=== PATIENT | female | born 1955 | race Caucasian/White ===

== ENCOUNTER 2022-09-27 15:26 | Inpatient (IN) | payer MEDICARE, BC, SELFPAY ==
[2022-09-27] VITALS (8 sets, daily range): BP systolic 96–122; BP diastolic 49–66; PULSE 67–82; RESP 16–19; TEMP 36.7–38.1; O2SAT 95–99; BMI 39.4; BMI 51.1
--- NOTE | 2022-09-27 15:40 | PC.NURSE ---
pt arrived by EMS to ED room 6 via EMS stretcher; upon moving patient to ED stretcher, pt was founf to be on a bedpan that [facility] placed and the patient reports, Evelyn been on it all day. Bedpan was removed. ANGELIQUE Jones and Charge Nurse, Maggie Parra are aware and will assess patients skin shortly. Call carmen within reach
--- NOTE | 2022-09-27 15:43 | PC.NURSE ---
Dr. Gaston at [facility] for patient eval
--- NOTE | 2022-09-27 15:49 | XR_ITS ---
PROCEDURE INFORMATION: Exam: XR Chest Exam date and time: 09/27/2022 4:44 PM Age: 67 years old Clinical indication: Shortness of breath; Additional info: SOA TECHNIQUE: Imaging protocol: Radiologic exam of the chest. Views: 1 view. COMPARISON: CT ABDOMEN PELVIS W CON 09/27/2022 4:35 PM FINDINGS: Lungs: Unremarkable. No consolidation. Pleural spaces: Unremarkable. No pleural effusion. No pneumothorax. Heart/Mediastinum: Unremarkable. No cardiomegaly. Diaphragm: There is elevation of the right hemidiaphragm. Bones/joints: There is diffuse degenerative disease of the visualized osseous structures. IMPRESSION: No acute pathology.
--- NOTE | 2022-09-27 15:49 | CT_ITS ---
PROCEDURE INFORMATION: Exam: CT Abdomen And Pelvis With Contrast Exam date and time: 09/27/2022 4:35 PM Age: 67 years old Clinical indication: Abdominal pain; Additional info: Low abdominal pain, unknown bm status, altered TECHNIQUE: Imaging protocol: Computed tomography of the abdomen and pelvis with contrast. Radiation optimization: All CT scans at this facility use at least one of these dose optimization techniques: automated exposure control; mA and/or kV adjustment per patient size (includes targeted exams where dose is matched to clinical indication); or iterative reconstruction. Contrast material: ISOVUE; Contrast volume: 75 ml; Contrast route: IV; REPORTING DATA: Count of CT and Cardiac NM exams in prior 12 months: This patient has received 0 known CTs and 0 known cardiac nuclear medicine studies in the 12 months prior to the current study. COMPARISON: No relevant prior studies available. FINDINGS: Coronary arteries: There is mild coronary vascular calcification. Liver: Normal. No mass. Gallbladder and bile ducts: There is a large volume of stones within an otherwise normal-appearing gallbladder. Pancreas: Normal. No ductal dilation. Spleen: Normal. No splenomegaly. Adrenal glands: Normal. No mass. Kidneys and ureters: There are large nonobstructing right lower pole intrarenal calculi. There is mild left renal atrophy. Stomach and bowel: Unremarkable. No obstruction. No mucosal thickening. Appendix: No evidence of appendicitis. Intraperitoneal space: Unremarkable. No free air. No significant fluid collection. Vasculature: There is atherosclerotic disease of the visualized aorta and its major branch vessels. Lymph nodes: Unremarkable. No enlarged lymph nodes. Urinary bladder: Unremarkable as visualized. Reproductive: Unremarkable as visualized. Bones/joints: There is diffuse degenerative disease of the visualized osseous structures. Soft tissues: There is diffuse anasarca. There are surgical tacks in the ventral abdominal wall from presumed prior hernia repair. There is a large fat containing ventral abdominal wall hernia inferior to mesh. IMPRESSION: No acute findings. Extensive incidental findings as detailed above.
--- NOTE | 2022-09-27 15:51 | HMH.EDGENADL ---
Discharge Plan Disposition Patient Disposition: Admitted Condition: Fair Prescriptions Prescriptions: No Action metoprolol succinate 50 mg tablet extended release 24 hr 50 mg PO DAILY tramadol 50 mg tablet 50 mg PO Q6HP PRN (Reason: Pain) potassium chloride 20 mEq tablet,ER particles/crystals 20 meq PO DAILY famotidine 20 mg tablet 20 mg PO DAILY furosemide 80 mg tablet 80 mg PO BID meclizine 25 mg tablet 25 mg PO DAILY simvastatin 20 mg tablet 20 mg PO DAILY nystatin [Nyamyc] 100,000 unit/gram powder 1 applic TOPICAL DAILYP PRN (Reason: skin ) nortriptyline 50 mg capsule 50 mg PO HS duloxetine 60 mg capsule,delayed release(DR/EC) 60 mg PO DAILY Eliquis 5 mg tablet 5 mg PO BID sennosides-docusate sodium [Senna-S] 8.6-50 mg Tablet 1 tab-cap PO HS Januvia 50 mg tablet 50 mg PO DAILY Referrals Follow up/Referrals: Fausto Fry MD [Primary Care Provider] - See instructions Clinical Impressions Clinical Impression: Sepsis secondary to UTI, Encephalopathy Discharge ED Provider: Bryson Gaston General Adult HPI General Chief complaint: Shortness of Breath/Dyspnea Stated complaint: SOA Time Seen by Provider: 09/27/22 15:43 Mode of Arrival: EMS Source of Information: Patient and EMS Limitations: No Limitations Description of Symptoms (Recalled from ER Triage Doc. by RN): 67 [facility] F [facility] EMS reprots they were called to facilty for pt not keeping oxygen on and being cyanotic. pts confused and unable to give accurate information. upon arrival pt does appear hypoxic. pt on 4L nc , but decreased to 2L nc with assessment. History of Present Illness HPI narrative: Patient is a 67-year-old female with past medical history of dementia, anticoagulated status, on furosemide and beta-blockers, largely unknown past medical history presents the emergency department for evaluation of lower abdominal pain and shortness of breath. History is obtained largely by EMS report as patient is pleasantly confused. Patient lives in an assisted living community however normally completes her activities of daily living. She was recently diagnosed with a urinary tract infection however has not initiated antibiotic therapy yet. Today patient was found to be hypoxic 81 to 91%. However at baseline she does wear 2 L nasal cannula and EMS noticed that her oxygen concentrator was disconnected. And route patient had oxygen saturations greater than 90% on 2 L nasal cannula. Patient is complaining of lower abdominal pain in the suprapubic area. States that she has a cough of unknown duration. Denies other acute complaints at this time. History is limited by intermittent confusion. When asking assisted living staff they state that she is intermittently confused at baseline however also state that she is alert and oriented. After contacting primary care facility patient has history of hypertensive heart disease, wears 2 L nasal cannula at baseline, was reportedly diagnosed a urinary tract infection approximately 3 days ago for which she has yet to complete therapy. On blood thinner for atrial fibrillation. Related Data Home Medications Medication Instructions Recorded Confirmed apixaban 5 mg tablet (Eliquis) 5 mg PO BID afib- blood thinner 09/27/22 09/27/22 duloxetine 60 mg capsule,delayed 60 mg PO DAILY mood 09/27/22 09/27/22 release famotidine 20 mg tablet 20 mg PO DAILY gerd 09/27/22 09/27/22 furosemide 80 mg tablet 80 mg PO BID Heart Failure 09/27/22 09/27/22 meclizine 25 mg tablet 25 mg PO DAILY vertigo 09/27/22 09/27/22 metoprolol succinate 50 mg 50 mg PO DAILY High Blood Pressure 09/27/22 09/27/22 tablet,extended release 24 hr nortriptyline 50 mg capsule 50 mg PO HS sleep 09/27/22 09/27/22 nystatin 100,000 unit/gram topical 1 applic topical DAILYP PRN skin 09/27/22 09/27/22 powder ([facility]) potassium chloride
--- NOTE | 2022-09-27 15:53 | CT_ITS ---
PROCEDURE INFORMATION: Exam: CT Head Without Contrast Exam date and time: 09/27/2022 4:33 PM Age: 67 years old Clinical indication: Altered mental status/memory loss; Additional info: Encephalopathy, AMS TECHNIQUE: Imaging protocol: Computed tomography of the head without contrast. Radiation optimization: All CT scans at this facility use at least one of these dose optimization techniques: automated exposure control; mA and/or kV adjustment per patient size (includes targeted exams where dose is matched to clinical indication); or iterative reconstruction. REPORTING DATA: Count of CT and Cardiac NM exams in prior 12 months: This patient has received 0 known CTs and 0 known cardiac nuclear medicine studies in the 12 months prior to the current study. COMPARISON: No relevant prior studies available. FINDINGS: Brain: Prominent sulci. Patchy hypodensity of the cerebral white matter which are nonspecific but likely secondary to microangiopathic changes. Cerebral ventricles: The ventricles are prominent secondary to diffuse volume loss/atrophy. Paranasal sinuses: Visualized sinuses are unremarkable. No fluid levels. Mastoid air cells: Visualized mastoid air cells are well aerated. Bones/joints: Unremarkable. No acute fracture. Soft tissues: Unremarkable. IMPRESSION: Chronic age related changes but no evidence of acute intracranial pathology.
[2022-09-27 15:56] LABS: VBG Base Excess 4.8 mmol/L (-2.4-2.3); VBG HCO3 30.3 mmol/L (23-30); VBG Oxygen Saturation 95.5 % (50-70); VBG PH 7.36 mmol/L (7.31-7.41); VBG PO2 85.6 mmol/L (28-40)
[2022-09-27 16:07] LABS: Basophils # 0.1 K/mm3 (0-0.2); Basophils % 0.3 % (0.1-2.0); Eosinophils # 0.1 K/mm3 (0.0-0.4); Eosinophils % 0.4 % (0.1-12.0); Hematocrit 32.9 % (37.0-47.0); Lymphocytes # 0.9 K/mm3 (0.7-4.5); Lymphocytes % 4.6 % (10-50); Mean Corpuscular HGB Conc 30.3 g/dL (31.8-35.4); Mean Corpuscular Hemoglobin 27.2 pg (27.0-31.2); Mean Corpuscular Volume 89.6 fl (81-99); Mean Platelet Volume 8.9 fl (7.4-10.4); Monocytes # 1.8 K/mm3 (0.1-1.0); Monocytes % 9.5 % (1.7-9.3); Neutrophils # 15.8 K/mm3 (1.8-7.8); Neutrophils % 85.1 % (37.0-80.0); Platelet Count 372 K/mm3 (142-424); Red Blood Count 3.67 M/mm3 (4.20-5.40); Red Cell Distribution Width 16.1 % (11.5-17.5); White Blood Count 18.6 K/mm3 (4.8-10.8)
[2022-09-27 16:08] LABS: Alanine Aminotransferase 17 U/L (12-78); Albumin Level 3.2 g/dl (3.5-5.0); Albumin/Globulin Ratio 0.8 (1.1-1.8); Alkaline Phosphatase 234 U/L (38-126); Anion Gap 11.9 mEq/L (5-15); Aspartate Amino Transferase 32 U/L (14-36); Bilirubin,Total 2.6 mg/dl (0.2-1.3); Blood Urea Nitrogen 30 mg/dl (7-17); Calcium 8.6 mg/dl (8.4-10.2); Carbon Dioxide 33 mmol/L (22.0-30.0); Chloride 93 mmol/L (98-107); Creatinine Clearance Estimated 67 mL/min (50-200); Estimated Glomerular Filt Rate 41 ml/min (>60); GFR (African American) 49 ML/MIN (>60); Globulin 4.1 g/dL (1.3-3.2); Glucose 143 mg/dl (74-100); Lactic Acid 1.5 mmol/L (0.7-2.1); Potassium 3.9 mmoL/L (3.5-5.1); Sodium 134 mmol/L (136-145); Total Protein,Serum 7.3 g/dl (6.3-8.2)
--- NOTE | 2022-09-27 16:14 | PC.NURSE ---
Dr. Gaston approves to continue with contrasted ct's with a GFR of 41.
[2022-09-27 16:15] LABS: MANUAL DIFFERENTIAL MANUAL DIFFERENTIAL (MANUAL DIFF)
--- NOTE | 2022-09-27 16:42 | PC.NURSE ---
Pt in CT
[2022-09-27 16:56] LABS: Lymphocytes % 4 % (10-50); Monocytes % 7 % (2-9); Neutrophils % 89 % (42-76); Total Cells Counted 100
[2022-09-27 16:57] LABS: Hypochromasia 1+; Platelet Estimate Normal
--- NOTE | 2022-09-27 17:00 | ECG_ITS ---
APPROVED REPORT Exam: Resting ECG HR:70 bpm ECG Measurements Heart Rate 70 AXES QRSd 104 QRS -21 QT 408 T 89 QTc 429 Conclusion ATRIAL FIBRILLATION INDETERMINATE AXIS LOW QRS VOLTAGE IN PRECORDIAL LEADS [QRS DEFLECTION < 1.0 mV IN CHEST LEADS] PATTERN CONSISTENT WITH PULMONARY DISEASE INCOMPLETE RIGHT BUNDLE BRANCH BLOCK [90+ ms QRS DURATION, TERMINAL R IN V1/V2, 40+ ms S IN I/aVL/V4/V5/V6] NONSPECIFIC ST & T-WAVE ABNORMALITY ABNORMAL ECG UNCONFIRMED REPORT Electronically signed by : Dino Walters MD 09/28/2022 13:52:09
[2022-09-27 17:15] LABS: Appearance,Urine CLOUDY (Clear); Blood, Urine 3+ (Negative); Color,Urine YELLOW (Yellow); Glucose,Urine (UA) Negative (Negative); Ketones,Urine Negative (Negative); Leukocyte Esterase,Urine 2+ (Negative); Microscopic, Urine URINE MICROSCOPIC (MICROSCOPIC); Nitrate,Urine Negative (Negative); PH,Urine 5.5 (5.0-8.5); Protein,Urine TRACE (Negative)
[2022-09-27 17:16] LABS: Bilirubin,Urine 1+ (Negative)
[2022-09-27 17:35] LABS: Bacteria,Urine 2+ /lpf; RBC,Urine 20-50 #/hpf (0-3)
--- NOTE | 2022-09-27 18:47 | PC.NURSE ---
report called to lexy rowe on second floor
[2022-09-27 18:57] LABS: Hemoglobin A1C 6.5 % (4.0-6.0)
--- NOTE | 2022-09-27 18:59 | PC.NURSE ---
came by stretcher from ED
--- NOTE | 2022-09-27 19:47 | PC.WOUNDNOTE ---
stage 2 noted to the buttocks stage 2 noted to the buttocks redness noted to the abdominal fold and ange area
--- NOTE | 2022-09-27 19:58 | EXP.HP ---
History of Present Illness *Admission Date: 09/27/22 *Reason for visit:: UTI *History of present illness: 67 year old female presented to the ED for confusion. Pt was dx three days prior with UTI without starting antibotic coverage. PMHX of DM, a-fib, CHF, HTN, HLD, and chronic lower back pain. The daughter states the patient has had 10 UTI's this year. The pt is coming from [facility]. The family had planned to take the patient home within the next couple of weeks. Other than confusion and lower abd pain, the patient had a fever of 100.6 and leukocytosis of 18.6. Her Ua is positive for nitrates and WBC's. The ED physician spoke with the hospitalist team for further admission. The patient was admitted to the medical floor for further medical management. Urine culture is pending. She will continue to be treated with ceftriaxone and azithromycin. She has a slight WALE with a creatinine of 1.30. She received gentle hydration upon arrival to the floor due to hx of fluid overload and pitting edema. [facility] Disclaimer: The information contained in this section may have been updated after the patient was seen, as this information can be updated by other users. Medical History (Updated 09/28/22 @ 14:57 by Brandon Oconnor MD) Acute kidney failure Atrial fibrillation CHF (congestive heart failure) Constipation Depression Diabetes mellitus type 2 in obese GERD (gastroesophageal reflux disease) Heart disease High blood pressure Oxygen dependent Family History (Updated 09/27/22 @ 20:09 by Jeannette Moran RN) Family history of cancer Social History (Updated 09/27/22 @ 20:09 by Jeannette Moran RN) Smoking Status: Former smoker alcohol intake: never current occupational status: unemployed Travel in the last 8 weeks: None Review of Systems Review of Systems Review of systems:: pertinent systems reviewed and negative unless documented below Constitutional Constitutional: Reports fever(s) Eyes Eyes: Reports system reviewed and no additional complaints, except as documented ENT Ears, Nose, Mouth, and Throat: Reports system reviewed and no additional complaints, except as documented *Cardiovascular Cardiovascular: Reports system reviewed and no additional complaints, except as documented and Reports dyspnea *Respiratory Respiratory: Reports system reviewed and no additional complaints, except as documented and Reports dyspnea *Gastrointestinal Gastrointestinal: Reports system reviewed and no additional complaints, except as documented *Genitourinary Genitourinary: Reports pelvic pain *Musculoskeletal Musculoskeletal: Reports system reviewed and no additional complaints, except as documented Integumentary/Breasts Skin/Breast: Reports system reviewed and no additional complaints, except as documented *Neurologic Neurologic: Reports as per HPI Psychiatric Psychiatric: Reports system reviewed and no additional complaints, except as documented Endocrine Endocrine: Reports system reviewed and no additional complaints, except as documented Meds Home Medications and Allergies Home Medications Medication Instructions Recorded Confirmed Type apixaban 5 mg tablet (Eliquis) 5 mg PO BID afib- blood thinner 09/27/22 09/27/22 History duloxetine 60 mg capsule,delayed 60 mg PO DAILY mood 09/27/22 09/27/22 History release famotidine 20 mg tablet 20 mg PO DAILY PRN Acid Reflux 09/27/22 09/27/22 History furosemide 80 mg tablet 80 mg PO BID PRN Heart Failure / 09/27/22 09/27/22 History swelling meclizine 25 mg tablet 25 mg PO DAILY vertigo 09/27/22 09/27/22 History metoprolol succinate 50 mg 50 mg PO DAILY High Blood Pressure 09/27/22 09/27/22 History tablet,extended release 24 hr nortriptyline 50 mg capsule 50 mg PO HS sleep 09/27/22 09/27/22 History nystatin 100,000 unit/gram topical 1 applic topical DAILYP PRN Skin 09/27/22 09/27/22 History powder (Nyamyc) Irritation potassium chloride 20 mEq 20 meq PO DAILY Supplement
[2022-09-27 21:54] LABS: POC Glucose,Bedside 152 (70-110)
[2022-09-28] VITALS: BP 117/62; PULSE 67; RESP 20; TEMP 37.3; O2SAT 95
[2022-09-28 04:00] VITALS: BP 108/59; PULSE 78; RESP 22; TEMP 37.6; O2SAT 96; BMI 51.0
[2022-09-28 05:59] LABS: POC Glucose,Bedside 105 (70-110)
[2022-09-28 07:16] LABS: Basophils # 0.1 K/mm3 (0-0.2); Basophils % 0.4 % (0.1-2.0); Eosinophils # 0.1 K/mm3 (0.0-0.4); Eosinophils % 0.9 % (0.1-12.0); Hematocrit 30.6 % (37.0-47.0); Hemoglobin 9.6 g/dL (12.2-16.2); Lymphocytes % 6.4 % (10-50); Mean Corpuscular HGB Conc 31.3 g/dL (31.8-35.4); Mean Corpuscular Hemoglobin 28.1 pg (27.0-31.2); Mean Corpuscular Volume 89.8 fl (81-99); Mean Platelet Volume 8.5 fl (7.4-10.4); Monocytes # 1.5 K/mm3 (0.1-1.0); Monocytes % 9.6 % (1.7-9.3); Neutrophils % 82.8 % (37.0-80.0); Platelet Count 337 K/mm3 (142-424); White Blood Count 15.7 K/mm3 (4.8-10.8)
[2022-09-28 07:24] LABS: Chloride 93 mmol/L (98-107); Potassium 3.3 mmoL/L (3.5-5.1); Sodium 134 mmol/L (136-145)
[2022-09-28 07:27] LABS: Alanine Aminotransferase 15 U/L (12-78); Albumin Level 2.7 g/dl (3.5-5.0); Albumin/Globulin Ratio 0.7 (1.1-1.8); Alkaline Phosphatase 236 U/L (38-126); Anion Gap 11.3 mEq/L (5-15); Aspartate Amino Transferase 28 U/L (14-36); Bilirubin,Total 1.7 mg/dl (0.2-1.3); Blood Urea Nitrogen 27 mg/dl (7-17); Calcium 8.8 mg/dl (8.4-10.2); Carbon Dioxide 33 mmol/L (22.0-30.0); Creatinine Clearance Estimated 42 mL/min (50-200); Estimated Glomerular Filt Rate 49 ml/min (>60); GFR (African American) 60 ML/MIN (>60); Globulin 3.8 g/dL (1.3-3.2); Glucose 86 mg/dl (74-100); Total Protein,Serum 6.5 g/dl (6.3-8.2)
[2022-09-28 07:28] LABS: Magnesium 1.9 mg/dl (1.6-2.3)
[2022-09-28 07:32] LABS: MANUAL DIFFERENTIAL MANUAL DIFFERENTIAL (MANUAL DIFF)
[2022-09-28 08:00] VITALS: BP 100/54; PULSE 78; RESP 22; TEMP 36.7; O2SAT 89; O2SAT 98
[2022-09-28 08:39] LABS: Lymphocytes % 7 % (10-50); Monocytes % 6 % (2-9); Neutrophils % 87 % (42-76); Total Cells Counted 100
[2022-09-28 08:40] LABS: Platelet Estimate Normal; RBC Morphology Normal
--- NOTE | 2022-09-28 08:47 | HMH.PHAINT1 ---
Pharmacy Intervention Comments: Medication history complete, all medications verified with facility list. - Maya Da Silva, PharmD Candidate 2023
--- NOTE | 2022-09-28 10:03 | INFXCTL.NOTE ---
Tried to call [facility] to get more information on the patient's stay there and how long. Asked to call back later.
[2022-09-28 10:12] VITALS: BMI 51.0
--- NOTE | 2022-09-28 10:28 | DIET.NUTRFU ---
RD consulted on patient d/t Sang score and pressure of stage II pressure ulcer present on admit. Pt states that she was living at home prior to a hospital admission 3 weeks prior d/t BLE swelling and then was discharged to [facility] where she has been staying since then. Pt reports poor intake over the last 2 days and lack of appetite d/t abdominal pain. Pt reports that appetite is significantly better this morning and she completed 25% of breakfast. Pt continues to experience some abdominal pain. Pitting edema in BLE noted. Pt denies N/V, issues with chewing/swallowing. Pt reports constipation prior to admission but multiple BM since. Bowel regimen noted. A1c 6.5, albumin 2.7. Educated pt on importance of consuming protein to aid in wound healing. Will provide 1 chocolate glucerna per day to align with pt preferences and aid in meeting protein and energy needs. Educated pt on carb counting and optimal sources of carbohydrates to align with diabetic diet.
[2022-09-28 10:53] LABS: POC Glucose,Bedside 134 (70-110)
[2022-09-28 12:00] VITALS: BP 100/50; PULSE 81; RESP 24; TEMP 36.6; O2SAT 82
--- NOTE | 2022-09-28 13:26 | SW/DCPLANNER ---
Addendum entered by Kacey Ho 09/29/22 11:35: Per Vinnie and Carlos at [facility] the plan for this patient is to return to [facility] pay today. I have updated MD and patient's family regarding plan. Addendum entered by Kacey Ho 09/29/22 08:51: Carlos w/ [facility] stated that she will now have a bed avaiable at [facility]. Carlos is going to speak with side and I will follow up with her after rounds today regarding possible discharge date. Addendum entered by Kacey Ho 09/28/22 14:54: PT/OT stated that patient will need SNF level of care at time of discharge. Per daughter's request patient information has been faxed to Carlos mckoy/ [facility] and [facility]. Addendum entered by Kacey Ho 09/28/22 13:51: I spoke with patient's daughter (Ayesha): if patient is unable to return to [facility] due to no beds they prefer [facility] facilities in [place], [facility], [facility] or [facility]. I will continue to follow up with PT/OT and [facility]. Original Note: Patient currently resides at [facility] private pay. Per [facility] patient was skilled but has exhausted all Medicare skilled days. I am currently waiting to hear back from [facility] regarding skilled dates at [facility]. PT/OT has been ordered to evaluate patient and I will follow up once completed. Discharge date is unknown at this time.
--- NOTE | 2022-09-28 13:56 | HMH.PTEV ---
Physical Therapy Evaluation Rehab PT IP Evaluation Start: 09/28/22 10:07 Freq: ONCE Status: Active Protocol: Document 09/28/22 13:54 PHOTANNER (Rec: 09/28/22 13:56 PHORNE [id number]) Subjective/History History History 67 yowf adm to [facility] with UTI and hypoxia. Hx of DM, a-fib, CHF, HTN, HLD, and chronic lower back pain. She reports she was staying in [place], but living situation is unclear and no family present for corroboration. She presents upon adm with Bhavya thompson PI. Subjective Subjective Pt reports no c/o at this time . Rehab PT IP Eval Objective Appearance Patient Behavior Appropriate Patient Orientation Person,Place Difficulty following instructions none Speech Pattern Clear Ambulation Patient Able to Ambulate No Balance Ability to Arise Able, uses arms to help Sitting Balance Leans or slides in chair Standing Balance Unsteady Dynamic Sitting Balance Ability Fair Dynamic Standing Balance Ability Fair Transfers Bed Transfer Ability Moderate x 2 (50% assist) Chair Transfer Ability Moderate x 2 (50% assist) Sit to Stand Bed Transfer Ability Moderate x 2 (50% assist) Sit to Stand Chair Transfer Ability Moderate x 2 (50% assist) Rehab PT IP prob,goals,plan Problems Date of Evaluation: 09/28/22 PT IP Problems Bed Mobility,Transfers,Gait Rehab Potential Rehab Potential Good Plan PT Intervention Plan Bed Mobility,Transfers,Gait, Therapeutic Exercise PT Plan Frequency Daily Duration LOS Discharge Goals Bed Transfer Ability Moderate x 1 (50% assist) Sit to Stand Chair Transfer Ability Moderate x 1 (50% assist) Discharge Plan PT Discharge Plan Pt is currently most appropriate for rehab placement once medically stable for d/c. G -code Required No Eval Complexity Eval Charge Codes 02145 - High Complexity PHYSICIAN CERTIFICATION: I certify the specified therapy services for Rica Flannery are required, authorized, and reviewed every 30 days.
--- NOTE | 2022-09-28 13:57 | HMH.OTEV ---
OT Inpatient Evaluation Rehab OT IP Evaluation Start: 09/28/22 10:07 Freq: ONCE Status: Active Protocol: Document 09/28/22 13:52 RADHALIVINGSTON (Rec: 09/28/22 13:57 [facility] [id number]) Rehab OT IP Assessment Subjective History Pt oriented x 2 on arrival. Pt agreeable to engage in therapy evaluation. Pt is a 67 year old female presented to the ED for confusion. Pt was dx three days prior with UTI without starting antibotic coverage. PMHX of DM, a-fib, CHF, HTN, HLD, and chronic lower back pain. The daughter states the patient has had 10 UTI's this year. The pt is coming from [facility]. The family had planned to take the patient home within the next couple of weeks. Other than confusion and lower abd pain, the patient had a fever of 100.6 and leukocytosis of 18.6. Her Ua is positive for nitrates and WBC's. Pt admitted on 09/27 due to a UTI. Pt reports prior to being in the hospital she was in rehab at [place]. Pt claims she was independent with dressing and feeding. She did require some assistance with bathing from staff. She was tranferring with a rolling walker. Pt dependent upon staff for completion of all IADLs. Subjective I haven't stood since yesterday. Objective Patient Orientation Person,Place,Birthday Upper Extremity Gross ROM WFL Bed Mobility bed mobility-scooting,bed mobility - supine/sit,bed mobility - rolling Assist Level Moderate x 2 (50% assist) Transfer Training Sit/Stand/Pivot Transfer Assist Level Moderate x 2 (50% assist) Rehab OT IP prob,goals,plan Problems Date of Evaluation: 09/28/22 OT IP Problems Bed Mobility,Transfers,Balance ,Self care,Safety Rehab Potential Reha
--- NOTE | 2022-09-28 14:37 | EXP.ACUTE.PN ---
Subjective *Date: 09/28/22 *Time: 14:37 Interval history: Around this morning, patient more interactive. Told me who she is and that she is at the hospital. Did not know what hospital. Stated she lives on [address] but has been in rehab for 2 weeks. Per chart review, she has been in the personal-care side of [facility] for the past month, prior to that was admitted to [facility] for skilled therapy for several months. Does not know why she is at the hospital. States she wears oxygen because it made her feel better. Does not recall any history of heart problems or lung problems. Is afebrile and hemodynamically stable. Medical Exam Vital signs and Labs for Last 24 Hours: Vital Signs Temp Pulse Pulse Resp BP BP Pulse Ox 09/28/22 12:00 97.8 F 81 24 100/50 L 82 L 09/28/22 12:41 09/28/22 12:40 09/28/22 10:41 09/28/22 08:00 98 09/28/22 08:00 98.1 F 78 22 100/54 L 89 L 09/28/22 09:00 09/28/22 04:00 99.6 F 78 22 108/59 L 96 09/28/22 06:41 09/28/22 05:00 09/28/22 03:00 09/28/22 01:00 09/28/22 00:00 99.1 F 67 20 117/62 95 09/27/22 22:55 09/27/22 21:00 09/27/22 20:00 98.3 F 67 18 122/50 L 98 09/27/22 20:00 98 09/27/22 19:00 09/27/22 19:15 98.3 F 67 18 122/50 L 98 09/27/22 18:51 98.0 F 69 16 100/49 L 09/27/22 17:30 76 98/52 L 95 09/27/22 17:02 103/60 L 09/27/22 17:00 76 96/50 L 95 09/27/22 16:00 82 109/66 L 96 09/27/22 15:32 100.6 F H 74 19 112/66 99 O2 Del Method O2 Flow Rate 09/28/22 12:00 Room Air 09/28/22 12:41 Room Air 09/28/22 12:40 Room Air 09/28/22 10:41 Nasal Cannula 2 09/28/22 08:00 Nasal Cannula 2 09/28/22 08:00 Room Air 09/28/22 09:00 Nasal Cannula 2 09/28/22 04:00 Nasal Cannula 4 09/28/22 06:41 Room Air 09/28/22 05:00 Nasal Cannula 2 09/28/22 03:00 Nasal Cannula 2 09/28/22 01:00 Nasal Cannula 2 09/28/22 00:00 Room Air 09/27/22 22:55 Nasal Cannula 2 09/27/22 21:00 Nasal Cannula 2 09/27/22 20:00 Nasal Cannula 2 09/27/22 20:00 Nasal Cannula 2 09/27/22 19:00 Nasal Cannula 2 09/27/22 19:15 Nasal Cannula 2 09/27/22 18:51 09/27/22 17:30 09/27/22 17:02 09/27/22 17:00 09/27/22 16:00 09/27/22 15:32 Nasal Cannula Intake and Output 09/27/22 09/28/22 09/28/22 23:59 07:59 15:59 Intake Total 240 / 480 240 / 480 Output Total 300 / 300 0 / 300 Balance -60 / 180 240 / 180 Intake: Intake, Oral Amount 240 / 480 240 / 480 Output: Output, Urine Amount 300 / 300 0 / 300 Other: Number of Unmeasured Voids 0 1 Number of Bowel Movements 1 1 1 Weight 135.227 kg 135.488 kg 135.488 kg Patient Weight 09/28/22 23:59 Weight 135.488 kg Laboratory Results - last 24 hr 09/27/22 15:25: WBC 18.6 H, RBC 3.67 L, Hgb 10.0 L, Hct 32.9 L, MCV 89.6, MCH 27.2, MCHC 30.3 L, RDW 16.1, Plt Count 372, MPV 8.9, Neut % (Auto) 85.1 H, Lymph % (Auto) 4.6 L, Chester % (Auto) 9.5 H, Eos % (Auto) 0.4, Baso % (Auto) 0.3, Neut # (Auto) 15.8 H, Lymph # (Auto) 0.9, Chester # (Auto) 1.8 H, Eos # (Auto) 0.1, Baso # (Auto) 0.1, Total Counted 100, Neutrophils % (Manual) 89 H, Lymphocytes % (Manual) 4 L, Monocytes % (Manual) 7, Platelet Estimate Normal, Hypochromasia 1+, Sodium 134 L, Potassium 3.9, Chloride 93 L, Carbon Dioxide 33 H, Anion Gap 11.9, BUN 30 H, Creatinine 1.30 H, Estimated Creat Clear 67, Estimated GFR 41 L, Est GFR ( Amer) 49 L, Glucose 143 H, Hemoglobin A1c 6.5 H, Lactate 1.5, Calcium 8.6, Total Bilirubin 2.6 H, AST 32, ALT 17, Alkaline Phosphatase 234 H, Total Protein 7.3, Albumin 3.2 L, Globulin 4.1 H, Albumin/Globulin Ratio 0.8 L 09/27/22 15:49: VBG pH 7.36, VBG pCO2 55.0 H, VBG pO2 85.6 H, VBG HCO3 30.3 H, VBG Total CO2 32.0 H, VBG O2 Saturation 95.5 H, VBG Base Excess 4.8 H 09/27/22 16:45: Urine Color Yellow, Urine Appearance Cloudy, Urine pH 5.5, Ur Specific Gr
[2022-09-28 15:05] LABS: NT Pro Brain Natriuretic Pep. 8280 pg/mL (0-125)
[2022-09-28 16:00] VITALS: BP 107/61; PULSE 84; RESP 22; TEMP 36.7; O2SAT 98
[2022-09-28 16:41] LABS: POC Glucose,Bedside 117 (70-110)
[2022-09-28 20:00] VITALS: BP 118/67; PULSE 84; RESP 18; TEMP 37.1; O2SAT 100
[2022-09-28 20:30] LABS: POC Glucose,Bedside 127 (70-110)
--- NOTE | 2022-09-28 21:54 | PC.NURSE ---
[employer] notified of patient complaint pain in BLEs also shins reddened and warm, chronic edema. medicated with tramadol 50 mg po at 1999 and medicated with tylenol 650 mg po now.
--- NOTE | 2022-09-28 22:25 | PC.NURSE ---
Nortryptiline ordered but not available at this time. Patient states will have daughter bring her medicine in tomorrow. Offered to call the N.P. for something else and patient declined.
[2022-09-29] VITALS: BP 111/55; PULSE 83; RESP 18; TEMP 37.2; O2SAT 93
[2022-09-29 04:00] VITALS: BP 106/71; PULSE 78; RESP 18; TEMP 37.1; O2SAT 98; BMI 50.8
[2022-09-29 05:19] LABS: POC Glucose,Bedside 120 (70-110)
[2022-09-29 06:30] LABS: Basophils # 0.1 K/mm3 (0-0.2); Basophils % 0.5 % (0.1-2.0); Eosinophils # 0.5 K/mm3 (0.0-0.4); Eosinophils % 4.3 % (0.1-12.0); Hematocrit 33.2 % (37.0-47.0); Lymphocytes # 1.1 K/mm3 (0.7-4.5); Lymphocytes % 8.8 % (10-50); Mean Corpuscular HGB Conc 30.2 g/dL (31.8-35.4); Mean Corpuscular Hemoglobin 27.3 pg (27.0-31.2); Mean Corpuscular Volume 90.7 fl (81-99); Mean Platelet Volume 8.5 fl (7.4-10.4); Monocytes # 1.2 K/mm3 (0.1-1.0); Neutrophils # 9.5 K/mm3 (1.8-7.8); Neutrophils % 76.4 % (37.0-80.0); Platelet Count 339 K/mm3 (142-424); Red Blood Count 3.66 M/mm3 (4.20-5.40); White Blood Count 12.4 K/mm3 (4.8-10.8)
[2022-09-29 06:38] LABS: Chloride 93 mmol/L (98-107); Sodium 133 mmol/L (136-145)
[2022-09-29 06:39] LABS: Potassium 3.1 mmoL/L (3.5-5.1)
[2022-09-29 06:41] LABS: Alanine Aminotransferase 15 U/L (12-78); Albumin Level 2.6 g/dl (3.5-5.0); Albumin/Globulin Ratio 0.7 (1.1-1.8); Alkaline Phosphatase 247 U/L (38-126); Anion Gap 9.1 mEq/L (5-15); Aspartate Amino Transferase 25 U/L (14-36); Bilirubin,Total 1.3 mg/dl (0.2-1.3); Blood Urea Nitrogen 24 mg/dl (7-17); Calcium 8.6 mg/dl (8.4-10.2); Carbon Dioxide 34 mmol/L (22.0-30.0); Creatinine Clearance Estimated 46 mL/min (50-200); Estimated Glomerular Filt Rate 62 ml/min (>60); GFR (African American) 75 ML/MIN (>60); Globulin 3.6 g/dL (1.3-3.2); Glucose 97 mg/dl (74-100); Total Protein,Serum 6.2 g/dl (6.3-8.2)
[2022-09-29 06:42] LABS: Magnesium 1.7 mg/dl (1.6-2.3)
[2022-09-29 07:26] VITALS: O2SAT 99
[2022-09-29 08:00] VITALS: BP 123/61; PULSE 77; RESP 18; TEMP 36.8; O2SAT 98
--- NOTE | 2022-09-29 11:32 | EXP.DC.SUM ---
General Admission date:: 09/27/22 Discharge date: 09/29/22 HPI HPI HPI: 67 year old female presented to the ED for confusion. Pt was dx three days prior with UTI without starting antibotic coverage. PMHX of DM, a-fib, CHF, HTN, HLD, and chronic lower back pain. The daughter states the patient has had 10 UTI's this year. The pt [place] [facility] The family had planned to take the patient home within the next couple of weeks. Other than confusion and lower abd pain, the patient had a fever of 100.6 and leukocytosis of 18.6. Her Ua is positive for nitrates and WBC's. The ED physician spoke with the hospitalist team for further admission. The patient was admitted to the medical floor for further medical management. Urine culture is pending. She will continue to be treated with ceftriaxone and azithromycin. She has a slight WALE with a creatinine of 1.30. She received gentle hydration upon arrival to the floor due to hx of fluid overload and pitting edema. Hospital Course Hospital Course Hospital Course: 67 year old female presented to the ED for confusion. Pt was dx three days prior with UTI without starting antibiotic coverage. The daughter states the patient has had 10 UTI's this year. The pt is coming [place] [facility] where she was on the personal-care side. During hospitalization, concern for UTI. Mentation improved. Kidney function also improved. Adjustments made to medication regimen for fluid status and treatment of UTI. Stable for discharge to skilled therapy. Problems addressed as follows: UTI Toxic encephalopathy WALE -dx three days prior with UTI without starting antibiotic coverage. Daughter states the patient has had 10 UTI's this year. Started on ceftriaxone. Some improvement in mentation. Encephalopathy likely secondary to her infection. Additionally patient found to have yeast infection and was started on nystatin powder as needed. Urinalysis is grossly abnormal. Urine culture still pending at discharge, being speciated out at this time. Will continue to follow. Transition to cefdinir to complete 7 days of antibiotics. In regard to patient's UTIs and kidney function, would avoid Bactrim in the future as this can cause significant worsening of her kidney function. Of note her creatinine was 1.3 on admission. Improved to 0.9 by day of discharge. Suspect secondary to combination of medications and volume status along with her infection. Resumed diuretic. Transitioned to Bactrim for improved diuresis effect. Continue with Bactrim 1 mg daily with an additional 1 mg dose as needed for weight gain greater than 3 pounds or increased oxygen requirement worrisome for volume overload. -Of note, CT was obtained of her head on evaluation. No acute trauma or changes. Patient alert and oriented x 2 daily. This appears to be her baseline mentation. -Reviewed patient's previous records from showing E. coli UTIs in the past sensitive to cephalosporins. DM -Sliding scale insulin during hospitalization. Patient's A1c is 6.5. Given her entities and current ADA guidelines, recommend A1c less than 8. At this recommend resume her Januvia discharge. HLD HTN Combined CHF A-FIB CHRONIC LOWER BACK PAIN -continue home apixaban. -resume home metoprolol -continue Statin at DC - Resumed tramadol. Discontinued nortriptyline and meclizine. -Was able to review patient's records from . Echo performed in April shows reduced ejection fraction at 40 to 50%. Has moderately elevated RVSP 69 mmHg. -Adjusted her diuretic regimen during admission. Continue Bumex 1 mg daily to maintain euvolemic status. Would benefit from additional dose of 1 mg in the afternoon if patient shows weight gain of more than 3 pounds or increased oxygen requirement suggesting volume overload. -Patient needs repeat labs in 1 week. Please obtain CMP and magnesium to monitor electrolytes, liver function, and kidney function. -Continue stubbs
[2022-09-29 11:43] VITALS: BP 126/63; PULSE 59; RESP 20; TEMP 36.9; O2SAT 98
[2022-09-29 11:45] LABS: POC Glucose,Bedside 143 (70-110)
--- NOTE | 2022-09-29 12:30 | PC.NURSE ---
Report called to [facility].
--- NOTE | 2022-09-29 12:50 | PC.NURSE ---
Family to moss picker the patient today around 16:00.
--- NOTE | 2022-09-29 15:39 | EXP.DC.SUM ---
General Admission date:: 09/27/22 HPI HPI HPI: 67 year old female presented to the ED for confusion. Pt was dx three days prior with UTI without starting antibotic coverage. PMHX of DM, a-fib, CHF, HTN, HLD, and chronic lower back pain. The daughter states the patient has had 10 UTI's this year. The pt is coming from [facility]. The family had planned to take the patient home within the next couple of weeks. Other than confusion and lower abd pain, the patient had a fever of 100.6 and leukocytosis of 18.6. Her Ua is positive for nitrates and WBC's. The ED physician spoke with the hospitalist team for further admission. The patient was admitted to the medical floor for further medical management. Urine culture is pending. She will continue to be treated with ceftriaxone and azithromycin. She has a slight WALE with a creatinine of 1.30. She received gentle hydration upon arrival to the floor due to hx of fluid overload and pitting edema. Exam Data for Last 24 hours Vital signs and Labs for Last 24 Hours: Temp Pulse Resp BP Pulse Ox O2 Del Method O2 Flow Rate 98.5 F 59 L 20 126/63 98 Nasal Cannula 2.5 09/29/22 11:43 09/29/22 11:43 09/29/22 11:43 09/29/22 11:43 09/29/22 11:43 09/29/22 11:43 09/29/22 11:43 Laboratory Results - last 24 hr 09/28/22 16:33: POC Glucose 117 H 09/28/22 20:23: POC Glucose 127 H 09/29/22 05:12: POC Glucose 120 H 09/29/22 05:45: WBC 12.4 H, RBC 3.66 L, Hgb 10.0 L, Hct 33.2 L, MCV 90.7, MCH 27.3, MCHC 30.2 L, RDW 16.0, Plt Count 339, MPV 8.5, Neut % (Auto) 76.4, Lymph % (Auto) 8.8 L, Ripley % (Auto) 10.0 H, Eos % (Auto) 4.3, Baso % (Auto) 0.5, Neut # (Auto) 9.5 H, Lymph # (Auto) 1.1, Ripley # (Auto) 1.2 H, Eos # (Auto) 0.5 H, Baso # (Auto) 0.1, Sodium 133 L, Potassium 3.1 L, Chloride 93 L, Carbon Dioxide 34 H, Anion Gap 9.1, BUN 24 H, Creatinine 0.90, Estimated Creat Clear 46, Estimated GFR 62, Est GFR ( Amer) 75 D, Glucose 97, Calcium 8.6, Magnesium 1.7 D, Total Bilirubin 1.3, AST 25, ALT 15, Alkaline Phosphatase 247 H, Total Protein 6.2 L, Albumin 2.6 L, Globulin 3.6 H, Albumin/Globulin Ratio 0.7 L 09/29/22 11:37: POC Glucose 143 H I & O for Last 24 hours: Intake & Output 09/26/22 09/27/22 09/28/22 09/29/22 23:59 23:59 23:59 23:59 Intake Total 1250 / 1250 860 / 860 Output Total 700 / 1200 850 / 850 Balance 550 / 50 10 / 10 Weight 135.227 kg 135.488 kg 135.171 kg Microbiology Reports for the Last 24 Hours: Microbiology 09/27/22 16:45 Urine,Catheterized Urine Culture - Preliminary Results Data Completed and Pending Labs on day of discharge: Labs from last 24 hours 09/29/22 09/29/22 09/29/22 11:37 05:45 05:12 WBC 12.4 H RBC 3.66 L Hgb 10.0 L Hct 33.2 L MCV 90.7 MCH 27.3 MCHC 30.2 L RDW 16.0 Plt Count 339 MPV 8.5 Neut % (Auto) 76.4 Lymph % (Auto) 8.8 L Ripley % (Auto) 10.0 H Eos % (Auto) 4.3 Baso % (Auto) 0.5 Neut # (Auto) 9.5 H Lymph # (Auto) 1.1 Ripley # (Auto) 1.2 H Eos # (Auto) 0.5 H Baso # (Auto) 0.1 Sodium 133 L Potassium 3.1 L Chloride 93 L Carbon Dioxide 34 H Anion Gap 9.1 BUN 24 H Creatinine 0.90 Estimated Creat Clear 46 Estimated GFR 62 Est GFR ( Amer) 75 D Glucose 97 POC Glucose 143 H 120 H Calcium 8.6 Magnesium 1.7 D Total Bilirubin 1.3 AST 25 ALT 15 Alkaline Phosphatase 247 H Total Protein 6.2 L Albumin 2.6 L Globulin 3.6 H Albumin/Globulin Ratio 0.7 L 09/28/22 09/28/22 20:23 16:33 WBC RBC Hgb Hct MCV MCH MCHC RDW Plt Count MPV Neut % (Auto) Lymph % (Auto) Ripley % (Auto) Eos % (Auto) Baso % (Auto) Neut # (Auto) Lymph # (Auto) Ripley # (Auto) Eos # (Auto) Baso # (Auto) Sodium Potassium Chloride Carbon Dioxide Anion Gap BUN Creatinine Estimated Creat Clear Estimated GFR Est GFR ( Amer)
--- NOTE | 2022-10-01 12:16 | EXP.EVENT.NO ---
Urine culture returned positive for E faecalis. Sensitive to amoxicillin. Sent 875 mg twice daily for 5 days. Discontinue cefdinir. Contacted [facility] and inform them to change medication.
== END 2022-09-29 16:35 | DRG 291 ==
LOC: ER 18:19 → 2ND 18:52
PROVIDERS: Admitting Provider Internal Medicine Adolescent Medicine; Emergency Provider Emergency Medicine; PCP Emergency Medicine; Visit Provider Internal Medicine Adolescent Medicine
DX: I11.0 Hypertensive heart disease with heart failure (principal); G92.9 Unspecified toxic encephalopathy; I50.43 Acute on chronic combined systolic (congestive) and diastolic (congestive) heart failure; N39.0 Urinary tract infection, site not specified; N17.9 Acute kidney failure, unspecified; Z68.43 Body mass index [BMI] 50.0-59.9, adult; I48.21 Permanent atrial fibrillation; I48.91 Unspecified atrial fibrillation; Z99.81 Dependence on supplemental oxygen; K21.9 Gastro-esophageal reflux disease without esophagitis; E11.9 Type 2 diabetes mellitus without complications; Z87.891 Personal history of nicotine dependence; E11.69 Type 2 diabetes mellitus with other specified complication; E66.9 Obesity, unspecified; E78.5 Hyperlipidemia, unspecified; M54.50 Low back pain, unspecified; G89.29 Other chronic pain; B96.89 Other specified bacterial agents as the cause of diseases classified elsewhere
CPT/HCPCS: 36415; 70450; 71045; 74177; 80053; 81001; 82803; 82962; 83036; 83605; 83735; 83880; 85007; 85025; 87040; 87086; 87088; 87186; 93005; 94760; 94761; 97163; 97166; 97530; 97535; 99285; J0131; J0456; J0696; Q9967

== ENCOUNTER → 2022-10-19 09:38 | Outpatient (CLI) | payer MEDICARE, BC, SELFPAY ==
--- NOTE | 2022-10-19 09:43 | XR_ITS ---
FINAL REPORT TECHNIQUE: Chest PA & Lateral CLINICAL HISTORY: Nonspecific cough COMPARISON: 09/27/2022 FINDINGS: 2 views of the chest were performed. The heart size is enlarged. The mediastinum is within normal limits. There are mild chronic changes in the lungs. There is a small to moderate right pleural effusion. There is no pneumothorax. The bony thorax appears intact. IMPRESSION: Small to moderate right pleural effusion with chronic changes in the lungs. Reviewed, Interpreted and Dictated by Zac Walsh MD Transcribed by Rula Mackenzie Authenticated and [facility]
[2022-10-19 10:40] LABS: Basophils # 0.1 K/mm3 (0-0.2); Basophils % 0.8 % (0.1-2.0); Eosinophils # 0.3 K/mm3 (0.0-0.4); Eosinophils % 2.6 % (0.1-12.0); Hematocrit 39.2 % (37.0-47.0); Lymphocytes # 1.7 K/mm3 (0.7-4.5); Lymphocytes % 17.8 % (10-50); Mean Corpuscular HGB Conc 30.6 g/dL (31.8-35.4); Mean Corpuscular Hemoglobin 28.5 pg (27.0-31.2); Mean Corpuscular Volume 93.2 fl (81-99); Mean Platelet Volume 9.7 fl (7.4-10.4); Monocytes # 0.7 K/mm3 (0.1-1.0); Neutrophils # 6.6 K/mm3 (1.8-7.8); Neutrophils % 70.7 % (37.0-80.0); Platelet Count 368 K/mm3 (142-424); Red Cell Distribution Width 15.8 % (11.5-17.5); White Blood Count 9.3 K/mm3 (4.8-10.8)
[2022-10-19 10:56] LABS: Alanine Aminotransferase 16 U/L (12-78); Albumin Level 3.4 g/dl (3.5-5.0); Alkaline Phosphatase 295 U/L (38-126); Anion Gap 17.1 mEq/L (5-15); Aspartate Amino Transferase 29 U/L (14-36); Bilirubin,Direct 0.4 mg/dl (0.0-0.4); Bilirubin,Indirect 0.8 mg/dL (0.0-0.9); Bilirubin,Total 1.2 mg/dl (0.2-1.3); Bilirubin,Unconjugated 0.8 mg/dL (0.0-1.1); Blood Urea Nitrogen 14 mg/dl (7-17); Calcium 9.1 mg/dl (8.4-10.2); Carbon Dioxide 31 mmol/L (22.0-30.0); Chloride 95 mmol/L (98-107); Chol/HDL Ratio 4.4 (1-3.5); Cholesterol 122 mg/dl (140-200); Estimated Glomerular Filt Rate 71 ml/min (>60); GFR (African American) 86 ML/MIN (>60); Glucose 125 mg/dl (74-100); HDL Cholesterol 28 mg/dl (40-60); Magnesium 1.6 mg/dl (1.6-2.3); Potassium 4.1 mmoL/L (3.5-5.1); Sodium 139 mmol/L (136-145); Total Protein,Serum 7.7 g/dl (6.3-8.2); Triglycerides 90 mg/dl (30-150); VLDL Cholesterol 18 mg/dL (0-40)
[2022-10-19 11:10] LABS: Direct LDL Cholesterol 65.12 mg/dL (100-129)
[2022-10-19 11:17] LABS: Free T4 (Free Thyroxine) 1.74 ng/dl (0.78-2.19)
[2022-10-19 11:26] LABS: Thyroid Stimulating Hormone 3.05 uIU/mL (0.465-4.68)
== END ==
PROVIDERS: PCP Family Medicine; Visit Provider Nurse Practitioner
DX: E66.9 Obesity, unspecified (principal); E78.5 Hyperlipidemia, unspecified; I48.91 Unspecified atrial fibrillation; I50.9 Heart failure, unspecified; R05.9 Cough, unspecified; R79.89 Other specified abnormal findings of blood chemistry; I48.11 Longstanding persistent atrial fibrillation; Z68.36 Body mass index [BMI] 36.0-36.9, adult
CPT/HCPCS: 36415; 71046; 80048; 80061; 80076; 83735; 84439; 84443; 85025

== ENCOUNTER 2022-10-22 10:17 | Emergency (ER) | payer MEDICARE, BC, SELFPAY ==
[2022-10-22 10:27] VITALS: BP 131/77; PULSE 56; RESP 20; TEMP 36.8; O2SAT 97; BMI 39.8
[2022-10-22 10:31] VITALS: BP 146/72; PULSE 56; O2SAT 98
--- NOTE | 2022-10-22 11:03 | XR_ITS ---
PROCEDURE INFORMATION: Exam: XR Left Femur Exam date and time: 10/22/2022 11:19 AM Age: 67 years old Clinical indication: Injury or trauma; Sprain or strain; Hip and thigh or upper leg; Patient HX: Fall left hip/leg pain; Additional info: Fall, hip pain TECHNIQUE: Imaging protocol: Radiologic exam of the left femur. Views: 2 views. COMPARISON: CT ABDOMEN PELVIS W CON 09/27/2022 4:35 PM FINDINGS: Bones/joints: Unremarkable. No acute fracture. Soft tissues: Unremarkable. IMPRESSION: No acute findings.
--- NOTE | 2022-10-22 11:03 | CT_ITS ---
PROCEDURE INFORMATION: Exam: CT Cervical Spine Without Contrast Exam date and time: 10/22/2022 11:21 AM Age: 67 years old Clinical indication: Injury or trauma; Blunt trauma; Patient HX: Fall, hit left side of head, on blood thinners TECHNIQUE: Imaging protocol: Computed tomography of the cervical spine without contrast. Radiation optimization: All CT scans at this facility use at least one of these dose optimization techniques: automated exposure control; mA and/or kV adjustment per patient size (includes targeted exams where dose is matched to clinical indication); or iterative reconstruction. REPORTING DATA: Count of CT and Cardiac NM exams in prior 12 months: This patient has received 2 known CTs and 0 known cardiac nuclear medicine studies in the 12 months prior to the current study. COMPARISON: CT HEAD/BRAIN WO CON 10/22/2022 11:18 AM FINDINGS: Bones/joints: Vertebral alignment is maintained. There is preservation of vertebral body heights. Facet joints are aligned. Odontoid process is intact. Atlantoaxial interval maintained. No acute fracture. Uncovertebral and facet arthropathy result in varying degrees of neural foraminal narrowing at multiple levels. Lungs: Lung apices are normal. Soft tissues: Prevertebral and paravertebral soft tissues are maintained IMPRESSION: No acute fracture. No traumatic subluxation.
--- NOTE | 2022-10-22 11:03 | CT_ITS ---
PROCEDURE INFORMATION: Exam: CT Head Without Contrast Exam date and time: 10/22/2022 11:18 AM Age: 67 years old Clinical indication: Injury or trauma; Blunt trauma (contusions or hematomas) and concussion/head injury; Without loss of consciousness; Patient HX: Fall, hit left side of head, on blood thinners; Additional info: Fall hit head on thinners TECHNIQUE: Imaging protocol: Computed tomography of the head without contrast. Radiation optimization: All CT scans at this facility use at least one of these dose optimization techniques: automated exposure control; mA and/or kV adjustment per patient size (includes targeted exams where dose is matched to clinical indication); or iterative reconstruction. REPORTING DATA: Count of CT and Cardiac NM exams in prior 12 months: This patient has received 2 known CTs and 0 known cardiac nuclear medicine studies in the 12 months prior to the current study. COMPARISON: CT HEAD/BRAIN WO CON 09/27/2022 4:33 PM FINDINGS: Brain: There is a punctate hyperattenuating structure in the reg (series 3, image 26). No substantial vasogenic edema to suggest acute hemorrhage. Internal Hounsfield unit 76 HU Impression. There is no evidence of acute intracranial hemorrhage, extra-axial collection or locoregional mass effect. There are scattered hypodensities in the periventricular and subcortical white matter. The appearance is nonspecific, but most likely represents chronic small vessel disease in a person of this age Cerebral ventricles: The ventricles, sulci and cisterns are normal in size and configuration for patient's age. No hydrocephalus or midline structure shift Pituitary gland and sella: Sellar/parasellar structures, craniocervical junction and orbits are unremarkable Paranasal sinuses: Visualized sinuses are unremarkable. No fluid levels. Mastoid air cells: Visualized mastoid air cells are well aerated. Bones/joints: No calvarial fracture Soft tissues: Moderate-sized left posterolateral scalp hematoma. IMPRESSION: 1. No acute intracranial abnormality. No calvarial fracture. 2. Moderate-sized left posterolateral scalp hematoma. 3. Punctate hyperattenuating structure in the reg. 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 This can be further evaluated with nonemergent brain MRI.
--- NOTE | 2022-10-22 11:03 | XR_ITS ---
PROCEDURE INFORMATION: Exam: XR Chest Exam date and time: 10/22/2022 11:19 AM Age: 67 years old Clinical indication: Injury or trauma; Blunt trauma (contusions or hematomas); Patient HX: Fall, SOA TECHNIQUE: Imaging protocol: Radiologic exam of the chest. Views: 1 view. COMPARISON: CR XR CHEST 2V 10/19/2022 9:56 AM FINDINGS: Lungs: Unremarkable. No consolidation. Pleural spaces: Unremarkable. No pleural effusion. No pneumothorax. Heart/Mediastinum: Cardiomegaly. Widened upper mediastinum since previous, uncertain if examination was taken in supine position. Clinical correlation and possible repeat two-view examination recommended. Bones/joints: Unremarkable. IMPRESSION: Widened upper mediastinum since previous, uncertain if examination was taken in supine position. Clinical correlation and possible repeat two-view examination recommended.
--- NOTE | 2022-10-22 11:03 | XR_ITS ---
PROCEDURE INFORMATION: Exam: XR Left Hip Exam date and time: 10/22/2022 11:19 AM Age: 67 years old Clinical indication: Injury or trauma; Sprain or strain; Patient HX: Fall, left hip/leg pain; Additional info: Fall, pain to palpation TECHNIQUE: Imaging protocol: Radiologic exam of the left hip. Views: 2 or 3 views hip with pelvis when performed. COMPARISON: CT ABDOMEN PELVIS W CON 09/27/2022 4:35 PM FINDINGS: Bones/joints: No acute fracture or dislocation. Soft tissues: Limited by patient body habitus. Evidence of previous ventral hernia repair. IMPRESSION: No acute findings.
--- NOTE | 2022-10-22 11:05 | HMH.EDGENADL ---
Discharge Plan Disposition Patient Disposition: Home, Self-Care Condition: Good Prescriptions Prescriptions: No Action bumetanide 1 mg tablet 1 mg PO BID Qty: 60 5RF metoprolol succinate 50 mg tablet extended release 24 hr 50 mg PO DAILY potassium chloride 20 mEq tablet,ER particles/crystals 20 meq PO DAILY famotidine 20 mg tablet 20 mg PO DAILY PRN (Reason: Acid Reflux) simvastatin 20 mg tablet 20 mg PO DAILY nystatin [Nyamyc] 100,000 unit/gram powder 1 applic TOPICAL DAILYP PRN (Reason: Skin Irritation) duloxetine 60 mg capsule,delayed release(DR/EC) 60 mg PO DAILY Eliquis 5 mg tablet 5 mg PO BID sennosides-docusate sodium [Senna-S] 8.6-50 mg Tablet 1 tab-cap PO HS Januvia 50 mg tablet 50 mg PO DAILY ferrous sulfate 325 mg (65 mg iron) Tablet,Delayed Release (Dr/Ec) 325 mg PO DAILY melatonin 5 mg Tablet 5 mg PO HS cholecalciferol (vitamin D3) 50 mcg (2,000 unit) Tablet 50 mcg PO DAILY magnesium oxide 400 mg magnesium Tablet 400 mg PO DAILY nystatin 100,000 unit/gram Powder 1 applic topical QID 15 Days Qty: 0 0RF tramadol 50 mg tablet 50 mg PO Q6HP PRN (Reason: Pain) 30 Days Qty: 120 0RF cefdinir 300 mg capsule 300 mg PO BID 4 Days Qty: 8 0RF amoxicillin 875 mg tablet 875 mg PO BID 5 Days Qty: 10 0RF Activity Restrictions/Add. Instructions Additional Instructions/Restrictions: You were evaluated in the emergency department today after a fall. We did not identify any fracture, dislocation, intracranial bleed, or other abnormalities. You do have a skin tear on your left arm with a hematoma. Keep this area clean and dry. Keep it wrapped to help it heal. Continue taking all home medications as prescribed. Make an appointment with your primary care physician for reevaluation in 2 days. Return to the emergency department with new or worsening symptoms. Clinical Impressions Clinical Impression: Fall Qualifiers: Encounter type: initial encounter Qualified Code(s): W19.XXXA - Unspecified fall, initial encounter Scalp hematoma Qualifiers: Encounter type: initial encounter Qualified Code(s): S00.03XA - Contusion of scalp, initial encounter Skin tear of left forearm without complication Qualifiers: Encounter type: initial encounter Qualified Code(s): S51.812A - Laceration without foreign body of left forearm, initial encounter Discharge ED Provider: Shaun Campos Adult HPI General Chief complaint: Fall Stated complaint: fall Time Seen by Provider: 10/22/22 10:54 Mode of Arrival: EMS Source of Information: Patient and EMS Limitations: No Limitations Description of Symptoms (Recalled from ER Triage Doc. by RN): pt to ed fall. pt states she was walking to the restroom and slipped. pt denies any pain or injury. pt denies LOC. knot noted to the left side of her head. History of Present Illness HPI narrative: This 67-year-old female presents to the emergency department after a fall. She states that she slipped in her own urine in the bathroom and fell over the side of her shower ledge. She complains of pain in the left hip. She also has skin tears on the left arm. She notes that she did hit her head, but did not lose consciousness. She does take blood thinners. She is unsure which blood thinner, but review of recent records demonstrates she takes Eliquis daily. Patient states she is currently on antibiotics for a lung infection. She is on her normal home oxygen, 2 L. She does not complain of chest pain or shortness of breath. She denies neck pain, back pain, or headache. Related Data Home Medications Medication Instructions Recorded Confirmed apixaban 5 mg tablet (Eliquis) 5 mg PO BID afib- blood thinner 09/27/22 10/19/22 duloxetine 60 mg capsule,delayed 60 mg PO DAILY mood 09/27/22 10/19/22 release famotidine 20 mg tablet 20 mg PO DAILY PRN Acid Reflux 09/27/22 10/19/22 metoprolol suc
[2022-10-22 11:16] LABS: Chloride 96 mmol/L (98-107); Potassium 3.7 mmoL/L (3.5-5.1); Sodium 139 mmol/L (136-145)
--- NOTE | 2022-10-22 11:16 | PC.NURSE ---
pt went to ct via stretcher helped stone grader move pt over to ct table
[2022-10-22 11:19] LABS: Alanine Aminotransferase 15 U/L (12-78); Albumin Level 3.1 g/dl (3.5-5.0); Albumin/Globulin Ratio 0.7 (1.1-1.8); Alkaline Phosphatase 270 U/L (38-126); Anion Gap 8.7 mEq/L (5-15); Aspartate Amino Transferase 27 U/L (14-36); Bilirubin,Total 1.1 mg/dl (0.2-1.3); Blood Urea Nitrogen 15 mg/dl (7-17); Carbon Dioxide 38 mmol/L (22.0-30.0); Creatinine Clearance Estimated 86 mL/min (50-200); Estimated Glomerular Filt Rate 55 ml/min (>60); GFR (African American) 67 ML/MIN (>60); Globulin 4.4 g/dL (1.3-3.2); Glucose 109 mg/dl (74-100); Total Protein,Serum 7.5 g/dl (6.3-8.2)
[2022-10-22 11:20] LABS: Basophils # 0.1 K/mm3 (0-0.2); Basophils % 0.9 % (0.1-2.0); Calcium 9.3 mg/dl (8.4-10.2); Eosinophils # 0.3 K/mm3 (0.0-0.4); Eosinophils % 3.5 % (0.1-12.0); Hematocrit 37.9 % (37.0-47.0); Hemoglobin 11.3 g/dL (12.2-16.2); Lymphocytes # 1.4 K/mm3 (0.7-4.5); Lymphocytes % 16.5 % (10-50); Mean Corpuscular HGB Conc 29.7 g/dL (31.8-35.4); Mean Corpuscular Hemoglobin 28.1 pg (27.0-31.2); Mean Corpuscular Volume 94.5 fl (81-99); Mean Platelet Volume 9.2 fl (7.4-10.4); Monocytes # 0.8 K/mm3 (0.1-1.0); Neutrophils # 5.8 K/mm3 (1.8-7.8); Neutrophils % 69.1 % (37.0-80.0); Platelet Count 327 K/mm3 (142-424); Red Blood Count 4.01 M/mm3 (4.20-5.40); White Blood Count 8.4 K/mm3 (4.8-10.8)
[2022-10-22 11:28] LABS: INR 1.39 (0.9-1.1); Prothrombin Time 14.7 seconds (10.1-12.5)
[2022-10-22 12:03] VITALS: BP 191/84; PULSE 55; RESP 18; O2SAT 100
[2022-10-22 12:31] VITALS: BP 174/90; PULSE 56; O2SAT 100
--- NOTE | 2022-10-22 13:30 | PC.NURSE ---
left FA unwrapped and rewrapped with non stick dressing and secured with tegaderm, Pt tolerated well.
[2022-10-22 13:45] VITALS: BP 174/90; PULSE 56; RESP 16; TEMP 36.8; O2SAT 100
== END 2022-10-22 13:47 | disposition home or self-care (01) ==
PROVIDERS: Emergency Provider Emergency Medicine; PCP Family Medicine
DX: S00.03XA Contusion of scalp, initial encounter (principal); S51.812A Laceration without foreign body of left forearm, initial encounter; M25.552 Pain in left hip; I48.91 Unspecified atrial fibrillation; I50.9 Heart failure, unspecified; E11.9 Type 2 diabetes mellitus without complications; K21.9 Gastro-esophageal reflux disease without esophagitis; F32.A Depression, unspecified; W01.0XXA Fall on same level from slipping, tripping and stumbling without subsequent striking against object, initial encounter
CPT/HCPCS: 70450; 71045; 72125; 73502; 73552; 80053; 85025; 85610; 96374; 99285

== ENCOUNTER → 2022-11-06 06:37 | Outpatient (CLI) | payer MEDICARE, BC, SELFPAY ==
--- NOTE | 2022-11-06 06:42 | NM_ITS ---
APPROVED REPORT Exam: Nuclear Stress Test Indication: HTN, DM, HYPERLIPIDEMIA, FM HX, A-FIB, SYNCOPE, ABN EKG Patient Location: Outpatient Stress Tech: Judi Teresa AL Tech:Jessica Booth RASHAAD RT (R)(N)(M) Ht: 5 ft 5 in Wt: 218 lbs Bra Size: C HR: 52 bpm BP: 128/80 mmHg BSA: 2.05 m2 Rhythm: Atrial Fibrillation TID: 1.22 BMI: 36.2 History: HTN, DM, HYPERLIPIDEMIA, FM HX, A-FIB, SYNCOPE, ABN EKG Procedure: Patient received 0.4 mg of intravenous Lexiscan, resting heart rate 52 bpm, resting blood pressure 128/80 mmHg, with Lexiscan maximum heart rate achieved was 56 bpm which is % of the maximum predicted heart rate and blood pressure was 128/74 mmHg. PT DEVELOPED CHEST TIGHTNESS WITH LEXISCAN Cardiac Stress and Resting SPECT Images: Cardiac Stress and Resting SPECT images were obtained using technetium 99m Myoview 31.6 mCi stress and 10.05 mCi at rest. The patient could not lie on her abdomen. Therefore, prone stress images could not be performed. This may affect the diagnostic interpretation of the study findings. Resting and stress imaging in supine position demonstrate no evidence of focal fixed or reversible perfusion defects. There is increased transient ischemic dilatation ratio (TID 1.22), suggestive of possible multivessel disease or balanced ischemia. Gated imaging demonstrates normal global and regional LV systolic function. LVEF is calculated at 60%. Conclusion: The patient could not lie on her abdomen. Therefore, prone stress images could not be performed. This may affect the diagnostic interpretation of the study findings. No definite evidence of focal fixed or reversible perfusion defects. Increased transient ischemic dilatation ratio (TID 1.22), suggestive of possible multivessel disease or balanced ischemia. Gated imaging demonstrates normal global and regional LV systolic function. LVEF is calculated at 60%. Electronically signed by : Ruth Carreno MD 11/12/2022 17:05:26
--- NOTE | 2022-11-06 09:43 | CA_ITS ---
APPROVED REPORT Exam: Pharmacologic Technologist: Judi Teresa Ht: 5 ft 5 in Wt: 222 lbs BSA: 2.07 m2 HR: 52 bpm BP: 128/80 mmHg Rhythm: Atrial Fibrillation Indications: Atrial Fibrillation, Congestive Heart Failure Medical History Medications: Metoprolol,,,,, Simvastatin,,,,, Ferrous sulfate,,,,, Vitamin D3,,,,, Tramadol,,,,, Januvia,,,,, DulOXETINE,,,,, Magnesium,,,,, Meclizine,,,,, Apixaban,,,,, Potassium,,,,, CefdinER,,,,, Stress Test Details Test: LEXISCAN HR Resting HR: 55 bpm Max Heart Rate (APMHR): 151 bpm Max HR Achieved: 65 bpm Target HR (85% APMHR): 128 bpm % of APMHR: 43 Recovery HR: 52 bpm BP Resting BP: 128.0/80.0 mmHg Max BP: 128.0/80.0 mmHg Recovery BP: 120.0/72.0 mmHg ECG Resting ECG: Atrial fibrillation Stress ECG: No ST changes Arrhythmia: PVCs, 1 ventricular couplet Clinical Exercise duration: 04:01 min Highest Stage Achieved: Exercise capacity: 1.0 METs Stress ECG Conclusion Symptoms: Chest tightness Arrhythmias/Ectopy: PVC's, [address]-T Changes: No significant ST changes. Conclusion: Unremarkable Lexiscan stress test. Myoview images are reported separately. Test Summary REST . . . . . . . Resting REST 17:19 . . 55 . 128/ 80 . . Stage 1 . . . . . . . Myoview Injected Stage 1 01:00 . . 45 . . . . Stage 2 01:00 . . 53 . 122/ 68 . . Stage 3 01:00 . . 45 . 128/ 74 . . Stage 4 01:00 . . 57 . 122/ 70 . . Stage 4 01:01 . . 57 . 122/ 70 . Stop exercise at 04:01 RECOVERY 01:00 . . 59 . . . . RECOVERY 02:00 . . 61 . 118/ 68 . . RECOVERY 02:57 . . 47 . 120/ 72 . . Electronically signed by : Ruth Carreno MD 11/12/2022 17:02:25
== END ==
PROVIDERS: PCP Family Medicine; Visit Provider Nurse Practitioner
DX: R05.9 Cough, unspecified; R94.31 Abnormal electrocardiogram [ECG] [EKG]; R79.89 Other specified abnormal findings of blood chemistry; I48.91 Unspecified atrial fibrillation; I50.9 Heart failure, unspecified; E78.5 Hyperlipidemia, unspecified; E66.9 Obesity, unspecified; Z68.36 Body mass index [BMI] 36.0-36.9, adult
CPT/HCPCS: 78452; 93017; A9502; J2785

== ENCOUNTER → 2022-11-27 09:24 | Outpatient (CLI) | payer MEDICARE, BC, SELFPAY ==
[2022-11-27 16:53] LABS: Anion Gap 11.4 mEq/L (5-15); Blood Urea Nitrogen 18 mg/dl (7-17); Calcium 8.9 mg/dl (8.4-10.2); Carbon Dioxide 32 mmol/L (22.0-30.0); Chloride 99 mmol/L (98-107); Estimated Glomerular Filt Rate 55 ml/min (>60); GFR (African American) 67 ML/MIN (>60); Glucose 107 mg/dl (74-100); Potassium 4.4 mmoL/L (3.5-5.1); Sodium 138 mmol/L (136-145)
== END ==
PROVIDERS: PCP Family Medicine; Visit Provider Nurse Practitioner
DX: I48.91 Unspecified atrial fibrillation (principal); I50.9 Heart failure, unspecified
CPT/HCPCS: 36415; 80048

== ENCOUNTER 2022-12-01 11:18 | Inpatient (IN) | payer MEDICARE, BC, SELFPAY ==
[2022-12-01] VITALS (24 sets, daily range): BP systolic 92–142; BP diastolic 38–81; PULSE 45–70; RESP 14–24; TEMP 36.3–36.5; O2SAT 92–100; BMI 38.9; BMI 40.5
--- NOTE | 2022-12-01 | IR_ITS ---
APPROVED REPORT Patient Location: Outpatient PROCEDURES Left heart catheterization Left ventriculogram Selective coronary angiogram INDICATION High risk abnormal Myoview, Angina pectoris, Diastolic congestive heart failure Informed consent was obtained prior to the procedure. COMPLICATIONS None Estimated Blood Loss: Less than 10 ml TECHNIQUE One percent lidocaine used to anesthetize the right anterior aspect of the wrist. The right radial artery was accessed via the Seldinger technique. A 6 Maltese sheath was placed in the right radial artery. 2.5 mg of Verapamil, 800 mcg of nitroglycerin, 1mg Lidocaine and 5000 U Heparin were given through the arterial sheath. Due to the small caliber of the branch of the brachial artery a 75 cm hydrophilic sheath was advanced over an advantage wire which then allowed direct delivery of the Poppa catheter into the ascending aorta. The papa catheter was also used to perform left heart catheterization, left ventriculogram and selective coronary angiogram. At the end of the procedure the sheath was removed good hemostasis was achieved using Traclet band, patient was transferred to the postop holding area in stable condition. ANGIOGRAPHIC RESULTS The left main artery Normal The left anterior descending artery Is a large-caliber vessel and has proximal to mid vessel 10 to 20% stenoses with a mid vessel to distal 30% stenosis and additional dirt distal 30% stenosis The circumflex artery Small nondominant with mild 10 to 20% stenoses The right coronary artery Large dominant vessel and has mid vessel 30 to 40% stenosis with distal 30% stenoses. Large distal marginal branches are large in caliber supplying a large amount of myocardium and have diffuse 30% stenosis The NEGRETE ventriculogram reveals Normal 65% The left ventricular end-diastolic pressure Severely elevated at 35 to 40 mmHg IMPRESSION Mild to moderate nonflow limiting diffuse coronary disease as described above Normal ejection fraction Severely elevated LVEDP PLAN 1. Patient experienced profound hypoxia with movement. She has +3 pitting edema with severely elevated LVEDP. She requires admission with plans to administer IV diuretics until there is a significant increase in her creatinine thereby implying intravascular depletion. 2. Patient is a good candidate for CardioMEMS based on the severity of her diastolic heart failure 3. Risk factor modification Electronically signed by : Luiz Morgan MD 12/01/2022 13:07:19
[2022-12-01 08:25] LABS: Basophils # 0.1 K/mm3 (0-0.2); Basophils % 1.2 % (0.1-2.0); Eosinophils # 0.4 K/mm3 (0.0-0.4); Eosinophils % 4.8 % (0.1-12.0); Hematocrit 37.9 % (37.0-47.0); Hemoglobin 11.8 g/dL (12.2-16.2); Lymphocytes # 1.2 K/mm3 (0.7-4.5); Lymphocytes % 14.5 % (10-50); Mean Corpuscular Hemoglobin 29.5 pg (27.0-31.2); Mean Platelet Volume 8.7 fl (7.4-10.4); Monocytes # 0.8 K/mm3 (0.1-1.0); Monocytes % 9.1 % (1.7-9.3); Neutrophils # 5.9 K/mm3 (1.8-7.8); Neutrophils % 70.4 % (37.0-80.0); Platelet Count 421 K/mm3 (142-424); Red Blood Count 3.99 M/mm3 (4.20-5.40); Red Cell Distribution Width 15.5 % (11.5-17.5); White Blood Count 8.4 K/mm3 (4.8-10.8)
[2022-12-01 08:35] LABS: Chloride 97 mmol/L (98-107); Potassium 4.1 mmoL/L (3.5-5.1); Sodium 138 mmol/L (136-145)
[2022-12-01 08:38] LABS: Anion Gap 11.1 mEq/L (5-15); Blood Urea Nitrogen 18 mg/dl (7-17); Calcium 8.6 mg/dl (8.4-10.2); Carbon Dioxide 34 mmol/L (22.0-30.0); Creatinine Clearance Estimated 89 mL/min (50-200); Estimated Glomerular Filt Rate 62 ml/min (>60); GFR (African American) 75 ML/MIN (>60); Glucose 121 mg/dl (74-100)
[2022-12-01 10:06] LABS: ABG Base Excess 2.1 mmol/L (-2.4-2.3); ABG HCO3 27.2 mmhg (22.0-26.0); ABG Oxygen Saturation 100 % (90-100); ABG PCO2 46.6 mmhg (35.0-45.0); ABG PH 7.38 mmol/L (7.35-7.45); ABG PO2 311.4 mmhg (80-100); ABG TCO2 28.6 mmhg (23-27)
--- NOTE | 2022-12-01 10:25 | SUR.PHASEII ---
While attempting to lay patient flat patient becane cyanotic and HR dropped to 30s and O2 sat dropped in 70s, immediately sat patient up and pt o2 sats and HR began to rise. Notified Dr Morgan and he came to assess patient, stated to leave her completely up and not to lay her flat and will admit her. VSS at this time.
--- NOTE | 2022-12-01 10:37 | SUR.PHASEII ---
Pt has large urine output in her brief and on her bed, purwick applied to patient.
--- NOTE | 2022-12-01 10:46 | SUR.PHASEII ---
16F urinary ramesh cath inserted per dr order to monitor accurate UOP
[2022-12-01 11:21] LABS: Microscopic, Urine URINE MICROSCOPIC (MICROSCOPIC)
[2022-12-01 11:29] LABS: Appearance,Urine CLEAR (Clear); Bilirubin,Urine Negative (Negative); Blood, Urine TRACE-I (Negative); Color,Urine YELLOW (Yellow); Glucose,Urine (UA) TRACE (Negative); Ketones,Urine Negative (Negative); Leukocyte Esterase,Urine 1+ (Negative); Nitrate,Urine Negative (Negative); PH,Urine 7.5 (5.0-8.5); Protein,Urine Negative (Negative); Specific Gravity, Urine 1.015 (1.005-1.030); Urobilinogen,Urine 0.2 EU/dl (0.2)
[2022-12-01 12:07] LABS: Bacteria,Urine Trace /lpf; Squamous Epithelial Cell,Urine Occasional #/hpf (0-5)
--- NOTE | 2022-12-01 12:21 | SUR.PHASEII ---
attempted to call both numbers listed for pt's next of kin (Daughters) with no answer.
--- NOTE | 2022-12-01 12:37 | PC.NURSE ---
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
--- NOTE | 2022-12-01 12:39 | SUR.PHASEII ---
spoke with elizabeth Damon's daughter.
--- NOTE | 2022-12-01 12:45 | P.CONPHA_ITS ---
Pharmacy Intervention Comments: MEDICATION RECONCILIATION COMPLETED ON PATIENT USING MAR FROM [facility]. -AJ ESPINOZA, SELMAD
--- NOTE | 2022-12-01 12:45 | HMH.PHAINT1 ---
Pharmacy Intervention Comments: MEDICATION RECONCILIATION COMPLETED ON PATIENT USING MAR FROM [facility]. -AJ ESPINOZA, SELMAD
--- NOTE | 2022-12-01 13:31 | EXP.CARD.CON ---
History of Present Illness History of Present Illness Consult date: 12/01/22 Requesting physician: Garcia Oakley Consult reason: congestive heart failure and shortness of breath Chief complaint: SOA, LE edema Additional Medical History:: 1. Chronic A-fib A. Treated with Eliquis 2. Hyperlipidemia A. Statin therapy 3. History of congestive heart failure A. [facility], 12/01/2022, mild to moderate nonflow limiting CAD. Normal EF. Severely elevated left ventricular end-diastolic pressure at 35-40 mmHg. 4. Hypertension A. Echocardiogram, 05/16/2022, [facility], EF estimated at 40-50% (regional wall motion not interpretable), septal flattening in diastole and systole consistent with right ventricular volume and pressure overload. RV systolic function moderately reduced with RVSP of 50-70 mmHg. 5. Lexiscan Myoview, 11/06/2022, no fixed or reversible defects but with TID at 1.22, EF 60%. 6. History of COVID in August 2022 7. Cholelithiasis by ultrasound 04/21/2022 8. Cirrhosis with ascites noted on right upper quadrant ultrasound, 04/21/2022 History of present illness: 67-year-old white female admitted post cardiac catheterization for severe biventricular congestive heart failure with profound hypoxemia with movement. LVEDP at the time of the cath was 35-40 mmHg. Echo from earlier this year shows reduced right ventricular ejection fraction with right ventricular systolic pressure of 69 mmHg. Patient with anasarca and edema up into her thighs. Cardiac catheterization showed mild to moderate nonflow limiting CAD. IV diuretics have been started. She has had about 2 L of urine output today. [facility] Disclaimer: The information contained in this section may have been updated after the patient was seen, as this information can be updated by other users. Medical History Acute kidney failure Atrial fibrillation CHF (congestive heart failure) Constipation Depression Diabetes mellitus type 2 in obese GERD (gastroesophageal reflux disease) Heart disease High blood pressure Oxygen dependent Family History Other Family history of cancer Social History (Updated 12/01/22 @ 12:59 by Glory Adams RN) Smoking Status: Never smoker alcohol intake: never current occupational status: unemployed Travel in the last 8 weeks: None Review of Systems Review of Systems Review of systems:: pertinent systems reviewed and negative unless documented below *Cardiovascular Cardiovascular: Denies chest pain, Reports dyspnea, Reports dyspnea on exertion and Reports leg edema *Respiratory Respiratory: Reports dyspnea and Reports dyspnea on exertion Exam Data for Last 24 hours Vital signs and Labs for Last 24 Hours: Pulse Resp BP Pulse Ox O2 Del Method O2 Flow Rate 45 L 24 106/66 L 98 Nasal Cannula 2 12/01/22 12:45 12/01/22 12:45 12/01/22 12:45 12/01/22 12:45 12/01/22 12:45 12/01/22 12:45 Laboratory Results - last 24 hr 12/01/22 08:15: WBC 8.4, RBC 3.99 L, Hgb 11.8 L, Hct 37.9, MCV 95.0, MCH 29.5, MCHC 31.0 L, RDW 15.5, Plt Count 421, MPV 8.7, Neut % (Auto) 70.4, Lymph % (Auto) 14.5, [place] % (Auto) 9.1, Eos % (Auto) 4.8, Baso % (Auto) 1.2, Neut # (Auto) 5.9, Lymph # (Auto) 1.2, [place] # (Auto) 0.8, Eos # (Auto) 0.4, Baso # (Auto) 0.1, Sodium 138, Potassium 4.1, Chloride 97 L, Carbon Dioxide 34 H, Anion Gap 11.1, BUN 18 H, Creatinine 0.90, Estimated Creat Clear 89, Estimated GFR 62, Est GFR ( Amer) 75, Glucose 121 H, Calcium 8.6 12/01/22 10:04: ABG pH 7.38, ABG pCO2 46.6 H, ABG pO2 311.4 H, ABG HCO3 27.2 H, ABG Total CO2 28.6 H, ABG O2 Saturation 100, ABG Base Excess 2.1 12/01/22 10:45: Urine Color Yellow, Urine Appearance Clear, Urine pH 7.5, Ur Specific Wilson 1.015, Urine Protein Negative, Urine Glucose (UA) Trace, Urine Ketones Negative, Urine Blood Trace-i, Urine Nitrate Negative, Urine Bilirubin Negative, Urine Urobilino
--- NOTE | 2022-12-01 13:49 | CA_ITS ---
APPROVED REPORT EXAM: Comprehensive 2D, Doppler, and color-flow Echocardiogram Advisory Application Developer: Supriya Jackson CRT Ht: 5 ft 4 in Wt: 243lbs BSA: 2.12 BP: 95/52 mmHg Indications: Congestive Heart Failure, Atrial Fibrillation, Peripheral Edema, Hyperlipidemia, Hypertension/HDD, cOVID 09/10, CIRRHOSIS, HOME O2 EF ON CATH 65% 12/01/22, EF ON [facility] ECHO 40-50% 05/16/22 2D Dimensions LVOT 1.92 cm (M/F) 1.5-2.5 M-Mode Dimensions RVDd 3.83 cm (0.9-2.6) LA Diam 4.68 cm (1.9-4.0) LVDd 4.41 cm (3.5-5.7) Ao Diam 3.68 cm (2.0-3.7) LVDs 2.66 cm (3.5-5.7) IVSd 1.82 cm (0.6-1.1) PWd 0.81 cm (0.6-1.1) EF (Teich) 70.50% FS 39.70% EDV (Teich) 88.20 mL ESV (Teich) 26.00 mL LV Diastology E Decel Time 150.00 (160-240 msec) E/A Ratio 3.87 Aortic Valve AO Peak GR. 5.70 mmHg Mitral Valve MV E Max Austen. 254.00 (40-130 cm/s) MV A Velocity 66.00 (40-130 cm/s) E/A Ratio 3.87 MV Decel. Time 150.00 (160-240 ms) MV PHT 44.00 ms Pulmonary Valve PV Peak Velocity 238.00 (50-150 cm/s) Tricuspid Valve TR P. Velocity 388.00 cm/s RAP Estimate 10.00 mmHg RVSP 70.10 mmHg Left Ventricle The left ventricle is normal size. The left ventricular systolic function is normal. The left ventricular ejection fraction is within the normal range. There is increased LV wall thickness. The interventricular septum is flattened due to RV volume/pressure overload. Diastolic function is indeterminate due to atrial fibrillation. LVEF is 60%. Right Ventricle The right ventricle is severely dilated. There is severe reduction in RV systolic function. Atria The left atrium size is mildly dilated. The right atrium is severely dilated. The interatrial septum bows leftward, suggestive of elevated right-sided pressures. There is no Doppler evidence of interatrial shunt. Aortic Valve The aortic valve is mildly thickened. There is no aortic valvular stenosis. No aortic regurgitation is present. Mitral Valve There is mild mitral annular calcification. The mitral valve leaflets are mildly thickened. No evidence of mitral valve stenosis. Mild mitral regurgitation. The MR jet that is eccentric and posteriorly directed. Tricuspid Valve The tricuspid valve leaflets are thin and pliable. Severe tricuspid regurgitation. RVSP > 60 mmHg, but is possibly inaccurate due to severe TR. Pulmonic Valve The pulmonary valve is normal in structure. Mild pulmonic regurgitation. Great Vessels The aortic root is normal in size. The ascending aorta is normal in size. The IVC is plethoric. Pericardium There is no pericardial effusion. Other Information Study Quality: Fair Conclusion Normal LV systolic function. Severely dilated RV with severe reduction in RV systolic function. Biatrial dilatation. Severe TR. Elevated RVSP. Electronically signed by : Ruth Carreno MD 12/01/2022 19:15:20
--- NOTE | 2022-12-01 14:10 | EXP.HP ---
History of Present Illness *Admission Date: 12/01/22 *Reason for visit:: Shortness of air *History of present illness: This is a 67-year-old female that presents to for left heart cath secondary to concerns of shortness of air and previous history of coronary artery disease. Her past medical history is significant for atrial fibrillation on chronic anticoagulation with Eliquis, heart failure with reduced ejection fraction, diabetes, hypertension, BMI 39 and pulmonary hypertension. Upon presentation for her cardiac cath oxygen requirements were identified requiring nonrebreather mask for appropriate oxygen saturations. She received IV loop diuretic therapy and her oxygen requirements improved. In the laborer rags significant anasarca was identified extending to mid thighs. Her cardiac cath identified no flow-limiting disease and LVEDP 35 to 40 mmHg. An echocardiogram from April 2022 identified reduced ejection fraction of 40% with RVSP 69 mmHg. Currently she is sedated post procedure and history is acquired from the medical record and e business consultant. [facility] Medical History (Updated 12/01/22 @ 15:13 by Garcia Oakley MD) Atrial fibrillation BMI 39.0-39.9,adult Chronic anemia Chronic anticoagulation Constipation Coronary artery disease Depression Diabetes GERD (gastroesophageal reflux disease) HFrEF (heart failure with reduced ejection fraction) Oxygen dependent Pulmonary hypertension Surgical History (Updated 12/01/22 @ 15:08 by Garcia Oakley MD) Status post left heart catheterization Family History Other Family history of cancer Social History (Updated 12/01/22 @ 12:59 by Glory Adams RN) Smoking Status: Never smoker alcohol intake: never current occupational status: unemployed Travel in the last 8 weeks: None Review of Systems Review of Systems Review of systems:: unable to obtain Meds Home Medications and Allergies Home Medications Medication Instructions Recorded Confirmed Type apixaban 5 mg tablet (Eliquis) 5 mg PO BID afib- blood thinner 09/27/22 12/01/22 History duloxetine 60 mg capsule,delayed 60 mg PO DAILY mood 09/27/22 12/01/22 History release famotidine 20 mg tablet 20 mg PO DAILYP PRN Acid Reflux 09/27/22 12/01/22 History potassium chloride 20 mEq 20 meq PO DAILY Supplement 09/27/22 12/01/22 History tablet,extended release(part/cryst) sennosides 8.6 mg-docusate sodium 1 tab PO HS Constipation 09/27/22 12/01/22 History 50 mg tablet (Senna-S) simvastatin 20 mg tablet 20 mg PO HS Cholesterol 09/27/22 12/01/22 History sitagliptin phosphate 50 mg tablet 50 mg PO DAILY Diabetes 09/27/22 12/01/22 History (Januvia) cholecalciferol (vitamin D3) 50 50 mcg PO DAILY Supplement 09/28/22 12/01/22 History mcg (2,000 unit) tablet ferrous sulfate 325 mg (65 mg 325 mg PO DAILY Supplement 09/28/22 12/01/22 History iron) tablet,delayed release magnesium oxide 400 mg PO DAILY Supplement 09/28/22 12/01/22 History melatonin 5 mg tablet 5 mg PO HS sleep 09/28/22 12/01/22 History meclizine 25 mg tablet 25 mg PO DAILY PRN Motion Sickness 10/26/22 12/01/22 History dapagliflozin propanediol 10 mg 10 mg PO DAILY Diabetes 11/27/22 12/01/22 History tablet nystatin 100,000 unit/gram topical 1 applic topical BID Skin 11/27/22 12/01/22 History powder ([facility] [place]) Irritation acetaminophen 500 mg tablet 500 mg PO Q6HP PRN Mild Pain 12/01/22 12/01/22 History (Acetaminophen Extra Strength) (Scale Score 1-4) apixaban 5 mg tablet (Eliquis) 5 mg PO BID Blood Thinner/Afib 12/01/22 12/01/22 History furosemide 80 mg tablet (Lasix) 100 mg PO DAILY 30 days #38 tabs 12/01/22 Rx metoprolol succinate 50 mg 50 mg PO DAILY High Blood Pressure 12/01/22 12/01/22 History tablet,extended release 24 hr nortriptyline 25 mg capsule 25 mg PO HS Mood 12/01/22 12/01/22 History spironolactone 100 mg tablet 100 mg PO DAILY 30 days #30 ta
--- NOTE | 2022-12-01 14:22 | EXP.PULM.CON ---
History of Present Illness History of present illness: Ms. Flannery is a 67-year-old female no significant smoking history no prior respiratory complaints presented for elective left heart cath procedure found to have disproportionate hypoxic episodes and elevated LVEDP and was eventually admitted to the hospital for further evaluation and volume optimization. Pulmonary was called as patient also had a history of pulmonary hypertension according with RVSP measured at 69. PFSH [facility] Disclaimer: The information contained in this section may have been updated after the patient was seen, as this information can be updated by other users. Medical History (Updated 12/01/22 @ 14:36 by Garcia Oakley MD) Atrial fibrillation Chronic anticoagulation Constipation Coronary artery disease Depression Diabetes GERD (gastroesophageal reflux disease) HFrEF (heart failure with reduced ejection fraction) Oxygen dependent Pulmonary hypertension Family History Other Family history of cancer Social History (Updated 12/01/22 @ 12:59 by Glory Adams RN) Smoking Status: Never smoker alcohol intake: never current occupational status: unemployed Travel in the last 8 weeks: None Review of Systems Constitutional Constitutional: Reports anorexia, Reports body ache(s) and Reports fatigue Eyes Eyes: Denies eye discharge, Denies dry eyes, Denies irritation and Denies itchy eyes ENT Ears, Nose, Mouth, and Throat: Denies epistaxis, Denies facial pain, Denies lip swelling and Denies throat swelling *Cardiovascular Cardiovascular: Reports dyspnea, Reports dyspnea on exertion, Reports leg edema, Reports leg ulcers, Reports orthopnea and Reports pedal edema *Respiratory Respiratory: Denies chest congestion, Reports cough, Reports dyspnea, Reports dyspnea on exertion, Denies excessive phlegm production and Denies wheezing *Gastrointestinal Gastrointestinal: Denies abdominal pain, Denies belching and Denies cramping *Musculoskeletal Musculoskeletal: Reports back pain, Reports myalgias and Reports other (No small joint swelling or Pain) Psychiatric Psychiatric: Denies homicidal ideation and Denies suicidal ideation Endocrine Endocrine: Reports fatigue and Denies heat intolerance Hematologic/Lymphatic Hematologic/Lymphatic: Denies easy bleeding and Denies lymphadenopathy Allergic/Immunologic Allergic/Immunologic: Denies itchy eyes, Denies lip swelling, Denies throat swelling and Denies wheezing Pulmonology Exam Inpatient Vital signs and Labs for Last 24 Hours: Pulse Resp BP Pulse Ox O2 Del Method O2 Flow Rate 53 L 18 108/68 L 98 Nasal Cannula 2 12/01/22 13:25 12/01/22 13:25 12/01/22 13:25 12/01/22 13:25 12/01/22 13:25 12/01/22 13:25 Laboratory Results - last 24 hr 12/01/22 08:15: WBC 8.4, RBC 3.99 L, Hgb 11.8 L, Hct 37.9, MCV 95.0, MCH 29.5, MCHC 31.0 L, RDW 15.5, Plt Count 421, MPV 8.7, Neut % (Auto) 70.4, Lymph % (Auto) 14.5, [place] % (Auto) 9.1, Eos % (Auto) 4.8, Baso % (Auto) 1.2, Neut # (Auto) 5.9, Lymph # (Auto) 1.2, [place] # (Auto) 0.8, Eos # (Auto) 0.4, Baso # (Auto) 0.1, Sodium 138, Potassium 4.1, Chloride 97 L, Carbon Dioxide 34 H, Anion Gap 11.1, BUN 18 H, Creatinine 0.90, Estimated Creat Clear 89, Estimated GFR 62, Est GFR ( Amer) 75, Glucose 121 H, Calcium 8.6 12/01/22 10:04: ABG pH 7.38, ABG pCO2 46.6 H, ABG pO2 311.4 H, ABG HCO3 27.2 H, ABG Total CO2 28.6 H, ABG O2 Saturation 100, ABG Base Excess 2.1 12/01/22 10:45: Urine Color Yellow, Urine Appearance Clear, Urine pH 7.5, Ur Specific [place] 1.015, Urine Protein Negative, Urine Glucose (UA) Trace, Urine Ketones Negative, Urine Blood Trace-i, Urine Nitrate Negative, Urine Bilirubin Negative, Urine Urobilinogen 0.2, Ur Leukocyte Esterase 1+ A, Urine RBC 3-5, Urine WBC 5-10, Ur Squamous Epith Cells Occasional, Urine Bacteria Trace I & O for Labs for Last 24 Hours: Intake & Output 11/28/22 11/29/22 11/30/22 12/01/22 23:59
--- NOTE | 2022-12-01 14:24 | XR_ITS ---
PROCEDURE INFORMATION: Exam: XR Chest Exam date and time: 12/01/2022 2:57 PM Age: 67 years old Clinical indication: Other: Hypoxia TECHNIQUE: Imaging protocol: Radiologic exam of the chest. Views: 1 view. COMPARISON: CR XR CHEST PORTABLE 10/22/2022 11:19 AM FINDINGS: Lungs: Lungs are hypoaerated. No evidence of pneumonia or interstitial edema. Pleural spaces: Unremarkable. No pleural effusion. No pneumothorax. Heart/Mediastinum: Cardiomegaly noted. Diaphragm: Right hemidiaphragm is elevated. Bones/joints: Unremarkable. IMPRESSION: Lungs are hypoaerated. No evidence of pneumonia or interstitial edema.
[2022-12-01 20:21] LABS: POC Glucose,Bedside 184 (70-110)
[2022-12-01 20:24] LABS: Anion Gap 11.4 mEq/L (5-15); Blood Urea Nitrogen 17 mg/dl (7-17); Calcium 8.5 mg/dl (8.4-10.2); Carbon Dioxide 36 mmol/L (22.0-30.0); Chloride 94 mmol/L (98-107); Creatinine Clearance Estimated 46 mL/min (50-200); Estimated Glomerular Filt Rate 55 ml/min (>60); GFR (African American) 67 ML/MIN (>60); Glucose 181 mg/dl (74-100); Potassium 3.4 mmoL/L (3.5-5.1); Sodium 138 mmol/L (136-145)
--- NOTE | 2022-12-01 23:05 | PC.NURSE ---
RT NOTE: Placed pt on bipap 02/08 with rate of 16 and 30% fio2. Pt wore bipap for about 20 minutes and asked for it to be taken off due to it being too much and that she would try wearing it again during the day.
[2022-12-02] VITALS (14 sets, daily range): BP systolic 92–122; BP diastolic 46–68; PULSE 50–77; RESP 12–21; TEMP 36.7–37; O2SAT 86–100; BMI 39.5
--- NOTE | 2022-12-02 05:12 | PC.NURSE ---
Patient has had a good night tonight. Complained of leg pain early in the shift. Patient states she had leg pain every night around the same time. Patient stated pain was better after medication SEE APR. Patient still remains with a ramesh for accurate I&O for the bumex drip which remains at 2.5ml/hr. Patient has had steady output. Patient has had PVC noted on telly. Patient also remained without her O2 on while awake early in the shift and stat between 93-94. Patient did wear bipap for about 20min and then we transferred to 2 NC as the Bipap was too much . Patient did get up to the beside once and tolerated that well and had a Bowel movement. Cath site remains clean dry and intact. Some bruising noted on wrist. edema has gotten better in bilateral lower legs. redness and warmth do remain bilaterally lower legs. No other issues noted by patient.
[2022-12-02 06:16] LABS: POC Glucose,Bedside 110 (70-110)
--- NOTE | 2022-12-02 07:11 | EXP.ACUTE.PN ---
Subjective *Date: 12/02/22 *Time: 10:08 Interval history: Patient alert self this morning. Know she is at the hospital, not sure why she is here. On less than 1 L this morning nasal cannula. Tolerating p.o. intake. Diuresing well, -3.5 L in the past 24 hours. Denies chest pain, shortness of breath, nausea, vomiting. Medical Exam Vital signs and Labs for Last 24 Hours: Vital Signs Temp Pulse Pulse Resp BP Pulse Ox O2 Del Method 12/02/22 06:48 Nasal Cannula 12/02/22 06:00 76 15 92/53 L 98 Nasal Cannula 12/02/22 05:00 Nasal Cannula 12/02/22 00:00 60 12/02/22 04:00 50 L 12/02/22 04:00 98.1 F 67 18 103/68 L 95 Nasal Cannula 12/02/22 03:39 Nasal Cannula 12/02/22 03:00 Nasal Cannula 12/02/22 02:00 62 21 93/63 L 95 Nasal Cannula 12/01/22 23:06 12/01/22 23:00 Nasal Cannula 12/01/22 20:00 60 12/01/22 22:00 70 22 92/48 L 92 L Room Air 12/02/22 01:00 Nasal Cannula 12/02/22 00:00 98.1 F 63 21 97/46 L 95 Nasal Cannula 12/01/22 21:00 Room Air 12/01/22 20:00 97.7 F 61 22 111/49 L 94 L Room Air 12/01/22 20:00 Room Air 12/01/22 18:45 Nasal Cannula 12/01/22 18:00 57 L 21 108/38 L 97 Nasal Cannula 12/01/22 17:25 59 L 14 104/53 L 99 Nasal Cannula 12/01/22 16:00 70 12/01/22 13:01 55 L 12/01/22 16:25 56 L 18 118/47 L 100 Nasal Cannula 12/01/22 15:25 51 L 20 99/56 L 98 Nasal Cannula 12/01/22 14:25 52 L 24 114/53 L 99 Nasal Cannula 12/01/22 16:36 Nasal Cannula 12/01/22 15:00 Nasal Cannula 12/01/22 15:54 97.4 F L 12/01/22 12:45 94 L Nasal Cannula 12/01/22 13:25 53 L 18 108/68 L 98 Nasal Cannula 12/01/22 12:55 46 L 20 126/64 97 Nasal Cannula 12/01/22 13:00 Nasal Cannula 12/01/22 12:45 45 L 24 106/66 L 98 Nasal Cannula 12/01/22 12:29 51 L 22 108/47 L 94 L Nasal Cannula 12/01/22 12:21 60 18 142/78 H 97 Nasal Cannula 12/01/22 11:55 51 L 16 141/72 H 100 Nasal Cannula 12/01/22 11:25 52 L 16 128/71 98 Nasal Cannula 12/01/22 11:10 57 L 16 124/74 97 Nasal Cannula 12/01/22 10:55 51 L 16 131/81 94 L Nasal Cannula 12/01/22 10:35 61 16 130/78 93 L Nasal Cannula 12/01/22 10:15 59 L 16 119/69 94 L Nasal Cannula 12/01/22 10:10 55 L 16 111/65 94 L Nasal Cannula 12/01/22 10:10 55 L 16 102/59 L 95 Nasal Cannula 12/01/22 08:17 61 17 120/64 95 12/01/22 08:17 54 L O2 Del Method O2 Flow Rate FiO2 12/02/22 06:48 2 12/02/22 06:00 2 12/02/22 05:00 2 12/02/22 00:00 12/02/22 04:00 12/02/22 04:00 12/02/22 03:39 2 12/02/22 03:00 2 12/02/22 02:00 2 12/01/22 23:06 30 12/01/22 23:00 1 12/01/22 20:00 12/01/22 22:00 12/02/22 01:00 2 12/02/22 00:00 2 12/01/22 21:00 12/01/22 20:00 12/01/22 20:00 12/01/22 18:45 2 12/01/22 18:00 2 12/01/22 17:25 2 12/01/22 16:00 12/01/22 13:01 12/01/22 16:25 2 12/01/22 15:25 2 12/01/22 14:25 2 12/01/22 16:36 2 12/01/22 15:00 2 12/01/22 15:54 12/01/22 12:45 2 12/01/22 13:25 2 12/01/22 12:55 2 12/01/22 13:00 2 12/01/22 12:45 2 12/01/22 12:29 2 12/01/22 12:21 2 12/01/22 11:55 2 12/01/22 11:25 2 12/01/22 11:10 2 12/01/22 10:55 2 12/01/22 10:35 2 12/01/22 10:15 2 12/01/22 10:10 2 12/01/22 10:10 2 12/01/22 08:17 Room Air 12/01/22 08:17 Intake and Output 12/01/22 12/01/22 12/02/22 15:59 23:59 07:59 Intake Total 840 / 1090 250 / 250 Output Total 2700 / 4200 1400 / 4200 425 / 425 Balance -2700 / -3110 -560 / -3110 -175 / -175 Intake: Intake, Oral Amount 840 / 1090 250 / 250 Output: Output, Urine Amount 1800 / 2050 250 / 2050 Output, Urine Amount (Catheter) 900 / 2150 1150 / 2150 425 / 425 Milligan 900 / 2150 1
[2022-12-02 07:32] LABS: Basophils # 0.1 K/mm3 (0-0.2); Basophils % 0.6 % (0.1-2.0); Eosinophils # 0.4 K/mm3 (0.0-0.4); Eosinophils % 4.8 % (0.1-12.0); Hematocrit 34.1 % (37.0-47.0); Hemoglobin 10.7 g/dL (12.2-16.2); Lymphocytes # 1.2 K/mm3 (0.7-4.5); Lymphocytes % 16.3 % (10-50); Mean Corpuscular HGB Conc 31.3 g/dL (31.8-35.4); Mean Corpuscular Hemoglobin 29.4 pg (27.0-31.2); Mean Corpuscular Volume 93.9 fl (81-99); Monocytes # 0.9 K/mm3 (0.1-1.0); Monocytes % 11.7 % (1.7-9.3); Neutrophils % 66.6 % (37.0-80.0); Platelet Count 368 K/mm3 (142-424); Red Blood Count 3.64 M/mm3 (4.20-5.40); Red Cell Distribution Width 15.3 % (11.5-17.5); White Blood Count 7.5 K/mm3 (4.8-10.8)
[2022-12-02 07:44] LABS: Chloride 96 mmol/L (98-107); Potassium 3.6 mmoL/L (3.5-5.1); Sodium 136 mmol/L (136-145)
[2022-12-02 07:46] LABS: Blood Urea Nitrogen 18 mg/dl (7-17); Creatinine Clearance Estimated 82 mL/min (50-200); Estimated Glomerular Filt Rate 49 ml/min (>60); GFR (African American) 60 ML/MIN (>60)
[2022-12-02 07:47] LABS: Anion Gap 8.6 mEq/L (5-15); Calcium 8.2 mg/dl (8.4-10.2); Carbon Dioxide 35 mmol/L (22.0-30.0); Glucose 117 mg/dl (74-100); Iron 27 ug/dL (37-170); Magnesium 1.7 mg/dl (1.6-2.3)
[2022-12-02 07:56] LABS: Total Iron Binding Capacity 224 ug/dL (265-497)
[2022-12-02 08:15] LABS: NT Pro Brain Natriuretic Pep. 4770 pg/mL (0-125)
--- NOTE | 2022-12-02 10:03 | PC.NURSE ---
at start of shift pt was on room air. pt noted to have good pleath on spo2 monitor with o2 sats at 86. pt placed on 2lpm at 0745. pt weaned to 1.5 lpm at 0830 weaned to 1 lpm at 0900 weaned to 0.5 lpm 1000 r/t sat 100
--- NOTE | 2022-12-02 10:29 | PC.NURSE ---
1000 om to transfer out of stepdown per Dr Oconnor
--- NOTE | 2022-12-02 11:29 | PC.NURSE ---
pt was offered to get up to chair,pt refused due to being comfortable in bed
[2022-12-02 11:48] LABS: POC Glucose,Bedside 157 (70-110)
[2022-12-02 15:30] LABS: Vitamin B12 489 pg/mL (239-931)
--- NOTE | 2022-12-02 15:59 | HMH.PTEV ---
Physical Therapy Evaluation Rehab PT IP Evaluation Start: 12/02/22 09:51 Freq: ONCE Status: Active Protocol: Document 12/02/22 15:47 JL (Rec: 12/02/22 15:59 JL [id number]) Subjective/History History History Pt is a 67 year old female that presented to [facility] for L heart cath due to concerns of shortness of air and previous history of CAD. While presenting for cardiac cath, pt had increased oxygen requirements including a nonrebreather mask to maintain appropriate oxygen saturations. Pt received IV loop diuretic therapy and oxygen requirements improved. Pt was admitted for inpatient management and further evaluation PMH: atrial fibrillation on chronic anticoagulation with Eliquis, heart failure with reduced ejection fraction, diabetes, hypertension, BMI 39 and pulmonary hypertension. Subjective Subjective Pt presents L sidelying in bed , agreeable to PT initial evaluation but stated that she did not want to get out of bed because she would like to take a nap. Agreeable to sit on EOB. Pt reports 08/28 (B) foot pain at rest. Pt reports that she has been at [facility] since October d/t weakness. Pt reports that she has been using a RW for transfers and gait due to increased weakness. Pt performed supine to sit on EOB with Max A x1. Once upright for ~5s, pt became very apprehensive, SOB and requested to return to supine positioning stating I just need to lay back down . Pt required VC for proper deep breathing techniques. Pt denied reports of pain during
--- NOTE | 2022-12-02 17:20 | PC.NURSE ---
pt has rested in bed this shift. she was assisted with a partial bed bath this am. pt was offered help to get up to the chair in preparation for lunch, pt refused. pt has slept sporadically. PT completed physical therapy eval this afternoon. pt again did not wish to get up to the chair. lung sounds are diminished throughout, bowel sounds are active in all quads. pt appears to have limited mobility while lying in bed. she is noted to have difficulty leaning forward and/or rolling to the side without assistance. nad noted.
[2022-12-02 17:46] LABS: POC Glucose,Bedside 107 (70-110)
[2022-12-02 17:49] LABS: Chloride 94 mmol/L (98-107); Potassium 3.6 mmoL/L (3.5-5.1); Sodium 138 mmol/L (136-145)
[2022-12-02 17:52] LABS: Anion Gap 10.6 mEq/L (5-15); Blood Urea Nitrogen 19 mg/dl (7-17); Carbon Dioxide 37 mmol/L (22.0-30.0); Creatinine Clearance Estimated 82 mL/min (50-200); Estimated Glomerular Filt Rate 49 ml/min (>60); GFR (African American) 60 ML/MIN (>60)
[2022-12-02 17:53] LABS: Glucose 101 mg/dl (74-100)
--- NOTE | 2022-12-02 21:32 | PC.NURSE ---
Catheter leaked, linens changed. Pericare and cath care performed
[2022-12-03] VITALS (12 sets, daily range): BP systolic 98–119; BP diastolic 48–67; PULSE 50–77; RESP 15–19; TEMP 36.7–37.2; O2SAT 83–100; BMI 39.5; BMI 38.3
--- NOTE | 2022-12-03 06:56 | PC.NURSE ---
Patient has rested well this shift. C/O pain to BLE at begining of shift. No acute changes noted. Remains on 1LNC.
[2022-12-03 07:14] LABS: Chloride 94 mmol/L (98-107); Potassium 3.8 mmoL/L (3.5-5.1); Sodium 137 mmol/L (136-145)
[2022-12-03 07:17] LABS: Alanine Aminotransferase 15 U/L (12-78); Albumin/Globulin Ratio 0.8 (1.1-1.8); Alkaline Phosphatase 242 U/L (38-126); Anion Gap 9.8 mEq/L (5-15); Aspartate Amino Transferase 26 U/L (14-36); Bilirubin,Total 0.6 mg/dl (0.2-1.3); Blood Urea Nitrogen 20 mg/dl (7-17); Calcium 8.3 mg/dl (8.4-10.2); Carbon Dioxide 37 mmol/L (22.0-30.0); Creatinine Clearance Estimated 82 mL/min (50-200); Estimated Glomerular Filt Rate 49 ml/min (>60); GFR (African American) 60 ML/MIN (>60); Globulin 3.9 g/dL (1.3-3.2); Glucose 130 mg/dl (74-100); Total Protein,Serum 6.9 g/dl (6.3-8.2)
[2022-12-03 07:18] LABS: Magnesium 1.7 mg/dl (1.6-2.3)
[2022-12-03 07:21] LABS: Basophils # 0.1 K/mm3 (0-0.2); Basophils % 0.8 % (0.1-2.0); Eosinophils # 0.4 K/mm3 (0.0-0.4); Hematocrit 35.8 % (37.0-47.0); Hemoglobin 11.4 g/dL (12.2-16.2); Lymphocytes # 1.2 K/mm3 (0.7-4.5); Mean Corpuscular HGB Conc 31.9 g/dL (31.8-35.4); Mean Corpuscular Hemoglobin 29.8 pg (27.0-31.2); Mean Corpuscular Volume 93.3 fl (81-99); Mean Platelet Volume 9.2 fl (7.4-10.4); Monocytes # 1.1 K/mm3 (0.1-1.0); Monocytes % 12.4 % (1.7-9.3); Neutrophils # 5.8 K/mm3 (1.8-7.8); Neutrophils % 67.8 % (37.0-80.0); Platelet Count 383 K/mm3 (142-424); Red Blood Count 3.84 M/mm3 (4.20-5.40); Red Cell Distribution Width 15.3 % (11.5-17.5); White Blood Count 8.6 K/mm3 (4.8-10.8)
--- NOTE | 2022-12-03 09:44 | EXP.ACUTE.PN ---
Subjective *Date: 12/03/22 *Time: 09:44 Interval history: Patient doing okay this morning. On 2 L nasal cannula on rounds. Tolerating p.o. intake. Diuresing well. Having some irritation from her catheter, will discontinue today. No fevers overnight. Denies any chest pain or dyspnea. States she is actually breathing a little bit better. Is -7 L for her hospitalization, -3.5 over the past 24 hours. Medical Exam Vital signs and Labs for Last 24 Hours: Vital Signs Temp Pulse Pulse Pulse Resp BP Pulse Ox 12/03/22 09:00 77 12/03/22 09:00 73 12/03/22 09:00 89 L 12/03/22 07:25 62 100 12/03/22 07:33 98.0 F 60 15 119/67 96 12/03/22 05:00 12/03/22 04:00 60 12/03/22 04:00 98.4 F 58 L 17 117/48 L 93 L 12/03/22 00:00 60 12/02/22 23:44 98.4 F 58 L 17 101/50 L 98 12/03/22 03:00 12/03/22 00:57 12/02/22 22:00 71 12 122/64 94 L 12/02/22 20:00 60 12/02/22 19:51 98.6 F 67 18 98/60 L 95 12/02/22 18:57 12/02/22 16:00 55 L 12/02/22 17:00 12/02/22 16:00 98.1 F 60 18 113/60 91 L 12/02/22 15:16 12/02/22 13:00 12/02/22 12:00 60 12/02/22 11:15 12/02/22 10:00 63 20 98/62 L 100 O2 Del Method O2 Flow Rate 12/03/22 09:00 12/03/22 09:00 12/03/22 09:00 Room Air 12/03/22 07:25 Nasal Cannula 1 12/03/22 07:33 Nasal Cannula 2 12/03/22 05:00 Nasal Cannula 1 12/03/22 04:00 12/03/22 04:00 Nasal Cannula 12/03/22 00:00 12/02/22 23:44 Nasal Cannula 12/03/22 03:00 Nasal Cannula 1 12/03/22 00:57 Nasal Cannula 2 12/02/22 22:00 Nasal Cannula 3 12/02/22 20:00 12/02/22 19:51 Nasal Cannula 12/02/22 18:57 Nasal Cannula 1 12/02/22 16:00 12/02/22 17:00 Nasal Cannula 1 12/02/22 16:00 Room Air 12/02/22 15:16 Nasal Cannula 0.5 12/02/22 13:00 Nasal Cannula 0.5 12/02/22 12:00 12/02/22 11:15 Nasal Cannula 0.5 12/02/22 10:00 Nasal Cannula 1 Intake and Output 12/02/22 12/03/22 12/03/22 23:59 07:59 15:59 Intake Total 240 / 1090 240 / 240 Output Total 3000 / 4675 650 / 650 Balance -2760 / -3585 -410 / -410 Intake: Intake, Oral Amount 240 / 1090 240 / 240 Output: Output, Urine Amount 1800 / 2750 250 / 250 Output, Urine Amount (Catheter) 1200 / 1925 400 / 400 Milligan 1200 / 1925 400 / 400 Other: Number of Voids 0 Number of Unmeasured Voids 0 1 Weight 107.586 kg Patient Weight 12/03/22 23:59 Weight 107.586 kg Laboratory Results - last 24 hr 12/02/22 06:50: Vitamin B12 489 12/02/22 11:30: POC Glucose 157 H 12/02/22 16:46: POC Glucose 107 12/02/22 17:20: Sodium 138, Potassium 3.6, Chloride 94 L, Carbon Dioxide 37 H, Anion Gap 10.6, BUN 19 H, Creatinine 1.10 H, Estimated Creat Clear 82, Estimated GFR 49 L, Est GFR ( Amer) 60, Glucose 101 H, Calcium 8.0 L 12/03/22 06:30: WBC 8.6, RBC 3.84 L, Hgb 11.4 L, Hct 35.8 L, MCV 93.3, MCH 29.8, MCHC 31.9, RDW 15.3, Plt Count 383, MPV 9.2, Neut % (Auto) 67.8, Lymph % (Auto) 14.0, [place] % (Auto) 12.4 H, Eos % (Auto) 5.0, Baso % (Auto) 0.8, Neut # (Auto) 5.8, Lymph # (Auto) 1.2, [place] # (Auto) 1.1 H, Eos # (Auto) 0.4, Baso # (Auto) 0.1, Sodium 137, Potassium 3.8, Chloride 94 L, Carbon Dioxide 37 H, Anion Gap 9.8, BUN 20 H, Creatinine 1.10 H, Estimated Creat Clear 82, Estimated GFR 49 L, Est GFR ( Amer) 60, Glucose 130 H D, Calcium 8.3 L, Magnesium 1.7, Total Bilirubin 0.6, AST 26, ALT 15, Alkaline Phosphatase 242 H, Total Protein 6.9, Albumin 3.0 L, Globulin 3.9 H, Albumin/Globulin Ratio 0.8 L I & O for Labs for Last 24 Hours: Intake & Output 11/30/22 12/01/22 12/02/22 12/03/22 23:59 23:59 23:59 23:59 Intake Total 840 / 1090 1090 / 1090 240 / 240 Output Total 4100 / 4200 4375 / 4675 650 / 650 Balance -3260 / -3110 -3285 / -3585 -410 / -410 Weight 110.251 kg 107.586 kg 107.586 kg Constitutional: Present no acute distress,
[2022-12-03 11:21] LABS: POC Glucose,Bedside 130 (70-110)
--- NOTE | 2022-12-03 11:36 | PC.NURSE ---
notified dr Oconnor via phone that during pt bath it was noted that she has a yeast like substance in her abdominal folds. to order nystatin powder [id number]
--- NOTE | 2022-12-03 11:37 | PC.NURSE ---
1120 pt o2 on ra noted to be 83% pt placed back on 1 lpm
--- NOTE | 2022-12-03 16:00 | PC.NURSE ---
Pt has rested in her room this shift. she was assisted up to the chair with staff x 2 at approx 1030. pt o2 was weaned to 1lpm. pt o2 was removed for a room air sat which was 83%. Dr majano was notified that o2 had to be replaced. nad noted. pt has crackles noted throughout posteriorly. bowel sounds are active in all quads. pt is a/o x4.
[2022-12-03 17:32] LABS: POC Glucose,Bedside 134 (70-110)
[2022-12-03 21:05] LABS: POC Glucose,Bedside 146 (70-110)
[2022-12-04] VITALS (7 sets, daily range): BP systolic 91–122; BP diastolic 44–68; PULSE 50–81; RESP 17–21; TEMP 36.6–37.5; O2SAT 93–98; BMI 37.4; BMI 38.0
--- NOTE | 2022-12-04 05:14 | PC.NURSE ---
Pt remained AOx3 and slept with 2 L NC throughout most of shift. Treated with PRN pain medication once through shift, pt tolerated. Pt reported multiple episodes of BMs, but upon processes chemical design engineer, only gas passed. Purewick in place. VS notably low, but also Hx of diuresis since admission. Notified NURSING UNIT MANAGER of 0400 hypotension, HR at baseline rate; pt denied any dizziness, weakness, SOB. NURSING UNIT MANAGER stated she is okay with current pressures and MAP based on pt presentation. No other acute needs at this time.
[2022-12-04 06:16] LABS: POC Glucose,Bedside 115 (70-110)
[2022-12-04 06:51] LABS: Basophils # 0.1 K/mm3 (0-0.2); Basophils % 0.8 % (0.1-2.0); Eosinophils # 0.5 K/mm3 (0.0-0.4); Hematocrit 35.9 % (37.0-47.0); Hemoglobin 11.4 g/dL (12.2-16.2); Lymphocytes # 1.5 K/mm3 (0.7-4.5); Lymphocytes % 17.7 % (10-50); Mean Corpuscular HGB Conc 31.7 g/dL (31.8-35.4); Mean Corpuscular Hemoglobin 29.4 pg (27.0-31.2); Mean Corpuscular Volume 92.7 fl (81-99); Mean Platelet Volume 8.8 fl (7.4-10.4); Monocytes # 1.1 K/mm3 (0.1-1.0); Monocytes % 12.4 % (1.7-9.3); Neutrophils # 5.5 K/mm3 (1.8-7.8); Neutrophils % 63.1 % (37.0-80.0); Platelet Count 409 K/mm3 (142-424); Red Blood Count 3.87 M/mm3 (4.20-5.40); Red Cell Distribution Width 15.2 % (11.5-17.5); White Blood Count 8.7 K/mm3 (4.8-10.8)
[2022-12-04 06:55] LABS: Chloride 94 mmol/L (98-107); Potassium 3.9 mmoL/L (3.5-5.1); Sodium 137 mmol/L (136-145)
[2022-12-04 06:57] LABS: Blood Urea Nitrogen 21 mg/dl (7-17); Creatinine Clearance Estimated 71 mL/min (50-200); Estimated Glomerular Filt Rate 45 ml/min (>60); GFR (African American) 54 ML/MIN (>60)
[2022-12-04 06:58] LABS: Alanine Aminotransferase 13 U/L (12-78); Albumin Level 3.1 g/dl (3.5-5.0); Albumin/Globulin Ratio 0.8 (1.1-1.8); Alkaline Phosphatase 229 U/L (38-126); Anion Gap 7.9 mEq/L (5-15); Aspartate Amino Transferase 27 U/L (14-36); Bilirubin,Total 0.6 mg/dl (0.2-1.3); Calcium 8.4 mg/dl (8.4-10.2); Carbon Dioxide 39 mmol/L (22.0-30.0); Glucose 125 mg/dl (74-100); Total Protein,Serum 7.1 g/dl (6.3-8.2)
[2022-12-04 07:14] LABS: Magnesium 1.8 mg/dl (1.6-2.3)
--- NOTE | 2022-12-04 09:31 | HMH.OTEV ---
OT Inpatient Evaluation Rehab OT IP Evaluation Start: 12/02/22 09:51 Freq: ONCE Status: Active Protocol: Document 12/04/22 09:27 GEOVANNY (Rec: 12/04/22 09:31 [id number] Rehab OT IP Assessment Subjective History Pt oriented x 3 on arrival. Pt agreeable to engage in therapy evaluation. Pt is a 67 year old female that presented to [facility] for L heart cath due to concerns of shortness of air and previous history of CAD. While presenting for cardiac cath, pt had increased oxygen requirements including a nonrebreather mask to maintain appropriate oxygen saturations. Pt received IV loop diuretic therapy and oxygen requirements improved. Pt was admitted for inpatient management and further evaluation PMH: atrial fibrillation on chronic anticoagulation with Eliquis, heart failure with reduced ejection fraction, diabetes, hypertension, BMI 39 and pulmonary hypertension. Pt reports that she has been at [facility] since October/. Pt reports that she has been using a RW for transfers and gait due to increased weakness. Pt claims she is normally independent with feeding and dressing. However, they do assist her with bathing for safety concerns. Pt does use O2 at all times 2L NC. Subjective I think I feel a little better. Objective Patient Orientation Person,Place,Birthday Upper Extremity Gross ROM Min Limitation <25% Shoulder ROM Limitations Muscle Weakness Elbow ROM Limitations Muscle Weakness Wrist Limitations of Range of Motion Muscle Weakness Bed Mobility bed mobility-scooting,bed mobility - supine/sit Assist Level M
--- NOTE | 2022-12-04 09:39 | SW/DCPLANNER ---
Addendum entered by Kacey Ho 12/04/22 16:24: Patient's daughter did call regarding discharge questions: I attempted to contact daughter back w/ no answer and VM full at this time. Addendum entered by Kacey Ho 12/04/22 16:03: Patient will discharge to [facility] level of care today. Addendum entered by Kacey Ho 12/04/22 13:35: Per [facility] this patient has been approved to discharge to [facility] level of care. Per Dr Oconnor patient may discharge later today pending CT results. Original Note: Prior to hospital admission patient resided at [facility]. PT/OT evaluated patient and stated that she will need SNF at time of discharge. Patient information has been faxed to [facility] this AM. I will follow up once patient information is reviewed. Per patient is medically stable for discharge today.
--- NOTE | 2022-12-04 09:43 | EXP.PULM.PN ---
Subjective *Date: 12/04/22 *Time: 10:25 Interval history: No acute respiratory vents overnight. Patient admits improvement in respiratory status. Continues to be needing 2 L nasal oxygen supplementation. Pulmonology Exam Inpatient Vital signs and Labs for Last 24 Hours: Temp Pulse Resp BP Pulse Ox O2 Del Method O2 Flow Rate 98 F 58 L 19 96/57 L 95 Nasal Cannula 2 12/04/22 08:00 12/04/22 08:00 12/04/22 08:00 12/04/22 08:00 12/04/22 08:00 12/04/22 09:00 12/04/22 09:00 FiO2 30 12/01/22 23:06 Laboratory Results - last 24 hr 12/03/22 11:08: POC Glucose 130 H 12/03/22 17:17: POC Glucose 134 H 12/03/22 20:51: POC Glucose 146 H 12/04/22 06:09: POC Glucose 115 H 12/04/22 06:17: WBC 8.7, RBC 3.87 L, Hgb 11.4 L, Hct 35.9 L, MCV 92.7, MCH 29.4, MCHC 31.7 L, RDW 15.2, Plt Count 409, MPV 8.8, Neut % (Auto) 63.1, Lymph % (Auto) 17.7, [place] % (Auto) 12.4 H, Eos % (Auto) 6.0, Baso % (Auto) 0.8, Neut # (Auto) 5.5, Lymph # (Auto) 1.5, [place] # (Auto) 1.1 H, Eos # (Auto) 0.5 H, Baso # (Auto) 0.1, Sodium 137, Potassium 3.9, Chloride 94 L, Carbon Dioxide 39 H, Anion Gap 7.9, BUN 21 H, Creatinine 1.20 H, Estimated Creat Clear 71, Estimated GFR 45 L, Est GFR ( Amer) 54 L, Glucose 125 H, Calcium 8.4, Magnesium 1.8, Total Bilirubin 0.6, AST 27, ALT 13, Alkaline Phosphatase 229 H, Total Protein 7.1, Albumin 3.1 L, Globulin 4.0 H, Albumin/Globulin Ratio 0.8 L I & O for Labs for Last 24 Hours: Intake & Output 12/01/22 12/02/22 12/03/2212/04/23 23:59 23:59 23:59 23:59 Intake Total 840 / 1090 1090 / 1090 720 / 720 270 / 270 Output Total 4100 / 4200 4375 / 4675 3250 / 3250 800 / 800 Balance -3260 / -3110 -3285 / -3585 -2530 / -2530 -530 / -530 Weight 243 lb 1 oz 237 lb 3 oz 230 lb 5 oz 224 lb 10.417 oz Constitutional: Present moderate distress Head: Present normocephalic and atraumatic ENT: Present normal exam, normal oropharynx and mucous membranes moist Neck: Present normal inspection and full ROM Respiratory: Present respiratory distress, diminished air movement and able to speak in complete sentences; Absent wheezes Cardiac: Present S1/S2, Tachycardia and radial pulses present GI: Present soft and distention; Absent tenderness or guarding Rectal (female): Present deferred (female): Present deferred Skin: Present intact; Absent cyanosis or jaundice Neuro: Present alert, awake and oriented x 3 Extremities: Present normal inspection; Absent clubbing or cyanosis Psychiatric: Present normal affect and cooperative Assessment and Plan *Assessment and plan (1) Pulmonary hypertension: Status: Acute Category: Medical Code(s): I27.20 - Pulmonary hypertension, unspecified (2) CHF (congestive heart failure): Status: Acute Qualifiers: Heart failure chronicity: acute on chronic Heart failure type: diastolic Qualified Code(s): I50.33 - Acute on chronic diastolic (congestive) heart failure Category: Medical Code(s): I50.9 - Heart failure, unspecified (3) Acute respiratory failure with hypoxia: Status: Acute Category: Medical Code(s): J96.01 - Acute respiratory failure with hypoxia Plan Ms. Flannery is a 67-year-old female no significant smoking history no prior respiratory complaints presented for elective left heart cath procedure found to have disproportionate hypoxic episodes and elevated LVEDP and was eventually admitted to the hospital for further evaluation and volume optimization. Pulmonary was called as patient also had a history of pulmonary hypertension according with RVSP measured at 69. #Pulmonary hypertension: #Acute hypoxic respiratory failure: 67-year-old female with significant smoking history. Echo April 2022 reduced EF is 40 to 50% with an estimated RVSP of 69. RV moderately dilated with reduced function. Left heart cath on this admission mild to moderate nodule limiting coronary artery disease. Severely elevated LVEDP at 35 to 40 mmHg. Most recent
[2022-12-04 11:08] LABS: POC Glucose,Bedside 149 (70-110)
--- NOTE | 2022-12-04 11:33 | EXP.CARD.PN ---
Subjective Subjective Date: 12/04/22 Time: 09:30 Principal diagnosis: CHF, SOA Interval history: This is a 67-year-old white female who was admitted to the hospital post cardiac catheterization for severe biventricular congestive heart failure with profound hypoxemia with movement. The patient had a significantly elevated LVEDP. She has been diuresed with IV Bumex over the weekend. She has diuresed over 10 L over the weekend. She has been switched to oral Bumex this morning. She states at rest her shortness of breath has significantly improved at rest. She states with exertion her shortness of breath has probably improved as well but she is still really short of breath when she is up ambulating. She states that she just worked with physical therapy and feels pretty short of breath since being up and moving around. Her lower extremity edema has improved. She denies any chest pain or pressure. She denies any fever, chills, nausea, vomiting or diarrhea. She still has some associated orthopnea with her shortness of breath but this continues to improve as well. She is on room air during my physical examination satting 96%. Exam Data for Last 24 hours Vital signs and Labs for Last 24 Hours: Temp Pulse Resp BP Pulse Ox O2 Del Method O2 Flow Rate 98 F 58 L 19 96/57 L 94 L Nasal Cannula 2 12/04/22 08:00 12/04/22 08:00 12/04/22 08:00 12/04/22 08:00 12/04/22 08:00 12/04/22 09:00 12/04/22 09:00 FiO2 30 12/01/22 23:06 Laboratory Results - last 24 hr 12/03/22 17:17: POC Glucose 134 H 12/03/22 20:51: POC Glucose 146 H 12/04/22 06:09: POC Glucose 115 H 12/04/22 06:17: WBC 8.7, RBC 3.87 L, Hgb 11.4 L, Hct 35.9 L, MCV 92.7, MCH 29.4, MCHC 31.7 L, RDW 15.2, Plt Count 409, MPV 8.8, Neut % (Auto) 63.1, Lymph % (Auto) 17.7, [place] % (Auto) 12.4 H, Eos % (Auto) 6.0, Baso % (Auto) 0.8, Neut # (Auto) 5.5, Lymph # (Auto) 1.5, [place] # (Auto) 1.1 H, Eos # (Auto) 0.5 H, Baso # (Auto) 0.1, Sodium 137, Potassium 3.9, Chloride 94 L, Carbon Dioxide 39 H, Anion Gap 7.9, BUN 21 H, Creatinine 1.20 H, Estimated Creat Clear 71, Estimated GFR 45 L, Est GFR ( Amer) 54 L, Glucose 125 H, Calcium 8.4, Magnesium 1.8, Total Bilirubin 0.6, AST 27, ALT 13, Alkaline Phosphatase 229 H, Total Protein 7.1, Albumin 3.1 L, Globulin 4.0 H, Albumin/Globulin Ratio 0.8 L 12/04/22 10:56: POC Glucose 149 H I & O for Last 24 hours: Intake & Output 12/01/22 12/02/22 12/03/22 12/04/22 23:59 23:59 23:59 23:59 Intake Total 840 / 1090 1090 / 1090 720 / 720 270 / 270 Output Total 4100 / 4200 4375 / 4675 3250 / 3250 800 / 800 Balance -3260 / -3110 -3285 / -3585 -2530 / -2530 -530 / -530 Weight 243 lb 1 oz 237 lb 3 oz 230 lb 5 oz 224 lb 10.417 oz Constitutional Constitutional: no acute distress and morbidly obese *Routine HEENT Exam Head: Present normocephalic and atraumatic ENT: Present mucous membranes moist *Routine Neck Exam Neck: Present supple, full ROM and normal carotid upstroke; Absent JVD, carotid bruit or lymphadenopathy *Routine Respiratory Exam Respiratory: Present CTA bilaterally, normal respiratory effort, able to speak in complete sentences and symmetric chest movement *Routine Cardiovascular Exam Cardiovascular: Present RRR, Normal S1 and Normal S2; Absent murmur or gallop *Routine Abdominal Exam Abdominal: Present soft and normoactive bowel sounds; Absent tenderness, distended or organomegaly *Routine Extremities Exam Extremities: Present edema (1-2+ BLE edema), full ROM, pulses intact and normal capillary refill; Absent cyanosis or clubbing *Routine Skin Exam Skin: Present intact and warm; Absent erythema *Routine Neurological Exam Neurological: Present alert, oriented X3 and CN II-XII intact; Absent sensory deficit or motor deficit Routine Psychiatric Exam Psychiatric: Present normal affect Progress Note: A&P Assessment and plan (1) CHF (congestive heart failure): Status: Acute (2) Pulmonary hypertension: Status: Acute (3) Acute
--- NOTE | 2022-12-04 13:38 | CT_ITS ---
FINAL REPORT TECHNIQUE: Then section axial CT images of the chest were obtained with contrast. Three-D reformatted images were also obtained.This study was performed with techniques to keep radiation doses as low as reasonably achievable (ALARA). Individualized dose reduction techniques using automated exposure control or adjustment of mA and/or kV according to the patient's size were employed. CLINICAL HISTORY: dyspnea with exertion. COMPARISON: None FINDINGS: There is no evidence of pulmonary embolism. There is no evidence of thoracic aortic aneurysm or dissection. There is enlargement of the central pulmonary arteries consistent with pulmonary arterial hypertension. There is cardiomegaly with significant enlargement of the right heart. Anasarca is present as well. There are multiple mildly enlarged mediastinal nodes, nonspecific, favor reactive. There are bilateral pleural effusions present, larger on the right than on the left. Mild bibasilar atelectasis is present as well. There is no evidence of pulmonary mass or suspicious nodule. No localized inflammatory process is seen within the lungs. Limited images of the upper abdomen reveal anasarca. IMPRESSION: No evidence of pulmonary embolism. Enlarged central pulmonary arteries consistent with pulmonary arterial hypertension. There is cardiomegaly with significant enlargement of the right heart. Bilateral pleural effusions larger on the right, and mild bibasilar atelectasis. There are multiple mildly enlarged mediastinal nodes, nonspecific but favor reactive. Reviewed, Interpreted and Dictated by Monico Gotti III, MD Transcribed by Zoya Reyes Authenticated and [facility]
--- NOTE | 2022-12-04 14:23 | PC.NURSE ---
Report received from Brian Cordova.
--- NOTE | 2022-12-04 14:26 | EXP.DC.SUM ---
General Admission date:: 12/01/22 Discharge date: 12/04/22 HPI HPI HPI: This is a 67-year-old female that presents to [facility] for left heart cath secondary to concerns of shortness of air and previous history of coronary artery disease. Her past medical history is significant for atrial fibrillation on chronic anticoagulation with Eliquis, heart failure with reduced ejection fraction, diabetes, hypertension, BMI 39 and pulmonary hypertension. Upon presentation for her cardiac cath oxygen requirements were identified requiring nonrebreather mask for appropriate oxygen saturations. She received IV loop diuretic therapy and her oxygen requirements improved. In the lab pack chemist significant anasarca was identified extending to mid thighs. Her cardiac cath identified no flow-limiting disease and LVEDP 35 to 40 mmHg. An echocardiogram from April 2022 identified reduced ejection fraction of 40% with RVSP 69 mmHg. 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 Hospital Course Hospital Course Hospital Course: Mrs. Flannery is a 67-year-old female that presents for left heart cath and was found to be in respiratory distress that resolved with IV loop diuretic therapy. Her LVEDP is elevated and outpatient echo identified RVSP 69 mmHg. She is admitted with cardiology and pulmonology consultations. She has shown significant response to diuresis. Negative over 10 L since admission. Tolerating room air at rest but requiring 2 L with exertion. Stable for discharge to rehab for continued therapy and medical management. Problems addressed during admission as follows: Anasarca Acute on chronic HFrEF Pulmonary hypertension Patient severely volume overloaded with pulmonary hypertension on admission. Started on aggressive diuresis with Bumex drip. Responded well with transition to oral Bumex twice daily by day of discharge. Negative over 10 L for admission. We will continue Bumex 2 mg twice daily, spironolactone 100 mg daily, Entresto 24/26 twice daily and metoprolol 50 mg daily for heart failure. Needs follow-up with pulmonology and cardiology in the coming weeks. Recommend repeat CBC, CMP, magnesium in 1 week to monitor electrolyte stability. Patient evaluated by PT and OT, given debility, would benefit from rehab before returning back to her personal-care setting. Coronary artery disease Left heart cath 12/01/2022 with nonflow limiting disease. Would benefit from right heart cath as an outpatient. Continue aspirin and Plavix daily. Initiated on statin therapy with high intensity Lipitor. Continue beta-dora as below. Atrial fibrillation Monitored on telemetry. Rate controlled with metoprolol 50 mg daily. Continue Eliquis twice daily. Chronic anemia Iron studies showing low levels with iron of 27, saturation 12%. Continue iron replacement therapy and daily pantoprazole. Hypomagnesemia: replacing magnesium p.o. twice daily with 400 mg PO. Magnesium 1.7 today. Repeat magnesium level in 1 week. Spent 40 minutes in discharge counseling, documentation, chart review, discussion with subspecialist, and direct care with patient. Exam Data for Last 24 hours Vital signs and Labs for Last 24 Hours: Temp Pulse Resp BP Pulse Ox O2 Del Method O2 Flow Rate 98.1 F 81 18 122/63 93 L Nasal Cannula 2 12/04/22 12:00 12/04/22 12:00 12/04/22 12:00 12/04/22 12:00 12/04/22 12:00 12/04/22 12:33 12/04/22 12:33 FiO2 30 12/01/22 23:06 Laboratory Results - last 24 hr 12/03/22 17:17: POC Glucose 134 H 12/03/22 20:51: POC Glucose 146 H 12/04/22 06:09: POC Glucose 115 H 12/04/22 06:17: WBC 8.7, RBC 3.87 L, Hgb 11.4 L, Hct 35.9 L, MCV 92.7, MCH 29.4, MCHC 31.7 L, RDW 15.2, Plt Count 409, MPV 8.8, Neut % (Auto) 63.1, Lymph % (Auto) 17.7, [place] % (Auto) 12.4 H, Eos % (Auto) 6.0, Baso % (Auto) 0.8, Neut # (Auto) 5.5, Lymph # (Auto) 1.5, [place] # (Auto) 1.1 H, Eos # (Aut
--- NOTE | 2022-12-04 16:08 | PC.NURSE ---
Report called to Nimo at [facility].
== END 2022-12-04 16:54 | DRG 286 ==
LOC: 2ND 11:22
PROVIDERS: Internal Medicine; Internal Medicine Adolescent Medicine; Admitting Provider Family Medicine; PCP Family Medicine; Visit Provider Family Medicine
PROC: 4A023N7 Measurement of Cardiac Sampling and Pressure, Left Heart, Percutaneous Approach (ICD-10-PCS; principal; 2022-12-01 08:30)
DX: I50.23 Acute on chronic systolic (congestive) heart failure (principal); J96.01 Acute respiratory failure with hypoxia; I48.11 Longstanding persistent atrial fibrillation; I27.20 Pulmonary hypertension, unspecified; E11.9 Type 2 diabetes mellitus without complications; Z99.81 Dependence on supplemental oxygen; Z79.01 Long term (current) use of anticoagulants; D64.89 Other specified anemias; K21.9 Gastro-esophageal reflux disease without esophagitis; I25.119 Atherosclerotic heart disease of native coronary artery with unspecified angina pectoris
CPT/HCPCS: 36415; 71045; 71275; 80048; 80053; 81001; 82607; 82803; 82962; 83540; 83550; 83735; 83880; 85025; 87086; 93306; 93458; 94640; 94660; 97163; 97166; 97530; 99152; C1725; C1769; J1644; Q9967

== ENCOUNTER 2022-12-17 11:54 | Observation (INO) | payer MEDICARE, BC, SELFPAY ==
[2022-12-17] VITALS (12 sets, daily range): BP systolic 101–139; BP diastolic 55–78; PULSE 60–73; RESP 16–20; TEMP 37.1; O2SAT 93–100; BMI 32.1; BMI 31.1
--- NOTE | 2022-12-17 11:57 | CT_ITS ---
PROCEDURE INFORMATION: Exam: CT Head Without Contrast Exam date and time: 12/17/2022 12:12 PM Age: 67 years old Clinical indication: Injury or trauma; Fall; Blunt trauma (contusions or hematomas); Additional info: Fall on eliquis TECHNIQUE: Imaging protocol: Computed tomography of the head without contrast. Radiation optimization: All CT scans at this facility use at least one of these dose optimization techniques: automated exposure control; mA and/or kV adjustment per patient size (includes targeted exams where dose is matched to clinical indication); or iterative reconstruction. REPORTING DATA: Count of CT and Cardiac NM exams in prior 12 months: This patient has received 5 known CTs and 0 known cardiac nuclear medicine studies in the 12 months prior to the current study. COMPARISON: CT HEAD/BRAIN WO CON 10/22/2022 11:18 AM FINDINGS: Brain: There is no evidence of acute intracranial hemorrhage, extra-axial collection or locoregional mass effect. There are scattered hypodensities in the periventricular and subcortical white matter. The appearance is nonspecific, but most likely represents chronic small vessel disease in a person of this age. There is redemonstration of mineralization focus in the reg. Cerebral ventricles: The ventricles, sulci and cisterns are normal in size and configuration for patient's age. No hydrocephalus or midline structure shift Pituitary gland and sella: Sellar/parasellar structures, craniocervical junction and orbits are unremarkable Paranasal sinuses: Visualized sinuses are unremarkable. No fluid levels. Mastoid air cells: Visualized mastoid air cells are well aerated. Bones/joints: No calvarial fracture Soft tissues: Small superior scalp hematoma. IMPRESSION: 1. No acute intracranial abnormality. No calvarial fracture. 2. Small superior scalp hematoma.
--- NOTE | 2022-12-17 11:57 | XR_ITS ---
PROCEDURE INFORMATION: Exam: XR Chest Exam date and time: 12/17/2022 12:35 PM Age: 67 years old Clinical indication: Injury or trauma; Fall; Blunt trauma (contusions or hematomas); Additional info: Fall on eliquis TECHNIQUE: Imaging protocol: Radiologic exam of the chest. Views: 1 view. COMPARISON: CR XR CHEST PORTABLE 12/01/2022 2:57 PM FINDINGS: Lungs: No dense pulmonary consolidation. Pleural spaces: Small bilateral pleural effusions. Prominent central pulmonary vasculature. Heart/Mediastinum: Cardiomegaly. Aortic atherosclerosis. Diaphragm: Chronic right hemidiaphragm elevation. Bones/joints: Unremarkable. No acute fracture. IMPRESSION: Cardiomegaly. Small bilateral pleural effusions. Prominent central pulmonary vasculature. Findings overall concerning for pulmonary edema. No acute fracture.
--- NOTE | 2022-12-17 11:57 | PC.NURSE ---
RADIOLOGY NOTIFIED OF CT SCAN
--- NOTE | 2022-12-17 11:59 | HMH.EDGENADL ---
Discharge Plan Disposition Patient Disposition: Admitted Condition: Good Clinical Impressions Clinical Impression: WALE (acute kidney injury) Laceration of occipital region of scalp Qualifiers: Encounter type: initial encounter Qualified Code(s): S01.01XA - Laceration without foreign body of scalp, initial encounter Discharge ED Provider: Shaun Campos General Adult HPI General Chief complaint: Fall Stated complaint: Fall Time Seen by Provider: 12/17/22 11:57 History of Present Illness HPI narrative: This 67-year-old female currently in subacute rehab presents to the emergency department after fall. She was ambulating from the bathroom try to get back in her chair when she fell striking the back of her skull. She did not lose consciousness. She does take blood thinners, patient is on Eliquis. She has a history of atrial fibrillation, CHF, hyperlipidemia. Patient denies pain anywhere except mild pain in the back of her head. She did start having nausea and vomiting upon arrival in the emergency department. Patient denies pain elsewhere. She states she does not think she has any other injuries at this time. Related Data Home Medications Medication Instructions Recorded Confirmed duloxetine 60 mg capsule,delayed 60 mg PO DAILY mood 09/27/22 12/17/22 release sennosides 8.6 mg-docusate sodium 1 tab PO HS Constipation 09/27/22 12/17/22 50 mg tablet (Senna-S) sitagliptin phosphate 50 mg tablet 50 mg PO DAILY Diabetes 09/27/22 12/17/22 (Januvia) cholecalciferol (vitamin D3) 50 50 mcg PO DAILY Supplement 09/28/22 12/17/22 mcg (2,000 unit) tablet ferrous sulfate 325 mg (65 mg 325 mg PO DAILY Supplement 09/28/22 12/17/22 iron) tablet,delayed release magnesium oxide 400 mg PO DAILY Supplement 09/28/22 12/17/22 melatonin 5 mg tablet 5 mg PO HS sleep 09/28/22 12/17/22 meclizine 25 mg tablet 25 mg PO DAILY PRN Motion Sickness 10/26/22 12/17/22 dapagliflozin propanediol 10 mg 10 mg PO DAILY Diabetes 11/27/22 12/17/22 tablet nystatin 100,000 unit/gram topical 1 applic topical BID Skin 11/27/22 12/17/22 powder ([facility]) Irritation acetaminophen 500 mg tablet 500 mg PO Q6HP PRN Mild Pain 12/01/22 12/17/22 (Acetaminophen Extra Strength) (Scale Score 1-4) apixaban 5 mg tablet (Eliquis) 5 mg PO BID Blood Thinner/Afib 12/01/22 12/17/22 metoprolol succinate 50 mg 50 mg PO DAILY High Blood Pressure 12/01/22 12/17/22 tablet,extended release 24 hr nortriptyline 25 mg capsule 25 mg PO HS Mood 12/01/22 12/17/22 tramadol 50 mg tablet 50 mg PO Q6HP PRN Moderate Pain 12/01/22 12/17/22 (Scale Score 5-6) famotidine 20 mg tablet 20 mg PO DAILYP Acid Reflux 12/13/22 12/17/22 Previous Rx's Medication Instructions Recorded aspirin 81 mg tablet,delayed 81 mg PO DAILY #0 tabs 12/04/22 release atorvastatin 40 mg tablet 40 mg PO HS #0 tabs 12/04/22 sacubitril 24 mg-valsartan 26 mg 1 tab PO BID 30 days #0 tabs 12/04/22 tablet (Entresto) bumetanide 2 mg tablet 2 mg PO DAILY #90 tabs 12/13/22 pantoprazole 40 mg tablet,delayed 40 mg PO HS #0 tabs 12/13/22 release spironolactone 50 mg tablet 50 mg PO DAILY 30 days #90 tabs 12/13/22 Allergies Allergy/AdvReac Type Severity Reaction Status Date / Time levofloxacin Allergy Verified 12/17/22 14:05 meperidine Allergy Verified 12/17/22 14:05 PFS PFS Disclaimer: The information contained in this section may have been updated after the patient was seen, as this information can be updated by other users. Medical History (Updated 12/17/22 @ 16:19 by Shaun Campos MD) Atrial fibrillation BMI 39.0-39.9,adult CAD in [place] artery Chronic anemia Chronic anticoagulation Constipation Coronary artery disease Depression Diabetes GERD (gastroesophageal reflux disease) HFrEF (heart failure with reduced ejection fraction) Hyperkalemia Hypertension Hypotension Oxygen dependent Pulmonary hypertension Renal insufficiency Surgical History (Reviewed 12/13/22 @ 09:46
--- NOTE | 2022-12-17 12:00 | CT_ITS ---
PROCEDURE INFORMATION: Exam: CT Cervical Spine Without Contrast Exam date and time: 12/17/2022 12:14 PM Age: 67 years old Clinical indication: Injury or trauma; Fall; Blunt trauma TECHNIQUE: Imaging protocol: Computed tomography of the cervical spine without contrast. Radiation optimization: All CT scans at this facility use at least one of these dose optimization techniques: automated exposure control; mA and/or kV adjustment per patient size (includes targeted exams where dose is matched to clinical indication); or iterative reconstruction. REPORTING DATA: Count of CT and Cardiac NM exams in prior 12 months: This patient has received 5 known CTs and 0 known cardiac nuclear medicine studies in the 12 months prior to the current study. COMPARISON: CT CERVICAL SPINE WO CON 10/22/2022 11:21 AM FINDINGS: Bones/joints: Vertebral alignment is maintained. There is preservation of vertebral body heights. Facet joints are aligned. Odontoid process is intact. Atlantoaxial interval maintained. No acute fracture. Uncovertebral and facet arthropathy result in varying degrees of neural foraminal narrowing at multiple levels. Lungs: Lung apices are normal. Soft tissues: Prevertebral and paravertebral soft tissues are maintained IMPRESSION: No acute fracture. No traumatic subluxation.
--- NOTE | 2022-12-17 12:03 | PC.NURSE ---
Edita collar placed on pt at this time,call light at bs
--- NOTE | 2022-12-17 12:21 | PC.NURSE ---
PT RETURNED FROM CT
[2022-12-17 13:00] LABS: Basophils # 0.1 K/mm3 (0-0.2); Eosinophils # 0.3 K/mm3 (0.0-0.4); Eosinophils % 3.5 % (0.1-12.0); Hematocrit 46.1 % (37.0-47.0); Hemoglobin 14.9 g/dL (12.2-16.2); Lymphocytes # 1.4 K/mm3 (0.7-4.5); Lymphocytes % 14.3 % (10-50); Mean Corpuscular HGB Conc 32.2 g/dL (31.8-35.4); Mean Corpuscular Hemoglobin 29.2 pg (27.0-31.2); Mean Corpuscular Volume 90.6 fl (81-99); Mean Platelet Volume 8.4 fl (7.4-10.4); Monocytes # 1.3 K/mm3 (0.1-1.0); Monocytes % 13.8 % (1.7-9.3); Neutrophils # 6.4 K/mm3 (1.8-7.8); Neutrophils % 67.4 % (37.0-80.0); Platelet Count 441 K/mm3 (142-424); Red Blood Count 5.09 M/mm3 (4.20-5.40); Red Cell Distribution Width 14.9 % (11.5-17.5); White Blood Count 9.5 K/mm3 (4.8-10.8)
[2022-12-17 13:02] LABS: Chloride 90 mmol/L (98-107); Sodium 129 mmol/L (136-145)
[2022-12-17 13:04] LABS: Blood Urea Nitrogen 79 mg/dl (7-17); Creatinine Clearance Estimated 29 mL/min (50-200); Estimated Glomerular Filt Rate 19 ml/min (>60); GFR (African American) 23 ML/MIN (>60)
[2022-12-17 13:05] LABS: Alanine Aminotransferase 21 U/L (12-78); Albumin Level 4.2 g/dl (3.5-5.0); Albumin/Globulin Ratio 0.9 (1.1-1.8); Alkaline Phosphatase 281 U/L (38-126); Aspartate Amino Transferase 45 U/L (14-36); Bilirubin,Total 1.1 mg/dl (0.2-1.3); Calcium 9.2 mg/dl (8.4-10.2); Globulin 4.8 g/dL (1.3-3.2); Glucose 96 mg/dl (74-100); Potassium 5.8 mmoL/L (3.5-5.1)
[2022-12-17 13:08] LABS: Activated Partial Thrombo Time 36.9 seconds (22.8-30.6); INR 1.27 (0.9-1.1); Prothrombin Time 13.5 seconds (10.1-12.5)
[2022-12-17 13:16] LABS: Anion Gap 14.8 mEq/L (5-15); Carbon Dioxide 30 mmol/L (22.0-30.0)
--- NOTE | 2022-12-17 13:22 | ECG_ITS ---
APPROVED REPORT Exam: Resting ECG HR:68 bpm ECG Measurements Heart Rate 68 AXES QRSd 95 QRS 103 QT 407 T 47 QTc 425 Conclusion ATRIAL FIBRILLATION INDETERMINATE AXIS LOW QRS VOLTAGE IN PRECORDIAL LEADS [QRS DEFLECTION < 1.0 mV IN CHEST LEADS] INCOMPLETE RIGHT BUNDLE BRANCH BLOCK [90+ ms QRS DURATION, TERMINAL R IN V1/V2, 40+ ms S IN I/aVL/V4/V5/V6] ST DEVIATION AND MODERATE T-WAVE ABNORMALITY, CONSIDER ANTERIOR ISCHEMIA [-0.1+ mV T-WAVE IN V3/V4] ABNORMAL ECG UNCONFIRMED REPORT Electronically signed by : Dino Walters MD 12/18/2022 20:26:22
[2022-12-17 14:25] LABS: Microscopic, Urine URINE MICROSCOPIC (MICROSCOPIC)
[2022-12-17 14:30] LABS: Appearance,Urine CLEAR (Clear); Bilirubin,Urine Negative (Negative); Blood, Urine 3+ (Negative); Color,Urine YELLOW (Yellow); Glucose,Urine (UA) Negative (Negative); Ketones,Urine Negative (Negative); Leukocyte Esterase,Urine 1+ (Negative); Nitrate,Urine Negative (Negative); Protein,Urine Negative (Negative); Urobilinogen,Urine 0.2 EU/dl (0.2)
--- NOTE | 2022-12-17 14:40 | EXP.HP ---
History of Present Illness *Admission Date: 12/17/22 *Reason for visit:: Fall *History of present illness: Ms. lorenzo is a 67-year-old female who resides at [facility] for rehab after recent admission 2 weeks ago for acute on chronic heart failure and volume overload. She has been taking her medications as prescribed including diuretics. She presented to the ER today after a fall while ambulating from the bathroom to get back in her chair. She fell striking the back of her head. Denies any loss of consciousness. She is on Eliquis for her A-fib. Imaging of her head did not show any intracranial pathology. Laceration repaired in the ER. Labs however show WALE and elevated potassium. Denies nausea, vomiting, chest pain, confusion. Has not been drinking as much fluid per report from the ER but on report to me she states she has been eating and drinking normally. ER contacted medicine for admission for further management of her WALE. On evaluation, she appears comfortable. Is stable on 2 L oxygen which she was discharged on 2 weeks ago. No other acute complaints. [facility] Disclaimer: The information contained in this section may have been updated after the patient was seen, as this information can be updated by other users. Medical History Atrial fibrillation BMI 39.0-39.9,adult CAD in [place] artery Chronic anemia Chronic anticoagulation Constipation Coronary artery disease Depression Diabetes GERD (gastroesophageal reflux disease) HFrEF (heart failure with reduced ejection fraction) Hyperkalemia Hypertension Hypotension Oxygen dependent Pulmonary hypertension Renal insufficiency Surgical History Status post left heart catheterization Family History Family history of cancer Social History Smoking Status: Former smoker alcohol intake: never current occupational status: unemployed Travel in the last 8 weeks: None Review of Systems Review of Systems Review of systems (narrative): 14 point review of systems performed, pertinent positives and negatives as per HPI Constitutional Constitutional: Reports headache(s) and Denies weakness ENT Ears, Nose, Mouth, and Throat: Denies dizziness and Reports headache(s) *Musculoskeletal Musculoskeletal: Denies numbness and Denies tingling *Neurologic Neurologic: Denies dizziness, Reports headache(s), Denies numbness, Denies tingling and Denies weakness Meds Home Medications and Allergies Home Medications Medication Instructions Recorded Confirmed Type duloxetine 60 mg capsule,delayed 60 mg PO DAILY mood 09/27/22 12/17/22 History release sennosides 8.6 mg-docusate sodium 1 tab PO HS Constipation 09/27/22 12/17/22 History 50 mg tablet (Senna-S) sitagliptin phosphate 50 mg tablet 50 mg PO DAILY Diabetes 09/27/22 12/17/22 History (Januvia) cholecalciferol (vitamin D3) 50 50 mcg PO DAILY Supplement 09/28/22 12/17/22 History mcg (2,000 unit) tablet ferrous sulfate 325 mg (65 mg 325 mg PO DAILY Supplement 09/28/22 12/17/22 History iron) tablet,delayed release magnesium oxide 400 mg PO DAILY Supplement 09/28/22 12/17/22 History melatonin 5 mg tablet 5 mg PO HS sleep 09/28/22 12/17/22 History meclizine 25 mg tablet 25 mg PO DAILY PRN Motion Sickness 10/26/22 12/17/22 History dapagliflozin propanediol 10 mg 10 mg PO DAILY Diabetes 11/27/22 12/17/22 History tablet nystatin 100,000 unit/gram topical 1 applic topical BID Skin 11/27/22 12/17/22 History powder ([facility]) Irritation acetaminophen 500 mg tablet 500 mg PO Q6HP PRN Mild Pain 12/01/22 12/17/22 History (Acetaminophen Extra Strength) (Scale Score 1-4) apixaban 5 mg tablet (Eliquis) 5 mg PO BID Blood Thinner/Afib 12/01/22 12/17/22 History metoprolol succinate 50 mg 50 mg PO DAILY High Blood Pressure
[2022-12-17 14:52] LABS: Bacteria,Urine 1+ /lpf
--- NOTE | 2022-12-17 15:22 | PC.NURSE ---
call made to [facility] on second floor
--- NOTE | 2022-12-17 15:45 | PC.NURSE ---
arrived by stretcher from ED
[2022-12-17 16:58] LABS: NT Pro Brain Natriuretic Pep. 3460 pg/mL (0-125)
[2022-12-17 20:36] LABS: POC Glucose,Bedside 96 (70-110)
[2022-12-18 04:00] VITALS: BP 102/57; PULSE 68; RESP 17; TEMP 36.5; O2SAT 99; BMI 31.1
[2022-12-18 05:16] LABS: POC Glucose,Bedside 101 (70-110)
--- NOTE | 2022-12-18 05:46 | PC.NURSE ---
PATIENT C/O ACHES AND PAIN IN BACK/JOINTS S/P FALL YESTERDAY NO LOC BUT RESULTED IN SMALL LACERATION TO OCIPITAL AREA. 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 RECEIVED NORCO 5/325 1 TAB AT 1952 WHICH WAS EFFECTIVE FOR SHORT PERIOD OF TIME. MEDICATED WITH TYLENOL #3 1 TAB ONE DOSE ONLY AT 2235 WHICH WAS EFFECTIVE FOR THE REST OF THE SHIFT. VSS/AFEBRILE. BLOOD SUGARS 96 AND 101 THIS SHIFT.
[2022-12-18 06:12] LABS: Basophils # 0.1 K/mm3 (0-0.2); Basophils % 1.1 % (0.1-2.0); Eosinophils # 0.4 K/mm3 (0.0-0.4); Eosinophils % 3.4 % (0.1-12.0); Hematocrit 44.9 % (37.0-47.0); Hemoglobin 14.4 g/dL (12.2-16.2); Lymphocytes # 1.7 K/mm3 (0.7-4.5); Lymphocytes % 16.4 % (10-50); Mean Corpuscular HGB Conc 32.2 g/dL (31.8-35.4); Mean Platelet Volume 8.6 fl (7.4-10.4); Monocytes # 1.1 K/mm3 (0.1-1.0); Monocytes % 10.5 % (1.7-9.3); Neutrophils # 7.2 K/mm3 (1.8-7.8); Neutrophils % 68.6 % (37.0-80.0); Platelet Count 470 K/mm3 (142-424); Red Blood Count 4.99 M/mm3 (4.20-5.40); Red Cell Distribution Width 15.1 % (11.5-17.5); White Blood Count 10.5 K/mm3 (4.8-10.8)
[2022-12-18 06:24] LABS: Chloride 92 mmol/L (98-107); Potassium 5.8 mmoL/L (3.5-5.1); Sodium 128 mmol/L (136-145)
[2022-12-18 06:26] LABS: Alanine Aminotransferase 20 U/L (12-78); Aspartate Amino Transferase 42 U/L (14-36); Blood Urea Nitrogen 75 mg/dl (7-17); Creatinine Clearance Estimated 32 mL/min (50-200); Estimated Glomerular Filt Rate 22 ml/min (>60); GFR (African American) 27 ML/MIN (>60)
[2022-12-18 06:27] LABS: Albumin/Globulin Ratio 0.9 (1.1-1.8); Alkaline Phosphatase 256 U/L (38-126); Anion Gap 13.8 mEq/L (5-15); Bilirubin,Total 1.2 mg/dl (0.2-1.3); Calcium 9.1 mg/dl (8.4-10.2); Carbon Dioxide 28 mmol/L (22.0-30.0); Globulin 4.4 g/dL (1.3-3.2); Glucose 111 mg/dl (74-100); Magnesium 2.4 mg/dl (1.6-2.3); Total Protein,Serum 8.4 g/dl (6.3-8.2)
[2022-12-18 07:38] VITALS: BP 90/58; PULSE 73; RESP 17; TEMP 36.3; O2SAT 99
--- NOTE | 2022-12-18 07:46 | P.CONPHA_ITS ---
Pharmacy Intervention Comments: HOME MEDICATION LIST VERIFIED USING LIST FROM RESIDENTIAL
--- NOTE | 2022-12-18 10:17 | HMH.PTEV ---
Physical Therapy Evaluation Rehab PT IP Evaluation Start: 12/18/22 08:15 Freq: ONCE Status: Active Protocol: Document 12/18/22 10:11 PHOTANNER (Rec: 12/18/22 10:17 PHORNE [id number]) Subjective/History History History 67 yowf adm to [facility] with WALE after fall at SNF. She lives with family at baseline and is generally independent with all mobility using a RW. She has been at subacute rehab for some time now and currently requires assist with all ADLs. Subjective Subjective Pt had no c/o this am. I feel a lot better than I did yesterday. New diagnosis of cancer in past 12 No months? Rehab PT IP Eval Objective Appearance Patient Behavior Appropriate Patient Orientation Person,Place,Time Difficulty following instructions none Speech Pattern Clear Ambulation Patient Able to Ambulate Yes Ambulation Observation IP General Gait Pattern Observation Shuffling Step Ambulation Distance (feet) 3 Ambulation Assistive Device Rolling Walker Ambulation Ability Minimal x 1 (25% assist) Balance Ability to Arise Able, uses arms to help Sitting Balance Steady, safe Standing Balance Steady, wide stance Dynamic Sitting Balance Ability Good Dynamic Standing Balance Ability Fair Transfers Bed Transfer Ability Minimal x 1 (25% assist) Chair Transfer Ability Minimal x 1 (25% assist) Sit to Stand Bed Transfer Ability Minimal x 1 (25% assist) Sit to Stand Chair Transfer Ability Minimal x 1 (25% assist) ROM All Extremities PT ROM Status WFL MMT All Extremities PT MMT WFL Rehab PT IP prob,goals,plan Problems Date of Evaluation: 12/18/22 PT IP Problems Bed Mobility,Transfers,Gait, Self care Rehab Potential Rehab Potential Good Plan PT Intervention Plan Bed Mobility,Transfers,Gait, Safety,Therapeutic Exercise PT Plan Frequency Daily Duration LOS Discharge Goals Bed Transfer Ability Contact Guard/Hand Hold Sit to Stand Chair Transfer Ability Contact Guard/Hand Hold Ambulation Assistive Device Rolling Walker Ambulation Distance (feet) 10 Discharge Plan PT Discharge Plan Pt is most appropriate to return to rehab placement once medically stable for d/c.
--- NOTE | 2022-12-18 10:28 | HMH.OTEV ---
OT Inpatient Evaluation Rehab OT IP Evaluation Start: 12/18/22 08:15 Freq: ONCE Status: Active Protocol: Document [facility]/18/22 10:24 [facility] (Rec: 12/18/22 10:28 [facility] [id number]) Rehab OT IP Assessment Subjective History Pt oriented x 3 on arrival. Pt agreeable to engage in therapy evaluation. Pt is a [address] [facility] with WALE after fall at SNF. She lives with family at baseline and is generally independent with all mobility using a RW. She also claims prior to recent illness she was independent with all ADLs and most IADLs. However, recently she has been at subacute rehab for some time now and currently requires assist with all ADLs. Subjective I have been doing better since the last time I was here . Objective Patient Orientation Person,Place,Birthday Upper Extremity Gross ROM WFL Bed Mobility bed mobility-scooting,bed mobility - supine/sit Assist Level Minimal x 1 (25% assist) Transfer Training Sit/Stand Transfer Assist Level Minimal x 1 (25% assist) Chair Transfer Ability Minimal x 1 (25% assist) Chair Transfer Technique Stand Step Pivot Chair Transfer Assistive Devices Rolling Walker Rehab OT IP prob,goals,plan Problems Date of Evaluation: 12/18/22 OT IP Problems Bed Mobility,Transfers,Balance ,Self care,Safety Rehab Potential Rehab Potential Good Equipment Needs Assistive Devices Rolling / Wheeled Walker Plan OT intervention Plan Bed Mobility,Transfers,Balance ,Self care,Safety,Therapeutic Exercise OT Plan Frequency BID Duration LOS Discharge Goals Bed Mobility Ability Standby Assistance Sit to Stand Chair Transfer Ability Contact Guard/Hand Hold Chair Transfer Ability Contact Guard/Hand Hold Chair Transfer Technique Sit to/from Ambulatory Chair Transfer Assistive Devices Rolling Walker Feeding Ability Assist with Tray Set Up Lower Body Dressing Ability Assistance X1 Upper Body Dressing Ability Standby Assistance Bathing Ability Assistance x1 Performing Toilet Hygiene Ability Standby Assistance Cherise
--- NOTE | 2022-12-18 11:17 | EXP.ACUTE.PN ---
Subjective *Date: 12/18/22 *Time: 11:17 Interval history: Stable oxygen requirement today of 2 L, her baseline. No nausea or vomiting or chest pain. Denies any shortness of breath. Making adequate urine. Tolerating p.o. intake. Tolerating gentle hydration. Medical Exam Vital signs and Labs for Last 24 Hours: Vital Signs Temp Pulse Pulse Resp BP BP Pulse Ox 12/18/22 07:38 97.4 F L 73 17 90/58 L 99 12/18/22 06:41 12/18/22 04:00 97.7 F 68 17 102/57 L 99 12/18/22 05:00 12/18/22 02:47 12/18/22 00:59 12/17/22 23:00 12/17/22 21:00 12/17/22 20:00 94 L 12/17/22 20:00 98.8 F 73 17 102/56 L 94 L 12/17/22 17:00 12/17/22 15:52 98.7 F 65 18 111/57 L 97 12/17/22 15:39 98.7 F 68 20 112/78 12/17/22 15:00 60 104/69 L 98 12/17/22 14:30 67 125/55 L 96 12/17/22 14:22 66 101/67 L 95 12/17/22 13:30 64 139/70 99 12/17/22 13:00 64 138/73 100 12/17/22 12:31 60 137/69 98 12/17/22 12:01 64 126/62 97 12/17/22 11:56 64 133/68 96 12/17/22 12:04 98.7 F 69 16 133/68 93 L O2 Del Method O2 Flow Rate 12/18/22 07:38 Nasal Cannula 2 12/18/22 06:41 Nasal Cannula 2 12/18/22 04:00 Nasal Cannula 12/18/22 05:00 Nasal Cannula 2 12/18/22 02:47 Nasal Cannula 2 12/18/22 00:59 Nasal Cannula 2 12/17/22 23:00 Nasal Cannula 2 12/17/22 21:00 Nasal Cannula 2 12/17/22 20:00 Nasal Cannula 2 12/17/22 20:00 Nasal Cannula 12/17/22 17:00 Nasal Cannula 2 12/17/22 15:52 Nasal Cannula 2 12/17/22 15:39 Room Air 12/17/22 15:00 12/17/22 14:30 12/17/22 14:22 12/17/22 13:30 12/17/22 13:00 12/17/22 12:31 12/17/22 12:01 12/17/22 11:56 12/17/22 12:04 Nasal Cannula 2 Intake and Output 12/17/22 12/18/22 12/18/22 23:59 07:59 15:59 Intake Total 240 / 721 740 / 860 120 / 860 Output Total 0 / 0 0 / 0 Balance 240 / 721 740 / 860 120 / 860 Intake: Intake, Oral Amount 240 / 480 240 / 360 120 / 360 Intake, Total IV Amount 500 / 500 Lactated Ringers 1000ML 1,000 500 / 500 ml @ 50 mls/hr IV .Q20H [facility] Rx# :[id number] Output: Output, Urine Amount 0 / 0 0 / 0 Other: Number of Unmeasured Voids 1 1 1 Weight 84.906 kg Patient Weight 12/18/22 23:59 Weight 84.906 kg Laboratory Results - last 24 hr 12/17/22 12:40: WBC 9.5, RBC 5.09, Hgb 14.9, Hct 46.1, MCV 90.6, MCH 29.2, MCHC 32.2, RDW 14.9, Plt Count 441 H, MPV 8.4, Neut % (Auto) 67.4, Lymph % (Auto) 14.3, [place] % (Auto) 13.8 H, Eos % (Auto) 3.5, Baso % (Auto) 1.0, Neut # (Auto) 6.4, Lymph # (Auto) 1.4, [place] # (Auto) 1.3 H, Eos # (Auto) 0.3, Baso # (Auto) 0.1, PT 13.5 H, INR 1.27 H, APTT 36.9 H, Sodium 129 L, Potassium 5.8 H, Chloride 90 L, Carbon Dioxide 30, Anion Gap 14.8, BUN 79 H, Creatinine 2.50 H, Estimated Creat Clear 29, Estimated GFR 19 L*, Est GFR ( Amer) 23 L, Glucose 96, Calcium 9.2, Total Bilirubin 1.1, AST 45 H, ALT 21, Alkaline Phosphatase 281 H, NT-Pro-B Natriuret Pep 3460 H, Total Protein 9.0 H, Albumin 4.2, Globulin 4.8 H, Albumin/Globulin Ratio 0.9 L 12/17/22 14:20: Urine Color Yellow, Urine Appearance Clear, Urine pH 6.0, Ur Specific [place] 1.010, Urine Protein Negative, Urine Glucose (UA) Negative, Urine Ketones Negative, Urine Blood 3+, Urine Nitrate Negative, Urine Bilirubin Negative, Urine Urobilinogen 0.2, Ur Leukocyte Esterase 1+ A, Urine RBC 10-20, Urine WBC 5-10, Ur Squamous Epith Cells 3-5, Urine Bacteria 1+ 12/17/22 20:28: POC Glucose 96 12/18/22 05:08: POC Glucose 101 12/18/22 05:25: WBC 10.5, RBC 4.99, Hgb 14.4, Hct 44.9, MCV 90.0, MCH 29.0, MCHC 32.2, RDW 15.1, Plt Count 470 H, MPV 8.6, Neut % (Auto) 68.6, Lymph % (Auto) 16.4, [place] % (Auto) 10.5 H, Eos % (Auto) 3.4, Baso % (Auto) 1.1, Neut # (Auto) 7.2, Lymph # (Auto) 1.7, [place] # (Auto) 1.1 H, Eos # (Auto) 0.4, Baso # (Auto) 0.1, Sodium 128 L, Potassium 5.8 H, Chloride 92 L, Carbon Dioxi
[2022-12-18 11:31] LABS: POC Glucose,Bedside 112 (70-110)
--- NOTE | 2022-12-18 14:47 | CARE MANAGER ---
Addendum entered by Kacey Ho 12/20/22 10:15: I have updated Gladis mckoy/ [facility] that patient will return today. Addendum entered by Kacey Ho 12/19/22 11:03: I have updated Gladis mckoy/ [facility] that patient is not ready for discharge today. Original Note: Spoke with patient regarding plans after discharge. She plans to return to [facility] for continued therapy. She does not wish to go any where different. Connie Craig from [facility] states this will be fine. No bed hold needed if patient discharges back tomorrow. ANGELIQUE Santo
[2022-12-18 16:00] VITALS: BP 118/62; PULSE 60; RESP 18; TEMP 36.6; O2SAT 94
[2022-12-18 17:15] LABS: POC Glucose,Bedside 95 (70-110)
[2022-12-18 18:35] LABS: Chloride 89 mmol/L (98-107); Sodium 126 mmol/L (136-145)
[2022-12-18 18:38] LABS: Blood Urea Nitrogen 70 mg/dl (7-17); Creatinine Clearance Estimated 31 mL/min (50-200); Estimated Glomerular Filt Rate 21 ml/min (>60); GFR (African American) 25 ML/MIN (>60)
[2022-12-18 18:39] LABS: Calcium 8.8 mg/dl (8.4-10.2); Carbon Dioxide 31 mmol/L (22.0-30.0); Glucose 173 mg/dl (74-100)
[2022-12-18 18:41] LABS: Anion Gap 12.3 mEq/L (5-15)
[2022-12-18 18:45] LABS: Potassium 6.3 mmoL/L (3.5-5.1)
--- NOTE | 2022-12-18 19:01 | PC.NURSE ---
Patient continuing to receive IV fluids and patient pain better controlled per patient. Vital signs stable.
--- NOTE | 2022-12-18 19:04 | ECG_ITS ---
APPROVED REPORT Exam: Resting ECG HR:61 bpm ECG Measurements Heart Rate 61 AXES QRSd 104 QRS 128 QT 429 T 65 QTc 432 Conclusion ATRIAL FIBRILLATION POSSIBLE ANTERIOR MYOCARDIAL INFARCTION , PROBABLY OLD [30 ms Q WAVE IN V3/V4, OR R < 0.2 mV IN V4] ABNORMAL ECG UNCONFIRMED REPORT Electronically signed by : Dino Walters MD 12/21/2022 21:42:53
[2022-12-18 20:00] VITALS: BP 94/47; PULSE 64; RESP 18; TEMP 36.8; O2SAT 95
[2022-12-18 20:45] VITALS: PULSE 60
[2022-12-19] VITALS (9 sets, daily range): BP systolic 89–119; BP diastolic 55–62; PULSE 60–75; RESP 17–19; TEMP 36.6–36.8; O2SAT 92–100; BMI 32.0
--- NOTE | 2022-12-19 03:43 | PC.NURSE ---
pt. is A&Ox4, ambulates to and from bathroom with walker and assistance, c/o back pain throughout the shift and was medicated PRN per mar with favorable results, call carmen is in reach
[2022-12-19 04:29] LABS: POC Glucose,Bedside 136 (70-110)
[2022-12-19 06:24] LABS: Chloride 90 mmol/L (98-107); Potassium 5.7 mmoL/L (3.5-5.1); Sodium 128 mmol/L (136-145)
[2022-12-19 06:26] LABS: Alanine Aminotransferase 20 U/L (12-78); Aspartate Amino Transferase 44 U/L (14-36); Blood Urea Nitrogen 76 mg/dl (7-17); Creatinine Clearance Estimated 35 mL/min (50-200); Estimated Glomerular Filt Rate 23 ml/min (>60); GFR (African American) 28 ML/MIN (>60)
[2022-12-19 06:27] LABS: Albumin Level 3.8 g/dl (3.5-5.0); Albumin/Globulin Ratio 0.9 (1.1-1.8); Alkaline Phosphatase 226 U/L (38-126); Anion Gap 14.7 mEq/L (5-15); Bilirubin,Total 1.1 mg/dl (0.2-1.3); Calcium 8.8 mg/dl (8.4-10.2); Carbon Dioxide 29 mmol/L (22.0-30.0); Globulin 4.2 g/dL (1.3-3.2); Glucose 122 mg/dl (74-100); Magnesium 2.3 mg/dl (1.6-2.3)
[2022-12-19 06:31] LABS: Basophils # 0.1 K/mm3 (0-0.2); Eosinophils # 0.4 K/mm3 (0.0-0.4); Eosinophils % 4.1 % (0.1-12.0); Hematocrit 44.5 % (37.0-47.0); Hemoglobin 14.2 g/dL (12.2-16.2); Lymphocytes # 1.7 K/mm3 (0.7-4.5); Lymphocytes % 16.3 % (10-50); Mean Corpuscular Hemoglobin 29.7 pg (27.0-31.2); Mean Corpuscular Volume 92.8 fl (81-99); Mean Platelet Volume 8.7 fl (7.4-10.4); Monocytes # 1.3 K/mm3 (0.1-1.0); Neutrophils # 7.1 K/mm3 (1.8-7.8); Neutrophils % 66.6 % (37.0-80.0); Platelet Count 353 K/mm3 (142-424); Red Blood Count 4.79 M/mm3 (4.20-5.40); Red Cell Distribution Width 15.1 % (11.5-17.5); White Blood Count 10.7 K/mm3 (4.8-10.8)
[2022-12-19 06:44] LABS: POC Glucose,Bedside 115 (70-110)
--- NOTE | 2022-12-19 08:44 | XR_ITS ---
FINAL REPORT CLINICAL HISTORY: abd pain COMPARISON: 12/17/2022 FINDINGS: A PA view of the chest was obtained. The mediastinum is unremarkable. The lungs are clear. There is no free air beneath the diaphragm. Upright and supine views of the abdomen reveal a nonspecific, nonobstructive bowel gas pattern. There is a presumed 31 mm right renal stone. Left upper quadrant density is identified. It is uncertain if this is contrast in the stomach or a partially calcified mass. There are postoperative changes in the pelvis. A large amount of retained stool is seen throughout the colon. IMPRESSION: Left upper quadrant density as above. If indicated, CT could further evaluate the abnormality. Reviewed, Interpreted and Dictated by Monico Gotti III, MD Transcribed by Isabel Colón Authenticated and [facility]
[2022-12-19 11:26] LABS: POC Glucose,Bedside 101 (70-110)
--- NOTE | 2022-12-19 13:33 | PC.NURSE ---
No acute changes noted this shift, remains on 2LNC, has been up to chair for most of the day, complains of back pain, treated with prn pain meds per emar with good results.
[2022-12-19 16:33] LABS: POC Glucose,Bedside 82 (70-110)
--- NOTE | 2022-12-19 18:25 | EXP.PN ---
Subjective *Date: 12/19/22 *Time: 18:25 Interval history: Patient was seen and evaluated at the bedside. feels nauseated, denies chest pain, shortness of breath, abdominal pain. Patient does not have any complaints at this time. feels better overall Exam Data for Last 24 hours Vital signs and Labs for Last 24 Hours: Temp Pulse Resp BP Pulse Ox O2 Del Method O2 Flow Rate 97.9 F 60 19 105/62 L 93 L Nasal Cannula 2 12/19/22 15:43 12/19/22 16:00 12/19/22 15:43 12/19/22 15:43 12/19/22 15:43 12/19/22 17:25 12/19/22 17:25 Laboratory Results - last 24 hr 12/18/22 18:10: Sodium 126 L, Potassium 6.3 H*, Chloride 89 L, Carbon Dioxide 31 H, Anion Gap 12.3, BUN 70 H, Creatinine 2.30 H, Estimated Creat Clear 31, Estimated GFR 21 L, Est GFR ( Amer) 25 L, Glucose 173 H D, Calcium 8.8 12/18/22 19:59: POC Glucose 136 H 12/19/22 05:35: WBC 10.7, RBC 4.79, Hgb 14.2, Hct 44.5, MCV 92.8, MCH 29.7, MCHC 32.0, RDW 15.1, Plt Count 353, MPV 8.7, Neut % (Auto) 66.6, Lymph % (Auto) 16.3, [place] % (Auto) 12.0 H, Eos % (Auto) 4.1, Baso % (Auto) 1.0, Neut # (Auto) 7.1, Lymph # (Auto) 1.7, [place] # (Auto) 1.3 H, Eos # (Auto) 0.4, Baso # (Auto) 0.1, Sodium 128 L, Potassium 5.7 H, Chloride 90 L, Carbon Dioxide 29, Anion Gap 14.7, BUN 76 H, Creatinine 2.10 H, Estimated Creat Clear 35, Estimated GFR 23 L, Est GFR ( Amer) 28 L, Glucose 122 H D, Calcium 8.8, Magnesium 2.3, Total Bilirubin 1.1, AST 44 H, ALT 20, Alkaline Phosphatase 226 H, Total Protein 8.0, Albumin 3.8, Globulin 4.2 H, Albumin/Globulin Ratio 0.9 L 12/19/22 06:37: POC Glucose 115 H 12/19/22 11:07: POC Glucose 101 12/19/22 16:24: POC Glucose 82 I & O for Last 24 hours: Intake & Output 12/16/22 12/17/22 12/18/22 12/19/22 23:59 23:59 23:59 23:59 Intake Total 240 / 721 1340 / 1340 720 / 720 Output Total 0 / 0 0 / 0 0 / 0 Balance 240 / 721 1340 / 1340 720 / 720 Weight 84.907 kg 84.906 kg 87.18 kg Constitutional Constitutional: no acute distress *Routine HEENT Exam Head: Present normocephalic Eye: Present EOMI and PERRL ENT: Present mucous membranes moist *Routine Neck Exam Neck: Present supple; Absent lymphadenopathy *Routine Respiratory Exam Respiratory: Present CTA bilaterally *Routine Cardiovascular Exam Cardiovascular: Present RRR *Routine Abdominal Exam Abdominal: Present soft and normoactive bowel sounds; Absent tenderness *Routine Extremities Exam Extremities: Absent cyanosis, clubbing or edema *Routine Skin Exam Skin: Present warm; Absent rash *Routine Neurological Exam Neurological: Present alert and oriented X3 Assessment and Plan *Assessment and plan (1) WALE (acute kidney injury): Status: Acute Category: Medical Code(s): N17.9 - Acute kidney failure, unspecified (2) Laceration of occipital region of scalp: Status: Acute Qualifiers: Encounter type: initial encounter Qualified Code(s): S01.01XA - Laceration without foreign body of scalp, initial encounter Category: Medical Code(s): S01.01XA - Laceration without foreign body of scalp, initial encounter (3) Renal insufficiency: Status: Acute Category: Medical Code(s): N28.9 - Disorder of kidney and ureter, unspecified (4) Hyperkalemia: Status: Acute Category: Medical Code(s): E87.5 - Hyperkalemia (5) Diabetes mellitus type 2 in obese: Status: Chronic Category: Medical Code(s): E11.69 - Type 2 diabetes mellitus with other specified complication; E66.9 - Obesity, unspecified (6) Atrial fibrillation: Status: Acute Qualifiers: Atrial fibrillation type: longstanding persistent Qualified Code(s): I48.11 - Longstanding persistent atrial fibrillation Category: Medical Code(s): I48.91 - Unspecified atrial fibrillation Plan Patient is a 67-year-old female who presented to hospital due to acute kidney injury and hyperkalemia. Assessment Acute kidney inju
--- NOTE | 2022-12-19 18:36 | EXP.PN ---
Subjective *Date: 12/19/22 *Time: 18:36 Exam Data for Last 24 hours Vital signs and Labs for Last 24 Hours: Temp Pulse Resp BP Pulse Ox O2 Del Method O2 Flow Rate 98.3 F 70 17 119/61 98 Nasal Cannula 2 12/19/22 18:30 12/19/22 18:30 12/19/22 18:30 12/19/22 18:30 12/19/22 18:30 12/19/22 18:30 12/19/22 18:30 Laboratory Results - last 24 hr 12/18/22 18:10: Sodium 126 L, Potassium 6.3 H*, Chloride 89 L, Carbon Dioxide 31 H, Anion Gap 12.3, BUN 70 H, Creatinine 2.30 H, Estimated Creat Clear 31, Estimated GFR 21 L, Est GFR ( Amer) 25 L, Glucose 173 H D, Calcium 8.8 12/18/22 19:59: POC Glucose 136 H 12/19/22 05:35: WBC 10.7, RBC 4.79, Hgb 14.2, Hct 44.5, MCV 92.8, MCH 29.7, MCHC 32.0, RDW 15.1, Plt Count 353, MPV 8.7, Neut % (Auto) 66.6, Lymph % (Auto) 16.3, [place] % (Auto) 12.0 H, Eos % (Auto) 4.1, Baso % (Auto) 1.0, Neut # (Auto) 7.1, Lymph # (Auto) 1.7, [place] # (Auto) 1.3 H, Eos # (Auto) 0.4, Baso # (Auto) 0.1, Sodium 128 L, Potassium 5.7 H, Chloride 90 L, Carbon Dioxide 29, Anion Gap 14.7, BUN 76 H, Creatinine 2.10 H, Estimated Creat Clear 35, Estimated GFR 23 L, Est GFR ( Amer) 28 L, Glucose 122 H D, Calcium 8.8, Magnesium 2.3, Total Bilirubin 1.1, AST 44 H, ALT 20, Alkaline Phosphatase 226 H, Total Protein 8.0, Albumin 3.8, Globulin 4.2 H, Albumin/Globulin Ratio 0.9 L 12/19/22 06:37: POC Glucose 115 H 12/19/22 11:07: POC Glucose 101 12/19/22 16:24: POC Glucose 82 I & O for Last 24 hours: Intake & Output 12/16/22 12/17/22 12/18/22 12/19/22 23:59 23:59 23:59 23:59 Intake Total 240 / 721 1340 / 1340 720 / 720 Output Total 0 / 0 0 / 0 0 / 0 Balance 240 / 721 1340 / 1340 720 / 720 Weight 84.907 kg 84.906 kg 87.18 kg Assessment and Plan *Assessment and plan Plan Patient was seen and evaluated at the bedside. denies chest pain, shortness of breath, nausea, vomiting, abdominal pain. Patient does not have any complaints at this time. feels better overall
[2022-12-19 23:27] LABS: POC Glucose,Bedside 118 (70-110)
[2022-12-20] VITALS: BP 102/51; PULSE 59; PULSE 67; RESP 18; TEMP 37.2; O2SAT 97
[2022-12-20 04:00] VITALS: BP 94/54; PULSE 56; PULSE 66; RESP 18; TEMP 36.7; O2SAT 94; BMI 32.7
--- NOTE | 2022-12-20 05:30 | PC.NURSE ---
pt nauseated, phenergan given with relief, pt had several bms
[2022-12-20 06:12] LABS: Alanine Aminotransferase 21 U/L (12-78); Albumin Level 3.4 g/dl (3.5-5.0); Albumin/Globulin Ratio 0.9 (1.1-1.8); Alkaline Phosphatase 206 U/L (38-126); Anion Gap 11.5 mEq/L (5-15); Aspartate Amino Transferase 43 U/L (14-36); Bilirubin,Total 1.1 mg/dl (0.2-1.3); Blood Urea Nitrogen 62 mg/dl (7-17); Calcium 9.2 mg/dl (8.4-10.2); Carbon Dioxide 29 mmol/L (22.0-30.0); Chloride 94 mmol/L (98-107); Estimated Glomerular Filt Rate 30 ml/min (>60); GFR (African American) 36 ML/MIN (>60); Glucose 132 mg/dl (74-100); Potassium 4.5 mmoL/L (3.5-5.1); Sodium 130 mmol/L (136-145); Total Protein,Serum 7.4 g/dl (6.3-8.2)
[2022-12-20 06:20] LABS: Creatinine Clearance Estimated 44 mL/min (50-200)
[2022-12-20 06:33] LABS: POC Glucose,Bedside 107 (70-110)
[2022-12-20 07:33] VITALS: BP 108/61; PULSE 66; RESP 20; TEMP 36.9; O2SAT 94
[2022-12-20 08:00] VITALS: PULSE 70
[2022-12-20 10:55] VITALS: BP 92/50; PULSE 57; RESP 18; TEMP 36.8; O2SAT 95
[2022-12-20 11:10] LABS: POC Glucose,Bedside 154 (70-110)
[2022-12-20 12:00] VITALS: PULSE 60
--- NOTE | 2022-12-20 12:45 | EXP.DC.SUM ---
General Admission date:: 12/17/22 Discharge date: 12/20/22 HPI HPI HPI: Ms. lorenzo is a 67-year-old female who resides at [facility] for rehab after recent admission 2 weeks ago for acute on chronic heart failure and volume overload. She has been taking her medications as prescribed including diuretics. She presented to the ER today after a fall while ambulating from the bathroom to get back in her chair. She fell striking the back of her head. Denies any loss of consciousness. She is on Eliquis for her A-fib. Imaging of her head did not show any intracranial pathology. Laceration repaired in the ER. Labs however show WALE and elevated potassium. Denies nausea, vomiting, chest pain, confusion. Has not been drinking as much fluid per report from the ER but on report to me she states she has been eating and drinking normally. ER contacted medicine for admission for further management of her WALE. On evaluation, she appears comfortable. Is stable on 2 L oxygen which she was discharged on 2 weeks ago. No other acute complaints. Hospital Course Hospital Course Hospital Course: Patient is a 67-year-old female who presented to hospital due to acute kidney injury and hyperkalemia. Assessment Acute kidney injury - improving Hyperkalemia - improved Fall Laceration Chronic heart failure with reduced ejection fraction History of atrial fibrillation Diabetes mellitus GERD f/u with PCP as OP Exam Data for Last 24 hours Vital signs and Labs for Last 24 Hours: Temp Pulse Resp BP Pulse Ox O2 Del Method O2 Flow Rate 98.3 F 57 L 18 92/50 L 95 Room Air 2 12/20/22 10:55 12/20/22 10:55 12/20/22 10:55 12/20/22 10:55 12/20/22 10:55 12/20/22 12:44 12/20/22 03:00 Laboratory Results - last 24 hr 12/19/22 16:24: POC Glucose 82 12/19/22 22:44: POC Glucose 118 H 12/20/22 05:20: Sodium 130 L, Potassium 4.5 D, Chloride 94 L, Carbon Dioxide 29, Anion Gap 11.5, BUN 62 H, Creatinine 1.70 H, Estimated Creat Clear 44, Estimated GFR 30 L, Est GFR ( Amer) 36 L D, Glucose 132 H, Calcium 9.2, Total Bilirubin 1.1, AST 43 H, ALT 21, Alkaline Phosphatase 206 H, Total Protein 7.4, Albumin 3.4 L D, Globulin 4.0 H, Albumin/Globulin Ratio 0.9 L 12/20/22 06:27: POC Glucose 107 12/20/22 10:44: POC Glucose 154 H I & O for Last 24 hours: Intake & Output 12/17/22 12/18/22 12/19/22 12/20/22 23:59 23:59 23:59 23:59 Intake Total 240 / 721 1340 / 1340 720 / 720 2140 / 2140 Output Total 0 / 0 0 / 0 0 / 0 0 / 0 Balance 240 / 721 1340 / 1340 720 / 720 2140 / 2140 Weight 84.907 kg 84.906 kg 87.18 kg 89.131 kg Microbiology Reports for the Last 24 Hours: Microbiology 12/17/22 14:20 Urine,Clean Catch Urine Culture - Final Constitutional Constitutional: no acute distress *Routine HEENT Exam Head: Present normocephalic Eye: Present EOMI and PERRL ENT: Present mucous membranes moist *Routine Neck Exam Neck: Present supple; Absent lymphadenopathy *Routine Respiratory Exam Respiratory: Present CTA bilaterally *Routine Cardiovascular Exam Cardiovascular: Present RRR *Routine Abdominal Exam Abdominal: Present soft and normoactive bowel sounds; Absent tenderness *Routine Extremities Exam Extremities: Absent cyanosis, clubbing or edema *Routine Skin Exam Skin: Present warm; Absent rash *Routine Neurological Exam Neurological: Present alert and oriented X3 Results Data Completed and Pending Labs on day of discharge: Labs from last 24 hours 12/20/22 12/20/22 12/20/22 10:44 06:27 05:20 Sodium 130 L Potassium 4.5 D Chloride 94 L Carbon Dioxide 29 Anion Gap 11.5 BUN 62 H Creatinine 1.70 H Estimated Creat Clear 44 Estimated GFR 30 L Est GFR ( Amer) 36 L D Glucose 132 H POC Glucose 154 H 107 Calcium 9.2 Total Bilirubin 1.1 AST 43 H ALT 21 Alkaline Phosphatase 206 H Total Protein 7.4 Albumin 3.4 L D Globulin 4.0 H Albumin/Globulin Ratio
[2022-12-20 16:24] LABS: POC Glucose,Bedside 125 (70-110)
== END 2022-12-20 18:02 ==
LOC: ER 12:52 → 2ND 13:56
PROVIDERS: Admitting Provider Internal Medicine Adolescent Medicine; Emergency Provider Emergency Medicine; PCP Family Medicine; Visit Provider Internal Medicine Adolescent Medicine
DX: N17.9 Acute kidney failure, unspecified (principal); E87.5 Hyperkalemia; S01.01XA Laceration without foreign body of scalp, initial encounter; I50.33 Acute on chronic diastolic (congestive) heart failure; I27.20 Pulmonary hypertension, unspecified; E11.69 Type 2 diabetes mellitus with other specified complication; I42.9 Cardiomyopathy, unspecified; E66.09 Other obesity due to excess calories; Z68.31 Body mass index [BMI] 31.0-31.9, adult; I48.11 Longstanding persistent atrial fibrillation; E78.2 Mixed hyperlipidemia; Z79.01 Long term (current) use of anticoagulants; I25.10 Atherosclerotic heart disease of native coronary artery without angina pectoris; I11.0 Hypertensive heart disease with heart failure; Z79.899 Other long term (current) drug therapy; Z99.81 Dependence on supplemental oxygen; W01.0XXA Fall on same level from slipping, tripping and stumbling without subsequent striking against object, initial encounter; Y92.121 Bathroom in nursing home as the place of occurrence of the external cause
CPT/HCPCS: 12001; 36415; 70450; 71045; 72125; 74021; 80048; 80053; 81001; 82962; 83735; 83880; 85025; 85610; 85730; 87086; 93005; 97116; 97163; 97166; 97530; 99285; G0378; J2405

== ENCOUNTER → 2023-01-03 23:17 | Outpatient (CLI) | payer MEDICARE, BC, SELFPAY ==
[2023-01-04 00:06] LABS: Chloride 92 mmol/L (98-107); Sodium 129 mmol/L (136-145)
[2023-01-04 00:07] LABS: Potassium 4.7 mmoL/L (3.5-5.1)
[2023-01-04 00:09] LABS: Alanine Aminotransferase 34 U/L (12-78); Alkaline Phosphatase 306 U/L (38-126); Anion Gap 13.7 mEq/L (5-15); Aspartate Amino Transferase 50 U/L (14-36); Bilirubin,Total 0.6 mg/dl (0.2-1.3); Blood Urea Nitrogen 46 mg/dl (7-17); Carbon Dioxide 28 mmol/L (22.0-30.0); Estimated Glomerular Filt Rate 41 ml/min (>60); GFR (African American) 49 ML/MIN (>60)
[2023-01-04 00:10] LABS: Albumin Level 3.5 g/dl (3.5-5.0); Calcium 8.7 mg/dl (8.4-10.2); Globulin 3.6 g/dL (1.3-3.2); Glucose 152 mg/dl (74-100); Magnesium 1.9 mg/dl (1.6-2.3); Total Protein,Serum 7.1 g/dl (6.3-8.2)
== END ==
PROVIDERS: PCP Family Medicine; Visit Provider Family Medicine
DX: I42.8 Other cardiomyopathies (principal); I27.20 Pulmonary hypertension, unspecified; N28.9 Disorder of kidney and ureter, unspecified; E78.5 Hyperlipidemia, unspecified; E11.9 Type 2 diabetes mellitus without complications; Z79.84 Long term (current) use of oral hypoglycemic drugs
CPT/HCPCS: 80053; 83735

== ENCOUNTER 2023-04-11 12:32 | Outpatient (CLI) | payer MEDICARE, BC, SELFPAY ==
[2023-04-11 17:24] LABS: Hemoglobin A1C 6.6 % (4.0-6.0)
== END 2023-04-11 23:59 ==
PROVIDERS: PCP Internal Medicine; Visit Provider Internal Medicine
DX: E11.40 Type 2 diabetes mellitus with diabetic neuropathy, unspecified (principal); Z79.84 Long term (current) use of oral hypoglycemic drugs
CPT/HCPCS: 83036

== ENCOUNTER 2024-01-04 13:30 | Outpatient (CLI) | payer MEDICARE, BC, SELFPAY ==
[2024-01-04 11:20] LABS: Basophils # 0.2 K/mm3 (0-0.2); Basophils % 1.3 % (0.1-2.0); Eosinophils # 0.4 K/mm3 (0.0-0.4); Eosinophils % 3.3 % (0.1-12.0); Hematocrit 49.2 % (37.0-47.0); Hemoglobin 15.6 g/dL (12.2-16.2); Lymphocytes # 1.5 K/mm3 (0.7-4.5); Lymphocytes % 12.5 % (10-50); Mean Corpuscular HGB Conc 31.7 g/dL (31.8-35.4); Mean Corpuscular Hemoglobin 29.1 pg (27.0-31.2); Mean Corpuscular Volume 91.7 fl (81-99); Mean Platelet Volume 9.7 fl (7.4-10.4); Monocytes # 0.9 K/mm3 (0.1-1.0); Monocytes % 7.4 % (1.7-9.3); Neutrophils % 75.5 % (37.0-80.0); Platelet Count 461 K/mm3 (142-424); Red Blood Count 5.37 M/mm3 (4.20-5.40); Red Cell Distribution Width 13.7 % (11.5-17.5); White Blood Count 11.9 K/mm3 (4.8-10.8)
[2024-01-04 11:49] LABS: Alanine Aminotransferase 16 U/L (12-78); Albumin Level 3.8 g/dl (3.5-5.0); Alkaline Phosphatase 195 U/L (38-126); Anion Gap 14.6 mEq/L (5-15); Aspartate Amino Transferase 26 U/L (14-36); Bilirubin,Total 0.9 mg/dl (0.2-1.3); Blood Urea Nitrogen 33 mg/dl (7-17); Calcium 9.3 mg/dl (8.4-10.2); Carbon Dioxide 31 mmol/L (22.0-30.0); Chloride 96 mmol/L (98-107); Chol/HDL Ratio 2.7 (1-3.5); Cholesterol 161 mg/dl (140-200); Estimated Glomerular Filt Rate 83 ml/min (>60); GFR (African American) 100 ML/MIN (>60); Globulin 3.7 g/dL (1.3-3.2); Glucose 166 mg/dl (74-100); HDL Cholesterol 59 mg/dl (40-60); Potassium 5.6 mmoL/L (3.5-5.1); Sodium 136 mmol/L (136-145); Total Protein,Serum 7.5 g/dl (6.3-8.2); Triglycerides 71 mg/dl (30-150); VLDL Cholesterol 14 mg/dL (0-40)
[2024-01-04 12:00] LABS: Direct LDL Cholesterol 91.58 mg/dL (100-129)
[2024-01-04 12:05] LABS: Free T4 (Free Thyroxine) 1.62 ng/dl (0.78-2.19)
[2024-01-04 14:11] LABS: Hemoglobin A1C 8.7 % (4.0-6.0)
== END 2024-01-04 23:59 | disposition home or self-care (01) ==
LOC: LAB.DROPOF 13:31
PROVIDERS: PCP Internal Medicine; Visit Provider Internal Medicine
DX: R53.83 Other fatigue (principal); D75.839 Thrombocytosis, unspecified; Z13.1 Encounter for screening for diabetes mellitus; E78.5 Hyperlipidemia, unspecified; Z13.29 Encounter for screening for other suspected endocrine disorder; Z13.220 Encounter for screening for lipoid disorders; Z00.00 Encounter for general adult medical examination without abnormal findings
CPT/HCPCS: 80053; 80061; 83036; 84439; 84443; 85025

== ENCOUNTER 2024-02-10 14:11 | Emergency (ER) | payer MEDICARE, BC, SELFPAY ==
[2024-02-10] VITALS (9 sets, daily range): BP systolic 111–161; BP diastolic 60–76; PULSE 79–93; RESP 18–19; TEMP 36.6–36.9; O2SAT 87–99; BMI 38.2
[2024-02-10] MEDS: OXYMETAZOLINE NASAL SPRAY 0.05% 15ML NS (14:27)
[2024-02-10] MEDS: TRANEXAMIC ACID 1,000 MG/10 ML VIAL 1000 MG IVP (15:01)
--- NOTE | 2024-02-10 15:44 | ED_ITS ---
Discharge Plan Disposition Patient Disposition: Home, Self-Care Prescriptions Prescriptions: New cephalexin 500 mg capsule 1,000 mg PO BID 5 Days Qty: 20 0RF No Action (DME) Blood Glucose Test Strip See Rx Instructions .Route Qty: 50 10RF Rx Instructions: As directed (DME) lancets Misc See Rx Instructions .Route Qty: 100 5RF Rx Instructions: As directed (DME) blood-glucose meter Kit See Rx Instructions .Route Qty: 1 0RF Rx Instructions: As directed quetiapine 25 mg tablet 25 mg PO DAILY Qty: 90 1RF atorvastatin 40 mg tablet 40 mg PO HS Qty: 90 1RF dapagliflozin propanediol 10 mg tablet 10 mg PO DAILYDM Qty: 90 1RF duloxetine 60 mg capsule,delayed release(DR/EC) 60 mg PO DAILY Qty: 90 1RF famotidine 20 mg tablet 20 mg PO DAILY Qty: 90 1RF metoprolol succinate 25 mg tablet extended release 24 hr 25 mg PO DAILY Qty: 90 1RF pantoprazole 40 mg tablet,delayed release (DR/EC) 40 mg PO HS Qty: 90 1RF spironolactone 25 mg tablet 25 mg PO DAILY Qty: 90 1RF bumetanide 1 mg tablet See Rx Instructions .ROUTE .COMPLEX Qty: 90 0RF Dose Instruction: TAKE 1 TABLET ORALLY DAILY NEEDED FOR EDEMA, FLUID OVERLOAD Rx Instructions: TAKE 1 TABLET ORALLY DAILY NEEDED FOR EDEMA, FLUID OVERLOAD Eliquis 5 mg tablet 5 mg PO BID Qty: 180 1RF aspirin 81 mg tablet,delayed release (DR/EC) 81 mg PO DAILY Qty: 90 1RF bumetanide 1 mg tablet 1 mg PO DAILY Qty: 90 1RF ferrous sulfate 325 mg (65 mg iron) tablet,delayed release (DR/EC) 325 mg PO DAILY Qty: 90 1RF magnesium oxide 400 mg magnesium tablet 400 mg PO HS Qty: 90 1RF nortriptyline 25 mg capsule 25 mg PO HS Qty: 90 1RF ramelteon 8 mg tablet 8 mg PO HS PRN (Reason: sleep) Qty: 90 1RF Entresto 24-26 mg tablet 1 tab PO BID 30 Days Qty: 180 1RF sennosides-docusate sodium [Senna-S] 8.6-50 mg tablet 1 tab PO HS Qty: 90 1RF Vraylar 1.5 mg capsule 1.5 mg PO DAILY Qty: 30 2RF Mounjaro 5 mg/0.5 mL pen injector 5 mg SQ WEEKLY Qty: 2.5 2RF melatonin 5 mg Tablet 5 mg PO HS Referrals Follow up/Referrals: Luiz Sage DO [Primary Care Provider] - See instructions Allen Mohan MD [Physician] - See instructions Activity Restrictions/Add. Instructions Additional Instructions/Restrictions: Take Bumex daily for the next 5 days, then every other day thereafter. Follow- up with family doctor for repeat BNP, BMP, and CBC. Call your family doctor to establish care for this visit to the emergency department and schedule follow-up within 48 hours to ensure improvement. If you have any worsening of your condition or any other concerning signs or symptoms, return to the emergency department or your primary care doctor for further evaluation. Information for ENT listed here. Call them for follow-up. On 02/12, soak nasal tampons with saline and allow to soak for a couple of minutes. Pull very slowly and straight out of the nose, not down or up. Clinical Impressions Clinical Impression: Acute anterior epistaxis Instructions Patient Instructions: DI for Nosebleed Print Language Print Language: Burmese Discharge ED Provider: Benjamin Hunt General Adult HPI <Rissa Haji MD - Last Filed: 02/10/24 16:08> General Chief complaint: Epistaxis Stated complaint: nose bleed Time Seen by Provider: 02/10/24 14:29 Mode of Arrival: Wheelchair Source of Information: Patient Limitations: No Limitations Description of Symptoms (Recalled from ER Triage Doc. by RN): pt presents to ED with c/o nose bleed. pt reports that her nose began bleeding this am approx 0600. pt reports that bleeding awoke her from her sleep. pt does take eliquid 5mg. family at bedside report pt has been through 4 lite tampons today History of Present Illness HPI narrative: Patient is a 68-year-old female presenting with a nosebleed. Patient states her nose began bleeding this morning while it was dark outside. Patient is on Eliquis. Daughter at bedside states that she packed her mom's nose with bilateral tampons and these blood through causing her to place 2 more. Her and her sister went to work and expected this to stop, however when it did not stop, they brought her to the emergency department. Patient denies lightheadedness, dizziness. Patient notes seeing a large clot earlier today. Patient did not place any Afrin in her nose. She states she has had a history of nosebleed. Patient denies headache, blurred vision, chest pain, shortness of breath. Related Data Home Medications ?Medication ?Instructions ?Recorded ?Confirmed melatonin 5 mg tablet 5 mg PO HS sleep 09/28/22 01/08/24 Previous Rx's ?Medication ?Instructions ?Recorded blood sugar diagnostic (Blood #50 ea 04/11/23 Glucose Test strips) blood-glucose meter #1 ea 04/11/23 lancets #100 ea 04/11/23 quetiapine 25 mg tablet 25 mg PO DAILY #90 tabs 07/14/23 atorvastatin 40 mg tablet 40 mg PO HS #90 tabs 10/18/23 dapagliflozin propanediol 10 mg 10 mg PO DAILYDM Diabetes #90 tabs 10/20/23 tablet duloxetine 60 mg capsule,delayed 60 mg PO DAILY #90 caps 10/20/23 release famotidine 20 mg tablet 20 mg PO DAILY Acid Reflux #90 tabs 10/20/23 metoprolol succinate 25 mg 25 mg PO DAILY #90 tabs 10/20/23 tablet,extended release 24 hr pantoprazole 40 mg tablet,delayed 40 mg PO HS #90 tabs 10/20/23 release spironolactone 25 mg tablet 25 mg PO DAILY #90 tabs 10/20/23 bumetanide 1 mg tablet See Rx Instructions .Route 01/09/24 .COMPLEX #90 tabs apixaban 5 mg tablet (Eliquis) 5 mg PO BID Blood Thinner/Afib 01/10/24 #180 tabs aspirin 81 mg tablet,delayed 81 mg PO DAILY #90 tabs 01/10/24 release bumetanide 1 mg tablet 1 mg PO DAILY #90 tabs 01/10/24 ferrous sulfate 325 mg (65 mg 325 mg PO DAILY Supplement #90 tabs 01/10/24 iron) tablet,delayed release magnesium oxide 400 mg PO HS Supplement #90 tabs 01/10/24 nortriptyline 25 mg capsule 25 mg PO HS #90 caps 01/10/24 ramelteon 8 mg tablet 8 mg PO HS PRN sleep #90 tabs 01/10/24 sacubitril 24 mg-valsartan 26 mg 1 tab PO BID 30 days #180 tabs 01/10/24 tablet (Entresto) sennosides 8.6 mg-docusate sodium 1 tab PO HS Constipation #90 tabs 01/10/24 50 mg tablet (Senna-S) cariprazine 1.5 mg capsule 1.5 mg PO DAILY #30 caps 01/15/24 (Vraylar) tirzepatide 5 mg/0.5 mL 5 mg (0.5 mL) SQ WEEKLY #2.5 mL 02/08/24 subcutaneous pen injector (Mounjaro) cephalexin 500 mg capsule 1,000 mg (2 x 500 mg) PO BID 5 02/10/24 days #20 caps Allergies Allergy/AdvReac Type Severity Reaction Status Date / Time levofloxacin Allergy Verified 01/08/24 08:22 meperidine Allergy Verified 01/08/24 08:22 [facility] <Rissa Haji MD - Last Filed: 02/10/24 16:08> [facility] Disclaimer: The information contained in this section may have been updated after the patient was seen, as this information can be updated by other users. Medical History Atrial fibrillation BMI 39.0-39.9,adult CAD in [place] artery Chronic anemia Chronic anticoagulation Constipation Coronary artery disease Depression Diabetes GERD (gastroesophageal reflux disease) HFrEF (heart failure with reduced ejection fraction) Hyperkalemia Hypertension Hypotension Oxygen dependent Pulmonary hypertension Renal insufficiency UTI (urinary tract infection) Surgical History Status post left heart catheterization Family History Other Family history of cancer Social History Smoking Status: Never smoker alcohol intake: never current occupational status: unemployed Travel in the last 8 weeks: None Have you lived/traveled outside [place] in past 30 days?: No Contact w/someone who lives/traveled outside US past 30 days?: No Exposure to someone with infectious disease in past 14 days?: No Do you have a fever (greater than 100.4 F or 38 C)?: No Have you tested positive for COVID-19: No Exposed to someone with COVID-19 in past 14 days?: No Do you have a sore throat?: No Do you have a cough?: No Do you have any weakness?: No Do you have any diarrhea?: No Are you experiencing any unusual bleeding?: No Do you have any muscle aches/pain?: No Do you have any abdominal pain?: No Are you experiencing loss of taste or smell?: No Other Medical History Have you received the Flu Vaccine for this season: No Have you received the Pneumonia Vaccine: No <Rissa Haji MD - Last Filed: 02/10/24 16:08> ROS Obtained: Yes All systems reviewed & no additional complaints except as documented Physical Exam <Rissa Haji MD - Last Filed: 02/10/24 16:08> General General appearance: alert and in no apparent distress ENT ENT exam: Present normal exam, normal oropharynx, mucous membranes moist and normal external ear exam Expanded ENT Exam Nasal speculum exam: Bilateral: epistaxis Comment: No active bleeding after mouth washed out with water Neck Neck exam: Present normal inspection Respiratory Respiratory exam: Absent respiratory distress or wheezes Cardiovascular Cardiovascular exam: Present regular rate and normal rhythm; Absent JVD Neurological Exam Neurological exam: Present alert and oriented X3 Skin Skin exam: Present warm, dry, intact and normal color Medical Decision Making <Rissa Haji MD - Last Filed: 02/10/24 16:08> Medical Records Screening: Per USPSTF and CDC recommendations, given the prevalence of disease in our region, it is our hospital?s policy to screen for HIV and viral Hepatitis for all patients aged 18 and over and those with ongoing risk factors. Abdifatah Inquiry Pt receiving controlled substance: No Vital Signs: 02/10/24 14:12 02/10/24 14:18 02/10/24 14:30 Temperature 98.4 F Temperature Source Oral Pulse Rate 88 82 Pulse Rate [Left Radial] 93 H Respiratory Rate 19 Blood Pressure 120/60 125/71 Blood Pressure [Right Arm] 120/60 Blood Pressure Mean [Right Arm] 80 02 Sat by Pulse Oximetry 96 95 99 Oxygen Delivery Method Room Air Room Air Room Air 02/10/24 15:00 02/10/24 15:30 02/10/24 16:31 Temperature Temperature Source Pulse Rate 87 83 79 Pulse Rate [Left Radial] Respiratory Rate Blood Pressure 111/76 145/64 H Blood Pressure [Right Arm] Blood Pressure Mean [Right Arm] 02 Sat by Pulse Oximetry 92 L 98 94 L Oxygen Delivery Method Room Air Room Air 02/10/24 18:05 02/10/24 18:31 Temperature Temperature Source Pulse Rate 88 88 Pulse Rate [Left Radial] Respiratory Rate Blood Pressure 161/72 H 123/65 Blood Pressure [Right Arm] Blood Pressure Mean [Right Arm] 02 Sat by Pulse Oximetry 87 L 90 L Oxygen Delivery Method Room Air Lab Data Lab Results 02/10/24 16:05: WBC 17.1 H, RBC 4.34, Hgb 12.1 L, Hct 39.5, MCV 91.0, MCH 27.9, MCHC 30.6 L, RDW 17.1, Plt Count 467 H, MPV 10.2, Neut % (Auto) 74.8, Lymph % (Auto) 11.4, [place] % (Auto) 11.1 H, Eos % (Auto) 1.2, Baso % (Auto) 0.9, Neut # (Auto) 12.8 H, Lymph # (Auto) 2.0, [place] # (Auto) 1.9 H, Eos # (Auto) 0.2, Baso # (Auto) 0.2, Total Counted 100, Neutrophils % (Manual) 80 H, Lymphocytes % (Manual) 15, Monocytes % (Manual) 5, Platelet Estimate Slight increase, RBC Morphology Normal, Sodium 138, Potassium 4.2, Chloride 107, Carbon Dioxide 28, Anion Gap 7.2, BUN 34 H, Creatinine 0.70, Estimated Creat Clear 86, Estimated GFR 83, Est GFR ( Amer) 100, Glucose 145 H, Calcium 8.7 02/10/24 16:14: NT-Pro-B Natriuret Pep 3010 H, HIV Ag/Ab Combo Qual Negative 02/10/24 16:05 02/10/24 16:05 Orders (Tests/Meds): ED MEDICATIONS Generic Name Dose Route Start Last Admin Trade Name Freq PRN Reason Stop Dose Admin Benzocaine/Butamben/Tetracaine HCl 1 gm 02/10/24 17:36 02/10/24 18:05 Tetracaine/Benzocaine/Butamben 56 Gm Conway TP 03/11/24 17:35 1 gm NEEDED PRN Administration Runny Nose Discontinued Medications Generic Name Dose Route Start Last Admin Trade Name Freq PRN Reason Stop Dose Admin Bacitracin 1 each 02/10/24 17:37 02/10/24 18:05 Bacitracin Oint 0.9gm Udp TP 02/10/24 17:38 1 each ONCE ONE Administration Cephalexin HCl 1,000 mg 02/10/24 17:59 02/10/24 18:17 Cephalexin 250mg/5ml 100ml Susp PO 02/10/24 18:00 Not Given ONCE ONE Cephalexin HCl 1,000 mg 02/10/24 18:07 02/10/24 18:08 Cephalexin 500mg Capsule PO 02/10/24 18:08 1,000 mg ONCE ONE Administration Furosemide 40 mg 02/10/24 17:59 02/10/24 18:05 Furosemide 40mg/4ml Vial IV 02/10/24 18:00 40 mg ONCE ONE Administration Oxymetazoline HCl 1 ml 02/10/24 14:26 02/10/24 14:27 Oxymetazoline Nasal [place] 0.05% 15ml NS 02/10/24 14:27 1 ml ONCE ONE Administration Tranexamic Acid 1,000 mg 02/10/24 14:57 02/10/24 15:01 Tranexamic Acid 1,000 Mg/10 Ml Vial IVP 02/10/24 14:58 1,000 mg ONCE ONE Administration ORDERS Category Date Time Status CXR --portable [XR chest portable] Stat Exams 02/10/24 16:54 Taken BMP [Basic Metabolic Panel] Stat Lab 02/10/24 16:05 Completed CBC w/Auto Diff [Complete Blood Count Auto Diff] Stat Lab 02/10/24 16:05 Completed HIV Combo Stat Lab 02/10/24 16:14 Completed Hep C Ab with Reflex to RNA Stat Lab 02/10/24 16:14 Received Heparin Anti-Xa Stat Lab 02/10/24 16:14 Received NT Pro Brain Natriuretic Pep. Stat Lab 02/10/24 16:14 Completed Medical Decision Narrative: In summary, patient is a 68-year-old female ending with nosebleed on Eliquis. Bleeding started this morning at approximately 0600 and family tried multiple tampon packing products. Differential diagnosis includes but is not limited to, posterior epistaxis, anterior epistaxis, excessive bleeding secondary to Eliquis use, among others. Patient's packing removed and a clamp placed. Approximately 20 minutes after clamp placed, I evaluated the patient and removed the clamp. Patient continues to breathe through the nose causing recurrent bleeding. Evaluation of her posterior oropharynx, no active bleeding was noted. Patient not lightheaded and has stable vital signs. I applied Afrin spray to bilateral nares after having patient blow her nose and replaced the clamp while we ordered TXA. Gauze soaked with TXA and placed in bilateral nares. CBC ordered to evaluate hemoglobin. Ultimately, patient signed out to oncoming physician pending evaluation of TXA and CBC. <Benjamin Hunt MD - Last Filed: 02/10/24 18:50> Vital Signs: 02/10/24 14:12 02/10/24 14:18 02/10/24 14:30 Temperature 98.4 F Temperature Source Oral Pulse Rate 88 82 Pulse Rate [Left Radial] 93 H Respiratory Rate 19 Blood Pressure 120/60 125/71 Blood Pressure [Right Arm] 120/60 Blood Pressure Mean [Right Arm] 80 02 Sat by Pulse Oximetry 96 95 99 Oxygen Delivery Method Room Air Room Air Room Air 02/10/24 15:00 02/10/24 15:30 02/10/24 16:31 Temperature Temperature Source Pulse Rate 87 83 79 Pulse Rate [Left Radial] Respiratory Rate Blood Pressure 111/76 145/64 H Blood Pressure [Right Arm] Blood Pressure Mean [Right Arm] 02 Sat by Pulse Oximetry 92 L 98 94 L Oxygen Delivery Method Room Air Room Air 02/10/24 18:05 02/10/24 18:31 Temperature Temperature Source Pulse Rate 88 88 Pulse Rate [Left Radial] Respiratory Rate Blood Pressure 161/72 H 123/65 Blood Pressure [Right Arm] Blood Pressure Mean [Right Arm] 02 Sat by Pulse Oximetry 87 L 90 L Oxygen Delivery Method Room Air Lab Data Lab Results 02/10/24 16:05: WBC 17.1 H, RBC 4.34, Hgb 12.1 L, Hct 39.5, MCV 91.0, MCH 27.9, MCHC 30.6 L, RDW 17.1, Plt Count 467 H, MPV 10.2, Neut % (Auto) 74.8, Lymph % (Auto) 11.4, [place] % (Auto) 11.1 H, Eos % (Auto) 1.2, Baso % (Auto) 0.9, Neut # (Auto) 12.8 H, Lymph # (Auto) 2.0, [place] # (Auto) 1.9 H, Eos # (Auto) 0.2, Baso # (Auto) 0.2, Total Counted 100, Neutrophils % (Manual) 80 H, Lymphocytes % (Manual) 15, Monocytes % (Manual) 5, Platelet Estimate Slight increase, RBC Morphology Normal, Sodium 138, Potassium 4.2, Chloride 107, Carbon Dioxide 28, Anion Gap 7.2, BUN 34 H, Creatinine 0.70, Estimated Creat Clear 86, Estimated GFR 83, Est GFR ( Amer) 100, Glucose 145 H, Calcium 8.7 02/10/24 16:14: NT-Pro-B Natriuret Pep 3010 H, HIV Ag/Ab Combo Qual Negative Orders (Tests/Meds): ED MEDICATIONS Generic Name Dose Route Start Last Admin Trade Name Freq PRN Reason Stop Dose Admin Benzocaine/Butamben/Tetracaine HCl 1 gm 02/10/24 17:36 02/10/24 18:05 Tetracaine/Benzocaine/Butamben 56 Gm [place] TP 03/11/24 17:35 1 gm NEEDED PRN Administration Runny Nose Discontinued Medications Generic Name Dose Route Start Last Admin Trade Name Freq PRN Reason Stop Dose Admin Bacitracin 1 each 02/10/24 17:37 02/10/24 18:05 Bacitracin Oint 0.9gm Udp TP 02/10/24 17:38 1 each ONCE ONE Administration Cephalexin HCl 1,000 mg 02/10/24 17:59 02/10/24 18:17 Cephalexin 250mg/5ml 100ml Susp PO 02/10/24 18:00 Not Given ONCE ONE Cephalexin HCl 1,000 mg 02/10/24 18:07 02/10/24 18:08 Cephalexin 500mg Capsule PO 02/10/24 18:08 1,000 mg ONCE ONE Administration Furosemide 40 mg 02/10/24 17:59 02/10/24 18:05 Furosemide 40mg/4ml Vial IV 02/10/24 18:00 40 mg ONCE ONE Administration Oxymetazoline HCl 1 ml 02/10/24 14:26 02/10/24 14:27 Oxymetazoline Nasal [place] 0.05% 15ml NS 02/10/24 14:27 1 ml ONCE ONE Administration Tranexamic Acid 1,000 mg 02/10/24 14:57 02/10/24 15:01 Tranexamic Acid 1,000 Mg/10 Ml Vial IVP 02/10/24 14:58 1,000 mg ONCE ONE Administration ORDERS Category Date Time Status CXR --portable [XR chest portable] Stat Exams 02/10/24 16:54 Taken BMP [Basic Metabolic Panel] Stat Lab 02/10/24 16:05 Completed CBC w/Auto Diff [Complete Blood Count Auto Diff] Stat Lab 02/10/24 16:05 Completed HIV Combo Stat Lab 02/10/24 16:14 Completed Hep C Ab with Reflex to RNA Stat Lab 02/10/24 16:14 Received Heparin Anti-Xa Stat Lab 02/10/24 16:14 Received NT Pro Brain Natriuretic Pep. Stat Lab 02/10/24 16:14 Completed Medical Decision Narrative: In summary, patient is a 68-year-old female ending with nosebleed on Eliquis. Bleeding started this morning at approximately 0600 and family tried multiple tampon packing products. Differential diagnosis includes but is not limited to, posterior epistaxis, anterior epistaxis, excessive bleeding secondary to Eliquis use, among others. Patient's packing removed and a clamp placed. Approximately 20 minutes after clamp placed, I evaluated the patient and removed the clamp. Patient continues to breathe through the nose causing recurrent bleeding. Evaluation of her posterior oropharynx, no active bleeding was noted. Patient not lightheaded and has stable vital signs. I applied Afrin spray to bilateral nares after having patient blow her nose and replaced the clamp while we ordered TXA. Gauze soaked with TXA and placed in bilateral nares. CBC ordered to evaluate hemoglobin. Ultimately, patient signed out to oncoming physician pending evaluation of TXA and CBC. Marilee: I assumed primary responsibility for this patient after signout from previous physician. Reevaluation around 3 PM, patient still bleeding. Daughter concern for shortness of breath, weight gain, heart failure. Labs and imaging ordered. On my independent evaluation, patient still bleeding. Around 4 PM after clamp trial, bilateral nasal packings were placed. They were covered in bacitracin. Cetacaine numbing spray was initially used. Patient blew clots out, nasal tampons were placed and saturated with Afrin/oxymetazoline. Patient was given first gram of Keflex, 40 mg IV Lasix. On independent interpretation of workup, patient has leukocytosis of 17,000. Hemoglobin 12.1, about 3 point down from just a month prior. Chemistry nonactionable. BNP elevated 3000, this appears to be right around patient's normal. Patient was given 40 mg IV Lasix. Chest x-ray independently interpreted, patient does have mild pulmonary edema, but no evidence of acute airspace disease or effusion. No oxygen requirement. On reevaluation around 6:30 PM, patient no longer bleeding. Patient given Keflex for home-going, outpatient follow-up recommended and both daughter and patient voiced their understanding. Because patient at baseline without signs or symptoms of clinical decompensation, deemed appropriate for discharge. Results were relayed to patient who voiced understanding and were agreeable to outpatient management and follow up. I discussed my clinical impression with patient and answered all questions. At this time, the evidence for any other entities in the differential is insufficient to warrant any further testing or ED observation. This was explained as well. Advisory was given that persistent or worsening symptoms require further evaluation. I confirmed the understanding of this discussion. Procedures <Benjamin Hunt MD - Last Filed: 02/10/24 18:50> Epistaxis Control Time Out Performed: No Nostril: bilateral Nose Prepped With: oxymetazoline Direct Inspection: yes Clots Removed by: blowing nose Device Inserted: nasal tampon Patient Tolerated Procedure: well Critical Care <Rissa Haji MD - Last Filed: 02/10/24 16:08> Critical Care Time Critical Care Time: No
[2024-02-10 16:19] LABS: Hematocrit 39.5 % (37.0-47.0); Hemoglobin 12.1 g/dL (12.2-16.2); Mean Corpuscular HGB Conc 30.6 g/dL (31.8-35.4); Mean Corpuscular Hemoglobin 27.9 pg (27.0-31.2); Red Blood Count 4.34 M/mm3 (4.20-5.40); Red Cell Distribution Width 17.1 % (11.5-17.5); White Blood Count 17.1 K/mm3 (4.8-10.8)
[2024-02-10 16:20] LABS: Basophils # 0.2 K/mm3 (0-0.2); Basophils % 0.9 % (0.1-2.0); Eosinophils # 0.2 K/mm3 (0.0-0.4); Eosinophils % 1.2 % (0.1-12.0); Lymphocytes % 11.4 % (10-50); Mean Platelet Volume 10.2 fl (7.4-10.4); Monocytes # 1.9 K/mm3 (0.1-1.0); Monocytes % 11.1 % (1.7-9.3); Neutrophils # 12.8 K/mm3 (1.8-7.8); Neutrophils % 74.8 % (37.0-80.0); Platelet Count 467 K/mm3 (142-424)
[2024-02-10 16:21] LABS: MANUAL DIFFERENTIAL MANUAL DIFFERENTIAL (MANUAL DIFF)
[2024-02-10 16:26] LABS: Chloride 107 mmol/L (98-107); Potassium 4.2 mmoL/L (3.5-5.1); Sodium 138 mmol/L (136-145)
[2024-02-10 16:29] LABS: Anion Gap 7.2 mEq/L (5-15); Blood Urea Nitrogen 34 mg/dl (7-17); Calcium 8.7 mg/dl (8.4-10.2); Carbon Dioxide 28 mmol/L (22.0-30.0); Creatinine Clearance Estimated 86 mL/min (50-200); Estimated Glomerular Filt Rate 83 ml/min (>60); GFR (African American) 100 ML/MIN (>60); Glucose 145 mg/dl (74-100)
[2024-02-10 16:35] LABS: Lymphocytes % 15 % (10-50); Monocytes % 5 % (2-9); Neutrophils % 80 % (42-76); Total Cells Counted 100
[2024-02-10 16:36] LABS: Platelet Estimate Slight Increase; RBC Morphology Normal
--- NOTE | 2024-02-10 16:54 | XR_ITS ---
PROCEDURE INFORMATION: Exam: XR Chest Exam date and time: 02/10/2024 4:52 PM Age: 68 years old Clinical indication: Other: Chf history SOA TECHNIQUE: Imaging protocol: Radiologic exam of the chest. Views: 1 view. COMPARISON: CR XR CHEST PORTABLE 12/17/2022 12:35 PM FINDINGS: Lungs: No evidence of airspace infiltrate. No pulmonary edema. Pleural spaces: No visible pleural effusion. No pneumothorax. Heart/Mediastinum: Cardiomediastinal silhouette is unchanged from prior exam, accounting for differences in technique. Bones/joints: No evidence of acute osseous abnormality. IMPRESSION: No acute findings.
--- NOTE | 2024-02-10 17:13 | PC.NURSE ---
Last BP 145/64. She refuses to keep BP cuff on
--- NOTE | 2024-02-10 17:35 | PC.NURSE ---
Rounds just completed.
[2024-02-10 17:36] LABS: NT Pro Brain Natriuretic Pep. 3010 pg/mL (0-125)
[2024-02-10] MEDS: BACITRACIN OINT 0.9GM UDP 1 EACH TP (18:05)
[2024-02-10] MEDS: TETRACAINE/BENZOCAINE/BUTAMBEN 56 GM SPRAY TP (18:05)
[2024-02-10] MEDS: FUROSEMIDE 40MG/4ML VIAL 40 MG IV (18:05)
[2024-02-10 18:07] LABS: HIV Combo NEGATIVE (Negative)
[2024-02-10] MEDS: cephALEXin 500MG CAPSULE 1000 MG PO (18:08)
[2024-02-12 05:08] LABS: HCV Ab Non Reactive (Non Reactive)
[2024-02-12 15:09] LABS: Heparin Anti-Xa 0.51 IU/mL (.)
== END 2024-02-10 19:10 | disposition home or self-care (01) ==
PROVIDERS: Student in an Organized Health Care Education/Training Program; Emergency Provider Emergency Medicine; PCP Internal Medicine
DX: R04.0 Epistaxis (principal)
CPT/HCPCS: 71045; 80048; 83880; 85007; 85025; 85027; 85520; 86803; 87389; 96374; 99283; J1940

== ENCOUNTER 2024-03-09 16:44 | Inpatient (IN) | payer MEDICARE, BC, SELFPAY ==
[2024-03-09] VITALS (7 sets, daily range): BP systolic 119–174; BP diastolic 63–92; PULSE 82–89; RESP 17–22; TEMP 36.6–38.2; O2SAT 91–98; BMI 40.7
--- NOTE | 2024-03-09 16:52 | ECG_ITS ---
APPROVED REPORT Exam: Resting ECG HR:89 bpm ECG Measurements Heart Rate 89 AXES QRSd 86 QRS 38 QT 381 T 13 QTc 428 Conclusion ATRIAL FIBRILLATION LOW QRS VOLTAGE IN PRECORDIAL LEADS [QRS DEFLECTION < 1.0 mV IN CHEST LEADS] POSSIBLE RIGHT VENTRICULAR CONDUCTION DELAY [RSR (QR) IN V1/V2] POSSIBLE ANTERIOR MYOCARDIAL INFARCTION , PROBABLY OLD [30 ms Q WAVE IN V3/V4, OR R < 0.2 mV IN V4] ABNORMAL RHYTHM ECG UNCONFIRMED REPORT Electronically signed by : Brandon Dowling, 03/24/2024 23:28:33
--- NOTE | 2024-03-09 17:02 | XR_ITS ---
PROCEDURE INFORMATION: Exam: XR Chest Exam date and time: 03/09/2024 5:25 PM Age: 68 years old Clinical indication: Dyspnea TECHNIQUE: Imaging protocol: Radiologic exam of the chest. Views: 1 view. COMPARISON: CR XR CHEST PORTABLE 02/10/2024 4:52 PM FINDINGS: Lungs: Left basilar opacities partially silhouette the diaphragm are favored to represent combination of atelectasis/pleural effusion/consolidation. Pleural spaces: See Lungs finding. Heart/Mediastinum: Unremarkable. No cardiomegaly. Bones/joints: Unremarkable. IMPRESSION: Left basilar opacities partially silhouette the diaphragm are favored to represent combination of atelectasis/pleural effusion/consolidation.
--- NOTE | 2024-03-09 17:07 | HMH.EDGENADL ---
Discharge Plan Disposition Patient Disposition: Admitted Chief Complaint: Shortness of Breath/Dyspnea Prescriptions Prescriptions: No Action (DME) Blood Glucose Test Strip See Rx Instructions .Route Qty: 50 10RF Rx Instructions: As directed (DME) lancets Misc See Rx Instructions .Route Qty: 100 5RF Rx Instructions: As directed (DME) blood-glucose meter Kit See Rx Instructions .Route Qty: 1 0RF Rx Instructions: As directed quetiapine 25 mg tablet 25 mg PO DAILY Qty: 90 1RF atorvastatin 40 mg tablet 40 mg PO HS Qty: 90 1RF dapagliflozin propanediol 10 mg tablet 10 mg PO DAILYDM Qty: 90 1RF duloxetine 60 mg capsule,delayed release(DR/EC) 60 mg PO DAILY Qty: 90 1RF famotidine 20 mg tablet 20 mg PO DAILY Qty: 90 1RF metoprolol succinate 25 mg tablet extended release 24 hr 25 mg PO DAILY Qty: 90 1RF pantoprazole 40 mg tablet,delayed release (DR/EC) 40 mg PO HS Qty: 90 1RF spironolactone 25 mg tablet 25 mg PO DAILY Qty: 90 1RF bumetanide 1 mg tablet See Rx Instructions .ROUTE .COMPLEX Qty: 90 0RF Dose Instruction: TAKE 1 TABLET ORALLY DAILY NEEDED FOR EDEMA, FLUID OVERLOAD Rx Instructions: TAKE 1 TABLET ORALLY DAILY NEEDED FOR EDEMA, FLUID OVERLOAD Eliquis 5 mg tablet 5 mg PO BID Qty: 180 1RF aspirin 81 mg tablet,delayed release (DR/EC) 81 mg PO DAILY Qty: 90 1RF bumetanide 1 mg tablet 1 mg PO DAILY Qty: 90 1RF ferrous sulfate 325 mg (65 mg iron) tablet,delayed release (DR/EC) 325 mg PO DAILY Qty: 90 1RF magnesium oxide 400 mg magnesium tablet 400 mg PO HS Qty: 90 1RF nortriptyline 25 mg capsule 25 mg PO HS Qty: 90 1RF ramelteon 8 mg tablet 8 mg PO HS PRN (Reason: sleep) Qty: 90 1RF Entresto 24-26 mg tablet 1 tab PO BID 30 Days Qty: 180 1RF sennosides-docusate sodium [Senna-S] 8.6-50 mg tablet 1 tab PO HS Qty: 90 1RF Vraylar 1.5 mg capsule 1.5 mg PO DAILY Qty: 30 2RF Mounjaro 5 mg/0.5 mL pen injector 5 mg SQ WEEKLY Qty: 2.5 2RF cephalexin 500 mg capsule 1,000 mg PO BID 5 Days Qty: 20 0RF melatonin 5 mg Tablet 5 mg PO HS Referrals Follow up/Referrals: Luiz Sage DO [Primary Care Provider] - See instructions Clinical Impressions Clinical Impression: Acute exacerbation of CHF (congestive heart failure), Fever, Asplenia, Candidal intertrigo, Abdominal wall cellulitis, Sepsis Print Language Print Language: Nauruan Discharge ED Provider: Keaton Dowling General Adult HPI General Chief complaint: Shortness of Breath/Dyspnea Stated complaint: SOA,having trouble ambulating Time Seen by Provider: 03/09/24 16:50 Mode of Arrival: Wheelchair Source of Information: Patient and Relative Limitations: No Limitations Description of Symptoms (Recalled from ER Triage Doc. by RN): sob,swelling,fever,confused,tired History of Present Illness HPI narrative: Patient is a 68-year-old who is accompanied by her daughter presents today with multiple complaints. First her daughter is very concerned that she is volume overloaded with a history of CHF as her dry weight is about 217 pounds and today she weighs about 245 pounds. Her daughter states that she typically takes 1 mg of Bumex twice daily but she has been given additional milligram as needed without any significant improvement in her symptoms. The patient had increasing shortness of breath and some mild encephalopathy. Additionally she had a fever earlier today and has had a mild cough for the last several days. 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 Related Data Home Medications ?Medication ?Instructions ?Recorded ?Confirmed melatonin 5 mg tablet 5 mg PO HS sleep 09/28/22 01/08/24 Previous Rx's ?Medication ?Instructions ?Recorded blood sugar diagnostic (Blood #50 ea 04/11/23 Glucose Test strips) blood-glucose meter #1 ea 04/11/23 lancets #100 ea 04/11/23 quetiapine 25 mg tablet 25 mg PO DAILY #90 tabs 07/14/23 atorvastatin 40 mg tablet 40 mg PO HS #90 tabs 10/18/23 dapagliflozin propanediol 10 mg 10 mg PO DAILYDM Diabetes #90 tabs 10/20/23 tablet duloxetine 60 mg capsule,delayed 60 mg PO DAILY #90 caps 10/20/23 release famotidine 20 mg tablet 20 mg PO DAILY Acid Reflux #90 tabs 10/20/23 metoprolol succinate 25 mg 25 mg PO DAILY #90 tabs 10/20/23 tablet,extended release 24 hr pantoprazole 40 mg tablet,delayed 40 mg PO HS #90 tabs 10/20/23 release spironolactone 25 mg tablet 25 mg PO DAILY #90 tabs 10/20/23 bumetanide 1 mg tablet See Rx Instructions .Route 01/09/24 .COMPLEX #90 tabs apixaban 5 mg tablet (Eliquis) 5 mg PO BID Blood Thinner/Afib 01/10/24 #180 tabs aspirin 81 mg tablet,delayed 81 mg PO DAILY #90 tabs 01/10/24 release bumetanide 1 mg tablet 1 mg PO DAILY #90 tabs 01/10/24 ferrous sulfate 325 mg (65 mg 325 mg PO DAILY Supplement #90 tabs 01/10/24 iron) tablet,delayed release magnesium oxide 400 mg PO HS Supplement #90 tabs 01/10/24 nortriptyline 25 mg capsule 25 mg PO HS #90 caps 01/10/24 ramelteon 8 mg tablet 8 mg PO HS PRN sleep #90 tabs 01/10/24 sacubitril 24 mg-valsartan 26 mg 1 tab PO BID 30 days #180 tabs 01/10/24 tablet (Entresto) sennosides 8.6 mg-docusate sodium 1 tab PO HS Constipation #90 tabs 01/10/24 50 mg tablet (Senna-S) cariprazine 1.5 mg capsule 1.5 mg PO DAILY #30 caps 01/15/24 (Vraylar) tirzepatide 5 mg/0.5 mL 5 mg (0.5 mL) SQ WEEKLY #2.5 mL 02/08/24 subcutaneous pen injector (Tere) cephalexin 500 mg capsule 1,000 mg (2 x 500 mg) PO BID 5 02/10/24 days #20 caps Allergies Allergy/AdvReac Type Severity Reaction Status Date / Time levofloxacin Allergy Verified 01/08/24 08:22 meperidine Allergy Verified 01/08/24 08:22 [facility] Disclaimer: The information contained in this section may have been updated after the patient was seen, as this information can be updated by other users. Medical History Atrial fibrillation BMI 39.0-39.9,adult CAD in table [place] artery Chronic anemia Chronic anticoagulation Constipation Coronary artery disease Depression Diabetes GERD (gastroesophageal reflux disease) HFrEF (heart failure with reduced ejection fraction) Hyperkalemia Hypertension Hypotension Oxygen dependent Pulmonary hypertension Renal insufficiency UTI (urinary tract infection) Surgical History Status post left heart catheterization Family History Other Family history of cancer Social History Smoking Status: Never smoker alcohol intake: never current occupational status: unemployed Travel in the last 8 weeks: None Have you lived/traveled outside [place] in past 30 days?: No Contact w/someone who lives/traveled outside US past 30 days?: No Exposure to someone with infectious disease in past 14 days?: No Do you have a fever (greater than 100.4 F or 38 C)?: No Have you tested positive for COVID-19: No Exposed to someone with COVID-19 in past 14 days?: No Do you have a sore throat?: No Do you have a cough?: No Do you have any weakness?: Yes Do you have any diarrhea?: No Are you experiencing any unusual bleeding?: No Do you have any muscle aches/pain?: No Do you have any abdominal pain?: No Are you experiencing loss of taste or smell?: No Other Medical History Have you received the Flu Vaccine for this season: No Have you received the Pneumonia Vaccine: No ROS Obtained: Yes All systems reviewed & no additional complaints except as documented Physical Exam General General appearance: alert and in no apparent distress Chest Chest inspection: Present other (Severe bilateral intertrigo with erythema in the folds of tissue between the breast and the abdomen extending in the inferior portion of the left breast tissue itself) Respiratory Respiratory exam: Present normal lung sounds bilaterally; Absent respiratory distress Cardiovascular Cardiovascular exam: Present regular rate and normal rhythm Abdominal Exam Abdominal exam: Present soft; Absent distention or tenderness Neurological Exam Neurological exam: Present alert and oriented X3; Absent CN II-XII intact Medical Decision Making Medical Records Screening: Per USPSTF and CDC recommendations, given the prevalence of disease in our region, it is our hospital?s policy to screen for HIV and viral Hepatitis for all patients aged 18 and over and those with ongoing risk factors. Abdifatah Inquiry Pt receiving controlled substance: No Vital Signs: 03/09/24 16:45 03/09/24 17:15 03/09/24 17:31 Temperature 100.7 F H Temperature Source Oral Pulse Rate 85 85 Pulse Rate [Right] 82 Respiratory Rate 22 18 Blood Pressure 151/78 H Blood Pressure [Right Arm] 174/92 H Blood Pressure Mean 100 Blood Pressure Mean [Right Arm] 119 02 Sat by Pulse Oximetry 94 L 94 L 92 L Oxygen Delivery Method Room Air 03/09/24 18:01 Temperature Temperature Source Pulse Rate 85 Pulse Rate [Right] Respiratory Rate Blood Pressure 160/73 H Blood Pressure [Right Arm] Blood Pressure Mean Blood Pressure Mean [Right Arm] 02 Sat by Pulse Oximetry 91 L Oxygen Delivery Method Room Air Lab Data Lab results reviewed: Yes I reviewed the patient's lab results. Lab Results 03/09/24 16:51: WBC 15.7 H, RBC 3.94 L, Hgb 10.6 L, Hct 34.9 L, MCV 88.6, MCH 26.9 L, MCHC 30.4 L, RDW 15.9, Plt Count 453 H, MPV 9.9, Neut % (Auto) 79.6, Lymph % (Auto) 6.0 L, Summers % (Auto) 12.2 H, Eos % (Auto) 0.7, Baso % (Auto) 1.0, Neut # (Auto) 12.5 H, Lymph # (Auto) 0.9, Summers # (Auto) 1.9 H, Eos # (Auto) 0.1, Baso # (Auto) 0.2, Total Counted 100, Neutrophils % (Manual) 90 H, Band Neutrophils % 2.0, Lymphocytes % (Manual) 3 L, Monocytes % (Manual) 5, Platelet Estimate Slight increase, Poikilocytosis 1+, Anisocytosis 2+, Target Cells 1+, D-Dimer 0.88 H, Sodium 136, Potassium 4.3, Chloride 98, Carbon Dioxide 31 H, Anion Gap 11.3, BUN 21 H, Creatinine 0.90, Estimated Creat Clear 92, Estimated GFR 62, Est GFR ( Amer) 75, Glucose 158 H, Calcium 9.3, Total Bilirubin 1.1, AST 27, ALT 19, Alkaline Phosphatase 135 H, Troponin I 0.02, NT-Pro-B Natriuret Pep 65849 H, Total Protein 7.6, Albumin 3.9, Globulin 3.7 H, Albumin/Globulin Ratio 1.1 03/09/24 17:00: SARS-CoV-2 (PCR) Not detected, Influenza A Untype (PCR) Not detected, Influenza Type B (PCR) Not detected 03/09/24 17:03: VBG pH 7.39, VBG pCO2 46.9, VBG pO2 37.0, VBG HCO3 27.6, VBG Total CO2 29.0 H, VBG O2 Saturation 67.8, VBG Base Excess 2.6 H, VBG Lactic Acid 2.1 H 03/09/24 17:15: Urine Color Yellow, Urine Appearance Clear, Urine pH 6.0, Ur Specific [place] 1.015, Urine Protein Trace, Urine Glucose (UA) 3+, Urine Ketones Negative, Urine Blood 1+ A, Urine Nitrate Negative, Urine Bilirubin Negative, Urine Urobilinogen 0.2, Ur Leukocyte Esterase Trace, Urine RBC Occasional, Urine WBC 10-20, Ur Squamous Epith Cells 5-10, Urine Bacteria Trace 03/09/24 16:51 03/09/24 16:51 Orders (Tests/Meds): ED MEDICATIONS Generic Name Dose Route Start Last Admin Trade Name Freq PRN Reason Stop Dose Admin Bumetanide 1 mg 03/09/24 19:04 Bumetanide 1mg/4ml Vial IV 03/09/24 19:05 ONCE ONE Miscellaneous 1 each 03/09/24 19:15 Vancomycin Consult Request NOTAPPLIC 04/08/24 19:14 CONSULT PHARMACY KATHY Discontinued Medications Generic Name Dose Route Start Last Admin Trade Name Freq PRN Reason Stop Dose Admin Iopamidol 80 ml 03/09/24 18:21 03/09/24 18:22 Iopamidol-370 (76%);100ml Bottle IV 03/09/24 18:22 80 ml ONCE ONE Administration Sodium Chloride 50 ml 03/09/24 18:21 03/09/24 18:22 0.9 % Sodium Chloride 50 Ml Vial IV 03/09/24 18:22 50 ml ONCE ONE Administration Sodium Chloride 10 ml 03/09/24 18:21 03/09/24 18:22 Sodium Chloride 0.9% 10ml Syr (Rad Only) IV 03/09/24 18:22 10 ml ONCE ONE Administration ORDERS Category Date Time Status CT abdomen pelvis w con Stat Cat Scan 03/09/24 17:[address] angio chest PE protocol Stat Cat Scan 03/09/24 17:42 Taken CXR --portable [XR chest portable] Stat Exams 03/09/24 17:02 Completed POCUS Point of Care (ER Only) Stat Exams 03/09/24 17:03 Taken BNP [NT Pro Brain Natriuretic Pep.] Stat Lab 03/09/24 16:51 Completed CBC w/Auto Diff [Complete Blood Count Auto Diff] Stat Lab 03/09/24 16:51 Completed CMP [Comprehensive Metabolic Panel] Stat Lab 03/09/24 16:51 Completed D-Dimer Stat Lab 03/09/24 16:51 Completed HIV Combo Stat Lab 03/09/24 16:51 Received Hepatitis C Ab Qual. W/ RFX Stat Lab 03/09/24 16:51 Received Lactate Venous Stat Lab 03/09/24 17:02 Ordered Rapid PCR Covid and Flu A/B Stat Lab 03/09/24 17:00 Completed Trop I [Troponin I] Stat Lab 03/09/24 16:51 Completed Troponin I Q3H Lab 03/09/24 20:15 Ordered Troponin I Q3H Lab 03/09/24 23:15 Ordered UA [Urinalysis and Microscopic] Stat Lab 03/09/24 17:15 Completed Blood Culture Stat Micro 03/09/24 17:17 Received Urine Culture Stat Micro 03/09/24 17:15 Received Venous Blood Gas Stat RT 03/09/24 17:03 Completed ECG Data Tracing #1: I reviewed this ECG and interpreted as documented below: Ventricular rate of 89 atrial fibrillation low voltage in QRS precordial leads no acute ischemic changes noted normal axis Tissue Perfus/Sepsis Re-Eval Sepsis Re-Evaluation Performed: Yes Date Performed: 03/09/24 Time Performed: 19:05 Medical Decision Narrative: Patient with above history and physical she has a GCS of 15 and normal neurologic exam on my assessment but her daughter states she has been mildly encephalopathic at home. Additionally daughter believes that she is up about 30 to 40 pounds from her dry weight and is volume overloaded. However she has a fever today. In the setting of being asplenic this is bacteremia with an encapsulated organism until proven otherwise. Additionally other things in the differential would be pulmonary embolism, pneumonia, urinary tract infection and cellulitis superimposed on her candidal intertrigo. Will get a broad workup. Additionally I will do a bedside ultrasound of her heart and lungs and reassess. Nurses when they were placing a straight cath Milligan catheter noted that she had severe lower abdominal candidal intertrigo which I evaluated she does have extensive intertrigo in her lower abdominal fat areas with extensive erythema and abdominal wall cellulitis extending into the perineum with a very foul smell. There is a small concern that this could be an STI however most likely this is a superimposed cellulitis on top of severe candidal intertrigo which may be the cause of her fever. After further discussion with her daughter she states that the patient refuses generally to take baths and has been a fight regularly to get her to care for herself. Will get CT scans of the chest abdomen pelvis to further differentiate for possible pneumonia versus necrotizing soft tissue infection. Reassessment patient's labs demonstrate a leukocytosis which in the setting of a fever is consistent with sepsis and a confirmed source of infection which is likely the abdominal wall cellulitis. However no aggressive fluid resuscitation was pursued because patient has a known history of heart failure and is actually presenting for being volume overloaded. CT scans were performed I personally interpreted in the chest no definitive dense consolidation or pneumonia or pulmonary embolism noted on my personal interpretation. On the abdomen and pelvis I do not see any evidence of a necrotizing soft tissue infection or subcutaneous gas however there is extensive cellulitis in the abdominal wall fat. Therefore the working diagnosis and the cause of the sepsis is most likely abdominal wall cellulitis clinically superimposed upon severe candidal intertrigo. Patient will need be admitted for IV diuresis as well as for IV antibiotics. Additionally given the fact that her family is having a really difficult time taking care of her she likely needs to be admitted or transferred to a nursing or group home facility/rehab facility and will need to be evaluated for that inpatient. I will speak with hospital medicine admit the patient for further evaluation and management. IV Bumex has been initiated in the ED as well as vancomycin. Procedures Miscellaneous Procedure Procedure Performed: Limited cardiac ultrasound Indication: Dyspnea Identified structures: The heart was visualized in the parasternal long axis, parastenal short axis, apical four chamber and subxyphiod views. The IVC was visualized in the short axis and long axis at its entry into the right atrium. Findings: Patient has a moderately depressed LVEF no pericardial effusion but images are limited secondary to patient's body habitus Impression: Moderately depressed LVEF without pericardial effusion Images were to permanent archive The study was technically adequate CPT: 00539-19 This study was performed by nd, and I personally interpreted all images/videos. Based on my clinical judgement, these images were inadequate and did necessitate further imaging. Limited lung ultrasound A focused ultrasound exam of the pleural spaces was performed to evaluate for pneumothorax, pulmonary edema, pleural effusion and/or consolidation. The ultrasound was performed with the following indications, as noted in the H&P: Dyspnea Identified structures: Right and left thoracic cavities were examined. Findings: Lung sliding present bilaterally no B-lines or pleural effusions or consolidations noted Impression: Unremarkable bilateral lung ultrasound Images were saved to permanent archive The study was technically adequate CPT 75288-29 This study was performed by nd, and I personally interpreted all images/videos. Based on my clinical judgement, these images were adequate and did not necessitate further imaging. Critical Care Critical Care Time Critical Care Time: Yes Attestation: On 03/09/24, the high probability of a clinically significant, sudden or life threatening deterioration of the following system(s) required my full and direct attention, intervention and personal management. The time I documented below is in addition to time spent performing reported procedures but includes the following listed in this critical care notation. Total Time Total Critical Care Time: 35
[2024-03-09 17:09] LABS: Basophils # 0.2 K/mm3 (0-0.2); Eosinophils # 0.1 K/mm3 (0.0-0.4); Eosinophils % 0.7 % (0.1-12.0); Hematocrit 34.9 % (37.0-47.0); Hemoglobin 10.6 g/dL (12.2-16.2); Lymphocytes # 0.9 K/mm3 (0.7-4.5); Mean Corpuscular HGB Conc 30.4 g/dL (31.8-35.4); Mean Corpuscular Hemoglobin 26.9 pg (27.0-31.2); Mean Corpuscular Volume 88.6 fl (81-99); Mean Platelet Volume 9.9 fl (7.4-10.4); Monocytes # 1.9 K/mm3 (0.1-1.0); Monocytes % 12.2 % (1.7-9.3); Neutrophils # 12.5 K/mm3 (1.8-7.8); Neutrophils % 79.6 % (37.0-80.0); Platelet Count 453 K/mm3 (142-424); Red Blood Count 3.94 M/mm3 (4.20-5.40); Red Cell Distribution Width 15.9 % (11.5-17.5); White Blood Count 15.7 K/mm3 (4.8-10.8)
[2024-03-09 17:10] LABS: Lactate Venous 2.1 mmol/L (0.4-2.0); VBG Base Excess 2.6 mmol/L (-2.4-2.3); VBG HCO3 27.6 mmol/L (23-30); VBG Oxygen Saturation 67.8 % (50-70); VBG PCO2 46.9 mmol/L (35-51); VBG PH 7.39 mmol/L (7.31-7.41)
[2024-03-09 17:12] LABS: MANUAL DIFFERENTIAL MANUAL DIFFERENTIAL (MANUAL DIFF)
[2024-03-09 17:18] LABS: Coronavirus 19, PCR Not Detected (NotDetected); Influenza A, PCR Not Detected (NotDetected); Influenza B, PCR Not Detected (NotDetected)
[2024-03-09 17:18] LABS: Microscopic, Urine URINE MICROSCOPIC (MICROSCOPIC)
[2024-03-09 17:20] LABS: Alanine Aminotransferase 19 U/L (12-78); Albumin Level 3.9 g/dl (3.5-5.0); Albumin/Globulin Ratio 1.1 (1.1-1.8); Alkaline Phosphatase 135 U/L (38-126); Anion Gap 11.3 mEq/L (5-15); Aspartate Amino Transferase 27 U/L (14-36); Bilirubin,Total 1.1 mg/dl (0.2-1.3); Blood Urea Nitrogen 21 mg/dl (7-17); Calcium 9.3 mg/dl (8.4-10.2); Carbon Dioxide 31 mmol/L (22.0-30.0); Chloride 98 mmol/L (98-107); Creatinine Clearance Estimated 92 mL/min (50-200); Estimated Glomerular Filt Rate 62 ml/min (>60); GFR (African American) 75 ML/MIN (>60); Globulin 3.7 g/dL (1.3-3.2); Glucose 158 mg/dl (74-100); Potassium 4.3 mmoL/L (3.5-5.1); Sodium 136 mmol/L (136-145); Total Protein,Serum 7.6 g/dl (6.3-8.2)
--- NOTE | 2024-03-09 17:21 | PC.NURSE ---
portable xray at bedside
[2024-03-09 17:24] LABS: Appearance,Urine CLEAR (Clear); Bilirubin,Urine Negative (Negative); Blood, Urine 1+ (Negative); Color,Urine YELLOW (Yellow); Glucose,Urine (UA) 3+ (Negative); Ketones,Urine Negative (Negative); Leukocyte Esterase,Urine TRACE (Negative); Nitrate,Urine Negative (Negative); Protein,Urine TRACE (Negative); Specific Gravity, Urine 1.015 (1.005-1.030); Urobilinogen,Urine 0.2 EU/dl (0.2)
[2024-03-09 17:25] LABS: D-Dimer 0.88 ug/mL (0.0-0.5)
[2024-03-09 17:32] LABS: NT Pro Brain Natriuretic Pep. 10500 pg/mL (0-125); Troponin I 0.02 ng/ml (0.00-0.034)
[2024-03-09 17:36] LABS: Lymphocytes % 3 % (10-50); Monocytes % 5 % (2-9); Neutrophils % 90 % (42-76); Total Cells Counted 100
[2024-03-09 17:39] LABS: Anisocytosis 2+; Platelet Estimate Slight Increase; Poikilocytosis 1+; Target Cells 1+
--- NOTE | 2024-03-09 17:42 | CT_ITS ---
PROCEDURE INFORMATION: Exam: CTA Chest With Contrast Exam date and time: 03/09/2024 6:21 PM Age: 68 years old Clinical indication: Dyspnea; Additional info: Dyspnea, fever TECHNIQUE: Imaging protocol: Computed tomographic angiography of the chest with contrast. Exam focused on the arteries. 3D rendering (Not supervised by radiologist): MIP and/or 3D reconstructed images were created by the technologist. Radiation optimization: All CT scans at this facility use at least one of these dose optimization techniques: automated exposure control; mA and/or kV adjustment per patient size (includes targeted exams where dose is matched to clinical indication); or iterative reconstruction. Contrast material: ISOVUE 370; Contrast volume: 70 ml; Contrast route: INTRAVENOUS (IV); COMPARISON: CT ANGIO CHEST PE PROTOCOL 12/04/2022 2:01 PM FINDINGS: Pulmonary arteries: No CT angiography evidence of pulmonary embolism. Aorta: There is moderate calcific atherosclerotic disease of the thoracic aorta without aneurysmal dilatation. Lungs: Moderate peribronchial edema, diffuse centrilobular ground-glass opacities with bilateral hilar and mediastinal reactive lymph nodes favors viral process versus reactive airways without consolidation. Pleural spaces: Unremarkable. No pneumothorax. No pleural effusion. Heart: Unremarkable. No cardiomegaly. No pericardial effusion. Lymph nodes: See Lungs finding. Gallbladder and biliary ducts: Multiple dependently layering hyperattenuating structures are noted within the gallbladder fossa without wall thickening, or pericholecystic fluid. Bones/joints: Compression fractures of T12 unchanged from prior exam. T10 anterior vertebral widening with approximately 50% loss of height. Soft tissues: Unremarkable. IMPRESSION: 1. Moderate peribronchial edema, diffuse centrilobular ground-glass opacities with bilateral hilar and mediastinal reactive lymph nodes favors viral process versus reactive airways without consolidation. 2. No CT angiography evidence of pulmonary embolism.
--- NOTE | 2024-03-09 17:42 | CT_ITS ---
PROCEDURE INFORMATION: Exam: CT Abdomen And Pelvis With Contrast Exam date and time: 03/09/2024 6:21 PM Age: 68 years old Clinical indication: Other: Abdominal wall cellulitis, R/O nsti TECHNIQUE: Imaging protocol: Computed tomography of the abdomen and pelvis with contrast. 3D rendering (Not supervised by radiologist): MIP and/or 3D reconstructed images were created by the technologist. Radiation optimization: All CT scans at this facility use at least one of these dose optimization techniques: automated exposure control; mA and/or kV adjustment per patient size (includes targeted exams where dose is matched to clinical indication); or iterative reconstruction. Contrast material: ISOVUE; Contrast volume: 70 ml; Contrast route: IV; COMPARISON: CT ABDOMEN PELVIS W CON 09/27/2022 4:35 PM FINDINGS: Liver: Normal. No mass. Gallbladder and biliary ducts: Multiple dependently layering hyperattenuating structures are noted within the gallbladder fossa without wall thickening, or pericholecystic fluid. Pancreas: Normal. No ductal dilation. Spleen: Spleen appears surgically absent. Adrenal glands: Normal. No mass. Kidneys and ureters: Nonobstructive right nephrolithiasis define by multiple right renal calcific densities the largest measuring up to 2.5 cm. Stomach and bowel: Unremarkable. No obstruction. No mucosal thickening. Appendix: No evidence of appendicitis. Intraperitoneal space: Unremarkable. No free air. No significant fluid collection. Vasculature: Moderate calcific atherosclerotic disease of the abdominal aorta without aneurysmal dilatation is present. Lymph nodes: Unremarkable. No enlarged lymph nodes. Urinary bladder: Unremarkable as visualized. Reproductive: Unremarkable as visualized. Bones/joints: Moderate loss of intervertebral disc space with degenerative changes at L4 through S1. T12 compression fracture unchanged from prior exam. T10 anterior wedging with 50% loss of height. Soft tissues: Postsurgical changes the ventral abdominal wall compatible with mesh and tack ventral hernia repair. Left lower quadrant ventral abdominal soft tissue defect with heterogeneous enhancement and inflammatory changes without rim enhancing fluid collection or air densities. IMPRESSION: Left lower quadrant ventral abdominal soft tissue defect with heterogeneous enhancement and inflammatory changes without rim enhancing fluid collection or air densities.
[2024-03-09 18:19] LABS: RBC,Urine Occasional #/hpf (0-3)
[2024-03-09 18:20] LABS: Bacteria,Urine Trace /lpf
[2024-03-09] MEDS: SODIUM CHLORIDE 0.9% 10ML SYR (RAD ONLY) 10 ML IV (18:22)
[2024-03-09] MEDS: 0.9 % SODIUM CHLORIDE 50 ML VIAL IV (18:22)
[2024-03-09] MEDS: IOPAMIDOL-370 (76%);100ML BOTTLE 80 ML IV (18:22)
--- NOTE | 2024-03-09 18:35 | PC.NURSE ---
PT IS AT CT SCAN
[2024-03-09 19:54] LABS: HIV Combo NEGATIVE (Negative)
[2024-03-09] MEDS: VANCOMYCIN CONSULT REQUEST 1 EACH NOTAPPLIC (20:05)
--- NOTE | 2024-03-09 20:05 | PC.NURSE ---
REPORT CALLED TO ANGELIQUE BAPTISTE
[2024-03-09] MEDS: BUMETANIDE 1MG/4ML VIAL 1 MG IV (20:16)
[2024-03-09] MEDS: VANCOMYCIN HCL 2,000 MG in 0.9 % SODIUM CHLORIDE 500 ML 166 MG IV (20:16)
[2024-03-09] MEDS: ENOXAPARIN 40MG/0.4ML SYRINGE 40 MG SUBCUT (20:17)
--- NOTE | 2024-03-09 20:42 | PC.NURSE ---
report called to ANGELIQUE Murray.
--- NOTE | 2024-03-09 20:49 | PC.NURSE ---
Patient arrived to floor via stretcher from ED at 20:37.
[2024-03-09] MEDS: NYSTATIN TOPICAL POWDER 30GM TP (21:00)
[2024-03-09] MEDS: CEFTRIAXONE 1 GM 1 GM in 0.9 % SODIUM CHLORIDE 50 ML IV (21:00)
[2024-03-09] MEDS: MUPIROCIN 2% OINTMENT 22GM TUBE TP (21:00)
[2024-03-09 21:11] LABS: Reflex Lactic Add Lactic Reflex
[2024-03-09 22:33] LABS: Lactic Acid Follow Up (RFLX 1) 1.5 mmol/L (0.7-2.1)
[2024-03-09 22:46] LABS: Troponin I 0.02 ng/ml (0.00-0.034)
--- NOTE | 2024-03-09 23:37 | PC.NURSE ---
Admission assessment completed at this time. Home medication reconciliation completed only partially. Patient stated that she is not entirely sure what she can name that she takes at home, as well as their dosages. Just a few medications were recognized (confirmed in the summary accordingly). She also stated that her daughter usually helps with her medication management. Daughter is not present at this time to confirm more medications.
[2024-03-10] VITALS: BP 111/45; PULSE 91; RESP 18; TEMP 37.3; O2SAT 95
[2024-03-10 00:26] LABS: Troponin I 0.02 ng/ml (0.00-0.034)
--- NOTE | 2024-03-10 02:05 | P.HP_ITS ---
<Statement entered by Goldy Weir MD - 03/12/24 10:31> Personally examined patient and agree with the plan of care as outlined by the DIRECTOR OF ACCOUNTS RECEIVABLE. History of Present Illness *Admission Date: 03/09/24 *Reason for visit:: Abdominal cellulitis, congestive heart failure with weight gain *History of present illness: This 68-year-old female has come to the emergency, with mild confusion per her daughter a fever, and weight gain, on exam patient is found to have a fever also notable skin infection/cellulitis to the abdominal wall below the breast and in the abdominal fold to the groin, this is significant enough that it is showing up on the CT scan. Question abdominal cellulitis fungal versus bacterial or combination of both. Also noting in the patient's history a significant problem with congestive heart failure and left ventricular diastolic dysfunction with high right ventricle pressures., Per Dr. Morgan's note actually should qualify for CardioMEMS to monitor this. Patient is also in atrial fib. Noted with the patient's history she is a splenic has had chronic candidal intertrigo, per daughter is not taking care of self hygiene sitting most of the time. That her mother becomes quite defiant when trying to get her to take a shower hemoglobin of 8.7 in December of this year. The patient also volunteered that her of more than 30 years 6 months ago. in looking at old records that her weight as of this time last year was in the 180s., Presently now in the 230s. Patient also noted with elevated blood pressure greater than 150 systolic. And white count is above 15. But has normal kidney function. So I do agree that the patient needs to be admitted being treating for potential sepsis but will be holding fluids at this time as patient needs extra diuretics. Antibiotics have been started. Also Bactroban to the skin and wound consult, ordered will need further evaluation is if this is dysfunctional grieving that is having her not care for herself at this point in time.. [facility] Disclaimer: The information contained in this section may have been updated after the patient was seen, as this information can be updated by other users. Medical History UTI (urinary tract infection) Renal insufficiency Hyperkalemia Hypotension Hypertension CAD in [place] artery BMI 39.0-39.9,adult Chronic anemia Chronic anticoagulation Coronary artery disease Diabetes HFrEF (heart failure with reduced ejection fraction) Pulmonary hypertension Depression Constipation GERD (gastroesophageal reflux disease) Oxygen dependent Atrial fibrillation Surgical History Status post left heart catheterization Family History Other Alcohol abuse Family history of cancer Heart attack Social History Smoking Status: Never smoker alcohol intake: never current occupational status: unemployed Travel in the last 8 weeks: None Have you lived/traveled outside [place] in past 30 days?: No Contact w/someone who lives/traveled outside US past 30 days?: No Exposure to someone with infectious disease in past 14 days?: No Do you have a fever (greater than 100.4 F or 38 C)?: No Have you tested positive for COVID-19: No Exposed to someone with COVID-19 in past 14 days?: No Do you have a sore throat?: No Do you have a cough?: No Do you have any weakness?: Yes Do you have any diarrhea?: No Are you experiencing any unusual bleeding?: No Do you have any muscle aches/pain?: No Do you have any abdominal pain?: No Are you experiencing loss of taste or smell?: No Other Medical History Have you received the Flu Vaccine for this season: No Have you received the Pneumonia Vaccine: No Review of Systems Review of Systems Review of systems:: pertinent systems reviewed and negative unless documented below Constitutional Constitutional: Reports as per HPI and Reports weakness Comments: Per patient and per family she does not walk much and only stays in the house. Spends a lot of time sitting in a chair Eyes Eyes: Reports as per HPI ENT Ears, Nose, Mouth, and Throat: Reports as per HPI *Cardiovascular Cardiovascular: Reports as per HPI, Reports dyspnea and Reports dyspnea on exertion Comments: The patient denied any chest pain but shortness of breath is very common for her *Respiratory Respiratory: Reports as per HPI, Reports dyspnea and Reports dyspnea on exertion *Gastrointestinal Gastrointestinal: Reports as per HPI *Genitourinary Genitourinary: Reports as per HPI *Musculoskeletal Musculoskeletal: Reports as per HPI, Reports abnormal gait, Reports atrophy and Reports muscle weakness Integumentary/Breasts Skin/Breast: Reports as per HPI, Reports change in pigmentation and Reports lesions Comments: Under both breast I has a fungal type infection probably candidiasis. Comes and goes with the patient. Patient noting that in her abdominal fold groin area and extremely red rash. *Neurologic Neurologic: Reports abnormal gait and Reports weakness Psychiatric Psychiatric: Reports as per HPI Endocrine Endocrine: Reports as per HPI Hematologic/Lymphatic Hematologic/Lymphatic: Reports as per HPI Allergic/Immunologic Allergic/Immunologic: Reports as per HPI Meds Home Medications and Allergies Home Medications ?Medication ?Instructions ?Recorded ?Confirmed ?Type melatonin 5 mg tablet 5 mg PO HS sleep 09/28/22 03/09/24 History blood sugar diagnostic (Blood #50 ea 04/11/23 01/08/24 Rx Glucose Test strips) blood-glucose meter #1 ea 04/11/23 01/08/24 Rx lancets #100 ea 04/11/23 01/08/24 Rx quetiapine 25 mg tablet 25 mg PO DAILY #90 tabs 07/14/23 03/09/24 Rx atorvastatin 40 mg tablet 40 mg PO HS #90 tabs 10/18/23 01/08/24 Rx dapagliflozin propanediol 10 mg 10 mg PO DAILYDM Diabetes #90 tabs 10/20/23 Rx tablet duloxetine 60 mg capsule,delayed 60 mg PO DAILY #90 caps 10/20/23 01/08/24 Rx release famotidine 20 mg tablet 20 mg PO DAILY Acid Reflux #90 tabs 10/20/23 01/08/24 Rx metoprolol succinate 25 mg 25 mg PO DAILY #90 tabs 10/20/23 03/09/24 Rx tablet,extended release 24 hr pantoprazole 40 mg tablet,delayed 40 mg PO HS #90 tabs 10/20/23 03/09/24 Rx release spironolactone 25 mg tablet 25 mg PO DAILY #90 tabs 10/20/23 03/09/24 Rx bumetanide 1 mg tablet See Rx Instructions .Route 01/09/24 Rx .COMPLEX #90 tabs apixaban 5 mg tablet (Eliquis) 5 mg PO BID Blood Thinner/Afib 01/10/24 Rx #180 tabs aspirin 81 mg tablet,delayed 81 mg PO DAILY #90 tabs 01/10/24 Rx release bumetanide 1 mg tablet 1 mg PO DAILY #90 tabs 01/10/24 Rx ferrous sulfate 325 mg (65 mg 325 mg PO DAILY Supplement #90 tabs 01/10/24 Rx iron) tablet,delayed release magnesium oxide 400 mg PO HS Supplement #90 tabs 01/10/24 Rx nortriptyline 25 mg capsule 25 mg PO HS #90 caps 01/10/24 03/09/24 Rx ramelteon 8 mg tablet 8 mg PO HS PRN sleep #90 tabs 01/10/24 Rx sacubitril 24 mg-valsartan 26 mg 1 tab PO BID 30 days #180 tabs 01/10/24 Rx tablet (Entresto) sennosides 8.6 mg-docusate sodium 1 tab PO HS Constipation #90 tabs 01/10/24 03/09/24 Rx 50 mg tablet (Senna-S) cariprazine 1.5 mg capsule 1.5 mg PO DAILY #30 caps 01/15/24 Rx (Vraylar) tirzepatide 5 mg/0.5 mL 5 mg (0.5 mL) SQ WEEKLY #2.5 mL 02/08/24 03/09/24 Rx subcutaneous pen injector (Mounjaro) cephalexin 500 mg capsule 1,000 mg (2 x 500 mg) PO BID 5 02/10/24 Rx days #20 caps New Prescriptions to Start Prescriptions: Allergies Allergy/AdvReac Type Severity Reaction Status Date / Time levofloxacin Allergy Verified 01/08/24 08:22 meperidine Allergy Verified 01/08/24 08:22 Exam Data for Last 24 hours Vital signs and Labs for Last 24 Hours: Temp Pulse Resp BP Pulse Ox O2 Del Method 99.1 F 91 H 18 111/45 L 95 Room Air 03/10/24 00:00 03/10/24 00:00 03/10/24 00:00 03/10/24 00:00 03/10/24 00:00 03/10/24 01:00 Laboratory Results - last 24 hr 03/09/24 16:51: WBC 15.7 H, RBC 3.94 L, Hgb 10.6 L, Hct 34.9 L, MCV 88.6, MCH 26.9 L, MCHC 30.4 L, RDW 15.9, Plt Count 453 H, MPV 9.9, Neut % (Auto) 79.6, Lymph % (Auto) 6.0 L, [place] % (Auto) 12.2 H, Eos % (Auto) 0.7, Baso % (Auto) 1.0, Neut # (Auto) 12.5 H, Lymph # (Auto) 0.9, [place] # (Auto) 1.9 H, Eos # (Auto) 0.1, Baso # (Auto) 0.2, Total Counted 100, Neutrophils % (Manual) 90 H, Band Neutrophils % 2.0, Lymphocytes % (Manual) 3 L, Monocytes % (Manual) 5, Platelet Estimate Slight increase, Poikilocytosis 1+, Anisocytosis 2+, Target Cells 1+, D-Dimer 0.88 H, Sodium 136, Potassium 4.3, Chloride 98, Carbon Dioxide 31 H, Anion Gap 11.3, BUN 21 H, Creatinine 0.90, Estimated Creat Clear 92, Estimated GFR 62, Est GFR ( Amer) 75, Glucose 158 H, Calcium 9.3, Total Bilirubin 1.1, AST 27, ALT 19, Alkaline Phosphatase 135 H, Troponin I 0.02, NT-Pro-B Natriuret Pep 79934 H, Total Protein 7.6, Albumin 3.9, Globulin 3.7 H, Albumin/Globulin Ratio 1.1, HIV Ag/Ab Combo Qual Negative 03/09/24 17:00: SARS-CoV-2 (PCR) Not detected, Influenza A Untype (PCR) Not detected, Influenza Type B (PCR) Not detected 03/09/24 17:03: VBG pH 7.39, VBG pCO2 46.9, VBG pO2 37.0, VBG HCO3 27.6, VBG Total CO2 29.0 H, VBG O2 Saturation 67.8, VBG Base Excess 2.6 H, VBG Lactic Acid 2.1 H 03/09/24 17:15: Urine Color Yellow, Urine Appearance Clear, Urine pH 6.0, Ur Specific [place] 1.015, Urine Protein Trace, Urine Glucose (UA) 3+, Urine Ketones Negative, Urine Blood 1+ A, Urine Nitrate Negative, Urine Bilirubin Negative, Urine Urobilinogen 0.2, Ur Leukocyte Esterase Trace, Urine RBC Occasional, Urine WBC 10-20, Ur Squamous Epith Cells 5-10, Urine Bacteria Trace 03/09/24 22:00: Lactate 1.5, Troponin I 0.02 03/09/24 23:50: Troponin I 0.02 I & O for Last 24 hours: Intake & Output 03/07/24 03/08/24 03/09/24 03/10/24 05:59 05:59 05:59 05:59 Intake Total 286 / 286 Output Total 1025 / 1025 Balance -739 / -739 Weight 245 lb Radiology Reports for the Last 24 Hours: CT of the abdomen shows tissue changes in the abdominal wall, indicating cellulitis CT of the lungs some groundglass opacities, question CHF Constitutional Constitutional: mild distress Comments: Patient does fairly well while sitting on the stretcher not being able to ambulate she does not have any shortness of breath mentally alert was not appear to be confused as this is our first meeting. Seems to be able to give a fairly decent history that daughter does not counter. , *Routine HEENT Exam Head: Present normocephalic and atraumatic Eye: Present EOMI ENT: Present mucous membranes moist *Routine Neck Exam Neck: Present supple and full ROM Comments: Patient is able to move her neck without any difficulty no signs of pain Routine Chest/Breast/Axilla Exam Chest wall: Present tenderness Breast: Present rashes (Candidiasis type yeast infection under both breasts on abdominal wall) Axillae: Present erythema *Routine Respiratory Exam Respiratory: Present decreased breath sounds, CTA bilaterally, diminished air movement, normal respiratory effort, able to speak in complete sentences and symmetric chest movement *Routine Cardiovascular Exam Cardiovascular: Present RRR, Normal S1, murmur and irregular rhythm *Routine Abdominal Exam Abdominal: Present soft, normoactive bowel sounds and obese *Routine Rectal Exam Rectal:: deferred *Routine Genitalia Exam Genitalia:: other (Reddened yeast type infection through entire groin area and under abdominal fold) *Routine Extremities Exam Extremities: Present edema, full ROM, normal capillary refill and vascular access Comments: Pitting edema noticed in both lower extremity Routine Back/Spine/Pelvis Exam Back/Spine: Present full ROM and CVA tenderness Comments: Patient reported no unusual back pain, *Routine Skin Exam Skin: Present erythema, warm, normal turgor, wounds and rash Comments: Patient has yeast type infection rash to under both breast. Trace in the axillary area, but the groin and under the abdominal belly fold bright red foul- smelling wet taking up about 90% of her pelvic area down into the folds of the thighs and partially down the thighs. *Routine Neurological Exam Neurological: Present alert, oriented X3, CN II-XII intact, moving all extremities, vision grossly intact and hearing grossly intact Comments: No acute neurologic findings appears to be normal at this time Routine Psychiatric Exam Psychiatric: Present normal affect, normal thought process, cooperative, good insight and good judgment Comments: During this exam the patient was very friendly very open telling what was going on with her seem to be in complete control of her faculties H&P: Result Impressions 1. CHF worsening with weight gain 2. Abdominal wall and abdominal skin with yeast infection/cellulitis possible bacterial infection secondary 3. Dysfunctional grieving 6 months ago is no longer caring for her hygiene 4. Deconditioning having difficulty even walking in the house now. Imaging and Cardiology CT scan - abdomen: Status: image reviewed by me Additional comments: Abdominal wall skin changing congruent with cellulitis. CT scan - chest: Status: image reviewed by me Additional comments: No acute infiltrate but groundglass pattern throughout the lungs. Assessment and Plan *Assessment and plan (1) Abdominal wall cellulitis: Status: Acute Category: Medical Code(s): L03.311 - Cellulitis of abdominal wall (2) Sepsis: Status: Acute Qualifiers: Sepsis type: sepsis due to unspecified organism Sepsis acute organ dysfunction status: unspecified Qualified Code(s): A41.9 - Sepsis, unspecified organism Category: Medical Code(s): A41.9 - Sepsis, unspecified organism (3) Elevated white blood cell count: Status: Acute Qualifiers: Leukocytosis type: leukemoid reaction Qualified Code(s): D72.823 - Leukemoid reaction Category: Medical Code(s): D72.829 - Elevated white blood cell count, unspecified (4) Acute exacerbation of CHF (congestive heart failure): Status: Acute Qualifiers: Heart failure type: combined systolic and diastolic Qualified Code(s): I50.43 - Acute on chronic combined systolic (congestive) and diastolic (congestive) heart failure Category: Medical Code(s): I50.9 - Heart failure, unspecified (5) Atrial fibrillation: Status: Acute Qualifiers: Atrial fibrillation type: longstanding persistent Qualified Code(s): I48.11 - Longstanding persistent atrial fibrillation Category: Medical Code(s): I48.91 - Unspecified atrial fibrillation (6) Left ventricular diastolic dysfunction: Status: Acute Category: Medical Code(s): I51.9 - Heart disease, unspecified (7) Elevated brain natriuretic peptide (BNP) level: Status: Acute Category: Medical Code(s): R79.89 - Other specified abnormal findings of blood chemistry (8) Candidal intertrigo: Status: Acute Category: Medical Code(s): B37.2 - Candidiasis of skin and nail (9) Fever: Status: Acute Qualifiers: Fever type: unspecified Qualified Code(s): R50.9 - Fever, unspecified Category: Medical Code(s): R50.9 - Fever, unspecified (10) Asplenia: Status: Acute Category: Medical Code(s): Q89.01 - Asplenia (congenital) (11) Weight gain, abnormal: Status: Acute Category: Medical Code(s): R63.5 - Abnormal weight gain Plan 1. For the elevated white count sepsis and abdominal wall cellulitis., Will start to treat with nystatin and Bactroban externally. Placed on vancomycin and Rocephin IV. Have ordered wound valuation to also communication to roll towel to keep skin of the abdominal fold off of the groin to allow air to take place also to elevate the breast.. Also noting the patient has fever with elevated white count 2. Chronic CHF with diastolic dysfunction. With 40 pound weight gain. Per the patient's records keeping her weight near 180 190 she does fairly well. She has been in the hospital before with elevation of weight requiring meant of the CHF. She has had cardiac workup that shows significant diastolic dysfunction atrial fibs per Dr. Morgan's note actually would benefit from CardioMEMS and noting a severe LVEDP. Patient now also with pitting edema both lower extremities 3. Possible dysfunctional grieving patient's hygiene has decreased considerably per family members. Her approximately 6 months ago after more than 30 years of marriage.
--- NOTE | 2024-03-10 02:17 | CA_ITS ---
APPROVED REPORT EXAM: Comprehensive 2D, Doppler, and color-flow Echocardiogram Glassware Defect Repairer: Sunitha Garcia RT(R) Ht: 5 ft 5 in Wt: 245lbs BSA: 2.16 BP: 160/73 mmHg Indications: CHF, edema, HTN, DM, 30-40 lb weight gain x 1 month, CAD, fever, AFIB. Limited images in the 4 chamber secondary to rash/cellulitis under left breast. Patient was unable to tolerate pressure in this region. 2D Dimensions Left Atrium 3.83 cm F: 2.7 - 3.8 LVOT 1.92 cm (M/F) 1.5-2.5 M-Mode Dimensions RVDd 4.11 cm (0.9-2.6) LVDd 4.58 cm (3.5-5.7) Ao Diam 3.37 cm (2.0-3.7) LVDs 3.31 cm (3.5-5.7) IVSd 1.36 cm (0.6-1.1) PWd 0.98 cm (0.6-1.1) EF (Teich) 53.80% FS 27.70% EDV (Teich) 96.30 mL ESV (Teich) 44.50 mL LV Diastology E Decel Time 175 (160-240 msec) E/A Ratio 9.0 MED E' 9.2 (>= 7 cm/sec) E'/MED E' Ratio 12.76 (<= 14) LAT E' 9.4 (>= 10 cm/sec) E/LAT E' Ratio 12.49 (<= 14) Mitral Valve MV E Max [place]en. 117.0 (40-130 cm/s) MV A Velocity 13.0 (40-130 cm/s) E/A Ratio 8.76 MV Decel. Time 175 (160-240 ms) MV PHT 72.0 ms Tricuspid Valve TR P. Velocity 423.00 cm/s RAP Estimate 10.00 mmHg RVSP 81.60 mmHg Left Ventricle The left ventricle is normal size. The left ventricular systolic function is normal. The left ventricular ejection fraction is within the normal range. There is increased LV wall thickness. Septal flattening is present, consistent with right-sided volume/pressure overload. Diastolic function is indeterminate. LVEF is 55%. Right Ventricle The right ventricle is severely dilated. Right ventricle is severely hypokinetic. Atria The left atrium is mildly dilated. The right atrium is severely dilated. The interatrial septum is not well-visualized. Aortic Valve The aortic valve is mildly thickened. There is no aortic valvular stenosis. Trace aortic regurgitation. Mitral Valve The mitral valve is mildly thickened. No evidence of mitral valve stenosis. Mild mitral regurgitation. Tricuspid Valve The tricuspid valve leaflets are thin and pliable. Severe tricuspid regurgitation is present. RVSP is > 60 mmHg. Pulmonic Valve The pulmonary valve is normal in structure. Mild pulmonic regurgitation. Great Vessels The aortic root is not well-visualized. The IVC is not well-visualized. Pericardium There is no pericardial effusion. Other Information Study Quality: Technically Difficult. Technically limited study due to inability to position patient. Conclusion Technically difficult study due to poor acoustic windows. Normal LV systolic function. Severe RV dilation with severe reduction in RV function. Severe TR. Mild MR, mild PI. Markedly elevated RVSP > 60 mmHg. Electronically signed by : Ruth Carreno MD 03/12/2024 09:36:15
[2024-03-10] MEDS: BUMETANIDE 1MG/4ML VIAL 1 MG IV ×4 (03:00→20:52)
[2024-03-10 04:00] VITALS: BMI 40.8
[2024-03-10 04:27] LABS: Hepatitis C Ab Qual. W/ RFX NEGATIVE (Negative)
--- NOTE | 2024-03-10 04:30 | PC.NURSE ---
Ms Rica Flannery was newly admitted last night on behalf of the following documented diagnoses: cellulitis of the abdomen and CHF. The patient explained that she has been having weakness and shortness of breath for the past couple of days; she has been having to use a walker at home to help her ambulate because of this. She has also been dealing with occasional shortness of breath during some exertion; she said that she does not typically wear oxygen at home. She has not slept in 3 days. Patient also stated that she has not been having an adequate appetite either. Her daughters help take care of her at home. Redness and excoriation was observed in the patient's abdominal folds, perineal folds, and underneath her breasts. Nystatin powder and mupirocin cream was applied to the affected areas this shift. Areas advised to keep dry. Patient does not report any pain or discomfort in the areas. Redness was also noted on her left anterior mantilla; edema was noted in her bilateral lower and upper extremities. She was given a bed bath this shift. During auscultation of her lungs, diminished air movement was heard. Occasional audible wheezing was also noticed from the patient. Auscultation of her heart and her bowels were within normal findings. Bumex (diuresing the patient) was administered per MAR this shift. IV antibiotics initiated as well. Patient has been having adequate urine output this shift; a purewick has been utilized this shift by the patient. Patient requires at least x2 assistance with transferring/ambulation. She has remained NPO after midnight this shift. ACHS glucose fingersticks to be performed. At this time, the patient is resting in bed with eyes closed, respirations even and unlabored on room air, and has no apparent distress. Call light within reach.
[2024-03-10 05:43] LABS: POC Glucose,Bedside 160 (70-110)
[2024-03-10] MEDS: humaLOG 100 UNITS/ML 10ML VIAL (SSI) SUBCUT ×3 (05:50→20:52)
[2024-03-10 06:56] LABS: Basophils # 0.1 K/mm3 (0-0.2); Basophils % 1.2 % (0.1-2.0); Eosinophils # 0.2 K/mm3 (0.0-0.4); Eosinophils % 1.5 % (0.1-12.0); Hematocrit 33.9 % (37.0-47.0); Hemoglobin 10.6 g/dL (12.2-16.2); Lymphocytes # 0.9 K/mm3 (0.7-4.5); Lymphocytes % 7.7 % (10-50); Mean Corpuscular HGB Conc 31.3 g/dL (31.8-35.4); Mean Corpuscular Hemoglobin 27.4 pg (27.0-31.2); Mean Corpuscular Volume 87.6 fl (81-99); Monocytes # 1.8 K/mm3 (0.1-1.0); Monocytes % 15.3 % (1.7-9.3); Neutrophils # 8.7 K/mm3 (1.8-7.8); Neutrophils % 73.7 % (37.0-80.0); Platelet Count 425 K/mm3 (142-424); Red Blood Count 3.87 M/mm3 (4.20-5.40); Red Cell Distribution Width 16.1 % (11.5-17.5); White Blood Count 11.8 K/mm3 (4.8-10.8)
[2024-03-10 07:22] LABS: Alanine Aminotransferase 15 U/L (12-78); Albumin Level 3.4 g/dl (3.5-5.0); Alkaline Phosphatase 124 U/L (38-126); Aspartate Amino Transferase 25 U/L (14-36); Bilirubin,Total 0.7 mg/dl (0.2-1.3); Blood Urea Nitrogen 19 mg/dl (7-17); Calcium 8.7 mg/dl (8.4-10.2); Carbon Dioxide 31 mmol/L (22.0-30.0); Creatinine Clearance Estimated 45 mL/min (50-200); Estimated Glomerular Filt Rate 62 ml/min (>60); GFR (African American) 75 ML/MIN (>60); Globulin 3.5 g/dL (1.3-3.2); Glucose 157 mg/dl (74-100); Magnesium 1.7 mg/dl (1.6-2.3); Total Protein,Serum 6.9 g/dl (6.3-8.2)
[2024-03-10 07:26] LABS: Chloride 98 mmol/L (98-107)
[2024-03-10 07:31] LABS: Lactic Acid 1.1 mmol/L (0.7-2.1)
[2024-03-10 07:58] LABS: Sodium 135 mmol/L (136-145)
[2024-03-10 08:00] VITALS: BP 131/72; PULSE 78; RESP 19; TEMP 36.7; O2SAT 93
[2024-03-10 08:39] LABS: Thyroid Stimulating Hormone 0.79 uIU/mL (0.465-4.68)
--- NOTE | 2024-03-10 09:02 | P.CONPHA_ITS ---
Pharmacy Consult Date: 03/10/24 Time: 09:03 Referring provider: DR. GARCIA Reason for Consult:: VANCOMYCIN DOSING Allergies Allergy/AdvReac Type Severity Reaction Status Date / Time levofloxacin Allergy Verified 01/08/24 08:22 meperidine Allergy Verified 01/08/24 08:22 Home Medications ?Medication ?Instructions ?Recorded ?Confirmed ?Type melatonin 5 mg tablet 5 mg PO HS sleep 09/28/22 03/09/24 History blood sugar diagnostic (Blood #50 ea 04/11/23 01/08/24 Rx Glucose Test strips) blood-glucose meter #1 ea 04/11/23 01/08/24 Rx lancets #100 ea 04/11/23 01/08/24 Rx quetiapine 25 mg tablet 25 mg PO DAILY #90 tabs 07/14/23 03/09/24 Rx atorvastatin 40 mg tablet 40 mg PO HS #90 tabs 10/18/23 01/08/24 Rx dapagliflozin propanediol 10 mg 10 mg PO DAILYDM Diabetes #90 tabs 10/20/23 01/08/24 Rx tablet duloxetine 60 mg capsule,delayed 60 mg PO DAILY #90 caps 10/20/23 01/08/24 Rx release famotidine 20 mg tablet 20 mg PO DAILY Acid Reflux #90 tabs 10/20/23 01/08/24 Rx metoprolol succinate 25 mg 25 mg PO DAILY #90 tabs 10/20/23 03/09/24 Rx tablet,extended release 24 hr pantoprazole 40 mg tablet,delayed 40 mg PO HS #90 tabs 10/20/23 03/09/24 Rx release spironolactone 25 mg tablet 25 mg PO DAILY #90 tabs 10/20/23 03/09/24 Rx bumetanide 1 mg tablet See Rx Instructions .Route 01/09/24 Rx .COMPLEX #90 tabs apixaban 5 mg tablet (Eliquis) 5 mg PO BID Blood Thinner/Afib 01/10/24 Rx #180 tabs aspirin 81 mg tablet,delayed 81 mg PO DAILY #90 tabs 01/10/24 Rx release bumetanide 1 mg tablet 1 mg PO DAILY #90 tabs 01/10/24 Rx ferrous sulfate 325 mg (65 mg 325 mg PO DAILY Supplement #90 tabs 01/10/24 Rx iron) tablet,delayed release magnesium oxide 400 mg PO HS Supplement #90 tabs 01/10/24 Rx nortriptyline 25 mg capsule 25 mg PO HS #90 caps 01/10/24 03/09/24 Rx ramelteon 8 mg tablet 8 mg PO HS PRN sleep #90 tabs 01/10/24 Rx sacubitril 24 mg-valsartan 26 mg 1 tab PO BID 30 days #180 tabs 01/10/24 Rx tablet (Entresto) sennosides 8.6 mg-docusate sodium 1 tab PO HS Constipation #90 tabs 01/10/24 03/09/24 Rx 50 mg tablet (Senna-S) cariprazine 1.5 mg capsule 1.5 mg PO DAILY #30 caps 01/15/24 Rx (Vraylar) tirzepatide 5 mg/0.5 mL 5 mg (0.5 mL) SQ WEEKLY #2.5 mL 02/08/24 03/09/24 Rx subcutaneous pen injector (Mounjaro) cephalexin 500 mg capsule 1,000 mg (2 x 500 mg) PO BID 5 02/10/24 Rx days #20 caps New Prescriptions to Start Prescriptions: Height: 1.65 m Weight: 111.266 kg Laboratory Results:: Laboratory Results - last 24 hr 03/09/24 16:51: WBC 15.7 H, RBC 3.94 L, Hgb 10.6 L, Hct 34.9 L, MCV 88.6, MCH 26.9 L, MCHC 30.4 L, RDW 15.9, Plt Count 453 H, MPV 9.9, Neut % (Auto) 79.6, Lymph % (Auto) 6.0 L, Stephens % (Auto) 12.2 H, Eos % (Auto) 0.7, Baso % (Auto) 1.0, Neut # (Auto) 12.5 H, Lymph # (Auto) 0.9, Stephens # (Auto) 1.9 H, Eos # (Auto) 0.1, Baso # (Auto) 0.2, Total Counted 100, Neutrophils % (Manual) 90 H, Band Neutroph ils % 2.0, Lymphocytes % (Manual) 3 L, Monocytes % (Manual) 5, Platelet Estimate Slight increase, Poikilocytosis 1+, Anisocytosis 2+, Target Cells 1+, D-Dimer 0.88 H, Sodium 136, Potassium 4.3, Chloride 98, Carbon Dioxide 31 H, Anion Gap 11.3, BUN 21 H, Creatinine 0.90, Estimated Creat Clear 92, Estimated GFR 62, Est GFR ( Amer) 75, Glucose 158 H, Calcium 9.3, Total Bilirubin 1.1, AST 27, ALT 19, Alkaline Phosphatase 135 H, Troponin I 0.02, NT-Pro-B Natriuret Pep 42494 H, Total Protein 7.6, Albumin 3.9, Globulin 3.7 H, Albumin/Globulin Ratio 1.1, HCV Ab DARION w/Rflx PCR Qn Negative, HIV Ag/Ab Combo Qual Negative 03/09/24 17:00: SARS-CoV-2 (PCR) Not detected, Influenza A Untype (PCR) Not detected, Influenza Type B (PCR) Not detected 03/09/24 17:03: VBG pH 7.39, VBG pCO2 46.9, VBG pO2 37.0, VBG HCO3 27.6, VBG Total CO2 29.0 H, VBG O2 Saturation 67.8, VBG Base Excess 2.6 H, VBG Lactic Acid 2.1 H 03/09/24 17:15: Urine Color Yellow, Urine Appearance Clear, Urine pH 6.0, Ur Specific Adrian 1.015, Urine Protein Trace, Urine Glucose (UA) 3+, Urine Ketones Negative, Urine Blood 1+ A, Urine Nitrate Negative, Urine Bilirubin Negative, Urine Urobilinogen 0.2, Ur Leukocyte Esterase Trace, Urine RBC Occasional, Urine WBC 10-20, Ur Squamous Epith Cells 5-10, Urine Bacteria Trace 03/09/24 22:00: Lactate 1.5, Troponin I 0.02 03/09/24 23:50: Troponin I 0.02 03/10/24 05:36: POC Glucose 160 H 03/10/24 06:20: WBC 11.8 H, RBC 3.87 L, Hgb 10.6 L, Hct 33.9 L, MCV 87.6, MCH 27.4, MCHC 31.3 L, RDW 16.1, Plt Count 425 H, MPV 10.0, Neut % (Auto) 73.7, Lymph % (Auto) 7.7 L, Stephens % (Auto) 15.3 H, Eos % (Auto) 1.5, Baso % (Auto) 1.2, Neut # (Auto) 8.7 H, Lymph # (Auto) 0.9, Stephens # (Auto) 1.8 H, Eos # (Auto) 0.2, Baso # (Auto) 0.1, Sodium 135 L, Potassium 4.0, Chloride 98, Carbon Dioxide 31 H , Anion Gap 10.0, BUN 19 H, Creatinine 0.90, Estimated Creat Clear 45, Estimated GFR 62, Est GFR ( Amer) 75, Glucose 157 H, Lactate 1.1, Calcium 8.7, Magnesium 1.7, Total Bilirubin 0.7, AST 25, ALT 15, Alkaline Phosphatase 124, Total Protein 6.9, Albumin 3.4 L D, Globulin 3.5 H, Albumin/Globulin Ratio 1.0 L , TSH 0.79 Medical History: Medical History (Updated 03/10/24 @ 02:31 by Patrick Oliveira APRN) UTI (urinary tract infection) Renal insufficiency Hyperkalemia Hypotension Hypertension CAD in robinson artery BMI 39.0-39.9,adult Chronic anemia Chronic anticoagulation Coronary artery disease Diabetes HFrEF (heart failure with reduced ejection fraction) Pulmonary hypertension Depression Constipation GERD (gastroesophageal reflux disease) Oxygen dependent Atrial fibrillation Assessment and Plan Assessment and plan all Dx Assessment and Plan for all problems:: Pharmacokinetic dosing service Objective: Patient: Floor: Age: 68 yo Serum creatinine: 1 mg/dL Height: 65.0 Inches Weight (kg): 111 Assessment: IBW (kg): 57.00 Dosing wt(kg): 111 Estimated Creatinine clearance (ml/min): 47.1 CRCL method: Cockcroft and Gault using ibw(default). Drug selected: Vancomycin Loading dose (mg): 0 Vd (liters): 94.3 (factor used: 0.85 L/kg) Dante (hr-1): 0.043 Half life (hrs): 16.12 Recommended dose: 1750 mg Interval: 18 hrs Infusion time (hrs): 2.0 Predicted peak (mcg/mL): 33.0 Predicted trough (mcg/mL): 16.59 Total body weight is being used for vancomycin dosing. Recommendations: Give Vancomycin 1750 mg q 18 hrs with an expected Cpeak of 33.0 mcg/ml and an expected Ctrough of 16.59 mcg/ml ----Vanco only - ignore for aminoglycosides----- CLvanco= 4.05 L/hr AUC 0-24 /CARLOS Data: CARLOS 0.5 mcg/mL: AUC/CARLOS: 1152.3 CARLOS 1.0 mcg/mL: AUC/CARLOS: 576.1 --------- CARLOS 1.5 mcg/mL: AUC/CARLOS: 384.1 CARLOS 2.0 mcg/mL: AUC/CARLOS: 288.1
--- NOTE | 2024-03-10 09:11 | HMH.PHAINT1 ---
Pharmacy Intervention Comments: home medication list verified using list from outpatient pharmacy and md office
[2024-03-10] MEDS: MUPIROCIN 2% OINTMENT 22GM TUBE TP ×2 (09:14→20:52)
[2024-03-10] MEDS: NYSTATIN TOPICAL POWDER 30GM TP ×4 (09:14→20:53)
[2024-03-10] MEDS: ENOXAPARIN 40MG/0.4ML SYRINGE 40 MG SUBCUT (09:14)
[2024-03-10] MEDS: DOCUSATE SODIUM 100 MG CAPSULE PO (09:15)
--- NOTE | 2024-03-10 09:19 | HMH.PTEV ---
Physical Therapy Evaluation Rehab PT IP Evaluation Start: 03/09/24 20:02 Freq: ONCE Status: Active Protocol: Document 03/10/24 09:14 SAM (Rec: 03/10/24 09:19 SAM [id number]) Subjective/History History History Per H&P: This 68-year-old female has come to the emergency, with mild confusion per her daughter a fever, and weight gain, on exam patient is found to have a fever also notable skin infection/ cellulitis to the abdominal wall below the breast and in the abdominal fold to the groin, this is significant enough that it is showing up on the CT scan. Question abdominal cellulitis fungal versus bacterial or combination of both... Subjective Subjective PLOF: IND with ADLs and mobility/ambulation. Pt sometimes uses RW. Home: Lives with daughters in farm home. Daughters work so pt is home alone at times during day. 2 story home but uses first level. [facility] home. New diagnosis of cancer in past 12 No months? Rehab PT IP Eval Objective Appearance Patient Behavior Appropriate,Cooperative Patient Orientation Person,Place,Situation Difficulty following instructions none Speech Pattern Clear Ambulation Patient Able to Ambulate Yes Ambulation Observation IP General Gait Pattern Observation Wide Based Gait Ambulation Distance (feet) 25 Ambulation Assistive Device Rolling Walker Ambulation Ability Contact Guard/Hand Hold Balance Ability to Arise Able, uses arms to help Sitting Balance Steady, safe Standing Balance Steady, wide stance Dynamic Sitting Balance Ability Good Dynamic Standing Balance Ability Fair Transfers Bed Transfer Ability Minimal x 1 (25% assist) Sit to Stand Bed Transfer Ability Contact Guard/Hand Hold Rehab PT IP prob,goals,plan Problems Date of Evaluation: 03/10/24 PT IP Problems Bed Mobility,Transfers,Gait, Balance,Self care,Safety Rehab Potential Rehab Potential Good Equipment Needs Assistive Devices Rolling / Wheeled Walker Plan PT Intervention Plan Bed Mobility,Transfers,Gait, Balance,Self care,Safety, Therapeutic Exercise Other Intervention Plan 1-2 times PT Plan Frequency Daily Duration LOS Discharge Goals Bed Transfer Ability Contact Guard/Hand Hold Sit to Stand Chair Transfer Ability Supervision/Stand by Ambulation Assistive Device Rolling Walker Ambulation Distance (feet) 100 Discharge Plan PT Discharge Plan Initial physical therapy evaluation performed. Patient presents below baseline at this time in functional mobility, transfers, and strength. At this time pt requires Min A - CGA for mobility. PT recommending short-term rehabilitation stay upon d/c from [facility]. Pt would benefit from skilled PT while at [facility] to prevent further functional decline and maximize safety with mobility. Eval Complexity Eval Charge Codes 84071 - Moderate Complexity PHYSICIAN CERTIFICATION: I certify the specified therapy services for Rica Flannery are required, authorized, and reviewed every 30 days.
[2024-03-10 09:24] LABS: Hemoglobin A1C 8.3 % (4.0-6.0)
--- NOTE | 2024-03-10 10:09 | HMH.OTEV ---
OT Inpatient Evaluation Rehab OT IP Evaluation Start: 03/09/24 20:06 Freq: ONCE Status: Active Protocol: Document 03/10/24 09:59 FLORIKEVIN (Rec: 03/10/24 10:08 DREAD [id number]) Rehab OT IP Assessment Subjective History History of Present Illness *Admission Date: 03/09/24 *Reason for visit:: Abdominal cellulitis, congestive heart failure with weight gain *History of present illness: This 68-year-old female has come to the emergency, with mild confusion per her daughter a fever, and weight gain, on exam patient is found to have a fever also notable skin infection/cellulitis to the abdominal wall below the breast and in the abdominal fold to the groin, this is significant enough that it is showing up on the CT scan. Question abdominal cellulitis fungal versus bacterial or combination of both. Also noting in the patient's history a significant problem with congestive heart failure and left ventricular diastolic dysfunction with high right ventricle pressures., Per Dr. Morgan's note actually should qualify for CardioMEMS to monitor this. Patient is also in atrial fib. Noted with the patient's history she is a splenic has had chronic candidal intertrigo, per daughter is not taking care of self hygiene sitting most of the time. That her mother becomes quite defiant when trying to get her to take a shower hemoglobin of 8.7 in December of this year. The patient also volunteered that her of more than 30 years 6 months ago. in looking at old records that her weight as of this time last year was in the 180s., Presently now in the 230s. Patient also noted with elevated blood pressure greater than 150 systolic. And white count is above 15. But has normal kidney function . So I do agree that the patient needs to be admitted being treating for potential sepsis but will be holding fluids at this time as patient needs extra diuretics. Antibiotics have been started. Also Bactroban to the skin and wound consult, ordered will need further evaluation is if this is dysfunctional grieving that is having her not care for herself at this point in time.. Patient [place] with [place] with 2 daughters and a son in law. Both daughters work multimedia manager and son in law works on the farm and out of town at times. Patient is at home alone at times. Patient uses a RW to ambulate. Patient is needing increase assistance for hygiene and further ADLs. Subjective I can get up. Instructed Patient on safety awareness to complete bed mobility, transfers, fx'l mobility and LB drsg. Patient required Mod/Min A For bed mobility. Mod A For transfer. Min A for fx'l mobility with usage of RW. Mod A for LB drsg . Patient able to maneuver throughout environment of room ~20ft. Assisted Patient back to bed. Left Patient sitting upright in bed with needs met at end of session. Objective Patient Orientation Person,Name,Age,Year Right Upper Extremity Gross ROM WFL Left Upper Extremity Gross ROM WFL Bed Mobility bed mobility - supine/sit Assist Level Moderate x 1 (50% assist) Transfer Training Sit/Stand Transfer Assist Level Minimal x 2 (25% assist) Chair Transfer Ability Minimal x 2 (25% assist), Moderate x 1 (50% assist) Chair Transfer Assistive Devices Rolling Walker Rehab OT IP prob,goals,plan Problems Date of Evaluation: 03/10/24 OT IP Problems Bed Mobility,Transfers,Balance ,Self care,Safety Rehab Potential Rehab Potential Good Equipment Needs Assistive Devices None / NA Plan OT intervention Plan Bed Mobility,Transfers,Balance ,Self care,Safety,Therapeutic Exercise OT Plan Frequency Daily Duration LOS Discharge Goals Bed Mobility Ability Assistance x1 Sit to Stand Chair Transfer Ability Minimal x 2 (25% assist) Chair Transfer Ability Minimal x 2 (25% assist) Chair Transfer Technique Sit to/from Ambulatory Chair Transfer Assistive Devices Rolling Walker Discharge Plan OT Discharge Plan Recommend placement at this time. Patient will required 24 /7 care for [facility] and [facility]hab. Patient to continue skilled OT IP services while here at [facility]. Eval Complexity Eval Charge Codes 17323 - Low Complexity PHYSICIAN CERTIFICATION: I certify the specified therapy services for Rica Flannery are required, authorized, and reviewed every 30 days.
--- NOTE | 2024-03-10 10:09 | SW/DCPLANNER ---
Addendum entered by Kacey Ho 03/12/24 10:48: I have updated Vinnie mckoy/ [facility] that patient will discharge today SNF level of care. Addendum entered by Kacey Ho 03/11/24 11:08: Per [facility] mckoy/ [facility] patient is approved for [facility] once medically stable for discharge. Patient will have inpatient qualifying stay starting tomorrow 03/12/24. Original Note: I spoke w/ vishnu patient regarding plans once medically stable for discharge. PT/OT evaluated patient and recommended SNF level of care. Patient is agreeable to placement and request information be faxed to [facility]. I spoke w/ Vinnie at [facility] whom stated they do have one bed available. Patient information will be faxed to [facility] this AM. Discharge date is unknown at this time. Patient requested that I call and update her daughter (Char): no answer at this time VM left.
--- NOTE | 2024-03-10 10:34 | HMH.PTWOUND ---
Rehab Inpt Wound Evaluation Rehab IP Wound Evaluation Start: 03/09/24 20:10 Freq: ONCE Status: Active Protocol: Document 03/10/24 10:28 RAMIREZ (Rec: 03/10/24 10:34 RAMIREZ [id number]) Rehab PT Wound Assessment Subjective Subjective Per H&P: This 68-year-old female has come to the emergency, with mild confusion per her daughter a fever, and weight gain, on exam patient is found to have a fever also notable skin infection/ cellulitis to the abdominal wall below the breast and in the abdominal fold to the groin, this is significant enough that it is showing up on the CT scan. Question abdominal cellulitis fungal versus bacterial or combination of both... Inpatient PT wound care order entered due to low scottie score upon admission. No current wounds noted and nsg is performing appropriate pressure relief per protocols. Plan/Recommendation Comment No further PT wound care needs at this time. Eval Complexity Eval Charge Codes 68905 - High Complexity PHYSICIAN CERTIFICATION: I certify the specified therapy services for Rica Flannery are required, authorized, and reviewed every 30 days.
--- NOTE | 2024-03-10 10:40 | HMH.PTWOUND ---
Rehab Inpt Wound Evaluation Rehab IP Wound Evaluation Start: 03/09/24 20:10 Freq: ONCE Status: Active Protocol: Document 03/10/24 10:28 RAMIREZ (Rec: 03/10/24 10:34 RAMIREZ [id number]) Rehab PT Wound Assessment Subjective Subjective Per H&P: This 68-year-old female has come to the emergency, with mild confusion per her daughter a fever, and weight gain, on exam patient is found to have a fever also notable skin infection/ cellulitis to the abdominal wall below the breast and in the abdominal fold to the groin, this is significant enough that it is showing up on the CT scan. Question abdominal cellulitis fungal versus bacterial or combination of both... Inpatient PT wound care order entered due abdominal cellulitis. Currently she has significant redness throughout her groin and under her breasts. This presents as a likely fungal infection and us currently being treated appropriately by physician. No further PT wound care needs noted at this time. Plan/Recommendation Comment No further PT wound care needs at this time. Eval Complexity Eval Charge Codes 27169 - High Complexity PHYSICIAN CERTIFICATION: I certify the specified therapy services for Rica Flannery are required, authorized, and reviewed every 30 days.
[2024-03-10 11:37] LABS: POC Glucose,Bedside 196 (70-110)
[2024-03-10 12:00] VITALS: BP 120/67; PULSE 86; RESP 20; TEMP 36.6; O2SAT 96
--- NOTE | 2024-03-10 12:27 | EXP.CARD.CON ---
History of Present Illness History of Present Illness Consult date: 03/10/24 Requesting physician: Goldy Weir Chief complaint: confusion, SOA History of present illness: 68-year-old white female formally established patient of our office not seen since 2022 with a history of nonobstructive CAD per heart cath November 2022. She also has cor pulmonale with severe pulmonary hypertension, severe RV dilation and dysfunction as well as severe TR. She has paroxysmal atrial fibrillation, diabetes, obesity, hypertension. Patient presented to the emergency room with complaints of confusion fever and cellulitis of her abdominal wall. She and her daughter also report a history of 40 pound weight gain. All of the symptoms have been worsening since her 6 months ago. Patient meets sepsis criteria and was admitted to the hospital. Workup included D-dimer of 0.88, troponin normal x 2, proBNP 10,000, CTA chest showing moderate peribronchial edema, diffuse groundglass opacities, bilateral hilar and mediastinal reactive lymph nodes which favor a viral process, negative for PE. EKG shows A-fib with a rate of 89 bpm. Repeat echo here is pending. Patient was placed on Bumex IV twice daily and is so far -1500 mL. This morning on my evaluation patient is alert and oriented without immediate complaints. She remains in A-fib rate controlled. There is trace bilateral lower extremity edema, she has reduced airflow in all child with associated wheezing. [facility] Disclaimer: The information contained in this section may have been updated after the patient was seen, as this information can be updated by other users. Medical History UTI (urinary tract infection) Renal insufficiency Hyperkalemia Hypotension Hypertension CAD in [place] artery BMI 39.0-39.9,adult Chronic anemia Chronic anticoagulation Coronary artery disease Diabetes HFrEF (heart failure with reduced ejection fraction) Pulmonary hypertension Depression Constipation GERD (gastroesophageal reflux disease) Oxygen dependent Atrial fibrillation Surgical History Status post left heart catheterization Family History Other Alcohol abuse Family history of cancer Heart attack Social History Smoking Status: Never smoker alcohol intake: never current occupational status: unemployed Travel in the last 8 weeks: None Have you lived/traveled outside US in past 30 days?: No Contact w/someone who lives/traveled outside US past 30 days?: No Exposure to someone with infectious disease in past 14 days?: No Do you have a fever (greater than 100.4 F or 38 C)?: No Have you tested positive for COVID-19: No Exposed to someone with COVID-19 in past 14 days?: No Do you have a sore throat?: No Do you have a cough?: No Do you have any weakness?: Yes Do you have any diarrhea?: No Are you experiencing any unusual bleeding?: No Do you have any muscle aches/pain?: No Do you have any abdominal pain?: No Are you experiencing loss of taste or smell?: No Review of Systems Constitutional Constitutional: Reports weakness Eyes Eyes: Denies loss of vision ENT Ears, Nose, Mouth, and Throat: Denies hearing loss *Cardiovascular Cardiovascular: Denies chest pain and Reports dyspnea *Respiratory Respiratory: Denies cough and Reports dyspnea *Gastrointestinal Gastrointestinal: Denies change in stool character, Denies nausea and Denies vomiting *Musculoskeletal Musculoskeletal: Reports abnormal gait Integumentary/Breasts Skin/Breast: Denies changing lesions *Neurologic Neurologic: Reports abnormal gait, Denies loss of vision and Reports weakness Exam Data for Last 24 hours Vital signs and Labs for Last 24 Hours: Temp Pulse Resp BP Pulse Ox O2 Del Method 98.1 F 78 19 131/72 93 L Room Air 03/10/24 08:00 03/10/24 08:00 03/10/24 08:00 03/10/24 08:00 03/10/24 08:00 03/10/24 08:00 Laboratory Results - last 24 hr 03/09/24 16:51: WBC 15.7 H, RBC 3.94 L, Hgb 10.6 L, Hct 34.9 L, MCV 88.6, MCH 26.9 L, MCHC 30.4 L, RDW 15.9, Plt Count 453 H, MPV 9.9, Neut % (Auto) 79.6, Lymph % (Auto) 6.0 L, [place] % (Auto) 12.2 H, Eos % (Auto) 0.7, Baso % (Auto) 1.0, Neut # (Auto) 12.5 H, Lymph # (Auto) 0.9, [place] # (Auto) 1.9 H, Eos # (Auto) 0.1, Baso # (Auto) 0.2, Total Counted 100, Neutrophils % (Manual) 90 H, Band Neutrophils % 2.0, Lymphocytes % (Manual) 3 L, Monocytes % (Manual) 5, Platelet Estimate Slight increase, Poikilocytosis 1+, Anisocytosis 2+, Target Cells 1+, D-Dimer 0.88 H, Sodium 136, Potassium 4.3, Chloride 98, Carbon Dioxide 31 H, Anion Gap 11.3, BUN 21 H, Creatinine 0.90, Estimated Creat Clear 92, Estimated GFR 62, Est GFR ( Amer) 75, Glucose 158 H, Calcium 9.3, Total Bilirubin 1.1, AST 27, ALT 19, Alkaline Phosphatase 135 H, Troponin I 0.02, NT-Pro-B Natriuret Pep 28294 H, Total Protein 7.6, Albumin 3.9, Globulin 3.7 H, Albumin/Globulin Ratio 1.1, HCV Ab DARION w/Rflx PCR Qn Negative, HIV Ag/Ab Combo Qual Negative 03/09/24 17:00: SARS-CoV-2 (PCR) Not detected, Influenza A Untype (PCR) Not detected, Influenza Type B (PCR) Not detected 03/09/24 17:03: VBG pH 7.39, VBG pCO2 46.9, VBG pO2 37.0, VBG HCO3 27.6, VBG Total CO2 29.0 H, VBG O2 Saturation 67.8, VBG Base Excess 2.6 H, VBG Lactic Acid 2.1 H 03/09/24 17:15: Urine Color Yellow, Urine Appearance Clear, Urine pH 6.0, Ur Specific [place] 1.015, Urine Protein Trace, Urine Glucose (UA) 3+, Urine Ketones Negative, Urine Blood 1+ A, Urine Nitrate Negative, Urine Bilirubin Negative, Urine Urobilinogen 0.2, Ur Leukocyte Esterase Trace, Urine RBC Occasional, Urine WBC 10-20, Ur Squamous Epith Cells 5-10, Urine Bacteria Trace 03/09/24 22:00: Lactate 1.5, Troponin I 0.02 03/09/24 23:50: Troponin I 0.02 03/10/24 05:36: POC Glucose 160 H 03/10/24 06:20: WBC 11.8 H, RBC 3.87 L, Hgb 10.6 L, Hct 33.9 L, MCV 87.6, MCH 27.4, MCHC 31.3 L, RDW 16.1, Plt Count 425 H, MPV 10.0, Neut % (Auto) 73.7, Lymph % (Auto) 7.7 L, [place] % (Auto) 15.3 H, Eos % (Auto) 1.5, Baso % (Auto) 1.2, Neut # (Auto) 8.7 H, Lymph # (Auto) 0.9, [place] # (Auto) 1.8 H, Eos # (Auto) 0.2, Baso # (Auto) 0.1, Sodium 135 L, Potassium 4.0, Chloride 98, Carbon Dioxide 31 H, Anion Gap 10.0, BUN 19 H, Creatinine 0.90, Estimated Creat Clear 45, Estimated GFR 62, Est GFR ( Amer) 75, Glucose 157 H, Hemoglobin A1c 8.3 H, Lactate 1.1, Calcium 8.7, Magnesium 1.7, Total Bilirubin 0.7, AST 25, ALT 15, Alkaline Phosphatase 124, Total Protein 6.9, Albumin 3.4 L D, Globulin 3.5 H, Albumin/Globulin Ratio 1.0 L, TSH 0.79 03/10/24 11:28: POC Glucose 196 H I & O for Last 24 hours: Intake & Output 03/07/24 03/08/24 03/09/24 03/10/24 23:59 23:59 23:59 23:59 Intake Total 286 / 286 Output Total 475 / 1025 1400 / 1400 Balance -475 / -739 -1114 / -1114 Weight 245 lb 245 lb 4.8 oz Microbiology Reports for the Last 24 Hours: Microbiology 03/09/24 16:57 Blood Blood Culture - Preliminary 03/09/24 17:15 Urine,Clean Catch Urine Culture - Preliminary Constitutional Constitutional: morbidly obese *Routine Respiratory Exam Respiratory: Present wheezes and diminished air movement Meds Home Medications and Allergies Home Medications ?Medication ?Instructions ?Recorded ?Confirmed ?Type melatonin 5 mg tablet 5 mg PO HS sleep 09/28/22 03/09/24 History atorvastatin 40 mg tablet 40 mg PO HS #90 tabs 10/18/23 03/10/24 Rx duloxetine 60 mg capsule,delayed 60 mg PO DAILY #90 caps 10/20/23 03/10/24 Rx release metoprolol succinate 25 mg 25 mg PO DAILY #90 tabs 10/20/23 03/09/24 Rx tablet,extended release 24 hr pantoprazole 40 mg tablet,delayed 40 mg PO HS #90 tabs 10/20/23 03/09/24 Rx release spironolactone 25 mg tablet 25 mg PO DAILY #90 tabs 10/20/23 03/09/24 Rx aspirin 81 mg tablet,delayed 81 mg PO DAILY #90 tabs 01/10/24 03/10/24 Rx release bumetanide 1 mg tablet 1 mg PO DAILY #90 tabs 01/10/24 03/10/24 Rx nortriptyline 25 mg capsule 25 mg PO HS #90 caps 01/10/24 03/09/24 Rx ramelteon 8 mg tablet 8 mg PO HS PRN sleep #90 tabs 01/10/24 03/10/24 Rx sacubitril 24 mg-valsartan 26 mg 1 tab PO BID 30 days #180 tabs 01/10/24 03/10/24 Rx tablet (Entresto) sennosides 8.6 mg-docusate sodium 1 tab PO HS Constipation #90 tabs 01/10/24 03/09/24 Rx 50 mg tablet (Senna-S) tirzepatide 5 mg/0.5 mL 5 mg (0.5 mL) SQ WEEKLY #2.5 mL 02/08/24 03/09/24 Rx subcutaneous pen injector (Tere) apixaban 5 mg tablet (Eliquis) 5 mg PO BID atrial fib/ blood 03/10/24 03/10/24 History thinner dapagliflozin propanediol 10 mg 10 mg PO DAILY Diabetes 03/10/24 03/10/24 History tablet famotidine 20 mg tablet 20 mg PO DAILY 03/10/24 03/10/24 History sitagliptin phosphate 50 mg tablet 50 mg PO DAILY 03/10/24 03/10/24 History (Lj) New Prescriptions to Start Prescriptions: Allergies Allergy/AdvReac Type Severity Reaction Status Date / Time levofloxacin Allergy Verified 01/08/24 08:22 meperidine Allergy Verified 01/08/24 08:22 Assessment and Plan *Assessment and plan (1) Acute on chronic right heart failure: Status: Acute Category: Medical Code(s): I50.813 - Acute on chronic right heart failure (2) Sepsis: Status: Acute Qualifiers: Sepsis acute organ dysfunction status: unspecified Sepsis type: sepsis due to unspecified organism Qualified Code(s): A41.9 - Sepsis, unspecified organism Category: Medical Code(s): A41.9 - Sepsis, unspecified organism (3) Abdominal wall cellulitis: Status: Acute Category: Medical Code(s): L03.311 - Cellulitis of abdominal wall (4) Candidal intertrigo: Status: Acute Category: Medical Code(s): B37.2 - Candidiasis of skin and nail (5) Asplenia: Status: Acute Category: Medical Code(s): Q89.01 - Asplenia (congenital) (6) Atrial fibrillation: Status: Acute Qualifiers: Atrial fibrillation type: longstanding persistent Qualified Code(s): I48.11 - Longstanding persistent atrial fibrillation Category: Medical Code(s): I48.91 - Unspecified atrial fibrillation Plan Acute on Chronic RHF, Cor Pulmonale - known dx with ECHO 2022 showing: severe PHTn, Severe, RV dilation/dysfunction, and severe TR - continue diuresis - increase Bumex to TID, her Cr is normal - improve lung function - screeng for MANSI - pt needs aggressive weight loss - consider OP GLP-1 - repeat 2D ECHO here PAF - known dx, rate controlled and asymptomatic here - cont home dose Eliquis and Metoprolol Non-obstructive CAD - per [facility] 2022 - pt denies angina - cont Eliquis, BB, Statin Cellulitis/Sepsis/PNA - per Hospitalist Morbid Obesity, BMI 40 - pt needs aggressive weight loss via diet/exercise, consider OP GLP-1
[2024-03-10] MEDS: VANCOMYCIN/WATER FOR INJ (PEG) 1.75 GM/350 ML PIGGYBACK IV (12:32)
[2024-03-10] MEDS: ACETAMINOPHEN 325MG TAB 650 MG PO (14:47)
[2024-03-10] MEDS: FLUCONAZOLE IN NACL,ISO-OSM 200 MG/100 ML PIGGYBACK IV (14:47)
[2024-03-10 16:00] VITALS: BP 133/68; PULSE 77; PULSE 80; RESP 20; TEMP 36.8; O2SAT 96
[2024-03-10] MEDS: MAGNESIUM SULFATE IN WATER 2 GM/50 ML PIGGYBACK IV ×2 (16:04→17:20)
[2024-03-10] MEDS: IBUPROFEN 400 MG TABLET PO (16:16)
[2024-03-10 16:26] LABS: POC Glucose,Bedside 126 (70-110)
[2024-03-10 20:00] VITALS: BP 126/68; PULSE 70; PULSE 71; RESP 18; TEMP 36.8; O2SAT 90
[2024-03-10 20:44] LABS: POC Glucose,Bedside 238 (70-110)
[2024-03-10] MEDS: CEFTRIAXONE 1 GM 1 GM in 0.9 % SODIUM CHLORIDE 50 ML IV (20:51)
--- NOTE | 2024-03-10 22:24 | EXP.PN ---
Subjective *Date: 03/11/24 *Time: 00:54 Exam Data for Last 24 hours Vital signs and Labs for Last 24 Hours: Temp Pulse Resp BP Pulse Ox O2 Del Method 98.3 F 71 18 126/68 90 L Room Air 03/10/24 20:00 03/10/24 20:00 03/10/24 20:00 03/10/24 20:00 03/10/24 20:00 03/10/24 21:00 Laboratory Results - last 24 hr 03/09/24 16:51: HCV Ab DARION w/Rflx PCR Qn Negative 03/09/24 22:00: Lactate 1.5, Troponin I 0.02 03/09/24 23:50: Troponin I 0.02 03/10/24 05:36: POC Glucose 160 H 03/10/24 06:20: WBC 11.8 H, RBC 3.87 L, Hgb 10.6 L, Hct 33.9 L, MCV 87.6, MCH 27.4, MCHC 31.3 L, RDW 16.1, Plt Count 425 H, MPV 10.0, Neut % (Auto) 73.7, Lymph % (Auto) 7.7 L, [place] % (Auto) 15.3 H, Eos % (Auto) 1.5, Baso % (Auto) 1.2, Neut # (Auto) 8.7 H, Lymph # (Auto) 0.9, [place] # (Auto) 1.8 H, Eos # (Auto) 0.2, Baso # (Auto) 0.1, Sodium 135 L, Potassium 4.0, Chloride 98, Carbon Dioxide 31 H, Anion Gap 10.0, BUN 19 H, Creatinine 0.90, Estimated Creat Clear 45, Estimated GFR 62, Est GFR ( Amer) 75, Glucose 157 H, Hemoglobin A1c 8.3 H, Lactate 1.1, Calcium 8.7, Magnesium 1.7, Total Bilirubin 0.7, AST 25, ALT 15, Alkaline Phosphatase 124, Total Protein 6.9, Albumin 3.4 L D, Globulin 3.5 H, Albumin/Globulin Ratio 1.0 L, TSH 0.79 03/10/24 11:28: POC Glucose 196 H 03/10/24 16:11: POC Glucose 126 H 03/10/24 20:36: POC Glucose 238 H I & O for Last 24 hours: Intake & Output 03/07/24 03/08/24 03/09/24 03/10/24 23:59 23:59 23:59 23:59 Intake Total 706 / 706 Output Total 475 / 1025 3450 / 3450 Balance -475 / -739 -2744 / -2744 Weight 111.13 kg 111.266 kg Microbiology Reports for the Last 24 Hours: Microbiology 03/09/24 16:57 Blood Blood Culture - Preliminary 03/09/24 17:17 Blood Blood Culture - Preliminary NO GROWTH AFTER 24 HOURS 03/09/24 17:15 Urine,Clean Catch Urine Culture - Preliminary Constitutional Constitutional: no acute distress and obese *Routine HEENT Exam Head: Present normocephalic Eye: Present EOMI and PERRL ENT: Present mucous membranes moist *Routine Neck Exam Neck: Present supple; Absent lymphadenopathy *Routine Respiratory Exam Respiratory: Present CTA bilaterally *Routine Cardiovascular Exam Cardiovascular: Present RRR *Routine Abdominal Exam Abdominal: Present soft and normoactive bowel sounds; Absent tenderness Comments: Intertrigo within abdominal pannus *Routine Extremities Exam Extremities: Absent cyanosis, clubbing or edema Comments: Bilateral lower extremity pitting edema 3+. *Routine Skin Exam Skin: Present warm; Absent rash *Routine Neurological Exam Neurological: Present alert and oriented X3 Assessment and Plan *Assessment and plan (1) Acute on chronic right heart failure: Status: Acute Category: Medical Code(s): I50.813 - Acute on chronic right heart failure (2) Sepsis: Status: Acute Qualifiers: Sepsis acute organ dysfunction status: unspecified Sepsis type: sepsis due to unspecified organism Qualified Code(s): A41.9 - Sepsis, unspecified organism Category: Medical Code(s): A41.9 - Sepsis, unspecified organism (3) Abdominal wall cellulitis: Status: Acute Category: Medical Code(s): L03.311 - Cellulitis of abdominal wall (4) Candidal intertrigo: Status: Acute Category: Medical Code(s): B37.2 - Candidiasis of skin and nail (5) Asplenia: Status: Acute Category: Medical Code(s): Q89.01 - Asplenia (congenital) (6) Atrial fibrillation: Status: Acute Qualifiers: Atrial fibrillation type: longstanding persistent Qualified Code(s): I48.11 - Longstanding persistent atrial fibrillation Category: Medical Code(s): I48.91 - Unspecified atrial fibrillation Plan Rica Flannery is a 68-year-old female who presented with abdominal pain and was admitted for acute HFpEF exacerbation and severe intertrigo. #Acute HFpEF exacerbation #History of cor pulmonale ? Initial BNP 10,500 with fluid overload. ? ECHO 2022 showing: severe PHTn, Severe, RV dilation/dysfunction, and severe TR. ? Continue IV Bumex 1 mg TID, diuresing well net -3.1 L so far. ? Continue home metoprolol, spironolactone 25 mg. ? Cardiology consulted, pending further recommendations. Consider SGLT2i once euvolemic. ? Follow-up repeat ECHO. ? Will benefit from outpatient sleep study. #Sepsis #Staph bacteremia #History of asplenia ? Initial WBC 17.1, improved to 11.8. Initially febrile 100.8 Fahrenheit ? 1 out of 2 bottles positive for Staph aureus. ? Continue vancomycin. ? Follow-up repeat blood cultures in the morning. #Severe intertrigo ? Within abdominal pannus. ? Continue topical nystatin powder, mupirocin. ? Started IV fluconazole 200 mg day 1. #Physical deconditioning #Depression ? Patient's about 6 months ago and patient has since been not tending towards. ? PT/OT consulted, recommended SNF placement. Case management assisting with placement. ? Continue home duloxetine 60 mg daily, nortriptyline 25 mg daily. Will benefit from outpatient therapy. Chronic medical problems: #Paroxysmal A-fib ? Currently rate controlled. ? Continue home metoprolol succinate 25 mg, Eliquis 5 mg twice daily. #CAD ? Continue home aspirin, statin. DNR/DNI DVT prophylaxis: Eliquis
[2024-03-11] VITALS (9 sets, daily range): BP systolic 102–145; BP diastolic 50–80; PULSE 67–80; RESP 15–25; TEMP 36.4–37.6; O2SAT 86–100; BMI 40.3; BMI 40.2; BMI 40.0
--- NOTE | 2024-03-11 04:18 | PC.NURSE ---
68 yo fe pt is A/O X 3. She denies pain or SOA this shift. Noted excoriation under abdomen, groin and under breasts, medicated per MAR. Pt has not been OOB this shift, voiding per [place]. While sleeping, noted pts sats down to 90% on RA. 02 placed at 2 liters/nc. Edema to BUE and BLE. FSBS 238 at 9pm, SS insulin per MAR VSS for pt. 02 sats at 93 % with 02 at 2 liters.
[2024-03-11] MEDS: BUMETANIDE 1MG/4ML VIAL 1 MG IV ×3 (04:28→21:24)
[2024-03-11] MEDS: VANCOMYCIN/WATER FOR INJ (PEG) 1.75 GM/350 ML PIGGYBACK IV (06:15)
[2024-03-11 06:30] LABS: POC Glucose,Bedside 96 (70-110)
[2024-03-11] MEDS: METOPROLOL SUCCINATE XL 25MG TABLET 25 MG PO (08:24)
[2024-03-11] MEDS: SACUBITRIL/VALSARTAN 24-26MG TABLET 1 EACH PO ×2 (08:24→21:26)
[2024-03-11] MEDS: APIXABAN 5MG TABLET 5 MG PO ×2 (08:24→21:24)
[2024-03-11] MEDS: NYSTATIN TOPICAL POWDER 30GM TP ×4 (08:24→21:25)
[2024-03-11] MEDS: ASPIRIN EC 81MG TABLET 81 MG PO (08:24)
[2024-03-11] MEDS: DULOXETINE 30MG CAPSULE.DR 60 MG PO (08:24)
[2024-03-11] MEDS: DOCUSATE SODIUM 100 MG CAPSULE PO (08:24)
[2024-03-11] MEDS: PANTOPRAZOLE 40MG TABLET 40 MG PO ×2 (08:24→21:26)
[2024-03-11] MEDS: SPIRONOLACTONE 25MG TABLET 25 MG PO (08:24)
[2024-03-11] MEDS: MUPIROCIN 2% OINTMENT 22GM TUBE TP ×2 (08:24→21:25)
--- NOTE | 2024-03-11 09:15 | XR_ITS ---
FINAL REPORT CLINICAL HISTORY: CHF, COPD COMPARISON: 03/09/2024 FINDINGS: SINGLE VIEW CHEST The heart is in the upper limits of normal in size. The mediastinum is unremarkable. The lungs are underinflated. There are chronic changes in the lung bases. There is no pneumothorax. IMPRESSION: No acute process. Reviewed, Interpreted and Dictated by Zac Walsh MD Transcribed by Isabel Colón Authenticated and [facility]
[2024-03-11 09:38] LABS: NT Pro Brain Natriuretic Pep. 9320 pg/mL (0-125)
[2024-03-11] MEDS: humaLOG 100 UNITS/ML 10ML VIAL (SSI) SUBCUT (11:09)
[2024-03-11 11:13] LABS: POC Glucose,Bedside 227 (70-110)
[2024-03-11 11:22] LABS: Alanine Aminotransferase 17 U/L (12-78); Albumin Level 3.5 g/dl (3.5-5.0); Albumin/Globulin Ratio 0.9 (1.1-1.8); Alkaline Phosphatase 115 U/L (38-126); Aspartate Amino Transferase 46 U/L (14-36); Bilirubin,Total 0.5 mg/dl (0.2-1.3); Blood Urea Nitrogen 33 mg/dl (7-17); Calcium 8.2 mg/dl (8.4-10.2); Carbon Dioxide 27 mmol/L (22.0-30.0); Chloride 95 mmol/L (98-107); Creatinine Clearance Estimated 35 mL/min (50-200); Estimated Glomerular Filt Rate 40 ml/min (>60); GFR (African American) 49 ML/MIN (>60); Globulin 3.8 g/dL (1.3-3.2); Glucose 108 mg/dl (74-100); Magnesium 2.4 mg/dl (1.6-2.3); Sodium 133 mmol/L (136-145); Total Protein,Serum 7.3 g/dl (6.3-8.2)
--- NOTE | 2024-03-11 12:21 | EXP.CARD.PN ---
Subjective Subjective Date: 03/11/24 Time: 09:30 Principal diagnosis: RHF, cellulitis Interval history: No events overnight. She has diuresed 2.3L and feels she is back to her baseline/dry weight. Urine is pos for gram neg rods. Awaiting placement with [facility]. Exam Data for Last 24 hours Vital signs and Labs for Last 24 Hours: Temp Pulse Resp BP Pulse Ox O2 Del Method O2 Flow Rate 97.9 F 73 20 130/73 100 Nasal Cannula 2 03/11/24 11:59 03/11/24 11:59 03/11/24 11:59 03/11/24 11:59 03/11/24 11:59 03/11/24 11:59 03/11/24 11:59 Laboratory Results - last 24 hr 03/09/24 17:15: Urine Color Yellow, Urine Appearance Clear, Urine pH 6.0, Ur Specific [place] 1.015, Urine Protein Trace, Urine Glucose (UA) 3+, Urine Ketones Negative, Urine Blood 1+ A, Urine Nitrate Negative, Urine Bilirubin Negative, Urine Urobilinogen 0.2, Ur Leukocyte Esterase Trace, Urine RBC Occasional, Urine WBC 10-20, Ur Squamous Epith Cells 5-10, Urine Bacteria Trace 03/10/24 16:11: POC Glucose 126 H 03/10/24 20:36: POC Glucose 238 H 03/11/24 05:30: Sodium 133 L, Potassium 4.0, Chloride 95 L, Carbon Dioxide 27, Anion Gap 15.0, BUN 33 H D, Creatinine 1.30 H D, Estimated Creat Clear 35, Estimated GFR 40 L, Est GFR ( Amer) 49 L D, Glucose 108 H D, Calcium 8.2 L, Magnesium 2.4 H D, Total Bilirubin 0.5, AST 46 H D, ALT 17, Alkaline Phosphatase 115, NT-Pro-B Natriuret Pep 9320 H, Total Protein 7.3, Albumin 3.5, Globulin 3.8 H, Albumin/Globulin Ratio 0.9 L 03/11/24 06:14: POC Glucose 96 03/11/24 11:03: POC Glucose 227 H I & O for Last 24 hours: Intake & Output 03/08/24 03/09/24 03/10/24 03/11/24 23:59 23:59 23:59 23:59 Intake Total 706 / 806 900 / 900 Output Total 475 / 1025 3450 / 3450 800 / 800 Balance -475 / -739 -2744 / -2644 100 / 100 Weight 245 lb 245 lb 4.8 oz 241 lb 6.4 oz Microbiology Reports for the Last 24 Hours: Microbiology 03/09/24 16:57 Blood Blood Culture - Preliminary 03/09/24 17:15 Urine,Clean Catch Urine Culture - Preliminary Gram Negative Rods 03/09/24 17:17 Blood Blood Culture - Preliminary NO GROWTH AFTER 24 HOURS Constitutional Constitutional: no acute distress and cooperative *Routine HEENT Exam Eye: Present PERRL *Routine Respiratory Exam Respiratory: Present CTA bilaterally; Absent accessory muscle use, wheezes or crackles *Routine Cardiovascular Exam Cardiovascular: Present RRR, Normal S1 and Normal S2; Absent murmur, gallop or rubs *Routine Abdominal Exam Abdominal: Present soft; Absent tenderness *Routine Extremities Exam Extremities: Present pulses intact; Absent cyanosis or edema Comments: trace BLE toes are purple and cold bilaterally - pt comments normal' when she's cold. Significant vericose veins noted. *Routine Skin Exam Skin: Present intact; Absent erythema or wounds *Routine Neurological Exam Neurological: Present alert and oriented X3 Routine Psychiatric Exam Psychiatric: Present cooperative Progress Note: A&P Assessment and plan (1) Acute on chronic right heart failure: Status: Acute (2) Sepsis: Status: Acute (3) Abdominal wall cellulitis: Status: Acute (4) Candidal intertrigo: Status: Acute (5) Asplenia: Status: Acute (6) Atrial fibrillation: Status: Acute Assessment and Plan Assessment and Plan for All Diagnoses:: Acute on Chronic RHF, Cor Pulmonale - known dx with ECHO 2022 showing: severe PHTn, Severe, RV dilation/dysfunction, and severe TR - continue diuresis - increase Bumex to TID, her Cr is normal - improve lung function - screeng for MANSI - pt needs aggressive weight loss - consider OP GLP-1 - repeat 2D ECHO here pending PAF - known dx, rate controlled and asymptomatic here - cont home dose Eliquis and Metoprolol Non-obstructive CAD - per [facility] 2022 - pt denies angina - cont Eliquis, BB, Statin Cellulitis/Sepsis/PNA/UTI - per Hospitalist Morbid Obesity, BMI 40 - pt needs aggressive weight loss via diet/exercise, consider OP GLP-1 Lower Extremity Color Change - check bilateral KENDRA
--- NOTE | 2024-03-11 12:28 | US_ITS ---
FINAL REPORT CLINICAL HISTORY: BLE discoloration,HTN,OBESITY COMPARISON: None FINDINGS: ANKLE-BRACHIAL PRESSURE INDICES Pressure indices are as follows: RIGHT LOWER EXTREMITY: Ankle-brachial pressure index: 1. 1 Comments: Normal LEFT LOWER EXTREMITY: Ankle-brachial pressure index: 1.06 Comments: Normal CONCLUSION: No evidence of significant obstructive peripheral vascular disease of the lower extremities Reviewed, Interpreted and Dictated by Zac Walsh MD Transcribed by Zoya Reyes Authenticated and [facility]
[2024-03-11] MEDS: FLUCONAZOLE IN NACL,ISO-OSM 200 MG/100 ML PIGGYBACK IV (13:41)
[2024-03-11 16:57] LABS: POC Glucose,Bedside 115 (70-110)
--- NOTE | 2024-03-11 17:05 | PC.NURSE ---
pt a&ox4. resting in bed watching television at this time. tolerating 2LNC with sats 96-99%. RA sat this shift was 86%. excoriation in the groin/ abdominal fold area, as well as under both breasts. powder and cream applied per apr. edema noted to all extremities. PT/OT evaluated pt this afternoon and assisted pt to chair with standby assistance. pt remains a fib on tele. fsbs @ 11 was 227 and @ 4 was 115. 227 bs was treated with ss insulin. pt has had a large amount of output via [employer] this shift, see i&o. tolerating diet well. no complaints of pain or SOA this shift. no needs at this time. call light within reach.
--- NOTE | 2024-03-11 18:05 | EXP.ACUTE.PN ---
Subjective *Date: 03/11/24 *Time: 18:05 Interval history: Patient feeling well this morning. On 2 L nasal cannula however denies significant shortness of breath. Negative volume status since admission. Tolerating p.o. intake. Denies any chest pain. Medical Exam Vital signs and Labs for Last 24 Hours: Vital Signs Temp Pulse Pulse Resp BP Pulse Ox O2 Del Method 03/11/24 16:54 Nasal Cannula 03/11/24 16:00 70 03/11/24 15:42 99.5 F 71 15 129/63 99 Nasal Cannula 03/11/24 15:00 Nasal Cannula 03/11/24 13:00 Nasal Cannula 03/11/24 12:00 80 03/11/24 11:59 97.9 F 73 20 130/73 100 Nasal Cannula 03/11/24 11:14 86 L Room Air 03/11/24 11:00 Nasal Cannula 03/11/24 09:00 Nasal Cannula 03/11/24 08:00 80 03/11/24 08:00 75 93 L Nasal Cannula 03/11/24 08:00 98.2 F 79 21 145/80 H 96 Nasal Cannula 03/11/24 07:00 Nasal Cannula 03/11/24 05:00 Nasal Cannula 03/11/24 04:00 97.6 F 77 16 133/67 98 Nasal Cannula 03/11/24 04:00 70 03/11/24 03:00 Nasal Cannula 03/11/24 01:00 Nasal Cannula 03/11/24 00:00 97.5 F L 67 16 128/67 93 L Nasal Cannula 03/11/24 00:00 75 03/10/24 23:00 Nasal Cannula 03/10/24 21:00 Room Air 03/10/24 20:00 70 03/10/24 20:00 90 L Room Air 03/10/24 20:00 98.3 F 71 18 126/68 90 L Room Air O2 Flow Rate 03/11/24 16:54 2 03/11/24 16:00 03/11/24 15:42 2 03/11/24 15:00 2 03/11/24 13:00 2 03/11/24 12:00 03/11/24 11:59 2 03/11/24 11:14 03/11/24 11:00 2 03/11/24 09:00 2 03/11/24 08:00 03/11/24 08:00 2 03/11/24 08:00 2 03/11/24 07:00 2 03/11/24 05:00 2 03/11/24 04:00 2 03/11/24 04:00 03/11/24 03:00 2 03/11/24 01:00 2 03/11/24 00:00 2 03/11/24 00:00 03/10/24 23:00 2 03/10/24 21:00 03/10/24 20:00 03/10/24 20:00 03/10/24 20:00 Intake and Output 03/11/24 03/11/24 03/11/24 07:59 15:59 23:59 Intake Total 100 / 1140 1040 / 1140 Output Total 1800 / 2800 1000 / 2800 Balance 100 / -1660 -760 / -1660 -1000 / -1660 Intake: Intake, Oral Amount 700 / 700 Intake, Total IV Amount 100 / 440 340 / 440 Ceftriaxone 1 gm 1 gm In 0.9 % 100 / 100 Sodium Chloride 50 ml @ 100 mls /hr IV Q24H [facility] Rx#:[id number] Vancomycin/Water For Inj (Peg) 340 / 340 1.75 gm In 350 ml @ 175 mls/hr IV Q18H [facility] Rx#:[id number] Output: Output, Urine Amount 1800 / 2800 1000 / 2800 Other: Number of Unmeasured Voids 0 Weight 109.815 kg 109 kg Patient Weight 03/11/24 23:59 Weight 109 kg Laboratory Results - last 24 hr 03/09/24 17:15: Urine Color Yellow, Urine Appearance Clear, Urine pH 6.0, Ur Specific [place] 1.015, Urine Protein Trace, Urine Glucose (UA) 3+, Urine Ketones Negative, Urine Blood 1+ A, Urine Nitrate Negative, Urine Bilirubin Negative, Urine Urobilinogen 0.2, Ur Leukocyte Esterase Trace, Urine RBC Occasional, Urine WBC 10-20, Ur Squamous Epith Cells 5-10, Urine Bacteria Trace 03/10/24 20:36: POC Glucose 238 H 03/11/24 05:30: Sodium 133 L, Potassium 4.0, Chloride 95 L, Carbon Dioxide 27, Anion Gap 15.0, BUN 33 H D, Creatinine 1.30 H D, Estimated Creat Clear 35, Estimated GFR 40 L, Est GFR ( Amer) 49 L D, Glucose 108 H D, Calcium 8.2 L, Magnesium 2.4 H D, Total Bilirubin 0.5, AST 46 H D, ALT 17, Alkaline Phosphatase 115, NT-Pro-B Natriuret Pep 9320 H, Total Protein 7.3, Albumin 3.5, Globulin 3.8 H, Albumin/Globulin Ratio 0.9 L 03/11/24 06:14: POC Glucose 96 03/11/24 11:03: POC Glucose 227 H 03/11/24 16:50: POC Glucose 115 H I & O for Labs for Last 24 Hours: Intake & Output 03/08/24 03/09/24 03/10/24 03/11/24 23:59 23:59 23:59 23:59 Intake Total 706 / 806 1140 / 1140 Output Total 475 / 1025 3450 / 3450 2800 / 2800 Balance -475 / -739 -2744 / -2644 -1660 / -1660 Weight 111.13 kg 111.266 kg 109 kg Microbiology Reports for the Last 24 Hours: Microbiology 03/09/24 17:17 Blood Blood Culture - Preliminary NO GROWTH AFTER 48 HOURS 03/09/24 16:57 Blood Blood Culture - Preliminary 03/09/24 17:15 Urine,Clean Catch Urine Culture - Preliminary Gram Negative Rods Constitutional: Present no acute distress, morbidly obese and chronically ill appearing Head: Present atraumatic and normocephalic ENT: Present normal exam Neck: Present normal inspection Respiratory: Present distant breath sounds and diminished air movement; Absent rhonchi, wheezes or crackles Cardiac: Present Reg Rate and Rhythm GI: Present soft and normal bowel sounds; Absent distention or tenderness Extremities: Present normal inspection and full ROM; Absent edema (Bilateral stasis dermatitis) Skin: Present intact, erythema and wounds Comment:: Intertrigo in skin folds of abdomen Neuro: Present Grossly Intact, alert, awake, oriented x 3 and moves all extremities Assessment and Plan *Assessment and plan (1) Acute on chronic right heart failure: Status: Acute Category: Medical Code(s): I50.813 - Acute on chronic right heart failure (2) Sepsis: Status: Acute Qualifiers: Sepsis acute organ dysfunction status: unspecified Sepsis type: sepsis due to unspecified organism Qualified Code(s): A41.9 - Sepsis, unspecified organism Category: Medical Code(s): A41.9 - Sepsis, unspecified organism (3) Abdominal wall cellulitis: Status: Acute Category: Medical Code(s): L03.311 - Cellulitis of abdominal wall (4) Candidal intertrigo: Status: Acute Category: Medical Code(s): B37.2 - Candidiasis of skin and nail (5) Asplenia: Status: Acute Category: Medical Code(s): Q89.01 - Asplenia (congenital) (6) Atrial fibrillation: Status: Acute Qualifiers: Atrial fibrillation type: longstanding persistent Qualified Code(s): I48.11 - Longstanding persistent atrial fibrillation Category: Medical Code(s): I48.91 - Unspecified atrial fibrillation (7) Diabetes mellitus type 2 in obese: Status: Chronic Category: Medical Code(s): E11.69 - Type 2 diabetes mellitus with other specified complication; E66.9 - Obesity, unspecified (8) Obesity: Status: Acute Qualifiers: Obesity type: due to excess calories Obesity classification: adult class 1 (BMI 30 - 34.9) Serious obesity comorbidity presence: with serious comorbidity Body mass index: BMI 31.0-31.9 Qualified Code(s): E66.09 - Other obesity due to excess calories; Z68.31 - Body mass index [BMI] 31.0-31.9, adult Category: Medical Code(s): E66.9 - Obesity, unspecified (9) Pulmonary hypertension: Status: Chronic Category: Medical Code(s): I27.20 - Pulmonary hypertension, unspecified (10) Cor pulmonale: Status: Acute Category: Medical Code(s): I27.81 - Cor pulmonale (chronic) Nay Flannery is a 68-year-old female who presented with abdominal pain and was admitted for acute HFpEF exacerbation and severe intertrigo. Responding to diuresis. Weaning oxygen. Excepted to [facility] for placement, continues to require patient management however. Anticipate discharge in the next day or 2. Problems addressed as follows: #Acute on chronic HFpEF exacerbation #Cor pulmonale ? Initial BNP 10,500 with fluid overload. Improved 9300 this morning. ? ECHO 2022 showing: severe PHTn, Severe, RV dilation/dysfunction, and severe TR. ? Continue IV Bumex 1 mg TID, diuresing well net neg 4+ L so far. ? Continue home metoprolol, spironolactone 25 mg. ? Cardiology consulted, pending further recommendations. Consider SGLT2i once euvolemic. ? Follow-up repeat ECHO. ? Will benefit from outpatient sleep study. - Chemistry improved with BUN 33, creatinine 1.3, calcium 8.2, magnesium 2.4, potassium 4.0. #Sepsis #Staph bacteremia #History of asplenia Urinary tract infection ? Initial WBC 17.1, improved to 11.8. Initially febrile 100.8 Fahrenheit; white count ? 1 out of 2 bottles positive for Staph aureus, suspicious for contaminant. Continue vancomycin empirically for now, will reevaluate antibiotics prior to discharge. ? Follow-up repeat blood cultures in the morning. - Repeat CBC, CMP, magnesium ordered for the morning -Urine culture growing gram-negative rods, Continue ceftriaxone 1 g daily #Severe intertrigo ? Within abdominal pannus. ? Continue topical nystatin powder, mupirocin. ? Started IV fluconazole 100mg daily #Physical deconditioning #Depression ? Patient's about 6 months ago and patient has since been not tending towards. ? PT/OT consulted, recommended SNF placement. Accepted to [facility], will discharge in the coming days ? Continue home duloxetine 60 mg daily, nortriptyline 25 mg daily. Wouldl benefit from outpatient therapy. Chronic medical problems: #Paroxysmal A-fib: Currently rate controlled. Continue home metoprolol succinate 25 mg, Eliquis 5 mg twice daily. #CAD: Continue home aspirin, statin. Morbid obesity complicates all aspects of her care DNR/DNI DVT prophylaxis: Eliquis diabetic diet
[2024-03-11 20:30] LABS: POC Glucose,Bedside 136 (70-110)
[2024-03-11] MEDS: CEFTRIAXONE 1 GM 1 GM in 0.9 % SODIUM CHLORIDE 50 ML IV (21:23)
[2024-03-11] MEDS: ACETAMINOPHEN 325MG TAB 650 MG PO (21:23)
[2024-03-11] MEDS: ATORVASTATIN 40MG TABLET 40 MG PO (21:24)
[2024-03-12] VITALS: PULSE 70
[2024-03-12] MEDS: VANCOMYCIN/WATER FOR INJ (PEG) 1.75 GM/350 ML PIGGYBACK IV (00:40)
[2024-03-12 01:26] LABS: Vancomycin,Trough 17.2 ug/mL (5.0-10.0)
[2024-03-12 04:00] VITALS: BP 96/55; PULSE 59; PULSE 62; RESP 16; TEMP 36.4; O2SAT 97; BMI 40.4
--- NOTE | 2024-03-12 04:30 | PC.NURSE ---
68 yo fe pt is A/O X 3. She has denied pain, discomfort or SOA this shift. 02 remains on at 2 liters / nc. Noted excoriation under abdomen, groin and under breasts, Improved from last shift. medicated with nystatin and mupirocin per APR. Pt has not been OOB this shift, voiding per [place] adeq amounts FSBS 136 at 9pm, VSS for pt. 02 sats at 96 % with 02 at 2 liters. Pt in Afib per tele.
[2024-03-12] MEDS: BUMETANIDE 1MG/4ML VIAL 1 MG IV (05:16)
[2024-03-12 06:10] LABS: POC Glucose,Bedside 112 (70-110)
[2024-03-12 06:53] LABS: Basophils # 0.1 K/mm3 (0-0.2); Basophils % 1.2 % (0.1-2.0); Eosinophils # 0.6 K/mm3 (0.0-0.4); Eosinophils % 4.9 % (0.1-12.0); Hematocrit 34.4 % (37.0-47.0); Hemoglobin 10.4 g/dL (12.2-16.2); Lymphocytes # 1.7 K/mm3 (0.7-4.5); Lymphocytes % 15.5 % (10-50); Mean Corpuscular HGB Conc 30.2 g/dL (31.8-35.4); Mean Corpuscular Hemoglobin 26.5 pg (27.0-31.2); Mean Corpuscular Volume 87.5 fl (81-99); Mean Platelet Volume 10.4 fl (7.4-10.4); Monocytes # 2.1 K/mm3 (0.1-1.0); Monocytes % 18.3 % (1.7-9.3); Neutrophils # 6.7 K/mm3 (1.8-7.8); Neutrophils % 59.4 % (37.0-80.0); Platelet Count 416 K/mm3 (142-424); Red Blood Count 3.93 M/mm3 (4.20-5.40); Red Cell Distribution Width 16.2 % (11.5-17.5); White Blood Count 11.2 K/mm3 (4.8-10.8)
[2024-03-12 07:05] LABS: Alanine Aminotransferase 14 U/L (12-78); Albumin/Globulin Ratio 0.9 (1.1-1.8); Alkaline Phosphatase 122 U/L (38-126); Anion Gap 9.7 mEq/L (5-15); Aspartate Amino Transferase 27 U/L (14-36); Bilirubin,Total 0.2 mg/dl (0.2-1.3); Blood Urea Nitrogen 34 mg/dl (7-17); Calcium 8.2 mg/dl (8.4-10.2); Carbon Dioxide 33 mmol/L (22.0-30.0); Chloride 95 mmol/L (98-107); Creatinine Clearance Estimated 45 mL/min (50-200); Estimated Glomerular Filt Rate 55 ml/min (>60); GFR (African American) 66 ML/MIN (>60); Globulin 3.3 g/dL (1.3-3.2); Glucose 99 mg/dl (74-100); Magnesium 1.9 mg/dl (1.6-2.3); Potassium 3.7 mmoL/L (3.5-5.1); Sodium 134 mmol/L (136-145); Total Protein,Serum 6.3 g/dl (6.3-8.2)
[2024-03-12 07:27] LABS: Vancomycin,Peak 37.3 ug/ml (11-39)
[2024-03-12 08:00] VITALS: BP 111/59; PULSE 60; PULSE 69; RESP 20; TEMP 36.7; O2SAT 95
[2024-03-12] MEDS: SPIRONOLACTONE 25MG TABLET 25 MG PO (09:17)
[2024-03-12] MEDS: ASPIRIN EC 81MG TABLET 81 MG PO (09:17)
[2024-03-12] MEDS: APIXABAN 5MG TABLET 5 MG PO (09:17)
[2024-03-12] MEDS: METOPROLOL SUCCINATE XL 25MG TABLET 25 MG PO (09:17)
[2024-03-12] MEDS: DOCUSATE SODIUM 100 MG CAPSULE PO (09:17)
[2024-03-12] MEDS: SACUBITRIL/VALSARTAN 24-26MG TABLET 1 EACH PO (09:17)
[2024-03-12] MEDS: NYSTATIN TOPICAL POWDER 30GM TP (09:17)
[2024-03-12] MEDS: DULOXETINE 30MG CAPSULE.DR 60 MG PO (09:17)
[2024-03-12] MEDS: MUPIROCIN 2% OINTMENT 22GM TUBE TP (09:18)
[2024-03-12] MEDS: MAGNESIUM SULFATE IN WATER 2 GM/50 ML PIGGYBACK IV (09:18)
--- NOTE | 2024-03-12 09:20 | P.PN_ITS ---
Subjective *Date: 03/12/24 *Time: 09:20 Medical Exam Vital signs and Labs for Last 24 Hours: Vital Signs Temp Pulse Pulse Resp BP Pulse Ox O2 Del Method 03/12/24 08:00 98.1 F 69 20 111/59 L 95 Nasal Cannula 03/12/24 08:00 60 03/12/24 06:49 Nasal Cannula 03/12/24 05:00 Nasal Cannula 03/12/24 04:00 97.6 F 62 16 96/55 L 97 Nasal Cannula 03/12/24 04:00 59 L 03/12/24 03:00 Nasal Cannula 03/12/24 01:00 Nasal Cannula 03/12/24 00:00 70 03/11/24 23:00 Nasal Cannula 03/11/24 21:00 Nasal Cannula 03/11/24 20:00 77 03/11/24 20:00 99.7 F H 67 25 H 102/50 L 96 03/11/24 20:00 96 Nasal Cannula 03/11/24 18:45 Nasal Cannula 03/11/24 16:54 Nasal Cannula 03/11/24 16:00 70 03/11/24 15:42 99.5 F 71 15 129/63 99 Nasal Cannula 03/11/24 15:00 Nasal Cannula 03/11/24 13:00 Nasal Cannula 03/11/24 12:00 80 03/11/24 11:59 97.9 F 73 20 130/73 100 Nasal Cannula 03/11/24 11:14 86 L Room Air 03/11/24 11:00 Nasal Cannula O2 Flow Rate 03/12/24 08:00 2 03/12/24 08:00 03/12/24 06:49 2 03/12/24 05:00 2 03/12/24 04:00 2 03/12/24 04:00 03/12/24 03:00 2 03/12/24 01:00 2 03/12/24 00:00 03/11/24 23:00 2 03/11/24 21:00 2 03/11/24 20:00 03/11/24 20:00 2 03/11/24 20:00 2 03/11/24 18:45 2 03/11/24 16:54 2 03/11/24 16:00 03/11/24 15:42 2 03/11/24 15:00 2 03/11/24 13:00 2 03/11/24 12:00 03/11/24 11:59 2 03/11/24 11:14 03/11/24 11:00 2 Intake and Output 03/11/24 03/12/24 03/12/24 23:59 07:59 15:59 Intake Total 360 / 1600 100 / 640 540 / 640 Output Total 1000 / 2800 1200 / 1200 0 / 1200 Balance -640 / -1200 -1100 / -560 540 / -560 Intake: Intake, Oral Amount 360 / 1060 540 / 540 Intake, Total IV Amount 100 / 100 Ceftriaxone 1 gm 1 gm In 0.9 % 100 / 100 Sodium Chloride 50 ml @ 100 mls /hr IV Q24H [facility] Rx#:[id number] Output: Output, Urine Amount 1000 / 2800 1200 / 1200 0 / 1200 Other: Number of Unmeasured Voids 0 0 0 Weight 109.996 kg Patient Weight 03/12/24 23:59 Weight 109.996 kg Laboratory Results - last 24 hr 03/09/24 17:15: Urine Color Yellow, Urine Appearance Clear, Urine pH 6.0, Ur Specific [place] 1.015, Urine Protein Trace, Urine Glucose (UA) 3+, Urine Ketones Negative, Urine Blood 1+ A, Urine Nitrate Negative, Urine Bilirubin Negative, Urine Urobilinogen 0.2, Ur Leukocyte Esterase Trace, Urine RBC Occasional, Urine WBC 10-20, Ur Squamous Epith Cells 5-10, Urine Bacteria Trace 03/11/24 05:30: Sodium 133 L, Potassium 4.0, Chloride 95 L, Carbon Dioxide 27, Anion Gap 15.0, BUN 33 H D, Creatinine 1.30 H D, Estimated Creat Clear 35, Estimated GFR 40 L, Est GFR ( Amer) 49 L D, Glucose 108 H D, Calcium 8.2 L, Magnesium 2.4 H D, Total Bilirubin 0.5, AST 46 H D, ALT 17, Alkaline Phosphatase 115, NT-Pro-B Natriuret Pep 9320 H, Total Protein 7.3, Albumin 3.5, Globulin 3.8 H, Albumin/Globulin Ratio 0.9 L 03/11/24 11:03: POC Glucose 227 H 03/11/24 16:50: POC Glucose 115 H 03/11/24 20:17: POC Glucose 136 H 03/12/24 00:11: Vancomycin Trough 17.2 H 03/12/24 05:15: POC Glucose 112 H 03/12/24 05:40: WBC 11.2 H, RBC 3.93 L, Hgb 10.4 L, Hct 34.4 L, MCV 87.5, MCH 26.5 L, MCHC 30.2 L, RDW 16.2, Plt Count 416, MPV 10.4, Neut % (Auto) 59.4, Lymph % (Auto) 15.5, [place] % (Auto) 18.3 H, Eos % (Auto) 4.9, Baso % (Auto) 1.2, Neut # (Auto) 6.7, Lymph # (Auto) 1.7, [place] # (Auto) 2.1 H, Eos # (Auto) 0.6 H, Baso # (Auto) 0.1, Sodium 134 L, Potassium 3.7, Chloride 95 L, Carbon Dioxide 33 H, Anion Gap 9.7, BUN 34 H, Creatinine 1.00 D, Estimated Creat Clear 45, Estimated GFR 55 L, Est GFR ( Amer) 66 D, Glucose 99, Calcium 8.2 L, Magnesium 1.9 D, Total Bilirubin 0.2, AST 27 D, ALT 14, Alkaline Phosphatase 122, Total Protein 6.3, Albumin 3.0 L D, Globulin 3.3 H, Albumin/Globulin Ratio 0.9 L, Vancomycin Peak 37.3 I & O for Labs for Last 24 Hours: Intake & Output 03/09/24 03/10/24 03/11/24 03/12/24 23:59 23:59 23:59 23:59 Intake Total 706 / 806 1500 / 1600 640 / 640 Output Total 475 / 1025 3450 / 3450 2800 / 2800 1200 / 1200 Balance -475 / -739 -2744 / -2644 -1300 / -1200 -560 / -560 Weight 111.13 kg 111.266 kg 109 kg 109.996 kg Microbiology Reports for the Last 24 Hours: Microbiology 03/09/24 17:15 Urine,Clean Catch Urine Culture - Preliminary Escherichia coli 03/09/24 16:57 Blood Blood Culture - Final Staphylococcus aureus 03/11/24 05:37 Blood Blood Culture - Preliminary NO GROWTH AFTER 24 HOURS 03/11/24 05:37 Blood Blood Culture - Preliminary NO GROWTH AFTER 24 HOURS 03/09/24 17:17 Blood Blood Culture - Preliminary NO GROWTH AFTER 48 HOURS The patient's infection will respond to the chosen ABx?: Yes Is the patient receiving the right drug, dose, and route?: Yes Could a more targeted ABx be ordered?: No
--- NOTE | 2024-03-12 09:30 | EXP.PHA.CONS ---
Pharmacy Consult Date: 03/12/24 Time: 09:30 Referring provider: DR. GARCIA Reason for Consult:: VANCOMYCIN PEAK/TROUGH LEVELS Allergies Allergy/AdvReac Type Severity Reaction Status Date / Time levofloxacin Allergy Verified 01/08/24 08:22 meperidine Allergy Verified 01/08/24 08:22 Home Medications ?Medication ?Instructions ?Recorded ?Confirmed ?Type melatonin 5 mg tablet 5 mg PO HS sleep 09/28/22 03/09/24 History atorvastatin 40 mg tablet 40 mg PO HS #90 tabs 10/18/23 03/10/24 Rx duloxetine 60 mg capsule,delayed 60 mg PO DAILY #90 caps 10/20/23 03/10/24 Rx release metoprolol succinate 25 mg 25 mg PO DAILY #90 tabs 10/20/23 03/09/24 Rx tablet,extended release 24 hr pantoprazole 40 mg tablet,delayed 40 mg PO HS #90 tabs 10/20/23 03/09/24 Rx release spironolactone 25 mg tablet 25 mg PO DAILY #90 tabs 10/20/23 03/09/24 Rx aspirin 81 mg tablet,delayed 81 mg PO DAILY #90 tabs 01/10/24 03/10/24 Rx release bumetanide 1 mg tablet 1 mg PO DAILY #90 tabs 01/10/24 03/10/24 Rx nortriptyline 25 mg capsule 25 mg PO HS #90 caps 01/10/24 03/09/24 Rx ramelteon 8 mg tablet 8 mg PO HS PRN sleep #90 tabs 01/10/24 03/10/24 Rx sacubitril 24 mg-valsartan 26 mg 1 tab PO BID 30 days #180 tabs 01/10/24 03/10/24 Rx tablet (Entresto) sennosides 8.6 mg-docusate sodium 1 tab PO HS Constipation #90 tabs 01/10/24 03/09/24 Rx 50 mg tablet (Senna-S) tirzepatide 5 mg/0.5 mL 5 mg (0.5 mL) SQ WEEKLY #2.5 mL 02/08/24 03/09/24 Rx subcutaneous pen injector (Mounjaro) apixaban 5 mg tablet (Eliquis) 5 mg PO BID atrial fib/ blood 03/10/24 03/10/24 History thinner dapagliflozin propanediol 10 mg 10 mg PO DAILY Diabetes 03/10/24 03/10/24 History tablet famotidine 20 mg tablet 20 mg PO DAILY 03/10/24 03/10/24 History sitagliptin phosphate 50 mg tablet 50 mg PO DAILY 03/10/24 03/10/24 History (Lj) New Prescriptions to Start Prescriptions: Height: 1.65 m Weight: 109.996 kg Laboratory Results:: Laboratory Results - last 24 hr 03/09/24 17:15: Urine Color Yellow, Urine Appearance Clear, Urine pH 6.0, Ur Specific [place] 1.015, Urine Protein Trace, Urine Glucose (UA) 3+, Urine Ketones Negative, Urine Blood 1+ A, Urine Nitrate Negative, Urine Bilirubin Negative, Urine Urobilinogen 0.2, Ur Leukocyte Esterase Trace, Urine RBC Occasional, Urine WBC 10-20, Ur Squamous Epith Cells 5-10, Urine Bacteria Trace 03/11/24 05:30: Sodium 133 L, Potassium 4.0, Chloride 95 L, Carbon Dioxide 27, Anion Gap 15.0, BUN 33 H D, Creatinine 1.30 H D, Estimated Creat Clear 35, Estimated GFR 40 L, Est GFR ( Amer) 49 L D, Glucose 108 H D, Calcium 8.2 L, Magnesium 2.4 H D, Total Bilirubin 0.5, AST 46 H D, ALT 17, Alkaline Phosphatase 115, NT-Pro-B Natriuret Pep 9320 H, Total Protein 7.3, Albumin 3.5, Globulin 3.8 H, Albumin/Globulin Ratio 0.9 L 03/11/24 11:03: POC Glucose 227 H 03/11/24 16:50: POC Glucose 115 H 03/11/24 20:17: POC Glucose 136 H 03/12/24 00:11: Vancomycin Trough 17.2 H 03/12/24 05:15: POC Glucose 112 H 03/12/24 05:40: WBC 11.2 H, RBC 3.93 L, Hgb 10.4 L, Hct 34.4 L, MCV 87.5, MCH 26.5 L, MCHC 30.2 L, RDW 16.2, Plt Count 416, MPV 10.4, Neut % (Auto) 59.4, Lymph % (Auto) 15.5, [place] % (Auto) 18.3 H, Eos % (Auto) 4.9, Baso % (Auto) 1.2, Neut # (Auto) 6.7, Lymph # (Auto) 1.7, [place] # (Auto) 2.1 H, Eos # (Auto) 0.6 H, Baso # (Auto) 0.1, Sodium 134 L, Potassium 3.7, Chloride 95 L, Carbon Dioxide 33 H, Anion Gap 9.7, BUN 34 H, Creatinine 1.00 D, Estimated Creat Clear 45, Estimated GFR 55 L, Est GFR ( Amer) 66 D, Glucose 99, Calcium 8.2 L, Magnesium 1.9 D, Total Bilirubin 0.2, AST 27 D, ALT 14, Alkaline Phosphatase 122, Total Protein 6.3, Albumin 3.0 L D, Globulin 3.3 H, Albumin/Globulin Ratio 0.9 L, Vancomycin Peak 37.3 Medical History: Medical History (Updated 03/11/24 @ 18:08 by Brandon Oconnor MD) UTI (urinary tract infection) Renal insufficiency Hyperkalemia Hypotension Hypertension CAD in [place] artery BMI 39.0-39.9,adult Chronic anemia Chronic anticoagulation Coronary artery disease Diabetes HFrEF (heart failure with reduced ejection fraction) Pulmonary hypertension Depression Constipation GERD (gastroesophageal reflux disease) Oxygen dependent Atrial fibrillation Assessment and Plan Assessment and plan all Dx Assessment and Plan for all problems:: BASED ON PATIENT FACTORS AND VANCOMYCIN TROUGH/PEAK LEVELS OF 17.2/37.3 RESPECTIVELY, RECOMMEND CONTINUING CURRENT DOSE OF VANCOMYCIN AT 1,750MG IV EVERY 18 HOURS. PHARMACY WILL CONTINUE TO MONITOR AND ADJUST VANCOMYCIN DOSE APPROPRIATE. -AJ ESPINOZA PHARMD
--- NOTE | 2024-03-12 10:47 | P.DS_ITS ---
General Admission date:: 03/09/24 Discharge date: 03/12/24 HPI HPI HPI: This 68-year-old female has come to the emergency, with mild confusion per her daughter a fever, and weight gain, on exam patient is found to have a fever also notable skin infection/cellulitis to the abdominal wall below the breast and in the abdominal fold to the groin, this is significant enough that it is showing up on the CT scan. Question abdominal cellulitis fungal versus bacterial or combination of both. Also noting in the patient's history a significant problem with congestive heart failure and left ventricular diastolic dysfunction with high right ventricle pressures., Per Dr. Morgan's note actually should qualify for CardioMEMS to monitor this. Patient is also in atrial fib. Noted with the patient's history she is a splenic has had chronic candidal intertrigo, per daughter is not taking care of self hygiene sitting most of the time. That her mother becomes quite defiant when trying to get her to take a shower hemoglobin of 8.7 in December of this year. The patient also volunteered that her of more than 30 years 6 months ago. in looking at old records that her weight as of this time last year was in the 180s., Presently now in the 230s. Patient also noted with elevated blood pressure greater than 150 systolic. And white count is above 15. But has normal kidney function. So I do agree that the patient needs to be admitted being treating for potential sepsis but will be holding fluids at this time as patient needs extra diuretics. Antibiotics have been started. Also Bactroban to the skin and wound consult, ordered will need further evaluation is if this is dysfunctional grieving that is having her not care for herself at this point in time.. Hospital Course Hospital Course Hospital Course: Rica Flannery is a 68-year-old female who presented with abdominal pain and was admitted for acute HFpEF exacerbation and severe intertrigo. Responded well to diuresis. Initiated on antibiotics for UTI. Able to wean to room air. Stable to discharge to rehab for further management. Problems addressed as follows: #Acute on chronic HFpEF exacerbation #Cor pulmonale ? Initial BNP 10,500 with fluid overload. Showed improvement on repeat labs. Was initiated empirically on significant diuresis. Negative over 5 L since admission. Able to wean from supplemental oxygen to room air. Plan to continue Bumex 1 mg twice daily. ECHO 2022 showing: severe PHTn, Severe, RV dilation/dysfunction, and severe TR. repeat echo shows stable consistent findings. Will continue home metoprolol succinate 25 mg daily, spironolactone 25 mg daily. Cardiology assisting with care during admission. Patient on goal- directed therapy with SGLT2's to promote weight loss. Continuing dapagliflozin and sitagliptin. Cardiology recommends outpatient sleep study. Will defer to them to order. Chemistry stable with kidney function showing BUN 34, creatinine 1.0. Electrolytes stable with magnesium 1.9, potassium 3.7. Needs repeat labs in 1 to 2 weeks to monitor kidney function and electrolyte stability #Sepsis #Staph bacteremia #History of asplenia Urinary tract infection ? Initial WBC 17.1, improved during admission to 11. Initially was febrile with fever of 100.8. Had a suspected contaminated blood culture with Staph aureus. Only 1 bottle of 4. Urine culture growing gram-negative rods. Likely the source for her infectious symptoms. Transition to cefdinir to complete 7-day course of antibiotics. Treated empirically with ceftriaxone during admission. #Severe intertrigo: Within abdominal pannus. Continue topical nystatin powder, mupirocin. No indication for systemic antifungal or antibacterial #Physical deconditioning #Depression ? Patient's about 6 months ago and patient has since been not tending towards. PT/OT consulted, recommended SNF placement. Accepted to [facility]. Continue home duloxetine 60 mg daily, nortriptyline 25 mg daily. W oulld benefit from outpatient therapy. Chronic medical problems: #Paroxysmal A-fib: Currently rate controlled. Continue home metoprolol succinate 25 mg, Eliquis 5 mg twice daily. #CAD: Continue home aspirin, statin. Morbid obesity complicates all aspects of her care Total time spent on discharge 36 minutes in counseling, documentation, chart rev iew, and direct care with patient. Exam Data for Last 24 hours Vital signs and Labs for Last 24 Hours: Temp Pulse Resp BP Pulse Ox O2 Del Method O2 Flow Rate 98.1 F 69 20 111/59 L 95 Nasal Cannula 2 03/12/24 08:00 03/12/24 08:00 03/12/24 08:00 03/12/24 08:00 03/12/24 08:00 03/12/24 08:00 03/12/24 08:00 Laboratory Results - last 24 hr 03/09/24 17:15: Urine Color Yellow, Urine Appearance Clear, Urine pH 6.0, Ur Specific [place] 1.015, Urine Protein Trace, Urine Glucose (UA) 3+, Urine Ketones Negative, Urine Blood 1+ A, Urine Nitrate Negative, Urine Bilirubin Negative, Urine Urobilinogen 0.2, Ur Leukocyte Esterase Trace, Urine RBC Occasional, Urine WBC 10-20, Ur Squamous Epith Cells 5-10, Urine Bacteria Trace 03/11/24 05:30: Sodium 133 L, Potassium 4.0, Chloride 95 L, Carbon Dioxide 27, Anion Gap 15.0, BUN 33 H D, Creatinine 1.30 H D, Estimated Creat Clear 35, Estimated GFR 40 L, Est GFR ( Amer) 49 L D, Glucose 108 H D, Calcium 8.2 L, Magnesium 2.4 H D, Total Bilirubin 0.5, AST 46 H D, ALT 17, Alkaline Phosphatase 115, Total Protein 7.3, Albumin 3.5, Globulin 3.8 H, Albumin/Globulin Ratio 0.9 L 03/11/24 11:03: POC Glucose 227 H 03/11/24 16:50: POC Glucose 115 H 03/11/24 20:17: POC Glucose 136 H 03/12/24 00:11: Vancomycin Trough 17.2 H 03/12/24 05:15: POC Glucose 112 H 03/12/24 05:40: WBC 11.2 H, RBC 3.93 L, Hgb 10.4 L, Hct 34.4 L, MCV 87.5, MCH 26.5 L, MCHC 30.2 L, RDW 16.2, Plt Count 416, MPV 10.4, Neut % (Auto) 59.4, Lymph % (Auto) 15.5, Barry % (Auto) 18.3 H, Eos % (Auto) 4.9, Baso % (Auto) 1.2, Neut # (Auto) 6.7, Lymph # (Auto) 1.7, [place] # (Auto) 2.1 H, Eos # (Auto) 0.6 H, Baso # (Auto) 0.1, Sodium 134 L, Potassium 3.7, Chloride 95 L, Carbon Dioxide 33 H, Anion Gap 9.7, BUN 34 H, Creatinine 1.00 D, Estimated Creat Clear 45, Estimated GFR 55 L, Est GFR ( Amer) 66 D, Glucose 99, Calcium 8.2 L, Ma gnesium 1.9 D, Total Bilirubin 0.2, AST 27 D, ALT 14, Alkaline Phosphatase 122, Total Protein 6.3, Albumin 3.0 L D, Globulin 3.3 H, Albumin/Globulin Ratio 0.9 L, Vancomycin Peak 37.3 I & O for Last 24 hours: Intake & Output 03/09/24 03/10/24 03/11/24 03/12/24 23:59 23:59 23:59 23:59 Intake Total 706 / 806 1500 / 1600 640 / 640 Output Total 475 / 1025 3450 / 3450 2800 / 2800 1200 / 1200 Balance -475 / -739 -2744 / -2644 -1300 / -1200 -560 / -560 Weight 111.13 kg 111.266 kg 109 kg 109.996 kg Microbiology Reports for the Last 24 Hours: Microbiology 03/09/24 17:15 Urine,Clean Catch Urine Culture - Preliminary Escherichia coli 03/09/24 16:57 Blood Blood Culture - Final Staphylococcus aureus 03/11/24 05:37 Blood Blood Culture - Preliminary NO GROWTH AFTER 24 HOURS 03/11/24 05:37 Blood Blood Culture - Preliminary NO GROWTH AFTER 24 HOURS 03/09/24 17:17 Blood Blood Culture - Preliminary NO GROWTH AFTER 48 HOURS Constitutional Constitutional: no acute distress, morbidly obese, chronically ill appearing and cooperative *Routine HEENT Exam Head: Present normocephalic Eye: Present EOMI and PERRL ENT: Present mucous membranes moist *Routine Neck Exam Neck: Present supple; Absent lymphadenopathy *Routine Respiratory Exam Respiratory: Present CTA bilaterally; Absent respiratory distress, rhonchi, stridor, wheezes or crackles *Routine Cardiovascular Exam Cardiovascular: Present irregularly irregular *Routine Abdominal Exam Abdominal: Present soft and normoactive bowel sounds; Absent tenderness Comments: Intertrigo within abdominal pannus *Routine Rectal Exam Patient deferred: visual exam *Routine Exam Patient deferred: external exam *Routine Extremities Exam Extremities: Absent cyanosis, clubbing or edema Comments: Bilateral lower extremity pitting edema 3+. *Routine Skin Exam Skin: Present warm and rash Comments: Intertrigo in abdominal folds. *Routine Neurological Exam Neurological: Present alert, oriented X3 and moving all extremities; Absent altered mental status Results Data Completed and Pending Labs on day of discharge: Labs from last 24 hours 03/12/24 03/12/24 03/12/24 05:40 05:15 00:11 WBC 11.2 H RBC 3.93 L Hgb 10.4 L Hct 34.4 L MCV 87.5 MCH 26.5 L MCHC 30.2 L RDW 16.2 Plt Count 416 MPV 10.4 Neut % (Auto) 59.4 Lymph % (Auto) 15.5 Barry % (Auto) 18.3 H Eos % (Auto) 4.9 Baso % (Auto) 1.2 Neut # (Auto) 6.7 Lymph # (Auto) 1.7 Barry # (Auto) 2.1 H Eos # (Auto) 0.6 H Baso # (Auto) 0.1 Sodium 134 L Potassium 3.7 Chloride 95 L Carbon Dioxide 33 H Anion Gap 9.7 BUN 34 H Creatinine 1.00 D Estimated Creat Clear 45 Estimated GFR 55 L Est GFR ( Amer) 66 D Glucose 99 POC Glucose 112 H Calcium 8.2 L Magnesium 1.9 D Total Bilirubin 0.2 AST 27 D ALT 14 Alkaline Phosphatase 122 Total Protein 6.3 Albumin 3.0 L D Globulin 3.3 H Albumin/Globulin Ratio 0.9 L Urine Color Urine Appearance Urine pH Ur Specific [place] Urine Protein Urine Glucose (UA) Urine Ketones Urine Blood Urine Nitrate Urine Bilirubin Urine Urobilinogen Ur Leukocyte Esterase Urine RBC Urine WBC Ur Squamous Epith Cells Urine Bacteria Vancomycin Peak 37.3 Vancomycin Trough 17.2 H 03/11/24 03/11/24 03/11/24 20:17 16:50 11:03 WBC RBC Hgb Hct MCV MCH MCHC RDW Plt Count MPV Neut % (Auto) Lymph % (Auto) Barry % (Auto) Eos % (Auto) Baso % (Auto) Neut # (Auto) Lymph # (Auto) Barry # (Auto) Eos # (Auto) Baso # (Auto) Sodium Potassium Chloride Carbon Dioxide Anion Gap BUN Creatinine Estimated Creat Clear Estimated GFR Est GFR ( Amer) Glucose POC Glucose 136 H 115 H 227 H Calcium Magnesium Total Bilirubin AST ALT Alkaline Phosphatase Total Protein Albumin Globulin Albumin/Globulin Ratio Urine Color Urine Appearance Urine pH Ur Specific [place] Urine Protein Urine Glucose (UA) Urine Ketones Urine Blood Urine Nitrate Urine Bilirubin Urine Urobilinogen Ur Leukocyte Esterase Urine RBC Urine WBC Ur Squamous Epith Cells Urine Bacteria Vancomycin Peak Vancomycin Trough 03/11/24 03/09/24 05:30 17:15 WBC RBC Hgb Hct MCV MCH MCHC RDW Plt Count MPV Neut % (Auto) Lymph % (Auto) [place] % (Auto) Eos % (Auto) Baso % (Auto) Neut # (Auto) Lymph # (Auto) Barry # (Auto) Eos # (Auto) Baso # (Auto) Sodium 133 L Potassium 4.0 Chloride 95 L Carbon Dioxide 27 Anion Gap 15.0 BUN 33 H D Creatinine 1.30 H D Estimated Creat Clear 35 Estimated GFR 40 L Est GFR ( Amer) 49 L D Glucose 108 H D POC Glucose Calcium 8.2 L Magnesium 2.4 H D Total Bilirubin 0.5 AST 46 H D ALT 17 Alkaline Phosphatase 115 Total Protein 7.3 Albumin 3.5 Globulin 3.8 H Albumin/Globulin Ratio 0.9 L Urine Color Yellow Urine Appearance Clear Urine pH 6.0 Ur Specific [place] 1.015 Urine Protein Trace Urine Glucose (UA) 3+ Urine Ketones Negative Urine Blood 1+ A Urine Nitrate Negative Urine Bilirubin Negative Urine Urobilinogen 0.2 Ur Leukocyte Esterase Trace Urine RBC Occasional Urine WBC 10-20 Ur Squamous Epith Cells 5-10 Urine Bacteria Trace Vancomycin Peak Vancomycin Trough Preliminary micro results at discharge 03/09/24 17:15 Urine Culture - Preliminary Urine,Clean Catch Escherichia coli 03/11/24 05:37 Blood Culture - Preliminary Blood NO GROWTH AFTER 24 HOURS 03/11/24 05:37 Blood Culture - Preliminary Blood NO GROWTH AFTER 24 HOURS 03/09/24 17:17 Blood Culture - Preliminary Blood NO GROWTH AFTER 48 HOURS DS: Diagnosis Discharge Diagnosis (1) Acute on chronic right heart failure: Status: Acute Code(s): I50.813 - Acute on chronic right heart failure (2) Sepsis: Status: Acute Code(s): A41.9 - Sepsis, unspecified organism Qualifiers: Sepsis acute organ dysfunction status: unspecified Sepsis type: sepsis due to unspecified organism Qualified Code(s): A41.9 - Sepsis, unspecified organism (3) Abdominal wall cellulitis: Status: Acute Code(s): L03.311 - Cellulitis of abdominal wall (4) Candidal intertrigo: Status: Acute Code(s): B37.2 - Candidiasis of skin and nail (5) Asplenia: Status: Acute Code(s): Q89.01 - Asplenia (congenital) (6) Atrial fibrillation: Status: Acute Code(s): I48.91 - Unspecified atrial fibrillation Qualifiers: Atrial fibrillation type: longstanding persistent Qualified Code(s): I48.11 - Longstanding persistent atrial fibrillation (7) Diabetes mellitus type 2 in obese: Status: Chronic Code(s): E11.69 - Type 2 diabetes mellitus with other specified complication; E66.9 - Obesity, unspecified (8) Obesity: Status: Acute Code(s): E66.9 - Obesity, unspecified Qualifiers: Body mass index: BMI 31.0-31.9 Obesity classification: adult class 1 (BMI 30 - 34.9) Obesity type: due to excess calories Serious obesity comorbidity presence: with serious comorbidity Qualified Code(s): E66.09 - Other obesity due to excess calories; Z68.31 - Body mass index [BMI] 31.0-31.9, adult (9) Pulmonary hypertension: Status: Chronic Code(s): I27.20 - Pulmonary hypertension, unspecified (10) Cor pulmonale: Status: Acute Code(s): I27.81 - Cor pulmonale (chronic) Meds Home Medications and Allergies Home Medications ?Medication ?Instructions ?Recorded ?Confirmed ?Type melatonin 5 mg tablet 5 mg PO HS sleep 09/28/22 03/09/24 History pantoprazole 40 mg tablet,delayed 40 mg PO HS #90 tabs 10/20/23 03/09/24 Rx release famotidine 20 mg tablet 20 mg PO DAILY 03/10/24 03/10/24 History apixaban 5 mg tablet (Eliquis) 5 mg PO BID atrial fib/ blood 03/12/24 Rx thinner 30 days #60 tabs aspirin 81 mg tablet,delayed 81 mg PO DAILY #90 tabs 03/12/24 Rx release atorvastatin 40 mg tablet 40 mg PO HS #90 tabs 03/12/24 Rx bumetanide 1 mg tablet 1 mg PO BIDL 30 days #60 tabs 03/12/24 Rx cefdinir 300 mg capsule 300 mg PO BID #6 caps 03/12/24 Rx dapagliflozin propanediol 10 mg 10 mg PO DAILY Diabetes #30 tabs 03/12/24 Rx tablet duloxetine 60 mg capsule,delayed 60 mg PO DAILY #30 caps 03/12/24 Rx release metoprolol succinate 25 mg 25 mg PO DAILY #30 tabs 03/12/24 Rx tablet,extended release 24 hr mupirocin 2 % topical ointment 1 applic topical BID 10 days #22 03/12/24 Rx grams nortriptyline 25 mg capsule 25 mg PO HS #30 caps 03/12/24 Rx nystatin 100,000 unit/gram topical 1 applic topical QID 14 days #30 03/12/24 Rx powder grams ramelteon 8 mg tablet 8 mg PO HS PRN sleep #30 tabs 03/12/24 Rx sacubitril 24 mg-valsartan 26 mg 1 tab PO BID 30 days #60 tabs 03/12/24 Rx tablet sennosides 8.6 mg-docusate sodium 1 tab PO HS Constipation #30 tabs 03/12/24 Rx 50 mg tablet (Senna-S) sitagliptin phosphate 50 mg tablet 50 mg PO DAILY #30 tabs 03/12/24 Rx (Januvia) spironolactone 25 mg tablet 25 mg PO DAILY #30 tabs 03/12/24 Rx tirzepatide 5 mg/0.5 mL 5 mg (0.5 mL) SQ WEEKLY #2.5 mL 03/12/24 Rx subcutaneous pen injector (Mounjaro) New Prescriptions to Start Prescriptions: apixaban [Eliquis] Elvin,Brandon aspirin Elvin,Brandon atorvastatin Elvin,Brandon bumetanide Elvin,Brandon cefdinir Elvin,Brandon dapagliflozin propanediol Elvin,Brandon duloxetine Elvin,Brandon metoprolol succinate Elvin,Brandon mupirocin Elvin,rBandon nortriptyline Elvin,Brandon nystatin Elvin,Brandon ramelteon Elvin,Brandon sacubitril-valsartan Elvin,Brandon sennosides-docusate sodium [Senna-S] Elvin,Brandon sitagliptin phosphate [Januvia] Elvin,Brandon spironolactone Elvin,Brandon tirzepatide [Mounjaro] Elvin,Brandon Allergies Allergy/AdvReac Type Severity Reaction Status Date / Time levofloxacin Allergy Verified 01/08/24 08:22 meperidine Allergy Verified 01/08/24 08:22 Discharge Plan Disposition Patient Disposition: [facility] Condition: Fair Discharge Order Discharge Orders: Discharge Order (Routine); Ordered 03/12/24 Ordered By: Brandon Oconnor Follow up Plan Follow up with: Theo Carreno MD [Staff Physician] - 03/20/24 1:30 pm Prescriptions/Medication Reconciliation: New mupirocin 2 % Ointment 1 applic topical BID 10 Days Qty: 22 0RF nystatin 100,000 unit/gram Powder 1 applic topical QID 14 Days Qty: 30 0RF cefdinir 300 mg capsule 300 mg PO BID Qty: 6 0RF Rx Instructions: start with morning dose of 03/13/24 Continued pantoprazole 40 mg tablet,delayed release (DR/EC) 40 mg PO HS Qty: 90 1RF melatonin 5 mg Tablet 5 mg PO HS famotidine 20 mg tablet 20 mg PO DAILY atorvastatin 40 mg tablet 40 mg PO HS Qty: 90 1RF sennosides-docusate sodium [Senna-S] 8.6-50 mg tablet 1 tab PO HS Qty: 30 1RF aspirin 81 mg tablet,delayed release (DR/EC) 81 mg PO DAILY Qty: 90 1RF spironolactone 25 mg tablet 25 mg PO DAILY Qty: 30 1RF nortriptyline 25 mg capsule 25 mg PO HS Qty: 30 1RF metoprolol succinate 25 mg tablet extended release 24 hr 25 mg PO DAILY Qty: 30 1RF duloxetine 60 mg capsule,delayed release(DR/EC) 60 mg PO DAILY Qty: 30 1RF ramelteon 8 mg tablet 8 mg PO HS PRN (Reason: sleep) Qty: 30 1RF Januvia 50 mg tablet 50 mg PO DAILY Qty: 30 0RF Eliquis 5 mg tablet 5 mg PO BID 30 Days Qty: 60 0RF sacubitril-valsartan 24-26 mg tablet 1 tab PO BID 30 Days Qty: 60 1RF Mounjaro 5 mg/0.5 mL pen injector 5 mg SQ WEEKLY Qty: 2.5 2RF Changed bumetanide 1 mg tablet 1 mg PO BIDL 30 Days Qty: 60 1RF dapagliflozin propanediol 10 mg tablet 10 mg PO DAILY Qty: 30 0RF Problem Reconciliation Problems Reviewed?: Yes Patient Discharge Instructions ACTIVITY: Continue current activity DIET: continue same diet Patient Instructions: DI for Cellulitis -- Adult, Heart-Healthy Diet, DI for Heart Failure, DI for Fever (Symptom) -- Adult, Using Nutrition Labels: Carbohydrate Diet, Heart-Healthy Consistent Carbohydrate Diet Print Language: [place]ian Providers Primary Care Provider: Luiz Sage Provider: Goldy Weir Attending Provider: Goldy Weir
[2024-03-12 11:07] LABS: POC Glucose,Bedside 189 (70-110)
[2024-03-12] MEDS: humaLOG 100 UNITS/ML 10ML VIAL (SSI) SUBCUT (11:30)
[2024-03-12] MEDS: CEFTRIAXONE 1 GM 1 GM in 0.9 % SODIUM CHLORIDE 50 ML IV (11:31)
[2024-03-12 12:00] VITALS: BP 95/59; PULSE 57; PULSE 65; RESP 16; TEMP 36.7; O2SAT 92
--- NOTE | 2024-03-12 12:41 | EXP.CARD.PN ---
Subjective Subjective Date: 03/12/24 Time: 09:30 Principal diagnosis: RHF, cellulitis Interval history: No issues overnight. Bilat KENDRA's normal. BP, Cr, CXR all stable. Pt diuresed 5L. ECHO unchnaged from prior. Exam Data for Last 24 hours Vital signs and Labs for Last 24 Hours: Temp Pulse Resp BP Pulse Ox O2 Del Method O2 Flow Rate 98.1 F 57 L 16 95/59 L 92 L Room Air 2 03/12/24 12:00 03/12/24 12:00 03/12/24 12:00 03/12/24 12:00 03/12/24 12:00 03/12/24 12:00 03/12/24 08:00 Laboratory Results - last 24 hr 03/09/24 17:15: Urine Color Yellow, Urine Appearance Clear, Urine pH 6.0, Ur Specific [place] 1.015, Urine Protein Trace, Urine Glucose (UA) 3+, Urine Ketones Negative, Urine Blood 1+ A, Urine Nitrate Negative, Urine Bilirubin Negative, Urine Urobilinogen 0.2, Ur Leukocyte Esterase Trace, Urine RBC Occasional, Urine WBC 10-20, Ur Squamous Epith Cells 5-10, Urine Bacteria Trace 03/11/24 16:50: POC Glucose 115 H 03/11/24 20:17: POC Glucose 136 H 03/12/24 00:11: Vancomycin Trough 17.2 H 03/12/24 05:15: POC Glucose 112 H 03/12/24 05:40: WBC 11.2 H, RBC 3.93 L, Hgb 10.4 L, Hct 34.4 L, MCV 87.5, MCH 26.5 L, MCHC 30.2 L, RDW 16.2, Plt Count 416, MPV 10.4, Neut % (Auto) 59.4, Lymph % (Auto) 15.5, [place] % (Auto) 18.3 H, Eos % (Auto) 4.9, Baso % (Auto) 1.2, Neut # (Auto) 6.7, Lymph # (Auto) 1.7, [place] # (Auto) 2.1 H, Eos # (Auto) 0.6 H, Baso # (Auto) 0.1, Sodium 134 L, Potassium 3.7, Chloride 95 L, Carbon Dioxide 33 H, Anion Gap 9.7, BUN 34 H, Creatinine 1.00 D, Estimated Creat Clear 45, Estimated GFR 55 L, Est GFR ( Amer) 66 D, Glucose 99, Calcium 8.2 L, Magnesium 1.9 D, Total Bilirubin 0.2, AST 27 D, ALT 14, Alkaline Phosphatase 122, Total Protein 6.3, Albumin 3.0 L D, Globulin 3.3 H, Albumin/Globulin Ratio 0.9 L, Vancomycin Peak 37.3 03/12/24 11:01: POC Glucose 189 H I & O for Last 24 hours: Intake & Output 03/09/24 03/10/24 03/11/24 03/12/24 23:59 23:59 23:59 23:59 Intake Total 706 / 806 1500 / 1600 640 / 640 Output Total 475 / 1025 3450 / 3450 2800 / 2800 1999 / 1999 Balance -475 / -739 -2744 / -2644 -1300 / -1200 -1360 / -1360 Weight 245 lb 245 lb 4.8 oz 240 lb 4.862 oz 242 lb 7.995 oz Microbiology Reports for the Last 24 Hours: Microbiology 03/09/24 17:15 Urine,Clean Catch Urine Culture - Preliminary Escherichia coli 03/09/24 16:57 Blood Blood Culture - Final Staphylococcus aureus 03/11/24 05:37 Blood Blood Culture - Preliminary NO GROWTH AFTER 24 HOURS 03/11/24 05:37 Blood Blood Culture - Preliminary NO GROWTH AFTER 24 HOURS 03/09/24 17:17 Blood Blood Culture - Preliminary NO GROWTH AFTER 48 HOURS Constitutional Constitutional: no acute distress and cooperative *Routine HEENT Exam Eye: Present PERRL *Routine Respiratory Exam Respiratory: Present CTA bilaterally; Absent accessory muscle use, wheezes or crackles *Routine Cardiovascular Exam Cardiovascular: Present RRR, Normal S1 and Normal S2; Absent murmur, gallop or rubs *Routine Abdominal Exam Abdominal: Present soft; Absent tenderness *Routine Extremities Exam Extremities: Present pulses intact; Absent cyanosis or edema Comments: trace BLE toes are purple and cold bilaterally - pt comments normal' when she's cold. Significant vericose veins noted. *Routine Skin Exam Skin: Present intact; Absent erythema or wounds *Routine Neurological Exam Neurological: Present alert and oriented X3 Routine Psychiatric Exam Psychiatric: Present cooperative Progress Note: A&P Assessment and plan (1) Acute on chronic right heart failure: Status: Acute (2) Sepsis: Status: Acute (3) Abdominal wall cellulitis: Status: Acute (4) Candidal intertrigo: Status: Acute (5) Asplenia: Status: Acute (6) Atrial fibrillation: Status: Acute (7) Diabetes mellitus type 2 in obese: Status: Chronic (8) Obesity: Status: Acute (9) Pulmonary hypertension: Status: Chronic (10) Cor pulmonale: Status: Acute Assessment and Plan Assessment and Plan for All Diagnoses:: Acute on Chronic RHF, Cor Pulmonale - known dx with ECHO 2022 showing: severe PHTn, Severe, RV dilation/dysfunction, and severe TR - continue diuresis - increase Bumex to TID, her Cr is normal - improve lung function - screeng for MANSI - pt needs aggressive weight loss - consider OP GLP-1 - repeat 2D ECHO here is unchanged from previous. Results discussed in detail with patient - Cont current meds, focus on weight loss, MANSI screening, fluid management. PAF - known dx, rate controlled and asymptomatic here - cont home dose Eliquis and Metoprolol Non-obstructive CAD - per [facility] 2022 - pt denies angina - cont Eliquis, BB, Statin Cellulitis/Sepsis/PNA/UTI - per Hospitalist Morbid Obesity, BMI 40 - pt needs aggressive weight loss via diet/exercise, consider OP GLP-1 Lower Extremity Color Change - check bilateral KENDRA *CV stable for discharge on current meds. She needs daily vitals/weight when she goes to SNF and they need to contact our office with >5lb weight gain. Otherwise she can f/u with us in the office in 2 weeks.
== END 2024-03-12 14:00 | DRG 292 ==
LOC: ER 19:07 → 2ND 20:22
PROVIDERS: Internal Medicine Adolescent Medicine; Nurse Practitioner Family; Physician Assistant; Admitting Provider Student in an Organized Health Care Education/Training Program; Emergency Provider Student in an Organized Health Care Education/Training Program; PCP Internal Medicine; Visit Provider Student in an Organized Health Care Education/Training Program
DX: I50.33 Acute on chronic diastolic (congestive) heart failure (principal); L03.311 Cellulitis of abdominal wall; Z68.41 Body mass index [BMI] 40.0-44.9, adult; Q89.01 Asplenia (congenital); R78.81 Bacteremia; N39.0 Urinary tract infection, site not specified; I50.813 Acute on chronic right heart failure; I48.0 Paroxysmal atrial fibrillation; E11.69 Type 2 diabetes mellitus with other specified complication; E66.01 Morbid (severe) obesity due to excess calories; I27.20 Pulmonary hypertension, unspecified; I27.81 Cor pulmonale (chronic); Z99.81 Dependence on supplemental oxygen; I25.10 Atherosclerotic heart disease of native coronary artery without angina pectoris; Z73.89 Other problems related to life management difficulty; Z79.01 Long term (current) use of anticoagulants; Z74.1 Need for assistance with personal care; Z79.85 Long-term (current) use of injectable non-insulin antidiabetic drugs; Z79.899 Other long term (current) drug therapy; B37.2 Candidiasis of skin and nail; B95.8 Unspecified staphylococcus as the cause of diseases classified elsewhere; F43.21 Adjustment disorder with depressed mood
CPT/HCPCS: 36415; 71045; 71275; 74177; 80053; 80202; 81001; 82803; 82962; 83036; 83605; 83735; 83880; 84443; 84484; 85007; 85025; 85378; 86803; 87040; 87077; 87086; 87088; 87186; 87389; 87636; 93005; 93306; 93923; 97110; 97162; 97165; 97530; 99291; J0696; J1650; J1939; J3370; J3372; J3475; Q9967

== ENCOUNTER 2024-05-09 13:42 | Outpatient (CLI) | payer MEDICARE, BC, SELFPAY ==
[2024-05-09 13:56] LABS: Microalbumin/Creatinine Ratio 146.4
[2024-05-09 13:58] LABS: Creatinine,Urine Random 37 mg/dL (Not Estab.)
== END 2024-05-09 23:59 | disposition home or self-care (01) ==
LOC: LAB.DROPOF 13:43
PROVIDERS: PCP Internal Medicine; Visit Provider Internal Medicine
DX: E11.69 Type 2 diabetes mellitus with other specified complication (principal); E66.9 Obesity, unspecified; Z68.37 Body mass index [BMI] 37.0-37.9, adult
CPT/HCPCS: 82043; 82570

== ENCOUNTER 2024-07-03 16:10 | Outpatient (CLI) | payer MEDICARE, BC, SELFPAY ==
--- NOTE | 2024-07-03 16:37 | XR_ITS ---
PROCEDURE INFORMATION: Exam: XR Left Foot Complete; Alignment Exam date and time: 07/03/2024 4:40 PM Age: 68 years old Clinical indication: Left foot pain. R/O osteo; Additional info: Left 3rd dfu TECHNIQUE: Imaging protocol: Radiologic exam of the left foot. Views: 3 or more views. COMPARISON: US ARTERIAL LOWER EXT REST 03/11/2024 12:54 PM FINDINGS: Bones/joints: Evaluation is limited due to overlapping structures and flexion positioning of the distal digit. There is mild diffuse osteopenia. There is no evidence of acute fracture or dislocation. Calcaneal spurs are demonstrated at the origin of the plantar fascia and the insertion of the Achilles tendon. Soft tissues: There is soft tissue prominence involving the 3rd distal phalanx with mildly increased density suggesting edema/inflammation/cellulitis. Exclusion of erosive change/osteomyelitis of the distal 3rd digit is limited due to overlapping osseous structures. There is a small apparent lucency in the distal soft tissues of the 3rd digit on the oblique view only which could reflect a small area of subcutaneous emphysema or potentially soft tissue wound. Correlate clinically. The visualized osseous structures do not show a raul area of bony erosion to indicate osteomyelitis. Mild degenerative changes involve the tarsometatarsal joints. No radiopaque foreign bodies. IMPRESSION: 1. Evaluation is limited due to overlapping structures and flexion positioning of the distal digits. 2. As seen, no acute posttraumatic osseous injury. 3. Soft tissue of the 3rd distal phalanx with mildly increased density suggesting edema/inflammation/cellulitis. Small focus of lucency in the distal soft tissues of the 3rd digit which could reflect a small area of subcutaneous emphysema or potentially soft tissue wound. Correlate clinically. 4. Exclusion of erosive change/osteomyelitis of the distal 3rd digit is limited due to overlapping osseous structures. Subtle areas of erosion could be obscured from view. As seen, the visualized osseous structures in this region show no definite evidence of bony erosive change. Correlate clinically.
[2024-07-03 17:08] LABS: Basophils # 0.2 K/mm3 (0-0.2); Basophils % 1.2 % (0.1-2.0); Eosinophils # 0.5 Kmm3 (0.0-0.4); Eosinophils % 3.9 % (0.1-12.0); Hematocrit 37.7 % (37.0-47.0); Hemoglobin 11.1 g/dL (12.2-16.2); Immature Granulocytes # 0.06 10^3uL; Immature Granulocytes % 0.5 %; Lymphocytes # 1.7 K/mm3 (0.7-4.5); Lymphocytes % 13.2 % (10-50); Mean Corpuscular HGB Conc 29.4 g/dL (31.8-35.4); Mean Corpuscular Hemoglobin 22.2 pg (27.0-31.2); Mean Corpuscular Volume 75.6 fl (81-99); Mean Platelet Volume 10.1 fl (7.4-10.4); Monocytes # 1.2 K/mm3 (0.1-1.0); Monocytes % 9.2 % (1.7-9.3); Neutrophils # 9.1 K/mm3 (1.8-7.8); Nucleated Red Blood Cells # 0.06 10^3/uL; Nucleated Red Blood Cells % 0.5 %; Platelet Count 574 K/mm3 (142-424); Red Blood Count 4.99 M/mm3 (4.20-5.40); Red Cell Distribution Width 20.5 % (11.5-17.5); Red Cell Distribution Width-SD 52.3 fL; White Blood Count 12.6 K/mm3 (4.8-10.8)
[2024-07-03 17:30] LABS: Alanine Aminotransferase 17 U/L (12-78); Albumin Level 3.7 g/dl (3.5-5.0); Alkaline Phosphatase 157 U/L (38-126); Anion Gap 11.7 mEq/L (5-15); Aspartate Amino Transferase 26 U/L (14-36); Bilirubin,Total 0.5 mg/dl (0.2-1.3); Blood Urea Nitrogen 53 mg/dl (7-17); Calcium 8.9 mg/dl (8.4-10.2); Carbon Dioxide 27 mmol/L (22.0-30.0); Chloride 98 mmol/L (98-107); Estimated Glomerular Filt Rate 62 ml/min (>60); GFR (African American) 75 ML/MIN (>60); Globulin 3.7 g/dL (1.3-3.2); Glucose 129 mg/dl (74-100); Potassium 4.7 mmoL/L (3.5-5.1); Sodium 132 mmol/L (136-145); Total Protein,Serum 7.4 g/dl (6.3-8.2)
[2024-07-03 17:36] LABS: C-Reactive Protein 46.7 mg/L (0-4)
[2024-07-03 18:02] LABS: Erythrocyte Sedimentation Rate 16 mm/hr (0-30)
[2024-07-03 19:46] LABS: Hemoglobin A1C 8.3 % (4.0-6.0)
== END 2024-07-03 23:59 | disposition home or self-care (01) ==
LOC: LAB 16:11
PROVIDERS: PCP Internal Medicine; Visit Provider Nurse Practitioner
DX: L97.509 Non-pressure chronic ulcer of other part of unspecified foot with unspecified severity (principal); E11.621 Type 2 diabetes mellitus with foot ulcer
CPT/HCPCS: 36415; 73630; 80053; 83036; 85025; 85651; 86140

== ENCOUNTER 2024-07-08 13:22 | Outpatient (CLI) | payer MEDICARE, BC, SELFPAY ==
--- NOTE | 2024-07-08 | US_ITS ---
FINAL REPORT CLINICAL HISTORY: DM,WOUND 3RD TOE LEFT FOOT COMPARISON: 03/11/2024 FINDINGS: ANKLE-BRACHIAL PRESSURE INDICES Pressure indices are as follows: RIGHT LOWER EXTREMITY: Ankle-brachial pressure index: 1.1 Comments: Normal LEFT LOWER EXTREMITY: Ankle-brachial pressure index: 1.1 Comments: Normal CONCLUSION: No evidence of significant obstructive peripheral vascular disease of the lower extremities Reviewed, Interpreted and Dictated by Dandy Ascencio MD Transcribed by Zoya Reyes Authenticated and [facility]
== END 2024-07-08 23:59 | disposition home or self-care (01) ==
LOC: RT 13:24
PROVIDERS: PCP Internal Medicine; Visit Provider Nurse Practitioner
DX: I70.213 Atherosclerosis of native arteries of extremities with intermittent claudication, bilateral legs (principal); E11.9 Type 2 diabetes mellitus without complications; R09.89 Other specified symptoms and signs involving the circulatory and respiratory systems
CPT/HCPCS: 93923; 93924

== ENCOUNTER 2024-07-10 11:19 | Outpatient (CLI) | payer MEDICARE, BC, SELFPAY ==
--- NOTE | 2024-07-10 11:15 | MR_ITS ---
FINAL REPORT CLINICAL HISTORY: eval for left 3rd osteomyelitis, cellulitis. COMPARISON: None FINDINGS: Multiplanar MR imaging of the left foot was performed with and without contrast. There is minimal bone marrow edema in the distal phalanx of the third digit. Evaluation is overall somewhat limited secondary to motion, but this marrow edema is suspicious for mild changes of osteomyelitis. There is no evidence of surrounding abscess or gross bone destruction. Midfoot and hindfoot structures are unremarkable. The plantar fascia is normal. The flexor and extensor tendons are intact. The intrinsic muscles are unremarkable. There are no areas of abnormal contrast-enhancement. IMPRESSION: Minimal bone marrow edema in the distal phalanx of the third digit, suspicious for mild changes of osteomyelitis. No evidence of surrounding abscess or gross bone destruction. Reviewed, Interpreted and Dictated by Dandy Ascencio MD Transcribed by Zoya Reyes Authenticated and . [facility]
[2024-07-10] MEDS: SODIUM CHLORIDE 0.9% 10ML SYR (RAD ONLY) 10 ML IV (12:25)
[2024-07-10] MEDS: SODIUM CHLORIDE 0.9% 50ML BAG 20 ML IV (12:25)
[2024-07-10] MEDS: GADOTERIDOL INJ 20ML SYRINGE 19 ML IV (12:25)
== END 2024-07-10 23:59 | disposition home or self-care (01) ==
LOC: RAD 11:22
PROVIDERS: PCP Internal Medicine; Visit Provider Nurse Practitioner
DX: M85.872 Other specified disorders of bone density and structure, left ankle and foot (principal); E11.621 Type 2 diabetes mellitus with foot ulcer; L97.509 Non-pressure chronic ulcer of other part of unspecified foot with unspecified severity; E11.628 Type 2 diabetes mellitus with other skin complications; L03.032 Cellulitis of left toe; L08.9 Local infection of the skin and subcutaneous tissue, unspecified; M86.9 Osteomyelitis, unspecified
CPT/HCPCS: 73720; A9576

== ENCOUNTER 2024-07-28 14:30 | Outpatient (CLI) | payer MEDICARE, BC, SELFPAY ==
--- OUTSIDE RECORDS SUMMARY | 2024-07-28 14:46 | XMS_ITS | Encounter Summary ---
Author Organization [facility] Address [address] [place] [address] Care Team Providers Care Organ Tuner Name Role Phone Maegan Bermeo MD Primary Care Provider [phone] Audra Wahl QUALITY TECH Unavailable Unavailab Jessa Jimenez QUALITY TECH Unavailable Unavailable Reason for Visit * Reason Comments Med Refill Encounter Details Date Type Department Care Team (Late st Contact Info) Description 10/11/2021 Refill Family and Community Medicine [address] [place] [address] Maegan Bermeo MD [address] [place] [address] Avitaminosis D Social History Tobacco Use Types Packs/Day Years Used Date Smoking Tobacco: Former Smokeless Tobacco: Never PHQ-2 Answer Date Recorded Patient Health Questionnaire-2 Score 0 10/11/2021 Comments No Sex and Gender Information Value Date Recorded Sex Assigned at Female 05/17/2022 6:38 PM EDT Legal Sex Female 6:47 PM EDT Gender Identity Female 05/17/2022 6:38 PM EDT Sexual Orientation Straight 05/17/2022 6: 38 PM EDT COVID-19 Exposure Response Date Recorded In the last 10 days, have yo u been in contact with someone who was confirmed or suspected to have Coronavirus/COVID-19? No / Unsure 10/11/2021 11:18 AM EDT documented as of this encounter Functional Status * Over the past 2 weeks, how often have you been bothered by any of the following problems? Question Answer Date of Assessment Author Little interest or pleasure in doing things Not at all 10/11/2021 11:32 AM EDT Kassandra Duran Feeling down, depressed, or hopeless Not at all 10/11/2021 11:32 AM EDT Kassandra Duran Patient Health Questionnaire -2 Score 0 10/11/2021 11:32 AM EDT Kassandra Duran * Calculated C-SSRS Risk Score (Lifetime/Recent) Answer Date of Assessment Author No Risk Indicated 10/11/2021 11:32 AM EDT Kassandra Duran * Question Answer Date of Assessment Author 1. Wish to be (Past 1 Month) No 11:32 AM EDT Kassandra Duran 2. Non-Specific Active Suici josé Thoughts (Past 1 Month) No 10/11/2021 11:32 AM EDT Kassandra Duran 6. Suicidal Behavior (Lifetime) No 11:32 AM EDT Kassandra Duran documented as of this encounter Plan of Treatment Not on file documented as of this encounter Visit Diagnoses Diagnosis Avitaminosis D Unspecified vitamin D deficiency documented in this encounter Additional Health Concerns Infection Onset Date Last Indicated Resolved Time COVID 19 (Confirmed) Comment:Patient is >10 days from COVID test date on 10/26/2021 and patient no longer needs COVID isolation as patient is asymptomatic, not immunocompromised. Team aware. EVS notified. [facility] has verified patient has a COVID-19 positive result. A chart review has been completed, EPI PUI has been completed and sent to appropriate Health Dept. IPA Diesel Engine Fitter: Nimco Simms 10/26/2021 10/26/2021 022 10:27 AM EDT COVID 19 (Confirmed) 11/11/2021 11/11/2021 022 5:23 AM EDT COVID-19 Rule-Out 05/16/2022 05/16/2022 05/16/2022 11:05 PM EDT Assessment Noted Time A fall risk assessment has been complete d for the patient 10/11/2021 11:31 AM EDT documented as of this encounter Care Teams Organ Tuner Relationship Specialty Start Date End Date Maegan Bermeo MD [facility] [address] [place] [address] PCP - General Family Medicine 09/15/21 Audra Wahl LPN [employer] [place] [address] TCM Nurse 09/27/21 10/27/21 Jessa Park LPN [employer] [place] [address] Registered Nurse 05/26/22 05/26/22 documented as of this encounter
--- OUTSIDE RECORDS SUMMARY | 2024-07-28 14:46 | XMS_ITS | Encounter Summary ---
Author Organization Healthcare Address [address] [place] [address] Care Team Providers Care Inside Sales Specialist Name Role Phone Tyler Castelan MD Primary Care Provider [phone] Benjie Quezada MD Primary Care Provider Tamika Loomis APRN Primary Care Provider [phone] Maegan Bermeo MD Primary Care Provider [phone] Audra Wahl CAFETERIA COUNTER ATTENDANT Unavailable Unavailab Jessa Jimenez CAFETERIA COUNTER ATTENDANT Unavailable Unavailable Encounter Details Date Type Department Care Team (Late st Contact Info) Description 06/28/2021 Outside Procedure External Location [address] [place] [id number] Tyler Castelan MD [address] [place] [address] Social History Tobacco Use Types Packs/Day Years Used Date Smoking Tobacco: Former Smokeless Tobacco: Never PHQ-2 Answer Date Recorded Patient Health Questionnaire-2 Score 0 03/04/2021 Comments Unknown Sex and Gender Information Value Date Recorded [...] suspected to have Coronavirus/COVID-19? No / Unsure 06/28/2021 10:34 AM EDT documented as of this encounter Plan of Treatment Not on file documented as of this encounter Procedures Procedure Name Priority Date/Time Associated Diagnosis Comments VAS US VENOUS DUPLEX LOWER EXTREMITY UNILATERAL 06/28/2021 2:51 PM EDT documented in this encounter Results * VAS US Venous Duplex Lower Extremity Unilateral (06/28/2021 2:51 PM EDT) Anatomical Region Laterality Modality Lower Extremities Ultrasound 06/28/2021 2:51 PM EDT Narrative 06/28/2021 4:35 [place] [address] Name: RICA FLANNERY Exam Date: 06/28/2021 : 1955 Age 65 Gender: F Physician: TYLER CASTELAN Facility: [facility] Facility HSV: Outpatient Exam: VENOUS DUPLEX US LWR LT EXT DUPLEX VENOUS SONOGRAPHY OF THE LEFT LOWER EXTREMITY HISTORY: Left leg pain and swelling Multiple transverse and longitudinal scans were performed of the femoropopliteal deep venous system, with augmentation and compression maneuvers. Normal phasic flow was noted in the visualized deep venous system. No intraluminal increased echogenicity is noted to suggest thrombus. There is normal compression and augmentation of the venous structures. No abnormal venous collaterals are seen. The left anterior tibial vein is not visualized. IMPRESSION: No evidence of deep venous thrombosis of the left lower extremity Films reviewed , interpreted and dictated by Dr. Ruddy Dumont. Transcribed by Luis Phillips PA-C. Dictated By: Ruddy Gibbons Transcribed By: Ruddy Dumont Transcribed On: 06/28/2021 4:23 PM Electronically signed by: Ruddy Gibbons 06/28/2021 Thank you for referring RICA FLANNERY to [facility]. Legally authenticated by KWAME HARGROVE 2021-06-28 16:23:11 Procedure Note Provider, [facility] - 06/28/2021 [facility] [address] [place] [address] Name: RICA FLANNERY Exam Date: 06/28/2021 : 1955 Age 65 Gender: F Physician: TYLER CASTELAN Facility: [facility] Facility HSV: Outpatient Exam: VENOUS DUPLEX US LWR LT EXT DUPLEX VENOUS SONOGRAPHY OF THE LEFT LOWER EXTREMITY HISTORY: Left leg pain and swelling Multiple transverse and longitudinal scans were performed of the femoropopliteal deep venous system, with augmentation and compression maneuvers. Normal phasic flow was noted in the visualized deep venous system. No intraluminal increased echogenicity is noted to suggest thrombus. Thereis normal compression and augmentation of the venous structures. Noabnormal venous collaterals are seen. The left anterior tibial vein is notvisualized. IMPRESSION: No evidence of deep venous thrombosis of the left lowerextremity Films reviewed , interpreted and dictated by Dr. Ruddy Dumont. Transcribed by Luis Phillips PA-C. Dictated By: Ruddy Gibbons Transcribed By: Ruddy Dumont Transcribed On: 06/28/2021 4:23 PM Electronically signed by: Ruddy Gibbons 06/28/2021 Thank you for referring RICA FLANNERY to [facility]. Legally authenticated by KWAME HARGROVE 2021-06-28 16:23:11 Tyler Castelan MD CV VASCULAR PROCEDURES Final Result documented in this encounter Visit Diagnoses Not on filedocumented in this encounter Additional Health Concerns Infection Onset Date Last Indicated Resolved Time COVID 19 (Confirmed) Comment:Patient is >10 days from COVID test date on 10/26/2021 and patient no longer needs COVID isolation as patient is asymptomatic, not immunocompromised. Team aware. EVS notified. [facility] has verified patient has a COVID-19 positive result. A chart review has been completed, EPI PUI has been completed and sent to appropriate Health Dept. IPAC Ironer: Nimco Simms 10/26/2021 10/26/2021 022 10:27 AM EDT COVID 19 (Confirmed) 11/11/2021 11/11/2021 022 5:23 AM EDT COVID-19 Rule-Out 05/16/2022 05/16/2022 05/16/2022 11:05 PM EDT Assessment Noted Time A fall risk assessment has been complete d for the patient 06/28/2021 10:46 AM EDT documented as of this encounter Care Teams Inside Sales Specialist Relationship Specialty Start Date End Date Tyler Castelan MD [address] [place] [address] PCP - General 07/02/20 08/07/21 Benjie Quezada MD [address] [facility] [address] [place] [address] PCP - General Family Medicine 08/08/21 08/30/21 Tamika Loomis, MANAGER ASSURANCE [address] [place] [phone] PCP - General Family Medicine 08/31/21 09/14/21 Maegan Bermeo MD [address] [place] [address] PCP - General Family Medicine 09/15/21 Audra Wahl LPN [employer] [place] [address] TCM Nurse 09/27/21 10/27/21 Jessa Park LPN [employer] [place] [address] Registered Nurse 05/26/22 05/26/22 documented as of this encounter
--- OUTSIDE RECORDS SUMMARY | 2024-07-28 14:46 | XMS_ITS | Clinical Summary ---
Author Organization [facility] Address [address] [place] [address] Care Team Providers Care Sponge Maker Name Role Phone Maegan Bermeo MD Primary Care Provider [phone] Allergies Active Allergy Reactions Criticality Noted Date Comments Levofloxacin Hives Medium 07/20/2018 Meperidine Nausea Low 05/24/2017 Medications * This document contains information received from the source organization and may not represent a complete record from that organization. apixaban (Eliquis) 5 MG tablet Take 1 tablet (5 mg total) by mouth 2 (two) times a day. 60 tablet 1 3 Active DULoxetine (Cymbalta) [address] capsuleIndications :Diabetic polyneuropathy associated with type 2 diabetes mellitus Take 1 capsule (60 mg total) by mouth 1 (one) time each day. Do not crush or chew. 90 capsule 3 Active metoprolol succinate XL (Toprol-XL) 50 MG 24 hr tabletIndications: Essential (primary) hypertension Take 1 tablet (50 mg total) by mouth 1 (one) time each day. Do not crush or chew. 90 tablet 1 3 Active nortriptyline (Pamelor) 50 MG capsuleIndications :Insomnia, unspecified type Take 1 capsule (50 mg total) by mouth every night. 30 capsule 3 Active simvastatin (Zocor) 20 MG tabletIndications: Mixed hyperlipidemia Take 1 tablet (20 mg total) by mouth every night. 30 tablet 3 Active furosemide (Lasix) 80 MG tablet Take 1 tablet (80 mg total) by mouth 2 (two) times a day. 60 tablet 1 3 Active acetaminophen (Tylenol) 500 MG tablet Take 1,000 mg by mouth every 4 (four) hours if needed. PRN FOR PAIN Active ciprofloxacin (Cipro XR) 500 MG 24 hr tablet Take 500 mg by mouth 2 (two) times a day. Do not crush, chew, or split. Active meclizine (Antivert) 25 MG tablet Take 25 mg by mouth 3 (three) times a day if needed for dizziness. PRN Active nystatin (Mycostatin) cream APPLY TOPICALLY TO THE AFFECTED AREA TWICE DAILY FOR 7 DAYS 3 Active polyethylene glycol (Miralax) 17 g packet Take 17 g by mouth 1 (one) time each day. Active Active Problems Problem Noted Date Diagnosed Date Anasarca 05/20/2022 Acute on chronic congestive heart failure, unspecified heart failure type 05/17/2022 Obesity (BMI 35.0-39.9 without comorbidity) 04/20 Acute on chronic heart failu re with preserved ejection fraction 05/16/2022 Overview (05/17/2022): -patient presents with chief complaint of weakness and fatigue as well as bilateral lower extremity edema over the past few weeks -patient also noted to be hypoxic at home, and ultimately required 4 L O2 to maintain appropriate sats in the ED -workup in the ED showed BNP in over 9000 which is elevated above patient's baseline of around 0500-2294 -most recent echo obtained in October 2021 showing LVEF greater than 50% -current medications include Lasix 20 mg PO twice daily, losartan 50 mg daily, metoprolol succinate 50 mg daily -she did receive 40 mg IV Lasix in the ED -family Medicine consulted for admission for acute exacerbation of CHF PLAN: -admit to acute on tele under Dr. Bryant -ECHO ordered -continue diuresis with goal of net-1-2L daily -strict I&O -continue home metoprolol in setting of acute CHFE, hold home losartan in setting of WALE, hold home lasix while using IV diuresis WALE (acute kidney injury) 05/16/2022 Overview (05/17/2022): -Cr elevated to 1.26 (baseline 0.6-0.7) on admission -suspect pre-renal etiology given fluid overloaded state PLAN: -urine lytes -I&Os -daily labs Osteolysis 05/16/2022 Overview (05/17/2022): -did show findings consistent with an old fracture at T12 from a previous fall with subsequent erosive changes that have progressed from prior imaging in October 2021 -interval erosion to the endplate of L1 noted to possibly represent diskitis versus osteomyelitis -patient complaining of back but pain at time of arrival to [facility] PLAN: -pain control initially with p.r.n. Tylenol and oxycodone 5 mg -will continue to monitor -can consider MRI with development of symptoms -may warrant Ortho Spine consult in a.m. At high risk for falls 03/03/2022 Pleural effusion 11/05/2021 Overview (11/09/2021): Right sided effusion Home lasix 11/08: AM chest x-ray reviewed with no concerns Chronic right-sided heart failure 10/31/2021 Overview (11/09/2021): Echo September 2021 with RVSP 92, severe dilation Cirrhosis could be contributing Echo ordered 10/31: LVEF >50%; RSVP 68 (down from 92 on last ECHO) Home meds restarted Thrombocytosis 10/28/2021 Overview (11/01/2021): Monitor/trend COVID 10/27/2021 Overview (11/11/2021): Out of isolation Lesion of uterus 10/27/2021 Overview (10/27/2021): Noted on imaging Hypodense lesion along the fundus and heterogenous lesion along the anterior wall Follow up as outpatient Fall 10/27/2021 Overview (11/01/2021): Admit SGT Closed fracture of T12 vertebra 10/26/2021 Overview (11/09/2021): - Acute obliquely oriented fracture through the T12 vertebral body extending into the T12-L1 disc space with resultant widening of the T12-L1 disc space, as well as acute fracture involving the left L1 superior articular facet - Ortho spine consulted - Uprights stable - No bracing. T/L precautions. No bending, lifting greater than 10 lb, or twisting. Okay to ambulate and be activity as tolerated. No trapeze. -T and L precautions, no lying flat supine, okay to lay on side Follow up with Glory Mcgee on 12/01 Acute respiratory failure with hypoxia Overview (05/17/2022): -pt noted to be hypoxic at home and arrived on 2L O2 supplementation -was able to be weaned to RA briefly in ED but subsequently became hypoxic to low 80s requiring 4L supplementation to be restarted -CXR without acute findings, showing chronic cardiomegaly and signs consistent with congestion PLAN: -wean O2 as tolerated -continue diuresis in setting of CHFE Chronic atrial fibrillation 10/11/2021 Overview (05/17/2022): -home regimen of Metoprolol succinate 50 mg daily and eliquis 5mg BID PLAN: -telemetry -continue eliquis -hold metoprolol in setting of CHFE Right ventricular dilation 10/11/2021 Overview (11/06/2021): Noted on ECHO following recent hospitalization Patient has outpatient Cardiology follow up Continue volume management with diuresis Morbid obesity with body mass index (BMI) of 40. 0 or higher 06/06/2021 Overview (05/17/2022): -BMI 39.54 -Complicates care -Complicates mobility Diabetic polyneuropathy asso ciated with type 2 diabetes mellitus 06/06/2021 Overview (11/01/2021): No home meds Risk for falls Generalized anxiety disorder 03/04/2021 Overview (05/17/2022): -continue home Cymbalta 60mg daily and nortriptyline 50mg nightly Mixed hyperlipidemia 04/23/2019 Overview (05/17/2022): -continue home simvastatin 20mg nightly Type 2 diabetes mellitus wit h diabetic polyneuropathy, without long-term current use of insulin 05/24/2017 Overview (05/17/2022): -most recent A1c 5.5% in Feb 2022 -currently takes metformin 1000mg BID and januvia 100mg daily PLAN: -admit on SSI Essential (primary) hypertension 05/24/2017 Overview (05/17/2022): -currently taking lasix 20mg BID, losartan 50mg daily, metoprolol succinate 50mg daily -hypo to normotensive on admission -See CHF exacerbation problem Resolved Problems Problem Noted Date Diagnosed Date Resolved Date At high risk for falls 12/15/202112/15 Frequent UTI 10/28/2021 10/30/2021 Overview (10/28/2021): Continue home abx; last dose 10/28 Anemia of chronic disease 10/27/2021 Overview (10/27/2021): Monitor Hypoalbuminemia 10/27/2021 10/29/2021 Overview (10/27/2021): Resume diet Hernia of abdominal wall 10/27/202112/2021 Overview (10/27/2021): Noted on imaging; left Fat containing Sinus mucosal thickening 10/27/202111/2021 Overview (10/27/2021): Noted on imaging Follow up as outpatient as needed Lumbar facet joint pain 10/26/202110/20 Overview (10/29/2021): - Acute obliquely oriented fracture through the T12 vertebral body extending into the T12-L1 disc space with resultant widening of the T12-L1 disc space, as well as acute fracture involving the left L1 superior articular facet - Ortho spine consulted - Uprights stable - follow-up in 7-10 days with repeat thoracolumbar x-rays with Dr. Epps. - No bracing. T/L precautions. No bending, lifting greater than 10 lb, or twisting. Okay to ambulate and be activity as tolerated. No trapeze. Rhabdomyolysis 10/26/2021 10/29/2021 Overview (10/29/2021): CK 484 on arrival to the ED. HLIVF Repeat lab WNL Staghorn calculus 10/26/2021 10/29/2021 Overview (10/26/2021): R renal staghorn calculus, Cr normal. Cholelithiasis 10/26/2021 10/29/2021 Overview (10/26/2021): Cholelithiasis notable on CT abdomen pelvis with mildly elevated alk-phos, but no TTP in RUQ or symptoms. At high risk for falls 10/11/202110/27 Hypoglycemia secondary to sulfonylurea 09/24/2021 10/11/2021 Overview (09/26/2021): DDx: sulfonyurea use, systemic illness, decreased appetite/dehydration, adrenal insufficiency, hepatic failure, renal failure, sepsis, insulinoma -Recently treated with 10 days of Cefdinir for acute cystitis -ED WBC (21.85), hypoglycemia, K (2.8), Cl (96), BNP (2300), UA (Gram neg rods) & Hypotensive - Significant Imaging in the ED: CXR on 09/24 showed Increased ground glass opacities are nonspecific and may represent infection and/or edema. PLAN: -Pending: BCx2 (NGD2), MRSA swab, Procal, Lactate, Urine culture (Negative Rods)(Ceftriaxone), C Peptide (1.66) -Metformin, Sulfonurea, Januvia all held in setting of hypoglycemia Hypokalemia 09/24/2021 10/27/2021 Overview (09/26/2021): -Initial potassium of 2.8 (Tx: 40 mEq of IV and 40 mEq of PO potassium) -Will continue to monitor with AM labs and replete as needed Bilateral edema of lower extremity 09/24/2021 10/27/2021 Overview (09/26/2021): Bilateral lower extremity edema (2+) Patient received 40 mg of Lasix in the ED + 20 mg IV after with some improvement BNP to 2300 PLAN: - ECHO to evaluate for CHF - diurese as needed for improvement; will give 20mg IV lasix bid - Strict I's and O's Localized edema 06/28/2021 07/22/2021 Anxiety 05/24/2017 03/04/2021 Insomnia 05/24/2017 10/27/2021 Post herpetic neuralgia 05/24/201702/19 Rosacea 05/24/2017 10/27/2021 Immunizations Immunization Administration Dates Next Due Influenza Vaccine, Quadrivalent, Adjuvanted 12/20 Influenza, Unspecified 01/07/2021 Influenza, high-dose, quadrivalent 01/07/2020 Influenza, injectable, quadrivalent, preservativ e free 12/24/2017 Family History Medical History Relation Name Comments Thyroid cancer Daughter Diabetes type II Father Atrial fibrillation Mother Colon cancer Mother Relation Name Status Comments Daughter Father Mother Social History Tobacco Use Types Packs/Day Years Used Date Smoking Tobacco: Never Smokeless Tobacco: Never Alcohol Use Standard Drinks/Week Comments Never 0 (1 standard drink = 0.6 oz pur e alcohol) PHQ-2 Answer Date Recorded Patient Health Questionnaire-2 Score 2 06/07/2022 CAGE ASSESSMENT Answer Date Recorded Cage unable to access Not on file 05/17/2022 Cage max number of drinks Not on file 2022 Cage Beverages a week Not on file 05/17/2022 Have you ever felt you should CUT down on your d rinking? 0 05/17/2022 Have you been ANNOYED by people criticizing your drinking? 0 05/17/2022 Have you felt GUILTY about your drinking? 0 05/17/2022 Have you had a drink first t ken in the morning (EYE-STRIPER SPRAY GUN) to steady your nerves or to get rid of a hangover? 0 05/17/2022 CAGE Questionnaire Score 0 023 PHQ-2A Answer Date Recorded Patient Health Questionnaire-2 Score 2 06/07/2022 Comments No Sex and Gender Information Value Date Recorded Sex Assigned at Female 05/17/2022 6:38 PM EDT Legal Sex Female 6:47 PM EDT Gender Identity Female 05/17/2022 6:38 PM EDT Sexual Orientation Straight 05/17/2022 6: 38 PM EDT Last Filed Vital Signs Vital Sign Reading Time Taken Comments Blood Pressure 118/75 06/07/2022 10:55 AM EDT Pulse 75 06/07/2022 10:55 AM EDT Temperature 36.7 C (98 F) 06/07/2022 10:55 AM EDT Respiratory Rate 19 06/07/2022 10:5 5 AM EDT Oxygen Saturation 97% 06/07/2022 10: 55 AM EDT patient is on 2 litters of oxygen Inhaled Oxygen Concentration - - Weight 112 kg (246 lb 4.8 oz) 06/07/2022 10:55 AM EDT Height 165.1 cm (5' 5 ) 06/07/2022 10:5 5 AM EDT Body Mass Index 40.99 06/07/2022 10:55 AM EDT Plan of Treatment Health Maintenance Due Date Last Done Comments [facility]-Bone Density Scan 1955 [facility]-Medicare Annual Wellness (AWV) 1955 [facility]-/Child/Adol SDOH Screenings 1955 Diabetes: Dental Exam 08/20/1963 [facility]- SDOH Screenings 08/20/1971 [facility]-Adult SDOH Screenings 08/20/1971 [facility]-DTaP,Tdap,and Td Vaccines (1 - Tdap) 1972 [facility]-Pneumococcal Vaccine: 50+ Years (1 of 2 - PCV) 1972 CT Colonography 1998 Colonoscopy 1998 FIT 1998 FOBT 1998 Sigmoidoscopy 1998 [facility]-Zoster Vaccines (1 of 2) 08/20/2003 [facility]-RSV Vaccine: 60+ Years or (1 - Risk 60-74 years 1-dose series) 2013 [facility]-Breast Cancer Screening 01/20/2021 01/20/2019 [facility]-DNA 02/16/2021 02/16/2018 [facility]-Colorectal Cancer Screening 02/16/2021 [facility]-Diabetes: Hemoglobin A1C 08/29/202212/2022, 10/26/2021, 08/31/2021, Additional history exists [facility]-Depression Screening 06/08/2023 06/07/2022 [facility]-EWNEI-66 Vaccine ( season) 2023 01/05/2022, 01/07/2021, 06/11/2020, Additional history exists [facility]-Influenza Vaccine (Season Ended) 2024 01/07/2021, 01/07/2021, 01/07/2020, Additional history exists [facility]-Hepatitis C Screening Completed 09/24/2021 [facility]-Obesity Intervention Completed 023, 04/03/2022, 03/01/2022, Additional history exists HPV Vaccines Aged Out No longer eligi ble based on patient's age to complete this topic [facility]-HIB Vaccines Aged Out No longer e ligible based on patient's age to complete this topic [facility]-Hepatitis A Vaccines Aged Out No longer eligible based on patient's age to complete this topic [facility]-IPV Vaccines Aged Out No longer e ligible based on patient's age to complete this topic [facility]-Rotavirus Vaccines Aged Out No lo nger eligible based on patient's age to complete this topic Procedures Procedure Name Priority Date/Time Associated Diagnosis Comments HEMOGLOBIN A1C Routine 03/01/2022 8:45 AM EST Essential (primary) hypertension Uncontrolled type 2 diabetes mellitus with hyperglycemia (CMS/HCC) HEPATITIS C ANTIBODY - ED W/REFLEX TO HCV QUANT PCR STAT 09/24/2021 7:52 AM EDT MAMMOGRAPHY EXTERNAL RESULTS 01/20/2019 LAB COLOGUARD COLON CANCER SCREEN Routine 02/16/2018 8:42 AM EST from Last 3 Months or Most Recently Relevant to Health Maintenance Results * Hemoglobin A1c (03/01/2022 8:45 AM EST) Hemoglobin A1c 5.5 <5.7 % 03/01/2022 1:22 PM EST [facility] Blood Venous blood specimen / Unknown Venipuncture / Unknown 03/01/2022 8:45 AM EST 03/01/2022 8:45 AM EST Narrative [facility] - 03/01/2022 1:22 PM EST HA1C Interpretive Data: Diagnosis of Diabetes: Diabetic > or = 6.5% Pre-diabetic 5.7 to 6.4% Non-diabetic < or = 5.6% Glycemic Targets for Type I and Type II Diabetics: Non- Adults <7.0% Adults <6.0% Children and Adolescents <7.5% Source: [place] [employer]. Standards of medical care in diabetes,2017. Diabetes Care.2017:40 (suppl 1):S1-S135. HbA1c assay performed by an ion-exchange chromatography method that is certified traceable to the DCCT. us Maegan Bermeo MD LAB BLOOD ORDERABLES Final Re sult Performing Organization Address City/[facility]/ZIP Co de Phone Number [facility] [address] [place] [address] * Hepatitis C Antibody - ED (09/24/2021 7:52 AM EDT) Hepatitis C Antibody Negative Negative 09/24/2021 9:51 AM EDT [facility] Blood Venous blood specimen / Unknown Venipuncture / Unknown 09/24/2021 7:52 AM EDT 09/24/2021 8:10 AM EDT Farida Sharif MD LAB BLOOD ORDERABLES Final Res ult Performing Organization Address City/[facility]/ZIP Co de Phone Number [facility] [address] [place] [address] * MAMMOGRAPHY EXTERNAL RESULTS (01/20/2019) Anatomical Region Laterality Modality Mammography Narrative 01/20/2019 Ordered by an unspecified provider. us External Provider IMG BI PROCEDURES Final Result * (ABNORMAL) Cologuard (02/16/2018 8:42 AM EST) Cologuard Positive(Y) [employer] 02/16/2018 8:42 AM EST us Historical Provider LAB MOLECULAR DIAGNOSTICS ORDERABLES Final Result [employer] from Last 3 Months or Most Recently Relevant to Health Maintenance Insurance [facility] [place] [address] Advance Directives * DNR/DNI (Latest Code Status on File) Date Activated Date Inactivated Comments 05/17/2022 5:18 AM 05/25/2022 7:26 PM Question Answer Comments DNR determined on/before admission date? Yes Patient has decision-making capacity? Yes * Full Code Date Activated Date Inactivated Comments 10/26/2021 1:41 PM 11/11/2021 3:06 PM Question Answer Comments Patient has decision-making capacity? Yes * DNR/DNI Date Activated Date Inactivated Comments 09/24/2021 3:32 PM 09/26/2021 7:58 PM Question Answer Comments DNR determined on/before admission date? Yes Patient has decision-making capacity? Yes * Full Code Date Activated Date Inactivated Comments 09/24/2021 3:01 PM 09/24/2021 3:32 PM Question Answer Comments Patient has decision-making capacity? Yes Care Teams Sponge Maker Relationship Specialty Start Date End Date Maegan Bermeo MD [address] [facility] [place] [id number] PCP - General Family Medicine 09/15/21
--- OUTSIDE RECORDS SUMMARY | 2024-07-28 14:46 | XMS_ITS | Encounter Summary ---
Author Organization Healthcare Address [address] [place] [address] Care Team Providers Care Trust Accounts Supervisor Name Role Phone Jan Castelan MD Primary Care Provider [phone] Benjie Quezada MD Primary Care Provider Tamika Loomis APRN Primary Care Provider [phone] Maegan Bermeo MD Primary Care Provider [phone] Audra Wahl ABLE BODIED SEAMAN Unavailable Unavailab Jessa Jimenez ABLE BODIED SEAMAN Unavailable Unavailable Reason for Visit * Reason Comments Med Refill Encounter Details Date Type Department Care Team (Late st Contact Info) Description 07/27/2020 Refill Family and Community Medicine [address] [place] [address] Jan Castelan MD [address] [place] [address] Social History Tobacco Use Types Packs/Day Years Used Date Smoking Tobacco: Former Comments Unknown Sex and Gender Information Value Date Recorded Sex Assigned at Female 05/17/2022 6:38 PM EDT Legal Sex Female 6:47 PM EDT Gender Identity Female 05/17/2022 6:38 PM EDT Sexual Orientation Straight 05/17/2022 6: 38 PM EDT documented as of this encounter Miscellaneous Notes * Telephone Encounter - María Chaudhari, PharmD - 07/29/2020 7:49 AM EDT Rx sent to [facility] for Nortriptyline 50mg 1 at bedtime #30 + 1 refill. Please make appt forfurther refills. Patient was to return to clinic in 3mos after last visit in June. documented in this encounter Plan of Treatment Not on file documented as of this encounter Visit Diagnoses Not on filedocumented [...] and sent to appropriate Health Dept. [facility] Pulmonary Function Technician: Brandiedon Demi 10/26/2021 10/26/2021 022 10:27 AM EDT COVID 19 (Confirmed) 11/11/2021 11/11/2021 022 5:23 AM EDT COVID-19 Rule-Out 05/16/2022 05/16/2022 05/16/2022 11:05 PM EDT documented as of this encounter Care Teams Trust Accounts Supervisor Relationship Specialty Start Date End Date Jan Castelan MD [address] [place] [id number] PCP - General 07/02/20 08/07/21 Benjie Quezada MD [address] [place] [address] PCP - General Family Medicine 08/08/21 08/30/21 Tamika Loomis APRN [address] [place] [address] PCP - General Family Medicine 08/31/21 09/14/21 Maegan Bermeo MD [address] [place] [address] PCP - General Family Medicine 09/15/21 Audra Wahl LPN [employer] [place] [address] TCM Nurse 09/27/21 10/27/21 Jessa Park LPN [employer] [place] [address] Registered Nurse 05/26/22 05/26/22 documented as of this encounter
--- OUTSIDE RECORDS SUMMARY | 2024-07-28 14:46 | XMS_ITS | Encounter Summary ---
Author Organization Healthcare Address [address] [place] [address] Care Team Providers Care Stack Attendant Name Role Phone Maegan Bermeo MD Primary Care Provider [phone] Jessa Park LPN Unavailable Unavailable Reason for Visit * Reason Comments Med Refill Encounter Details Date Type Department Care Team (Late st Contact Info) Description 11/26/2021 Refill Family and Community Medicine [address] [place] [address] Benjie Quezada MD [address] [place] [address] Social History Tobacco Use Types Packs/Day Years [...] PM EDT documented as of this encounter Plan of Treatment Not on file documented as of this encounter Visit Diagnoses Not on filedocumented in this encounter Additional Health Concerns Infection Onset Date Last Indicated Resolved Time COVID 19 (Confirmed) 11/11/2021 11/11/202112/02/2 022 5:23 AM EDT COVID-19 Rule-Out 05/16/2022 05/16/2022 05/16/2022 11:05 PM EDT Assessment Noted Time A fall risk assessment has been complete d for the patient 10/11/2021 11:31 AM EDT documented as of this encounter Care Teams Stack Attendant Relationship Specialty Start Date End Date Maegan Bermeo MD [address] [place] [id number] PCP - General Family Medicine 09/15/21 Jessa Park LPN [employer] [place] [address] Registered Nurse 05/26/22 05/26/22 documented as of this encounter
--- OUTSIDE RECORDS SUMMARY | 2024-07-28 14:46 | XMS_ITS | Encounter Summary ---
Author Organization [facility] Address [address] [place] [address] Care Team Providers Care Doctor Of Osteopathy Name Role Phone Jan Castelan MD Primary Care Provider [phone] Benjie Quezada MD Primary Care Provider Tamika Loomis APRN Primary Care Provider [phone] Maegan Bermeo MD Primary Care Provider [phone] Audra Wahl SHOP WELDER Unavailable Unavailab Jessa Jimenez SHOP WELDER Unavailable Unavailable Reason for Visit * Reason Comments Med Refill Encounter Details Date Type Department Care Team (Late st Contact Info) Description 12/28/2020 Refill Family and Community Medicine [address] [place] [address] Jan Castelan MD [address] [place] [address] Social History Tobacco Use Types Packs/Day Years Used Date Smoking Tobacco: Former Comments Unknown Sex and Gender Information Value Date Recorded Sex Assigned at Female 05/17/2022 6:38 PM EDT Legal Sex Female 6:47 PM EDT Gender Identity Female 05/17/2022 6:38 PM EDT Sexual Orientation Straight 05/17/2022 6: 38 PM EDT documented as of this encounter Miscellaneous Notes * Telephone Encounter - Arely Trevino MA - 01/03/2021 9:08 AM EST Per patient she is not taking documented in this encounter Plan of Treatment [...] completed and sent to appropriate Health Dept. [facility] Gate Attendant: Nimco Demi 10/26/2021 10/26/2021 022 10:27 AM EDT COVID 19 (Confirmed) 11/11/2021 11/11/2021 022 5:23 AM EDT COVID-19 Rule-Out 05/16/2022 05/16/2022 05/16/2022 11:05 PM EDT documented as of this encounter Care Teams Doctor Of Osteopathy Relationship Specialty Start Date End Date Jan Castelan MD [address] [place] [address] PCP - General 07/02/20 08/07/21 Benjie Quezada MD [address] [facility] [address] [place] [address] PCP - General Family Medicine 08/08/21 08/30/21 Tamika Loomis APRN [address] [facility] [address] [place] [address] PCP - General Family Medicine 08/31/21 09/14/21 Maegan Bermeo MD [address] [place] [address] PCP - General Family Medicine 09/15/21 Audra Wahl LPN [employer] [place] [address] TCM Nurse 09/27/21 10/27/21 Jessa Park LPN [employer] [place] [address] Registered Nurse 05/26/22 05/26/22 documented as of this encounter
--- OUTSIDE RECORDS SUMMARY | 2024-07-28 14:46 | XMS_ITS | Encounter Summary ---
Author Organization Healthcare Address [address] [place] [address] Care Team Providers Care Solar Consultant Name Role Phone Jan Castelan MD Primary Care Provider [phone] Benjie Quezada MD Primary Care Provider Tamika Loomis APRN Primary Care Provider [phone] Maegan Bermeo MD Primary Care Provider [phone] Audra Wahl TECHNOLOGY MANAGER Unavailable Unavailab Jessa Jimenez TECHNOLOGY MANAGER Unavailable Unavailable Reason for Visit * Reason Comments Med Refill Encounter Details Date Type Department Care Team (Late st Contact Info) Description 02/22/2021 Refill Family [facility] Community Medicine [address] [place] [address] Jan Castelan MD [address] [place] [address] Uncontrolled type 2 diabetes mellitus with hyperglycemia ([facility]) Social History Tobacco Use Types Packs/Day Years [...] Telephone Encounter - Arely Trevino MA - 03/04/2021 3:05 PM EST Patient informed. Dems verified. Stated understanding. * Telephone Encounter - Paige Scanlon - 02/25/2021 1:52 PM EST Per protocol, 1 medication(s), metformin, have been refused due to: Refill requested too soon sent 02/21 documented in this encounter Plan of Treatment Not on file documented as of this encounter Visit Diagnoses Diagnosis Uncontrolled type 2 diabetes mellitus with hyperglycemia (CMS/HCC) documented in this encounter Additional Health Concerns [...] and sent to appropriate Health Dept. IPAC Cna Instructor: Nimco Simms 10/26/2021 10/26/2021 022 10:27 AM EDT COVID 19 (Confirmed) 11/11/2021 11/11/2021 022 5:23 AM EDT COVID-19 Rule-Out 05/16/2022 05/16/2022 05/16/2022 11:05 PM EDT documented as of this encounter Care Teams Solar Consultant Relationship Specialty Start Date End Date Jan Castelan MD [address] [place] [id number] PCP - General 07/02/20 08/07/21 Benjie Quezada MD [address] [facility] [address] [place] [phone] PCP - General Family Medicine 08/08/21 08/30/21 Tamika Loomis APRN [address] [place] [address] PCP - General Family Medicine 08/31/21 09/14/21 Maegan Bermeo MD [address] [place] [address] PCP - General Family Medicine 09/15/21 Audra Wahl LPN [employer] [place] [address] TCM Nurse 09/27/21 10/27/21 Jessa Park LPN [employer] [place] [address] Registered Nurse 05/26/22 05/26/22 documented as of this encounter
[2024-07-28 15:11] LABS: Albumin Level 3.9 g/dl (3.5-5.0); Chloride 100 mmol/L (98-107); Sodium 135 mmol/L (136-145)
[2024-07-28 15:12] LABS: Potassium 4.6 mmoL/L (3.5-5.1)
[2024-07-28 15:14] LABS: Alanine Aminotransferase 22 U/L (12-78); Albumin/Globulin Ratio 0.8 (1.1-1.8); Alkaline Phosphatase 155 U/L (38-126); Anion Gap 10.6 mEq/L (5-15); Aspartate Amino Transferase 31 U/L (14-36); Bilirubin,Total 0.6 mg/dl (0.2-1.3); Blood Urea Nitrogen 44 mg/dl (7-17); Carbon Dioxide 29 mmol/L (22.0-30.0); Estimated Glomerular Filt Rate 49 ml/min (>60); GFR (African American) 59 ML/MIN (>60); Globulin 4.6 g/dL (1.3-3.2); Total Protein,Serum 8.5 g/dl (6.3-8.2)
[2024-07-28 15:15] LABS: Calcium 9.6 mg/dl (8.4-10.2); Glucose 183 mg/dl (74-100)
--- NOTE | 2024-07-28 15:15 | CT_ITS ---
PROCEDURE INFORMATION: Exam: CTA Abdominal Aorta and Bilateral Lower Extremities (Run-off) With Contrast Exam date and time: 07/28/2024 3:37 PM Age: 68 years old Clinical indication: Other: Diminished pulses and nonhealing ulcer. TECHNIQUE: Imaging protocol: Computed tomographic angiography of the of the abdominal aorta, pelvis and bilateral lower extremities with contrast. 3D rendering (Not supervised by radiologist): MIP and/or 3D reconstructed images were created by the technologist. Radiation optimization: All CT scans at this facility use at least one of these dose optimization techniques: automated exposure control; mA and/or kV adjustment per patient size (includes targeted exams where dose is matched to clinical indication); or iterative reconstruction. Contrast material: ISOVUE; Contrast volume: 120 ml; Contrast route: INTRAVENOUS (IV); COMPARISON: CT ABDOMEN PELVIS W CON 03/09/2024 6:21 PM FINDINGS: Aorta: Diffuse aortic atherosclerosis is present but no aneurysm or significant stenosis is identified. Celiac trunk and mesenteric arteries: No occlusion or significant stenosis. Renal arteries: No occlusion or significant stenosis. Right iliac arteries: No occlusion or significant stenosis. Right femoral/popliteal arteries: No occlusion or significant stenosis. Right infrapopliteal arteries: There is 2 vessel runoff at the right ankle via the anterior and posterior tibial arteries. Left iliac arteries: No occlusion or significant stenosis. Left femoral/popliteal arteries: No occlusion or significant stenosis. Left infrapopliteal arteries: The left anterior tibial artery is small caliber vessel that obliterates in the mid calf. The peroneal artery also obliterates above the level of the ankle on the left, there is single-vessel runoff to the left foot via the posterior tibial artery. Liver: The liver is cirrhotic. There is an indeterminate 2.3 cm lesion in the left lobe. Gallbladder and biliary ducts: The gallbladder is full of multiple gallstones. Pancreas: Unremarkable. No mass. No ductal dilation. Spleen: Normal. No splenomegaly. Adrenal glands: Normal. No mass. Kidneys and ureters: There is a 22 mm stone in the right renal collecting system. No hydronephrosis hydroureter or urolithiasis is noted. Stomach and bowel: Unremarkable. No obstruction. No mucosal thickening. Appendix: No evidence of appendicitis. Urinary bladder: The bladder is moderately distended. Reproductive: Unremarkable as visualized. Intraperitoneal space: Unremarkable. No free air. No significant fluid collection. Lymph nodes: No lymphadenopathy. Bones/joints: No acute fracture. No dislocation. Soft tissues: There is broad-based attenuation of the anterior abdominal wall musculature. The patient is status post mesh ventral hernia replacement in the anterior abdomen. There is a small fat containing hernia just below the mesh. IMPRESSION: 1. In the right leg, there is diffuse atherosclerosis without significant stenosis, there is 2 vessel runoff at the ankle via the anterior and posterior tibial arteries, the peroneal artery obliterates above the level of the ankle. 2. In the left leg again there is mild diffuse atherosclerosis, the left anterior tibial artery obliterates in the mid calf in the peroneal artery just above the ankle with single-vessel runoff to the foot via the posterior tibial artery. 3. Prominent nonobstructing right renal stone. 4. Cirrhotic liver with an indeterminate 2.3 cm lesion in the left lobe, this was not previously reported, recommend MRI with gadolinium for further characterization to exclude neoplasm. 5. Many small stones are seen in the gallbladder however no wall thickening or pericholecystic fluid to suggest acute cholecystitis is noted. 6. Broad-based attenuation of the anterior abdominal wall musculature, status post ventral hernia repair with mesh in the anterior pelvis, small fat containing hernia present inferior to the mesh. 7. Moderately distended bladder.
[2024-07-28 15:20] LABS: C-Reactive Protein 25.4 mg/L (0-4)
[2024-07-28 15:30] LABS: Basophils # 0.1 K/mm3 (0-0.2); Basophils % 1.1 % (0.1-2.0); Eosinophils # 0.4 Kmm3 (0.0-0.4); Hematocrit 40.5 % (37.0-47.0); Immature Granulocytes # 0.04 10^3uL; Immature Granulocytes % 0.3 %; Lymphocytes # 1.5 K/mm3 (0.7-4.5); Lymphocytes % 11.9 % (10-50); Mean Corpuscular HGB Conc 29.6 g/dL (31.8-35.4); Mean Corpuscular Hemoglobin 22.2 pg (27.0-31.2); Mean Corpuscular Volume 74.9 fl (81-99); Mean Platelet Volume 9.7 fl (7.4-10.4); Monocytes # 1.1 K/mm3 (0.1-1.0); Neutrophils # 9.2 K/mm3 (1.8-7.8); Neutrophils % 74.7 % (37.0-80.0); Nucleated Red Blood Cells # 0 10^3/uL; Nucleated Red Blood Cells % 0 %; Platelet Count 625 K/mm3 (142-424); Red Blood Count 5.41 M/mm3 (4.20-5.40); Red Cell Distribution Width 22.2 % (11.5-17.5); Red Cell Distribution Width-SD 57.1 fL; White Blood Count 12.3 K/mm3 (4.8-10.8)
[2024-07-28] MEDS: SODIUM CHLORIDE 0.9% 10ML SYR (RAD ONLY) 10 ML IV (15:40)
[2024-07-28] MEDS: IOPAMIDOL-370 (76%);100ML BOTTLE 120 ML IV (15:47)
[2024-07-28] MEDS: 0.9 % SODIUM CHLORIDE 50 ML VIAL 100 ML IV (15:47)
[2024-07-28 16:13] LABS: Erythrocyte Sedimentation Rate 5 mm/hr (0-30)
== END 2024-07-28 23:59 | disposition home or self-care (01) ==
PROVIDERS: Nurse Practitioner; PCP Internal Medicine; Visit Provider Internal Medicine
DX: R09.89 Other specified symptoms and signs involving the circulatory and respiratory systems (principal); E11.628 Type 2 diabetes mellitus with other skin complications; L08.9 Local infection of the skin and subcutaneous tissue, unspecified; L03.032 Cellulitis of left toe; R20.9 Unspecified disturbances of skin sensation; R23.8 Other skin changes; M20.40 Other hammer toe(s) (acquired), unspecified foot; M20.11 Hallux valgus (acquired), right foot; M20.12 Hallux valgus (acquired), left foot; L84 Corns and callosities; L97.509 Non-pressure chronic ulcer of other part of unspecified foot with unspecified severity; R68.89 Other general symptoms and signs; E11.621 Type 2 diabetes mellitus with foot ulcer; I27.20 Pulmonary hypertension, unspecified
CPT/HCPCS: 36415; 75635; 80053; 85025; 85651; 86140; Q9967

== ENCOUNTER 2024-08-11 11:37 | Outpatient (CLI) | payer MEDICARE, BC, SELFPAY ==
--- OUTSIDE RECORDS SUMMARY | 2024-08-11 08:20 | XMS_ITS | Encounter Summary ---
Author Organization [facility] Address [address] [place] [address] Care Team Providers Care Manager Sap Name Role Phone Maegan Bermeo MD Primary Care Provider [phone] Reason for Referral * Other Medical (Routine) - Pending Review Specialty Diagnoses / Procedures Referred By Contac t Referred To Contact Diagnoses Ulcer of toe of left foot, with fat layer exposed (CMS/HCC) Procedures Debridement Raimundo Hatch DPM [address] [address] Phone: tel: fax: Referral ID Status Reason Start Date Expiration Date V isits Requested Visits Authorized [id number] Pending Review 08/11/2024 02/10/2026 1 1 * Other Medical (Routine) - Pending Review Specialty Diagnoses / Procedures Referred By Contac t Referred To Contact Diagnoses Ulcer of toe of left foot, with fat layer exposed (CMS/HCC) Procedures Debridement Raimundo Hatch DPM [address] [facility] [address] [place] [address] Phone: tel: fax: Referral ID Status Reason Start Date Expiration Date V isits Requested Visits Authorized [id number] Pending Review 08/11/2024 02/10/2026 1 1 Reason for Visit * Reason Comments Wound Check * Consultation (Routine) - Closed Specialty Diagnoses / Procedures Referred By Contallison t Referred To Contact Podiatry Diagnoses Type 2 diabetes mellitus with foot ulcer (CODE) (CMS/HCC) Non-pressure chronic ulcer of other part of unspecified foot with unspecified severity (CMS/HCC) Type 2 diabetes mellitus with other skin complications (CMS/HCC) Local infection of the skin and subcutaneous tissue, unspecified Luiz Sage, DO [address] [place] [address] [place] [address] Phone: tel: fax: Referral ID Status Reason Start Date Expiration Date V isits Requested Visits Authorized [id number] Closed Specialty Services Required 07/26/2024 01/25/2026 1 1 Encounter Details Date Type Department Care Team (Latest Contact Info) Description 08/11/2024 8:20 AM EDT [facility] [address] Floor [address] [place] [address] Raimundo Hatch, DESTINY [address] [facility] [address] [place] [address] Ulcer of toe of left foot, with fat layer exposed ([facility]/HCC) (Primary Dx); Diabetic neuropathy with neurologic complication ([facility]/HCC); Hammer toe, acquired Social History Tobacco Use Types Packs/Day Years Used Date Smoking Tobacco: Never Passive Smoke Exposure: Never Smokeless Tobacco: Never Tobacco Cessation:Counseling Given: Not Answered Alcohol Use Standard Drinks/Week Comments Never 0 (1 standard drink = 0.6 oz pur e alcohol) PHQ-2 Answer Date Recorded Patient Health Questionnaire-2 Score 2 06/07/2022 AUDIT-C Answer Date Recorded Q1: How often do you have a drink containing alcohol? Never 08/11/2024 Q2: How many drinks containi ng alcohol do you have on a typical day when you are drinking? Patient does not drink Q3: How often do you have si x or more drinks on one occasion? Never 08/11/2024 CAGE ASSESSMENT Answer Date Recorded Cage unable to access Not on file 05/17/2022 Cage max number of drinks Not on file 03/29/ 2023 Cage Beverages a week Not on file 05/17/2022 Have you ever felt you should CUT down on your d rinking? 0 05/17/2022 Have you been ANNOYED by people criticizing your drinking? 0 05/17/2022 Have you felt GUILTY about your drinking? 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) to steady your nerves or to get [...] PM EDT documented as of this encounter Last Filed Vital Signs Vital Sign Reading Time Taken Comments Blood Pressure 94/64 08/11/2024 8:00 AM EDT Pulse 62 08/11/2024 8:00 AM EDT Temperature 36.5 C (97.7 F) 08/11/2024 8:00 AM EDT Respiratory Rate - - Oxygen Saturation 94% 08/11/2024 8:00 AM EDT Inhaled Oxygen Concentration - - Weight 104 kg (229 lb 0.9 oz) 08/11/2024 8:00 AM EDT Height 165.1 cm (5' 5 ) 08/11/2024 8:00 AM EDT Body Mass Index 38.12 08/11/2024 8:00 AM EDT documented in this encounter Functional Status * AUDIT-C Score Answer Date of Assessment Author 0 08/11/2024 8:01 AM EDT Parul Saleh * Question Answer Date of Assessment Author Q1: How often do you have a drink containing alcohol? Never 08/11/2024 8:01 AM EDT Renetta Saleh Q2: How many drinks containing alcohol do you have on a typical day when you are drinking? Patient does not drink 08/11/2024 8:01 AM EDT Renetta Saleh Q3: How often do you have six or more drinks on one occasion? Never 08/11/2024 8:01 AM EDT Renetta Saleh documented as of this encounter Miscellaneous Notes * Patient Instructions - Mitali Stoner RN - 08/11/2024 8:20 AM EDT [facility] Physician Orders/Patient Instructions Should you notice a significant change in your wound(s) (such as increased drainage, foul odor, or pain) or have questions or problems following these instructions, please contact us at or call your primary care physician or the hospital emergency rooms. Offloading: Keep weight off of Left Foot at all times. Provide post op shoe today in clinic. You will need to wear the post op shoe with ambulation. Wound Care/Dressing: Wound location Left 3rd Toe Cleanse Wound With: with soap and water Apply: Mupirocin Cover With: Fluff Gauze Secure With: Ari and Tape Dressing Changes: Daily Dr. Hatch discussed performing a tenotomy If you decided to have this procedure you will need to stop taking your blood thinner on Sunday to have the procedure on Sunday * Progress Notes - Mitali Gaines RN - 08/11/2024 8:20 AM EDT Images from the original note were not included. Left 3rd toe- [facility] Previous provider ordered x-rays/CT scan at [facility], suspicious for osteomyelitis. * Progress Notes - Raimundo Hatch DPM - 08/11/2024 8:20 AM EDTAssociated Order(s): Debridement Post-Procedure Diagnose(s): Ulcer of toe of left foot, with fat layer exposed ([facility]) Subjective Rica Flannery is a 68 y.o. female who comes to see us today for: Chief Complaint Wound Check This 68-year-old diabetic female presents to clinic today for evaluation of nonhealing wound on thedistal aspect of the left 3rd toe. Past medical history includes insulin-dependent diabetes mellitus which is well controlled (per patient, no recent labs for evaluation), hypertension, obesity and atrial fibrillation and congestive heart failure. Wound has been present for months. She has been seeing a physician in the [facility]. She has had previous MRI and arterial testing performed. She has completed a course of doxycycline but is not currently on antibiotics. They are here for a 2nd opinion. She is applying mupirocin to the area No recent Chest pains or shortness of breath. No dyspnea on exertion. I personally and independently reviewed the Vascular Lab Images, MR Images, and Diagnostic XR Images from today's visit which showed: MR 07/10/2024 osteomyelitis of the left 3rd toe distal phalanx no abscess Vascular imaging reviewed 07/08/2024 Right KENDRA 1.1. No mention of waveform analysis Her chronic comorbid conditions that impact our treatment planning include: Diabetes (DM) - well controlled, with a last HbA1C of: No results found for requested labs within last 365 days. Cardiac Arrhythmia - stable, with the following arrhythmia: atrial fibrillation Congestive Heart Failure (CHF) - stable, with last ECHO of: No echocardiogram results found for thepast 12 months The following portions of the chart were reviewed this encounter and updated as appropriate: Tobacco Allergies Meds Problems Med Hx Surg Hx Fam Hx Subjective Review of Systems Constitutional: Negative for chills, fatigue and fever. Eyes: Negative. Respiratory: Negative for cough and shortness of breath. Cardiovascular: Negative for chest pain and palpitations. Gastrointestinal: Negative for diarrhea, nausea and vomiting. Endocrine: Negative. Genitourinary: Negative. Musculoskeletal: Negative. Skin: Positive for wound. Allergic/Immunologic: Negative. Neurological: Positive for numbness. Negative for weakness. Hematological: Negative. Psychiatric/Behavioral: Negative. Objective Physical Exam Vitals reviewed. Constitutional: General: She is not in acute distress. Appearance: Normal appearance. She is well-developed. She is obese. She is not ill-appearing or toxic-appearing. HENT: Head: Normocephalic and atraumatic. Eyes: Extraocular Movements: Extraocular movements intact. Cardiovascular: Rate and Rhythm: Normal rate. Pulses: Dorsalis pedis pulses are 2+ on the right side and 2+ on the left side. Posterior tibial pulses are 1+ on the right side and 1+ on the left side. Pulmonary: Effort: Pulmonary effort is normal. No respiratory distress. Musculoskeletal: General: Normal range of motion. Cervical back: Normal range of motion. Right lower leg: No edema. Left lower leg: No edema. Feet: Right foot: Skin integrity: Skin integrity normal. Left foot: Skin integrity: Ulcer and erythema present. No warmth. Comments: Claw toe contractures 234 bilateral There is a callus with underlying ulceration on the distal aspect of the left 3rd toe. Serosanguineous drainage without raul purulence or malodor. Local erythema. Mild. No lymphangitis. Clinically there is no involvement of tendon or bone Skin: General: Skin is warm. Capillary Refill: Capillary refill takes less than 2 seconds. Findings: No bruising or rash. Neurological: Mental Status: She is alert and oriented to person, place, and time. Sensory: Sensation is intact. Motor: Motor function is intact. Psychiatric: Mood and Affect: Mood normal. Behavior: Behavior normal. Thought Content: Thought content normal. Judgment: Judgment normal. Debridement Performed by: Raimundo Hatch DPM Authorized by: Raimundo Hatch DPM Consent Consent obtained? verbal (indications for the procedure include removal of devitalized, necrotic ornonviable tissue) Consent given by: patient Risks discussed? procedural risks discussed (risks including but not limited to infection, pain, bleeding, scarring, tissue and nerve damage) Time out called at 08/11/2024 8:56 AM Immediately prior to the procedure a time out was called and the performing provider verified the correct patient, procedure, equipment, ground support equipment mechanic, and site/side marked as required. Debridement Details Performed by: physician Debridement type: surgical Comment regarding debridement type: excisional Level of debridement: subcutaneous tissue Pain control: none Pre-debridement measurements Length (cm): 1.5 Width (cm): 1 Surface Area (cm^2): 1.18 Post-debridement measurements Length (cm): 0.8 Width (cm): 1.2 Depth (cm): 0.2 Percent debrided: 100% Surface Area (cm^2): 0.75 Area Debrided (cm^2): 0.75 Volume (cm^3): 0.1 Tissue and other material debrided: subcutaneous tissue Devitalized tissue debrided: biofilm, callus, exudate, fibrin, necrotic debris and slough Instrument(s) utilized: curette Bleeding: small Hemostasis obtained with: pressure Procedural pain (0-10): 0 Post-procedural pain: 0 Response to treatment: procedure was tolerated well Assessment/Plan In Summary: Rica Flannery is a 68 y.o. year old female who has a chronic nonhealing ulcer on the distal aspect of the left 3rd toe. Imaging results have been reviewed. There is no definitive infection in the toe. We can proceed with tenotomy procedure to try to alleviate pressure to the distal toe. I would recommend 2nd 3rd and 4th digits on the left foot initially. This should reduce the risk of transfer lesion. The patient does understand this is not curative in regards to infection and she still may require amputation of the distal toe Recommendations for topical wound care and offloading, with detailed instructions, have been given to the patient. Should the patient's wound(s) worsen prior to follow-up they should seek immediate medical attention rather than waiting for their next appointment. The patient understands risk of systemic infectionand even amputation in the event of acute worsening. [employer] direct dictation software was utilized in part to generate this note. This may result in mistakes in spelling, or nonsensical words and phrases that may not have been noted during thereview of the text prior to signing. . Below is a summary of the diagnoses addressed in today's visit and any associated orders. Problem List Items Addressed This Visit Nervous Diabetic neuropathy with neurologic complication (CMS/HCC) - Primary Relevant Medications atorvastatin (Lipitor) 40 MG tablet dapagliflozin (Farxiga) 10 MG tablet Mounjaro 5 MG/0.5ML solution auto-injector solution pen-injector Musculoskeletal Ulcer of toe of left foot, with fat layer exposed (CMS/HCC) Relevant Medications mupirocin (Bactroban) 2 % ointment Other Relevant Orders Debridement Hammer toe, acquired We will see her back for: Follow up in about 1 week (around 08/18/2024). documented in this encounter Plan of Treatment Upcoming Encounters Date Type Department Care Team (Late st Contact Info) Description 08/18/2024 9:20 AM EDT Office Visit [facility] [address] [facility] 5th Floor [address] [place] [phone] Raimundo Hatch DPM [address] [place] [address] Scheduled Orders Name Type Priority Associated Diagnoses Orde r Schedule Debridement Procedures Routine Ulcer of toe of left foot, with fat layer exposed (CMS/HCC) 1 Occurrences starting 08/11/2024 until 10/11/2024 documented as of this encounter Procedures Procedure Name Priority Date/Time Associated Diagnosis Comments CT DEBRIDEMENT, SKIN, SUB-Q TISSUE,=<20 SQ CM Routine 08/11/2024 8:20 AM EDT Ulcer of toe of left foot, with fat layer exposed (CMS/HCC) documented in this encounter Results * CT DEBRIDEMENT, SKIN, SUB-Q TISSUE,=<20 SQ CM (08/11/2024 8:20 AM EDT) Narrative Raimundo Hatch DPM - 08/11/2024 8:20 AM EDT Raimundo Hatch DPM 08/11/2024 10:55 AM Debridement Performed by: Raimundo Hatch DPM Authorized by: Raimundo Hatch DPM Consent Consent obtained? verbal (indications for the procedure include removal of devitalized, necrotic or nonviable tissue) Consent given by: patient Risks discussed? procedural risks discussed (risks including but not limited to infection, pain, bleeding, scarring, tissue and nerve damage) Time out called at 08/11/2024 8:56 AM Immediately prior to the procedure a time out was called and the performing provider verified the correct patient, procedure, equipment, ground support equipment mechanic, and site/side marked as required. Debridement Details Performed by: physician Debridement type: surgical Comment regarding debridement type: excisional Level of debridement: subcutaneous tissue Pain control: none Pre-debridement measurements Length (cm): 1.5 Width (cm): 1 Surface Area (cm^2): 1.18 Post-debridement measurements Length (cm): 0.8 Width (cm): 1.2 Depth (cm): 0.2 Percent debrided: 100% Surface Area (cm^2): 0.75 Area Debrided (cm^2): 0.75 Volume (cm^3): 0.1 Tissue and other material debrided: subcutaneous tissue Devitalized tissue debrided: biofilm, callus, exudate, fibrin, necrotic debris and slough Instrument(s) utilized: curette Bleeding: small Hemostasis obtained with: pressure Procedural pain (0-10): 0 Post-procedural pain: 0 Response to treatment: procedure was tolerated well Raimundo Hatch DPM IN CLINIC/BEDSIDE ORDERABLES F inal Result documented in this encounter Visit Diagnoses Diagnosis Ulcer of toe of left foot, with fat layer exposed (CMS/HCC)- Primary Diabetic neuropathy with neurologic complication (CMS/HCC) Type II or unspecified type diabetes mellitus with neurological manifestations, not stated as uncontrolled Hammer toe, acquired Other hammer toe (acquired) documented in this encounter Administered Medications Inactive Administered Medications - up to 3 most recent administrations Medication Order MAR Action Action Date Dose Rate Site mupirocin (Bactroban) 2 % ointment 1 Application Topical, Daily, 1 dose, First dose on Sun08/11/24 at 1000, RoutineIndications:Diabetic neuropathy with neurologic complication (CMS/HCC),Hammer toe, acquired,Ulcer of toe of left foot, with fat layer exposed (CMS/HCC) Given 08/11/2024 9:04 AM EDT 1 Application documented in this encounter Additional Health Concerns Assessment Noted Time A fall risk assessment has been complete d for the patient 06/07/2022 11:09 AM EDT A Body Mass Index follow-up plan has been documented for the patient 08/11/2024 8:45 AM EDT documented as of this encounter Care Teams Manager Sap Relationship Specialty Start Date End Date Maegan Bermeo MD [address] [place] [address] PCP - General Family Medicine 09/15/21 documented as of this encounter
--- OUTSIDE RECORDS SUMMARY | 2024-08-11 11:40 | XMS_ITS | Encounter Summary ---
Author Organization Healthcare Address [address] [place] [address] Care Team Providers Care Personalized Living Assistant Name Role Phone Maegan Bermeo MD Primary Care Provider [phone] Encounter Details Date Type Department Care Team (Late st Contact Info) Description 07/03/2024 Orders Only External Location [address] [place] [phone] Provider, External Social History Tobacco Use Types Packs/Day Years [...] drink first t ken in the morning (EYE-CIVIL ENGINEERING SPECIALIST) to steady your nerves or to get [...] as of this encounter Plan of Treatment Upcoming Encounters Date Type Department Care Team (Late st Contact Info) Description 08/18/2024 9:20 AM EDT Office Visit [facility] [address]th [address] [place] [address] Raimundo Hatch, DESTINY [address] [place] [address] documented as of this encounter Procedures Procedure Name Priority Date/Time Associated Diagnosis Comments XR MSK OUTSIDE IMAGES 07/03/2024 4:40 PM EDT documented in this encounter Results * XR MSK OUTSIDE IMAGES (07/03/2024 4:40 PM EDT) Anatomical Region Laterality Modality Radiographic Chelsi ging 07/03/2024 4:40 PM EDT us External Provider IMG XR PROCEDURES Final Result documented in this encounter Visit Diagnoses Not on filedocumented in this encounter Additional Health Concerns Assessment Noted Time A fall risk assessment has been complete d for the patient 06/07/2022 11:09 AM EDT A Body Mass Index follow-up plan has been documented for the patient 06/07/2022 11:30 AM EDT documented as of this encounter Care Teams Personalized Living Assistant Relationship Specialty Start Date End Date Maegan Bermeo MD [address] [place] [address] PCP - General Family Medicine 09/15/21 documented as of this encounter
--- OUTSIDE RECORDS SUMMARY | 2024-08-11 11:40 | XMS_ITS | Encounter Summary ---
Author Organization [facility] Address [address] [place] [address] Care Team Providers Care Physician [facility] Name Role Phone Maegan Bermeo MD Primary Care Provider [phone] Jessa Park LPN Unavailable Unavailable Reason for Visit * Reason Comments Med Refill Encounter Details Date Type Department Care Team (Late st Contact Info) Description 11/26/2021 Refill Family [facility] Community Medicine [address] [place] [address] Benjie Quezada MD [address] [facility] [address] [place] [address] Social History Tobacco Use Types [...] Description 08/18/2024 9:20 AM EDT Office Visit [facility] [address] [facility] 5th Floor [address] [place] [address] Raimundo Hatch DPM [address] [facility] [address] [place] [address] documented as of this encounter Visit Diagnoses Not on filedocumented in this encounter Additional Health Concerns Infection Onset Date Last Indicated Resolved Time COVID 19 (Confirmed) 11/11/2021 11/11/2021 022 5:23 AM EDT COVID-19 Rule-Out 05/16/2022 05/16/2022 05/16/2022 11:05 PM EDT Assessment Noted Time A fall risk assessment has been complete d for the patient 10/11/2021 11:31 AM EDT documented as of this encounter Care Teams Physician [facility] Relationship Specialty Start Date End Date Maegan Bermeo MD [address] [place] [address] PCP - General Family Medicine 09/15/21 Jessa Park LPN [employer] [place] [address] Registered Nurse 05/26/22 05/26/22 documented as of this encounter
--- OUTSIDE RECORDS SUMMARY | 2024-08-11 11:40 | XMS_ITS | Encounter Summary ---
Author Organization [facility] Address [address] [place] [address] Care Team Providers Care Shipping Packer Name Role Phone Maegan Bermeo MD Primary Care Provider [phone] Encounter Details Date Type Department Care Team (Late st Contact Info) Description 07/30/2024 Telephone [facility] [address] [facility] 5th Floor [address] [place] [address] Raimundo Hatch, DPM [address] [facility] [address] [place] [address] Social History Tobacco Use Types Packs/Day Years [...] drink first t ken in the morning (EYE-CALL OR CONTACT CENTRE TEAM LEADER) to steady your nerves or to get [...] encounter Miscellaneous Notes * Telephone Encounter - Magdaleno Reyna - 07/30/2024 3:01 PM EDT Spoke with pts daughter to schedule WCC consult. We scheduled for next available. Daughter is agreeable to time/date/location documented in this encounter Plan of Treatment Upcoming Encounters Date Type Department Care Team (Late st Contact Info) Description 08/18/2024 9:20 AM EDT [facility] Visit [facility] [address] [place] [address] Raimundo Hatch, DPM [address] [facility] [address] [place] [address] documented as of this encounter Visit Diagnoses Not on filedocumented in this encounter Additional Health Concerns Assessment Noted Time A fall risk assessment has been complete d for the patient 06/07/2022 11:09 AM EDT A Body Mass Index follow-up plan has been documented for the patient 06/07/2022 11:30 AM EDT documented as of this encounter Care Teams Shipping Packer Relationship Specialty Start Date End Date Maegan Bermeo MD [address] [place] [address] PCP - General Family Medicine 09/15/21 documented as of this encounter
--- OUTSIDE RECORDS SUMMARY | 2024-08-11 11:40 | XMS_ITS | Encounter Summary ---
Author Organization [facility] Address [address] [place] [address] Care Team Providers Care Waist Cutter Name Role Phone Maegan Bermeo MD Primary Care Provider [phone] Audra Wahl METAL PUNCH PRESS OPERATOR Unavailable Unavailab Jessa Jimenez METAL PUNCH PRESS OPERATOR Unavailable Unavailable Reason for Visit * Reason Comments Med Refill Encounter Details Date Type Department Care Team (Late st Contact Info) Description 10/11/2021 Refill Family and Community Medicine [address] [place] [address] Maegan Bermeo MD [address] [place] [address] Avitaminosis D Social History Tobacco [...] Wish to be (Past 1 Month) No 022 11:32 AM EDT Kassandra Duran 2. Non-Specific Active Suici josé Thoughts (Past 1 Month) No 10/11/2021 11:32 AM EDT Kassandra Duran 6. Suicidal Behavior (Lifetime) No 11:32 AM EDT Kassandra Duran documented as of this encounter Plan of Treatment Upcoming Encounters Date Type Department Care Team (Late st Contact Info) Description 08/18/2024 9:20 AM EDT Office Visit [place] [facility] [address] [facility] 5th Floor [address] [place] [address] Raimundo Hatch DPM [address] [facility] [address] [place] [address] documented as of this encounter Visit Diagnoses Diagnosis Avitaminosis D Unspecified vitamin D deficiency documented in this encounter Additional Health Concerns Infection Onset Date Last Indicated Resolved Time COVID 19 (Confirmed) Comment:Patient is >10 days from COVID test date on 10/26/2021 and patient no longer needs COVID isolation as patient is asymptomatic, not immunocompromised. Team aware. EVS notified. [facility] has verified patient has a COVID-19 positive result. A chart review has been completed, EPI PUI has been completed and sent to appropriate Health Dept. IPAC Software Quality Test Engineer: Nimco Simms 10/26/2021 10/26/2021 022 10:27 AM EDT COVID 19 (Confirmed) 11/11/2021 11/11/2021 022 5:23 AM EDT COVID-19 Rule-Out 05/16/2022 05/16/2022 05/16/2022 11:05 PM EDT Assessment Noted Time A fall risk assessment has been complete d for the patient 10/11/2021 11:31 AM EDT documented as of this encounter Care Teams Waist Cutter Relationship Specialty Start Date End Date Maegan Bermeo MD [address] [place] [address] PCP - General Family Medicine 09/15/21 Audra Wahl LPN [employer] [place] [address] TCM Nurse 09/27/21 10/27/21 Jessa Park LPN [employer] [place] [address] Registered Nurse 05/26/22 05/26/22 documented as of this encounter
--- OUTSIDE RECORDS SUMMARY | 2024-08-11 11:40 | XMS_ITS | Encounter Summary ---
Author Organization [facility] Address [address] [place] [address] Care Team Providers Care Building Stonecutter Name Role Phone Maegan Bermeo MD Primary Care Provider [phone] Encounter Details Date Type Department Care Team (Latest Contact Info) Description 08/11/2024 Travel Social History Tobacco Use Types Packs/Day Years Used Date Smoking Tobacco: Never Passive Smoke Exposure: Never Smokeless Tobacco: Never Alcohol Use Standard [...] drink first t ken in the morning (EYE-METAL ORGAN PIPE MAKER) to steady your nerves or to get [...] PM EDT documented as of this encounter Functional Status * AUDIT-C Score [...] Renetta Saleh documented as of this encounter Plan of Treatment Upcoming Encounters Date Type Department Care Team (Late st Contact Info) Description 08/18/2024 9:20 AM EDT Office Visit [place] [facility] [address] [facility] 5th Floor [address] [place] [address] Raimundo Hatch DPM [address] [facility] [address] [place] [address] documented as of this encounter Visit Diagnoses Not on filedocumented in this encounter Additional Health Concerns Assessment Noted Time A fall risk assessment has been complete d for the patient 06/07/2022 11:09 AM EDT A Body Mass Index follow-up plan has been documented for the patient 08/11/2024 8:45 AM EDT documented as of this encounter Care Teams Building Stonecutter Relationship Specialty Start Date End Date Maegan Bermeo MD [address] [place] [address] PCP - General Family Medicine 09/15/21 documented as of this encounter
--- OUTSIDE RECORDS SUMMARY | 2024-08-11 11:40 | XMS_ITS | Encounter Summary ---
Author Organization Healthcare Address [address] [place] [address] Care Team Providers Care Training And Development Coordinator Name Role Phone Jan Castelan MD Primary Care Provider [phone] Benjie Quezada MD Primary Care Provider Tamika Loomis APRN Primary Care Provider [phone] Maegan Bermeo MD Primary Care Provider [phone] Audra Wahl WATER PUMPER Unavailable Unavailab Jessa Jimenez WATER PUMPER Unavailable Unavailable Reason for Visit * Reason Comments Med Refill Encounter Details Date Type Department Care Team (Late st Contact Info) Description 02/22/2021 Refill Family and Community Medicine [address] [place] [address] Jan Castelan MD [address] [place] [address] Uncontrolled type 2 diabetes mellitus with hyperglycemia ([facility]) Social History Tobacco Use Types Packs/Day [...] Description 08/18/2024 9:20 AM EDT Office Visit [facility] [address] [facility] 5th Floor [address], [address] [place] [address] Raimundo Hatch DPDestiny [address] [facility] [address] [place] [address] documented as of this encounter [...] and sent to appropriate Health Dept. IPAC Cold Food Packer: Nimco Simms 10/26/2021 10/26/2021 022 10:27 AM EDT COVID 19 (Confirmed) 11/11/2021 11/11/2021 022 5:23 AM EDT COVID-19 Rule-Out 05/16/2022 05/16/2022 05/16/2022 11:05 PM EDT documented as of this encounter Care Teams Training And Development Coordinator Relationship Specialty Start Date End Date Jan Castelan MD [facility] [place] [address] PCP - General 07/02/20 08/07/21 Benjie Quezada MD [address] [facility] [address] [place] [address] PCP - General Family Medicine 08/08/21 08/30/21 Tamika Loomis APRN [address] [facility] [address] [place] [address] PCP - General Family Medicine 08/31/21 09/14/21 Maegan Bermeo MD [address] [place] [address] PCP - General Family Medicine 09/15/21 Audra Wahl LPN [employer] [place] [address] TCM Nurse 09/27/21 10/27/21 Jessa Park LPN [employer] [place] [address] Registered Nurse 05/26/22 05/26/22 documented as of this encounter
--- OUTSIDE RECORDS SUMMARY | 2024-08-11 11:40 | XMS_ITS | Encounter Summary ---
Author Organization Healthcare Address [address] [place] [address] Care Team Providers Care Nut Packer Name Role Phone Maegan Bermeo MD Primary Care Provider Encounter Details Date Type Department Care Team (Late st Contact Info) Description 07/08/2024 Orders Only External Location [address] [place] [phone] Provider, External Social History Tobacco Use Types [...] drink first t ken in the morning (EYE-911 OPERATOR) to steady your nerves or to get [...] Description 08/18/2024 9:20 AM EDT Office Visit [place] [facility] [address] 5th Floor [address] [place] [address] Raimundo Hatch DPM [address] [place] [address] documented as of this encounter Procedures Procedure Name Priority Date/Time Associated Diagnosis Comments US OUTSIDE IMAGES 07/08/2024 1:39 PM EDT documented in this encounter Results * US OUTSIDE IMAGES (07/08/2024 1:39 PM EDT) Anatomical Region Laterality Modality Ultrasound 07/08/2024 1:39 PM EDT us External Provider IMG US PROCEDURES Final Result documented in this encounter Visit Diagnoses Not on filedocumented in this encounter Additional Health Concerns Assessment Noted Time A fall risk assessment has been complete d for the patient 06/07/2022 11:09 AM EDT A Body Mass Index follow-up plan has been documented for the patient 06/07/2022 11:30 AM EDT documented as of this encounter Care Teams Nut Packer Relationship Specialty Start Date End Date Maegan Bermeo MD [address] [place] [address] PCP - General Family Medicine 09/15/21 documented as of this encounter
--- OUTSIDE RECORDS SUMMARY | 2024-08-11 11:40 | XMS_ITS | Encounter Summary ---
Author Organization Healthcare Address [address] [place] [address] Care Team Providers Care Management Lecturer Name Role Phone Tyler Castelan MD Primary Care Provider [phone] Benjie Quezada MD Primary Care Provider Tamika Loomis APRN Primary Care Provider [phone] Maegan Bermeo MD Primary Care Provider [phone] Audra Wahl GOLD ASSAYER Unavailable Unavailab Jessa Jimenez GOLD ASSAYER Unavailable Unavailable Encounter Details Date Type Department Care Team (Late st Contact Info) Description 06/28/2021 Outside Procedure External Location [address] [place] [phone] Tyler Castelan MD [address] [place] [address] Social History Tobacco Use Types [...] Description 08/18/2024 9:20 AM EDT Office Visit [facility] [address] 5th Floor [address] [place] [address] Raimundo Hatch E, DPM [address] [place] [address] documented as of this encounter Procedures Procedure Name Priority Date/Time Associated Diagnosis Comments VAS US VENOUS DUPLEX LOWER EXTREMITY UNILATERAL 06/28/2021 2:51 PM EDT documented in this encounter Results * VAS US Venous Duplex Lower Extremity Unilateral (06/28/2021 2:51 PM EDT) Anatomical Region Laterality Modality Lower Extremities Ultrasound 06/28/2021 2:51 PM EDT Narrative 06/28/2021 4:35 [place] [address] Name: RICA FLANNERY Exam Date: 06/28/2021 : 1955 Age 65 Gender: F Physician: TYLER CASTELAN Facility: [facility] Facility HSV: Outpatient Exam: VENOUS DUPLEX [...] Thank you for referring RICA FLANNERY to [facility]. Legally authenticated by KWAME HARGROVE 2021-06-28 16:23:11 Procedure Note Provider, Generic [place] - 06/28/2021 [place] [address] Name: RICA FLANNERY Exam Date: 06/28/2021 : 1955 Age 65 Gender: F Physician: TYLER CASTELAN Facility: [facility] Facility HSV: Outpatient Exam: VENOUS DUPLEX [...] Thank you for referring RICA FLANNERY to [facility]. Legally authenticated by KWAME HARGROVE 2021-06-28 16:23:11 us Tyler Castelan MD CV VASCULAR PROCEDURES Final [...] and sent to appropriate Health Dept. IPA Paper Twister Tender: Nimco Simms 10/26/2021 10/26/2021 10:27 AM EDT COVID 19 (Confirmed) 11/11/2021 11/11/2021 022 5:23 AM EDT COVID-19 Rule-Out 05/16/2022 05/16/2022 05/16/2022 11:05 PM EDT Assessment Noted Time A fall risk assessment has been complete d for the patient 06/28/2021 10:46 AM EDT documented as of this encounter Care Teams Management Lecturer Relationship Specialty Start Date End Date Tyler Castelan MD [address] [place] [address] PCP - General 07/02/20 08/07/21 Benjie Quezada MD [address] [facility] [address] [place] [address] PCP - General Family Medicine 08/08/21 08/30/21 Tamkia Loomis APRN [address] [facility] [address] [place] [address] PCP - General Family Medicine 08/31/21 09/14/21 Maegan Bermeo MD [address] [place] [address] PCP - General Family Medicine 09/15/21 Audra Wahl LPN [employer] [place] [address] TCM Nurse 09/27/21 10/27/21 Jessa Park LPN [employer] [place] [address] Registered Nurse 05/26/22 05/26/22 documented as of this encounter
--- OUTSIDE RECORDS SUMMARY | 2024-08-11 11:40 | XMS_ITS | Encounter Summary ---
Author Organization [facility] Address [address] [place] [address] Care Team Providers Care Boiling Tub Operator Name Role Phone Jan Castelan MD Primary Care Provider [phone] Benjie Quezada MD Primary Care Provider Tamika Loomis APRN Primary Care Provider [phone] Maegan Bermeo MD Primary Care Provider [phone] Audra Wahl TERMITE TREATER Unavailable Unavailab Jessa Jimenez TERMITE TREATER Unavailable Unavailable Reason for Visit * Reason Comments Med Refill Encounter Details Date Type Department Care Team (Late st Contact Info) Description 12/28/2020 Refill Family and Community Medicine [address] [place] [address] Jan Castelan MD [address] [place] [address] Social History Tobacco Use Types [...] Description 08/18/2024 9:20 AM EDT Office Visit [facility] [address] 5th Floor [address] [place] [address] Raimundo Hatch, DPDestiny [address] [place] [address] documented as of this encounter Visit Diagnoses Not on filedocumented in this encounter Additional Health Concerns Infection Onset Date Last Indicated Resolved Time COVID 19 (Confirmed) Comment:Patient is >10 days from COVID test date on 10/26/2021 and patient no longer needs COVID isolation as patient is asymptomatic, not immunocompromised. Team aware. EVS notified. [facility] has verified patient has a COVID-19 positive result. A chart review has been completed, EPI PUI has been completed and sent to appropriate Health Dept. [facility] Product Sales Representative: Nimco Simms 10/26/2021 10/26/2021 022 10:27 AM EDT COVID 19 (Confirmed) 11/11/2021 11/11/2021 022 5:23 AM EDT COVID-19 Rule-Out 05/16/2022 05/16/2022 05/16/2022 11:05 PM EDT documented as of this encounter Care Teams Boiling Tub Operator Relationship Specialty Start Date End Date Jan Castelan MD [address] [place] [address] PCP - General 07/02/20 08/07/21 Benjie Quezada MD [address] [place] [address] PCP - General Family Medicine 08/08/21 08/30/21 Tamika Loomis APRN [address] [place] [address] PCP - General Family Medicine 08/31/21 09/14/21 Maegan Bermeo MD [address] [place] [address] PCP - General Family Medicine 09/15/21 Audra Wahl LPN [employer] [place] [address] TCM Nurse 09/27/21 10/27/21 Jessa Park LPN [employer] [place] [address] Registered Nurse 05/26/22 05/26/22 documented as of this encounter
--- OUTSIDE RECORDS SUMMARY | 2024-08-11 11:40 | XMS_ITS | Encounter Summary ---
Author Organization Healthcare Address [address] [place] [address] Care Team Providers Care Electrician Apprentice Name Role Phone Jan Castelan MD Primary Care Provider [phone] Bejnie Quezada MD Primary Care Provider Tamika Loomis APRN Primary Care Provider [phone] Maegan Bermeo MD Primary Care Provider [phone] Audra Wahl NUCLEAR STATION OPERATOR Unavailable Unavailab Jessa Jimenez NUCLEAR STATION OPERATOR Unavailable Unavailable Reason for Visit * Reason Comments Med Refill Encounter Details Date Type Department Care Team (Late st Contact Info) Description 07/27/2020 Refill Family and Community Medicine [address] [place] [address] Jan Castelan MD [address] [place] [address] Social History Tobacco Use Types [...] 07/29/2020 7:49 AM EDT Rx sent to [facility] for Nortriptyline 50mg 1 at bedtime #30 + 1 refill. Please make appt forfurther refills. Patient was to return to clinic in 3mos after last visit in June. documented in this encounter Plan of Treatment Upcoming Encounters Date Type Department Care Team (Late st Contact Info) Description 08/18/2024 9:20 AM EDT Office Visit [facility] [address] [facility] 5th Floor [address] [place] [address] Raimundo Hatch, DPDestiny [address] [facility] [address] [place] [address] documented as of this encounter [...] and sent to appropriate Health Dept. IPAC Tool Design Checker: Nimco Simms 10/26/2021 10/26/2021 022 10:27 AM EDT COVID 19 (Confirmed) 11/11/2021 11/11/2021 022 5:23 AM EDT COVID-19 Rule-Out 05/16/2022 05/16/2022 05/16/2022 11:05 PM EDT documented as of this encounter Care Teams Electrician Apprentice Relationship Specialty Start Date End Date Jan Castelan MD [address] [place] [address] PCP - General 07/02/20 08/07/21 Benjie Quezada MD [address] [place] [address] PCP - General Family Medicine 08/08/21 08/30/21 Tamika Loomis APRN [address] [place] [address] PCP - General Family Medicine 08/31/21 09/14/21 Maegan Bermeo MD [address] [place] [address] PCP - General Family Medicine 09/15/21 Audra Wahl LPN [employer] [place] [address] TCM Nurse 09/27/21 10/27/21 Jessa Park LPN [employer] [place] [address] Registered Nurse 05/26/22 05/26/22 documented as of this encounter
--- OUTSIDE RECORDS SUMMARY | 2024-08-11 11:40 | XMS_ITS | Encounter Summary ---
Author Organization Healthcare Address [address] [place] [address] Care Team Providers Care Service Plumber Name Role Phone Maegan Bermeo MD Primary Care Provider [phone] Encounter Details Date Type Department Care Team (Late st Contact Info) Description 07/10/2024 Orders Only External Location [address] [place] [phone] Provider, External Social History Tobacco Use Types [...] drink first t ken in the morning (EYE-CHILD CARE DIRECTOR) to steady your nerves or to get [...] Description 08/18/2024 9:20 AM EDT Office Visit [place] [facility] [address] 5th Floor [address] [place] [address] Raimnudo Hatch, DESTINY [address] [place] [address] documented as of this encounter Procedures Procedure Name Priority Date/Time Associated Diagnosis Comments MR MSK OUTSIDE IMAGES 07/10/2024 11:28 AM EDT documented in this encounter Results * MR MSK OUTSIDE IMAGES (07/10/2024 11:28 AM EDT) Anatomical Region Laterality Modality Magnetic Resonan ce 07/10/2024 11:2 8 AM EDT us External Provider IMG MRI PROCEDURES Final Resul t documented in this encounter Visit Diagnoses Not on filedocumented in this encounter Additional Health Concerns Assessment Noted Time A fall risk assessment has been complete d for the patient 06/07/2022 11:09 AM EDT A Body Mass Index follow-up plan has been documented for the patient 06/07/2022 11:30 AM EDT documented as of this encounter Care Teams Service Plumber Relationship Specialty Start Date End Date Maegan Bermeo MD [address] [place] [address] PCP - General Family Medicine 09/15/21 documented as of this encounter
--- OUTSIDE RECORDS SUMMARY | 2024-08-11 11:40 | XMS_ITS | Encounter Summary ---
Author Organization Healthcare Address [address] [place] [address] Care Team Providers Care Account Services Analyst Name Role Phone Maegan Bermeo MD Primary Care Provider [phone] Encounter Details Date Type Department Care Team (Late st Contact Info) Description 03/11/2024 Orders Only External Location [address] [place] [phone] Provider, External Social History Tobacco Use Types [...] drink first t ken in the morning (EYE-DENTAL RECEPTIONIST) to steady your nerves or to get [...] Description 08/18/2024 9:20 AM EDT Office Visit [place] [facility] [address] 5th [address] [place] [address] Raimundo Hatch DPM [address] [place] [address] documented as of this encounter Procedures Procedure Name Priority Date/Time Associated Diagnosis Comments US OUTSIDE IMAGES 03/11/2024 12:54 PM EST documented in this encounter Results * US OUTSIDE IMAGES (03/11/2024 12:54 PM EST) Anatomical Region Laterality Modality Ultrasound 03/11/2024 12:5 4 PM EST us External Provider IMG US PROCEDURES Final [...] documented as of this encounter Care Teams Account Services Analyst Relationship Specialty Start Date End Date Maegan Bermeo MD [address] [place] [address] PCP - General Family Medicine 09/15/21 documented as of this encounter
--- OUTSIDE RECORDS SUMMARY | 2024-08-11 11:40 | XMS_ITS | Clinical Summary ---
Author Organization [facility] Address [address] [place] [address] Care Team Providers Care Upholsterer Assembly Line Name Role Phone Maegan Bermeo MD Primary Care Provider [phone] Allergies Active Allergy Reactions Criticality Noted Date [...] mouth 1 (one) time each day. Active atorvastatin (Lipitor) 40 MG tablet Take 1 tablet by mouth daily. 5 Active bumetanide (Bumex) 1 MG tablet Take 1 tablet by mouth 2 times a day. 5 Active Vraylar 1.5 MG capsule Take 1 capsule by mouth daily. 4 Active dapagliflozin (Farxiga) 10 MG tablet Take 1 tablet by mouth daily. 5 Active famotidine (Pepcid) 20 MG tablet Take 1 tablet by mouth daily. 5 Active mupirocin (Bactroban) 2 % ointment 5 Active pantoprazole (Protonix) 40 MG EC tablet Take 1 tablet by mouth daily. 5 Active Entresto 24-26 MG tablet Take 1 tablet by mouth 2 times a day. 5 Active spironolactone (Aldactone) 25 MG tablet Take 1 tablet by mouth daily. 5 Active Mounjaro 5 MG/0.5ML solution auto-injector solution pen-injector Inject 0.5 mL under the skin 1 time per week. 4 Active zolpidem (Ambien) 5 MG tablet Take 1 tablet by mouth at night as needed for sleep. 5 Active Hospital, Clinic, or Other Facility Administered Medication Ordered Dose Route Frequency Start Date End Date Status mupirocin (Bactroban) 2 % ointment 1 ApplicationIndicatio ns:Ulcer of toe of left foot, with fat layer exposed (CMS/HCC) 1 Application TOP Daily 08/11/2024 08/11/2024 Discontinue d mupirocin (Bactroban) 2 % ointment 1 ApplicationIndicatio ns:Diabetic neuropathy with neurologic complication (CMS/HCC),Hammer toe, acquired,Ulcer of toe of left foot, with fat layer exposed (CMS/HCC) 1 Application TOP Daily 08/11/2024 08/11/2024 Ende d Active Problems Problem Noted Date Diagnosed Date Ulcer of toe of left foot, with fat layer expose d 08/11/2024 Diabetic neuropathy with neurologic complication 08/11/2024 Hammer toe, acquired 08/11/2024 Anasarca 05/20/2022 Acute on chronic congestive heart [...] is elevated above patient's baseline of around 4712-0238 -most recent echo obtained in October 2021 [...] but pain at time of arrival to [facility] PLAN: -pain control initially with p.r.n. Tylenol [...] Post herpetic neuralgia 05/24/201702/19 Rosacea 05/24/2017 10/27/2021 Encounters Date Type Department Care Team Description 08/11/2024 8:20 AM EDT Office Visit [facility] [address] [place] [address] Raimundo Hatch, DPM Ulcer of toe of left foot, with fat layer exposed (CMS/HCC) (Primary Dx); Diabetic neuropathy with neurologic complication (CMS/HCC); Hammer toe, acquired 08/11/2024 Travel 07/30/2024 Telephone [facility] [address] [place] [address] Raimundo Hatch DPM 07/10/2024 Orders Only External Location [address] [place] [address] Provider, External 07/08/2024 Orders Only External Location [address] [place] [address] Provider, External 07/03/2024 Orders Only External Location [address] [place] [phone] Provider, External from Last 3 Months Immunizations Immunization Administration Dates Next Due Influenza [...] drink first t ken in the morning (EYE-FACTORY PROCESS WORKERS) to steady your nerves or to get [...] F) 08/11/2024 8:00 AM EDT Respiratory Rate 19 06/07/2022 10:55 AM EDT Oxygen Saturation 94% 08/11/2024 8:00 AM EDT Inhaled Oxygen Concentration - - Weight 104 kg (229 lb 0.9 oz) 08/11/2024 8:00 AM EDT Height 165.1 cm (5' 5 ) 08/11/2024 8:00 AM EDT Body Mass Index 38.12 08/11/2024 8:00 AM EDT Plan of Treatment Upcoming Encounters Date Type Department Care Team (Late st Contact Info) Description 08/18/2024 9:20 AM EDT Office Visit [place] [facility] [address] [place] [address] Raimundo Hatch DPM [address] [place] [address] Health Maintenance Due Date Last Done Comments [facility]-Bone Density Scan 1955 [facility]-Medicare Annual Wellness (AWV) 1955 [facility]-Infant/Child/Adol SDOH Screenings 1955 Diabetes: Dental Exam 08/20/1965 [...] 2013 [facility]-Breast Cancer Screening 01/20/2021 01/20/2019 FIT-DNA 02/04/2022 02/04/2019, 02/16/2018 [facility]-Colorectal Cancer Screening 02/04/2022 [facility]-Diabetes: Hemoglobin A1C 08/29/202212/2022, 10/26/2021, 08/31/2021, Additional history exists [facility]-Depression Screening 06/08/2023 06/07/2022 [id number] Vaccine ( season) 2023 01/05/2022, 01/07/2021, 06/11/2020, Additional history exists [facility]-Influenza Vaccine (Season Ended) 2024 01/07/2021, 01/07/2021, 01/07/2020, Additional history exists [facility]-Hepatitis C Screening Completed 09/24/2021 [facility]-Obesity Intervention Completed 025, 06/07/2022, 04/03/2022, Additional history exists HPV Vaccines Aged Out [...] Procedure Name Priority Date/Time Associated Diagnosis Comments MS DEBRIDEMENT, SKIN, SUB-Q TISSUE,=<20 SQ CM Routine 08/11/2024 8:20 AM EDT Ulcer of toe of left foot, with fat layer exposed (CMS/HCC) MR MSK OUTSIDE IMAGES 07/10/2024 11:28 AM EDT US OUTSIDE IMAGES 07/08/2024 1:3 9 PM EDT XR MSK OUTSIDE IMAGES 07/03/2024 4:40 PM EDT HEMOGLOBIN A1C Routine 03/01/2022 8:45 AM EST Essential (primary) hypertension Uncontrolled type 2 diabetes mellitus with hyperglycemia (CMS/HCC) HEPATITIS C ANTIBODY - ED W/REFLEX TO HCV QUANT PCR STAT 09/24/2021 7:52 AM EDT MAMMOGRAPHY EXTERNAL RESULTS 01/20/2019 LAB COLOGUARD COLON CANCER SCREEN Routine 02/16/2018 8:42 AM EST from Last 3 Months or Most Recently Relevant to Health Maintenance Results * MS DEBRIDEMENT, SKIN, SUB-Q TISSUE,=<20 SQ CM (08/11/2024 [...] provider verified the correct patient, procedure, equipment, service support representative, and site/side marked as required. Debridement Details [...] Response to treatment: procedure was tolerated well us Raimundo Hatch DPM IN CLINIC/BEDSIDE ORDERABLES F inal Result * MR MSK OUTSIDE IMAGES (07/10/2024 11:28 AM EDT) Anatomical Region Laterality Modality Magnetic Resonan ce 07/10/2024 11:2 8 AM EDT us External Provider IMG MRI PROCEDURES Final Resul t * US OUTSIDE IMAGES (07/08/2024 1:39 PM EDT) Anatomical Region Laterality Modality Ultrasound 07/08/2024 1:39 PM EDT us External Provider IMG US PROCEDURES Final Result * XR MSK OUTSIDE IMAGES (07/03/2024 4:40 PM EDT) Anatomical Region Laterality Modality Radiographic Chelsi ging 07/03/2024 4:40 PM EDT us External Provider IMG XR PROCEDURES Final Result * Hemoglobin A1c (03/01/2022 8:45 AM EST) [...] Adults <6.0% Children and Adolescents <7.5% Source: [place] [employer]. Standards of medical care in diabetes,2017. Diabetes Care.2017:40 (suppl 1):S1-S135. HbA1c assay performed by an ion-exchange chromatography method that is certified traceable to the DCCT. us Maegan Bermeo MD LAB BLOOD ORDERABLES Final Re sult [facility] [address] [place] [address] * Hepatitis C Antibody - ED (09/24/2021 7:52 AM EDT) Hepatitis C Antibody Negative Negative 09/24/2021 9:51 AM EDT [facility] Blood Venous blood specimen / Unknown Venipuncture / Unknown 09/24/2021 7:52 AM EDT 09/24/2021 8:10 AM EDT Farida Sharif MD LAB BLOOD ORDERABLES Final Res ult [facility] [address] [place] [address] * MAMMOGRAPHY EXTERNAL RESULTS (01/20/2019) Anatomical Region Laterality Modality Mammography Narrative 01/20/2019 Ordered by an unspecified provider. us External Provider IMG BI PROCEDURES Final Result * (ABNORMAL) Cologuard (02/16/2018 8:42 AM EST) Cologuard Positive(Y) [employer] 02/16/2018 8:42 AM EST us Historical Provider LAB MOLECULAR DIAGNOSTICS ORDERABLES Final Result [employer] from Last 3 Months or Most Recently Relevant to Health Maintenance Insurance MEDICARE [facility] Advance Directives * DNR/DNI (Latest Code Status [...] Patient has decision-making capacity? Yes Care Teams Upholsterer Assembly Line Relationship Specialty Start Date End Date Maegan Bermeo MD [address] [place] [address] PCP - General Family Medicine 09/15/21
--- NOTE | 2024-08-11 11:41 | XR_ITS ---
FINAL REPORT CLINICAL HISTORY: dyspnea cough wheezing congestion COMPARISON: 08/01/2024 FINDINGS: No acute pulmonary density is evident. There is no evidence of effusion or other pleural disease. The mediastinum has a normal appearance. The cardiac silhouette is unremarkable. IMPRESSION: Unremarkable chest exam. Reviewed, Interpreted and Dictated by Dandy Ascencio MD Transcribed by Isabel Colón Authenticated and . [facility]
[2024-08-11 12:29] LABS: Coronavirus 19, PCR Not Detected (NotDetected); Influenza A, PCR Not Detected (NotDetected); Influenza B, PCR Not Detected (NotDetected); Respiratory Syncytial Virus Not Detected (NotDetected)
[2024-08-11 14:47] LABS: Human Rhinovirus Detected (NotDetected)
== END 2024-08-11 23:59 | disposition home or self-care (01) ==
LOC: RAD 11:38
PROVIDERS: PCP Internal Medicine; Visit Provider Nurse Practitioner Family
DX: R06.2 Wheezing (principal); R06.00 Dyspnea, unspecified; R05.9 Cough, unspecified; R09.89 Other specified symptoms and signs involving the circulatory and respiratory systems
CPT/HCPCS: 71046; 87631

== ENCOUNTER 2024-08-25 08:36 | Outpatient (CLI) | payer MEDICARE, BC, SELFPAY ==
--- OUTSIDE RECORDS SUMMARY | 2024-08-11 08:20 | XMS_ITS | Encounter Summary ---
Author Organization [facility] Address [address] [place] [address] Care Team Providers Care Motion Picture Operator Name Role Phone Maegan Bermeo MD Primary Care Provider [phone] Reason for Referral * Other Medical (Routine) - Pending Review Specialty Diagnoses / Procedures Referred By Contac t Referred To Contact Diagnoses Ulcer of toe of left foot, with fat layer exposed (CMS/HCC) Procedures Debridement Raimundo Hatch DPM [address] [address] Phone: tel: fax: Referral ID Status Reason Start Date Expiration Date V isits Requested Visits Authorized [id number] Pending Review 08/11/2024 02/10/2026 1 1 * Other Medical (Routine) - Pending Review Specialty Diagnoses / Procedures Referred By Contac t Referred To Contact Diagnoses Ulcer of toe of left foot, with fat layer exposed (CMS/HCC) Procedures Debridement Raimundo Hatch DPM [address] [facility] [address] [place] [address] Phone: tel: fax: Referral ID Status Reason Start Date Expiration Date V isits Requested Visits Authorized [id number] Pending Review 08/11/2024 02/10/2026 1 1 Reason [...] [address] [place] [address] [place] [address] Phone: tel: fax: Referral ID Status Reason Start Date Expiration Date V isits Requested Visits Authorized [id number] Closed Specialty Services Required 07/26/2024 01/25/2026 1 1 Encounter Details Date Type Department Care Team (Latest Contact Info) Description 08/11/2024 8:20 AM EDT [facility] [address] 5th Floor [address] [place] [address] Raimundo Hatch, DESTINY [address] [facility] [address] [place] [address] Ulcer of toe of left foot, with fat layer exposed ([facility]/HCC) (Primary Dx); Diabetic neuropathy with neurologic complication ([facility]/HCC); Hammer toe, acquired Social History Tobacco Use [...] drink first t ken in the morning (EYE-CARDIAC SONOGRAPHER) to steady your nerves or to get [...] Stoner RN - 08/11/2024 8:20 AM EDT [facility] Physician Orders/Patient Instructions Should you [...] note were not included. Left 3rd toe- [facility] Previous provider ordered x-rays/CT scan at [facility], suspicious for osteomyelitis. * Progress Notes - Raimundo Hatch DPM - 08/11/2024 8:20 AM EDTAssociated Order(s): Debridement Post-Procedure Diagnose(s): Ulcer of toe of left foot, with fat layer exposed ([facility]) Subjective Rica Flannery is a 68 y.o. [...] correct patient, procedure, equipment, ground support equipment fitter, and site/side marked as required. Debridement Details [...] amputation in the event of acute worsening. [employer] direct dictation software was utilized in part [...] Description 09/15/2024 10:40 AM EDT Office Visit [facility] [address] [facility] 5th Floor [address] [place] [address] Raimundo Hatch DPM [address] [place] [address] Scheduled Orders Name Type Priority Associated Diagnoses Orde r Schedule Debridement Procedures Routine Ulcer of toe of left foot, with fat layer exposed (CMS/HCC) 1 Occurrences starting 08/11/2024 until 10/11/2024 documented as of this encounter Procedures Procedure Name Priority Date/Time Associated Diagnosis Comments [place] DEBRIDEMENT, SKIN, SUB-Q TISSUE,=<20 SQ CM Routine 08/11/2024 8:20 AM EDT Ulcer of toe of left foot, with fat layer exposed (CMS/HCC) documented in this encounter Results * TN DEBRIDEMENT, SKIN, SUB-Q TISSUE,=<20 SQ CM (08/11/2024 [...] correct patient, procedure, equipment, ground support equipment fitter, and site/side marked as required. Debridement Details [...] documented as of this encounter Care Teams Motion Picture Operator Relationship Specialty Start Date End Date Maegan Bermeo MD [address] [place] [address] PCP - General Family Medicine 09/15/21 documented as of this encounter
--- OUTSIDE RECORDS SUMMARY | 2024-08-18 09:20 | XMS_ITS | Encounter Summary ---
Author Organization [facility] Address [address] [place] [address] Care Team Providers Care Casing In Line Feeder Name Role Phone Maegan Bermeo MD Primary Care Provider Reason for Visit * Reason Comments Foot Ulcer Encounter Details Date Type Department Care Team (Latest Contact Info) Description 08/18/2024 9:20 AM EDT Office Visit [place] [facility] [address] 5[address] [place] [address] Raimundo Hatch, DPM [address] [place] [address] Hammmiguel toe, acquired (Primary Dx) [...] drink first t ken in the morning (EYE-SOFTWARE APPLICATIONS SPECIALIST) to steady your nerves or to [...] Description 09/15/2024 10:40 AM EDT Office Visit [facility] [address] [facility] 5th Floor [address] [place] [address] Raimundo Hatch DPM [address] [facility] [address] [place] [address] documented as of this encounter Visit Diagnoses [...] documented as of this encounter Care Teams Casing In Line Feeder Relationship Specialty Start Date End Date Maegan Bermeo MD [facility] [place] [address] PCP - General Family Medicine 09/15/21 documented as of this encounter
--- OUTSIDE RECORDS SUMMARY | 2024-08-25 08:39 | XMS_ITS | Encounter Summary ---
Author Organization [facility] Address [address] [place] [address] Care Team Providers Care Alternative Medicine Practitioner Name Role Phone Maegan Bermeo MD Primary Care Provider [phone] Encounter Details Date Type Department Care Team (Latest Contact Info) Description 08/18/2024 Travel Social History Tobacco Use Types Packs/Day [...] drink first t ken in the morning (EYE-OCCUPATIONAL THERAPY AIDE) to steady your nerves or to get [...] Description 09/15/2024 10:40 AM EDT Office Visit [place] [facility] [address] [facility] 5th Floor [address] [place] [address] Raimundo Hatch, DESTINY [address] [facility] [address] [place] [address] documented as of this encounter Visit Diagnoses Not on filedocumented in this encounter Additional Health Concerns Assessment Noted Time A fall risk assessment has been complete d for the patient 08/18/2024 8:33 AM EDT A Body Mass Index follow-up plan has been documented for the patient 08/18/2024 9:31 AM EDT documented as of this encounter Care Teams Alternative Medicine Practitioner Relationship Specialty Start Date End Date Maegan Bermeo MD [address] [place] [address] PCP - General Family Medicine 09/15/21 documented as of this encounter
--- OUTSIDE RECORDS SUMMARY | 2024-08-25 08:39 | XMS_ITS | Encounter Summary ---
Author Organization [facility] Address [address] [place] [address] Care Team Providers Care Software Sales Executive Name Role Phone Maegan Bermeo MD Primary Care Provider [phone] Encounter Details Date Type Department Care Team (Late st Contact Info) Description 07/08/2024 Orders Only External Location [address] [place] [id number] Provider, External Social History Tobacco Use Types [...] drink first t ken in the morning (EYE-CROP ROLLER) to steady your nerves or to get [...] Description 09/15/2024 10:40 AM EDT Office Visit [place] [facility] [address] 5[address] [place] [address] Raimundo Hatch DPM [address] [place] [address] documented as of this encounter [...] documented as of this encounter Care Teams Software Sales Executive Relationship Specialty Start Date End Date Maegan Bermeo MD [address] [place] [address] PCP - General Family Medicine 09/15/21 documented as of this encounter
--- OUTSIDE RECORDS SUMMARY | 2024-08-25 08:39 | XMS_ITS | Encounter Summary ---
Author Organization [facility] Address [address] [place] [address] Care Team Providers Care Dicer Operator Name Role Phone Jan Castelan MD Primary Care Provider [phone] Benjie Quezada MD Primary Care Provider Tamika Loomis APRN Primary Care Provider [phone] Maegan Bermeo MD Primary Care Provider [phone] Audra Wahl DIGITAL CIRCUIT DESIGNER Unavailable Unavailab Jessa Jimenez DIGITAL CIRCUIT DESIGNER Unavailable Unavailable Reason for Visit * Reason Comments Med Refill Encounter Details Date Type Department Care Team (Late st Contact Info) Description 02/22/2021 Refill [facility] [address] [place] [address] Jan Castelan MD [address] [place] [address] Uncontrolled type 2 diabetes mellitus with hyperglycemia ([facility]) Social History Tobacco Use Types Packs/Day Years [...] Description 09/15/2024 10:40 AM EDT Office Visit [facility] [address] [facility] 5th Floor [address] [place] [address] Raimundo Hatch DPDestiny [address] [facility] [address] [place] [address] documented as of this encounter [...] and sent to appropriate Health Dept. IPAC Mica Miner: Nimco Simms 10/26/2021 10/26/2021 022 10:27 AM EDT COVID 19 (Confirmed) 11/11/2021 11/11/2021 022 5:23 AM EDT COVID-19 Rule-Out 05/16/2022 05/16/2022 05/16/2022 11:05 PM EDT documented as of this encounter Care Teams Dicer Operator Relationship Specialty Start Date End Date Jan Castelan MD [facility] [place] [address] [address] PCP - General 07/02/20 08/07/21 Benjie Quezada MD [address] [facility] [address] [place] [address] PCP - General Family Medicine 08/08/21 08/30/21 Tamika Loomis APRN [address] [facility] [address] [place] [address] PCP - General Family Medicine 08/31/21 09/14/21 Maegan Bermeo MD [address] [place] [address] PCP - General Family Medicine 09/15/21 Audra Wahl LPN [employer] [place] [address] TCM Nurse 09/27/21 10/27/21 Jessa Park LPN [employer] [place] [address] Registered Nurse 05/26/22 05/26/22 documented as of this encounter
--- OUTSIDE RECORDS SUMMARY | 2024-08-25 08:39 | XMS_ITS | Encounter Summary ---
Author Organization [facility] Address [address] [place] [address] Care Team Providers Care Revenue Stamp Cutter Name Role Phone Maegan Bermeo MD Primary Care Provider [phone] Encounter Details Date Type Department Care Team [...] drink first t ken in the morning (EYE-BLENDER HELPER) to steady your nerves or to get [...] Description 09/15/2024 10:40 AM EDT Office Visit [place] [facility] [address] [facility] 5th Floor [address] [place] [address] Raimundo Hatch DPM [address] [facility] [address] [place] [address] documented as of this encounter Visit Diagnoses Not on filedocumented in this encounter Additional Health Concerns Assessment Noted Time A fall risk assessment has been complete d for the patient 06/07/2022 11:09 AM EDT A Body Mass Index follow-up plan has been documented for the patient 08/11/2024 8:45 AM EDT documented as of this encounter Care Teams Revenue Stamp Cutter Relationship Specialty Start Date End Date Maegan Bermeo MD [address] [place] [address] PCP - General Family Medicine 09/15/21 documented as of this encounter
--- OUTSIDE RECORDS SUMMARY | 2024-08-25 08:39 | XMS_ITS | Encounter Summary ---
Author Organization Healthcare Address [address] [place] [address] Care Team Providers Care Steam Brush Operator Name Role Phone Tyler Castelan MD Primary Care Provider [phone] Benjie Quezada MD Primary Care Provider Tamika Loomis APRN Primary Care Provider [phone] Maegan Bermeo MD Primary Care Provider [phone] Audra Wahl TUBULAR PRODUCTS FABRICATOR Unavailable Unavailab Jessa Jimenez TUBULAR PRODUCTS FABRICATOR Unavailable Unavailable Encounter Details Date Type Department Care Team (Late st Contact Info) Description 06/28/2021 Outside Procedure External Location [address] [place] [phone] Tyler Castelan MD [address] [place] [address] Social History Tobacco Use Types [...] Description 09/15/2024 10:40 AM EDT Office Visit [facility] [address] 5th Floor Wing [address] [place] [address] Raimundo Hatch E, DPM [address] [place] [address] documented as of this encounter Procedures Procedure Name Priority Date/Time Associated Diagnosis Comments VAS US VENOUS DUPLEX LOWER EXTREMITY UNILATERAL 06/28/2021 2:51 PM EDT documented in this encounter Results * VAS US Venous Duplex Lower Extremity Unilateral (06/28/2021 2:51 PM EDT) Anatomical Region Laterality Modality Lower Extremities Ultrasound 06/28/2021 2:51 PM EDT Narrative 06/28/2021 4:35 [place] [address] Name: RICA FLANNERY Exam Date: 06/28/2021 : 1955 Age 65 Gender: F Physician: TYLER CASTELAN Facility: [facility] Facility HSV: Outpatient Exam: VENOUS DUPLEX [...] Thank you for referring RICA FLANNERY to [facility]. Legally authenticated by KWAME HARGROVE 2021-06-28 16:23:11 Procedure Note Provider, Generic [place] - 06/28/2021 [place] [address] Name: RICA FLANNERY Exam Date: 06/28/2021 : 1955 Age 65 Gender: F Physician: TYLER CASTELAN Facility: [facility] Facility HSV: Outpatient Exam: VENOUS DUPLEX [...] Thank you for referring RICA FLANNERY to [facility]. Legally authenticated by KWAME HARGROVE 2021-06-28 [...] and sent to appropriate Health Dept. IPA Kiln Hand: Nimco Simms 10/26/2021 10/26/2021 10:27 AM EDT COVID 19 (Confirmed) 11/11/2021 11/11/2021 022 5:23 AM EDT COVID-19 Rule-Out 05/16/2022 05/16/2022 05/16/2022 11:05 PM EDT Assessment Noted Time A fall risk assessment has been complete d for the patient 06/28/2021 10:46 AM EDT documented as of this encounter Care Teams Steam Brush Operator Relationship Specialty Start Date End Date Tyler Castelan MD [address] [place] [address] PCP - General 07/02/20 08/07/21 Benjie Quezada MD [address] [facility] [address] [place] [address] PCP - General Family Medicine 08/08/21 08/30/21 Tamika Loomis APRN [address] [facility] [address] [place] [address] PCP - General Family Medicine 08/31/21 09/14/21 Maegan Bermeo MD [address] [place] [address] PCP - General Family Medicine 09/15/21 Audra Wahl LPN VALUE-[employer]ED [place] [address] TCM Nurse 09/27/21 10/27/21 Jessa Park LPN VALUE-[employer]ED [place] [address] Registered Nurse 05/26/22 05/26/22 documented as of this encounter
--- OUTSIDE RECORDS SUMMARY | 2024-08-25 08:39 | XMS_ITS | Encounter Summary ---
Author Organization Healthcare Address [address] [place] [address] Care Team Providers Care Coarse Wire Drawer Name Role Phone Maegan Bermeo MD Primary Care Provider [phone] Encounter Details Date Type Department Care Team (Late st Contact Info) Description 07/03/2024 Orders Only External Location [address] [place] [phone] Provider, External Social History Tobacco Use Types [...] drink first t ken in the morning (EYE-SOAP DRIER OPERATOR) to steady your nerves or to [...] Description 09/15/2024 10:40 AM EDT Office Visit [place] [facility] [address] 5th Floor [address] [place] [address] Raimundo Hatch, DESTINY [address] [place] [address] documented as of this encounter [...] documented as of this encounter Care Teams Coarse Wire Drawer Relationship Specialty Start Date End Date Maegan Bermeo MD [address] [place] [address] PCP - General Family Medicine 09/15/21 documented as of this encounter
--- OUTSIDE RECORDS SUMMARY | 2024-08-25 08:39 | XMS_ITS | Encounter Summary ---
Author Organization [facility] Address [address] [place] [address] Care Team Providers Care Chain Maker Name Role Phone Maegan Bermeo MD Primary Care Provider [phone] Audra Wahl AUTOMATED ACCESS SYSTEMS TECHNICIAN Unavailable Unavailab Jessa Jimenez AUTOMATED ACCESS SYSTEMS TECHNICIAN Unavailable Unavailable Reason for Visit * Reason Comments Med Refill Encounter Details Date Type Department Care Team (Late st Contact Info) Description 10/11/2021 Refill Family and Community Medicine [address] [place] [address] Maegan Bermeo MD [address] [place] [address] Avitaminosis D Social History Tobacco [...] Description 09/15/2024 10:40 AM EDT Office Visit [place] [facility] [address] [facility] 5th Floor [address] [place] [address] Raimundo Hatch DPM [address] [facility] [address] [place] [address] documented as of this encounter Visit Diagnoses Diagnosis Avitaminosis D Unspecified vitamin D deficiency documented in this encounter Additional Health Concerns Infection Onset Date Last Indicated Resolved Time COVID 19 (Confirmed) Comment:Patient is >10 days from COVID test date on 10/26/2021 and patient no longer needs COVID isolation as patient is asymptomatic, not immunocompromised. Team aware. EVS notified. [facility] has verified patient has a COVID-19 positive result. A chart review has been completed, EPI PUI has been completed and sent to appropriate Health Dept. IPAC Seam Steamer: Nimco Simms 10/26/2021 10/26/2021 022 10:27 AM EDT COVID 19 (Confirmed) 11/11/2021 11/11/2021 022 5:23 AM EDT COVID-19 Rule-Out 05/16/2022 05/16/2022 05/16/2022 11:05 PM EDT Assessment Noted Time A fall risk assessment has been complete d for the patient 10/11/2021 11:31 AM EDT documented as of this encounter Care Teams Chain Maker Relationship Specialty Start Date End Date Maegan Bermeo MD [address] [place] [address] PCP - General Family Medicine 09/15/21 Audra Wahl LPN [employer] [place] [address] TCM Nurse 09/27/21 10/27/21 Jessa Park LPN [employer] [place] [address] Registered Nurse 05/26/22 05/26/22 documented as of this encounter
--- OUTSIDE RECORDS SUMMARY | 2024-08-25 08:39 | XMS_ITS | Encounter Summary ---
Author Organization [facility] Address [address] [place] [address] Care Team Providers Care Vest Tailor Name Role Phone Maegan Bremeo MD Primary Care Provider [phone] Jessa Park LPN Unavailable Unavailable Reason for Visit * Reason Comments Med Refill Encounter Details Date Type Department Care Team (Late st Contact Info) Description 11/26/2021 Refill Family and Community Medicine [address] [place] [address] Benjie Quezada MD [address] [facility] [address] [place] [address] Social History Tobacco Use Types [...] Description 09/15/2024 10:40 AM EDT Office Visit [place] [facility] [address] [facility] 5th Floor [address], [address] [place] [address] Raimundo Hatch DPM [address] [facility] [address] [place] [address] documented as of this encounter Visit Diagnoses [...] documented as of this encounter Care Teams Vest Tailor Relationship Specialty Start Date End Date Maegan Bermeo MD [address] [place] [address] PCP - General Family Medicine 09/15/21 Jessa Park LPN [employer] [place] [address] Registered Nurse 05/26/22 05/26/22 documented as of this encounter
--- OUTSIDE RECORDS SUMMARY | 2024-08-25 08:39 | XMS_ITS | Encounter Summary ---
Author Organization Healthcare Address [address] [place] [address] Care Team Providers Care Assistant Housekeeping Manager Name Role Phone Maegan Bermeo MD Primary Care Provider [phone] Encounter Details Date Type Department Care Team (Late st Contact Info) Description 07/10/2024 Orders Only External Location [address] [place] [phone] Provider, External Social History Tobacco Use Types [...] drink first t ken in the morning (EYE-FLIGHT MECHANIC) to steady your nerves or to get [...] Description 09/15/2024 10:40 AM EDT Office Visit [place] [facility] [address] 5th Floor [address] [place] [address] Raimundo Hatch, DESTINY [address] [place] [address] documented as of this encounter [...] documented as of this encounter Care Teams Assistant Housekeeping Manager Relationship Specialty Start Date End Date Maegan Bermeo MD [address] [place] [address] PCP - General Family Medicine 09/15/21 documented as of this encounter
--- OUTSIDE RECORDS SUMMARY | 2024-08-25 08:39 | XMS_ITS | Encounter Summary ---
Author Organization Healthcare Address [address] [place] [address] Care Team Providers Care Quality Specialist Name Role Phone Maegan Bermeo MD Primary Care Provider [phone] Encounter Details Date Type Department Care Team (Late st Contact Info) Description 03/11/2024 Orders Only External Location [address] [place] [address] Provider, External Social History Tobacco Use Types [...] drink first t ken in the morning (EYE-DESULPHURIZER OPERATOR) to steady your nerves or to [...] Description 09/15/2024 10:40 AM EDT Office Visit [place] [facility] [address] 5th Floor [address] [place] [address] Raimundo Hatch DPM [address] [place] [address] documented as of this encounter [...] documented as of this encounter Care Teams Quality Specialist Relationship Specialty Start Date End Date Maegan Bermeo MD [address] [place] [address] PCP - General Family Medicine 09/15/21 documented as of this encounter
--- OUTSIDE RECORDS SUMMARY | 2024-08-25 08:39 | XMS_ITS | Encounter Summary ---
Author Organization Healthcare Address [address] [place] [address] Care Team Providers Care Outsoles Channel Opener Name Role Phone Jan Castelan MD Primary Care Provider [phone] Benjie Quezada MD Primary Care Provider Tamika Loomis APRN Primary Care Provider [phone] Maegan Bermeo MD Primary Care Provider [phone] Audra Wahl GRADING CLERK Unavailable Unavailab Jessa Jimenez GRADING CLERK Unavailable Unavailable Reason for Visit * Reason Comments Med Refill Encounter Details Date Type Department Care Team (Late st Contact Info) Description 07/27/2020 Refill Family and Community Medicine [address] [place] [address] Jan Castelan MD [address] [place] [address] Social History Tobacco Use Types [...] 07/29/2020 7:49 AM EDT Rx sent to [facility] for Nortriptyline 50mg 1 at bedtime #30 + 1 refill. Please make appt forfurther refills. Patient was to return to clinic in 3mos after last visit in June. documented in this encounter Plan of Treatment Upcoming Encounters Date Type Department Care Team (Late st Contact Info) Description 09/15/2024 10:40 AM EDT Office Visit [facility] [address] [facility] 5th Floor [address] [place] [address] Raimundo Hatch, DPDestiny [address] [facility] [address] [place] [address] documented as of this encounter [...] and sent to appropriate Health Dept. IPAC Processing Assistant: Nimco Simms 10/26/2021 10/26/2021 022 10:27 AM EDT COVID 19 (Confirmed) 11/11/2021 11/11/2021 022 5:23 AM EDT COVID-19 Rule-Out 05/16/2022 05/16/2022 05/16/2022 11:05 PM EDT documented as of this encounter Care Teams Outsoles Channel Opener Relationship Specialty Start Date End Date Jan Castelan MD [address] [place] [address] PCP - General 07/02/20 08/07/21 Benjie Quezada MD [address] [place] [address] PCP - General Family Medicine 08/08/21 08/30/21 Tamika Loomis APRN [address] [place] [address] PCP - General Family Medicine 08/31/21 09/14/21 Maegan Bermeo MD [address] [place] [address] PCP - General Family Medicine 09/15/21 Audra Wahl LPN VALUE-[employer]ED [place] [address] TCM Nurse 09/27/21 10/27/21 Jessa Park LPN VALUE-[employer]ED [place] [address] Registered Nurse 05/26/22 05/26/22 documented as of this encounter
--- OUTSIDE RECORDS SUMMARY | 2024-08-25 08:39 | XMS_ITS | Encounter Summary ---
Author Organization [facility] Address [address] [place] [address] Care Team Providers Care Clinical Fellow Name Role Phone Jan Castelan MD Primary Care Provider [phone] Benjie Quezada MD Primary Care Provider Tamika Loomis APRN Primary Care Provider [phone] Maegan Bermeo MD Primary Care Provider [phone] Audra Wahl SURGERY AIDE Unavailable Unavailab Jessa Jimenez SURGERY AIDE Unavailable Unavailable Reason for Visit * Reason Comments Med Refill Encounter Details Date Type Department Care Team (Late st Contact Info) Description 12/28/2020 Refill Family and Community Medicine [address] [place] [address] Jan Castelan MD [address] [place] [address] Social History Tobacco Use Types [...] Description 09/15/2024 10:40 AM EDT Office Visit [facility] [address] 5th Floor [address] [place] [address] Raimundo Hatch, DPDestiny [address] [place] [address] documented as of this encounter Visit Diagnoses Not on filedocumented in this encounter Additional Health Concerns Infection Onset Date Last Indicated Resolved Time COVID 19 (Confirmed) Comment:Patient is >10 days from COVID test date on 10/26/2021 and patient no longer needs COVID isolation as patient is asymptomatic, not immunocompromised. Team aware. EVS notified. [facility] has verified patient has a COVID-19 positive result. A chart review has been completed, EPI PUI has been completed and sent to appropriate Health Dept. [facility] Drawer Upfitter: Nimco Simms 10/26/2021 10/26/2021 022 10:27 AM EDT COVID 19 (Confirmed) 11/11/2021 11/11/2021 022 5:23 AM EDT COVID-19 Rule-Out 05/16/2022 05/16/2022 05/16/2022 11:05 PM EDT documented as of this encounter Care Teams Clinical Fellow Relationship Specialty Start Date End Date Jan Castelan MD [address] [place] [address] PCP - General 07/02/20 08/07/21 Benjie Quezada MD [address] [place] [address] PCP - General Family Medicine 08/08/21 08/30/21 Tamika Loomis APRN [address] [place] [address] PCP - General Family Medicine 08/31/21 09/14/21 Maegan Bermeo MD [address] [place] [address] PCP - General Family Medicine 09/15/21 Audra Wahl LPN [employer] [place] [address] TCM Nurse 09/27/21 10/27/21 Jessa Park LPN VAL[employer] [place] [address] Registered Nurse 05/26/22 05/26/22 documented as of this encounter
--- OUTSIDE RECORDS SUMMARY | 2024-08-25 08:39 | XMS_ITS | Clinical Summary ---
Author Organization [facility] Address [address] [place] [address] Care Team Providers Care Solution Developer Name Role Phone Maegan Bermeo MD Primary Care Provider [phone] Allergies Active Allergy Reactions Criticality Noted Date [...] night as needed for sleep. 5 Active promethazine-dextr omethorphan (Phenergan-DM) 6.25-15 MG/5ML syrup TAKE 5 ML BY MOUTH EVERY 4 TO 6 HOURS NEEDED FOR COUGH 5 Active Hospital, Clinic, or Other Facility [...] is elevated above patient's baseline of around 6443-8135 -most recent echo obtained in October 2021 [...] but pain at time of arrival to [facility] PLAN: -pain control initially with p.r.n. Tylenol [...] Encounters Date Type Department Care Team Description 08/18/2024 9:20 AM EDT Office Visit [facility] [address] [place] [address] Raimundo Hatch DPM Hammer toe, acquired (Primary Dx) 08/18/2024 Travel 08/11/2024 8:20 AM EDT Office Visit [facility] [place] [address] [place] [address] Raimundo Hatch DPM Ulcer of toe of left foot, with fat layer exposed (CMS/HCC) (Primary Dx); Diabetic neuropathy with neurologic complication (CMS/HCC); Hammer toe, acquired 08/11/2024 Travel 07/30/2024 Telephone [facility] [place] [address] [place] [address] Raimundo Hatch DPM 07/10/2024 Orders Only External Location [address] [place] [address] Provider, External 07/08/2024 Orders Only External Location [address] [place] [address] Provider, External 07/03/2024 Orders Only External Location [address] [place] [address] Provider, External from Last 3 Months Immunizations [...] first t ken in the morning (EYE-CROP AND SOIL TECHNICIAN) to steady your nerves or to get [...] F) 08/18/2024 8:30 AM EDT Respiratory Rate 19 06/07/2022 10:55 AM EDT Oxygen Saturation 94% 08/11/2024 8:00 AM EDT Inhaled Oxygen Concentration - - Weight 104 kg (229 lb 4.5 oz) 08/18/2024 8:30 AM EDT Height 165.1 cm (5' 5 ) 08/18/2024 8:30 AM EDT Body Mass Index 38.15 08/18/2024 8:30 AM EDT Plan of Treatment Upcoming Encounters Date Type Department Care Team (Late st Contact Info) Description 09/15/2024 10:40 AM EDT Office Visit [place] [facility] [address] 5th Floor [address] [place] [address] Raimundo Hatch, DPDestiny [address] [facility] [address] [place] [address] Health Maintenance Due Date Last [...] Additional history exists [facility]-Depression Screening 06/08/2023 06/07/2022 [id number] Vaccine ( season) 2023 01/05/2022, 01/07/2021, 06/11/2020, Additional history exists [facility]-Influenza Vaccine (#1) 10/20/202401/07, 01/07/2021, 01/07/2020, Additional history exists [facility]-Hepatitis C Screening Completed 09/24/2021 [facility]-Obesity Intervention Completed 025, 08/11/2024, 06/07/2022, Additional history exists HPV Vaccines Aged Out [...] provider verified the correct patient, procedure, equipment, senior technical support analyst, and site/side marked as required. Debridement Details [...] 5.5 <5.7 % 03/01/2022 1:22 PM EST [facility] Blood Venous blood specimen / Unknown Venipuncture / Unknown 03/01/2022 8:45 AM EST 03/01/2022 8:45 AM EST Narrative [facility] - 03/01/2022 1:22 PM EST HA1C Interpretive Data: Diagnosis of Diabetes: Diabetic > or = 6.5% Pre-diabetic 5.7 to 6.4% Non-diabetic < or = 5.6% Glycemic Targets for Type I and Type II Diabetics: Non- Adults <7.0% Adults <6.0% Children and Adolescents <7.5% Source: [place] [employer]. Standards of medical care in diabetes,2017. Diabetes Care.2017:40 (suppl 1):S1-S135. HbA1c assay performed by an ion-exchange chromatography method that is certified traceable to the DCCT. us Maegan Bermeo MD LAB BLOOD ORDERABLES Final Re sult Performing Organization Address City/[facility] Co de Phone Number HEALTHCARE LAB [address] [place] [address] * Hepatitis C Antibody - ED (09/24/2021 7:52 AM EDT) Hepatitis C Antibody Negative Negative 09/24/2021 9:51 AM EDT [facility] Blood Venous blood specimen / Unknown Venipuncture / Unknown 09/24/2021 7:52 AM EDT 09/24/2021 8:10 AM EDT Farida Sharif MD LAB BLOOD ORDERABLES Final Res ult Performing Organization Address [facility] Co de Phone Number HEALTHCARE LAB [address] [place] [address] * MAMMOGRAPHY EXTERNAL RESULTS (01/20/2019) Anatomical Region Laterality Modality Mammography Narrative 01/20/2019 Ordered by an unspecified provider. us External Provider IMG BI PROCEDURES Final Result * (ABNORMAL) Cologuard (02/16/2018 8:42 AM EST) Cologuard Positive(Y) [employer] 02/16/2018 8:42 AM EST Historical Provider LAB MOLECULAR DIAGNOSTICS ORDERABLES Final Result Performing Organization Address City/[facility] Co de Phone Number [employer] from Last 3 Months or Most Recently Relevant to Health Maintenance [place] [address] ANTHEM Advance Directives * DNR/DNI (Latest Code Status [...] Patient has decision-making capacity? Yes Care Teams Solution Developer Relationship Specialty Start Date End Date Maegan Bermeo MD [address] [place] [address] PCP - General Family Medicine 09/15/21
--- OUTSIDE RECORDS SUMMARY | 2024-08-25 08:39 | XMS_ITS | Encounter Summary ---
Author Organization Healthcare Address [address] [place] [address] Care Team Providers Care Steel Heater Name Role Phone Maegan Bermeo MD Primary Care Provider [phone] Encounter Details Date Type Department Care Team (Late st Contact Info) Description 07/30/2024 Telephone [place] [facility] [address] [facility] 5th Floor [address] [place] [address] Raimundo Hatch, DPM [address] [facility] [address] [place] [address] Social History Tobacco Use Types [...] drink first t ken in the morning (EYE-EQUIPMENT INSTALLER) to steady your nerves or to get [...] Description 09/15/2024 10:40 AM EDT Office Visit [place] [facility] [address] 5th Floor [address] [place] [address] Raimundo Hatch, DPM [address] [facility] [address] [place] [address] documented as of this encounter Visit Diagnoses Not on filedocumented in this encounter Additional Health Concerns Assessment Noted Time A fall risk assessment has been complete d for the patient 06/07/2022 11:09 AM EDT A Body Mass Index follow-up plan has been documented for the patient 06/07/2022 11:30 AM EDT documented as of this encounter Care Teams Steel Heater Relationship Specialty Start Date End Date Maegan Bermeo MD [address] [place] [address] PCP - General Family Medicine 09/15/21 documented as of this encounter
--- NOTE | 2024-08-25 08:45 | CA_ITS ---
APPROVED REPORT EXAM: Comprehensive 2D, Doppler, and color-flow Echocardiogram Motor Scooter Mechanic: Estefany Mack RVT Ht: 5 ft 3 in Wt: 233lbs BSA: 2.06 BP: 104/61 mmHg Indications: HFpEF,CHECK TR SEVERITY 2D Dimensions LA Volume 74.10 mL LA Volume Index 35.80 mL/m2 (M/F) 16-34 M-Mode Dimensions RVDd 4.13 cm (0.9-2.6) LA Diam 4.20 cm (1.9-4.0) LVDd 3.56 cm (3.5-5.7) LVDs 2.78 cm (3.5-5.7) IVSd 1.51 cm (0.6-1.1) PWd 1.01 cm (0.6-1.1) EF (Teich) 45.30% FS 21.90% EDV (Teich) 53.00 mL ESV (Teich) 29.00 mL LV Diastology E Decel Time 223 (160-240 msec) E/A Ratio 7.2 Aortic Valve OLIVA Index 1.17 cm2/m2 AoV Peak Austen. 89.0 (50-130 cm/s) AO Peak GR. 3.20 mmHg AO Mean GR. 2.40 (<5 mmHg) AO VTI 18.0 (18-25 cm) OLIVA (VTI) 2.46 (2.5-4.5 cm2) Mitral Valve MV E Max Austen. 129.0 (40-130 cm/s) MV A Velocity 18.0 (40-130 cm/s) E/A Ratio 7.15 MV PHT 65.0 ms Pulmonary Valve PV Peak Velocity 72.0 (50-150 cm/s) Tricuspid Valve TR P. Velocity 443.00 cm/s RAP Estimate 10.00 mmHg RVSP 88.60 mmHg Left Ventricle The left ventricle is normal size. The left ventricular systolic function is normal. The left ventricular ejection fraction is within the normal range. There is increased LV wall thickness. There is normal LV segmental wall motion. Diastolic function is indeterminate. LVEF is 55%. Right Ventricle The right ventricle is severely dilated. Right ventricle is severely hypokinetic. Atria Left atrium is mildly dilated. Right atrium is severely dilated. There is no Doppler evidence of interatrial shunt. Aortic Valve Aortic valve is mildly thickened. There is no aortic valvular stenosis. Trace aortic regurgitation. Mitral Valve The mitral valve is mildly thickened. Mild mitral regurgitation. Tricuspid Valve Tricuspid valve is grossly normal in structure and function. Severe tricuspid regurgitation. RVSP is > 60 mmHg. Pulmonic Valve The pulmonary valve is normal in structure. Mild pulmonic regurgitation. Great Vessels The aortic root is normal in size. The IVC is dilated. Pericardium There is no pericardial effusion. Other Information Study Quality: Technically Difficult Conclusion Technically difficult study due to poor acoustic windows. Normal LV systolic function. Severe RV dilation with severe reduction in RV function. Biatrial dilation. Severe TR. Mild PI, mild MR. Markedly elevated RVSP > 60 mmHg. Electronically signed by : Ruth Carreno MD 08/26/2024 10:05:48
== END 2024-08-25 23:59 | disposition home or self-care (01) ==
LOC: RT 08:38
PROVIDERS: PCP Internal Medicine; Visit Provider Internal Medicine
DX: I08.8 Other rheumatic multiple valve diseases (principal); I50.813 Acute on chronic right heart failure; I50.43 Acute on chronic combined systolic (congestive) and diastolic (congestive) heart failure; I25.10 Atherosclerotic heart disease of native coronary artery without angina pectoris; R68.89 Other general symptoms and signs
CPT/HCPCS: 93306

== ENCOUNTER 2024-09-04 05:37 | Emergency (ER) | payer MEDICARE, BC, SELFPAY ==
--- OUTSIDE RECORDS SUMMARY | 2024-08-11 08:20 | XMS_ITS | Encounter Summary ---
Author Organization [facility] Address [address] [place] [address] Care Team Providers Care Senior Manufacturing Test Engineer Name Role Phone Maegan Bermeo MD Primary Care Provider [phone] Reason for Referral * Other Medical (Routine) - Pending Review Specialty Diagnoses / Procedures Referred By Contac t Referred To Contact Diagnoses Ulcer of toe of left foot, with fat layer exposed (CMS/HCC) Procedures Debridement Raimundo Hatch DPM [address] [address] Phone: tel: fax: Referral ID Status Reason Start Date Expiration Date V isits Requested Visits Authorized [id number] Pending Review 08/11/2024 02/10/2026 1 1 * Other Medical (Routine) - Pending Review Specialty Diagnoses / Procedures Referred By Contac t Referred To Contact Diagnoses Ulcer of toe of left foot, with fat layer exposed (CMS/HCC) Procedures Debridement Raimundo Hatch DPM [address] [facility] [address] [place] [address] Phone: tel: fax: Referral ID Status Reason Start Date Expiration Date V isits Requested Visits Authorized [id number] Pending Review 08/11/2024 02/10/2026 1 1 Reason [...] [address] [place] [address] [place] [address] Phone: tel: fax: Referral ID Status Reason Start Date Expiration Date V isits Requested Visits Authorized [id number] Closed Specialty Services Required 07/26/2024 01/25/2026 1 1 Encounter Details Date Type Department Care Team (Latest Contact Info) Description 08/11/2024 8:20 AM EDT [facility] [address]th Floor [address] [place] [address] Raimundo Hatch, DESTINY [address] [facility] [address] [place] [address] Ulcer of toe of left foot, with fat layer exposed ([facility]/HCC) (Primary Dx); Diabetic neuropathy with neurologic complication ([facility]/HCC); Hammer toe, acquired Social History Tobacco Use [...] drink first t ken in the morning (EYE-HOME HEALTH PHYSICAL THERAPIST) to steady your nerves or to get [...] does not drink 08/11/2024 8:01 AM EDT eRnetta Saleh Q3: How often do you have six or more drinks on one occasion? Never 08/11/2024 8:01 AM EDT Renetta Saleh documented as of this encounter Miscellaneous Notes * Patient Instructions - Mitali Stoner RN - 08/11/2024 8:20 AM EDT [facility] Physician Orders/Patient Instructions Should you notice [...] note were not included. Left 3rd toe- [facility] Previous provider ordered x-rays/CT scan at [facility], suspicious for osteomyelitis. * Progress Notes - Raimundo Hatch DPM - 08/11/2024 8:20 AM EDTAssociated Order(s): Debridement Post-Procedure Diagnose(s): Ulcer of toe of left foot, with fat layer exposed ([facility]) Subjective Rica Flannery is a 68 [...] has been seeing a physician in the [facility]. She has had previous MRI and arterial [...] provider verified the correct patient, procedure, equipment, supportability engineer, and site/side marked as required. Debridement Details [...] amputation in the event of acute worsening. [employer] direct dictation software was utilized in part [...] Care Team (Late st Contact Info) Description 09/15/2024 10:40 AM EDT Office Visit [facility] [address] [facility] 5th Floor [address] [place] [id number] Raimundo Hatch DPM [address] [place] [address] Scheduled Orders Name Type Priority Associated Diagnoses Orde r Schedule Debridement Procedures Routine Ulcer of toe of left foot, with fat layer exposed (CMS/HCC) 1 Occurrences starting 08/11/2024 until 10/11/2024 documented as of this encounter Procedures Procedure Name Priority Date/Time Associated Diagnosis Comments RI DEBRIDEMENT, SKIN, SUB-Q TISSUE,=<20 SQ CM Routine 08/11/2024 8:20 AM EDT Ulcer of toe of left foot, with fat layer exposed (CMS/HCC) documented in this encounter Results * RI DEBRIDEMENT, SKIN, SUB-Q TISSUE,=<20 SQ CM (08/11/2024 [...] provider verified the correct patient, procedure, equipment, supportability engineer, and site/side marked as required. Debridement Details [...] documented as of this encounter Care Teams Senior Manufacturing Test Engineer Relationship Specialty Start Date End Date Maegan Bermeo MD [address] [place] [address] PCP - General Family Medicine 09/15/21 documented as of this encounter
--- OUTSIDE RECORDS SUMMARY | 2024-08-18 09:20 | XMS_ITS | Encounter Summary ---
Author Organization [facility] Address [address] [place] [address] Care Team Providers Care Secretary Of State Name Role Phone Maegan Bermeo MD Primary Care Provider [phone] Reason for Visit * Reason Comments Foot Ulcer Encounter Details Date Type Department Care Team (Latest Contact Info) Description 08/18/2024 9:20 AM EDT Office Visit [place] [facility] [address] 5th [address] [place] [address] Raimundo Hatch, DPM [address] [place] [address] Hammmiguel toe, acquired (Primary Dx) [...] drink first t ken in the morning (EYE-SAFEKEEPING CLERK) to steady your nerves or to get [...] Stoner RN - 08/18/2024 9:20 AM EDT [facility] Physician Orders/Patient Instructions Should you notice a [...] Description 09/15/2024 10:40 AM EDT Office Visit [facility] [address] [facility] 5th Floor [address] [place] [address] Raimundo Hatch DPM [address] [facility] [address] [place] [address] documented as of this encounter Visit Diagnoses [...] documented as of this encounter Care Teams Secretary Of State Relationship Specialty Start Date End Date Maegan Bermeo MD [facility] [place] [address] PCP - General Family Medicine 09/15/21 documented as of this encounter
[2024-09-04] VITALS (17 sets, daily range): BP systolic 81–121; BP diastolic 50–66; PULSE 60–80; RESP 14–20; TEMP 36.6–37.1; O2SAT 93–100; BMI 39.1
--- OUTSIDE RECORDS SUMMARY | 2024-09-04 05:44 | XMS_ITS | Encounter Summary ---
Author Organization [facility] Address [address] [place] [address] Care Team Providers Care Collision Repair Technician Name Role Phone Maegan Bermeo MD Primary Care Provider [phone] Audra Wahl ESTHETICS INSTRUCTOR Unavailable Unavailab Jessa Jimenez ESTHETICS INSTRUCTOR Unavailable Unavailable Reason for Visit * Reason Comments Med Refill Encounter Details Date Type Department Care Team (Late st Contact Info) Description 10/11/2021 Refill Family and Community Medicine [address] [place] [address] Maegan Bermeo MD [address] [place] [address] Avitaminosis D Social History Tobacco [...] [place] [facility] [address] [facility] [address]th Floor [address] [place] [address] Raimundo Hatch DPM [address] [facility] [address] [place] [address] documented as of this encounter Visit Diagnoses Diagnosis Avitaminosis D Unspecified vitamin D deficiency documented in this encounter Additional Health Concerns Infection Onset Date Last Indicated Resolved Time COVID 19 (Confirmed) Comment:Patient is >10 days from COVID test date on 10/26/2021 and patient no longer needs COVID isolation as patient is asymptomatic, not immunocompromised. Team aware. EVS notified. [facility] has verified patient has a COVID-19 positive result. A chart review has been completed, EPI PUI has been completed and sent to appropriate Health Dept. IPAC Reporting Process Consultant: Nimco Simms 10/26/2021 10/26/2021 022 10:27 AM EDT COVID 19 (Confirmed) 11/11/2021 11/11/2021 022 5:23 AM EDT COVID-19 Rule-Out 05/16/2022 05/16/2022 05/16/2022 11:05 PM EDT Assessment Noted Time A fall risk assessment has been complete d for the patient 10/11/2021 11:31 AM EDT documented as of this encounter Care Teams Collision Repair Technician Relationship Specialty Start Date End Date Maegan Bermeo MD [address] [place] [address] PCP - General Family Medicine 09/15/21 Audra Wahl LPN [employer] [place] [address] TCM Nurse 09/27/21 10/27/21 Jessa Park LPN [employer] [place] [address] Registered Nurse 05/26/22 05/26/22 documented as of this encounter
--- OUTSIDE RECORDS SUMMARY | 2024-09-04 05:44 | XMS_ITS | Encounter Summary ---
Author Organization [facility] Address [address] [place] [address] Care Team Providers Care Industrial Arts Teacher Name Role Phone Maegan Bermeo MD Primary Care Provider [phone] Jessa Park LPN Unavailable Unavailable Reason for Visit * Reason Comments Med Refill Encounter Details Date Type Department Care Team (Late st Contact Info) Description 11/26/2021 Refill Family and Community Medicine [address] [place] [address] Benjie Quezada MD [address] [facility] [address] [place] [address] Social History Tobacco Use Types [...] Description 09/15/2024 10:40 AM EDT Office Visit [place] [facility] [address] [facility] 5th Floor [address] [place] [address] Raimundo Hatch DPM [address] [facility] [address] [place] [address] documented as of this encounter Visit Diagnoses [...] documented as of this encounter Care Teams Industrial Arts Teacher Relationship Specialty Start Date End Date Maegan Bermeo MD [address] [place] [address] PCP - General Family Medicine 09/15/21 Jessa Park LPN VALUE[employer]ED [place] [address] Registered Nurse 05/26/22 05/26/22 documented as of this encounter
--- OUTSIDE RECORDS SUMMARY | 2024-09-04 05:44 | XMS_ITS | Encounter Summary ---
Author Organization [facility] Address [address] [place] [address] Care Team Providers Care Institute Director Name Role Phone Jan Castelan MD Primary Care Provider [phone] Benjie Quezada MD Primary Care Provider Tamika Loomis APRN Primary Care Provider [phone] Maegan Bermeo MD Primary Care Provider [phone] Audra Wahl PRIMER INSPECTOR Unavailable Unavailab Jessa Jimenez PRIMER INSPECTOR Unavailable Unavailable Reason for Visit * Reason Comments Med Refill Encounter Details Date Type Department Care Team (Late st Contact Info) Description 07/27/2020 Refill Family and Community Medicine [address] [place] [address] Jan Castelan MD [address] [place] [address] Social History Tobacco Use Types [...] 07/29/2020 7:49 AM EDT Rx sent to [facility] for Nortriptyline 50mg 1 at bedtime #30 + 1 refill. Please make appt forfurther refills. Patient was to return to clinic in 3mos after last visit in June. documented in this encounter Plan of Treatment Upcoming Encounters Date Type Department Care Team (Late st Contact Info) Description 09/15/2024 10:40 AM EDT Office Visit [facility] [address] [facility] 5th Floor [address] [place] [address] Raimundo Hatch, DPDestiny [address] [facility] [address] [place] [address] documented as of this encounter [...] and sent to appropriate Health Dept. IPAC Erp Analyst: Nimco Simms 10/26/2021 10/26/2021 022 10:27 AM EDT COVID 19 (Confirmed) 11/11/2021 11/11/2021 022 5:23 AM EDT COVID-19 Rule-Out 05/16/2022 05/16/2022 05/16/2022 11:05 PM EDT documented as of this encounter Care Teams Institute Director Relationship Specialty Start Date End Date Jan Castelan MD [address] [place] [address] PCP - General 07/02/20 08/07/21 Benjie Quezada MD [address] [place] [address] PCP - General Family Medicine 08/08/21 08/30/21 Tamika Loomis APRN [address] [place] [address] PCP - General Family Medicine 08/31/21 09/14/21 Maegan Bermeo MD [address] [place] [address] PCP - General Family Medicine 09/15/21 Audra Wahl LPN [employer] [place] [address] TCM Nurse 09/27/21 10/27/21 Jessa Park LPN [employer] [place] [address] Registered Nurse 05/26/22 05/26/22 documented as of this encounter
--- OUTSIDE RECORDS SUMMARY | 2024-09-04 05:45 | XMS_ITS | Encounter Summary ---
Author Organization [facility] Address [address] [place] [address] Care Team Providers Care Cook Cashier Food Prep Name Role Phone Jan Castelan MD Primary Care Provider [phone] Benjie Quezada MD Primary Care Provider Tamika Loomis APRN Primary Care Provider [phone] Maegan Bermeo MD Primary Care Provider [phone] Audra Wahl AUTO FLEET MANAGER Unavailable Unavailab Jessa Jimenez AUTO FLEET MANAGER Unavailable Unavailable Reason for Visit * Reason Comments Med Refill Encounter Details Date Type Department Care Team (Late st Contact Info) Description 12/28/2020 Refill Family and Community Medicine [address] [place] [address] Jan Castelan MD [address] [place] [address] Social History Tobacco Use Types [...] Description 09/15/2024 10:40 AM EDT Office Visit [facility] [address] 5th Floor [address] [place] [address] Raimundo Hatch, DPDestiny [address] [place] [address] documented as of this encounter Visit Diagnoses Not on filedocumented in this encounter Additional Health Concerns Infection Onset Date Last Indicated Resolved Time COVID 19 (Confirmed) Comment:Patient is >10 days from COVID test date on 10/26/2021 and patient no longer needs COVID isolation as patient is asymptomatic, not immunocompromised. Team aware. EVS notified. [facility] has verified patient has a COVID-19 positive result. A chart review has been completed, EPI PUI has been completed and sent to appropriate Health Dept. [facility] Packaging Designer: Nimco Simms 10/26/2021 10/26/2021 022 10:27 AM EDT COVID 19 (Confirmed) 11/11/2021 11/11/2021 022 5:23 AM EDT COVID-19 Rule-Out 05/16/2022 05/16/2022 05/16/2022 11:05 PM EDT documented as of this encounter Care Teams Cook Cashier Food Prep Relationship Specialty Start Date End Date Jan Castelan MD [address] [place] [address] PCP - General 07/02/20 08/07/21 Benjie Quezada MD [address] [place] [address] PCP - General Family Medicine 08/08/21 08/30/21 Tamika Loomis APRN [address] [place] [address] PCP - General Family Medicine 08/31/21 09/14/21 Maegan Bermeo MD [address] [place] [address] PCP - General Family Medicine 09/15/21 Audra Wahl LPN [employer] [place] [address] TCM Nurse 09/27/21 10/27/21 Jessa Park LPN [employer] [place] [address] Registered Nurse 05/26/22 05/26/22 documented as of this encounter
--- OUTSIDE RECORDS SUMMARY | 2024-09-04 05:45 | XMS_ITS | Encounter Summary ---
Author Organization Healthcare Address [address] [place] [address] Care Team Providers Care Chinese Teacher Name Role Phone Tyler Castelan MD Primary Care Provider [phone] Benjie Quezada MD Primary Care Provider Tamika Loomis APRN Primary Care Provider [phone] Maegan Bermeo MD Primary Care Provider [phone] Audra Wahl CARPENTRY TEACHER Unavailable Unavailab Jessa Jimenez CARPENTRY TEACHER Unavailable Unavailable Encounter Details Date Type Department Care Team (Late st Contact Info) Description 06/28/2021 Outside Procedure External Location [address] [place] [address] Tyler Castelan MD [address] [place] [address] Social History Tobacco Use Types [...] Description 09/15/2024 10:40 AM EDT Office Visit [facility] [address] 5th Floor [address] [place] [address] Raimundo Hatch E, DPM [address] [place] [address] documented as of this encounter Procedures Procedure Name Priority Date/Time Associated Diagnosis Comments VAS US VENOUS DUPLEX LOWER EXTREMITY UNILATERAL 06/28/2021 2:51 PM EDT documented in this encounter Results * VAS US Venous Duplex Lower Extremity Unilateral (06/28/2021 2:51 PM EDT) Anatomical Region Laterality Modality Lower Extremities Ultrasound 06/28/2021 2:51 PM EDT Narrative 06/28/2021 4:35 [place] [address] Name: RICA FLANNERY Exam Date: 06/28/2021 : 1955 Age 65 Gender: F Physician: TYLER CASTELAN Facility: [facility] Facility HSV: Outpatient Exam: VENOUS DUPLEX US [...] Thank you for referring RICA FLANNERY to [facility]. Legally authenticated by KWAME HARGROVE 2021-06-28 16:23:11 Procedure Note Provider, Generic [place] - 06/28/2021 [place] [address] Name: RICA FLANNERY Exam Date: 06/28/2021 : 1955 Age 65 Gender: F Physician: TYLER CASTELAN Facility: [facility] Facility HSV: Outpatient Exam: VENOUS DUPLEX US [...] Thank you for referring RICA FLANNERY to [facility]. Legally authenticated by KWAME HARGROVE 2021-06-28 [...] and sent to appropriate Health Dept. IPA Pegger Dobby Looms: Nimco Simms 10/26/2021 10/26/2021 10:27 AM EDT COVID 19 (Confirmed) 11/11/2021 11/11/2021 022 5:23 AM EDT COVID-19 Rule-Out 05/16/2022 05/16/2022 05/16/2022 11:05 PM EDT Assessment Noted Time A fall risk assessment has been complete d for the patient 06/28/2021 10:46 AM EDT documented as of this encounter Care Teams Chinese Teacher Relationship Specialty Start Date End Date Tyler Castelan MD [address] [place] [address] PCP - General 07/02/20 08/07/21 Benjie Quezada MD [address] [facility] [address] [place] [address] PCP - General Family Medicine 08/08/21 08/30/21 Tamika Loomis APRN [address] [facility] [address] [place] [address] PCP - General Family Medicine 08/31/21 09/14/21 Maegan Bermeo MD [address] [place] [address] PCP - General Family Medicine 09/15/21 Audra Wahl LPN VALUE[employer]ED [place] [address] TCM Nurse 09/27/21 10/27/21 Jessa Park LPN VALUE[employer]ED [place] [address] Registered Nurse 05/26/22 05/26/22 documented as of this encounter
--- OUTSIDE RECORDS SUMMARY | 2024-09-04 05:45 | XMS_ITS | Encounter Summary ---
Author Organization Healthcare Address [address] [place] [address] Care Team Providers Care Capacitor Tester Name Role Phone Maegan Bermeo MD Primary Care Provider [phone] Encounter Details Date Type Department Care Team (Late st Contact Info) Description 07/10/2024 Orders Only External Location [address] [place] [phone] Provider, External Social History Tobacco Use Types [...] drink first t ken in the morning (EYE-HEALTH PROGRAM DIRECTOR) to steady your nerves or to [...] [place] [facility] [address] 5th [address] [place] [address] Raimundo Hatch, DESTINY [address] [place] [address] documented as of this [...] documented as of this encounter Care Teams Capacitor Tester Relationship Specialty Start Date End Date Maegan Bermeo MD [address] [place] [address] PCP - General Family Medicine 09/15/21 documented as of this encounter
--- OUTSIDE RECORDS SUMMARY | 2024-09-04 05:45 | XMS_ITS | Encounter Summary ---
Author Organization [facility] Address [address] [place] [address] Care Team Providers Care Assembler Dry Cell And Battery Name Role Phone Jan Castelan MD Primary Care Provider [phone] Benjie Quezada MD Primary Care Provider Tamika Loomis APRN Primary Care Provider [phone] Maegan Bermeo MD Primary Care Provider [phone] Audra Wahl DIAGNOSTIC ASSISTANT Unavailable Unavailab Jessa Jimenez DIAGNOSTIC ASSISTANT Unavailable Unavailable Reason for Visit * Reason Comments Med Refill Encounter Details Date Type Department Care Team (Late st Contact Info) Description 02/22/2021 Refill Family and Community Medicine [address] [place] [address] Jan Castelan MD [address] [place] [address] Uncontrolled type 2 diabetes mellitus with hyperglycemia ([facility]) Social History Tobacco Use Types Packs/Day Years [...] Description 09/15/2024 10:40 AM EDT Office Visit [facility] [address] [facility] 5th Floor [address] [place] [address] Raimundo Hatch DPDestiny [address] [facility] [address] [place] [address] documented as of this encounter [...] and sent to appropriate Health Dept. IPAC Button Sewing Machine Operator: Nimco Simms 10/26/2021 10/26/2021 022 10:27 AM EDT COVID 19 (Confirmed) 11/11/2021 11/11/2021 022 5:23 AM EDT COVID-19 Rule-Out 05/16/2022 05/16/2022 05/16/2022 11:05 PM EDT documented as of this encounter Care Teams Assembler Dry Cell And Battery Relationship Specialty Start Date End Date Jan Castelan MD [facility] [place] [address] PCP - General 07/02/20 08/07/21 Benjie Quezada MD [address] [facility] [address] [place] [address] PCP - General Family Medicine 08/08/21 08/30/21 Tamika Loomis APRN [address] [facility] [address] [place] [address] PCP - General Family Medicine 08/31/21 09/14/21 Maegan Bermeo MD [address] [place] [address] PCP - General Family Medicine 09/15/21 Audra Wahl LPN VAL[employer] [place] [address] TCM Nurse 09/27/21 10/27/21 Jessa Park LPN VALUE[employer] [place] [address] Registered Nurse 05/26/22 05/26/22 documented as of this encounter
--- OUTSIDE RECORDS SUMMARY | 2024-09-04 05:45 | XMS_ITS | Encounter Summary ---
Author Organization Healthcare Address [address] [place] [address] Care Team Providers Care Designer And Patternmaker Name Role Phone Maegan Bermeo MD Primary Care Provider [phone] Encounter Details Date Type Department Care Team (Late st Contact Info) Description 07/03/2024 Orders Only External Location [address] [place] [phone] Provider, External Social History Tobacco Use Types [...] drink first t ken in the morning (EYE-COLLET MAKER) to steady your nerves or to [...] Description 09/15/2024 10:40 AM EDT Office Visit [facility] [address] 5[address] [place] [address] Raimundo Hatch, DESTINY [address] [place] [address] documented as of this encounter [...] documented as of this encounter Care Teams Designer And Patternmaker Relationship Specialty Start Date End Date Maegan Bermeo MD [address] [place] [address] PCP - General Family Medicine 09/15/21 documented as of this encounter
--- OUTSIDE RECORDS SUMMARY | 2024-09-04 05:45 | XMS_ITS | Encounter Summary ---
Author Organization [facility] Address [address] [place] [address] Care Team Providers Care Manager Heavy Duty Name Role Phone Maegan Bermeo MD Primary Care Provider [phone] Encounter Details Date Type Department Care Team (Late st Contact Info) Description 07/30/2024 Telephone [facility] [address] [facility] 5th Floor [address] [place] [address] Raimundo Hatch, DPM [address] [facility] [address] [place] [address] Social History Tobacco Use Types [...] drink first t ken in the morning (EYE-HAT LINER) to steady your nerves or to get [...] Description 09/15/2024 10:40 AM EDT [facility] [address] 5th [address] [place] [address] Raimundo Hatch, DPM [address] [facility] [address] [place] [address] documented as of this encounter Visit Diagnoses Not on filedocumented in this encounter Additional Health Concerns Assessment Noted Time A fall risk assessment has been complete d for the patient 06/07/2022 11:09 AM EDT A Body Mass Index follow-up plan has been documented for the patient 06/07/2022 11:30 AM EDT documented as of this encounter Care Teams Manager Heavy Duty Relationship Specialty Start Date End Date Maegan Bermeo MD [address] [place] [address] PCP - General Family Medicine 09/15/21 documented as of this encounter
--- OUTSIDE RECORDS SUMMARY | 2024-09-04 05:45 | XMS_ITS | Encounter Summary ---
Author Organization [facility] Address [address] [place] [address] Care Team Providers Care Public Works Inspector Name Role Phone Maegan Bermeo MD Primary Care Provider [phone] Encounter Details Date Type Department Care Team [...] drink first t ken in the morning (EYE-BOX CLOSING MACHINE OPERATOR) to steady your nerves or to [...] Description 09/15/2024 10:40 AM EDT Office Visit [facility] [address] [facility] 5th Floor [address] [place] [address] Raimundo Hatch, DESTINY [address] [facility] [address] [place] [address] documented as of this encounter Visit Diagnoses Not on filedocumented in this encounter Additional Health Concerns Assessment Noted Time A fall risk assessment has been complete d for the patient 08/18/2024 8:33 AM EDT A Body Mass Index follow-up plan has been documented for the patient 08/18/2024 9:31 AM EDT documented as of this encounter Care Teams Public Works Inspector Relationship Specialty Start Date End Date Maegan Bermeo MD [address] [place] [address] PCP - General Family Medicine 09/15/21 documented as of this encounter
--- OUTSIDE RECORDS SUMMARY | 2024-09-04 05:45 | XMS_ITS | Encounter Summary ---
Author Organization Healthcare Address [address] [place] [address] Care Team Providers Care Multiple Tube Winding Machine Operator Name Role Phone Maegan Bermeo MD Primary Care Provider [phone] Encounter Details Date Type Department Care Team (Late st Contact Info) Description 03/11/2024 Orders Only External Location [address] [place] [phone] Provider, External Social History Tobacco Use Types [...] drink first t ken in the morning (EYE-ALUM PLANT OPERATOR) to steady your nerves or to [...] [place] [facility] [address] 5th [address] [place] [address] Raimundo Hatch DPM [address] [place] [address] documented as of this encounter [...] documented as of this encounter Care Teams Multiple Tube Winding Machine Operator Relationship Specialty Start Date End Date Maegan Bermeo MD [address] [place] [address] PCP - General Family Medicine 09/15/21 documented as of this encounter
--- OUTSIDE RECORDS SUMMARY | 2024-09-04 05:45 | XMS_ITS | Clinical Summary ---
Author Organization [facility] Address [address] [place] [address] Care Team Providers Care Cattle Producers Name Role Phone Maegan Bermeo MD Primary Care Provider [phone] Allergies Active Allergy Reactions Criticality Noted Date [...] is elevated above patient's baseline of around [id number] -most recent echo obtained in October 2021 [...] but pain at time of arrival to [facility] PLAN: -pain control initially with p.r.n. [...] Description 08/18/2024 9:20 AM EDT Office Visit [facility] [address] [place] [address] Raimundo Hatch DPM Hammer toe, acquired (Primary Dx) 08/18/2024 Travel 08/11/2024 8:20 AM EDT Office Visit [facility] [place] [id number] [place] [address] Raimundo Hatch DPM Ulcer of toe of left foot, with fat layer exposed (CMS/HCC) (Primary Dx); Diabetic neuropathy with neurologic complication (CMS/HCC); Hammer toe, acquired 08/11/2024 Travel 07/30/2024 Telephone [facility] [place] [id number] [place] [address] Raimundo Hatch DPM 07/10/2024 Orders Only External Location [address] [place] [address] Provider, External 07/08/2024 Orders Only External Location [address] [place] [address] Provider, External 07/03/2024 Orders Only External Location [address] [place] [address] Provider, External from Last 3 Months Immunizations [...] drink first t ken in the morning (EYE-CREMATORY ATTENDANT) to steady your nerves or to get [...] [facility] [address] [place] [address] Raimundo Hatch, DPDestiny [address] [facility] [address] [place] [address] Health Maintenance Due Date Last Done Comments [facility]-Bone Density Scan 1955 [facility]-Medicare Annual Wellness (AWV) 1955 [facility]-/Child/Adol SDOH Screenings 1955 Diabetes: Dental Exam 08/20/1965 [...] Additional history exists [facility]-Depression Screening 06/08/2023 06/07/2022 [id number] Vaccine ( season) 2023 01/05/2022, 01/07/2021, 06/11/2020, [...] Procedure Name Priority Date/Time Associated Diagnosis Comments [place] DEBRIDEMENT, SKIN, SUB-Q TISSUE,=<20 SQ CM Routine [...] Recently Relevant to Health Maintenance Results * [place] DEBRIDEMENT, SKIN, SUB-Q TISSUE,=<20 SQ CM (08/11/2024 [...] provider verified the correct patient, procedure, equipment, manager sales support, and site/side marked as required. Debridement Details [...] Adults <6.0% Children and Adolescents <7.5% Source: [place] [employer]. Standards of medical care in diabetes,2017. Diabetes Care.2017:40 (suppl 1):S1-S135. HbA1c assay performed by an ion-exchange chromatography method that is certified traceable to the DCCT. us Maegan Bermeo MD LAB BLOOD ORDERABLES Final Re sult Performing Organization Address City/[facility] Co de Phone Number HEALTHCARE LAB [address] [place] [address] * Hepatitis C Antibody - ED (09/24/2021 7:52 AM EDT) Hepatitis C Antibody Negative Negative 09/24/2021 9:51 AM EDT [facility] Blood Venous blood specimen / Unknown Venipuncture / Unknown 09/24/2021 7:52 AM EDT 09/24/2021 8:10 AM EDT Farida Sharif MD LAB BLOOD ORDERABLES Final Res ult Performing Organization Address [facility] Co de Phone Number HEALTHCARE LAB [address] [place] [address] * MAMMOGRAPHY EXTERNAL RESULTS (01/20/2019) Anatomical Region Laterality Modality Mammography Narrative 01/20/2019 Ordered by an unspecified provider. us External Provider IMG BI PROCEDURES Final Result * (ABNORMAL) Cologuard (02/16/2018 8:42 AM EST) Cologuard Positive(Y) [employer] 02/16/2018 8:42 AM EST Historical Provider LAB MOLECULAR DIAGNOSTICS ORDERABLES Final Result Performing Organization Address City/[facility] Co de Phone Number [employer] from Last 3 Months or Most Recently Relevant to Health Maintenance [place] [address] ANTHEM Advance Directives * DNR/DNI (Latest Code [...] Patient has decision-making capacity? Yes Care Teams Cattle Producers Relationship Specialty Start Date End Date Maegan Bermeo MD [address] [place] [address] PCP - General Family Medicine 09/15/21
--- OUTSIDE RECORDS SUMMARY | 2024-09-04 05:45 | XMS_ITS | Encounter Summary ---
Author Organization [facility] Address [address] [place] [address] Care Team Providers Care Process Manufacturing Engineer Name Role Phone Maegan Bermeo MD Primary Care Provider [phone] Encounter Details Date Type Department Care Team (Late st Contact Info) Description 07/08/2024 Orders Only External Location [address] [place] [id number] Provider, External Social History Tobacco Use Types [...] drink first t ken in the morning (EYE-THREAD GRINDER TOOL) to steady your nerves or to get [...] [facility] [address] [place] [address] Raimundo Hatch DPM [address] [place] [address] documented as of this encounter [...] documented as of this encounter Care Teams Process Manufacturing Engineer Relationship Specialty Start Date End Date Maegan Bermeo MD [address] [place] [address] PCP - General Family Medicine 09/15/21 documented as of this encounter
--- OUTSIDE RECORDS SUMMARY | 2024-09-04 05:45 | XMS_ITS | Encounter Summary ---
Author Organization [facility] Address [address] [place] [address] Care Team Providers Care Reference Assistant Name Role Phone Maegan Bermeo MD Primary Care Provider [phone] Encounter Details Date Type Department Care Team [...] drink first t ken in the morning (EYE-GARMENT PRESSER) to steady your nerves or to get [...] Description 09/15/2024 10:40 AM EDT Office Visit [facility] [address] [facility] [address] [place] [address] Raimundo Hatch DPM [address] [facility] [address] [place] [address] documented as of this encounter Visit Diagnoses Not on filedocumented in this encounter Additional Health Concerns Assessment Noted Time A fall risk assessment has been complete d for the patient 06/07/2022 11:09 AM EDT A Body Mass Index follow-up plan has been documented for the patient 08/11/2024 8:45 AM EDT documented as of this encounter Care Teams Reference Assistant Relationship Specialty Start Date End Date Maegan Bermeo MD [address] [place] [address] PCP - General Family Medicine 09/15/21 documented as of this encounter
--- NOTE | 2024-09-04 05:51 | CT_ITS ---
FINAL REPORT TECHNIQUE: Thin section axial CT with contrast with multiplanar reconstruction This study was performed with techniques to keep radiation doses as low as reasonably achievable, (ALARA). Individualized dose reduction techniques using automated exposure control or adjustment of mA and/or kV according to the patient''s size were employed. CLINICAL HISTORY: Shortness of breath, episodic confusion, Hx CHF COMPARISON: 03/09/2024 FINDINGS: Pulmonary vessels enhance in normal fashion without evidence of embolism. Thoracic aorta shows no dissection or aneurysm. The pulmonary vessels are enlarged centrally, which may be secondary to pulmonary vascular hypertension. No pulmonary mass or infiltrate is present. There is no significant pleural effusion. There is no significant pericardial effusion. No mediastinal or hilar adenopathy is present. IMPRESSION: 1. No evidence of pulmonary embolism 2. No acute lung disease. Reviewed, Interpreted and Dictated by Dandy Ascencio MD Transcribed by Zoya Reyes Authenticated and . [facility]
--- NOTE | 2024-09-04 05:51 | CT_ITS ---
FINAL REPORT TECHNIQUE: Noncontrast exam This study was performed with techniques to keep radiation doses as low as reasonably achievable, (ALARA). Individualized dose reduction techniques using automated exposure control or adjustment of mA and/or kV according to the patient's size were employed. CLINICAL HISTORY: Episodic confusion worsening for 2 to 3 weeks COMPARISON: 12/17/2022 FINDINGS: CT HEAD: No abnormal density is seen. Mild global atrophy is noted along with chronic microvascular changes. There is no hemorrhage. No mass effect is seen. Bone windows show no evidence of fracture. IMPRESSION: 1. No acute findings 2. Mild atrophy and chronic microvascular changes. Reviewed, Interpreted and Dictated by Dandy Ascencio MD Transcribed by Zoya Reyes Authenticated and [facility]
--- NOTE | 2024-09-04 05:53 | ECG_ITS ---
APPROVED REPORT Exam: Resting ECG HR:67 bpm ECG Measurements Heart Rate 67 AXES QRSd 105 QRS 56 QT 437 T 66 QTc 452 Conclusion ATRIAL FIBRILLATION LOW QRS VOLTAGE IN PRECORDIAL LEADS [QRS DEFLECTION < 1.0 mV IN CHEST LEADS] INCOMPLETE RIGHT BUNDLE BRANCH BLOCK [90+ ms QRS DURATION, TERMINAL R IN V1/V2, 40+ ms S IN I/aVL/V4/V5/V6] MODERATE ST DEPRESSION [0.05+ mV ST DEPRESSION] Subtle ST depressions in lead V2 and V3 are similar to prior, no STEMI Electronically signed by : KADI NAJERA, 09/05/2024 01:42:37
[2024-09-04 06:06] LABS: VBG HCO3 26.8 mmol/L (23-30); VBG PH 7.26 mmol/L (7.31-7.41); VBG PO2 33.3 mmol/L (28-40)
[2024-09-04 06:09] LABS: Hematocrit 36.7 % (37.0-47.0); Hemoglobin 10.8 g/dL (12.2-16.2); Immature Granulocytes % 0.3 %; Mean Corpuscular HGB Conc 29.4 g/dL (31.8-35.4); Mean Corpuscular Hemoglobin 21.7 pg (27.0-31.2); Mean Corpuscular Volume 73.7 fl (81-99); Nucleated Red Blood Cells % 0.8 %; Platelet Count 565 K/mm3 (142-424); Red Blood Count 4.98 M/mm3 (4.20-5.40); Red Cell Distribution Width-SD 54.6 fL; White Blood Count 15.2 K/mm3 (4.8-10.8)
--- NOTE | 2024-09-04 06:09 | ED_ITS ---
Discharge Plan Disposition Patient Disposition: Home, Self-Care Condition: Good Prescriptions Prescriptions: New cefadroxil 500 mg capsule 500 mg PO BID 7 Days Qty: 14 0RF No Action promethazine-DM 6.25-15 mg/5 mL syrup 5 ml PO Q4-6H PRN (Reason: cough) Qty: 118 0RF acetaminophen [Tylenol Extra Strength] 500 mg tablet 1,000 mg PO Q6H PRN nystatin 100,000 unit/gram powder 1 applic topical BID Qty: 15 2RF zolpidem [Ambien] 5 mg tablet 5 mg PO HS PRN (Reason: sleep) Qty: 30 0RF atorvastatin 40 mg tablet 40 mg PO HS Qty: 90 1RF pantoprazole 40 mg tablet,delayed release (DR/EC) 40 mg PO HS Qty: 90 1RF mupirocin 2 % ointment 1 applic topical BID 14 Days Qty: 22 1RF tirzepatide 5 mg/0.5 mL pen injector 5 mg SQ WEEKLY Qty: 2.5 2RF aspirin 81 mg tablet,delayed release (DR/EC) See Rx Instructions .ROUTE .COMPLEX Qty: 30 0RF Dose Instruction: TAKE 1 TABLET BY MOUTH ONCE DAILY Rx Instructions: TAKE 1 TABLET BY MOUTH ONCE DAILY dapagliflozin propanediol [Farxiga] 10 mg tablet See Rx Instructions .ROUTE .COMPLEX Qty: 30 0RF Dose Instruction: TAKE 1 TABLET BY MOUTH ONCE DAILY Rx Instructions: TAKE 1 TABLET BY MOUTH ONCE DAILY spironolactone 25 mg tablet See Rx Instructions .ROUTE .COMPLEX Qty: 30 0RF Dose Instruction: TAKE 1 TABLET BY MOUTH DAILY Rx Instructions: TAKE 1 TABLET BY MOUTH DAILY metoprolol succinate 25 mg tablet extended release 24 hr See Rx Instructions .ROUTE .COMPLEX Qty: 30 0RF Dose Instruction: TAKE 1 TABLET BY MOUTH DAILY Rx Instructions: TAKE 1 TABLET BY MOUTH DAILY duloxetine 60 mg capsule,delayed release(DR/EC) See Rx Instructions .ROUTE .COMPLEX Qty: 30 0RF Dose Instruction: TAKE 1 TABLET BY MOUTH ORALLY DAILY Rx Instructions: TAKE 1 TABLET BY MOUTH ORALLY DAILY famotidine 20 mg tablet See Rx Instructions .ROUTE .COMPLEX Qty: 30 0RF Dose Instruction: TAKE 1 TABLET BY MOUTH ONCE DAILY Rx Instructions: TAKE 1 TABLET BY MOUTH ONCE DAILY melatonin 5 mg tablet See Rx Instructions .ROUTE .COMPLEX Qty: 30 0RF Dose Instruction: TAKE 1 TABLET BY MOUTH EVERY NIGHT AT BEDTIME Rx Instructions: TAKE 1 TABLET BY MOUTH EVERY NIGHT AT BEDTIME sennosides-docusate sodium [Senexon-S] 8.6-50 mg tablet See Rx Instructions .ROUTE .COMPLEX Qty: 30 0RF Dose Instruction: TAKE 1 TABLET BY MOUTH EVERY NIGHT AT BEDTIME Rx Instructions: TAKE 1 TABLET BY MOUTH EVERY NIGHT AT BEDTIME nortriptyline 25 mg capsule See Rx Instructions .ROUTE .COMPLEX Qty: 30 0RF Dose Instruction: TAKE 1 CAPSULE BY MOUTH EVERY NIGHT AT BEDTIME Rx Instructions: TAKE 1 CAPSULE BY MOUTH EVERY NIGHT AT BEDTIME bumetanide 1 mg tablet See Rx Instructions .ROUTE .COMPLEX Qty: 30 0RF Dose Instruction: TAKE 1 TABLET BY MOUTH ONCE DAILY Rx Instructions: TAKE 1 TABLET BY MOUTH ONCE DAILY Entresto 24-26 mg tablet See Rx Instructions .ROUTE .COMPLEX Qty: 60 0RF Dose Instruction: TAKE 1 TABLET BY MOUTH TWICE DAILY Rx Instructions: TAKE 1 TABLET BY MOUTH TWICE DAILY Eliquis 5 mg tablet See Rx Instructions .ROUTE .COMPLEX Qty: 60 0RF Dose Instruction: TAKE 1 TABLET BY MOUTH TWICE DAILY Rx Instructions: TAKE 1 TABLET BY MOUTH TWICE DAILY Referrals Follow up/Referrals: Luiz Sage, [Primary Care Provider, Family Practice] - See instructions Activity Restrictions/Add. Instructions Additional Instructions/Restrictions: Encourage you to follow-up with your desktop support technician this afternoon. You are being prescribed Duricef, an antibiotic to treat your urinary tract infection. Take this as prescribed. If you develop any new or worsening symptoms, or if you become concerned for your health for any reason, return to the emergency department for evaluation. Clinical Impressions Clinical Impression: Mitral regurgitation, Generalized weakness, Urinary tract infection Atrial fibrillation Qualifiers: Atrial fibrillation type: longstanding persistent Qualified Code(s): I48.11 - Longstanding persistent atrial fibrillation Obesity Qualifiers: Obesity type: due to excess calories Obesity classification: adult class 1 (BMI 30 - 34.9) Serious obesity comorbidity presence: with serious comorbidity Body mass index: BMI 31.0-31.9 Qualified Code(s): E66.09 - Other obesity due to excess calories CHF (congestive heart failure) Qualifiers: Heart failure type: diastolic Heart failure chronicity: acute on chronic Q ualified Code(s): I50.33 - Acute on chronic diastolic (congestive) heart failure Instructions Patient Instructions: DI for Altered Mental Status Print Language Print Language: Indonesian Discharge ED Provider: [facility] HPI <Shaun Campos MD - Last Filed: 09/04/24 07:00> General Chief complaint: Altered Mental Status Stated complaint: confusion, fall, congestive heart failure Time Seen by Provider: 09/04/24 05:40 Mode of Arrival: Wheelchair Source of Information: Patient and Relative Description of Symptoms (Recalled from ER Triage Doc. by RN): Per daughter patient slid off the bed today and has been more confused and short of breath lately. It has been an ongoing issue History of Present Illness HPI narrative: 69-year-old female with a history of diabetes, cor pulmonale, pulmonary hypertension, atrial fibrillation, CHF, hyperlipidemia presents to the ER with her adult daughter who is concerned that patient has been more generally weak, seemed more short of breath, and has had transient episodes of confusion 3-4 times a day for the last 3 weeks or so. She also reports that the patient has been having difficulty sleeping, patient also reports this. Patient reports difficulty sleeping at night secondary to neuropathy despite being on a new sleeping pill. Daughter states the patient has her days and nights flipped and she often is more confused in the evening. 1 episode of confusion recently was that the patient thought her in the last day or 2 when her actually a year ago. Patient is well aware that her has been for a year, she is fully oriented on arrival and states she has been a little bit forgetful but denies any episodes of actual confusion, contradictory to what her daughter is reporting. Patient reports this evening she was trying to get a massage machine off the floor to use it on her lower extremities, but it was heavier than she expected so she ended up sliding off the bed onto her knees. She denies falling all the way to the floor, striking her head, or losing consciousness. She does take blood thinners. Reportedly patient's daughter found her laying on the floor, patient states I was just watching TV . She has no complaints of pain, she states her shortness of breath seems basically at baseline to her but daughter reports otherwise. Patient and daughter report chronic, unchanged cough, no abdominal pain though daughter thinks the abdomen is more swollen than normal, no vomiting or diarrhea, no painful urination or blood in the urine, no fevers or chills, no recent illness. Patient has chronic swelling in the feet and legs but is reportedly taking all her medications as prescribed including Bumex. She has follow-up scheduled with cardiology today at 2 PM. Related Data Home Medications ?Medication ?Instructions ?Recorded ?Confirmed acetaminophen 500 mg tablet 1,000 mg PO Q6H PRN 08/26/24 (Tylenol Extra Strength) Previous Rx's ?Medication ?Instructions ?Recorded nystatin 100,000 unit/gram topical 1 applic topical BI D #15 grams 05/09/24 powder atorvastatin 40 mg tablet 40 mg PO HS #90 tabs 5 pantoprazole 40 mg tablet,delayed 40 mg PO HS #90 tabs 06/09/24 release mupirocin 2 % topical ointment 1 applic topical BID in fection 14 07/02/24 days #22 grams tirzepatide 5 mg/0.5 mL 5 mg (0.5 mL) SQ WEEKLY #2.5 mL 07/22/24 subcutaneous pen injector aspirin 81 mg tablet,delayed See Rx Instructions .Rout e 07/23/24 release .COMPLEX #30 tabs promethazine-DM 6.25 mg-15 mg/5 mL 5 ml PO Q4-6H PRN c ough #118 mL 08/11/24 oral syrup apixaban 5 mg tablet (Eliquis) See Rx Instructions .Ro chapis 08/21/24 .COMPLEX #60 tabs bumetanide 1 mg tablet See Rx Instructions .Route 0 08/21/24 .COMPLEX #30 tabs dapagliflozin propanediol 10 mg See Rx Instructions .R oute 08/21/24 tablet (Farxiga) .COMPLEX #30 tabs duloxetine 60 mg capsule,delayed See Rx Instructions . Route 08/21/24 release .COMPLEX #30 caps famotidine 20 mg tablet See Rx Instructions .Route 0 08/21/24 .COMPLEX #30 tabs melatonin 5 mg tablet See Rx Instructions .Route 0 08/21/24 .COMPLEX #30 tabs metoprolol succinate 25 mg See Rx Instructions .Route 08/21/24 tablet,extended release 24 hr .COMPLEX #30 tabs nortriptyline 25 mg capsule See Rx Instructions .Route 08/21/24 .COMPLEX #30 caps sacubitril 24 mg-valsartan 26 mg See Rx Instructions . Route 08/21/24 tablet (Entresto) .COMPLEX #60 tabs sennosides 8.6 mg-docusate sodium See Rx Instructions .Route 08/21/24 50 mg tablet (Senexon-S) .COMPLEX #30 tabs spironolactone 25 mg tablet See Rx Instructions .Route 08/21/24 .COMPLEX #30 tabs zolpidem 5 mg tablet (Ambien) 5 mg PO HS PRN sleep #30 tabs 08/26/24 cefadroxil 500 mg capsule 500 mg PO BID 7 days #14 cap s 09/04/24 Allergies Allergy/AdvReac Type Severity Reaction Status Date / Time levofloxacin Allergy Verified 08/26/24 14:49 meperidine Allergy Verified 08/26/24 14:49 PFSH <Shaun Campos MD - Last Filed: 09/04/24 07:00> PFS Disclaimer: The information contained in this section may have been updated after the patient was seen, as this information can be updated by other users. Medical History Peripheral arterial disease Primary pulmonary hypertension Type 2 diabetes mellitus with foot ulcer UTI (urinary tract infection) Renal insufficiency Hyperkalemia Hypotension Hypertension CAD in [place] artery BMI 39.0-39.9,adult Chronic anemia Chronic anticoagulation Coronary artery disease Diabetes HFrEF (heart failure with reduced ejection fraction) Pulmonary hypertension Depression Constipation GERD (gastroesophageal reflux disease) Oxygen dependent Atrial fibrillation Surgical History Status post left heart catheterization Family History Other Alcohol abuse Family history of cancer Heart attack Social History Smoking Status: Never smoker alcohol intake: never current occupational status: unemployed Travel in the last 8 weeks?: None Other Medical History Have you received the Flu Vaccine for this season: No Have you received the Pneumonia Vaccine: Yes <Shaun Campos MD - Last Filed: 09/04/24 07:00> ROS Obtained: Yes Systems reviewed as appropriate & no additional complaints except as documented Per HPI Physical Exam <Shaun Campos MD - Last Filed: 09/04/24 07:00> General General appearance: alert, in no apparent distress and obese Comment: Chronically ill-appearing but nontoxic, not in distress Head Head exam: atraumatic and normocephalic Eye Eye exam: Present PERRL and EOMI ENT ENT exam: Present mucous membranes moist Neck Neck exam: Present normal inspection and full ROM; Absent tenderness Chest Chest inspection: Present symmetric chest wall rise Respiratory Respiratory exam: Present other (95% on room air on arrival); Absent normal lung sounds bilaterally (Breath sounds diminished throughout, faint rales at the bases), respiratory distress, wheezes or stridor Cardiovascular Cardiovascular exam: Present regular rate and normal rhythm Abdominal Exam Abdominal exam: Present soft and distention (Mildly but soft); Absent tenderness, guarding, rebound or rigidity Comment: No fluid wave Extremities Exam Extremities exam: Present full ROM, edema (+1 bilateral lower extremities pitting edema) and other (Extensive varicose veins bilaterally, patient also has a healing ulcer on the tip of the left third toe that demonstrates no findings of infection) Neurological Exam Neurological exam: Present alert, oriented X3, CN II-XII intact and other (NIH 0); Absent motor sensory deficit Psychiatric Psychiatric exam: Present normal affect and normal mood Skin Skin exam: Present warm and dry Medical Decision Making <Shaun Campos MD - Last Filed: 09/04/24 07:00> Medical Records Medical records reviewed: Yes I reviewed the patient's medical records. Screening: Per USPSTF and CDC recommendations, given the prevalence of disease in our region, it is our hospital?s policy to screen for HIV and viral Hepatitis for all patients aged 18 and over and those with ongoing risk factors. MR Comment: Most recent cardiology note from 08/12/2024 demonstrates patient has diffuse atherosclerotic disease including in the lower extremities, CT abdomen/femoral showed cirrhotic liver changes, cardiology believes her CAD is likely stable, BP at that time was on the lower side 104/61, she had severe tricuspid regurg with pulmonary hypertension and reduced RV function on Farxiga, Bumex, spironolactone, Entresto, metoprolol. Recommended new echo, GI follow-up for liver cirrhosis, referral to [facility] for consideration of Tri clip for TR causing liver failure Most recent echo 08/25/2024 demonstrates LVEF 55%, dilated RV, mitral valve is mildly thickened with mild MR, tricuspid valve normal in structure but severe tricuspid regurg Abdifatah Inquiry Pt receiving controlled substance: No Vital Signs: 09/04/24 05:45 09/04/24 05:55 09/04/24 06:13 Temperature 97.9 F Temperature Source Oral Pulse Rate 80 76 Pulse Rate [Orthostatic Lying Right Radial] Pulse Rate [Orthostatic Sitting Right Radial] Pulse Rate [Orthostatic Standing Right Radial] Pulse Rate [Right Radial] 71 Respiratory Rate 20 16 14 Blood Pressure 81/66 L 95/63 L Blood Pressure [Orthostatic Lying Right Arm] Blood Pressure [Orthostatic Sitting Right Arm] Blood Pressure [Orthostatic Standing Right Arm] Blood Pressure [Right Arm] 81/66 L Blood Pressure Mean Blood Pressure Mean [Right Arm] 71 Blood Pressure Source Blood Pressure Source [Right Arm] Automatic Cuff Blood Pressure Position Blood Pressure Position [Right Arm] Supine 02 Sat by Pulse Oximetry 96 95 95 Oxygen Delivery Method Nasal Cannula Room Air Room Air Oxygen Flow Rate (LPM) 2 09/04/24 06:14 09/04/24 06:15 09/04/24 06:17 Temperature Temperature Source Pulse Rate 68 Pulse Rate [Orthostatic Lying Right Radial] 65 Pulse Rate [Orthostatic Sitting Right Radial] 65 Pulse Rate [Orthostatic Standing Right Radial] 69 Pulse Rate [Right Radial] Respiratory Rate 16 Blood Pressure 105/50 L 109/66 L Blood Pressure [Orthostatic Lying Right Arm] 95/63 L Blood Pressure [Orthostatic Sitting Right Arm] 105/50 L Blood Pressure [Orthostatic Standing Right Arm] 109/66 L Blood Pressure [Right Arm] Blood Pressure Mean 76 Blood Pressure Mean [Right Arm] Blood Pressure Source Blood Pressure Source [Right Arm] Blood Pressure Position Blood Pressure Position [Right Arm] 02 Sat by Pulse Oximetry Oxygen Delivery Method Nasal Cannula Oxygen Flow Rate (LPM) 2 09/04/24 06:30 09/04/24 06:31 09/04/24 06:31 Temperature Temperature Source Pulse Rate 60 60 65 Pulse Rate [Orthostatic Lying Right Radial] Pulse Rate [Orthostatic Sitting Right Radial] Pulse Rate [Orthostatic Standing Right Radial] Pulse Rate [Right Radial] Respiratory Rate 17 Blood Pressure 110/51 L Blood Pressure [Orthostatic Lying Right Arm] Blood Pressure [Orthostatic Sitting Right Arm] Blood Pressure [Orthostatic Standing Right Arm] Blood Pressure [Right Arm] Blood Pressure Mean Blood Pressure Mean [Right Arm] Blood Pressure Source Blood Pressure Source [Right Arm] Blood Pressure Position Blood Pressure Position [Right Arm] 02 Sat by Pulse Oximetry 94 L Oxygen Delivery Method Aerosol Mask Oxygen Flow Rate (LPM) 09/04/24 06:43 09/04/24 07:05 09/04/24 07:15 Temperature Temperature Source Pulse Rate 70 76 68 Pulse Rate [Orthostatic Lying Right Radial] Pulse Rate [Orthostatic Sitting Right Radial] Pulse Rate [Orthostatic Standing Right Radial] Pulse Rate [Right Radial] Respiratory Rate 16 19 18 Blood Pressure 110/51 L Blood Pressure [Orthostatic Lying Right Arm] Blood Pressure [Orthostatic Sitting Right Arm] Blood Pressure [Orthostatic Standing Right Arm] Blood Pressure [Right Arm] Blood Pressure Mean Blood Pressure Mean [Right Arm] Blood Pressure Source Automatic Cuff Blood Pressure Source [Right Arm] Blood Pressure Position Supine Blood Pressure Position [Right Arm] 02 Sat by Pulse Oximetry 96 100 100 Oxygen Delivery Method Nasal Cannula Nasal Cannula Nasal Cannula Oxygen Flow Rate (LPM) 2 2 2 09/04/24 07:30 09/04/24 08:00 09/04/24 09:00 Temperature Temperature Source Pulse Rate 70 63 69 Pulse Rate [Orthostatic Lying Right Radial] Pulse Rate [Orthostatic Sitting Right Radial] Pulse Rate [Orthostatic Standing Right Radial] Pulse Rate [Right Radial] Respiratory Rate 16 16 16 Blood Pressure 116/63 121/63 114/60 Blood Pressure [Orthostatic Lying Right Arm] Blood Pressure [Orthostatic Sitting Right Arm] Blood Pressure [Orthostatic Standing Right Arm] Blood Pressure [Right Arm] Blood Pressure Mean 73 66 Blood Pressure Mean [Right Arm] Blood Pressure Source Blood Pressure Source [Right Arm] Blood Pressure Position Blood Pressure Position [Right Arm] 02 Sat by Pulse Oximetry 99 99 93 L Oxygen Delivery Method Room Air Oxygen Flow Rate (LPM) 09/04/24 09:30 09/04/24 09:45 09/04/24 10:05 Temperature 98.7 F Temperature Source Oral Pulse Rate 73 74 78 Pulse Rate [Orthostatic Lying Right Radial] Pulse Rate [Orthostatic Sitting Right Radial] Pulse Rate [Orthostatic Standing Right Radial] Pulse Rate [Right Radial] Respiratory Rate 16 15 19 Blood Pressure 104/65 L 104/65 L Blood Pressure [Orthostatic Lying Right Arm] Blood Pressure [Orthostatic Sitting Right Arm] Blood Pressure [Orthostatic Standing Right Arm] Blood Pressure [Right Arm] Blood Pressure Mean 78 Blood Pressure Mean [Right Arm] Blood Pressure Source Automatic Cuff Blood Pressure Source [Right Arm] Blood Pressure Position Sitting Blood Pressure Position [Right Arm] 02 Sat by Pulse Oximetry 95 95 Oxygen Delivery Method Room Air Room Air Room Air Oxygen Flow Rate (LPM) Lab Data Lab Results 09/04/24 05:56: WBC 15.2 H, RBC 4.98, Hgb 10.8 L, Hct 36.7 L, MCV 73.7 L, MCH 21.7 L, MCHC 29.4 L, RDW 21.6 H, Plt Count 565 H, MPV 10.2, Neut % (Auto) 75.8, Lymph % (Auto) 9.3 L, [place] % (Auto) 10.7 H, Eos % (Auto) 3.0, Baso % (Auto) 0.9, Neut # (Auto) 11.5 H, Lymph # (Auto) 1.4, [place] # (Auto) 1.6 H, Eos # (Auto) 0.5 H, Baso # (Auto) 0.1, Total Counted 100, Neutrophils % (Manual) 75, Lymphocytes % (Manual) 10, Monocytes % (Manual) 12 H, Eosinophils % (Manual) 1, Basophils % (Manual) 2.0 H, Platelet Estimate Moderate increase, Hypochromasia 2+, Anisocytosis 1+, Microcytosis 1+, Target Cells 1+, Acanthocytes (Spur) 1+, Schistocytes 1+, PT 13.3 H, INR 1.22 H, Sodium 132 L, Potassium 4.6, Chloride 95 L, Carbon Dioxide 26, Anion Gap 15.6 H, BUN 59 H, Creatinine 1.10 H, Estimated Creat Clear 79, Estimated GFR 49 L, Est GFR ( Amer) 59, Glucose 152 H, Calcium 9.2, Magnesium 1.9, Total Bilirubin 0.6, AST 30, ALT 21, Alkaline Phosphatase 151 H, Total Creatine Kinase 53, Troponin I 0.02, NT-Pro-B Natriuret Pep 4630 H, Total Protein 8.9 H, Albumin 4.4, Globulin 4.5 H, Albumin/Globulin Ratio 1.0 L, TSH 1.41, Free T4 1.83, Plasma/Serum Alcohol < 10 09/04/24 06:01: VBG pH 7.26 L, VBG pCO2 61.8 H, VBG pO2 33.3, VBG HCO3 26.8, VBG Total CO2 28.7 H, VBG O2 Saturation 52.2, VBG Base Excess -0.3, VBG Lactic Acid 2.4 H 09/04/24 06:28: Ammonia < 9 L 09/04/24 07:57: Urine Color Yellow, Urine Appearance Clear, Urine pH 6.0, Ur Specific [place] 1.010, Urine Protein Negative, Urine Glucose (UA) 3+, Urine Ketones Negative, Urine Blood 1+ A, Urine Nitrate Negative, Urine Bilirubin Negative, Urine Urobilinogen 0.2, Ur Leukocyte Esterase 2+ A, Urine RBC Occasional, Urine WBC 20-50, Ur Squamous Epith Cells 3-5, Urine Bacteria 1+ 09/04/24 07:59: Urine Opiates Screen Negative, Urine Methadone Screen Negative, Ur Barbituates Screen Negative, Ur Phencyclidine Scrn Negative, Ur Amphetamines Screen Negative, U Benzodiazepines Scrn Negative, Urine Cocaine Screen Negative, U Marijuana (THC) Screen Negative 09/04/24 05:56 09/04/24 05:56 Orders (Tests/Meds): ED MEDICATIONS Discontinued Medications Generic Name Dose Route Start Last Admin Trade Name Kelly PRN Reason Stop Dose Admin Albuterol/Ipratropium 9 ml 09/04/24 06:19 09/04/24 06:31 Ipratropium/Albuterol 3 Ml Neb IH 09/04/24 06:20 9 ml ONCE ONE Administration Albumin Human 12.5 gm in 50 mls @ 100 mls/hr 09/04/24 06:20 09/04/24 06:23 Albumin 25% (12.5gm) Soln 50ml Bag IV 09/04/24 06:49 100 mls/hr ONCE ONE Administration Iopamidol 80 ml 09/04/24 06:58 09/04/24 06:59 Iopamidol-370 (76%);100ml Bottle IV 09/04/24 06:59 80 ml ONCE ONE Administration Sodium Chloride 50 ml 09/04/24 06:58 09/04/24 06:59 0.9 % Sodium Chloride 50 Ml Vial IV 09/04/24 06:59 50 ml ONCE ONE Administration Sodium Chloride 10 ml 09/04/24 06:58 09/04/24 06:59 Sodium Chloride 0.9% 10ml Syr (Rad Only) IV 09/04/24 06:59 10 ml ONCE ONE Administration ORDERS Category Date Time Status CT angio chest PE protocol Stat Cat Scan 09/04/24 05:[address] cervical spine wo con Stat Cat Scan 09/04/24 06:[address] head/brain wo con Stat Cat Scan 09/04/24 05:51 Completed POCUS Point of Care (ER Only) Stat Exams 09/04/24 05:51 Completed Ammonia Stat Lab 09/04/24 06:28 Completed CK [Creatine Kinase] Stat Lab 09/04/24 05:56 Completed Complete Blood Count Auto Diff Stat Lab 09/04/24 05:56 Completed Comprehensive Metabolic Panel Stat Lab 09/04/24 05:56 Completed Drug Screen,Urine Stat Lab 09/04/24 07:59 Completed Ethyl Alcohol Stat Lab 09/04/24 05:56 Completed Free T4 (Free Thyroxine) Stat Lab 09/04/24 05:56 Completed Magnesium Stat Lab 09/04/24 05:56 Completed NT Pro Brain Natriuretic Pep. Stat Lab 09/04/24 05:56 Completed Prothrombin Time INR Stat Lab 09/04/24 05:56 Completed Thyroid Stimulating Hormone Stat Lab 09/04/24 05:56 Completed Troponin I Stat Lab 09/04/24 05:56 Completed Urinalysis and Microscopic Stat Lab 09/04/24 07:57 Completed Urine Culture Stat Micro 09/04/24 07:57 Received Venous Blood Gas Stat RT 09/04/24 06:01 Completed Medical Decision Narrative: In summary, this 69-year-old female with comorbidities described in the HPI not at goal therapy presents to the emergency department today with generalized weakness, mild shortness of breath, transient episodes of mild confusion. On initial evaluation patient has soft blood pressure but mentating well with normal heart rate, peripheral edema present, pulmonary exam notable for diminished breath sounds throughout with mild rales at the bases, patient has no focal neurologic deficits, completely oriented, NIH 0, chronically ill-appearing and obese, abdomen is mildly distended but I do not appreciate a fluid wave, no tenderness. Differential diagnosis includes but is not limited to ACS, PE, CHF exacerbation, hypoxia, hypercarbia, liver failure, hyperammonemia, sundowning, thyroid abnormality, infectious etiology such as pneumonia, aspiration, urinary tract infection, also considered intracranial bleed, mass, or midline shift as well as the possibility of C-spine injury though patient reports when she slipped off the end of the bed this morning she did not fall forward or strike her head. Patient has no evidence of traumatic injury to the knees though she landed on them when sliding off the bed. As part of my initial assessment I performed [id number] bedside ultrasound demonstrating B-lines throughout the lung child, worse at the bases, patient has grossly normal EF with evidence of mitral regurg, enlarged right heart compared to left which according to most recent echo is consistent with prior but does represent right heart strain, no pericardial effusion appreciated. Based on these concerns, I ordered broad workup of serum labs, cardiac workup, CT imaging, urine study. ECG personally interpreted demonstrates atrial fibrillation, rate 67, normal axis, normal QTc, patient has very subtle ST depression/downsloping in lead V2 and V3, no STEMI. Compared to previous ECG this is not significantly changed. Labs personally reviewed demonstrate respiratory acidosis with hypercarbia, she was placed on nasal cannula for comfort and DuoNebs were administered. Pressures already spontaneously improving compared to arrival. orthostatics are reassuring, blood pressure has already improved to systolics in the low 100s consistent with her most recent cardiology visit. CBC with leukocytosis slightly increased from previous now at 15.2 up from 12.3, anemia slightly worse than prior at 10.8 down from 12.0 in July, thrombocythemia is improved from July, PT/INR somewhat elevated but not specifically actionable at this time, CMP with mild hyponatremia and hypochloremia, anion gap mildly elevated at 15.6 consistent with the slightly elevated lactic acid on VBG, patient has more evidence of prerenal azotemia than she has in the past with BUN now 59, creatinine stable at 1.1, she has low albumin to globulin ratio and with the appearance of intravascular volume depletion but extravascular fluid overload, I am administering albumin rather than IV fluids at this time as I do not want to worsen any cardiac overload. Initial troponin 0.02. EtOH negative. After the albumin has been administered anticipate being able to give the patient a dose of IV diuretics but I do not want to diurese her before hopefully pulling some of her extravascular volume into the intravascular space. BNP resulted at 4630 which is high but not as high as it has been in the past. Free T4 normal at 1.83, additional labs including urine studies, ammonia, pending. Patient is already showing signs of improvement with the initial interventions. Awaiting further labs and imaging prior to further intervention at this time. Patient handed off to Dr. Lima At physician shift change for further management and disposition pending radiology studies and additional labs <Austen Lima MD - Last Filed: 09/04/24 13:40> Vital Signs: 09/04/24 05:45 09/04/24 05:55 09/04/24 06:13 Temperature 97.9 F Temperature Source Oral Pulse Rate 80 76 Pulse Rate [Orthostatic Lying Right Radial] Pulse Rate [Orthostatic Sitting Right Radial] Pulse Rate [Orthostatic Standing Right Radial] Pulse Rate [Right Radial] 71 Respiratory Rate 20 16 14 Blood Pressure 81/66 L 95/63 L Blood Pressure [Orthostatic Lying Right Arm] Blood Pressure [Orthostatic Sitting Right Arm] Blood Pressure [Orthostatic Standing Right Arm] Blood Pressure [Right Arm] 81/66 L Blood Pressure Mean Blood Pressure Mean [Right Arm] 71 Blood Pressure Source Blood Pressure Source [Right Arm] Automatic Cuff Blood Pressure Position Blood Pressure Position [Right Arm] Supine 02 Sat by Pulse Oximetry 96 95 95 Oxygen Delivery Method Nasal Cannula Room Air Room Air Oxygen Flow Rate (LPM) 2 09/04/24 06:14 09/04/24 06:15 09/04/24 06:17 Temperature Temperature Source Pulse Rate 68 Pulse Rate [Orthostatic Lying Right Radial] 65 Pulse Rate [Orthostatic Sitting Right Radial] 65 Pulse Rate [Orthostatic Standing Right Radial] 69 Pulse Rate [Right Radial] Respiratory Rate 16 Blood Pressure 105/50 L 109/66 L Blood Pressure [Orthostatic Lying Right Arm] 95/63 L Blood Pressure [Orthostatic Sitting Right Arm] 105/50 L Blood Pressure [Orthostatic Standing Right Arm] 109/66 L Blood Pressure [Right Arm] Blood Pressure Mean 76 Blood Pressure Mean [Right Arm] Blood Pressure Source Blood Pressure Source [Right Arm] Blood Pressure Position Blood Pressure Position [Right Arm] 02 Sat by Pulse Oximetry Oxygen Delivery Method Nasal Cannula Oxygen Flow Rate (LPM) 2 09/04/24 06:30 09/04/24 06:31 09/04/24 06:31 Temperature Temperature Source Pulse Rate 60 60 65 Pulse Rate [Orthostatic Lying Right Radial] Pulse Rate [Orthostatic Sitting Right Radial] Pulse Rate [Orthostatic Standing Right Radial] Pulse Rate [Right Radial] Respiratory Rate 17 Blood Pressure 110/51 L Blood Pressure [Orthostatic Lying Right Arm] Blood Pressure [Orthostatic Sitting Right Arm] Blood Pressure [Orthostatic Standing Right Arm] Blood Pressure [Right Arm] Blood Pressure Mean Blood Pressure Mean [Right Arm] Blood Pressure Source Blood Pressure Source [Right Arm] Blood Pressure Position Blood Pressure Position [Right Arm] 02 Sat by Pulse Oximetry 94 L Oxygen Delivery Method Aerosol Mask Oxygen Flow Rate (LPM) 09/04/24 06:43 09/04/24 07:05 09/04/24 07:15 Temperature Temperature Source Pulse Rate 70 76 68 Pulse Rate [Orthostatic Lying Right Radial] Pulse Rate [Orthostatic Sitting Right Radial] Pulse Rate [Orthostatic Standing Right Radial] Pulse Rate [Right Radial] Respiratory Rate 16 19 18 Blood Pressure 110/51 L Blood Pressure [Orthostatic Lying Right Arm] Blood Pressure [Orthostatic Sitting Right Arm] Blood Pressure [Orthostatic Standing Right Arm] Blood Pressure [Right Arm] Blood Pressure Mean Blood Pressure Mean [Right Arm] Blood Pressure Source Automatic Cuff Blood Pressure Source [Right Arm] Blood Pressure Position Supine Blood Pressure Position [Right Arm] 02 Sat by Pulse Oximetry 96 100 100 Oxygen Delivery Method Nasal Cannula Nasal Cannula Nasal Cannula Oxygen Flow Rate (LPM) 2 2 2 09/04/24 07:30 09/04/24 08:00 09/04/24 09:00 Temperature Temperature Source Pulse Rate 70 63 69 Pulse Rate [Orthostatic Lying Right Radial] Pulse Rate [Orthostatic Sitting Right Radial] Pulse Rate [Orthostatic Standing Right Radial] Pulse Rate [Right Radial] Respiratory Rate 16 16 16 Blood Pressure 116/63 121/63 114/60 Blood Pressure [Orthostatic Lying Right Arm] Blood Pressure [Orthostatic Sitting Right Arm] Blood Pressure [Orthostatic Standing Right Arm] Blood Pressure [Right Arm] Blood Pressure Mean 73 66 Blood Pressure Mean [Right Arm] Blood Pressure Source Blood Pressure Source [Right Arm] Blood Pressure Position Blood Pressure Position [Right Arm] 02 Sat by Pulse Oximetry 99 99 93 L Oxygen Delivery Method Room Air Oxygen Flow Rate (LPM) 09/04/24 09:30 09/04/24 09:45 09/04/24 10:05 Temperature 98.7 F Temperature Source Oral Pulse Rate 73 74 78 Pulse Rate [Orthostatic Lying Right Radial] Pulse Rate [Orthostatic Sitting Right Radial] Pulse Rate [Orthostatic Standing Right Radial] Pulse Rate [Right Radial] Respiratory Rate 16 15 19 Blood Pressure 104/65 L 104/65 L Blood Pressure [Orthostatic Lying Right Arm] Blood Pressure [Orthostatic Sitting Right Arm] Blood Pressure [Orthostatic Standing Right Arm] Blood Pressure [Right Arm] Blood Pressure Mean 78 Blood Pressure Mean [Right Arm] Blood Pressure Source Automatic Cuff Blood Pressure Source [Right Arm] Blood Pressure Position Sitting Blood Pressure Position [Right Arm] 02 Sat by Pulse Oximetry 95 95 Oxygen Delivery Method Room Air Room Air Room Air Oxygen Flow Rate (LPM) Lab Data Lab Results 09/04/24 05:56: WBC 15.2 H, RBC 4.98, Hgb 10.8 L, Hct 36.7 L, MCV 73.7 L, MCH 21.7 L, MCHC 29.4 L, RDW 21.6 H, Plt Count 565 H, MPV 10.2, Neut % (Auto) 75.8, Lymph % (Auto) 9.3 L, [place] % (Auto) 10.7 H, Eos % (Auto) 3.0, Baso % (Auto) 0.9, Neut # (Auto) 11.5 H, Lymph # (Auto) 1.4, [place]row # (Auto) 1.6 H, Eos # (Auto) 0.5 H, Baso # (Auto) 0.1, Total Counted 100, Neutrophils % (Manual) 75, Lymphocytes % (Manual) 10, Monocytes % (Manual) 12 H, Eosinophils % (Manual) 1, Basophils % (Manual) 2.0 H, Platelet Estimate Moderate increase, Hypochromasia 2+, Anisocytosis 1+, Microcytosis 1+, Target Cells 1+, Acanthocytes (Spur) 1+, Schistocytes 1+, PT 13.3 H, INR 1.22 H, Sodium 132 L, Potassium 4.6, Chloride 95 L, Carbon Dioxide 26, Anion Gap 15.6 H, BUN 59 H, Creatinine 1.10 H, Estimated Creat Clear 79, Estimated GFR 49 L, Est GFR ( Amer) 59, Glucose 152 H, Calcium 9.2, Magnesium 1.9, Total Bilirubin 0.6, AST 30, ALT 21, Alkaline Phosphatase 151 H, Total Creatine Kinase 53, Troponin I 0.02, NT-Pro-B Natriuret Pep 4630 H, Total Protein 8.9 H, Albumin 4.4, Globulin 4.5 H, Albumin/Globulin Ratio 1.0 L, TSH 1.41, Free T4 1.83, Plasma/Serum Alcohol < 10 09/04/24 06:01: VBG pH 7.26 L, VBG pCO2 61.8 H, VBG pO2 33.3, VBG HCO3 26.8, VBG Total CO2 28.7 H, VBG O2 Saturation 52.2, VBG Base Excess -0.3, VBG Lactic Acid 2.4 H 09/04/24 06:28: Ammonia < 9 L 09/04/24 07:57: Urine Color Yellow, Urine Appearance Clear, Urine pH 6.0, Ur Specific [place] 1.010, Urine Protein Negative, Urine Glucose (UA) 3+, Urine Ketones Negative, Urine Blood 1+ A, Urine Nitrate Negative, Urine Bilirubin Negative, Urine Urobilinogen 0.2, Ur Leukocyte Esterase 2+ A, Urine RBC Occasional, Urine WBC 20-50, Ur Squamous Epith Cells 3-5, Urine Bacteria 1+ 09/04/24 07:59: Urine Opiates Screen Negative, Urine Methadone Screen Negative, Ur Barbituates Screen Negative, Ur Phencyclidine Scrn Negative, Ur Amphetamines Screen Negative, U Benzodiazepines Scrn Negative, Urine Cocaine Screen Negative, U Marijuana (THC) Screen Negative Orders (Tests/Meds): ED MEDICATIONS Discontinued Medications Generic Name Dose Route Start Last Admin Trade Name Riveraq PRN Reason Stop Dose Admin Albuterol/Ipratropium 9 ml 09/04/24 06:19 09/04/24 06:31 Ipratropium/Albuterol 3 Ml Neb IH 09/04/24 06:20 9 ml ONCE ONE Administration Albumin Human 12.5 gm in 50 mls @ 100 mls/hr 09/04/24 06:20 09/04/24 06:23 Albumin 25% (12.5gm) Soln 50ml Bag IV 09/04/24 06:49 100 mls/hr ONCE ONE Administration Iopamidol 80 ml 09/04/24 06:58 09/04/24 06:59 Iopamidol-370 (76%);100ml Bottle IV 09/04/24 06:59 80 ml ONCE ONE Administration Sodium Chloride 50 ml 09/04/24 06:58 09/04/24 06:59 0.9 % Sodium Chloride 50 Ml Vial IV 09/04/24 06:59 50 ml ONCE ONE Administration Sodium Chloride 10 ml 09/04/24 06:58 09/04/24 06:59 Sodium Chloride 0.9% 10ml Syr (Rad Only) IV 09/04/24 06:59 10 ml ONCE ONE Administration ORDERS Category Date Time Status CT angio chest PE protocol Stat Cat Scan 09/04/24 05:[address] cervical spine wo con Stat Cat Scan 09/04/24 06:[address] head/brain wo con Stat Cat Scan 09/04/24 05:51 Completed POCUS Point of Care (ER Only) Stat Exams 09/04/24 05:51 Completed Ammonia Stat Lab 09/04/24 06:28 Completed CK [Creatine Kinase] Stat Lab 09/04/24 05:56 Completed Complete Blood Count Auto Diff Stat Lab 09/04/24 05:56 Completed Comprehensive Metabolic Panel Stat Lab 09/04/24 05:56 Completed Drug Screen,Urine Stat Lab 09/04/24 07:59 Completed Ethyl Alcohol Stat Lab 09/04/24 05:56 Completed Free T4 (Free Thyroxine) Stat Lab 09/04/24 05:56 Completed Magnesium Stat Lab 09/04/24 05:56 Completed NT Pro Brain Natriuretic Pep. Stat Lab 09/04/24 05:56 Completed Prothrombin Time INR Stat Lab 09/04/24 05:56 Completed Thyroid Stimulating Hormone Stat Lab 09/04/24 05:56 Completed Troponin I Stat Lab 09/04/24 05:56 Completed Urinalysis and Microscopic Stat Lab 09/04/24 07:57 Completed Urine Culture Stat Micro 09/04/24 07:57 Received Venous Blood Gas Stat RT 09/04/24 06:01 Completed Medical Decision Narrative: In summary, this 69-year-old female with comorbidities described in the HPI not at goal therapy presents to the emergency department today with generalized weakness, mild shortness of breath, transient episodes of mild confusion. On initial evaluation patient has soft blood pressure but mentating well with normal heart rate, peripheral edema present, pulmonary exam notable for diminished breath sounds throughout with mild rales at the bases, patient has no focal neurologic deficits, completely oriented, NIH 0, chronically ill-appearing and obese, abdomen is mildly distended but I do not appreciate a fluid wave, no tenderness. Differential diagnosis includes but is not limited to ACS, PE, CHF exacerbation, hypoxia, hypercarbia, liver failure, hyperammonemia, sundowning, thyroid abnormality, infectious etiology such as pneumonia, aspiration, urinary tract infection, also considered intracranial bleed, mass, or midline shift as well as the possibility of C-spine injury though patient reports when she slipped off the end of the bed this morning she did not fall forward or strike her head. Patient has no evidence of traumatic injury to the knees though she landed on them when sliding off the bed. As part of my initial assessment I performed [id number] bedside ultrasound demonstrating B-lines throughout the lung child, worse at the bases, patient has grossly normal EF with evidence of mitral regurg, enlarged right heart compared to left which according to most recent echo is consistent with prior but does represent right heart strain, no pericardial effusion appreciated. Based on these concerns, I ordered broad workup of serum labs, cardiac workup, CT imaging, urine study. ECG personally interpreted demonstrates atrial fibrillation, rate 67, normal axis, normal QTc, patient has very subtle ST depression/downsloping in lead V2 and V3, no STEMI. Compared to previous ECG this is not significantly changed. Labs personally reviewed demonstrate respiratory acidosis with hypercarbia, she was placed on nasal cannula for comfort and DuoNebs were administered. Pressures already spontaneously improving compared to arrival. orthostatics are reassuring, blood pressure has already improved to systolics in the low 100s consistent with her most recent cardiology visit. CBC with leukocytosis slightly increased from previous now at 15.2 up from 12.3, anemia slightly worse than prior at 10.8 down from 12.0 in July, thrombocythemia is improved from July, PT/INR somewhat elevated but not specifically actionable at this time, CMP with mild hyponatremia and hypochloremia, anion gap mildly elevated at 15.6 consistent with the slightly elevated lactic acid on VBG, patient has more evidence of prerenal azotemia than she has in the past with BUN now 59, creatinine stable at 1.1, she has low albumin to globulin ratio and with the appearance of intravascular volume depletion but extravascular fluid overload, I am administering albumin rather than IV fluids at this time as I do not want to worsen any cardiac overload. Initial troponin 0.02. EtOH negative. After the albumin has been administered anticipate being able to give the patient a dose of IV diuretics but I do not want to diurese her before hopefully pulling some of her extravascular volume into the intravascular space. BNP resulted at 4630 which is high but not as high as it has been in the past. Free T4 normal at 1.83, additional labs including urine studies, ammonia, pending. Patient is already showing signs of improvement with the initial interventions. Awaiting further labs and imaging prior to further intervention at this time. Patient handed off to Dr. Lima At physician shift change for further management and disposition pending radiology studies and additional labs Austen Lima MD At the [facility] care, patient pending CT imaging. CT of the head without contrast, CT C-spine without contrast, CTA of the chest interpreted by me personally prior to official radiology reads. No intracranial hemorrhage, mass or midline shift. There are age-related degenerative changes but no acute findings. No C-spine fractures or malalignment. No pulmonary embolism. No glass opacities to suggest pneumonia. Grossly unremarkable chest CTA. See radiology report for details. Patient is laboratory workup interpreted by me personally. She does have a leukocytosis, however it is not significantly elevated compared to previous studies back in July in June. Lactate very mildly elevated 2.4 and pH of 7.26 and mildly elevated anion gap. BNP is 4630, however this is actually improved from her baseline. Troponin of 0.02. CK normal at 53. TSH and free T4 within normal limits. Urinalysis resulted and shows 20-50 white blood cells with 2+ leukocyte esterase consistent with urinary tract infection, which could be the source of her intermittent confusion. Patient is alert and answering questions appropriately at this time. She denies any symptoms currently. Will prescribe antibiotics. Patient is not requiring oxygen therapy and her blood pressure is at its baseline. She has continued to remain afebrile. She does not meet sepsis criteria. It is felt that she is appropriate for outpatient management of her urinary tract infection. I spoke with daughter over the phone who notes that she has follow-up with her desktop support technician this afternoon, which I feel she is appropriate to attend. Given this, we will discharge patient on a 7-day course of Duricef for her urinary tract infection. Return precautions were given. The patient was then discharged from the emergency department in stable condition Procedures <Shaun Campos MD - Last Filed: 09/04/24 07:00> Miscellaneous Procedure Procedure Performed: Limited lung ultrasound A focused ultrasound exam of the pleural spaces was performed to evaluate for pneumothorax, pulmonary edema, pleural effusion and/or consolidation. The ultrasound was performed with the following indications, as noted in the H&P: Shortness of breath Identified structures: bilateral thoracic cavities were examined. Findings: Lung sliding: - Present bilaterally B-lines: Present bilaterally worse at the bases Pleural effusion: Absent bilaterally Consolidation: Absent bilaterally Impression: No pneumothorax, pleural effusion, or consolidation. B-lines present throughout the lung child but worse at the bases bilaterally Images were saved to permanent archive The study was technically adequate CPT 13661-56 This study was performed by oh, and I personally interpreted all images/videos. Based on my clinical judgement, these images were adequate and did not necessitate further imaging. Limited Cardiac Ultrasound Indication: Shortness of breath, generalized weakness Identified cardiac views: [-Cardiac parasternal long axis] [-Cardiac parasternal short axis] [-Cardiac apical four-chamber] [-Cardiac subxiphoid] Poor acoustic windows Limited study quality Findings: Cardiac activity present with no gross wall motion abnormality, no pericardial effusion, RV is dilated larger than the LV, evidence of right heart strain and septal bowing Impression: Cardiac activity present with no gross wall motion abnormality, no pericardial effusion, RV is dilated larger than the LV, evidence of right heart strain and septal bowing Images were saved to permanent archive The study was technically adequate CPT: 87432 This study was performed by oh, and I personally interpreted all images/videos. Based on my clinical judgement, these images were adequate and did not necessitate further imaging. Critical Care <Shaun Campos MD - Last Filed: 09/04/24 07:00> Critical Care Time Critical Care Time: Yes Attestation: On 09/04/24, the high probability of a clinically significant, sudden or life threatening deterioration of the following system(s) required my full and direct attention, intervention and personal management. The time I documented below is in addition to time spent performing reported procedures but includes the following listed in this critical care notation. Total Time Total Critical Care Time: 35
--- NOTE | 2024-09-04 06:09 | CT_ITS ---
FINAL REPORT TECHNIQUE: Thin section axial CT with sagittal reconstruction without contrast This study was performed with techniques to keep radiation doses as low as reasonably achievable, (ALARA). Individualized dose reduction techniques using automated exposure control or adjustment of mA and/or kV according to the patient's size were employed. CLINICAL HISTORY: fall no pain COMPARISON: 12/17/2022 FINDINGS: CT CERVICAL SPINE: No fracture is seen. Alignment is normal. Multilevel bony neural foraminal narrowing is noted. There is mild degenerative canal stenosis at the C4-5 level, similar to the prior exam of 2022. IMPRESSION: 1. No fracture or malalignment 2. Multilevel bony neural foraminal narrowing with mild degenerative canal stenosis at the C4-5 level similar to the prior exam of 2022. 3. If there is concern for a cord abnormality, would recommend MRI for further evaluation. Reviewed, Interpreted and Dictated by Dandy Ascencio MD Transcribed by Zoya Reyes Authenticated and [facility]
[2024-09-04 06:10] LABS: Lactate Venous 2.4 mmol/L (0.4-2.0); VBG PCO2 61.8 mmol/L (35-51)
--- NOTE | 2024-09-04 06:10 | PC.NURSE ---
VBG results called, notified
[2024-09-04 06:11] LABS: Albumin Level 4.4 g/dl (3.5-5.0); Chloride 95 mmol/L (98-107)
[2024-09-04 06:12] LABS: Potassium 4.6 mmoL/L (3.5-5.1); Sodium 132 mmol/L (136-145)
[2024-09-04 06:14] LABS: Alanine Aminotransferase 21 U/L (12-78); Anion Gap 15.6 mEq/L (5-15); Aspartate Amino Transferase 30 U/L (14-36); Blood Urea Nitrogen 59 mg/dl (7-17); Carbon Dioxide 26 mmol/L (22.0-30.0); Creatinine Clearance Estimated 79 mL/min (50-200); Creatinine,Serum 1.10 mg/dl (0.52-1.04); Estimated Glomerular Filt Rate 49 ml/min (>60); GFR (African American) 59 ML/MIN (>60)
[2024-09-04 06:15] LABS: Albumin/Globulin Ratio 1.0 (1.1-1.8); Alkaline Phosphatase 151 U/L (38-126); Bilirubin,Total 0.6 mg/dl (0.2-1.3); Calcium 9.2 mg/dl (8.4-10.2); Globulin 4.5 g/dL (1.3-3.2); Glucose 152 mg/dl (74-100); INR 1.22 (0.9-1.1); Prothrombin Time 13.3 seconds (10.1-12.5); Total Protein,Serum 8.9 g/dl (6.3-8.2)
[2024-09-04] MEDS: ALBUMIN HUMAN 12.5 GM/50 ML BAG IV (06:23)
[2024-09-04 06:24] LABS: Magnesium 1.9 mg/dl (1.6-2.3)
[2024-09-04 06:25] LABS: NT Pro Brain Natriuretic Pep. 4630 pg/mL (0-125)
[2024-09-04 06:27] LABS: Troponin I 0.02 ng/ml (0.00-0.034)
[2024-09-04] MEDS: IPRATROPIUM/ALBUTEROL 3 ML NEB 9 ML IH (06:31)
[2024-09-04 06:37] LABS: Creatine Kinase 53 U/L (30-135)
[2024-09-04 06:42] LABS: Free T4 (Free Thyroxine) 1.83 ng/dl (0.78-2.19)
[2024-09-04 06:46] LABS: Ammonia < 9 umol/L (9-30)
[2024-09-04 06:46] LABS: Thyroid Stimulating Hormone 1.41 uIU/mL (0.465-4.68)
[2024-09-04] MEDS: SODIUM CHLORIDE 0.9% 10ML SYR (RAD ONLY) 10 ML IV (06:59)
[2024-09-04] MEDS: IOPAMIDOL-370 (76%);100ML BOTTLE 80 ML IV (06:59)
[2024-09-04] MEDS: 0.9 % SODIUM CHLORIDE 50 ML VIAL IV (06:59)
[2024-09-04 07:33] LABS: Total Cells Counted 100
[2024-09-04 07:34] LABS: Acanthocytes 1+; Target Cells 1+
[2024-09-04 07:35] LABS: Anisocytosis 1+; Hypochromasia 2+; Microcytosis 1+; Schistocytes 1+
[2024-09-04 08:01] LABS: Microscopic, Urine URINE MICROSCOPIC (MICROSCOPIC)
[2024-09-04 08:12] LABS: Bilirubin,Urine Negative (Negative); Color,Urine YELLOW (Yellow); Glucose,Urine (UA) 3+ (Negative); Ketones,Urine Negative (Negative); Leukocyte Esterase,Urine 2+ (Negative); PH,Urine 6.0 (5.0-8.5); Protein,Urine Negative (Negative); Specific Gravity, Urine 1.010 (1.005-1.030); Urobilinogen,Urine 0.2 EU/dl (0.2)
[2024-09-04 08:24] LABS: Benzodiazepines Screen,Urine Negative ng/ml (<200)
[2024-09-04 08:25] LABS: Amphetamine/Metha Screen,Urine Negative ng/ml (<1000); Barbiturates Screen,Urine Negative ng/ml (<200)
[2024-09-04 08:26] LABS: Bacteria,Urine 1+ /lpf; RBC,Urine Occasional #/hpf (0-3); WBC,Urine 20-50 #/hpf (0-3)
[2024-09-04 08:28] LABS: Methadone Screen,Urine Negative ng/ml (<300)
[2024-09-04 08:29] LABS: Opiate Screen,Urine Negative ng/ml (<300)
[2024-09-04 08:30] LABS: Phencyclidine Screen,Urine Negative ng/ml (<25)
--- NOTE | 2024-09-04 08:42 | PC.NURSE ---
I rounded on the pt. no needs voiced. no new complaints. call carmen in reach.
--- NOTE | 2024-09-04 08:49 | PC.NURSE ---
I attempted to call the pts daughter per . I was unable to reach her at this time. VM left to return my call.
--- NOTE | 2024-09-04 09:24 | PC.NURSE ---
The pts daughter called back and updated her.
--- NOTE | 2024-09-04 09:34 | PC.NURSE ---
Patient resting well in bed, denies complaints. VS WNL. Awaiting daughters return for dispo.
[2024-09-04 10:09] LABS: Reflex Lactic Add Lactic Reflex
--- NOTE | 2024-09-05 11:17 | PC.NURSE ---
I discussed the pts prelim urine culture with . No change needed to treatment plan at this time.
--- NOTE | 2024-09-07 14:40 | PC.NURSE ---
I discussed the pts final urine culture result with . No change needed to treatment plan.
== END 2024-09-04 10:06 | disposition home or self-care (01) ==
PROVIDERS: Emergency Medicine; Emergency Provider Student in an Organized Health Care Education/Training Program; PCP Internal Medicine
DX: N39.0 Urinary tract infection, site not specified (principal); I11.0 Hypertensive heart disease with heart failure; I50.33 Acute on chronic diastolic (congestive) heart failure; I34.0 Nonrheumatic mitral (valve) insufficiency; R41.0 Disorientation, unspecified; R53.1 Weakness; I48.11 Longstanding persistent atrial fibrillation
CPT/HCPCS: 70450; 71275; 72125; 80053; 80307; 80320; 81001; 82140; 82550; 82803; 83735; 83880; 84439; 84443; 84484; 85007; 85025; 85027; 85610; 87086; 87088; 87186; 93005; 99291; P9047; Q9967

== ENCOUNTER 2024-09-26 10:39 | Outpatient (CLI) | payer MEDICARE, BC, SELFPAY ==
--- OUTSIDE RECORDS SUMMARY | 2024-08-11 08:20 | XMS_ITS | Encounter Summary ---
Author Organization [facility] Address [address] [place] [address] Care Team Providers Care Manager Retail Store Name Role Phone Maegan Bermeo MD Primary Care Provider [phone] Reason for Referral * Other Medical (Routine) - Pending Review Specialty Diagnoses / Procedures Referred By Contac t Referred To Contact Diagnoses Ulcer of toe of left foot, with fat layer exposed (CMS/HCC) Procedures Debridement Raimundo Hatch DPM [address] [address] Phone: tel: fax: Referral ID Status Reason Start Date Expiration Date V isits Requested Visits Authorized [id number] Pending Review 08/11/2024 02/10/2026 1 1 * Other Medical (Routine) - Pending Review Specialty Diagnoses / Procedures Referred By Contac t Referred To Contact Diagnoses Ulcer of toe of left foot, with fat layer exposed (CMS/HCC) Procedures Debridement Raimundo Hatch DPM [address] [facility] [address] [place] [address] Phone: tel: fax: Referral ID Status Reason Start Date Expiration Date V isits Requested Visits Authorized [id number] Pending Review 08/11/2024 02/10/2026 1 1 Reason [...] [address] [place] [address] Phone: tel: fax: Referral ID Status Reason Start Date Expiration Date V isits Requested Visits Authorized [id number] Closed Specialty Services Required 07/26/2024 01/25/2026 1 1 Encounter Details Date Type Department Care Team (Latest Contact Info) Description 08/11/2024 8:20 AM EDT Office Visit [facility] [address] 5th Floor [address] [place] [address] Raimundo Hatch, DESTINY [address] [facility] [address] [place] [address] Ulcer of toe of left foot, with fat layer exposed ([facility]HCC) (Primary Dx); Diabetic neuropathy with neurologic complication ([facility]/HCC); Hammer toe, acquired Social History Tobacco Use [...] drink first t ken in the morning (EYE-AUTOMOTIVE PARTS INTERPRETER) to steady your nerves or to get [...] Stoner RN - 08/11/2024 8:20 AM EDT [facility] Physician Orders/Patient Instructions Should you notice [...] note were not included. Left 3rd toe- [facility] Previous provider ordered x-rays/CT scan at [facility], suspicious for osteomyelitis. * Progress Notes - Raimundo Hatch DPM - 08/11/2024 8:20 AM EDTAssociated Order(s): Debridement Post-Procedure Diagnose(s): Ulcer of toe of left foot, with fat layer exposed ([facility]) Subjective Rica Flannery is a 68 y.o. [...] has been seeing a physician in the [facility]. She has had previous MRI and arterial [...] provider verified the correct patient, procedure, equipment, customer support consultant, and site/side marked as required. Debridement Details [...] amputation in the event of acute worsening. [employer] direct dictation software was utilized in part [...] Procedure Name Priority Date/Time Associated Diagnosis Comments [place] DEBRIDEMENT, SKIN, SUB-Q TISSUE,=<20 SQ CM Routine 08/11/2024 8:20 AM EDT Ulcer of toe of left foot, with fat layer exposed ([facility]) documented in this encounter Results * VT DEBRIDEMENT, SKIN, SUB-Q TISSUE,=<20 SQ CM (08/11/2024 [...] provider verified the correct patient, procedure, equipment, customer support consultant, and site/side marked as required. Debridement Details [...] of left foot, with fat layer exposed ([facility])- Primary Diabetic neuropathy with neurologic complication ([facility]) Type II or unspecified type diabetes mellitus [...] as of this encounter Care Teams Manager Retail Store Relationship Specialty Start Date End Date Maegan Bermeo MD [address] [place] [address] PCP - General Family Medicine 09/15/21 documented as of this encounter
--- OUTSIDE RECORDS SUMMARY | 2024-08-18 09:20 | XMS_ITS | Encounter Summary ---
Author Organization [facility] Address [address] [place] [address] Care Team Providers Care Crew Boss Name Role Phone Maegan Bermeo MD Primary Care Provider [phone] Reason for Visit * Reason Comments Foot Ulcer Encounter Details Date Type Department Care Team (Latest Contact Info) Description 08/18/2024 9:20 AM EDT Office Visit [place] [facility] [address] [place] [address] Raimundo Hatch, DPM [address] [place] [address] Hammmiguel toe, acquired (Primary Dx) [...] drink first t ken in the morning (EYE-PIPING DESIGN SPECIALIST) to steady your nerves or to [...] Stoner RN - 08/18/2024 9:20 AM EDT [facility] Physician Orders/Patient Instructions Should you notice a [...] documented as of this encounter Care Teams Crew Boss Relationship Specialty Start Date End Date Maegan Bermeo MD [address] [place] [address] PCP - General Family Medicine 09/15/21 documented as of this encounter
--- OUTSIDE RECORDS SUMMARY | 2024-09-15 10:40 | XMS_ITS | Encounter Summary ---
Author Organization [facility] Address [address] [place] [address] Care Team Providers Care Belt Loop Maker Name Role Phone Maegan Bermeo MD Primary Care Provider [phone] Reason for Visit * Reason Comments Wound Check Encounter Details Date Type Department Care Team (Latest Contact Info) Description 09/15/2024 10:40 AM EDT Office Visit [place] [facility] [address] 5th Floor [address] [place] [address] Raimundo Hatch, DPM [address] [place] [address] Ulcer of toe of left [...] drink first t ken in the morning (EYE-VACUUM CLEANER REPAIR PERSON) to steady your nerves or to get [...] Stoner RN - 09/15/2024 10:40 AM EDT [facility] Physician Orders/Patient Instructions Should you notice [...] also requesting palliative care. She lives in [facility] in his asking if there is [...] draining area. I have recommended shoe see [place] foot [facility] ankle specialist in [facility] and she is interested in routine [...] documented as of this encounter Care Teams Belt Loop Maker Relationship Specialty Start Date End Date Maegan Bermeo MD [address] [place] [address] PCP - General Family Medicine 09/15/21 documented as of this encounter
[2024-09-26 11:50] LABS: Iron 31 ug/dL (37-170)
[2024-09-26 11:53] LABS: Hemoglobin A1C 8.3 % (4.0-6.0)
[2024-09-26 11:59] LABS: Total Iron Binding Capacity 441 ug/dL (265-497)
[2024-09-26 12:28] LABS: Ferritin 11.0 ng/ml (11.1-264)
--- OUTSIDE RECORDS SUMMARY | 2024-09-29 10:47 | XMS_ITS | Encounter Summary ---
Author Organization [facility] Address [address] [place] [address] Care Team Providers Care Associate Of Science In Nursing Name Role Phone Maegan Bermeo MD Primary Care Provider [phone] Encounter Details Date Type Department Care Team (Latest Contact Info) Description 09/15/2024 Travel Social History Tobacco Use Types Packs/Day [...] drink first t ken in the morning (EYE-SEASONAL DELIVERY DRIVER) to steady your nerves or to get [...] documented as of this encounter Care Teams Associate Of Science In Nursing Relationship Specialty Start Date End Date Maegan Bermeo MD [address] [place] [address] PCP - General Family Medicine 09/15/21 documented as of this encounter
--- OUTSIDE RECORDS SUMMARY | 2024-09-29 10:47 | XMS_ITS | Clinical Summary ---
Author Organization [facility] Address [address] [place] [address] Care Team Providers Care Billet Examiner Name Role Phone Tricia Pérez MD Primary Care Provider [phone] Allergies Active Allergy Reactions Criticality Noted Date Comments Levofloxacin Hives 07/20/2018 Medications metFORMIN ER (GLUCOPHAGE-XR) 500 MG 24 hr tablet 0 07/06/2018 Active hydrochlorothia zide (HYDRODIURIL) 50 MG tablet Take 50 mg by mouth Daily. 0 06/08/2018 Active glimepiride (AMARYL) 4 MG tablet Take 4 mg by mouth Daily. 0 07/08/2018 Active citalopram (CeleXA) 20 MG tablet 0 07/06/2018 Active simvastatin (ZOCOR) 20 MG tablet 0 07/06/2018 Active metoprolol succinate XL (TOPROL-XL) 50 MG 24 hr tablet Take 50 mg by mouth Daily. 0 07/08/2018 Active methylPREDNISol one (MEDROL, LORENZA,) 4 MG tabletIndicatio ns:Sorethroat Take as directed on package instructions. 21 tablet 07/20/2018 Active Active Problems No known active problems Social History Tobacco Use Types Packs/Day Years Used Date Smoking Tobacco: Never Abuse Screen Answer Date Recorded Unsafe at Home or Work/School Not on file Feels Threatened by Someone? Not on file 01/2023 Does Anyone Keep You from Co ntacting Others or Doint Things Outside the Home? Not on file 11/30/2022 Physical Sign of Abuse Present Not on file 1 Housing Stability Answer Date Recorded Current Living Arrangements Not on file 11/19 Potentially Unsafe Housing Conditions Not on delisa e 11/30/2022 Family and Community Support Answer Dennys e Recorded Help with Day-to-Day Activities Not on file 11/30/2022 Lonely or Isolated Not on file 11/30/2022 Employment Answer Date Recorded Do you want help finding or keeping work or a kiara b? Not on file 11/30/2022 Disabilities Answer Date Recorded Concentrating, Remembering, or Making Decisions Difficulty Not on file 11/30/2022 Doing Errands Independently Difficulty Not on fi le 11/30/2022 Education Answer Date Recorded Help with school or training? Not on file Preferred Language Not on file 11/30/2022 Comments No Sex and Gender Information Value Date Recorded Sex Assigned at Not on file Legal Sex Female 1:48 PM EDT Gender Identity Not on file Sexual Orientation Not on file Last Filed Vital Signs Vital Sign Reading Time Taken Comments Blood Pressure 140/82 07/20/2018 2:01 PM EDT Pulse 83 07/20/2018 2:01 PM EDT Temperature 37.4 C (99.4 F) 07/20/2018 2:01 PM EDT Respiratory Rate 12 07/20/2018 2:01 PM EDT Oxygen Saturation 95% 07/20/2018 2:01 PM EDT Inhaled Oxygen Concentration - - Weight 122 kg (269 lb) 07/20/2018 2:01 PM EDT Height 165.1 cm (5' 5 ) 07/20/2018 2:01 PM EDT Body Mass Index 44.76 07/20/2018 2:01 PM EDT Plan of Treatment Health Maintenance Due Date Last Done Comments DXA SCAN 1953 TDAP/TD VACCINES (1 - Tdap) 1972 MAMMOGRAM 1993 COLOGUARD 1998 COLON CANCER SCREENING 5 YEAR SIGMOIDOSCOPY 1998 COLONOSCOPY 1998 COL[address]AL CANCER SCREENING 1998 CT COLONOGRAPHY 1998 FECAL OCCULT BLOOD TEST 1998 FIT Testing (1 year) 1998 Pneumococcal Vaccine 50+ (1 of 1 - PCV) 08/20/2003 ZOSTER VACCINE (1 of 2) 08/20/2003 ANNUAL PHYSICAL 07/20/2018 HEPATITIS C SCREENING 07/20/2018 COVID-19 Vaccine ( - 2023-25 season) 2023 INFLUENZA VACCINE 11/19/2024 Insurance MEDICARE A & B [facility] Care Teams Billet Examiner Relationship Specialty Start Date End Date Tricia Pérez MD [address] [place] [address] PCP - General Family Medicine 07/20/18
--- OUTSIDE RECORDS SUMMARY | 2024-09-29 10:47 | XMS_ITS | Encounter Summary ---
Author Organization [facility] Address [address] [place] [address] Care Team Providers Care Armature Coil Winder Name Role Phone Maegan Bermeo MD Primary Care Provider [phone] Audra Wahl MOTION PICTURE PROJECTIONIST Unavailable Unavailab Jessa Jimenez MOTION PICTURE PROJECTIONIST Unavailable Unavailable Reason for Visit * Reason Comments Med Refill Encounter Details Date Type Department Care Team (Late st Contact Info) Description 10/11/2021 Refill Family and Community Medicine [address] [place] [address] Maegan Bermeo MD [address] [place] [address] Avitaminosis D Social History Tobacco [...] asymptomatic, not immunocompromised. Team aware. EVS notified. [facility] has verified patient has a COVID-19 positive result. A chart review has been completed, EPI PUI has been completed and sent to appropriate Health Dept. IPA Spraying Machine Operator: Nimco Simms 10/26/2021 10/26/2021 022 10:27 AM EDT COVID 19 (Confirmed) 11/11/2021 11/11/2021 022 5:23 AM EDT COVID-19 Rule-Out 05/16/2022 05/16/2022 05/16/2022 11:05 PM EDT Assessment Noted Time A fall risk assessment has been complete d for the patient 10/11/2021 11:31 AM EDT documented as of this encounter Care Teams Armature Coil Winder Relationship Specialty Start Date End Date Maegan Bermeo MD [facility] [place] [address] PCP - General Family Medicine 09/15/21 Audra Wahl LPN [employer] [place] [address] TCM Nurse 09/27/21 10/27/21 Jessa Park LPN [employer] [place] [address] Registered Nurse 05/26/22 05/26/22 documented as of this encounter
--- OUTSIDE RECORDS SUMMARY | 2024-09-29 10:47 | XMS_ITS | Encounter Summary ---
Author Organization [facility] Address [address] [place] [address] Care Team Providers Care Burner Shaft Name Role Phone Jan Castelan MD Primary Care Provider [phone] Benjie Quezada MD Primary Care Provider Tamika Loomis APRN Primary Care Provider [phone] Maegan Bermeo MD Primary Care Provider [phone] Audra Wahl SALES PROFESSIONAL Unavailable Unavailab Jessa Jimenez SALES PROFESSIONAL Unavailable Unavailable Reason for Visit * Reason Comments Med Refill Encounter Details Date Type Department Care Team (Late st Contact Info) Description 07/27/2020 Refill Family and Community Medicine [address] [place] [address] Jan Castelan MD [address] [place] [address] Social History Tobacco Use Types [...] and sent to appropriate Health Dept. IPAC Trampoline Team Coach: Brandiedon Demi 10/26/2021 10/26/2021 022 10:27 AM EDT COVID 19 (Confirmed) 11/11/2021 11/11/2021 022 5:23 AM EDT COVID-19 Rule-Out 05/16/2022 05/16/2022 05/16/2022 11:05 PM EDT documented as of this encounter Care Teams Burner Shaft Relationship Specialty Start Date End Date Jan Castelan MD [address] [place] [id number] PCP - General 07/02/20 08/07/21 Benjie Quezada MD [address] [place] [address] PCP - General Family Medicine 08/08/21 08/30/21 Tamika Loomis APRN [address] [place] [address] PCP - General Family Medicine 08/31/21 09/14/21 Maegan Bermeo MD [address] [place] [address] PCP - General Family Medicine 09/15/21 Audra Wahl LPN [employer] [address] TCM Nurse 09/27/21 10/27/21 Jessa Park LPN [employer] [address] Registered Nurse 05/26/22 05/26/22 documented as of this encounter
--- OUTSIDE RECORDS SUMMARY | 2024-09-29 10:48 | XMS_ITS | Encounter Summary ---
Author Organization [facility] Address [address] [place] [address] Care Team Providers Care Dry Drug Worker Name Role Phone Cassia Blanco Dr Primary Care Provider Unavailabl e Reason for Referral * Consultation (Routine) - Authorized Specialty Diagnoses / Procedures Referred By Contac t Referred To Contact Pulmonology Diagnoses Pulmonary hypertension Procedures Six Minute Walk Test Aubrey Chang MD [address] [facility] [place] [address] Phone: tel: fax: [facility] Pulmonology [address] [place] [address] Phone: tel: fax: Referral ID Status Reason Start Date Expiration Date Visits Requested Visits Authorized [id number] Authorized Specialty Services Required 09/22/2024 10/22/2025 1 1 * Consultation (Routine) - Authorized Specialty Diagnoses / Procedures Referred By Contac t Referred To Contact Pulmonology Diagnoses Pulmonary hypertension Procedures Pulmonary function test Aubrey Chang MD [address] [facility] [place] [address] Phone: tel: fax: [facility] - Pulmonology [address] [address] Phone: tel: fax: Referral ID Status Reason Start Date Expiration Date Visits Requested Visits Authorized [id number] Authorized Specialty Services Required 09/22/2024 10/22/2025 1 1 Encounter Details Date Type Department Care Team (Late st Contact Info) Description 09/22/2024 Orders Only [facility] - Pulmonology [address] [address] [place] Pulmonary hypertension (Primary Dx) Social History Tobacco Use Types Packs/Day Years Used Date Smoking Tobacco: Never Assessed Comments Unknown Sex and Gender Information Value Date Recorded Sex Assigned at Not on file Legal Sex Female 10:15 AM EDT Gender Identity Not on file Sexual Orientation Not on file documented as of this encounter Plan of Treatment Upcoming Encounters Date Type Department Care Team (Late Contact Info) Description 10/06/2024 2:00 PM EDT Office Visit [facility] - [facility] [address] [facility] [address] [place] [address] Abisai Booth MD [address] [place] [address] [address] [place] [phone] 10/07/2024 2:00 PM EDT Procedure Visit [facility] Pul[facility] [address] [address] 10/07/2024 2:40 PM EDT Procedure Visit [facility] Pulmon[facility] [address] [address] 10/07/2024 3:00 PM EDT [facility] [address] [facility] [address] [place] [address] Aubrey Chang MD [address] [place] [address], [address] [place] [address] Scheduled Orders Name Type Priority Associated Diagnoses Orde r Schedule Pulmonary function test PFT Routine Pulmonary hypertension Expected: 09/22/2024, Expires: 09/22/2025 Six Minute Walk Test PFT Routine Pulmonary hypertension Expected: 09/22/2024, Expires: 09/22/2025 documented as of this encounter Visit Diagnoses Diagnosis Pulmonary hypertension- Primary documented in this encounter Care Teams Dry Drug Worker Relationship Specialty Start Date End Date Cassia Blanco Dr. PCP - General 09/08/24 documented as of this encounter
--- OUTSIDE RECORDS SUMMARY | 2024-09-29 10:48 | XMS_ITS | Encounter Summary ---
Author Organization [facility] Address [address] [place] [address] Care Team Providers Care Welt Slasher Name Role Phone Cassia Blanco Dr Primary Care Provider Unavailabl e Reason for Visit * Reason Onset Date Comments Hospital Follow Up 09/22/2024 Encounter Details Date Type Department Care Team ([facility] st Contact Info) Description 09/22/2024 Telephone [facility] Administrative Services [address] [facility] [address] [place] [address] Stefanie Graves RN Hospital Follow Up Social History Tobacco Use Types Packs/Day Years Used Date Smoking Tobacco: Never Assessed Comments Unknown Sex and Gender Information Value Date Recorded Sex Assigned at Not on file Legal Sex Female 10:15 AM EDT Gender Identity Not on file Sexual Orientation Not on file documented as of this encounter Miscellaneous Notes * Telephone Encounter - Stefanie Graves RN - 09/23/2024 2:28 PM EDT Transitional Care Management Patient Contact Rica Prudencio 1955 Date of Discharge: 09/19/2024 [facility] Diagnosis at time of Discharge: Severe pulmonary hypertension Cor pulmonale Severe TR Date of Call: 09/23/2024 Date of [facility] Face-to Face Visit: Call Status Call Status: Completed General Clinical How are you feeling now?: Spoke with pt.'s daughter, Marisol. Marisol reports some confusion withwhere prescriptions were sent at d/c as prescriptions were sent to both [facility] and [facility]. Marisol ststes she has addressed this issue and they have no current needs at time of call. Are you able to complete your routine daily activities?: Yes Since your discharge, have you had any emergency room visits or admissions?: No Are you experiencing any other problems that should be addressed?: No Discharge Did you receive discharge instructions?: Yes, verbal and written Did you fill all your prescriptions?: Yes (Pharmacy is working on filling remainder of prescriptions.) Are you taking your medications as prescribed?: Yes Follow-Up Visit Do you have a follow-up appointment scheduled with your PCP?: Yes (Daughter states recommended f/u has been scheduled.) Do you understand the importance of the follow-up appointment?: Yes Do you have any conflicts that would cause you to miss your follow-up appointment?: No The hospital discharge medication list was reviewed and reconciled with the outpatient medication list. Yes. Stefanie Graves RN 09/23/2024 2:28 PM documented in this encounter Plan of Treatment Upcoming Encounters Date Type Department Care Team (Late st Contact Info) Description 10/06/2024 2:00 PM EDT Office Visit [facility] - Cardiovascular Medicine [address] [facility] [address] [place] [address] Abisai Booth MD [address] [place] [address] [address] [place] [address] 10/07/2024 2:00 PM EDT Procedure Visit [facility] Pulmonology [address] [facility] 310 [place] [address] 10/07/2024 2:40 PM EDT Procedure Visit [facility] [address] [facility] 310 [place] [address] 10/07/2024 3:00 PM EDT [facility] [address] [facility] [address] [place], [place] [id number] Aubrey Chang MD [address] [place] [address], [address] [place] [address] documented as of this encounter Visit Diagnoses Not on filedocumented in this encounter Care Teams Welt Slasher Relationship Specialty Start Date End Date Cassia Blanco Dr. PCP - General 09/08/24 documented as of this encounter
--- OUTSIDE RECORDS SUMMARY | 2024-09-29 10:48 | XMS_ITS | Encounter Summary ---
Author Organization Healthcare Address [address] [place] [address] Care Team Providers Care Facility Manager Histology Name Role Phone Maegan Bermeo MD Primary Care Provider [phone] Jessa Park LPN Unavailable Unavailable Reason for Visit * Reason Comments Med Refill Encounter Details Date Type Department Care Team (Late st Contact Info) Description 11/26/2021 Refill [facility] [address] [place] [address] Benjie Quezada MD [address] [place] [address] Social History Tobacco Use Types [...] Indicated Resolved Time COVID 19 (Confirmed) 11/11/2021 11/11/202112/02/ 022 5:23 AM EDT COVID-19 Rule-Out 05/16/2022 05/16/2022 05/16/2022 11:05 PM EDT Assessment Noted Time A fall risk assessment has been complete d for the patient 10/11/2021 11:31 AM EDT documented as of this encounter Care Teams Facility Manager Histology Relationship Specialty Start Date End Date Maegan Bermeo MD [address] [place] [id number] PCP - General Family Medicine 09/15/21 Jessa Park LPN [employer] [address] Registered Nurse 05/26/22 05/26/22 documented as of this encounter
--- OUTSIDE RECORDS SUMMARY | 2024-09-29 10:48 | XMS_ITS | Clinical Summary ---
Author Organization [facility] Address [address] [facility] [address] [place] [address] Care Team Providers Care Draw Frame Operator Name Role Phone Cassia Blanco Dr Primary Care Provider Unavailabl e Allergies Active Allergy Reactions Criticality Noted Date Comments Levofloxacin Hives Medium 07/20/2018 Meperidine Nausea Only Low 05/24/2017 Medications Eliquis 5 MG tablet 08/21/2024 Active atorvastatin (Lipitor) 40 MG tablet Take 40 mg by mouth in the morning. 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 Tylenol and oxycodone 5 mg -will continue to monitor -can consider MRI with development of symptoms -may warrant Ortho Spine consult in a.m. At high risk for fall 03/03/2022 Pleural effusion 11/05/2021 Overview (09/18/2024): Right sided effusion Home lasix 11/08: AM chest x-ray reviewed with no concerns Chronic right-sided heart failure 10/31/2021 Overview (09/18/2024): Echo September 2021 with RVSP 92, severe dilation Cirrhosis could be contributing Echo ordered 10/31: LVEF >50%; RSVP 68 (down from 92 on last ECHO) Home meds restarted Thrombocytosis 10/28/2021 Overview (09/18/2024): Monitor/trend COVID-19 10/27/2021 Overview (09/18/2024): Out of isolation Fall 10/27/2021 Overview (09/18/2024): Admit SGT Lesion of uterus 10/27/2021 Overview (09/18/2024): Noted on imaging Hypodense lesion along the fundus and heterogenous lesion along the anterior wall Follow up as outpatient Acute respiratory failure with hypoxia Overview (09/18/2024): -pt noted to be hypoxic at home and arrived on 2L O2 supplementation -was able to be weaned to RA briefly in ED but subsequently became hypoxic to low 80s requiring 4L supplementation to be restarted -CXR without acute findings, showing chronic cardiomegaly and signs consistent with congestion PLAN: -wean O2 as tolerated -continue diuresis in setting of CHFE Fracture of twelfth thoracic vertebra 10/26/2021 Overview (09/18/2024): - Acute obliquely oriented fracture through the [...] lay on side Follow up with Glory Everardo on 12/01 Chronic atrial fibrillation 10/11/2021 Overview (09/18/2024): -home regimen of Metoprolol succinate 50 mg daily and eliquis 5mg BID PLAN: -telemetry -continue eliquis -hold metoprolol in setting of CHFE Right cardiac ventricular dilatation 10/11/2021 Overview (09/18/2024): Noted on ECHO following recent hospitalization Patient has outpatient Cardiology follow up Continue volume management with diuresis Body mass index 40+ - severely obese 06/06/2021 Overview (09/18/2024): -BMI 39.54 -Complicates care -Complicates mobility Generalized anxiety disorder 03/04/2021 Overview (09/18/2024): -continue home Cymbalta 60mg daily and nortriptyline 50mg nightly Mixed hyperlipidemia 04/23/2019 Overview (09/18/2024): -continue home simvastatin 20mg nightly Essential (primary) hypertension 05/24/2017 Overview (09/18/2024): -currently taking lasix 20mg BID, losartan 50mg daily, metoprolol succinate 50mg daily -hypo to normotensive on admission -See CHF exacerbation problem Polyneuropathy due to type 2 diabetes mellitus 0 05/24/2017 Overview (09/18/2024): -most recent A1c 5.5% in Feb 2022 -currently takes metformin 1000mg BID and januvia 100mg daily PLAN: -admit on SSI Encounters Date Type Department Care Team Description 09/22/2024 Orders Only [facility] [address] [facility] [address] [place] [address] Dov Lopez CRTT Pulmonary hypertension (Primary Dx) 09/22/2024 Telephone [facility] - Pulmonology [address] [facility] [address] [place] [address] NabilaOlga Lidia CRTT Hospital f/u Appt Request 09/22/2024 Telephone [facility] [address]rd [place] [address] Phy, Unknown 09/22/2024 Telephone [facility] Administrative Services [address] [facility] [address] [place] [address] Stefanie Graves RN Hospital Follow Up 09/19/2024 Orders Only [facility] - Cardiovascular Medicine [address] [address] Thomas Hoffmann MD Pulmonary hypertension, not otherwise specified (Primary Dx); Obstructive sleep apnea from Last 3 Months Social History Tobacco Use Types Packs/Day Years Used Date Smoking Tobacco: Never Assessed Comments Unknown Sex and Gender Information Value Date Recorded Sex Assigned at Not on file Legal Sex Female 10:15 AM EDT Gender Identity Not on file Sexual Orientation Not on file Plan of Treatment Upcoming Encounters Date Type Department Care Team (Late st Contact Info) Description 10/06/2024 2:00 PM EDT Office Visit [facility] - Cardiovascular Medicine [address] [facility] [address] [place] [address] Abisai Booth MD [address] [place] [address] 310 [place] [address] 10/07/2024 2:00 PM EDT Procedure Visit [facility] Pulmonology [address] [facility] 310 [place] [address] 10/07/2024 2:40 PM EDT Procedure Visit [facility] Pulmonology [address] [facility] 310 [place] [address] 10/07/2024 3:00 PM EDT Office Visit [facility] [address] [facility] [address] [place], [place] [phone] Aubrey Chang MD [address] [facility] [place] [address] Health Maintenance Due Date Last Done Comments Bone Density Scan 1955 CT Colonography 1955 Colonoscopy 1955 FIT 1955 FOBT 1955 Hepatitis C Screening 1955 Lipid Panel 1955 Medicare Annual Wellness (AWV) 1955 Sigmoidoscopy 1955 BMI Intervention 08/20/1959 Diabetes: Foot Exam 08/20/1963 Diabetes: Retinopathy Screening 08/20/1963 Hepatitis B Screening 08/20/1971 DTaP/Tdap/Td Vaccines (1 - Tdap) 1972 Pneumococcal Vaccine: 50+ Years (1 of 2 - PCV) 1972 Mammogram 1993 Zoster Vaccines (1 of 2) 08/20/2003 Colorectal Cancer Screening 02/04/2022 FIT-DNA (Cologuard) 02/04/2022 02/04/2019, 8 Diabetes: Hemoglobin A1C 08/29/2022 023, 03/01/2022, 10/26/2021, Additional history exists COVID-19 Vaccine ( season) 2023 01/05/2022, 01/07/2021, 06/11/2020, Additional history exists Depression Risk Screening 02/20/2024 Fall Risk Screening 02/20/2024 SDOH Screening 02/20/2024 Influenza Vaccine (#1) 2024 , 01/07/2020, 12/24/2017 Diabetes: Urine Protein Screening 09/17/2025 09/17/2024 HIB Vaccines Aged Out No longer eligi ble based on patient's age to complete this topic HPV Vaccines Aged Out No longer eligi ble based on patient's age to complete this topic Hepatitis A Vaccines Aged Out No long er eligible based on patient's age to complete this topic Hepatitis B Vaccines Aged Out No long er eligible based on patient's age to complete this topic IPV Vaccines Aged Out No longer eligi ble based on patient's age to complete this topic Meningococcal B Vaccine Aged Out No l onger eligible based on patient's age to complete this topic Meningococcal Vaccine Aged Out No rosalva mansi eligible based on patient's age to complete this topic Rotavirus Vaccines Aged Out No longer eligible based on patient's age to complete this topic Procedures Procedure Name Priority Date/Time Associated Diagnosis Comments CARDIOLOGY SCANNED RESULT 09/18/2024 ECHOCARDIOGRAM TRANSESOPHAGEAL 09/17/2024 2:47 PM EDT CARDIOLOGY SCANNED RESULT 09/17/2024 CL CATH PROCEDURE 09/16/2024 12: 27 PM EDT TRANSTHORACIC ECHO (TTE) COMPLETE W CONTRAST 09/16/2024 10:14 AM EDT CARDIOLOGY SCANNED RESULT 09/16/2024 from Last 3 Months Results * Cardiology Scanned Result (09/18/2024) Anatomical Region Laterality Modality Other Narrative 09/18/2024 Ordered by an unspecified provider. us Provider Not In System CV STRESS PROCEDURES Chantale l Result * Echocardiogram transesophageal (09/17/2024 2:47 PM EDT) Anatomical Region Laterality Modality Ultrasound 09/17/2024 2:47 PM EDT us Abisai Booth MD CV ECHO PROCEDURES Final Result * Cardiology Scanned Result (09/17/2024) Anatomical Region Laterality Modality Other Narrative 09/17/2024 Ordered by an unspecified provider. us Provider Not In System CV STRESS PROCEDURES Chantale l Result * CL Cath Procedure (09/16/2024 12:27 PM EDT) Anatomical Region Laterality Modality Other 09/16/2024 12:2 7 PM EDT us Abisai Booth MD CV CARDIAC CATH PROCEDURES Chantale l Result * TRANSTHORACIC ECHO (TTE) COMPLETE W CONTRAST (09/16/2024 10:14 AM EDT) Anatomical Region Laterality Modality Ultrasound 09/16/2024 10:1 4 AM EDT Jonny Zamora MD CV ECHO PROCEDURES Fi nal Result * Cardiology Scanned Result (09/16/2024) Anatomical Region Laterality Modality Other Narrative 09/16/2024 Ordered by an unspecified provider. Provider Not In System CV STRESS PROCEDURES Chantale l Result from Last 3 Months Insurance MEDICARE Care Teams Draw Frame Operator Relationship Specialty Start Date End Date Cassia Blanco Dr. PCP - General 09/08/24
--- OUTSIDE RECORDS SUMMARY | 2024-09-29 10:48 | XMS_ITS | Encounter Summary ---
Author Organization [facility] Address [address] [place] [address] Care Team Providers Care Optical Glass Silverer Name Role Phone Maegan Bermeo MD Primary Care Provider [phone] Encounter Details Date Type Department Care Team [...] drink first t ken in the morning (EYE-RIDING DOUBLE) to steady your nerves or to get [...] documented as of this encounter Care Teams Optical Glass Silverer Relationship Specialty Start Date End Date Maegan Bermeo MD [address] [place] [phone] PCP - General Family Medicine 09/15/21 documented as of this encounter
--- OUTSIDE RECORDS SUMMARY | 2024-09-29 10:48 | XMS_ITS | Encounter Summary ---
Author Organization [facility] Address [address] [place] [address] Care Team Providers Care Food Operations Manager Name Role Phone Cassia Blanco Dr Primary Care Provider Unavailabl e Reason for Referral * Consultation (Routine) - Pending Review Specialty Diagnoses / Procedures Referred By Contac t Referred To Contact Diagnoses Obstructive sleep apnea Procedures Polysomnography Abisai Booth MD [address] [address] Phone: tel: fax: Referral ID Status Reason Start Date Expiration Date V isits Requested Visits Authorized [id number] Pending Review 09/19/2024 10/19/2025 1 1 Encounter Details Date Type Department Care Team ([facility] Contact Info) Description 09/19/2024 [facility] [address] [address] Thomas Hoffmann MD [address] [place] [address] Pulmonary hypertension, not otherwise specified (Primary Dx); Obstructive sleep apnea Social History Tobacco Use Types Packs/Day Years [...] Visit [facility] - Cardiovascular Medicine [address] [place] [address] Abisai Booth MD [address] [place] [address] [address] [place] [address] 10/07/2024 2:00 PM EDT Procedure Visit [facility] - Pulmonology [address] [address] 10/07/2024 2:40 PM EDT Procedure Visit [facility] Pulmonology [address] [address] 10/07/2024 3:00 PM EDT Office Visit [facility] - Pulmonology [address] [facility] 6[address] [place] [address] Aubrey Chang MD [address] [place] [address], [address] [place] [address] Scheduled Orders Name Type Priority Associated Diagnoses Orde r Schedule Polysomnography [facility] Routine Obstructive sleep apnea Expected: 09/19/2024 (Approximate), Expires: 09/19/2025 documented as of this encounter Visit Diagnoses Diagnosis Pulmonary hypertension, not otherwise specified- Primary Obstructive sleep apnea documented in this encounter Care Teams Food Operations Manager Relationship Specialty Start Date End Date Cassia Blanco Dr. PCP - General 09/08/24 documented as of this encounter
--- OUTSIDE RECORDS SUMMARY | 2024-09-29 10:48 | XMS_ITS | Encounter Summary ---
Author Organization [facility] Address [address] [place] [address] Care Team Providers Care Scanning Clerk Name Role Phone Cassia Blanco Prim Primary Care Provider Unavailabl e Encounter Details Date Type Department Care Team (Late st Contact Info) Description 09/22/2024 Telephone [facility] [address] [facility]rd [place] [address] Phy, Unknown Social History Tobacco Use Types Packs/Day Years Used Date Smoking Tobacco: Never Assessed Comments Unknown Sex and Gender Information Value Date Recorded Sex Assigned at Not on file Legal Sex Female 10:15 AM EDT Gender Identity Not on file Sexual Orientation Not on file documented as of this encounter Miscellaneous Notes * Telephone Encounter - Monique Olsen MA - 09/22/2024 11:58 AM EDT I have already spoken with Daughter and got her scheduled. * Telephone Encounter - Yoly Queen - 09/22/2024 10:20 AM EDT Patient daughter called in the patient needs to be seen for [facility] follow up within 2 to 4 weeks please call patient thanks documented in this encounter Plan of Treatment Upcoming Encounters Date Type Department Care Team (Late st Contact Info) Description 10/06/2024 2:00 PM EDT [facility] [address] [place], [place] [id number] Abisai Booth MD [address] [facility] 310 [place] [address] 10/07/2024 2:00 PM EDT Procedure Visit [facility] - Pulmonology [address] [facility] 310 [place] [address] 10/07/2024 2:40 PM EDT Procedure Visit [facility] Pulmonology [address] [address] 10/07/2024 3:00 PM EDT Office Visit [facility] - Pulmonology [address] [place] [address] [address] [place] [address] Aubrey Chang MD [address] [place] [address], [address] [place] [address] documented as of this encounter Visit Diagnoses Not on filedocumented in this encounter Care Teams Scanning Clerk Relationship Specialty Start Date End Date Cassia Blanco Dr. PCP - General 09/08/24 documented as of this encounter
--- OUTSIDE RECORDS SUMMARY | 2024-09-29 10:48 | XMS_ITS | Encounter Summary ---
Author Organization [facility] Address [address] [place] [address] Care Team Providers Care Collector Of Internal Revenue Name Role Phone Cassia Blanco Dr Primary Care Provider Unavailabl e Reason for Visit * Reason Onset Date Comments Hospital f/u Appt Request 09/22/2024 Encounter Details Date Type Department Care Team (Late st Contact Info) Description 09/22/2024 Telephone [facility] [address] [place] [address] Olga Lidia Dahl CRTT Hospital f/u Appt Request Social History Tobacco Use Types Packs/Day Years Used Date Smoking Tobacco: Never Assessed Comments Unknown Sex and Gender Information Value Date Recorded Sex Assigned at Not on file Legal Sex Female 10:15 AM EDT Gender Identity Not on file Sexual Orientation Not on file documented as of this encounter Miscellaneous Notes * Telephone Encounter - Monique Olsen MA - 09/22/2024 11:38 AM EDT Patient called back and requested the th due to them coming down for another appointment. Got herscheduled to see Dr. Chang with testing. Mailed patient letter with appointments,time and location. * Telephone Encounter - Monique Olsen MA - 09/22/2024 11:23 AM EDT Called and LVM. * Telephone Encounter - Olga Lidia Dahl CRTT - 09/22/2024 10:30 AM EDT Please see information below and schedule patient for a hospital f/u Physician requesting appointment: Dr. [facility] appointment requested for: Dr. Barnett Diagnosis: PH Date/time frame appointment requested for: 2 Weeks Please confirm when appointment is scheduled documented in this encounter Plan of Treatment Upcoming Encounters Date Type Department Care Team (Late st Contact Info) Description 10/06/2024 2:00 PM EDT Office Visit [facility] - Cardiovascular Medicine [address] [facility] 180 [place] [address] Abisai Booth MD [address] [place] [phone] 10/07/2024 2:00 PM EDT Procedure Visit [facility] Pulmonology [address] [address] 10/07/2024 2:40 PM EDT Procedure Visit [facility] [address] [address] 10/07/2024 3:00 PM EDT Office Visit [facility] - Pulmon[facility] [address] [facility] 6[address] [place] [address] Aubrey Chang MD [address] [place] [address], [address] [place] [phone] documented as of this encounter Visit Diagnoses Not on filedocumented in this encounter Care Teams Collector Of Internal Revenue Relationship Specialty Start Date End Date Cassia Blanco Dr. PCP - General 09/08/24 documented as of this encounter
--- OUTSIDE RECORDS SUMMARY | 2024-09-29 10:49 | XMS_ITS | Encounter Summary ---
Author Organization [facility] Address [address] [place] [address] Care Team Providers Care Computer Hardware Engineer Name Role Phone Maegan Bermeo MD Primary Care Provider [phone] Encounter Details Date Type Department Care Team (Late st Contact Info) Description 07/10/2024 Orders Only External Location [address] [place] [phone] Provider, External Social History Tobacco Use Types [...] drink first t ken in the morning (EYE-CHILDREN'S TUTOR NURSERY) to steady your nerves or to get [...] Name Priority Date/Time Associated Diagnosis Comments MR MIR OUTSIDE IMAGES 07/10/2024 11:28 AM EDT documented in this encounter Results * MR [place] OUTSIDE IMAGES (07/10/2024 11:28 AM EDT) Anatomical [...] documented as of this encounter Care Teams Computer Hardware Engineer Relationship Specialty Start Date End Date Maegan Bermeo MD [address] [place] [address] PCP - General Family Medicine 09/15/21 documented as of this encounter
--- OUTSIDE RECORDS SUMMARY | 2024-09-29 10:49 | XMS_ITS | Clinical Summary ---
Author Organization [facility] Address [address] [address] Care Team Providers Care Behavior Clinician Name Role Phone Unavailable Primary Care Provider Unavailabl e Social History Tobacco Use Types Packs/Day Years Used Date Smoking Tobacco: Never Assessed Comments Unknown Sex and Gender Information Value Date Recorded Sex Assigned at Not on file Legal Sex Female 10:36 PM EDT Gender Identity Not on file Sexual Orientation Not on file Plan of Treatment Health Maintenance Due Date Last Done Comments Breast Cancer Screening 1955 CT Colonography 1955 Colonoscopy 1955 Colorectal Cancer Screening 1955 FIT-DNA 1955 FIT 1955 FOBT 1955 Hepatitis C Screening 1955 Sigmoidoscopy 1955 Tdap/Td Vaccine >11 yo (1 - Tdap) 1972 Shingles (Shingrix) (1 of 2) 08/20/2003 Osteoporosis Screening 2018 Annual SDOH Screening 02/20/2024 Influenza Vaccine (#1) 2024 12/24/2017 Pneumococcal Vaccines >50 yo Completed 09/19/2024 Haemophilus Influenzae Type B (Hib) Vaccine Aged Out No longer eligible b ased on patient's age to complete this topic Hepatitis A (HepA) Vaccine Aged Out N o longer eligible based on patient's age to complete this topic Hepatitis B (HepB) Vaccine Aged Out N o longer eligible based on patient's age to complete this topic Meningococcal ACWY Aged Out No longer eligible based on patient's age to complete this topic Polio (IPV) Aged Out No longer eligi ble based on patient's age to complete this topic Rotavirus (RV) Vaccine Aged Out No lo nger eligible based on patient's age to complete this topic
--- OUTSIDE RECORDS SUMMARY | 2024-09-29 10:49 | XMS_ITS | Encounter Summary ---
Author Organization Healthcare Address [address] [place] [address] Care Team Providers Care Management Expert Name Role Phone Maegan Bermeo MD Primary Care Provider [phone] Encounter Details Date Type Department Care Team (Late st Contact Info) Description 07/08/2024 Orders Only External Location [address] [place] [id number] Provider, External Social History Tobacco Use Types [...] drink first t ken in the morning (EYE-OUTBOUND SALES CONSULTANT) to steady your nerves or to [...] as of this encounter Care Teams Management Expert Relationship Specialty Start Date End Date Maegan Bermeo MD [address] [place] [address] PCP - General Family Medicine 09/15/21 documented as of this encounter
--- OUTSIDE RECORDS SUMMARY | 2024-09-29 10:49 | XMS_ITS | Encounter Summary ---
Author Organization [facility] Address [address] [place] [address] Care Team Providers Care Set Up Mechanic Coating Machines Name Role Phone Jan Castelan MD Primary Care Provider [phone] Benjie Quezada MD Primary Care Provider Tamika Loomis APRN Primary Care Provider [phone] Maegan Bermeo MD Primary Care Provider [phone] Audra Wahl BALANCER Unavailable Unavailab Jessa Jimenez BALANCER Unavailable Unavailable Reason for Visit * Reason Comments Med Refill Encounter Details Date Type Department Care Team (Late st Contact Info) Description 12/28/2020 Refill Family and Community Medicine [address] [place] [address] Jan Castelan MD [address] [place] [address] Social History Tobacco Use Types [...] asymptomatic, not immunocompromised. Team aware. EVS notified. [facility] has verified patient has a COVID-19 positive result. A chart review has been completed, EPI PUI has been completed and sent to appropriate Health Dept. [facility] Hospital Receptionist: Nimco Demi 10/26/2021 10/26/2021 022 10:27 AM EDT COVID 19 (Confirmed) 11/11/2021 11/11/2021 022 5:23 AM EDT COVID-19 Rule-Out 05/16/2022 05/16/2022 05/16/2022 11:05 PM EDT documented as of this encounter Care Teams Set Up Mechanic Coating Machines Relationship Specialty Start Date End Date Jan Castelan MD [address] [place] [address] PCP - General 07/02/20 08/07/21 Benjie Quezada MD [address] [facility] [address] [place] [address] PCP - General Family Medicine 08/08/21 08/30/21 Tamika Loomis APRN [address] [facility] [address] [place] [address] PCP - General Family Medicine 08/31/21 09/14/21 Maegan Bermeo MD [address] [place] [address] PCP - General Family Medicine 09/15/21 Audra Wahl LPN [employer] [place] [address] TCM Nurse 09/27/21 10/27/21 Jessa Park LPN [employer] [address] Registered Nurse 05/26/22 05/26/22 documented as of this encounter
--- OUTSIDE RECORDS SUMMARY | 2024-09-29 10:49 | XMS_ITS | Encounter Summary ---
Author Organization Healthcare Address [address] [place] [address] Care Team Providers Care Career Agent Name Role Phone Maegan Bermeo MD Primary Care Provider [phone] Encounter Details Date Type Department Care Team (Late st Contact Info) Description 07/03/2024 Orders Only External Location [address] [place] [address] Provider, External Social History Tobacco Use Types [...] drink first t ken in the morning (EYE-EXCELSIOR MACHINE OPERATOR) to steady your nerves or [...] documented as of this encounter Care Teams Career Agent Relationship Specialty Start Date End Date Maegan Bermeo MD [address] [place] [address] PCP - General Family Medicine 09/15/21 documented as of this encounter
--- OUTSIDE RECORDS SUMMARY | 2024-09-29 10:49 | XMS_ITS | Encounter Summary ---
Author Organization Healthcare Address [address] [place] [address] Care Team Providers Care Computer Programmer Analyst Name Role Phone Jan Castelan MD Primary Care Provider [phone] Benjie Quezada MD Primary Care Provider Tamika Loomis APRN Primary Care Provider [phone] Maegan Bermeo MD Primary Care Provider [phone] Audra Wahl CORPORATE SCHEDULER Unavailable Unavailab Jessa Jimenez CORPORATE SCHEDULER Unavailable Unavailable Reason for Visit * Reason Comments Med Refill Encounter Details Date Type Department Care Team (Late st Contact Info) Description 02/22/2021 Refill Family and Community Medicine [address] [place] [address] Jan Castelan MD [address] [place] [address] Uncontrolled type 2 diabetes mellitus with hyperglycemia ([facility]) Social History Tobacco Use Types Packs/Day [...] and sent to appropriate Health Dept. IPAC Lab Aid: Nimco Simms 10/26/2021 10/26/2021 022 10:27 AM EDT COVID 19 (Confirmed) 11/11/2021 11/11/2021 022 5:23 AM EDT COVID-19 Rule-Out 05/16/2022 05/16/2022 05/16/2022 11:05 PM EDT documented as of this encounter Care Teams Computer Programmer Analyst Relationship Specialty Start Date End Date Jan Castelan MD [address] [place] [address] PCP - General 07/02/20 08/07/21 Benjie Quezada MD [address] [facility] [address] [place] [address] PCP - General Family Medicine 08/08/21 08/30/21 Tamika Loomis APRN [address] [place] [address] PCP - General Family Medicine 08/31/21 09/14/21 Maegan Bermeo MD [address] [place] [address] PCP - General Family Medicine 09/15/21 Audra Wahl LPN [employer] [address] TCM Nurse 09/27/21 10/27/21 Jessa Park LPN [employer] [address] Registered Nurse 05/26/22 05/26/22 documented as of this encounter
--- OUTSIDE RECORDS SUMMARY | 2024-09-29 10:49 | XMS_ITS | Encounter Summary ---
Author Organization Healthcare Address [address] [place] [address] Care Team Providers Care Orthopedic Nurse Practitioner Name Role Phone Tyler Castelan MD Primary Care Provider [phone] Benjie Quezada MD Primary Care Provider Tamika Loomis APRN Primary Care Provider [phone] Maegan Bermeo MD Primary Care Provider [phone] Audra Wahl MANAGER OF CORPORATE COMMUNICATIONS Unavailable Unavailab Jessa Jimenez MANAGER OF CORPORATE COMMUNICATIONS Unavailable Unavailable Encounter Details Date Type Department Care Team (Late st Contact Info) Description 06/28/2021 Outside Procedure External Location [address] [place] [phone] Tyler Castelan MD [address] [place] [address] Social History Tobacco Use Types [...] PM EDT Narrative 06/28/2021 4:35 [place] [address] Name: RICA FLANNERY Exam Date: 06/28/2021 : 1955 Age 65 Gender: F Physician: TYLER CASTELAN Facility: [facility] Facility HSV: Outpatient Exam: VENOUS DUPLEX US [...] Thank you for referring RICA FLANNERY to [facility]. Legally authenticated by KWAME HARGROVE 2021-06-28 16:23:11 Procedure Note Provider, [facility] - 06/28/2021 [facility] [address] [place] [address] Name: RICA FLANNERY Exam Date: 06/28/2021 : 1955 Age 65 Gender: F Physician: TYLER CASTELAN Facility: [facility] Facility HSV: Outpatient Exam: VENOUS DUPLEX US [...] Thank you for referring RICA FLANNERY to [facility]. Legally authenticated by KWAME HARGROVE 2021-06-28 [...] and sent to appropriate Health Dept. IPAC Audience Coordinator: Nimco Simms 10/26/2021 10/26/2021 022 10:27 AM EDT COVID 19 (Confirmed) 11/11/2021 11/11/2021 022 5:23 AM EDT COVID-19 Rule-Out 05/16/2022 05/16/2022 05/16/2022 11:05 PM EDT Assessment Noted Time A fall risk assessment has been complete d for the patient 06/28/2021 10:46 AM EDT documented as of this encounter Care Teams Orthopedic Nurse Practitioner Relationship Specialty Start Date End Date Tyler Castelan MD [address] [place] [address] PCP - General 07/02/20 08/07/21 Benjie Quezada MD [address] [facility] [address] [place] [address] PCP - General Family Medicine 08/08/21 08/30/21 Tamika Loomis, [facility] [address] [place] [address] PCP - General Family Medicine 08/31/21 09/14/21 Maegan Bermeo MD [address] [place] [address] PCP - General Family Medicine 09/15/21 Audra Wahl LPN [employer] [place] [address] TCM Nurse 09/27/21 10/27/21 Jessa Park LPN VAL[employer]ED [place] [address] Registered Nurse 05/26/22 05/26/22 documented as of this encounter
--- OUTSIDE RECORDS SUMMARY | 2024-09-29 10:49 | XMS_ITS | Encounter Summary ---
Author Organization Healthcare Address [address] [place] [address] Care Team Providers Care Green Chain Marker Name Role Phone Maegan Bermeo MD Primary Care Provider [phone] Encounter Details Date Type Department Care Team (Late st Contact Info) Description 03/11/2024 Orders Only External Location [address] [place] [address] Provider, External Social History Tobacco Use Types [...] drink first t ken in the morning (EYE-INSULATION AND FLOORING ASSEMBLER) to steady your nerves or to get [...] documented as of this encounter Care Teams Green Chain Marker Relationship Specialty Start Date End Date Maegan Bermeo MD [address] [place] [address] PCP - General Family Medicine 09/15/21 documented as of this encounter
--- OUTSIDE RECORDS SUMMARY | 2024-09-29 10:49 | XMS_ITS | Encounter Summary ---
Author Organization [facility] Address [address] [place] [address] Care Team Providers Care Adjunct Sociology Professor Name Role Phone Maegan Bermeo MD Primary Care Provider [phone] Encounter Details Date Type Department Care Team [...] drink first t ken in the morning (EYE-TELEVISION STATION MANAGER) to steady your nerves or to [...] documented as of this encounter Care Teams Adjunct Sociology Professor Relationship Specialty Start Date End Date Maegan Bermeo MD [address] [place] [address] PCP - General Family Medicine 09/15/21 documented as of this encounter
--- OUTSIDE RECORDS SUMMARY | 2024-09-29 10:49 | XMS_ITS | Clinical Summary ---
Author Organization [facility] Address [address] [place] [address] Care Team Providers Care Track Inspector Name Role Phone Maegan Bermeo MD Primary Care Provider [phone] Allergies Active Allergy Reactions Criticality Noted Date [...] 6 HOURS NEEDED FOR COUGH 5 Active Active Problems Problem Noted Date Diagnosed [...] is elevated above patient's baseline of around 4313-0781 -most recent echo obtained in October 2021 [...] but pain at time of arrival to [facility] PLAN: -pain control initially with p.r.n. [...] on 12/01 Acute respiratory failure with hypoxia 09/07/202 2 Overview (05/17/2022): -pt noted to be hypoxic [...] Encounters Date Type Department Care Team Description 09/15/2024 10:40 AM EDT Office Visit [facility] [place] [address] [place] [address] Raimundo Hatch, DPM Ulcer of toe of left foot, with fat layer exposed (CMS/HCC) (Primary Dx); Diabetic neuropathy with neurologic complication (CMS/HCC); Corns and callosities; Nail dystrophy 09/15/2024 Travel 08/18/2024 9:20 AM EDT Office Visit [facility] [address] [place] [address] Raimundo Hatch, DPM Hammer toe, acquired (Primary Dx) 08/18/2024 Travel 08/11/2024 8:20 AM EDT Office Visit [facility] [place] [address] [place] [address] Raimundo Hatch, DPM Ulcer of toe of left foot, with fat layer exposed (CMS/HCC) (Primary Dx); Diabetic neuropathy with neurologic complication (CMS/HCC); Hammer toe, acquired 08/11/2024 Travel 07/30/2024 Telephone [facility] [address] [place] [address] Raimundo Hatch, DPM 07/10/2024 Orders Only External Location [address] [place] [address] Provider, External 07/08/2024 Orders Only External Location [address] [place] [phone] Provider, External 07/03/2024 Orders Only External Location [address] [place] [address] Provider, External from Last 3 Months Immunizations [...] drink first t ken in the morning (EYE-PEACE OFFICER) to steady your nerves or to get [...] F) 09/15/2024 10:25 AM EDT Respiratory Rate 19 06/07/2022 10:55 AM EDT Oxygen Saturation 95% 09/15/2024 10:25 AM EDT Inhaled Oxygen Concentration - - Weight 104 kg (229 lb 4.5 oz) 09/15/2024 10:25 A M EDT Height 165.1 cm (5' 5 ) 09/15/2024 10:25 AM EDT Body Mass Index 38.15 09/15/2024 10:25 AM EDT Plan of Treatment Health Maintenance [...] Additional history exists [facility]-Depression Screening 06/08/2023 06/07/2022 [id number] Vaccine ( season) 2023 01/05/2022, 01/07/2021, 06/11/2020, Additional history exists [facility]-Influenza Vaccine (#1) 10/20/202401/07, 01/07/2021, 01/07/2020, Additional history exists [facility]-Hepatitis C Screening Completed 09/24/2021 [facility]-Obesity Intervention Completed 025, 08/18/2024, 08/11/2024, Additional history exists HPV Vaccines Aged Out [...] Procedure Name Priority Date/Time Associated Diagnosis Comments NM DEBRIDEMENT, SKIN, SUB-Q TISSUE,=<20 SQ CM Routine [...] Recently Relevant to Health Maintenance Results * NM DEBRIDEMENT, SKIN, SUB-Q TISSUE,=<20 SQ CM (08/11/2024 [...] provider verified the correct patient, procedure, equipment, patient support assistant, and site/side marked as required. Debridement Details [...] Adults <6.0% Children and Adolescents <7.5% Source: [employer]. Standards of medical care in diabetes,2017. Diabetes Care.2017:40 (suppl 1):S1-S135. HbA1c assay performed by an ion-exchange chromatography method that is certified traceable to the DCCT. us Maegan Bermeo MD LAB BLOOD ORDERABLES Final Re sult [facility] [address] [place] [address] * Hepatitis C Antibody - ED (09/24/2021 7:52 AM EDT) Hepatitis C Antibody Negative Negative 09/24/2021 9:51 AM EDT [facility] Blood Venous blood specimen / Unknown Venipuncture / Unknown 09/24/2021 7:52 AM EDT 09/24/2021 8:10 AM EDT us Farida Sharif MD LAB BLOOD ORDERABLES Final Res ult [facility] [address] [place] [address] * MAMMOGRAPHY EXTERNAL RESULTS (01/20/2019) Anatomical Region [...] Recently Relevant to Health Maintenance [place] [address] [facility] Advance Directives * DNR/DNI (Latest Code [...] Patient has decision-making capacity? Yes Care Teams Track Inspector Relationship Specialty Start Date End Date Maegan Bermeo MD [address] [place] [address] PCP - General Family Medicine 09/15/21
== END 2024-09-26 23:59 | disposition home or self-care (01) ==
LOC: LAB.DROPOF 09-29 10:39
PROVIDERS: PCP Internal Medicine; Visit Provider Internal Medicine
DX: E11.69 Type 2 diabetes mellitus with other specified complication (principal); E66.9 Obesity, unspecified; D50.9 Iron deficiency anemia, unspecified
CPT/HCPCS: 82728; 83036; 83540; 83550

== ENCOUNTER 2024-10-02 11:15 | Outpatient (CLI) | payer MEDICARE, BC, SELFPAY ==
--- OUTSIDE RECORDS SUMMARY | 2024-08-11 08:20 | XMS_ITS | Encounter Summary ---
Author Organization [facility] Address [address] [place] [address] Care Team Providers Care Web Production Artist Name Role Phone Maegan Bermeo MD Primary Care Provider [phone] Reason for Referral * Other Medical (Routine) - Pending Review Specialty Diagnoses / Procedures Referred By Contac t Referred To Contact Diagnoses Ulcer of toe of left foot, with fat layer exposed (CMS/HCC) Procedures Debridement Raimundo Hatch DPM [address] [address] Phone: tel: fax: Referral ID Status Reason Start Date Expiration Date V isits Requested Visits Authorized [id number] Pending Review 08/11/2024 02/10/2026 1 1 * Other Medical (Routine) - Pending Review Specialty Diagnoses / Procedures Referred By Contac t Referred To Contact Diagnoses Ulcer of toe of left foot, with fat layer exposed (CMS/HCC) Procedures Debridement Raimundo Hatch DPM [address] [facility] [address] [place] [address] Phone: tel: fax: Referral ID Status Reason Start Date Expiration Date V isits Requested Visits Authorized [id number] Pending Review 08/11/2024 02/10/2026 1 1 Reason [...] [address] [place] [address] [place] [address] Phone: tel: fax: Referral ID Status Reason Start Date Expiration Date V isits Requested Visits Authorized [id number] Closed Specialty Services Required 07/26/2024 01/25/2026 1 1 Encounter Details Date Type Department Care Team (Latest Contact Info) Description 08/11/2024 8:20 AM EDT Office Visit [facility] [address] 5th Floor [address] [place] [address] Raimundo Hatch, DESTINY [address] [facility] [address] [place] [address] Ulcer of toe of left foot, with fat layer exposed ([facility]/HCC) (Primary Dx); Diabetic neuropathy with neurologic complication ([facility]/HCC); Hammer toe, acquired Social History Tobacco Use [...] drink first t ken in the morning (EYE-TECHNICAL SUPPORT MANAGER) to steady your nerves or to get [...] Stoner RN - 08/11/2024 8:20 AM EDT [facility] Physician Orders/Patient Instructions Should you notice [...] note were not included. Left 3rd toe- [facility] Previous provider ordered x-rays/CT scan at [facility], suspicious for osteomyelitis. * Progress Notes - Raimundo Hatch DPM - 08/11/2024 8:20 AM EDTAssociated Order(s): Debridement Post-Procedure Diagnose(s): Ulcer of toe of left foot, with fat layer exposed ([facility]) Subjective Rica Flannery is a 68 y.o. [...] has been seeing a physician in the [facility]. She has had previous MRI and arterial [...] provider verified the correct patient, procedure, equipment, software support technician, and site/side marked as required. Debridement Details [...] amputation in the event of acute worsening. [employer] direct dictation software was utilized in part [...] documented in this encounter Plan of Treatment Scheduled Orders Name Type Priority Associated Diagnoses Orde r Schedule Debridement Procedures Routine Ulcer of toe of left foot, with fat layer exposed (CMS/HCC) 1 Occurrences starting 08/11/2024 until 10/11/2024 documented as of this encounter Procedures Procedure Name Priority Date/Time Associated Diagnosis Comments UT DEBRIDEMENT, SKIN, SUB-Q TISSUE,=<20 SQ CM Routine 08/11/2024 8:20 AM EDT Ulcer of toe of left foot, with fat layer exposed ([facility]) documented in this encounter Results * UT DEBRIDEMENT, SKIN, SUB-Q TISSUE,=<20 SQ CM (08/11/2024 [...] provider verified the correct patient, procedure, equipment, software support technician, and site/side marked as required. Debridement Details [...] of left foot, with fat layer exposed ([facility])- Primary Diabetic neuropathy with neurologic complication ([facility]) Type II or unspecified type diabetes mellitus with neurological manifestations, not stated as uncontrolled Hammer toe, acquired Other hammer toe (acquired) documented in this encounter Administered Medications Inactive Administered Medications - up to 3 most recent administrations Medication Order MAR Action Action Date Dose Rate Site mupirocin (Bactroban) 2 % ointment 1 Application Topical, Daily, 1 dose, First dose on 08/11/24 at 1000, RoutineIndications:Diabetic neuropathy with neurologic complication [...] documented as of this encounter Care Teams Web Production Artist Relationship Specialty Start Date End Date Maegan Bermeo MD [address] [place] [address] PCP - General Family Medicine 09/15/21 documented as of this encounter
--- OUTSIDE RECORDS SUMMARY | 2024-08-18 09:20 | XMS_ITS | Encounter Summary ---
Author Organization [facility] Address [address] [place] [address] Care Team Providers Care Lab Asst Name Role Phone Maegan Bermeo MD Primary Care Provider [phone] Reason for Visit * Reason Comments Foot Ulcer Encounter Details Date Type Department Care Team (Latest Contact Info) Description 08/18/2024 9:20 AM EDT Office Visit [place] [facility] [address] 5[address] [place] [address] Raimundo Hatch, DPM [address] [place] [address] Hammmiguel toe, acquired (Primary Dx) [...] drink first t ken in the morning (EYE-ALL SOURCE ANALYST) to steady your nerves or to get [...] Stoner RN - 08/18/2024 9:20 AM EDT [facility] Physician Orders/Patient Instructions Should you notice a [...] documented as of this encounter Care Teams Lab Asst Relationship Specialty Start Date End Date Maegan Bermeo MD [address] [place] [address] PCP - General Family Medicine 09/15/21 documented as of this encounter
--- OUTSIDE RECORDS SUMMARY | 2024-09-15 10:40 | XMS_ITS | Encounter Summary ---
Author Organization [facility] Address [address] [place] [address] Care Team Providers Care Manager Medical Name Role Phone Maegan Bermeo MD Primary Care Provider [phone] Reason for Visit * Reason Comments Wound Check Encounter Details Date Type Department Care Team (Latest Contact Info) Description 09/15/2024 10:40 AM EDT Office Visit [place] [facility] [address]th Floor [address] [place] [address] Raimundo Hatch, DPM [address] [place] [address] Ulcer of toe of left [...] drink first t ken in the morning (EYE-SPACE STUDIES FACULTY MEMBER) to steady your nerves or to get [...] occasion? Never 09/15/2024 10:31 AM EDT Renetta aSleh documented as of this encounter Miscellaneous Notes * Patient Instructions - Mitali Stoner RN - 09/15/2024 10:40 AM EDT [facility] Physician Orders/Patient Instructions Should you notice [...] also requesting palliative care. She lives in [facility] in his asking if there [...] draining area. I have recommended shoe see [place] foot [facility] ankle specialist in [facility] and she is interested in routine foot [...] as of this encounter Care Teams Manager Medical Relationship Specialty Start Date End Date Maegan Bermeo MD [address] [place] [address] PCP - General Family Medicine 09/15/21 documented as of this encounter
--- OUTSIDE RECORDS SUMMARY | 2024-10-02 11:24 | XMS_ITS | Encounter Summary ---
Author Organization [facility] Address [address] [place] [address] Care Team Providers Care Assistant Professor Of Religion Name Role Phone Cassia Blanoc Prim Primary Care Provider Unavailabl e Encounter Details Date Type Department Care Team (Late st Contact Info) Description 09/22/2024 Telephone [facility] [address] [facility] [place] [address] Phy, Unknown Social History Tobacco Use Types [...] the patient needs to be seen for [facility] follow up within 2 to 4 weeks please call patient thanks documented in this encounter Plan of Treatment Upcoming Encounters Date Type Department Care Team (Late st Contact Info) Description 10/06/2024 2:00 PM EDT [facility] [address] [place], [place] [phone] Abisai Booth MD [address] [facility] [address] [place] [address] 10/07/2024 2:00 PM EDT Procedure Visit [facility] - Pulmonology [address] [facility] [address] [place] [address] 10/07/2024 2:40 PM EDT Procedure Visit [facility] - Pulmonology [address] [facility] [address] [place] [address] 10/07/2024 3:00 PM EDT Office Visit [facility] - Pulmonology [address] [facility] [address] [place] [address] Aubrey Chang MD [address] [facility] [place] [address] 11/19/2024 8:00 PM EDT Procedure Visit [facility] - Sleep Center [address] [facility] [address] [place] [address] documented as of this encounter Visit Diagnoses Not on filedocumented in this encounter Care Teams Assistant Professor Of Religion Relationship Specialty Start Date End Date Cassia Blanco Dr. PCP - General 09/08/24 documented as of this encounter
--- OUTSIDE RECORDS SUMMARY | 2024-10-02 11:24 | XMS_ITS | Encounter Summary ---
Author Organization [facility] Address [address] [place] [address] Care Team Providers Care Bed Manager Name Role Phone Cassia Blanco Dr Primary Care Provider Unavailabl e Reason for Visit * Reason Onset Date Comments Hospital Follow Up 09/22/2024 Encounter Details Date Type Department Care Team ([facility] st Contact Info) Description 09/22/2024 Telephone [facility] Administrative Services [address] [facility] [address] [place] [address] Stefanie Graves RN Hospital Follow Up Social [...] 1955 Date of Discharge: 09/19/2024 Facility Discharged: [facility] Diagnosis at time of Discharge: Severe pulmonary hypertension Cor pulmonale Severe TR Date of Call: 09/23/2024 Date of [facility] Face-to Face Visit: Call Status Call Status: Completed General Clinical How are you feeling now?: Spoke with pt.'s daughter, Marisol. Marisol reports some confusion withwhere prescriptions were sent at d/c as prescriptions were sent to both [facility]. Marisol ststes she has addressed this [...] Visit [facility] - Cardiovascular Medicine [address] [facility] [address] [place] [address] Abisai Booth MD [address] [place] [address] [address] [place] [address] 10/07/2024 2:00 PM EDT Procedure Visit [facility] - Pulmonology [address] [facility] [address] [place] [address] 10/07/2024 2:40 PM EDT Procedure Visit [facility] Pulmonology [address] [facility] [address] [place] [address] 10/07/2024 3:00 PM EDT Office Visit [facility] - Pulmonology [address] [facility] [address] [place] [address] Aubrey Chang MD [address] [place] [address], [address] [place] [address] 11/19/2024 8:00 PM EDT Procedure Visit [facility] [address] [address] documented as of this encounter Visit Diagnoses Not on filedocumented in this encounter Care Teams Bed Manager Relationship Specialty Start Date End Date Cassia Blanco Dr. PCP - General 09/08/24 documented as of this encounter
--- OUTSIDE RECORDS SUMMARY | 2024-10-02 11:24 | XMS_ITS | Encounter Summary ---
Author Organization [facility] Address [address] [place] [address] Care Team Providers Care General Farm Manager Name Role Phone Cassia Blanco Prim Primary Care Provider Unavailabl e Encounter Details Date Type Department Care Team (Late Contact Info) Description 09/29/2024 Orders Only [facility] - Pulmonology [address] [facility] [address] [place] [address] Pcp, None Social History Tobacco Use Types Packs/Day Years [...] Visit [facility] - Cardiovascular Medicine [address] [facility] [address] [place] [address] Abisai Booth MD [address] [facility] [address] [place] [address] 10/07/2024 2:00 PM EDT Procedure Visit [facility] Pulmonology [address] [address] 10/07/2024 2:40 PM EDT Procedure Visit [facility]mon[facility] [address] [address] 10/07/2024 3:00 PM EDT Office Visit [facility] Pulmonology [address] [facility] [address] [place] [address] Aubrey Chang MD [address] [facility] [place] [address] 11/19/2024 8:00 PM EDT Procedure Visit [facility] [address] [facility] [address] [place] [address] documented as of this encounter Procedures Procedure Name Priority Date/Time Associated Diagnosis Comments CT CHEST WO Routine 09/18/2024 2:56 PM EDT NM LUNG VENTILATION PERFUSION Routine 09/18/2024 2:55 PM EDT documented in this encounter Results * CT chest wo IV contrast (09/18/2024 2:56 PM EDT) Anatomical Region Laterality Modality Body, Chest Computed Tomogra phy us None Pcp IMG CT PROCEDURES Edited Result - Final * NM lung ventilation perfusion (09/18/2024 2:55 PM EDT) Anatomical Region Laterality Modality Body Nuclear Medicine us None Pcp IMG NM PROCEDURES Edited Result - Final documented in this encounter Visit Diagnoses Not on filedocumented in this encounter Care Teams General Farm Manager Relationship Specialty Start Date End Date Francis, Cassia Mcnamara Dr. PCP - General 09/08/24 documented as of this encounter
--- OUTSIDE RECORDS SUMMARY | 2024-10-02 11:24 | XMS_ITS | Clinical Summary ---
Author Organization [facility] Address [address] [place] [address] Care Team Providers Care Supervisor Frame Sample And Pattern Name Role Phone Tricia Pérez MD Primary Care Provider [phone] Allergies Active Allergy Reactions Criticality Noted Date [...] VACCINE 11/19/2024 Insurance MEDICARE A & B [facility] Care Teams Supervisor Frame Sample And Pattern Relationship Specialty Start Date End Date Tricia Pérez MD [address] [place] [address] PCP - General Family Medicine 07/20/18
--- OUTSIDE RECORDS SUMMARY | 2024-10-02 11:24 | XMS_ITS | Encounter Summary ---
Author Organization [facility] Address [address] [place] [address] Care Team Providers Care Director Alliance Marketing Name Role Phone Maegan Bermeo MD Primary Care Provider [phone] Encounter Details Date Type Department Care Team [...] drink first t ken in the morning (EYE-SUPERVISOR TREATING AND PUMPING) to steady your nerves or to get [...] containing alcohol? Never 09/15/2024 10:31 AM EDT Renetat Saleh Q2: How many drinks containing alcohol [...] documented as of this encounter Care Teams Director Alliance Marketing Relationship Specialty Start Date End Date Maegan Bermeo MD [address] [place] [address] PCP - General Family Medicine 09/15/21 documented as of this encounter
--- OUTSIDE RECORDS SUMMARY | 2024-10-02 11:24 | XMS_ITS | Encounter Summary ---
Author Organization Healthcare Address [address] [place] [address] Care Team Providers Care Steel Pan Form Placing Supervisor Name Role Phone Maegan Bermeo MD Primary Care Provider [phone] Jessa Park LPN Unavailable Unavailable Reason for Visit * Reason Comments Med Refill Encounter Details Date Type Department Care Team (Late st Contact Info) Description 11/26/2021 Refill Family and Community Medicine [address] [place] [address] Benjie Quezada MD [address] [place] [address] Social History Tobacco Use Types [...] as of this encounter Care Teams Steel Pan Form Placing Supervisor Relationship Specialty Start Date End Date Maegan Bermeo MD [address] [place] [address] PCP - General Family Medicine 09/15/21 Jessa Park LPN [employer] [place] [address] Registered Nurse 05/26/22 05/26/22 documented as of this encounter
--- OUTSIDE RECORDS SUMMARY | 2024-10-02 11:24 | XMS_ITS | Encounter Summary ---
Author Organization Healthcare Address [address] [place] [address] Care Team Providers Care Evidence Technician Name Role Phone Jan Castelan MD Primary Care Provider [phone] Benjie Quezada MD Primary Care Provider Tamika Loomis APRN Primary Care Provider [phone] Maegan Bermeo MD Primary Care Provider [phone] Audra Wahl PHYSICIAN OFFICE REP Unavailable Unavailab Jessa Jimenez PHYSICIAN OFFICE REP Unavailable Unavailable Reason for Visit * Reason Comments Med Refill Encounter Details Date Type Department Care Team (Late st Contact Info) Description 07/27/2020 Refill Family and Community Medicine [address] [place] [address] Jan Castelan MD [address] [place] [address] Social History Tobacco Use Types [...] and sent to appropriate Health Dept. IPAC Pointer Helper: Brandiedon Demi 10/26/2021 10/26/2021 022 10:27 AM EDT COVID 19 (Confirmed) 11/11/2021 11/11/2021 022 5:23 AM EDT COVID-19 Rule-Out 05/16/2022 05/16/2022 05/16/2022 11:05 PM EDT documented as of this encounter Care Teams Evidence Technician Relationship Specialty Start Date End Date Jan Castelan MD [address] [place] [id number] PCP - General 07/02/20 08/07/21 Benjie Quezada MD [address] [place] [address] PCP - General Family Medicine 08/08/21 08/30/21 Tamika Loomis APRN [address] [place] [address] PCP - General Family Medicine 08/31/21 09/14/21 Maegan Bermeo MD [address] [place] [address] PCP - General Family Medicine 09/15/21 Audra Wahl LPN [employer] [place] [address] TCM Nurse 09/27/21 10/27/21 Jessa Park LPN [employer] [place] [address] Registered Nurse 05/26/22 05/26/22 documented as of this encounter
--- OUTSIDE RECORDS SUMMARY | 2024-10-02 11:24 | XMS_ITS | Encounter Summary ---
Author Organization [facility] Address [address] [place] [address] Care Team Providers Care Floral Artist Name Role Phone Maegan Bermeo MD Primary Care Provider [phone] Audra Wahl SVP MONETIZATION Unavailable Unavailab Jessa Jimenez SVP MONETIZATION Unavailable Unavailable Reason for Visit * Reason Comments Med Refill Encounter Details Date Type Department Care Team (Late st Contact Info) Description 10/11/2021 Refill Family and Community Medicine [address] [place] [address] Maegan Bermeo MD [address] [place] [address] Avitaminosis D Social History Tobacco [...] not immunocompromised. Team aware. EVS notified. [facility] has verified patient has a COVID-19 positive result. A chart review has been completed, EPI PUI has been completed and sent to appropriate Health Dept. IPA Unit Control Worker: Nimco Simms 10/26/2021 10/26/2021 022 10:27 AM EDT COVID 19 (Confirmed) 11/11/2021 11/11/2021 022 5:23 AM EDT COVID-19 Rule-Out 05/16/2022 05/16/2022 05/16/2022 11:05 PM EDT Assessment Noted Time A fall risk assessment has been complete d for the patient 10/11/2021 11:31 AM EDT documented as of this encounter Care Teams Floral Artist Relationship Specialty Start Date End Date Maegan Bermeo MD [facility] [place] [address] PCP - General Family Medicine 09/15/21 Audra Wahl LPN [employer] [place] [address] TCM Nurse 09/27/21 10/27/21 Jessa Park LPN [employer] [place] [address] Registered Nurse 05/26/22 05/26/22 documented as of this encounter
--- OUTSIDE RECORDS SUMMARY | 2024-10-02 11:24 | XMS_ITS | Encounter Summary ---
Author Organization [facility] Address [address] [facility] [address] [place] [address] Care Team Providers Care Language Teacher Name Role Phone Cassia Blanco Dr Primary Care Provider Unavailabl e Reason for Referral * Consultation (Routine) - Authorized Specialty Diagnoses / Procedures Referred By Contac t Referred To Contact Sleep Medicine Diagnoses Obstructive sleep apnea Procedures Polysomnography Abisai Booth MD [address] [facility] [address] [place] [address] Phone: tel: fax: [facility] - Sleep Center [address] [facility] [address] [place] [address] Phone: tel: fax: Referral ID Status Reason Start Date Expiration Date V isits Requested Visits Authorized [id number] Authorized 09/19/2024 10/19/2025 1 1 Encounter Details Date Type Department Care Team (Late st Contact Info) Description 09/19/2024 Orders Only [facility] [address] [facility] [address] [place] [address] Thomas Hoffmann MD [address] [place] [address] Pulmonary hypertension, not otherwise specified [...] Cardiovascular Medicine [address] [place] [address] Abisai Booth MD [address] [facility] [address] [place] [address] 10/07/2024 2:00 PM EDT Procedure Visit [facility] - Pulmonology [address] [facility] [address] [place] [address] 10/07/2024 2:40 PM EDT Procedure Visit [facility] - Pulmonology 401 [facility] [address] [place] [address] 10/07/2024 3:00 PM EDT Office Visit [facility] - Pulmonology [address] [facility] [address] [place] [address] Aubrey Chang MD [address] [facility] [place] [address] 11/19/2024 8:00 PM EDT Procedure Visit [facility] Sleep [facility] [address] [facility] [address] [place] [address] Scheduled Orders Name Type Priority Associated Diagnoses Orde r Schedule Polysomnography Sleep Center Routine Obstructive sleep apnea Expected: 09/19/2024 (Approximate), Expires: 09/19/2025 documented as of this encounter Visit Diagnoses Diagnosis Pulmonary hypertension, not otherwise specified- Primary Obstructive sleep apnea documented in this encounter Care Teams Language Teacher Relationship Specialty Start Date End Date Cassia Blanco Dr. PCP - General 09/08/24 documented as of this encounter
--- OUTSIDE RECORDS SUMMARY | 2024-10-02 11:24 | XMS_ITS | Encounter Summary ---
Author Organization [facility] Address [address] [facility] [address] [place] [address] Care Team Providers Care Straw Hat Presser Name Role Phone Cassia Blanco Dr Primary Care Provider Unavailabl e Reason for Visit * Reason Onset Date Comments Appointment 09/30/2024 Encounter Details Date Type Department Care Team ([facility] Contact Info) Description 09/30/2024 Telephone [facility] Sleep Center [address] [facility] [address] [place] [address] Cheko Garza MD [address] [facility] [place] [address] Appointment Social History Tobacco Use Types Packs/Day Years Used Date Smoking Tobacco: Never Assessed Comments Unknown Sex and Gender Information Value Date Recorded Sex Assigned at Not on file Legal Sex Female 10:15 AM EDT Gender Identity Not on file Sexual Orientation Not on file documented as of this encounter Miscellaneous Notes * Telephone Encounter - Meaghan Garcia - 09/30/2024 10:19 AM EDT Called patient to schedule NPSG appt. Unable to reach left voice mail to return call to [phone]. documented in this encounter Plan of Treatment Upcoming Encounters Date Type Department Care Team ([facility] Contact Info) Description 10/06/2024 2:00 PM EDT Office Visit [facility] - Cardiovascular Medicine [address] [facility] [address] [place], [place] [address] Abisai Booth MD [address] [facility] [address] [place] [address] 10/07/2024 2:00 PM EDT Procedure Visit [facility] - Pulmonology [address] [facility] [address] [place] [address] 10/07/2024 2:40 PM EDT Procedure Visit [facility] Pulmon[facility] [address] [facility] [address] [place] [address] 10/07/2024 3:00 PM EDT Office Visit [facility] - Pulmonology [address] [facility] [address] [place] [address] Aubrey Chang MD 401 [facility] [place] [address] 11/19/2024 8:00 PM EDT Procedure Visit [facility] Sleep [facility] [address] [facility] [address] [place] [address] documented as of this encounter Visit Diagnoses Not on filedocumented in this encounter Care Teams Straw Hat Presser Relationship Specialty Start Date End Date Cassia Blanco Dr. PCP - General 09/08/24 documented as of this encounter
--- OUTSIDE RECORDS SUMMARY | 2024-10-02 11:25 | XMS_ITS | Clinical Summary ---
Author Organization [facility] Address [address] [address] Care Team Providers Care Building Construction Supervisor Name Role Phone Unavailable Primary Care Provider [...]
--- OUTSIDE RECORDS SUMMARY | 2024-10-02 11:25 | XMS_ITS | Encounter Summary ---
Author Organization [facility] Address [address] [facility] [address] [place] [address] Care Team Providers Care Videographer Name Role Phone Cassia Blanco Dr Primary Care Provider Unavailabl e Reason for Visit * Reason Onset Date Comments Appointment 09/30/2024 Forms/questionnaires 09/30/2024 Night tech questions Encounter Details Date Type Department Care Team ([facility] st Contact Info) Description 09/30/2024 Telephone [facility] [address] [facility] [address] [facility] [address] [place] [address] Cheko Garza MD [address] [facility] [place] [address] Appointment; Forms/questionnaires (Night tech questions) Social History Tobacco Use Types Packs/Day Years Used Date Smoking Tobacco: Never Assessed Comments Unknown Sex and Gender Information Value Date Recorded Sex Assigned at Not on file Legal Sex Female 10:15 AM EDT Gender Identity Not on file Sexual Orientation Not on file documented as of this encounter Miscellaneous Notes * Telephone Encounter - Meaghan Garcia - 09/30/2024 2:32 PM EDT Height: 5 5 Weight: 229 Does the patient require O2 at night? If so, how many liters? no Does the patient require transfer assistance from chair to bed? yes If yes will a caregiver be with them for the night? no Is the patient able to bear their full body weight? yes Does the patient have bi-lateral upper extremity strength? yes Is the patient able to follow instructions and cooperate? yes Does the patient have any of the below conditions? No If so, please specify which. Paralysis Open Wounds Amputation Stomas Spasms Unstable Spine Tubes (IV, Catheter, etc) Please make sure one finger is free of nail turkmen, acrylic, gel etc. For finger sensor at time of study. documented in this encounter Plan of Treatment Upcoming Encounters Date Type Department Care Team (Late st Contact Info) Description 10/06/2024 2:00 PM EDT Office Visit [facility] - Cardiovascular Medicine [address] [place] [address] Abisai Booth MD [address] [place] [address] [address] [place] [address] 10/07/2024 2:00 PM EDT Procedure Visit [facility] [address] [facility] [address] [place] [address] 10/07/2024 2:40 PM EDT Procedure Visit [facility] [address] [facility] [address] [place] [address] 10/07/2024 3:00 PM EDT Office Visit [facility] [address] [facility] [address] [place] [address] Aubrey Chang MD 401 [facility] [place] [address] 11/19/2024 8:00 PM EDT Procedure Visit [facility] [address] [facility] [address] [place] [address] documented as of this encounter Visit Diagnoses Not on filedocumented in this encounter Care Teams Videographer Relationship Specialty Start Date End Date Cassia Blanco Dr. PCP - General 09/08/24 documented as of this encounter
--- OUTSIDE RECORDS SUMMARY | 2024-10-02 11:25 | XMS_ITS | Encounter Summary ---
Author Organization [facility] Address [address] [place] [address] Care Team Providers Care Jet Mechanic Name Role Phone Maegan Bermeo MD Primary Care Provider [phone] Encounter Details Date Type Department Care Team [...] drink first t ken in the morning (EYE-DRAINAGE INSPECTOR) to steady your nerves or to get [...] documented as of this encounter Care Teams Jet Mechanic Relationship Specialty Start Date End Date Maegan Bermeo MD [address] [place] [address] PCP - General Family Medicine 09/15/21 documented as of this encounter
--- OUTSIDE RECORDS SUMMARY | 2024-10-02 11:25 | XMS_ITS | Clinical Summary ---
Author Organization [facility] Address [address] [facility] [address] [place] [address] Care Team Providers Care Windows Application Administrator Name Role Phone Cassia Blanco Dr Primary [...] but pain at time of arrival to [facility] PLAN: -pain control initially with p.r.n. Tylenol [...] Encounters Date Type Department Care Team Description 09/30/2024 Telephone [facility] [address] [address] Cheko Garza MD Appointment; Forms/questionnaires (Night tech questions) 09/30/2024 Telephone [facility] [address] [address] Cheko Garza MD Appointment 09/29/2024 Orders Only [facility] - Pulmonology [address] [facility] [address] [place] [address] Pcp, None 09/22/2024 Orders Only [facility] Pulmonology [address] [facility] [address] [place] [address] Dov Lopez, MESS COOK Pulmonary hypertension (Primary Dx) 09/22/2024 Telephone [facility] Pul[facility] [address] [facility] [address] [place] [address] Olga Lidia Dahl MESS COOK Hospital f/u Appt Request 09/22/2024 Telephone [facility] [address] [facility], [address]rd [place] [address] Phy, Unknown 09/22/2024 Telephone [facility] Administrative Services [address] [facility] [address] [place] [address] Stefanie Graves RN Hospital Follow Up 09/19/2024 Orders Only [facility] Cardiovascular [facility] [address] [facility] [address] [place] [address] Thomas Hoffmann MD Pulmonary hypertension, not otherwise [...] Visit [facility] [address] [facility] [address] [place] [address] Abisai Booth MD 401 [facility] 310 [place] [address] 10/07/2024 2:00 PM EDT Procedure Visit [facility] [address] [address] 10/07/2024 2:40 PM EDT Procedure Visit [facility] Pulmon[facility] [address] [facility] [address] [place] [address] 10/07/2024 3:00 PM EDT Office Visit [facility] [address] [facility] [address] [place] [address] Aubrey Chang MD [address] [facility] [place] [address] 11/19/2024 8:00 PM EDT Procedure Visit [facility] [address] [facility] [address] [place] [address] Health Maintenance Due Date Last Done Comments [...] VENTILATION PERFUSION Routine 09/18/2024 2:55 PM EDT CARDIOLOGY SCANNED RESULT 09/18/2024 ECHOCARDIOGRAM TRANSESOPHAGEAL 09/17/2024 2:47 PM EDT CARDIOLOGY SCANNED RESULT 09/17/2024 CL CATH PROCEDURE 09/16/2024 12: 27 PM EDT TRANSTHORACIC ECHO (TTE) COMPLETE W CONTRAST 09/16/2024 10:14 AM EDT CARDIOLOGY SCANNED RESULT 09/16/2024 from Last 3 Months Results * CT chest wo IV contrast (09/18/2024 2:56 PM EDT) Anatomical Region Laterality Modality Body, Chest Computed Tomogra phy us None Pcp IMG CT PROCEDURES Edited Result - Final * NM lung ventilation perfusion (09/18/2024 2:55 PM EDT) Anatomical Region Laterality Modality Body Nuclear Medicine us None Pcp IMG NM PROCEDURES Edited Result - Final * Cardiology Scanned Result (09/18/2024) Anatomical Region Laterality Modality Other Narrative 09/18/2024 Ordered by an unspecified provider. Provider Not In System CV STRESS PROCEDURES Chantale l Result * Echocardiogram transesophageal (09/17/2024 2:47 PM EDT) Anatomical Region Laterality Modality Ultrasound 09/17/2024 2:47 PM EDT Result [facility] Abisai Booth MD CV ECHO PROCEDURES Final Result * Cardiology Scanned Result (09/17/2024) Anatomical Region Laterality Modality Other Narrative 09/17/2024 Ordered by an unspecified provider. Provider Not In System CV STRESS PROCEDURES Chantale l Result * CL Cath Procedure (09/16/2024 12:27 PM EDT) Anatomical Region Laterality Modality Other 09/16/2024 12:2 7 PM EDT Result [facility] Abisai Booth MD CV CARDIAC CATH PROCEDURES [...] l Result from Last 3 Months [place] [address] MEDICARE Member Subscriber Plan / Payer (Ef fective 2018-Present) Name:Rica Flannery Member ID:[id number] Relation to Subscriber:Self Name:Rica Flannery Subscriber ID:[id number] Payer ID:[id number] Group ID:Not on file Type:Medicare Address: [place] [id number] Care Teams Windows Application Administrator Relationship Specialty Start Date End Date Cassia Blanco Dr. PCP - General 09/08/24
--- OUTSIDE RECORDS SUMMARY | 2024-10-02 11:25 | XMS_ITS | Encounter Summary ---
Author Organization Healthcare Address [address] [place] [address] Care Team Providers Care Liner Man Name Role Phone Maegan Bermeo MD Primary Care Provider [phone] Encounter Details Date Type Department Care Team (Late st Contact Info) Description 03/11/2024 Orders Only External Location [address] [place] [address] Provider, External Social History Tobacco Use Types [...] drink first t ken in the morning (EYE-HEEL SEAM RUBBER) to steady your nerves or to get [...] documented as of this encounter Care Teams Liner Man Relationship Specialty Start Date End Date Maegan Bermeo MD [address] [place] [address] PCP - General Family Medicine 09/15/21 documented as of this encounter
--- OUTSIDE RECORDS SUMMARY | 2024-10-02 11:25 | XMS_ITS | Encounter Summary ---
Author Organization [facility] Address [address] [place] [address] Care Team Providers Care Veneer Stock Grader Name Role Phone Cassia Blanco Dr Primary Care Provider Unavailabl e Reason for Visit * Reason Onset Date Comments Hospital f/u Appt Request 09/22/2024 Encounter Details Date Type Department Care Team (Late st Contact Info) Description 09/22/2024 Telephone [facility] Pulmon[facility] [address] [place], [place] [id number] Olga Lidia Dahl, SIGNAL APPRENTICE Hospital f/u Appt Request Social History Tobacco Use Types Packs/Day Years Used Date Smoking Tobacco: Never Assessed Comments Unknown Sex and Gender Information Value Date Recorded Sex Assigned at Not on file Legal Sex Female 10:15 AM EDT Gender Identity Not on file Sexual Orientation Not on file documented as of this encounter Miscellaneous Notes * Telephone Encounter - Shikha Clayton MA - 09/29/2024 2:41 PM EDT [facility] to be seen by Dr. Chang or Dr. Barnett Referring Provider: Dr. Sutton @ [facility] Office Phone: Office Fax: Diagnosis: Severe Pre-Capillary PH How was disease diagnosed? Patient presented to [facility] with shortness of air and volume overload. Reported at that time to have periodic shortness of air for several years with the last 1 year having worsened. She reported being severely limited in activity due to her symptoms. [facility] as she lives in [facility]. During this stay, patient underwent RHC revealing severe PH with predominant precapillary component. KATJA showed massively severe TR amenable to TriClip, however given her severely elevated RV pressures, she was deemed a poor candidate for TriClip. Pulm was consulted for her PH. CT chest showed no pa renchymal or ILD, VQ scan showed low probability for CTEPH, her blood gas was consistent with OHS. Will need outpatient sleep study as well. Testing: TTE: 09/16/24 VQ: 09/18/24 CT: 09/17/24 Has patient ever had a right heart cath? YES: 09/16/24 Medications relevant to dx: NA Patient will need the following tests ordered per protocol with their consult (orders entered): Complete PFT with PRE/POST bronchodilator. Six Min Walk. * Telephone Encounter - Monique Olsen MA [...] Cardiovascular Medicine [address] [place] [address] Abisai Booth MD 401 [facility] 310 [place] [address] 10/07/2024 2:00 PM EDT Procedure Visit [facility] - Pulmonology [address] [facility] 310 [place] [address] 10/07/2024 2:40 PM EDT Procedure Visit [facility] Pulmonology [address] [facility] 310 [place] [address] 10/07/2024 3:00 PM EDT Office Visit [facility] [address] [facility] [address] [place] [address] Aubrey Chang MD 401 [facility] [place] [address] 11/19/2024 8:00 PM EDT Procedure Visit [facility] Sleep Center [address] [facility] 490 [place] [address] documented as of this encounter Visit Diagnoses Not on filedocumented in this encounter Care Teams Veneer Stock Grader Relationship Specialty Start Date End Date Cassia Blanco Dr. PCP - General 09/08/24 documented as of this encounter
--- OUTSIDE RECORDS SUMMARY | 2024-10-02 11:25 | XMS_ITS | Encounter Summary ---
Author Organization [facility] Address [address] [place] [address] Care Team Providers Care Coordinator Of Rehabilitation Services Name Role Phone Jan Castelan MD Primary Care Provider [phone] Benjie Quezada MD Primary Care Provider Tamika Loomis APRN Primary Care Provider [phone] Maegan Bermeo MD Primary Care Provider [phone] Audra Wahl LEGUILLON DEBEADER Unavailable Unavailab Jessa Jimenez LEGUILLON DEBEADER Unavailable Unavailable Reason for Visit * Reason Comments Med Refill Encounter Details Date Type Department Care Team (Late st Contact Info) Description 12/28/2020 Refill Family and Community Medicine [address] [place] [address] Jan Castelan MD [address] [place] [address] Social History Tobacco Use [...] asymptomatic, not immunocompromised. Team aware. EVS notified. [facility] has verified patient has a COVID-19 positive result. A chart review has been completed, EPI PUI has been completed and sent to appropriate Health Dept. [facility] Advanced Manager: Nimco Demi 10/26/2021 10/26/2021 022 10:27 AM EDT COVID 19 (Confirmed) 11/11/2021 11/11/2021 022 5:23 AM EDT COVID-19 Rule-Out 05/16/2022 05/16/2022 05/16/2022 11:05 PM EDT documented as of this encounter Care Teams Coordinator Of Rehabilitation Services Relationship Specialty Start Date End Date Jan Castelan MD [address] [place] [address] PCP - General 07/02/20 08/07/21 Benjie Quezada MD [address] [facility] [address] [place] [address] PCP - General Family Medicine 08/08/21 08/30/21 Tamika Loomis APRN [address] [facility] [address] [place] [address] PCP - General Family Medicine 08/31/21 09/14/21 Maegan Bermeo MD [address] [place] [address] PCP - General Family Medicine 09/15/21 Audra Wahl LPN [employer] [place] [address] TCM Nurse 09/27/21 10/27/21 Jessa Park LPN [employer] [place] [address] Registered Nurse 05/26/22 05/26/22 documented as of this encounter
--- OUTSIDE RECORDS SUMMARY | 2024-10-02 11:25 | XMS_ITS | Encounter Summary ---
Author Organization [facility] Address [address] [place] [address] Care Team Providers Care Clinical Trial Manager Name Role Phone Tyler Castelan MD Primary Care Provider [phone] Benjie Quezada MD Primary Care Provider Tamika Loomis APRN Primary Care Provider [phone] Maegan Bermeo MD Primary Care Provider [phone] Audra Wahl DRILLER PORTABLE Unavailable Unavailab Jessa Jimenez DRILLER PORTABLE Unavailable Unavailable Encounter Details Date Type Department Care Team (Late st Contact Info) Description 06/28/2021 Outside Procedure External Location [address] [place] [id number] Tyler Castelan MD [address] [place] [address] Social History Tobacco Use Types [...] PM EDT Narrative 06/28/2021 4:35 [place] [address] Name: RICA FLANNERY Exam Date: 06/28/2021 : 1955 Age 65 Gender: F Physician: TYLER CASTELAN Facility: [facility] Facility HSV: Outpatient Exam: VENOUS DUPLEX [...] Thank you for referring RICA FLANNERY to Psychiatric. Legally authenticated by KWAME HARGROVE 2021-06-28 16:23:11 Procedure Note Provider, [facility] - 06/28/2021 Psychiatric [address] [place] [address] Name: RICA FLANNERY Exam Date: 06/28/2021 : 1955 Age 65 Gender: F Physician: TYLER CASTELAN Facility: [facility] Facility HSV: Outpatient Exam: VENOUS DUPLEX [...] dictated by Dr. Ruddy Dumont. Transcribed by Lusi Phillips PA-C. Dictated By: Ruddy Gibbons Transcribed By: Ruddy Dumont Transcribed On: 06/28/2021 4:23 PM Electronically signed by: Ruddy Gibbons 06/28/2021 Thank you for referring RICA FLANNERY to Psychiatric. Legally authenticated by KWAME HARGROVE 2021-06-28 16:23:11 [...] and sent to appropriate Health Dept. IPAC Records Custodian: Nimco Simms 10/26/2021 10/26/2021 022 10:27 AM EDT COVID 19 (Confirmed) 11/11/2021 11/11/2021 022 5:23 AM EDT COVID-19 Rule-Out 05/16/2022 05/16/2022 05/16/2022 11:05 PM EDT Assessment Noted Time A fall risk assessment has been complete d for the patient 06/28/2021 10:46 AM EDT documented as of this encounter Care Teams Clinical Trial Manager Relationship Specialty Start Date End Date Tyler Castelan MD [address] [place] [address] PCP - General 07/02/20 08/07/21 Benjie Quezada MD [address] [facility] [address] [place] [address] PCP - General Family Medicine 08/08/21 08/30/21 Tamika Loomis, AEROSPACE MANAGER [address] [place] [address] PCP - General Family Medicine 08/31/21 09/14/21 Maegan Bermeo MD [address] [place] [address] PCP - General Family Medicine 09/15/21 Audra Wahl LPN [employer] [place] [address] TCM Nurse 09/27/21 10/27/21 Jessa Park LPN [employer] [place] [address] Registered Nurse 05/26/22 05/26/22 documented as of this encounter
--- OUTSIDE RECORDS SUMMARY | 2024-10-02 11:25 | XMS_ITS | Encounter Summary ---
Author Organization [facility] Address [address] [place] [address] Care Team Providers Care Dispatcher Radio Name Role Phone Cassia Blanco Dr Primary Care Provider Unavailabl e Reason for Referral * Consultation (Routine) - Authorized Specialty Diagnoses / Procedures Referred By Contac t Referred To Contact Pulmonology Diagnoses Pulmonary hypertension Procedures Six Minute Walk Test Aubrey Chang MD [address] [facility] [place] [address] Phone: tel: fax: [facility] - Pulmonology [address] [place] [address] Phone: tel: fax: Referral ID Status Reason Start Date Expiration Date Visits Requested Visits Authorized [id number] Authorized Specialty Services Required 09/22/2024 10/22/2025 1 1 * Consultation (Routine) - Authorized Specialty Diagnoses / Procedures Referred By Contac t Referred To Contact Pulmonology Diagnoses Pulmonary hypertension Procedures Pulmonary function test Aubrey Chang MD [address] [facility] [place] [address] Phone: tel: fax: [facility] - Pulmonology [address] [address] Phone: tel: fax: Referral ID Status Reason Start Date Expiration Date Visits Requested Visits Authorized [id number] Authorized Specialty Services Required 09/22/2024 10/22/2025 1 1 Encounter Details Date Type Department Care Team (Late st Contact Info) Description 09/22/2024 Orders Only [facility] - Pulmonology [address] [facility] [address] [place] [address] Dov Lopez, LAST SORTER Pulmonary hypertension (Primary Dx) Social History Tobacco [...] Visit [facility] - Cardiovascular Medicine [address] [facility] [address] [place] [address] Abisai Booth MD [address] [place] [address] [address] [place] [address] 10/07/2024 2:00 PM EDT Procedure Visit [facility] - Pulmonology [address] [facility] [address] [place] [address] 10/07/2024 2:40 PM EDT Procedure Visit [facility] - Pulmonology [address] [facility] [address] [place] [address] 10/07/2024 3:00 PM EDT Office Visit [facility] - Pulmonology [address] [facility] [address] [place] [address] Aubrey Chang MD [address] [facility] [place] [address] 11/19/2024 8:00 PM EDT Procedure Visit [facility] - Sleep Center [address] [facility] [address] [place] [address] Scheduled Orders Name Type Priority Associated Diagnoses Orde r Schedule Pulmonary function test PFT Routine Pulmonary hypertension Expected: 09/22/2024, Expires: 09/22/2025 Six Minute Walk Test PFT Routine Pulmonary hypertension Expected: 09/22/2024, Expires: 09/22/2025 documented as of this encounter Visit Diagnoses Diagnosis Pulmonary hypertension- Primary documented in this encounter Care Teams Dispatcher Radio Relationship Specialty Start Date End Date Cassia Blanco Dr. PCP - General 09/08/24 documented as of this encounter
--- OUTSIDE RECORDS SUMMARY | 2024-10-02 11:25 | XMS_ITS | Clinical Summary ---
Author Organization [facility] Address [address] [place] [address] Care Team Providers Care Dot Net Architect Name Role Phone Maegan Bermeo MD Primary Care Provider [phone] Allergies Active Allergy Reactions Criticality Noted Date [...] is elevated above patient's baseline of around 9961-7709 -most recent echo obtained in October 2021 [...] but pain at time of arrival to [facility] PLAN: -pain control initially with p.r.n. [...] Description 09/15/2024 10:40 AM EDT Office Visit [facility] [place] [address] [place] [address] Raimundo Hatch, DPM Ulcer of toe of left foot, with fat layer exposed (CMS/HCC) (Primary Dx); Diabetic neuropathy with neurologic complication (CMS/HCC); Corns and callosities; Nail dystrophy 09/15/2024 Travel 08/18/2024 9:20 AM EDT Office Visit [facility] [address] [place] [address] Raimundo Hatch, DPM Hammer toe, acquired (Primary Dx) 08/18/2024 Travel 08/11/2024 8:20 AM EDT Office Visit [facility] [place] [address] [place] [address] Raimundo Hatch, DPM Ulcer of toe of left foot, with fat layer exposed (CMS/HCC) (Primary Dx); Diabetic neuropathy with neurologic complication (CMS/HCC); Hammer toe, acquired 08/11/2024 Travel 07/30/2024 Telephone [facility] [address] [place] [address] Raimundo Hatch, DPM 07/10/2024 Orders Only External Location [address] [place] [address] Provider, External 07/08/2024 Orders Only External Location [address] [place] [address] Provider, External 07/03/2024 Orders Only External Location [address] [place] [address] Provider, External from Last 3 Months Immunizations [...] drink first t ken in the morning (EYE-J2EE ANDROID DEVELOPER) to steady your nerves or to get [...] Additional history exists [facility]-Depression Screening 06/08/2023 06/07/2022 [id number] Vaccine ( season) 2023 01/05/2022, 01/07/2021, 06/11/2020, [...] Procedure Name Priority Date/Time Associated Diagnosis Comments PA DEBRIDEMENT, SKIN, SUB-Q TISSUE,=<20 SQ CM Routine [...] Recently Relevant to Health Maintenance Results * PA DEBRIDEMENT, SKIN, SUB-Q TISSUE,=<20 SQ CM (08/11/2024 [...] the correct patient, procedure, equipment, customer support technician, and site/side marked as required. [...] Adults <6.0% Children and Adolescents <7.5% Source: [place] [employer]. Standards of medical care in diabetes,2017. Diabetes Care.2017:40 (suppl 1):S1-S135. HbA1c assay performed by an ion-exchange chromatography method that is certified traceable to the DCCT. us Maegan Bermeo MD LAB BLOOD ORDERABLES Final Re sult [facility] [address] [place] [address] * Hepatitis C Antibody - ED (09/24/2021 7:52 AM EDT) Hepatitis C Antibody Negative Negative 09/24/2021 9:51 AM EDT [facility] Blood Venous blood specimen / Unknown Venipuncture / Unknown 09/24/2021 7:52 AM EDT 09/24/2021 8:10 AM EDT us Farida Sharif MD LAB BLOOD ORDERABLES Final Res ult [facility] [address] [place] [address] * MAMMOGRAPHY EXTERNAL RESULTS (01/20/2019) Anatomical Region [...] Recently Relevant to Health Maintenance [place] [address] [facility] Advance Directives * DNR/DNI (Latest Code Status [...] Patient has decision-making capacity? Yes Care Teams Dot Net Architect Relationship Specialty Start Date End Date Maegan Bermeo MD [address] [place] [address] PCP - General Family Medicine 09/15/21
--- OUTSIDE RECORDS SUMMARY | 2024-10-02 11:25 | XMS_ITS | Encounter Summary ---
Author Organization [facility] Address [address] [place] [address] Care Team Providers Care Automotive Glass Technician Name Role Phone Maegan Bermeo MD Primary Care Provider [phone] Encounter Details Date Type Department Care Team (Late st Contact Info) Description 07/08/2024 Orders Only External Location [address] [place] [address] Provider, External Social History Tobacco Use Types [...] Have you had a drink first t ekn in the morning (EYE-COLORIST FORMULATOR) to steady your nerves or to get [...] documented as of this encounter Care Teams Automotive Glass Technician Relationship Specialty Start Date End Date Maegan Bermeo MD [address] [place] [address] PCP - General Family Medicine 09/15/21 documented as of this encounter
--- OUTSIDE RECORDS SUMMARY | 2024-10-02 11:25 | XMS_ITS | Encounter Summary ---
Author Organization [facility] Address [address] [place] [address] Care Team Providers Care Wastewater Manager Name Role Phone Maegan Bermeo MD Primary Care Provider [phone] Encounter Details Date Type Department Care Team (Late st Contact Info) Description 07/03/2024 Orders Only External Location [address] [place] [address] Provider, External Social History Tobacco Use Types [...] drink first t ken in the morning (EYE-PROGRAM RESEARCH SPECIALIST) to steady your nerves or to [...] documented as of this encounter Care Teams Wastewater Manager Relationship Specialty Start Date End Date Maegan Bermeo MD [address] [place] [address] PCP - General Family Medicine 09/15/21 documented as of this encounter
--- OUTSIDE RECORDS SUMMARY | 2024-10-02 11:25 | XMS_ITS | Encounter Summary ---
Author Organization [facility] Address [address] [place] [address] Care Team Providers Care Blacking Wheel Tender Name Role Phone Jan Castelan MD Primary Care Provider [phone] Benjie Quezada MD Primary Care Provider Tamika Loomis APRN Primary Care Provider [phone] Maegan Bermeo MD Primary Care Provider [phone] Audra Whal WELL TESTING OPERATOR Unavailable Unavailab Jessa Jimenez WELL TESTING OPERATOR Unavailable Unavailable Reason for Visit * Reason Comments Med Refill Encounter Details Date Type Department Care Team (Late st Contact Info) Description 02/22/2021 Refill Family and Community Medicine [address] [place] [address] Jan Castelan MD [address] [place] [address] Uncontrolled type 2 diabetes mellitus with hyperglycemia ([facility]) Social History Tobacco Use Types Packs/Day [...] and sent to appropriate Health Dept. IPAC Marketing Traffic Coordinator: Nimco Simms 10/26/2021 10/26/2021 022 10:27 AM EDT COVID 19 (Confirmed) 11/11/2021 11/11/2021 022 5:23 AM EDT COVID-19 Rule-Out 05/16/2022 05/16/2022 05/16/2022 11:05 PM EDT documented as of this encounter Care Teams Blacking Wheel Tender Relationship Specialty Start Date End Date Jan Castelan MD [address] [place] [address] PCP - General 07/02/20 08/07/21 Benjie Quezada MD [address] [facility] [address] [place] [address] PCP - General Family Medicine 08/08/21 08/30/21 Tamika Loomis APRN [address] [place] [address] PCP - General Family Medicine 08/31/21 09/14/21 Maegan Bermeo MD [address] [place] [address] PCP - General Family Medicine 09/15/21 Audra Wahl LPN VAL[employer]ED [place] [address] TCM Nurse 09/27/21 10/27/21 Jessa Park LPN VALUE-[employer]ED [place] [address] Registered Nurse 05/26/22 05/26/22 documented as of this encounter
--- OUTSIDE RECORDS SUMMARY | 2024-10-02 11:25 | XMS_ITS | Encounter Summary ---
Author Organization [facility] Address [address] [place] [address] Care Team Providers Care Psychological Anthropologist Name Role Phone Maegan Bermeo MD Primary Care Provider [phone] Encounter Details Date Type Department Care Team (Late st Contact Info) Description 07/10/2024 Orders Only External Location [address] [place] [address] Provider, External Social History Tobacco Use Types [...] drink first t ken in the morning (EYE-CASCADE OPERATOR) to steady your nerves or to [...] documented as of this encounter Care Teams Psychological Anthropologist Relationship Specialty Start Date End Date Maegan Bermeo MD [address] [place] [address] PCP - General Family Medicine 09/15/21 documented as of this encounter
--- OUTSIDE RECORDS SUMMARY | 2024-10-02 11:25 | XMS_ITS | Encounter Summary ---
Author Organization [facility] Address [address] [place] [address] Care Team Providers Care Road Commissioner Name Role Phone Maegan Bermeo MD Primary Care Provider [phone] Encounter Details Date Type Department Care Team [...] drink first t ken in the morning (EYE-DIAMOND BROKER) to steady your nerves or to get [...] documented as of this encounter Care Teams Road Commissioner Relationship Specialty Start Date End Date Maegan Bermeo MD [address] [place] [address] PCP - General Family Medicine 09/15/21 documented as of this encounter
[2024-10-02 11:55] LABS: Ammonia 10 umol/L (9-30)
[2024-10-02 11:57] LABS: INR 1.13 (0.9-1.1); Prothrombin Time 12.4 seconds (10.1-12.5)
[2024-10-02 12:00] LABS: Albumin Level 4.1 g/dl (3.5-5.0); Chloride 92 mmol/L (98-107); Potassium 4.6 mmoL/L (3.5-5.1); Sodium 133 mmol/L (136-145)
[2024-10-02 12:02] LABS: Blood Urea Nitrogen 63 mg/dl (7-17); Creatinine,Serum 1.30 mg/dl (0.52-1.04); Estimated Glomerular Filt Rate 40 ml/min (>60); GFR (African American) 49 ML/MIN (>60)
[2024-10-02 12:03] LABS: Alanine Aminotransferase 21 U/L (12-78); Albumin/Globulin Ratio 1.0 (1.1-1.8); Alkaline Phosphatase 136 U/L (38-126); Anion Gap 12.6 mEq/L (5-15); Aspartate Amino Transferase 33 U/L (14-36); Bilirubin,Total 0.6 mg/dl (0.2-1.3); Calcium 9.5 mg/dl (8.4-10.2); Carbon Dioxide 33 mmol/L (22.0-30.0); Globulin 4.1 g/dL (1.3-3.2); Glucose 119 mg/dl (74-100); Total Protein,Serum 8.2 g/dl (6.3-8.2)
[2024-10-07 12:12] LABS: ALT (SGPT) P5P 18 IU/L (0-40); AST (SGOT) P5P 26 IU/L (0-40); Alpha 2-Macroglobulins, Qn 245 mg/dL (110-276); Bilirubin, Total 0.4 mg/dL (0.0-1.2); Cholesterol, Total 132 mg/dL (100-199); GGT 86 IU/L (0-60); Glucose 117 mg/dL (70-99); Triglycerides 82 mg/dL (0-149)
== END 2024-10-02 23:59 | disposition home or self-care (01) ==
LOC: LAB 11:15
PROVIDERS: PCP Internal Medicine; Visit Provider Nurse Practitioner Family
DX: K74.60 Unspecified cirrhosis of liver (principal)
CPT/HCPCS: 36415; 80053; 80074; 81596; 82103; 82104; 82105; 82140; 82164; 82247; 82390; 82465; 82947; 82977; 83521; 84450; 84460; 84478; 85610; 86015; 86376; 86381

== ENCOUNTER 2024-10-17 17:32 | Inpatient (IN) | payer MEDICARE, BC, SELFPAY ==
--- OUTSIDE RECORDS SUMMARY | 2009-06-21 12:32 | XMS_ITS | Continuity of Care Document ---
Author Organization DOMONIQUE Johnson Address [address] [place] [address] Phone Care Team Providers Care Deaf Teacher Name Role Phone Tobias PT PT, Aileen Unavailable Unavailable Allergies, Adverse Reactions, Alerts Substance Reaction Status Criticality MEPERIDINE HCL Active No Informatio n Medications Medication Instructions Dosage Effective Dates (start - stop) Status Comments Baby Aspirin 81 mg Chewable Tab Take one tablet by mouth daily (1T PO QD) - Active Amaryl 2 mg Tab take 1 tablet as needed (1 tab po prn) - Active Januvia 50MGTABLET Take one tablet by mouth two times per day (1T PO BID) - Active Zestril 40 mg Tab Take one tablet by mouth daily (1T PO QD) - Active Actonel 30 mg Tab Take one tablet by mouth daily (1T PO QD) - Active metformin 1,000 mg Tab 2X/day - Active Vicodin 5 mg-500 mg Tab 2-4x/day - Active Procedures Procedure Date Therap Activities 1-on-1 Ea 09 Psych Dx Interview Exam Therap 1/> Areas/15 Min; Exerc 09 Therap 1/> Area/15 Min; Balnc/ 09 Therap 1/> Areas/15 Min; Exerc 09 Therap Activities 1-on-1 Ea 09 Therap 1/> Areas/15 Min; Exerc 09 Therap Activities 1-on-1 Ea 09 Offic/outpt E&m Estab Mod-hi 2 09 Therap 1/> Areas/15 Min; Exerc 09 Therap Activities 1-on-1 Ea 09 Therap 1/> Areas/15 Min; Exerc Therap 1/> Area/15 Min; Balnc/ 09 Therap 1/> Areas/15 Min; Exerc 09 Therap Activities 1-on-1 Ea 09 Phys Therap Eval Therap Activities 1-on-1 Ea 09 Inj Not Lytic-epidur; Lumb/sac 09 Fluoroscopic Guidance For Needle Placeme nt - Spine Inj Not Lytic-epidur; Lumb/sac 09 Offic Cons New/estab Mod-hi 60 09 Advance Directives Directive Yes / No Effective Date File Name No Information Encounters Encounter Description Practice Location Reason(s) For Visit Diagnoses Date Provider Providers Copied on Encounter ALETA Johnson, [address] [facility] [place], [place], [id number], [place] tel:[phone] Mony Johnson [facility] 7390 No Information 3-201 0 Collado PT Aileen. [address] [place], [address], [place]. tel:[phone] Referring Provider: Rica Huggins MD, [facility] [place], [address] . tel:[phone] ALETA Johnson, [address], [place], [place], [address], tel:[phone] [facility] No Information 6[address] Nannette DROP HAMMER PILE DRIVER OPERATOR Hossein. [address] [place], [address], [place]. tel:[phone] Referring Provider: Rica Huggins MD, [address] [place], [address] . tel:[phone] ALETA Johnson, [address], [place], [place], [address], tel:[phone] [facility] No Information 3-200 9 Brandon Daniel. [address] , [address], [place], [place], [address], [place]. tel:[phone] Referring Provider: Rica Huggins MD, [address] [place], [address] . tel:[phone] DOMONIQUE JohnsonC, [address] [facility] [address], [place], [address], [place] tel:[phone] [facility] No Information 2[address] Kleifgen DROP HAMMER PILE DRIVER OPERATOR Tamika. [address] [place], [place], [address], [place]. tel:[phone] Referring Provider: Rica Huggins MD, [address] [place], [address] . tel:[phone] DOMONIQUE JohnsonC, [address] [facility] [address], [place], [address], [place] tel:[phone] [facility] No Information 9 Nannette DROP HAMMER PILE DRIVER OPERATOR Hossein. [address] [place], [address], [place]. tel:[phone] Referring Provider: Rica Huggins MD, [address] [place], [address] . tel:[phone] DOMONIQUE JohnsonC, [address] [facility] [address], [place], [address], [place] tel:[phone] [facility] No Information 9200 9 Nannette DROP HAMMER PILE DRIVER OPERATOR Hossein. [address] [place], [address], [place]. tel:[phone] Referring Provider: Rica Huggins MD, [address] [place], [address] . tel:[phone] Offic/outpt E&m Estab Mod-hi 2 [facility], [address], [place], [place], [address], [place] tel:[phone] [facility] No Information Sep-2 8200 9 Nile LE Brandon. [address], [place], [place], [address], [place]. tel:[phone] Referring Provider: Rica Huggins MD, [address] [facility], [place], [address] . tel:[phone] [facility], [address], [place], [place], [address], [place] tel:[phone] [facility] No Information Sep-2 200 9 Nannette DROP HAMMER PILE DRIVER OPERATOR Hossein. [address], [place], [address], [place]. tel:[phone] Referring Provider: Brandon Dowd CNP Christin, [address], [place], [address] . tel:[phone] [facility], [address], [place], [place], [address], [place] tel:[phone] [facility] No Information Sep-1 200 9 Cottom DROP HAMMER PILE DRIVER OPERATOR Dov. [address], [address], [place], [address], [place]. tel:[phone] Referring Provider: Rica Huggins MD, [address] [facility], [place], [address] . tel:[phone] [facility], [address], [place], [place], [address], [place] tel:[phone] [facility] No Information Sep-1 4200 9 Nannette DROP HAMMER PILE DRIVER OPERATOR Hossein. [address], [place], [address], [place]. tel:[phone] Referring Provider: Rica Huggins MD, [address] [place], [address] . tel:[phone] [facility], [address], [place], [place], [address], [place] tel:[phone] [facility] No Information Sep-1 0-200 9 Tobias Gallagher. [address] [place], [address], [place]. tel:[phone] Referring Provider: Rica Huggins MD, [address] [place], [address] . tel:[phone] [facility], [address], [place], [place], [address], [place] tel:[phone] [facility] No Information Sep-0 2-200 9 No Information Referring Provider: Rica Huggins MD, [address] [place], [address] . tel:[phone] [facility], [address], [place], [address], [place] tel:[phone] [facility] No Information Sep-0 2-200 9 [facility]. [address] [facility] [address], [place], [address], [place]. Offic Cons New/estab Mod-hi 60 [facility], [address], [place], [place], [address], [place] tel:[phone] [facility] No Information Sep-0 2-200 9 Nile Taylor. [address] , [address], [place], [place], [address], [place]. tel:[phone] Referring Provider: Rica Huggins MD, [address] [place], [address] . tel:[phone] Family History Family Member Type Diagnosis Age At Onset No Information Payers Payer name Insurance type Covered republican ID Authoriza tion(s) [employer] ROSIE [id number] Social History Type Description Quantity Date Captured Comments Sex Female Smoking Status No Information Chief Complaint And Reason For Visit No Information Reason For Referral Reason For Referral No Information History Of Present Illness Encounter Date Complaint History Of Prese nt Illness No Information Functional Status Date Functional Assessmen t No Information Instructions Date Instruction Additional Infor mation No Information Assessments Type Assessment Date No Information Patient Care Teams Name Effective Dates (start - stop) Status Members No Information
--- OUTSIDE RECORDS SUMMARY | 2022-03-24 05:26 | XMS_ITS | Continuity of Care Document ---
Author Organization [facility] Address [id number] [place] [address] [address] [place] [address] Phone Care Team Providers Care Continuous Linter Drier Operator Name Role Phone Ana BRIANOphelia Unavailable Unavailabl e Advance Directives Directive Yes / No Effective Date File Name No Information Encounters Encounter Description Practice Location Reason(s) For Visit Diagnoses Date Provider Providers Copied on Encounter [address] [place] [address], [id number] [place], [place] [address], [place], [place], [address], tel:[phone] [facility] No Information Ana Blake PR. Family History Family Member Type Diagnosis Age At Onset No Information Payers Payer name Insurance type Covered constitution party ID Authoriza tion(s) No Information Social History Type Description Quantity Date Captured [...]
--- OUTSIDE RECORDS SUMMARY | 2024-08-18 09:20 | XMS_ITS | Encounter Summary ---
Author Organization [facility] Address [address] [place] [address] Care Team Providers Care Scale Tester Name Role Phone Maegan Bermeo MD Primary Care Provider [phone] Reason for Visit * Reason Comments Foot Ulcer Encounter Details Date Type Department Care Team (Latest Contact Info) Description 08/18/2024 9:20 AM EDT [facility] [address] [place] [address] Raimundo Hatch, DPM [address] [place] [address] Hammmiguel toe, acquired (Primary Dx) Social History Tobacco Use Types Packs/Day Years [...] drink first t ken in the morning (EYE-DIRECTOR OF MOBILE MARKETING) to steady your nerves or to get [...] Sign Reading Time Taken Comments Blood Pressure 102/68 08/18/2024 8:30 AM EDT Pulse 78 08/18/2024 8:30 AM EDT Temperature 36.6 C (97.9 F) 08/18/2024 8:30 AM EDT Respiratory Rate - - Oxygen Saturation - - Inhaled Oxygen Concentration - - Weight 104 kg (229 lb 4.5 oz) 08/18/2024 8:30 AM EDT Height 165.1 cm (5' 5 ) 08/18/2024 8:30 AM EDT Body Mass Index 38.15 08/18/2024 8:30 AM EDT documented in this encounter Miscellaneous Notes * Patient Instructions - Mitali Stoner RN - 08/18/2024 9:20 AM EDT [facility] Physician Orders/Patient Instructions Should you notice [...] Wound With: with soap and water Apply: Mupirocin-if it is still open Cover With: Fluff Gauze Secure With: Ari and Tape Dressing Changes: Daily You have had a procedure performed on your foot. You will need to keep the dressing clean, dry and intact for 5 days. Try to rest and keep your foot elevated. If your foot starts bleeding, try elevation and rest. If this does not stop the bleeding then call the clinic or seek urgent medical attention. Keep your foot clean and dry and use post op shoe for walking. You can return to regular shoes when you remove the dressing. If there is any concern for redness, swelling or drainage from the surgical site you should call the clinic immediately or seek urgent medical attention if after hours or on the weekend. If the issue is not resolved with this procedure we may have to consider open surgery or additionalprocedures to correct the deformity and relieve symptoms * Progress Notes - Raimundo Hatch DPM - 08/18/2024 9:20 AM EDT Rica Flannery is a 68 y.o. female who comes in to see us today for: Chief Complaint Foot Ulcer 68-year-old female returns to clinic with her daughter. She has been holding her Eliquis for 3 days. She is ready to proceed with tenotomy procedure of the left 2nd 3rd and 4th toes. Her Eliquis thisevening Her wound was debrided as described below: Procedures Flexor tenotomy Informed consent was performed today for percutaneous flexor tenotomy of the affected digits 2/3/4 toes. Risks including infection, delayed healing, bleeding, nerve damage, loss of function failure to reduce deformity, recurrence of deformity, flail toe, need for additional surgery or procedures, vascular insult resulting in gangrene and possible amputation of the affected toes. Nonsurgical treatment options were reviewed. The patient wishes to proceed with flexor tenotomy of the affected digits today. Betadine skin prep performed. Aseptic technique utilized. 2 mL of lidocaine plain used for anesthetization with proximal digital sulcus block per digit with 25 gauge needle. An 18 gauge sharp needle was then used to create a percutaneous tenotomy at the level of the middle phalanx distal to the insertion of the flexor digitorumbrevis tendons. The needle was advanced to the tendon and used to release the tendon sharply. Palpable release of the tendon with lack of plantar flexion at the DIPJ appreciated. Irrigation performedwith saline. Wound dressed with antibiotic ointment 4x4s and roll gauze. Patient tolerated well without complication. Patient is keep clean and dry for 5 days if no immediate follow-up as scheduled. The patient has been instructed to call with any concerns related with the procedure such as redness, swelling, infection, pain or drainage from the surgical site. Assessment/Plan In Summary: Rica Flannery is a 68 y.o. year old female who is here today for tenotomy procedure. She has been given postoperative instructions on how to care for the area and can remove the dressing after 5 days and returned to a regular shoe as tolerated. Monitor the toe when we will see themback in about a month. Below is a summary of the diagnoses addressed in today's visit and any associated orders. Problem List Items Addressed This Visit Musculoskeletal Hammer toe, acquired - Primary We will see her back for: Follow up in about 4 weeks (around 09/15/2024). documented in this encounter Plan of Treatment Not on file documented as of this encounter Visit Diagnoses Diagnosis Hammer toe, acquired- Primary Other hammer toe (acquired) documented in this encounter Additional Health Concerns Assessment Noted Time A fall risk assessment has been complete d for the patient 08/18/2024 8:33 AM EDT A Body Mass Index follow-up plan has been documented for the patient 08/18/2024 9:31 AM EDT documented as of this encounter Care Teams Scale Tester Relationship Specialty Start Date End Date Maegan Bermeo MD [address] [place] [address] PCP - General Family Medicine 09/15/21 documented as of this encounter
--- OUTSIDE RECORDS SUMMARY | 2024-09-15 10:40 | XMS_ITS | Encounter Summary ---
Author Organization [facility] Address [address] [place] [address] Care Team Providers Care Central Melt Specialist Name Role Phone Maegan Bermeo MD Primary Care Provider [phone] Reason for Visit * Reason Comments Wound Check Encounter Details Date Type Department Care Team (Latest Contact Info) Description 09/15/2024 10:40 AM EDT Office Visit [place] [facility] [address] 5th Floor [address] [place] [address] Raimundo Hatch, DPM [address] [place] [address] Ulcer of toe of left [...] drink first t ken in the morning (EYE-MASTER AUTOMOTIVE GLASS TECHNICIAN) to steady your nerves or to [...] Stoner RN - 09/15/2024 10:40 AM EDT [facility] Physician Orders/Patient Instructions Should you notice [...] also requesting palliative care. She lives in [facility] in his asking if there is a [...] draining area. I have recommended shoe see [place] [facility] ankle specialist in [facility] and she is [...] documented as of this encounter Care Teams Central Melt Specialist Relationship Specialty Start Date End Date Maegan Bermeo MD [address] [place] [address] PCP - General Family Medicine 09/15/21 documented as of this encounter
--- OUTSIDE RECORDS SUMMARY | 2024-10-06 14:00 | XMS_ITS | Encounter Summary ---
Author Organization [facility] Address [address] [place] [address] Care Team Providers Care X Ray Developer Name Role Phone System, Provider Not In Primary Care Provider Un available Reason for Visit * Reason Comments Tricuspid regurgitation Encounter Details Date Type Department Care Team (Late st Contact Info) Description 10/06/2024 2:00 PM EDT Office Visit [facility] Physicians - Cardiovascular Medicine [address] [place] [address] [address] [place] [address] Abisai Booth MD 401 [facility] [address] [place] [address] Tricuspid incompetence, non-rheumatic (Primary Dx); [...] 2:30 PM EDT documented in this encounter Progress Notes * Abisai Booth MD - 10/06/2024 2:00 PM EDT Images from the original note were not included. Structural Heart & Valve Intervention [facility] Cardiology Chief Complaint Patient presents with Tricuspid regurgitation Encounter Diagnoses Name Primary? Tricuspid incompetence, non-rheumatic Yes Shortness of breath Heart valve disorder History of Present Illness Rica Flannery is a 69 y.o. female that presents to [facility] for evaluation for tricuspid regurgitation and consideration for percutaneous transcatheter ezgp-ci-tqnv tricuspid valve repair with TriClip (tricuspid clip). [...] tricuspid regurgitation and consideration for percutaneous transcatheter eybx-to-fgwq tricuspid valve repair with TriClip (tricuspid clip). [...] Booth MD Structural Heart & Valve Disease [facility] Interventional Cardiology - [facility] Service Tech, [facility] [phone] 10/06/2024 [1] Current Outpatient Medications: atorvastatin (Lipitor) [...] A WEEK, Disp: , Rfl: nystatin (Mycostatin) 066375 UNIT/GM powder, Apply topically in the morning [...] Care Team (Late st Contact Info) Description 11/19/2024 8:00 PM EDT Procedure Visit [facility] [address] [facility] [address] [place] [address] 01/13/2025 2:20 PM EST Telemedicine [facility] - Pulmonology [address] [address] Aubrey Chang MD [address] [place] [phone] 04/14/2025 2:20 PM EST Office Visit [facility] Pul[facility] [address] [address] Aubrey Chang MD [address] [place] [phone] documented as of this encounter Procedures Procedure [...] disorder documented in this encounter Care Teams X Ray Developer Relationship Specialty Start Date End Date System, Provider Not In PCP - General 10/06/24 documented as of this encounter
--- OUTSIDE RECORDS SUMMARY | 2024-10-07 14:00 | XMS_ITS | Encounter Summary ---
Author Organization [facility] Address [address] [place] [address] Care Team Providers Care Program/Music Director Name Role Phone System, Provider Not In Primary Care Provider Un available Reason for Visit * Consultation (Routine) - Closed Specialty Diagnoses / Procedures Referred By Contallison t Referred To Contact Pulmonology Diagnoses Pulmonary hypertension Procedures Pulmonary function test Aubrey Chang MD 401 [facility], [address] [place] [address] Phone: tel: fax: [facility] [address] [facility] 310 [place] [address] Phone: tel: fax: Referral ID Status Reason Start Date Expiration Date V isits Requested Visits Authorized [id number] Closed Specialty Services Required 09/22/2024 10/22/2025 1 1 Encounter Details Date Type Department Care Team (Latest Contact Info) Description 10/07/2024 2:00 PM EDT Procedure [facility] [address] [facility] [address] [place], [place] [id number] Pulmonary hypertension Social History Tobacco Use Types [...] Center [address] [place] [address] 01/13/2025 2:20 PM EST Telemedicine [facility] [address] [facility] 6[address] [place] [address] Aubrey Chang MD [address] [place] [address], [address] [place] [phone] 04/14/2025 2:20 PM EST Office Visit [facility] [address] [address] Aubrey Chang MD [address] [place] [address], [address] [place] [address] documented as of this encounter Procedures Procedure [...] hypertension documented in this encounter Care Teams Program/Music Director Relationship Specialty Start Date End Date System, Provider Not In PCP - General 10/06/24 documented as of this encounter
--- OUTSIDE RECORDS SUMMARY | 2024-10-07 14:40 | XMS_ITS | Encounter Summary ---
Author Organization [facility] Address [address] [place] [address] Care Team Providers Care Application Assistant Name Role Phone System, Provider Not In Primary Care Provider Un available Reason for Visit * Consultation (Routine) - Closed Specialty Diagnoses / Procedures Referred By Contac t Referred To Contact Pulmonology Diagnoses Pulmonary hypertension Procedures Six Minute Walk Test Aubrey Chang MD [address] [facility], [address] [place] [address] Phone: tel: fax: [facility] [address] [facility] [address] [place] [address] Phone: tel: fax: Referral ID Status Reason Start Date Expiration Date V isits Requested Visits Authorized [id number] Closed Specialty Services Required 09/22/2024 10/22/2025 1 1 Encounter Details Date Type Department Care Team (Latest Contact Info) Description 10/07/2024 2:40 PM EDT [facility] [address] [facility] [address] [place], [place] [phone] Pulmonary hypertension Social History Tobacco Use Types [...] - Sleep Center [address] [facility] [address] [place] [address] 01/13/2025 2:20 PM EST Telemedicine [facility] - Pulmonology [address] [facility] [address] [place] [address] Aubrey Chang MD [address] [place] [address], [address] [place] [phone] 04/14/2025 2:20 PM EST Office Visit [facility] - Pulmonology [address] [address] Aubrey Chang MD [address] [place] [address], [address] [place] [address] documented as of this encounter Procedures Procedure [...] hypertension documented in this encounter Care Teams Application Assistant Relationship Specialty Start Date End Date System, Provider Not In PCP - General 10/06/24 documented as of this encounter
--- OUTSIDE RECORDS SUMMARY | 2024-10-07 15:00 | XMS_ITS | Encounter Summary ---
Author Organization [facility] Address [address] [facility] [address] [place] [address] Care Team Providers Care Billboard Mechanic Name Role Phone System, Provider Not In Primary Care Provider Un available Reason for Referral * Medications - Authorized Specialty Diagnoses / Procedures Referred By Contac t Referred To Contact Diagnoses Pulmonary hypertension, not otherwise specified Aubrey Chang MD [address] [place] [address], [address] [place] [address] Phone: tel: fax: Referral ID Status Reason Start Date Expiration Date V isits Requested Visits Authorized [id number] Authorized 09/23/2024 02/18/2099 1 1 * Sleep (Routine) - Closed Specialty Diagnoses / Procedures Referred By Odalis roland Referred To Contact Sleep Medicine Diagnoses Pulmonary hypertension, not otherwise specified Obstructive sleep apnea syndrome Aubrey Chang MD [address] [place] [address], [address] [place] [address] Phone: tel: fax: [place] [address] Phone: tel: fax: Referral ID Status Reason Start Date Expiration Date V isits Requested Visits Authorized [id number] Closed Specialty Services Required 10/07/2024 11/06/2025 1 [...] EDT Office Visit [facility] - Pulmonology [address] [place] [address] [address] [place] [address] Aubrey Chang MD [address] [place] [address], [address] [place] [address] Pulmonary hypertension, not otherwise specified [...] 2:45 PM EDT documented in this encounter Progress Notes * Hans Casas MD - 10/07/2024 3:00 PM EDT [facility] - PULMONOLOGY CLINIC NOTE Patient: [...] and lightheadedness when standing up. Recently saw appointment scheduler yesterday and metoprolol discontinued. BP during visit [...] Body mass index 40+ - severely obese ([facility]) 06/06/2021 Chronic atrial fibrillation ([facility]) 10/11/2021 Chronic right-sided heart failure 10/31/2021 COVID-19 10/27/2021 Diabetic neuropathy with neurologic complication 08/11/2024 Essential (primary) hypertension 05/24/2017 Fall 10/27/2021 Fracture of twelfth thoracic vertebra ([facility]) 10/26/2021 Generalized anxiety disorder 03/04/2021 Lesion of [...] ML SUBCUTANEOUSLY ONCE A WEEK nystatin (Mycostatin) 278484 UNIT/GM powder 2 times daily RT pantoprazole [...] , INR , ANAPATTRN , ANATITERADD , [id number] , ALPHA1 , HIV1X2 , ANCA , [...] 3 months (around 01/07/2025). Hans Casas MD [facility] - PULMONOLOGY 10/07/2024 [1] History reviewed. [...] 3 months as Telehealth. Aubrey Chang MD [facility] Pulmonary Critical Care Medicine documented in this encounter Plan of Treatment Upcoming Encounters Date Type Department Care Team (Late st Contact Info) Description 11/19/2024 8:00 PM EDT Procedure Visit [facility] [address] [facility] [address] [place] [address] 01/13/2025 2:20 PM EST Telemedicine [facility] - Pulmonology [address] [address] Aubrey Chang MD [address] [place] [phone] 04/14/2025 2:20 PM EST Office Visit [facility] - Pulmonology [address] [address] Aubrey Chang MD [address] [place] [phone] Scheduled Referrals Name Type Priority Associated Diagnoses Order Schedule Ambulatory referral to Sleep Studies Outpatient Referral Routine Pulmonary hypertension, not otherwise specified Obstructive sleep apnea syndrome Ordered: 10/07/2024 documented as of this encounter Visit Diagnoses Diagnosis Pulmonary hypertension, not otherwise specified- Primary Obstructive sleep apnea syndrome documented in this encounter Care Teams Billboard Mechanic Relationship Specialty Start Date End Date System, Provider Not In PCP - General 10/06/24 documented as of this encounter
--- OUTSIDE RECORDS SUMMARY | 2024-10-12 20:00 | XMS_ITS | Clinical Summary ---
Author Organization Unknown Care Team Providers Care Manager Oncology Name Role Phone BRENT VERA DO Unavailable Unavailable TISHA RN, HERNAN Unavailable Unavailable AURELIANO JOHNSONN, SANJUANITA Unavailable Unavailable Payers Payer Name Policy Type Policy Number Effective Date Expira tion Date MEDICARE.[facility] [id number] Problems Condition Name Condition Details Condition Category [...] HYPERLIPIDEM IA, UNSPECIFIED Active 09-25 00:00: 00 USP (CURRENT) USE OF ANTICOAGULAN TS Active 09-25 00:00: 00 LNG TRM (CRNT) USE INJECTABLE NON-INSULIN ANTIDIABETIC DRUGS Active 09-25 00:00: 00 PERSONAL HISTORY OF (HEALED) TRAUMATIC FRACTURE Active 09-25 00:00: 00 PERSONAL HISTORY OF URINARY (TRACT) INFECTIONS Active 09-25 00:00: 00 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 Active [...] 1- 00:00: 00 03-02 00:00 :00 No [id number] Unavailable Per instruc tions Per instructio ns (route: oral) Med Classific ation: Genitouri nary Therapy duloxetine 60 mg capsule,del ayed release 2021-02 00:00: 00 03-02 00:00 :00 No [id number] Per instruc tions Per instructio ns (route: oral) Med Classific ation: Central Nervous System Agents Eliquis 5 mg tablet 2021-02 00:00: 00 02-06 23:59 :00 No [id number] AFIB 1 tablet DAILY 1 tablet DAILY (route: oral) Med Classific ation: Hematolog ical Agents furosemide 20 mg tablet 2021-02 2 00:00: 00 02-06 23:59 :00 No [id number] BLOOD THINNER 1 tablet 2 TIMES DAILY 1 tablet 2 TIMES DAILY (route: oral) Med Classific ation: Cardiovas cular Therapy Agents Januvia 100 mg tablet 2021-02 2 00:00: 00 02-06 23:59 :00 No [id number] DIABETES 1 tablet DAILY 1 tablet DAILY (route: oral) Med Classific ation: Endocrine losartan 50 mg tablet 2021-02 2 00:00: 00 03-02 00:00 :00 No [id number] Per instruc tions Per instructio ns (route: oral) Med Classific ation: Cardiovas cular Therapy Agents metformin ER 500 mg tablet,exte nded release 24 hr 2021-02 00:00: 00 02-06 23:59 :00 No [id number] DIABETES 1 tablet 2 TIMES DAILY 1 tablet 2 TIMES DAILY (route: oral) Med Classific ation: Endocrine metoprolol succinate ER 50 mg tablet,exte nded release 24 hr 2021-02 00:00: 00 02-06 23:59 :00 No [id number] ANGINA 1 tablet DAILY 1 tablet DAILY (route: oral) Med Classific ation: Cardiovas cular Therapy Agents nortriptyli ne 25 mg capsule 2021-02 00:00: 00 02-06 23:59 :00 No [id number] DEPRESSION 1 capsule DAILY 1 capsule DAILY (route: oral) Med Classific ation: Central Nervous System Agents simvastatin 20 mg tablet 2021-02 00:00: 00 02-06 23:59 :00 No [id number] CHOLESTEROL 1 tablet BEDTIME 1 tablet BEDTIME (route: oral) Med Classific ation: Cardiovas cular Therapy Agents hydrochloro thiazide 50 mg tablet 2021-02 00:00: 00 03-02 00:00 :00 No [id number] Unavailable Per instruc tions Per instructio ns (route: oral) Med Classific ation: Cardiovas cular Therapy Agents Acetaminoph en Extra Strength 500 mg tablet 03-02 00:00: 00 02-06 23:59 :00 No [id number] PAIN 2 tablet EVERY 6 HOURS 2 tablet EVERY 6 HOURS (route: oral) Med Classific ation: Analgesic , Anti-infl ammatory or Antipyret ic losartan 50 mg tablet 03-02 00:00: 00 02-06 23:59 :00 No [id number] HYPERTENSIO N 1 tablet DAILY 1 tablet DAILY (route: oral) Med Classific ation: Cardiovas cular Therapy Agents Mounjaro 5 mg/0.5 mL subcutaneou s pen injector 09-19 00:00: 00 Yes [id number] DIABETES 5 mg WEEKLY 5 mg WEEKLY (route: subcutaneo us) Med Classific ation: Endocrine atorvastati n 40 mg tablet 09-17 00:00: 00 Yes [id number] CHOLESTEROL 40 mg DAILY 40 mg DAILY (route: oral) Med Classific ation: Cardiovas cular Therapy Agents bumetanide 1 mg tablet 09-17 00:00: 00 Yes [id number] DIURETIC 2 mg 2 TIMES DAILY 2 mg 2 TIMES DAILY (route: oral) Med Classific ation: Cardiovas cular Therapy Agents duloxetine 60 mg capsule,del ayed release 09-17 00:00: 00 09-25 00:00 :00 No [id number] Per instruc tions Per instructio ns (route: oral) Med Classific ation: Central Nervous System Agents Eliquis 5 mg tablet 09-17 00:00: 00 Yes [id number] BLOOD THINNER 5 mg 2 TIMES DAILY 5 mg 2 TIMES DAILY (route: oral) Med Classific ation: Hematolog ical Agents Entresto 24 mg-26 mg tablet 09-17 00:00: 00 Yes [id number] CHF 1 tablet DAILY 1 tablet DAILY (route: oral) Med Classific ation: Cardiovas cular Therapy Agents famotidine 20 mg tablet 09-17 00:00: 00 Yes [id number] GERD 20 mg DAILY 20 mg DAILY (route: oral) Med Classific ation: Gastroint estinal Therapy Agents Farxiga 10 mg tablet 09-17 00:00: 00 Yes [id number] DIABETES 10 mg DAILY 10 mg DAILY (route: oral) Med Classific ation: Endocrine metoprolol succinate ER 25 mg tablet,exte nded release 24 hr 09-17 00:00: 00 Yes [id number] HTN 25 mg DAILY 25 mg DAILY (route: oral) Med Classific ation: Cardiovas cular Therapy Agents nortriptyli ne 25 mg capsule 09-17 00:00: 00 Yes [id number] PAIN 25 mg DAILY 25 mg DAILY (route: oral) Med Classific ation: Central Nervous System Agents spironolact one 25 mg tablet 09-17 00:00: 00 Yes [id number] DIURETIC 25 mg DAILY 25 mg DAILY (route: oral) Med Classific ation: Cardiovas cular Therapy Agents cefadroxil 500 mg capsule 09-04 00:00: 00 Yes [id number] CHF 500 mg TWICE DAILY FOR 7 DAYS 500 mg TWICE DAILY FOR 7 DAYS (route: oral) Med Classific ation: Anti-Infe ctive Agents zolpidem 5 mg tablet 09-04 00:00: 00 Yes [id number] SLEEP 5 mg AT BEDTIME NIGHTLY NEEDED 5 mg AT BEDTIME NIGHTLY NEEDED (route: oral) Med Classific ation: Central Nervous System Agents famotidine 20 mg tablet 08-21 00:00: 00 09-25 00:00 :00 No [id number] Per instruc tions Per instructio ns (route: oral) Med Classific ation: Gastroint estinal Therapy Agents dextrometho rphan-guaif enesin 5 mg-100 mg/5 mL oral liquid 09-25 00:00: 00 Yes [id number] PRN COUGH 5 mL EVERY 6 HOURS [...] CONSULTING PHYSICIANS RN TO OBSERVE AND ASSESS, SOURCING COORDINATOR/STRATEGIC PARTNERSHIP REPRESENTATIVE TO OBSERVE FOR RISK FOR FALLS AND INSTRUCT IN FALL PREVENTION, HOME SAFETY, MEDICATION MANAGEMENT, INFECTION PREVENTION, AND NUTRITION MANAGEMENT. RN/SOURCING COORDINATOR/STRATEGIC PARTNERSHIP REPRESENTATIVE NURSE MAY PERFORM O2 SATURATION LEVEL ON ADMISSION AND PRN FOR RN TO ASSESS/SOURCING COORDINATOR TO OBSERVE PATIENT, WITH NOTIFICATION TO THE PHYSICIAN IF SATURATION IS 90% IN THE ABSENCE OF MORE SPECIFIC PARAMETERS FROM THE PHYSICIAN. AGENCY MAY PERFORM A RESUMPTION OF CARE VISIT FOLLOWING ANY HOSPITAL ADMISSION. RN/SOURCING COORDINATOR/STRATEGIC PARTNERSHIP REPRESENTATIVE TO MONITOR CO-MORBID CONDITIONS LISTED ON THE PLAN OF CARE AND ANY NEW CONDITIONS THAT PRESENT THEMSELVES DURING THIS EPISODE TO IDENTIFY CHANGES AND INTERVENE TO MINIMIZE COMPLICATIONS. [code = RN TO OBSERVE, ASSESS, EVALUATE, AND DEVELOP AN INDIVIDUALIZED PLAN OF CARE. AGENCY MAY ACCEPT ORDERS FROM CONSULTING PHYSICIANS RN TO OBSERVE AND ASSESS, SOURCING COORDINATOR/STRATEGIC PARTNERSHIP REPRESENTATIVE TO OBSERVE FOR RISK FOR FALLS AND INSTRUCT IN FALL PREVENTION, HOME SAFETY, MEDICATION MANAGEMENT, INFECTION PREVENTION, AND NUTRITION MANAGEMENT. RN/SOURCING COORDINATOR/STRATEGIC PARTNERSHIP REPRESENTATIVE NURSE MAY PERFORM O2 SATURATION LEVEL ON ADMISSION AND PRN FOR RN TO ASSESS/SOURCING COORDINATOR TO OBSERVE PATIENT, WITH NOTIFICATION TO THE PHYSICIAN IF SATURATION IS 90% IN THE ABSENCE OF MORE SPECIFIC PARAMETERS FROM THE PHYSICIAN. AGENCY MAY PERFORM A RESUMPTION OF CARE VISIT FOLLOWING ANY HOSPITAL ADMISSION. RN/SOURCING COORDINATOR/STRATEGIC PARTNERSHIP REPRESENTATIVE TO MONITOR CO-MORBID CONDITIONS LISTED ON THE PLAN OF CARE AND ANY NEW CONDITIONS THAT PRESENT THEMSELVES DURING THIS EPISODE TO IDENTIFY CHANGES AND INTERVENE TO MINIMIZE COMPLICATIONS.] Future Scheduled Test RISK FOR H OSPITALIZATION; RN TO ASSESS/TEACH, STRATEGIC PARTNERSHIP REPRESENTATIVE/SOURCING COORDINATOR TO OBSERVE/TEACH PATIENT/CAREGIVER ON RISK FOR HOSPITALIZATION/EMERGENCY ROOM VISITS, TEACH SIGNS AND SYMPTOMS THAT PUT PATIENT AT RISK, WHEN TO NOTIFY NURSE/PHYSICIAN OF COMPLICATIONS/DECLINE, AND WHEN TO CALL 911. [code = RISK FOR HOSPITALIZATION; RN TO ASSESS/TEACH, STRATEGIC PARTNERSHIP REPRESENTATIVE/SOURCING COORDINATOR TO OBSERVE/TEACH PATIENT/CAREGIVER ON RISK FOR HOSPITALIZATION/EMERGENCY ROOM VISITS, TEACH SIGNS AND SYMPTOMS THAT PUT PATIENT AT RISK, WHEN TO NOTIFY NURSE/PHYSICIAN OF COMPLICATIONS/DECLINE, AND WHEN TO CALL 911.] Future Scheduled Test CARDIOVASC ULAR SYSTEM; RN TO ASSESS/TEACH, SOURCING COORDINATOR/STRATEGIC PARTNERSHIP REPRESENTATIVE TO OBSERVE/TEACH RELATED TO ALTERED CARDIOVASCULAR STATUS TO MINIMIZE COMPLICATIONS AND REDUCE HOSPITALIZATION. [code = CARDIOVASCULAR SYSTEM; RN TO ASSESS/TEACH, SOURCING COORDINATOR/STRATEGIC PARTNERSHIP REPRESENTATIVE TO OBSERVE/TEACH RELATED TO ALTERED CARDIOVASCULAR STATUS TO MINIMIZE COMPLICATIONS AND REDUCE HOSPITALIZATION.] Future Scheduled Test HEART FAIL URE; RN TO ASSESS/TEACH, SOURCING COORDINATOR/STRATEGIC PARTNERSHIP REPRESENTATIVE TO OBSERVE/TEACH CARDIOPULMONARY SYSTEM TO IDENTIFY SIGNS [...] [code = HEART FAILURE; RN TO ASSESS/TEACH, SOURCING COORDINATOR/STRATEGIC PARTNERSHIP REPRESENTATIVE TO OBSERVE/TEACH CARDIOPULMONARY SYSTEM TO IDENTIFY SIGNS [...] End Date/Time Encounter Type Admission Type Attending [facility] Care Department Encounter ID Discharge Date Discharge Status Discharge Condition Discharge Reason Percent Goals Met 2024-09-25 00:00:00 2024-10-13 00:00:00 Outpatient HERNAN JOHNS [facility] [id number] 2024-10-13 00:00:00 DISCHARGE TO HOME OR SELF CARE INDEPENDEN T IN THE HOME HH - PER PHYSICIAN REQUEST 87.50
[2024-10-17] VITALS (7 sets, daily range): BP systolic 75–94; BP diastolic 41–76; PULSE 55–63; RESP 12–17; TEMP 36.4–36.7; O2SAT 92–98; BMI 37.4; BMI 38.9
--- NOTE | 2024-10-17 17:45 | ECG_ITS ---
APPROVED REPORT Exam: Resting ECG HR:59 bpm ECG Measurements Heart Rate 59 AXES QRSd 106 QRS 74 QT 433 T 89 QTc 433 Conclusion ATRIAL FIBRILLATION WITH SLOW VENTRICULAR RESPONSE LOW QRS VOLTAGE [QRS DEFLECTION < 0.5/1.0 mV IN LIMB/CHEST LEADS] MODERATE ST DEPRESSION [0.05+ mV ST DEPRESSION] ABNORMAL ECG Electronically signed by : DANILO VILLASENOR, 10/18/2024 00:11:55
--- NOTE | 2024-10-17 17:50 | PC.NURSE ---
PT WAS 84% ON RA WHEN THEY ARRIVED TO THE ER. PLACED ON 4L NC NOTED AT 92% TOLERATING WELL. ER MD AWARE OF OXYGEN AND BLOOD PRESSURE
--- NOTE | 2024-10-17 17:50 | PC.NURSE ---
ER AT BEDSIDE
--- OUTSIDE RECORDS SUMMARY | 2024-10-17 17:53 | XMS_ITS | Encounter Summary ---
Author Organization [facility] Address [address] [place] [address] Care Team Providers Care Painting Instructor Name Role Phone System, Provider Not In Primary Care Provider Un available Reason for Visit * Reason Onset Date Comments Side Effects 10/15/2024 Encounter Details Date Type Department Care Team (Late st Contact Info) Description 10/15/2024 Telephone [facility] - Pulmonology [address] [place] [address] Shikha Clayton MA Side Effects Social History Tobacco Use Types Packs/Day Years [...] as of this encounter Miscellaneous Notes * Addendum Note - Shikha Clayton MA - 10/15/2024 1:23 PM EDTAddended by: SHIKHA CLAYTON on: 10/15/2024 01:23 PM Modules accepted: Orders * Telephone Encounter - Shikha Clayton MA - 10/15/2024 1:20 PM EDT Spoke with Dr. Chang. Approved Jos. Called patients daughter at 1:22 p.m. and LVM advising that the med has been sent in. * Telephone Encounter - Shikha Clayton MA - 10/15/2024 11:05 AM EDT Patients caregiver called in stating that Mrs. Flannery has had significant nausea and dizziness since starting Tadalafil and Opsumit. States that she is only eating once daily due to the side effects. Idid explain that these are known side effects of the meds that usually do taper off as she adjusts to the meds. However, I did send Dr. Chang a message to see if he recommends anything or if there is any concern with these symptoms. Pharmacy: [facility] in [place]. documented in this encounter Plan of Treatment Upcoming Encounters Date Type Department Care Team (Late st Contact Info) Description 11/19/2024 8:00 PM EDT Procedure Visit [facility] [address] [facility] [address] [place] [address] 01/13/2025 2:20 PM EST Telemedicine [facility] - Pulmonology [address] [address] Aubrey Chang MD [address] [place] [phone] 04/14/2025 2:20 PM EST Office Visit [facility] - Pulmonology [address] [address] Aubrey Chang MD [address] [place] [phone] documented as of this encounter Visit Diagnoses Diagnosis Pulmonary hypertension, not otherwise specified- Primary documented in this encounter Care Teams Painting Instructor Relationship Specialty Start Date End Date System, Provider Not In PCP - General 10/06/24 documented as of this encounter
--- OUTSIDE RECORDS SUMMARY | 2024-10-17 17:53 | XMS_ITS | Encounter Summary ---
Author Organization [facility] Address [address] [place] [address] Care Team Providers Care Jacquard Loom Carpet Weaver Name Role Phone System, Provider Not In Primary Care Provider Un available Reason for Visit * Reason Onset Date Comments Opsumit RX 10/08/2024 Encounter Details Date Type Department Care Team (Late Contact Info) Description 10/08/2024 Telephone [facility] - Pulmonology [address] [place] [address] Shikha Clayton MA Opsumit RX Social History Tobacco Use Types Packs/Day Years [...] Telephone Encounter - Shikha Clayton MA - 10/08/2024 4:39 PM EDT Sent patients Opsumit RX to [employer] [facility]. It has been approved. Auth #: [id number] and is valid until further notice . documented in this encounter Plan of Treatment Upcoming Encounters Date Type Department Care Team ([facility] Contact Info) Description 11/19/2024 8:00 PM EDT Procedure Visit [facility] [address] [place] [address] 01/13/2025 2:20 PM EST Telemedicine [facility] - Pulmonology [address] [address] Aubrey Chang MD [address] [place] [address], [address] [place] [phone] 04/14/2025 2:20 PM EST Office Visit [facility] - Pulmonology [address] [address] Aubrey Chang MD [address] [place] [address], [address] [place] [phone] documented as of this encounter Visit Diagnoses Not on filedocumented in this encounter Care Teams Jacquard Loom Carpet Weaver Relationship Specialty Start Date End Date System, Provider Not In PCP - General 10/06/24 documented as of this encounter
--- OUTSIDE RECORDS SUMMARY | 2024-10-17 17:53 | XMS_ITS | Encounter Summary ---
Author Organization [facility] Address [address] [place] [address] Care Team Providers Care Fashion Adviser Name Role Phone System, Provider Not In Primary Care Provider Un available Reason for Visit * Reason Onset Date Comments Tadalafil Approval. 10/08/2024 Encounter Details Date Type Department Care Team (Late Contact Info) Description 10/08/2024 Telephone [facility] - Pulmonology [address] [place] [address] Shikha Clayton MA Tadalafil Approval. Social History Tobacco Use Types Packs/Day Years [...] Encounter - Shikha Clayton MA - 10/08/2024 4:50 PM EDT Patients Tadalafil has been approved. Auth #: [id number] documented in this encounter Plan of Treatment Upcoming Encounters Date Type Department Care Team (Late Contact Info) Description 11/19/2024 8:00 PM EDT Procedure Visit [facility] [address] [place] [address] 01/13/2025 2:20 PM EST Telemedicine [facility] - Pulmonology [address] [address] Aubrey Chang MD [address] [place] [address], [address] [place] [phone] 04/14/2025 2:20 PM EST Office Visit [facility] - Pulmonology [address] [address] Aubrey Chang MD [address] [place] [address], [address] [place] [phone] documented as of this encounter Visit Diagnoses Not on filedocumented in this encounter Care Teams Fashion Adviser Relationship Specialty Start Date End Date System, Provider Not In PCP - General 10/06/24 documented as of this encounter
--- OUTSIDE RECORDS SUMMARY | 2024-10-17 17:53 | XMS_ITS | Encounter Summary ---
Author Organization [facility] Address [address] [place] [address] Care Team Providers Care Petroleum Geologist Name Role Phone System, Provider Not In Primary Care Provider Un available Reason for Visit * Reason Onset Date Comments Opsumit Approval 10/13/2024 Encounter Details Date Type Department Care Team (Late st Contact Info) Description 10/13/2024 Telephone [facility] Pulmonology [address] [place] [address] Shikha Clayton MA Opsumit Approval Social History Tobacco Use Types Packs/Day Years [...] Telephone Encounter - Shikha Clayton MA - 10/13/2024 2:02 PM EDT Received PA status update for patients Opsumit from [employer] with [employer] as her insurance will not [id number] parties information. I have faxed them a copy of her approval. documented in this encounter Plan of Treatment Upcoming Encounters Date Type Department Care Team (Late st Contact Info) Description 11/19/2024 8:00 PM EDT Procedure Visit [facility] [address] [place] [address] 01/13/2025 2:20 PM EST Telemedicine [facility] - Pulmonology [address] [address] Aubrey Chang MD [address] [place] [address], [address] [place] [phone] 04/14/2025 2:20 PM EST Office Visit [facility] - Pulmonology [address] [address] Aubrey Chang MD [address] [place] [address], [address] [place] [phone] documented as of this encounter Visit Diagnoses Not on filedocumented in this encounter Care Teams Petroleum Geologist Relationship Specialty Start Date End Date System, Provider Not In PCP - General 10/06/24 documented as of this encounter
--- OUTSIDE RECORDS SUMMARY | 2024-10-17 17:53 | XMS_ITS | Encounter Summary ---
Author Organization [facility] Address [address] [place] [address] Care Team Providers Care Scrap Sorter Name Role Phone Maegan Bermeo MD Primary Care Provider [phone] Encounter Details Date Type Department Care Team [...] drink first t ken in the morning (EYE-DOCUMENTATION SPECIALIST) to steady your nerves or to [...] documented as of this encounter Care Teams Scrap Sorter Relationship Specialty Start Date End Date Maegan Bermeo MD [address] [place] [phone] PCP - General Family Medicine 09/15/21 documented as of this encounter
--- OUTSIDE RECORDS SUMMARY | 2024-10-17 17:53 | XMS_ITS | Encounter Summary ---
Author Organization [facility] Address [address] [facility] [address] [place] [address] Care Team Providers Care Pbx Inspector Name Role Phone System, Provider Not In Primary Care Provider Un available Encounter Details Date Type Department Care Team (Latest Contact Info) Description 10/06/2024 Travel Social History Tobacco Use Types Packs/Day [...] [facility] [address] [facility] [address] [place] [address] 01/13/2025 2:20 PM EST Telemedicine [facility] - Pulmonology [address] [facility] [address] [place] [address] Aubrey Chang MD [address] [place] [address], [address] [phone] 04/14/2025 2:20 PM EST Office Visit [facility] Pulmon[facility] [address] [address] Aubrey Chang MD [address] [place] [address], [address] [place] [phone] documented as of this encounter Visit Diagnoses Not on filedocumented in this encounter Care Teams Pbx Inspector Relationship Specialty Start Date End Date System, Provider Not In PCP - General 10/06/24 documented as of this encounter
--- OUTSIDE RECORDS SUMMARY | 2024-10-17 17:54 | XMS_ITS | Clinical Summary ---
Author Organization [facility] Address [address] [facility] [address] [place] [address] Care Team Providers Care Director Print Name Role Phone System, Provider Not In Primary Care Provider Un available Allergies Active Allergy Reactions Criticality Noted Date Comments Levofloxacin Hives Medium 07/20/2018 Meperidine Nausea Only Low 05/24/2017 Medications Eliquis 5 MG tablet 08/22/19 25 Active atorvastatin (Lipitor) 40 MG tablet Take 40 mg by mouth in the morning. 07/29/19 25 Active bumetanide (Bumex) 1 MG tablet Take 1 mg by mouth in the morning and 1 mg in the evening. 07/29/19 25 Active zolpidem (Ambien) 5 MG tablet Take 5 mg by mouth 1 (one) time each day if needed. 05/13/19 25 Active Mounjaro 5 MG/0.5ML solution auto-injector INJECT 0.5 ML SUBCUTANEOUSLY ONCE A WEEK Active spironolacton e (Aldactone) 25 MG tablet Take 25 mg by mouth in the morning. 07/29/19 25 Active Januvia 50 MG tablet 05/03/19 25 Active Entresto 24-26 MG tablet Take 1 tablet by mouth in the morning and 1 tablet in the evening. 07/29/19 25 Active pantoprazole (ProtoNix) 40 MG EC tablet Take 40 mg by mouth in the morning. 05/03/19 25 Active nystatin (Mycostatin) 548386 UNIT/GM powder Apply topically in the morning and before bedtime. 05/10/19 25 Active ferrous sulfate 325 (65 Fe) MG tablet Take 1 tablet by mouth every other day. 09/27/19 25 Active dapagliflozin (Farxiga) 10 MG Take 10 mg by mouth in the morning. 05/03/19 Active DULoxetine (Cymbalta) [address] capsule 09/18/19 Active tadalafil, antihypertens amadou, (Adcirca) 20 mg tabletIndicat ions:Pulmonar y hypertension, not otherwise specified Take 1 tablet by mouth in the morning. 360 tablet 11 10/08/19 25 2036 Active ondansetron (Zofran) 8 MG tabletIndicat ions:Pulmonar y hypertension, not otherwise specified Take 1 tablet by mouth every 8 (eight) hours if needed for nausea or vomiting for up to 30 days. 20 tablet 3 10/16/19 25 2024 Active metoprolol succinate XL (Toprol-XL) 25 MG 24 hr tablet 09/18/19 25 2024 Discontinued Active Problems Problem Noted Date Diagnosed Date [...] but pain at time of arrival to [facility] PLAN: -pain control initially with [...] Follow up with Glory Mcgee on 12/01 Chronic atrial fibrillation 10/11/2021 Overview [...] Encounters Date Type Department Care Team Description 10/15/2024 Telephone [facility] - Pulmonology [address] [address] Shikha Clayton MA Side Effects 10/13/2024 Telephone [facility] - Pulmonology [address] [address] Shikha Clayton MA Opsumit Approval 10/08/2024 Telephone [facility] - Pulmonology [address] [address] Shikha Clayton MA Tadalafil Approval. 10/08/2024 Telephone [facility] - [facility]monology [address] [facility] [address] [place] [address] Shikha Clayton MA Opsumit RX 10/07/2024 3:00 PM EDT [facility] [address] [facility] [address] [place] [address] Aubrey Chang MD Pulmonary hypertension, not otherwise specified (Primary Dx); Obstructive sleep apnea syndrome 10/07/2024 2:40 PM EDT [facility] [address] [facility] [address] [place] [address] Pulmonary hypertension 10/07/2024 2:00 PM EDT [facility] [address] [facility] [address] [place] [address] Pulmonary hypertension 10/06/2024 2:00 PM EDT Office Visit [facility] - Cardiovascular Medicine [address] [facility] [address] [place] [address] Abisai Booth MD Tricuspid incompetence, non-rheumatic (Primary Dx); Shortness of breath; Heart valve disorder 10/06/2024 Travel 09/30/2024 Telephone [facility] - Sleep Center [address] [address] Cheko Garza MD Appointment; Forms/questionnaire s (Night tech questions) 09/30/2024 Telephone [facility] Sleep Center [address] [address] Cheko Garza MD Appointment 09/29/2024 Orders Only [facility] [address] [facility] [address] [place] [address] Pcp, None 09/22/2024 Orders Only [facility] [address] [id number] Dov Lopez, [place] Pulmonary hypertension (Primary Dx) 09/22/2024 [facility] [address] [address] Olga Lidia Dahl AGING ROOM HAND Hospital f/u Appt Request 09/22/2024 Telephone [facility] [address] 3rd [place] [address] Phy, Unknown 09/22/2024 Telephone [facility] Administrative Services [address] [place] [address] Stefanie Graves RN Hospital Follow Up 09/19/2024 Orders Only [facility] - Cardiovascular Medicine [address] [place] [address] Thomas Hoffmann MD Pulmonary hypertension, not otherwise specified (Primary Dx); Obstructive sleep apnea from Last 3 Months Immunizations Immunization Administration Dates Next Due Influenza High-dose Seasonal Quadv Pf .7ml 01/06 Influenza Seasonal Quadv Adj 0.5 Ml Pf Influenza, quadrivalent PF ( fluarix, Afluria, Flulaval, Fluzone) 12/24/2017 Pneumococcal Conjugate PCV 20 (Prevnar 20) 09/19 Social History Tobacco Use Types Packs/Day Years [...] Mass Index 37.56 10/07/2024 2:45 PM EDT Plan of Treatment Upcoming Encounters Date Type Department Care Team (Late st Contact Info) Description 11/19/2024 8:00 PM EDT Procedure Visit [facility] [address] [facility] [address] [place] [address] 01/13/2025 2:20 PM EST Telemedicine [facility] - Pulmonology [address] [facility] [address] [place] [address] Aubrey Chang MD [address] [place] [address], [address] [place] [address] 04/14/2025 2:20 PM EST Office Visit [facility] - Pulmonology [address] [facility] [address] [place] [address] Aubrey Chang MD [address] [place] [address], [address] [place] [phone] Health Maintenance Due Date Last Done Comments Bone Density Scan 1953 CT Colonography 1953 Colonoscopy 1953 FIT 1953 FOBT 1953 Hepatitis C Screening 1955 Lipid Panel 1955 Medicare Annual Wellness (AWV) 1953 Sigmoidoscopy 1953 Diabetes: Foot Exam 08/20/1963 Diabetes: Retinopathy Screening 08/20/1963 Hepatitis B Screening 08/20/1971 DTaP/Tdap/Td Vaccines (1 - Tdap) 1972 Hepatitis A Vaccines (1 of 2 - Risk 2-dose series) 1972 Mammogram 1993 Zoster Vaccines (1 of 2) 08/20/2003 Hepatitis B Vaccines (1 of 3 - Risk 3-dose series) 2013 Colorectal Cancer Screening 02/04/2022 FIT-DNA (Cologuard) 02/04/2022 02/04/2019, 8 Diabetes: Hemoglobin A1C 08/29/2022 023, 03/01/2022, 10/26/2021, Additional history exists COVID-19 Vaccine ( season) 2023 01/05/2022, 01/07/2021, 06/11/2020, Additional history exists Fall Risk Screening 02/20/2024 SDOH Screening 02/20/2024 Influenza Vaccine (#1) 2024 , 01/07/2020, 12/24/2017 Diabetes: Urine Protein Screening 10/06/2025 10/06/2024, 09/17/2024 Pneumococcal Vaccine: 50+ Years Completed 09/19/2024 BMI Intervention Completed 10/07/2024, 10/06/2024 Depression Risk Screening Completed 10/07/2024 HIB Vaccines Aged Out No longer eligi [...] Routine 10/07/2024 1:34 PM EDT Pulmonary hypertension SIX MINUTE WALK TEST Routine 10/07/2024 1:34 PM EDT Pulmonary hypertension ECG 12-LEAD Routine 10/06/2024 2:32 PM EDT Tricuspid incompetence, non-rheumatic CT CHEST WO Routine 09/18/2024 2:56 PM EDT NM LUNG VENTILATION PERFUSION Routine 09/18/2024 2:55 PM EDT CARDIOLOGY SCANNED RESULT 09/18/2024 ECHOCARDIOGRAM TRANSESOPHAGEAL 09/17/2024 2:47 PM EDT CARDIOLOGY SCANNED RESULT 09/17/2024 CL CATH PROCEDURE 09/16/2024 12: 27 PM EDT TRANSTHORACIC ECHO (TTE) COMPLETE W CONTRAST 09/16/2024 10:14 AM EDT CARDIOLOGY SCANNED RESULT 09/16/2024 from Last 3 Months Results * Pulmonary function test (10/07/2024 1:34 PM EDT) Anatomical Region Laterality Modality Other Result [facility] Aubrey Chang MD PFT ORDERABLES Final Res ult * Six Minute Walk Test (10/07/2024 1:34 PM EDT) Anatomical Region Laterality Modality Other Result [facility] Aubrey Chang MD PFT ORDERABLES Final Res ult * ECG 12 Lead (10/06/2024 2:32 PM EDT) Result [facility] Abisai Booth MD ECG ORDERABLES Final Result * CT chest wo IV contrast (09/18/2024 [...] Modality Ultrasound 09/17/2024 2:[address] [facility] Abisai Booth MD CV ECHO PROCEDURES Final Result * Cardiology Scanned Result (09/17/2024) Anatomical Region Laterality Modality Other Narrative 09/17/2024 Ordered by an unspecified provider. us Provider Not In System CV STRESS PROCEDURES Chantale l Result * CL Cath Procedure (09/16/2024 12:27 PM EDT) Anatomical Region Laterality Modality Other 09/16/2024 12:2 7 PM EDT Abisai Booth MD CV CARDIAC CATH PROCEDURES [...] Result from Last 3 Months Insurance MEDICARE [facility] Care Teams Director Print Relationship Specialty Start Date End Date System, Provider Not In PCP - General 10/06/24
--- OUTSIDE RECORDS SUMMARY | 2024-10-17 17:54 | XMS_ITS | Encounter Summary ---
Author Organization Healthcare Address [address] [place] [address] Care Team Providers Care Sander Portable Machine Name Role Phone Jan Castelan MD Primary Care Provider [phone] Benjie Quezada MD Primary Care Provider Tamika Loomis APRN Primary Care Provider [phone] Maegan Bermeo MD Primary Care Provider [phone] Audra Wahl ELEVATOR PILOT Unavailable Unavailab Jessa Jimenez ELEVATOR PILOT Unavailable Unavailable Reason for Visit * Reason Comments Med Refill Encounter Details Date Type Department Care Team (Late st Contact Info) Description 07/27/2020 Refill [facility] [address] [place] [address] Jan Castelan MD [address] [place] [address] Social History Tobacco Use Types [...] and sent to appropriate Health Dept. IPAC Photocopying Machine Operator: Brandiedon Demi 10/26/2021 10/26/2021 022 10:27 AM EDT COVID 19 (Confirmed) 11/11/2021 11/11/2021 022 5:23 AM EDT COVID-19 Rule-Out 05/16/2022 05/16/2022 05/16/2022 11:05 PM EDT documented as of this encounter Care Teams Sander Portable Machine Relationship Specialty Start Date End Date Jan Castelan MD [address] [place] [phone] PCP - General 07/02/20 08/07/21 Benjie Quezada MD [address] [place] [address] PCP - General Family Medicine 08/08/21 08/30/21 Tamika Loomis APRN [address] [place] [address] PCP - General Family Medicine 08/31/21 09/14/21 Maegan Bermeo MD [address] [place] [address] PCP - General Family Medicine 09/15/21 Audra Wahl LPN [employer] [place] [address] TCM Nurse 09/27/21 10/27/21 Jessa Park LPN [employer] [place] [address] Registered Nurse 05/26/22 05/26/22 documented as of this encounter
--- OUTSIDE RECORDS SUMMARY | 2024-10-17 17:54 | XMS_ITS | Clinical Summary ---
Author Organization [facility] Address [address] [place] [address] Care Team Providers Care Market Master Name Role Phone Tricia Pérez MD Primary Care Provider [phone] Allergies Active Allergy Reactions Criticality Noted Date [...] ZOSTER VACCINE (1 of 2) 08/20/2003 ANNUAL WELLNESS VISIT 07/20/2018 HEPATITIS C SCREENING 07/20/2018 COVID-19 Vaccine (1 - 2023-25 season) 2023 INFLUENZA VACCINE 11/19/2024 Insurance MEDICARE A & B [facility] Care Teams Market Master Relationship Specialty Start Date End Date Tricia Pérez MD [address] [place] [address] PCP - General Family Medicine 07/20/18
--- OUTSIDE RECORDS SUMMARY | 2024-10-17 17:54 | XMS_ITS | Encounter Summary ---
Author Organization [facility] Address [address] [facility] [address] [place] [address] Care Team Providers Care Currency Machine Operator Name Role Phone Cassia Blanco Dr Primary Care Provider Unavailabl e Encounter Details Date Type Department Care Team (Late Contact Info) Description 09/29/2024 Orders Only [facility] - Pulmonology [address] [address] Pcp, None Social History Tobacco Use Types [...] [facility] [address] [facility] [address] [place] [address] 01/13/2025 2:20 PM EST Telemedicine [facility] - Pulmonology [address] [address] Aubrey Chang MD [address] [place] [address], [address] [place] [address] 04/14/2025 2:20 PM EST Office Visit [facility] - Pulmonology [address] [address] Aubrey Chang MD [address] [place] [address], [address] [place] [address] documented as of this encounter Procedures Procedure [...] on filedocumented in this encounter Care Teams Currency Machine Operator Relationship Specialty Start Date End Date Cassia Blanco Dr. PCP - General 09/08/24 10/05/24 documented as of this encounter
--- OUTSIDE RECORDS SUMMARY | 2024-10-17 17:54 | XMS_ITS | Encounter Summary ---
Author Organization Healthcare Address [address] [place] [address] Care Team Providers Care Senior Business Broker Name Role Phone Maegan Bermeo MD Primary Care Provider [phone] Jessa Park LPN Unavailable Unavailable Reason for Visit * Reason Comments Med Refill Encounter Details Date Type Department Care Team (Late st Contact Info) Description 11/26/2021 Refill [facility] Community Medicine [address] [place] [address] Benjie Quezada MD [address] [place] [address] Social History Tobacco Use Types [...] as of this encounter Care Teams Senior Business Broker Relationship Specialty Start Date End Date Maegan Bermeo MD [address] [place] [address] PCP - General Family Medicine 09/15/21 Jessa Park LPN [employer] [place] [address] Registered Nurse 05/26/22 05/26/22 documented as of this encounter
--- OUTSIDE RECORDS SUMMARY | 2024-10-17 17:54 | XMS_ITS | Encounter Summary ---
Author Organization [facility] Address [address] [place] [address] Care Team Providers Care Timber Killer Name Role Phone Cassia Blanco Dr Primary Care Provider Unavailabl e Reason for Visit * Reason Onset Date Comments Appointment 09/30/2024 Encounter Details Date Type Department Care Team ([facility] Contact Info) Description 09/30/2024 [facility]phone [facility] [address] [facility] [address] [place] [address] Cheko Garza MD [address] [facility] [place] [address] Appointment Social History Tobacco Use Types Packs/Day [...] left voice mail to return call to [phone]. documented in this encounter Plan of Treatment Upcoming Encounters Date Type Department Care Team (Late Contact Info) Description 11/19/2024 8:00 PM EDT [facility] [address] [facility] [address] [place] [address] 01/13/2025 2:20 PM EST Telemedicine [facility] - Pulmonology [address] [address] Aubrey Chang MD [address] [place] [address], [address] [address] 04/14/2025 2:20 PM EST Office Visit [facility] - Pulmonology [address] [address] Aubrey Chang MD [address] [place] [address], [address] [address] documented as of this encounter Visit Diagnoses Not on filedocumented in this encounter Care Teams Timber Killer Relationship Specialty Start Date End Date Cassia Blanco Dr. PCP - General 09/08/24 10/05/24 documented as of this encounter
--- OUTSIDE RECORDS SUMMARY | 2024-10-17 17:54 | XMS_ITS | Encounter Summary ---
Author Organization [facility] Address [address] [facility] [address] [place] [address] Care Team Providers Care Marketing Account Manager Name Role Phone Cassia Blanco Dr Primary Care Provider Unavailabl e Reason for Visit * Reason Onset Date Comments Appointment 09/30/2024 Forms/questionnaires 09/30/2024 Night tech questions Encounter Details Date Type Department Care Team (Late st Contact Info) Description 09/30/2024 Telephone [facility] [address] [facility] [address] [place] [address] Cheko Garza MD [address] [facility] [place] [address] Appointment; Forms/questionnaires (Night tech questions) Social History [...] sure one finger is free of nail indonesian, acrylic, gel etc. For finger sensor at time of study. documented in this encounter Plan of Treatment Upcoming Encounters Date Type Department Care Team (Late st Contact Info) Description 11/19/2024 8:00 PM EDT Procedure Visit [facility] [address] [facility] 490 [place] [address] 01/13/2025 2:20 PM EST [facility] [address] [facility] [address] [place] [address] Aubrey Chang MD [address] [place] [address], [address] [phone] 04/14/2025 2:20 PM EST Office Visit [facility] - Pulmonology [address] [address] Aubrey Chang MD [address] [place] [address], [address] [phone] documented as of this encounter Visit Diagnoses Not on filedocumented in this encounter Care Teams Marketing Account Manager Relationship Specialty Start Date End Date Cassia Blanco Dr. PCP - General 09/08/24 10/05/24 documented as of this encounter
--- OUTSIDE RECORDS SUMMARY | 2024-10-17 17:54 | XMS_ITS | Encounter Summary ---
Author Organization [facility] Address [address] [facility] [address] [place] [address] Care Team Providers Care Sugar Plantation Manager Name Role Phone Cassia Blanco Dr Primary Care Provider Unavailabl e Reason for Referral * Consultation (Routine) - Closed Specialty Diagnoses / Procedures Referred By Contac t Referred To Contact Pulmonology Diagnoses Pulmonary hypertension Procedures Six Minute Walk Test Aubrey Chang MD [address] [facility], [address] [place] [address] Phone: tel: fax: [facility] - Pulmonology [facility] [address] [address] Phone: tel: fax: Referral ID Status Reason Start Date Expiration Date V isits Requested Visits Authorized [id number] Closed Specialty Services Required 09/22/2024 10/22/2025 1 1 * Consultation (Routine) - Closed Specialty Diagnoses / Procedures Referred By Contac t Referred To Contact Pulmonology Diagnoses Pulmonary hypertension Procedures Pulmonary function test Aubrey Chang MD [address] [facility] [place] [address] Phone: tel: fax: [facility] [address] [address] Phone: tel: fax: Referral ID Status Reason Start Date Expiration Date V isits Requested Visits Authorized [id number] Closed Specialty Services Required 09/22/2024 10/22/2025 1 1 Encounter Details Date Type Department Care Team (Late st Contact Info) Description 09/22/2024 Orders Only [facility] - Pulmonology [address] [facility] [address] [place] [address] Dov Lopez, INSTRUCTOR PILOT Pulmonary hypertension (Primary Dx) Social History Tobacco [...] [facility] [address] [facility] 490 [place] [address] 01/13/2025 2:20 PM EST Telemedicine [facility] - Pulmonology [address] [facility] 690 [place] [address] Aubrey Chang MD [address] [place] [address], [address] [place] [phone] 04/14/2025 2:20 PM EST Office Visit [facility] Pul[facility] [address] [address] Aubrey Chang MD [address] [place] [address], [address] [place] [phone] documented as of this encounter Results * Pulmonary function test (10/07/2024 1:34 PM EDT) Anatomical Region Laterality Modality Other us Aubrey Chang MD PFT ORDERABLES Final Res ult * Six Minute Walk Test (10/07/2024 1:34 PM EDT) Anatomical Region Laterality Modality Other us Aubrey Kenneth Chang MD PFT ORDERABLES Final Res ult documented in this encounter Visit Diagnoses Diagnosis Pulmonary hypertension- Primary documented in this encounter Care Teams Sugar Plantation Manager Relationship Specialty Start Date End Date Francis, Cassia Mcnamara Dr. PCP - General 09/08/24 10/05/24 documented as of this encounter
--- OUTSIDE RECORDS SUMMARY | 2024-10-17 17:54 | XMS_ITS | Encounter Summary ---
Author Organization [facility] Address [address] [place] [address] Care Team Providers Care Front Office Developer Name Role Phone Maegan Bermeo MD Primary Care Provider [phone] Audra Wahl CLUB STEWARD Unavailable Unavailab Jessa Jimenez CLUB STEWARD Unavailable Unavailable Reason for Visit * Reason Comments Med Refill Encounter Details Date Type Department Care Team (Late st Contact Info) Description 10/11/2021 Refill Family and Community Medicine [address] [place] [address] Maegan Bermeo MD [address] [place] [address] Avitaminosis D Social History Tobacco [...] asymptomatic, not immunocompromised. Team aware. EVS notified. [facility] has verified patient has a COVID-19 positive result. A chart review has been completed, EPI PUI has been completed and sent to appropriate Health Dept. IPA Electrical Appliance Servicer: Nimco Simms 10/26/2021 10/26/2021 022 10:27 AM EDT COVID 19 (Confirmed) 11/11/2021 11/11/2021 022 5:23 AM EDT COVID-19 Rule-Out 05/16/2022 05/16/2022 05/16/2022 11:05 PM EDT Assessment Noted Time A fall risk assessment has been complete d for the patient 10/11/2021 11:31 AM EDT documented as of this encounter Care Teams Front Office Developer Relationship Specialty Start Date End Date Maegan Bermeo MD [facility] [place] [address] PCP - General Family Medicine 09/15/21 Audra Wahl LPN [employer] [place] [address] TCM Nurse 09/27/21 10/27/21 Jessa Park LPN [employer] [place] [address] Registered Nurse 05/26/22 05/26/22 documented as of this encounter
--- OUTSIDE RECORDS SUMMARY | 2024-10-17 17:54 | XMS_ITS | Encounter Summary ---
Author Organization [facility] Address [address] [facility] [address] [place] [address] Care Team Providers Care Wooden Frame Builder Name Role Phone Cassia Blanco Dr Primary Care Provider Unavailabl e Reason for Referral * Consultation (Routine) - Closed Specialty Diagnoses / Procedures Referred By Contallison t Referred To Contact Sleep Medicine Diagnoses Obstructive sleep apnea Procedures Polysomnography Abisai Booth MD [address] [facility] 310 [place] [address] Phone: tel: fax: [facility] - Sleep Center [address] [facility] [address] [place] [address] Phone: tel: fax: Referral ID Status Reason Start Date Expiration Date Visits Re quested Visits Authorized [id number] Closed 09/19/2024 10/19/2025 1 1 Encounter Details Date Type Department Care Team (Late st Contact Info) Description 09/19/2024 Orders Only [facility] - Cardiovascular Medicine [address] [address] Thomas Hoffmann MD 200 [place] [address] Pulmonary hypertension, not otherwise specified [...] - Sleep Center [address] [facility] 490 [place] [address] 01/13/2025 2:20 PM EST Telemedicine [facility] - Pulmonology [address] [facility] 690 [place] [address] Aubrey Chang MD [address] [place] [phone] 04/14/2025 2:20 PM EST Office Visit [facility] - Pulmonology [address] [address] Aubrey Chang MD [address] [place] [phone] Scheduled Orders Name Type Priority Associated Diagnoses Orde r Schedule Polysomnography Sleep Center Routine Obstructive sleep apnea Expected: 09/19/2024 (Approximate), Expires: 09/19/2025 documented as of this encounter Visit Diagnoses Diagnosis Pulmonary hypertension, not otherwise specified- Primary Obstructive sleep apnea documented in this encounter Care Teams Wooden Frame Builder Relationship Specialty Start Date End Date Cassia Blanco Dr. PCP - General 09/08/24 10/05/24 documented as of this encounter
--- OUTSIDE RECORDS SUMMARY | 2024-10-17 17:54 | XMS_ITS | Encounter Summary ---
Author Organization [facility] Address [address] [place] [address] Care Team Providers Care Field Pipelines Supervisor Name Role Phone Cassia Blanco Dr Primary Care Provider Unavailabl e Reason for Visit * Reason Onset Date Comments Hospital Follow Up 09/22/2024 Encounter Details Date Type Department Care Team ([facility] st Contact Info) Description 09/22/2024 Telephone [facility] [address] [facility] [address] [place] [address] Stefanie Graves RN Hospital Follow Up Social [...] 1955 Date of Discharge: 09/19/2024 Facility Discharged: [facility] Diagnosis at time of Discharge: Severe pulmonary hypertension Cor pulmonale Severe TR Date of Call: 09/23/2024 Date of [facility] Face-to Face Visit: Call Status Call Status: Completed General Clinical How are you feeling now?: Spoke with pt.'s daughter, Marisol. Marisol reports some confusion withwhere prescriptions were sent at d/c as prescriptions were sent to both [facility] and [facility]. Marisol ststes she has addressed [...] [facility] - Sleep Center [address] [facility] 490 [place] [address] 01/13/2025 2:20 PM EST Telemedicine [facility] - Pulmonology [address] [address] Aubrey Chang MD [address] [place] [phone] 04/14/2025 2:20 PM EST Office Visit [facility] - Pulmonology [address] [address] Aubrey Chang MD [address] [place] [phone] documented as of this encounter Visit Diagnoses Not on filedocumented in this encounter Care Teams Field Pipelines Supervisor Relationship Specialty Start Date End Date Cassia Blanco Dr. PCP - General 09/08/24 10/05/24 documented as of this encounter
--- OUTSIDE RECORDS SUMMARY | 2024-10-17 17:54 | XMS_ITS | Encounter Summary ---
Author Organization [facility] Address [address] [place] [address] Care Team Providers Care Laundry Laborer Name Role Phone Cassia Blanco Dr Primary Care Provider Unavailabl e Reason for Visit * Reason Onset Date Comments Hospital f/u Appt Request 09/22/2024 Encounter Details Date Type Department Care Team (Late st Contact Info) Description 09/22/2024 Telephone [facility] - Pulmonology [address] [place], [place] [id number] Olga Lidia Dahl, MEDICAL ASST Hospital f/u Appt Request Social History Tobacco [...] Dr. Barnett Referring Provider: Dr. Sutton @ [facility] Office Phone: Office Fax: Diagnosis: Severe Pre-Capillary PH How was disease diagnosed? Patient presented to [facility] with shortness of air and volume overload. Reported at that time to have periodic shortness of air for several years with the last 1 year having worsened. She reported being severely limited in activity due to her symptoms. [facility] as she lives in [facility]. During this stay, patient underwent RHC [...] [facility] - Sleep Center [address] [facility] 490 [place] [address] 01/13/2025 2:20 PM EST Telemedicine [facility] - Pulmonology [address] [facility] 6[address] [place] [address] Aubrey Chang MD [address] [place] [address], [address] [place] [address] 04/14/2025 2:20 PM EST Office Visit [facility] - Pulmonology [address] [address] Aubrey Chang MD [address] [place] [address], [address] [place] [phone] documented as of this encounter Visit Diagnoses Not on filedocumented in this encounter Care Teams Laundry Laborer Relationship Specialty Start Date End Date Cassia Blanco Dr. PCP - General 09/08/24 10/05/24 documented as of this encounter
--- OUTSIDE RECORDS SUMMARY | 2024-10-17 17:54 | XMS_ITS | Encounter Summary ---
Author Organization [facility] Address [address] [place] [address] Care Team Providers Care Cigarette Maker Name Role Phone Chanay, No Prim Dr Primary Care Provider Unavailabl e System, Provider Not In Primary Care Provider Un available Encounter Details Date Type Department Care Team (Late st Contact Info) Description 09/22/2024 Telephone [facility] [address] [facility], 3rd [place] [address] Phy, Unknown Social History Tobacco Use Types [...] the patient needs to be seen for pul hypertension hospital follow up within 2 to 4 weeks please call patient thanks documented in this encounter Plan of Treatment Upcoming Encounters Date Type Department Care Team (Late Contact Info) Description 11/19/2024 8:00 PM EDT Procedure Visit [facility] [address] [place], [place] [phone] 01/13/2025 2:20 PM EST Telemedicine [facility] - Pulmonology [address] [address] Aubrey Chang MD [address] [place] [address], [address] [place] [phone] 04/14/2025 2:20 PM EST Office Visit [facility] - Pulmonology [address] [address] Aubrey Chang MD [address] [place] [address], [address] [place] [phone] documented as of this encounter Visit Diagnoses Not on filedocumented in this encounter Care Teams Cigarette Maker Relationship Specialty Start Date End Date Cassia Blanco Dr. PCP - General 09/08/24 10/05/24 System, Provider Not In PCP - General 10/06/24 documented as of this encounter
--- OUTSIDE RECORDS SUMMARY | 2024-10-17 17:55 | XMS_ITS | Encounter Summary ---
Author Organization [facility] Address [address] [place] [address] Care Team Providers Care Tool Inspector Name Role Phone Meagan Bermeo MD Primary Care Provider [phone] Encounter Details Date Type Department Care Team (Late st Contact Info) Description 07/03/2024 Orders Only External Location 800 [place] [phone] Provider, External Social History Tobacco Use Types [...] drink first t ken in the morning (EYE-DOPE AND FABRIC WORKER) to steady your nerves or to get [...] documented as of this encounter Care Teams Tool Inspector Relationship Specialty Start Date End Date Maegan Bermeo MD [address] [place] [address] PCP - General Family Medicine 09/15/21 documented as of this encounter
--- OUTSIDE RECORDS SUMMARY | 2024-10-17 17:55 | XMS_ITS | Encounter Summary ---
Author Organization [facility] Address [address] [place] [address] Care Team Providers Care Associate Professor Of Theology Name Role Phone Maegan Bermeo MD Primary Care Provider [phone] Encounter Details Date Type Department Care Team [...] drink first t ken in the morning (EYE-GRAVEL WHEELER) to steady your nerves or to get [...] as of this encounter Care Teams Associate Professor Of Theology Relationship Specialty Start Date End Date Maegan Bermeo MD [address] [place] [phone] PCP - General Family Medicine 09/15/21 documented as of this encounter
--- OUTSIDE RECORDS SUMMARY | 2024-10-17 17:55 | XMS_ITS | Encounter Summary ---
Author Organization [facility] Address [address] [place] [address] Care Team Providers Care Fagoting Machine Operator Name Role Phone Maegan Bermeo MD Primary Care Provider [phone] Encounter Details Date Type Department Care Team (Late st Contact Info) Description 07/08/2024 Orders Only External Location [address] [place] [phone] Provider, External Social History Tobacco Use Types [...] drink first t ken in the morning (EYE-PLATE GRINDER) to steady your nerves or to get [...] documented as of this encounter Care Teams Fagoting Machine Operator Relationship Specialty Start Date End Date Maegan Bermeo MD [address] [place] [address] PCP - General Family Medicine 09/15/21 documented as of this encounter
--- OUTSIDE RECORDS SUMMARY | 2024-10-17 17:55 | XMS_ITS | Encounter Summary ---
Author Organization [facility] Address [address] [place] [address] Care Team Providers Care Rn Lpn Lvn Name Role Phone Jan Castelan MD Primary Care Provider [phone] Benjie Quezada MD Primary Care Provider Tamika Loomis APRN Primary Care Provider [phone] Maegan Bermeo MD Primary Care Provider [phone] Audra Wahl NUTRITION AIDE Unavailable Unavailab Jessa Jimenez NUTRITION AIDE Unavailable Unavailable Reason for Visit * Reason Comments Med Refill Encounter Details Date Type Department Care Team (Late st Contact Info) Description 02/22/2021 Refill Family and Community Medicine [address] [place] [address] Jan Castelan MD [address] [place] [address] Uncontrolled type 2 diabetes mellitus with hyperglycemia ([facility]) Social History Tobacco Use Types Packs/Day [...] and sent to appropriate Health Dept. IPAC Sandal Parts Assembler: Nimco Simms 10/26/2021 10/26/2021 022 10:27 AM EDT COVID 19 (Confirmed) 11/11/2021 11/11/2021 022 5:23 AM EDT COVID-19 Rule-Out 05/16/2022 05/16/2022 05/16/2022 11:05 PM EDT documented as of this encounter Care Teams Rn Lpn Lvn Relationship Specialty Start Date End Date Jan Castelan MD [address] [place] [phone] PCP - General 07/02/20 08/07/21 Benjie Quezada MD [address] [facility] [address] [place] [address] PCP - General Family Medicine 08/08/21 08/30/21 Tamika Loomis APRN [address] [place] [address] PCP - General Family Medicine 08/31/21 09/14/21 Maegan Bermeo MD [address] [place] [address] PCP - General Family Medicine 09/15/21 Audra Wahl LPN VALUE-BASED [place] [address] TCM Nurse 09/27/21 10/27/21 Jessa Park LPN VALUE-BASED [place] [address] Registered Nurse 05/26/22 05/26/22 documented as of this encounter
--- OUTSIDE RECORDS SUMMARY | 2024-10-17 17:55 | XMS_ITS | Encounter Summary ---
Author Organization [facility] Address [address] [place] [address] Care Team Providers Care Handbag Frames Inspector Name Role Phone Jan Castelan MD Primary Care Provider [phone] Benjie Quezada MD Primary Care Provider Tamika Loomis APRN Primary Care Provider [phone] Maegan Bermeo MD Primary Care Provider [phone] Audra Wahl CSR TECHNICIAN Unavailable Unavailab Jessa Jimenez CSR TECHNICIAN Unavailable Unavailable Reason for Visit * Reason Comments Med Refill Encounter Details Date Type Department Care Team (Late st Contact Info) Description 12/28/2020 Refill Family and Community Medicine [address] [place] [address] Jan Castelan MD [address] [place] [address] Social History Tobacco Use Types [...] asymptomatic, not immunocompromised. Team aware. EVS notified. [facility] has verified patient has a COVID-19 positive result. A chart review has been completed, EPI PUI has been completed and sent to appropriate Health Dept. [facility] Lining Sewer: Nimco Demi 10/26/2021 10/26/2021 022 10:27 AM EDT COVID 19 (Confirmed) 11/11/2021 11/11/2021 022 5:23 AM EDT COVID-19 Rule-Out 05/16/2022 05/16/2022 05/16/2022 11:05 PM EDT documented as of this encounter Care Teams Handbag Frames Inspector Relationship Specialty Start Date End Date Jan Castelan MD [address] [place] [address] PCP - General 07/02/20 08/07/21 Benjie Quezada MD [address] [facility] 125 [place] [address] PCP - General Family Medicine 08/08/21 08/30/21 Tamika Loomis APRN [address] [facility] [address] [place] [address] PCP - General Family Medicine 08/31/21 09/14/21 Maegan Bermeo MD [address] [place] [address] PCP - General Family Medicine 09/15/21 Audra Wahl LPN VALUE-[employer]ED [place] [address] TCM Nurse 09/27/21 10/27/21 Jessa Park LPN VALUE-[employer]ED [place] [address] Registered Nurse 05/26/22 05/26/22 documented as of this encounter
--- OUTSIDE RECORDS SUMMARY | 2024-10-17 17:55 | XMS_ITS | Encounter Summary ---
Author Organization [facility] Address [address] [place] [address] Care Team Providers Care Engagement Manager Name Role Phone Maegan Bermeo MD Primary Care Provider [phone] Encounter Details Date Type Department Care Team (Late st Contact Info) Description 03/11/2024 Orders Only External Location [address] [place] [phone] Provider, External Social History Tobacco Use Types [...] drink first t ken in the morning (EYE-COMPO CONVEYOR OPERATOR) to steady your nerves or to [...] documented as of this encounter Care Teams Engagement Manager Relationship Specialty Start Date End Date Maegan Bermeo MD [address] [place] [address] PCP - General Family Medicine 09/15/21 documented as of this encounter
--- OUTSIDE RECORDS SUMMARY | 2024-10-17 17:55 | XMS_ITS | Clinical Summary ---
Author Organization [facility] Address [address] [address] Care Team Providers Care Computer Aided Design Drafter Name Role Phone Unavailable Primary Care Provider [...]
--- OUTSIDE RECORDS SUMMARY | 2024-10-17 17:55 | XMS_ITS | Clinical Summary ---
Author Organization [facility] Address [address] [place] [address] Care Team Providers Care Skilled Laborer Name Role Phone Maegan Bermeo MD Primary Care Provider [phone] Allergies Active Allergy Reactions Criticality Noted Date [...] is elevated above patient's baseline of around 0657-9718 -most recent echo obtained in October 2021 [...] but pain at time of arrival to [facility] PLAN: -pain control initially with p.r.n. [...] Description 09/15/2024 10:40 AM EDT Office Visit [facility] [address] [place] [address] [address], [address] [place] [phone] Raimundo Hatch, DPM Ulcer of toe of left foot, with fat layer exposed (CMS/HCC) (Primary Dx); Diabetic neuropathy with neurologic complication (CMS/HCC); Corns and callosities; Nail dystrophy 09/15/2024 Travel 08/18/2024 9:20 AM EDT Office Visit [facility] [address] [place] [phone] Raimundo Hatch, DPM Hammer toe, acquired (Primary Dx) 08/18/2024 Travel 08/11/2024 8:20 AM EDT Office Visit [facility] [address] [place] [address] [address], [address] [place] [phone] Raimundo Hatch, DPM Ulcer of toe of left foot, with fat layer exposed (CMS/HCC) (Primary Dx); Diabetic neuropathy with neurologic complication (CMS/HCC); Hammer toe, acquired 08/11/2024 Travel 07/30/2024 Telephone [facility] [address], [address] [place] [phone] Raimundo Hatch, DPM from Last 3 Months Immunizations Immunization Administration [...] drink first t ken in the morning (EYE-SPECIALIST ICU) to steady your nerves or to get [...] Additional history exists [facility]-Depression Screening 06/08/2023 06/07/2022 [id number] Vaccine ( season) 2023 01/05/2022, 01/07/2021, 06/11/2020, [...] Procedure Name Priority Date/Time Associated Diagnosis Comments [place] DEBRIDEMENT, SKIN, SUB-Q TISSUE,=<20 SQ CM Routine 08/11/2024 8:20 AM EDT Ulcer of toe of left foot, with fat layer exposed (CMS/HCC) HEMOGLOBIN A1C Routine 03/01/2022 8:45 AM EST Essential (primary) hypertension Uncontrolled type 2 diabetes mellitus with hyperglycemia (CMS/HCC) HEPATITIS C ANTIBODY - ED W/REFLEX TO HCV QUANT PCR STAT 09/24/2021 7:52 AM EDT MAMMOGRAPHY EXTERNAL RESULTS 01/20/2019 LAB COLOGUARD COLON CANCER SCREEN Routine 02/16/2018 8:42 AM EST from Last 3 Months or Most Recently Relevant to Health Maintenance Results * [place] DEBRIDEMENT, SKIN, SUB-Q TISSUE,=<20 SQ CM (08/11/2024 [...] provider verified the correct patient, procedure, equipment, direct support staff, and site/side marked as required. Debridement Details [...] IN CLINIC/BEDSIDE ORDERABLES F inal Result * Hemoglobin A1c (03/01/2022 8:45 AM EST) Hemoglobin A1c 5.5 <5.7 % 03/01/2022 1:22 PM EST [facility] Blood Venous blood specimen / Unknown [...] Adults <6.0% Children and Adolescents <7.5% Source: [place] [employer]. Standards of medical care in diabetes,2017. Diabetes Care.2017:40 (suppl 1):S1-S135. HbA1c assay performed by an ion-exchange chromatography method that is certified traceable to the DCCT. us Maegan Bermeo MD LAB BLOOD ORDERABLES Final Re sult [facility] [address] [place] [address] * Hepatitis C Antibody - ED (09/24/2021 7:52 AM EDT) Hepatitis C Antibody Negative Negative 09/24/2021 9:51 AM EDT [facility] Blood Venous blood specimen / Unknown Venipuncture / Unknown 09/24/2021 7:52 AM EDT 09/24/2021 8:10 AM EDT us Farida Sharif MD LAB BLOOD ORDERABLES Final Res ult Performing Organization Address [facility] Co de Phone Number HEALTHCARE LAB [address] [place] [address] * MAMMOGRAPHY EXTERNAL RESULTS (01/20/2019) Anatomical Region Laterality Modality Mammography Narrative 01/20/2019 Ordered by an unspecified provider. External Provider IMG BI PROCEDURES Final Result * (ABNORMAL) Cologuard (02/16/2018 8:42 AM EST) Cologuard Positive(Y) [employer] 02/16/2018 8:42 AM EST us Historical Provider LAB MOLECULAR DIAGNOSTICS OR DERABLES Final Result Performing Organization Address [facility] Co de Phone Number [employer] from Last 3 Months or Most Recently Relevant to Health Maintenance Insurance MEDICARE ANTHEM Advance Directives * DNR/DNI (Latest Code [...] Patient has decision-making capacity? Yes Care Teams Skilled Laborer Relationship Specialty Start Date End Date Maegan Bermeo MD [address] [place] [phone] PCP - General Family Medicine 09/15/21
--- OUTSIDE RECORDS SUMMARY | 2024-10-17 17:55 | XMS_ITS | Encounter Summary ---
Author Organization [facility] Address [address] [place] [address] Care Team Providers Care Workers' Compensation Mediator Name Role Phone Maegan Bermeo MD Primary Care Provider [phone] Encounter Details Date Type Department Care Team (Late st Contact Info) Description 07/10/2024 Orders Only External Location [address] [place] [phone] Provider, External Social History Tobacco Use Types [...] drink first t ken in the morning (EYE-SERVICE ADVISOR) to steady your nerves or to get [...] documented as of this encounter Care Teams Workers' Compensation Mediator Relationship Specialty Start Date End Date Maegan Bermeo MD [address] [place] [address] PCP - General Family Medicine 09/15/21 documented as of this encounter
--- OUTSIDE RECORDS SUMMARY | 2024-10-17 17:55 | XMS_ITS | Encounter Summary ---
Author Organization [facility] Address [address] [place] [address] Care Team Providers Care Aircraft Line Assembler Name Role Phone Tyler Castelan MD Primary Care Provider [phone] Benjie Quezada MD Primary Care Provider Tamika Loomis APRN Primary Care Provider [phone] Maegan Bermeo MD Primary Care Provider [phone] Audra Wahl STEEL WOOL MACHINE OPERATOR Unavailable Unavailab Jessa Jimenez STEEL WOOL MACHINE OPERATOR Unavailable Unavailable Encounter Details Date Type Department Care Team (Late st Contact Info) Description 06/28/2021 Outside Procedure External Location [address] [place] [phone] Tyler Castelan MD [address] [place] [address] Social History Tobacco Use Types [...] PM EDT Narrative 06/28/2021 4:35 [place] [address] Name: RICA FLANNERY Exam Date: 06/28/2021 : 1955 Age 65 Gender: F Physician: TYLER CASTELAN Facility: [facility] Facility HSV: Outpatient Exam: VENOUS DUPLEX US [...] Thank you for referring RICA FLANNERY to [facility]. Legally authenticated by KWAME HARGROVE 2021-06-28 16:23:11 Procedure Note Provider, [facility] - 06/28/2021 [facility] [address] [place] [address] Name: RICA FLANNERY Exam Date: 06/28/2021 : 1955 Age 65 Gender: F Physician: TYLER CASTELAN Facility: [facility] Facility HSV: Outpatient Exam: VENOUS DUPLEX US [...] Dictated By: Ruddy Gibbons Transcribed By: Ruddy Dmuont Transcribed On: 06/28/2021 4:23 PM Electronically signed by: Ruddy Gibbons 06/28/2021 Thank you for referring RICA FLANNERY to [facility]. Legally authenticated by KWAME HARGROVE 2021-06-28 16:23:11 [...] and sent to appropriate Health Dept. IPAC Application Development Team Lead: Nimco Simms 10/26/2021 10/26/2021 022 10:27 AM EDT COVID 19 (Confirmed) 11/11/2021 11/11/2021 022 5:23 AM EDT COVID-19 Rule-Out 05/16/2022 05/16/2022 05/16/2022 11:05 PM EDT Assessment Noted Time A fall risk assessment has been complete d for the patient 06/28/2021 10:46 AM EDT documented as of this encounter Care Teams Aircraft Line Assembler Relationship Specialty Start Date End Date Tyler Castelan MD [address] [place] [address] PCP - General 07/02/20 08/07/21 Benjie Quezada MD [address] [facility] [address] [place] [address] PCP - General Family Medicine 08/08/21 08/30/21 Tamika Loomis, CARE PROVIDER [address] [place] [address] PCP - General Family Medicine 08/31/21 09/14/21 Maegan Bermeo MD [address] [place] [address] PCP - General Family Medicine 09/15/21 Audra Wahl LPN [employer] [address] TCM Nurse 09/27/21 10/27/21 Jessa Park LPN [employer] [address] Registered Nurse 05/26/22 05/26/22 documented as of this encounter
--- NOTE | 2024-10-17 19:30 | ED_ITS ---
Discharge Plan Disposition Chief Complaint: Dizziness Prescriptions Prescriptions: No Action ferrous sulfate [Feosol] 325 mg (65 mg iron) tablet 325 mg PO Q OTHER DAY Qty: 30 3RF nystatin 100,000 unit/gram powder 1 applic topical BID PRN acetaminophen [Tylenol Extra Strength] 500 mg tablet 1,000 mg PO Q6H PRN zolpidem [Ambien] 5 mg tablet 5 mg PO HS PRN (Reason: sleep) Qty: 30 0RF atorvastatin 40 mg tablet 40 mg PO HS Qty: 90 1RF pantoprazole 40 mg tablet,delayed release (DR/EC) 40 mg PO HS Qty: 90 1RF mupirocin 2 % ointment 1 applic topical BID 14 Days Qty: 22 1RF tirzepatide 5 mg/0.5 mL pen injector 5 mg SQ WEEKLY Qty: 2.5 2RF aspirin 81 mg tablet,delayed release (DR/EC) See Rx Instructions .ROUTE .COMPLEX Qty: 90 3RF Dose Instruction: TAKE 1 TABLET BY MOUTH ONCE DAILY Rx Instructions: TAKE 1 TABLET BY MOUTH ONCE DAILY dapagliflozin propanediol [Farxiga] 10 mg tablet See Rx Instructions .ROUTE .COMPLEX Qty: 90 3RF Dose Instruction: TAKE 1 TABLET BY MOUTH ONCE DAILY Rx Instructions: TAKE 1 TABLET BY MOUTH ONCE DAILY metoprolol succinate 25 mg tablet extended release 24 hr See Rx Instructions .ROUTE .COMPLEX Qty: 90 3RF Dose Instruction: TAKE 1 TABLET BY MOUTH DAILY Rx Instructions: TAKE 1 TABLET BY MOUTH DAILY duloxetine 60 mg capsule,delayed release(DR/EC) See Rx Instructions .ROUTE .COMPLEX Qty: 90 3RF Dose Instruction: TAKE 1 CAPSULE BY MOUTH ONCE DAILY Rx Instructions: TAKE 1 CAPSULE BY MOUTH ONCE DAILY famotidine 20 mg tablet See Rx Instructions .ROUTE .COMPLEX Qty: 90 3RF Dose Instruction: TAKE 1 TABLET BY MOUTH ONCE DAILY Rx Instructions: TAKE 1 TABLET BY MOUTH ONCE DAILY sennosides-docusate sodium [Senexon-S] 8.6-50 mg tablet See Rx Instructions .ROUTE .COMPLEX Qty: 90 3RF Dose Instruction: TAKE 1 TABLET BY MOUTH EVERY NIGHT AT BEDTIME Rx Instructions: TAKE 1 TABLET BY MOUTH EVERY NIGHT AT BEDTIME melatonin 5 mg tablet See Rx Instructions .ROUTE .COMPLEX Qty: 90 3RF Dose Instruction: TAKE 1 TABLET BY MOUTH EVERY NIGHT AT BEDTIME Rx Instructions: TAKE 1 TABLET BY MOUTH EVERY NIGHT AT BEDTIME Entresto 24-26 mg tablet See Rx Instructions .ROUTE .COMPLEX Qty: 90 3RF Dose Instruction: TAKE 1 TABLET BY MOUTH TWICE DAILY Rx Instructions: TAKE 1 TABLET BY MOUTH TWICE DAILY Eliquis 5 mg tablet See Rx Instructions .ROUTE .COMPLEX Qty: 60 6RF Dose Instruction: TAKE 1 TABLET BY MOUTH TWICE DAILY Rx Instructions: TAKE 1 TABLET BY MOUTH TWICE DAILY bumetanide 1 mg tablet See Rx Instructions .ROUTE .COMPLEX Qty: 30 6RF Dose Instruction: TAKE 1 TABLET BY MOUTH ONCE DAILY Rx Instructions: TAKE 1 TABLET BY MOUTH ONCE DAILY nortriptyline 25 mg capsule See Rx Instructions .ROUTE .COMPLEX Qty: 30 6RF Dose Instruction: TAKE 1 CAPSULE BY MOUTH EVERY NIGHT AT BEDTIME Rx Instructions: TAKE 1 CAPSULE BY MOUTH EVERY NIGHT AT BEDTIME spironolactone 25 mg tablet See Rx Instructions .ROUTE .COMPLEX Qty: 90 3RF Dose Instruction: TAKE 1 TABLET BY MOUTH DAILY Rx Instructions: TAKE 1 TABLET BY MOUTH DAILY Referrals Follow up/Referrals: Luiz Sage DO [Primary Care Provider, Family Practice] - See instructions Print Language Print Language: Israeli Discharge ED Provider: Bryson Gaston General Adult HPI General Chief complaint: Dizziness Stated complaint: Low B/P 66/[address] Valdez Time Seen by Provider: 10/17/24 17:58 Mode of Arrival: Wheelchair Source of Information: Patient and Relative Description of Symptoms (Recalled from ER Triage Doc. by RN): PT PRESENTS TO THE ER FOR DIZZINESS THAT HAS BEEN GOING ON FOR A MONTH, PT WAS ADMITTED TO [facility] 09/15-09/20 FOR HEART ISSUES AND WAS SUPPOSED TO BE GOING TO A LONG TERM TODAY FOR REHAB BUT FAMILY STATES BP IS LOW AND PT ALMOST PASSES OUT EACH TIME SHE STANDS UP SO THEY BROUGHT HER IN TO BE SEEN, DAUGHTER STATES [facility] HAS BEEN CHANGING PT'S BP MEDS A LOT OVER THE LAST WEEK, DAUGHTER ALSO STATES PT HAS HAD INCREASED SHORTNESS OF BREATH, PT DENIES ANY PAIN AT THIS TIME History of Present Illness HPI narrative: Patient is a 69-year-old female with past medical history of severe tricuspid regurgitation who was deemed not a surgical candidate by [facility] released back to Dr. Carreno here, recently started on pulmonary antihypertensives that have not been well-tolerated, modification of her diuresis regimen over the last month, cirrhosis of the liver who presents to the emergency department for evaluation of dizziness and acute on chronic shortness of breath and functional decline. History is obtained by patient and family members at bedside, patient has had a subacute decline over the last 4 weeks which has gotten much worse as of late. She is not a surgical candidate for her tricuspid valve she has severe right ventricular dilatation with reduction in RV function biatrial dilatation, there is normal LV systolic function, she has severe tricuspid regurgitation with a markedly elevated RVSP of greater than 60 mm per her recent echocardiogram. She denies chest pain, there were send here at the behest of Dr. Valdez to see about goals of care versus investigation versus maximal medical therapy. No other acute complaints at this time. Please note that above description of symptoms, in this electronic medical record under categorization of recalled from ER triage doctor by RN are reflective of an initial nursing assessment, however, is not reflective of my full history and physical exam that was personally taken and clarified. Consequentially, this preceding description of symptoms, which may include the patient's categorized chief complaint in the EMR, do not reflect my personal clinical impression, and the ultimate description of history of present illness and patient stated complaints should be deferred to this section of the note. Unless stated otherwise or congruent with this section of the note, additional signs, symptoms, or incongruence should be interpreted as inaccurate with my clinical impression. Related Data Home Medications ?Medication ?Instructions ?Recorded ?Confirmed acetaminophen 500 mg tablet 1,000 mg PO Q6H PRN 10/02/24 (Tylenol Extra Strength) nystatin 100,000 unit/gram topical 1 applic topical BI D PRN 09/30/24 10/02/24 powder Previous Rx's ?Medication ?Instructions ?Recorded atorvastatin 40 mg tablet 40 mg PO HS #90 tabs 5 pantoprazole 40 mg tablet,delayed 40 mg PO HS #90 tabs 06/09/24 release mupirocin 2 % topical ointment 1 applic topical BID in fection 14 07/02/24 days #22 grams tirzepatide 5 mg/0.5 mL 5 mg (0.5 mL) SQ WEEKLY #2.5 mL 07/22/24 subcutaneous pen injector zolpidem 5 mg tablet (Ambien) 5 mg PO HS PRN sleep #30 tabs 08/26/24 ferrous sulfate 325 mg (65 mg 325 mg PO Q OTHER DAY #3 0 tabs 09/26/24 iron) tablet (Feosol) apixaban 5 mg tablet (Eliquis) See Rx Instructions .[place] 10/16/24 .COMPLEX #60 tabs aspirin 81 mg tablet,delayed See Rx Instructions .Rout e 10/16/24 release .COMPLEX #90 tabs bumetanide 1 mg tablet See Rx Instructions .Route 0 10/16/24 .COMPLEX #30 tabs dapagliflozin propanediol 10 mg See Rx Instructions .R oute 10/16/24 tablet (Farxiga) .COMPLEX #90 tabs duloxetine 60 mg capsule,delayed See Rx Instructions . Route 10/16/24 release .COMPLEX #90 caps famotidine 20 mg tablet See Rx Instructions .Route 0 10/16/24 .COMPLEX #90 tabs melatonin 5 mg tablet See Rx Instructions .Route 0 10/16/24 .COMPLEX #90 tabs metoprolol succinate 25 mg See Rx Instructions .Route 10/16/24 tablet,extended release 24 hr .COMPLEX #90 tabs nortriptyline 25 mg capsule See Rx Instructions .Route 10/16/24 .COMPLEX #30 caps sacubitril 24 mg-valsartan 26 mg See Rx Instructions . Route 10/16/24 tablet (Entresto) .COMPLEX #90 tabs sennosides 8.6 mg-docusate sodium See Rx Instructions .Route 10/16/24 50 mg tablet (Senexon-S) .COMPLEX #90 tabs spironolactone 25 mg tablet See Rx Instructions .Route 10/16/24 .COMPLEX #90 tabs Allergies Allergy/AdvReac Type Severity Reaction Status Date / Time levofloxacin Allergy Verified 10/02/24 10:58 meperidine Allergy Verified 10/02/24 10:58 [facility] Disclaimer: The information contained in this section may have been updated after the patient was seen, as this information can be updated by other users. Medical History Abnormal abdominal CT scan Peripheral arterial disease Primary pulmonary hypertension Type 2 diabetes mellitus with foot ulcer UTI (urinary tract infection) Renal insufficiency Hyperkalemia Hypotension Hypertension CAD in [place] artery BMI 39.0-39.9,adult Chronic anemia Chronic anticoagulation Coronary artery disease Diabetes HFrEF (heart failure with reduced ejection fraction) Pulmonary hypertension Depression Constipation GERD (gastroesophageal reflux disease) Oxygen dependent Atrial fibrillation Surgical History Status post left heart catheterization Family History Other Alcohol abuse Family history of cancer Heart attack Social History Smoking Status: Never smoker alcohol intake: never current occupational status: unemployed Travel in the last 8 weeks?: None Have you lived/traveled outside US in past 30 days?: No Contact w/someone who lives/traveled outside US past 30 days?: No Exposure to someone with infectious disease in past 14 days?: No Do you have a fever (greater than 100.4 F or 38 C)?: No Have you tested positive for COVID-19?: No Exposed to someone with COVID-19 in past 14 days?: No Do you have a sore throat?: No Do you have a cough?: No Do you have any weakness?: No Do you have any diarrhea?: No Are you experiencing any unusual bleeding?: No Do you have any muscle aches/pain?: No Do you have any abdominal pain?: No Are you experiencing loss of taste or smell?: No Other Medical History Have you received the Flu Vaccine for this season: No Have you received the Pneumonia Vaccine: Yes ROS Obtained: Yes Systems reviewed as appropriate & no additional complaints except as documented Physical Exam General General appearance: alert Comment: Ill-appearing in bed Head Head exam: atraumatic and normocephalic Eye Eye exam: Present PERRL and EOMI ENT ENT exam: Present mucous membranes moist Neck Neck exam: Present normal inspection Chest Chest inspection: Present normal inspection and symmetric chest wall rise Respiratory Respiratory exam: Present normal lung sounds bilaterally; Absent respiratory distress Cardiovascular Cardiovascular exam: Present regular rate and normal rhythm Abdominal Exam Abdominal exam: Present distention; Absent tenderness Extremities Exam Extremities exam: Present normal inspection Neurological Exam Neurological exam: Present alert Psychiatric Psychiatric exam: Present normal affect Skin Skin exam: Present warm and dry Medical Decision Making Medical Records Screening: Per USPSTF and CDC recommendations, given the prevalence of disease in our region, it is our hospital?s policy to screen for HIV and viral Hepatitis for all patients aged 18 and over and those with ongoing risk factors. Abdifatah Inquiry Pt receiving controlled substance: No Vital Signs: 10/17/24 17:58 10/17/24 18:30 10/17/24 19:01 Temperature 98.0 F Temperature Source Oral Pulse Rate 63 62 Pulse Rate [Left Radial] 62 Respiratory Rate 16 17 16 Blood Pressure 82/45 L 94/76 L Blood Pressure [Right Radial Artery] 75/41 L Blood Pressure Mean 53 80 Blood Pressure Mean [Right Radial Artery] 52 Blood Pressure Source [Right Radial Artery] Automatic Cuff Blood Pressure Position [Right Radial Artery] Sitting 02 Sat by Pulse Oximetry 92 L 95 93 L Oxygen Delivery Method Nasal Cannula Nasal Cannula Oxygen Flow Rate (LPM) 4 4 ECG Data Tracing #1: Independently interpreted by me rate is 59, rhythm is regular, axis is normal, no ST elevation in anatomical contiguous leads, QTc 433. Medical Decision Narrative: In summary patient is a 69-year-old female with past medical history described above who presents emergency department for evaluation of severe functional decline in the setting of severe tricuspid regurgitation and right heart failure with associated pulmonary hypertension, suspected congestive hepatopathy, diagnosis of cirrhosis on multimodal medical therapy. Patient is hemodynamically unstable, hypotensive upon arrival, afebrile, protecting her airway on 4 L nasal cannula. I had prolonged discussion with patient, multiple family members at bedside over the course of an hour and a half. Multiple options were offered including full medical investigation here with transfer to [facility], full medical investigation here with admission here and medical management under Dr. Carreno, no medical investigation and medicine modif ications only, hospice care only. All questions were answered at length, patient wishes to not have any hematologic labs or imaging conducted in the emergency department and wishes to likely pursue hospice but does want the opinion of cardiology to at least see if any of her medications can be modified to prolong her life. Patient understands that we will not be conducting medical investigation today and transition to hospice and has capacity to make this decision. Given patient's acute decline it could be medicine related or worsening of her known pulmonary hypertension and heart failure. Given the severity of her disease and the fact that she understands the choices before her this is reasonable and patient has capacity. Case discussed with hospital medicine regarding management they will meet the patient to service for continued evaluation at this time and possible medical modification in the morning after discussion with cardiology on-call versus full coordination of hospice care only. It was also made clear to the patient that she can revoke this decision at any time and she voiced understanding. Critical Care Critical Care Time Critical Care Time: No
--- NOTE | 2024-10-17 20:15 | PC.NURSE ---
Patient arrived to floor via stretcher from ED at 20:10.
--- NOTE | 2024-10-17 20:18 | PC.NURSE ---
1957 Report was caled by Denzel RN, PT to come up on stretcher. ABRAHAM SOLIS RN
--- NOTE | 2024-10-17 22:02 | PC.NURSE ---
medication ordered Nortriptyline 25 mg is not available. Spoke With Patrick WALLS explained the situation to him. Wants to hold this medication due to availability. ABRAHAM SOLIS RN
--- NOTE | 2024-10-17 22:03 | P.HP_ITS ---
<Statement entered by Goldy Weir MD - 10/21/24 06:54> Patient symptomatology most consistent with cor pulmonale from pulmonary hypertension and cardiogenic shock with endorgan damage, renal insufficiency. Hypotension likely contributed by recent starting of tadalafil and macitentan, will hold this medication along with other BP medications. Discussed extensively with family, want to try medical management before considering hospice care. Started Levophed to help with hypotension, mitigate renal failure and allow tadalafil and macitentan to washout. History of Present Illness *Admission Date: 10/17/24 *Reason for visit:: Shortness of breath failure to thrive secondary to tricuspid valve *History of present illness: This is the ER doctors dictation directly below Patient is a 69-year-old female with past medical history of severe tricuspid regurgitation who was deemed not a surgical candidate by [facility] released back to Dr. Carreno here, recently started on pulmonary antihypertensives that have not been well-tolerated, modification of her diuresis regimen over the last month, cirrhosis of the liver who presents to the emergency department for evaluation of dizziness and acute on chronic shortness of breath and functional decline. History is obtained by patient and family members at bedside, patient has had a subacute decline over the last 4 weeks which has gotten much worse as of late. She is not a surgical candidate for her tricuspid valve she has severe right ventricular dilatation with reduction in RV function biatrial dilatation, there is normal LV systolic function, she has severe tricuspid regurgitation with a markedly elevated RVSP of greater than 60 mm per her recent echocardiogram. She denies chest pain, there were send here at the behest of Dr. Valdez to see about goals of care versus investigation versus maximal medical therapy. No other acute complaints at this time. Patient being placed on the floor for care and comfort at this point in time question whether hospice will be a decision for her at this point in time. The patient is no longer a surgical candidate to replace the valve.. Placed on the floor patient did not want any labs or intrusions.. Her wishes will be followed. Her medication can be looked at to see if anything can be adjusted to help improve her status. And then depending upon what the patient decides question hospice to be able to go home or needs long-term care. Have conferred with the nurse on the floor that if the patient needs anything to contact me we will try to provide it. [facility] Disclaimer: The information contained in this section may have been updated after the patient was seen, as this information can be updated by other users. Medical History Abnormal abdominal CT scan Peripheral arterial disease Primary pulmonary hypertension Type 2 diabetes mellitus with foot ulcer UTI (urinary tract infection) Renal insufficiency Hyperkalemia Hypotension Hypertension CAD in [place] artery BMI 39.0-39.9,adult Chronic anemia Chronic anticoagulation Coronary artery disease Diabetes HFrEF (heart failure with reduced ejection fraction) Pulmonary hypertension Depression Constipation GERD (gastroesophageal reflux disease) Oxygen dependent Atrial fibrillation Surgical History Status post left heart catheterization Family History Other Alcohol abuse Family history of cancer Heart attack Social History Smoking Status: Never smoker alcohol intake: never current occupational status: unemployed Travel in the last 8 weeks?: None Have you lived/traveled outside US in past 30 days?: No Contact w/someone who lives/traveled outside US past 30 days?: No Exposure to someone with infectious disease in past 14 days?: No Do you have a fever (greater than 100.4 F or 38 C)?: No Have you tested positive for COVID-19?: No Exposed to someone with COVID-19 in past 14 days?: No Do you have a sore throat?: No Do you have a cough?: No Do you have any weakness?: No Do you have any diarrhea?: No Are you experiencing any unusual bleeding?: No Do you have any muscle aches/pain?: No Do you have any abdominal pain?: No Are you experiencing loss of taste or smell?: No Other Medical History Have you received the Flu Vaccine for this season: No Have you received the Pneumonia Vaccine: No Review of Systems Review of Systems Review of systems:: pertinent systems reviewed and negative unless documented below Review of systems (narrative): Patient is alert oriented but basically bedridden Constitutional Constitutional: Reports as per HPI Eyes Eyes: Reports as per HPI ENT Ears, Nose, Mouth, and Throat: Reports as per HPI *Cardiovascular Comments: Presently is oxygen dependent *Respiratory Respiratory: Reports as per HPI *Gastrointestinal Gastrointestinal: Reports as per HPI *Genitourinary Genitourinary: Reports as per HPI *Musculoskeletal Musculoskeletal: Reports as per HPI Integumentary/Breasts Skin/Breast: Reports as per HPI *Neurologic Neurologic: Reports as per HPI Psychiatric Psychiatric: Reports as per HPI Endocrine Endocrine: Reports as per HPI Hematologic/Lymphatic Hematologic/Lymphatic: Reports as per HPI Allergic/Immunologic Allergic/Immunologic: Reports as per HPI Meds Home Medications and Allergies Home Medications ?Medication ?Instructions ?Recorded ?Confirmed ?Type acetaminophen 500 mg tablet 1,000 mg PO Q6H PRN Pain ( Scale 05/09/24 10/17/24 History (Tylenol Extra Strength) Score 1-3) atorvastatin 40 mg tablet 40 mg PO HS #90 tabs 5 10/17/24 Rx pantoprazole 40 mg tablet,delayed 40 mg PO HS #90 tabs 06/09/24 10/17/24 Rx release tirzepatide 5 mg/0.5 mL 5 mg (0.5 mL) SQ WEEKLY #2.5 mL 07/22/24 10/17/24 Rx subcutaneous pen injector zolpidem 5 mg tablet (Ambien) 5 mg PO HS PRN sleep #30 tabs 08/26/24 10/17/24 Rx ferrous sulfate 325 mg (65 mg 325 mg PO Q OTHER DAY #3 0 tabs 09/26/24 10/17/24 Rx iron) tablet (Feosol) nystatin 100,000 unit/gram topical 1 applic topical BI D PRN 09/30/24 10/17/24 History powder Excoriation apixaban 5 mg tablet (Eliquis) 5 mg PO BID 10/17/24 History aspirin 81 mg tablet,delayed 81 mg PO DAILY 10/17/24 0 10/17/24 History release bumetanide 1 mg tablet 2 mg PO BID 10/17/24 5 History dapagliflozin propanediol 10 mg 10 mg PO DAILY 5 10/17/24 History tablet (Farxiga) duloxetine 60 mg capsule,delayed 60 mg PO DAILY 10/17/24 History release famotidine 20 mg tablet 20 mg PO DAILY 10/17/2409/20 History macitentan 10 mg tablet (Opsumit) 10 mg PO DAILY 10/1710/17/24 History melatonin 5 mg tablet 5 mg PO HS 10/17/24 10/17/24 History nortriptyline 25 mg capsule 25 mg PO HS 10/17/2410/17 History sacubitril 24 mg-valsartan 26 mg 1 tab PO BID 10/17/24 10/17/24 History tablet (Entresto) sennosides 8.6 mg-docusate sodium 1 tab PO DAILY 10/1710/17/24 History 50 mg tablet (Senexon-S) spironolactone 25 mg tablet 25 mg PO DAILY 10/17/24 History tadalafil (pulm. hypertension) 20 20 mg PO DAILY 10/1710/17/24 History mg tablet (pulmonary hypertension) New Prescriptions to Start Prescriptions: Allergies Allergy/AdvReac Type Severity Reaction Status Date / Time levofloxacin Allergy Verified 10/02/24 10:58 meperidine Allergy Verified 10/02/24 10:58 Exam Data for Last 24 hours Vital signs and Labs for Last 24 Hours: Temp Pulse Resp BP Pulse Ox O2 Del Method O2 Flow Rate 97.9 F 60 12 80/49 L 97 Nasal Cannula 4 10/17/24 20:13 10/17/24 20:13 10/17/24 20:13 10/17/24 20:13 10/17/24 20:00 10/17/24 20:13 10/17/24 20:13 I & O for Last 24 hours: Intake & Output 10/15/24 10/16/24 10/17/24 10/18/24 05:59 05:59 05:59 05:59 Weight 227 lb 14.4 oz Radiology Reports for the Last 24 Hours: No scans or labs done Constitutional Constitutional: mild distress, obese, chronically ill appearing and cooperative *Routine HEENT Exam Head: Present normocephalic and atraumatic Eye: Present EOMI ENT: Present mucous membranes moist *Routine Neck Exam Neck: Present supple *Routine Respiratory Exam Respiratory: Present decreased breath sounds and able to speak in complete sentences Comments: Very decreased in all child patient presently on oxygen *Routine Cardiovascular Exam Cardiovascular: Present irregular rhythm Comments: Significant murmur present *Routine Abdominal Exam Abdominal: Present soft Comments: Patient had no pain or complaints of pain to the abdomen actually stated she was hungry *Routine Rectal Exam Rectal:: deferred *Routine Genitalia Exam Genitalia:: deferred *Routine Extremities Exam Extremities: Present full ROM and pulses intact *Routine Skin Exam Skin: Present intact and dry *Routine Neurological Exam Neurological: Present alert, oriented X3, CN II-XII intact and normal speech H&P: Result Impressions 1. Significant congestive heart failure related to tricuspid valve. Patient is not a candidate for surgery 2. End-of-life planning question whether hospice will be considered Assessment and Plan *Assessment and plan (1) Declining functional status: Status: Acute Category: Medical Code(s): R53.81 - Other malaise (2) Tricuspid regurgitation: Status: Acute Qualifiers: Cardiac valve disease etiology: etiology unspecified Qualified Code(s): I07.1 - Rheumatic tricuspid insufficiency Category: Medical Code(s): I07.1 - Rheumatic tricuspid insufficiency (3) Immobility: Status: Acute Category: Medical Code(s): Z74.09 - Other reduced mobility (4) Cardiomyopathy: Status: Chronic Qualifiers: Cardiomyopathy type: unspecified Qualified Code(s): I42.9 - Cardiomyopathy, unspecified Category: Medical Code(s): I42.9 - Cardiomyopathy, unspecified Plan 1. Patient will be placed on the floor for care and comfort at this time case management will be notified. Question whether the patient after being examined tomorrow question to adjust medications provide some comfort. Versus patient wanting to be placed on hospice. Patient's daughters were in the room all this was discussed openly while in the emergency room
[2024-10-17] MEDS: MELATONIN 5MG TABLET 5 MG PO (22:07)
[2024-10-18] VITALS (27 sets, daily range): BP systolic 64–121; BP diastolic 32–63; PULSE 56–82; RESP 8–22; TEMP 36.6–37.1; O2SAT 5–99; BMI 39.3
--- NOTE | 2024-10-18 03:19 | PC.NURSE ---
[id number] Phoned Patrick WALLS, I had been in to see this Lady and she was groaning in pain. I asked her if she is ok. She stated not she was in Pain. I asked her oin a scale of 0-10 how would your rate your pain. She said her pain was a 7. Orders to Follow per Apr. ABRAHAM SOLIS RN
[2024-10-18] MEDS: HYDROMORPHONE 2MG/ML SYRINGE 0.5 MG IV ×2 (03:34→13:53)
--- NOTE | 2024-10-18 08:47 | HMH.PHAINT1 ---
Pharmacy Intervention Comments: MEDICATION RECONCILIATION COMPLETED ON PATIENT USING EXTERNAL FILL HISTORY FROM PHARMACY. -AJ ESPINOZA, SELMAD
[2024-10-18 10:28] LABS: Hematocrit 30.3 % (37.0-47.0); Hemoglobin 9.1 g/dL (12.2-16.2); Immature Granulocytes % 0.3 %; Mean Corpuscular HGB Conc 30.0 g/dL (31.8-35.4); Mean Corpuscular Hemoglobin 22.0 pg (27.0-31.2); Mean Corpuscular Volume 73.2 fl (81-99); Nucleated Red Blood Cells % 0 %; Platelet Count 393 K/mm3 (142-424); Red Blood Count 4.14 M/mm3 (4.20-5.40); Red Cell Distribution Width-SD 61.9 fL; White Blood Count 10.0 K/mm3 (4.8-10.8)
[2024-10-18 10:38] LABS: Alanine Aminotransferase 64 U/L (12-78); Albumin Level 3.4 g/dl (3.5-5.0); Albumin/Globulin Ratio 1.0 (1.1-1.8); Alkaline Phosphatase 222 U/L (38-126); Anion Gap 14.1 mEq/L (5-15); Aspartate Amino Transferase 33 U/L (14-36); Bilirubin,Total 0.7 mg/dl (0.2-1.3); Calcium 8.8 mg/dl (8.4-10.2); Carbon Dioxide 26 mmol/L (22.0-30.0); Chloride 91 mmol/L (98-107); Creatinine Clearance Estimated 32 mL/min (50-200); Creatinine,Serum 2.70 mg/dl (0.52-1.04); Estimated Glomerular Filt Rate 17 ml/min (>60); GFR (African American) 21 ML/MIN (>60); Globulin 3.5 g/dL (1.3-3.2); Glucose 164 mg/dl (74-100); Magnesium 2.0 mg/dl (1.6-2.3); Potassium 5.1 mmoL/L (3.5-5.1); Sodium 126 mmol/L (136-145); Total Protein,Serum 6.9 g/dl (6.3-8.2)
[2024-10-18 10:47] LABS: Blood Urea Nitrogen 120 mg/dl (7-17)
--- NOTE | 2024-10-18 10:47 | PC.NURSE ---
Lab called with critical lab value: BUN 120. notified.
--- NOTE | 2024-10-18 10:52 | PC.NURSE ---
Unable to obtain O2 saturation with pulse ox on finger despite multiple attempts, pulse ox applied to forehead, O2 sats obtained at 98% on 2L NC. Removed O2 at 1050 for room air O2 saturation. Patient denies shortness of air/chest pain at this time.
[2024-10-18 12:00] LABS: Thyroid Stimulating Hormone 0.74 uIU/mL (0.465-4.68)
[2024-10-18] MEDS: LACTATED RINGERS 1000ML 500 ML 250 ML IV (12:26)
[2024-10-18] MEDS: ONDANSETRON 4MG/2ML VIAL 4 MG IV ×2 (14:18→22:41)
[2024-10-18 17:10] LABS: Albumin Level 3.3 g/dl (3.5-5.0); Chloride 95 mmol/L (98-107); Potassium 5.5 mmoL/L (3.5-5.1); Sodium 126 mmol/L (136-145)
[2024-10-18 17:12] LABS: Creatinine Clearance Estimated 33 mL/min (50-200); Creatinine,Serum 2.60 mg/dl (0.52-1.04); Estimated Glomerular Filt Rate 18 ml/min (>60); GFR (African American) 22 ML/MIN (>60)
[2024-10-18 17:13] LABS: Alanine Aminotransferase 54 U/L (12-78); Albumin/Globulin Ratio 1.1 (1.1-1.8); Alkaline Phosphatase 198 U/L (38-126); Anion Gap 11.5 mEq/L (5-15); Aspartate Amino Transferase 34 U/L (14-36); Bilirubin,Total 0.5 mg/dl (0.2-1.3); Calcium 8.8 mg/dl (8.4-10.2); Carbon Dioxide 25 mmol/L (22.0-30.0); Globulin 3.1 g/dL (1.3-3.2); Glucose 156 mg/dl (74-100); Total Protein,Serum 6.4 g/dl (6.3-8.2)
--- NOTE | 2024-10-18 17:19 | EXP.PN ---
Subjective *Date: 10/18/24 *Time: 17:39 Interval history: Patient states she feels well in spite of being hypotensive with significant renal failure. Will move to ICU and start Levophed, midodrine. Exam Data for Last 24 hours Vital signs and Labs for Last 24 Hours: Temp Pulse Resp BP Pulse Ox O2 Del Method O2 Flow Rate 98.5 F 59 L 16 77/33 L 88 L Nasal Cannula 2 10/18/24 16:00 10/18/24 16:10/18/24 16:10/18/24 16:10/18/24 16:10/18/24 16:00 10/18/24 16:00 Laboratory Results - last 24 hr 10/18/24 10:00: WBC 10.0, RBC 4.14 L, Hgb 9.1 L, Hct 30.3 L, MCV 73.2 L, MCH 22.0 L, MCHC 30.0 L, RDW 24.2 H, Plt Count 393, MPV 10.7 H, Neut % (Auto) 71.0, Lymph % (Auto) 11.1, [place] % (Auto) 13.2 H, Eos % (Auto) 3.7, Baso % (Auto) 0.7, Neut # (Auto) 7.1, Lymph # (Auto) 1.1, [place] # (Auto) 1.3 H, Eos # (Auto) 0.4, Baso # (Auto) 0.1, Sodium 126 L, Potassium 5.1, Chloride 91 L, Carbon Dioxide 26, Anion Gap 14.1, BUN 120 H*, Creatinine 2.70 H, Estimated Creat Clear 32, Estimated GFR 17 L*, Est GFR ( Amer) 21 L, Glucose 164 H, Calcium 8.8, Magnesium 2.0, Total Bilirubin 0.7, AST 33, ALT 64, Alkaline Phosphatase 222 H, Total Protein 6.9, Albumin 3.4 L, Globulin 3.5 H, Albumin/Globulin Ratio 1.0 L, TSH 0.74 I & O for Last 24 hours: Intake & Output 10/15/24 10/16/24 10/17/24 10/18/24 23:59 23:59 23:59 23:59 Intake Total 820 / 820 Output Total 1100 / 1100 Balance -280 / -280 Weight 103.374 kg 104.508 kg Constitutional Constitutional: no acute distress and obese *Routine HEENT Exam Head: Present normocephalic Eye: Present EOMI and PERRL ENT: Present mucous membranes moist *Routine Neck Exam Neck: Present supple; Absent lymphadenopathy *Routine Respiratory Exam Respiratory: Present CTA bilaterally *Routine Cardiovascular Exam Cardiovascular: Present RRR *Routine Abdominal Exam Abdominal: Present soft and normoactive bowel sounds; Absent tenderness *Routine Extremities Exam Extremities: Absent cyanosis, clubbing or edema *Routine Skin Exam Skin: Present warm; Absent rash *Routine Neurological Exam Neurological: Present alert and oriented X3 Assessment and Plan *Assessment and plan (1) Tricuspid regurgitation: Status: Acute Qualifiers: Cardiac valve disease etiology: etiology unspecified Qualified Code(s): I07.1 - Rheumatic tricuspid insufficiency Category: Medical Code(s): I07.1 - Rheumatic tricuspid insufficiency (2) Hypertension: Status: Acute Category: Medical Code(s): I10 - Essential (primary) hypertension Plan Rica Flannery is a 69-year-old female with a medical history significant for severe right heart failure/cor pulmonale from pulmonary hypertension, asplenia, paroxysmal A-fib, CAD, type 2 diabetes, anxiety/depression, GERD presents with dizziness, exercise intolerance for the past month and was admitted for further evaluation of the same. #Hypotension #WALE on CKD #Uremia #Medication side effect #History of pulmonary hypertension ? Patient has underlying pulmonary hypertension, likely related to undiagnosed sleep apnea. See separate problem. ? Has recently been started on tadalafil, macitentan a few days ago by [facility] bolter helper. Unfortunately, I believe these medications along with patient's other antihypertensives have caused significant hypotension causing renal failure. ? BP today around 80s over 40s. Initial creatinine 2.7, BUN 120. LFTs stable. ? Given gentle 500 mL bolus without significant improvement. Orthostatics normal. Thus, we will move to ICU, start Levophed, midodrine. ? Started Levophed at 5 mcg/h, titrate for MAP >65. ? Started midodrine 5 mg 3 times daily. ? Hold home bumetanide, Farxiga, metoprolol, Entresto, spironolactone, tadalafil, macitentan. ? TSH normal. Follow-up morning cortisol. ? Follow-up CXR, UA, blood cultures to rule out infection. ? Follow-up morning CBC, CMP. #Pulmonary hypertension #Severe RV failure/cor pulmonale #Severe tricuspid regurgitation ? Presented with dizziness, exercise intolerance over the past month. Evaluated by [facility] recently for consideration of prior clip for severe tricuspid regurgitation however she was not a good candidate. ? ECHO August 2024 shows markedly elevated RVSP >60 mmHg, severe RV dilatation with failure. ? Has underlying pulmonary hypertension, has not been evaluated for sleep apnea or sleep study. His weight coming up annual well in November 2024. ? Hold home bumetanide, Farxiga, metoprolol, Entresto, spironolactone, tadalafil, macitentan due to hypotension and renal failure. ? Patient needs a sleep study KOBE After discharge. #History of asplenia ? Hypotensive, follow-up infectious workup as above. #Physical deconditioning #Depression ? Patient's recently. ? Continue home duloxetine 60 mg daily, nortriptyline 25 mg daily. Will benefit from outpatient therapy. Chronic medical problems: #Paroxysmal A-fib ? Currently rate controlled. ? Continue home Eliquis 5 mg twice daily. Hold home metoprolol due to hypotension. #CAD ? Continue home aspirin, statin. DNR/DNI DVT prophylaxis: Eliquis
[2024-10-18 17:22] LABS: Blood Urea Nitrogen 120 mg/dl (7-17)
--- NOTE | 2024-10-18 17:40 | XR_ITS ---
PROCEDURE INFORMATION: Exam: XR Chest Exam date and time: 10/18/2024 6:22 PM Age: 69 years old Clinical indication: Other: Infectious workup, hypertension TECHNIQUE: Imaging protocol: Radiologic exam of the chest. Views: 1 view. COMPARISON: CT ANGIO CHEST PE PROTOCOL 09/04/2024 6:59 AM FINDINGS: Lungs: Pulmonary vascular congestion/enlargement, this is a known finding and best seen on the reference CT. Mild perihilar streaky opacities. Increased density in the left lung base. Pleural spaces: Blunting of the left costophrenic angle. Heart/Mediastinum: Moderate cardiomegaly. Vasculature: Calcified aortic knob. Bones/joints: Severe osteoarthritis of the right glenohumeral joint. IMPRESSION: Known pulmonary arterial prominence/likely pulmonary arterial hypertension with concern for perihilar congestive changes and perhaps left basal airspace disease with a trace effusion versus artifact from superimposition of structures. Developing left basal pneumonia would be in the differential diagnosis. Consider correlation with CT if warranted.
--- NOTE | 2024-10-18 18:06 | HMH.PTEV ---
Physical Therapy Evaluation Rehab PT IP Evaluation Start: 10/17/24 22:36 Freq: ONCE Status: Active Protocol: Document 10/18/24 17:54 MOHSENDAJA (Rec: 10/18/24 18:06 COLLIN [id number]) Subjective/History History History Per H&P, Patient is a 69-year-old female with past medical history of severe tricuspid regurgitation who was deemed not a surgical candidate by [facility] released back to Dr. Carreno here, recently started on pulmonary antihypertensives that have not been well-tolerated, modification of her diuresis regimen over the last month, cirrhosis of the liver who presents to the emergency department for evaluation of dizziness and acute on chronic shortness of breath and functional decline. History is obtained by patient and family members at bedside, patient has had a subacute decline over the last 4 weeks which has gotten much worse as of late. She is not a surgical candidate for her tricuspid valve she has severe right ventricular dilatation with reduction in RV function biatrial dilatation, there is normal LV systolic function, she has severe tricuspid regurgitation with a markedly elevated RVSP of greater than 60 mm per her recent echocardiogram. She denies chest pain, there were send here at the behest of Dr. Valdez to see about goals of care versus investigation versus maximal medical therapy. No other acute complaints at this time. Patient being placed on the floor for care and comfort at this point in time question whether hospice will be a decision for her at this point in time. The patient is no longer a surgical candidate to replace the valve. . Placed on the floor patient did not want any labs or intrusions.. Her wishes will be followed. Her medication can be looked at to see if anything can be adjusted to help improve her status. And then depending upon what the patient decides question hospice to be able to go home or needs long-term care. Have conferred with the nurse on the floor that if the patient needs anything to contact me we will try to provide it. Subjective Subjective Pt reclined in bed upon arrival eating dinner with daughter present. Pt and daughter helped to provide subjective history. Pt alert and oriented x4. Pt reports that she has had a rapid decline in the past 4 weeks. Reports that she was using a rollator walker for most mobility but has transitioned to using a transport chair to scoot around in. Pt and pt's daughter report that she was ind with dressing and has no stairs in the home or to enter the home. Pt denies falls. New diagnosis of No cancer in past 12 months? [facility] How much help from another person do you currently need... Turning from your A little back to your side while in a flat bed without using bedrails? Moving from lying on A little back to sitting on the side of a flat bed without using bedrails? Moving to and from a A lot bed to a chair ( including a wheelchair)? Standing up from a A little chair using your arms? (e.g., wheelchair, bedside chair) Walking in hospital A lot room? Climbing 3-5 steps A lot with a railing? Mobility Score [address] [facility] Mobility 4 Move to chair/commode Mobility Calculator Rehab PT IP Eval Objective Appearance Patient Behavior Appropriate,Patient Baseline Patient Orientation Person,Place,Time Difficulty following none instructions Speech Pattern Clear Ambulation Patient Able to Yes Ambulate Ambulation Observation IP General Gait Shuffling Step Pattern Observation Ambulation Distance 3 (feet) Ambulation Assistive Rolling Walker Device Ambulation Ability Minimal x 1 (25% assist) Balance Ability to Arise Able, uses arms to help Sitting Balance Steady, safe Standing Balance Steady, wide stance Dynamic Sitting Fair Balance Ability Dynamic Standing Poor Balance Ability Transfers Bed Transfer Ability Minimal x 1 (25% assist) Chair Transfer Minimal x 1 (25% assist) Ability Sit to Stand Bed Minimal x 1 (25% assist) Transfer Ability Sit to Stand Chair Minimal x 1 (25% assist) Transfer Ability Rehab PT IP prob,goals,plan Problems Date of Evaluation: 10/18/24 PT IP Problems Bed Mobility,Transfers,Gait,Balance,Self care,Safety Rehab Potential Rehab Potential Fair Equipment Needs Assistive Devices None / NA Plan PT Intervention Plan Bed Mobility,Transfers,Gait,Balance,Self care,Safety, Therapeutic Exercise PT Plan Frequency Daily Duration LOS Discharge Goals Bed Transfer Ability Supervision/Stand by Sit to Stand Chair Supervision/Stand by Transfer Ability Ambulation Assistive Rolling Walker Device Ambulation Distance 40 (feet) Discharge Plan PT Discharge Plan PT is recommending discharge to SNF when deemed medically stable for discharge from the hospital. Pt would also benefit from skilled PT during her acute stay to address her mobility impairments and to promote a return to her PLOF. Eval Complexity Eval Charge Codes 48256 - High Complexity PHYSICIAN CERTIFICATION: I certify the specified therapy services for Rica Dahl are required, authorized, and reviewed every 30 days.
--- NOTE | 2024-10-18 18:19 | PC.NURSE ---
Pt arrived to the ICU with med surg staff at this time
[2024-10-18 18:21] LABS: C-Reactive Protein 35.4 mg/L (0-4)
[2024-10-18 18:33] LABS: Procalcitonin 0.263 ng/mL (0.0-2.0)
--- NOTE | 2024-10-18 18:36 | PC.NURSE ---
MD asked to come to bedside. Family wanted to speak with him due to change in patient status and, don't know what is going on .
[2024-10-18] MEDS: MIDODRINE HCL 5 MG TABLET PO ×2 (18:45→21:18)
[2024-10-18 18:47] LABS: POC Glucose,Bedside 190 gm/dL (70-110)
--- NOTE | 2024-10-18 18:47 | PC.NURSE ---
CALLED REPORT TO ANGELIQUE SMITH. PATIENT WAS TRANSPORTED BY BED BY [facility]. PATIENTS DAUGHTER STAYED BEHIND TO ASK THIS NURSE QUESTIONS ABOUT THE PATIENTS TREATMENT PLAN, THE DAUGHTER WAS UPDATED REGARDING THE CURRENT PLAN OF CARE BUT STATED MULTIPLE TIMES THAT SHE THOUGHT THE PATIENT WAS GOING TO BE CONSIDERED FOR HOSPICE AND DOES NOT UNDERSTAND WHY WE ARE CONTINUING WITH TREATMENT. THE DAUGHTER WAS INFORMED BY THIS NURSE THAT SHE WOULD NEED TO WAIT IN THE ICU WAITING AREA UNTIL THE PATIENT WAS SITUATED IN HER ROOM, THE DAUGHTER STATED IM NOT DOING THAT , AND PERSISTENTLY STATED THAT SHE WAS NOT GOING TO WAIT, THIS NURSE INFORMED THE ICU NURSE OF THE SITUATION VIA UNIT INTERCOM.
[2024-10-18 19:38] LABS: Adenovirus,PCR Not Detected (NotDetected); Chlamydophila Pneumoniae, PCR Not Detected (NotDetected); Coronavirus 19, PCR Not Detected (NotDetected); Coronovirus HKU1,PCR Not Detected (NotDetected); Influenza A, PCR Not Detected (NotDetected); Influenza AH1, 2009 Not Detected (NotDetected); Influenza AH1, PCR Not Detected (NotDetected); Influenza AH3,PCR Not Detected (NotDetected); Influenza B, PCR Not Detected (NotDetected); Mycoplasma Pneumoniae, PCR Not Detected (NotDetected); Parainfluenza 1, PCR Not Detected (NotDetected); Parainfluenza 2, PCR Not Detected (NotDetected); Parainfluenza 3, PCR Not Detected (NotDetected); Parainfluenza 4, PCR Not Detected (NotDetected)
[2024-10-18 20:00] LABS: NT Pro Brain Natriuretic Pep. 6770 pg/mL (0-125)
[2024-10-18 20:00] LABS: Microscopic, Urine URINE MICROSCOPIC (MICROSCOPIC)
[2024-10-18 20:03] LABS: Bilirubin,Urine Negative (Negative); Color,Urine YELLOW (Yellow); Glucose,Urine (UA) 1+ (Negative); Ketones,Urine Negative (Negative); Leukocyte Esterase,Urine 2+ (Negative); PH,Urine 5.5 (5.0-8.5); Protein,Urine Negative (Negative); Specific Gravity, Urine 1.010 (1.005-1.030); Urobilinogen,Urine 0.2 EU/dl (0.2)
[2024-10-18 20:03] LABS: Troponin I 0.03 ng/ml (0.00-0.034)
[2024-10-18 20:31] LABS: Bacteria,Urine 2+ /lpf; WBC,Urine 20-50 #/hpf (0-3)
[2024-10-18 20:39] LABS: POC Glucose,Bedside 216 gm/dL (70-110)
[2024-10-18] MEDS: MELATONIN 5MG TABLET 5 MG PO (21:17)
[2024-10-18] MEDS: PANTOPRAZOLE 40MG TABLET 40 MG PO (21:17)
[2024-10-18] MEDS: APIXABAN 5MG TABLET 5 MG PO (21:18)
[2024-10-18] MEDS: humaLOG 100 UNITS/ML 10ML VIAL (SSI) SUBCUT (21:21)
[2024-10-18] MEDS: NOREPINEPHRINE BITARTRATE/D5W 8 MG/250 ML PLAST..BAG 15 MG IV (22:12)
[2024-10-18] MEDS: MORPHINE 2MG/ML SYRINGE 1 MG IV (22:33)
[2024-10-19] VITALS (31 sets, daily range): BP systolic 75–137; BP diastolic 36–94; PULSE 63–93; RESP 12–21; TEMP 36.4–37.2; O2SAT 88–95; BMI 39.5
[2024-10-19] MEDS: ACETAMINOPHEN 325MG TAB 650 MG PO ×3 (00:51→17:00)
[2024-10-19] MEDS: MORPHINE 2MG/ML SYRINGE 1 MG IV (05:35)
[2024-10-19] MEDS: humaLOG 100 UNITS/ML 10ML VIAL (SSI) SUBCUT ×3 (05:35→17:00)
[2024-10-19 05:38] LABS: POC Glucose,Bedside 209 gm/dL (70-110)
[2024-10-19 08:34] LABS: Hematocrit 32.0 % (37.0-47.0); Hemoglobin 9.5 g/dL (12.2-16.2); Immature Granulocytes % 1.0 %; Mean Corpuscular HGB Conc 29.7 g/dL (31.8-35.4); Mean Corpuscular Hemoglobin 21.8 pg (27.0-31.2); Mean Corpuscular Volume 73.6 fl (81-99); Nucleated Red Blood Cells % 0 %; Platelet Count 398 K/mm3 (142-424); Red Blood Count 4.35 M/mm3 (4.20-5.40); Red Cell Distribution Width-SD 62.6 fL; White Blood Count 16.5 K/mm3 (4.8-10.8)
[2024-10-19 08:50] LABS: INR 1.07 (0.9-1.1); Prothrombin Time 11.8 seconds (10.1-12.5)
[2024-10-19] MEDS: MIDODRINE HCL 5 MG TABLET PO ×2 (08:54→10:07)
[2024-10-19] MEDS: APIXABAN 5MG TABLET 5 MG PO ×2 (08:54→21:33)
[2024-10-19] MEDS: CEFTRIAXONE 1 GM 1 GM in 0.9 % SODIUM CHLORIDE 50 ML IV (08:55)
[2024-10-19] MEDS: ASPIRIN EC 81MG TABLET 81 MG PO (08:55)
[2024-10-19 09:02] LABS: Alanine Aminotransferase 57 U/L (12-78); Albumin Level 3.8 g/dl (3.5-5.0); Albumin/Globulin Ratio 1.0 (1.1-1.8); Alkaline Phosphatase 235 U/L (38-126); Anion Gap 15.5 mEq/L (5-15); Aspartate Amino Transferase 37 U/L (14-36); Bilirubin,Total 0.9 mg/dl (0.2-1.3); Calcium 9.4 mg/dl (8.4-10.2); Carbon Dioxide 24 mmol/L (22.0-30.0); Chloride 97 mmol/L (98-107); Creatinine Clearance Estimated 45 mL/min (50-200); Creatinine,Serum 1.90 mg/dl (0.52-1.04); Estimated Glomerular Filt Rate 26 ml/min (>60); GFR (African American) 32 ML/MIN (>60); Globulin 3.7 g/dL (1.3-3.2); Glucose 178 mg/dl (74-100); Magnesium 2.0 mg/dl (1.6-2.3); Potassium 5.5 mmoL/L (3.5-5.1); Sodium 131 mmol/L (136-145); Total Protein,Serum 7.5 g/dl (6.3-8.2)
[2024-10-19 09:05] LABS: Blood Urea Nitrogen 114 mg/dl (7-17)
[2024-10-19] MEDS: TIZANIDINE 4MG TABLET 2 MG PO ×3 (10:01→19:31)
[2024-10-19 10:34] LABS: Anisocytosis 2+; Poikilocytosis 2+; RBC Morphology Normal; Total Cells Counted 100
[2024-10-19 10:35] LABS: Burr Cells 1+; Hypochromasia 1+; Target Cells 1+
[2024-10-19 11:18] LABS: POC Glucose,Bedside 222 gm/dL (70-110)
[2024-10-19] MEDS: NOREPINEPHRINE BITARTRATE/D5W 8 MG/250 ML PLAST..BAG 18.75 MG IV (11:31)
--- NOTE | 2024-10-19 12:10 | PC.NURSE ---
pt up to the side of the bed to eat lunch.
[2024-10-19] MEDS: MIDODRINE HCL 5 MG TABLET 10 MG PO (12:29)
--- NOTE | 2024-10-19 15:16 | PC.NURSE ---
upon entering room to round on patient, pt noted to be picking at nose and nose to be bleeding. Respiratory called for humidification to be added to oxygen. pt currently on 5LNC.
--- NOTE | 2024-10-19 15:45 | PC.NURSE ---
Dr. Weir at bedside speaking with patient and her daughter.
--- NOTE | 2024-10-19 15:55 | PC.NURSE ---
Dr. Weir and patients daughter to nurses station. per MD Gann drip to be started.
[2024-10-19] MEDS: MILRINONE LACTATE 20 MG in 0.9 % SODIUM CHLORIDE 80 ML 3.94 MG IV (16:24)
[2024-10-19 16:43] LABS: POC Glucose,Bedside 186 gm/dL (70-110)
--- NOTE | 2024-10-19 16:44 | PC.NURSE ---
attempted to call [facility] to obtain medical records. brine mixer operator stated that medical records is closed but that she could send me to patient support, no one answered.
--- NOTE | 2024-10-19 17:26 | EXP.PN ---
Subjective *Date: 10/19/24 *Time: 17:26 Interval history: Patient was weak this morning, hurting all over. Improved with testing. Doing better this afternoon after taking a nap, but continues to require IV pressors. Discussed goals of care with family, will trial milrinone and Cialis and if not viable will consider hospice care. Exam Data for Last 24 hours Vital signs and Labs for Last 24 Hours: Temp Pulse Resp BP Pulse Ox O2 Del Method O2 Flow Rate 98.6 F 67 16 123/69 92 L Nasal Cannula 5 10/19/24 16:06 10/19/24 16:06 10/19/24 16:06 10/19/24 16:06 10/19/24 16:06 10/19/24 16:50 10/19/24 16:50 Laboratory Results - last 24 hr 10/18/24 17:00: C-Reactive Protein 35.4 H, Procalcitonin 0.263 10/18/24 18:12: Lactate 1.2, Troponin I 0.03, NT-Pro-B Natriuret Pep 6770 H 10/18/24 18:40: POC Glucose 190 H 10/18/24 18:57: Chlamy pneumoniae PCR Not detected, Adenovirus (PCR) Not detected, B. pertussis DNA (PCR) Not detected, Coronavirus OC43 (PCR) Not detected, Coronavirus HKU1 (PCR) Not detected, Coronavirus 229E (PCR) Not detected, SARS-CoV-2 (PCR) Not detected, Coronavirus NL63 (PCR) Not detected, Human Metapneumovir PCR Not detected, Influenza A (H1) PCR Not detected, Influ A (H1N1/09) PCR Not detected, Influenza A (H3) PCR Not detected, Influenza Type A (PCR) Not detected, Influenza Type B (PCR) Not detected, M. pneumoniae (PCR) Not detected, Parainfluenza 1 (PCR) Not detected, Parainfluenza 2 (PCR) Not detected, Parainfluenza 3 (PCR) Not detected, Parainfluenza 4 (PCR) Not detected, RSV (PCR) Not detected, Entero/Rhino (PCR) Not detected 10/18/24 19:52: Urine Color Yellow, Urine Appearance Clear, Urine pH 5.5, Ur Specific [place] 1.010, Urine Protein Negative, Urine Glucose (UA) 1+, Urine Ketones Negative, Urine Blood 1+ A, Urine Nitrate Negative, Urine Bilirubin Negative, Urine Urobilinogen 0.2, Ur Leukocyte Esterase 2+ A, Urine RBC 5-10, Urine WBC 20-50, Ur Squamous Epith Cells 3-5, Urine Bacteria 2+ 10/18/24 20:31: POC Glucose 216 H 10/19/24 05:31: POC Glucose 209 H 10/19/24 08:00: WBC 16.5 H D, RBC 4.35, Hgb 9.5 L, Hct 32.0 L, MCV 73.6 L, MCH 21.8 L, MCHC 29.7 L, RDW 24.5 H, Plt Count 398, MPV 10.6 H, Neut % (Auto) 81.8 H, Lymph % (Auto) 3.5 L, [place] % (Auto) 13.3 H, Eos % (Auto) 0.1, Baso % (Auto) 0.3, Neut # (Auto) 13.5 H, Lymph # (Auto) 0.6 L, [place] # (Auto) 2.2 H, Eos # (Auto) 0.0, Baso # (Auto) 0.1, Total Counted 100, Neutrophils % (Manual) 87 H, Lymphocytes % (Manual) 3 L, Monocytes % (Manual) 10 H, Platelet Estimate Normal, RBC Morphology Normal, Hypochromasia 1+, Poikilocytosis 2+, Anisocytosis 2+, Target Cells 1+, Filiberto Cells 1+, Sodium 131 L, Potassium 5.5 H, Chloride 97 L, Carbon Dioxide 24, Anion Gap 15.5 H, BUN 114 H*, Creatinine 1.90 H D, Estimated Creat Clear 45, Estimated GFR 26 L, Est GFR ( Amer) 32 L D, Glucose 178 H, Calcium 9.4, Magnesium 2.0, Total Bilirubin 0.9, AST 37 H, ALT 57, Alkaline Phosphatase 235 H, Total Protein 7.5, Albumin 3.8 D, Globulin 3.7 H, Albumin/Globulin Ratio 1.0 L 10/19/24 08:25: PT 11.8, INR 1.07 10/19/24 11:10: POC Glucose 222 H 10/19/24 16:35: POC Glucose 186 H I & O for Last 24 hours: Intake & Output 0810/17/24 10/18/24 10/19/24 23:59 23:59 23:59 23:59 Intake Total 1320 / 1680 993.160 / 993.160 Output Total 1575 / 1575 2600 / 2600 Balance -255 / 105 -1606.840 / -1606.840 Weight 103.374 kg 104.508 kg 105.143 kg Constitutional Constitutional: no acute distress and obese *Routine HEENT Exam Head: Present normocephalic Eye: Present EOMI and PERRL ENT: Present mucous membranes moist *Routine Neck Exam Neck: Present supple; Absent lymphadenopathy *Routine Respiratory Exam Respiratory: Present CTA bilaterally *Routine Cardiovascular Exam Cardiovascular: Present RRR *Routine Abdominal Exam Abdominal: Present soft and normoactive bowel sounds; Absent tenderness *Routine Extremities Exam Extremities: Absent cyanosis, clubbing or edema *Routine Skin Exam Skin: Present warm; Absent rash *Routine Neurological Exam Neurological: Present alert and oriented X3 Assessment and Plan *Assessment and plan (1) Tricuspid regurgitation: Status: Acute Qualifiers: Cardiac valve disease etiology: etiology unspecified Qualified Code(s): I07.1 - Rheumatic tricuspid insufficiency Category: Medical Code(s): I07.1 - Rheumatic tricuspid insufficiency (2) Hypertension: Status: Acute Category: Medical Code(s): I10 - Essential (primary) hypertension (3) Cor pulmonale: Status: Acute Category: Medical Code(s): I27.81 - Cor pulmonale (chronic) (4) Asplenia: Status: Chronic Category: Medical Code(s): Q89.01 - Asplenia (congenital) (5) Severe tricuspid regurgitation: Status: Chronic Category: Medical Code(s): I07.1 - Rheumatic tricuspid insufficiency Plan Rica Flannery is a 69-year-old female with a medical history significant for severe right heart failure/cor pulmonale from pulmonary hypertension, asplenia, paroxysmal A-fib, CAD, type 2 diabetes, anxiety/depression, GERD presents with dizziness, exercise intolerance for the past month and was admitted for further evaluation of the same. #Pulmonary hypertension with cor pulmonale #Hypotension #WALE on CKD #Uremia #Medication side effect ? Patient has underlying pulmonary hypertension with concomitant cor pulmonale, possibly related to undiagnosed sleep apnea. See separate problem. ? Has recently been started on tadalafil, macitentan a week prior to admission by [facility] photogrammetric compilation specialist for pulmonary hypertension likely contributing to hypotension, acute renal failure. ? Hoped these medications would washout by today, but patient continues to have hypotension with weaning Levophed, even with midodrine as a bridge. ? This likely indicates worsening RV failure with decreased perfusion to the LV and in turn systemic hypertension. Lactic acid, however, normal. ? Discussed with pulmonology, agreed with starting milrinone 0.125 mcg/h and wean off Levophed. MAP goal greater than 60. ? Will plan to start home tadalafil 20 mg if we are able to wean off Levophed, per pulmonology recommendations. ? At the same time, extensively discussed with family regarding severity of condition. With cor pulmonale causing significant systemic symptoms with endorgan failure and challenges with outpatient treatment for pulmonary hypertension, discussed with family about irreversibility of some of this. They understand the severity of the situation, and if above treatment is not successful that prognosis would be poor. Patient and family stated they would want hospice care in the event above treatment is not successful. ? Hold home bumetanide, Farxiga, metoprolol, Entresto, spironolactone, tadalafil, macitentan. ? TSH normal. Follow-up morning cortisol. ? UA abnormal, CXR with possible pneumonia however CRP low, procalcitonin normal making infection less likely to be the contributor of hypotension. ? Creatinine improved from 2.6-1.9 today with improvement of blood pressure. ? Follow-up morning CBC, CMP, CRP. #Suspected UTI #Suspected community-acquired pneumonia ? UA grossly abnormal, CXR suggestive of left basilar pneumonia. WBC bumped from 10-16.5 today, though could be reactive. Does not meet sepsis criteria at this time. ? However CRP low, procalcitonin normal making infection less likely to be the contributor of hypotension. ? Continue IV ceftriaxone 1 g daily. Follow-up urine, blood culture. #Pulmonary hypertension #Severe RV failure/cor pulmonale #Severe tricuspid regurgitation ? Presented with dizziness, exercise intolerance over the past month. Evaluated by [facility] recently for consideration of triclip for severe tricuspid regurgitation however she was not a good candidate. ? ECHO August 2024 shows markedly elevated RVSP >60 mmHg, severe RV dilatation with failure. ? Has underlying pulmonary hypertension, has not been evaluated for sleep apnea or sleep study. Has one scheduled for November 2024. ? Hold home bumetanide, Farxiga, metoprolol, Entresto, spironolactone, tadalafil, macitentan due to hypotension and renal failure. ? Consider diuresis once BP improves. ? Patient needs a sleep study KOBE after discharge. #History of asplenia ? Hypotensive, follow-up infectious workup as above. #Physical deconditioning #Depression ? Patient's recently. ? Continue home duloxetine 60 mg daily, nortriptyline 25 mg daily. Will benefit from outpatient therapy. Chronic medical problems: #Paroxysmal A-fib ? Currently rate controlled. ? Continue home Eliquis 5 mg twice daily. Hold home metoprolol due to hypotension. #CAD ? Continue home aspirin, statin. DNR/DNI DVT prophylaxis: Eliquis
--- NOTE | 2024-10-19 18:36 | PC.NURSE ---
pt alert and oriented t/o shift. pt lung sounds diminished t/o. pt on 5LNC. pt has been afib on the monitor. Levophed infusing at 10 mcg/min and Milrinone at 0.125 mcg/kg/min. Dr. Weir stated to titrate Levophed for map >65. pt's abdomen large, round, bowel sounds active. pt voiding per purewick. pt was able to sit on the side of bed for lunch. After lunch patient napped for a couple of hours, then was able to get up to the chair with assistance x1 for supper. pt was given a bath while up to the chair and is now back to bed. pt's daughters have been at bedside. Dr. Weir did speak with patient and her daughters today regarding plan of care.
[2024-10-19] MEDS: SODIUM CHLORIDE 3% 15ML NEB 3 ML IH (18:48)
--- NOTE | 2024-10-19 19:26 | EXP.EVENT.NO ---
Goals of care discussion. Discussed with patient and family: Ayesha Julien, Marisol Flannery, and patient. #Pulmonary hypertension with cor pulmonale #Pulmonary hypertension #Severe RV failure/cor pulmonale #Severe tricuspid regurgitation Extensively discussed with family regarding severity of condition. With cor pulmonale causing significant systemic symptoms with endorgan failure and challenges with outpatient treatment for pulmonary hypertension, discussed with family about irreversibility of some of this. They understand the severity of the situation, and if above treatment is not successful that prognosis would be poor. Patient and family stated they would want hospice care in the event above treatment is not successful.
[2024-10-19 19:48] LABS: POC Glucose,Bedside 165 gm/dL (70-110)
[2024-10-19] MEDS: MELATONIN 5MG TABLET 5 MG PO (21:33)
[2024-10-19] MEDS: PANTOPRAZOLE 40MG TABLET 40 MG PO (21:33)
[2024-10-19] MEDS: ZOLPIDEM TARTRATE 5 MG TABLET PO (21:33)
[2024-10-19] MEDS: NOREPINEPHRINE BITARTRATE/D5W 8 MG/250 ML PLAST..BAG 22.5 MG IV (22:59)
[2024-10-20] VITALS (44 sets, daily range): BP systolic 78–127; BP diastolic 36–79; PULSE 75–104; RESP 12–24; TEMP 36.8–37.2; O2SAT 90–97; BMI 38.5
[2024-10-20] MEDS: MORPHINE 2MG/ML SYRINGE 1 MG IV (00:35)
[2024-10-20] MEDS: ACETAMINOPHEN 325MG TAB 650 MG PO (04:59)
[2024-10-20] MEDS: humaLOG 100 UNITS/ML 10ML VIAL (SSI) SUBCUT ×4 (05:06→21:23)
[2024-10-20 05:10] LABS: POC Glucose,Bedside 202 gm/dL (70-110)
[2024-10-20] MEDS: IBUPROFEN 400 MG TABLET PO (06:05)
--- NOTE | 2024-10-20 06:13 | PC.NURSE ---
Pt is AOx4 this AM. Pt continues on milrinone gtt @ 0.125/mcg/kg/min. Norepinephrine gtt was titrated up to 12mcg/min to maintain MAP >65. Pt requiring 3 L nc to maintain spo2 >90%. Humidity attached for pt comfort. Pt has voiced complaint of pain in bilateral legs 1x, headache 2x, and general discomfort all over body 1x. Pt was medicated per APR and repositioned and pt admitted relief. Pt has purewick in place, 1550ml total urine output for shift. Urine pale yellow and clear. Daughter at bedside throughout night. Call light within reach.
--- NOTE | 2024-10-20 07:47 | PC.NURSE ---
per md titrate levophed to a map of 60
[2024-10-20] MEDS: APIXABAN 5MG TABLET 5 MG PO ×2 (08:15→21:16)
[2024-10-20] MEDS: ASPIRIN EC 81MG TABLET 81 MG PO (08:15)
[2024-10-20] MEDS: CEFTRIAXONE 1 GM 1 GM in 0.9 % SODIUM CHLORIDE 50 ML IV (08:15)
[2024-10-20] MEDS: SENNOSIDES 8.6MG/DOCUSATE 50MG TABLET 1 TAB PO (09:18)
[2024-10-20 09:56] LABS: Hematocrit 28.7 % (37.0-47.0); Hemoglobin 8.3 g/dL (12.2-16.2); Immature Granulocytes % 0.5 %; Mean Corpuscular HGB Conc 28.9 g/dL (31.8-35.4); Mean Corpuscular Hemoglobin 21.8 pg (27.0-31.2); Mean Corpuscular Volume 75.5 fl (81-99); Nucleated Red Blood Cells % 0 %; Platelet Count 359 K/mm3 (142-424); Red Blood Count 3.80 M/mm3 (4.20-5.40); Red Cell Distribution Width-SD 65.4 fL; White Blood Count 13.1 K/mm3 (4.8-10.8)
[2024-10-20 09:59] LABS: Albumin Level 3.3 g/dl (3.5-5.0); Chloride 101 mmol/L (98-107)
[2024-10-20 10:00] LABS: Potassium 5.2 mmoL/L (3.5-5.1); Sodium 132 mmol/L (136-145)
[2024-10-20 10:02] LABS: Alanine Aminotransferase 39 U/L (12-78); Aspartate Amino Transferase 28 U/L (14-36); Blood Urea Nitrogen 58 mg/dl (7-17); Creatinine Clearance Estimated 70 mL/min (50-200); Creatinine,Serum 1.20 mg/dl (0.52-1.04); Estimated Glomerular Filt Rate 44 ml/min (>60); GFR (African American) 54 ML/MIN (>60)
[2024-10-20 10:03] LABS: Albumin/Globulin Ratio 1.0 (1.1-1.8); Alkaline Phosphatase 209 U/L (38-126); Anion Gap 9.2 mEq/L (5-15); Bilirubin,Total 0.7 mg/dl (0.2-1.3); Calcium 9.1 mg/dl (8.4-10.2); Carbon Dioxide 27 mmol/L (22.0-30.0); Globulin 3.4 g/dL (1.3-3.2); Glucose 233 mg/dl (74-100); Magnesium 1.8 mg/dl (1.6-2.3); Total Protein,Serum 6.7 g/dl (6.3-8.2)
[2024-10-20] MEDS: NOREPINEPHRINE BITARTRATE/D5W 8 MG/250 ML PLAST..BAG 7.5 MG IV (10:15)
[2024-10-20 10:28] LABS: Target Cells 1+; Total Cells Counted 100
[2024-10-20 10:29] LABS: Anisocytosis 1+; Burr Cells 1+; Hypochromasia 1+; Poikilocytosis 1+
--- NOTE | 2024-10-20 15:05 | EXP.ACUTE.PN ---
Subjective *Date: 10/20/24 *Time: 15:05 Interval history: States feels well this morning. Denies significant dyspnea. Ox general stable on 3 L. O2 sats in the 90s. Blood pressure with MAP greater than 60, continues to require norepinephrine and milrinone. Family at bedside, updated on plan. Medical Exam Vital signs and Labs for Last 24 Hours: Vital Signs Temp Pulse Resp BP BP Pulse Ox O2 Del Method 10/20/24 14:00 91 H 18 93/36 L 95 Nasal Cannula 10/20/24 12:59 Nasal Cannula 10/20/24 12:59 96 H 18 78/39 L 97 Nasal Cannula 10/20/24 12:00 98.5 F 93 H 14 125/79 95 Nasal Cannula 10/20/24 12:00 94 L Nasal Cannula 10/20/24 12:00 79 10/20/24 12:00 98.5 F 79 18 125/79 95 Nasal Cannula 10/20/24 11:00 Nasal Cannula 10/20/24 11:00 76 14 94/44 L 97 Nasal Cannula 10/20/24 10:00 86 17 95/46 L 93 L Nasal Cannula 10/20/24 10:00 75 18 96/40 L 97 Nasal Cannula 10/20/24 09:00 Nasal Cannula 10/20/24 09:00 97 H 15 126/71 90 L Nasal Cannula 10/20/24 08:00 96 H 10/20/24 08:00 93 L Nasal Cannula 10/20/24 08:00 98.7 F 89 20 127/71 93 L Nasal Cannula 10/20/24 08:00 94 L Nasal Cannula 10/20/24 07:00 115/58 L 10/20/24 07:00 82 15 93 L 10/20/24 06:34 Nasal Cannula 10/20/24 06:01 113/53 L 10/20/24 06:01 89 17 92 L 10/20/24 05:00 94 H 19 91 L 10/20/24 05:00 98/68 L 10/20/24 04:50 Nasal Cannula 10/20/24 04:16 90 10/20/24 04:00 91 L Nasal Cannula 10/20/24 04:00 103/50 L 10/20/24 04:00 88 19 93 L 10/20/24 04:00 98.9 F 10/20/24 03:00 91 H 17 110/56 L 90 L 10/20/24 03:00 110/56 L 10/20/24 02:50 Nasal Cannula 10/20/24 02:00 102 H 24 93 L 10/20/24 02:00 111/55 L 10/20/24 01:00 113/49 L 10/20/24 01:00 88 17 91 L 10/20/24 00:40 Nasal Cannula 10/20/24 00:28 87 10/20/24 00:00 122/59 L 10/20/24 00:00 86 15 93 L 10/20/24 00:00 92 L Nasal Cannula 10/20/24 00:00 98.8 F 10/19/24 23:09 Nasal Cannula 10/19/24 23:00 105/48 L 10/19/24 23:00 92 H 18 94 L 10/19/24 22:00 86 18 124/63 90 L Nasal Cannula 10/19/24 21:00 Nasal Cannula 10/19/24 21:00 93 H 17 114/59 L 91 L Nasal Cannula 10/19/24 20:00 90 L Nasal Cannula 10/19/24 20:00 91 H 10/19/24 20:00 97.6 F 19 102/46 L 91 L Nasal Cannula 10/19/24 18:48 95 Nasal Cannula 10/19/24 18:48 83 20 10/19/24 18:48 83 10/19/24 18:48 86 10/19/24 18:45 Nasal Cannula 10/19/24 18:45 81 18 109/61 L 91 L Nasal Cannula 10/19/24 18:01 85 19 115/56 L 93 L Nasal Cannula 10/19/24 17:00 78 18 137/59 L 92 L Nasal Cannula 10/19/24 17:00 85 18 126/64 91 L Nasal Cannula 10/19/24 16:50 Nasal Cannula 10/19/24 16:06 98.6 F 67 16 123/69 92 L Nasal Cannula 10/19/24 16:00 91 L Nasal Cannula 10/19/24 16:00 80 O2 Flow Rate 10/20/24 14:00 3 10/20/24 12:59 3 10/20/24 12:59 3 10/20/24 12:00 3 10/20/24 12:00 3 10/20/24 12:00 10/20/24 12:00 3 10/20/24 11:00 3 10/20/24 11:00 3 10/20/24 10:00 3 10/20/24 10:00 3 10/20/24 09:00 3 10/20/24 09:00 3 10/20/24 08:00 10/20/24 08:00 3 10/20/24 08:00 3 10/20/24 08:00 3 10/20/24 07:00 10/20/24 07:00 10/20/24 06:34 3 10/20/24 06:01 10/20/24 06:01 10/20/24 05:00 10/20/24 05:00 10/20/24 04:50 3 10/20/24 04:16 10/20/24 04:00 3 10/20/24 04:00 10/20/24 04:00 10/20/24 04:00 10/20/24 03:00 10/20/24 03:00 10/20/24 02:50 3 10/20/24 02:00 10/20/24 02:00 10/20/24 01:00 10/20/24 01:00 10/20/24 00:40 3 10/20/24 00:28 10/20/24 00:00 10/20/24 00:00 10/20/24 00:00 3 10/20/24 00:00 10/19/24 23:09 3 10/19/24 23:00 10/19/24 23:00 10/19/24 22:00 3 10/19/24 21:00 3 10/19/24 21:00 3 10/19/24 20:00 3 10/19/24 20:00 10/19/24 20:00 3 10/19/24 18:48 3 10/19/24 18:48 10/19/24 18:48 10/19/24 18:48 10/19/24 18:45 5 10/19/24 18:45 5 10/19/24 18:01 5 10/19/24 17:00 5 10/19/24 17:00 5 10/19/24 16:50 5 10/19/24 16:06 5 10/19/24 16:00 5 10/19/24 16:00 Intake and Output 10/19/24 10/20/24 10/20/24 23:59 07:59 15:59 Intake Total 884.125 / 1757.285 942.875 / 942.875 Output Total 1550 / 1825 275 / 1825 Balance 884.125 / -1592.715 -1550 / -882.125 667.875 / -882.125 Intake: Intake, Oral Amount 660 / 1260 656 / 656 Intake, Total IV Amount 224.125 / 497.285 286.875 / 286.875 Ceftriaxone 1 gm 1 gm In 0.9 % 50 / 50 Sodium Chloride 50 ml @ 100 mls /hr IV Q24H KATHY Rx#:[id number] Norepinephrine Bitartrate/D5w 8 224.125 / 447.285 236.875 / 236.875 mg In 250 ml @ 5 MCG/MIN 9.375 mls/hr IV .Q24H KATHY Rx#: [id number] Output: Output, Urine Amount 1550 / 1825 275 / 1825 Other: Number of Unmeasured Voids 1 0 Weight 102.467 kg Patient Weight 10/20/24 23:59 Weight 102.467 kg Laboratory Results - last 24 hr 10/18/24 19:52: Urine Color Yellow, Urine Appearance Clear, Urine pH 5.5, Ur Specific [place] 1.010, Urine Protein Negative, Urine Glucose (UA) 1+, Urine Ketones Negative, Urine Blood 1+ A, Urine Nitrate Negative, Urine Bilirubin Negative, Urine Urobilinogen 0.2, Ur Leukocyte Esterase 2+ A, Urine RBC 5-10, Urine WBC 20-50, Ur Squamous Epith Cells 3-5, Urine Bacteria 2+ 10/19/24 16:35: POC Glucose 186 H 10/19/24 19:35: POC Glucose 165 H 10/20/24 05:02: POC Glucose 202 H 10/20/24 09:27: WBC 13.1 H, RBC 3.80 L, Hgb 8.3 L, Hct 28.7 L, MCV 75.5 L, MCH 21.8 L, MCHC 28.9 L, RDW 24.8 H, Plt Count 359, MPV 10.3, Neut % (Auto) 74.6, Lymph % (Auto) 7.6 L, [place] % (Auto) 15.4 H, Eos % (Auto) 1.2, Baso % (Auto) 0.7, Neut # (Auto) 9.8 H, Lymph # (Auto) 1.0, [place] # (Auto) 2.0 H, Eos # (Auto) 0.2, Baso # (Auto) 0.1, Total Counted 100, Neutrophils % (Manual) 79 H, Lymphocytes % (Manual) 9 L, Monocytes % (Manual) 12 H, Platelet Estimate Normal, Hypochromasia 1+, Poikilocytosis 1+, Anisocytosis 1+, Target Cells 1+, Filiberto Cells 1+, Sodium 132 L, Potassium 5.2 H, Chloride 101, Carbon Dioxide 27, Anion Gap 9.2, BUN 58 H D, Creatinine 1.20 H D, Estimated Creat Clear 70, Estimated GFR 44 L, Est GFR ( Amer) 54 L D, Glucose 233 H, Calcium 9.1, Magnesium 1.8, Total Bilirubin 0.7, AST 28, ALT 39 D, Alkaline Phosphatase 209 H, Total Protein 6.7, Albumin 3.3 L D, Globulin 3.4 H, Albumin/Globulin Ratio 1.0 L I & O for Labs for Last 24 Hours: Intake & Output 10/17/24 10/18/24 10/19/24 10/20/24 23:59 23:59 23:59 23:59 Intake Total 1320 / 1680 1757.285 / 1757.285 942.875 / 942.875 Output Total 1575 / 1575 2600 / 3350 1825 / 1825 Balance -255 / 105 -842.715 / -1592.715 -882.125 / -882.125 Weight 103.374 kg 104.508 kg 105.143 kg 102.467 kg Microbiology Reports for the Last 24 Hours: Microbiology 10/19/24 19:19 Sputum - Expectorated Sputum Gram Stain - Final 10/18/24 19:52 Urine,Clean Catch Urine Culture - Preliminary Gram Negative Rods 10/18/24 18:12 Blood Blood Culture - Preliminary NO GROWTH AFTER 24 HOURS 10/18/24 18:10 Blood Blood Culture - Preliminary NO GROWTH AFTER 24 HOURS Constitutional: Present mild distress, obese, chronically ill appearing and cooperative Head: Present atraumatic and normocephalic ENT: Present normal exam Neck: Present normal inspection Respiratory: Present distant breath sounds and diminished air movement; Absent respiratory distress, rhonchi, wheezes or crackles Cardiac: Present Reg Rate and Rhythm and Audible Murmur Comment:: Frequent PVCs GI: Present soft and normal bowel sounds; Absent distention or tenderness Extremities: Present normal inspection and full ROM; Absent edema (Bilateral stasis dermatitis) Skin: Present intact and wounds; Absent erythema Neuro: Present Grossly Intact, alert, awake, oriented x 3 and moves all extremities Assessment and Plan *Assessment and plan (1) Tricuspid regurgitation: Status: Acute Qualifiers: Cardiac valve disease etiology: etiology unspecified Qualified Code(s): I07.1 - Rheumatic tricuspid insufficiency Category: Medical Code(s): I07.1 - Rheumatic tricuspid insufficiency (2) Hypertension: Status: Acute Category: Medical Code(s): I10 - Essential (primary) hypertension (3) Cor pulmonale: Status: Acute Category: Medical Code(s): I27.81 - Cor pulmonale (chronic) (4) Asplenia: Status: Chronic Category: Medical Code(s): Q89.01 - Asplenia (congenital) (5) Severe tricuspid regurgitation: Status: Chronic Category: Medical Code(s): I07.1 - Rheumatic tricuspid insufficiency Plan Rica Flannery is a 69-year-old female with a medical history significant for severe right heart failure/cor pulmonale from pulmonary hypertension, asplenia, paroxysmal A-fib, CAD, type 2 diabetes, anxiety/depression, GERD presents with dizziness, exercise intolerance for the past month and was admitted for further evaluation of the same. Problems addressed as follows: #Pulmonary hypertension with cor pulmonale #Hypotension #WALE on CKD #Uremia #Medication side effect ? Patient has underlying pulmonary hypertension with concomitant cor pulmonale, possibly related to undiagnosed sleep apnea. See separate problem. ? Has recently been started on tadalafil, macitentan a week prior to admission by [facility] housekeeping coordinator for pulmonary hypertension likely contributing to hypotension, acute renal failure. ? Hoped these medications would washout by today, but patient continues to have hypotension with weaning Levophed, even with midodrine as a bridge. ? This likely indicates worsening RV failure with decreased perfusion to the LV and in turn systemic hypertension. Lactic acid, however, normal. ? Pulmonology and cardiology consulted. Continue to attempt to wean off Levophed. Down to 4 mics at this time. Continue milrinone milrinone 0.125 mcg/h. MAP goal greater than 60. ? Will plan to start home tadalafil 20 mg if we are able to wean off Levophed, per pulmonology recommendations. ? At the same time, extensively discussed with family regarding severity of condition. With cor pulmonale causing significant systemic symptoms with endorgan failure and challenges with outpatient treatment for pulmonary hypertension, discussed with family about irreversibility of some of this. They understand the severity of the situation, and if above treatment is not successful that prognosis would be poor. Patient and family stated they would want hospice care in the event above treatment is not successful. ? Hold home bumetanide, Farxiga, metoprolol, Entresto, spironolactone, tadalafil, macitentan. ? TSH normal. Follow-up morning cortisol. ? UA abnormal, CXR with possible pneumonia however CRP low, procalcitonin normal making infection less likely to be the contributor of hypotension. ? Kidney function continues to improve, BUN 58, creatinine 1.2. Potassium 5.2. Magnesium 1.8. - Repeat CBC, CMP, magnesium ordered for the morning #Suspected UTI #Suspected community-acquired pneumonia ? UA grossly abnormal, CXR suggestive of left basilar pneumonia. WBC improved from 16-13. Concern for reactive versus infectious source. ? However CRP low, procalcitonin normal making infection less likely to be the contributor of hypotension. ? Continue IV ceftriaxone 1 g daily. - Urine growing gram-negative rods, greater than 100,000 units. Blood cultures remain negative to date #Pulmonary hypertension #Severe RV failure/cor pulmonale #Severe tricuspid regurgitation ? Presented with dizziness, exercise intolerance over the past month. Evaluated by [facility] recently for consideration of triclip for severe tricuspid regurgitation however she was not a good candidate. ? ECHO August 2024 shows markedly elevated RVSP >60 mmHg, severe RV dilatation with failure. ? Has underlying pulmonary hypertension, has not been evaluated for sleep apnea or sleep study. Has one scheduled for November 2024. ? Hold home bumetanide, Farxiga, metoprolol, Entresto, spironolactone, tadalafil, macitentan due to hypotension and renal failure. ? Consider diuresis once BP improves. ? Patient needs urgent consideration for a sleep study after discharge. #History of asplenia: Hypotensive, follow-up infectious workup as above. #Physical deconditioning #Depression ? Patient's recently. ? Continue home duloxetine 60 mg daily, nortriptyline 25 mg daily. Chronic medical problems: #Paroxysmal A-fib: Currently rate controlled. Continue home Eliquis 5 mg twice daily. Hold home metoprolol due to hypotension. #CAD: Continue home aspirin, statin. DNR/DNI DVT prophylaxis: Eliquis ICU/Critical care attestation This patient is critically ill with 35 minutes devoted solely to this patient managing life/organ supporting interventions that required physician assessment. This includes time spent making adjustments in ventilator settings, IV fluid administration, titration of pressors, adjustments of medications, discussion of patient with consultants and other care providers as well as updating patient and/or family (if patient by virtue of his/her condition is unable to participate in decision making). This does not include time spent performing separately billed procedures. Time is not concurrent with that of other providers.
[2024-10-20] MEDS: MILRINONE LACTATE 20 MG in 0.9 % SODIUM CHLORIDE 80 ML 3.94 MG IV (15:16)
--- NOTE | 2024-10-20 17:05 | PC.NURSE ---
patient has been in good spirits joking with staff through out the day. has ringed out when needed. has been up to chair since about 1115 this morning. daughters have been at bedside. bath and hair washing done. titrated drip down to 6mcg/min this shift. purwick in place. remains in afib. sating well on 3l. states she feels great. updated on plan of care. encouraged her to ring out as needed
--- NOTE | 2024-10-20 18:24 | PC.NURSE ---
patient bp started running low on monitor. took manual blood pressure with doppler and noted a systolic of 92. changed out blood pressure cuffs for a larger one to take on upper arm, and bp read 98/41 at that time. left that cuff in place.
--- NOTE | 2024-10-20 18:25 | PC.NURSE ---
Patient A&O x 3 this shift, lung sounds are diminished she is on NC 3L, purwick in place. Patient has had a bath this shift with hair washed and linens changed. Levo drip currently going at 6 started at 12 this morning, and milrinone going at 0.125mcg/kg/min. Family has been at bedside most of the day.
[2024-10-20] MEDS: MELATONIN 5MG TABLET 5 MG PO (21:16)
[2024-10-20] MEDS: PANTOPRAZOLE 40MG TABLET 40 MG PO (21:16)
[2024-10-20] MEDS: TIZANIDINE 4MG TABLET 2 MG PO (22:37)
[2024-10-21] VITALS (55 sets, daily range): BP systolic 79–134; BP diastolic 29–87; PULSE 68–102; RESP 6–26; TEMP 36.7–38.1; O2SAT 90–100; BMI 39.6
[2024-10-21] MEDS: NOREPINEPHRINE BITARTRATE/D5W 8 MG/250 ML PLAST..BAG 18.75 MG IV (03:10)
[2024-10-21] MEDS: ACETAMINOPHEN 325MG TAB 650 MG PO (03:23)
[2024-10-21 05:39] LABS: Alanine Aminotransferase 89 U/L (12-78); Albumin Level 3.3 g/dl (3.5-5.0); Albumin/Globulin Ratio 0.9 (1.1-1.8); Alkaline Phosphatase 511 U/L (38-126); Anion Gap 9.8 mEq/L (5-15); Aspartate Amino Transferase 106 U/L (14-36); Bilirubin,Total 1.2 mg/dl (0.2-1.3); Blood Urea Nitrogen 45 mg/dl (7-17); Calcium 9.0 mg/dl (8.4-10.2); Carbon Dioxide 27 mmol/L (22.0-30.0); Chloride 99 mmol/L (98-107); Creatinine Clearance Estimated 78 mL/min (50-200); Creatinine,Serum 1.10 mg/dl (0.52-1.04); Estimated Glomerular Filt Rate 49 ml/min (>60); GFR (African American) 59 ML/MIN (>60); Globulin 3.6 g/dL (1.3-3.2); Glucose 182 mg/dl (74-100); Magnesium 1.6 mg/dl (1.6-2.3); Potassium 4.8 mmoL/L (3.5-5.1); Sodium 131 mmol/L (136-145); Total Protein,Serum 6.9 g/dl (6.3-8.2)
[2024-10-21 05:40] LABS: Hematocrit 27.9 % (37.0-47.0); Hemoglobin 8.2 g/dL (12.2-16.2); Immature Granulocytes % 0.5 %; Mean Corpuscular HGB Conc 29.4 g/dL (31.8-35.4); Mean Corpuscular Hemoglobin 21.9 pg (27.0-31.2); Mean Corpuscular Volume 74.4 fl (81-99); Nucleated Red Blood Cells % 0 %; Platelet Count 395 K/mm3 (142-424); Red Blood Count 3.75 M/mm3 (4.20-5.40); Red Cell Distribution Width-SD 64.9 fL; White Blood Count 17.8 K/mm3 (4.8-10.8)
[2024-10-21 06:28] LABS: RBC Morphology Normal; Total Cells Counted 100
--- NOTE | 2024-10-21 06:50 | PC.NURSE ---
patient is resting in bed with HOB elevated and family at bedside. Patient has slept most of the night with no issues noted except for a drop in BP and MAP. Due to this patient's Norepi drip has been increased to 10mcg. Patient did have on episode of her back and shoulders cramping and with some slight discomfort, patient was treated and obtained success and no other complaints expressed and or other issues noted. Patient did run a small temp of 100.6 and patient was treated with Tylenol and obtained success with a recheck of 98.8. Both IV's restarted in bilateral forearm's and are now patent and blood return noted from both IV's. BP currently running at 94/49 and HR of 84. Patient has been consistently running controlled A-Fib with no NAD noted in condition. Patient's Milrinone drip is still currently at the same rate.
[2024-10-21] MEDS: SENNOSIDES 8.6MG/DOCUSATE 50MG TABLET 1 TAB PO (08:50)
[2024-10-21] MEDS: APIXABAN 5MG TABLET 5 MG PO ×2 (08:50→20:13)
[2024-10-21] MEDS: ASPIRIN EC 81MG TABLET 81 MG PO (08:50)
[2024-10-21] MEDS: CEFTRIAXONE 1 GM 1 GM in 0.9 % SODIUM CHLORIDE 50 ML IV (09:05)
--- NOTE | 2024-10-21 09:40 | PC.NURSE ---
Medication Titration On assessment of patient BP at 0800 with reading 130/87 (MAP: 101) initiated titration of Levophed/norepinepherine from 10 mcg/min to 9 mcg/min. (forgot to chart these changes in the MAR) 0806: BP of 169/99 (110) titrated drip to 7 mcg/min 0812: BP 167/90 (111) titrated drip to 4 mcg/min 0825: BP 153/90 (103) titrated drip to 3 mcg/min 0838: BP 142/83 (92) titrated drip to 0 mcg/min 0845: BP 124/77 (83) asymptomatic *Moved BP cuff to the arm from RLE 0900: BP 82/43 (56) restarted drip at 2 mcg/min 0910: BP 77/34 (48) titrated drip to 3 mcg/min 0921: BP 74/40 (52) titrated drip to 4 mcg/min 0925: BP 87/45 (54) titrated drip to 5 mcg/min 0932: BP 87/35 (52) titrated drip to 6 mcg/min 0936: BP: 98/58 (71) no changes made to rate 0945: BP 106/49 (66)
--- NOTE | 2024-10-21 09:42 | EXP.PULM.CON ---
History of Present Illness History of present illness: Ms. Flannery is a 69 year-old female no significant smoking history, obesity, high risk for sleep apnea recently had a diagnosis of pulmonary hypertension status post right heart cath showed pulmonary hypertension with increased PVR at 12 ureña which also showed to have elevated wedge pressure at 18 initiated on a combination of Tadanafil and Macicentan for her pulmonary hypertension along with increasing dose of diuretics noted to have worsening hypotensive episodes presented to the ER and pulmonary was consulted for further evaluation and management. [facility] Disclaimer: The information contained in this section may have been updated after the patient was seen, as this information can be updated by other users. Medical History (Updated 10/21/24 @ 14:30 by Ryanne Whiting MD) Acute and chronic respiratory failure with hypoxia Cor pulmonale Hypertension Abnormal abdominal CT scan Peripheral arterial disease Primary pulmonary hypertension Type 2 diabetes mellitus with foot ulcer UTI (urinary tract infection) Renal insufficiency Hyperkalemia Hypotension CAD in [place] artery BMI 39.0-39.9,adult Chronic anemia Chronic anticoagulation Coronary artery disease Diabetes HFrEF (heart failure with reduced ejection fraction) Pulmonary hypertension Depression Constipation GERD (gastroesophageal reflux disease) Oxygen dependent Atrial fibrillation Surgical History Status post left heart catheterization Family History Other Alcohol abuse Family history of cancer Heart attack Social History Smoking Status: Never smoker alcohol intake: never current occupational status: unemployed Travel in the last 8 weeks?: None Have you lived/traveled outside [place] in past 30 days?: No Contact w/someone who lives/traveled outside US past 30 days?: No Exposure to someone with infectious disease in past 14 days?: No Do you have a fever (greater than 100.4 F or 38 C)?: No Have you tested positive for COVID-19?: No Exposed to someone with COVID-19 in past 14 days?: No Do you have a sore throat?: No Do you have a cough?: No Do you have any weakness?: No Do you have any diarrhea?: No Are you experiencing any unusual bleeding?: No Do you have any muscle aches/pain?: No Do you have any abdominal pain?: No Are you experiencing loss of taste or smell?: No Review of Systems Constitutional Constitutional: Reports anorexia, Reports body ache(s) and Reports fatigue Eyes Eyes: Denies eye discharge, Denies dry eyes, Denies irritation and Denies itchy eyes ENT Ears, Nose, Mouth, and Throat: Denies epistaxis, Denies facial pain, Denies lip swelling and Denies throat swelling *Cardiovascular Cardiovascular: Reports dyspnea, Reports dyspnea on exertion, Reports leg edema and Reports orthopnea *Respiratory Respiratory: Denies change in phlegm color, Denies chest congestion, Reports cough, Reports dyspnea, Reports dyspnea on exertion, Denies excessive phlegm production, Denies hemoptysis, Denies pain on inspiration, Denies pain with cough and Denies wheezing *Gastrointestinal Gastrointestinal: Denies abdominal pain, Denies belching and Denies cramping *Musculoskeletal Musculoskeletal: Reports back pain, Reports myalgias and Reports other (No small joint swelling or Pain) *Neurologic Neurologic: Reports as per HPI Psychiatric Psychiatric: Denies homicidal ideation and Denies suicidal ideation Endocrine Endocrine: Reports fatigue and Denies heat intolerance Hematologic/Lymphatic Hematologic/Lymphatic: Denies easy bleeding and Denies lymphadenopathy Allergic/Immunologic Allergic/Immunologic: Denies itchy eyes, Denies lip swelling, Denies throat swelling and Denies wheezing Pulmonology Exam Inpatient Vital signs and Labs for Last 24 Hours: Temp Pulse Resp BP Pulse Ox O2 Del Method O2 Flow Rate 98.1 F 87 16 134/66 93 L Nasal Cannula 3 10/21/24 07:36 10/21/24 07:36 10/21/24 07:36 10/21/24 07:36 10/21/24 07:36 10/21/24 07:36 10/21/24 07:36 Laboratory Results - last 24 hr 10/20/24 09:27: WBC 13.1 H, RBC 3.80 L, Hgb 8.3 L, Hct 28.7 L, MCV 75.5 L, MCH 21.8 L, MCHC 28.9 L, RDW 24.8 H, Plt Count 359, MPV 10.3, Neut % (Auto) 74.6, Lymph % (Auto) 7.6 L, [place] % (Auto) 15.4 H, Eos % (Auto) 1.2, Baso % (Auto) 0.7, Neut # (Auto) 9.8 H, Lymph # (Auto) 1.0, [place] # (Auto) 2.0 H, Eos # (Auto) 0.2, Baso # (Auto) 0.1, Total Counted 100, Neutrophils % (Manual) 79 H, Lymphocytes % (Manual) 9 L, Monocytes % (Manual) 12 H, Platelet Estimate Normal, Hypochromasia 1+, Poikilocytosis 1+, Anisocytosis 1+, Target Cells 1+, Filiberto Cells 1+, Sodium 132 L, Potassium 5.2 H, Chloride 101, Carbon Dioxide 27, Anion Gap 9.2, BUN 58 H D, Creatinine 1.20 H D, Estimated Creat Clear 70, Estimated GFR 44 L, Est GFR ( Amer) 54 L D, Glucose 233 H, Calcium 9.1, Magnesium 1.8, Total Bilirubin 0.7, AST 28, ALT 39 D, Alkaline Phosphatase 209 H, Total Protein 6.7, Albumin 3.3 L D, Globulin 3.4 H, Albumin/Globulin Ratio 1.0 L 10/21/24 04:47: WBC 17.8 H D, RBC 3.75 L, Hgb 8.2 L, Hct 27.9 L, MCV 74.4 L, MCH 21.9 L, MCHC 29.4 L, RDW 25.1 H*, Plt Count 395, MPV 10.9 H, Neut % (Auto) 78.1, Lymph % (Auto) 5.9 L, [place] % (Auto) 13.7 H, Eos % (Auto) 1.4, Baso % (Auto) 0.4, Neut # (Auto) 13.9 H, Lymph # (Auto) 1.0, [place] # (Auto) 2.4 H, Eos # (Auto) 0.3, Baso # (Auto) 0.1, Total Counted 100, Neutrophils % (Manual) 82 H, Lymphocytes % (Manual) 3 L, Monocytes % (Manual) 14 H, Eosinophils % (Manual) 1, Platelet Estimate Normal, RBC Morphology Normal, Sodium 131 L, Potassium 4.8, Chloride 99, Carbon Dioxide 27, Anion Gap 9.8, BUN 45 H, Creatinine 1.10 H, Estimated Creat Clear 78, Estimated GFR 49 L, Est GFR ( Amer) 59, Glucose 182 H D, Calcium 9.0, Magnesium 1.6 D, Total Bilirubin 1.2, AST 106 H D, ALT 89 H D, Alkaline Phosphatase 511 H, Total Protein 6.9, Albumin 3.3 L, Globulin 3.6 H, Albumin/Globulin Ratio 0.9 L I & O for Labs for Last 24 Hours: Intake & Output 10/18/24 10/19/24 10/20/24 10/21/24 23:59 23:59 23:59 23:59 Intake Total 1320 / 1680 1757.285 / 5347.200 4352.095 / 3232.209 2961.876 / 1567.876 Output Total 1575 / 1575 2600 / 3350 2525 / 2525 850 / 850 Balance -255 / 105 -842.715 / -1592.715 -1374.905 / -1134.905 717.876 / 717.876 Weight 230 lb 6.4 oz 231 lb 12.8 oz 225 lb 14.4 oz 232 lb 8 oz Microbiology Reports for the Last 24 Hours: Microbiology 10/18/24 19:52 Urine,Clean Catch Urine Culture - Final Escherichia coli 10/18/24 18:10 Blood Blood Culture - Preliminary NO GROWTH AFTER 48 HOURS 10/18/24 18:12 Blood Blood Culture - Preliminary NO GROWTH AFTER 48 HOURS Constitutional: Present moderate distress Head: Present normocephalic and atraumatic ENT: Present normal exam, normal oropharynx and mucous membranes moist Neck: Present normal inspection and full ROM Respiratory: Present respiratory distress and able to speak in complete sentences; Absent prolonged expiratory phase, wheezes or diminished air movement Cardiac: Present S1/S2, Tachycardia and radial pulses present GI: Present soft and distention; Absent tenderness or guarding Rectal (female): Present deferred (female): Present deferred Skin: Present intact; Absent cyanosis or jaundice Neuro: Present alert, awake and oriented x 3 Extremities: Present normal inspection; Absent clubbing or cyanosis Psychiatric: Present normal affect and cooperative Meds Home Medications and Allergies Home Medications ?Medication ?Instructions ?Recorded ?Confirmed ?Type acetaminophen 500 mg tablet 1,000 mg PO Q6H PRN Mild Pain 05/09/24 10/17/24 History (Tylenol Extra Strength) (Scale Score 1-4) atorvastatin 40 mg tablet 40 mg PO HS #90 tabs 06/02/24 10/17/24 Rx pantoprazole 40 mg tablet,delayed 40 mg PO HS #90 tabs 06/09/24 10/17/24 Rx release tirzepatide 5 mg/0.5 mL 5 mg (0.5 mL) SQ WEEKLY #2.5 mL 07/22/24 10/17/24 Rx subcutaneous pen injector zolpidem 5 mg tablet (Ambien) 5 mg PO HS PRN sleep #30 tabs 08/26/24 10/17/24 Rx nystatin 100,000 unit/gram topical 1 applic topical BID PRN 09/30/24 10/17/24 History powder Excoriation apixaban 5 mg tablet (Eliquis) 5 mg PO BID 10/17/24 10/17/24 History aspirin 81 mg tablet,delayed 81 mg PO DAILY 10/17/24 10/17/24 History release dapagliflozin propanediol 10 mg 10 mg PO DAILY 10/17/24 10/17/24 History tablet (Farxiga) duloxetine 60 mg capsule,delayed 60 mg PO DAILY 10/17/24 10/17/24 History release famotidine 20 mg tablet 20 mg PO DAILY 10/17/24 10/17/24 History macitentan 10 mg tablet (Opsumit) 10 mg PO DAILY 10/17/24 10/17/24 History melatonin 5 mg tablet 5 mg PO HS 10/17/24 10/17/24 History nortriptyline 25 mg capsule 25 mg PO HS 10/17/24 10/17/24 History sacubitril 24 mg-valsartan 26 mg 1 tab PO BID 10/17/24 10/17/24 History tablet (Entresto) sennosides 8.6 mg-docusate sodium 1 tab PO DAILY 10/17/24 10/17/24 History 50 mg tablet (Senexon-S) spironolactone 25 mg tablet 25 mg PO DAILY 10/17/24 10/17/24 History tadalafil (pulm. hypertension) 20 20 mg PO DAILY 10/17/24 10/17/24 History mg tablet (pulmonary hypertension) bumetanide 1 mg tablet 1 mg PO DAILY 10/18/24 10/18/24 History ferrous sulfate 325 mg (65 mg 325 mg PO Q48H 10/18/24 10/18/24 History iron) tablet (Feosol) metoprolol succinate 25 mg 25 mg PO DAILY 10/18/24 10/18/24 History tablet,extended release 24 hr New Prescriptions to Start Prescriptions: Allergies Allergy/AdvReac Type Severity Reaction Status Date / Time levofloxacin Allergy Verified 10/02/24 10:58 meperidine Allergy Verified 10/02/24 10:58 Results Laboratory Findings 10/21/24 04:47 10/21/24 04:47 PT/INR, D-dimer PT 11.8 seconds (10.1-12.5) 10/19/24 08: INR 1.07 (0.9-1.1) 10/19/24 08:25 Abnormal lab findings: Abnormal Labs 10/18/24 10/18/24 10/18/24 10:00 17:00 18:12 WBC RBC 4.14 L Hgb 9.1 L Hct 30.3 L MCV 73.2 L MCH 22.0 L MCHC 30.0 L RDW 24.2 H MPV 10.7 H Neut % (Auto) Lymph % (Auto) [place] % (Auto) 13.2 H Neut # (Auto) Lymph # (Auto) [place] # (Auto) 1.3 H Neutrophils % (Manual) Lymphocytes % (Manual) Monocytes % (Manual) Sodium 126 L 126 L Potassium 5.5 H Chloride 91 L 95 L Anion Gap BUN 120 H* 120 H* Creatinine 2.70 H 2.60 H Estimated GFR 17 L* 18 L* Est GFR ( Amer) 21 L 22 L Glucose 164 H 156 H POC Glucose AST ALT Alkaline Phosphatase 222 H 198 H C-Reactive Protein 35.4 H NT-Pro-B Natriuret Pep 6770 H Albumin 3.4 L 3.3 L Globulin 3.5 H Albumin/Globulin Ratio 1.0 L Urine Blood Ur Leukocyte Esterase 10/18/24 10/18/24 10/18/24 18:40 19:52 20:31 WBC RBC Hgb Hct MCV MCH MCHC RDW MPV Neut % (Auto) Lymph % (Auto) [place] % (Auto) Neut # (Auto) Lymph # (Auto) [place] # (Auto) Neutrophils % (Manual) Lymphocytes % (Manual) Monocytes % (Manual) Sodium Potassium Chloride Anion Gap BUN Creatinine Estimated GFR Est GFR ( Amer) Glucose POC Glucose 190 H 216 H AST ALT Alkaline Phosphatase C-Reactive Protein NT-Pro-B Natriuret Pep Albumin Globulin Albumin/Globulin Ratio Urine Blood 1+ A Ur Leukocyte Esterase 2+ A 10/19/24 10/19/24 10/19/24 05:31 08:00 11:10 WBC 16.5 H D RBC Hgb 9.5 L Hct 32.0 L MCV 73.6 L MCH 21.8 L MCHC 29.7 L RDW 24.5 H MPV 10.6 H Neut % (Auto) 81.8 H Lymph % (Auto) 3.5 L [place] % (Auto) 13.3 H Neut # (Auto) 13.5 H Lymph # (Auto) 0.6 L [place] # (Auto) 2.2 H Neutrophils % (Manual) 87 H Lymphocytes % (Manual) 3 L Monocytes % (Manual) 10 H Sodium 131 L Potassium 5.5 H Chloride 97 L Anion Gap 15.5 H BUN 114 H* Creatinine 1.90 H D Estimated GFR 26 L Est GFR ( Amer) 32 L D Glucose 178 H POC Glucose 209 H 222 H AST 37 H ALT Alkaline Phosphatase 235 H C-Reactive Protein NT-Pro-B Natriuret Pep Albumin Globulin 3.7 H Albumin/Globulin Ratio 1.0 L Urine Blood Ur Leukocyte Esterase 10/19/24 10/19/24 10/20/24 16:35 19:35 05:02 WBC RBC Hgb Hct MCV MCH MCHC RDW MPV Neut % (Auto) Lymph % (Auto) [place] % (Auto) Neut # (Auto) Lymph # (Auto) [place] # (Auto) Neutrophils % (Manual) Lymphocytes % (Manual) Monocytes % (Manual) Sodium Potassium Chloride Anion Gap BUN Creatinine Estimated GFR Est GFR ( Amer) Glucose POC Glucose 186 H 165 H 202 H AST ALT Alkaline Phosphatase C-Reactive Protein NT-Pro-B Natriuret Pep Albumin Globulin Albumin/Globulin Ratio Urine Blood Ur Leukocyte Esterase 10/20/24 10/21/24 09:27 04:47 WBC 13.1 H 17.8 H D RBC 3.80 L 3.75 L Hgb 8.3 L 8.2 L Hct 28.7 L 27.9 L MCV 75.5 L 74.4 L MCH 21.8 L 21.9 L MCHC 28.9 L 29.4 L RDW 24.8 H 25.1 H* MPV 10.9 H Neut % (Auto) Lymph % (Auto) 7.6 L 5.9 L [place] % (Auto) 15.4 H 13.7 H Neut # (Auto) 9.8 H 13.9 H Lymph # (Auto) [place] # (Auto) 2.0 H 2.4 H Neutrophils % (Manual) 79 H 82 H Lymphocytes % (Manual) 9 L 3 L Monocytes % (Manual) 12 H 14 H Sodium 132 L 131 L Potassium 5.2 H Chloride Anion Gap BUN 58 H D 45 H Creatinine 1.20 H D 1.10 H Estimated GFR 44 L 49 L Est GFR ( Amer) 54 L D Glucose 233 H 182 H D POC Glucose AST 106 H D ALT 89 H D Alkaline Phosphatase 209 H 511 H C-Reactive Protein NT-Pro-B Natriuret Pep Albumin 3.3 L D 3.3 L Globulin 3.4 H 3.6 H Albumin/Globulin Ratio 1.0 L 0.9 L Urine Blood Ur Leukocyte Esterase Assessment and Plan *Assessment and plan (1) Primary pulmonary hypertension: Status: Acute Category: Medical Code(s): I27.0 - Primary pulmonary hypertension (2) Acute and chronic respiratory failure with hypoxia: Status: Acute Category: Medical Code(s): J96.21 - Acute and chronic respiratory failure with hypoxia Plan Ms. Flannery is a 69 year-old female no significant smoking history, obesity, high risk for sleep apnea recently had a diagnosis of pulmonary hypertension status post right heart cath showed pulmonary hypertension with increased PVR at 12 ureña which also showed to have elevated wedge pressure at 18 initiated on a combination of Tadanafil and Macicentan for her pulmonary hypertension along with increasing dose of diuretics noted to have worsening hypotensive episodes presented to the ER and pulmonary was consulted for further evaluation and management. Patient CT abdomen findings are also consistent with cirrhosis. Child-Cruz score A. Patient on admission was initiated on Levophed secondary to hypotensive episodes and then was started on milrinone. Her home diuretics along with pulmonary hypertension medications were held. Since this morning patient hemodynamics improved. Both Levophed and milrinone drips were discontinued. Plan: Continue oxygen supplementation to maintain O2 saturation goal of 90% and above Initiate macitentan 10 mg daily. Will follow with hemodynamics and consider initiating tadalafil subsequently Volume optimization as per cardiology. Continue antibiotics for the noted urinary tract infection
--- NOTE | 2024-10-21 09:45 | XR_ITS ---
FINAL REPORT CLINICAL HISTORY: Shortness of breath COMPARISON: 10/18/2024 FINDINGS: The heart size is mildly enlarged. The mediastinum is normal. Chronic changes are seen in both lungs. There is scarring at the left lung base. There are no pleural effusions. There is no pneumothorax. There is no osseous abnormality. IMPRESSION: No acute cardiopulmonary process Reviewed, Interpreted and Dictated by Zac Walsh MD Transcribed by Rula Mackenzie Authenticated and [facility]
--- NOTE | 2024-10-21 09:56 | HMH.OTEV ---
OT Inpatient Evaluation Rehab OT IP Evaluation Start: 10/21/24 08:00 Freq: ONCE Status: Active Protocol: Document 10/21/24 09:51 NICHOLASCOOKIE (Rec: 10/21/24 09:55 DREAD [id number]) Rehab OT IP Assessment Subjective History This is the ER doctors dictation directly below Patient is a 69-year-old female with past medical history of severe tricuspid regurgitation who was deemed not a surgical candidate by [facility] released back to Dr. Carreno here, recently started on pulmonary antihypertensives that have not been well-tolerated, modification of her diuresis regimen over the last month, cirrhosis of the liver who presents to the emergency department for evaluation of dizziness and acute on chronic shortness of breath and functional decline. History is obtained by patient and family members at bedside, patient has had a subacute decline over the last 4 weeks which has gotten much worse as of late. She is not a surgical candidate for her tricuspid valve she has severe right ventricular dilatation with reduction in RV function biatrial dilatation, there is normal LV systolic function, she has severe tricuspid regurgitation with a markedly elevated RVSP of greater than 60 mm per her recent echocardiogram. She denies chest pain, there were send here at the behest of Dr. Valdez to see about goals of care versus investigation versus maximal medical therapy. No other acute complaints at this time. Patient being placed on the floor for care and comfort at this point in time question whether hospice will be a decision for her at this point in time. The patient is no longer a surgical candidate to replace the valve. . Placed on the floor patient did not want any labs or intrusions.. Her wishes will be followed. Her medication can be looked at to see if anything can be adjusted to help improve her status. And then depending upon what the patient decides question hospice to be able to go home or needs long-term care. Have conferred with the nurse on the floor that if the patient needs anything to contact me we will try to provide it. Subjective I can take a few steps. Patient lives in 1 story home with ramp with 2 daughters and a son-in-law. Dependent on 02. Hx of services/paid services to assist with bathing, meal prep and cooking/cleaning. Independently able to ambulate within home with usage of RW. Independently able to d/d TB drsg and toileting. Objective Patient Orientation Place,Name Right Upper WFL Extremity Gross ROM Left Upper Extremity WFL Gross ROM Transfer Training Sit/Stand/Step Transfer Assist Level Minimal x 2 (25% assist) Chair Transfer Sit to/from Ambulatory Technique Chair Transfer Rolling Walker Assistive Devices Rehab OT IP prob,goals,plan Problems Date of Evaluation: 10/21/24 OT IP Problems Bed Mobility,Transfers,Balance,Self care,Safety Rehab Potential Rehab Potential Good Equipment Needs Assistive Devices Rolling / Wheeled Walker Plan OT intervention Plan Bed Mobility,Transfers,Balance,Self care,Safety, Therapeutic Exercise OT Plan Frequency Daily Duration LOS Discharge Goals Sit to Stand Chair Minimal x 1 (25% assist) Transfer Ability Chair Transfer Minimal x 1 (25% assist) Ability Chair Transfer Sit to/from Ambulatory Technique Chair Transfer Rolling Walker Assistive Devices Discharge Plan OT Discharge Plan Recommend placement at this time. Patient to continue skilled OT IP services for environmental modification, safety awareness and independence with ADLs and fx'l mobility. Eval Complexity Eval Charge Codes 93062 - Low Complexity PHYSICIAN CERTIFICATION: I certify the specified therapy services for Rica Flannery are required, authorized, and reviewed every 30 days.
[2024-10-21 11:35] LABS: Lactate Venous 2.0 mmol/L (0.4-2.0); VBG HCO3 26.6 mmol/L (23-30); VBG PCO2 43.8 mmol/L (35-51); VBG PH 7.40 mmol/L (7.31-7.41); VBG PO2 106.6 mmol/L (28-40)
[2024-10-21 11:55] LABS: NT Pro Brain Natriuretic Pep. 15900 pg/mL (0-125)
[2024-10-21 11:57] LABS: Troponin I 0.06 ng/ml (0.00-0.034)
[2024-10-21] MEDS: humaLOG 100 UNITS/ML 10ML VIAL (SSI) SUBCUT (12:07)
[2024-10-21 12:11] LABS: C-Reactive Protein 182.7 mg/L (0-4)
[2024-10-21 12:24] LABS: Procalcitonin 0.884 ng/mL (0.0-2.0)
--- NOTE | 2024-10-21 13:35 | EXP.ACUTE.PN ---
Subjective *Date: 10/21/24 *Time: 22:09 Interval history: Pleasant on exam this morning. Daughter at bedside. Continues to require supplemental oxygen at 3 L. White count slightly increased. No fever overnight. Tolerating breakfast. Blood pressure improving. Weaned off pressors this morning right before rounds. Denies chest pain or nausea Medical Exam Vital signs and Labs for Last 24 Hours: Vital Signs Temp Pulse Resp BP Pulse Ox O2 Del Method O2 Flow Rate 10/21/24 13:00 Nasal Cannula 2 10/21/24 13:00 98.5 F 81 16 104/56 L 99 Nasal Cannula 2 10/21/24 12:00 99 Nasal Cannula 2 10/21/24 12:00 98.1 F 82 16 101/39 L 99 Nasal Cannula 2 10/21/24 12:00 79 10/21/24 11:00 86 18 85/46 L 99 Nasal Cannula 3 10/21/24 11:00 Nasal Cannula 2 10/21/24 11:00 98.0 F 84 16 96/52 L 98 Nasal Cannula 2 10/21/24 10:06 85 22 79/45 L 95 Nasal Cannula 3 10/21/24 10:00 85 13 100 10/21/24 09:03 96 H 20 82/43 L 94 L Nasal Cannula 3 10/21/24 09:00 Nasal Cannula 2 10/21/24 08:00 98.7 F 89 12 130/87 95 Nasal Cannula 3 10/21/24 08:00 96 Nasal Cannula 3 10/21/24 08:00 102 H 10/21/24 07:36 98.1 F 87 16 134/66 93 L Nasal Cannula 3 10/21/24 07:00 Nasal Cannula 3 10/21/24 07:00 98.1 F 84 16 96/47 L 93 L Nasal Cannula 3 10/21/24 06:41 83 16 94/49 L 95 Nasal Cannula 3 10/21/24 06:30 89 16 96/38 L 94 L Nasal Cannula 3 10/21/24 06:00 85 18 103/56 L 94 L Nasal Cannula 3 10/21/24 05:30 95 H 16 93/53 L 94 L Nasal Cannula 3 10/21/24 05:00 97 H 16 104/52 L 95 Nasal Cannula 3 10/21/24 05:00 Nasal Cannula 3 10/21/24 04:30 98 H 16 95/48 L 95 Nasal Cannula 3 10/21/24 04:00 100.6 F H 89 18 97/50 L 95 Nasal Cannula 3 10/21/24 04:00 Nasal Cannula 3 10/21/24 04:00 95 H 10/21/24 03:30 91 H 18 110/52 L 94 L Nasal Cannula 3 10/21/24 03:15 98 H 16 107/56 L 94 L Nasal Cannula 3 10/21/24 03:00 89 18 109/49 L 95 Nasal Cannula 3 10/21/24 03:00 Nasal Cannula 3 10/21/24 02:45 91 H 16 107/52 L 93 L Nasal Cannula 3 10/21/24 02:30 96 H 18 96/52 L 94 L Nasal Cannula 3 10/21/24 02:21 86 6 L 97/44 L 96 Nasal Cannula 3 10/21/24 02:15 85 18 88/50 L 95 Nasal Cannula 3 10/21/24 02:00 97 H 20 93/46 L 95 Nasal Cannula 3 10/21/24 01:45 97 H 18 87/48 L 95 Nasal Cannula 3 10/21/24 01:30 98 H 16 107/50 L 94 L Nasal Cannula 3 10/21/24 01:16 99 H 20 94/46 L 92 L Nasal Cannula 3 10/21/24 01:00 98 H 18 101/44 L 94 L Nasal Cannula 3 10/21/24 01:00 Nasal Cannula 3 10/21/24 00:45 98 H 18 104/48 L 95 Nasal Cannula 3 10/21/24 00:30 97 H 16 118/60 94 L Nasal Cannula 3 10/21/24 00:15 96 H 18 109/51 L 97 Nasal Cannula 3 10/21/24 00:00 96 H 16 114/60 94 L Nasal Cannula 3 10/21/24 00:00 Nasal Cannula 3 10/21/24 00:00 100 H 10/20/24 23:46 95 H 18 120/57 L 94 L Nasal Cannula 3 10/20/24 23:15 99 H 18 103/45 L 93 L Nasal Cannula 3 10/20/24 23:00 98 H 18 98/50 L 95 Nasal Cannula 3 10/20/24 23:00 Nasal Cannula 3 10/20/24 22:45 99 H 20 103/50 L 94 L Nasal Cannula 3 10/20/24 22:40 80/48 L 10/20/24 22:30 99 H 16 86/49 L 93 L Nasal Cannula 3 10/20/24 22:23 98 H 20 98/39 L 94 L Nasal Cannula 3 10/20/24 22:15 92 H 20 84/47 L 94 L Nasal Cannula 3 10/20/24 22:00 94 H 20 103/54 L 93 L Nasal Cannula 3 10/20/24 21:45 98 H 16 109/53 L 94 L Nasal Cannula 3 10/20/24 21:30 100 H 16 95/54 L 94 L Nasal Cannula 3 10/20/24 21:20 90 20 94/46 L 93 L Nasal Cannula 3 10/20/24 21:00 95 H 16 96/49 L 94 L Nasal Cannula 3 10/20/24 21:00 Nasal Cannula 3 10/20/24 20:45 94 H 16 95/52 L 94 L Nasal Cannula 3 10/20/24 20:31 93 H 16 112/48 L 94 L Nasal Cannula 3 10/20/24 20:15 104 H 18 104/63 L 94 L Nasal Cannula 3 10/20/24 20:08 98.3 F 94 H 20 102/57 L 94 L Nasal Cannula 3 10/20/24 20:00 Nasal Cannula 3 10/20/24 20:00 94 H 10/20/24 19:45 95 H 20 90/46 L 95 Nasal Cannula 3 10/20/24 19:30 92 H 18 100/48 L 94 L Nasal Cannula 3 10/20/24 19:17 95 H 20 90/44 L 95 Nasal Cannula 3 10/20/24 18:57 Nasal Cannula 3 10/20/24 18:56 100 H 16 101/54 L 95 Nasal Cannula 3 10/20/24 18:51 Nasal Cannula 3 10/20/24 18:00 95 H 16 80/42 L 95 Nasal Cannula 3 10/20/24 17:00 Nasal Cannula 3 10/20/24 17:00 15 91/50 L 94 L Nasal Cannula 3 10/20/24 16:00 95 Nasal Cannula 3 10/20/24 16:00 95 Nasal Cannula 3 10/20/24 16:00 90 10/20/24 16:00 98.9 F 96 H 15 97/58 L 94 L Nasal Cannula 3 10/20/24 15:00 89 20 89/44 L 95 Nasal Cannula 3 10/20/24 15:00 Nasal Cannula 3 10/20/24 15:00 88 18 89/44 L 95 Nasal Cannula 3 10/20/24 14:00 88 12 93/36 L 96 Nasal Cannula 3 10/20/24 14:00 91 H 18 93/36 L 95 Nasal Cannula 3 Intake and Output 10/20/24 10/21/24 10/21/24 23:59 07:59 15:59 Intake Total 117.125 / 2859.259 3011.938 / 1927.876 730.938 / 1927.876 Output Total 700 / 2525 850 / 1450 600 / 1450 Balance -582.875 / -1134.905 346.938 / 477.876 130.938 / 477.876 Intake: Intake, Oral Amount 600 / 1160 560 / 1160 Intake, Total IV Amount 117.125 / 494.095 596.938 / 767.876 170.938 / 767.876 Ceftriaxone 1 gm 1 gm In 0.9 % 50 / 50 Sodium Chloride 50 ml @ 100 mls /hr IV Q24H KATHY Rx#:[id number] Milrinone Lactate 20 mg In 0.9 270 / 270 % Sodium Chloride 80 ml @ 0.125 MCG/KG/MIN 3.943 mls/hr IV . Q24H KATHY Rx#:[id number] Norepinephrine Bitartrate/D5w 8 117.125 / 354.000 326.938 / 447.876 120.938 / 447.876 mg In 250 ml @ 5 MCG/MIN 9.375 mls/hr IV .Q24H KATHY Rx#: [id number] Output: Output, Urine Amount 700 / 2525 850 / 1450 600 / 1450 Other: Number of Unmeasured Voids 1 0 0 Weight 105.46 kg Patient Weight 10/21/24 23:59 Weight 105.46 kg Laboratory Results - last 24 hr 10/21/24 04:47: WBC 17.8 H D, RBC 3.75 L, Hgb 8.2 L, Hct 27.9 L, MCV 74.4 L, MCH 21.9 L, MCHC 29.4 L, RDW 25.1 H*, Plt Count 395, MPV 10.9 H, Neut % (Auto) 78.1, Lymph % (Auto) 5.9 L, [place] % (Auto) 13.7 H, Eos % (Auto) 1.4, Baso % (Auto) 0.4, Neut # (Auto) 13.9 H, Lymph # (Auto) 1.0, [place] # (Auto) 2.4 H, Eos # (Auto) 0.3, Baso # (Auto) 0.1, Total Counted 100, Neutrophils % (Manual) 82 H, Lymphocytes % (Manual) 3 L, Monocytes % (Manual) 14 H, Eosinophils % (Manual) 1, Platelet Estimate Normal, RBC Morphology Normal, Sodium 131 L, Potassium 4.8, Chloride 99, Carbon Dioxide 27, Anion Gap 9.8, BUN 45 H, Creatinine 1.10 H, Estimated Creat Clear 78, Estimated GFR 49 L, Est GFR ( Amer) 59, Glucose 182 H D, Calcium 9.0, Magnesium 1.6 D, Total Bilirubin 1.2, AST 106 H D, ALT 89 H D, Alkaline Phosphatase 511 H, Total Protein 6.9, Albumin 3.3 L, Globulin 3.6 H, Albumin/Globulin Ratio 0.9 L 10/21/24 09:46: VBG pH 7.40, VBG pCO2 43.8, VBG pO2 106.6 H, VBG HCO3 26.6, VBG Total CO2 28.0 H, VBG O2 Saturation 98.0 H, VBG Base Excess 1.9, VBG Lactic Acid 2.0 10/21/24 11:21: Troponin I 0.06 H, C-Reactive Protein 182.7 H, NT-Pro-B Natriuret Pep 66022 H, Procalcitonin 0.884 10/21/24 12:58: Lactate 1.6 I & O for Labs for Last 24 Hours: Intake & Output 10/18/24 10/19/24 10/20/24 10/21/24 23:59 23:59 23:59 23:59 Intake Total 1320 / 1680 1757.285 / 8701.035 2581.095 / 9689.630 5826.876 / 1927.876 Output Total 1575 / 1575 2600 / 3350 2525 / 2525 1450 / 1450 Balance -255 / 105 -842.715 / -1592.715 -1374.905 / -1134.905 477.876 / 477.876 Weight 104.508 kg 105.143 kg 102.467 kg 105.46 kg Microbiology Reports for the Last 24 Hours: Microbiology 10/19/24 19:19 Sputum - Expectorated Sputum Gram Stain - Final 10/19/24 19:19 Sputum - Expectorated Sputum Sputum Culture - Preliminary 10/18/24 19:52 Urine,Clean Catch Urine Culture - Final Escherichia coli 10/18/24 18:10 Blood Blood Culture - Preliminary NO GROWTH AFTER 48 HOURS 10/18/24 18:12 Blood Blood Culture - Preliminary NO GROWTH AFTER 48 HOURS Constitutional: Present mild distress, obese, chronically ill appearing and cooperative Head: Present atraumatic and normocephalic ENT: Present normal exam Neck: Present normal inspection Respiratory: Present distant breath sounds and diminished air movement; Absent respiratory distress, rhonchi, wheezes or crackles Cardiac: Present Reg Rate and Rhythm and Audible Murmur Comment:: Frequent PVCs GI: Present soft and normal bowel sounds; Absent distention or tenderness Extremities: Present normal inspection and full ROM; Absent edema (Bilateral stasis dermatitis) Skin: Present intact and wounds; Absent erythema Neuro: Present Grossly Intact, alert, awake, oriented x 3 and moves all extremities Assessment and Plan *Assessment and plan (1) Cor pulmonale: Status: Acute Category: Medical Code(s): I27.81 - Cor pulmonale (chronic) (2) Primary pulmonary hypertension: Status: Acute Category: Medical Code(s): I27.0 - Primary pulmonary hypertension (3) (HFpEF) heart failure with preserved ejection fraction: Status: Acute Qualifiers: Heart failure chronicity: acute on chronic Qualified Code(s): I50.33 - Acute on chronic diastolic (congestive) heart failure Category: Medical Code(s): I50.30 - Unspecified diastolic (congestive) heart failure (4) Hypertension: Status: Acute Category: Medical Code(s): I10 - Essential (primary) hypertension (5) Asplenia: Status: Chronic Category: Medical Code(s): Q89.01 - Asplenia (congenital) (6) Severe tricuspid regurgitation: Status: Chronic Category: Medical Code(s): I07.1 - Rheumatic tricuspid insufficiency (7) Diabetes mellitus type 2 in obese: Status: Chronic Category: Medical Code(s): E11.69 - Type 2 diabetes mellitus with other specified complication; E66.9 - Obesity, unspecified (8) Obesity: Status: Chronic Qualifiers: Body mass index: BMI 31.0-31.9 Obesity classification: adult class 1 (BMI 30 - 34.9) Obesity type: due to excess calories Serious obesity comorbidity presence: with serious comorbidity Qualified Code(s): E66.09 - Other obesity due to excess calories; Z68.31 - Body mass index [BMI] 31.0-31.9, adult Category: Medical Code(s): E66.9 - Obesity, unspecified (9) Atrial fibrillation: Status: Chronic Qualifiers: Atrial fibrillation type: longstanding persistent Qualified Code(s): I48.11 - Longstanding persistent atrial fibrillation Category: Medical Code(s): I48.91 - Unspecified atrial fibrillation Plan Rica Flannery is a 69-year-old female with a medical history significant for severe right heart failure/cor pulmonale from pulmonary hypertension, asplenia, paroxysmal A-fib, CAD, type 2 diabetes, anxiety/depression, GERD presents with dizziness, exercise intolerance for the past month and was admitted for further evaluation of the same. Problems addressed as follows: #Pulmonary hypertension with cor pulmonale #Hypotension #WALE on CKD #Uremia #Medication side effect ? Patient has underlying pulmonary hypertension with concomitant cor pulmonale, possibly related to undiagnosed sleep apnea. - Reviewed right and left heart cath removal. Consistent with primary pulmonary hypertension. Right heart failure severe. Pulmonary artery pressures equal to systemic pressures. ? Has recently been started on tadalafil, macitentan a week prior to admission by [facility] team member for pulmonary hypertension likely contributing to hypotension, acute renal failure. ? Weaned off Levophed and milrinone today. Discussed case with pulmonology and cardiology. Recommend resuming if tolerated some of her medications for pulmonary hypertension given the etiology. - Will resume Bumex 1 mg p.o. once daily. Resume tadalafil 20 mg daily. Will evaluate additional medications in the morning. ? At the same time, extensively discussed with family regarding severity of condition. With cor pulmonale causing significant systemic symptoms with endorgan failure and challenges with outpatient treatment for pulmonary hypertension, discussed with family about irreversibility of some of this. They understand the severity of the situation, and if above treatment is not successful that prognosis would be poor. Patient and family stated they would want hospice care in the event above treatment is not successful. ? Hold home Farxiga, metoprolol, Entresto, spironolactone, macitentan. ? TSH normal. Follow-up morning cortisol within normal range ? Urine growing E. coli. - Creatinine 1.1, BUN 45. Showing gradual improvement daily. Potassium 4.8, magnesium 1.6. -Repeat CBC, CMP, magnesium ordered for the morning. # E. coli UTI #Suspected community-acquired pneumonia ? UA grossly abnormal, CXR suggestive of left basilar pneumonia. WBC improved from 16-13. Concern for reactive versus infectious source. ? However CRP low, procalcitonin normal making infection less likely to be the contributor of hypotension. ? Urinalysis greater than 100,000 CFU's of E. coli. Sensitive to cephalosporins. Continue ceftriaxone 1 g daily IV. #Pulmonary hypertension #Severe RV failure/cor pulmonale #Severe tricuspid regurgitation ? Presented with dizziness, exercise intolerance over the past month. Evaluated by [facility] recently for consideration of triclip for severe tricuspid regurgitation however she was not a good candidate. ? ECHO August 2024 shows markedly elevated RVSP >60 mmHg, severe RV dilatation with failure. EF preserved ? Has underlying pulmonary hypertension, has not been evaluated for sleep apnea or sleep study. Has one scheduled for November 2024. ? Resume gentle diuresis today with Bumex 1 mg p.o. ? Patient needs urgent consideration for a sleep study after discharge. #History of asplenia: Hypotensive, follow-up infectious workup as above. #Physical deconditioning #Depression ? Patient's recently. ? Continue home duloxetine 60 mg daily, nortriptyline 25 mg daily. - Therapy recommends skilled rehab at discharge, case management assisting. Discussed options today. Family would like to pursue rehab and hold on hospice pending patient's improvement. Reevaluate palliative/hospice pending her response to medication resumption and tolerance of therapy Chronic medical problems: #Paroxysmal A-fib: Currently rate controlled. Continue home Eliquis 5 mg twice daily. Hold home metoprolol due to hypotension. #CAD: Continue home aspirin, statin. DNR/DNI DVT prophylaxis: Eliquis
--- NOTE | 2024-10-21 15:03 | EXP.CARD.CON ---
History of Present Illness History of Present Illness Consult date: 10/21/24 Requesting physician: Brandon Oconnor Chief complaint: weakness History of present illness: 69-year-old white female established patient of our office with history of severe end-stage cor pulmonale with presumed primary pulmonary hypertension, severe RV dilation, severe tricuspid regurgitation. No known hx of pulmonary disease. Patient presented to the emergency room and was admitted on 10/17 with weakness fatigue and shortness of breath. We are consulted given her CV history. Patient's last office visit was in August where she was seen by Dr. Miranda and referred to [facility] to consider Tri-clip. She had right and left heart catheter showing nonobstructive coronary artery disease and severe pulmonary hypertension with moderate RV dilation. They reportedly quadrupled her Bumex and started her on tadalafil and macitentan and she was discharged home. Since then she has had worsening blood pressures. Her baseline is reportedly 90s over 60s. Here she presented initially with a blood pressure 70s to 80s systolic, sodium 126, creatinine 2.7-up from 1.3, proBNP 6000, CRP 35, worsening AST ALT and alk phos. She was admitted over the weekend and given fluids and has had subsequent improvement in creatinine and sodium. At this point she reports feeling back to her baseline. She reports prior to the pulmonary hypertension medications being initiated she had been feeling pretty well and able to travel to country with her daughter without volume overload. They feel that the new medicines were too much and have dropped her blood pressure significantly. I am inclined to agree with this assessment [facility] Disclaimer: The information contained in this section may have been updated after the patient was seen, as this information can be updated by other users. Medical History Acute and chronic respiratory failure with hypoxia Cor pulmonale Hypertension Abnormal abdominal CT scan Peripheral arterial disease Primary pulmonary hypertension Type 2 diabetes mellitus with foot ulcer UTI (urinary tract infection) Renal insufficiency Hyperkalemia Hypotension CAD in [place] artery BMI 39.0-39.9,adult Chronic anemia Chronic anticoagulation Coronary artery disease Diabetes HFrEF (heart failure with reduced ejection fraction) Pulmonary hypertension Depression Constipation GERD (gastroesophageal reflux disease) Oxygen dependent Atrial fibrillation Surgical History Status post left heart catheterization Family History Other Alcohol abuse Family history of cancer Heart attack Social History Smoking Status: Never smoker alcohol intake: never current occupational status: unemployed Travel in the last 8 weeks?: None Have you lived/traveled outside US in past 30 days?: No Contact w/someone who lives/traveled outside US past 30 days?: No Exposure to someone with infectious disease in past 14 days?: No Do you have a fever (greater than 100.4 F or 38 C)?: No Have you tested positive for COVID-19?: No Exposed to someone with COVID-19 in past 14 days?: No Do you have a sore throat?: No Do you have a cough?: No Do you have any weakness?: No Do you have any diarrhea?: No Are you experiencing any unusual bleeding?: No Do you have any muscle aches/pain?: No Do you have any abdominal pain?: No Are you experiencing loss of taste or smell?: No Review of Systems Constitutional Constitutional: Denies fatigue and Denies weakness Eyes Eyes: Denies loss of vision ENT Ears, Nose, Mouth, and Throat: Denies hearing loss *Cardiovascular Cardiovascular: Denies chest pain and Denies dyspnea *Respiratory Respiratory: Denies cough and Denies dyspnea *Gastrointestinal Gastrointestinal: Denies change in stool character, Denies nausea and Denies vomiting *Musculoskeletal Musculoskeletal: Denies muscle weakness Integumentary/Breasts Skin/Breast: Denies changing lesions *Neurologic Neurologic: Reports as per HPI, Denies loss of vision and Denies weakness Endocrine Endocrine: Denies fatigue Exam Data for Last 24 hours Vital signs and Labs for Last 24 Hours: Temp Pulse Resp BP Pulse Ox O2 Del Method O2 Flow Rate 98.3 F 83 16 99/56 L 99 Nasal Cannula 2 10/21/24 14:48 10/21/24 14:48 10/21/24 14:48 10/21/24 14:48 10/21/24 14:48 10/21/24 14:50 10/21/24 14:50 Laboratory Results - last 24 hr 10/21/24 04:47: WBC 17.8 H D, RBC 3.75 L, Hgb 8.2 L, Hct 27.9 L, MCV 74.4 L, MCH 21.9 L, MCHC 29.4 L, RDW 25.1 H*, Plt Count 395, MPV 10.9 H, Neut % (Auto) 78.1, Lymph % (Auto) 5.9 L, [place] % (Auto) 13.7 H, Eos % (Auto) 1.4, Baso % (Auto) 0.4, Neut # (Auto) 13.9 H, Lymph # (Auto) 1.0, [place] # (Auto) 2.4 H, Eos # (Auto) 0.3, Baso # (Auto) 0.1, Total Counted 100, Neutrophils % (Manual) 82 H, Lymphocytes % (Manual) 3 L, Monocytes % (Manual) 14 H, Eosinophils % (Manual) 1, Platelet Estimate Normal, RBC Morphology Normal, Sodium 131 L, Potassium 4.8, Chloride 99, Carbon Dioxide 27, Anion Gap 9.8, BUN 45 H, Creatinine 1.10 H, Estimated Creat Clear 78, Estimated GFR 49 L, Est GFR ( Amer) 59, Glucose 182 H D, Calcium 9.0, Magnesium 1.6 D, Total Bilirubin 1.2, AST 106 H D, ALT 89 H D, Alkaline Phosphatase 511 H, Total Protein 6.9, Albumin 3.3 L, Globulin 3.6 H, Albumin/Globulin Ratio 0.9 L 10/21/24 09:46: VBG pH 7.40, VBG pCO2 43.8, VBG pO2 106.6 H, VBG HCO3 26.6, VBG Total CO2 28.0 H, VBG O2 Saturation 98.0 H, VBG Base Excess 1.9, VBG Lactic Acid 2.0 10/21/24 11:21: Troponin I 0.06 H, C-Reactive Protein 182.7 H, NT-Pro-B Natriuret Pep 70006 H, Procalcitonin 0.884 10/21/24 12:58: Lactate 1.6 I & O for Last 24 hours: Intake & Output 10/18/24 10/19/24 10/20/24 10/21/24 23:59 23:59 23:59 23:59 Intake Total 1320 / 1680 1757.285 / 0022.358 3644.095 / 9826.261 1244.876 / 1927.876 Output Total 1575 / 1575 2600 / 3350 2525 / 2525 1600 / 1600 Balance -255 / 105 -842.715 / -1592.715 -1374.905 / -1134.905 327.876 / 327.876 Weight 230 lb 6.4 oz 231 lb 12.8 oz 225 lb 14.4 oz 232 lb 8 oz Microbiology Reports for the Last 24 Hours: Microbiology 10/19/24 19:19 Sputum - Expectorated Sputum Gram Stain - Final 10/19/24 19:19 Sputum - Expectorated Sputum Sputum Culture - Preliminary 10/18/24 19:52 Urine,Clean Catch Urine Culture - Final Escherichia coli 10/18/24 18:10 Blood Blood Culture - Preliminary NO GROWTH AFTER 48 HOURS 10/18/24 18:12 Blood Blood Culture - Preliminary NO GROWTH AFTER 48 HOURS Constitutional Constitutional: no acute distress and cooperative *Routine HEENT Exam Eye: Present PERRL *Routine Respiratory Exam Respiratory: Present CTA bilaterally; Absent accessory muscle use, wheezes or crackles *Routine Cardiovascular Exam Cardiovascular: Present RRR, Normal S1 and Normal S2; Absent murmur, gallop or rubs *Routine Abdominal Exam Abdominal: Present distended and firm; Absent tenderness *Routine Extremities Exam Extremities: Present pulses intact; Absent cyanosis or edema *Routine Skin Exam Skin: Present intact; Absent erythema or wounds *Routine Neurological Exam Neurological: Present alert and oriented X3 Routine Psychiatric Exam Psychiatric: Present cooperative Meds Home Medications and Allergies Home Medications ?Medication ?Instructions ?Recorded ?Confirmed ?Type acetaminophen 500 mg tablet 1,000 mg PO Q6H PRN Mild Pain 05/09/24 10/17/24 History (Tylenol Extra Strength) (Scale Score 1-4) atorvastatin 40 mg tablet 40 mg PO HS #90 tabs 06/02/24 10/17/24 Rx pantoprazole 40 mg tablet,delayed 40 mg PO HS #90 tabs 06/09/24 10/17/24 Rx release tirzepatide 5 mg/0.5 mL 5 mg (0.5 mL) SQ WEEKLY #2.5 mL 07/22/24 10/17/24 Rx subcutaneous pen injector zolpidem 5 mg tablet (Ambien) 5 mg PO HS PRN sleep #30 tabs 08/26/24 10/17/24 Rx nystatin 100,000 unit/gram topical 1 applic topical BID PRN 09/30/24 10/17/24 History powder Excoriation apixaban 5 mg tablet (Eliquis) 5 mg PO BID 10/17/24 10/17/24 History aspirin 81 mg tablet,delayed 81 mg PO DAILY 10/17/24 10/17/24 History release dapagliflozin propanediol 10 mg 10 mg PO DAILY 10/17/24 10/17/24 History tablet (Farxiga) duloxetine 60 mg capsule,delayed 60 mg PO DAILY 10/17/24 10/17/24 History release famotidine 20 mg tablet 20 mg PO DAILY 10/17/24 10/17/24 History macitentan 10 mg tablet (Opsumit) 10 mg PO DAILY 10/17/24 10/17/24 History melatonin 5 mg tablet 5 mg PO HS 10/17/24 10/17/24 History nortriptyline 25 mg capsule 25 mg PO HS 10/17/24 10/17/24 History sacubitril 24 mg-valsartan 26 mg 1 tab PO BID 10/17/24 10/17/24 History tablet (Entresto) sennosides 8.6 mg-docusate sodium 1 tab PO DAILY 10/17/24 10/17/24 History 50 mg tablet (Senexon-S) spironolactone 25 mg tablet 25 mg PO DAILY 10/17/24 10/17/24 History tadalafil (pulm. hypertension) 20 20 mg PO DAILY 10/17/24 10/17/24 History mg tablet (pulmonary hypertension) bumetanide 1 mg tablet 1 mg PO DAILY 10/18/24 10/18/24 History ferrous sulfate 325 mg (65 mg 325 mg PO Q48H 10/18/24 10/18/24 History iron) tablet (Feosol) metoprolol succinate 25 mg 25 mg PO DAILY 10/18/24 10/18/24 History tablet,extended release 24 hr New Prescriptions to Start Prescriptions: Allergies Allergy/AdvReac Type Severity Reaction Status Date / Time levofloxacin Allergy Verified 10/02/24 10:58 meperidine Allergy Verified 10/02/24 10:58 Assessment and Plan *Assessment and plan (1) Primary pulmonary hypertension: Status: Acute Category: Medical Code(s): I27.0 - Primary pulmonary hypertension (2) Cor pulmonale: Status: Acute Category: Medical Code(s): I27.81 - Cor pulmonale (chronic) (3) Tricuspid regurgitation: Status: Acute Qualifiers: Cardiac valve disease etiology: etiology unspecified Qualified Code(s): I07.1 - Rheumatic tricuspid insufficiency Category: Medical Code(s): I07.1 - Rheumatic tricuspid insufficiency Plan Iatrogenic Hypotension with Hypotensive Shock - systolic BP 60s-70s due to new meds, associated symptoms and WALE - symptoms improving with volume resusc, Milrinone, and holding antihypertensives - consider slowly resuming home meds when BP will tolerate, still currently on Milrinone Chronic End Stage RHF, Cor Pulmonale, Severe TR - known dx with ECHO 2022 showing: severe PHTn, Severe, RV dilation/dysfunction, and severe TR - repeat ECHO 2024 showed no changed - [facility] evaluation 08/2024 -right heart cath measurements consistent with existing diagnosis. Left heart cath showed nonobstructive disease consistent with heart cath in 2022. Per family patient was deemed not a candidate for Tri clip. Office notes with this assessment are not available at this time. - This appears to be primary pulmonary hypertension as patient does not have any known chronic lung disease. She does need outpatient sleep study - Consider resuming tadalafil or macitentan if BP will tolerate - Resume home dose Bumex 1 mg daily as needed. PAF - known dx, rate controlled and asymptomatic here - cont home dose Eliquis and Metoprolol Non-obstructive CAD - per [facility] 2022 here and at [facility] 08/2024 - pt denies angina - cont Eliquis, BB, Statin
[2024-10-21] MEDS: POLYETHYLENE GLYCOL 3350 17 GM PACKET PO (15:15)
--- NOTE | 2024-10-21 17:18 | EXP.EVENT.NO ---
Advance care planning note: Active diagnosis: Severe pulmonary hypertension, end-stage right-sided heart failure, cirrhosis, cardiogenic shock, WALE, pneumonia and UTI The patient's active diagnoses are of sufficient risk that focused discussion on advanced care planning is indicated in order to allow the patient to thoughtfully consider personal goals of care; and, if situations arise that prevent the ability to personally give input, to ensure appropriate representation of their personal desires through documentation or informed surrogate decision makers. Discussion: Persons present and participating in discussion: Daughter, patient, myself Discussion: Discussed severity of patient's illness. Attempted treatments as an outpatient that led to her presentation with hypotension and WALE. Discussed plans of resuming treatments cautiously given her improvement in kidney function. If treatments do not benefit her heart failure and pulmonary hypertension however or she cannot tolerate them, given the severity of her disease, family would like to consider hospice. Discussed severity of her illness, prognosis, impact on quality of life and duration of life. They also would like to consider therapy prior to hospice to see if she can improve functionality for improved quality of life while attempting medications for pulmonary hypertension. If she does not do well however, they would like to consider hospice to bring her home and improve quality and comfort for her remaining days. Time spent: Total time spent [id number] in education and discussion directly related to advance care plannin minutes Brandon Oconnor 10/21/2024
[2024-10-21] MEDS: BUMETANIDE 1 MG TABLET PO (17:47)
[2024-10-21 18:10] LABS: Cortisol,AM 21.9 ug/dL (6.2-19.4)
[2024-10-21 18:23] LABS: POC Glucose,Bedside 223 gm/dL (70-110)
[2024-10-21 18:23] LABS: POC Glucose,Bedside 149 gm/dL (70-110)
[2024-10-21 18:23] LABS: POC Glucose,Bedside 191 gm/dL (70-110)
[2024-10-21 18:23] LABS: POC Glucose,Bedside 253 gm/dL (70-110)
[2024-10-21] MEDS: PANTOPRAZOLE 40MG TABLET 40 MG PO (20:13)
[2024-10-21] MEDS: MELATONIN 5MG TABLET 5 MG PO (20:13)
[2024-10-21 20:16] LABS: POC Glucose,Bedside 150 gm/dL (70-110)
[2024-10-21] MEDS: TIZANIDINE 4MG TABLET 2 MG PO (23:40)
[2024-10-22] VITALS (22 sets, daily range): BP systolic 88–112; BP diastolic 40–61; PULSE 58–95; RESP 15–22; TEMP 36.4–37.1; O2SAT 83–100; BMI 39.9
[2024-10-22 06:19] LABS: Hematocrit 25.8 % (37.0-47.0); Hemoglobin 7.8 g/dL (12.2-16.2); Immature Granulocytes % 0.6 %; Mean Corpuscular HGB Conc 30.2 g/dL (31.8-35.4); Mean Corpuscular Hemoglobin 22.3 pg (27.0-31.2); Mean Corpuscular Volume 73.9 fl (81-99); Nucleated Red Blood Cells % 0 %; Platelet Count 429 K/mm3 (142-424); Red Blood Count 3.49 M/mm3 (4.20-5.40); Red Cell Distribution Width-SD 64.8 fL; White Blood Count 13.0 K/mm3 (4.8-10.8)
[2024-10-22 06:30] LABS: Alanine Aminotransferase 87 U/L (12-78); Albumin Level 3.0 g/dl (3.5-5.0); Albumin/Globulin Ratio 0.9 (1.1-1.8); Alkaline Phosphatase 391 U/L (38-126); Anion Gap 9.5 mEq/L (5-15); Aspartate Amino Transferase 88 U/L (14-36); Bilirubin,Total 0.6 mg/dl (0.2-1.3); Blood Urea Nitrogen 41 mg/dl (7-17); Calcium 8.9 mg/dl (8.4-10.2); Carbon Dioxide 27 mmol/L (22.0-30.0); Chloride 101 mmol/L (98-107); Creatinine Clearance Estimated 79 mL/min (50-200); Creatinine,Serum 1.10 mg/dl (0.52-1.04); Estimated Glomerular Filt Rate 49 ml/min (>60); GFR (African American) 59 ML/MIN (>60); Globulin 3.4 g/dL (1.3-3.2); Glucose 119 mg/dl (74-100); Magnesium 1.6 mg/dl (1.6-2.3); Potassium 4.5 mmoL/L (3.5-5.1); Sodium 133 mmol/L (136-145); Total Protein,Serum 6.4 g/dl (6.3-8.2)
[2024-10-22 06:36] LABS: POC Glucose,Bedside 129 gm/dL (70-110)
--- NOTE | 2024-10-22 08:28 | EXP.PHA.PN ---
Subjective *Date: 10/22/24 *Time: 08:28 Medical Exam Vital signs and Labs for Last 24 Hours: Vital Signs Temp Pulse Pulse Resp BP Pulse Ox O2 Del Method 10/22/24 08:00 87 10/22/24 08:00 97.6 F 95 H 20 111/60 87 L Room Air 10/22/24 07:00 75 17 112/60 83 L Room Air 10/22/24 06:49 Room Air 10/22/24 06:00 65 18 112/57 L 100 Room Air 10/22/24 05:00 75 16 95/54 L 97 Room Air 10/22/24 05:00 Room Air 10/22/24 04:00 98.2 F 87 21 96/55 L 97 Room Air 10/22/24 03:00 Room Air 10/22/24 03:00 77 16 95/52 L 97 Room Air 10/22/24 02:00 79 15 108/58 L 96 Room Air 10/22/24 01:00 80 18 111/61 94 L Room Air 10/22/24 01:00 Room Air 10/22/24 00:00 98.7 F 94 H 20 96/53 L 98 Room Air 10/21/24 23:00 Nasal Cannula 10/21/24 23:00 89 16 114/58 L 92 L Room Air 10/21/24 22:00 83 20 111/61 94 L Room Air 10/21/24 21:45 82 21 111/64 92 L Room Air 10/21/24 21:00 77 23 108/55 L 92 L Room Air 10/21/24 21:00 Room Air 10/21/24 20:15 98.5 F 88 24 99/50 L 96 Room Air 10/21/24 20:00 78 10/21/24 20:00 83 93 L Room Air 10/21/24 19:00 88 15 112/49 L 92 L Room Air 10/21/24 18:31 94/45 L 10/21/24 18:31 19 10/21/24 18:30 26 H 10/21/24 18:16 105/69 L 10/21/24 18:16 18 10/21/24 18:15 26 H 10/21/24 18:14 18 10/21/24 18:14 79/62 L 10/21/24 18:01 97/29 L 10/21/24 18:01 13 10/21/24 18:00 13 10/21/24 17:46 125/81 10/21/24 17:46 23 10/21/24 17:45 15 10/21/24 17:30 112/60 10/21/24 17:30 92 H 17 93 L 10/21/24 17:15 70 23 92 L 10/21/24 17:00 74 21 95/48 L 90 L Room Air 10/21/24 17:00 Room Air 10/21/24 17:00 98.8 F 89 16 93/58 L 94 L Room Air 10/21/24 16:00 92 L Room Air 10/21/24 16:00 92 L Room Air 10/21/24 16:00 98.8 F 82 16 101/60 L 92 L Room Air 10/21/24 16:00 82 10/21/24 16:00 98.5 F 68 19 93/53 L 93 L Nasal Cannula 10/21/24 15:00 78 18 90/51 L 95 Nasal Cannula 10/21/24 14:50 Nasal Cannula 10/21/24 14:48 98.3 F 83 16 99/56 L 99 Nasal Cannula 10/21/24 14:00 81 20 110/60 97 Nasal Cannula 10/21/24 14:00 98.2 F 78 16 110/60 98 Nasal Cannula 10/21/24 13:00 83 17 104/56 L 99 Nasal Cannula 10/21/24 13:00 Nasal Cannula 10/21/24 13:00 98.5 F 81 16 104/56 L 99 Nasal Cannula 10/21/24 12:00 98.6 F 81 19 88/61 L 98 Nasal Cannula 10/21/24 12:00 99 Nasal Cannula 10/21/24 12:00 98.1 F 82 16 101/39 L 99 Nasal Cannula 10/21/24 12:00 79 10/21/24 11:00 86 18 85/46 L 99 Nasal Cannula 10/21/24 11:00 Nasal Cannula 10/21/24 11:00 98.0 F 84 16 96/52 L 98 Nasal Cannula 10/21/24 10:06 85 22 79/45 L 95 Nasal Cannula 10/21/24 10:00 85 13 100 10/21/24 09:03 96 H 20 82/43 L 94 L Nasal Cannula 10/21/24 09:00 Nasal Cannula O2 Flow Rate 10/22/24 08:00 10/22/24 08:00 10/22/24 07:00 10/22/24 06:49 10/22/24 06:00 10/22/24 05:00 10/22/24 05:00 10/22/24 04:00 10/22/24 03:00 10/22/24 03:00 10/22/24 02:00 10/22/24 01:00 10/22/24 01:00 10/22/24 00:00 10/21/24 23:00 2 10/21/24 23:00 10/21/24 22:00 10/21/24 21:45 10/21/24 21:00 10/21/24 21:00 10/21/24 20:15 10/21/24 20:00 10/21/24 20:00 10/21/24 19:00 10/21/24 18:31 10/21/24 18:31 10/21/24 18:30 10/21/24 18:16 10/21/24 18:16 10/21/24 18:15 10/21/24 18:14 10/21/24 18:14 10/21/24 18:01 10/21/24 18:01 10/21/24 18:00 10/21/24 17:46 10/21/24 17:46 10/21/24 17:45 10/21/24 17:30 10/21/24 17:30 10/21/24 17:15 10/21/24 17:00 10/21/24 17:00 10/21/24 17:00 10/21/24 16:00 10/21/24 16:00 10/21/24 16:00 10/21/24 16:00 10/21/24 16:00 3 10/21/24 15:00 3 10/21/24 14:50 2 10/21/24 14:48 2 10/21/24 14:00 3 10/21/24 14:00 2 10/21/24 13:00 3 10/21/24 13:00 2 10/21/24 13:00 2 10/21/24 12:00 3 10/21/24 12:00 2 10/21/24 12:00 2 10/21/24 12:00 10/21/24 11:00 3 10/21/24 11:00 2 10/21/24 11:00 2 10/21/24 10:06 3 10/21/24 10:00 10/21/24 09:03 3 10/21/24 09:00 2 Intake and Output 10/21/24 10/22/24 10/22/24 23:59 07:59 15:59 Intake Total 420 / 2347.876 200 / 200 Output Total 450 / 2050 350 / 350 Balance -30 / 297.876 -350 / -150 200 / -150 Intake: Intake, Oral Amount 420 / 1580 200 / 200 Output: Output, Urine Amount 450 / 0 350 / 350 Other: Number of Unmeasured Voids 2 2 0 Weight 106.2 kg Patient Weight 10/22/24 23:59 Weight 106.2 kg Laboratory Results - last 24 hr 10/19/24 08:00: Cortisol AM Sample 21.9 H 10/20/24 21:19: POC Glucose 223 H 10/21/24 06:24: POC Glucose 191 H 10/21/24 09:46: VBG pH 7.40, VBG pCO2 43.8, VBG pO2 106.6 H, VBG HCO3 26.6, VBG Total CO2 28.0 H, VBG O2 Saturation 98.0 H, VBG Base Excess 1.9, VBG Lactic Acid 2.0 10/21/24 11:12: POC Glucose 253 H 10/21/24 11:21: Troponin I 0.06 H, C-Reactive Protein 182.7 H, NT-Pro-B Natriuret Pep 23259 H, Procalcitonin 0.884 10/21/24 12:58: Lactate 1.6 10/21/24 17:05: POC Glucose 149 H 10/21/24 19:42: POC Glucose 150 H 10/22/24 05:08: WBC 13.0 H D, RBC 3.49 L, Hgb 7.8 L, Hct 25.8 L, MCV 73.9 L, MCH 22.3 L, MCHC 30.2 L, RDW 25.2 H*, Plt Count 429 H, MPV 11.5 H, Neut % (Auto) 65.4, Lymph % (Auto) 12.9, [place] % (Auto) 12.2 H, Eos % (Auto) 7.9, Baso % (Auto) 1.0, Neut # (Auto) 8.5 H, Lymph # (Auto) 1.7, [place] # (Auto) 1.6 H, Eos # (Auto) 1.0 H, Baso # (Auto) 0.1, Sodium 133 L, Potassium 4.5, Chloride 101, Carbon Dioxide 27, Anion Gap 9.5, BUN 41 H, Creatinine 1.10 H, Estimated Creat Clear 79, Estimated GFR 49 L, Est GFR ( Amer) 59, Glucose 119 H, Calcium 8.9, Magnesium 1.6, Total Bilirubin 0.6, AST 88 H, ALT 87 H, Alkaline Phosphatase 391 H, Total Protein 6.4, Albumin 3.0 L, Globulin 3.4 H, Albumin/Globulin Ratio 0.9 L 10/22/24 06:29: POC Glucose 129 H I & O for Labs for Last 24 Hours: Intake & Output 10/19/24 10/20/24 10/21/24 10/22/24 23:59 23:59 23:59 23:59 Intake Total 1757.285 / 1599.056 0863.095 / 4093.703 8499.876 / 2347.876 200 / 200 Output Total 2600 / 3350 2525 / 2525 2050 / 2050 350 / 350 Balance -842.715 / -1592.715 -1374.905 / -1134.905 297.876 / 297.876 -150 / -150 Weight 105.143 kg 102.467 kg 105.46 kg 106.2 kg Microbiology Reports for the Last 24 Hours: Microbiology 10/19/24 19:19 Sputum - Expectorated Sputum Gram Stain - Final 10/19/24 19:19 Sputum - Expectorated Sputum Sputum Culture - Preliminary 10/18/24 19:52 Urine,Clean Catch Urine Culture - Final Escherichia coli The patient's infection will respond to the chosen ABx?: Yes (URINE = E. COLI SENSITIVE, AFEBRILE OVER 24 HR) Is the patient receiving the right drug, dose, and route?: Yes Could a more targeted ABx be ordered?: No How long ABx needed (days)?: 7
[2024-10-22] MEDS: BUMETANIDE 1 MG TABLET PO (08:36)
[2024-10-22] MEDS: CEFTRIAXONE 1 GM 1 GM in 0.9 % SODIUM CHLORIDE 50 ML IV (08:36)
[2024-10-22] MEDS: ASPIRIN EC 81MG TABLET 81 MG PO (08:37)
[2024-10-22] MEDS: SENNOSIDES 8.6MG/DOCUSATE 50MG TABLET 1 TAB PO (08:37)
[2024-10-22] MEDS: APIXABAN 5MG TABLET 5 MG PO ×2 (08:37→20:19)
[2024-10-22] MEDS: TIZANIDINE 4MG TABLET 2 MG PO (08:38)
[2024-10-22] MEDS: IRON SUCROSE COMPLEX 200 MG in 0.9 % SODIUM CHLORIDE 100 ML 100 MG IV (09:25)
--- NOTE | 2024-10-22 09:31 | SW/DCPLANNER ---
Addendum entered by Kacey Ho 10/23/24 10:52: I have updated [facility] that patient will discharge today SNF level of care. Addendum entered by Kacey Ho 10/22/24 11:08: Per [facility] he has offered patient a bed. Per Dr Oconnor patient will discharge to [facility] level of care tomorrow pending no setbacks. Addendum entered by Kacey Ho 10/22/24 09:53: [facility] is currently reviewing patient information. Original Note: I spoke w/ patient and her daughter regarding plans once medically stable for discharge. PT/OT evaluated patient and recommended SNF level of care. Patient is agreeable to placement and prefers [facility]. Patient information has been faxed to [facility]. Discharge date is unknown at this time. I will continue to follow up.
--- NOTE | 2024-10-22 10:23 | EXP.CARD.PN ---
Subjective Subjective Date: 10/22/24 Time: 10:00 Interval history: No events overnight. BP stable off pressors. Remains euvolemic. Exam Data for Last 24 hours Vital signs and Labs for Last 24 Hours: Temp Pulse Resp BP Pulse Ox O2 Del Method O2 Flow Rate 97.6 F 78 21 93/59 L 94 L Room Air 2 10/22/24 08:00 10/22/24 10:00 10/22/24 10:00 10/22/24 10:00 10/22/24 10:00 10/22/24 10:00 10/21/24 23:00 Laboratory Results - last 24 hr 10/19/24 08:00: Cortisol AM Sample 21.9 H 10/20/24 21:19: POC Glucose 223 H 10/21/24 06:24: POC Glucose 191 H 10/21/24 09:46: VBG pH 7.40, VBG pCO2 43.8, VBG pO2 106.6 H, VBG HCO3 26.6, VBG Total CO2 28.0 H, VBG O2 Saturation 98.0 H, VBG Base Excess 1.9, VBG Lactic Acid 2.0 10/21/24 11:12: POC Glucose 253 H 10/21/24 11:21: Troponin I 0.06 H, C-Reactive Protein 182.7 H, NT-Pro-B Natriuret Pep 26208 H, Procalcitonin 0.884 10/21/24 12:58: Lactate 1.6 10/21/24 17:05: POC Glucose 149 H 10/21/24 19:42: POC Glucose 150 H 10/22/24 05:08: WBC 13.0 H D, RBC 3.49 L, Hgb 7.8 L, Hct 25.8 L, MCV 73.9 L, MCH 22.3 L, MCHC 30.2 L, RDW 25.2 H*, Plt Count 429 H, MPV 11.5 H, Neut % (Auto) 65.4, Lymph % (Auto) 12.9, [place] % (Auto) 12.2 H, Eos % (Auto) 7.9, Baso % (Auto) 1.0, Neut # (Auto) 8.5 H, Lymph # (Auto) 1.7, [place] # (Auto) 1.6 H, Eos # (Auto) 1.0 H, Baso # (Auto) 0.1, Sodium 133 L, Potassium 4.5, Chloride 101, Carbon Dioxide 27, Anion Gap 9.5, BUN 41 H, Creatinine 1.10 H, Estimated Creat Clear 79, Estimated GFR 49 L, Est GFR ( Amer) 59, Glucose 119 H, Calcium 8.9, Magnesium 1.6, Total Bilirubin 0.6, AST 88 H, ALT 87 H, Alkaline Phosphatase 391 H, Total Protein 6.4, Albumin 3.0 L, Globulin 3.4 H, Albumin/Globulin Ratio 0.9 L 10/22/24 06:29: POC Glucose 129 H I & O for Last 24 hours: Intake & Output 10/19/24 10/20/24 10/21/24 10/22/24 23:59 23:59 23:59 23:59 Intake Total 1757.285 / 6842.896 4952.095 / 9985.098 4095.876 / 2347.876 250 / 250 Output Total 2600 / 3350 2525 / 2525 2049 / 2049 350 / 350 Balance -842.715 / -1592.715 -1374.905 / -1134.905 297.876 / 297.876 -100 / -100 Weight 231 lb 12.8 oz 225 lb 14.4 oz 232 lb 8 oz 234 lb 2.095 oz Microbiology Reports for the Last 24 Hours: Microbiology 10/19/24 19:19 Sputum - Expectorated Sputum Gram Stain - Final 10/19/24 19:19 Sputum - Expectorated Sputum Sputum Culture - Preliminary 10/18/24 19:52 Urine,Clean Catch Urine Culture - Final Escherichia coli Constitutional Constitutional: no acute distress and cooperative *Routine HEENT Exam Eye: Present PERRL *Routine Respiratory Exam Respiratory: Present CTA bilaterally; Absent accessory muscle use, wheezes or crackles *Routine Cardiovascular Exam Cardiovascular: Present RRR, Normal S1 and Normal S2; Absent murmur, gallop or rubs *Routine Abdominal Exam Abdominal: Present soft; Absent tenderness *Routine Extremities Exam Extremities: Present pulses intact; Absent cyanosis or edema *Routine Skin Exam Skin: Present intact; Absent erythema or wounds *Routine Neurological Exam Neurological: Present alert and oriented X3 Routine Psychiatric Exam Psychiatric: Present cooperative Progress Note: A&P Assessment and plan (1) Cor pulmonale: Status: Acute (2) Primary pulmonary hypertension: Status: Acute (3) (HFpEF) heart failure with preserved ejection fraction: Status: Acute (4) Hypertension: Status: Acute (5) Asplenia: Status: Chronic (6) Severe tricuspid regurgitation: Status: Chronic (7) Diabetes mellitus type 2 in obese: Status: Chronic (8) Obesity: Status: Chronic (9) Atrial fibrillation: Status: Chronic Assessment and Plan Assessment and Plan for All Diagnoses:: Iatrogenic Hypotension with Hypotensive Shock - systolic BP 60s-70s due to new meds, associated symptoms and WALE - symptoms improving with volume resusc, Milrinone, and holding antihypertensives - 10/22: BP stable off pressors, slowly resume GDMT as tolerated Chronic End Stage RHF, Cor Pulmonale, Severe TR - known dx with ECHO 2022 showing: severe PHTn, Severe, RV dilation/dysfunction, and severe TR - repeat ECHO 2024 showed no changed - [facility] evaluation 08/2024 -right heart cath measurements consistent with existing diagnosis. Left heart cath showed nonobstructive disease consistent with heart cath in 2022. Per family patient was deemed not a candidate for Tri clip. Office notes with this assessment are not available at this time. - This appears to be primary pulmonary hypertension as patient does not have any known chronic lung disease. She does need outpatient sleep study - Consider resuming tadalafil or macitentan if BP will tolerate - Resume home dose Bumex 1 mg daily as needed. - 10/22: Further primary pulmonary hypertension dose adjustments per Pulmonology. Continue to monitor volume status PAF - known dx, rate controlled and asymptomatic here - cont home dose Eliquis - 10/22: BB on hold Non-obstructive CAD - per [facility] 2022 here and at [facility] 08/2024 - pt denies angina - cont Eliquis, BB, Statin - 10/22: does not need ASA will DC CV stable off pressors. Slowly resuming home meds as tolerated. Ideally would be back on at least Metoprolol and Bumex before DC. OK to hold Entresto. Will defer Pulm Htn meds to Pulmonology who is managing. Please advise if further CV concerns this admission, otherwise can f/u in our office 1-2 weeks post discharge.
[2024-10-22] MEDS: ACETAMINOPHEN 325MG TAB 650 MG PO (10:30)
[2024-10-22 11:07] LABS: POC Glucose,Bedside 217 gm/dL (70-110)
--- NOTE | 2024-10-22 11:12 | PC.NURSE ---
Patient has reportedly not had a bowel movement in 9 days. Patient stated that she is holding it. Monique Teran RN and I educated the importance of going to the bathroom and not holding it. Patient's daughter told us that she was going in her brief and that she would be done in a minute. Upon checking the patient no bowel movement. Bedside commode was brought into the room, to which she refused to ambulate to commode. Patient stated that she couldn't just make it happen, that she didn't even to try. PRN stool softener to be offered.
--- NOTE | 2024-10-22 11:18 | P.PN_ITS ---
Subjective *Date: 10/22/24 *Time: 11:18 Interval history: Feeling somewhat this morning. On room air on morning rounds. Diuresed overnight with Bumex, fluid status neutral yesterday. Denies chest pain. Blood pressures acceptable systolics 90s to low 100s. Afebrile. Medical Exam Vital signs and Labs for Last 24 Hours: Vital Signs Temp Pulse Pulse Resp BP Pulse Ox O2 Del Method 10/22/24 11:00 Room Air 10/22/24 10:00 78 21 93/59 L 94 L Room Air 10/22/24 08:59 Room Air 10/22/24 08:59 82 17 111/60 94 L Room Air 10/22/24 08:59 93 L Room Air 10/22/24 08:00 87 10/22/24 08:00 97.6 F 95 H 20 111/60 87 L Room Air 10/22/24 07:00 75 17 112/60 83 L Room Air 10/22/24 06:49 Room Air 10/22/24 06:00 65 18 112/57 L 100 Room Air 10/22/24 05:00 75 16 95/54 L 97 Room Air 10/22/24 05:00 Room Air 10/22/24 04:00 98.2 F 87 21 96/55 L 97 Room Air 10/22/24 03:00 Room Air 10/22/24 03:00 77 16 95/52 L 97 Room Air 10/22/24 02:00 79 15 108/58 L 96 Room Air 10/22/24 01:00 80 18 111/61 94 L Room Air 10/22/24 01:00 Room Air 10/22/24 00:00 98.7 F 94 H 20 96/53 L 98 Room Air 10/21/24 23:00 Nasal Cannula 10/21/24 23:00 89 16 114/58 L 92 L Room Air 10/21/24 22:00 83 20 111/61 94 L Room Air 10/21/24 21:45 82 21 111/64 92 L Room Air 10/21/24 21:00 77 23 108/55 L 92 L Room Air 10/21/24 21:00 Room Air 10/21/24 20:15 98.5 F 88 24 99/50 L 96 Room Air 10/21/24 20:00 78 10/21/24 20:00 83 93 L Room Air 10/21/24 19:00 88 15 112/49 L 92 L Room Air 10/21/24 18:31 94/45 L 10/21/24 18:31 19 10/21/24 18:30 26 H 10/21/24 18:16 105/69 L 10/21/24 18:16 18 10/21/24 18:15 26 H 10/21/24 18:14 18 10/21/24 18:14 79/62 L 10/21/24 18:01 97/29 L 10/21/24 18:01 13 10/21/24 18:00 13 10/21/24 17:46 125/81 10/21/24 17:46 23 10/21/24 17:45 15 10/21/24 17:30 112/60 10/21/24 17:30 92 H 17 93 L 10/21/24 17:15 70 23 92 L 10/21/24 17:00 74 21 95/48 L 90 L Room Air 10/21/24 17:00 Room Air 10/21/24 17:00 98.8 F 89 16 93/58 L 94 L Room Air 10/21/24 16:00 92 L Room Air 10/21/24 16:00 92 L Room Air 10/21/24 16:00 98.8 F 82 16 101/60 L 92 L Room Air 10/21/24 16:00 82 10/21/24 16:00 98.5 F 68 19 93/53 L 93 L Nasal Cannula 10/21/24 15:00 78 18 90/51 L 95 Nasal Cannula 10/21/24 14:50 Nasal Cannula 10/21/24 14:48 98.3 F 83 16 99/56 L 99 Nasal Cannula 10/21/24 14:00 81 20 110/60 97 Nasal Cannula 10/21/24 14:00 98.2 F 78 16 110/60 98 Nasal Cannula 10/21/24 13:00 83 17 104/56 L 99 Nasal Cannula 10/21/24 13:00 Nasal Cannula 10/21/24 13:00 98.5 F 81 16 104/56 L 99 Nasal Cannula 10/21/24 12:00 98.6 F 81 19 88/61 L 98 Nasal Cannula 10/21/24 12:00 99 Nasal Cannula 10/21/24 12:00 98.1 F 82 16 101/39 L 99 Nasal Cannula 10/21/24 12:00 79 O2 Flow Rate 10/22/24 11:00 10/22/24 10:00 10/22/24 08:59 10/22/24 08:59 10/22/24 08:59 10/22/24 08:00 10/22/24 08:00 10/22/24 07:00 10/22/24 06:49 10/22/24 06:00 10/22/24 05:00 10/22/24 05:00 10/22/24 04:00 10/22/24 03:00 10/22/24 03:00 10/22/24 02:00 10/22/24 01:00 10/22/24 01:00 10/22/24 00:00 10/21/24 23:00 2 10/21/24 23:00 10/21/24 22:00 10/21/24 21:45 10/21/24 21:00 10/21/24 21:00 10/21/24 20:15 10/21/24 20:00 10/21/24 20:00 10/21/24 19:00 10/21/24 18:31 10/21/24 18:31 10/21/24 18:30 10/21/24 18:16 10/21/24 18:16 10/21/24 18:15 10/21/24 18:14 10/21/24 18:14 10/21/24 18:01 10/21/24 18:01 10/21/24 18:00 10/21/24 17:46 10/21/24 17:46 10/21/24 17:45 10/21/24 17:30 10/21/24 17:30 10/21/24 17:15 10/21/24 17:00 10/21/24 17:00 10/21/24 17:00 10/21/24 16:00 10/21/24 16:00 10/21/24 16:00 10/21/24 16:00 10/21/24 16:00 3 10/21/24 15:00 3 10/21/24 14:50 2 10/21/24 14:48 2 10/21/24 14:00 3 10/21/24 14:00 2 10/21/24 13:00 3 10/21/24 13:00 2 10/21/24 13:00 2 10/21/24 12:00 3 10/21/24 12:00 2 10/21/24 12:00 2 10/21/24 12:00 Intake and Output 10/21/24 10/22/24 10/22/24 23:59 07:59 15:59 Intake Total 420 / 2347.876 360 / 360 Output Total 450 / 2050 350 / 350 Balance -30 / 297.876 -350 / 10 360 / 10 Intake: Intake, Oral Amount 420 / 1580 200 / 200 Intake, Total IV Amount 160 / 160 Ceftriaxone 1 gm 1 gm In 0.9 % 50 / 50 Sodium Chloride 50 ml @ 100 mls /hr IV Q24H [facility] Rx#:[id number] Iron Sucrose Complex 200 mg In 110 / 110 0.9 % Sodium Chloride 100 ml @ 220 mls/hr IV ONCE ONE Rx#: [id number] Output: Output, Urine Amount 450 / 2050 350 / 350 Other: Number of Unmeasured Voids 2 2 0 Weight 106.2 kg Patient Weight 10/22/24 23:59 Weight 106.2 kg Laboratory Results - last 24 hr 10/19/24 08:00: Cortisol AM Sample 21.9 H 10/20/24 21:19: POC Glucose 223 H 10/21/24 06:24: POC Glucose 191 H 10/21/24 09:46: VBG pH 7.40, VBG pCO2 43.8, VBG pO2 106.6 H, VBG HCO3 26.6, VBG Total CO2 28.0 H, VBG O2 Saturation 98.0 H, VBG Base Excess 1.9, VBG Lactic Acid 2.0 10/21/24 11:12: POC Glucose 253 H 10/21/24 11:21: Troponin I 0.06 H, C-Reactive Protein 182.7 H, NT-Pro-B Natriuret Pep 82907 H, Procalcitonin 0.884 10/21/24 12:58: Lactate 1.6 10/21/24 17:05: POC Glucose 149 H 10/21/24 19:42: POC Glucose 150 H 10/22/24 05:08: WBC 13.0 H D, RBC 3.49 L, Hgb 7.8 L, Hct 25.8 L, MCV 73.9 L, MCH 22.3 L, MCHC 30.2 L, RDW 25.2 H*, Plt Count 429 H, MPV 11.5 H, Neut % (Auto) 65.4, Lymph % (Auto) 12.9, [place] % (Auto) 12.2 H, Eos % (Auto) 7.9, Baso % (Auto) 1.0, Neut # (Auto) 8.5 H, Lymph # (Auto) 1.7, [place] # (Auto) 1.6 H, Eos # (Auto) 1.0 H, Baso # (Auto) 0.1, Sodium 133 L, Potassium 4.5, Chloride 101, Carbon Dioxide 27, Anion Gap 9.5, BUN 41 H, Creatinine 1.10 H, Estimated Creat Clear 79, Estimated GFR 49 L, Est GFR ( Amer) 59, Glucose 119 H, Calcium 8.9, Magnesium 1.6, Total Bilirubin 0.6, AST 88 H, ALT 87 H, Alkaline Phosphatase 391 H, Total Protein 6.4, Albumin 3.0 L, Globulin 3.4 H, Albumin/Globulin Ratio 0.9 L 10/22/24 06:29: POC Glucose 129 H 10/22/24 10:59: POC Glucose 217 H I & O for Labs for Last 24 Hours: Intake & Output 10/19/24 10/20/24 10/21/24 10/22/24 23:59 23:59 23:59 23:59 Intake Total 1757.285 / 8004.860 8628.095 / 6047.104 7019.876 / 2347.876 360 / 360 Output Total 2600 / 3350 2525 / 2525 2049 350 / 350 Balance -842.715 / -1592.715 -1374.905 / -1134.905 297.876 / 297.876 Weight 105.143 kg 102.467 kg 105.46 kg 106.2 kg Microbiology Reports for the Last 24 Hours: Microbiology 10/19/24 19:19 Sputum - Expectorated Sputum Gram Stain - Final 10/19/24 19:19 Sputum - Expectorated Sputum Sputum Culture - Preliminary Gram Positive Cocci 10/18/24 19:52 Urine,Clean Catch Urine Culture - Final Escherichia coli Constitutional: Present no acute distress, obese, chronically ill appearing and cooperative Head: Present atraumatic and normocephalic ENT: Present normal exam Neck: Present normal inspection Respiratory: Present distant breath sounds and diminished air movement; Absent respiratory distress, rhonchi, wheezes or crackles Cardiac: Present Reg Rate and Rhythm and Audible Murmur Comment:: Frequent PVCs GI: Present soft and normal bowel sounds; Absent distention or tenderness Extremities: Present normal inspection and full ROM; Absent edema (Bilateral stasis dermatitis) Skin: Present intact and wounds; Absent erythema Neuro: Present Grossly Intact, alert, awake, oriented x 3 and moves all extremities Assessment and Plan *Assessment and plan (1) Cor pulmonale: Status: Acute Category: Medical Code(s): I27.81 - Cor pulmonale (chronic) (2) Primary pulmonary hypertension: Status: Acute Category: Medical Code(s): I27.0 - Primary pulmonary hypertension (3) (HFpEF) heart failure with preserved ejection fraction: Status: Acute Qualifiers: Heart failure chronicity: acute on chronic Qualified Code(s): I50.33 - Acute on chronic diastolic (congestive) heart failure Category: Medical Code(s): I50.30 - Unspecified diastolic (congestive) heart failure (4) Hypertension: Status: Acute Category: Medical Code(s): I10 - Essential (primary) hypertension (5) Asplenia: Status: Chronic Category: Medical Code(s): Q89.01 - Asplenia (congenital) (6) Severe tricuspid regurgitation: Status: Chronic Category: Medical Code(s): I07.1 - Rheumatic tricuspid insufficiency (7) Diabetes mellitus type 2 in obese: Status: Chronic Category: Medical Code(s): E11.69 - Type 2 diabetes mellitus with other specified complication; E66.9 - Ob esity, unspecified (8) Obesity: Status: Chronic Qualifiers: Obesity type: due to excess calories Obesity classification: adult class 1 (BMI 30 - 34.9) Serious obesity comorbidity presence: with serious comorbidity Body mass index: BMI 31.0-31.9 Qualified Code(s): E66.09 - Other obesity due to excess calories; Z68.31 - Body mass index [BMI] 31.0-31.9, adult Category: Medical Code(s): E66.9 - Obesity, unspecified (9) Atrial fibrillation: Status: Chronic Qualifiers: Atrial fibrillation type: longstanding persistent Qualified Code(s): I48.11 - Longstanding persistent atrial fibrillation Category: Medical Code(s): I48.91 - Unspecified atrial fibrillation Plan Rica Flannery is a 69-year-old female with a medical history significant for severe right heart failure/cor pulmonale from pulmonary hypertension, asplenia, paroxysmal A-fib, CAD, type 2 diabetes, anxiety/depression, GERD presents with dizziness, exercise intolerance for the past month and was admitted for further evaluation of the same. Showing improvement. Weaned to room air. Off pressors for over 24 hours. Resuming regimen for pulmonary hypertension. Anticipate discharge in the next day or 2 to rehab. Problems addressed as follows: #Pulmonary hypertension with cor pulmonale #Hypotension #WALE on CKD #Uremia #Medication side effect ? Patient has underlying pulmonary hypertension with concomitant cor pulmonale, possibly related to undiagnosed sleep apnea. - Reviewed right and left heart cath removal. Consistent with primary pulmonary hypertension. Right heart failure severe. Pulmonary artery pressures equal to systemic pressures. ? Has recently been started on tadalafil, macitentan a week prior to admission by [facility] attending ambulatory care for pulmonary hypertension likely contributing to hypotension, acute renal failure. ? Discussed case with pulmonology and cardiology. Recommend resuming if tolerated some of her medications for pulmonary hypertension given the etiology. -Continue Bumex 1 mg daily. Resume tadalafil 20 mg daily. Will evaluate additional medications in the morning. ? At the same time, extensively discussed with family regarding severity of condition. With cor pulmonale causing significant systemic symptoms with endorgan failure and challenges with outpatient treatment for pulmonary hypertension, discussed with family about irreversibility of some of this. They understand the severity of the situation, and if above treatment is not successful that prognosis would be poor. Patient and family stated they would want hospice care in the event above treatment is not successful. ? Hold home Farxiga, metoprolol, Entresto, spironolactone, macitentan. -Creatinine 1.1, BUN 41. Monitor daily with diuresis. LFTs improving with AST 88, ALT 87, alk phos 391. -Potassium 4.5, magnesium 1.6. Replace per protocol -Repeat CBC, CMP, magnesium ordered for the morning. # E. coli UTI #Suspected community-acquired pneumonia ? UA grossly abnormal, CXR suggestive of left basilar pneumonia. WBC improved from 16-13. ? Urinalysis greater than 100,000 CFU's of E. coli. Sensitive to cephalosporins. Continue ceftriaxone 1 g daily IV, plan to complete 5 days, last dose due 10/23/2024 #Pulmonary hypertension #Severe RV failure/cor pulmonale #Severe tricuspid regurgitation ? Presented with dizziness, exercise intolerance over the past month. Evaluated by [facility] recently for consideration of triclip for severe tricuspid regurgitation however she was not a good candidate. ? ECHO August 2024 shows markedly elevated RVSP >60 mmHg, severe RV dilatation with failure. EF preserved ? Has underlying pulmonary hypertension, has not been evaluated for sleep apnea or sleep study. Has one scheduled for November 2024. ? Continue Bumex 1 mg p.o., initiate tadalafil 20 mg daily ? Patient needs urgent consideration for a sleep study after discharge. #History of asplenia: Hypotensive, follow-up infectious workup as above. #Physical deconditioning #Depression ? Patient's recently. ? Continue home duloxetine 60 mg daily, nortriptyline 25 mg daily. - Therapy recommends skilled rehab at discharge, case management assisting. Discussed options today. Referred to [place]. Will pursue rehab first. Reevaluate palliative/hospice pending her response to medication resumption and tolerance of therapy Chronic medical problems: #Paroxysmal A-fib: Currently rate controlled. Continue home Eliquis 5 mg twice daily. Hold home metoprolol due to hypotension. #CAD: Continue home aspirin, statin. DNR/DNI DVT prophylaxis: Eliquis
[2024-10-22] MEDS: humaLOG 100 UNITS/ML 10ML VIAL (SSI) SUBCUT ×3 (11:24→20:19)
[2024-10-22] MEDS: POLYETHYLENE GLYCOL 3350 17 GM PACKET PO (11:47)
[2024-10-22] MEDS: METOPROLOL SUCCINATE XL 25MG TABLET 25 MG PO (12:01)
[2024-10-22 12:10] LABS: Total Cells Counted 100
[2024-10-22 12:11] LABS: Hypochromasia 1+
[2024-10-22] MEDS: MINERAL OIL ENEMA 133ML 133 ML RC (13:35)
[2024-10-22 17:03] LABS: POC Glucose,Bedside 222 gm/dL (70-110)
--- NOTE | 2024-10-22 17:31 | PC.NURSE ---
Pt is A&Ox4. Vital signs stable tolerating room air. Pt's daughter wanted blood pressure re-checked this afternoon. Blood pressure read 89/40 on datascope. Manual blood pressure obtained reading 88/52. [employer] notified of blood pressure and stated to check BP Q15 minutes. BP checked Q15 minutes with improvement. BP's charted. Enema given per APR. Pt had a BM afterwards. FSBS treated with SSI per APR. Pt has sat up in the chair all afternoon with no further needs voiced at this time. Call light within reach.
[2024-10-22] MEDS: PANTOPRAZOLE 40MG TABLET 40 MG PO (20:19)
[2024-10-22] MEDS: MELATONIN 5MG TABLET 5 MG PO (20:19)
[2024-10-22] MEDS: SODIUM CHLORIDE 0.9% 10ML FLUSH SYRINGE 10 ML IV (20:20)
[2024-10-23] VITALS: BP 98/36; PULSE 66; PULSE 70; RESP 16; TEMP 36.9; O2SAT 91
[2024-10-23 04:00] VITALS: BP 98/43; PULSE 60; PULSE 70; RESP 16; TEMP 36.4; O2SAT 92; BMI 39.6
[2024-10-23 05:59] LABS: Hematocrit 27.0 % (37.0-47.0); Hemoglobin 8.2 g/dL (12.2-16.2); Immature Granulocytes % 0.5 %; Mean Corpuscular HGB Conc 30.4 g/dL (31.8-35.4); Mean Corpuscular Hemoglobin 22.5 pg (27.0-31.2); Mean Corpuscular Volume 74.2 fl (81-99); Nucleated Red Blood Cells % 0.2 %; Platelet Count 452 K/mm3 (142-424); Red Blood Count 3.64 M/mm3 (4.20-5.40); Red Cell Distribution Width-SD 65.1 fL; White Blood Count 11.1 K/mm3 (4.8-10.8)
[2024-10-23 06:03] LABS: Alanine Aminotransferase 78 U/L (12-78); Albumin Level 3.1 g/dl (3.5-5.0); Albumin/Globulin Ratio 0.9 (1.1-1.8); Alkaline Phosphatase 446 U/L (38-126); Anion Gap 10.2 mEq/L (5-15); Aspartate Amino Transferase 65 U/L (14-36); Bilirubin,Total 0.4 mg/dl (0.2-1.3); Blood Urea Nitrogen 39 mg/dl (7-17); Calcium 8.9 mg/dl (8.4-10.2); Carbon Dioxide 27 mmol/L (22.0-30.0); Chloride 99 mmol/L (98-107); Creatinine Clearance Estimated 86 mL/min (50-200); Creatinine,Serum 1.00 mg/dl (0.52-1.04); Estimated Glomerular Filt Rate 55 ml/min (>60); GFR (African American) 66 ML/MIN (>60); Globulin 3.5 g/dL (1.3-3.2); Glucose 145 mg/dl (74-100); Magnesium 1.5 mg/dl (1.6-2.3); Potassium 4.2 mmoL/L (3.5-5.1); Sodium 132 mmol/L (136-145); Total Protein,Serum 6.6 g/dl (6.3-8.2)
[2024-10-23 06:09] LABS: C-Reactive Protein 76.2 mg/L (0-4)
[2024-10-23 08:00] VITALS: BP 118/56; PULSE 69; PULSE 70; RESP 18; TEMP 36.8; O2SAT 93
[2024-10-23] MEDS: CEFTRIAXONE 1 GM 1 GM in 0.9 % SODIUM CHLORIDE 50 ML IV (09:01)
[2024-10-23] MEDS: APIXABAN 5MG TABLET 5 MG PO (09:02)
[2024-10-23] MEDS: BUMETANIDE 1 MG TABLET PO (09:02)
[2024-10-23] MEDS: SENNOSIDES 8.6MG/DOCUSATE 50MG TABLET 1 TAB PO (09:02)
[2024-10-23] MEDS: ASPIRIN EC 81MG TABLET 81 MG PO (09:02)
--- NOTE | 2024-10-23 09:26 | P.PN_ITS ---
Subjective *Date: 10/23/24 *Time: 12:21 Interval history: No acute greater events overnight. Patient denies any new respiratory complaints. Pulmonology Exam Inpatient Vital signs and Labs for Last 24 Hours: Temp Pulse Resp BP Pulse Ox O2 Del Method O2 Flow Rate 98.3 F 70 18 118/56 L 93 L Room Air 2 10/23/24 08:00 10/23/24 08:00 10/23/24 08:00 10/23/24 08:00 10/23/24 08:00 10/23/24 08:00 10/21/24 23:00 Laboratory Results - last 24 hr 10/22/24 05:08: Total Counted 100, Neutrophils % (Manual) 77 H, Lymphocytes % (Manual) 14, Monocytes % (Manual) 6, Eosinophils % (Manual) 3, Platelet Estimate Slight increase, Hypochromasia 1+ 10/22/24 10:59: POC Glucose 217 H 10/22/24 16:56: POC Glucose 222 H 10/23/24 05:20: WBC 11.1 H, RBC 3.64 L, Hgb 8.2 L, Hct 27.0 L, MCV 74.2 L, MCH 22.5 L, MCHC 30.4 L, RDW 25.2 H*, Plt Count 452 H, MPV 10.5 H, Neut % (Auto) 60.1, Lymph % (Auto) 15.0, [place] % (Auto) 11.7 H, Eos % (Auto) 11.2, Baso % (Auto) 1.5, Neut # (Auto) 6.7, Lymph # (Auto) 1.7, [place] # (Auto) 1.3 H, Eos # (Auto) 1.2 H, Baso # (Auto) 0.2, Sodium 132 L, Potassium 4.2, Chloride 99, Carbon Dioxide 27, Anion Gap 10.2, BUN 39 H, Creatinine 1.00, Estimated Creat Clear 86, Estimated GFR 55 L, Est GFR ( Amer) 66, Glucose 145 H, Calcium 8.9, Magnesium 1.5 L, Total Bilirubin 0.4, AST 65 H D, ALT 78, Alkaline Phosphatase 446 H, C-Reactive Protein 76.2 H D, Total Protein 6.6, Albumin 3.1 L , Globulin 3.5 H, Albumin/Globulin Ratio 0.9 L Temp Pulse Resp BP Pulse Ox O2 Del Method O2 Flow Rate 98.1 F 87 16 134/66 93 L Nasal Cannula 3 10/21/24 07:36 10/21/24 07:36 10/21/24 07:36 10/21/24 07:36 10/21/24 07:36 10/21/24 07:36 10/21/24 07:36 Laboratory Results - last 24 hr 10/20/24 09:27: WBC 13.1 H, RBC 3.80 L, Hgb 8.3 L, Hct 28.7 L, MCV 75.5 L, MCH 21.8 L, MCHC 28.9 L, RDW 24.8 H, Plt Count 359, MPV 10.3, Neut % (Auto) 74.6, Lymph % (Auto) 7.6 L, [place] % (Auto) 15.4 H, Eos % (Auto) 1.2, Baso % (Auto) 0.7, Neut # (Auto) 9.8 H, Lymph # (Auto) 1.0, [place] # (Auto) 2.0 H, Eos # (Auto) 0.2, Baso # (Auto) 0.1, Total Counted 100, Neutrophils % (Manual) 79 H, Lymphocytes % (Manual) 9 L, Monocytes % (Manual) 12 H, Platelet Estimate Normal, Hypochromasia 1+, Poikilocytosis 1+, Anisocytosis 1+, Target Cells 1+, [place] Cells 1+, Sodium 132 L, Potassium 5.2 H, Chloride 101, Carbon Dioxide 27, Anion Gap 9.2, BUN 58 H D, Creatinine 1.20 H D, Estimated Creat Clear 70, Estimated GFR 44 L, Est GFR ( Amer) 54 L D, Glucose 233 H, Calcium 9.1, Magnesium 1.8, Total Bilirubin 0.7, AST 28, ALT 39 D, Alkaline Phosphatase 209 H, Total Protein 6.7, Albumin 3.3 L D, Globulin 3.4 H, Albumin/Globulin Ratio 1.0 L 10/21/24 04:47: WBC 17.8 H D, RBC 3.75 L, Hgb 8.2 L, Hct 27.9 L, MCV 74.4 L, MCH 21.9 L, MCHC 29.4 L, RDW 25.1 H*, Plt Count 395, MPV 10.9 H, Neut % (Auto) 78.1, Lymph % (Auto) 5.9 L, [place] % (Auto) 13.7 H, Eos % (Auto) 1.4, Baso % (Auto) 0.4, Neut # (Auto) 13.9 H, Lymph # (Auto) 1.0, [place] # (Auto) 2.4 H, Eos # (Auto) 0.3, Baso # (Auto) 0.1, Total Counted 100, Neutrophils % (Manual) 82 H, Lymphocytes % (Manual) 3 L, Monocytes % (Manual) 14 H, Eosinophils % (Manual) 1, Platelet Estimate Normal, RBC Morphology Normal, Sodium 131 L, Potassium 4.8, Chloride 99, Carbon Dioxide 27, Anion Gap 9.8, BUN 45 H, Creatinine 1.10 H, Estimated Creat Clear 78, Estimated GFR 49 L, Est GFR ( Amer) 59, Glucose 182 H D, Calcium 9.0, Magnesium 1.6 D, Total Bilirubin 1.2, AST 106 H D, ALT 89 H D, Alkaline Phosphatase 511 H, Total Protein 6.9, Albumin 3.3 L, Globulin 3.6 H, Albumin/Globulin Ratio 0.9 L I & O for Labs for Last 24 Hours: Intake & Output 10/20/24 10/21/24 10/22/24 10/23/24 23:59 23:59 23:59 23:59 Intake Total 1156.202 / 4849.579 2250.876 / 2347.876 1590 / 1590 480 / 480 Output Total 2525 / 2525 205 / 2050 650 / 900 250 / 250 Balance -1368.798 / -1128.798 297.876 / 297.876 940 / 690 230 / 230 Weight 225 lb 14.4 oz 232 lb 8 oz 234 lb 2.095 oz 232 lb Intake & Output 10/18/24 10/19/24 10/20/24 10/21/24 23:59 23:59 23:59 23:59 Intake Total 1320 / 1680 1757.285 / 6010.192 9721.095 / 0244.837 1229.876 / 1567.876 Output Total 1575 / 1575 2600 / 3350 2525 / 2525 850 / 850 Balance -255 / 105 -842.715 / -1592.715 -1374.905 / -1134.905 717.876 / 717.876 Weight 230 lb 6.4 oz 231 lb 12.8 oz 225 lb 14.4 oz 232 lb 8 oz Microbiology Reports for the Last 24 Hours: Microbiology 10/19/24 19:19 Sputum - Expectorated Sputum Gram Stain - Final 10/19/24 19:19 Sputum - Expectorated Sputum Sputum Culture - Final Staphylococcus aureus 10/18/24 18:12 Blood Blood Culture - Preliminary NO GROWTH AFTER 4 DAYS 10/18/24 18:10 Blood Blood Culture - Preliminary NO GROWTH AFTER 4 DAYS Microbiology 10/18/24 19:52 Urine,Clean Catch Urine Culture - Final Escherichia coli 10/18/24 18:10 Blood Blood Culture - Preliminary NO GROWTH AFTER 48 HOURS 10/18/24 18:12 Blood Blood Culture - Preliminary NO GROWTH AFTER 48 HOURS Constitutional: Present moderate distress Head: Present normocephalic and atraumatic ENT: Present normal exam, normal oropharynx and mucous membranes moist Neck: Present normal inspection and full ROM Respiratory: Present respiratory distress and able to speak in complete sentences; Absent prolonged expiratory phase, wheezes or diminished air movement Cardiac: Present S1/S2, Tachycardia and radial pulses present GI: Present soft and distention; Absent tenderness or guarding Rectal (female): Present deferred (female): Present deferred Skin: Present intact; Absent cyanosis or jaundice Neuro: Present alert, awake and oriented x 3 Extremities: Present normal inspection; Absent clubbing or cyanosis Psychiatric: Present normal affect and cooperative Assessment and Plan *Assessment and plan (1) Primary pulmonary hypertension: Status: Acute Category: Medical Code(s): I27.0 - Primary pulmonary hypertension (2) Acute and chronic respiratory failure with hypoxia: Status: Acute Category: Medical Code(s): J96.21 - Acute and chronic respiratory failure with hypoxia Plan Ms. Flannery is a 69 year-old female no significant smoking history, obesity, high risk for sleep apnea recently had a diagnosis of pulmonary hypertension status post right heart cath showed pulmonary hypertension with increased PVR at 12 ureña which also showed to have elevated wedge pressure at 18 initiated on a combination of Tadanafil and Macicentan for her pulmonary hypertension along with increasing dose of diuretics noted to have worsening hypotensive episodes presented to the ER and pulmonary was consulted for further evaluation and management. Patient CT abdomen findings are also consistent with cirrhosis. Child-Cruz score A. Patient on admission was initiated on Levophed secondary to hypotensive episodes and then was started on milrinone. Her home diuretics along with pulmonary hypertension medications were held. Since this morning patient hemodynamics improved. Both Levophed and milrinone drips were discontinued. Interval update: No acute respiratory events overnight. Continued to be off Levophed and milrinone tubes. Initiated on Bumex for volume optimization. Cardiology following. Plan: Continue oxygen supplementation to maintain O2 saturation goal of 90% and above. On room air saturating 92% this morning. Continue oxygen supplementation at 2 L at night. Sputum culture grew Staph aureus. F/U CXR. Initiate CLindamycin 300 mg 3 times daily. Initiate macitentan 10 mg daily. Will follow with hemodynamics and consider initiating tadalafil subsequently. Continue to receive Bumex 1 mg daily. Hemodynamically stable so far. Will closely monitor. Volume optimization as per cardiology. Thank you for involving pulmonary in this patient care. Will continue to follow.
[2024-10-23] MEDS: METOPROLOL SUCCINATE XL 25MG TABLET 25 MG PO (11:08)
[2024-10-23] MEDS: humaLOG 100 UNITS/ML 10ML VIAL (SSI) SUBCUT (11:14)
[2024-10-23 11:17] LABS: POC Glucose,Bedside 200 gm/dL (70-110)
--- NOTE | 2024-10-23 11:23 | EXP.DC.SUM ---
General Admission date:: 10/19/24 Discharge date: 10/23/24 HPI HPI HPI: This is the ER doctors dictation directly below Patient is a 69-year-old female with past medical history of severe tricuspid regurgitation who was deemed not a surgical candidate by [facility] released back to Dr. Carreno here, recently started on pulmonary antihypertensives that have not been well-tolerated, modification of her diuresis regimen over the last month, cirrhosis of the liver who presents to the emergency department for evaluation of dizziness and acute on chronic shortness of breath and functional decline. History is obtained by patient and family members at bedside, patient has had a subacute decline over the last 4 weeks which has gotten much worse as of late. She is not a surgical candidate for her tricuspid valve she has severe right ventricular dilatation with reduction in RV function biatrial dilatation, there is normal LV systolic function, she has severe tricuspid regurgitation with a markedly elevated RVSP of greater than 60 mm per her recent echocardiogram. She denies chest pain, there were send here at the behest of Dr. Valdez to see about goals of care versus investigation versus maximal medical therapy. No other acute complaints at this time. Patient being placed on the floor for care and comfort at this point in time question whether hospice will be a decision for her at this point in time. The patient is no longer a surgical candidate to replace the valve.. Placed on the floor patient did not want any labs or intrusions.. Her wishes will be followed. Her medication can be looked at to see if anything can be adjusted to help improve her status. And then depending upon what the patient decides question hospice to be able to go home or needs long-term care. Have conferred with the nurse on the floor that if the patient needs anything to contact me we will try to provide it. Hospital Course Hospital Course Hospital Course: Rica Flannery is a 69-year-old female with a medical history significant for severe right heart failure/cor pulmonale from pulmonary hypertension, asplenia, paroxysmal A-fib, CAD, type 2 diabetes, anxiety/depression, GERD presents with dizziness, exercise intolerance for the past month and was admitted for further evaluation of the same. Showing improvement. Weaned to room air. Off pressors for over over 48 hours. Tolerating cautious resumption of pulmonary hypertension meds. Stable discharge to rehab for further management. Graciously excepted to [facility]. Problems addressed as follows: #Pulmonary hypertension with cor pulmonale #Hypotension #WALE on CKD #Uremia #Medication side effect # MRSA pneumonia ? Patient has underlying pulmonary hypertension with concomitant cor pulmonale, possibly related to undiagnosed sleep apnea. Reviewed right and left heart cath reports from [place]. Consistent with primary pulmonary hypertension. Right heart failure severe. Pulmonary artery pressures equal to systemic pressures. 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 Was initially in the ICU necessitating pressors due to her severe hypotension. Showed gradual improvement and able to wean off pressors. Off pressors for over 72 hours prior to discharge home. Pulmonology and cardiology assisted with care. Resume medications cautiously for pulmonary hypertension and HFpEF. Resume Bumex 1 mg daily. Resume macitentan 10 mg daily, resume metoprolol for A-fib and heart failure with succinate 25 mg daily. Will hold Entresto and spironolactone at this time. -Hold Farxiga due to UTI. -Significant WALE on presentation. Improved by day of discharge. Creatinine 1.0 with BUN 39. Would benefit from repeat CBC, CMP, magnesium in 1 week # E. coli UTI #Suspected community-acquired pneumonia, sputum MRSA positive. Consistent with MRSA pneumonia ? UA grossly abnormal, CXR suggestive of left basilar pneumonia. White cell count showed gradual during admission. Urinalysis greater than 100,000 CFU's of E. coli. Sensitive to cephalosporins. Treated with ceftriaxone. Completed 5 days of therapy during admission. Sputum sample returned positive on day of discharge. Patient had weaned to room air but given the positive sputum sample for MRSA, will continue clindamycin for 5 days total. 300 mg 3 times a day. Chest imaging as stated above was suggestive for left basilar pneumonia. Able to wean to room air by day of discharge however. #Pulmonary hypertension #Severe RV failure/cor pulmonale #Severe tricuspid regurgitation ? Presented with dizziness, exercise intolerance over the past month. Evaluated by [facility] recently for consideration of triclip for severe tricuspid regurgitation however she was not a good candidate. ? ECHO August 2024 shows markedly elevated RVSP >60 mmHg, severe RV dilatation with failure. EF preserved ? Has underlying pulmonary hypertension, has not been evaluated for sleep apnea or sleep study. Has one scheduled for November 2024. ? Continue Bumex 1 mg p.o. resume macitentan 10 mg daily. If tolerates well with stable blood pressure, consider initiating tadalafil 20 mg daily after follow-up with pulmonology. Referred to pulmonology as an outpatient for further management. Consider sleep study evaluation as an outpatient for possible MANSI as partial etiology of the pulmonary hypertension #History of asplenia: Increased risk for opportunistic infections. Complicates all aspects of her care. #Physical deconditioning #Depression ? Patient's recently. Continue home duloxetine 60 mg daily, nortriptyline 25 mg daily. - Therapy recommends skilled rehab at discharge, case management assisting. Discussed options, open to [facility]. Patient accepted for rehab. Stable to discharge for [facility] at this time. Pending clinical response to treatment for pulmonary hypertension and improvement with therapy, if patient shows decline, family interested in considering palliative/hospice care Chronic medical problems: #Paroxysmal A-fib: Currently rate controlled. Continue home Eliquis 5 mg twice daily. Resume home metoprolol for heart failure and A-fib. #CAD: Continue home aspirin, statin. Total time spent on discharge 35 minutes in counseling, documentation, chart review, and direct care with patient. Exam Data for Last 24 hours Vital signs and Labs for Last 24 Hours: Temp Pulse Resp BP Pulse Ox O2 Del Method O2 Flow Rate 98.3 F 70 18 118/56 L 93 L Room Air 2 10/23/24 08:00 10/23/24 08:00 10/23/24 08:00 10/23/24 08:00 10/23/24 08:00 10/23/24 08:00 10/21/24 23:00 Laboratory Results - last 24 hr 10/22/24 05:08: Total Counted 100, Neutrophils % (Manual) 77 H, Lymphocytes % (Manual) 14, Monocytes % (Manual) 6, Eosinophils % (Manual) 3, Platelet Estimate Slight increase, Hypochromasia 1+ 10/22/24 16:56: POC Glucose 222 H 10/23/24 05:20: WBC 11.1 H, RBC 3.64 L, Hgb 8.2 L, Hct 27.0 L, MCV 74.2 L, MCH 22.5 L, MCHC 30.4 L, RDW 25.2 H*, Plt Count 452 H, MPV 10.5 H, Neut % (Auto) 60.1, Lymph % (Auto) 15.0, [place] % (Auto) 11.7 H, Eos % (Auto) 11.2, Baso % (Auto) 1.5, Neut # (Auto) 6.7, Lymph # (Auto) 1.7, [place] # (Auto) 1.3 H, Eos # (Auto) 1.2 H, Baso # (Auto) 0.2, Sodium 132 L, Potassium 4.2, Chloride 99, Carbon Dioxide 27, Anion Gap 10.2, BUN 39 H, Creatinine 1.00, Estimated Creat Clear 86, Estimated GFR 55 L, Est GFR ( Amer) 66, Glucose 145 H, Calcium 8.9, Magnesium 1.5 L, Total Bilirubin 0.4, AST 65 H D, ALT 78, Alkaline Phosphatase 446 H, C-Reactive Protein 76.2 H D, Total Protein 6.6, Albumin 3.1 L, Globulin 3.5 H, Albumin/Globulin Ratio 0.9 L 10/23/24 11:07: POC Glucose 200 H I & O for Last 24 hours: Intake & Output 10/20/24 10/21/24 10/22/24 10/23/24 23:59 23:59 23:59 23:59 Intake Total 1156.202 / 0206.946 7810.876 / 2347.876 1590 / 1590 530 / 530 Output Total 2525 / 2525 2050 / 2050 650 / 900 250 / 250 Balance -1368.798 / -1128.798 297.876 / 297.876 940 / 690 280 / 280 Weight 102.467 kg 105.46 kg 106.2 kg 105.233 kg Microbiology Reports for the Last 24 Hours: Microbiology 10/19/24 19:19 Sputum - Expectorated Sputum Gram Stain - Final 10/19/24 19:19 Sputum - Expectorated Sputum Sputum Culture - Final Staphylococcus aureus 10/18/24 18:12 Blood Blood Culture - Preliminary NO GROWTH AFTER 4 DAYS 10/18/24 18:10 Blood Blood Culture - Preliminary NO GROWTH AFTER 4 DAYS Constitutional Constitutional: no acute distress, obese, chronically ill appearing and cooperative *Routine HEENT Exam Head: Present normocephalic Eye: Present EOMI and PERRL ENT: Present mucous membranes moist *Routine Neck Exam Neck: Present supple; Absent lymphadenopathy *Routine Respiratory Exam Respiratory: Present CTA bilaterally; Absent rhonchi, wheezes or crackles *Routine Cardiovascular Exam Cardiovascular: Present RRR and murmur *Routine Abdominal Exam Abdominal: Present soft and normoactive bowel sounds; Absent tenderness *Routine Rectal Exam Patient deferred: visual exam *Routine Exam Patient deferred: external exam *Routine Extremities Exam Extremities: Absent cyanosis, clubbing or edema *Routine Skin Exam Skin: Present intact and warm; Absent rash *Routine Neurological Exam Neurological: Present alert, oriented X3 and moving all extremities; Absent altered mental status Results Data Completed and Pending Labs on day of discharge: Labs from last 24 hours 10/23/24 10/23/24 10/22/24 11:07 05:20 16:56 WBC 11.1 H RBC 3.64 L Hgb 8.2 L Hct 27.0 L MCV 74.2 L MCH 22.5 L MCHC 30.4 L RDW 25.2 H* Plt Count 452 H MPV 10.5 H Neut % (Auto) 60.1 Lymph % (Auto) 15.0 [place]hel % (Auto) 11.7 H Eos % (Auto) 11.2 Baso % (Auto) 1.5 Neut # (Auto) 6.7 Lymph # (Auto) 1.7 [place] # (Auto) 1.3 H Eos # (Auto) 1.2 H Baso # (Auto) 0.2 Total Counted Neutrophils % (Manual) Lymphocytes % (Manual) Monocytes % (Manual) Eosinophils % (Manual) Platelet Estimate Hypochromasia Sodium 132 L Potassium 4.2 Chloride 99 Carbon Dioxide 27 Anion Gap 10.2 BUN 39 H Creatinine 1.00 Estimated Creat Clear 86 Estimated GFR 55 L Est GFR ( Amer) 66 Glucose 145 H POC Glucose 200 H 222 H Calcium 8.9 Magnesium 1.5 L Total Bilirubin 0.4 AST 65 H D ALT 78 Alkaline Phosphatase 446 H C-Reactive Protein 76.2 H D Total Protein 6.6 Albumin 3.1 L Globulin 3.5 H Albumin/Globulin Ratio 0.9 L 10/22/24 05:08 WBC RBC Hgb Hct MCV MCH MCHC RDW Plt Count MPV Neut % (Auto) Lymph % (Auto) [place] % (Auto) Eos % (Auto) Baso % (Auto) Neut # (Auto) Lymph # (Auto) [place] # (Auto) Eos # (Auto) Baso # (Auto) Total Counted 100 Neutrophils % (Manual) 77 H Lymphocytes % (Manual) 14 Monocytes % (Manual) 6 Eosinophils % (Manual) 3 Platelet Estimate Slight increase Hypochromasia 1+ Sodium Potassium Chloride Carbon Dioxide Anion Gap BUN Creatinine Estimated Creat Clear Estimated GFR Est GFR ( Amer) Glucose POC Glucose Calcium Magnesium Total Bilirubin AST ALT Alkaline Phosphatase C-Reactive Protein Total Protein Albumin Globulin Albumin/Globulin Ratio Preliminary micro results at discharge 10/18/24 18:12 Blood Culture - Preliminary Blood NO GROWTH AFTER 4 DAYS 10/18/24 18:10 Blood Culture - Preliminary Blood NO GROWTH AFTER 4 DAYS DS: Diagnosis Discharge Diagnosis (1) Primary pulmonary hypertension: Status: Acute Code(s): I27.0 - Primary pulmonary hypertension (2) Acute and chronic respiratory failure with hypoxia: Status: Acute Code(s): J96.21 - Acute and chronic respiratory failure with hypoxia (3) (HFpEF) heart failure with preserved ejection fraction: Status: Acute Code(s): I50.30 - Unspecified diastolic (congestive) heart failure Qualifiers: Heart failure chronicity: acute on chronic Qualified Code(s): I50.33 - Acute on chronic diastolic (congestive) heart failure (4) Cor pulmonale: Status: Acute Code(s): I27.81 - Cor pulmonale (chronic) (5) Declining functional status: Status: Acute Code(s): R53.81 - Other malaise (6) Tricuspid regurgitation: Status: Acute Code(s): I07.1 - Rheumatic tricuspid insufficiency Qualifiers: Cardiac valve disease etiology: etiology unspecified Qualified Code(s): I07.1 - Rheumatic tricuspid insufficiency (7) Diabetes mellitus with circulatory complication: Status: Chronic Code(s): E11.59 - Type 2 diabetes mellitus with other circulatory complications (8) Cirrhosis of liver: Status: Chronic Code(s): K74.60 - Unspecified cirrhosis of liver Meds Home Medications and Allergies Home Medications ?Medication ?Instructions ?Recorded ?Confirmed ?Type acetaminophen 500 mg tablet 1,000 mg PO Q6H PRN Mild Pain 05/09/24 10/17/24 History (Tylenol Extra Strength) (Scale Score 1-4) atorvastatin 40 mg tablet 40 mg PO HS #90 tabs 06/02/24 10/17/24 Rx Held on 10/23/24. Instructions: pending improvement in liver enzymes pantoprazole 40 mg tablet,delayed 40 mg PO HS #90 tabs 06/09/24 10/17/24 Rx release Held on 10/23/24. Instructions: pending completion of clindamycin tirzepatide 5 mg/0.5 mL 5 mg (0.5 mL) SQ WEEKLY #2.5 mL 07/22/24 10/17/24 Rx subcutaneous pen injector zolpidem 5 mg tablet (Ambien) 5 mg PO HS PRN sleep #30 tabs 08/26/24 10/17/24 Rx nystatin 100,000 unit/gram topical 1 applic topical BID PRN 09/30/24 10/17/24 History powder Excoriation apixaban 5 mg tablet (Eliquis) 5 mg PO BID 10/17/24 10/17/24 History aspirin 81 mg tablet,delayed 81 mg PO DAILY 10/17/24 10/17/24 History release duloxetine 60 mg capsule,delayed 60 mg PO DAILY 10/17/24 10/17/24 History release famotidine 20 mg tablet 20 mg PO DAILY 10/17/24 10/17/24 History macitentan 10 mg tablet (Opsumit) 10 mg PO DAILY 10/17/24 10/17/24 History melatonin 5 mg tablet 5 mg PO HS 10/17/24 10/17/24 History nortriptyline 25 mg capsule 25 mg PO HS 10/17/24 10/17/24 History sennosides 8.6 mg-docusate sodium 1 tab PO DAILY 10/17/24 10/17/24 History 50 mg tablet (Senexon-S) tadalafil (pulm. hypertension) 20 20 mg PO DAILY 10/17/24 10/17/24 History mg tablet (pulmonary hypertension) Held on 10/23/24. Instructions: pending follow-up with Pulmonology bumetanide 1 mg tablet 1 mg PO DAILY 10/18/24 10/18/24 History ferrous sulfate 325 mg (65 mg 325 mg PO Q48H 10/18/24 10/18/24 History iron) tablet (Feosol) metoprolol succinate 25 mg 25 mg PO DAILY 10/18/24 10/18/24 History tablet,extended release 24 hr clindamycin HCl 150 mg capsule 300 mg (2 x 150 mg) PO TID 5 days 10/23/24 Rx #30 caps polyethylene glycol 3350 17 gram 17 g PO DAILYP PRN Constipation 30 10/23/24 Rx oral powder packet (HealthyLax) days #30 ea New Prescriptions to Start Prescriptions: clindamycin HCl Brandon Oconnor polyethylene glycol 3350 [HealthyLax] Brandon Oconnor Allergies Allergy/AdvReac Type Severity Reaction Status Date / Time levofloxacin Allergy Verified 10/02/24 10:58 meperidine Allergy Verified 10/02/24 10:58 Discharge Plan Disposition Patient Disposition: Xfer [facility] Condition: Fair Discharge Order Discharge Orders: Discharge Order (Routine); Ordered 10/23/24 Ordered By: Brandon Oconnor Follow up Plan Follow up with: Fidel White PA [Physician Provider Relations Consultant, Cardiology] - 11/12/24 11:30 am Ryanne Whiting MD [Physician, Pulmonology] - 11/18/24 1:00 pm Prescriptions/Medication Reconciliation: New polyethylene glycol 3350 [HealthyLax] 17 gram Powder In Packet 17 g PO DAILYP PRN (Reason: Constipation) 30 Days Qty: 30 0RF clindamycin HCl 150 mg Capsule 300 mg PO TID 5 Days Qty: 30 0RF Continued nystatin 100,000 unit/gram powder 1 applic topical BID PRN (Reason: Excoriation) acetaminophen [Tylenol Extra Strength] 500 mg tablet 1,000 mg PO Q6H PRN (Reason: Mild Pain (Scale Score 1-4)) zolpidem [Ambien] 5 mg tablet 5 mg PO HS PRN (Reason: sleep) Qty: 30 0RF tirzepatide 5 mg/0.5 mL pen injector 5 mg SQ WEEKLY Qty: 2.5 2RF Opsumit 10 mg tablet 10 mg PO DAILY sennosides-docusate sodium [Senexon-S] 8.6-50 mg tablet 1 tab PO DAILY aspirin 81 mg tablet,delayed release (DR/EC) 81 mg PO DAILY nortriptyline 25 mg capsule 25 mg PO HS famotidine 20 mg tablet 20 mg PO DAILY duloxetine 60 mg capsule,delayed release(DR/EC) 60 mg PO DAILY melatonin 5 mg tablet 5 mg PO HS Eliquis 5 mg tablet 5 mg PO BID bumetanide 1 mg tablet 1 mg PO DAILY Patient Comments: TAKE 1 TABLET BY MOUTH ONCE DAILY metoprolol succinate 25 mg tablet extended release 24 hr 25 mg PO DAILY ferrous sulfate [Feosol] 325 mg (65 mg iron) tablet 325 mg PO Q48H Held atorvastatin 40 mg tablet 40 mg PO HS Qty: 90 1RF Hold Instructions: pending improvement in liver enzymes pantoprazole 40 mg tablet,delayed release (DR/EC) 40 mg PO HS Qty: 90 1RF Hold Instructions: pending completion of clindamycin tadalafil (pulm. hypertension) 20 mg tablet 20 mg PO DAILY Hold Instructions: pending follow-up with Pulmonology Discontinued spironolactone 25 mg tablet 25 mg PO DAILY dapagliflozin propanediol [Farxiga] 10 mg tablet 10 mg PO DAILY sacubitril-valsartan [Entresto] 24-26 mg tablet 1 tab PO BID Problem Reconciliation Problems Reviewed?: Yes Patient Discharge Instructions ACTIVITY: Continue current activity DIET: continue same diet Patient Instructions: Tricuspid Valve Disease, DI for Fatigue Print Language: Iraqi Providers Primary Care Provider: Luiz Sage Admit Provider: Goldy Weir Attending Provider: Goldy Weir
[2024-10-23 12:00] VITALS: BP 101/53; PULSE 75; PULSE 82; RESP 17; TEMP 36.7; O2SAT 94
--- NOTE | 2024-10-23 12:24 | XR_ITS ---
FINAL REPORT CLINICAL HISTORY: SOB COMPARISON: 10/21/2024 FINDINGS: SINGLE VIEW CHEST There is mild cardiomegaly. The mediastinum is unremarkable. The lungs are underinflated with bibasilar atelectasis, more evident than previous. There are mild diffuse chronic changes. There is no pneumothorax. IMPRESSION: Bibasilar atelectasis. Reviewed, Interpreted and Dictated by Zac Walsh MD Transcribed by Isabel Colón Authenticated and . [facility]
[2024-10-23] MEDS: MAGNESIUM SULFATE IN WATER 2 GM/50 ML PIGGYBACK IV ×2 (12:25→13:18)
[2024-10-23] MEDS: MACITENTAN 10 MG 10 EACH PO (12:25)
[2024-10-23] MEDS: CLINDAMYCIN 150MG CAPSULE 300 MG PO (14:23)
[2024-10-23 16:00] VITALS: PULSE 63
[2024-10-26 09:14] LABS: POC Glucose,Bedside 197 gm/dL (70-110)
[2024-10-26 09:20] LABS: POC Glucose,Bedside 158 gm/dL (70-110)
== END 2024-10-23 16:35 | DRG 314 ==
LOC: ER 19:38 → 2ND 20:00 → ICU 10-18 17:50 → 2ND 10-22 12:01
PROVIDERS: Internal Medicine Adolescent Medicine; Internal Medicine Pulmonary Disease; Admitting Provider Student in an Organized Health Care Education/Training Program; Emergency Provider Emergency Medicine; PCP Internal Medicine; Visit Provider Student in an Organized Health Care Education/Training Program
DX: I27.0 Primary pulmonary hypertension (principal); J15.212 Pneumonia due to Methicillin resistant Staphylococcus aureus; R57.8 Other shock; N17.9 Acute kidney failure, unspecified; I13.0 Hypertensive heart and chronic kidney disease with heart failure and stage 1 through stage 4 chronic kidney disease, or unspecified chronic kidney disease; N39.0 Urinary tract infection, site not specified; Q89.01 Asplenia (congenital); I07.1 Rheumatic tricuspid insufficiency; N18.9 Chronic kidney disease, unspecified; G47.33 Obstructive sleep apnea (adult) (pediatric); B96.20 Unspecified Escherichia coli [E. coli] as the cause of diseases classified elsewhere; R53.81 Other malaise; I48.0 Paroxysmal atrial fibrillation; I25.10 Atherosclerotic heart disease of native coronary artery without angina pectoris; Z22.322 Carrier or suspected carrier of Methicillin resistant Staphylococcus aureus; K74.60 Unspecified cirrhosis of liver; Z68.39 Body mass index [BMI] 39.0-39.9, adult; I27.81 Cor pulmonale (chronic); E66.811 Obesity, class 1; F32.9 Major depressive disorder, single episode, unspecified; K21.9 Gastro-esophageal reflux disease without esophagitis; I50.812 Chronic right heart failure; E11.22 Type 2 diabetes mellitus with diabetic chronic kidney disease; I50.84 End stage heart failure; Z66 Do not resuscitate; Z79.02 Long term (current) use of antithrombotics/antiplatelets; Z79.82 Long term (current) use of aspirin; Z79.01 Long term (current) use of anticoagulants; Z79.899 Other long term (current) drug therapy; Z79.85 Long-term (current) use of injectable non-insulin antidiabetic drugs
CPT/HCPCS: 0223U; 36415; 71045; 80053; 81001; 82533; 82803; 82962; 83605; 83735; 83880; 84145; 84443; 84484; 85007; 85025; 85610; 86140; 87040; 87070; 87077; 87086; 87088; 87186; 87205; 89220; 93005; 94640; 94761; 97163; 97165; 97530; 99283; G0378; J0696; J1171; J1756; J2260; J2270; J2405; J3475; J7120

== ENCOUNTER 2024-11-05 14:35 | Inpatient (IN) | payer MEDICARE, BC, SELFPAY ==
--- OUTSIDE RECORDS SUMMARY | 2024-09-15 10:40 | XMS_ITS | Encounter Summary ---
Author Organization [facility] Address [address] [place] [address] Care Team Providers Care Foundation Digger Name Role Phone Maegan Bermeo MD Primary Care Provider Reason for Visit * Reason Comments Wound Check Encounter Details Date Type Department Care Team (Latest Contact Info) Description 09/15/2024 10:40 AM EDT Office Visit [place] [facility] [address] [place] [address] Raimundo Hatch, DPM [address] [place] [address] Ulcer of [...] drink first t ken in the morning (EYE-WOOL BRUSHER) to steady your nerves or to get [...] Stoner RN - 09/15/2024 10:40 AM EDT [facility] Physician Orders/Patient Instructions Should you notice [...] also requesting palliative care. She lives in [facility] in his asking if there is a [...] draining area. I have recommended shoe see [place] foot [facility] ankle specialist in [facility] and she is interested in routine foot [...] documented as of this encounter Care Teams Foundation Digger Relationship Specialty Start Date End Date Maegan Bermeo MD [address] [place] [address] PCP - General Family Medicine 09/15/21 documented as of this encounter
--- OUTSIDE RECORDS SUMMARY | 2024-10-06 14:00 | XMS_ITS | Encounter Summary ---
Author Organization [facility] Address [address] [place] [address] Care Team Providers Care Compliance Administrator Name Role Phone System, Provider Not In Primary Care Provider Un available Reason for Visit * Reason Comments Tricuspid regurgitation Encounter Details Date Type Department Care Team (Late st Contact Info) Description 10/06/2024 2:00 PM EDT Office Visit [facility] Physicians - Cardiovascular Medicine [address] [place] [address] 180 [place] [address] Abisai Booth MD 401 [facility] 310 [place] [address] Tricuspid incompetence, non-rheumatic (Primary Dx); [...] not included. Structural Heart & Valve Intervention [facility] Cardiology Chief Complaint Patient presents with Tricuspid regurgitation Encounter Diagnoses Name Primary? Tricuspid incompetence, non-rheumatic Yes Shortness of breath Heart valve disorder History of Present Illness Rica Flannery is a 69 y.o. female that presents to [facility] for evaluation for tricuspid regurgitation and consideration for percutaneous transcatheter jmvs-au-naod tricuspid valve repair with TriClip (tricuspid clip). [...] tricuspid regurgitation and consideration for percutaneous transcatheter jafn-gy-ilaq tricuspid valve repair with TriClip (tricuspid clip). [...] hypertension is a relative contraindication for tricuspid valveclip. I feel that even if we were [...] Booth MD Structural Heart & Valve Disease [facility] Interventional Cardiology - [facility]) Shrimp Peeling Machine Tender, [facility] [phone] 10/06/2024 [1] Current Outpatient Medications: atorvastatin (Lipitor) [...] A WEEK, Disp: , Rfl: nystatin (Mycostatin) 046825 UNIT/GM powder, Apply topically in the morning [...] [facility] [address] [facility] [address] [place] [address] 01/13/2025 2:20 PM EST [facility] [address] [id number] Aubrey Chang MD [address] [place] [address], [address] [place] [address] 04/14/2025 2:20 PM EST Office Visit [facility] [address] [address] Aubrey Chang MD [address] [place] [address], [address] [place] [address] documented as of this encounter Procedures Procedure [...] disorder documented in this encounter Care Teams Compliance Administrator Relationship Specialty Start Date End Date System, Provider Not In PCP - General 10/06/24 documented as of this encounter
--- OUTSIDE RECORDS SUMMARY | 2024-10-07 14:00 | XMS_ITS | Encounter Summary ---
Author Organization [facility] Address [address] [place] [address] Care Team Providers Care Electric Track Switch Maintainer Name Role Phone System, Provider Not In Primary Care Provider Un available Reason for Visit * Consultation (Routine) - Closed Specialty Diagnoses / Procedures Referred By Contallison t Referred To Contact Pulmonology Diagnoses Pulmonary hypertension Procedures Pulmonary function test Aubrey Chang MD [address] [facility] [place] [address] Phone: tel: fax: [facility] [address] [facility] [address] [place] [address] Phone: tel: fax: Referral ID Status Reason Start Date Expiration Date V isits Requested Visits Authorized [id number] Closed Specialty Services Required 09/22/2024 10/22/2025 1 1 Encounter Details Date Type Department Care Team (Latest Contact Info) Description 10/07/2024 2:00 PM EDT Procedure Visit [facility] [address] [facility] [address] [place], [place] [phone] Pulmonary hypertension Social History Tobacco Use Types [...] Center [address] [place] [address] 01/13/2025 2:20 PM EST Telemedicine [facility] - Pul[facility]ology [address] [facility] [address] [place] [address] Aubrey Chang MD [address] [place] [address], [address] [place] [phone] 04/14/2025 2:20 PM EST Office Visit [facility] - Pulmonology [address] [address] Aubrey Chang MD [address] [place] [address], [address] [place] [address] documented as of this encounter Procedures Procedure [...] hypertension documented in this encounter Care Teams Electric Track Switch Maintainer Relationship Specialty Start Date End Date System, Provider Not In PCP - General 10/06/24 documented as of this encounter
--- OUTSIDE RECORDS SUMMARY | 2024-10-07 14:40 | XMS_ITS | Encounter Summary ---
Author Organization [facility] Address [address] [facility] [address] [place] [address] Care Team Providers Care Planimeter Operator Name Role Phone System, Provider Not In Primary Care Provider Un available Reason for Visit * Consultation (Routine) - Closed Specialty Diagnoses / Procedures Referred By Contac t Referred To Contact Pulmonology Diagnoses Pulmonary hypertension Procedures Six Minute Walk Test Aubrey Chang MD [address] [facility], [address] [place] [address] Phone: tel: fax: [facility] [address] [facility] [address] [place] [address] Phone: tel: fax: Referral ID Status Reason Start Date Expiration Date V isits Requested Visits Authorized [id number] Closed Specialty Services Required 09/22/2024 10/22/2025 1 1 Encounter Details Date Type Department Care Team (Latest Contact Info) Description 10/07/2024 2:40 PM EDT Procedure [facility] [address] [facility] [address] [place], [place] [phone] Pulmonary hypertension Social History Tobacco Use Types [...] - Sleep Center [address] [facility] [address] [place] [address] 01/13/2025 2:20 PM EST Telemedicine [facility] - Pulmonology [address] [facility] [address] [place] [address] Aubrey Chang MD [address] [place] [address], [address] [place] [phone] 04/14/2025 2:20 PM EST Office Visit [facility] - Pulmonology [address] [address] Aubrey Chang MD [address] [place] [address], [address] [place] [address] documented as of this encounter Procedures Procedure [...] hypertension documented in this encounter Care Teams Planimeter Operator Relationship Specialty Start Date End Date System, Provider Not In PCP - General 10/06/24 documented as of this encounter
--- OUTSIDE RECORDS SUMMARY | 2024-10-07 15:00 | XMS_ITS | Encounter Summary ---
Author Organization [facility] Address [address] [facility] [address] [place] [address] Care Team Providers Care Embossing Machine Tender Name Role Phone System, Provider Not In Primary Care Provider Un available Reason for Referral * Medications - Authorized Specialty Diagnoses / Procedures Referred By Contac t Referred To Contact Diagnoses Pulmonary hypertension, not otherwise specified Aubrey Chang MD [address] [place] [address], [address] [place] [address] Phone: tel: fax: Referral ID Status Reason Start Date Expiration Date V isits Requested Visits Authorized [id number] Authorized 09/23/2024 02/18/2099 1 1 * Sleep (Routine) - Closed Specialty Diagnoses / Procedures Referred By Odalis roland Referred To Contact Sleep Medicine Diagnoses Pulmonary hypertension, not otherwise specified Obstructive sleep apnea syndrome Aubrey Chang MD [address] [place] [address], [address] [place] [address] Phone: tel: fax: [place] [address] Phone: tel: fax: Referral ID Status Reason Start Date Expiration Date V isits Requested Visits Authorized [id number] Closed Specialty Services Required 10/07/2024 11/06/2025 1 1 Reason for Visit * Reason Comments Hospital Follow Up Pt. Here with sean simons who states that they saw cards yesterday who determined that she is not a candidate for the clips procedure d/t PH diagnosis. Pt. Endorses worsening SOB + Dizziness on exertion as well as worsening exertional fatigue. Was supposed to be set up with home PT and OT but have had numerous difficulties getting this arranged. Was referred for sleep study but has not been completed due to many other health concerns taking priority. Encounter Details Date Type Department Care Team (Late st Contact Info) Description 10/07/2024 3:00 PM EDT Office Visit [facility] - Pulmonology [address] [place] [address] [address] [place] [address] Aubrey Chang MD [address] [place] [address], [address] [place] [address] Pulmonary hypertension, not otherwise specified (Primary Dx); Obstructive sleep apnea syndrome Social History Tobacco Use Types Packs/Day Years [...] Sign Reading Time Taken Comments Blood Pressure 98/60 10/07/2024 2:45 PM EDT Pulse 77 10/07/2024 2:45 PM EDT Temperature 36.4 C (97.5 F) 10/07/2024 2:45 PM EDT Respiratory Rate 16 10/07/2024 2:45 PM EDT Oxygen Saturation 98% 10/07/2024 2:45 PM EDT Inhaled Oxygen Concentration - - Weight 99.2 kg (218 lb 12.8 oz) 10/07/2024 2:45 PM EDT Height 162.6 cm (5' 4 ) 10/07/2024 2:45 PM EDT Body Mass Index 37.56 10/07/2024 2:45 PM EDT documented in this encounter Functional [...] as of this encounter Progress Notes * Hans Casas MD - 10/07/2024 3:00 PM EDT [facility] - PULMONOLOGY CLINIC NOTE Patient: Rica Flannery Age: 69 y.o. Sex: female : 1955 Visit Date: 10/07/2024 Visit Type: Initial, Hospital follow up Chief Complaint Patient presents with Hospital Follow Up Pt. Here with caregiver who states that they saw cards yesterday who determined that she is not a candidate for the clips procedure d/t PH diagnosis. Pt. Endorses worsening SOB + Dizziness on exertion as well as worsening exertional fatigue. Was supposed to be set up with home PT and OT but have had numerous difficulties getting this arranged. Was referred for sleep study but has not been completed due to many other health concerns taking priority. History of Present Illness Patient is a 69yo F w/ PMHx of pAfib, HFrEF, severe TR, HTN, T2DM, and insomnia who presents for evaluation of pulmonary hypertension after recent hospitalization. Patient was recently seen at for shortness of breath and volume overload and discharged on 09/19/24. Patient with multiple HF exacerbations in the past. Underwent RHC showing severe pulm HTN w/ a predominant precapillary component and elevated PVR. LHC showed nonobstructive CAD. KATJA showed massively severe TR amenable to TriClip, however given her severely elevated PA pressures she was deemed a poor candidate for TriClip at this time. CT chest done showed no parenchymal or interstitial lung disease. V/Q scan was low probability for CTEPH. Patient was referred to Pulm HTN clinic for furtherevaluation and management. Patient states that her breathing has been normal since discharge. No shortness of breath with walking to bathroom or kitchen but has been more tired recently. Not really any points where she has been really short of breath but has been with minimal activity. Has been using wheelchair recenlty. Difficult to evaluate with currently low BP. Doesn't use any oxygen at home. Since discharge, increased bumex to 2mg Bid. Had good urine output and was losing water but having borderline hypotension with SBP in 70-90s. Endorsed dizziness and lightheadedness when standing up. Recently saw ceo [place] yesterday and metoprolol discontinued. BP during visit was 98/60. Also found to be anemic at PCP and started on supplemental iron. Past Medical, Social and Family History Active Ambulatory Problems Diagnosis Date Noted Acquired deformity of toe 08/11/2024 Acute exacerbation of chronic congestive heart failure 05/17/2022 Acute respiratory failure with hypoxia 10/26/2021 Anasarca 05/20/2022 At high risk for fall 03/03/2022 Body mass index 40+ - severely obese ([facility]) 06/06/2021 Chronic atrial fibrillation ([facility]) 10/11/2021 Chronic right-sided heart failure 10/31/2021 COVID-19 10/27/2021 Diabetic neuropathy with neurologic complication 08/11/2024 Essential (primary) hypertension 05/24/2017 Fall 10/27/2021 Fracture of twelfth thoracic vertebra ([facility]) 10/26/2021 Generalized anxiety disorder 03/04/2021 Lesion of uterus 10/27/2021 Mixed hyperlipidemia 04/23/2019 Osteolysis 05/16/2022 Pleural effusion 11/05/2021 Polyneuropathy due to type 2 diabetes mellitus 05/24/2017 Right cardiac ventricular dilatation 10/11/2021 Thrombocytosis 10/28/2021 Ulcer of toe of left foot 08/11/2024 Resolved Ambulatory Problems Diagnosis Date Noted No Resolved Ambulatory Problems No Additional Past Medical History Surgical History[1] Current Outpatient Medications Medication Instructions atorvastatin (LIPITOR) 40 mg, Daily bumetanide (BUMEX) 1 mg, 2 times daily dapagliflozin (FARXIGA) 10 mg, Daily DULoxetine (Cymbalta) [address] capsule Eliquis 5 MG tablet Entresto 24-26 MG tablet 1 tablet, 2 times daily ferrous sulfate 325 (65 Fe) MG tablet 1 tablet, Every other day Januvia 50 MG tablet metoprolol succinate XL (Toprol-XL) 25 MG 24 hr tablet Mounjaro 5 MG/0.5ML solution auto-injector INJECT 0.5 ML SUBCUTANEOUSLY ONCE A WEEK nystatin (Mycostatin) 686170 UNIT/GM powder 2 times daily RT pantoprazole (PROTONIX) 40 mg, Daily spironolactone (ALDACTONE) 25 mg, Daily tadalafil (antihypertensive) (ADCIRCA) 20 mg, Oral, Daily zolpidem (AMBIEN) 5 mg, Daily PRN Allergies[2] Social History[3] Family History[4] Review of Systems Patient denies chest pain, chest tightness, cough. Patient endorses shortness of breath Vitals Vitals: 10/07/24 1445 BP: 98/60 BP Location: Right arm Patient Position: Sitting BP Cuff Size: Large adult Pulse: 77 Resp: 16 Temp: 97.5 ??F (36.4 ??C) TempSrc: Temporal SpO2: 98% Weight: 218 lb 12.8 oz (99.2 kg) Height: 5' 4 (1.626 m) 10/07/2024 2:45 PM 10/06/2024 2:30 PM Oxygen Therapy SpO2 98 % 92 % Physical Exam Physical Exam Constitutional: Appearance: Normal appearance. She is obese. Comments: Sitting in chair comfortably with walker HENT: Head: Normocephalic and atraumatic. Eyes: Extraocular Movements: Extraocular movements intact. Cardiovascular: Rate and Rhythm: Normal rate and regular rhythm. Heart sounds: Normal heart sounds. Pulmonary: Effort: Pulmonary effort is normal. Breath sounds: No wheezing, rhonchi or rales. Comments: Decreased breath sounds bilaterally in lower lung child Abdominal: General: Abdomen is flat. Palpations: Abdomen is soft. Musculoskeletal: Right lower leg: Edema present. Left lower leg: Edema present. Neurological: General: No focal deficit present. Mental Status: She is alert and oriented to person, place, and time. Psychiatric: Mood and Affect: Mood normal. Behavior: Behavior normal. Laboratory No results found for: WBC , HGB , HCT , PLT , NA , K , CL , CO2 , BUN , CREATININE , GLUF , AST , ALT , BILITOT , ALKPHOS , INR , ANAPATTRN , ANATITERADD , [id number] , ALPHA1 , HIV1X2 , ANCA , RF , CCP , SCL70 , CKTOTAL Imaging === 09/29/24 === CT CHEST WO (09/17/24): - no parenchymal findings or suspicions for ILD Diagnostics 6MWT (10/07/24): Baseline 99 desat to 98, predicted 18% (66m walked) PFT (10/07/24): Normal flow and volumes with mildly low DLCO at 61% V/Q scan (09/18/24): no mismatched perfusion detected, low probability of pulmonary embolism KATJA 09/17/24: LVEF 65%, severe TR, flattened septum, mPAP 52 mmhg, retrograde flow into superior hepatic vein RHC 09/16/24: mPAP 57, PWCP 16, PVR 8.86, CO 4.65, CI 2.2 Impression 1. Pulmonary hypertension, not otherwise specified 2. Obstructive sleep apnea syndrome Plan Patient is a 69yo F w/ PMHx of pAfib, HFrEF, severe TR, HTN, T2DM, and insomnia who presents for evaluation of pulmonary hypertension after recent hospitalization. #Pulmonary HTN - RHC w/ mPAP 57, wedge 16, PVR 8 - KATJA with EF > 65%, and CI 2.2. - REVEAL lite 2 of +6, NYHA III - RHC with pre-capillary predominance, V/Q negative, PFTs with good volumes, flow, and mildly low diffusion. Most likely group 1 PAH. Will start ERA and PDE5i but at low dose d/t borderline hypotension. Plan - Start macitentan 10mg daily - Start tadalafil 20mg daily -- Up titrate meds pending BP tolerance. Can consider switching to OPSYNVI at next appt - Follow up in 3 months with TeleHealth - Has scheduled sleep study in November Orders Placed This Encounter Procedures Ambulatory referral to Sleep Studies Follow up in about 3 months (around 01/07/2025). Hans Casas MD [facility] - PULMONOLOGY 10/07/2024 [1] History reviewed. No pertinent surgical history. [2] Allergies Allergen Reactions Levofloxacin Hives Meperidine Nausea Only [3] Social History Tobacco Use Smoking status: Never Smokeless tobacco: Never Substance Use Topics Alcohol use: Never Drug use: Never [4] No family history on file. Cosigned by Aubrey Chang MD at 10/09/2024 3:06 PM EDT Associated attestation - Aubrey Chang MD - 10/09/2024 3:06 PM EDT I have seen, examined and discussed this case with Dr. Casas. I agree with the note above with the following additions and/or exceptions: Pt. With recent admission for Tri-Clip which was deferred due to presence of hemodynamicallt significant Pre-Capillary Pulmonary Hypertension. Her BP remains borderline low, will need gentle initiation and titration of Pulmonary Vasodilators. Start Tadalafil 20mg Daily and Macitentan 10mg Daily, depending on tolerance will consider combining them at next visit. Follow-up in 3 months as Telehealth. Aubrey Chang MD [facility] documented in this encounter Plan of Treatment Upcoming Encounters Date Type Department Care Team (Late st Contact Info) Description 11/19/2024 8:00 PM EDT Procedure Visit [facility] - Sleep Center [address] [facility] [address] [place] [address] 01/13/2025 2:20 PM EST Telemedicine [facility] - Pulmonology [address] [address] Aubrey Chang MD [address] [place] [address], [address] [place] [phone] 04/14/2025 2:20 PM EST Office Visit [facility] - Pulmonology [address] [address] Aubrey Chang MD [address] [place] [address], [address] [place] [phone] Scheduled Referrals Name Type Priority Associated Diagnoses Order Schedule Ambulatory referral to Sleep Studies Outpatient Referral Routine Pulmonary hypertension, not otherwise specified Obstructive sleep apnea syndrome Ordered: 10/07/2024 documented as of this encounter Visit Diagnoses Diagnosis Pulmonary hypertension, not otherwise specified- Primary Obstructive sleep apnea syndrome documented in this encounter Care Teams Embossing Machine Tender Relationship Specialty Start Date End Date System, Provider Not In PCP - General 10/06/24 documented as of this encounter
[2024-11-05 14:37] VITALS: BP 147/68; PULSE 101; RESP 22; TEMP 37.1; O2SAT 88; BMI 38.6
--- NOTE | 2024-11-05 14:39 | XR_ITS ---
FINAL REPORT CLINICAL HISTORY: Shortness of breath, congestion, cough with mucus COMPARISON: 10/23/2024 FINDINGS: A single frontal view of the chest was obtained. No acute pulmonary density is present. There is no evidence of effusion or pneumothorax. Mediastinum is unremarkable. Heart size is mildly enlarged. Tortuous aorta is noted. IMPRESSION: No acute abnormality. Reviewed, Interpreted and Dictated by Dandy Ascencio MD Transcribed by Rula Mackenzie Authenticated and [facility]
--- NOTE | 2024-11-05 14:39 | ED_ITS ---
<Statement entered by Sridevi Valiente DO - 11/17/24 07:11> I was consulted by the KRISTY, and we discussed the complexity of problems being addressed. I approved the treatment plan and management plan of this patient's care in the emergency department, thus performing a substantive portion of medical decision making. Sridevi Valiente DO Discharge Plan Disposition Patient Disposition: Admitted Condition: Fair Prescriptions Prescriptions: No Action nystatin 100,000 unit/gram powder 1 applic topical BID PRN (Reason: Excoriation) acetaminophen [Tylenol Extra Strength] 500 mg tablet 1,000 mg PO Q6H PRN (Reason: Mild Pain (Scale Score 1-4)) zolpidem [Ambien] 5 mg tablet 5 mg PO HS PRN (Reason: sleep) Qty: 30 0RF atorvastatin 40 mg tablet 40 mg PO HS Qty: 90 1RF pantoprazole 40 mg tablet,delayed release (DR/EC) 40 mg PO HS Qty: 90 1RF tirzepatide 5 mg/0.5 mL pen injector 5 mg SQ WEEKLY Qty: 2.5 2RF Opsumit 10 mg tablet 10 mg PO DAILY sennosides-docusate sodium [Senexon-S] 8.6-50 mg tablet 1 tab PO DAILY aspirin 81 mg tablet,delayed release (DR/EC) 81 mg PO DAILY nortriptyline 25 mg capsule 25 mg PO HS famotidine 20 mg tablet 20 mg PO DAILY duloxetine 60 mg capsule,delayed release(DR/EC) 60 mg PO DAILY melatonin 5 mg tablet 5 mg PO HS Eliquis 5 mg tablet 5 mg PO BID tadalafil (pulm. hypertension) 20 mg tablet 20 mg PO DAILY bumetanide 1 mg tablet 1 mg PO DAILY Patient Comments: TAKE 1 TABLET BY MOUTH ONCE DAILY metoprolol succinate 25 mg tablet extended release 24 hr 25 mg PO DAILY ferrous sulfate [Feosol] 325 mg (65 mg iron) tablet 325 mg PO Q48H polyethylene glycol 3350 [HealthyLax] 17 gram Powder In Packet 17 g PO DAILYP PRN (Reason: Constipation) 30 Days Qty: 30 0RF clindamycin HCl 150 mg Capsule 300 mg PO TID 5 Days Qty: 30 0RF Referrals Follow up/Referrals: Luiz Sage DO [Primary Care Provider, Family Practice] - See instructions Clinical Impressions Clinical Impression: Acute exacerbation of chronic heart failure Print Language Print Language: Slovenian Discharge ED Provider: Sridevi Valiente General Adult HPI General Chief complaint: Shortness of Breath/Dyspnea Stated complaint: SOA Time Seen by Provider: 11/05/24 14:39 History of Present Illness HPI narrative: 69-year-old female presents emergency department via EMS from long term facility with complaints of shortness of breath. Patient recently diagnosed with pneumonia and finished clindamycin last week.. Patient states she does not wear oxygen at baseline however arrives to the emergency department requiring supplemental oxygen via nasal cannula. Patient denies chest pain, fevers. Related Data Home Medications ?Medication ?Instructions ?Recorded ?Confirmed acetaminophen 500 mg tablet 1,000 mg PO Q6H PRN Mild P ain 05/09/24 10/17/24 (Tylenol Extra Strength) (Scale Score 1-4) nystatin 100,000 unit/gram topical 1 applic topical BI D PRN 09/30/24 10/17/24 powder Excoriation apixaban 5 mg tablet (Eliquis) 5 mg PO BID 10/17/24 aspirin 81 mg tablet,delayed 81 mg PO DAILY 10/17/24 0 10/17/24 release duloxetine 60 mg capsule,delayed 60 mg PO DAILY 10/17/24 release famotidine 20 mg tablet 20 mg PO DAILY 10/17/2409/20 macitentan 10 mg tablet (Opsumit) 10 mg PO DAILY 10/1710/17/24 melatonin 5 mg tablet 5 mg PO HS 10/17/24 10/17/24 nortriptyline 25 mg capsule 25 mg PO HS 10/17/2410/17 sennosides 8.6 mg-docusate sodium 1 tab PO DAILY 10/1710/17/24 50 mg tablet (Senexon-S) tadalafil (pulm. hypertension) 20 20 mg PO DAILY 10/1710/17/24 mg tablet (pulmonary hypertension) Held on 10/23/24. Instructions: pending follow-up with Pulmonology bumetanide 1 mg tablet 1 mg PO DAILY 10/18/2410/18 ferrous sulfate 325 mg (65 mg 325 mg PO Q48H 10/18/24 10/18/24 iron) tablet (Feosol) metoprolol succinate 25 mg 25 mg PO DAILY 10/18/24 tablet,extended release 24 hr Previous Rx's ?Medication ?Instructions ?Recorded atorvastatin 40 mg tablet 40 mg PO HS #90 tabs 5 Held on 10/23/24. Instructions: pending improvement in liver enzymes pantoprazole 40 mg tablet,delayed 40 mg PO HS #90 tabs 06/09/24 release Held on 10/23/24. Instructions: pending completion of clindamycin tirzepatide 5 mg/0.5 mL 5 mg (0.5 mL) SQ WEEKLY #2.5 mL 07/22/24 subcutaneous pen injector zolpidem 5 mg tablet (Ambien) 5 mg PO HS PRN sleep #30 tabs 08/26/24 clindamycin HCl 150 mg capsule 300 mg (2 x 150 mg) PO TID 5 days 10/23/24 #30 caps polyethylene glycol 3350 17 gram 17 g PO DAILYP PRN Co nstipation 30 10/23/24 oral powder packet (HealthyLax) days #30 ea Allergies Allergy/AdvReac Type Severity Reaction Status Date / Time levofloxacin Allergy Verified 10/02/24 10:58 meperidine Allergy Verified 10/02/24 10:58 PFS PFS Disclaimer: The information contained in this section may have been updated after the patient was seen, as this information can be updated by other users. Medical History Acute and chronic respiratory failure with hypoxia Cor pulmonale Hypertension Abnormal abdominal CT scan Peripheral arterial disease Primary pulmonary hypertension Type 2 diabetes mellitus with foot ulcer UTI (urinary tract infection) Renal insufficiency Hyperkalemia Hypotension CAD in [place] artery BMI 39.0-39.9,adult Chronic anemia Chronic anticoagulation Coronary artery disease Diabetes HFrEF (heart failure with reduced ejection fraction) Pulmonary hypertension Depression Constipation GERD (gastroesophageal reflux disease) Oxygen dependent Atrial fibrillation Surgical History Status post left heart catheterization Family History Other Alcohol abuse Family history of cancer Heart attack Social History Smoking Status: Never smoker alcohol intake: never current occupational status: unemployed Travel in the last 8 weeks?: None Have you lived/traveled outside US in past 30 days?: No Contact w/someone who lives/traveled outside US past 30 days?: No Exposure to someone with infectious disease in past 14 days?: No Do you have a fever (greater than 100.4 F or 38 C)?: No Have you tested positive for COVID-19?: No Exposed to someone with COVID-19 in past 14 days?: No Do you have a sore throat?: No Do you have a cough?: No Do you have any weakness?: No Do you have any diarrhea?: No Are you experiencing any unusual bleeding?: No Do you have any muscle aches/pain?: No Do you have any abdominal pain?: No Are you experiencing loss of taste or smell?: No Other Medical History Have you received the Flu Vaccine for this season: No Have you received the Pneumonia Vaccine: No ROS Obtained: Yes other Cardiovascular Cardiovascular: Reports dyspnea Respiratory Respiratory: Reports chest congestion, Reports cough and Reports dyspnea Physical Exam Narrative Physical exam: General: Awake, aware, in no acute distress HEENT: Normocephalic, no evidence of trauma CV: RRR, no murmurs, rubs, or gallops. Patient with 2+ pitting edema to bilateral lower extremities. Pulm: Patient with increased work of breathing. Currently requiring supplemental oxygen via nasal cannula. Patient with wheezing and rhonchi bilaterally. ABD: Nontender, no swelling, guarding, or rebound tenderness Psych, appropriate mood and affect General General appearance: alert Respiratory Respiratory exam: Present respiratory distress and wheezes Cardiovascular Cardiovascular exam: Present tachycardia and irregular rhythm Neurological Exam Neurological exam: Present alert Medical Decision Making Medical Records Screening: Per USPSTF and CDC recommendations, given the prevalence of disease in our region, it is our hospital?s policy to screen for HIV and viral Hepatitis for all patients aged 18 and over and those with ongoing risk factors. Abdifatah Inquiry Pt receiving controlled substance: No Vital Signs: 11/05/24 14:37 11/05/24 16:50 11/05/24 17:00 Temperature 98.8 F Temperature Source Oral Pulse Rate 84 86 Pulse Rate [Right] 101 H Respiratory Rate 22 20 17 Blood Pressure 120/60 117/68 Blood Pressure [Left Arm] 147/68 H Blood Pressure Mean [Left Arm] 94 02 Sat by Pulse Oximetry 88 L 100 98 Oxygen Delivery Method Room Air Nasal Cannula Nasal Cannula Oxygen Flow Rate (LPM) 2 2 Lab Data Lab Results 11/05/24 14:39: WBC 11.2 H, RBC 3.54 L, Hgb 8.2 L, Hct 27.5 L, MCV 77.7 L, MCH 23.2 L, MCHC 29.8 L, RDW 26.0 H*, Plt Count 526 H, MPV 10.3, Neut % (Auto) 65.6, Lymph % (Auto) 11.1, [place] % (Auto) 18.8 H, Eos % (Auto) 3.1, Baso % (Auto) 1.0, Neut # (Auto) 7.4, Lymph # (Auto) 1.2, [place] # (Auto) 2.1 H, Eos # (Auto) 0.4, Baso # (Auto) 0.1, Total Counted 100, Neutrophils % (Manual) 66, Band Neutrophils % 1.0, Lymphocytes % (Manual) 10, Monocytes % (Manual) 21 H, Eosinophils % (Manual) 2, Platelet Estimate Moderate increase, RBC Morphology Normal, Sodium 134 L, Potassium 4.0, Chloride 97 L, Carbon Dioxide 32 H, Anion Gap 9.0, BUN 23 H, Creatinine 1.00, Estimated Creat Clear 83, Estimated GFR 55 L , Est GFR ( Amer) 66, Glucose 182 H, Lactate 2.6 H, Calcium 8.5, Magnesium 1.7, Total Bilirubin 0.8, AST 37 H, ALT 32, Alkaline Phosphatase 243 H , Troponin I 0.02, NT-Pro-B Natriuret Pep 5850 H, Total Protein 7.5, Albumin 3.7, Globulin 3.8 H, Albumin/Globulin Ratio 1.0 L 11/05/24 14:54: SARS-CoV-2 (PCR) Not detected, Influenza A Untype (PCR) Not detected, Influenza Type B (PCR) Not detected 11/05/24 15:28: Urine Color Yellow, Urine Appearance Clear, Urine pH 5.5, Ur Specific [place] 1.020, Urine Protein Negative, Urine Glucose (UA) Negative, Urine Ketones Negative, Urine Blood 1+ A, Urine Nitrate Negative, Urine Bilirubin Negative, Urine Urobilinogen 0.2, Ur Leukocyte Esterase Negative, Urine RBC 5-10, Urine WBC 3-5, Ur Squamous Epith Cells 20-50, Urine Bacteria 2+ 11/05/24 14:39 11/05/24 14:39 Orders (Tests/Meds): ED MEDICATIONS Discontinued Medications Generic Name Dose Route Start Last Admin Trade Name Riveraq PRN Reason Stop Dose Admin Albuterol/Ipratropium 3 ml 11/05/24 14:49 11/05/24 15:32 Ipratropium/Albuterol 3 Ml Neb IH 11/05/24 14:50 3 ml ONCE ONE Administration Piperacillin Sod/Tazobactam 50 mls @ 100 mls/hr 11/05/24 15:00 11/05/24 16:43 Sod 3.375 gm/ Sodium Chloride IV 11/05/24 15:29 Infused Q6H ONE Infusion Vancomycin/PEG/NADA/Lysine/Water 1.5 gm in 300 mls @ 150 mls/hr 11/05/24 15:15 11/05/24 16:46 Vancomycin 1.5gm/300ml (Peg) Premix IV 11/05/24 17:14 150 mls/hr ONCE ONE Administration Miscellaneous 1 each 11/05/24 15:00 11/05/24 15:45 Vancomycin Consult Request NOTAPPLIC 12/05/24 14:59 1 each CONSULT PHARMACY [facility] Administration ORDERS Category Date Time Status CTA Chest [CT angio chest PE protocol] Stat Cat Scan 11/05/24 16:05 Ordered XR chest portable Stat Exams 11/05/24 14:39 Completed BNP [NT Pro Brain Natriuretic Pep.] Stat Lab 11/05/24 14:39 Completed CBC w/Auto Diff [Complete Blood Count Auto Diff] Stat Lab 11/05/24 14:39 Completed CMP [Comprehensive Metabolic Panel] Stat Lab 11/05/24 14:39 Completed Lactic Acid Stat Lab 11/05/24 14:39 Completed Magnesium Stat Lab 11/05/24 14:39 Completed Rapid PCR Covid and Flu A/B Stat Lab 11/05/24 14:54 Completed Troponin I Q3H Lab 11/05/24 14:39 Completed Troponin I Q3H Lab 11/05/24 17:45 Ordered Urinalysis and Microscopic Stat Lab 11/05/24 15:28 Completed Blood Culture Stat Micro 11/05/24 15:15 Received Urine Culture Stat Micro 11/05/24 15:28 Received Medical Decision Narrative: Initial impression of presenting illness: 69-year-old female with a history of recent pneumonia and congestive heart failure presents emergency department with complaints of shortness of breath. Patient was recently diagnosed with pneumonia and treated with clindamycin which she finished last week. She denies fever, chest pain. She does not require supplemental oxygen at baseline however upon arrival to the emergency department she is on nasal cannula. Differential diagnosis includes but is not limited to: Pneumonia, viral illness, heart failure exacerbation, COPD, sepsis Patient arrives hemodynamically stable, afebrile, without respiratory distress with vital signs interpreted by myself. Initial physical exam reveals wheezing and rhonchi bilaterally with increased work of breathing. Patient with 2+ pitting edema to bilateral lower extremities. Rest of exam unremarkable. Initial diagnostic plan: Sepsis workup including troponin and BNP. Will hold on fluids at this time as patient appears to be fluid overloaded with 2+ pitting edema to bilateral lower extremities and patient is currently normotensive. Will start IV Vanco and Zosyn. Results from initial plan were reviewed and interpreted by myself, pertinent positives include: BNP 5850, lactate 2.6, white blood cell count 11.2, chest x- ray shows mild enlarged heart. Urinalysis was positive for 2+ bacteria however there was 20-50 epithelial cells per high-power field. Laboratory studies including COVID and flu swabs were nonactionable. CTA of chest is pending at this time. EKG with no ischemic changes but did show atrial fibrillation Interventions in the ED: Patient was placed on a nasal cannula to maintain SpO2 greater than 90%. He was also given vancomycin and Zosyn for treatment of possible pneumonia while we completed her workup. Patient was made aware of the results and the findings, upon reevaluation patient has remained stable throughout stay, symptoms remain stable. Patient still requiring supplemental oxygen. She continues to deny pain at this time. Consultation/discussion with other physicians: Spoke with hospitalist Dr. Oconnor who came to ER to see patient as he was involved in her care during her last hospitalization. He reports that she is significantly more swollen than at the time of her discharge and estimates that she has probably gained approximately 20 pounds. He feels that her symptoms are likely related more to heart failure exacerbation as opposed to an actual pneumonia. Agreeable to admit patient for continued treatment of her heart failure exacerbation. Disposition: Reviewed the findings today's workup with patient and family and informed that we would like to admit them for further treatment. They were agreeable to this admission. Patient made aware of findings and had a detailed discussion with symptomatic care and return precautions, patient voiced understanding. Critical Care Critical Care Time Critical Care Time: No
[2024-11-05 14:46] LABS: Hematocrit 27.5 % (37.0-47.0); Hemoglobin 8.2 g/dL (12.2-16.2); Immature Granulocytes % 0.4 %; Mean Corpuscular HGB Conc 29.8 g/dL (31.8-35.4); Mean Corpuscular Hemoglobin 23.2 pg (27.0-31.2); Mean Corpuscular Volume 77.7 fl (81-99); Nucleated Red Blood Cells % 0.2 %; Platelet Count 526 K/mm3 (142-424); Red Blood Count 3.54 M/mm3 (4.20-5.40); Red Cell Distribution Width-SD 71.0 fL; White Blood Count 11.2 K/mm3 (4.8-10.8)
--- OUTSIDE RECORDS SUMMARY | 2024-11-05 14:51 | XMS_ITS | Encounter Summary ---
Author Organization Healthcare Address [address] [place] [address] Care Team Providers Care Edi Specialist Name Role Phone Jan Castelan MD Primary Care Provider [phone] Benjie Quezada MD Primary Care Provider Tamika Loomis APRN Primary Care Provider [phone] Maegan Bermeo MD Primary Care Provider [phone] Audra Wahl COAL CHUTE WORKER Unavailable Unavailab Jessa Jimenez COAL CHUTE WORKER Unavailable Unavailable Reason for Visit * Reason Comments Med Refill Encounter Details Date Type Department Care Team (Late st Contact Info) Description 07/27/2020 Refill [facility] [address] [place] [address] Jan Castelan MD [address] [place] [address] Social History Tobacco Use Types [...] and sent to appropriate Health Dept. IPAC Process Control Supervisor: Brandiedon Demi 10/26/2021 10/26/2021 022 10:27 AM EDT COVID 19 (Confirmed) 11/11/2021 11/11/2021 022 5:23 AM EDT COVID-19 Rule-Out 05/16/2022 05/16/2022 05/16/2022 11:05 PM EDT documented as of this encounter Care Teams Edi Specialist Relationship Specialty Start Date End Date Jan Castelan MD [address] [place] [id number] PCP - General 07/02/20 08/07/21 Benjie Quezada MD [address] [place] [address] PCP - General Family Medicine 08/08/21 08/30/21 Tamika Loomis APRN [address] [place] [address] PCP - General Family Medicine 08/31/21 09/14/21 Maegan Bermeo MD [address] [place] [address] PCP - General Family Medicine 09/15/21 Audra Wahl LPN [employer] [place] [address] TCM Nurse 09/27/21 10/27/21 Jessa Park LPN [employer] [place] [address] Registered Nurse 05/26/22 05/26/22 documented as of this encounter
--- OUTSIDE RECORDS SUMMARY | 2024-11-05 14:51 | XMS_ITS | Encounter Summary ---
Author Organization [facility] Address [address] [facility] [address] [place] [address] Care Team Providers Care Surg Tech Name Role Phone System, Provider Not In [...] [facility] - Sleep Center [address] [facility] [address] [place] [address] 01/13/2025 2:20 PM EST Telemedicine [facility] - Pulmonology [address] [facility] [address] [place] [address] Aubrey Chang MD [address] [place] [address], [address] [address] 04/14/2025 2:20 PM EST Office Visit [facility] Pulmonology [address] [address] Aubrey Chang MD [address] [place] [address], [address] [place] [address] documented as of this encounter Visit Diagnoses Not on filedocumented in this encounter Care Teams Surg Tech Relationship Specialty Start Date End Date System, Provider Not In PCP - General 10/06/24 documented as of this encounter
--- OUTSIDE RECORDS SUMMARY | 2024-11-05 14:51 | XMS_ITS | Encounter Summary ---
Author Organization [facility] Address [address] [place] [address] Care Team Providers Care Tile Layer Supervisor Name Role Phone System, Provider Not In Primary Care Provider Un available Reason for Visit * Reason Onset Date Comments Opsumit RX 10/08/2024 Encounter Details Date Type Department Care Team (Late Contact Info) Description 10/08/2024 Telephone [facility] - Pulmonology [address] [place] [address] Shikha Clayton MA Ops[facility] RX Social History [...] me. It has been approved. Auth #: [id number] and is valid until further notice . documented in this encounter Plan of Treatment Upcoming Encounters Date Type Department Care Team ([facility] Contact Info) Description 11/19/2024 8:00 PM EDT Procedure Visit [facility] [address] [place] [address] 01/13/2025 2:20 PM EST Telemedicine [facility] - Pulmonology [address] [address] Aubrey Chang MD [address] [place] [address], [address] [place] [phone] 04/14/2025 2:20 PM EST Office Visit [facility] - Pulmonology [address] [address] Aubrey Chang MD [address] [place] [address], [address] [place] [phone] documented as of this encounter Visit Diagnoses Not on filedocumented in this encounter Care Teams Tile Layer Supervisor Relationship Specialty Start Date End Date System, Provider Not In PCP - General 10/06/24 documented as of this encounter
--- OUTSIDE RECORDS SUMMARY | 2024-11-05 14:51 | XMS_ITS | Encounter Summary ---
Author Organization [facility] Address [address] [place] [address] Care Team Providers Care Drug Inspector Name Role Phone System, Provider Not In Primary Care Provider Un available Reason for Visit * Reason Onset Date Comments Side Effects 10/15/2024 Encounter Details Date Type Department Care Team (Late st Contact Info) Description 10/15/2024 Telephone [facility] Pul[facility] [address] [place] [address] Shikha Clayton MA Side Effects Social History [...] is any concern with these symptoms. Pharmacy: [facility] in [place]. documented in this encounter Plan of Treatment Upcoming Encounters Date Type Department Care Team (Late st Contact Info) Description 11/19/2024 8:00 PM EDT Procedure Visit [facility] [address] [facility] [address] [place] [address] 01/13/2025 2:20 PM EST Telemedicine [facility] - Pulmonology [address] [address] Aubrey Chang MD [address] [place] [phone] 04/14/2025 2:20 PM EST Office Visit [facility] - Pulmonology [address] [address] Aubrey Chang MD [address] [place] [phone] documented as of this encounter Visit Diagnoses Diagnosis Pulmonary hypertension, not otherwise specified- Primary documented in this encounter Care Teams Drug Inspector Relationship Specialty Start Date End Date System, Provider Not In PCP - General 10/06/24 documented as of this encounter
--- OUTSIDE RECORDS SUMMARY | 2024-11-05 14:51 | XMS_ITS | Clinical Summary ---
Author Organization [facility] Address [address] [place] [address] Care Team Providers Care Net Programmer Name Role Phone Tricia Pérez MD Primary Care Provider [phone] Allergies Active Allergy Reactions Criticality Noted Date [...] WELLNESS VISIT 07/20/2018 HEPATITIS C SCREENING 07/20/2018 INFLUENZA VACCINE 09/19/2024 COVID-19 Vaccine (1 - 2024-25 season) 2024 Insurance MEDICARE A & B [facility] Care Teams Net Programmer Relationship Specialty Start Date End Date Tricia Pérez MD [address] [place] [address] PCP - General Family Medicine 07/20/18
--- OUTSIDE RECORDS SUMMARY | 2024-11-05 14:51 | XMS_ITS | Encounter Summary ---
Author Organization [facility] Address [address] [place] [address] Care Team Providers Care Wine Cellar Worker Name Role Phone Maegan Bermeo MD Primary Care Provider [phone] Encounter Details Date Type Department Care Team [...] drink first t ken in the morning (EYE-AUTOMOBILE UPHOLSTERER APPRENTICE) to steady your nerves or to get [...] documented as of this encounter Care Teams Wine Cellar Worker Relationship Specialty Start Date End Date Maegan Bermeo MD [address] [place] [phone] PCP - General Family Medicine 09/15/21 documented as of this encounter
--- OUTSIDE RECORDS SUMMARY | 2024-11-05 14:51 | XMS_ITS | Encounter Summary ---
Author Organization [facility] Address [address] [facility] [address] [place] [address] Care Team Providers Care Prospecting Driller Name Role Phone Cassia Blanco Dr Primary Care Provider Unavailabl e Encounter Details Date Type Department Care Team (Late Contact Info) Description 09/29/2024 Orders Only [facility] - Pulmonology [address] [address] Pcp, None Social History Tobacco Use Types [...] [facility] - Sleep Center [address] [place] [address] 01/13/2025 2:20 PM EST Telemedicine [facility] - Pulmonology [address] [address] Aubrey Chang MD [address] [place] [address], [address] [place] [address] 04/14/2025 2:20 PM EST Office Visit [facility] - Pulmonology [address] [address] Aubrey Chang MD [address] [place] [address], [address] [place] [address] documented as of this encounter Procedures Procedure [...] on filedocumented in this encounter Care Teams Prospecting Driller Relationship Specialty Start Date End Date Cassia Blanco Dr. PCP - General 09/08/24 10/05/24 documented as of this encounter
--- OUTSIDE RECORDS SUMMARY | 2024-11-05 14:51 | XMS_ITS | Encounter Summary ---
Author Organization [facility] Address [address] [place] [address] Care Team Providers Care Cryogenics Engineer Name Role Phone Maegan Bermeo MD Primary Care Provider [phone] Audra Wahl PARCEL POST ORDER CLERK Unavailable Unavailab Jessa Jimenez PARCEL POST ORDER CLERK Unavailable Unavailable Reason for Visit * Reason Comments Med Refill Encounter Details Date Type Department Care Team (Late st Contact Info) Description 10/11/2021 Refill Family and Community Medicine [address] [place] [address] Maegan Bermoe MD [address] [place] [address] Avitaminosis D Social History Tobacco [...] and sent to appropriate Health Dept. IPA Wharf Builder: Nimco Simms 10/26/2021 10/26/2021 022 10:27 AM EDT COVID 19 (Confirmed) 11/11/2021 11/11/2021 022 5:23 AM EDT COVID-19 Rule-Out 05/16/2022 05/16/2022 05/16/2022 11:05 PM EDT Assessment Noted Time A fall risk assessment has been complete d for the patient 10/11/2021 11:31 AM EDT documented as of this encounter Care Teams Cryogenics Engineer Relationship Specialty Start Date End Date Maegan Bermeo MD [facility] [place] [address] PCP - General Family Medicine 09/15/21 Audra Wahl LPN [employer] [place] [address] TCM Nurse 09/27/21 10/27/21 Jessa Park LPN VAL[employer] [place] [address] Registered Nurse 05/26/22 05/26/22 documented as of this encounter
--- OUTSIDE RECORDS SUMMARY | 2024-11-05 14:51 | XMS_ITS | Encounter Summary ---
Author Organization [facility] Address [address] [place] [address] Care Team Providers Care Field Secretary Name Role Phone System, Provider Not In Primary Care Provider Un available Reason for Visit * Reason Onset Date Comments Opsumit Approval 10/13/2024 Encounter Details Date Type Department Care Team (Late st Contact Info) Description 10/13/2024 Telephone [facility] - Pulmonology [address] [place] [address] Shikha Clayton MA Opsumit Approval Social History [...] with me as her insurance will not [id number] parties information. I have faxed them a copy of her approval. documented in this encounter Plan of Treatment Upcoming Encounters Date Type Department Care Team (Late st Contact Info) Description 11/19/2024 8:00 PM EDT Procedure Visit [facility] [address] [place] [address] 01/13/2025 2:20 PM EST Telemedicine [facility] Pulmonology [address] [address] Aubrey Chang MD [address] [place] [address], [address] [place] [address] 04/14/2025 2:20 PM EST Office Visit [facility] [address] [address] Aubrey Chang MD [address] [place] [address], [address] [place] [address] documented as of this encounter Visit Diagnoses Not on filedocumented in this encounter Care Teams Field Secretary Relationship Specialty Start Date End Date System, Provider Not In PCP - General 10/06/24 documented as of this encounter
--- OUTSIDE RECORDS SUMMARY | 2024-11-05 14:51 | XMS_ITS | Encounter Summary ---
Author Organization [facility] Address [address] [place] [address] Care Team Providers Care Shredder Tender Peat Name Role Phone System, Provider Not In Primary Care Provider Un available Reason for Visit * Reason Onset Date Comments Tadalafil Approval. 10/08/2024 Encounter Details Date Type Department Care Team (Late Contact Info) Description 10/08/2024 Telephone [facility] Pulmonology [address] [place] [address] Shikha Clayton MA Tadalafil Approval. Social History [...] Patients Tadalafil has been approved. Auth #: [id number] documented in this encounter Plan of Treatment Upcoming Encounters Date Type Department Care Team (Late Contact Info) Description 11/19/2024 8:00 PM EDT Procedure Visit [facility] [address] [place] [address] 01/13/2025 2:20 PM EST Telemedicine [facility] [address] [address] Aubrey Chang MD [address] [place] [address], [address] [place] [address] 04/14/2025 2:20 PM EST Office Visit [facility] [address] [address] Aubrey Chang MD [address] [place] [address], [address] [place] [address] documented as of this encounter Visit Diagnoses Not on filedocumented in this encounter Care Teams Shredder Tender Peat Relationship Specialty Start Date End Date System, Provider Not In PCP - General 10/06/24 documented as of this encounter
--- OUTSIDE RECORDS SUMMARY | 2024-11-05 14:52 | XMS_ITS | Encounter Summary ---
Author Organization [facility] Address [address] [place] [address] Care Team Providers Care Procurement Engineer Name Role Phone Phy, No Prim Dr Primary Care Provider Unavailabl e System, Provider Not In Primary Care Provider Un available Encounter Details Date Type Department Care Team (Late st Contact Info) Description 09/22/2024 Telephone [facility] [address] [facility]rd [place] [address] Phy, Unknown Social History Tobacco Use Types Packs/Day Years Used Date Smoking Tobacco: Never Assessed Depression Answer Date Recorded PHQ-2 Total Score 2 10/07/2024 Comments Unknown Sex and Gender Information Value Date Recorded Sex Assigned at Not on file Legal Sex Female 10:15 AM EDT Gender Identity Not on file Sexual Orientation Not on file documented as of this encounter Functional Status * Question Answer [...] Clayton MA documented as of this encounter Miscellaneous Notes * Telephone Encounter - Monique Olsen MA - 09/22/2024 11:58 AM EDT I have already spoken with Daughter and got her scheduled. * Telephone Encounter - Yoly Queen - 09/22/2024 10:20 AM EDT Patient daughter called in the patient needs to be seen for pulm hypertension hospital follow up within 2 to 4 weeks please call patient thanks documented in this encounter Plan of Treatment Upcoming Encounters Date Type Department Care Team (Late st Contact Info) Description 11/19/2024 8:00 PM EDT Procedure Visit [facility] [address] [facility] [address] [place] [address] 01/13/2025 2:20 PM EST Telemedicine [facility] [address] [address] Aubrey Chang MD [address] [place] [address] 04/14/2025 2:20 PM EST Office Visit [facility] [address] [address] Aubrey Chang MD [address] [place] [address] documented as of this encounter Visit Diagnoses Not on filedocumented in this encounter Care Teams Procurement Engineer Relationship Specialty Start Date End Date Cassia Blanco Dr. PCP - General 09/08/24 10/05/24 System, Provider Not In PCP - General 10/06/24 documented as of this encounter
--- OUTSIDE RECORDS SUMMARY | 2024-11-05 14:52 | XMS_ITS | Encounter Summary ---
Author Organization [facility] Address [address] [place] [address] Care Team Providers Care Concrete Pipe Machine Operator Name Role Phone Maegan Bermeo MD Primary Care Provider [phone] Encounter Details Date Type Department Care Team (Late st Contact Info) Description 07/03/2024 Orders Only External Location [address] [place] [id number] Provider, External Social History Tobacco Use Types [...] drink first t ken in the morning (EYE-AUTO SALVAGE WORKER) to steady your nerves or to [...] documented as of this encounter Care Teams Concrete Pipe Machine Operator Relationship Specialty Start Date End Date Maegan Bermeo MD [address] [place] [address] PCP - General Family Medicine 09/15/21 documented as of this encounter
--- OUTSIDE RECORDS SUMMARY | 2024-11-05 14:52 | XMS_ITS | Encounter Summary ---
Author Organization [facility] Address [address] [place] [address] Care Team Providers Care Firer Retort Name Role Phone Maegan Bermeo MD Primary Care Provider [phone] Encounter Details Date Type Department Care Team (Late st Contact Info) Description 07/08/2024 Orders Only External Location [address] [place] [id number] Provider, External Social History Tobacco Use Types [...] drink first t ken in the morning (EYE-WOOD MILL SUPERVISOR) to steady your nerves or to get [...] documented as of this encounter Care Teams Firer Retort Relationship Specialty Start Date End Date Maegan Bermeo MD [address] [place] [address] PCP - General Family Medicine 09/15/21 documented as of this encounter
--- OUTSIDE RECORDS SUMMARY | 2024-11-05 14:52 | XMS_ITS | Clinical Summary ---
Author Organization [facility] Address [address] [facility] [address] [place] [address] Care Team Providers Care Single Wire Saw Operator Name Role Phone System, Provider Not [...] the morning. 05/03/19 25 Active nystatin (Mycostatin) 298332 UNIT/GM powder Apply topically in the morning [...] but pain at time of arrival to [facility] PLAN: -pain control initially with p.r.n. Tylenol [...] Encounters Date Type Department Care Team Description 10/30/2024 Telephone [facility] [address] [address] Aubrey Chang MD 10/15/2024 Telephone [facility] [address] [address] Shikha Clayton MA Side Effects 10/13/2024 Telephone [facility] [address] [address] Shikha Clayton MA Opsumit Approval 10/08/2024 Telephone [facility] [address] [facility] [address] [place] [address] Shikha Clayton MA Tadalafil Approval. 10/08/2024 Telephone [facility] - Pulmonology [address] [facility] [address] [place] [address] Shikha Clayton MA Opsumit RX 10/07/2024 3:00 PM EDT Office Visit [facility] - Pulmonology [address] [address] Aubrey Chang MD Pulmonary hypertension, not otherwise specified (Primary Dx); Obstructive sleep apnea syndrome 10/07/2024 2:40 PM EDT Procedure Visit [facility] - Pulmonology [address] [address] Pulmonary hypertension 10/07/2024 2:00 PM EDT Procedure Visit [facility] Pulmonology [address] [address] Pulmonary hypertension 10/06/2024 2:00 PM EDT Office Visit [facility] - [facility] [address] [facility] [address] [place] [address] Abisai Booth MD Tricuspid incompetence, non-rheumatic (Primary Dx); Shortness of breath; Heart valve disorder 10/06/2024 Travel 09/30/2024 Telephone [facility] Sleep [facility] [address] [address] Cheko Garza MD Appointment; Forms/questionnaire s (Night tech questions) 09/30/2024 Telephone [facility] [address] [address] Cheko Garza MD Appointment 09/29/2024 Orders Only [facility] - Pulmonology [address] [facility] 6[address] [place] [address] Pcp, None 09/22/2024 Orders Only [facility] - Pulmonology [address] [address] Satterly, Dov, LOFT WORKER APPRENTICE Pulmonary hypertension (Primary Dx) 09/22/2024 Telephone [facility] [address] [facility] 6[address] [place] [address] Olga Lidia Dahl, LOFT WORKER APPRENTICE Hospital f/u Appt Request 09/22/2024 Telephone [facility] [address] [facility], 3rd [place] [address] Phy, Unknown 09/22/2024 Telephone [facility] [address] [facility] [address] [place] [address] Stefanie Graves RN Hospital Follow Up 09/19/2024 Orders Only [facility] [address] [facility] [address] [place], [place] [id number] Thomas Hoffmann MD Pulmonary hypertension, not otherwise [...] [facility] [address] [facility] [address] [facility] [address] [place] [address] 01/13/2025 2:20 PM EST Telemedicine [facility] [address] [facility] [address] [place] [address] Aubrey Chang MD [address] [place] [address], [address] [address] 04/14/2025 2:20 PM EST Office Visit [facility] [address] [address] Aubrey Chang MD [address] [place] [address], [address] [place] [address] Health Maintenance Due Date Last Done Comments [...] 08/29/2022 023, 03/01/2022, 10/26/2021, Additional history exists Fall Risk Screening 02/20/2024 SDOH Screening 02/20/2024 COVID-19 Vaccine ( season) 2024 01/05/2022, 01/07/2021, 06/11/2020, Additional history exists Influenza Vaccine (#1) 2024 , 01/07/2020, 12/24/2017 Diabetes: Urine Protein Screening 10/23/2025 10/23/2024, 10/06/2024 Pneumococcal Vaccine: 50+ Years Completed 09/19/2024 BMI [...] Laterality Modality Ultrasound 09/17/2024 2:47 PM EDT Abisai Booth MD CV ECHO PROCEDURES Final [...] Modality Ultrasound 09/16/2024 10:1 4 AM EDT us Jonny Zamora MD CV ECHO PROCEDURES Fi nal Result * Cardiology Scanned Result (09/16/2024) Anatomical Region Laterality Modality Other Narrative 09/16/2024 Ordered by an unspecified provider. us Provider Not In System CV STRESS PROCEDURES Chantale l Result from Last 3 Months Insurance MEDICARE [facility] Care Teams Single Wire Saw Operator Relationship Specialty Start Date End Date System, Provider Not In PCP - General 10/06/24
--- OUTSIDE RECORDS SUMMARY | 2024-11-05 14:52 | XMS_ITS | Encounter Summary ---
Author Organization [facility] Address [address] [place] [address] Care Team Providers Care Media Job Titles Name Role Phone Jan Castelan MD Primary Care Provider [phone] Benjie Quezada MD Primary Care Provider Tamika Loomis APRN Primary Care Provider [phone] Maegan Bermeo MD Primary Care Provider [phone] Audra Wahl PACKAGE DYER Unavailable Unavailab Jessa Jimenez PACKAGE DYER Unavailable Unavailable Reason for Visit * Reason Comments Med Refill Encounter Details Date Type Department Care Team (Late st Contact Info) Description 12/28/2020 Refill Family and Community Medicine [address] [place] [address] Jan Castelan MD [address] [place] [address] Social History Tobacco Use Types [...] not immunocompromised. Team aware. EVS notified. [facility] has verified patient has a COVID-19 positive result. A chart review has been completed, EPI PUI has been completed and sent to appropriate Health Dept. [facility] Contract Agent: Nimco Demi 10/26/2021 10/26/2021 022 10:27 AM EDT COVID 19 (Confirmed) 11/11/2021 11/11/2021 022 5:23 AM EDT COVID-19 Rule-Out 05/16/2022 05/16/2022 05/16/2022 11:05 PM EDT documented as of this encounter Care Teams Media Job Titles Relationship Specialty Start Date End Date Jan Castelan MD [address] [place] [address] PCP - General 07/02/20 08/07/21 Benjie Quezada MD [address] [facility] [address] [place] [address] PCP - General Family Medicine 08/08/21 08/30/21 Tamika Loomis APRN [address] [facility] [address] [place] [address] PCP - General Family Medicine 08/31/21 09/14/21 Maegan Bermeo MD [address] [place] [address] PCP - General Family Medicine 09/15/21 Audra Wahl LPN [employer] [place] [address] TCM Nurse 09/27/21 10/27/21 Jessa Park LPN [employer] [place] [address] Registered Nurse 05/26/22 05/26/22 documented as of this encounter
--- OUTSIDE RECORDS SUMMARY | 2024-11-05 14:52 | XMS_ITS | Encounter Summary ---
Author Organization [facility] Address [address] [place] [address] Care Team Providers Care Wheel Polisher Name Role Phone Jan Castelan MD Primary Care Provider [phone] Benjie Quezada MD Primary Care Provider Tamika Loomis APRN Primary Care Provider [phone] Maegan Bermeo MD Primary Care Provider [phone] Audra Wahl SERVICE DESK TECHNICIAN Unavailable Unavailab Jessa Jimenez SERVICE DESK TECHNICIAN Unavailable Unavailable Reason for Visit * Reason Comments Med Refill Encounter Details Date Type Department Care Team (Late st Contact Info) Description 02/22/2021 Refill Family and Community Medicine [address] [place] [address] Jan Castelan MD [address] [place] [address] Uncontrolled type 2 diabetes mellitus with hyperglycemia ([facility]) Social History Tobacco Use Types Packs/Day Years [...] and sent to appropriate Health Dept. IPAC Regional Production Manager: Nimco Simms 10/26/2021 10/26/2021 022 10:27 AM EDT COVID 19 (Confirmed) 11/11/2021 11/11/2021 022 5:23 AM EDT COVID-19 Rule-Out 05/16/2022 05/16/2022 05/16/2022 11:05 PM EDT documented as of this encounter Care Teams Wheel Polisher Relationship Specialty Start Date End Date Jan Castelan MD [address] [place] [address] PCP - General 07/02/20 08/07/21 Benjie Quezada MD [address] [facility] [address] [place] [address] PCP - General Family Medicine 08/08/21 08/30/21 Tamika Loomis APRN [address] [place] [address] PCP - General Family Medicine 08/31/21 09/14/21 Maegan Bermeo MD [address] [place] [address] PCP - General Family Medicine 09/15/21 Audra Wahl LPN VALUE[employer]ED [place] [address] TCM Nurse 09/27/21 10/27/21 Jessa Park LPN VALUE-BASED [place] [address] Registered Nurse 05/26/22 05/26/22 documented as of this encounter
--- OUTSIDE RECORDS SUMMARY | 2024-11-05 14:52 | XMS_ITS | Encounter Summary ---
Author Organization [facility] Address [address] [place] [address] Care Team Providers Care Route Rider Supervisor Name Role Phone Cassia Blanco Dr Primary Care Provider Unavailabl e Reason for Visit * Reason Onset Date Comments Hospital f/u Appt Request 09/22/2024 Encounter Details Date Type Department Care Team (Late st Contact Info) Description 09/22/2024 Telephone [facility] Pulmon[facility] [address] [place], [place] [id number] Olga Lidia Dahl, TELECOMMUNICATIONS SWITCH TECHNICIAN Hospital f/u Appt Request Social History Tobacco [...] Dr. Barnett Referring Provider: Dr. Sutton @ [facility] Office Phone: Office Fax: Diagnosis: Severe Pre-Capillary PH How was disease diagnosed? Patient presented to [facility] with shortness of air and volume overload. Reported at that time to have periodic shortness of air for several years with the last 1 year having worsened. She reported being severely limited in activity due to her symptoms. [facility] she [facility]. During this stay, patient underwent RHC [...] [facility] [address] [facility] [address] [place] [address] 01/13/2025 2:20 PM EST Telemedicine [facility] [address] [facility] [address] [place] [address] Aubrey Chang MD [address] [place] [address], [address] [place] [address] 04/14/2025 2:20 PM EST Office Visit [facility] [address] [address] Aubrey Chang MD [address] [place] [address], [address] [place] [address] documented as of this encounter Visit Diagnoses Not on filedocumented in this encounter Care Teams Route Rider Supervisor Relationship Specialty Start Date End Date Cassia Blanco Dr. PCP - General 09/08/24 10/05/24 documented as of this encounter
--- OUTSIDE RECORDS SUMMARY | 2024-11-05 14:52 | XMS_ITS | Encounter Summary ---
Author Organization [facility] Address [address] [place] [address] Care Team Providers Care Member Of Parliament Name Role Phone Maegan Bermeo MD Primary Care Provider [phone] Encounter Details Date Type Department Care Team (Late st Contact Info) Description 03/11/2024 Orders Only External Location [address] [place] [phone] Provider, External Social History Tobacco Use Types [...] drink first t ken in the morning (EYE-NUCLEAR POWERPLANT MECHANIC) to steady your nerves or to [...] documented as of this encounter Care Teams Member Of Parliament Relationship Specialty Start Date End Date Maegan Bermeo MD [address] [place] [address] PCP - General Family Medicine 09/15/21 documented as of this encounter
--- OUTSIDE RECORDS SUMMARY | 2024-11-05 14:52 | XMS_ITS | Encounter Summary ---
Author Organization [facility] Address [address] [place] [address] Care Team Providers Care Terrazzo Laborer Name Role Phone System, Provider Not In Primary Care Provider Un available Encounter Details Date Type Department Care Team (Late st Contact Info) Description 10/30/2024 Telephone [facility] [address] [facility] [address] [place] [address] Aubrey Chang MD [address] [place] [address], [address] [place] [address] Social History Tobacco Use Types Packs/Day Years [...] Notes * Telephone Encounter - Monique Olsen GARRY - 10/30/2024 1:51 PM EDT Called and spoke with patient daughter she is states that she stopped the Opsumit because it ended her in the ED and she almost from the S/E. I asked her what they was cause we had nausea and dizziness as the S/E. She states she had those along with weakness and she actual passed out. She went to [facility] I have called over to get the records and they are going to be faxing them over to us. Daughter states they started her back up on the Opsumit and she's been on it for about 7 days not with the same S/E. Daughter states she does not believe taking this medication is even worth it. I am reaching out to Dr. Chang to speak to him about this concern. Will reach back out to patient/daughter once I speak with Charlene. documented in this encounter Plan of Treatment Upcoming Encounters Date Type Department Care Team (Late st Contact Info) Description 11/19/2024 8:00 PM EDT Procedure Visit [facility] [address] [facility] [address] [facility] [address] [place] [address] 01/13/2025 2:20 PM EST Telemedicine [facility] [address] [facility] [address] [place] [address] Aubrey Chang MD [address] [place] [address], [address] [address] 04/14/2025 2:20 PM EST Office Visit [facility] [address] [address] Aubrey Chang MD [address] [place] [address], [address] [place] [address] documented as of this encounter Visit Diagnoses Not on filedocumented in this encounter Care Teams Terrazzo Laborer Relationship Specialty Start Date End Date System, Provider Not In PCP - General 10/06/24 documented as of this encounter
--- OUTSIDE RECORDS SUMMARY | 2024-11-05 14:52 | XMS_ITS | Encounter Summary ---
Author Organization Healthcare Address [address] [place] [address] Care Team Providers Care Manager Of Customer Billing Name Role Phone Tyler Castelan MD Primary Care Provider [phone] Benjie Quezada MD Primary Care Provider Tamika Loomis APRN Primary Care Provider [phone] Maegan eBrmeo MD Primary Care Provider [phone] Audra Wahl DENTAL TECH Unavailable Unavailab Jessa Jimenez DENTAL TECH Unavailable Unavailable Encounter Details Date Type Department Care Team (Late st Contact Info) Description 06/28/2021 Outside Procedure External Location [address] [place] [phone] Tyler Castelan MD [address] [place] [address] Social History Tobacco Use Types [...] PM EDT Narrative 06/28/2021 4:35 [place] [address] Name: RICA FLANNERY Exam Date: 06/28/2021 : 1955 Age 65 Gender: F Physician: TYLER CASTELAN Facility: [facility] Facility HSV: Outpatient Exam: VENOUS DUPLEX [...] you for referring RICA FLANNERY to [facility]. Legally authenticated by KWAME HARGROVE 2021-06-28 16:23:11 Procedure Note Provider, [facility] - 06/28/2021 [facility] [address] [place] [address] Name: RICA FLANNERY Exam Date: 06/28/2021 : 1955 Age 65 Gender: F Physician: TYLER CASTELAN Facility: [facility] Facility HSV: Outpatient Exam: VENOUS DUPLEX [...] you for referring RICA FLANNERY to [facility]. Legally authenticated by KWAME HARGROVE 2021-06-28 16:23:11 [...] and sent to appropriate Health Dept. IPAC Chief Of Service: Nimco Simms 10/26/2021 10/26/2021 022 10:27 AM EDT COVID 19 (Confirmed) 11/11/2021 11/11/2021 022 5:23 AM EDT COVID-19 Rule-Out 05/16/2022 05/16/2022 05/16/2022 11:05 PM EDT Assessment Noted Time A fall risk assessment has been complete d for the patient 06/28/2021 10:46 AM EDT documented as of this encounter Care Teams Manager Of Customer Billing Relationship Specialty Start Date End Date Tyler Castelan MD [address] [place] [address] PCP - General 07/02/20 08/07/21 Benjie Quezada MD [address] [facility] [address] [place] [address] PCP - General Family Medicine 08/08/21 08/30/21 Tamika Loomis, FISHERIES TECHNICIAN [address] [place] [phone] PCP - General Family Medicine 08/31/21 09/14/21 Maegan Bermeo MD [address] [place] [address] PCP - General Family Medicine 09/15/21 Audra Wahl LPN [employer] [place] [address] TCM Nurse 09/27/21 10/27/21 Jessa Park LPN [employer] [place] [address] Registered Nurse 05/26/22 05/26/22 documented as of this encounter
--- OUTSIDE RECORDS SUMMARY | 2024-11-05 14:52 | XMS_ITS | Clinical Summary ---
Author Organization [facility] Address [address] [place] [address] Care Team Providers Care Barrel Lathe Operator Inside Name Role Phone Maegan Bermeo MD Primary Care Provider [phone] Allergies Active Allergy Reactions Criticality Noted Date [...] is elevated above patient's baseline of around 4423-9260 -most recent echo obtained in October 2021 [...] but pain at time of arrival to [facility] PLAN: -pain control initially with [...] Description 09/15/2024 10:40 AM EDT Office Visit [facility] [address] [place] [address] D, [address] [place] [phone] Raimundo Hatch, DPM Ulcer of toe of left foot, with fat layer exposed (CMS/HCC) (Primary Dx); Diabetic neuropathy with neurologic complication (CMS/HCC); Corns and callosities; Nail dystrophy 09/15/2024 Travel 08/18/2024 9:20 AM EDT Office Visit [facility] [address] [place] [address] D, [address] [address] Raimundo Hatch, DPM Hammer toe, acquired (Primary Dx) 08/18/2024 Travel 08/11/2024 8:20 AM EDT Office Visit [facility] [address] [place] [address], [address] [address] Raimundo Hatch, DPM Ulcer of toe of left foot, with fat layer exposed (CMS/HCC) (Primary Dx); Diabetic neuropathy with neurologic complication (CMS/HCC); Hammer toe, acquired 08/11/2024 Travel from Last 3 Months Immunizations Immunization Administration [...] drink first t ken in the morning (EYE-MAILING JOGGER) to steady your nerves or to get [...] Additional history exists [facility]-Depression Screening 06/08/2023 06/07/2022 [id number] Vaccine ( season) 2024 01/05/2022, 01/07/2021, 06/11/2020, Additional history exists [facility]-Influenza [...] Recently Relevant to Health Maintenance Results * CT DEBRIDEMENT, SKIN, SUB-Q TISSUE,=<20 [...] provider verified the correct patient, procedure, equipment, office support, and site/side marked as required. Debridement [...] 5.5 <5.7 % 03/01/2022 1:22 PM EST [facility] Blood Venous blood specimen / [...] Adults <6.0% Children and Adolescents <7.5% Source: [place] [employer]. Standards of medical care in diabetes,2017. Diabetes Care.2017:40 (suppl 1):S1-S135. HbA1c assay performed by an ion-exchange chromatography method that is certified traceable to the DCCT. us Maegan Bermeo MD LAB BLOOD ORDERABLES Final Re sult [facility] [address] [place] [address] * Hepatitis C Antibody - ED (09/24/2021 7:52 AM EDT) Hepatitis C Antibody Negative Negative 09/24/2021 9:51 AM EDT [facility] Blood Venous blood specimen / Unknown Venipuncture / Unknown 09/24/2021 7:52 AM EDT 09/24/2021 8:10 AM EDT Farida Sharif MD LAB BLOOD ORDERABLES Final Res ult [facility] [address] [place] [address] * MAMMOGRAPHY EXTERNAL RESULTS (01/20/2019) Anatomical Region Laterality Modality Mammography Narrative 01/20/2019 Ordered by an unspecified provider. External Provider IMG BI PROCEDURES Final Result * (ABNORMAL) Cologuard (02/16/2018 8:42 AM EST) Pathologist [facility] Cologuard Positive(Y) [employer] 02/16/2018 8:42 AM EST Historical Provider LAB MOLECULAR DIAGNOSTICS OR DERABLES Final Result [employer] from Last 3 Months or Most Recently Relevant to Health Maintenance Insurance MEDICARE [facility] Advance Directives * DNR/DNI (Latest [...] Patient has decision-making capacity? Yes Care Teams Barrel Lathe Operator Inside Relationship Specialty Start Date End Date Maegan Bermeo MD [address] [place] [phone] PCP - General Family Medicine 09/15/21
--- OUTSIDE RECORDS SUMMARY | 2024-11-05 14:52 | XMS_ITS | Encounter Summary ---
Author Organization Healthcare Address [address] [place] [address] Care Team Providers Care Computer Support Technician Name Role Phone Maegan Bermeo MD Primary Care Provider [phone] Jessa Park LPN Unavailable Unavailable Reason for Visit * Reason Comments Med Refill Encounter Details Date Type Department Care Team (Late st Contact Info) Description 11/26/2021 Refill Family and Community Medicine [address] [place] [address] Benjie Quezada MD [address] [place] [address] Social History Tobacco Use Types [...] as of this encounter Care Teams Computer Support Technician Relationship Specialty Start Date End Date Maegan Bermeo MD [address] [place] [phone] PCP - General Family Medicine 09/15/21 Jessa Park LPN [employer] [place] [address] Registered Nurse 05/26/22 05/26/22 documented as of this encounter
--- OUTSIDE RECORDS SUMMARY | 2024-11-05 14:52 | XMS_ITS | Encounter Summary ---
Author Organization [facility] Address [address] [facility] [address] [place] [address] Care Team Providers Care Learning Support Aide Name Role Phone Cassia [place] [address] Primary Care Provider Unavailabl e Reason for Referral * Consultation (Routine) - Authorized Specialty Diagnoses / Procedures Referred By Contac t Referred To Contact Sleep Medicine Diagnoses Obstructive sleep apnea Procedures Polysomnography Abisai Booth MD [address] [facility] [address] [place] [address] Phone: tel: fax: [facility] - Sleep Center [address] [facility] [address] [place] [address] Phone: tel: fax: Referral ID Status Reason Start Date Expiration Date V isits Requested Visits Authorized [id number] Authorized 09/19/2024 10/19/2025 1 1 Encounter Details Date Type Department Care Team (Late st Contact Info) Description 09/19/2024 Orders Only [facility] - Cardiovascular Medicine [address] [facility] [address] [place] [address] Thomas Hoffmann MD [address] [place] [address] Pulmonary hypertension, not otherwise specified [...] - Sleep Center [address] [facility] [address] [place] [address] 01/13/2025 2:20 PM EST Telemedicine [facility] - Pulmonology [address] [facility] [address] [place] [address] Aubrey Chang MD [address] [place] [phone] 04/14/2025 2:20 PM EST Office Visit [facility] - Pulmonology [address] [address] Aubrey Chang MD [address] [place] [phone] Scheduled Orders Name Type Priority Associated Diagnoses Orde r Schedule Polysomnography Sleep Center Routine Obstructive sleep apnea Expected: 09/19/2024 (Approximate), Expires: 09/19/2025 documented as of this encounter Visit Diagnoses Diagnosis Pulmonary hypertension, not otherwise specified- Primary Obstructive sleep apnea documented in this encounter Care Teams Learning Support Aide Relationship Specialty Start Date End Date Cassia [place] Dr. PCP - General 09/08/24 10/05/24 documented as of this encounter
--- OUTSIDE RECORDS SUMMARY | 2024-11-05 14:52 | XMS_ITS | Encounter Summary ---
Author Organization Healthcare Address [address] [place] [address] Care Team Providers Care Patternmaker Wood Name Role Phone Maegan Bermeo MD Primary Care Provider [phone] Encounter Details Date Type Department Care Team (Late st Contact Info) Description 07/10/2024 Orders Only External Location [address] [place] [phone] Provider, External Social History Tobacco Use Types [...] drink first t ken in the morning (EYE-RIM BUSTER) to steady your nerves or to get [...] documented as of this encounter Care Teams Patternmaker Wood Relationship Specialty Start Date End Date Maegan Bermeo MD [address] [place] [address] PCP - General Family Medicine 09/15/21 documented as of this encounter
--- OUTSIDE RECORDS SUMMARY | 2024-11-05 14:52 | XMS_ITS | Encounter Summary ---
Author Organization [facility] Address [address] [facility] [address] [place] [address] Care Team Providers Care Cementer Machine Applicator Name Role Phone Cassia [place] [address] Primary Care Provider Unavailabl e Reason for Referral * Consultation (Routine) - Closed Specialty Diagnoses / Procedures Referred By Contac t Referred To Contact Pulmonology Diagnoses Pulmonary hypertension Procedures Six Minute Walk Test Aubrey Chang MD [address] [facility] [place] [address] Phone: tel: fax: [facility] - Pulmonology [facility] [address] [address] Phone: tel: fax: Referral ID Status Reason Start Date Expiration Date V isits Requested Visits Authorized [id number] Closed Specialty Services Required 09/22/2024 10/22/2025 1 1 * Consultation (Routine) - Closed Specialty Diagnoses / Procedures Referred By Contac t Referred To Contact Pulmonology Diagnoses Pulmonary hypertension Procedures Pulmonary function test Aubrey Chang MD [address] [facility] [place] [address] Phone: tel: fax: [facility] [address] [address] Phone: tel: fax: Referral ID Status Reason Start Date Expiration Date V isits Requested Visits Authorized [id number] Closed Specialty Services Required 09/22/2024 10/22/2025 1 1 Encounter Details Date Type Department Care Team (Late st Contact Info) Description 09/22/2024 Orders Only [facility] - Pulmonology [address] [facility] [address] [place] [address] Dov Lopez, ANGIOGRAPHER Pulmonary hypertension (Primary Dx) Social History Tobacco [...] Physicians - Sleep Center [address] [facility] [address] [place] [address] 01/13/2025 2:20 PM EST Telemedicine [facility] - Pulmonology [address] [facility] [address] [place] [address] Aubrey Chang MD [address] [place] [address], [address] [place] [phone] 04/14/2025 2:20 PM EST Office Visit [facility] - Pulmonology [address] [address] Aubrey Chang MD [address] [place] [address], [address] [place] [phone] documented as of this encounter Results * [...] Primary documented in this encounter Care Teams Cementer Machine Applicator Relationship Specialty Start Date End Date Francis, Cassia Mcnamara Dr. PCP - General 09/08/24 10/05/24 documented as of this encounter
--- OUTSIDE RECORDS SUMMARY | 2024-11-05 14:52 | XMS_ITS | Encounter Summary ---
Author Organization [facility] Address [address] [facility] [address] [place] [address] Care Team Providers Care Utility Sales Representative Name Role Phone Cassia [place] [address] Primary Care Provider Unavailabl e Reason for Visit * Reason Onset Date Comments Appointment 09/30/2024 Forms/questionnaires 09/30/2024 Night tech questions Encounter Details Date Type Department Care Team (Late st Contact Info) Description 09/30/2024 Telephone [facility] [address] [facility] [address] [facility] [address] [place] [address] Cheko Garza MD [address] [facility] [place] [phone] Appointment; Forms/questionnaires (Night tech questions) Social History [...] sure one finger is free of nail portuguese, acrylic, gel etc. For finger sensor at time of study. documented in this encounter Plan of Treatment Upcoming Encounters Date Type Department Care Team (Late st Contact Info) Description 11/19/2024 8:00 PM EDT Procedure Visit [facility] - Sleep Center [address] [facility] [address] [place] [address] 01/13/2025 2:20 PM EST [facility] [address] [facility] [address] [place] [address] Aubrey Chang MD [address] [place] [address], [address] [phone] 04/14/2025 2:20 PM EST Office Visit [facility] - Pulmonology [address] [address] Aubrey Chang MD [address] [place] [address], [address] [phone] documented as of this encounter Visit Diagnoses Not on filedocumented in this encounter Care Teams Utility Sales Representative Relationship Specialty Start Date End Date Cassia [place] Dr. PCP - General 09/08/24 10/05/24 documented as of this encounter
--- OUTSIDE RECORDS SUMMARY | 2024-11-05 14:52 | XMS_ITS | Clinical Summary ---
Author Organization [facility] Address [address] [place] [address] Care Team Providers Care Ice Plant Operator Name Role Phone Unavailable Primary Care Provider [...] Screening 02/20/2024 Influenza Vaccine (#1) 2024 12/24/2017 RSV 50+ and (1 - 1 -dose 75+ series) 2028 Pneumococcal Vaccines >50 yo Completed 09/19/2024 Haemophilus [...]
--- OUTSIDE RECORDS SUMMARY | 2024-11-05 14:52 | XMS_ITS | Encounter Summary ---
Author Organization [facility] Address [address] [place] [address] Care Team Providers Care Banquet Prep Cook Name Role Phone Cassia [place] Dr Primary Care Provider Unavailabl e Reason for Visit * Reason Onset Date Comments Hospital Follow Up 09/22/2024 Encounter Details Date Type Department Care Team ([facility] st Contact Info) Description 09/22/2024 Telephone [facility] Administrative Services [address] [facility] [address] [place] [address] Stefanie Graves RN Hospital Follow Up Social [...] 1955 Date of Discharge: 09/19/2024 Facility Discharged: [facility] Diagnosis at time of Discharge: Severe pulmonary hypertension Cor pulmonale Severe TR Date of Call: 09/23/2024 Date of [facility] Face-to Face Visit: Call Status Call Status: Completed General Clinical How are you feeling now?: Spoke with pt.'s daughter, Marisol. Marisol reports some confusion withwhere prescriptions were sent at d/c as prescriptions were sent to both [facility] and [facility]. Marisol ststes she has addressed [...] [facility] - Sleep Center [address] [facility] [address] [place] [address] 01/13/2025 2:20 PM EST Telemedicine [facility] - Pulmonology [address] [address] Aubrey Chang MD [address] [place] [phone] 04/14/2025 2:20 PM EST Office Visit [facility] - Pulmonology [address] [address] Aubrey Chang MD [address] [place] [phone] documented as of this encounter Visit Diagnoses Not on filedocumented in this encounter Care Teams Banquet Prep Cook Relationship Specialty Start Date End Date Cassia [place] Dr. PCP - General 09/08/24 10/05/24 documented as of this encounter
--- OUTSIDE RECORDS SUMMARY | 2024-11-05 14:52 | XMS_ITS | Encounter Summary ---
Author Organization [facility] Address [address] [place] [address] Care Team Providers Care Hot Die Picker Name Role Phone Cassia [place] [address] Primary Care Provider Unavailabl e Reason for Visit * Reason Onset Date Comments Appointment 09/30/2024 Encounter Details Date Type Department Care Team ([facility] Contact Info) Description 09/30/2024 Telephone [facility] [address] [facility] [address] [place] [address] Cheko Garza MD [address] [facility] [place] [phone] Appointment Social History Tobacco Use Types Packs/Day [...] left voice mail to return call to [phone]. documented in this encounter Plan of Treatment Upcoming Encounters Date Type Department Care Team (Late Contact Info) Description 11/19/2024 8:00 PM EDT [facility] [address] [facility] [address] [place] [address] 01/13/2025 2:20 PM EST Telemedicine [facility] - Pulmonology [address] [address] Aubrey Chang MD [address] [place] [address], [address] [phone] 04/14/2025 2:20 PM EST Office Visit [facility] - Pulmonology [address] [address] Aubrey Chang MD [address] [place] [address], [address] [phone] documented as of this encounter Visit Diagnoses Not on filedocumented in this encounter Care Teams Hot Die Picker Relationship Specialty Start Date End Date Cassia [place] Dr. PCP - General 09/08/24 10/05/24 documented as of this encounter
[2024-11-05 14:58] LABS: Coronavirus 19, PCR Not Detected (NotDetected); Influenza A, PCR Not Detected (NotDetected); Influenza B, PCR Not Detected (NotDetected)
[2024-11-05 14:58] LABS: Alanine Aminotransferase 32 U/L (12-78); Albumin Level 3.7 g/dl (3.5-5.0); Albumin/Globulin Ratio 1.0 (1.1-1.8); Alkaline Phosphatase 243 U/L (38-126); Anion Gap 9.0 mEq/L (5-15); Aspartate Amino Transferase 37 U/L (14-36); Bilirubin,Total 0.8 mg/dl (0.2-1.3); Blood Urea Nitrogen 23 mg/dl (7-17); Calcium 8.5 mg/dl (8.4-10.2); Carbon Dioxide 32 mmol/L (22.0-30.0); Chloride 97 mmol/L (98-107); Creatinine Clearance Estimated 83 mL/min (50-200); Creatinine,Serum 1.00 mg/dl (0.52-1.04); Estimated Glomerular Filt Rate 55 ml/min (>60); GFR (African American) 66 ML/MIN (>60); Globulin 3.8 g/dL (1.3-3.2); Glucose 182 mg/dl (74-100); Magnesium 1.7 mg/dl (1.6-2.3); Potassium 4.0 mmoL/L (3.5-5.1); Sodium 134 mmol/L (136-145); Total Protein,Serum 7.5 g/dl (6.3-8.2)
--- NOTE | 2024-11-05 15:05 | ECG_ITS ---
APPROVED REPORT Exam: Resting ECG HR:90 bpm ECG Measurements Heart Rate 90 AXES QRSd 97 QRS 54 QT 331 T 262 QTc 379 Conclusion ATRIAL FIBRILLATION LOW QRS VOLTAGE IN PRECORDIAL LEADS [QRS DEFLECTION < 1.0 mV IN CHEST LEADS] ST DEVIATION AND MODERATE T-WAVE ABNORMALITY, CONSIDER INFERIOR ISCHEMIA [-0.1+ mV T-WAVE IN II/aVF] ABNORMAL ECG UNCONFIRMED REPORT Electronically signed by : MEY LAURENT, 11/06/2024 06:39:37
[2024-11-05 15:08] LABS: RBC Morphology Normal; Total Cells Counted 100
[2024-11-05 15:09] LABS: NT Pro Brain Natriuretic Pep. 5850 pg/mL (0-125); Troponin I 0.02 ng/ml (0.00-0.034)
[2024-11-05] MEDS: PIPERACILLIN/TAZO 3.375 GM in 0.9 % SODIUM CHLORIDE 50 ML IV (15:30)
[2024-11-05] MEDS: IPRATROPIUM/ALBUTEROL 3 ML NEB IH (15:32)
[2024-11-05] MEDS: VANCOMYCIN CONSULT REQUEST 1 EACH NOTAPPLIC (15:45)
[2024-11-05 15:52] LABS: Microscopic, Urine URINE MICROSCOPIC (MICROSCOPIC)
[2024-11-05 15:56] LABS: Bilirubin,Urine Negative (Negative); Color,Urine YELLOW (Yellow); Glucose,Urine (UA) Negative (Negative); Ketones,Urine Negative (Negative); Leukocyte Esterase,Urine Negative (Negative); PH,Urine 5.5 (5.0-8.5); Protein,Urine Negative (Negative); Specific Gravity, Urine 1.020 (1.005-1.030); Urobilinogen,Urine 0.2 EU/dl (0.2)
--- NOTE | 2024-11-05 16:05 | CT_ITS ---
PROCEDURE INFORMATION: Exam: CTA Chest With Contrast Exam date and time: 11/05/2024 5:34 PM Age: 69 years old Clinical indication: Shortness of breath; Additional info: SOA TECHNIQUE: Imaging protocol: Computed tomographic angiography of the chest with contrast. Exam focused on the arteries. 3D rendering (Not supervised by radiologist): MIP and/or 3D reconstructed images were created by the technologist. Radiation optimization: All CT scans at this facility use at least one of these dose optimization techniques: automated exposure control; mA and/or kV adjustment per patient size (includes targeted exams where dose is matched to clinical indication); or iterative reconstruction. Contrast material: ISOUVE 370; Contrast volume: 70 ml; Contrast route: INTRAVENOUS (IV); COMPARISON: CT ANGIO CHEST PE PROTOCOL 09/04/2024 6:59 AM FINDINGS: Pulmonary arteries: Evaluation of the pulmonary arteries is limited to the segmental proximal arterial level due to poor bolus timing. Enlarged pulmonary arteries likely represent chronic pulmonary arterial hypertension. Aorta: The aorta demonstrates severe atherosclerotic disease. Lungs: Moderate scarring and atelectasis in the lower lungs. The trachea and right mainstem bronchus are significantly effaced, different from prior study and possibly related to phase of inspiration/expiration. Pleural spaces: Unremarkable. No pneumothorax. No pleural effusion. Heart: Reflux of contrast into the hepatic veins suggests right heart dysfunction. Cardiomegaly. Mitral and aortic valve calcifications. Coronary arteries: Coronary artery calcifications. Lymph nodes: Unremarkable. No enlarged lymph nodes. Liver: Morphologic changes of cirrhosis. Bones/joints: Chronic T12/L1 fractures. Soft tissues: Unremarkable. IMPRESSION: 1. Evaluation of the pulmonary arteries is limited to the segmental proximal arterial level due to poor bolus timing. Within the limitations of the study, no pulmonary emboli. 2. The trachea and right mainstem bronchus are significantly effaced, different from prior study and possibly related to phase of inspiration/expiration. This is suggestive of tracheomalacia/bronchomalacia.
[2024-11-05 16:25] LABS: Bacteria,Urine 2+ /lpf; Squamous Epithelial Cell,Urine 20-50 #/hpf (0-5)
[2024-11-05] MEDS: VANCOMYCIN/WATER FOR INJ (PEG) 1.5 GM/300 ML PIGGYBACK IV (16:46)
[2024-11-05 16:50] VITALS: BP 120/60; PULSE 84; RESP 20; O2SAT 100
[2024-11-05 17:00] VITALS: BP 117/68; PULSE 86; RESP 17; O2SAT 98
--- NOTE | 2024-11-05 17:22 | PC.NURSE ---
called house for admission at this time.
--- NOTE | 2024-11-05 17:27 | EXP.HP ---
History of Present Illness *Admission Date: 11/05/24 *Reason for visit:: dyspnea, leg swelling, wt gain *History of present illness: Mrs. Flannery is a 69-year-old female with a medical history significant for severe right heart failure/cor pulmonale from pulmonary hypertension, asplenia, paroxysmal A-fib, CAD, type 2 diabetes, anxiety/depression, GERD who presented from [facility] with increased swelling in her legs, weight gain of at least 20 pounds over the past 2 weeks, and worsening rhonchorous cough along with new oxygen requirement. Patient was discharged from our hospital approximately 2 weeks ago to finish treatment for MRSA pneumonia after being diuresed and on pressors in the ICU to assist with diuresis due to her heart failure, pulmonary hypertension, cor pulmonale. She was on room air at that time. Needed rehab to get stronger. Was tolerating diuretics and Opsumit for her Pulmonary hypertension. Per her daughter, she was doing well for the first week working with rehab. They made some adjustments to her meds however because of her soft blood pressures which led to her starting to gain weight and have increased shortness of breath and cough starting approximately the past weekend. Denies fever, nausea or vomiting. Cough rhonchorous but not coughing anything up. Denies chest pain. Does complain of leg swelling and pain in her legs. Legs are tight and shiny. Initial labs show BNP of 5800, down from 15,000 on 10/21. White count 11.2 which is consistent with her discharge level. Hemoglobin 8.2 consistent with her known anemia from iron deficiency. Necessitating 2 L oxygen for an O2 sat of 88% on room air on arrival. Kidney function at baseline. Chest imaging showing pulmonary hypertension and what appears to be some pulmonary edema. Because of her cough and history, ER initiated vancomycin and Zosyn. Cultures obtained. Patient does not appear septic at this time. Medicine consulted for admission and further care On my evaluation, patient appears significantly more volume overloaded than when I discharged her 2 weeks ago. Has not followed with pulmonology or cardiology since discharge. Has an appointment with cardiology scheduled next week and with pulmonology in 2 weeks. States she feels okay but appears dyspneic with accessory muscle use. Daughter at bedside helps supplement history. [facility] Disclaimer: The information contained in this section may have been updated after the patient was seen, as this information can be updated by other users. Medical History Acute and chronic respiratory failure with hypoxia Cor pulmonale Hypertension Abnormal abdominal CT scan Peripheral arterial disease Primary pulmonary hypertension Type 2 diabetes mellitus with foot ulcer UTI (urinary tract infection) Renal insufficiency Hyperkalemia Hypotension CAD in [place] artery BMI 39.0-39.9,adult Chronic anemia Chronic anticoagulation Coronary artery disease Diabetes HFrEF (heart failure with reduced ejection fraction) Pulmonary hypertension Depression Constipation GERD (gastroesophageal reflux disease) Oxygen dependent Atrial fibrillation Surgical History Status post left heart catheterization Family History Alcohol abuse Family history of cancer Heart attack Social History (Reviewed 11/05/24 @ 17: by Brandon Oconnor MD) Smoking Status: Never smoker alcohol intake: never current occupational status: unemployed Travel in the last 8 weeks?: None Have you lived/traveled outside US in past 30 days?: No Contact w/someone who lives/traveled outside US past 30 days?: No Exposure to someone with infectious disease in past 14 days?: No Do you have a fever (greater than 100.4 F or 38 C)?: No Have you tested positive for COVID-19?: No Exposed to someone with COVID-19 in past 14 days?: No Do you have a sore throat?: No Do you have a cough?: No Do you have any weakness?: No Do you have any diarrhea?: No Are you experiencing any unusual bleeding?: No Do you have any muscle aches/pain?: No Do you have any abdominal pain?: No Are you experiencing loss of taste or smell?: No Other Medical History Have you received the Flu Vaccine for this season: No Have you received the Pneumonia Vaccine: No Review of Systems Review of Systems Review of systems (narrative): 14 point review of systems performed, pertinent positives and negatives as per HPI Meds Home Medications and Allergies Home Medications ?Medication ?Instructions ?Recorded ?Confirmed ?Type acetaminophen 500 mg tablet 1,000 mg PO Q6H PRN Mild Pain 05/09/24 10/17/24 History (Tylenol Extra Strength) (Scale Score 1-4) atorvastatin 40 mg tablet 40 mg PO HS #90 tabs 04/14/25 08/29/25 Rx Held on 10/23/24. Instructions: pending improvement in liver enzymes pantoprazole 40 mg tablet,delayed 40 mg PO HS #90 tabs 06/09/24 10/17/24 Rx release Held on 10/23/24. Instructions: pending completion of clindamycin tirzepatide 5 mg/0.5 mL 5 mg (0.5 mL) SQ WEEKLY #2.5 mL 07/22/24 10/17/24 Rx subcutaneous pen injector zolpidem 5 mg tablet (Ambien) 5 mg PO HS PRN sleep #30 tabs 08/26/24 10/17/24 Rx nystatin 100,000 unit/gram topical 1 applic topical BID PRN 09/30/24 10/17/24 History powder Excoriation apixaban 5 mg tablet (Eliquis) 5 mg PO BID 10/17/24 10/17/24 History aspirin 81 mg tablet,delayed 81 mg PO DAILY 10/17/24 10/17/24 History release duloxetine 60 mg capsule,delayed 60 mg PO DAILY 10/17/24 10/17/24 History release famotidine 20 mg tablet 20 mg PO DAILY 10/17/24 10/17/24 History macitentan 10 mg tablet (Opsumit) 10 mg PO DAILY 10/17/24 10/17/24 History melatonin 5 mg tablet 5 mg PO HS 10/17/24 10/17/24 History nortriptyline 25 mg capsule 25 mg PO HS 10/17/24 10/17/24 History sennosides 8.6 mg-docusate sodium 1 tab PO DAILY 10/17/24 10/17/24 History 50 mg tablet (Senexon-S) tadalafil (pulm. hypertension) 20 20 mg PO DAILY 10/17/24 10/17/24 History mg tablet (pulmonary hypertension) Held on 10/23/24. Instructions: pending follow-up with Pulmonology bumetanide 1 mg tablet 1 mg PO DAILY 10/18/24 10/18/24 History ferrous sulfate 325 mg (65 mg 325 mg PO Q48H 10/18/24 10/18/24 History iron) tablet (Feosol) metoprolol succinate 25 mg 25 mg PO DAILY 10/18/24 10/18/24 History tablet,extended release 24 hr clindamycin HCl 150 mg capsule 300 mg (2 x 150 mg) PO TID 5 days 10/23/24 Rx #30 caps polyethylene glycol 3350 17 gram 17 g PO DAILYP PRN Constipation 30 10/23/24 Rx oral powder packet (HealthyLax) days #30 ea New Prescriptions to Start Prescriptions: Allergies Allergy/AdvReac Type Severity Reaction Status Date / Time levofloxacin Allergy Verified 10/02/24 10:58 meperidine Allergy Verified 10/02/24 10:58 Exam Data for Last 24 hours Vital signs and Labs for Last 24 Hours: Temp Pulse Resp BP Pulse Ox O2 Del Method O2 Flow Rate 98.8 F 86 17 117/68 98 Nasal Cannula 2 11/05/24 14:37 11/05/24 17:00 11/05/24 17:00 11/05/24 17:00 11/05/24 17:00 11/05/24 17:00 11/05/24 17:00 Laboratory Results - last 24 hr 11/05/24 14:39: WBC 11.2 H, RBC 3.54 L, Hgb 8.2 L, Hct 27.5 L, MCV 77.7 L, MCH 23.2 L, MCHC 29.8 L, RDW 26.0 H*, Plt Count 526 H, MPV 10.3, Neut % (Auto) 65.6, Lymph % (Auto) 11.1, [place] % (Auto) 18.8 H, Eos % (Auto) 3.1, Baso % (Auto) 1.0, Neut # (Auto) 7.4, Lymph # (Auto) 1.2, [place] # (Auto) 2.1 H, Eos # (Auto) 0.4, Baso # (Auto) 0.1, Total Counted 100, Neutrophils % (Manual) 66, Band Neutrophils % 1.0, Lymphocytes % (Manual) 10, Monocytes % (Manual) 21 H, Eosinophils % (Manual) 2, Platelet Estimate Moderate increase, RBC Morphology Normal, Sodium 134 L, Potassium 4.0, Chloride 97 L, Carbon Dioxide 32 H, Anion Gap 9.0, BUN 23 H, Creatinine 1.00, Estimated Creat Clear 83, Estimated GFR 55 L, Est GFR ( Amer) 66, Glucose 182 H, Lactate 2.6 H, Calcium 8.5, Magnesium 1.7, Total Bilirubin 0.8, AST 37 H, ALT 32, Alkaline Phosphatase 243 H, Troponin I 0.02, NT-Pro-B Natriuret Pep 5850 H, Total Protein 7.5, Albumin 3.7, Globulin 3.8 H, Albumin/Globulin Ratio 1.0 L 11/05/24 14:54: SARS-CoV-2 (PCR) Not detected, Influenza A Untype (PCR) Not detected, Influenza Type B (PCR) Not detected 11/05/24 15:28: Urine Color Yellow, Urine Appearance Clear, Urine pH 5.5, Ur Specific [place] 1.020, Urine Protein Negative, Urine Glucose (UA) Negative, Urine Ketones Negative, Urine Blood 1+ A, Urine Nitrate Negative, Urine Bilirubin Negative, Urine Urobilinogen 0.2, Ur Leukocyte Esterase Negative, Urine RBC 5-10, Urine WBC 3-5, Ur Squamous Epith Cells 20-50, Urine Bacteria 2+ I & O for Last 24 hours: Intake & Output 11/02/24 11/03/24 11/04/24 11/05/24 23:59 23:59 23:59 23:59 Intake Total 50 / 50 Balance 50 / 50 Weight 102.058 kg Constitutional Constitutional: moderate distress, obese, chronically ill appearing and cooperative *Routine HEENT Exam Head: Present normocephalic Eye: Present EOMI and PERRL ENT: Present mucous membranes moist Comments: Cheeks flushed bilaterally *Routine Neck Exam Neck: Present supple; Absent lymphadenopathy *Routine Respiratory Exam Respiratory: Present accessory muscle use, prolonged expiratory phase, rhonchi, crackles (Bases bilaterally posterior lung field) and distant breath sounds; Absent wheezes or normal respiratory effort *Routine Cardiovascular Exam Cardiovascular: Present RRR *Routine Abdominal Exam Abdominal: Present soft and normoactive bowel sounds; Absent tenderness *Routine Rectal Exam Rectal:: deferred *Routine Genitalia Exam Genitalia:: deferred *Routine Extremities Exam Extremities: Present edema (3+ to her thighs); Absent cyanosis or clubbing *Routine Skin Exam Skin: Present intact and warm; Absent rash Comments: Legs with mild erythema, shiny and tight from edema *Routine Neurological Exam Neurological: Present alert, oriented X3 and moving all extremities; Absent altered mental status Assessment and Plan *Assessment and plan (1) (HFpEF) heart failure with preserved ejection fraction: Status: Acute Qualifiers: Heart failure chronicity: acute on chronic Qualified Code(s): I50.33 - Acute on chronic diastolic (congestive) heart failure Category: Medical Code(s): I50.30 - Unspecified diastolic (congestive) heart failure (2) Cor pulmonale: Status: Acute Category: Medical Code(s): I27.81 - Cor pulmonale (chronic) (3) Primary pulmonary hypertension: Status: Chronic Category: Medical Code(s): I27.0 - Primary pulmonary hypertension (4) Hypertension: Status: Chronic Category: Medical Code(s): I10 - Essential (primary) hypertension (5) Asplenia: Status: Chronic Category: Medical Code(s): Q89.01 - Asplenia (congenital) (6) Severe tricuspid regurgitation: Status: Chronic Category: Medical Code(s): I07.1 - Rheumatic tricuspid insufficiency (7) Diabetes mellitus type 2 in obese: Status: Chronic Category: Medical Code(s): E11.69 - Type 2 diabetes mellitus with other specified complication; E66.9 - Obesity, unspecified (8) Obesity: Problem Comment: Class II Status: Chronic Qualifiers: Body mass index: BMI 31.0-31.9 Obesity classification: adult class 1 (BMI 30 - 34.9) Obesity type: due to excess calories Serious obesity comorbidity presence: with serious comorbidity Qualified Code(s): E66.09 - Other obesity due to excess calories; Z68.31 - Body mass index [BMI] 31.0-31.9, adult Category: Medical Code(s): E66.9 - Obesity, unspecified (9) Atrial fibrillation: Status: Chronic Qualifiers: Atrial fibrillation type: longstanding persistent Qualified Code(s): I48.11 - Longstanding persistent atrial fibrillation Category: Medical Code(s): I48.91 - Unspecified atrial fibrillation Plan Rica Flannery is a 69-year-old female with a medical history significant for severe right heart failure/cor pulmonale from pulmonary hypertension, asplenia, paroxysmal A-fib, CAD, type 2 diabetes, anxiety/depression, GERD presents with dyspnea, rhonchorous cough, increased swelling in her legs and weight gain. Presented from [place]. In the ER, found to have significant volume overload and new oxygen requirement of 2 L. Discussed case with ER physician, request admission for diuresis and further management of her acute on chronic HFpEF and pulmonary hypertension. I decided to admit to medicine for further management. Will initiate on Bumex drip. Pulmonology and cardiology consulted to evaluate the patient in the morning. Necessitating inpatient care, risk for decompensation. Anticipate patient will be admitted for at least 2 midnights. Problems addressed as follows: # Pulmonary hypertension with cor pulmonale # Severe RV failure with cor pulmonale # Severe tricuspid regurgitation # Acute on chronic HFpEF #Medication side effect ? Patient has underlying pulmonary hypertension with concomitant cor pulmonale, possibly related to undiagnosed sleep apnea versus history of hypertension. - Reviewed right and left heart cath from [place], Consistent with primary pulmonary hypertension. Right heart failure severe. Pulmonary artery pressures equal to systemic pressures. ?Was previously started on tadalafil, macitentan. At last discharge continued macitentan. Missed this for several days due to difficulty getting it at the correction. Will continue during admission if pressures tolerate. - Initiate aggressive diuresis for volume overload. BNP elevated at 5800. Chest imaging per my review shows pulmonary hypertension with some patchy findings on CT consistent with pulmonary edema. -Administer 1 mg Bumex IV and initiate Bumex drip 0.5 mg/h. If not having response after 4 to 6 hours, will increase to 1 mg/h. - May necessitate pressors to facilitate diuresis. Goal systolic pressure greater than 90 - Pulmonology and cardiology consulted to assist with care in the morning. - Goal sats greater than 90%, currently on 2 L. 88% on room air on arrival. In respiratory distress. - White count 11.2, same as at discharge. Platelets 526. Sodium 134, bicarb 32, BUN 23 and creatinine 1.0. Magnesium 1.7. Close monitoring of electrolytes with CBC, CMP, magnesium ordered for the morning. - Previously: Presented with dizziness, exercise intolerance over the past month. Evaluated by [facility] recently for consideration of triclip for severe tricuspid regurgitation however she was not a good candidate. ? ECHO August 2024 shows markedly elevated RVSP >60 mmHg, severe RV dilatation with failure. EF preserved ? Has underlying pulmonary hypertension, has not been evaluated for sleep apnea or sleep study. Has one scheduled for November 2024. # Iron deficient anemia: Anemia stable with hemoglobin 8.2. MCV 77. Will administer iron infusions during admission. 300 mg Venofer ordered for the morning #History of asplenia: Monitor closely for infection. Low threshold to continue antibiotics #Physical deconditioning #Depression ? Patient's recently. Had gone to rehab for therapy. Was participating well with PT and OT. Will reconsult PT and OT while admitted. ? Mood stable, continue home duloxetine 60 mg daily, nortriptyline 25 mg daily. - Melatonin 5 mg nightly for sleep Chronic medical problems: #Paroxysmal A-fib: Currently rate controlled. Continue home Eliquis 5 mg twice daily. Hold home metoprolol due to hypotension. #CAD: Continue home aspirin, hold statin with aggressive diuresis. DNR/DNI DVT prophylaxis: Eliquis Cardiac diet
[2024-11-05] MEDS: 0.9 % SODIUM CHLORIDE 50 ML VIAL 40 ML IV (17:40)
--- NOTE | 2024-11-05 17:40 | PC.NURSE ---
report called to gordy on second floor
[2024-11-05] MEDS: IOPAMIDOL-370 (76%);100ML BOTTLE 80 ML IV (17:41)
[2024-11-05] MEDS: SODIUM CHLORIDE 0.9% 10ML SYR (RAD ONLY) 10 ML IV (17:41)
--- NOTE | 2024-11-05 18:08 | PC.NURSE ---
pt was transferred to floor, vancomycin was not complete at time of transfer
[2024-11-05 18:11] VITALS: BP 117/68; PULSE 86; RESP 19; TEMP 36.7; O2SAT 95
[2024-11-05 18:29] VITALS: BP 140/75; PULSE 98; RESP 18; TEMP 37; O2SAT 96; BMI 43.6
[2024-11-05] MEDS: BUMETANIDE 1MG/4ML VIAL 1 MG IV (18:38)
[2024-11-05 18:45] LABS: Reflex Lactic Add Lactic Reflex
[2024-11-05 19:22] LABS: Lactic Acid Follow Up (RFLX 1) 1.5 mmol/L (0.7-2.1)
[2024-11-05 19:35] LABS: Troponin I 0.02 ng/ml (0.00-0.034)
--- NOTE | 2024-11-05 19:46 | PC.NURSE ---
expression of wishes paper work reviewed and signed with patient - she wishes to be a DNR/DNI
[2024-11-05 20:00] VITALS: BP 125/69; PULSE 70; PULSE 92; RESP 20; TEMP 36.8; O2SAT 98
[2024-11-05 20:03] LABS: POC Glucose,Bedside 219 gm/dL (70-110)
--- NOTE | 2024-11-05 20:28 | PC.NURSE ---
med rec updated per [facility] paperwork - paperwork returned to patient chart
[2024-11-05] MEDS: BUMETANIDE 10 MG in 0.9 % SODIUM CHLORIDE 60 ML 5 MG IV (20:42)
[2024-11-05] MEDS: APIXABAN 5MG TABLET 5 MG PO (20:42)
[2024-11-05] MEDS: MELATONIN 5MG TABLET 5 MG PO (20:42)
[2024-11-05] MEDS: PIPERCILLIN/TAZO 3.375 GM in 0.9 % SODIUM CHLORIDE 50 ML IV (23:30)
[2024-11-06] VITALS (7 sets, daily range): BP systolic 96–119; BP diastolic 58–76; PULSE 70–95; RESP 16–20; TEMP 36.6–37.4; O2SAT 92–98; BMI 43.6
[2024-11-06 05:43] LABS: Hematocrit 27.7 % (37.0-47.0); Hemoglobin 7.9 g/dL (12.2-16.2); Immature Granulocytes % 0.4 %; Mean Corpuscular HGB Conc 28.5 g/dL (31.8-35.4); Mean Corpuscular Hemoglobin 22.4 pg (27.0-31.2); Mean Corpuscular Volume 78.5 fl (81-99); Nucleated Red Blood Cells % 0.2 %; Platelet Count 457 K/mm3 (142-424); Red Blood Count 3.53 M/mm3 (4.20-5.40); Red Cell Distribution Width-SD 71.1 fL; White Blood Count 12.6 K/mm3 (4.8-10.8)
[2024-11-06 05:55] LABS: Alanine Aminotransferase 26 U/L (12-78); Albumin Level 3.4 g/dl (3.5-5.0); Albumin/Globulin Ratio 0.9 (1.1-1.8); Alkaline Phosphatase 218 U/L (38-126); Anion Gap 6.1 mEq/L (5-15); Aspartate Amino Transferase 23 U/L (14-36); Bilirubin,Total 0.8 mg/dl (0.2-1.3); Blood Urea Nitrogen 17 mg/dl (7-17); Calcium 8.3 mg/dl (8.4-10.2); Carbon Dioxide 37 mmol/L (22.0-30.0); Chloride 94 mmol/L (98-107); Creatinine Clearance Estimated 45 mL/min (50-200); Creatinine,Serum 0.90 mg/dl (0.52-1.04); Estimated Glomerular Filt Rate 62 ml/min (>60); GFR (African American) 75 ML/MIN (>60); Globulin 3.7 g/dL (1.3-3.2); Glucose 128 mg/dl (74-100); Magnesium 1.5 mg/dl (1.6-2.3); Potassium 3.1 mmoL/L (3.5-5.1); Sodium 134 mmol/L (136-145); Total Protein,Serum 7.1 g/dl (6.3-8.2)
[2024-11-06 06:05] LABS: RBC Morphology Normal; Total Cells Counted 100
[2024-11-06] MEDS: PIPERCILLIN/TAZO 3.375 GM in 0.9 % SODIUM CHLORIDE 50 ML IV ×4 (06:24→23:01)
--- NOTE | 2024-11-06 07:51 | SW/DCPLANNER ---
Addendum entered by Kacey Ho 11/07/24 13:26: Patient will discharge to [place] tomorrow [facility] level of care. Addendum entered by Kacey Ho 11/07/24 07:43: Updated patient information faxed to [facility]. Original Note: Patient currently resides at [facility] level of care. Updated patient information has been faxed to [facility]. Discharge date is unknown at this time. CM will continue to follow up.
--- NOTE | 2024-11-06 07:57 | EXP.PHA.CONS ---
Pharmacy Consult Date: 11/06/24 Time: 07:57 Referring provider: DR. LEVY Reason for Consult:: VANCOMYCIN DOSING Allergies Allergy/AdvReac Type Severity Reaction Status Date / Time levofloxacin Allergy Verified 10/02/24 10:58 meperidine Allergy Verified 10/02/24 10:58 Home Medications ?Medication ?Instructions ?Recorded ?Confirmed ?Type acetaminophen 500 mg tablet 1,000 mg PO Q6H PRN Mild Pain 05/09/24 11/05/24 History (Tylenol Extra Strength) (Scale Score 1-4) zolpidem 5 mg tablet (Ambien) 5 mg PO HS PRN sleep #30 tabs 08/26/24 11/05/24 Rx nystatin 100,000 unit/gram topical 1 applic topical BID PRN 09/30/24 11/05/24 History powder Excoriation apixaban 5 mg tablet (Eliquis) 5 mg PO BID 10/17/24 11/05/24 History aspirin 81 mg tablet,delayed 81 mg PO DAILY 10/17/24 11/05/24 History release duloxetine 60 mg capsule,delayed 60 mg PO DAILY 10/17/24 11/05/24 History release famotidine 20 mg tablet 20 mg PO DAILY 10/17/24 11/05/24 History melatonin 5 mg tablet 5 mg PO HS 10/17/24 11/05/24 History nortriptyline 25 mg capsule 25 mg PO HS 10/17/24 11/05/24 History sennosides 8.6 mg-docusate sodium 1 tab PO DAILY 10/17/24 11/05/24 History 50 mg tablet (Senexon-S) bumetanide 1 mg tablet 2 mg PO DAILY 10/18/24 11/05/24 History ferrous sulfate 325 mg (65 mg 325 mg PO Q48H 10/18/24 11/05/24 History iron) tablet (Feosol) metoprolol succinate 25 mg 25 mg PO DAILY 10/18/24 11/05/24 History tablet,extended release 24 hr polyethylene glycol 3350 17 gram 17 g PO DAILYP PRN Constipation 30 10/23/24 11/05/24 Rx oral powder packet (HealthyLax) days #30 ea ipratropium 0.5 mg-albuterol 3 mg 1 ml inhalation Q6HP PRN soa 11/05/24 11/05/24 History (2.5 mg base)/3 mL nebulization soln macitentan 10 mg tablet (Opsumit) 10 mg PO DAILY 11/05/24 11/05/24 History ondansetron HCl 8 mg tablet 4 mg PO Q8HP PRN Nausea And 11/05/24 11/05/24 History Vomiting New Prescriptions to Start Prescriptions: Height: 1.63 m Weight: 115.9 kg Laboratory Results:: Laboratory Results - last 24 hr 11/05/24 14:39: WBC 11.2 H, RBC 3.54 L, Hgb 8.2 L, Hct 27.5 L, MCV 77.7 L, MCH 23.2 L, MCHC 29.8 L, RDW 26.0 H*, Plt Count 526 H, MPV 10.3, Neut % (Auto) 65.6, Lymph % (Auto) 11.1, [place] % (Auto) 18.8 H, Eos % (Auto) 3.1, Baso % (Auto) 1.0, Neut # (Auto) 7.4, Lymph # (Auto) 1.2, [place] # (Auto) 2.1 H, Eos # (Auto) 0.4, Baso # (Auto) 0.1, Total Counted 100, Neutrophils % (Manual) 66, Band Neutrophils % 1.0, Lymphocytes % (Manual) 10, Monocytes % (Manual) 21 H, Eosinophils % (Manual) 2, Platelet Estimate Moderate increase, RBC Morphology Normal, Sodium 134 L, Potassium 4.0, Chloride 97 L, Carbon Dioxide 32 H, Anion Gap 9.0, BUN 23 H, Creatinine 1.00, Estimated Creat Clear 83, Estimated GFR 55 L, Est GFR ( Amer) 66, Glucose 182 H, Lactate 2.6 H, Calcium 8.5, Magnesium 1.7, Total Bilirubin 0.8, AST 37 H, ALT 32, Alkaline Phosphatase 243 H, Troponin I 0.02, NT-Pro-B Natriuret Pep 5850 H, Total Protein 7.5, Albumin 3.7, Globulin 3.8 H, Albumin/Globulin Ratio 1.0 L 11/05/24 14:54: SARS-CoV-2 (PCR) Not detected, Influenza A Untype (PCR) Not detected, Influenza Type B (PCR) Not detected 11/05/24 15:28: Urine Color Yellow, Urine Appearance Clear, Urine pH 5.5, Ur Specific [place] 1.020, Urine Protein Negative, Urine Glucose (UA) Negative, Urine Ketones Negative, Urine Blood 1+ A, Urine Nitrate Negative, Urine Bilirubin Negative, Urine Urobilinogen 0.2, Ur Leukocyte Esterase Negative, Urine RBC 5-10, Urine WBC 3-5, Ur Squamous Epith Cells 20-50, Urine Bacteria 2+ 11/05/24 18:57: Lactate 1.5, Troponin I 0.02 11/05/24 19:53: POC Glucose 219 H 11/06/24 05:18: WBC 12.6 H, RBC 3.53 L, Hgb 7.9 L, Hct 27.7 L, MCV 78.5 L, MCH 22.4 L, MCHC 28.5 L, RDW 26.2 H*, Plt Count 457 H, MPV 10.2, Neut % (Auto) 68.1, Lymph % (Auto) 7.9 L, [place] % (Auto) 18.4 H, Eos % (Auto) 4.2, Baso % (Auto) 1.0, Neut # (Auto) 8.6 H, Lymph # (Auto) 1.0, [place] # (Auto) 2.3 H, Eos # (Auto) 0.5 H, Baso # (Auto) 0.1, Total Counted 100, Neutrophils % (Manual) 72, Lymphocytes % (Manual) 7 L, Monocytes % (Manual) 18 H, Eosinophils % (Manual) 3, Platelet Estimate Normal, RBC Morphology Normal, Sodium 134 L, Potassium 3.1 L D, Chloride 94 L, Carbon Dioxide 37 H, Anion Gap 6.1, BUN 17 D, Creatinine 0.90, Estimated Creat Clear 45, Estimated GFR 62, Est GFR ( Amer) 75, Glucose 128 H D, Calcium 8.3 L, Magnesium 1.5 L D, Total Bilirubin 0.8, AST 23 D, ALT 26, Alkaline Phosphatase 218 H, Total Protein 7.1, Albumin 3.4 L, Globulin 3.7 H, Albumin/Globulin Ratio 0.9 L Medical History: Medical History (Updated 11/05/24 @ 18:20 by Brandon Levy MD) Acute and chronic respiratory failure with hypoxia Cor pulmonale Hypertension Abnormal abdominal CT scan Peripheral arterial disease Primary pulmonary hypertension Type 2 diabetes mellitus with foot ulcer UTI (urinary tract infection) Renal insufficiency Hyperkalemia Hypotension CAD in [place] artery BMI 39.0-39.9,adult Chronic anemia Chronic anticoagulation Coronary artery disease Diabetes HFrEF (heart failure with reduced ejection fraction) Pulmonary hypertension Depression Constipation GERD (gastroesophageal reflux disease) Oxygen dependent Atrial fibrillation Assessment and Plan Assessment and plan all Dx Assessment and Plan for all problems:: Pharmacokinetic dosing service Objective: Patient: Floor: Age: 69 yo Serum creatinine: 1 mg/dL Height: 64.2 Inches Weight (kg): 116 Assessment: IBW (kg): 55.16 Dosing wt(kg): 116 Estimated Creatinine clearance (ml/min): 44.9 CRCL method: Cockcroft and Gault using ibw(default). Drug selected: Vancomycin Loading dose (mg): 0 Vd (liters): 92.8 (factor used: 0.8 L/kg) [place] (hr-1): 0.042 Half life (hrs): 16.50 Recommended dose: 1750 mg Interval: 18 hrs Infusion time (hrs): 2.0 Predicted peak (mcg/mL): 34.1 Predicted trough (mcg/mL): 17.41 Total body weight is being used for vancomycin dosing. Recommendations: Give Vancomycin 1750 mg q 18 hrs with an expected Cpeak of 34.1 mcg/ml and an expected Ctrough of 17.41 mcg/ml ----Vanco only - ignore for aminoglycosides----- CLvanco= 3.90 L/hr AUC 0-24 /CARLOS Data: CARLOS 0.5 mcg/mL: AUC/CARLOS: 1196.6 CARLOS 1.0 mcg/mL: AUC/CARLOS: 598.3 --------- CARLOS 1.5 mcg/mL: AUC/CARLOS: 398.9 CARLOS 2.0 mcg/mL: AUC/CARLOS: 299.1
[2024-11-06] MEDS: ASPIRIN EC 81MG TABLET 81 MG PO (09:16)
[2024-11-06] MEDS: APIXABAN 5MG TABLET 5 MG PO ×2 (09:16→20:09)
[2024-11-06] MEDS: POLYETHYLENE GLYCOL 3350 17 GM PACKET PO ×2 (09:16→20:10)
[2024-11-06] MEDS: IRON SUCROSE COMPLEX 300 MG in 0.9 % SODIUM CHLORIDE 250 ML 220 MG IV (09:17)
--- NOTE | 2024-11-06 09:43 | HMH.OTEV ---
OT Evaluation Rehab OT IP Evaluation Start: 11/05/24 17:26 Freq: ONCE Status: Active Protocol: Document 11/06/24 09:33 ANUPAM (Rec: 11/06/24 09:42 ANUPAM [id number]) Rehab OT IP Assessment Subjective History Per HPI narrative: 69-year-old female presents emergency department via EMS from longterm facility with complaints of shortness of breath. Patient recently diagnosed with pneumonia and finished clindamycin last week.. Patient states she does not wear oxygen at baseline however arrives to the emergency department requiring supplemental oxygen via nasal cannula. Patient denies chest pain, fevers. Subjective I do not want to get in the chair. Pt was supine in bed when therapy entered room. Pt orient x3. Pt agreed to initial OT eval this AM. Pt's daughter present. Pt reported that they were at [facility] previously for rehab, but have had regression. Pt and daughter report pt gained 16 lbs of fluid while at [facility]. pt reported they live with daughter who is a PT. Pt reported they have intermittent 24/7 care. Daughter reported that pt has had increased dizziness and health concerns to where she was able to be left alone for hours at time, but now can not be left alone. Pt reported they are not normally on O2, currently on 2 L. Pt reported they have shower chair and grab bars and raised toilet seat and grab bars near toilet. Pt lives in home with daughter with ramp entrance. pt denied getting into chair, but agreed to go to EOB. Pt was Min A to go from supine to EOB. Pt reported they were dizzy and was instructed to take mx deep breaths. Pt able to hold static sitting balance at EOB with SBA. Pt denied completing a STS transfer. Pt reported they would get in chair in PM. Pt was able to use UB strength to scoot in bed ind and was Min A to raise LB into bed. Pt was left supine in bed with call light and all other needs within reach and daughter present. Objective Patient Orientation Person,Place,Name Right Upper WFL Extremity Gross ROM Left Upper Extremity WFL Gross ROM Bed Mobility bed mobility-scooting,bed mobility - supine/sit Assist Level Minimal x 1 (25% assist) Decrease in Yes Endurance Rehab OT IP prob,goals,plan Problems Date of Evaluation: 11/06/24 OT IP Problems Bed Mobility,Transfers,Balance,Self care,Safety Rehab Potential Rehab Potential Good Equipment Needs Assistive Devices Standard Walker,Rolling / Wheeled Walker Plan OT intervention Plan Bed Mobility,Transfers,Balance,Self care,Safety, Therapeutic Exercise OT Plan Frequency Daily Duration LOS Discharge Goals Bed Mobility Ability Standby Assistance Sit to Stand Chair Contact Guard/Hand Hold Transfer Ability Chair Transfer Contact Guard/Hand Hold Ability Chair Transfer Sit to/from Ambulatory Technique Chair Transfer Rolling Walker Assistive Devices Feeding Ability Assist with Tray Set Up Commode/Toilet Raised Toilet Seat,Grab Bars Transfer Assistive Devices Decrease in No Endurance Discharge Plan OT Discharge Plan At this time, pt is below baseline and would benefit from skilled acute OT services and interventions while admitted at [facility] to further address functional limitations in occupational performance. Once medically stable, pt would benefit from OT IP rehab to further address functional limitations in occupational performance to achieve PLOF. Eval Complexity Eval Charge Codes 42586 - Moderate Complexity PHYSICIAN CERTIFICATION: I certify the specified therapy services for Rica Flannery are required, authorized, and reviewed every 30 days.
--- NOTE | 2024-11-06 10:06 | HMH.PTEV ---
Physical Therapy Evaluation Rehab PT IP Evaluation Start: 11/05/24 17:26 Freq: ONCE Status: Active Protocol: Document 11/06/24 09:59 SAM (Rec: 11/06/24 10:06 SAM [id number]) Subjective/History History History Per H&P: Mrs. Flannery is a 69-year-old female with a medical history significant for severe right heart failure/cor pulmonale from pulmonary hypertension, asplenia, paroxysmal A-fib, CAD, type 2 diabetes, anxiety/depression, GERD who presented from [facility] with increased swelling in her legs, weight gain of at least 20 pounds over the past 2 weeks , and worsening rhonchorous cough along with new oxygen requirement. Patient was discharged from our hospital approximately 2 weeks ago to finish treatment for MRSA pneumonia after being diuresed and on pressors in the ICU to assist with diuresis due to her heart failure, pulmonary hypertension, cor pulmonale. She was on room air at that time. Needed rehab to get stronger. Was tolerating diuretics and Opsumit for her Pulmonary hypertension. Per her daughter, she was doing well for the first week working with rehab. They made some adjustments to her meds however because of her soft blood pressures which led to her starting to gain weight and have increased shortness of breath and cough starting approximately the past weekend. Denies fever , nausea or vomiting. Cough rhonchorous but not coughing anything up. Denies chest pain. Does complain of leg swelling and pain in her legs. Legs are tight and shiny. Initial labs show BNP of 5800, down from 15,000 on 10/21. White count 11.2 which is consistent with her discharge level. Hemoglobin 8.2 consistent with her known anemia from iron deficiency. Necessitating 2 L oxygen for an O2 sat of 88% on room air on arrival. Kidney function at baseline. Chest imaging showing pulmonary hypertension and what appears to be some pulmonary edema. Because of her cough and history, ER initiated vancomycin and Zosyn. Cultures obtained. Patient does not appear septic at this time. Medicine consulted for admission and further care Subjective Subjective Pt and pt's daughter present to provide hx. Pt has been receiving skilled rehab at a SNF prior to admission. Pt reports she was making good prgress with rehab but was limited by worsening medical conditions. Pt and daughter express the desire to continue rehab services but at another location if possible. PT relayed these concerns to CM. Pt normally lives at home. Though she does receive assistance by family, pt is alone at times . New diagnosis of No cancer in past 12 months? [facility] How much help from another person do you currently need... Turning from your A little back to your side while in a flat bed without using bedrails? Moving from lying on A little back to sitting on the side of a flat bed without using bedrails? Moving to and from a A little bed to a chair ( including a wheelchair)? Standing up from a A little chair using your arms? (e.g., wheelchair, bedside chair) Walking in hospital A lot room? Climbing 3-5 steps A lot with a railing? Mobility Score 16 Mobility Level [facility] Mobility 5 Stand (1 or more minutes) Mobility Calculator Rehab PT IP Eval Objective Appearance Patient Behavior Appropriate,Cooperative Patient Orientation Person,Place,Situation Difficulty following none instructions Speech Pattern Clear Ambulation Patient Able to No Ambulate Balance Ability to Arise Able, uses arms to help Sitting Balance Steady, safe Standing Balance Unsteady Transfers Bed Transfer Ability Minimal x 1 (25% assist) Sit to Stand Bed Minimal x 1 (25% assist) Transfer Ability Rehab PT IP prob,goals,plan Problems Date of Evaluation: 11/06/24 PT IP Problems Bed Mobility,Transfers,Gait,Balance,Self care,Safety Rehab Potential Rehab Potential Good Plan PT Intervention Plan Bed Mobility,Transfers,Gait,Balance,Self care,Safety, Therapeutic Exercise Other Intervention 1-2 times Plan PT Plan Frequency Daily Duration LOS Discharge Goals Bed Transfer Ability Independent Sit to Stand Chair Independent Transfer Ability Ambulation Distance 20 (feet) Discharge Plan PT Discharge Plan Pt most appropriate for continuing skilled inpatient rehab at this time. Pt's mobility evaluation limited by dizziness (BP: 113/ 54) and pt not willing to stand or ambulate at this time. Pt would benefit from skilled acute care PT at this time to address deficits and prevent further functional decline. Eval Complexity Eval Charge Codes 10005 - Moderate Complexity PHYSICIAN CERTIFICATION: I certify the specified therapy services for Rica Flannery are required, authorized, and reviewed every 30 days.
[2024-11-06] MEDS: VANCOMYCIN/WATER FOR INJ (PEG) 1.75 GM/350 ML PIGGYBACK IV (10:33)
[2024-11-06] MEDS: POTASSIUM CHLORIDE 20MEQ TAB 40 MEQ PO ×3 (11:00→17:51)
[2024-11-06] MEDS: MAGNESIUM SULFATE IN WATER 2 GM/50 ML PIGGYBACK IV ×2 (11:03→12:23)
--- NOTE | 2024-11-06 11:40 | EXP.CARD.CON ---
History of Present Illness History of Present Illness Consult date: 11/06/24 Requesting physician: Brandon Oconnor Consult reason: congestive heart failure and shortness of breath Chief complaint: SOA, edema Additional Medical History:: 1. End-stage COPD/cor pulmonale with presumed primary pulmonary hypertension, severe RV dilation and severe TR. A. Presumed to be a combination of obesity and untreated MANSI with no known history of pulmonary disease. B. Evaluated at [facility] for consideration of Tri clip but ultimately not felt to be a good candidate. C. Right and left heart catheterization showing nonobstructive coronary disease with severe pulmonary hypertension with moderate RV dilation with increased PVR at 12 [place] with elevated wedge pressure at 18. D. Patient was started on tadalafil and macitentan with improvement in symptoms E. Chest CTA, 08/2024, no evidence of PE with no acute lung disease. 2. Morbid obesity A. BMI 43.6 3. Hypertension . Echocardiogram, 08/25/2024, technically difficult study, normal LV systolic function, severe RV dilation with severe reduction in RV function, biatrial dilation, severe TR, mild PI/MR, RVSP greater than 60 mmHg 4. Diabetes mellitus type 2 5. History of atrial fibrillation with chronic anticoagulation 6. Nonobstructive coronary artery disease by recent left heart catheterization approximately 08/2024 at the [facility] in [place]. A. Consistent with heart cath in 2022. 7. CT of the abdomen findings of cirrhosis, Child-Cruz score A, 10/2024. 8. Asplenia 9. Anxiety/depression 10. GERD History of present illness: 69-year-old white female recently discharged from the hospital after a stay for iatrogenic hypotension related to medications treating her cor pulmonale/pulmonary hypertension. She required transient use of Levophed and Milrinone for BP/cardiac output support. She was also treated for staph aureus pneumonia with clindamycin. She was sent to a rehab facility at discharge where her BP remained on the low side and some of her medications (diuretics and macitentan) were held which has resulted in a slow increase in her fluid status. She was readmitted yesterday for increasing shortness of breath and significant edema with roughly 20 lb wt gain since discharge on 10/22/2024. Patient was placed back on IV diuretics with a significant diuresis of over 4 L overnight with improvement in shortness of breath and edema. Patient states she is feeling much better today. Cardiology consulted for recommendations. [facility] Disclaimer: The information contained in this section may have been updated after the patient was seen, as this information can be updated by other users. Medical History (Updated 11/06/24 @ 12:23 by CHAYITO Tena) Acute on chronic right heart failure Acute and chronic respiratory failure with hypoxia Cor pulmonale Hypertension Abnormal abdominal CT scan Peripheral arterial disease Primary pulmonary hypertension Type 2 diabetes mellitus with foot ulcer UTI (urinary tract infection) Renal insufficiency Hyperkalemia Hypotension CAD in [place] artery BMI 39.0-39.9,adult Chronic anemia Chronic anticoagulation Coronary artery disease Diabetes HFrEF (heart failure with reduced ejection fraction) Pulmonary hypertension Depression Constipation GERD (gastroesophageal reflux disease) Oxygen dependent Atrial fibrillation Surgical History Status post left heart catheterization Family History Alcohol abuse Family history of cancer Heart attack Social History Smoking Status: Never smoker alcohol intake: never current occupational status: unemployed Travel in the last 8 weeks?: None Have you lived/traveled outside US in past 30 days?: No Contact w/someone who lives/traveled outside US past 30 days?: No Exposure to someone with infectious disease in past 14 days?: No Do you have a fever (greater than 100.4 F or 38 C)?: No Have you tested positive for COVID-19?: No Exposed to someone with COVID-19 in past 14 days?: No Do you have a sore throat?: No Do you have a cough?: No Do you have any weakness?: No Do you have any diarrhea?: No Are you experiencing any unusual bleeding?: No Do you have any muscle aches/pain?: No Do you have any abdominal pain?: No Are you experiencing loss of taste or smell?: No Review of Systems Review of Systems Review of systems:: pertinent systems reviewed and negative unless documented below *Cardiovascular Cardiovascular: Reports dyspnea *Respiratory Respiratory: Reports dyspnea Exam Data for Last 24 hours Vital signs and Labs for Last 24 Hours: Temp Pulse Resp BP Pulse Ox O2 Del Method O2 Flow Rate 98.2 F 83 20 101/59 L 93 L Nasal Cannula 2 11/06/24 11:38 11/06/24 11:38 11/06/24 11:38 11/06/24 11:38 11/06/24 11:38 11/06/24 11:38 11/06/24 11:38 FiO2 2 11/05/24 17:36 Laboratory Results - last 24 hr 11/05/24 14:39: WBC 11.2 H, RBC 3.54 L, Hgb 8.2 L, Hct 27.5 L, MCV 77.7 L, MCH 23.2 L, MCHC 29.8 L, RDW 26.0 H*, Plt Count 526 H, MPV 10.3, Neut % (Auto) 65.6, Lymph % (Auto) 11.1, [place] % (Auto) 18.8 H, Eos % (Auto) 3.1, Baso % (Auto) 1.0, Neut # (Auto) 7.4, Lymph # (Auto) 1.2, [place] # (Auto) 2.1 H, Eos # (Auto) 0.4, Baso # (Auto) 0.1, Total Counted 100, Neutrophils % (Manual) 66, Band Neutrophils % 1.0, Lymphocytes % (Manual) 10, Monocytes % (Manual) 21 H, Eosinophils % (Manual) 2, Platelet Estimate Moderate increase, RBC Morphology Normal, Sodium 134 L, Potassium 4.0, Chloride 97 L, Carbon Dioxide 32 H, Anion Gap 9.0, BUN 23 H, Creatinine 1.00, Estimated Creat Clear 83, Estimated GFR 55 L, Est GFR ( Amer) 66, Glucose 182 H, Lactate 2.6 H, Calcium 8.5, Magnesium 1.7, Total Bilirubin 0.8, AST 37 H, ALT 32, Alkaline Phosphatase 243 H, Troponin I 0.02, NT-Pro-B Natriuret Pep 5850 H, Total Protein 7.5, Albumin 3.7, Globulin 3.8 H, Albumin/Globulin Ratio 1.0 L 11/05/24 14:54: SARS-CoV-2 (PCR) Not detected, Influenza A Untype (PCR) Not detected, Influenza Type B (PCR) Not detected 11/05/24 15:28: Urine Color Yellow, Urine Appearance Clear, Urine pH 5.5, Ur Specific Lyndon 1.020, Urine Protein Negative, Urine Glucose (UA) Negative, Urine Ketones Negative, Urine Blood 1+ A, Urine Nitrate Negative, Urine Bilirubin Negative, Urine Urobilinogen 0.2, Ur Leukocyte Esterase Negative, Urine RBC 5-10, Urine WBC 3-5, Ur Squamous Epith Cells 20-50, Urine Bacteria 2+ 11/05/24 18:57: Lactate 1.5, Troponin I 0.02 11/05/24 19:53: POC Glucose 219 H 11/06/24 05:18: WBC 12.6 H, RBC 3.53 L, Hgb 7.9 L, Hct 27.7 L, MCV 78.5 L, MCH 22.4 L, MCHC 28.5 L, RDW 26.2 H*, Plt Count 457 H, MPV 10.2, Neut % (Auto) 68.1, Lymph % (Auto) 7.9 L, [place] % (Auto) 18.4 H, Eos % (Auto) 4.2, Baso % (Auto) 1.0, Neut # (Auto) 8.6 H, Lymph # (Auto) 1.0, [place] # (Auto) 2.3 H, Eos # (Auto) 0.5 H, Baso # (Auto) 0.1, Total Counted 100, Neutrophils % (Manual) 72, Lymphocytes % (Manual) 7 L, Monocytes % (Manual) 18 H, Eosinophils % (Manual) 3, Platelet Estimate Normal, RBC Morphology Normal, Sodium 134 L, Potassium 3.1 L D, Chloride 94 L, Carbon Dioxide 37 H, Anion Gap 6.1, BUN 17 D, Creatinine 0.90, Estimated Creat Clear 45, Estimated GFR 62, Est GFR ( Amer) 75, Glucose 128 H D, Calcium 8.3 L, Magnesium 1.5 L D, Total Bilirubin 0.8, AST 23 D, ALT 26, Alkaline Phosphatase 218 H, Total Protein 7.1, Albumin 3.4 L, Globulin 3.7 H, Albumin/Globulin Ratio 0.9 L I & O for Last 24 hours: Intake & Output 11/03/24 11/04/24 11/05/24 11/06/24 11:59 11:59 11:59 11:59 Intake Total 252.5 / 252.5 Output Total 5950 / 5950 Balance -5697.5 / -5697.5 Weight 255 lb 8.252 oz Constitutional Constitutional: no acute distress *Routine Respiratory Exam Respiratory: Present decreased breath sounds, rales, rhonchi and wheezes *Routine Cardiovascular Exam Cardiovascular: Present irregularly irregular *Routine Extremities Exam Extremities: Present edema *Routine Neurological Exam Neurological: Present alert, oriented X3 and CN II-XII intact Meds Home Medications and Allergies Home Medications ?Medication ?Instructions ?Recorded ?Confirmed ?Type acetaminophen 500 mg tablet 1,000 mg PO Q6H PRN Mild Pain 05/09/24 11/05/24 History (Tylenol Extra Strength) (Scale Score 1-4) zolpidem 5 mg tablet (Ambien) 5 mg PO HS PRN sleep #30 tabs 08/26/24 11/05/24 Rx nystatin 100,000 unit/gram topical 1 applic topical BID PRN 09/30/24 11/05/24 History powder Excoriation apixaban 5 mg tablet (Eliquis) 5 mg PO BID 10/17/24 11/05/24 History aspirin 81 mg tablet,delayed 81 mg PO DAILY 10/17/24 11/05/24 History release duloxetine 60 mg capsule,delayed 60 mg PO DAILY 10/17/24 11/05/24 History release famotidine 20 mg tablet 20 mg PO DAILY 10/17/24 11/05/24 History melatonin 5 mg tablet 5 mg PO HS 10/17/24 11/05/24 History nortriptyline 25 mg capsule 25 mg PO HS 10/17/24 11/05/24 History sennosides 8.6 mg-docusate sodium 1 tab PO DAILY 10/17/24 11/05/24 History 50 mg tablet (Senexon-S) bumetanide 1 mg tablet 2 mg PO DAILY 10/18/24 11/05/24 History ferrous sulfate 325 mg (65 mg 325 mg PO Q48H 10/18/24 11/05/24 History iron) tablet (Feosol) metoprolol succinate 25 mg 25 mg PO DAILY 10/18/24 11/05/24 History tablet,extended release 24 hr polyethylene glycol 3350 17 gram 17 g PO DAILYP PRN Constipation 30 10/23/24 11/05/24 Rx oral powder packet (HealthyLax) days #30 ea ipratropium 0.5 mg-albuterol 3 mg 1 ml inhalation Q6HP PRN soa 11/05/24 11/05/24 History (2.5 mg base)/3 mL nebulization soln macitentan 10 mg tablet (Opsumit) 10 mg PO DAILY 11/05/24 11/05/24 History ondansetron HCl 8 mg tablet 4 mg PO Q8HP PRN Nausea And 11/05/24 11/05/24 History Vomiting New Prescriptions to Start Prescriptions: Allergies Allergy/AdvReac Type Severity Reaction Status Date / Time levofloxacin Allergy Verified 10/02/24 10:58 meperidine Allergy Verified 10/02/24 10:58 Assessment and Plan *Assessment and plan (1) Primary pulmonary hypertension: Status: Chronic Category: Medical Code(s): I27.0 - Primary pulmonary hypertension (2) Acute on chronic right heart failure: Status: Acute Category: Medical Code(s): I50.813 - Acute on chronic right heart failure (3) Acute and chronic respiratory failure with hypoxia: Status: Acute Category: Medical Code(s): J96.21 - Acute and chronic respiratory failure with hypoxia (4) Atrial fibrillation: Status: Chronic Qualifiers: Atrial fibrillation type: longstanding persistent Qualified Code(s): I48.11 - Longstanding persistent atrial fibrillation Category: Medical Code(s): I48.91 - Unspecified atrial fibrillation (5) Diabetes mellitus type 2 in obese: Status: Chronic Category: Medical Code(s): E11.69 - Type 2 diabetes mellitus with other specified complication; E66.9 - Obesity, unspecified (6) Chronic anticoagulation: Status: Chronic Category: Medical Code(s): Z79.01 - FDC (current) use of anticoagulants (7) Extreme obesity: Status: Acute Category: Medical Code(s): E66.9 - Obesity, unspecified (8) Asplenia: Status: Chronic Category: Medical Code(s): Q89.01 - Asplenia (congenital) (9) Acute on chronic anemia: Status: Acute Category: Medical Code(s): D64.9 - Anemia, unspecified Plan 1. Primary pulmonary hypertension with acute on chronic right heart failure/cor pulmonale -Continue IV diuretics -Resume macitentan per pulmonary recommendations -Sleep study scheduled for next month -Elevated LFTs felt secondary to hepatic congestion, improving with diuresis 2. Chronic atrial fibrillation with chronic anemia (recent hemoglobin around 8 but as high as 12 in July 2024) -On Eliquis therapy -Currently rate controlled on no medication but will resume low-dose metoprolol if needed and blood pressure allows -Would not be a candidate for endoscopy due to almost certain need for intubation which would be almost impossible to extubate -transfuse to keep Hgb >7.5 -will refer for Watchman consideration as outpatient 3. Recent pneumonia -Patient now on piperacillin/tazobactam and vancomycin 4. Hypokalemia -Replacement has been ordered 5. Nonobstructive CAD -Stop aspirin due worsening anemia and ongoing need for anticoagulation for a. fib -Resume statin therapy when LFTs back to normal. Will stop aspirin due to worsening anemia over the last 3 months (hgb dropping from 12 down to 8) Transfuse to keep Hgb > 7.5 No plans for further testing
--- NOTE | 2024-11-06 12:16 | P.PN_ITS ---
Subjective *Date: 11/06/24 *Time: 12:16 Interval history: States he is feeling better this morning, still has mild accessory muscle usage with breathing. Good response to diuretics with -4 L of output. Blood pressures remain appropriate with systolics 90s to low 100s Medical Exam Vital signs and Labs for Last 24 Hours: Vital Signs Temp Pulse Pulse Resp BP BP Pulse Ox 11/06/24 11:38 98.2 F 83 20 101/59 L 93 L 11/06/24 08:00 80 11/06/24 08:00 11/06/24 08:00 99.3 F 95 H 18 119/63 97 11/06/24 06:44 11/06/24 05:00 11/06/24 04:00 70 11/06/24 04:00 98.2 F 81 16 97/58 L 95 11/06/24 03:00 11/06/24 01:00 11/06/24 00:00 70 11/06/24 00:00 98 F 71 16 96/76 L 98 11/05/24 23:00 11/05/24 20:00 70 11/05/24 20:00 98.3 F 92 H 20 125/69 98 11/05/24 18:29 98.6 F 98 H 18 140/75 96 11/05/24 18:11 98.0 F 86 19 117/68 11/05/24 17:36 11/05/24 17:00 86 17 117/68 98 11/05/24 16:50 84 20 120/60 100 11/05/24 14:37 98.8 F 101 H 22 147/68 H 88 L O2 Del Method O2 Flow Rate FiO2 11/06/24 11:38 Nasal Cannula 2 11/06/24 08:00 11/06/24 08:00 Nasal Cannula 2 11/06/24 08:00 Nasal Cannula 11/06/24 06:44 Nasal Cannula 2 11/06/24 05:00 Nasal Cannula 2 11/06/24 04:00 11/06/24 04:00 Nasal Cannula 2 11/06/24 03:00 Nasal Cannula 2 11/06/24 01:00 Nasal Cannula 2 11/06/24 00:00 11/06/24 00:00 Nasal Cannula 2 11/05/24 23:00 Nasal Cannula 2 11/05/24 20:00 11/05/24 20:00 Nasal Cannula 2 11/05/24 18:29 Nasal Cannula 2 11/05/24 18:11 Nasal Cannula 2 11/05/24 17:36 Nasal Cannula 2 11/05/24 17:00 Nasal Cannula 2 11/05/24 16:50 Nasal Cannula 2 11/05/24 14:37 Room Air Intake and Output 11/05/24 11/06/24 11/06/24 23:59 07:59 15:59 Intake Total 202.5 / 252.5 50 / 50 Output Total 1025 / 1725 3100 / 4925 1825 / 4925 Balance -822.5 / -1472.5 -3050 / -4875 -1825 / -4875 Intake: Intake, Total IV Amount 202.5 / 252.5 50 / 50 Piperacillin/Tazo 3.375 gm In 0 50 / 50 .9 % Sodium Chloride 50 ml @ 100 mls/hr IV Q6H [facility] Rx#: [id number] Pipercillin/Tazo 3.375 gm In 0. 50 / 50 9 % Sodium Chloride 50 ml @ 100 mls/hr IV Q6H [facility] Rx#: [id number] Vancomycin/Water For Inj (Peg) 152.5 / 152.5 1.5 gm In 300 ml @ 150 mls/hr IV ONCE ONE Rx#:[id number] Output: Output, Urine Amount 1025 / 1725 3100 / 4925 1825 / 4925 Other: Number of Unmeasured Voids 2 2 0 Weight 115.9 kg 115.9 kg 115.9 kg Patient Weight 11/06/24 23:59 Weight 115.9 kg Laboratory Results - last 24 hr 11/05/24 14:39: WBC 11.2 H, RBC 3.54 L, Hgb 8.2 L, Hct 27.5 L, MCV 77.7 L, MCH 23.2 L, MCHC 29.8 L, RDW 26.0 H*, Plt Count 526 H, MPV 10.3, Neut % (Auto) 65.6, Lymph % (Auto) 11.1, [place] % (Auto) 18.8 H, Eos % (Auto) 3.1, Baso % (Auto) 1.0, Neut # (Auto) 7.4, Lymph # (Auto) 1.2, [place] # (Auto) 2.1 H, Eos # (Auto) 0.4, Baso # (Auto) 0.1, Total Counted 100, Neutrophils % (Manual) 66, Band Neutrophils % 1.0, Lymphocytes % (Manual) 10, Monocytes % (Manual) 21 H, Eosinophils % (Manual) 2, Platelet Estimate Moderate increase, RBC Morphology Normal, Sodium 134 L, Potassium 4.0, Chloride 97 L, Carbon Dioxide 32 H, Anion Gap 9.0, BUN 23 H, Creatinine 1.00, Estimated Creat Clear 83, Estimated GFR 55 L , Est GFR ( Amer) 66, Glucose 182 H, Lactate 2.6 H, Calcium 8.5, Magnesium 1.7, Total Bilirubin 0.8, AST 37 H, ALT 32, Alkaline Phosphatase 243 H , Troponin I 0.02, NT-Pro-B Natriuret Pep 5850 H, Total Protein 7.5, Albumin 3.7, Globulin 3.8 H, Albumin/Globulin Ratio 1.0 L 11/05/24 14:54: SARS-CoV-2 (PCR) Not detected, Influenza A Untype (PCR) Not detected, Influenza Type B (PCR) Not detected 11/05/24 15:28: Urine Color Yellow, Urine Appearance Clear, Urine pH 5.5, Ur Specific [place] 1.020, Urine Protein Negative, Urine Glucose (UA) Negative, Urine Ketones Negative, Urine Blood 1+ A, Urine Nitrate Negative, Urine Bilirubin Negative, Urine Urobilinogen 0.2, Ur Leukocyte Esterase Negative, Urine RBC 5-10, Urine WBC 3-5, Ur Squamous Epith Cells 20-50, Urine Bacteria 2+ 11/05/24 18:57: Lactate 1.5, Troponin I 0.02 11/05/24 19:53: POC Glucose 219 H 11/06/24 05:18: WBC 12.6 H, RBC 3.53 L, Hgb 7.9 L, Hct 27.7 L, MCV 78.5 L, MCH 22.4 L, MCHC 28.5 L, RDW 26.2 H*, Plt Count 457 H, MPV 10.2, Neut % (Auto) 68.1, Lymph % (Auto) 7.9 L, [place] % (Auto) 18.4 H, Eos % (Auto) 4.2, Baso % (Auto) 1.0, Neut # (Auto) 8.6 H, Lymph # (Auto) 1.0, [place] # (Auto) 2.3 H, Eos # (Auto) 0.5 H , Baso # (Auto) 0.1, Total Counted 100, Neutrophils % (Manual) 72, Lymphocytes % (Manual) 7 L, Monocytes % (Manual) 18 H, Eosinophils % (Manual) 3, Platelet Estimate Normal, RBC Morphology Normal, Sodium 134 L, Potassium 3.1 L D, Chloride 94 L, Carbon Dioxide 37 H, Anion Gap 6.1, BUN 17 D, Creatinine 0.90, Estimated Creat Clear 45, Estimated GFR 62, Est GFR ( Amer) 75, Glucose 128 H D, Calcium 8.3 L, Magnesium 1.5 L D, Total Bilirubin 0.8, AST 23 D, ALT 26, Alkaline Phosphatase 218 H, Total Protein 7.1, Albumin 3.4 L, Globulin 3.7 H , Albumin/Globulin Ratio 0.9 L I & O for Labs for Last 24 Hours: Intake & Output 11/03/24 11/04/24 11/05/24 11/06/24 23:59 23:59 23:59 23:59 Intake Total 202.5 / 252.5 50 / 50 Output Total 1025 / 1725 4925 / 4925 Balance -822.5 / -1472.5 -4875 / -4875 Weight 115.9 kg 115.9 kg Constitutional: Present mild distress, obese, chronically ill appearing and cooperative Head: Present atraumatic and normocephalic ENT: Present normal exam Neck: Present normal inspection Respiratory: Present accessory muscle use, rhonchi, distant breath sounds and diminished air movement; Absent wheezes or crackles Cardiac: Present Reg Rate and Rhythm and Audible Murmur Comment:: Frequent PVCs GI: Present soft and normal bowel sounds; Absent distention or tenderness Extremities: Present normal inspection and full ROM; Absent edema (Bilateral stasis dermatitis) Skin: Present intact and wounds; Absent erythema Neuro: Present Grossly Intact, alert, awake, oriented x 3 and moves all extremities Assessment and Plan *Assessment and plan (1) (HFpEF) heart failure with preserved ejection fraction: Status: Acute Qualifiers: Heart failure chronicity: acute on chronic Qualified Code(s): I50.33 - Acute on chronic diastolic (congestive) heart failure Category: Medical Code(s): I50.30 - Unspecified diastolic (congestive) heart failure (2) Cor pulmonale: Status: Acute Category: Medical Code(s): I27.81 - Cor pulmonale (chronic) (3) Primary pulmonary hypertension: Status: Chronic Category: Medical Code(s): I27.0 - Primary pulmonary hypertension (4) Hypertension: Status: Chronic Category: Medical Code(s): I10 - Essential (primary) hypertension (5) Asplenia: Status: Chronic Category: Medical Code(s): Q89.01 - Asplenia (congenital) (6) Severe tricuspid regurgitation: Status: Chronic Category: Medical Code(s): I07.1 - Rheumatic tricuspid insufficiency (7) Diabetes mellitus type 2 in obese: Status: Chronic Category: Medical Code(s): E11.69 - Type 2 diabetes mellitus with other specified complication; E66.9 - Obesity, unspecified (8) Obesity: Problem Comment: Class II Status: Chronic Qualifiers: Obesity type: due to excess calories Obesity classification: adult class 1 (BMI 30 - 34.9) Serious obesity comorbidity presence: with serious comorbidity Body mass index: BMI 31.0-31.9 Qualified Code(s): E66.09 - Other obesity due to excess calories; Z68.31 - Body mass index [BMI] 31.0-31.9, adult Category: Medical Code(s): E66.9 - Obesity, unspecified (9) Atrial fibrillation: Status: Chronic Qualifiers: Atrial fibrillation type: longstanding persistent Qualified Code(s): I48.11 - Longstanding persistent atrial fibrillation Category: Medical Code(s): I48.91 - Unspecified atrial fibrillation Plan Rica Flannery is a 69-year-old female with a medical history significant for severe right heart failure/cor pulmonale from pulmonary hypertension, asplenia, paroxysmal A-fib, CAD, type 2 diabetes, anxiety/depression, GERD presents with dyspnea, rhonchorous cough, increased swelling in her legs and weight gain. P resented from [place]. In the ER, found to have significant volume overload and new oxygen requirement of 2 L. Discussed case with ER physician, request admission for diuresis and further management of her acute on chronic HFpEF and pulmonary hypertension. I decided to admit to medicine for further management. Will initiate on Bumex drip. Pulmonology and cardiology consulted to evaluate the patient in the morning. Necessitating inpatient care, risk for decompensation. Anticipate patient will be admitted for at least 2 midnights. Responding well to diuretics. Problems addressed as follows: # Pulmonary hypertension with cor pulmonale # Severe RV failure with cor pulmonale # Severe tricuspid regurgitation # Acute on chronic HFpEF #Medication side effect ? Patient has underlying pulmonary hypertension with concomitant cor pulmonale, possibly related to undiagnosed sleep apnea versus history of hypertension. - Reviewed right and left heart cath from [place], Consistent with primary pulmonary hypertension. Right heart failure severe. Pulmonary artery pressures equal to systemic pressures. ?Was previously started on tadalafil, macitentan. At last discharge continued macitentan. Missed this for several days due to difficulty getting it at the intermediate. Will continue during admission if pressures tolerate. - Discussed case with cardiology, recommend continuing diuretics. Resume macitentan per pulmonary recommendations. Having good response. --4 L since admission. Kidney function stable this morning with BUN 17, creatinine 0.9. - Potassium 3.1, magnesium 1.5, replacing per protocol - Continue Bumex drip at 0.5 mg/h. Repeat CBC, CMP, magnesium ordered for the morning. Will obtain BMP this afternoon to monitor kidney function stability and potassium given aggressive diuresis - Pulmonology to evaluate - Goal sats greater than 90%, currently on 1.5 L. 84% on room air this morning. - White count 12.6. Platelets 457. Hemoglobin 7.9. ? ECHO August 2024 shows markedly elevated RVSP >60 mmHg, severe RV dilatation with failure. EF preserved ? Has underlying pulmonary hypertension, has not been evaluated for sleep apnea or sleep study. Has one scheduled for November 2024. # Iron deficient anemia: Anemia stable with hemoglobin 8. MCV 77. Venofer 300 mg IV once this morning #History of asplenia: Monitor closely for infection. Continuing vancomycin and Zosyn that were empirically started in the ER. If cultures negative, will discontinue after 48 hours. #Physical deconditioning #Depression ? Patient's recently. Had gone to rehab for therapy. Was participating well with PT and OT. Will reconsult PT and OT while admitted. ? Mood stable, continue home duloxetine 60 mg daily, nortriptyline 25 mg daily. - Melatonin 5 mg nightly for sleep Chronic medical problems: #Paroxysmal A-fib: Currently rate controlled. Continue home Eliquis 5 mg twice daily. Hold home metoprolol due to hypotension. #CAD: Continue home aspirin, hold statin with aggressive diuresis. DNR/DNI DVT prophylaxis: Eliquis Cardiac diet
[2024-11-06] MEDS: BUMETANIDE 10 MG in 0.9 % SODIUM CHLORIDE 60 ML 5 MG IV (15:08)
[2024-11-06 18:13] LABS: Chloride 89 mmol/L (98-107); Potassium 3.5 mmoL/L (3.5-5.1); Sodium 136 mmol/L (136-145)
[2024-11-06 18:16] LABS: Anion Gap 11.5 mEq/L (5-15); Blood Urea Nitrogen 17 mg/dl (7-17); Calcium 8.6 mg/dl (8.4-10.2); Carbon Dioxide 39 mmol/L (22.0-30.0); Creatinine Clearance Estimated 45 mL/min (50-200); Creatinine,Serum 1.00 mg/dl (0.52-1.04); Estimated Glomerular Filt Rate 55 ml/min (>60); GFR (African American) 66 ML/MIN (>60); Glucose 148 mg/dl (74-100); Magnesium 2.1 mg/dl (1.6-2.3)
[2024-11-06] MEDS: PANTOPRAZOLE 40MG TABLET 40 MG PO (20:09)
[2024-11-06] MEDS: MELATONIN 5MG TABLET 5 MG PO (20:09)
[2024-11-07] VITALS (18 sets, daily range): BP systolic 86–121; BP diastolic 45–70; PULSE 70–90; RESP 16–20; TEMP 36.4–37.1; O2SAT 90–96; BMI 43.0
[2024-11-07] MEDS: VANCOMYCIN/WATER FOR INJ (PEG) 1.75 GM/350 ML PIGGYBACK IV ×2 (02:58→21:14)
[2024-11-07] MEDS: PIPERCILLIN/TAZO 3.375 GM in 0.9 % SODIUM CHLORIDE 50 ML IV ×3 (05:03→16:32)
[2024-11-07 05:57] LABS: Hematocrit 27.0 % (37.0-47.0); Hemoglobin 7.5 g/dL (12.2-16.2); Immature Granulocytes % 0.5 %; Mean Corpuscular HGB Conc 27.8 g/dL (31.8-35.4); Mean Corpuscular Hemoglobin 22.2 pg (27.0-31.2); Mean Corpuscular Volume 79.9 fl (81-99); Nucleated Red Blood Cells % 0.5 %; Platelet Count 446 K/mm3 (142-424); Red Blood Count 3.38 M/mm3 (4.20-5.40); Red Cell Distribution Width-SD 72.6 fL; White Blood Count 12.7 K/mm3 (4.8-10.8)
[2024-11-07 05:58] LABS: Alanine Aminotransferase 21 U/L (12-78); Albumin Level 3.2 g/dl (3.5-5.0); Albumin/Globulin Ratio 0.9 (1.1-1.8); Alkaline Phosphatase 209 U/L (38-126); Anion Gap 6.7 mEq/L (5-15); Aspartate Amino Transferase 22 U/L (14-36); Bilirubin,Total 0.6 mg/dl (0.2-1.3); Blood Urea Nitrogen 15 mg/dl (7-17); Calcium 8.5 mg/dl (8.4-10.2); Carbon Dioxide 38 mmol/L (22.0-30.0); Chloride 93 mmol/L (98-107); Creatinine Clearance Estimated 45 mL/min (50-200); Creatinine,Serum 0.90 mg/dl (0.52-1.04); Estimated Glomerular Filt Rate 62 ml/min (>60); GFR (African American) 75 ML/MIN (>60); Globulin 3.6 g/dL (1.3-3.2); Glucose 114 mg/dl (74-100); Magnesium 1.9 mg/dl (1.6-2.3); Potassium 3.7 mmoL/L (3.5-5.1); Sodium 134 mmol/L (136-145); Total Protein,Serum 6.8 g/dl (6.3-8.2)
[2024-11-07 07:07] LABS: Total Cells Counted 100
[2024-11-07 07:09] LABS: Anisocytosis 1+; Ovalocytes 1+
[2024-11-07] MEDS: APIXABAN 5MG TABLET 5 MG PO (09:20)
[2024-11-07] MEDS: BUMETANIDE 1MG/4ML VIAL 1 MG IV (09:21)
[2024-11-07] MEDS: FAMOTIDINE 20MG TABLET 20 MG PO (09:21)
[2024-11-07] MEDS: POLYETHYLENE GLYCOL 3350 17 GM PACKET PO (09:22)
[2024-11-07] MEDS: MACITENTAN 10 MG 10 EACH PO (10:49)
--- NOTE | 2024-11-07 11:44 | P.PN_ITS ---
Subjective Subjective Date: 11/07/24 Time: 11:45 Principal diagnosis: Pulmonary hypertension/cor pulmonale with acute exacerbation Interval history: 69-year-old white female in bedside chair in no acute distress. Productive cough noted Patient relates lower extremity edema and shortness of breath is improved. Exam Data for Last 24 hours Vital signs and Labs for Last 24 Hours: Temp Pulse Resp BP Pulse Ox O2 Del Method O2 Flow Rate 98.3 F 82 16 114/45 L 90 L Nasal Cannula 2 11/07/24 08:00 11/07/24 08:00 11/07/24 08:00 11/07/24 08:00 11/07/24 08:00 11/07/24 08:00 11/07/24 08:00 FiO2 2 11/05/24 17:36 Laboratory Results - last 24 hr 11/05/24 15:28: Urine Color Yellow, Urine Appearance Clear, Urine pH 5.5, Ur Specific [place] 1.020, Urine Protein Negative, Urine Glucose (UA) Negative, Urine Ketones Negative, Urine Blood 1+ A, Urine Nitrate Negative, Urine Bilirubin Negative, Urine Urobilinogen 0.2, Ur Leukocyte Esterase Negative, Urine RBC 5-10, Urine WBC 3-5, Ur Squamous Epith Cells 20-50, Urine Bacteria 2+ 11/06/24 17:32: Sodium 136, Potassium 3.5, Chloride 89 L, Carbon Dioxide 39 H, Anion Gap 11.5, BUN 17, Creatinine 1.00, Estimated Creat Clear 45, Estimated GFR 55 L, Est GFR ( Amer) 66, Glucose 148 H, Calcium 8.6, Magnesium 2.1 D 11/07/24 05:30: WBC 12.7 H, RBC 3.38 L, Hgb 7.5 L, Hct 27.0 L, MCV 79.9 L, MCH 22.2 L, MCHC 27.8 L, RDW 26.0 H*, Plt Count 446 H, MPV 9.9, Neut % (Auto) 58.6, Lymph % (Auto) 13.2, [place] % (Auto) 18.4 H, Eos % (Auto) 8.1, Baso % (Auto) 1.2, Neut # (Auto) 7.4, Lymph # (Auto) 1.7, [place] # (Auto) 2.3 H, Eos # (Auto) 1.0 H, Baso # (Auto) 0.2, Total Counted 100, Neutrophils % (Manual) 54, Lymphocytes % (Manual) 19, Monocytes % (Manual) 16 H, Eosinophils % (Manual) 11 H, Platelet E stimate Normal, Anisocytosis 1+, Ovalocytes 1+, Sodium 134 L, Potassium 3.7, Chloride 93 L, Carbon Dioxide 38 H, Anion Gap 6.7, BUN 15, Creatinine 0.90, Estimated Creat Clear 45, Estimated GFR 62, Est GFR ( Amer) 75, Glucose 114 H D, Calcium 8.5, Magnesium 1.9, Total Bilirubin 0.6, AST 22, ALT 21, Alkaline Phosphatase 209 H, Total Protein 6.8, Albumin 3.2 L, Globulin 3.6 H, Albumin/Globulin Ratio 0.9 L I & O for Last 24 hours: Intake & Output 11/04/24 11/05/24 11/06/24 11/07/24 11:59 11:59 11:59 11:59 Intake Total 302.5 / 302.5 1888.750 / 1888.750 Output Total 5950 / 5950 2550 / 2550 Balance -5647.5 / -5647.5 -661.250 / -661.250 Weight 255 lb 8.252 oz 251 lb 12.286 oz Microbiology Reports for the Last 24 Hours: Microbiology 11/05/24 15:28 Urine,Clean Catch Urine Culture - Preliminary Gram Positive Cocci 11/05/24 15:15 Blood Blood Culture - Preliminary NO GROWTH AFTER 24 HOURS 11/05/24 14:55 Blood Blood Culture - Preliminary NO GROWTH AFTER 24 HOURS Constitutional Constitutional: no acute distress *Routine Respiratory Exam Respiratory: Present decreased breath sounds, rhonchi and wheezes *Routine Cardiovascular Exam Cardiovascular: Present RRR and murmur; Absent gallop or rubs *Routine Extremities Exam Extremities: Present edema Progress Note: A&P Assessment and plan (1) Primary pulmonary hypertension: Status: Chronic (2) Acute on chronic right heart failure: Status: Acute (3) Acute and chronic respiratory failure with hypoxia: Status: Acute (4) Atrial fibrillation: Status: Chronic (5) Diabetes mellitus type 2 in obese: Status: Chronic (6) Chronic anticoagulation: Status: Chronic (7) Extreme obesity: Status: Acute (8) Asplenia: Status: Chronic (9) Acute on chronic anemia: Status: Acute Assessment and Plan Assessment and Plan for All Diagnoses:: 1. Primary pulmonary hypertension with acute on chronic right heart failure/cor pulmonale -Continue IV diuretics -Resume macitentan per pulmonary recommendations -Sleep study scheduled for next month -Elevated LFTs felt secondary to hepatic congestion, improving with diuresis 2. Chronic atrial fibrillation with chronic anemia (recent hemoglobin around 8 but as high as 12 in July 2024) -On Eliquis therapy -Currently rate controlled on no medication but will resume low-dose metoprolol if needed and blood pressure allows -not be a candidate for endoscopy due to almost certain need for intubation which would be almost impossible to extubate -transfuse to keep Hgb >7.5 -will refer for [facility] consideration as outpatient 3. Recent pneumonia -Patient now on piperacillin/tazobactam and vancomycin 4. Hypokalemia -Resolved on replacement 5. Nonobstructive CAD -Stop aspirin due worsening anemia and ongoing need for anticoagulation for a. fib -Resume statin therapy when LFTs back to normal. She has diuresed over 6 liters this admission with normal renal functions. Hgb down to 7.5 today, will need transfusion and continued diuresis. Nothing further to add. Follow up in clinic as scheduled next week.
--- NOTE | 2024-11-07 13:26 | EXP.ACUTE.PN ---
Subjective *Date: 11/07/24 *Time: 18:45 Interval history: Feeling somewhat better today, -6.7 L since admission. On 1/2 L oxygen. No nausea or vomiting. Kidney function stable. Will remove catheter today. Afebrile Medical Exam Vital signs and Labs for Last 24 Hours: Vital Signs Temp Pulse Pulse Resp BP Pulse Ox O2 Del Method 11/07/24 12:00 98.1 F 76 18 104/61 L 91 L Nasal Cannula 11/07/24 11:00 Nasal Cannula 11/07/24 09:00 Nasal Cannula 11/07/24 08:00 Nasal Cannula 11/07/24 08:00 90 11/07/24 08:00 98.3 F 82 16 114/45 L 90 L Nasal Cannula 11/07/24 06:55 Nasal Cannula 11/07/24 05:00 Nasal Cannula 11/07/24 04:00 98.5 F 72 18 115/62 95 Nasal Cannula 11/07/24 04:00 80 11/07/24 03:00 Nasal Cannula 11/07/24 01:00 Nasal Cannula 11/07/24 00:00 70 11/07/24 00:00 97.6 F 88 18 100/57 L 95 Nasal Cannula 11/06/24 23:00 Nasal Cannula 11/06/24 21:00 Nasal Cannula 11/06/24 20:00 80 11/06/24 20:00 Nasal Cannula 11/06/24 20:00 98.2 F 83 18 99/70 L 95 Nasal Cannula 11/06/24 16:30 Nasal Cannula 11/06/24 16:00 80 11/06/24 16:00 98.2 F 88 16 119/66 92 L Nasal Cannula 11/06/24 15:00 Nasal Cannula O2 Flow Rate 11/07/24 12:00 2 11/07/24 11:00 1.5 11/07/24 09:00 1.5 11/07/24 08:00 2 11/07/24 08:00 11/07/24 08:00 2 11/07/24 06:55 1.5 11/07/24 05:00 2 11/07/24 04:00 2 11/07/24 04:00 11/07/24 03:00 2 11/07/24 01:00 2 11/07/24 00:00 11/07/24 00:00 3 11/06/24 23:00 3 11/06/24 21:00 3 11/06/24 20:00 11/06/24 20:00 3 11/06/24 20:00 2 11/06/24 16:30 2 11/06/24 16:00 11/06/24 16:00 2 11/06/24 15:00 Intake and Output 11/06/24 11/07/24 11/07/24 23:59 07:59 15:59 Intake Total 937 / 1229.167 400 / 810 410 / 810 Output Total 1000 / 6525 950 / 950 Balance -63 / -5295.833 -550 / -140 410 / -140 Intake: Intake, Oral Amount 150 / 150 360 / 360 Intake, Total IV Amount 787 / 1079.167 400 / 450 50 / 450 Bumetanide 10 mg In 0.9 % 22 / 114.167 Sodium Chloride 60 ml @ 5 mls/ hr IV .Q20H [facility] [place] Rx#:[id number] Iron Sucrose Complex 300 mg In 265 / 265 0.9 % Sodium Chloride 250 ml @ 220 mls/hr IV ONCE ONE Rx#: [id number] Magnesium Sulfate in Water 2 gm 50 / 100 In 50 ml @ 50 mls/hr IV Q1H [facility] [place] Rx#:[id number] Pipercillin/Tazo 3.375 gm In 0. 100 / 250 50 / 100 50 / 100 9 % Sodium Chloride 50 ml @ 100 mls/hr IV Q6H [facility] [place] Rx#:[id number] Vancomycin/Water For Inj (Peg) 350 / 350 350 / 350 1.75 gm In 350 ml @ 175 mls/hr IV Q18H [facility] [place] Rx#:[id number] Output: Output, Urine Amount 1000 / 6525 950 / 950 Other: Number of Unmeasured Voids 0 Weight 114.2 kg Patient Weight 11/07/24 23:59 Weight 114.2 kg Laboratory Results - last 24 hr 11/05/24 15:28: Urine Color Yellow, Urine Appearance Clear, Urine pH 5.5, Ur Specific [place] 1.020, Urine Protein Negative, Urine Glucose (UA) Negative, Urine Ketones Negative, Urine Blood 1+ A, Urine Nitrate Negative, Urine Bilirubin Negative, Urine Urobilinogen 0.2, Ur Leukocyte Esterase Negative, Urine RBC 5-10, Urine WBC 3-5, Ur Squamous Epith Cells 20-50, Urine Bacteria 2+ 11/06/24 17:32: Sodium 136, Potassium 3.5, Chloride 89 L, Carbon Dioxide 39 H, Anion Gap 11.5, BUN 17, Creatinine 1.00, Estimated Creat Clear 45, Estimated GFR 55 L, Est GFR ( Amer) 66, Glucose 148 H, Calcium 8.6, Magnesium 2.1 D 11/07/24 05:30: WBC 12.7 H, RBC 3.38 L, Hgb 7.5 L, Hct 27.0 L, MCV 79.9 L, MCH 22.2 L, MCHC 27.8 L, RDW 26.0 H*, Plt Count 446 H, MPV 9.9, Neut % (Auto) 58.6, Lymph % (Auto) 13.2, [place] % (Auto) 18.4 H, Eos % (Auto) 8.1, Baso % (Auto) 1.2, Neut # (Auto) 7.4, Lymph # (Auto) 1.7, [place] # (Auto) 2.3 H, Eos # (Auto) 1.0 H, Baso # (Auto) 0.2, Total Counted 100, Neutrophils % (Manual) 54, Lymphocytes % (Manual) 19, Monocytes % (Manual) 16 H, Eosinophils % (Manual) 11 H, Platelet Estimate Normal, Anisocytosis 1+, Ovalocytes 1+, Sodium 134 L, Potassium 3.7, Chloride 93 L, Carbon Dioxide 38 H, Anion Gap 6.7, BUN 15, Creatinine 0.90, Estimated Creat Clear 45, Estimated GFR 62, Est GFR ( Amer) 75, Glucose 114 H D, Calcium 8.5, Magnesium 1.9, Total Bilirubin 0.6, AST 22, ALT 21, Alkaline Phosphatase 209 H, Total Protein 6.8, Albumin 3.2 L, Globulin 3.6 H, Albumin/Globulin Ratio 0.9 L, Blood Type Confirm O Positive 11/07/24 12:17: Blood Type O Positive, Antibody Screen Negative, Crossmatch (G) See Detail I & O for Labs for Last 24 Hours: Intake & Output 11/04/24 11/05/24 11/06/24 11/07/24 23:59 23:59 23:59 23:59 Intake Total 202.5 / 252.5 1229.167 / 1229.167 810 / 810 Output Total 1025 / 1725 6525 / 6525 950 / 950 Balance -822.5 / -1472.5 -5295.833 / -5295.833 -140 / -140 Weight 115.9 kg 115.9 kg 114.2 kg Microbiology Reports for the Last 24 Hours: Microbiology 11/05/24 15:28 Urine,Clean Catch Urine Culture - Preliminary Gram Positive Cocci 11/05/24 15:15 Blood Blood Culture - Preliminary NO GROWTH AFTER 24 HOURS 11/05/24 14:55 Blood Blood Culture - Preliminary NO GROWTH AFTER 24 HOURS Constitutional: Present mild distress, obese, chronically ill appearing and cooperative Head: Present atraumatic and normocephalic ENT: Present normal exam Neck: Present normal inspection Respiratory: Present accessory muscle use, rhonchi, distant breath sounds and diminished air movement; Absent wheezes or crackles Cardiac: Present Reg Rate and Rhythm and Audible Murmur Comment:: Frequent PVCs GI: Present soft and normal bowel sounds; Absent distention or tenderness Extremities: Present normal inspection and full ROM; Absent edema (Bilateral stasis dermatitis; edema appears resolved) Skin: Present intact and wounds; Absent erythema Neuro: Present Grossly Intact, alert, awake, oriented x 3 and moves all extremities Assessment and Plan *Assessment and plan (1) (HFpEF) heart failure with preserved ejection fraction: Status: Acute Qualifiers: Heart failure chronicity: acute on chronic Qualified Code(s): I50.33 - Acute on chronic diastolic (congestive) heart failure Category: Medical Code(s): I50.30 - Unspecified diastolic (congestive) heart failure (2) Cor pulmonale: Status: Acute Category: Medical Code(s): I27.81 - Cor pulmonale (chronic) (3) Primary pulmonary hypertension: Status: Chronic Category: Medical Code(s): I27.0 - Primary pulmonary hypertension (4) Hypertension: Status: Chronic Category: Medical Code(s): I10 - Essential (primary) hypertension (5) Asplenia: Status: Chronic Category: Medical Code(s): Q89.01 - Asplenia (congenital) (6) Severe tricuspid regurgitation: Status: Chronic Category: Medical Code(s): I07.1 - Rheumatic tricuspid insufficiency (7) Diabetes mellitus type 2 in obese: Status: Chronic Category: Medical Code(s): E11.69 - Type 2 diabetes mellitus with other specified complication; E66.9 - Obesity, unspecified (8) Obesity: Problem Comment: Class II Status: Chronic Qualifiers: Body mass index: BMI 31.0-31.9 Obesity classification: adult class 1 (BMI 30 - 34.9) Obesity type: due to excess calories Serious obesity comorbidity presence: with serious comorbidity Qualified Code(s): E66.09 - Other obesity due to excess calories; Z68.31 - Body mass index [BMI] 31.0-31.9, adult Category: Medical Code(s): E66.9 - Obesity, unspecified (9) Atrial fibrillation: Status: Chronic Qualifiers: Atrial fibrillation type: longstanding persistent Qualified Code(s): I48.11 - Longstanding persistent atrial fibrillation Category: Medical Code(s): I48.91 - Unspecified atrial fibrillation Plan Rica Flannery is a 69-year-old female with a medical history significant for severe right heart failure/cor pulmonale from pulmonary hypertension, asplenia, paroxysmal A-fib, CAD, type 2 diabetes, anxiety/depression, GERD presents with dyspnea, rhonchorous cough, increased swelling in her legs and weight gain. Presented from [place]. In the ER, found to have significant volume overload and new oxygen requirement of 2 L. Discussed case with ER physician, request admission for diuresis and further management of her acute on chronic HFpEF and pulmonary hypertension. I decided to admit to medicine for further management. Will initiate on Bumex drip. Pulmonology and cardiology consulted to evaluate the patient in the morning. Necessitating inpatient care, risk for decompensation. Anticipate patient will be admitted for at least 2 midnights. Responding well to diuretics. Problems addressed as follows: # Pulmonary hypertension with cor pulmonale # Severe RV failure with cor pulmonale # Severe tricuspid regurgitation # Acute on chronic HFpEF #Medication side effect ? Patient has underlying pulmonary hypertension with concomitant cor pulmonale, possibly related to undiagnosed sleep apnea versus history of hypertension. - Reviewed right and left heart cath from [place], Consistent with primary pulmonary hypertension. Right heart failure severe. Pulmonary artery pressures equal to systemic pressures. ?Was previously started on tadalafil, macitentan. At last discharge continued macitentan. Missed this for several days due to difficulty getting it at the intermediate. Will continue during admission if pressures tolerate. - Discontinue Bumex drip. Transition to 1 mg PO twice daily - Having negative volume status. Continue macitentan per pulmonary recommendations. Having good response. --6.7 L since admission. -2.8 L in the past 24 hours. BUN 15, creatinine 0.9. Magnesium 1.9, potassium 3.7. - Repeat CBC, CMP, magnesium ordered for the morning - Goal sats greater than 90%, currently on 1.5 L. - White count 12.7. Platelets 446. Hemoglobin 7.5. Given her respiratory symptoms, heart failure, worsening hemoglobin in light of her significant diuresis, will transfuse 1 unit packed red blood cells today. ? ECHO August 2024 shows markedly elevated RVSP >60 mmHg, severe RV dilatation with failure. EF preserved ? Has underlying pulmonary hypertension, has not been evaluated for sleep apnea or sleep study. Has one scheduled for November 2024. # Iron deficient anemia: Anemia down to 7.5, received Venofer yesterday. Transfuse 1 unit today. Consider repeat Venofer in the morning before discharge back to facility #History of asplenia: Monitor closely for infection. Continuing vancomycin and Zosyn that were empirically started in the ER. If cultures negative, will discontinue after 48 hours. #Physical deconditioning #Depression ? Patient's recently. Had gone to rehab for therapy. Was participating well with PT and OT. Will reconsult PT and OT while admitted. ? Mood stable, continue home duloxetine 60 mg daily, nortriptyline 25 mg daily. - Melatonin 5 mg nightly for sleep Chronic medical problems: #Paroxysmal A-fib: Currently rate controlled. Continue home Eliquis 5 mg twice daily. Hold home metoprolol due to hypotension. #CAD: Continue home aspirin, hold statin with aggressive diuresis. DNR/DNI DVT prophylaxis: Anticoagulation contraindicated due to worsening anemia. SCDs Cardiac diet
[2024-11-07] MEDS: BUMETANIDE 1 MG TABLET PO (16:32)
[2024-11-07 18:08] LABS: Hematocrit 28.8 % (37.0-47.0); Hemoglobin 8.2 g/dL (12.2-16.2)
[2024-11-07 20:25] LABS: Vancomycin,Trough 18.6 ug/mL (5.0-10.0)
[2024-11-07] MEDS: PANTOPRAZOLE 40MG TABLET 40 MG PO (21:10)
[2024-11-07] MEDS: MELATONIN 5MG TABLET 5 MG PO (21:10)
[2024-11-07] MEDS: PHA TO NURSING INSTRUCTION 1 EACH NOTAPPLIC (21:11)
[2024-11-08] VITALS: BP 90/58; PULSE 80; PULSE 82; RESP 18; TEMP 36.9; O2SAT 92
[2024-11-08] MEDS: PIPERCILLIN/TAZO 3.375 GM in 0.9 % SODIUM CHLORIDE 50 ML IV ×2 (01:38→08:23)
[2024-11-08 04:00] VITALS: BP 88/63; PULSE 70; RESP 10; TEMP 36.8; O2SAT 94; BMI 43.0
[2024-11-08 06:32] LABS: Hematocrit 27.2 % (37.0-47.0); Hemoglobin 7.9 g/dL (12.2-16.2); Immature Granulocytes % 0.3 %; Mean Corpuscular HGB Conc 29.0 g/dL (31.8-35.4); Mean Corpuscular Hemoglobin 23.0 pg (27.0-31.2); Mean Corpuscular Volume 79.3 fl (81-99); Nucleated Red Blood Cells % 1.1 %; Platelet Count 430 K/mm3 (142-424); Red Blood Count 3.43 M/mm3 (4.20-5.40); Red Cell Distribution Width-SD 69.8 fL; White Blood Count 11.8 K/mm3 (4.8-10.8)
[2024-11-08 06:40] LABS: Albumin Level 3.2 g/dl (3.5-5.0); Chloride 92 mmol/L (98-107); Potassium 3.4 mmoL/L (3.5-5.1); Sodium 136 mmol/L (136-145)
[2024-11-08 06:42] LABS: Blood Urea Nitrogen 20 mg/dl (7-17); Creatinine Clearance Estimated 45 mL/min (50-200); Creatinine,Serum 0.90 mg/dl (0.52-1.04); Estimated Glomerular Filt Rate 62 ml/min (>60); GFR (African American) 75 ML/MIN (>60)
[2024-11-08 06:43] LABS: Alanine Aminotransferase 16 U/L (12-78); Albumin/Globulin Ratio 0.9 (1.1-1.8); Alkaline Phosphatase 185 U/L (38-126); Anion Gap 10.4 mEq/L (5-15); Aspartate Amino Transferase 22 U/L (14-36); Bilirubin,Total 0.7 mg/dl (0.2-1.3); Calcium 8.5 mg/dl (8.4-10.2); Carbon Dioxide 37 mmol/L (22.0-30.0); Globulin 3.4 g/dL (1.3-3.2); Glucose 174 mg/dl (74-100); Total Protein,Serum 6.6 g/dl (6.3-8.2)
--- NOTE | 2024-11-08 07:31 | EXP.DC.SUM ---
General Admission date:: 11/07/24 Discharge date: 11/08/24 HPI HPI HPI: Mrs. Flannery is a 69-year-old female with a medical history significant for severe right heart failure/cor pulmonale from pulmonary hypertension, asplenia, paroxysmal A-fib, CAD, type 2 diabetes, anxiety/depression, GERD who presented from [facility] [place], [place] with increased swelling in her legs, weight gain of at least 20 pounds over the past 2 weeks, and worsening rhonchorous cough along with new oxygen requirement. Patient was discharged from our hospital approximately 2 weeks ago to finish treatment for MRSA pneumonia after being diuresed and on pressors in the ICU to assist with diuresis due to her heart failure, pulmonary hypertension, cor pulmonale. She was on room air at that time. Needed rehab to get stronger. Was tolerating diuretics and Opsumit for her Pulmonary hypertension. Per her daughter, she was doing well for the first week working with rehab. They made some adjustments to her meds however because of her soft blood pressures which led to her starting to gain weight and have increased shortness of breath and cough starting approximately the past weekend. Denies fever, nausea or vomiting. Cough rhonchorous but not coughing anything up. Denies chest pain. Does complain of leg swelling and pain in her legs. Legs are tight and shiny. Initial labs show BNP of 5800, down from 15,000 on 10/21. White count 11.2 which is consistent with her discharge level. Hemoglobin 8.2 consistent with her known anemia from iron deficiency. Necessitating 2 L oxygen for an O2 sat of 88% on room air on arrival. Kidney function at baseline. Chest imaging showing pulmonary hypertension and what appears to be some pulmonary edema. Because of her cough and history, ER initiated vancomycin and Zosyn. Cultures obtained. Patient does not appear septic at this time. Medicine consulted for admission and further care On my evaluation, patient appears significantly more volume overloaded than when I discharged her 2 weeks ago. Has not followed with pulmonology or cardiology since discharge. Has an appointment with cardiology scheduled next week and with pulmonology in 2 weeks. States she feels okay but appears dyspneic with accessory muscle use. Daughter at bedside helps supplement history. Hospital Course Hospital Course Hospital Course: Rica Flannery is a 69-year-old female with a medical history significant for severe right heart failure/cor pulmonale from pulmonary hypertension, asplenia, paroxysmal A-fib, CAD, type 2 diabetes, anxiety/depression, GERD presents with dyspnea, rhonchorous cough, increased swelling in her legs and weight gain. Presented from [place]. In the ER, found to have significant volume overload and new oxygen requirement of 2 L. Discussed case with ER physician, request admission for diuresis and further management of her acute on chronic HFpEF and pulmonary hypertension. I decided to admit to medicine for further management. Will initiate on Bumex drip. Pulmonology and cardiology consulted to evaluate the patient in the morning. Did well during admission. Diuresed aggressively with over 7 L of negative volume status. Stable on 2 L oxygen during admission. Able to tolerate diuretics and pulmonary hypertension meds. Goal blood pressure systolic greater than 90. Please do not hold Opsumit or Bumex after returning back to nursing facility. Please give Opsumit regardless of systolic blood pressure. Stable discharge back to [facility] [facility]. Problems addressed as follows: # Pulmonary hypertension with cor pulmonale # Severe RV failure with cor pulmonale # Severe tricuspid regurgitation # Acute on chronic HFpEF #Medication side effect ? Patient has underlying pulmonary hypertension with concomitant cor pulmonale, possibly related to undiagnosed sleep apnea versus history of hypertension. - Reviewed right and left heart cath from [facility], Consistent with primary pulmonary hypertension. Right heart failure severe. Pulmonary artery pressures equal to systemic pressures. ?Was previously started on tadalafil, macitentan. At last discharge continued macitentan. Missed this for several days due to difficulty getting it at the half-way. Resumed Opsumit (macitentan) during admission. Tolerated well. Blood pressures did well with systolics in the 90s to low 100s. Continue this medication at discharge for severe pulmonary hypertension. Do not hold unless blood pressure systolic below 80. Cardiology and pulmonology assisted with care. Recommend continuing medications for pulmonary hypertension. Diuresed really well with Bumex drip. Transitioned to oral Bumex and tolerated for at least 24 hours prior to discharge. Continue 1 mg p.o. twice daily. Unfortunately patient continues to need oxygen. Goal sats greater 90%. Continue 1 to 2 L as needed for sats greater than 90. White count stable between 11 and 12 during admission. Was found to have UTI as below. Volume status appears better. Tolerating meds for her severe diastolic dysfunction and pulmonary hypertension. Stable discharge back to [facility]. ? ECHO August 2024 shows markedly elevated RVSP >60 mmHg, severe RV dilatation with failure. EF preserved ? Has underlying pulmonary hypertension, has not been evaluated for sleep apnea or sleep study. Has one scheduled for November 2024. - Will consider resuming Metoprolol pending cardiology recs at follow-up or if HR sustained >110 # Iron deficient anemia: Received 1 unit packed red blood cells. Hemoglobin stable tween 7 and 8. MCV low. Treated with 2 doses of IV iron. Recommend repeat CBC, CMP, magnesium in 1 week #History of asplenia: Urinary tract infection due to E faecium, present on admission - Initiated on Zosyn empirically due to cough and abnormal urine. Urine grew E faecium. Will continue Augmentin to complete 5 days of therapy. #Physical deconditioning #Depression ? Patient's recently. Had gone to rehab for therapy. Was participating well with PT and OT. ? Mood stable, continue home duloxetine 60 mg daily, nortriptyline 25 mg daily. - Melatonin 5 mg nightly for sleep Chronic medical problems: #Paroxysmal A-fib: Currently rate controlled. Continue home Eliquis 5 mg twice daily. Hold home metoprolol as she appears rate controlled. Consider resuming after follow-up with cardiology or if heart rate elevates above 110 in A-fib at rest sustained. #CAD: Continue home aspirin, hold statin with aggressive diuresis. Total time spent on discharge 32 minutes in counseling, documentation, chart review, and direct care with patient. Exam Data for Last 24 hours Vital signs and Labs for Last 24 Hours: Temp Pulse Resp BP Pulse Ox O2 Del Method O2 Flow Rate 98.2 F 70 10 L 88/63 L 94 L Nasal Cannula 2 11/08/24 04:00 11/08/24 04:00 11/08/24 04:00 11/08/24 04:00 11/08/24 04:00 11/08/24 04:00 11/08/24 04:00 FiO2 2 11/05/24 17:36 Laboratory Results - last 24 hr 11/05/24 15:28: Urine Color Yellow, Urine Appearance Clear, Urine pH 5.5, Ur Specific [place] 1.020, Urine Protein Negative, Urine Glucose (UA) Negative, Urine Ketones Negative, Urine Blood 1+ A, Urine Nitrate Negative, Urine Bilirubin Negative, Urine Urobilinogen 0.2, Ur Leukocyte Esterase Negative, Urine RBC 5-10, Urine WBC 3-5, Ur Squamous Epith Cells 20-50, Urine Bacteria 2+ 11/07/24 05:30: Blood Type Confirm O Positive 11/07/24 12:17: Blood Type O Positive, Antibody Screen Negative, Crossmatch ([facility]) See Detail 11/07/24 17:55: Hgb 8.2 L, Hct 28.8 L 11/07/24 19:45: Vancomycin Trough 18.6 H 11/08/24 06:15: WBC 11.8 H, RBC 3.43 L, Hgb 7.9 L, Hct 27.2 L, MCV 79.3 L, MCH 23.0 L, MCHC 29.0 L, RDW 25.0 H, Plt Count 430 H, MPV 10.4, Neut % (Auto) 65.9, Lymph % (Auto) 12.4, [place] % (Auto) 13.4 H, Eos % (Auto) 6.8, Baso % (Auto) 1.2, Neut # (Auto) 7.8, Lymph # (Auto) 1.5, [place] # (Auto) 1.6 H, Eos # (Auto) 0.8 H, Baso # (Auto) 0.1, Sodium 136, Potassium 3.4 L, Chloride 92 L, Carbon Dioxide 37 H, Anion Gap 10.4, BUN 20 H D, Creatinine 0.90, Estimated Creat Clear 45, Estimated GFR 62, Est GFR ( Amer) 75, Glucose 174 H, Calcium 8.5, Total Bilirubin 0.7, AST 22, ALT 16, Alkaline Phosphatase 185 H, Total Protein 6.6, Albumin 3.2 L, Globulin 3.4 H, Albumin/Globulin Ratio 0.9 L I & O for Last 24 hours: Intake & Output 11/05/24 11/06/24 11/07/24 11/08/24 23:59 23:59 23:59 23:59 Intake Total 202.5 / 252.5 1229.167 / 4323.476 1200 / 1580 640 / 640 Output Total 1025 / 1725 6525 / 6525 1950 / 1950 Balance -822.5 / -1472.5 -5295.833 / -5295.833 -610 / -370 640 / 640 Weight 115.9 kg 115.9 kg 114.2 kg 114.2 kg Microbiology Reports for the Last 24 Hours: Microbiology 11/05/24 14:55 Blood Blood Culture - Preliminary NO GROWTH AFTER 72 HOURS 11/05/24 15:15 Blood Blood Culture - Preliminary NO GROWTH AFTER 48 HOURS 11/05/24 15:28 Urine,Clean Catch Urine Culture - Preliminary Gram Positive Cocci Constitutional Constitutional: no acute distress, obese, chronically ill appearing and cooperative *Routine HEENT Exam Head: Present normocephalic Eye: Present EOMI and PERRL ENT: Present mucous membranes moist *Routine Neck Exam Neck: Present supple; Absent lymphadenopathy *Routine Respiratory Exam Respiratory: Present rhonchi and normal respiratory effort; Absent prolonged expiratory phase, wheezes or crackles *Routine Cardiovascular Exam Cardiovascular: Present RRR and murmur *Routine Abdominal Exam Abdominal: Present soft and normoactive bowel sounds; Absent tenderness *Routine Rectal Exam Patient deferred: visual exam *Routine Exam Patient deferred: external exam *Routine Extremities Exam Extremities: Absent cyanosis, clubbing or edema *Routine Skin Exam Skin: Present intact and warm; Absent rash *Routine Neurological Exam Neurological: Present alert, oriented X3 and moving all extremities; Absent altered mental status Results Data Completed and Pending Labs on day of discharge: Labs from last 24 hours 11/08/24 11/07/24 11/07/24 06:15 19:45 17:55 WBC 11.8 H RBC 3.43 L Hgb 7.9 L 8.2 L Hct 27.2 L 28.8 L MCV 79.3 L MCH 23.0 L MCHC 29.0 L RDW 25.0 H Plt Count 430 H MPV 10.4 Neut % (Auto) 65.9 Lymph % (Auto) 12.4 [place] % (Auto) 13.4 H Eos % (Auto) 6.8 Baso % (Auto) 1.2 Neut # (Auto) 7.8 Lymph # (Auto) 1.5 Huntington # (Auto) 1.6 H Eos # (Auto) 0.8 H Baso # (Auto) 0.1 Sodium 136 Potassium 3.4 L Chloride 92 L Carbon Dioxide 37 H Anion Gap 10.4 BUN 20 H D Creatinine 0.90 Estimated Creat Clear 45 Estimated GFR 62 Est GFR ( Amer) 75 Glucose 174 H Calcium 8.5 Total Bilirubin 0.7 AST 22 ALT 16 Alkaline Phosphatase 185 H Total Protein 6.6 Albumin 3.2 L Globulin 3.4 H Albumin/Globulin Ratio 0.9 L Urine Color Urine Appearance Urine pH Ur Specific [place] Urine Protein Urine Glucose (UA) Urine Ketones Urine Blood Urine Nitrate Urine Bilirubin Urine Urobilinogen Ur Leukocyte Esterase Urine RBC Urine WBC Ur Squamous Epith Cells Urine Bacteria Vancomycin Trough 18.6 H Blood Type Blood Type Confirm Antibody Screen Crossmatch ([facility]) 11/07/24 11/07/24 11/05/24 12:17 05:30 15:28 WBC RBC Hgb Hct MCV MCH MCHC RDW Plt Count MPV Neut % (Auto) Lymph % (Auto) [place] % (Auto) Eos % (Auto) Baso % (Auto) Neut # (Auto) Lymph # (Auto) [place] # (Auto) Eos # (Auto) Baso # (Auto) Sodium Potassium Chloride Carbon Dioxide Anion Gap BUN Creatinine Estimated Creat Clear Estimated GFR Est GFR ( Amer) Glucose Calcium Total Bilirubin AST ALT Alkaline Phosphatase Total Protein Albumin Globulin Albumin/Globulin Ratio Urine Color Yellow Urine Appearance Clear Urine pH 5.5 Ur Specific [place] 1.020 Urine Protein Negative Urine Glucose (UA) Negative Urine Ketones Negative Urine Blood 1+ A Urine Nitrate Negative Urine Bilirubin Negative Urine Urobilinogen 0.2 Ur Leukocyte Esterase Negative Urine RBC 5-10 Urine WBC 3-5 Ur Squamous Epith Cells 20-50 Urine Bacteria 2+ Vancomycin Trough Blood Type O Positive Blood Type Confirm O Positive Antibody Screen Negative Crossmatch ([facility]) See Detail Preliminary micro results at discharge 11/05/24 14:55 Blood Culture - Preliminary Blood NO GROWTH AFTER 72 HOURS 11/05/24 15:15 Blood Culture - Preliminary Blood NO GROWTH AFTER 48 HOURS 11/05/24 15:28 Urine Culture - Preliminary Urine,Clean Catch Gram Positive Cocci DS: Diagnosis Discharge Diagnosis (1) (HFpEF) heart failure with preserved ejection fraction: Status: Acute Code(s): I50.30 - Unspecified diastolic (congestive) heart failure Qualifiers: Heart failure chronicity: acute on chronic Qualified Code(s): I50.33 - Acute on chronic diastolic (congestive) heart failure (2) Cor pulmonale: Status: Acute Code(s): I27.81 - Cor pulmonale (chronic) (3) Primary pulmonary hypertension: Status: Chronic Code(s): I27.0 - Primary pulmonary hypertension (4) Hypertension: Status: Chronic Code(s): I10 - Essential (primary) hypertension (5) Asplenia: Status: Chronic Code(s): Q89.01 - Asplenia (congenital) (6) Severe tricuspid regurgitation: Status: Chronic Code(s): I07.1 - Rheumatic tricuspid insufficiency (7) Diabetes mellitus type 2 in obese: Status: Chronic Code(s): E11.69 - Type 2 diabetes mellitus with other specified complication; E66.9 - Obesity, unspecified (8) Obesity: Status: Chronic Code(s): E66.9 - Obesity, unspecified Qualifiers: Body mass index: BMI 31.0-31.9 Obesity classification: adult class 1 (BMI 30 - 34.9) Obesity type: due to excess calories Serious obesity comorbidity presence: with serious comorbidity Qualified Code(s): E66.09 - Other obesity due to excess calories; Z68.31 - Body mass index [BMI] 31.0-31.9, adult Problem details: Class II (9) Atrial fibrillation: Status: Chronic Code(s): I48.91 - Unspecified atrial fibrillation Qualifiers: Atrial fibrillation type: longstanding persistent Qualified Code(s): I48.11 - Longstanding persistent atrial fibrillation (10) Acute on chronic anemia: Status: Acute Code(s): D64.9 - Anemia, unspecified (11) Urinary tract infection: Status: Acute Code(s): N39.0 - Urinary tract infection, site not specified (12) Cirrhosis of liver: Status: Chronic Code(s): K74.60 - Unspecified cirrhosis of liver Meds Home Medications and Allergies Home Medications ?Medication ?Instructions ?Recorded ?Confirmed ?Type acetaminophen 500 mg tablet 1,000 mg PO Q6H PRN Mild Pain 05/09/24 11/05/24 History (Tylenol Extra Strength) (Scale Score 1-4) zolpidem 5 mg tablet (Ambien) 5 mg PO HS PRN sleep #30 tabs 08/26/24 11/05/24 Rx nystatin 100,000 unit/gram topical 1 applic topical BID PRN 09/30/24 11/05/24 History powder Excoriation apixaban 5 mg tablet (Eliquis) 5 mg PO BID 10/17/24 11/05/24 History duloxetine 60 mg capsule,delayed 60 mg PO DAILY 10/17/24 11/05/24 History release famotidine 20 mg tablet 20 mg PO DAILY 10/17/24 11/05/24 History melatonin 5 mg tablet 5 mg PO HS 10/17/24 11/05/24 History nortriptyline 25 mg capsule 25 mg PO HS 10/17/24 11/05/24 History sennosides 8.6 mg-docusate sodium 1 tab PO DAILY 10/17/24 11/05/24 History 50 mg tablet (Senexon-S) ferrous sulfate 325 mg (65 mg 325 mg PO Q48H 10/18/24 11/05/24 History iron) tablet (Feosol) metoprolol succinate 25 mg 25 mg PO DAILY 10/18/24 11/05/24 History tablet,extended release 24 hr Held on 11/08/24. Instructions: pending follow-up with Cardiology or if HR >110 polyethylene glycol 3350 17 gram 17 g PO DAILYP PRN Constipation 30 10/23/24 11/05/24 Rx oral powder packet (HealthyLax) days #30 ea ipratropium 0.5 mg-albuterol 3 mg 1 ml inhalation Q6HP PRN soa 11/05/24 11/05/24 History (2.5 mg base)/3 mL nebulization soln ondansetron HCl 8 mg tablet 4 mg PO Q8HP PRN Nausea And 11/05/24 11/05/24 History Vomiting amoxicillin 500 mg-potassium 1 tab PO TID 2 days #6 tabs 11/08/24 Rx clavulanate 125 mg tablet (Augmentin) bumetanide 1 mg tablet 1 mg PO BIDL 30 days #60 tabs 11/08/24 Rx macitentan 10 mg tablet (Opsumit) 10 mg PO DAILY 30 days #30 tabs 11/08/24 Rx New Prescriptions to Start Prescriptions: amoxicillin-pot clavulanate [Augmentin] Brandon Oconnor bumetanide Brandon Oconnor macitentan [Opsumit] Brandon Oconnor Allergies Allergy/AdvReac Type Severity Reaction Status Date / Time levofloxacin Allergy Verified 10/02/24 10:58 meperidine Allergy Verified 10/02/24 10:58 Discharge Plan Disposition Patient Disposition: Xfer SNF Condition: Fair Discharge Order Discharge Orders: Discharge Order (Routine); Ordered 11/08/24 Ordered By: Brandon Oconnor Follow up Plan Follow up with: Fidel White PA [Physician Worksite Wellness Practitioner, Cardiology] - Enter time for follow up Luiz Sage DO [Primary Care Provider, [facility]] - Enter time for follow up Ryanne Whiting MD [Physician, Pulmonology] - Enter time for follow up Prescriptions/Medication Reconciliation: New amoxicillin-pot clavulanate [Augmentin] 500-125 mg tablet 1 tab PO TID 2 Days Qty: 6 0RF Continued nystatin 100,000 unit/gram powder 1 applic topical BID PRN (Reason: Excoriation) acetaminophen [Tylenol Extra Strength] 500 mg tablet 1,000 mg PO Q6H PRN (Reason: Mild Pain (Scale Score 1-4)) zolpidem [Ambien] 5 mg tablet 5 mg PO HS PRN (Reason: sleep) Qty: 30 0RF ipratropium-albuterol 0.5 mg-3 mg(2.5 mg base)/3 mL Solution For Nebulization 1 ml INHALATION Q6HP PRN (Reason: soa) ondansetron HCl 8 mg tablet 4 mg PO Q8HP PRN (Reason: Nausea And Vomiting) Patient Comments: TAKE 1 TABLET BY MOUTH EVERY 8 (EIGHT) HOURS IF NEEDED FOR NAUSEA OR VOMITING FOR UP TO 30 DAYS. Opsumit 10 mg tablet 10 mg PO DAILY 30 Days Qty: 30 0RF Rx Instructions: Hold only for systolic blood pressure less than 90 sennosides-docusate sodium [Senexon-S] 8.6-50 mg tablet 1 tab PO DAILY nortriptyline 25 mg capsule 25 mg PO HS famotidine 20 mg tablet 20 mg PO DAILY duloxetine 60 mg capsule,delayed release(DR/EC) 60 mg PO DAILY melatonin 5 mg tablet 5 mg PO HS Eliquis 5 mg tablet 5 mg PO BID ferrous sulfate [Feosol] 325 mg (65 mg iron) tablet 325 mg PO Q48H polyethylene glycol 3350 [HealthyLax] 17 gram Powder In Packet 17 g PO DAILYP PRN (Reason: Constipation) 30 Days Qty: 30 0RF Changed bumetanide 1 mg tablet 1 mg PO BIDL 30 Days Qty: 60 0RF Patient Comments: TAKE 1 TABLET BY MOUTH ONCE DAILY Rx Instructions: Hold only for systolic blood pressure less than 90 Held metoprolol succinate 25 mg tablet extended release 24 hr 25 mg PO DAILY Hold Instructions: pending follow-up with Cardiology or if HR >110 Discontinued aspirin 81 mg tablet,delayed release (DR/EC) 81 mg PO DAILY Problem Reconciliation Problems Reviewed?: Yes Patient Discharge Instructions ACTIVITY: Continue current activity DIET: continue same diet Patient Instructions: Tricuspid Valve Disease, Pulmonary Hypertension -- Adult, DI for Heart Failure, DI for Respiratory Failure, Catheter-Associated Urinary Tract Infection, Stop Light Heart Failure Print Language: Thai Providers Primary Care Provider: Luiz Sage Admit Provider: Brandon Oconnor Attending Provider: Brandon Oconnor
[2024-11-08 08:00] VITALS: BP 97/58; PULSE 70; PULSE 73; RESP 16; TEMP 36.8; O2SAT 94
[2024-11-08 08:04] LABS: Magnesium 1.8 mg/dl (1.6-2.3)
[2024-11-08 08:17] LABS: RBC Morphology Normal; Total Cells Counted 100
--- NOTE | 2024-11-08 08:20 | PC.NURSE ---
Pt. is alert and orientated x 4. Pt. is on oxygen 2 liters per N/C. Pt. is very congested, and has a very strong cough. lung sounds with crackles and rhonci. Pt. puse lipped breathing at times. Pt. was up in the cahair for quite a while. Pt. ambulated with the bathroom with her walker and assist x 1.Pt. from [facility] [place]. Pt. has no c/o's at this time. Pt. sleeping on and off this shift. Oxygen sats decreased when patients oxygen is off. Personal items and call carmen in reach. Bed in low and locked position.Safety measures in place.
[2024-11-08] MEDS: BUMETANIDE 1 MG TABLET PO (08:21)
[2024-11-08] MEDS: FAMOTIDINE 20MG TABLET 20 MG PO (08:21)
[2024-11-08] MEDS: POTASSIUM CHLORIDE 20MEQ TAB 40 MEQ PO (08:22)
[2024-11-08] MEDS: MACITENTAN 10 MG 10 EACH PO (08:23)
[2024-11-08] MEDS: IRON SUCROSE COMPLEX 200 MG in 0.9 % SODIUM CHLORIDE 100 ML 220 MG IV (10:25)
[2024-11-08 11:58] VITALS: BP 103/63; PULSE 74; RESP 16; TEMP 36.7; O2SAT 96
[2024-11-08 12:00] VITALS: PULSE 70
--- NOTE | 2024-11-09 08:03 | PC.NURSE ---
Blood culture results forwarded to hospitalist.
== END 2024-11-08 13:25 | DRG 291 ==
LOC: ER 17:26 → 2ND 18:33
PROVIDERS: Nurse Practitioner Family; Admitting Provider Internal Medicine Adolescent Medicine; Emergency Provider Student in an Organized Health Care Education/Training Program; PCP Internal Medicine; Visit Provider Internal Medicine Adolescent Medicine
DX: I11.0 Hypertensive heart disease with heart failure (principal); I50.33 Acute on chronic diastolic (congestive) heart failure; J96.21 Acute and chronic respiratory failure with hypoxia; Q89.01 Asplenia (congenital); I48.11 Longstanding persistent atrial fibrillation; N39.0 Urinary tract infection, site not specified; Z68.41 Body mass index [BMI] 40.0-44.9, adult; I27.81 Cor pulmonale (chronic); I50.813 Acute on chronic right heart failure; E11.69 Type 2 diabetes mellitus with other specified complication; I07.1 Rheumatic tricuspid insufficiency; Z68.31 Body mass index [BMI] 31.0-31.9, adult; I25.10 Atherosclerotic heart disease of native coronary artery without angina pectoris; F41.9 Anxiety disorder, unspecified; F32.A Depression, unspecified; D50.9 Iron deficiency anemia, unspecified; G47.30 Sleep apnea, unspecified; K74.60 Unspecified cirrhosis of liver; E66.01 Morbid (severe) obesity due to excess calories; K21.9 Gastro-esophageal reflux disease without esophagitis; E66.812 Obesity, class 2; E87.6 Hypokalemia; B95.2 Enterococcus as the cause of diseases classified elsewhere; R53.81 Other malaise; Z66 Do not resuscitate; T50.996A Underdosing of other drugs, medicaments and biological substances, initial encounter; Z91.148 Patient's other noncompliance with medication regimen for other reason; Y92.129 Unspecified place in nursing home as the place of occurrence of the external cause; Z79.01 Long term (current) use of anticoagulants; Z79.82 Long term (current) use of aspirin; Z79.85 Long-term (current) use of injectable non-insulin antidiabetic drugs; Z79.899 Other long term (current) drug therapy; Z88.1 Allergy status to other antibiotic agents; Z88.6 Allergy status to analgesic agent
CPT/HCPCS: 36415; 36430; 51702; 71045; 71275; 80048; 80053; 80202; 81001; 82962; 83605; 83735; 83880; 84484; 85007; 85014; 85018; 85025; 86850; 87040; 87077; 87086; 87088; 87186; 87636; 93005; 97110; 97162; 97166; 97530; 99285; G0378; J1756; J1939; J2543; J3375; J3475; J7050; P9016; Q9967

== ENCOUNTER 2024-11-12 12:55 | Outpatient (CLI) | payer MEDICARE, BC, SELFPAY ==
--- OUTSIDE RECORDS SUMMARY | 2024-09-15 10:40 | XMS_ITS | Encounter Summary ---
Author Organization [facility] Address [address] [place] [address] Care Team Providers Care Sales Representatives Name Role Phone Maegan Bermeo MD Primary Care Provider [phone] Reason for Visit * Reason Comments Wound Check Encounter Details Date Type Department Care Team (Latest Contact Info) Description 09/15/2024 10:40 AM EDT [facility] Visit [facility] [address] 5th Floor [address] [place] [address] Raimundo Hatch, DPM [address] [place] [address] Ulcer of toe of left foot, with fat layer exposed (CMS/HCC) (Primary Dx); Diabetic neuropathy with neurologic complication (CMS/HCC); Corns and callosities; Nail dystrophy Social History Tobacco Use Types Packs/Day Years Used Date Smoking Tobacco: Never Passive Smoke Exposure: Never Smokeless Tobacco: Never Alcohol Use Standard Drinks/Week Comments Never 0 (1 standard drink = 0.6 oz pur e alcohol) PHQ-2 Answer Date Recorded Patient Health Questionnaire-2 Score 2 06/07/2022 AUDIT-C Answer Date Recorded Q1: How often do you have a drink containing alcohol? Never 09/15/2024 Q2: How many drinks containi ng alcohol do you have on a typical day when you are drinking? Patient does not drink Q3: How often do you have si x or more drinks on one occasion? Never 09/15/2024 CAGE ASSESSMENT Answer Date Recorded Cage unable [...] drink first t ken in the morning (EYE-DATA INTEGRITY CONSULTANT) to steady your nerves or to get [...] Sign Reading Time Taken Comments Blood Pressure 93/54 09/15/2024 10:25 AM EDT Pulse 66 09/15/2024 10:25 AM EDT Temperature 36.7 C (98 F) 09/15/2024 10:25 AM EDT Respiratory Rate - - Oxygen Saturation 95% 09/15/2024 10:25 AM EDT Inhaled Oxygen Concentration - - Weight 104 kg (229 lb 4.5 oz) 09/15/2024 10:25 A M EDT Height 165.1 cm (5' 5 ) 09/15/2024 10:25 AM EDT Body Mass Index 38.15 09/15/2024 10:25 AM EDT documented in this encounter Functional Status * AUDIT-C Score Answer Date of Assessment Author 0 09/15/2024 10:31 AM EDT Renetta Saleh * Question Answer Date of Assessment Author Q1: How often do you have a drink containing alcohol? Never 09/15/2024 10:31 AM EDT Renetta Saleh Q2: How many drinks containing alcohol do you have on a typical day when you are drinking? Patient does not drink 09/15/2024 10:31 AM EDT Renetta Saleh Q3: How often do you have six or more drinks on one occasion? Never 09/15/2024 10:31 AM EDT Renetta Saleh documented as of this encounter Miscellaneous Notes * Patient Instructions - Mitali Stoner RN - 09/15/2024 10:[address] [facility] Physician Orders/Patient Instructions Should you notice a significant change in your wound(s) (such as increased drainage, foul odor, or pain) or have questions or problems following these instructions, please contact us at or call your primary care physician or the hospital emergency rooms. -Monitor your feet for open/draining areas. If you notice a new open area please contact the clinicto be scheduled for an evaluation. Wound Care/Dressing: Wound location Left 3rd Toe-Healed Cleanse Wound With: with soap and water; you may shower as normal * Progress Notes - Raimundo Hatch DPM - 09/15/2024 10:40 AM EDT Subjective Rica Flannery is a 69 y.o. female who comes to see us today for: Chief Complaint Wound Check This pleasant 69-year-old female presents with the daughter today for follow-up. They feel that thewound on the distal aspect of the toe has heel following the tenotomy but want to have it checked out. There also requesting palliative care. She lives in [facility] in his asking if there is a doctor who can take care for feet regularly. Wound Check Her chronic comorbid conditions that impact our treatment planning include: Diabetes (DM) - control uncertain, with a last HbA1C of: No results found for requested labs withinlast 365 days. The following portions of the chart were [...] Endocrine: Negative. Genitourinary: Negative. Musculoskeletal: Negative. Skin: Negative for wound. Allergic/Immunologic: Negative. Neurological: Positive for [...] No edema. Feet: Right foot: Skin integrity: Callus present. No ulcer. Toenail Condition: Right toenails are abnormally thick and long. Left foot: Skin integrity: Callus present. No ulcer, erythema or warmth. Toenail Condition: Left toenails are abnormally thick and long. Comments: 5th MTH callus BLE Nails 1-5 ble Skin: General: Skin is warm. Capillary Refill: Capillary refill takes less than 2 seconds. Findings: No bruising or rash. Neurological: Mental Status: She is alert and oriented to person, place, and time. Sensory: Sensation is intact. Motor: Motor function is intact. Psychiatric: Mood and Affect: Mood normal. Behavior: Behavior normal. Thought Content: Thought content normal. Judgment: Judgment normal. Procedures Verbal consent obtained for foot care. Indications include pain, and or peripheral neuropathy, and or peripheral vascular disease. Risk of laceration, bleeding, infection and pain have been discussed. Nails debridement x 10, all nails reduced in thickness and length with sterile nail nippers. Calluses x 2 reduced with a 10 scalpel blade as needed. Toenails and/or calluses treated today without incident or laceration. The patient tolerated well. Recommend daily foot inspections. Accommodative shoes and padding options have been discussed to reduce discomfort and risk of ulceration or wound development. Call with any concerns prior to follow-up. Assessment/Plan In Summary: Rica Flannery is a 69 y.o. year old female who is fully healed in regards of the digital ulceration following tenotomy. No indication for further wound care follow up at this time but can return if he develops an open or draining area. I have recommended shoe see [place] foot [facility] ankle specialist in [facility] and she is interested in routine foot care. I do not take new patients for routine foot care been will provide care today as a professional courtesy. This will give her some time to make arrangements for an appointment..Below is a summary of the diagnoses addressed in today's visit and any associated orders. Problem List Items Addressed This Visit Nervous Diabetic neuropathy with neurologic complication (CMS/HCC) Musculoskeletal Ulcer of toe of left foot, with fat layer exposed (CMS/HCC) - Primary Other Visit Diagnoses Corns and callosities Nail dystrophy We will see her back for: Follow up if symptoms worsen or fail to improve. documented in this encounter Plan of Treatment Not on file documented as of this encounter Visit Diagnoses Diagnosis Ulcer of toe of left foot, with fat layer exposed (CMS/HCC)- Primary Diabetic neuropathy with neurologic complication Type II or unspecified type diabetes mellitus with neurological manifestations, not stated as uncontrolled Corns and callosities Nail dystrophy Other specified disease of nail documented in this encounter Additional Health Concerns Assessment Noted Time A fall risk assessment has been complete d for the patient 09/15/2024 10:33 AM EDT A Body Mass Index follow-up plan has been documented for the patient 09/15/2024 11:19 AM EDT documented as of this encounter Care Teams Sales Representatives Relationship Specialty Start Date End Date Maegan Bermeo MD [address] [place] [id number] PCP - General Family Medicine 09/15/21 documented as of this encounter
--- OUTSIDE RECORDS SUMMARY | 2024-10-06 14:00 | XMS_ITS | Encounter Summary ---
Author Organization [facility] Address [address] [place] [address] Care Team Providers Care Sawmill Hand Name Role Phone System, Provider Not In Primary Care Provider Un available Reason for Visit * Reason Comments Tricuspid regurgitation Encounter Details Date Type Department Care Team (Late st Contact Info) Description 10/06/2024 2:00 PM EDT Office Visit [facility] Physicians - Cardiovascular Medicine [address] [place] [address] [address] [place] [address] Abisai Booth MD 401 [facility] 310 [place] [address] Tricuspid incompetence, non-rheumatic (Primary Dx); [...] not included. Structural Heart & Valve Intervention [facility] Cardiology Chief Complaint Patient presents with Tricuspid regurgitation Encounter Diagnoses Name Primary? Tricuspid incompetence, non-rheumatic Yes Shortness of breath Heart valve disorder History of Present Illness Rica Flannery is a 69 y.o. female that presents to [facility] for evaluation for tricuspid regurgitation and consideration for percutaneous transcatheter rghu-ve-qkgn tricuspid valve repair with TriClip (tricuspid clip). [...] tricuspid regurgitation and consideration for percutaneous transcatheter tjpm-qy-vybx tricuspid valve repair with TriClip (tricuspid clip). [...] Booth MD Structural Heart & Valve Disease [facility] Interventional Cardiology - [facility]) Plastic Parts Designer, [facility] [phone] 10/06/2024 [1] Current Outpatient Medications: atorvastatin (Lipitor) [...] A WEEK, Disp: , Rfl: nystatin (Mycostatin) 330688 UNIT/GM powder, Apply topically in the morning [...] [facility] [address] [facility] [address] [place] [address] 01/13/2025 2:20 PM EST [facility] [address] [facility] [address] [place] [address] Aubrey Chang MD 401 [facility] 310 [place] [address] 04/14/2025 2:20 PM EST Office Visit [facility] - Pulmon[facility] 401 [facility] 690 [place] [address] Aubrey Chang MD 401 [facility] 310 [place] [address] documented as of this encounter Procedures Procedure Name Priority Date/Time Associated Diagnosis Comments ECG 12-LEAD Routine 10/06/2024 2:32 PM EDT Tricuspid incompetence, non-rheumatic documented in this encounter Results * ECG 12 Lead (10/06/2024 2:32 PM EDT) us Abisai Booth MD ECG ORDERABLES Final Result documented in this encounter Visit Diagnoses Diagnosis Tricuspid incompetence, non-rheumatic- Primary Shortness of breath Heart valve disorder documented in this encounter Care Teams Sawmill Hand Relationship Specialty Start Date End Date System, Provider Not In PCP - General 10/06/24 documented as of this encounter
--- OUTSIDE RECORDS SUMMARY | 2024-10-07 14:00 | XMS_ITS | Encounter Summary ---
Author Organization [facility] Address [address] [place] [address] Care Team Providers Care Station Installer And Repairer Name Role Phone System, Provider Not In Primary Care Provider Un available Reason for Visit * Consultation (Routine) - Closed Specialty Diagnoses / Procedures Referred By Contallison t Referred To Contact Pulmonology Diagnoses Pulmonary hypertension Procedures Pulmonary function test Aubrey Chang MD 401 [facility], [address] [place] [address] Phone: tel: fax: [facility] [address] [facility] [address] [place] [address] Phone: tel: fax: Referral ID Status Reason Start Date Expiration Date V isits Requested Visits Authorized [id number] Closed Specialty Services Required 09/22/2024 10/22/2025 1 1 Encounter Details Date Type Department Care Team (Latest Contact Info) Description 10/07/2024 2:00 PM EDT [facility] [address] [facility] [address] [place], [place] [id number] Pulmonary hypertension Social History Tobacco Use Types Packs/Day Years Used Date Smoking Tobacco: Never Smokeless Tobacco: Never Alcohol Use Standard Drinks/Week Comments Never 0 (1 standard drink = 0.6 oz pur e alcohol) Depression Answer Date Recorded PHQ-2 Total Score 2 10/07/2024 Comments No Sex and Gender Information Value Date Recorded Sex Assigned at Not on file Legal Sex Female 10:15 AM EDT Gender Identity Not on file Sexual Orientation Not on file documented as of this encounter Progress Notes * Dov Lopez CRTT - 10/07/2024 2:00 PM EDT Testing completed today. documented in this encounter Plan of Treatment Upcoming Encounters Date Type Department Care Team (Late st Contact Info) Description 11/19/2024 8:00 PM EDT Procedure Visit [facility] [address] [place] [address] 01/13/2025 2:20 PM EST Telemedicine [facility] Pulmonology [address] [place] [address] [place] [address] Aubrey Chang MD [address] [place] [address] 04/14/2025 2:20 PM EST Office Visit [facility] [address] [place] [address] [place] [address] Aubrey Chang MD [address] [place] [address] documented as of this encounter Procedures Procedure Name Priority Date/Time Associated Diagnosis Comments PULMONARY FUNCTION TESTING Routine 10/07/2024 1:34 PM EDT Pulmonary hypertension documented in this encounter Results * Pulmonary function test (10/07/2024 1:34 PM EDT) Anatomical Region Laterality Modality Other Aubrey Chang MD PFT ORDERABLES Final Res ult documented in this encounter Visit Diagnoses Diagnosis Pulmonary hypertension documented in this encounter Care Teams Station Installer And Repairer Relationship Specialty Start Date End Date System, Provider Not In PCP - General 10/06/24 documented as of this encounter
--- OUTSIDE RECORDS SUMMARY | 2024-10-07 14:40 | XMS_ITS | Encounter Summary ---
Author Organization [facility] Address [address] [place] [address] Care Team Providers Care Soap Tender Name Role Phone System, Provider Not In Primary Care Provider Un available Reason for Visit * Consultation (Routine) - Closed Specialty Diagnoses / Procedures Referred By Contac t Referred To Contact Pulmonology Diagnoses Pulmonary hypertension Procedures Six Minute Walk Test Aubrey Chang MD [address] [facility] [place] [address] Phone: tel: fax: [facility] [address] [facility] [address] [place] [address] Phone: tel: fax: Referral ID Status Reason Start Date Expiration Date V isits Requested Visits Authorized [id number] Closed Specialty Services Required 09/22/2024 10/22/2025 1 1 Encounter Details Date Type Department Care Team (Latest Contact Info) Description 10/07/2024 2:40 PM EDT Procedure [facility] [address] [facility] [address] [place], [place] [phone] Pulmonary hypertension Social History Tobacco Use Types [...] Notes * Dov Lopez CRTT - 10/07/2024 2:40 PM EDT Testing completed today. documented in this encounter Plan of Treatment Upcoming Encounters Date Type Department Care Team (Late st Contact Info) Description 11/19/2024 8:00 PM EDT Procedure Visit [facility] [address] [place] [address] 01/13/2025 2:20 PM EST Telemedicine [facility] - Pulmonology [address] [facility] 6[address] [place] [address] Aubrey Chang MD [address] [facility] [address] [facility] 310 [place] [address] 04/14/2025 2:20 PM EST Office Visit [facility] - Pulmonology [address] [facility] [address] [place] [address] Aubrey Chang MD [address] [facility] [address] [facility] 310 [place] [address] documented as of this encounter Procedures Procedure Name Priority Date/Time Associated Diagnosis Comments SIX MINUTE WALK TEST Routine 10/07/2024 1:34 PM E DT Pulmonary hypertension documented in this encounter Results * Six Minute Walk Test (10/07/2024 1:34 PM EDT) Anatomical Region Laterality Modality Other us Aubrey Chang MD PFT ORDERABLES Final Res ult documented in this encounter Visit Diagnoses Diagnosis Pulmonary hypertension documented in this encounter Care Teams Soap Tender Relationship Specialty Start Date End Date System, Provider Not In PCP - General 10/06/24 documented as of this encounter
--- OUTSIDE RECORDS SUMMARY | 2024-10-07 15:00 | XMS_ITS | Encounter Summary ---
Author Organization [facility] Address [address] [facility] [address] [place] [address] Care Team Providers Care Semiconductor Development Technician Name Role Phone System, Provider Not In Primary Care Provider Un available Reason for Referral * Medications - Authorized Specialty Diagnoses / Procedures Referred By Contac t Referred To Contact Diagnoses Pulmonary hypertension, not otherwise specified Aubrey Chang MD [address] [place] [address] [address] [place] [address] Phone: tel: fax: Referral ID Status Reason Start Date Expiration Date V isits Requested Visits Authorized [id number] Authorized 09/23/2024 02/18/2099 1 1 * Sleep (Routine) - Closed Specialty Diagnoses / Procedures Referred By Contac t Referred To Contact Sleep Medicine Diagnoses Pulmonary hypertension, not otherwise specified Obstructive sleep apnea syndrome Aubrey Chang MD [address] [place] [address], [address] [place] [address] Phone: tel: fax: [place] [address] Phone: tel: fax: Referral ID Status Reason Start Date Expiration Date V isits Requested Visits Authorized [id number] Closed Specialty Services Required 10/07/2024 11/06/2025 1 [...] Visit [facility] - Pulmonology [address] [facility] [address] [place] [address] Aubrey Chang MD [address] [facility] [address] [place] [address] Pulmonary hypertension, not otherwise specified (Primary Dx); [...] Casas MD - 10/07/2024 3:00 PM EDT [facility] - PULMONOLOGY CLINIC NOTE Patient: Rica [...] and lightheadedness when standing up. Recently saw business office manager yesterday and metoprolol discontinued. BP during visit [...] Body mass index 40+ - severely obese ([facility]) 06/06/2021 Chronic atrial fibrillation ([facility]) 10/11/2021 Chronic right-sided heart failure 10/31/2021 COVID-19 10/27/2021 Diabetic neuropathy with neurologic complication 08/11/2024 Essential (primary) hypertension 05/24/2017 Fall 10/27/2021 Fracture of twelfth thoracic vertebra ([facility]) 10/26/2021 Generalized anxiety disorder 03/04/2021 Lesion of [...] ML SUBCUTANEOUSLY ONCE A WEEK nystatin (Mycostatin) 267130 UNIT/GM powder 2 times daily RT pantoprazole [...] , INR , ANAPATTRN , ANATITERADD , [id number] , ALPHA1 , HIV1X2 , ANCA , [...] - Has scheduled sleep study in November Placed This Encounter Procedures Ambulatory referral to Sleep Studies Follow up in about 3 months (around 01/07/2025). Hans Casas MD [facility] - PULMONOLOGY 10/07/2024 [1] History reviewed. [...] [facility] [address] [facility] [address] [place] [address] 01/13/2025 2:20 PM EST Telemedicine [facility] - Pulmonology [address] [facility] [address] [place] [address] Aubrey Chang MD [address] [facility] [address] [place] [address] 04/14/2025 2:20 PM EST Office Visit [facility] - Pulmonology [address] [facility] [address] [place] [address] Aubrey Chang MD [address] [address] Scheduled Referrals Name Type Priority Associated Diagnoses Order Schedule Ambulatory referral to Sleep Studies Outpatient Referral Routine Pulmonary hypertension, not otherwise specified Obstructive sleep apnea syndrome Ordered: 10/07/2024 documented as of this encounter Visit Diagnoses Diagnosis Pulmonary hypertension, not otherwise specified- Primary Obstructive sleep apnea syndrome documented in this encounter Care Teams Semiconductor Development Technician Relationship Specialty Start Date End Date System, Provider Not In PCP - General 10/06/24 documented as of this encounter
--- OUTSIDE RECORDS SUMMARY | 2024-11-12 13:00 | XMS_ITS | Encounter Summary ---
Author Organization Healthcare Address [address] [place] [address] Care Team Providers Care Melter Loader Name Role Phone Jan Castelan MD Primary Care Provider [phone] Benjie Quezada MD Primary Care Provider Tamika Loomis APRN Primary Care Provider [phone] Maegan Bermeo MD Primary Care Provider [phone] Audra Wahl SLEEVE PRESSER OPERATOR Unavailable Unavailab Jessa Jimenez SLEEVE PRESSER OPERATOR Unavailable Unavailable Reason for Visit * Reason Comments Med Refill Encounter Details Date Type Department Care Team (Late st Contact Info) Description 07/27/2020 Refill Family [facility] Community Medicine [address] [place] [address] Jan Castelan MD [address] [place] [address] Social History Tobacco Use Types [...] and sent to appropriate Health Dept. IPAC Audio Visual Facilities Engineer: Brandiedon Demi 10/26/2021 10/26/2021 022 10:27 AM EDT COVID 19 (Confirmed) 11/11/2021 11/11/2021 022 5:23 AM EDT COVID-19 Rule-Out 05/16/2022 05/16/2022 05/16/2022 11:05 PM EDT documented as of this encounter Care Teams Melter Loader Relationship Specialty Start Date End Date Jan Castelan MD [address] [place] [id number] PCP - General 07/02/20 08/07/21 Benjie Quezada MD [address] [place] [address] PCP - General Family Medicine 08/08/21 08/30/21 Tamika Loomis APRN [address] [place] [address] PCP - General Family Medicine 08/31/21 09/14/21 Maegan Bermeo MD [address] [place] [address] PCP - General Family Medicine 09/15/21 Audra Wahl LPN [employer] [place] [address] TCM Nurse 09/27/21 10/27/21 Jessa Park LPN [employer] [place] [address] Registered Nurse 05/26/22 05/26/22 documented as of this encounter
--- OUTSIDE RECORDS SUMMARY | 2024-11-12 13:00 | XMS_ITS | Clinical Summary ---
Author Organization [facility] Address [address] [place] [address] Care Team Providers Care Casing Puller Name Role Phone Tricia Pérez MD Primary Care Provider [phone] Allergies Active Allergy Reactions Criticality Noted Date [...] season) 2024 Insurance MEDICARE A & B [facility] Care Teams Casing Puller Relationship Specialty Start Date End Date Tricia Pérez MD [address] [place] [address] PCP - General Family Medicine 07/20/18
--- OUTSIDE RECORDS SUMMARY | 2024-11-12 13:00 | XMS_ITS | Encounter Summary ---
Author Organization [facility] Address [address] [place] [address] Care Team Providers Care Epic [facility] Name Role Phone Cassia Blanco Dr Primary Care Provider Unavailabl e Encounter Details Date Type Department Care Team (Late Contact Info) Description 09/29/2024 Orders Only [facility] - Pulmonology [address] [place] [address] Pcp, None Social History Tobacco Use Types [...] [facility] - [facility] [address] [place] [address] 01/13/2025 2:20 PM EST Telemedicine [facility] - Pulmonology [address] [facility] [address] [place] [address] Aubrey Chang MD [address] [facility] [address] [place] [address] 04/14/2025 2:20 PM EST Office Visit [facility] - Pulmonology [address] [facility] [address] [place] [address] Aubrey Chang MD [address] [facility] [address] [place] [address] documented as of this [...] on filedocumented in this encounter Care Teams Epic [facility] Relationship Specialty Start Date End Date Cassia Blanco Dr. PCP - General 09/08/24 10/05/24 documented as of this encounter
--- OUTSIDE RECORDS SUMMARY | 2024-11-12 13:00 | XMS_ITS | Encounter Summary ---
Author Organization [facility] Address [address] [place] [address] Care Team Providers Care Paper Making Machine Operator Name Role Phone System, Provider Not In Primary Care Provider Un available Reason for Visit * Reason Onset Date Comments Side Effects 10/15/2024 Encounter Details Date Type Department Care Team (Late st Contact Info) Description 10/15/2024 Telephone [facility] [address] [place] [address] Shikha Clayton MA Side Effects Social History [...] is any concern with these symptoms. Pharmacy[facility] [place]. documented in this encounter Plan of Treatment Upcoming Encounters Date Type Department Care Team (Late st Contact Info) Description 11/19/2024 8:00 PM EDT Procedure Visit [facility] [address] [facility] [address] [place] [address] 01/13/2025 2:20 PM EST Telemedicine [facility] - Pulmonology [address] [address] Aubrey Chang MD [address] [address] 04/14/2025 2:20 PM EST Office Visit [facility]ology [address] [address] Aubrey Chang MD [address] [address] documented as of this encounter Visit Diagnoses Diagnosis Pulmonary hypertension, not otherwise specified- Primary documented in this encounter Care Teams Paper Making Machine Operator Relationship Specialty Start Date End Date System, Provider Not In PCP - General 10/06/24 documented as of this encounter
--- OUTSIDE RECORDS SUMMARY | 2024-11-12 13:00 | XMS_ITS | Encounter Summary ---
Author Organization [facility] Address [address] [place] [address] Care Team Providers Care Engine Emission Technician Name Role Phone System, Provider Not In Primary Care Provider Un available Reason for Visit * Reason Onset Date Comments Opsumit RX 10/08/2024 Encounter Details Date Type Department Care Team (Late Contact Info) Description 10/08/2024 Telephone [facility] [address] [place] [address] Shikha Clayton MA Opsumit RX Social History [...] me. It has been approved. Auth #: [id number] and is valid until further notice . documented in this encounter Plan of Treatment Upcoming Encounters Date Type Department Care Team ([facility] Contact Info) Description 11/19/2024 8:00 PM EDT Procedure Visit [facility] [address] [place] [address] 01/13/2025 2:20 PM EST Telemedicine [facility] - Pulmonology 401 [address] [facility] 690 [place] [address] Aubrey Chang MD 401 [facility] [address] [place] [address] 04/14/2025 2:20 PM EST Office Visit [facility] Pulmonology [address] [address] Aubrey Chang MD [address] [address] documented as of this encounter Visit Diagnoses Not on filedocumented in this encounter Care Teams Engine Emission Technician Relationship Specialty Start Date End Date System, Provider Not In PCP - General 10/06/24 documented as of this encounter
--- OUTSIDE RECORDS SUMMARY | 2024-11-12 13:00 | XMS_ITS | Encounter Summary ---
Author Organization [facility] Address [address] [place] [address] Care Team Providers Care Bakery Helper Name Role Phone System, Provider Not In Primary Care Provider Un available Reason for Visit * Reason Onset Date Comments Tadalafil Approval. 10/08/2024 Encounter Details Date Type Department Care Team (Late Contact Info) Description 10/08/2024 Telephone [facility] [address] [place] [address] Shikha Clayton MA Tadalafil Approval. Social History [...] Patients Tadalafil has been approved. Auth #: [id number] documented in this encounter Plan of Treatment Upcoming Encounters Date Type Department Care Team (Late Contact Info) Description 11/19/2024 8:00 PM EDT Procedure Visit [facility] [address] [place] [address] 01/13/2025 2:20 PM EST Telemedicine [facility] Pulmonology [address] [address] Aubrey Chang MD [address] [phone] 04/14/2025 2:20 PM EST Office Visit [facility] [address] [address] Aubrey Chang MD [address] [address] documented as of this encounter Visit Diagnoses Not on filedocumented in this encounter Care Teams Bakery Helper Relationship Specialty Start Date End Date System, Provider Not In PCP - General 10/06/24 documented as of this encounter
--- OUTSIDE RECORDS SUMMARY | 2024-11-12 13:00 | XMS_ITS | Encounter Summary ---
Author Organization [facility] Address [address] [place] [address] Care Team Providers Care Gaming Host Name Role Phone Maegan Bermeo MD Primary Care Provider Audra Wahl RETORT FEEDER GROUND BONE Unavailable Unavailab Jessa Jimenez RETORT FEEDER GROUND BONE Unavailable Unavailable Reason for Visit * Reason Comments Med Refill Encounter Details Date Type Department Care Team (Late st Contact Info) Description 10/11/2021 Refill [facility] [address] [place] [address] Maegan Bermeo MD 202 [place] [address] Avitaminosis D Social History Tobacco [...] asymptomatic, not immunocompromised. Team aware. EVS notified. [facility] has verified patient has a COVID-19 positive result. A chart review has been completed, EPI PUI has been completed and sent to appropriate Health Dept. IPA Editorial Cartoonist: Nimco Simms 10/26/2021 10/26/2021 022 10:27 AM EDT COVID 19 (Confirmed) 11/11/2021 11/11/2021 022 5:23 AM EDT COVID-19 Rule-Out 05/16/2022 05/16/2022 05/16/2022 11:05 PM EDT Assessment Noted Time A fall risk assessment has been complete d for the patient 10/11/2021 11:31 AM EDT documented as of this encounter Care Teams Gaming Host Relationship Specialty Start Date End Date Maegan Bermeo MD [facility] [place] [address] PCP - General Family Medicine 09/15/21 Audra Wahl LPN [employer] [place] [address] TCM Nurse 09/27/21 10/27/21 Jessa Park LPN [employer]ED [place] [address] Registered Nurse 05/26/22 05/26/22 documented as of this encounter
--- OUTSIDE RECORDS SUMMARY | 2024-11-12 13:00 | XMS_ITS | Encounter Summary ---
Author Organization [facility] Address [address] [place] [address] Care Team Providers Care Well Testing Operator Name Role Phone Maegan Bermeo MD Primary Care Provider [phone] Encounter Details Date Type Department Care Team [...] first t ken in the morning (EYE-DIRECTOR RECREATION) to steady your nerves or to get [...] documented as of this encounter Care Teams Well Testing Operator Relationship Specialty Start Date End Date Maegan Bermeo MD [address] [place] [phone] PCP - General Family Medicine 09/15/21 documented as of this encounter
--- OUTSIDE RECORDS SUMMARY | 2024-11-12 13:00 | XMS_ITS | Encounter Summary ---
Author Organization [facility] Address [address] [facility] [address] [place] [address] Care Team Providers Care Home Health Provider Name Role Phone System, Provider Not In [...] [facility] [address] [facility] 490 [place] [address] 01/13/2025 2:20 PM EST Telemedicine [facility] 401 [address] [facility] 690 [place] [address] Aubrey Chang MD 401 [facility] 310 [place] [address] 04/14/2025 2:20 PM EST Office Visit [facility] Pulmonology [address] [facility] 690 [place] [address] Aubrey Chang MD 401 [facility] 310 [place] [address] documented as of this encounter Visit Diagnoses Not on filedocumented in this encounter Care Teams Home Health Provider Relationship Specialty Start Date End Date System, Provider Not In PCP - General 10/06/24 documented as of this encounter
--- OUTSIDE RECORDS SUMMARY | 2024-11-12 13:00 | XMS_ITS | Encounter Summary ---
Author Organization [facility] Address [address] [place] [address] Care Team Providers Care Cop Examiner Name Role Phone System, Provider Not In Primary Care Provider Un available Reason for Visit * Reason Onset Date Comments Opsumit Approval 10/13/2024 Encounter Details Date Type Department Care Team (Late st Contact Info) Description 10/13/2024 Telephone [facility] [address] [place] [address] Shikha Clayton MA Opsumit Approval Social History [...] with me as her insurance will not [id number] parties information. I have faxed them a copy of her approval. documented in this encounter Plan of Treatment Upcoming Encounters Date Type Department Care Team (Late st Contact Info) Description 11/19/2024 8:00 PM EDT Procedure Visit [facility] [address] [place] [address] 01/13/2025 2:20 PM EST Telemedicine [facility] - Pulmonology [address] [facility] 690 [place] [address] Aubrey Chang MD 401 [facility] 310 [place] [address] 04/14/2025 2:20 PM EST Office Visit [facility] Pul[facility] [address] [address] Aubrey Chang MD 401 [facility] 310 [place] [address] documented as of this encounter Visit Diagnoses Not on filedocumented in this encounter Care Teams Cop Examiner Relationship Specialty Start Date End Date System, Provider Not In PCP - General 10/06/24 documented as of this encounter
--- OUTSIDE RECORDS SUMMARY | 2024-11-12 13:01 | XMS_ITS | Encounter Summary ---
Author Organization [facility] Address [address] [place] [address] Care Team Providers Care Affirmative Action Officer Name Role Phone Maegan Bermeo MD Primary Care Provider [phone] Encounter Details Date Type Department Care Team (Late st Contact Info) Description 07/10/2024 Orders Only External Location [address] [place] [address] Provider, External Social History Tobacco Use Types [...] drink first t ken in the morning (EYE-YARDAGE TUFTING MACHINE OPERATOR) to steady your nerves or [...] documented as of this encounter Care Teams Affirmative Action Officer Relationship Specialty Start Date End Date Maegan Bermeo MD [address] [place] [address] PCP - General Family Medicine 09/15/21 documented as of this encounter
--- OUTSIDE RECORDS SUMMARY | 2024-11-12 13:01 | XMS_ITS | Clinical Summary ---
Author Organization [facility] Address [address] [address] Care Team Providers Care Neonatal Intensive Care Nurse Name Role Phone Unavailable Primary Care Provider [...]
--- OUTSIDE RECORDS SUMMARY | 2024-11-12 13:01 | XMS_ITS | Encounter Summary ---
Author Organization [facility] Address [address] [facility] [address] [facility] [address] [place] [address] Care Team Providers Care Gynecologist Name Role Phone System, Provider Not In Primary Care Provider Un available Encounter Details Date Type Department Care Team (Late st Contact Info) Description 10/30/2024 Telephone [facility] - Pulmonology [address] [facility] 690 [place] [address] Aubrey Chang MD 401 [facility] 310 [place] [address] Social History Tobacco Use Types Packs/Day Years [...] Telephone Encounter - Monique Olsen MA - 10/30/2024 1:51 PM EDT Called and spoke with patient daughter she is states that she stopped the Opsumit because it ended her in the ED and she almost from the S/E. I asked her what they was cause we had nausea and dizziness as the S/E. She states she had those along with weakness and she actual passed out. She went to [facility] I have called over to get the [...] Phys[facility] - Sleep Center [address] [facility] [facility] 490 [place] [address] 01/13/2025 2:20 PM EST Telemedicine [facility] - Pulmonology 401 [address] [facility] 690 [place] [address] Aubrey Chang MD 401 [facility] [address] [place] [address] 04/14/2025 2:20 PM EST Office Visit [facility] - Pulmonology [address] [address] Aubrey Chang MD [address] [address] documented as of this encounter Visit Diagnoses Not on filedocumented in this encounter Care Teams Gynecologist Relationship Specialty Start Date End Date System, Provider Not In PCP - General 10/06/24 documented as of this encounter
--- OUTSIDE RECORDS SUMMARY | 2024-11-12 13:01 | XMS_ITS | Encounter Summary ---
Author Organization [facility] Address [address] [facility] [address] [place] [address] Care Team Providers Care Vehicle Mechanic Name Role Phone Cassia Blanco Dr Primary Care Provider Unavailabl e Reason for Referral * Consultation (Routine) - Closed Specialty Diagnoses / Procedures Referred By Contac t Referred To Contact Pulmonology Diagnoses Pulmonary hypertension Procedures Six Minute Walk Test Aubrey Chang MD 401 [facility], [address] [place] [address] Phone: tel: fax: [facility] - Pulmonology [facility] [address] [address] Phone: tel: fax: Referral ID Status Reason Start Date Expiration Date V isits Requested Visits Authorized [id number] Closed Specialty Services Required 09/22/2024 10/22/2025 1 1 * Consultation (Routine) - Closed Specialty Diagnoses / Procedures Referred By Contac t Referred To Contact Pulmonology Diagnoses Pulmonary hypertension Procedures Pulmonary function test Aubrey Chang MD 401 [facility], [address] [place] [address] Phone: tel: fax: [facility] [address] [address] Phone: tel: fax: Referral ID Status Reason Start Date Expiration Date V isits Requested Visits Authorized [id number] Closed Specialty Services Required 09/22/2024 10/22/2025 1 1 Encounter Details Date Type Department Care Team (Late st Contact Info) Description 09/22/2024 Orders Only [facility] - Pulmonology [address] [address] Dov Lopez, OVERLOCK SEWING MACHINE OPERATOR Pulmonary hypertension (Primary Dx) Social History Tobacco [...] [facility] [address] [facility] 490 [place] [address] 01/13/2025 2:20 PM EST Telemedicine [facility] - Pulmonology 401 [facility] [place] [facility] 690 [place] [address] Aubrey Chang MD [address] [phone] 04/14/2025 2:20 PM EST Office Visit [facility] Pulmonology [address] [address] Aubrey Chang MD [address] [address] documented as of this encounter Results * [...] Primary documented in this encounter Care Teams Vehicle Mechanic Relationship Specialty Start Date End Date Cassia Blanco Dr. PCP - General 09/08/24 10/05/24 documented as of this encounter
--- OUTSIDE RECORDS SUMMARY | 2024-11-12 13:01 | XMS_ITS | Encounter Summary ---
Author Organization [facility] Address [address] [place] [address] Care Team Providers Care Skin Tanner Name Role Phone Tyler Castelan MD Primary Care Provider [phone] Benjie Quezada MD Primary Care Provider Tamika Loomis APRN Primary Care Provider [phone] Maegan Bermeo MD Primary Care Provider [phone] Audra Wahl BLUE CRABBER Unavailable Unavailab Jessa Jimenez BLUE CRABBER Unavailable Unavailable Encounter Details Date Type Department Care Team (Late st Contact Info) Description 06/28/2021 Outside Procedure External Location 800 [place] [id number] Tyler Castelan MD 202 [place] [address] Social History Tobacco Use Types [...] PM EDT Narrative 06/28/2021 4:35 [place] [address] Name: RICA FLANNERY Exam Date: 06/28/2021 : 1955 Age 65 Gender: F Physician: TYLER CASTELAN Facility: [facility] Facility HSV: Outpatient Exam: VENOUS DUPLEX US [...] Thank you for referring RICA FLANNERY to [facility]. Legally authenticated by KWAME HARGROVE 2021-06-28 16:23:11 Procedure Note Provider, [facility] - 06/28/2021 [facility] [address] [place] [address] Name: RICA FLANNERY Exam Date: 06/28/2021 : 1955 Age 65 Gender: F Physician: TYLER CASTELAN Facility: [facility] Facility HSV: Outpatient Exam: VENOUS DUPLEX US [...] Thank you for referring RICA FLANNERY to [facility]. Legally authenticated by KWAME HARGROVE 2021-06-28 [...] and sent to appropriate Health Dept. IPAC Job Coach/Job Developer: Nimco Simms 10/26/2021 10/26/2021 022 10:27 AM EDT COVID 19 (Confirmed) 11/11/2021 11/11/2021 022 5:23 AM EDT COVID-19 Rule-Out 05/16/2022 05/16/2022 05/16/2022 11:05 PM EDT Assessment Noted Time A fall risk assessment has been complete d for the patient 06/28/2021 10:46 AM EDT documented as of this encounter Care Teams Skin Tanner Relationship Specialty Start Date End Date Tyler Castelan MD 202 [place] [address] PCP - General 07/02/20 08/07/21 Benjie Quezada MD [address] [facility] [address] [place] [address] PCP - General Family Medicine 08/08/21 08/30/21 Tamika Loomis, DRY CLEANING MACHINE OPERATOR [address] [place] [address] PCP - General Family Medicine 08/31/21 09/14/21 Maegan Bermeo MD [address] [place] [address] PCP - General Family Medicine 09/15/21 Audra Wahl LPN [employer] [place] [address] TCM Nurse 09/27/21 10/27/21 Jessa Park LPN [employer] [place] [address] Registered Nurse 05/26/22 05/26/22 documented as of this encounter
--- OUTSIDE RECORDS SUMMARY | 2024-11-12 13:01 | XMS_ITS | Encounter Summary ---
Author Organization [facility] Address [address] [place] [address] Care Team Providers Care Import/Export Specialist Name Role Phone Maegan Bermeo MD Primary Care Provider [phone] Encounter Details Date Type Department Care Team (Late st Contact Info) Description 03/11/2024 Orders Only External Location 800 [place] [phone] Provider, External Social History Tobacco Use Types [...] drink first t ken in the morning (EYE-POPCORN CANDY MAKER) to steady your nerves or to [...] documented as of this encounter Care Teams Import/Export Specialist Relationship Specialty Start Date End Date Maegan Bermeo MD [address] [place] [address] PCP - General Family Medicine 09/15/21 documented as of this encounter
--- OUTSIDE RECORDS SUMMARY | 2024-11-12 13:01 | XMS_ITS | Clinical Summary ---
Author Organization [facility] Address [address] [facility] [address] [place] [address] Care Team Providers Care Scientific Linguist Name Role Phone System, Provider Not In [...] the morning. 05/03/19 25 Active nystatin (Mycostatin) 807157 UNIT/GM powder Apply topically in the morning [...] but pain at time of arrival to [facility] PL[facility]: -pain control initially with p.r.n. Tylenol [...] Encounters Date Type Department Care Team Description 11/11/2024 Telephone [facility] [address] [facility] 490 [place] [address] Cheko Garza MD Appointment 10/30/2024 Telephone [facility] - Pulmonology [address] [facility] [address] [place] [address] Aubrey Chang MD 10/15/2024 Telephone [facility] [address] [facility] [address] [place], [place] [phone] Shikha Clayton MA Side Effects 10/13/2024 Telephone [facility] [address] [address] Shikha Clayton MA Opsumit Approval 10/08/2024 Telephone [facility] - Pulmonology [address] [facility] [address] [place] [address] Shikha Clayton MA Tadalafil Approval. 10/08/2024 Telephone [facility] - Pulmonology [address] [facility] [address] [place] [address] Shikha Clayton MA Opsumit RX 10/07/2024 3:00 PM EDT Office Visit [facility] - Pulmonology [address] [facility] 6[address] [place] [address] Aubrey Chang MD Pulmonary hypertension, not otherwise specified (Primary Dx); Obstructive sleep apnea syndrome 10/07/2024 2:40 PM EDT Procedure Visit [facility] - Pulmonology [address] [facility] 310 [place] [address] Pulmonary hypertension 10/07/2024 2:00 PM EDT Procedure Visit [facility] - Pulmonology [address] [facility] 310 [place] [address] Pulmonary hypertension 10/06/2024 2:00 PM EDT Office Visit [facility] - Cardiovascular Medicine [address] [facility] [address] [place] [address] Abisai Booth MD Tricuspid incompetence, non-rheumatic (Primary Dx); Shortness of breath; Heart valve disorder 10/06/2024 Travel 09/30/2024 Telephone [facility] Sleep Center [address] [address] Cheko Garza MD Appointment; Forms/questionnaire s (Night tech questions) 09/30/2024 Telephone [facility] - Sleep Center [address] [address] Cheko Garza MD Appointment 09/29/2024 Orders Only [facility] [address] [facility] [address] [place] [address] Pcp, None 09/22/2024 Orders Only [facility] [address] [facility] [address] [place] [address] Dov Lopez CRTT Pulmonary hypertension (Primary Dx) 09/22/2024 Telephone [facility] [address] [place] [address] Olga Lidia Dahl DATA INTEGRATION DEVELOPER Hospital f/u Appt Request 09/22/2024 Telephone [facility] [address] [facility]rd [place] [address] Phy, Unknown 09/22/2024 Telephone [facility] Phys[facility] Administrative Services [address] [facility] [address] [place], [place] [address] Stefanie Graves RN Hospital Follow Up 09/19/2024 Orders Only [facility] [address] [facility] 310 [place] [address] Thomas Hoffmann MD Pulmonary hypertension, not otherwise [...] Center [address] [place] [address] 01/13/2025 2:20 PM EST Telemedicine [facility] Pulmonology [address] [facility] 6[address] [place] [address] Aubrey Chang MD 401 [facility] [place] [facility] 310 [place] [address] 04/14/2025 2:20 PM EST Office Visit [facility] [address] [facility] 6[address] [place] [address] Aubrey Chang MD 401 [facility] [place] [facility] [address] [place] [address] Health Maintenance Due Date Last Done Comments [...] Result from Last 3 Months Insurance MEDICARE Member Subscriber Plan / Payer (Ef fective 2018-Present) Name:Rica Flannery Member ID:[id number] Relation to Subscriber:Self Name:Rica Flanneyr Subscriber ID:[id number] Payer ID:[id number] Group ID:Not on file Type:Medicare Address: [address] Care Teams Scientific Linguist Relationship Specialty Start Date End Date System, Provider Not In PCP - General 10/06/24
--- OUTSIDE RECORDS SUMMARY | 2024-11-12 13:01 | XMS_ITS | Encounter Summary ---
Author Organization [facility] Address [address] [place] [address] Care Team Providers Care Testboard Operator Name Role Phone Phy, No Prim Dr Primary Care Provider Unavailabl e System, Provider Not In Primary Care Provider Un available Encounter Details Date Type Department Care Team (Late st Contact Info) Description 09/22/2024 Telephone [facility] [address] [facility], [address] [place] [address] Phy, Unknown Social History Tobacco Use Types [...] - Sleep Center [address] [facility] [address] [place] [address] 01/13/2025 2:20 PM EST Telemedicine [facility] - Pulmonology [address] [facility] 6[address] [place] [address] Aubrey Chang MD [address] [address] 04/14/2025 2:20 PM EST Office Visit [facility] [address] [address] Aubrey Chang MD [address] [address] documented as of this encounter Visit Diagnoses Not on filedocumented in this encounter Care Teams Testboard Operator Relationship Specialty Start Date End Date Cassia Blanco Dr. PCP - General 09/08/24 10/05/24 System, Provider Not In PCP - General 10/06/24 documented as of this encounter
--- OUTSIDE RECORDS SUMMARY | 2024-11-12 13:01 | XMS_ITS | Encounter Summary ---
Author Organization Healthcare Address [address] [place] [address] Care Team Providers Care Swedger Name Role Phone Maegan Bermeo MD Primary Care Provider [phone] Jessa Park LPN Unavailable Unavailable Reason for Visit * Reason Comments Med Refill Encounter Details Date Type Department Care Team (Late st Contact Info) Description 11/26/2021 Refill [facility] [address] [place] [address] Benjie Quezada MD [address] [place] [address] Social History Tobacco Use Types [...] documented as of this encounter Care Teams Swedger Relationship Specialty Start Date End Date Maegan Bermeo MD 202 [place] [address] PCP - General Family Medicine 09/15/21 Jessa Park LPN VALUE-[employer]ED [place] [address] Registered Nurse 05/26/22 05/26/22 documented as of this encounter
--- OUTSIDE RECORDS SUMMARY | 2024-11-12 13:01 | XMS_ITS | Encounter Summary ---
Author Organization [facility] Address [address] [place] [address] Care Team Providers Care General Dentist Name Role Phone Maegan Bermeo MD Primary Care Provider [phone] Encounter Details Date Type Department Care Team (Late st Contact Info) Description 07/08/2024 Orders Only External Location [address] [place] [address] Provider, External Social History Tobacco Use Types [...] drink first t ken in the morning (EYE-INDUSTRIAL RELATIONS COMMISSIONER) to steady your nerves or to get [...] documented as of this encounter Care Teams General Dentist Relationship Specialty Start Date End Date Maegan Bermeo MD [address] [place] [address] PCP - General Family Medicine 09/15/21 documented as of this encounter
--- OUTSIDE RECORDS SUMMARY | 2024-11-12 13:01 | XMS_ITS | Encounter Summary ---
Author Organization [facility] Address [address] [place] [address] Care Team Providers Care Compliance Officer Name Role Phone Cassia Blanco Dr Primary Care Provider Unavailabl e Reason for Visit * Reason Onset Date Comments Appointment 09/30/2024 Forms/questionnaires 09/30/2024 Night tech questions Encounter Details Date Type Department Care Team (Late st Contact Info) Description 09/30/2024 Telephone [facility] [address] [facility] [address] [place] [address] Cheko Garza MD 300 [facility] [place] [address] Appointment; Forms/questionnaires (Night tech questions) Social History [...] sure one finger is free of nail wolof, acrylic, gel etc. For finger sensor at time of study. documented in this encounter Plan of Treatment Upcoming Encounters Date Type Department Care Team (Late st Contact Info) Description 11/19/2024 8:00 PM EDT Procedure Visit [facility] [address] [facility] [address] [place] [address] 01/13/2025 2:20 PM EST Telemedicine [facility] [address] [facility] 690 [place] [address] Aubrey Chang MD [address] [phone] 04/14/2025 2:20 PM EST Office Visit [facility] [address] [address] Aubrey Chang MD 401 [facility] 310 [place] [address] documented as of this encounter Visit Diagnoses Not on filedocumented in this encounter Care Teams Compliance Officer Relationship Specialty Start Date End Date Cassia Blanco Dr. PCP - General 09/08/24 10/05/24 documented as of this encounter
--- OUTSIDE RECORDS SUMMARY | 2024-11-12 13:01 | XMS_ITS | Encounter Summary ---
Author Organization [facility] Address [address] [facility] [address] [place] [address] Care Team Providers Care Sanitation Engineer Name Role Phone Cassia Blanco Dr Primary Care Provider Unavailabl e Reason for Referral * Consultation (Routine) - Authorized Specialty Diagnoses / Procedures Referred By Contac t Referred To Contact Sleep Medicine Diagnoses Obstructive sleep apnea Procedures Polysomnography Abisai Booth MD 401 [facility] [address] [place] [address] Phone: tel: fax: [facility] - Sleep Center [address] [facility] 490 [place] [address] Phone: tel: fax: Referral ID Status Reason Start Date Expiration Date V isits Requested Visits Authorized [id number] Authorized 09/19/2024 10/19/2025 1 1 Encounter Details Date Type Department Care Team (Late st Contact Info) Description 09/19/2024 Orders Only [facility] [address] [facility] 310 [place] [address] Thomas Hoffmann MD 200 [place] [address] Pulmonary hypertension, not otherwise specified [...] Center [address] [place] [address] 01/13/2025 2:20 PM EST Telemedicine [facility] - Pulmonology [address] [facility] 6[address] [place] [address] Aubrey Chang MD 401 [facility] [address] [facility] [address] [place] [address] 04/14/2025 2:20 PM EST Office Visit [facility]monology [address] [address] Aubrey Chang MD [address] [address] Scheduled Orders Name Type Priority Associated Diagnoses Orde r Schedule Polysomnography Sleep Center Routine Obstructive sleep apnea Expected: 09/19/2024 (Approximate), Expires: 09/19/2025 documented as of this encounter Visit Diagnoses Diagnosis Pulmonary hypertension, not otherwise specified- Primary Obstructive sleep apnea documented in this encounter Care Teams Sanitation Engineer Relationship Specialty Start Date End Date Cassia Blanco Dr. PCP - General 09/08/24 10/05/24 documented as of this encounter
--- OUTSIDE RECORDS SUMMARY | 2024-11-12 13:01 | XMS_ITS | Encounter Summary ---
Author Organization [facility] Address [address] [facility] [address] [place] [address] Care Team Providers Care Fire Medic Name Role Phone System, Provider Not In Primary Care Provider Un available Reason for Visit * Reason Onset Date Comments Appointment 11/11/2024 Encounter Details Date Type Department Care Team (Late st Contact Info) Description 11/11/2024 [facility]phone [facility] [address] [facility] [address] [place] [id number] Cheko Garza MD 300 [facility] [place] [address] Appointment Social History Tobacco Use Types Packs/Day [...] * Telephone Encounter - Meaghan Garcia - 11/11/2024 12:59 PM EDT LVM to confirm appt. documented in this encounter Plan of Treatment Upcoming Encounters Date Type Department Care Team (Late Contact Info) Description 11/19/2024 8:00 PM EDT [facility] [address] [phone] 01/13/2025 2:20 PM EST Telemedicine [facility]monology [address] [address] Aubrey Chang MD [address] [phone] 04/14/2025 2:20 PM EST Office Visit [facility] [address] [address] Aubrey Chang MD [address] [phone] documented as of this encounter Visit Diagnoses Not on filedocumented in this encounter Care Teams Fire Medic Relationship Specialty Start Date End Date System, Provider Not In PCP - General 10/06/24 documented as of this encounter
--- OUTSIDE RECORDS SUMMARY | 2024-11-12 13:01 | XMS_ITS | Encounter Summary ---
Author Organization [facility] Address [address] [place] [address] Care Team Providers Care Manager Manufacturing Name Role Phone Cassia Blanco Dr Primary Care Provider Unavailabl e Reason for Visit * Reason Onset Date Comments Appointment 09/30/2024 Encounter Details Date Type Department Care Team ([facility] Contact Info) Description 09/30/2024 [facility]phone [facility] [address] [facility] 490 [place] [address] Cheko Garza MD 300 [facility] [place] [address] Appointment Social History Tobacco Use Types Packs/Day [...] left voice mail to return call to [phone]. documented in this encounter Plan of Treatment Upcoming Encounters Date Type Department Care Team (Late Contact Info) Description 11/19/2024 8:00 PM EDT [facility] [address] [facility] [address] [place] [address] 01/13/2025 2:20 PM EST Telemedicine [facility] Pulmonology [address] [address] Aubrey Chang MD [address] [place] [address] 04/14/2025 2:20 PM EST Office Visit [facility] [address] [address] Aubrey Chang MD [address] [place] [address] documented as of this encounter Visit Diagnoses Not on filedocumented in this encounter Care Teams Manager Manufacturing Relationship Specialty Start Date End Date Cassia Blanco Dr. PCP - General 09/08/24 10/05/24 documented as of this encounter
--- OUTSIDE RECORDS SUMMARY | 2024-11-12 13:01 | XMS_ITS | Encounter Summary ---
Author Organization [facility] Address [address] [place] [address] Care Team Providers Care Surveillance Dual Rate Officer Name Role Phone Jan Castelan MD Primary Care Provider [phone] Benjie Quezada MD Primary Care Provider Tamika Loomis APRN Primary Care Provider [phone] Maegan Bermeo MD Primary Care Provider [phone] Audra Wahl ELECTRIC METER INSTALLER HELPER Unavailable Unavailab Jessa Jimenez ELECTRIC METER INSTALLER HELPER Unavailable Unavailable Reason for Visit * Reason Comments Med Refill Encounter Details Date Type Department Care Team (Late st Contact Info) Description 12/28/2020 Refill Family and Community Medicine [address] [place] [address] Jan Castelan MD [address] [place] [address] Social History Tobacco Use Types [...] asymptomatic, not immunocompromised. Team aware. EVS notified. [facility] has verified patient has a COVID-19 positive result. A chart review has been completed, EPI PUI has been completed and sent to appropriate Health Dept. [facility] Wheel Roller: Nimco Demi 10/26/2021 10/26/2021 022 10:27 AM EDT COVID 19 (Confirmed) 11/11/2021 11/11/2021 022 5:23 AM EDT COVID-19 Rule-Out 05/16/2022 05/16/2022 05/16/2022 11:05 PM EDT documented as of this encounter Care Teams Surveillance Dual Rate Officer Relationship Specialty Start Date End Date Jan Castelan MD [address] [place] [address] PCP - General 07/02/20 08/07/21 Benjie Quezada MD [address] [facility] 125 [place] [address] PCP - General Family Medicine 08/08/21 08/30/21 Tamika Loomis APRN [address] [facility] [address] [place] [address] PCP - General Family Medicine 08/31/21 09/14/21 Maegan Bermeo MD [address] [place] [address] PCP - General Family Medicine 09/15/21 Audra Wahl LPN [employer] [place] [address] TCM Nurse 09/27/21 10/27/21 Jessa Park LPN [employer] [place] [address] Registered Nurse 05/26/22 05/26/22 documented as of this encounter
--- OUTSIDE RECORDS SUMMARY | 2024-11-12 13:01 | XMS_ITS | Encounter Summary ---
Author Organization [facility] Address [address] [place] [address] Care Team Providers Care Client Onboarding Analyst Name Role Phone Cassia Blanco Dr Primary Care Provider Unavailabl e Reason for Visit * Reason Onset Date Comments Hospital f/u Appt Request 09/22/2024 Encounter Details Date Type Department Care Team (Late st Contact Info) Description 09/22/2024 Telephone [facility] [address] [place], [place] [address] Olga Lidia Dahl, DESIGN COORDINATOR Hospital f/u Appt Request Social History Tobacco [...] Dr. Barnett Referring Provider: Dr. Sutton @ [facility] Office Phone: Office Fax: Diagnosis: Severe Pre-Capillary PH How was disease diagnosed? Patient presented to [facility] with shortness of air and volume overload. Reported at that time to have periodic shortness of air for several years with the last 1 year having worsened. She reported being severely limited in activity due to her symptoms. [facility] as she lives in [facility]. During this stay, patient underwent RHC revealing [...] and location. * Telephone Encounter - Monique lOsen MA - 09/22/2024 11:23 AM EDT Called [...] Physicians - Sleep Center [address] [facility] [address] [facility] 490 [place] [address] 01/13/2025 2:20 PM EST Telemedicine [facility] - Pulmonology [address] [facility] 690 [place] [address] Aubrey Chang MD 401 [facility] 310 [place] [address] 04/14/2025 2:20 PM EST Office Visit [facility] Pulmon[facility] [address] [facility] 6[address] [place] [address] Aubrey Chang MD [address] [address] documented as of this encounter Visit Diagnoses Not on filedocumented in this encounter Care Teams Client Onboarding Analyst Relationship Specialty Start Date End Date Cassia Blanco Dr. PCP - General 09/08/24 10/05/24 documented as of this encounter
--- OUTSIDE RECORDS SUMMARY | 2024-11-12 13:01 | XMS_ITS | Encounter Summary ---
Author Organization [facility] Address [address] [place] [address] Care Team Providers Care Cooker Loader Name Role Phone Jan Castelan MD Primary Care Provider [phone] Benjie Quezada MD Primary Care Provider Tamika Loomis APRN Primary Care Provider [phone] Maegan Bermeo MD Primary Care Provider [phone] Audra Wahl EDUCATIONAL ADMINISTRATOR Unavailable Unavailab Jessa Jimenez EDUCATIONAL ADMINISTRATOR Unavailable Unavailable Reason for Visit * Reason Comments Med Refill Encounter Details Date Type Department Care Team (Late st Contact Info) Description 02/22/2021 Refill Family and Community Medicine [address] [place] [address] Jan Castelan MD [address] [place] [address] Uncontrolled type 2 diabetes mellitus with hyperglycemia ([facility]) Social History Tobacco Use Types Packs/Day [...] Uncontrolled type 2 diabetes mellitus with hyperglycemia documented in this encounter Additional Health Concerns Infection Onset Date Last Indicated Resolved Time COVID 19 (Confirmed) Comment:Patient is >10 days from COVID test date on 10/26/2021 and patient no longer needs COVID isolation as patient is asymptomatic, not immunocompromised. Team aware. EVS notified. [facility] has verified patient has a COVID-19 positive result. A chart review has been completed, EPI PUI has been completed and sent to appropriate Health Dept. [facility] Repossessor: Brandiedon Demi 10/26/2021 10/26/2021 022 10:27 AM EDT COVID 19 (Confirmed) 11/11/2021 11/11/2021 022 5:23 AM EDT COVID-19 Rule-Out 05/16/2022 05/16/2022 05/16/2022 11:05 PM EDT documented as of this encounter Care Teams Cooker Loader Relationship Specialty Start Date End Date Jan Castelan MD [address] [place] [address] PCP - General 07/02/20 08/07/21 [place] [address] [place] [address] 125 [place] [address] PCP - General Family Medicine 08/08/21 08/30/21 Tamika Loomis APRN [address] [place] [address] PCP - General Family Medicine 08/31/21 09/14/21 Maegan Bermeo MD [address] [place] [address] PCP - General Family Medicine 09/15/21 Audra Wahl LPN [employer] [place] [address] TCM Nurse 09/27/21 10/27/21 Jessa Park LPN [employer] [place] [address] Registered Nurse 05/26/22 05/26/22 documented as of this encounter
--- OUTSIDE RECORDS SUMMARY | 2024-11-12 13:01 | XMS_ITS | Clinical Summary ---
Author Organization [facility] Address [address] [place] [address] Care Team Providers Care Gas Meter Repair Supervisor Name Role Phone Maegan Bermeo MD Primary Care Provider [phone] Allergies Active Allergy Reactions Criticality Noted Date [...] is elevated above patient's baseline of around 6168-1030 -most recent echo obtained in October 2021 [...] hold home lasix while using IV diuresis Osteolysis 05/16/2022 Overview (05/17/2022): -did show findings consistent with an old fracture at T12 from a previous fall with subsequent erosive changes that have progressed from prior imaging in October 2021 -interval erosion to the endplate of L1 noted to possibly represent diskitis versus osteomyelitis -patient complaining of back but pain at time of arrival to [facility] PLAN: -pain control initially with p.r.n. Tylenol [...] meds restarted Thrombocytosis 10/28/2021 Overview (11/01/2021): Monitor/trend Lesion of uterus 10/27/2021 Overview (10/27/2021): Noted on imaging Hypodense lesion along the fundus and heterogenous lesion along the anterior wall Follow up as outpatient Closed fracture of T12 vertebra 10/26/2021 Overview [...] on 12/01 Chronic atrial fibrillation 10/11/2021 Overview (05/17/2022): -home regimen of Metoprolol succinate 50 mg daily and eliquis 5mg BID PLAN: -telemetry -continue eliquis -hold metoprolol in setting of CHFE Morbid obesity with body mass index (BMI) [...] Problem Noted Date Diagnosed Date Resolved Date WALE (acute kidney injury) 05/16/2022 Overview (05/17/2022): -Cr elevated to 1.26 (baseline 0.6-0.7) on admission -suspect pre-renal etiology given fluid overloaded state PLAN: -urine lytes -I&Os -daily labs At high risk for falls 12/15/202112/15 Frequent UTI 10/28/2021 10/30/2021 Overview (10/28/2021): Continue home abx; last dose 10/28 COVID 10/27/2021 11/09/2024 Overview (11/11/2021): Out of isolation Anemia of chronic disease 10/27/2021 Overview (10/27/2021): Monitor Hypoalbuminemia 10/27/2021 10/29/2021 Overview (10/27/2021): Resume diet Hernia of abdominal wall 10/27/202112/2021 Overview (10/27/2021): Noted on imaging; left Fat containing Sinus mucosal thickening 10/27/202111/2021 Overview (10/27/2021): Noted on imaging Follow up as outpatient as needed Fall 10/27/2021 11/09/2024 Overview (11/01/2021): Admit SGT Lumbar facet joint pain 10/26/202110/20 Overview (10/29/2021): [...] and be activity as tolerated. No trapeze. Acute respiratory failure with hypoxia 10/26/2021 11/09/2024 Overview (05/17/2022): -pt noted to be hypoxic at home and arrived on 2L O2 supplementation -was able to be weaned to RA briefly in ED but subsequently became hypoxic to low 80s requiring 4L supplementation to be restarted -CXR without acute findings, showing chronic cardiomegaly and signs consistent with congestion PLAN: -wean O2 as tolerated -continue diuresis in setting of CHFE Rhabdomyolysis 10/26/2021 10/29/2021 Overview (10/29/2021): CK 484 on arrival to the ED. HLIVF Repeat lab WNL Staghorn calculus 10/26/2021 10/29/2021 Overview (10/26/2021): R renal staghorn calculus, Cr normal. Cholelithiasis 10/26/2021 10/29/2021 Overview (10/26/2021): Cholelithiasis notable on CT abdomen pelvis with mildly elevated alk-phos, but no TTP in RUQ or symptoms. At high risk for falls 10/11/202110/27 Right ventricular dilation 10/11/2021 0 11/09/2024 Overview (11/06/2021): Noted on ECHO following recent hospitalization Patient has outpatient Cardiology follow up Continue volume management with diuresis Hypoglycemia secondary to sulfonylurea 09/24/2021 10/11/2021 Overview [...] Description 09/15/2024 10:40 AM EDT Office Visit [facility] [address] [place] [address] Raimundo Hatch DPM Ulcer of toe of left foot, with fat layer exposed (CMS/HCC) (Primary Dx); Diabetic neuropathy with neurologic complication (CMS/HCC); Corns and callosities; Nail dystrophy 09/15/2024 Travel 08/18/2024 9:20 AM EDT Office Visit [facility] [address] [place] [address] Raimundo Hatch DPM Hammer toe, acquired (Primary Dx) 08/18/2024 Travel from Last 3 Months Immunizations Immunization [...] drink first t ken in the morning (EYE-INFUSION THERAPY NURSE) to steady your nerves or to get [...] Additional history exists [facility]-Depression Screening 06/08/2023 06/07/2022 [id number]-BMCNT-20 Vaccine ( season) 2024 01/05/2022, 01/07/2021, 06/11/2020, [...] AM EST 03/01/2022 8:45 AM EST Narrative [facility] - 03/01/2022 1:22 PM EST HA1C Interpretive Data: Diagnosis of Diabetes: Diabetic > or = 6.5% Pre-diabetic 5.7 to 6.4% Non-diabetic < or = 5.6% Glycemic Targets for Type I and Type II Diabetics: Non- Adults <7.0% Adults <6.0% Children and Adolescents <7.5% Source: [place] [employer]. Standards of medical care in diabetes,2017. Diabetes Care.2017:40 (suppl 1):S1-S135. HbA1c assay performed by an ion-exchange chromatography method that is certified traceable to the DCCT. us Maegan Bermeo MD LAB BLOOD ORDERABLES Final Re sult [facility] [address] [place] [id number] * Hepatitis C Antibody - ED (09/24/2021 7:52 AM EDT) Hepatitis C Antibody Negative Negative 09/24/2021 9:51 AM EDT [facility] Blood Venous blood specimen / Unknown Venipuncture / Unknown 09/24/2021 7:52 AM EDT 09/24/2021 8:10 AM EDT us Farida Sharif MD LAB BLOOD ORDERABLES Final Res ult [facility] [address] [place] [address] * MAMMOGRAPHY EXTERNAL RESULTS (01/20/2019) Anatomical Region [...] Recently Relevant to Health Maintenance Insurance MEDICARE [facility] Advance Directives * DNR/DNI (Latest Code Status [...] Patient has decision-making capacity? Yes Care Teams Gas Meter Repair Supervisor Relationship Specialty Start Date End Date Maegan Bermeo MD [address] [address] PCP - General Family Medicine 09/15/21
--- OUTSIDE RECORDS SUMMARY | 2024-11-12 13:01 | XMS_ITS | Encounter Summary ---
Author Organization Healthcare Address [address] [place] [address] Care Team Providers Care Edge Polisher Name Role Phone Maegan Bermeo MD Primary Care Provider [phone] Encounter Details Date Type Department Care Team (Late st Contact Info) Description 07/03/2024 Orders Only External Location [address] [place] [phone] Provider, External Social History Tobacco Use Types [...] drink first t ken in the morning (EYE-PALEOLOGY PROFESSOR) to steady your nerves or to get [...] PM EDT) Anatomical Region Laterality Modality Radiographic Hcelsi ging 07/03/2024 4:40 PM EDT us External [...] documented as of this encounter Care Teams Edge Polisher Relationship Specialty Start Date End Date Maegan Bermeo MD [address] [place] [address] PCP - General Family Medicine 09/15/21 documented as of this encounter
--- OUTSIDE RECORDS SUMMARY | 2024-11-12 13:01 | XMS_ITS | Encounter Summary ---
Author Organization [facility] Address [address] [place] [address] Care Team Providers Care Artillery Meteorological Man Name Role Phone Cassia Blanco Dr Primary Care Provider Unavailabl e Reason for Visit * Reason Onset Date Comments Hospital Follow Up 09/22/2024 Encounter Details Date Type Department Care Team ([facility] st Contact Info) Description 09/22/2024 Telephone [facility] Administrative Services [address] [facility] [address] [place] [address] Stefanie Graves RN Hospital Follow Up Social [...] 1955 Date of Discharge: 09/19/2024 Facility Discharged: [facility] Diagnosis at time of Discharge: Severe pulmonary hypertension Cor pulmonale Severe TR Date of Call: 09/23/2024 Date of [facility] Face-to Face Visit: Call Status Call Status: Completed General Clinical How are you feeling now?: Spoke with pt.'s daughter, Marisol. Marisol reports some confusion withwhere prescriptions were sent at d/c as prescriptions were sent to both [facility] and [facility] Pharmacies. Marisol ststes she has addressed [...] [address] [facility] [address] [place] [address] 01/13/2025 2:20 PM EST Telemedicine [facility] [address] [address] Aubrey Chang MD [address] [address] 04/14/2025 2:20 PM EST Office Visit [facility] [address] [address] Aubrey Chang MD [address] [address] documented as of this encounter Visit Diagnoses Not on filedocumented in this encounter Care Teams Artillery Meteorological Man Relationship Specialty Start Date End Date Cassia Blanco Dr. PCP - General 09/08/24 10/05/24 documented as of this encounter
[2024-11-12 13:33] LABS: Hematocrit 30.0 % (37.0-47.0); Hemoglobin 8.4 g/dL (12.2-16.2); Immature Granulocytes % 0.6 %; Mean Corpuscular HGB Conc 28.0 g/dL (31.8-35.4); Mean Corpuscular Hemoglobin 23.6 pg (27.0-31.2); Mean Corpuscular Volume 84.3 fl (81-99); Nucleated Red Blood Cells % 0.2 %; Platelet Count 431 K/mm3 (142-424); Red Blood Count 3.56 M/mm3 (4.20-5.40); Red Cell Distribution Width-SD 82.7 fL; White Blood Count 10.8 K/mm3 (4.8-10.8)
[2024-11-12 14:19] LABS: Anion Gap 10.7 mEq/L (5-15); Blood Urea Nitrogen 21 mg/dl (7-17); Calcium 8.7 mg/dl (8.4-10.2); Carbon Dioxide 36 mmol/L (22.0-30.0); Chloride 91 mmol/L (98-107); Creatinine,Serum 0.90 mg/dl (0.52-1.04); Estimated Glomerular Filt Rate 62 ml/min (>60); GFR (African American) 75 ML/MIN (>60); Glucose 147 mg/dl (74-100); Magnesium 1.6 mg/dl (1.6-2.3); Potassium 3.7 mmoL/L (3.5-5.1); Sodium 134 mmol/L (136-145)
== END 2024-11-12 23:59 | disposition home or self-care (01) ==
LOC: LAB 12:58
PROVIDERS: PCP Nurse Practitioner Family; Visit Provider Nurse Practitioner Family
DX: I50.42 Chronic combined systolic (congestive) and diastolic (congestive) heart failure (principal)
CPT/HCPCS: 36415; 80048; 83735; 85025

== ENCOUNTER 2024-11-18 15:19 | Inpatient (IN) | payer MEDICARE, BC, SELFPAY ==
--- OUTSIDE RECORDS SUMMARY | 2024-10-06 14:00 | XMS_ITS | Encounter Summary ---
Author Organization [facility] Address [address] [place] [address] Care Team Providers Care Asbestos Worker Name Role Phone System, Provider Not In Primary Care Provider Un available Reason for Visit * Reason Comments Tricuspid regurgitation Encounter Details Date Type Department Care Team (Late st Contact Info) Description 10/06/2024 2:00 PM EDT Office Visit [facility] Physicians - Cardiovascular Medicine [address] [place] [address] [address] [place] [address] Abisai Booth MD 401 [facility] [address] [place] [address] Tricuspid incompetence, non-rheumatic (Primary Dx); Shortness of breath; Heart valve disorder Social History Tobacco Use Types Packs/Day Years Used Date Smoking Tobacco: Never Smokeless Tobacco: Never Tobacco Cessation:Counseling Given: Not Answered Alcohol Use Standard Drinks/Week Comments Never 0 (1 standard drink = 0.6 oz pur e alcohol) Depression Answer Date Recorded PHQ-2 Total Score 2 10/07/2024 Comments Unknown Sex and Gender Information Value Date Recorded Sex Assigned at Not on file Legal Sex Female 10:15 AM EDT Gender Identity Not on file Sexual Orientation Not on file documented as of this encounter Last Filed Vital Signs Vital Sign Reading Time Taken Comments Blood Pressure 77/51 10/06/2024 2:30 PM EDT Pulse 73 10/06/2024 2:30 PM EDT Temperature - - Respiratory Rate - - Oxygen Saturation 92% 10/06/2024 2:30 PM EDT Inhaled Oxygen Concentration - - Weight 99.1 kg (218 lb 6.4 oz) 10/06/2024 2:30 P M EDT Height 162.6 cm (5' 4 ) 10/06/2024 2:30 PM EDT Body Mass Index 37.49 10/06/2024 2:30 PM EDT documented in this encounter Functional Status * Question Answer Date of Assessment Author Over the past 2 weeks, how o ften have you been bothered by feeling little interest or pleasure in doing things? 1 10/07/2024 2:46 PM EDT Jules Clayton MA Over the past 2 weeks, how o ften have you been bothered by feeling down, depressed, or hopeless? 1 10/07/2024 2:46 PM EDT Shikha Clayton MA PHQ-2 Total Score 2 10/07/2024 2:46 PM EDT Shikha Clayton MA * PHQ-2 Total Answer Date of Assessment Author 2 10/07/2024 2:46 PM EDT Carlo Clayton MA documented as of this encounter Progress Notes * Abisai Booth MD - 10/06/2024 2:00 PM EDT Images from the original note were not included. Structural Heart & Valve Intervention [facility] Cardiology Chief Complaint Patient presents with Tricuspid regurgitation Encounter Diagnoses Name Primary? Tricuspid incompetence, non-rheumatic Yes Shortness of breath Heart valve disorder History of Present Illness Rica Flannery is a 69 y.o. female that presents to [facility] for evaluation for tricuspid regurgitation and consideration for percutaneous transcatheter czyc-cr-uslc tricuspid valve repair with TriClip (tricuspid clip). She was referred by Dr. Carreno. Recent evaluation with transesophageal echocardiography showed a preserved LVEF of 65%, flattened intraventricular septum in systole diastole consistent with right ventricular pressure and volume overload, very significant severe tricuspid regurgitation, functional TR with elevated pulmonary arterypressures with a mean pulmonary pressure of 52 mmHg. Cardiac catheterization showed nonobstructive coronary artery disease. On right heart catheterization she was noted to have severe pulmonary hypertension with a pulmonary artery systolic pressure of 98 mmHg and a mean pulm artery pressure 57 mmHg. She has also been evaluated by our pulmonary hypertension specialists and was recommended for outpatient pulmonary hypertension treatment. The patient's main complaint has been shortness of breath. EKG today in the office shows heart rate 67, atrial fibrillation. Current Outpatient Medications: Current Medications[1] ROS Constitutional: Patient denies fevers or chills. HEENT: Patient denies headache or diplopia. Cardiovascular: Patient denies chest pain. +Shortness of breath. Respiratory: Patient denies cough. Denies wheezing. GI: Patient denies abdominal pain or melena. Neurologic: Patient denies dizziness or weakness of extremities. Musculoskeletal: Patient denies arthritis or arthralgias. Skin: Patient denies rash or lesions. Psychiatric: No complaints of depression or somnolent mood. Problem List[2] Medical History[3] Family History[4] Social History Socioeconomic History Marital status: Spouse name: Not on file Number of children: Not on file Years of education: Not on file Highest education level: Not on file Occupational History Not on file Tobacco Use Smoking status: Never Smokeless tobacco: Never Substance and Sexual Activity Alcohol use: Never Drug use: Never Sexual activity: Not on file Other Topics Concern Not on file Social History Narrative Not on file Social Drivers of Health Financial Resource Strain: Not on file Food Insecurity: Not on file Transportation Needs: Not on file Physical Activity: Not on file Stress: Not on file Social Connections: Not on file Intimate Partner Violence: Not on file Housing Stability: Not on file Physical Exam 10/06/2024 2:30 PM 10/07/2024 2:45 PM Vitals Systolic 77 98 Diastolic 51 60 Heart Rate 73 77 Temp 97.5 ??F (36.4 ??C) Resp 16 Height (in) 5' 4 (1.626 m) 5' 4 (1.626 m) Weight (lb) 218.4 218.8 BMI 37.49 kg/m2 37.56 kg/m2 BSA (m2) 2.12 m2 2.12 m2 SpO2 92 % 98 % Visit Report Report Report Physical Exam Gen: Pleasant, no acute distress HEENT: oral mucosa moist, no bruits Chest Wall: No evidence of deformity Resp: Clear bilaterally, no wheezes Card: Regular rate, no murmur Abd: Soft, nontender, nondistended Skin: Normal color, texture and turgor w/o lesions or eruptions Ext: no lower extremity edema Psych: AAOx3, demonstrated good judgement and reason Data: Lab Results Component Value Date HGBA1C 5.5 03/01/2022 No data to display No data to display -- -- Assessment & Plan 69 y.o. female that presents to [facility] for evaluation for tricuspid regurgitation and consideration for percutaneous transcatheter zmap-fn-mxby tricuspid valve repair with TriClip (tricuspid clip). Severe tricuspid valve regurgitation Severe pulmonary hypertension Nonobstructive coronary artery disease I discussed in detail the patient's cardiac evaluation and the results of our structural heart and valve multidisciplinary conference discussion with the patient and her family today. Although she does have severe tricuspid valve regurgitation my concern is that she has concomitant severe pulmonary hypertension. Her severe pulmonary hypertension is a relative contraindication for tricuspid valve clip. I feel that even if we were able to place a tricuspid valve clip her pulmonary hypertension would be left untreated and her symptoms of shortness of breath would not improve. I recommend she undergo close follow- up with our pulmonary hypertension team / pulmonology for consideration for pulmonary hypertension therapies. At this time I do not feel she would be a good candidate for tricuspid valve clip. Abisai Booth MD Structural Heart & Valve Disease [facility] Interventional Cardiology - [facility] Orthopedic Brace Maker, [facility] [phone] 10/06/2024 [1] Current Outpatient Medications: atorvastatin (Lipitor) 40 MG tablet, Take 40 mg by mouth in the morning., Disp: , Rfl: bumetanide (Bumex) 1 MG tablet, Take 1 mg by mouth in the morning and 1 mg in the evening., Disp: ,Rfl: dapagliflozin (Farxiga) 10 MG, Take 10 mg by mouth in the morning., Disp: , Rfl: DULoxetine (Cymbalta) [address] capsule, , Disp: , Rfl: Eliquis 5 MG tablet, , Disp: , Rfl: Entresto 24-26 MG tablet, Take 1 tablet by mouth in the morning and 1 tablet in the evening., Disp:, Rfl: ferrous sulfate 325 (65 Fe) MG tablet, Take 1 tablet by mouth every other day., Disp: , Rfl: Januvia 50 MG tablet, , Disp: , Rfl: metoprolol succinate XL (Toprol-XL) 25 MG 24 hr tablet, , Disp: , Rfl: Mounjaro 5 MG/0.5ML solution auto-injector, INJECT 0.5 ML SUBCUTANEOUSLY ONCE A WEEK, Disp: , Rfl: nystatin (Mycostatin) 946014 UNIT/GM powder, Apply topically in the morning and before bedtime., Disp: , Rfl: pantoprazole (ProtoNix) 40 MG EC tablet, Take 40 mg by mouth in the morning., Disp: , Rfl: spironolactone (Aldactone) 25 MG tablet, Take 25 mg by mouth in the morning., Disp: , Rfl: zolpidem (Ambien) 5 MG tablet, Take 5 mg by mouth 1 (one) time each day if needed., Disp: , Rfl: tadalafil, antihypertensive, (Adcirca) 20 mg tablet, Take 1 tablet by mouth in the morning., Disp: 360 tablet, Rfl: 11 [2] Patient Active Problem List Diagnosis Acquired deformity of toe Acute exacerbation of chronic congestive heart failure Acute respiratory failure with hypoxia Anasarca At high risk for fall Body mass index 40+ - severely obese (CMS/HCC) Chronic atrial fibrillation (CMS/HCC) Chronic right-sided heart failure COVID-19 Diabetic neuropathy with neurologic complication Essential (primary) hypertension Fall Fracture of twelfth thoracic vertebra (CMS/HCC) Generalized anxiety disorder Lesion of uterus Mixed hyperlipidemia Osteolysis Pleural effusion Polyneuropathy due to type 2 diabetes mellitus Right cardiac ventricular dilatation Thrombocytosis Ulcer of toe of left foot [3] No past medical history on file. [4] No family history on file. documented in this encounter Plan of Treatment Upcoming Encounters Date Type Department Care Team (Late st Contact Info) Description 01/13/2025 2:20 PM EST Telemedicine [facility] - Pulmonology [address] [address] Aubrey Chang MD [address] [address] 04/14/2025 2:20 PM EST Office Visit [facility] - Pul[facility] [address] [address] Aubrey Chang MD [address] [address] documented as of this encounter Procedures Procedure Name Priority Date/Time Associated Diagnosis Comments ECG 12-LEAD Routine 10/06/2024 2:32 PM EDT Tricuspid incompetence, non-rheumatic documented in this encounter Results * ECG 12 Lead (10/06/2024 2:32 PM EDT) Abisai Booth MD ECG ORDERABLES Final Result documented in this encounter Visit Diagnoses Diagnosis Tricuspid incompetence, non-rheumatic- Primary Shortness of breath Heart valve disorder documented in this encounter Care Teams Asbestos Worker Relationship Specialty Start Date End Date System, Provider Not In PCP - General 10/06/24 documented as of this encounter
--- OUTSIDE RECORDS SUMMARY | 2024-10-07 14:00 | XMS_ITS | Encounter Summary ---
Author Organization [facility] Address [address] [place] [address] Care Team Providers Care Numberer And Wirer Name Role Phone System, Provider Not In Primary Care Provider Un available Reason for Visit * Consultation (Routine) - Closed Specialty Diagnoses / Procedures Referred By Contallison t Referred To Contact Pulmonology Diagnoses Pulmonary hypertension Procedures Pulmonary function test Aubrey Chang MD [address] [facility] [place] [address] Phone: tel: fax: [facility] [address] [facility] [address] [place] [address] Phone: tel: fax: Referral ID Status Reason Start Date Expiration Date V isits Requested Visits Authorized [id number] Closed Specialty Services Required 09/22/2024 10/22/2025 1 1 Encounter Details Date Type Department Care Team (Latest Contact Info) Description 10/07/2024 2:00 PM EDT [facility] [address] [facility] [address] [place], [place] [phone] Pulmonary hypertension Social History Tobacco Use Types [...] Info) Description 01/13/2025 2:20 PM EST Telemedicine [facility] - Pulmonology [address] [address] Aubrey Chang MD [address] [address] [phone] 04/14/2025 2:20 PM EST Office Visit [facility] - Pulmonology [address] [address] Aubrey Chang MD [address] [facility] [address] [phone] documented as of this encounter Procedures Procedure [...] hypertension documented in this encounter Care Teams Numberer And Wirer Relationship Specialty Start Date End Date System, Provider Not In PCP - General 10/06/24 documented as of this encounter
--- OUTSIDE RECORDS SUMMARY | 2024-10-07 14:40 | XMS_ITS | Encounter Summary ---
Author Organization [facility] Address [address] [facility] [address] [place] [address] Care Team Providers Care Principal Programmer Name Role Phone System, Provider Not In Primary Care Provider Un available Reason for Visit * Consultation (Routine) - Closed Specialty Diagnoses / Procedures Referred By Contac t Referred To Contact Pulmonology Diagnoses Pulmonary hypertension Procedures Six Minute Walk Test Aubrey Chang MD [address] [facility], [address] [place] [address] Phone: tel: fax: [facility] [address] [facility] 310 [place] [address] Phone: tel: fax: Referral ID Status Reason Start Date Expiration Date V isits Requested Visits Authorized [id number] Closed Specialty Services Required 09/22/2024 10/22/2025 1 1 Encounter Details Date Type Department Care Team (Latest Contact Info) Description 10/07/2024 2:40 PM EDT [facility] [address] [facility] [address] [place], [place] [phone] Pulmonary hypertension Social History Tobacco Use Types [...] Telemedicine [facility] - Pulmonology [address] [address] Aubrey Chang MD 401 [facility] [address] [phone] 04/14/2025 2:20 PM EST Office Visit [facility] - Pulmonology [address] [address] Aubrey Chang MD [address] [facility] [address] [phone] documented as of this encounter Procedures Procedure [...] hypertension documented in this encounter Care Teams Principal Programmer Relationship Specialty Start Date End Date System, Provider Not In PCP - General 10/06/24 documented as of this encounter
--- OUTSIDE RECORDS SUMMARY | 2024-10-07 15:00 | XMS_ITS | Encounter Summary ---
Author Organization [facility] Address [address] [facility] [address] [place] [address] Care Team Providers Care Crane Rigger Name Role Phone System, Provider Not In Primary Care Provider Un available Reason for Referral * Medications - Authorized Specialty Diagnoses / Procedures Referred By Contac t Referred To Contact Diagnoses Pulmonary hypertension, not otherwise specified Aubrey Chang MD [address] [place] [address] [address] [place] [address] Phone: tel: fax: Referral ID Status Reason Start Date Expiration Date V isits Requested Visits Authorized [id number] Authorized 09/23/2024 02/18/2099 1 1 * Sleep (Routine) - Closed Specialty Diagnoses / Procedures Referred By Contac t Referred To Contact Sleep Medicine Diagnoses Pulmonary hypertension, not otherwise specified Obstructive sleep apnea syndrome Aubrey Chang MD [address] [place] [address], [address] [place] [address] Phone: tel: fax: [place] [address] Phone: tel: fax: Referral ID Status Reason Start Date Expiration Date V isits Requested Visits Authorized [id number] Closed Specialty Services Required 10/07/2024 11/06/2025 1 [...] Visit [facility] - Pulmonology [address] [facility] [address] [place] [address] Aubrey Chang MD [address] [facility] [address] [place] [address] Pulmonary hypertension, not otherwise specified [...] Assessment Author 2 10/07/2024 2:46 PM EDT Shikha Clayton MA documented as of this encounter Progress Notes * Hans Casas MD - 10/07/2024 3:00 PM EDT [facility] - PULMONOLOGY CLINIC NOTE Patient: [...] and lightheadedness when standing up. Recently saw metal sorter yesterday and metoprolol discontinued. BP during visit [...] Body mass index 40+ - severely obese ([facility]) 06/06/2021 Chronic atrial fibrillation ([facility]) 10/11/2021 Chronic right-sided heart failure 10/31/2021 COVID-19 10/27/2021 Diabetic neuropathy with neurologic complication 08/11/2024 Essential (primary) hypertension 05/24/2017 Fall 10/27/2021 Fracture of twelfth thoracic vertebra ([facility]) 10/26/2021 Generalized anxiety disorder 03/04/2021 Lesion of [...] ML SUBCUTANEOUSLY ONCE A WEEK nystatin (Mycostatin) 205113 UNIT/GM powder 2 times daily RT pantoprazole [...] , INR , ANAPATTRN , ANATITERADD , [id number] , ALPHA1 , HIV1X2 , ANCA , [...] 3 months (around 01/07/2025). Hans Casas MD [facility] - PULMONOLOGY 10/07/2024 [1] History [...] EST Telemedicine [facility] - Pulmonology [address] [address] Aubrey Chang MD [address] [phone] 04/14/2025 2:20 PM EST Office Visit [facility] Pul[facility] [address] [address] Aubrey Chang MD [address] [place] [phone] Scheduled Referrals Name Type Priority Associated Diagnoses Order Schedule Ambulatory referral to Sleep Studies Outpatient Referral Routine Pulmonary hypertension, not otherwise specified Obstructive sleep apnea syndrome Ordered: 10/07/2024 documented as of this encounter Visit Diagnoses Diagnosis Pulmonary hypertension, not otherwise specified- Primary Obstructive sleep apnea syndrome documented in this encounter Care Teams Crane Rigger Relationship Specialty Start Date End Date System, Provider Not In PCP - General 10/06/24 documented as of this encounter
--- OUTSIDE RECORDS SUMMARY | 2024-10-12 20:00 | XMS_ITS | Clinical Summary ---
Author Organization Unknown Care Team Providers Care Real Estate Legal Secretary Name Role Phone BRENT VERA DO Unavailable Unavailable TISHA RN, HERNAN Unavailable Unavailable AURELIANO JOHNSONN, SANJUANITA Unavailable Unavailable Payers Payer Name Policy Type Policy Number Effective Date Expira tion Date MEDICARE.PALMETTO.PDGM [id number] Problems Condition Name Condition Details Condition Category Status Onset Date Resolution Date Last Treatment Date Treating Clinician Comments HYPERTENSIVE HEART DISEASE WITH HEART FAILURE Active 09-25 00:00: 00 ACUTE ON CHRONIC COMBINED SYSTOLIC AND DIASTOLIC HRT FAIL Active 09-25 00:00: 00 PULMONARY HYPERTENSION , UNSPECIFIED Active 09-25 00:00: 00 TYPE 2 DIABETES MELLITUS WITH DIABETIC NEUROPATHY, UNSP Active 09-25 00:00: 00 PAROXYSMAL ATRIAL FIBRILLATION Active 09-25 00:00: 00 NONRHEUMATIC TRICUSPID (VALVE) INSUFFICIENC Y Active 09-25 00:00: 00 ELEVATED WHITE BLOOD CELL COUNT, UNSPECIFIED Active 09-25 00:00: 00 INSOMNIA, UNSPECIFIED Active 09-25 00:00: 00 OTHER CONSTIPATION Active 09-25 00:00: 00 HYPERLIPIDEM IA, UNSPECIFIED Active 09-25 00:00: 00 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 ANTICOAGULAN TS Active 09-25 00:00: 00 LNG TRM (CRNT) USE INJECTABLE NON-INSULIN ANTIDIABETIC DRUGS Active 09-25 00:00: 00 PERSONAL HISTORY OF (HEALED) TRAUMATIC FRACTURE Active 09-25 00:00: 00 PERSONAL HISTORY OF URINARY (TRACT) INFECTIONS Active 09-25 00:00: 00 RETIREMENT (CURRENT) USE OF ORAL HYPOGLYCEMIC DRUGS Active 7-28 00:00: 00 HISTORY OF FALLING Active 8-02 00:00: 00 Allergies, Adverse Reactions, Alerts Allergy Name Allergy Type Status Severity Reaction(s) Onset Date Inactive Date Treating Clinician Comments *LEVAQUIN Propensity to adverse reactions Active 2024-09 15:17:4 4 DEMEROL Propensity to adverse reactions Active 2024-09 15:17:5 1 Medications Ordered Medication Name Filled Medication Name Start Date Stop Date Current Medication? Ordering Clinician Indication Dosage Frequency Signature (SIG) Comments Components nitrofurant oin monohydrate /macrocryst als 100 mg capsule 1- 00:00: 00 03-02 00:00 :00 No [id number] Unavailable Per instruc tions Per instructio ns (route: oral) Med Classific ation: Genitouri nary Therapy duloxetine 60 mg capsule,del ayed release 2021-02 00:00: 00 03-02 00:00 :00 No [id number] Per instruc tions Per instructio ns (route: oral) Med Classific ation: Central Nervous System Agents Eliquis 5 mg tablet 2021-02 00:00: 00 02-06 23:59 :00 No [id number] AFIB 1 tablet DAILY 1 tablet DAILY (route: oral) Med Classific ation: Hematolog ical Agents furosemide 20 mg tablet 2021-02 2 00:00: 00 02-06 23:59 :00 No [id number] BLOOD THINNER 1 tablet 2 TIMES DAILY 1 tablet 2 TIMES DAILY (route: oral) Med Classific ation: Cardiovas cular Therapy Agents Januvia 100 mg tablet 2021-02 2 00:00: 00 02-06 23:59 :00 No [id number] DIABETES 1 tablet DAILY 1 tablet DAILY (route: oral) Med Classific ation: Endocrine losartan 50 mg tablet 2021-02 2 00:00: 00 03-02 00:00 :00 No [id number] Per instruc tions Per instructio ns (route: oral) Med Classific ation: Cardiovas cular Therapy Agents metformin ER 500 mg tablet,exte nded release 24 hr 2021-02 00:00: 00 02-06 23:59 :00 No [id number] DIABETES 1 tablet 2 TIMES DAILY 1 tablet 2 TIMES DAILY (route: oral) Med Classific ation: Endocrine metoprolol succinate ER 50 mg tablet,exte nded release 24 hr 2021-02 00:00: 00 02-06 23:59 :00 No [id number] ANGINA 1 tablet DAILY 1 tablet DAILY (route: oral) Med Classific ation: Cardiovas cular Therapy Agents nortriptyli ne 25 mg capsule 2021-02 00:00: 00 02-06 23:59 :00 No [id number] DEPRESSION 1 capsule DAILY 1 capsule DAILY (route: oral) Med Classific ation: Central Nervous System Agents simvastatin 20 mg tablet 2021-02 00:00: 00 02-06 23:59 :00 No [id number] CHOLESTEROL 1 tablet BEDTIME 1 tablet BEDTIME (route: oral) Med Classific ation: Cardiovas cular Therapy Agents hydrochloro thiazide 50 mg tablet 2021-02 00:00: 00 03-02 00:00 :00 No [id number] Unavailable Per instruc tions Per instructio ns (route: oral) Med Classific ation: Cardiovas cular Therapy Agents Acetaminoph en Extra Strength 500 mg tablet 03-02 00:00: 00 02-06 23:59 :00 No [id number] PAIN 2 tablet EVERY 6 HOURS 2 tablet EVERY 6 HOURS (route: oral) Med Classific ation: Analgesic , Anti-infl ammatory or Antipyret ic losartan 50 mg tablet 03-02 00:00: 00 02-06 23:59 :00 No [id number] HYPERTENSIO N 1 tablet DAILY 1 tablet DAILY (route: oral) Med Classific ation: Cardiovas cular Therapy Agents Mounjaro 5 mg/0.5 mL subcutaneou s pen injector 09-19 00:00: 00 Yes [id number] DIABETES 5 mg WEEKLY 5 mg WEEKLY (route: subcutaneo us) Med Classific ation: Endocrine atorvastati n 40 mg tablet 09-17 00:00: 00 Yes [id number] CHOLESTEROL 40 mg DAILY 40 mg DAILY (route: oral) Med Classific ation: Cardiovas cular Therapy Agents bumetanide 1 mg tablet 09-17 00:00: 00 Yes [id number] DIURETIC 2 mg 2 TIMES DAILY 2 mg 2 TIMES DAILY (route: oral) Med Classific ation: Cardiovas cular Therapy Agents duloxetine 60 mg capsule,del ayed release 09-17 00:00: 00 09-25 00:00 :00 No [id number] Per instruc tions Per instructio ns (route: oral) Med Classific ation: Central Nervous System Agents Eliquis 5 mg tablet 09-17 00:00: 00 Yes [id number] BLOOD THINNER 5 mg 2 TIMES DAILY 5 mg 2 TIMES DAILY (route: oral) Med Classific ation: Hematolog ical Agents Entresto 24 mg-26 mg tablet 09-17 00:00: 00 Yes [id number] CHF 1 tablet DAILY 1 tablet DAILY (route: oral) Med Classific ation: Cardiovas cular Therapy Agents famotidine 20 mg tablet 09-17 00:00: 00 Yes [id number] GERD 20 mg DAILY 20 mg DAILY (route: oral) Med Classific ation: Gastroint estinal Therapy Agents Farxiga 10 mg tablet 09-17 00:00: 00 Yes [id number] DIABETES 10 mg DAILY 10 mg DAILY (route: oral) Med Classific ation: Endocrine metoprolol succinate ER 25 mg tablet,exte nded release 24 hr 09-17 00:00: 00 Yes [id number] HTN 25 mg DAILY 25 mg DAILY (route: oral) Med Classific ation: Cardiovas cular Therapy Agents nortriptyli ne 25 mg capsule 09-17 00:00: 00 Yes [id number] PAIN 25 mg DAILY 25 mg DAILY (route: oral) Med Classific ation: Central Nervous System Agents spironolact one 25 mg tablet 09-17 00:00: 00 Yes [id number] DIURETIC 25 mg DAILY 25 mg DAILY (route: oral) Med Classific ation: Cardiovas cular Therapy Agents cefadroxil 500 mg capsule 09-04 00:00: 00 Yes [id number] CHF 500 mg TWICE DAILY FOR 7 DAYS 500 mg TWICE DAILY FOR 7 DAYS (route: oral) Med Classific ation: Anti-Infe ctive Agents zolpidem 5 mg tablet 09-04 00:00: 00 Yes [id number] SLEEP 5 mg AT BEDTIME NIGHTLY NEEDED 5 mg AT BEDTIME NIGHTLY NEEDED (route: oral) Med Classific ation: Central Nervous System Agents famotidine 20 mg tablet 08-21 00:00: 00 09-25 00:00 :00 No [id number] Per instruc tions Per instructio ns (route: oral) Med Classific ation: Gastroint estinal Therapy Agents dextrometho rphan-guaif enesin 5 mg-100 mg/5 mL oral liquid 09-25 00:00: 00 Yes [id number] PRN COUGH 5 mL EVERY 6 HOURS 5 mL EVERY 6 HOURS (route: oral) Med Classific ation: Respirato ry Therapy Agents Vital Signs Vital Name Observation Time Observation Value Commen ts Temperature 2024-09-29 11:13:00.000 98.2 [degF] Temperature 2024-09-25 15:18:00.000 98.2 [degF] BMI (%) 2024-09-25 15:07:20.000 38 kg/m2 Height 2024-09-25 15:06:05.000 64 [in_us] Pulse 2024-10-09 10:18:00.000 53 /min Pulse 2024-09-29 11:13:00.000 60 /min Pulse 2024-09-25 15:18:00.000 62 /min O2 Saturation (%) 2024-10-09 10:18:00.000 94 % O2 Saturation (%) 2024-09-29 11:14:00.000 93 % Respirations 2024-10-09 10:18:00.000 18 /min Respirations 2024-09-29 11:13:00.000 18 /min Respirations 2024-09-25 15:18:00.000 18 /min Weight (lbs) 2024-10-09 10:25:00.000 218 [lb_av] Weight (lbs) 2024-09-25 15:07:20.000 225 [lb_av] Systolic Blood Pressure 2024-10-09 10:18:00.000 124 mm [Hg] Systolic Blood Pressure 2024-09-29 11:13:00.000 81 mm[ Hg] Systolic Blood Pressure 2024-09-25 15:18:00.000 93 mm[ Hg] Diastolic Blood Pressure 2024-10-09 10:18:00.000 66 mm [Hg] Diastolic Blood Pressure 2024-09-29 11:13:00.000 32 mm [Hg] Diastolic Blood Pressure 2024-09-25 15:18:00.000 45 mm [Hg] Plan of Treatment Planned Activity Planned Date Details Comments Future Scheduled Test RN TO OBSE RVE, ASSESS, EVALUATE, AND DEVELOP AN INDIVIDUALIZED PLAN OF CARE. AGENCY MAY ACCEPT ORDERS FROM CONSULTING PHYSICIANS RN TO OBSERVE AND ASSESS, HOME HEALTH OUTREACH COORDINATOR/MANAGER GREEN TO OBSERVE FOR RISK FOR FALLS AND INSTRUCT IN FALL PREVENTION, HOME SAFETY, MEDICATION MANAGEMENT, INFECTION PREVENTION, AND NUTRITION MANAGEMENT. RN/HOME HEALTH OUTREACH COORDINATOR/MANAGER GREEN NURSE MAY PERFORM O2 SATURATION LEVEL ON ADMISSION AND PRN FOR RN TO ASSESS/HOME HEALTH OUTREACH COORDINATOR TO OBSERVE PATIENT, WITH NOTIFICATION TO THE PHYSICIAN IF SATURATION IS 90% IN THE ABSENCE OF MORE SPECIFIC PARAMETERS FROM THE PHYSICIAN. AGENCY MAY PERFORM A RESUMPTION OF CARE VISIT FOLLOWING ANY HOSPITAL ADMISSION. RN/HOME HEALTH OUTREACH COORDINATOR/MANAGER GREEN TO MONITOR CO-MORBID CONDITIONS LISTED ON THE PLAN OF CARE AND ANY NEW CONDITIONS THAT PRESENT THEMSELVES DURING THIS EPISODE TO IDENTIFY CHANGES AND INTERVENE TO MINIMIZE COMPLICATIONS. [code = RN TO OBSERVE, ASSESS, EVALUATE, AND DEVELOP AN INDIVIDUALIZED PLAN OF CARE. AGENCY MAY ACCEPT ORDERS FROM CONSULTING PHYSICIANS RN TO OBSERVE AND ASSESS, HOME HEALTH OUTREACH COORDINATOR/MANAGER GREEN TO OBSERVE FOR RISK FOR FALLS AND INSTRUCT IN FALL PREVENTION, HOME SAFETY, MEDICATION MANAGEMENT, INFECTION PREVENTION, AND NUTRITION MANAGEMENT. RN/HOME HEALTH OUTREACH COORDINATOR/MANAGER GREEN NURSE MAY PERFORM O2 SATURATION LEVEL ON ADMISSION AND PRN FOR RN TO ASSESS/HOME HEALTH OUTREACH COORDINATOR TO OBSERVE PATIENT, WITH NOTIFICATION TO THE PHYSICIAN IF SATURATION IS 90% IN THE ABSENCE OF MORE SPECIFIC PARAMETERS FROM THE PHYSICIAN. AGENCY MAY PERFORM A RESUMPTION OF CARE VISIT FOLLOWING ANY HOSPITAL ADMISSION. RN/HOME HEALTH OUTREACH COORDINATOR/MANAGER GREEN TO MONITOR CO-MORBID CONDITIONS LISTED ON THE PLAN OF CARE AND ANY NEW CONDITIONS THAT PRESENT THEMSELVES DURING THIS EPISODE TO IDENTIFY CHANGES AND INTERVENE TO MINIMIZE COMPLICATIONS.] Future Scheduled Test RISK FOR H OSPITALIZATION; RN TO ASSESS/TEACH, MANAGER GREEN/HOME HEALTH OUTREACH COORDINATOR TO OBSERVE/TEACH PATIENT/CAREGIVER ON RISK FOR HOSPITALIZATION/EMERGENCY ROOM VISITS, TEACH SIGNS AND SYMPTOMS THAT PUT PATIENT AT RISK, WHEN TO NOTIFY NURSE/PHYSICIAN OF COMPLICATIONS/DECLINE, AND WHEN TO CALL 911. [code = RISK FOR HOSPITALIZATION; RN TO ASSESS/TEACH, MANAGER GREEN/HOME HEALTH OUTREACH COORDINATOR TO OBSERVE/TEACH PATIENT/CAREGIVER ON RISK FOR HOSPITALIZATION/EMERGENCY ROOM VISITS, TEACH SIGNS AND SYMPTOMS THAT PUT PATIENT AT RISK, WHEN TO NOTIFY NURSE/PHYSICIAN OF COMPLICATIONS/DECLINE, AND WHEN TO CALL 911.] Future Scheduled Test CARDIOVASC ULAR SYSTEM; RN TO ASSESS/TEACH, HOME HEALTH OUTREACH COORDINATOR/MANAGER GREEN TO OBSERVE/TEACH RELATED TO ALTERED CARDIOVASCULAR STATUS TO MINIMIZE COMPLICATIONS AND REDUCE HOSPITALIZATION. [code = CARDIOVASCULAR SYSTEM; RN TO ASSESS/TEACH, HOME HEALTH OUTREACH COORDINATOR/MANAGER GREEN TO OBSERVE/TEACH RELATED TO ALTERED CARDIOVASCULAR STATUS TO MINIMIZE COMPLICATIONS AND REDUCE HOSPITALIZATION.] Future Scheduled Test HEART FAIL URE; RN TO ASSESS/TEACH, HOME HEALTH OUTREACH COORDINATOR/MANAGER GREEN TO OBSERVE/TEACH CARDIOPULMONARY SYSTEM TO IDENTIFY SIGNS OF DECOMPENSATION AND INTERVENE TO MINIMIZE THE SEVERITY OF FLUID OVERLOAD. OBSERVE PATIENT ABILITY TO MONITOR AND RECORD DAILY WEIGHTS AND VITAL SIGNS, INCLUDING PULSE AND BLOOD PRESSURE; RECORD PATIENT REPORTED WEIGHT, OR WEIGH PATIENT NEEDED. REPORT INCREASED EDEMA OR WEIGHT GAIN OF >2 LBS IN 1 DAY OR >5 LBS IN 1 WEEK OR 5LBS OR MORE OVER TARGET WEIGHT. MAY MEASURE ABDOMINAL GIRTH IF UNABLE TO WEIGH. SCALES AND BP MONITOR TO BE PROVIDED IF NEEDED. [code = HEART FAILURE; RN TO ASSESS/TEACH, HOME HEALTH OUTREACH COORDINATOR/MANAGER GREEN TO OBSERVE/TEACH CARDIOPULMONARY SYSTEM TO IDENTIFY SIGNS OF DECOMPENSATION AND INTERVENE TO MINIMIZE THE SEVERITY OF FLUID OVERLOAD. OBSERVE PATIENT ABILITY TO MONITOR AND RECORD DAILY WEIGHTS AND VITAL SIGNS, INCLUDING PULSE AND BLOOD PRESSURE; RECORD PATIENT REPORTED WEIGHT, OR WEIGH PATIENT NEEDED. REPORT INCREASED EDEMA OR WEIGHT GAIN OF >2 LBS IN 1 DAY OR >5 LBS IN 1 WEEK OR 5LBS OR MORE OVER TARGET WEIGHT. MAY MEASURE ABDOMINAL GIRTH IF UNABLE TO WEIGH. SCALES AND BP MONITOR TO BE PROVIDED IF NEEDED.] Goal 2024-10-13 Patient Goal - TO GET STRONG ER Goal Provider Goal - A PLAN OF CARE WILL BE ESTABLISHED THAT MEETS THE PATIENT S NEEDS. PATIENT WILL DEMONSTRATE OXYGEN SATURATION WITHIN NORMAL LIMITS OR PATIENT S OPTIMAL LEVEL ESTABLISHED BY THE PHYSICIAN THROUGHOUT CARE. CHANGES TO CO-MORBID CONDITIONS AND ANY NEW CONDITIONS WILL BE IDENTIFIED AND REPORTED TO THE PHYSICIAN. Goal Provider Goal - PATIENT/CAREGIVER WILL VERBALIZE UNDERSTANDING OF SIGNS AND SYMPTOMS THAT PUT THE PATIENT AT RISK FOR HOSPITALIZATION /EMERGENCY ROOM VISITS, WHEN TO NOTIFY NURSE/PHYSICIAN OF COMPLICATIONS/DECLINE AND WHEN TO CALL 911. Goal Provider Goal - PATIENT / CAREGIVER WILL VERBALIZE/DEMONSTRATE UNDERSTANDING OF MEASURES TO MANAGE ALTERED CARDIOVASCULAR STATUS BY 60 DAYS Goal Provider Goal - PATIENT / CAREGIVER WILL VERBALIZE/DEMONSTRATE AN ABILITY TO ADHERE TO SELF-MANAGEMENT OF HF TO MINIMIZE COMPLICATIONS AND AVOID HOSPITALIZATION BY END OF EPISODE. Reason for Visit INDEPENDENT IN THE HOME Encounters Start Date/Time End Date/Time Encounter Type Admission Type Attending [facility] Care Department Encounter ID Discharge Date Discharge Status Discharge Condition Discharge Reason Percent Goals Met 2024-09-25 00:00:00 2024-10-13 00:00:00 Outpatient HERNAN JOHNS [facility] [id number] 2024-10-13 00:00:00 DISCHARGE TO HOME OR SELF CARE INDEPENDEN T IN THE HOME HH - PER PHYSICIAN REQUEST 87.50
--- OUTSIDE RECORDS SUMMARY | 2024-10-12 20:00 | XMS_ITS | Clinical Summary ---
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 OF ANTICOAGULAN TS Active 09-25 00:00: 00 LNG TRM (CRNT) USE INJECTABLE NON-INSULIN ANTIDIABETIC DRUGS Active 09-25 00:00: 00 PERSONAL HISTORY OF (HEALED) TRAUMATIC FRACTURE Active 09-25 00:00: 00 PERSONAL HISTORY OF URINARY (TRACT) INFECTIONS Active 09-25 00:00: 00 CORRECTION (CURRENT) USE OF ORAL HYPOGLYCEMIC DRUGS Active [...] 1- 00:00: 00 03-02 00:00 :00 No [id number] Unavailable Per instruc tions Per instructio ns (route: oral) Med Classific ation: Genitouri nary Therapy duloxetine 60 mg capsule,del ayed release 2021-02 00:00: 00 03-02 00:00 :00 No [id number] Per instruc tions Per instructio ns (route: oral) Med Classific ation: Central Nervous System Agents Eliquis 5 mg tablet 2021-02 00:00: 00 02-06 23:59 :00 No [id number] AFIB 1 tablet DAILY 1 tablet DAILY (route: oral) Med Classific ation: Hematolog ical Agents furosemide 20 mg tablet 2021-02 2 00:00: 00 02-06 23:59 :00 No [id number] BLOOD THINNER 1 tablet 2 TIMES DAILY 1 tablet 2 TIMES DAILY (route: oral) Med Classific ation: Cardiovas cular Therapy Agents Januvia 100 mg tablet 2021-02 2 00:00: 00 02-06 23:59 :00 No [id number] DIABETES 1 tablet DAILY 1 tablet DAILY (route: oral) Med Classific ation: Endocrine losartan 50 mg tablet 2021-02 2 00:00: 00 03-02 00:00 :00 No [id number] Per instruc tions Per instructio ns (route: oral) Med Classific ation: Cardiovas cular Therapy Agents metformin ER 500 mg tablet,exte nded release 24 hr 2021-02 00:00: 00 02-06 23:59 :00 No [id number] DIABETES 1 tablet 2 TIMES DAILY 1 tablet 2 TIMES DAILY (route: oral) Med Classific ation: Endocrine metoprolol succinate ER 50 mg tablet,exte nded release 24 hr 2021-02 00:00: 00 02-06 23:59 :00 No [id number] ANGINA 1 tablet DAILY 1 tablet DAILY (route: oral) Med Classific ation: Cardiovas cular Therapy Agents nortriptyli ne 25 mg capsule 2021-02 00:00: 00 02-06 23:59 :00 No [id number] DEPRESSION 1 capsule DAILY 1 capsule DAILY (route: oral) Med Classific ation: Central Nervous System Agents simvastatin 20 mg tablet 2021-02 00:00: 00 02-06 23:59 :00 No [id number] CHOLESTEROL 1 tablet BEDTIME 1 tablet BEDTIME (route: oral) Med Classific ation: Cardiovas cular Therapy Agents hydrochloro thiazide 50 mg tablet 2021-02 00:00: 00 03-02 00:00 :00 No [id number] Unavailable Per instruc tions Per instructio ns (route: oral) Med Classific ation: Cardiovas cular Therapy Agents Acetaminoph en Extra Strength 500 mg tablet 03-02 00:00: 00 02-06 23:59 :00 No [id number] PAIN 2 tablet EVERY 6 HOURS 2 tablet EVERY 6 HOURS (route: oral) Med Classific ation: Analgesic , Anti-infl ammatory or Antipyret ic losartan 50 mg tablet 03-02 00:00: 00 02-06 23:59 :00 No [id number] HYPERTENSIO N 1 tablet DAILY 1 tablet DAILY (route: oral) Med Classific ation: Cardiovas cular Therapy Agents Mounjaro 5 mg/0.5 mL subcutaneou s pen injector 09-19 00:00: 00 Yes [id number] DIABETES 5 mg WEEKLY 5 mg WEEKLY (route: subcutaneo us) Med Classific ation: Endocrine atorvastati n 40 mg tablet 09-17 00:00: 00 Yes [id number] CHOLESTEROL 40 mg DAILY 40 mg DAILY (route: oral) Med Classific ation: Cardiovas cular Therapy Agents bumetanide 1 mg tablet 09-17 00:00: 00 Yes [id number] DIURETIC 2 mg 2 TIMES DAILY 2 mg 2 TIMES DAILY (route: oral) Med Classific ation: Cardiovas cular Therapy Agents duloxetine 60 mg capsule,del ayed release 09-17 00:00: 00 09-25 00:00 :00 No [id number] Per instruc tions Per instructio ns (route: oral) Med Classific ation: Central Nervous System Agents Eliquis 5 mg tablet 09-17 00:00: 00 Yes [id number] BLOOD THINNER 5 mg 2 TIMES DAILY 5 mg 2 TIMES DAILY (route: oral) Med Classific ation: Hematolog ical Agents Entresto 24 mg-26 mg tablet 09-17 00:00: 00 Yes [id number] CHF 1 tablet DAILY 1 tablet DAILY (route: oral) Med Classific ation: Cardiovas cular Therapy Agents famotidine 20 mg tablet 09-17 00:00: 00 Yes [id number] GERD 20 mg DAILY 20 mg DAILY (route: oral) Med Classific ation: Gastroint estinal Therapy Agents Farxiga 10 mg tablet 09-17 00:00: 00 Yes [id number] DIABETES 10 mg DAILY 10 mg DAILY (route: oral) Med Classific ation: Endocrine metoprolol succinate ER 25 mg tablet,exte nded release 24 hr 09-17 00:00: 00 Yes [id number] HTN 25 mg DAILY 25 mg DAILY (route: oral) Med Classific ation: Cardiovas cular Therapy Agents nortriptyli ne 25 mg capsule 09-17 00:00: 00 Yes [id number] PAIN 25 mg DAILY 25 mg DAILY (route: oral) Med Classific ation: Central Nervous System Agents spironolact one 25 mg tablet 09-17 00:00: 00 Yes [id number] DIURETIC 25 mg DAILY 25 mg DAILY (route: oral) Med Classific ation: Cardiovas cular Therapy Agents cefadroxil 500 mg capsule 09-04 00:00: 00 Yes [id number] CHF 500 mg TWICE DAILY FOR 7 DAYS 500 mg TWICE DAILY FOR 7 DAYS (route: oral) Med Classific ation: Anti-Infe ctive Agents zolpidem 5 mg tablet 09-04 00:00: 00 Yes [id number] SLEEP 5 mg AT BEDTIME NIGHTLY NEEDED 5 mg AT BEDTIME NIGHTLY NEEDED (route: oral) Med Classific ation: Central Nervous System Agents famotidine 20 mg tablet 08-21 00:00: 00 09-25 00:00 :00 No [id number] Per instruc tions Per instructio ns (route: oral) Med Classific ation: Gastroint estinal Therapy Agents dextrometho rphan-guaif enesin 5 mg-100 mg/5 mL oral liquid 09-25 00:00: 00 Yes [id number] PRN COUGH 5 mL EVERY 6 HOURS [...] CONSULTING PHYSICIANS RN TO OBSERVE AND ASSESS, GAS ROLLER OPERATOR/VENDOR REPRESENTATIVES TO OBSERVE FOR RISK FOR FALLS AND INSTRUCT IN FALL PREVENTION, HOME SAFETY, MEDICATION MANAGEMENT, INFECTION PREVENTION, AND NUTRITION MANAGEMENT. RN/GAS ROLLER OPERATOR/VENDOR REPRESENTATIVES NURSE MAY PERFORM O2 SATURATION LEVEL ON ADMISSION AND PRN FOR RN TO ASSESS/GAS ROLLER OPERATOR TO OBSERVE PATIENT, WITH NOTIFICATION TO THE PHYSICIAN IF SATURATION IS 90% IN THE ABSENCE OF MORE SPECIFIC PARAMETERS FROM THE PHYSICIAN. AGENCY MAY PERFORM A RESUMPTION OF CARE VISIT FOLLOWING ANY HOSPITAL ADMISSION. RN/GAS ROLLER OPERATOR/VENDOR REPRESENTATIVES TO MONITOR CO-MORBID CONDITIONS LISTED ON THE PLAN OF CARE AND ANY NEW CONDITIONS THAT PRESENT THEMSELVES DURING THIS EPISODE TO IDENTIFY CHANGES AND INTERVENE TO MINIMIZE COMPLICATIONS. [code = RN TO OBSERVE, ASSESS, EVALUATE, AND DEVELOP AN INDIVIDUALIZED PLAN OF CARE. AGENCY MAY ACCEPT ORDERS FROM CONSULTING PHYSICIANS RN TO OBSERVE AND ASSESS, GAS ROLLER OPERATOR/VENDOR REPRESENTATIVES TO OBSERVE FOR RISK FOR FALLS AND INSTRUCT IN FALL PREVENTION, HOME SAFETY, MEDICATION MANAGEMENT, INFECTION PREVENTION, AND NUTRITION MANAGEMENT. RN/GAS ROLLER OPERATOR/VENDOR REPRESENTATIVES NURSE MAY PERFORM O2 SATURATION LEVEL ON ADMISSION AND PRN FOR RN TO ASSESS/GAS ROLLER OPERATOR TO OBSERVE PATIENT, WITH NOTIFICATION TO THE PHYSICIAN IF SATURATION IS 90% IN THE ABSENCE OF MORE SPECIFIC PARAMETERS FROM THE PHYSICIAN. AGENCY MAY PERFORM A RESUMPTION OF CARE VISIT FOLLOWING ANY HOSPITAL ADMISSION. RN/GAS ROLLER OPERATOR/VENDOR REPRESENTATIVES TO MONITOR CO-MORBID CONDITIONS LISTED ON THE PLAN OF CARE AND ANY NEW CONDITIONS THAT PRESENT THEMSELVES DURING THIS EPISODE TO IDENTIFY CHANGES AND INTERVENE TO MINIMIZE COMPLICATIONS.] Future Scheduled Test RISK FOR H OSPITALIZATION; RN TO ASSESS/TEACH, VENDOR REPRESENTATIVES/GAS ROLLER OPERATOR TO OBSERVE/TEACH PATIENT/CAREGIVER ON RISK FOR HOSPITALIZATION/EMERGENCY ROOM VISITS, TEACH SIGNS AND SYMPTOMS THAT PUT PATIENT AT RISK, WHEN TO NOTIFY NURSE/PHYSICIAN OF COMPLICATIONS/DECLINE, AND WHEN TO CALL 911. [code = RISK FOR HOSPITALIZATION; RN TO ASSESS/TEACH, VENDOR REPRESENTATIVES/GAS ROLLER OPERATOR TO OBSERVE/TEACH PATIENT/CAREGIVER ON RISK FOR HOSPITALIZATION/EMERGENCY ROOM VISITS, TEACH SIGNS AND SYMPTOMS THAT PUT PATIENT AT RISK, WHEN TO NOTIFY NURSE/PHYSICIAN OF COMPLICATIONS/DECLINE, AND WHEN TO CALL 911.] Future Scheduled Test CARDIOVASC ULAR SYSTEM; RN TO ASSESS/TEACH, GAS ROLLER OPERATOR/VENDOR REPRESENTATIVES TO OBSERVE/TEACH RELATED TO ALTERED CARDIOVASCULAR STATUS TO MINIMIZE COMPLICATIONS AND REDUCE HOSPITALIZATION. [code = CARDIOVASCULAR SYSTEM; RN TO ASSESS/TEACH, GAS ROLLER OPERATOR/VENDOR REPRESENTATIVES TO OBSERVE/TEACH RELATED TO ALTERED CARDIOVASCULAR STATUS TO MINIMIZE COMPLICATIONS AND REDUCE HOSPITALIZATION.] Future Scheduled Test HEART FAIL URE; RN TO ASSESS/TEACH, GAS ROLLER OPERATOR/VENDOR REPRESENTATIVES TO OBSERVE/TEACH CARDIOPULMONARY SYSTEM TO IDENTIFY SIGNS [...] [code = HEART FAILURE; RN TO ASSESS/TEACH, GAS ROLLER OPERATOR/VENDOR REPRESENTATIVES TO OBSERVE/TEACH CARDIOPULMONARY SYSTEM TO IDENTIFY SIGNS [...] End Date/Time Encounter Type Admission Type Attending [facility] Care Department Encounter ID Discharge Date Discharge Status Discharge Condition Discharge Reason Percent Goals Met 2024-09-25 00:00:00 2024-10-13 00:00:00 Outpatient HERNAN JOHNS [facility] [id number] 2024-10-13 00:00:00 DISCHARGE TO HOME OR SELF CARE INDEPENDEN T IN THE HOME HH - PER PHYSICIAN REQUEST 87.50
--- OUTSIDE RECORDS SUMMARY | 2024-11-18 15:25 | XMS_ITS | Encounter Summary ---
Author Organization [facility] Address [address] [place] [address] Care Team Providers Care Hydrographic Engineer Name Role Phone System, Provider Not In Primary Care Provider Un available Reason for Visit * Reason Onset Date Comments Side Effects 10/15/2024 Encounter Details Date Type Department Care Team (Late st Contact Info) Description 10/15/2024 Telephone [facility] [address] [place] [address] Shikha Clayton MA Side Effects Social History [...] is any concern with these symptoms. Pharmacy: [facility] in [place]. documented in this encounter Plan of Treatment Upcoming Encounters Date Type Department Care Team (Late st Contact Info) Description 01/13/2025 2:20 PM EST Telemedicine [facility] [address] [address] Aubrey Chang MD [address] [place] [phone] 04/14/2025 2:20 PM EST Office Visit [facility] [address] [address] Aubrey Chang MD [address] [address] documented as of this encounter Visit Diagnoses Diagnosis Pulmonary hypertension, not otherwise specified- Primary documented in this encounter Care Teams Hydrographic Engineer Relationship Specialty Start Date End Date System, Provider Not In PCP - General 10/06/24 documented as of this encounter
--- OUTSIDE RECORDS SUMMARY | 2024-11-18 15:25 | XMS_ITS | Encounter Summary ---
Author Organization [facility] Address [address] [place] [address] Care Team Providers Care Space And Missile Operations Name Role Phone System, Provider Not In Primary Care Provider Un available Reason for Visit * Reason Onset Date Comments Tadalafil Approval. 10/08/2024 Encounter Details Date Type Department Care Team (Late Contact Info) Description 10/08/2024 Telephone [facility] [address] [address] Shikha Clayton MA Tadalafil Approval. Social History [...] Patients Tadalafil has been approved. Auth #: [id number] documented in this encounter Plan of Treatment Upcoming Encounters Date Type Department Care Team (Late Contact Info) Description 01/13/2025 2:20 PM EST Telemedicine [facility] [address] [address] Aubrey Chang MD 401 [facility] [address] [place] [address] 04/14/2025 2:20 PM EST Office Visit [facility] [address] [facility] [address] [place] [address] Aubrey Chang MD [address] [address] documented as of this encounter Visit Diagnoses Not on filedocumented in this encounter Care Teams Space And Missile Operations Relationship Specialty Start Date End Date System, Provider Not In PCP - General 10/06/24 documented as of this encounter
--- OUTSIDE RECORDS SUMMARY | 2024-11-18 15:25 | XMS_ITS | Encounter Summary ---
Author Organization [facility] Address [address] [facility] [address] [place] [address] Care Team Providers Care Ambulance Operations Supervisor Name Role Phone System, Provider Not [...] EST Telemedicine [facility] [address] [address] Aubrey Chang MD [address] [place] [phone] 04/14/2025 2:20 PM EST Office Visit [facility] [address] [address] Aubrey Chang MD [address] [address] documented as of this encounter Visit Diagnoses Not on filedocumented in this encounter Care Teams Ambulance Operations Supervisor Relationship Specialty Start Date End Date System, Provider Not In PCP - General 10/06/24 documented as of this encounter
--- OUTSIDE RECORDS SUMMARY | 2024-11-18 15:25 | XMS_ITS | Encounter Summary ---
Author Organization Healthcare Address [address] [place] [address] Care Team Providers Care Risk Modeler Name Role Phone Jan Castealn MD Primary Care Provider [phone] Benjie Quezada MD Primary Care Provider Tamika Loomis APRN Primary Care Provider [phone] Maegan Bermeo MD Primary Care Provider [phone] Audra Wahl PRICE ECONOMIST Unavailable Unavailab Jessa Jimenez PRICE ECONOMIST Unavailable Unavailable Reason for Visit * Reason Comments Med Refill Encounter Details Date Type Department Care Team (Late st Contact Info) Description 07/27/2020 Refill [facility] [address] [place] [address] Jan Castelan MD [address] [place] [address] Social History Tobacco Use Types [...] and sent to appropriate Health Dept. IPAC Dispatcher Refinery: Brandiedon Demi 10/26/2021 10/26/2021 022 10:27 AM EDT COVID 19 (Confirmed) 11/11/2021 11/11/2021 022 5:23 AM EDT COVID-19 Rule-Out 05/16/2022 05/16/2022 05/16/2022 11:05 PM EDT documented as of this encounter Care Teams Risk Modeler Relationship Specialty Start Date End Date Jan Castelan MD [address] [place] [phone] PCP - General 07/02/20 08/07/21 Benjie Quezada MD [address] [place] [address] PCP - General Family Medicine 08/08/21 08/30/21 Tamika Loomis APRN [address] [place] [address] PCP - General Family Medicine 08/31/21 09/14/21 Maegan Bermeo MD [address] [place] [address] PCP - General Family Medicine 09/15/21 Audra Wahl LPN [employer] [place] [address] TCM Nurse 09/27/21 10/27/21 Jessa Park LPN VAL[employer] [place] [address] Registered Nurse 05/26/22 05/26/22 documented as of this encounter
--- OUTSIDE RECORDS SUMMARY | 2024-11-18 15:25 | XMS_ITS | Encounter Summary ---
Author Organization [facility] Address [address] [place] [address] Care Team Providers Care Ball Machine Operator Name Role Phone System, Provider Not In Primary Care Provider Un available Reason for Visit * Reason Onset Date Comments Opsumit Approval 10/13/2024 Encounter Details Date Type Department Care Team (Late st Contact Info) Description 10/13/2024 Telephone [facility] [address] [place] [address] Shikha Clayton MA Opsumit Approval Social History [...] with me as her insurance will not [id number] parties information. I have faxed them a copy of her approval. documented in this encounter Plan of Treatment Upcoming Encounters Date Type Department Care Team (Late st Contact Info) Description 01/13/2025 2:20 PM EST Telemedicine [facility] [address] [place] [address] Aubrey Chang MD [address] [address] 04/14/2025 2:20 PM EST Office Visit [facility] [address] [address] Aubrey Chang MD [address] [address] documented as of this encounter Visit Diagnoses Not on filedocumented in this encounter Care Teams Ball Machine Operator Relationship Specialty Start Date End Date System, Provider Not In PCP - General 10/06/24 documented as of this encounter
--- OUTSIDE RECORDS SUMMARY | 2024-11-18 15:25 | XMS_ITS | Encounter Summary ---
Author Organization [facility] Address [address] [place] [address] Care Team Providers Care Propulsion Systems Engineer Name Role Phone System, Provider Not In Primary Care Provider Un available Reason for Visit * Reason Onset Date Comments Opsumit RX 10/08/2024 Encounter Details Date Type Department Care Team (Late Contact Info) Description 10/08/2024 Telephone [facility] [address] [facility] [address] [place] [address] Shikha Clayton MA Opsumit RX Social History [...] me. It has been approved. Auth #: [id number] and is valid until further notice . documented in this encounter Plan of Treatment Upcoming Encounters Date Type Department Care Team ([facility] [address] [facility] Contact Info) Description 01/13/2025 2:20 PM EST Telemedicine [facility] [address] [address] Aubrey Chang MD [address] [phone] 04/14/2025 2:20 PM EST Office Visit [facility] [address] [address] Aubrey Chagn MD [address] [phone] documented as of this encounter Visit Diagnoses Not on filedocumented in this encounter Care Teams Propulsion Systems Engineer Relationship Specialty Start Date End Date System, Provider Not In PCP - General 10/06/24 documented as of this encounter
--- OUTSIDE RECORDS SUMMARY | 2024-11-18 15:26 | XMS_ITS | Encounter Summary ---
Author Organization Healthcare Address [address] [place] [address] Care Team Providers Care Radio Interference Supervisor Name Role Phone Maegan Bermeo MD Primary Care Provider [phone] Encounter Details Date Type Department Care Team (Late st Contact Info) Description 07/08/2024 Orders Only External Location [address] [place] [phone] Provider, External Social History Tobacco Use Types [...] drink first t ken in the morning (EYE-LUMBER ESTIMATOR) to steady your nerves or to get [...] documented as of this encounter Care Teams Radio Interference Supervisor Relationship Specialty Start Date End Date Maegan Bermeo MD [address] [place] [address] PCP - General Family Medicine 09/15/21 documented as of this encounter
--- OUTSIDE RECORDS SUMMARY | 2024-11-18 15:26 | XMS_ITS | Encounter Summary ---
Author Organization [facility] Address [address] [facility] [address] [place] [address] Care Team Providers Care Edge Trimming Machine Operator Name Role Phone System, Provider Not In Primary Care Provider Un available Reason for Visit * Reason Onset Date Comments Appointment 11/11/2024 Encounter Details Date Type Department Care Team (Late st Contact Info) Description 11/11/2024 Telephone [facility] [address] [facility] [address] [place] [address] Cheko Garza MD 300 [facility] [place] [phone] Appointment Social History Tobacco Use Types Packs/Day [...] Telemedicine [facility] [address] [facility] 6[address] [place] [address] Aubrey Chang MD 401 [facility] [address] [place] [address] 04/14/2025 2:20 PM EST Office Visit [facility] 401 [address] [facility] 6[address] [place] [address] Aubrey Chang MD [address] [address] documented as of this encounter Visit Diagnoses Not on filedocumented in this encounter Care Teams Edge Trimming Machine Operator Relationship Specialty Start Date End Date System, Provider Not In PCP - General 10/06/24 documented as of this encounter
--- OUTSIDE RECORDS SUMMARY | 2024-11-18 15:26 | XMS_ITS | Encounter Summary ---
Author Organization [facility] Address [address] [place] [address] Care Team Providers Care Business Analyst Intern Name Role Phone Cassia Blanco Dr Primary Care Provider Unavailabl e Reason for Visit * Reason Onset Date Comments Hospital f/u Appt Request 09/22/2024 Encounter Details Date Type Department Care Team (Late st Contact Info) Description 09/22/2024 Telephone [facility] [address] [place], [place] [id number] Olga Lidia Dahl, CSW Hospital f/u Appt Request Social History Tobacco [...] Dr. Barnett Referring Provider: Dr. Sutton @ [facility] Office Phone: Office Fax: Diagnosis: Severe Pre-Capillary PH How was disease diagnosed? Patient presented to [facility] with shortness of air and volume overload. Reported at that time to have periodic shortness of air for several years with the last 1 year having worsened. She reported being severely limited in activity due to her symptoms. [facility] as [facility]. During this stay, patient underwent [...] EST Telemedicine [facility] [address] [address] Aubrey Chang MD [address] [address] 04/14/2025 2:20 PM EST Office Visit [facility] [address] [address] Aubrey Chang MD [address] [place] [address] documented as of this encounter Visit Diagnoses Not on filedocumented in this encounter Care Teams Business Analyst Intern Relationship Specialty Start Date End Date Cassia Blanco Dr. PCP - General 09/08/24 10/05/24 documented as of this encounter
--- OUTSIDE RECORDS SUMMARY | 2024-11-18 15:26 | XMS_ITS | Encounter Summary ---
Author Organization Healthcare Address [address] [place] [address] Care Team Providers Care Institution Librarian Name Role Phone Tyler Castelan MD Primary Care Provider [phone] Benjie Quezada MD Primary Care Provider Tamika Loomis APRN Primary Care Provider [phone] Maegan Bermeo MD Primary Care Provider [phone] Audra Wahl IMAGING NURSE Unavailable Unavailab Jessa Jimenez IMAGING NURSE Unavailable Unavailable Encounter Details Date Type Department Care Team (Late st Contact Info) Description 06/28/2021 Outside Procedure External Location [address] [place] [phone] Tyler Castelan MD [address] [place] [address] Social History Tobacco Use Types [...] PM EDT Narrative 06/28/2021 4:35 [place] [address] Name: RICA FLANNERY Exam Date: 06/28/2021 : 1955 Age 65 Gender: F Physician: TYLER CASTELAN Facility: [facility] Facility HSV: Outpatient Exam: VENOUS DUPLEX [...] Thank you for referring RICA FLANNERY to [facility]. Legally authenticated by KWAME HARGROVE 2021-06-28 16:23:11 Procedure Note Provider, [facility] - 06/28/2021 [facility] [address] [place] [address] Name: RICA FLANNERY Exam Date: 06/28/2021 : 1955 Age 65 Gender: F Physician: TYLER CASTELAN Facility: [facility] Facility HSV: Outpatient Exam: VENOUS DUPLEX [...] Thank you for referring RICA FLANNERY to [facility]. Legally authenticated by KWAME HARGROVE 2021-06-28 [...] and sent to appropriate Health Dept. IPAC Senior Brand Manager: Nimco Simms 10/26/2021 10/26/2021 022 10:27 AM EDT COVID 19 (Confirmed) 11/11/2021 11/11/2021 022 5:23 AM EDT COVID-19 Rule-Out 05/16/2022 05/16/2022 05/16/2022 11:05 PM EDT Assessment Noted Time A fall risk assessment has been complete d for the patient 06/28/2021 10:46 AM EDT documented as of this encounter Care Teams Institution Librarian Relationship Specialty Start Date End Date Tyler Castelan MD [address] [place] [address] PCP - General 07/02/20 08/07/21 Benjie Quezada MD [address] [facility] [address] [place] [address] PCP - General Family Medicine 08/08/21 08/30/21 Tamika Loomis, MANAGER SALT [address] [place] [phone] PCP - General Family Medicine 08/31/21 09/14/21 Maegan Bermeo MD [address] [place] [address] PCP - General Family Medicine 09/15/21 Audra Wahl LPN [employer] [address] TCM Nurse 09/27/21 10/27/21 Jessa Park LPN [employer] [address] Registered Nurse 05/26/22 05/26/22 documented as of this encounter
--- OUTSIDE RECORDS SUMMARY | 2024-11-18 15:26 | XMS_ITS | Encounter Summary ---
Author Organization Healthcare Address [address] [place] [address] Care Team Providers Care Maintenance Inspector Name Role Phone Maegan Bermeo MD Primary Care Provider [phone] Encounter Details Date Type Department Care Team (Late st Contact Info) Description 03/11/2024 Orders Only External Location [address] [place] [phone] Provider, External Social History Tobacco Use Types [...] drink first t ken in the morning (EYE-MEDICAL SOCIAL CONSULTANT) to steady your nerves or to [...] documented as of this encounter Care Teams Maintenance Inspector Relationship Specialty Start Date End Date Maegan Bermeo MD [address] [place] [address] PCP - General Family Medicine 09/15/21 documented as of this encounter
--- OUTSIDE RECORDS SUMMARY | 2024-11-18 15:26 | XMS_ITS | Encounter Summary ---
Author Organization [facility] Address [address] [place] [address] Care Team Providers Care Puppy Walker Name Role Phone Maegan Bermeo MD Primary Care Provider [phone] Audra Wahl SINGING TEACHER Unavailable Unavailab Jessa Jimenez SINGING TEACHER Unavailable Unavailable Reason for Visit * Reason Comments Med Refill Encounter Details Date Type Department Care Team (Late st Contact Info) Description 10/11/2021 Refill Family and Community Medicine [address] [place] [address] Maegan Bermeo MD [address] [place] [address] Avitaminosis D Social History Tobacco [...] immunocompromised. Team aware. EVS notified. [facility] has verified patient has a COVID-19 positive result. A chart review has been completed, EPI PUI has been completed and sent to appropriate Health Dept. IPA Supervisor Beehive Kiln: Nimco Simms 10/26/2021 10/26/2021 022 10:27 AM EDT COVID 19 (Confirmed) 11/11/2021 11/11/2021 022 5:23 AM EDT COVID-19 Rule-Out 05/16/2022 05/16/2022 05/16/2022 11:05 PM EDT Assessment Noted Time A fall risk assessment has been complete d for the patient 10/11/2021 11:31 AM EDT documented as of this encounter Care Teams Puppy Walker Relationship Specialty Start Date End Date Maegan Bermeo MD [facility] [place] [address] PCP - General Family Medicine 09/15/21 Audra Wahl LPN VALUE[employer]ED [place] [address] TCM Nurse 09/27/21 10/27/21 Jessa Park LPN VAL[employer] [place] [address] Registered Nurse 05/26/22 05/26/22 documented as of this encounter
--- OUTSIDE RECORDS SUMMARY | 2024-11-18 15:26 | XMS_ITS | Encounter Summary ---
Author Organization Healthcare Address [address] [place] [address] Care Team Providers Care Marine Driller Name Role Phone Maegan Bermeo MD Primary Care Provider Encounter Details Date Type Department Care Team (Late st Contact Info) Description 07/03/2024 Orders Only External Location [address] [place] [phone] Provider, External Social History Tobacco Use Types [...] drink first t ken in the morning (EYE-UNDERWEAR HEMMER) to steady your nerves or to get [...] documented as of this encounter Care Teams Marine Driller Relationship Specialty Start Date End Date Maegan Bermeo MD [address] [place] [address] PCP - General Family Medicine 09/15/21 documented as of this encounter
--- OUTSIDE RECORDS SUMMARY | 2024-11-18 15:26 | XMS_ITS | Encounter Summary ---
Author Organization [facility] Address [address] [facility] [address] [place] [address] Care Team Providers Care Processing Manager Name Role Phone Cassia Blanco Dr Primary Care Provider Unavailabl e Reason for Visit * Reason Onset Date Comments Appointment 09/30/2024 Encounter Details Date Type Department Care Team ([facility] Contact Info) Description 09/30/2024 Telephone [facility] [address] [facility] [address] [place] [address] Cheko Garza MD 300 [facility] [place] [address] Appointment Social History Tobacco Use Types Packs/Day [...] left voice mail to return call to [phone]. documented in this encounter Plan of Treatment Upcoming Encounters Date Type Department Care Team (Late Contact Info) Description 01/13/2025 2:20 PM EST Telemedicine [facility] [address] [facility] 6[address] [place] [address] Aubrey Chang MD [address] [address] 04/14/2025 2:20 PM EST Office Visit [facility] [address] [address] Aubrey Chang MD [address] [address] documented as of this encounter Visit Diagnoses Not on filedocumented in this encounter Care Teams Processing Manager Relationship Specialty Start Date End Date Cassia Balnco Dr. PCP - General 09/08/24 10/05/24 documented as of this encounter
--- OUTSIDE RECORDS SUMMARY | 2024-11-18 15:26 | XMS_ITS | Clinical Summary ---
Author Organization [facility] Address [address] [place] [address] Care Team Providers Care Barn And Property Manager Name Role Phone Tricia Pérez MD Primary Care Provider [phone] Allergies Active Allergy Reactions Criticality Noted Date [...] season) 2024 Insurance MEDICARE A & B [facility] Care Teams Barn And Property Manager Relationship Specialty Start Date End Date Tricia Pérez MD [address] [place] [address] PCP - General Family Medicine 07/20/18
--- OUTSIDE RECORDS SUMMARY | 2024-11-18 15:26 | XMS_ITS | Clinical Summary ---
Author Organization [facility] Address [address] [place] [address] Care Team Providers Care Recreation Facility Manager Name Role Phone Maegan Bermeo MD Primary Care Provider [phone] Allergies Active Allergy Reactions Criticality Noted Date [...] is elevated above patient's baseline of around [id number] -most recent echo obtained in October 2021 [...] but pain at time of arrival to [facility] PLAN: -pain control initially with p.r.n. [...] Description 09/15/2024 10:40 AM EDT Office Visit [facility] [address] [place] [address] Raimundo Hatch DPM Ulcer of toe of left foot, with fat layer exposed (CMS/HCC) (Primary Dx); Diabetic neuropathy with neurologic complication (CMS/HCC); Corns and callosities; Nail dystrophy 09/15/2024 Travel 08/18/2024 9:20 AM EDT Office Visit [facility] [address] [place] [address] Raimundo Hatch DPM Hammer toe, acquired (Primary [...] drink first t ken in the morning (EYE-MANAGER PERFORMANCE IMPROVEMENT) to steady your nerves or to get [...] Additional history exists [facility]-Depression Screening 06/08/2023 06/07/2022 [id number] Vaccine ( season) 2024 01/05/2022, 01/07/2021, 06/11/2020, [...] AM EST 03/01/2022 8:45 AM EST Narrative [facility] - 03/01/2022 1:22 PM EST HA1C Interpretive Data: Diagnosis of Diabetes: Diabetic > or = 6.5% Pre-diabetic 5.7 to 6.4% Non-diabetic < or = 5.6% Glycemic Targets for Type I and Type II Diabetics: Non- Adults <7.0% Adults <6.0% Children and Adolescents <7.5% Source: [place] [employer]. Standards of medical care in diabetes,2017. Diabetes Care.2017:40 (suppl 1):S1-S135. HbA1c assay performed by an ion-exchange chromatography method that is certified traceable to the DCCT. us Maegan Bermeo MD LAB BLOOD ORDERABLES Final Re sult [facility] [address] [place] [address] * Hepatitis C Antibody - ED (09/24/2021 7:52 AM EDT) Hepatitis C Antibody Negative Negative 09/24/2021 9:51 AM EDT [facility] Blood Venous blood specimen / Unknown Venipuncture / Unknown 09/24/2021 7:52 AM EDT 09/24/2021 8:10 AM EDT us Farida Sharif MD LAB BLOOD ORDERABLES Final Res ult [facility] [address] [place] [address] * MAMMOGRAPHY EXTERNAL RESULTS (01/20/2019) Anatomical Region [...] to Health Maintenance Insurance MEDICARE [facility] Advance Directives * DNR/DNI (Latest Code Status [...] Patient has decision-making capacity? Yes Care Teams Recreation Facility Manager Relationship Specialty Start Date End Date Maegan Bermeo MD [address] [address] PCP - General Family Medicine 09/15/21
--- OUTSIDE RECORDS SUMMARY | 2024-11-18 15:26 | XMS_ITS | Encounter Summary ---
Author Organization [facility] Address [address] [place] [address] Care Team Providers Care Brusher Operator Name Role Phone Jan Castelan MD Primary Care Provider [phone] Benjie Quezada MD Primary Care Provider Tamika Loomis APRN Primary Care Provider [phone] Maegan Bermeo MD Primary Care Provider [phone] Audra Wahl WEB SYSTEMS DEVELOPER Unavailable Unavailab Jessa Jimenez WEB SYSTEMS DEVELOPER Unavailable Unavailable Reason for Visit * Reason Comments Med Refill Encounter Details Date Type Department Care Team (Late st Contact Info) Description 02/22/2021 Refill Family and Community Medicine [address] [place] [address] Jan Castelan MD [address] [place] [address] Uncontrolled type 2 diabetes mellitus with hyperglycemia ([facility]) Social History Tobacco Use Types Packs/Day Years [...] and sent to appropriate Health Dept. IPAC Deportation Examiner: Brandiedon Demi 10/26/2021 10/26/2021 022 10:27 AM EDT COVID 19 (Confirmed) 11/11/2021 11/11/2021 022 5:23 AM EDT COVID-19 Rule-Out 05/16/2022 05/16/2022 05/16/2022 11:05 PM EDT documented as of this encounter Care Teams Brusher Operator Relationship Specialty Start Date End Date Jan Castelan MD [address] [place] [address] PCP - General 07/02/20 08/07/21 [place] [address] [place] [address] [address] [place] [address] PCP - General Family Medicine 08/08/21 08/30/21 Tamika Loomis APRN [address] [place] [address] PCP - General Family Medicine 08/31/21 09/14/21 Maegan Bermeo MD [address] [place] [address] PCP - General Family Medicine 09/15/21 Audra Wahl LPN [employer] [place] [address] TCM Nurse 09/27/21 10/27/21 Jessa Park LPN [employer] [place] [address] Registered Nurse 05/26/22 05/26/22 documented as of this encounter
--- OUTSIDE RECORDS SUMMARY | 2024-11-18 15:26 | XMS_ITS | Encounter Summary ---
Author Organization [facility] Address [address] [place] [address] Care Team Providers Care Accounts Payable Professional Name Role Phone Cassia Blanco Dr Primary Care Provider Unavailabl e Reason for Visit * Reason Onset Date Comments Appointment 09/30/2024 Forms/questionnaires 09/30/2024 Night tech questions Encounter Details Date Type Department Care Team (Late st Contact Info) Description 09/30/2024 Telephone [facility] [address] [facility] [address] [place] [address] Cheko Garza MD [address] [facility] [place] [address] Appointment; Forms/questionnaires (Night tech questions) Social History [...] sure one finger is free of nail estonian, acrylic, gel etc. For finger sensor at time of study. documented in this encounter Plan of Treatment Upcoming Encounters Date Type Department Care Team (Late st Contact Info) Description 01/13/2025 2:20 PM EST Telemedicine [facility] - Pulmonology [address] [address] Aubrey Chang MD [address] [place] [address] 04/14/2025 2:20 PM EST Office Visit [facility] Pulmonology [address] [place] [address] Aubrey Chang MD [address] [place] [address] documented as of this encounter Visit Diagnoses Not on filedocumented in this encounter Care Teams Accounts Payable Professional Relationship Specialty Start Date End Date Cassia Blanco Dr. PCP - General 09/08/24 10/05/24 documented as of this encounter
--- OUTSIDE RECORDS SUMMARY | 2024-11-18 15:26 | XMS_ITS | Encounter Summary ---
Author Organization [facility] Address [address] [facility] [address] [place] [address] Care Team Providers Care Kids Activities Coach Name Role Phone Cassia Blanco Dr Primary Care Provider Unavailabl e Reason for Referral * Consultation (Routine) - Closed Specialty Diagnoses / Procedures Referred By Contac t Referred To Contact Pulmonology Diagnoses Pulmonary hypertension Procedures Six Minute Walk Test Aubrey Chang MD [address] [facility] [place] [address] Phone: tel: fax: [facility] Pul[facility] [address] [address] Phone: tel: fax: Referral ID Status Reason Start Date Expiration Date V isits Requested Visits Authorized [id number] Closed Specialty Services Required 09/22/2024 10/22/2025 1 1 * Consultation (Routine) - Closed Specialty Diagnoses / Procedures Referred By Contac t Referred To Contact Pulmonology Diagnoses Pulmonary hypertension Procedures Pulmonary function test Aubrey Chang MD [address] [facility] [place] [address] Phone: tel: fax: [facility] [address] [address] Phone: tel: fax: Referral ID Status Reason Start Date Expiration Date V isits Requested Visits Authorized [id number] Closed Specialty Services Required 09/22/2024 10/22/2025 1 1 Encounter Details Date Type Department Care Team (Late st Contact Info) Description 09/22/2024 Orders Only [facility] - Pulmonology [address] [address] Dov Lopez, GETTERING FILAMENT MACHINE OPERATOR Pulmonary hypertension (Primary Dx) Social [...] Telemedicine [facility] Pulmonology [address] [address] Aubrey Chang MD [address] [facility] [address] [address] 04/14/2025 2:20 PM EST Office Visit [facility] [address] [address] Aubrey Chang MD [address] [facility] [address] [address] documented as of this encounter Results * [...] Primary documented in this encounter Care Teams Kids Activities Coach Relationship Specialty Start Date End Date Cassia Blanco Dr. PCP - General 09/08/24 10/05/24 documented as of this encounter
--- OUTSIDE RECORDS SUMMARY | 2024-11-18 15:26 | XMS_ITS | Encounter Summary ---
Author Organization [facility] Address [address] [facility] [address] [place] [address] Care Team Providers Care Metal Die Finisher Name Role Phone Cassia Blanco Dr Primary Care Provider Unavailabl e Reason for Referral * Consultation (Routine) - Closed Specialty Diagnoses / Procedures Referred By Contallison t Referred To Contact Sleep Medicine Diagnoses Obstructive sleep apnea Procedures Polysomnography Abisai Booth MD [address] [facility] [address] [place] [address] Phone: tel: fax: [facility] [address] [facility] [address] [place] [address] Phone: tel: fax: Referral ID Status Reason Start Date Expiration Date Visits Re quested Visits Authorized [id number] Closed 09/19/2024 10/19/2025 1 1 Encounter Details Date Type Department Care Team (Late st Contact Info) Description 09/19/2024 Orders Only [facility] [address] [address] Thomas Hoffmann MD [address] [place] [address] Pulmonary hypertension, not otherwise specified [...] Telemedicine [facility] Pulmonology [address] [address] Aubrey Chang MD [address] [place] [address] 04/14/2025 2:20 PM EST Office Visit [facility] [address] [address] Aubrey Chang MD [address] [place] [phone] Scheduled Orders Name Type Priority Associated Diagnoses Orde r Schedule Polysomnography Sleep Center Routine Obstructive sleep apnea Expected: 09/19/2024 (Approximate), Expires: 09/19/2025 documented as of this encounter Visit Diagnoses Diagnosis Pulmonary hypertension, not otherwise specified- Primary Obstructive sleep apnea documented in this encounter Care Teams Metal Die Finisher Relationship Specialty Start Date End Date Cassia Blanco Dr. PCP - General 09/08/24 10/05/24 documented as of this encounter
--- OUTSIDE RECORDS SUMMARY | 2024-11-18 15:26 | XMS_ITS | Clinical Summary ---
Author Organization [facility] Address [address] [address] Care Team Providers Care Ambulance Operations Supervisor Name Role Phone Unavailable Primary Care [...]
--- OUTSIDE RECORDS SUMMARY | 2024-11-18 15:26 | XMS_ITS | Encounter Summary ---
Author Organization [facility] Address [address] [place] [address] Care Team Providers Care Manager Epic Name Role Phone Cassia Blanco Dr Primary Care Provider Unavailabl e Encounter Details Date Type Department Care Team (Late Contact Info) Description 09/29/2024 Orders Only [facility] Pulmonology [address] [address] Pcp, None Social History Tobacco Use Types [...] EST Telemedicine [facility] [address] [address] Aubrey Chang MD [address] [address] 04/14/2025 2:20 PM EST Office Visit [facility] [address] [address] Aubrey Chang MD [address] [place] [address] documented as of this encounter Procedures [...] filedocumented in this encounter Care Teams Manager Epic Relationship Specialty Start Date End Date Cassia Blanco Dr. PCP - General 09/08/24 10/05/24 documented as of this encounter
--- OUTSIDE RECORDS SUMMARY | 2024-11-18 15:26 | XMS_ITS | Encounter Summary ---
Author Organization [facility] Address [address] [place] [address] Care Team Providers Care Printing Assistant Name Role Phone Maegan Bermeo MD Primary Care Provider [phone] Encounter Details Date Type Department Care Team (Late st Contact Info) Description 07/10/2024 Orders Only External Location [address] [place] [id number] Provider, External Social History Tobacco Use Types [...] drink first t ken in the morning (EYE-SUBSORTER) to steady your nerves or to get [...] documented as of this encounter Care Teams Printing Assistant Relationship Specialty Start Date End Date Maegan Bermeo MD [address] [place] [address] PCP - General Family Medicine 09/15/21 documented as of this encounter
--- OUTSIDE RECORDS SUMMARY | 2024-11-18 15:26 | XMS_ITS | Encounter Summary ---
Author Organization [facility] Address [address] [place] [address] Care Team Providers Care Solar Project Manager Name Role Phone System, Provider Not In Primary Care Provider Un available Encounter Details Date Type Department Care Team (Late st Contact Info) Description 10/30/2024 Telephone [facility] Pulmonology [address] [place] [address] Aubrey Chang MD [address] [facility] [address] [place] [address] Social History Tobacco Use Types [...] she actual passed out. She went to [facility] I have called over to get [...] Telemedicine [facility] Pulmonology [address] [address] Aubrey Chang MD [address] [address] 04/14/2025 2:20 PM EST Office Visit [facility]mon[facility] [address] [address] Aubrey Chang MD [address] [address] documented as of this encounter Visit Diagnoses Not on filedocumented in this encounter Care Teams Solar Project Manager Relationship Specialty Start Date End Date System, Provider Not In PCP - General 10/06/24 documented as of this encounter
--- OUTSIDE RECORDS SUMMARY | 2024-11-18 15:26 | XMS_ITS | Encounter Summary ---
Author Organization [facility] Address [address] [place] [address] Care Team Providers Care Statistical Machine Servicer Name Role Phone Cassia Blanco Dr Primary Care Provider Unavailabl e Reason for Visit * Reason Onset Date Comments Hospital Follow Up 09/22/2024 Encounter Details Date Type Department Care Team ([facility] st Contact Info) Description 09/22/2024 Telephone [facility] [address] [facility] [address] [place] [address] Stefanie Graves RN Hospital Follow Up Social [...] 1955 Date of Discharge: 09/19/2024 Facility Discharged: [facility] Diagnosis at time of Discharge: Severe pulmonary hypertension Cor pulmonale Severe TR Date of Call: 09/23/2024 Date of [facility] Face-to Face Visit: Call Status Call Status: Completed General Clinical How are you feeling now?: Spoke with pt.'s daughter, Marisol. Marisol reports some confusion withwhere prescriptions were sent at d/c as prescriptions were sent to [facility] and [facility]. Marisol ststes she has addressed [...] EST Telemedicine [facility] [address] [address] Aubrey Chang MD [address] [place] [phone] 04/14/2025 2:20 PM EST Office Visit [facility] [address] [address] Aubrey Chang MD [address] [place] [phone] documented as of this encounter Visit Diagnoses Not on filedocumented in this encounter Care Teams Statistical Machine Servicer Relationship Specialty Start Date End Date Cassia Blanco Dr. PCP - General 09/08/24 10/05/24 documented as of this encounter
--- OUTSIDE RECORDS SUMMARY | 2024-11-18 15:26 | XMS_ITS | Encounter Summary ---
Author Organization [facility] Address [address] [place] [address] Care Team Providers Care Director Of Research Center Name Role Phone Phy, No Prim Dr Primary Care Provider Unavailabl e System, Provider Not In Primary Care Provider Un available Encounter Details Date Type Department Care Team (Late st Contact Info) Description 09/22/2024 Telephone [facility] [address] [facility] [place] [address] Phy, Unknown Social History Tobacco Use Types [...] Telemedicine [facility] [address] [address] Aubrey Chang MD [address] [place] [phone] 04/14/2025 2:20 PM EST Office Visit [facility] [address] [address] Aubrey Chang MD [address] [place] [phone] documented as of this encounter Visit Diagnoses Not on filedocumented in this encounter Care Teams Director Of Research Center Relationship Specialty Start Date End Date Cassia Blanco Dr. PCP - General 09/08/24 10/05/24 System, Provider Not In PCP - General 10/06/24 documented as of this encounter
--- OUTSIDE RECORDS SUMMARY | 2024-11-18 15:26 | XMS_ITS | Encounter Summary ---
Author Organization [facility] Address [address] [place] [address] Care Team Providers Care Sales Assistant Entertainment And Media Name Role Phone Jan Castelan MD Primary Care Provider [phone] Benjie Quezada MD Primary Care Provider Tamika Loomis APRN Primary Care Provider [phone] Maegan Bermeo MD Primary Care Provider [phone] Audra Wahl CLIPMAN Unavailable Unavailab Jessa Jimenez CLIPMAN Unavailable Unavailable Reason for Visit * Reason Comments Med Refill Encounter Details Date Type Department Care Team (Late st Contact Info) Description 12/28/2020 Refill Family and Community Medicine [address] [place] [address] Jan Castelan MD [address] [place] [address] Social History Tobacco Use Types [...] asymptomatic, not immunocompromised. Team aware. EVS notified. [facility] has verified patient has a COVID-19 positive result. A chart review has been completed, EPI PUI has been completed and sent to appropriate Health Dept. [facility] Shotblaster: Nimco Demi 10/26/2021 10/26/2021 022 10:27 AM EDT COVID 19 (Confirmed) 11/11/2021 11/11/2021 022 5:23 AM EDT COVID-19 Rule-Out 05/16/2022 05/16/2022 05/16/2022 11:05 PM EDT documented as of this encounter Care Teams Sales Assistant Entertainment And Media Relationship Specialty Start Date End Date Jan Castelan MD [address] [place] [address] PCP - General 07/02/20 08/07/21 Benjie Quezada MD [address] [facility] [address] [place] [address] PCP - General Family Medicine 08/08/21 08/30/21 Tamika Loomis APRN [address] [facility] [address] [place] [address] PCP - General Family Medicine 08/31/21 09/14/21 Maegan Bermeo MD [address] [place] [address] PCP - General Family Medicine 09/15/21 Audra Wahl LPN [employer] [address] TCM Nurse 09/27/21 10/27/21 Jessa Park LPN [employer] [address] Registered Nurse 05/26/22 05/26/22 documented as of this encounter
--- OUTSIDE RECORDS SUMMARY | 2024-11-18 15:26 | XMS_ITS | Encounter Summary ---
Author Organization [facility] Address [address] [place] [address] Care Team Providers Care Hvac Sheet Metal Installer Name Role Phone Maegan Bermeo MD Primary Care Provider [phone] Jessa Park LPN Unavailable Unavailable Reason for Visit * Reason Comments Med Refill Encounter Details Date Type Department Care Team (Late st Contact Info) Description 11/26/2021 Refill Family and Community Medicine [address] [place] [address] Benjie Quezada MD [address] [place] [address] Social History Tobacco Use Types [...] documented as of this encounter Care Teams Hvac Sheet Metal Installer Relationship Specialty Start Date End Date Maegan Bermeo MD [address] [place] [phone] PCP - General Family Medicine 09/15/21 Jessa Park LPN VALUE-[employer]ED [place] [address] Registered Nurse 05/26/22 05/26/22 documented as of this encounter
--- OUTSIDE RECORDS SUMMARY | 2024-11-18 15:26 | XMS_ITS | Clinical Summary ---
Author Organization [facility] Address [address] [place] [address] Care Team Providers Care Backend Developer Name Role Phone System, Provider Not [...] 0.5 ML SUBCUTANEOUSLY ONCE A WEEK Active spironolactone (Aldactone) 25 MG tablet Take 25 mg by mouth in the morning. 07/29/19 25 Active Januvia 50 MG tablet 05/03/19 25 Active Entresto 24-26 MG tablet Take 1 tablet by mouth in the morning and 1 tablet in the evening. 07/29/19 25 Active pantoprazole (ProtoNix) 40 MG EC tablet Take 40 mg by mouth in the morning. 05/03/19 25 Active nystatin (Mycostatin) 388741 UNIT/GM powder Apply topically in the morning and before bedtime. 05/10/19 25 Active ferrous sulfate 325 (65 Fe) MG tablet Take 1 tablet by mouth every other day. 09/27/19 25 Active dapagliflozin (Farxiga) 10 MG Take 10 mg by mouth in the morning. 05/03/19 25 Active DULoxetine (Cymbalta) [address] capsule 09/18/19 25 Active tadalafil, antihypertensi ve, (Adcirca) 20 mg tabletIndicati ons:Pulmonary hypertension, not otherwise specified Take 1 tablet by mouth in the morning. 360 tablet 11 10/08/19 25 037 Active ondansetron (Zofran) 8 MG tabletIndicati ons:Pulmonary hypertension, not otherwise specified Take 1 tablet by mouth every 8 (eight) hours if needed for nausea or vomiting for up to 30 days. 20 tablet 3 10/16/19 25 025 Active Problems Problem Noted Date Diagnosed Date [...] but pain at time of arrival to [facility] PLAN: -pain control initially with [...] [address] [facility] [address] [place] [address] Cheko Garza MD Appointment 10/30/2024 Telephone [facility] - Pulmonology [address] [address] [place] [address] Aubrey Chang MD 10/15/2024 Telephone [facility] - Pulmonology [address] [address] Shikha Clayton MA Side Effects 10/13/2024 Telephone [facility] - Pulmonology [address] [address] Shikha Clayton MA Opsumit Approval 10/08/2024 Telephone [facility] - Pulmonology [address] [facility] [address] [place] [address] Shikha Clayton MA Tadalafil Approval. 10/08/2024 Telephone [facility] - Pulmonology [address] [facility] [address] [place] [address] Shikha Clayton MA Opsumit RX 10/07/2024 3:00 PM EDT Office Visit [facility] - Pulmonology [address] [address] Aubrey Chang MD Pulmonary hypertension, not otherwise specified (Primary Dx); Obstructive sleep apnea syndrome 10/07/2024 2:40 PM EDT Procedure Visit [facility] - Pulmonology [address] [address] Pulmonary hypertension 10/07/2024 2:00 PM EDT Procedure Visit [facility] - Pulmonology [address] [address] Pulmonary hypertension 10/06/2024 2:00 PM EDT Office Visit [facility] - Cardiovascular Medicine [address] [facility] [address] [place] [address] Abisai Booth MD Tricuspid incompetence, non-rheumatic (Primary Dx); Shortness of breath; Heart valve disorder 10/06/2024 Travel 09/30/2024 Telephone [facility] Sleep Center [address] [address] Cheko Garza MD Appointment; Forms/questionnaire s (Night tech questions) 09/30/2024 Telephone [facility] [address] [address] Cheko Garza MD Appointment 09/29/2024 [facility] [address] [address] Pcp, None 09/22/2024 [facility] [address] [address] Dov Lopez, RFID ENGINEER Pulmonary hypertension (Primary Dx) 09/22/2024 Telephone [facility] [address] [facility] [address] [place] [address] Olga Lidia Dahl, RFID ENGINEER Hospital f/u Appt Request 09/22/2024 Telephone [facility] [address] [place] [address] Phy, Unknown 09/22/2024 Telephone [facility] Administrative Services [address] [place], [place] [id number] Stefanie Graves RN Hospital Follow Up 09/19/2024 Orders Only [facility] - Cardiovascular Medicine [address] [facility] [address] [place], [place] [id number] Thomas Hoffmann MD Pulmonary hypertension, not otherwise [...] EST Telemedicine [facility] - Pulmonology [address] [address] Aubrey Chang MD [address] [phone] 04/14/2025 2:20 PM EST Office Visit [facility] - Pulmonology [address] [address] Aubrey Chang MD [address] [place] [phone] Health Maintenance Due Date Last Done Comments [...] Result from Last 3 Months Insurance MEDICARE [facility] Care Teams Backend Developer Relationship Specialty Start Date End Date System, Provider Not In PCP - General 10/06/24
[2024-11-18 15:28] VITALS: O2SAT 92
--- NOTE | 2024-11-18 15:39 | CARE MANAGER ---
Addendum entered by Melba Barclay RN 12/03/24 15:40: Patient is able to go by [facility]. Daughter was in patient's room. She was very upset and states that we don't communicate well with [place]. She stated she could not come today, but was still here and was not happy. I explained to her that I tried to call her and that I was arranging Oxygen and transportation to [place]. Daughter states to allow [facility] to take her. There has been communication with Brody from [facility] [place] multiple times today to discuss patient's medical status and transportation. The last thing I told him was that the nurse was assessing the patient because it wasn't clear if she would transport by ambulance or [facility]. Upon the daughter leaving I let Brody know she would come by care a van. Addendum entered by Melba Barclay RN 12/03/24 14:49: Spoke with Brody and patient is fine to come back. Possibly needs Oxygen. Left a message for daughter to update. Addendum entered by Melba Barclay RN 12/02/24 14:27: Spoke with daughter. Patient likely to be discharged tomorrow. Daughter states she will be unable to transport patient to [place]. Nurse states she will likely not qualify for ambulance. Patient my have to use [facility] or [facility] [facility]'s transportation. Addendum entered by Melba Barclay RN 11/20/24 15:58: Spoke with patient and daughter regarding discharge planning. Still unsure if wanting to return to [place] or try [place]. We discussed that once medically stable the [place] bed is available and she could discharge there. They both verbalized understanding and verbalized concerned about possible discharge on Tadanafil and their concern for [facility] [facility] being able to obtain it. Prior to discharge we will discuss this with them. Addendum entered by Melba Barclay RN 11/19/24 15:42: Had lengthy conversation with patient and patient's daughter. They are concerned regarding frequent readmissions and the care she is receiving at [facility]. They are currently paying for bed hold, but are not 100% sure they want her to return there. They are not ok with [facility], [facility] or [facility], or any facility in [place]. They are considering [place], but geethajennifer want to return to [place] if everyone come be on the same page and come up with a plan that helps the patient. Will continue to follow . Original Note: Spoke with SHANNA at [facility] and verified patient's medications. She has been taking Bumex 2mg BID as directed as well as the medication for her pulmonary HTN. There have been no issues with that. They weigh her daily and today she was down 1 pound from yesterday and 3lbs from 11/15/24. Relayed information to Dr. Oconnor.
--- NOTE | 2024-11-18 15:40 | EXP.HP ---
History of Present Illness *Admission Date: 11/18/24 *Reason for visit:: dyspnea, leg swelling, wt gain *History of present illness: Mrs. Flannery is a 69-year-old female with a medical history significant for severe right heart failure/cor pulmonale from pulmonary hypertension, asplenia, paroxysmal A-fib, CAD, type 2 diabetes, anxiety/depression, GERD who presented from [facility] for routine follow-up with pulmonology and cardiology today. Complains of increased swelling in her legs, weight gain over the past 2 weeks, and worsening rhonchorous cough along with increased oxygen requirement (3 L). Patient was discharged from our hospital approximately 2 weeks ago after aggressive diuresis. Plan to continue diuretics and Opsumit for her pulmonary hypertension. Unfortunately had worsening edema and not responding as well as when she was admitted. On follow-up today, increased dyspnea in spite of having her diuretics doubled last week. Denies fever or vomiting. Denies chest pain. Has a little bit of a cough but nonproductive. Leg significantly more swollen and shiny on evaluation. Cardiology requested admission due to worsening volume overload. On evaluation in the unit, patient definitely appears more volume overloaded compared to previous discharge. Feels weak. Feels short of breath. [facility] Disclaimer: The information contained in this section may have been updated after the patient was seen, as this information can be updated by other users. Medical History Acute on chronic right heart failure Acute and chronic respiratory failure with hypoxia Cor pulmonale Hypertension Abnormal abdominal CT scan Peripheral arterial disease Primary pulmonary hypertension Type 2 diabetes mellitus with foot ulcer UTI (urinary tract infection) Renal insufficiency Hyperkalemia Hypotension CAD in igiugig artery BMI 39.0-39.9,adult Chronic anemia Chronic anticoagulation Coronary artery disease Diabetes HFrEF (heart failure with reduced ejection fraction) Pulmonary hypertension Depression Constipation GERD (gastroesophageal reflux disease) Oxygen dependent Atrial fibrillation Surgical History Status post left heart catheterization Family History Alcohol abuse Family history of cancer Heart attack Social History (Updated 11/18/24 @ 16:01 by Mandy Patino RN) Smoking Status: Never smoker alcohol intake: never current occupational status: unemployed Travel in the last 8 weeks?: None Have you lived/traveled outside US in past 30 days?: No Contact w/someone who lives/traveled outside US past 30 days?: No Exposure to someone with infectious disease in past 14 days?: No Do you have a fever (greater than 100.4 F or 38 C)?: No Have you tested positive for COVID-19?: No Exposed to someone with COVID-19 in past 14 days?: No Do you have a sore throat?: No Do you have a cough?: No Do you have any weakness?: No Are you experiencing any nausea/vomitting?: No Do you have any diarrhea?: No Are you experiencing any unusual bleeding?: No Do you have any muscle aches/pain?: No Do you have any abdominal pain?: No Are you experiencing loss of taste or smell?: No Other Medical History Have you received the Flu Vaccine for this season: No Have you received the Pneumonia Vaccine: Yes Review of Systems Review of Systems Review of systems (narrative): 14 point review of systems performed, pertinent positives and negatives as per HPI Meds Home Medications and Allergies Home Medications ?Medication ?Instructions ?Recorded ?Confirmed ?Type acetaminophen 500 mg tablet 1,000 mg PO Q6H PRN Mild Pain 05/09/24 11/18/24 History (Tylenol Extra Strength) (Scale Score 1-4) zolpidem 5 mg tablet (Ambien) 5 mg PO HS PRN sleep #30 tabs 08/26/24 11/18/24 Rx nystatin 100,000 unit/gram topical 1 applic topical BID PRN 09/30/24 11/18/24 History powder Excoriation apixaban 5 mg tablet (Eliquis) 5 mg PO BID 10/17/24 11/18/24 History duloxetine 60 mg capsule,delayed 60 mg PO DAILY 10/17/24 11/18/24 History release famotidine 20 mg tablet 20 mg PO DAILY 10/17/24 11/18/24 History melatonin 5 mg tablet 5 mg PO HS 10/17/24 11/18/24 History nortriptyline 25 mg capsule 25 mg PO HS 10/17/24 11/18/24 History sennosides 8.6 mg-docusate sodium 1 tab PO DAILY 10/17/24 11/18/24 History 50 mg tablet (Senexon-S) ferrous sulfate 325 mg (65 mg 325 mg PO Q48H 10/18/24 11/18/24 History iron) tablet (Feosol) polyethylene glycol 3350 17 gram 17 g PO DAILYP PRN Constipation 30 10/23/24 11/18/24 Rx oral powder packet (HealthyLax) days #30 ea ipratropium 0.5 mg-albuterol 3 mg 1 ml inhalation Q6HP PRN soa 11/05/24 11/18/24 History (2.5 mg base)/3 mL nebulization soln ondansetron HCl 8 mg tablet 4 mg PO Q8HP PRN Nausea And 11/05/24 11/18/24 History Vomiting macitentan 10 mg tablet (Opsumit) 10 mg PO DAILY 30 days #30 tabs 11/08/24 11/18/24 Rx bumetanide 1 mg tablet 2 mg (2 x 1 mg) PO BID #60 tabs 11/12/24 11/18/24 Rx ascorbic acid (vitamin C) 500 mg 500 mg PO DAILY 11/18/24 11/18/24 History capsule New Prescriptions to Start Prescriptions: Allergies Allergy/AdvReac Type Severity Reaction Status Date / Time levofloxacin Allergy hives Verified 11/18/24 14:17 meperidine Allergy hives Verified 11/18/24 14:17 Exam Constitutional Constitutional: moderate distress, obese, chronically ill appearing and cooperative *Routine HEENT Exam Head: Present normocephalic Eye: Present EOMI and PERRL ENT: Present mucous membranes moist Comments: Cheeks flushed bilaterally *Routine Neck Exam Neck: Present supple; Absent lymphadenopathy *Routine Respiratory Exam Respiratory: Present accessory muscle use, prolonged expiratory phase, rhonchi, crackles (Bases bilaterally posterior lung field) and distant breath sounds; Absent wheezes or normal respiratory effort *Routine Cardiovascular Exam Cardiovascular: Present RRR *Routine Abdominal Exam Abdominal: Present soft and normoactive bowel sounds; Absent tenderness *Routine Rectal Exam Rectal:: deferred *Routine Genitalia Exam Genitalia:: deferred *Routine Extremities Exam Extremities: Present edema (3+ to her thighs); Absent cyanosis or clubbing *Routine Skin Exam Skin: Present intact and warm; Absent rash Comments: Legs with mild erythema, shiny and tight from edema *Routine Neurological Exam Neurological: Present alert, oriented X3 and moving all extremities; Absent altered mental status Assessment and Plan *Assessment and plan (1) (HFpEF) heart failure with preserved ejection fraction: Status: Acute Qualifiers: Heart failure chronicity: acute on chronic Qualified Code(s): I50.33 - Acute on chronic diastolic (congestive) heart failure Category: Medical Code(s): I50.30 - Unspecified diastolic (congestive) heart failure (2) Cor pulmonale: Status: Acute Category: Medical Code(s): I27.81 - Cor pulmonale (chronic) (3) Primary pulmonary hypertension: Status: Chronic Category: Medical Code(s): I27.0 - Primary pulmonary hypertension (4) Hypertension: Status: Chronic Qualifiers: Hypertension type: primary hypertension Qualified Code(s): I10 - Essential (primary) hypertension Category: Medical Code(s): I10 - Essential (primary) hypertension (5) Asplenia: Status: Chronic Category: Medical Code(s): Q89.01 - Asplenia (congenital) (6) Severe tricuspid regurgitation: Status: Chronic Category: Medical Code(s): I07.1 - Rheumatic tricuspid insufficiency (7) Diabetes mellitus type 2 in obese: Status: Chronic Category: Medical Code(s): E11.69 - Type 2 diabetes mellitus with other specified complication; E66.9 - Obesity, unspecified (8) Obesity: Problem Comment: Class II Status: Chronic Qualifiers: Body mass index: BMI 40.0-44.9 Obesity classification: adult class 3 (BMI >= 40) Obesity type: due to excess calories Category: Medical Code(s): E66.9 - Obesity, unspecified (9) Atrial fibrillation: Status: Chronic Qualifiers: Atrial fibrillation type: longstanding persistent Qualified Code(s): I48.11 - Longstanding persistent atrial fibrillation Category: Medical Code(s): I48.91 - Unspecified atrial fibrillation Plan Rica Flannery is a 69-year-old female with a medical history significant for severe right heart failure/cor pulmonale from pulmonary hypertension, asplenia, paroxysmal A-fib, CAD, type 2 diabetes, anxiety/depression, GERD presents with dyspnea for follow-up with cardiology and pulmonology today. During her visit with cardiology, concern for patient's continued oxygen requirement and failure of adjustments to outpatient regimen. Discussed case with cardiology team, request admission for Bumex drip and aggressive diuresis. I agreed to admit to the stepdown unit for further inpatient care. Pulmonology and cardiology consulted to evaluate the patient in the morning. Necessitating inpatient care, risk for decompensation. Anticipate patient will be admitted for at least 2 midnights. Problems addressed as follows: # Pulmonary hypertension with cor pulmonale # Severe RV failure with cor pulmonale # Severe tricuspid regurgitation # Acute on chronic HFpEF #Medication side effect ? Patient has underlying pulmonary hypertension with concomitant cor pulmonale, possibly related to undiagnosed sleep apnea versus history of hypertension. - Reviewed right and left heart cath from [place], Consistent with primary pulmonary hypertension. Right heart failure severe. Pulmonary artery pressures equal to systemic pressures. ?Was previously started on tadalafil, macitentan. At last discharge continued macitentan. Strong concern that patient is having worsening peripheral edema and fluid retention secondary to Opsumit given there are postmarketing reports associated with other endothelin antagonists. Will hold Opsumit at this time and aggressively diurese. Further discussion with pulmonology about the utility of continuing Opsumit versus resuming just tadalafil at this time. - Initiate Bumex drip. 2 mg IV bolus followed by 1 mg/h drip. Monitor for negative fluid status. Milligan placed for strict monitoring of output - Repeat CBC, CMP, magnesium ordered for the morning - Goal sats greater than 90%, currently on 3L. - Initial labs obtained with CBC, CMP, magnesium. White count 11.4, does not have neutrophil predominance. Hemoglobin 8.8, improved from 8.4 on the 24th and 7.9 at discharge 10 days ago. Appears stable. Platelets 417. -Will hold on antibiotics at this time. - Electrolytes stable with sodium 137, chloride low at 89. Potassium 3.3. Bicarb 39. BUN 18 with creatinine 1.0. Magnesium 2.0. BNP elevated at 3800, down from the 11/05 at 5800, and 15,000 on 10/21. - Chest x-ray per my review with increased pulmonary vascular congestion and edema, but no clear effusion as she has visible costophrenic angles. ? ECHO August 2024 shows markedly elevated RVSP >60 mmHg, severe RV dilatation with failure. EF preserved ? Has underlying pulmonary hypertension, has not been evaluated for sleep apnea or sleep study. Has one scheduled for November 2024. # Iron deficient anemia: Anemia improved with hemoglobin 8.8. Transfusion threshold hemoglobin less than 8, repeat CBC, CMP, magnesium ordered for the morning #History of asplenia: Monitor closely for infection. #Physical deconditioning #Depression ? Patient's recently. Had gone to rehab for therapy. Was participating well with PT and OT. Will reconsult PT and OT while admitted. ? Mood stable, continue home duloxetine 60 mg daily, nortriptyline 25 mg daily. - Melatonin 5 mg nightly for sleep Chronic medical problems: #Paroxysmal A-fib: Currently rate controlled. Continue home Eliquis 5 mg twice daily. Hold home metoprolol due to hypotension. #CAD: Continue home aspirin, hold statin with aggressive diuresis. DNR/DNI DVT prophylaxis: Resume home Eliquis Cardiac diet
[2024-11-18 15:43] VITALS: PULSE 66
--- NOTE | 2024-11-18 15:47 | XR_ITS ---
PROCEDURE INFORMATION: Exam: XR Chest Exam date and time: 11/18/2024 3:53 PM Age: 69 years old Clinical indication: Dyspnea TECHNIQUE: Imaging protocol: Radiologic exam of the chest. Views: 1 view. COMPARISON: CT ANGIO CHEST PE PROTOCOL 11/05/2024 5:34 PM FINDINGS: Lungs: There is chest wall attenuation of the lung bases. There is [id number] pulmonary vascular congestion. The left lung base is obscured by the enlarged cardiac shadow and chest wall attenuation. No definite acute lung process identified. Pleural spaces: No definite pleural effusions are identified. No visible pneumothorax. Heart/Mediastinum: There is stable enlargement of the cardiac silhouette. Bones/joints: There are costochondral calcifications. There is moderate right glenohumeral osteoarthritis. Soft tissues: The soft tissues are unremarkable. IMPRESSION: Findings of congestive heart failure.
[2024-11-18 15:56] VITALS: BMI 43.9
[2024-11-18 16:00] VITALS: BP 124/76; PULSE 74; PULSE 78; RESP 16; TEMP 36.8; O2SAT 91
[2024-11-18 16:00] LABS: Hematocrit 30.4 % (37.0-47.0); Hemoglobin 8.8 g/dL (12.2-16.2); Immature Granulocytes % 0.4 %; Mean Corpuscular HGB Conc 28.9 g/dL (31.8-35.4); Mean Corpuscular Hemoglobin 24.0 pg (27.0-31.2); Mean Corpuscular Volume 83.1 fl (81-99); Nucleated Red Blood Cells % 0.2 %; Platelet Count 417 K/mm3 (142-424); Red Blood Count 3.66 M/mm3 (4.20-5.40); Red Cell Distribution Width-SD 80.6 fL; White Blood Count 11.4 K/mm3 (4.8-10.8)
--- NOTE | 2024-11-18 16:30 | PC.NURSE ---
i was unable to establish IV access. camp housekeeper called for ultrasound guided
[2024-11-18 16:35] LABS: Alanine Aminotransferase 13 U/L (12-78); Albumin Level 3.7 g/dl (3.5-5.0); Albumin/Globulin Ratio 1.0 (1.1-1.8); Alkaline Phosphatase 208 U/L (38-126); Anion Gap 12.3 mEq/L (5-15); Aspartate Amino Transferase 23 U/L (14-36); Bilirubin,Total 0.9 mg/dl (0.2-1.3); Blood Urea Nitrogen 18 mg/dl (7-17); Calcium 9.1 mg/dl (8.4-10.2); Carbon Dioxide 39 mmol/L (22.0-30.0); Chloride 89 mmol/L (98-107); Creatinine Clearance Estimated 45 mL/min (50-200); Creatinine,Serum 1.00 mg/dl (0.52-1.04); Estimated Glomerular Filt Rate 55 ml/min (>60); GFR (African American) 66 ML/MIN (>60); Globulin 3.6 g/dL (1.3-3.2); Glucose 109 mg/dl (74-100); Magnesium 2.0 mg/dl (1.6-2.3); Potassium 3.3 mmoL/L (3.5-5.1); Sodium 137 mmol/L (136-145); Total Protein,Serum 7.3 g/dl (6.3-8.2)
[2024-11-18 16:40] LABS: Anisocytosis 1+; Giant Platelets 1+; Macrocytosis 1+; Poikilocytosis 1+; Total Cells Counted 100
[2024-11-18 16:41] LABS: Burr Cells 1+; Hypochromasia 1+; Polychromasia 1+; Target Cells 1+
[2024-11-18 16:42] LABS: Microcytosis 1+; Tear Drop Cells 1+
[2024-11-18 16:45] LABS: NT Pro Brain Natriuretic Pep. 3830 pg/mL (0-125); Troponin I 0.02 ng/ml (0.00-0.034)
[2024-11-18] MEDS: BUMETANIDE 10 MG in 0.9 % SODIUM CHLORIDE 60 ML IV (17:03)
[2024-11-18] MEDS: BUMETANIDE 1MG/4ML VIAL 2 MG IM (17:03)
[2024-11-18] MEDS: POTASSIUM CHLORIDE 20MEQ TAB 40 MEQ PO ×2 (17:37→20:38)
--- NOTE | 2024-11-18 19:21 | PC.NURSE ---
Patient alert and oriented. Patient getting diuresised at this time with bumex drip at 10ml/hr. Patient is on electrolyte protocol and is receiving oral potassium 2 doses each dose is 40 mEq. Patient has 22g iv in the left forearm bumex is going through it, and a 20g iv that was ultrasound guided that is saline locked. Patient has a 16fr ramesh in place to monitor accurate output. Patient has 3+ edema to lower extremities and then generalized edema throughout her body. Patient resting at this time.
[2024-11-18 20:00] VITALS: PULSE 77; PULSE 80; O2SAT 92
[2024-11-18] MEDS: MELATONIN 5MG TABLET 5 MG PO (20:38)
[2024-11-18] MEDS: APIXABAN 5MG TABLET 5 MG PO (20:38)
[2024-11-18 22:00] VITALS: BP 127/68; PULSE 87; RESP 14; O2SAT 94
[2024-11-19] VITALS (10 sets, daily range): BP systolic 105–137; BP diastolic 54–77; PULSE 73–90; RESP 16–19; TEMP 36.9–37.2; O2SAT 93–100; BMI 44.0
[2024-11-19] MEDS: BUMETANIDE 10 MG in 0.9 % SODIUM CHLORIDE 60 ML IV ×3 (01:11→21:41)
[2024-11-19 06:25] LABS: Hematocrit 28.6 % (37.0-47.0); Hemoglobin 8.3 g/dL (12.2-16.2); Immature Granulocytes % 0.4 %; Mean Corpuscular HGB Conc 29.0 g/dL (31.8-35.4); Mean Corpuscular Hemoglobin 24.0 pg (27.0-31.2); Mean Corpuscular Volume 82.7 fl (81-99); Nucleated Red Blood Cells % 0.2 %; Platelet Count 386 K/mm3 (142-424); Red Blood Count 3.46 M/mm3 (4.20-5.40); Red Cell Distribution Width-SD 78.3 fL; White Blood Count 9.6 K/mm3 (4.8-10.8)
--- NOTE | 2024-11-19 07:54 | SW/DCPLANNER ---
Addendum entered by Kacey Ho 12/02/24 09:27: Updated patient information faxed to [facility]/ [facility]. Addendum entered by Kacey Ho 11/25/24 11:25: I have updated [facility]/ [facility] that patient may be ready for discharge this afternoon. Patient will return SNF level of care. Addendum entered by Lidia Lee 11/24/24 14:09: updated information was faxed to [place] on patient. [place] Original Note: Patient currently resides at [facility] level of care. Updated patient information will be faxed to [facility]. Discharge date is unknown at this time. CM will continue to follow up.
[2024-11-19 08:57] LABS: Alanine Aminotransferase 11 U/L (12-78); Albumin Level 3.3 g/dl (3.5-5.0); Albumin/Globulin Ratio 1.0 (1.1-1.8); Alkaline Phosphatase 175 U/L (38-126); Aspartate Amino Transferase 23 U/L (14-36); Bilirubin,Total 0.7 mg/dl (0.2-1.3); Blood Urea Nitrogen 16 mg/dl (7-17); Calcium 8.3 mg/dl (8.4-10.2); Chloride 91 mmol/L (98-107); Creatinine Clearance Estimated 45 mL/min (50-200); Creatinine,Serum 0.90 mg/dl (0.52-1.04); Estimated Glomerular Filt Rate 62 ml/min (>60); GFR (African American) 75 ML/MIN (>60); Globulin 3.4 g/dL (1.3-3.2); Glucose 154 mg/dl (74-100); Magnesium 1.9 mg/dl (1.6-2.3); Potassium 3.4 mmoL/L (3.5-5.1); Sodium 136 mmol/L (136-145); Total Protein,Serum 6.7 g/dl (6.3-8.2)
--- NOTE | 2024-11-19 08:58 | P.CONPHA_ITS ---
Pharmacy Intervention Comments: HOME MEDICATION LIST VERIFIED USING LIST FROM [facility]
--- NOTE | 2024-11-19 08:58 | HMH.PHAINT1 ---
Pharmacy Intervention Comments: HOME MEDICATION LIST VERIFIED USING [facility]
--- NOTE | 2024-11-19 09:15 | EXP.PULM.CON ---
History of Present Illness History of present illness: Ms. Flannery is a 69 year-old female no significant smoking history, obesity, high risk for sleep apnea recently had a diagnosis of pulmonary hypertension status post right heart cath showed pulmonary hypertension with increased PVR at 12 ureña which also showed to have elevated wedge pressure at 18 initiated on a combination of Tadanafil and Macicentan for her pulmonary arterial hypertension, since then having frequent hospital admissions for worsening respiratory distress hypertension dizziness and volume overload recently discharged from the hospital after volume optimization presented worsening respiratory distress and pulmonary was called for further evaluation and management. [facility] Disclaimer: The information contained in this section may have been updated after the patient was seen, as this information can be updated by other users. Medical History Acute on chronic right heart failure Acute and chronic respiratory failure with hypoxia Cor pulmonale Hypertension Abnormal abdominal CT scan Peripheral arterial disease Primary pulmonary hypertension Type 2 diabetes mellitus with foot ulcer UTI (urinary tract infection) Renal insufficiency Hyperkalemia Hypotension CAD in [place] artery BMI 39.0-39.9,adult Chronic anemia Chronic anticoagulation Coronary artery disease Diabetes HFrEF (heart failure with reduced ejection fraction) Pulmonary hypertension Depression Constipation GERD (gastroesophageal reflux disease) Oxygen dependent Atrial fibrillation Surgical History Status post left heart catheterization Family History Other Alcohol abuse Family history of cancer Heart attack Social History Smoking Status: Never smoker alcohol intake: never current occupational status: unemployed Travel in the last 8 weeks?: None Have you lived/traveled outside [place] in past 30 days?: No Contact w/someone who lives/traveled outside US past 30 days?: No Exposure to someone with infectious disease in past 14 days?: No Do you have a fever (greater than 100.4 F or 38 C)?: No Have you tested positive for COVID-19?: No Exposed to someone with COVID-19 in past 14 days?: No Do you have a sore throat?: No Do you have a cough?: No Do you have any weakness?: No Are you experiencing any nausea/vomitting?: No Do you have any diarrhea?: No Are you experiencing any unusual bleeding?: No Do you have any muscle aches/pain?: No Do you have any abdominal pain?: No Are you experiencing loss of taste or smell?: No Review of Systems Constitutional Constitutional: Reports anorexia, Reports body ache(s) and Reports fatigue Eyes Eyes: Denies eye discharge, Denies dry eyes, Denies irritation and Denies itchy eyes ENT Ears, Nose, Mouth, and Throat: Denies epistaxis, Denies facial pain, Denies lip swelling and Denies throat swelling *Cardiovascular Cardiovascular: Reports dyspnea, Reports dyspnea on exertion, Reports leg edema, Reports orthopnea and Reports pedal edema *Respiratory Respiratory: Denies change in phlegm color, Reports chest congestion, Reports cough, Reports dyspnea, Reports dyspnea on exertion, Denies excessive phlegm production, Denies hemoptysis, Denies pain on inspiration, Denies pain with cough and Denies wheezing *Gastrointestinal Gastrointestinal: Denies abdominal pain, Denies belching and Denies cramping *Musculoskeletal Musculoskeletal: Reports back pain, Reports myalgias and Reports other (No small joint swelling or Pain) Psychiatric Psychiatric: Denies homicidal ideation and Denies suicidal ideation Endocrine Endocrine: Reports fatigue and Denies heat intolerance Hematologic/Lymphatic Hematologic/Lymphatic: Denies easy bleeding and Denies lymphadenopathy Allergic/Immunologic Allergic/Immunologic: Denies itchy eyes, Denies lip swelling, Denies throat swelling and Denies wheezing Pulmonology Exam Inpatient Vital signs and Labs for Last 24 Hours: Temp Pulse Resp BP Pulse Ox O2 Del Method O2 Flow Rate 98.4 F 76 17 132/77 96 Nasal Cannula 2 11/19/24 04:00 11/19/24 06:30 11/19/24 06:30 11/19/24 06:00 11/19/24 06:30 11/19/24 06:30 11/19/24 06:30 Laboratory Results - last 24 hr 11/18/24 15:52: WBC 11.4 H, RBC 3.66 L, Hgb 8.8 L, Hct 30.4 L, MCV 83.1, MCH 24.0 L, MCHC 28.9 L, RDW 26.7 H*, Plt Count 417, MPV 10.3, Neut % (Auto) 66.2, Lymph % (Auto) 12.2, [place] % (Auto) 13.6 H, Eos % (Auto) 6.6, Baso % (Auto) 1.0, Neut # (Auto) 7.6, Lymph # (Auto) 1.4, [place] # (Auto) 1.6 H, Eos # (Auto) 0.8 H, Baso # (Auto) 0.1, Total Counted 100, Neutrophils % (Manual) 67, Lymphocytes % (Manual) 14, Monocytes % (Manual) 13 H, Eosinophils % (Manual) 5 H, Basophils % (Manual) 1.0, Platelet Estimate Slight increase, Giant Platelets 1+, Polychromasia 1+, Hypochromasia 1+, Poikilocytosis 1+, Anisocytosis 1+, Microcytosis 1+, Macrocytosis 1+, Target Cells 1+, Tear Drop Cells 1+, [place] Cells 1+, Sodium 137, Potassium 3.3 L, Chloride 89 L, Carbon Dioxide 39 H, Anion Gap 12.3, BUN 18 H, Creatinine 1.00, Estimated Creat Clear 45, Estimated GFR 55 L, Est GFR ( Amer) 66, Glucose 109 H, Calcium 9.1, Magnesium 2.0, Total Bilirubin 0.9, AST 23, ALT 13, Alkaline Phosphatase 208 H, Troponin I 0.02, NT-Pro-B Natriuret Pep 3830 H, Total Protein 7.3, Albumin 3.7, Globulin 3.6 H, Albumin/Globulin Ratio 1.0 L 11/19/24 05:33: WBC 9.6, RBC 3.46 L, Hgb 8.3 L, Hct 28.6 L, MCV 82.7, MCH 24.0 L, MCHC 29.0 L, RDW 26.8 H*, Plt Count 386, MPV 10.4, Neut % (Auto) 63.9, Lymph % (Auto) 13.8, [place] % (Auto) 13.5 H, Eos % (Auto) 7.3, Baso % (Auto) 1.1, Neut # (Auto) 6.1, Lymph # (Auto) 1.3, [place] # (Auto) 1.3 H, Eos # (Auto) 0.7 H, Baso # (Auto) 0.1, Sodium 136, Potassium 3.4 L, Chloride 91 L, BUN 16, Creatinine 0.90, Estimated Creat Clear 45, Estimated GFR 62, Est GFR ( Amer) 75, Glucose 154 H D, Calcium 8.3 L, Magnesium 1.9, Total Bilirubin 0.7, AST 23, ALT 11 L, Alkaline Phosphatase 175 H, Total Protein 6.7, Albumin 3.3 L D, Globulin 3.4 H, Albumin/Globulin Ratio 1.0 L I & O for Labs for Last 24 Hours: Intake & Output 11/16/24 11/17/24 11/18/24 11/19/24 23:59 23:59 23:59 23:59 Intake Total 240 / 240 81.333 / 81.333 Output Total 1151 / 1601 1350 / 1350 Balance -911 / -1361 -1268.667 / -1268.667 Weight 256 lb 2.834 oz 257 lb 15.053 oz Constitutional: Present moderate distress Head: Present normocephalic and atraumatic ENT: Present normal exam, normal oropharynx and mucous membranes moist Neck: Present normal inspection and full ROM Respiratory: Present respiratory distress, diminished air movement and able to speak in complete sentences; Absent prolonged expiratory phase, rhonchi or wheezes Cardiac: Present S1/S2, Tachycardia and radial pulses present GI: Present soft and distention; Absent tenderness or guarding Rectal (female): Present deferred (female): Present deferred Skin: Present intact; Absent cyanosis or jaundice Neuro: Present alert, awake and oriented x 3 Extremities: Present normal inspection and edema; Absent clubbing or cyanosis Psychiatric: Present normal affect and cooperative Meds Home Medications and Allergies Home Medications ?Medication ?Instructions ?Recorded ?Confirmed ?Type acetaminophen 500 mg tablet 1,000 mg PO Q6H PRN Mild Pain 05/09/24 11/18/24 History (Tylenol Extra Strength) (Scale Score 1-4) zolpidem 5 mg tablet (Ambien) 5 mg PO HS PRN sleep #30 tabs 08/26/24 11/18/24 Rx nystatin 100,000 unit/gram topical 1 applic topical BID PRN 09/30/24 11/18/24 History powder Excoriation apixaban 5 mg tablet (Eliquis) 5 mg PO BID 10/17/24 11/18/24 History duloxetine 60 mg capsule,delayed 60 mg PO DAILY 10/17/24 11/18/24 History release famotidine 20 mg tablet 20 mg PO DAILY 10/17/24 11/18/24 History melatonin 5 mg tablet 5 mg PO HS 10/17/24 11/18/24 History nortriptyline 25 mg capsule 25 mg PO HS 10/17/24 11/18/24 History sennosides 8.6 mg-docusate sodium 1 tab PO DAILY 10/17/24 11/18/24 History 50 mg tablet (Senexon-S) ferrous sulfate 325 mg (65 mg 325 mg PO Q48H 10/18/24 11/18/24 History iron) tablet (Feosol) polyethylene glycol 3350 17 gram 17 g PO DAILYP PRN Constipation 30 10/23/24 11/18/24 Rx oral powder packet (HealthyLax) days #30 ea ipratropium 0.5 mg-albuterol 3 mg 1 ml inhalation Q6HP PRN soa 11/05/24 11/18/24 History (2.5 mg base)/3 mL nebulization soln ondansetron HCl 8 mg tablet 8 mg PO Q8HP PRN Nausea And 11/05/24 11/19/24 History Vomiting macitentan 10 mg tablet (Opsumit) 10 mg PO DAILY 30 days #30 tabs 11/08/24 11/18/24 Rx bumetanide 1 mg tablet 2 mg (2 x 1 mg) PO BID #60 tabs 11/12/24 11/18/24 Rx ascorbic acid (vitamin C) 500 mg 500 mg PO DAILY 11/18/24 11/18/24 History capsule New Prescriptions to Start Prescriptions: Allergies Allergy/AdvReac Type Severity Reaction Status Date / Time levofloxacin Allergy hives Verified 11/18/24 14:17 meperidine Allergy hives Verified 11/18/24 14:17 Results Laboratory Findings 11/19/24 05:33 11/19/24 05:33 Abnormal lab findings: Abnormal Labs 11/18/24 11/19/24 15:52 05:33 WBC 11.4 H RBC 3.66 L 3.46 L Hgb 8.8 L 8.3 L Hct 30.4 L 28.6 L MCH 24.0 L 24.0 L MCHC 28.9 L 29.0 L RDW 26.7 H* 26.8 H* [place] % (Auto) 13.6 H 13.5 H [place] # (Auto) 1.6 H 1.3 H Eos # (Auto) 0.8 H 0.7 H Monocytes % (Manual) 13 H Eosinophils % (Manual) 5 H Potassium 3.3 L 3.4 L Chloride 89 L 91 L Carbon Dioxide 39 H BUN 18 H Estimated GFR 55 L Glucose 109 H 154 H D Calcium 8.3 L ALT 11 L Alkaline Phosphatase 208 H 175 H NT-Pro-B Natriuret Pep 3830 H Albumin 3.3 L D Globulin 3.6 H 3.4 H Albumin/Globulin Ratio 1.0 L 1.0 L Assessment and Plan *Assessment and plan (1) Pulmonary hypertension: Status: Chronic Category: Medical Code(s): I27.20 - Pulmonary hypertension, unspecified (2) Acute and chronic respiratory failure with hypoxia: Status: Acute Category: Medical Code(s): J96.21 - Acute and chronic respiratory failure with hypoxia Plan Ms. Flannery is a 69 year-old female no significant smoking history, obesity, high risk for sleep apnea recently had a diagnosis of pulmonary hypertension status post right heart cath showed pulmonary hypertension with increased PVR at 12 ureña which also showed to have elevated wedge pressure at 18 initiated on a combination of Tadanafil and Macicentan for her pulmonary arterial hypertension, since then having frequent hospital admissions for worsening respiratory distress hypertension dizziness and volume overload recently discharged from the hospital after volume optimization presented worsening respiratory distress and pulmonary was called for further evaluation and management. Patient CT abdomen findings are also consistent with cirrhosis. Child-Cruz score A. Chest x-ray no dense consolidative/airspace changes. Plan: Follow-up with [facility] Discontinue Macicentan at this point of time given concern for recurrent outpatient failure of volume optimization in the setting of her heart failure preserved ejection fraction. Continue volume optimization and management for other comorbidities contributing to her type III PH. Plan for right heart cath before initiating the patient on likely tadanafil for her PAH Continue oxygen supplementation to maintain O2 saturation goal of 90% and above, needing 1 to 2 L nasal cannula Follow-up with GI as an outpatient basis for her abnormal CT finding consistent with cirrhosis. Patient is due to undergo sleep study as an outpatient basis. Will change in lab polysomnography testing. For now continue oxygen supplementation also at night to maintain O2 saturation goal of 90% and above She continue to receive Eliquis twice daily for her paroxysmal A-fib.
[2024-11-19 09:18] LABS: Anion Gap 6.4 mEq/L (5-15); Carbon Dioxide 42 mmol/L (22.0-30.0)
[2024-11-19] MEDS: APIXABAN 5MG TABLET 5 MG PO ×2 (09:23→20:18)
[2024-11-19] MEDS: FAMOTIDINE 20MG TABLET 20 MG PO (09:23)
[2024-11-19] MEDS: SENNOSIDES 8.6MG/DOCUSATE 50MG TABLET 1 TAB PO (09:23)
--- NOTE | 2024-11-19 09:37 | HMH.PTEV ---
Physical Therapy Evaluation Rehab PT IP Evaluation Start: 11/19/24 08:00 Freq: ONCE Status: Active Protocol: Document 11/19/24 09:22 SAM (Rec: 11/19/24 09:34 SAM [id number]) Subjective/History History History Per H&P: Mrs. Flannery is a 69-year-old female with a medical history significant for severe right heart failure/cor pulmonale from pulmonary hypertension, asplenia, paroxysmal A-fib, CAD, type 2 diabetes, anxiety/depression, GERD who presented [place] [facility] [place] follow-up with pulmonology and cardiology today. Complains of increased swelling in her legs, weight gain over the past 2 weeks, and worsening rhonchorous cough along with increased oxygen requirement (3 L). Patient was discharged from our hospital approximately 2 weeks ago after aggressive diuresis. Plan to continue diuretics and Opsumit for her pulmonary hypertension. Unfortunately had worsening edema and not responding as well as when she was admitted. On follow-up today, increased dyspnea in spite of having her diuretics doubled last week. Denies fever or vomiting. Denies chest pain. Has a little bit of a cough but nonproductive. Leg significantly more swollen and shiny on evaluation. Cardiology requested admission due to worsening volume overload. Subjective Subjective Pt reports she was at [facility] prior to admission. Pt normally able to ambulate short distances with RW. Pt normally lives alone. New diagnosis of No cancer in past 12 months? [facility] How much help from another person do you currently need... Turning from your A little back to your side while in a flat bed without using bedrails? Moving from lying on A little back to sitting on the side of a flat bed without using bedrails? Moving to and from a A little bed to a chair ( including a wheelchair)? Standing up from a A little chair using your arms? (e.g., wheelchair, bedside chair) Walking in hospital A little room? Climbing 3-5 steps A lot with a railing? Mobility Score 17 Mobility Level [facility] Mobility 5 Stand (1 or more minutes) Mobility Calculator Rehab PT IP Eval Objective Appearance Patient Behavior Appropriate,Cooperative Patient Orientation Person,Situation Difficulty following none instructions Speech Pattern Clear Ambulation Patient Able to No Ambulate Balance Ability to Arise Able, uses arms to help Sitting Balance Steady, safe Standing Balance Steady, wide stance Dynamic Sitting Good Balance Ability Dynamic Standing Fair Balance Ability Transfers Bed Transfer Ability Moderate x 1 (50% assist) Rehab PT IP prob,goals,plan Problems Date of Evaluation: 11/19/24 PT IP Problems Bed Mobility,Transfers,Gait,Balance,Self care,Safety Rehab Potential Rehab Potential Good Plan PT Intervention Plan Bed Mobility,Transfers,Gait,Balance,Self care,Safety, Therapeutic Exercise Other Intervention 1-2 times Plan PT Plan Frequency Daily Duration LOS Discharge Goals Bed Transfer Ability Contact Guard/Hand Hold Sit to Stand Chair Contact Guard/Hand Hold Transfer Ability Ambulation Assistive Rolling Walker Device Ambulation Distance 20 (feet) Discharge Plan PT Discharge Plan Pt limited in her mobility by fatigue. Pt not safe to return home alone at this time d/t current mobility level. Pt most appropriate for return to rehab to address deficits and maximize safety with mobility. Pt would benefit from skilled acute care PT while at [facility]. Eval Complexity Eval Charge Codes 13662 - Moderate Complexity PHYSICIAN CERTIFICATION: I certify the specified therapy services for Rica Flannery are required, authorized, and reviewed every 30 days.
--- NOTE | 2024-11-19 09:38 | HMH.OTEV ---
OT Evaluation Rehab OT IP Evaluation Start: 11/19/24 08:00 Freq: ONCE Status: Active Protocol: Document 11/19/24 09:29 DREAD (Rec: 11/19/24 09:38 DREAD [id number]) Rehab OT IP Assessment Subjective History Mrs. Flannery is a 69-year-old female with a medical history significant for severe right heart failure/cor pulmonale from pulmonary hypertension, asplenia, paroxysmal A-fib, CAD, type 2 diabetes, anxiety/ depression, GERD who presented from [facility] [place] follow-up with pulmonology and cardiology today. Complains of increased swelling in her legs, weight gain over the past 2 weeks, and worsening rhonchorous cough along with increased oxygen requirement (3 L). Patient was discharged from our hospital approximately 2 weeks ago after aggressive diuresis. Plan to continue diuretics and Opsumit for her pulmonary hypertension. Unfortunately had worsening edema and not responding as well as when she was admitted. On follow-up today, increased dyspnea in spite of having her diuretics doubled last week. Denies fever or vomiting. Denies chest pain. Has a little bit of a cough but nonproductive. Leg significantly more swollen and shiny on evaluation. Cardiology requested admission due to worsening volume overload. Patient lives in 1 story home with 2 daughters and son in law. Uses a RW to ambulate. S/u for ADLs and fx'l mobility. Subjective I can get up. Instructed Patient on safety awareness to complete bed mobility from supine->sit @ EOB with Mod A. ->STS with usage of RW with CGA. Patient maneuver throughout facility ~10ft. Good safety awareness. Assisted patient to another bed to be transported to [facility] floor. Objective Patient Orientation Person,Place,Name,Age Right Upper WFL Extremity Gross ROM Left Upper Extremity WFL Gross ROM Bed Mobility bed mobility - supine/sit Assist Level Moderate x 1 (50% assist) Transfer Training Sit/Stand Transfer Assist Level Contact Guard/Hand Hold Chair Transfer Contact Guard/Hand Hold Ability Chair Transfer Sit to/from Ambulatory Technique Chair Transfer Rolling Walker Assistive Devices Rehab OT IP prob,goals,plan Problems Date of Evaluation: 11/19/24 OT IP Problems Bed Mobility,Transfers,Balance,Self care,Safety Rehab Potential Rehab Potential Good Equipment Needs Assistive Devices Rolling / Wheeled Walker Plan OT intervention Plan Bed Mobility,Transfers,Balance,Self care,Safety, Therapeutic Exercise Discharge Goals Bed Mobility Ability Assistance x1 Sit to Stand Chair Minimal x 2 (25% assist) Transfer Ability Chair Transfer Minimal x 2 (25% assist) Ability Chair Transfer Sit to/from Ambulatory Technique Chair Transfer Rolling Walker Assistive Devices Discharge Plan OT Discharge Plan Recommend patient to return to SNF after medical d/c. Patient to continue skilled OT Services with focus on improving safety with ADLs and fx'l mobility. Eval Complexity Eval Charge Codes 24445 - Low Complexity PHYSICIAN CERTIFICATION: I certify the specified therapy services for Rica Flannery are required, authorized, and reviewed every 30 days.
--- NOTE | 2024-11-19 09:49 | EXP.ACUTE.PN ---
Subjective *Date: 11/19/24 *Time: 09:49 Interval history: Stay on 2 L. Denies chest pain or shortness of breath. Diuresing well. -2 L since admission. Tolerating Bumex drip. Still has significant swelling in legs, tender to palpation. Afebrile Medical Exam Vital signs and Labs for Last 24 Hours: Vital Signs Temp Pulse Pulse Resp BP BP Pulse Ox 11/19/24 06:30 76 17 96 11/19/24 06:00 74 16 132/77 93 L 11/19/24 05:00 11/19/24 04:00 98.4 F 73 16 123/61 95 11/19/24 04:00 78 11/19/24 03:00 11/19/24 02:00 11/19/24 02:00 84 16 137/56 L 94 L 11/19/24 01:00 11/19/24 00:00 78 11/19/24 00:00 98.5 F 81 19 128/66 96 11/18/24 23:00 11/18/24 22:00 87 14 127/68 94 L 11/18/24 21:00 11/18/24 20:00 80 11/18/24 20:00 77 92 L 11/18/24 18:43 11/18/24 17:00 11/18/24 16:00 98.3 F 74 16 124/76 91 L 11/18/24 16:00 78 11/18/24 15:43 66 11/18/24 15:28 92 L O2 Del Method O2 Flow Rate 11/19/24 06:30 Nasal Cannula 2 11/19/24 06:00 Nasal Cannula 2 11/19/24 05:00 Nasal Cannula 2 11/19/24 04:00 Nasal Cannula 2 11/19/24 04:00 11/19/24 03:00 Nasal Cannula 2 11/19/24 02:00 Nasal Cannula 2 11/19/24 02:00 Nasal Cannula 2 11/19/24 01:00 Nasal Cannula 2 11/19/24 00:00 11/19/24 00:00 Nasal Cannula 2 11/18/24 23:00 Nasal Cannula 2 11/18/24 22:00 Nasal Cannula 2 11/18/24 21:00 Nasal Cannula 2 11/18/24 20:00 11/18/24 20:00 Nasal Cannula 2 11/18/24 18:43 Nasal Cannula 2 11/18/24 17:00 Nasal Cannula 2 11/18/24 16:00 Nasal Cannula 2 11/18/24 16:00 11/18/24 15:43 11/18/24 15:28 Nasal Cannula 2 Intake and Output 11/18/24 11/19/24 11/19/24 23:59 07:59 15:59 Intake Total 240 / 240 81.333 / 81.333 Output Total 1151 / 1601 1350 / 1350 Balance -911 / -1361 -1268.667 / -1268.667 Intake: Intake, Oral Amount 240 / 240 Intake, Total IV Amount 81.333 / 81.333 Bumetanide 10 mg In 0.9 % 81.333 / 81.333 Sodium Chloride 60 ml @ 10 mls/ hr IV .Q10H [facility] Rx#:[id number] Output: Output, Urine Amount 1151 / 1151 450 / 450 Output, Urine Amount (Catheter) 900 / 900 Milligan 900 / 900 Other: Number of Unmeasured Voids 0 0 Weight 117 kg Patient Weight 11/19/24 23:59 Weight 117 kg Laboratory Results - last 24 hr 11/18/24 15:52: WBC 11.4 H, RBC 3.66 L, Hgb 8.8 L, Hct 30.4 L, MCV 83.1, MCH 24.0 L, MCHC 28.9 L, RDW 26.7 H*, Plt Count 417, MPV 10.3, Neut % (Auto) 66.2, Lymph % (Auto) 12.2, [place] % (Auto) 13.6 H, Eos % (Auto) 6.6, Baso % (Auto) 1.0, Neut # (Auto) 7.6, Lymph # (Auto) 1.4, [place] # (Auto) 1.6 H, Eos # (Auto) 0.8 H, Baso # (Auto) 0.1, Total Counted 100, Neutrophils % (Manual) 67, Lymphocytes % (Manual) 14, Monocytes % (Manual) 13 H, Eosinophils % (Manual) 5 H, Basophils % (Manual) 1.0, Platelet Estimate Slight increase, Giant Platelets 1+, Polychromasia 1+, Hypochromasia 1+, Poikilocytosis 1+, Anisocytosis 1+, Microcytosis 1+, Macrocytosis 1+, Target Cells 1+, Tear Drop Cells 1+, [place] Cells 1+, Sodium 137, Potassium 3.3 L, Chloride 89 L, Carbon Dioxide 39 H, Anion Gap 12.3, BUN 18 H, Creatinine 1.00, Estimated Creat Clear 45, Estimated GFR 55 L, Est GFR ( Amer) 66, Glucose 109 H, Calcium 9.1, Magnesium 2.0, Total Bilirubin 0.9, AST 23, ALT 13, Alkaline Phosphatase 208 H, Troponin I 0.02, NT-Pro-B Natriuret Pep 3830 H, Total Protein 7.3, Albumin 3.7, Globulin 3.6 H, Albumin/Globulin Ratio 1.0 L 11/19/24 05:33: WBC 9.6, RBC 3.46 L, Hgb 8.3 L, Hct 28.6 L, MCV 82.7, MCH 24.0 L, MCHC 29.0 L, RDW 26.8 H*, Plt Count 386, MPV 10.4, Neut % (Auto) 63.9, Lymph % (Auto) 13.8, [place] % (Auto) 13.5 H, Eos % (Auto) 7.3, Baso % (Auto) 1.1, Neut # (Auto) 6.1, Lymph # (Auto) 1.3, [place] # (Auto) 1.3 H, Eos # (Auto) 0.7 H, Baso # (Auto) 0.1, Sodium 136, Potassium 3.4 L, Chloride 91 L, Carbon Dioxide 42 H*, Anion Gap 6.4, BUN 16, Creatinine 0.90, Estimated Creat Clear 45, Estimated GFR 62, Est GFR ( Amer) 75, Glucose 154 H D, Calcium 8.3 L, Magnesium 1.9, Total Bilirubin 0.7, AST 23, ALT 11 L, Alkaline Phosphatase 175 H, Total Protein 6.7, Albumin 3.3 L D, Globulin 3.4 H, Albumin/Globulin Ratio 1.0 L I & O for Labs for Last 24 Hours: Intake & Output 11/16/24 11/17/24 11/18/24 11/19/24 23:59 23:59 23:59 23:59 Intake Total 240 / 240 81.333 / 81.333 Output Total 1151 / 1601 1350 / 1350 Balance -911 / -1361 -1268.667 / -1268.667 Weight 116.2 kg 117 kg Constitutional: Present mild distress, obese, chronically ill appearing and cooperative Head: Present atraumatic and normocephalic ENT: Present normal exam Neck: Present normal inspection Respiratory: Present rhonchi, distant breath sounds and diminished air movement; Absent accessory muscle use, wheezes or crackles Cardiac: Present Reg Rate and Rhythm and Audible Murmur Comment:: Frequent PVCs GI: Present soft and normal bowel sounds; Absent distention or tenderness Extremities: Present normal inspection, full ROM and edema (Bilateral stasis dermatitis; 3+ edema to thighs) Skin: Present intact and wounds; Absent erythema Neuro: Present Grossly Intact, alert, awake, oriented x 3 and moves all extremities Assessment and Plan *Assessment and plan (1) (HFpEF) heart failure with preserved ejection fraction: Status: Acute Qualifiers: Heart failure chronicity: acute on chronic Qualified Code(s): I50.33 - Acute on chronic diastolic (congestive) heart failure Category: Medical Code(s): I50.30 - Unspecified diastolic (congestive) heart failure (2) Cor pulmonale: Status: Acute Category: Medical Code(s): I27.81 - Cor pulmonale (chronic) (3) Primary pulmonary hypertension: Status: Chronic Category: Medical Code(s): I27.0 - Primary pulmonary hypertension (4) Hypertension: Status: Chronic Qualifiers: Hypertension type: primary hypertension Qualified Code(s): I10 - Essential (primary) hypertension Category: Medical Code(s): I10 - Essential (primary) hypertension (5) Asplenia: Status: Chronic Category: Medical Code(s): Q89.01 - Asplenia (congenital) (6) Severe tricuspid regurgitation: Status: Chronic Category: Medical Code(s): I07.1 - Rheumatic tricuspid insufficiency (7) Diabetes mellitus type 2 in obese: Status: Chronic Category: Medical Code(s): E11.69 - Type 2 diabetes mellitus with other specified complication; E66.9 - Obesity, unspecified (8) Obesity: Problem Comment: Class II Status: Chronic Qualifiers: Obesity type: due to excess calories Obesity classification: adult class 3 (BMI >= 40) Body mass index: BMI 40.0-44.9 Category: Medical Code(s): E66.9 - Obesity, unspecified (9) Atrial fibrillation: Status: Chronic Qualifiers: Atrial fibrillation type: longstanding persistent Qualified Code(s): I48.11 - Longstanding persistent atrial fibrillation Category: Medical Code(s): I48.91 - Unspecified atrial fibrillation Plan Rica Flannery is a 69-year-old female with a medical history significant for severe right heart failure/cor pulmonale from pulmonary hypertension, asplenia, paroxysmal A-fib, CAD, type 2 diabetes, anxiety/depression, GERD presents with dyspnea for follow-up with cardiology and pulmonology today. During her visit with cardiology, concern for patient's continued oxygen requirement and failure of adjustments to outpatient regimen. Discussed case with cardiology team, request admission for Bumex drip and aggressive diuresis. I agreed to admit to the stepdown unit for further inpatient care. Pulmonology and cardiology consulted to evaluate the patient in the morning. Necessitating inpatient care, risk for decompensation. Anticipate patient will be admitted for at least 2 midnights. Problems addressed as follows: # Pulmonary hypertension with cor pulmonale # Severe RV failure with cor pulmonale # Severe tricuspid regurgitation # Acute on chronic HFpEF #Medication side effect ? Patient has underlying pulmonary hypertension with concomitant cor pulmonale, possibly related to undiagnosed sleep apnea versus history of hypertension. - Reviewed right and left heart cath from [place], Consistent with primary pulmonary hypertension. Right heart failure severe. Pulmonary artery pressures equal to systemic pressures. ? Will discuss initiating tadalafil with pulmonology. Recommend continuing to hold macitentan at this time. - Continue Bumex drip 1 mg/h. Continue Milligan for strict output. -2 L so far. - Repeat CBC, CMP, magnesium ordered for the morning - Goal sats greater than 90%, currently on 2L. - White count remains stable at 9.6, hemoglobin 8.3. Platelets 386. -Will hold on antibiotics at this time. - Sodium 136, potassium 3.4, bicarb 42. Kidney function stable with BUN 16, creatinine 0.9. ? ECHO August 2024 shows markedly elevated RVSP >60 mmHg, severe RV dilatation with failure. EF preserved ? Has underlying pulmonary hypertension, has not been evaluated for sleep apnea or sleep study. Has one scheduled for November 2024. # Iron deficient anemia: Anemia stable with hemoglobin 8.3. transfusion threshold hemoglobin less than 8, repeat CBC, CMP, magnesium ordered for the morning #History of asplenia: Monitor closely for infection. #Physical deconditioning #Depression ? Patient's recently. Had gone to rehab for therapy. Was participating well with PT and OT. Will reconsult PT and OT while admitted. ? Mood stable, continue home duloxetine 60 mg daily, nortriptyline 25 mg daily. - Melatonin 5 mg nightly for sleep Chronic medical problems: #Paroxysmal A-fib: Currently rate controlled. Continue home Eliquis 5 mg twice daily. Hold home metoprolol due to hypotension. #CAD: Continue home aspirin, hold statin with aggressive diuresis. DNR/DNI DVT prophylaxis: Resume home Eliquis Cardiac diet
--- NOTE | 2024-11-19 10:05 | EXP.CARD.CON ---
History of Present Illness History of Present Illness Consult date: 11/19/24 Chief complaint: SOA, edema History of present illness: 69-year-old white female established patient of our office with history of severe end-stage cor pulmonale with primary pulmonary hypertension, severe RV dilation, severe tricuspid regurgitation. Presented to the office yesterday with severe volume overload, 30 pounds over dry weight, short of breath at rest requiring 3 L O2, failing aggressive outpatient oral diuretics so she was admitted for IV diuretics. Patient started on Bumex 1 mg/h overnight and is down 2 L this morning. [facility] Disclaimer: The information contained in this section may have been updated after the patient was seen, as this information can be updated by other users. Medical History Acute on chronic right heart failure Acute and chronic respiratory failure with hypoxia Cor pulmonale Hypertension Abnormal abdominal CT scan Peripheral arterial disease Primary pulmonary hypertension Type 2 diabetes mellitus with foot ulcer UTI (urinary tract infection) Renal insufficiency Hyperkalemia Hypotension CAD in [place] artery BMI 39.0-39.9,adult Chronic anemia Chronic anticoagulation Coronary artery disease Diabetes HFrEF (heart failure with reduced ejection fraction) Pulmonary hypertension Depression Constipation GERD (gastroesophageal reflux disease) Oxygen dependent Atrial fibrillation Surgical History Status post left heart catheterization Family History Other Alcohol abuse Family history of cancer Heart attack Social History Smoking Status: Never smoker alcohol intake: never current occupational status: unemployed Travel in the last 8 weeks?: None Have you lived/traveled outside [place] in past 30 days?: No Contact w/someone who lives/traveled outside US past 30 days?: No Exposure to someone with infectious disease in past 14 days?: No Do you have a fever (greater than 100.4 F or 38 C)?: No Have you tested positive for COVID-19?: No Exposed to someone with COVID-19 in past 14 days?: No Do you have a sore throat?: No Do you have a cough?: No Do you have any weakness?: No Are you experiencing any nausea/vomitting?: No Do you have any diarrhea?: No Are you experiencing any unusual bleeding?: No Do you have any muscle aches/pain?: No Do you have any abdominal pain?: No Are you experiencing loss of taste or smell?: No Review of Systems Constitutional Constitutional: Reports fatigue and Reports weakness Eyes Eyes: Denies loss of vision ENT Ears, Nose, Mouth, and Throat: Denies hearing loss and Denies vertigo *Cardiovascular Cardiovascular: Denies chest pain, Reports dyspnea, Reports leg edema and Denies syncope *Respiratory Respiratory: Denies cough and Reports dyspnea *Gastrointestinal Gastrointestinal: Denies change in stool character, Denies nausea and Denies vomiting *Musculoskeletal Musculoskeletal: Denies muscle weakness Integumentary/Breasts Skin/Breast: Denies changing lesions *Neurologic Neurologic: Denies loss of vision, Denies syncope, Denies vertigo and Reports weakness Endocrine Endocrine: Reports fatigue Exam Data for Last 24 hours Vital signs and Labs for Last 24 Hours: Temp Pulse Resp BP Pulse Ox O2 Del Method O2 Flow Rate 98.4 F 76 17 132/77 96 Nasal Cannula 2 11/19/24 04:00 11/19/24 06:30 11/19/24 06:30 11/19/24 06:00 11/19/24 06:30 11/19/24 06:30 11/19/24 06:30 Laboratory Results - last 24 hr 11/18/24 15:52: WBC 11.4 H, RBC 3.66 L, Hgb 8.8 L, Hct 30.4 L, MCV 83.1, MCH 24.0 L, MCHC 28.9 L, RDW 26.7 H*, Plt Count 417, MPV 10.3, Neut % (Auto) 66.2, Lymph % (Auto) 12.2, [place] % (Auto) 13.6 H, Eos % (Auto) 6.6, Baso % (Auto) 1.0, Neut # (Auto) 7.6, Lymph # (Auto) 1.4, [place] # (Auto) 1.6 H, Eos # (Auto) 0.8 H, Baso # (Auto) 0.1, Total Counted 100, Neutrophils % (Manual) 67, Lymphocytes % (Manual) 14, Monocytes % (Manual) 13 H, Eosinophils % (Manual) 5 H, Basophils % (Manual) 1.0, Platelet Estimate Slight increase, Giant Platelets 1+, Polychromasia 1+, Hypochromasia 1+, Poikilocytosis 1+, Anisocytosis 1+, Microcytosis 1+, Macrocytosis 1+, Target Cells 1+, Tear Drop Cells 1+, [place] Cells 1+, Sodium 137, Potassium 3.3 L, Chloride 89 L, Carbon Dioxide 39 H, Anion Gap 12.3, BUN 18 H, Creatinine 1.00, Estimated Creat Clear 45, Estimated GFR 55 L, Est GFR ( Amer) 66, Glucose 109 H, Calcium 9.1, Magnesium 2.0, Total Bilirubin 0.9, AST 23, ALT 13, Alkaline Phosphatase 208 H, Troponin I 0.02, NT-Pro-B Natriuret Pep 3830 H, Total Protein 7.3, Albumin 3.7, Globulin 3.6 H, Albumin/Globulin Ratio 1.0 L 11/19/24 05:33: WBC 9.6, RBC 3.46 L, Hgb 8.3 L, Hct 28.6 L, MCV 82.7, MCH 24.0 L, MCHC 29.0 L, RDW 26.8 H*, Plt Count 386, MPV 10.4, Neut % (Auto) 63.9, Lymph % (Auto) 13.8, [place] % (Auto) 13.5 H, Eos % (Auto) 7.3, Baso % (Auto) 1.1, Neut # (Auto) 6.1, Lymph # (Auto) 1.3, [place] # (Auto) 1.3 H, Eos # (Auto) 0.7 H, Baso # (Auto) 0.1, Sodium 136, Potassium 3.4 L, Chloride 91 L, Carbon Dioxide 42 H*, Anion Gap 6.4, BUN 16, Creatinine 0.90, Estimated Creat Clear 45, Estimated GFR 62, Est GFR ( Amer) 75, Glucose 154 H D, Calcium 8.3 L, Magnesium 1.9, Total Bilirubin 0.7, AST 23, ALT 11 L, Alkaline Phosphatase 175 H, Total Protein 6.7, Albumin 3.3 L D, Globulin 3.4 H, Albumin/Globulin Ratio 1.0 L I & O for Last 24 hours: Intake & Output 11/16/24 11/17/24 11/18/24 11/19/24 23:59 23:59 23:59 23:59 Intake Total 240 / 240 81.333 / 81.333 Output Total 1151 / 1601 1350 / 1350 Balance -911 / -1361 -1268.667 / -1268.667 Weight 256 lb 2.834 oz 257 lb 15.053 oz Meds Home Medications and Allergies Home Medications ?Medication ?Instructions ?Recorded ?Confirmed ?Type acetaminophen 500 mg tablet 1,000 mg PO Q6H PRN Mild Pain 05/09/24 11/18/24 History (Tylenol Extra Strength) (Scale Score 1-4) zolpidem 5 mg tablet (Ambien) 5 mg PO HS PRN sleep #30 tabs 08/26/24 11/18/24 Rx nystatin 100,000 unit/gram topical 1 applic topical BID PRN 09/30/24 11/18/24 History powder Excoriation apixaban 5 mg tablet (Eliquis) 5 mg PO BID 10/17/24 11/18/24 History duloxetine 60 mg capsule,delayed 60 mg PO DAILY 10/17/24 11/18/24 History release famotidine 20 mg tablet 20 mg PO DAILY 10/17/24 11/18/24 History melatonin 5 mg tablet 5 mg PO HS 10/17/24 11/18/24 History nortriptyline 25 mg capsule 25 mg PO HS 10/17/24 11/18/24 History sennosides 8.6 mg-docusate sodium 1 tab PO DAILY 10/17/24 11/18/24 History 50 mg tablet (Senexon-S) ferrous sulfate 325 mg (65 mg 325 mg PO Q48H 10/18/24 11/18/24 History iron) tablet (Feosol) polyethylene glycol 3350 17 gram 17 g PO DAILYP PRN Constipation 30 10/23/24 11/18/24 Rx oral powder packet (HealthyLax) days #30 ea ipratropium 0.5 mg-albuterol 3 mg 1 ml inhalation Q6HP PRN soa 11/05/24 11/18/24 History (2.5 mg base)/3 mL nebulization soln ondansetron HCl 8 mg tablet 8 mg PO Q8HP PRN Nausea And 11/05/24 11/19/24 History Vomiting macitentan 10 mg tablet (Opsumit) 10 mg PO DAILY 30 days #30 tabs 11/08/24 11/18/24 Rx bumetanide 1 mg tablet 2 mg (2 x 1 mg) PO BID #60 tabs 11/12/24 11/18/24 Rx ascorbic acid (vitamin C) 500 mg 500 mg PO DAILY 11/18/24 11/18/24 History capsule New Prescriptions to Start Prescriptions: Allergies Allergy/AdvReac Type Severity Reaction Status Date / Time levofloxacin Allergy hives Verified 11/18/24 14:17 meperidine Allergy hives Verified 11/18/24 14:17 Assessment and Plan *Assessment and plan (1) Acute on chronic right heart failure: Status: Acute Category: Medical Code(s): I50.813 - Acute on chronic right heart failure (2) Severe tricuspid regurgitation: Status: Chronic Category: Medical Code(s): I07.1 - Rheumatic tricuspid insufficiency (3) Acute and chronic respiratory failure with hypoxia: Status: Acute Category: Medical Code(s): J96.21 - Acute and chronic respiratory failure with hypoxia Plan Acute on Chronic Right Heart Failure - severe primary PHtn, Severe RV Dilation, Severe TR - she is up 30lbs from dry weight this summer, always responds well to IV diuretics but thus far has had trouble continuing diuresis with oral meds post discharge resulting in numerous readmissions - recommend she stay on IV diuretics until she is back at dry weight then consider [facility] or [facility] outpatient for PAP monitoring and early intervention to avoid readmission - pt saw [facility] for RHC/LHC this summer. not a candidate for tri-clip. historically not tolerating PHtn meds due to hypotension - Plan: Continue IV diuresis of 1mg/hr until dry weight. Replete electrolytes as needed. Consider pre-discharge RHC for baseline PAP PAF - rate controlled here - cont Eliquis - historically has not required antiarrhthmics and BP usually low so not on AV blockers for now Morbid Obesity, BMI 44 - baseline weight 220 per pt/family Complex patient, expect extended admission to get to dry weight. Currently stable and already seeing symptomatic improvement. Plan for RHC to assess PAP Sunday.
[2024-11-19] MEDS: POTASSIUM CHLORIDE 20MEQ TAB 40 MEQ PO ×2 (11:08→15:18)
[2024-11-19 13:33] LABS: ABG HCO3 40.4 mmhg (22.0-26.0); ABG PH 7.49 mmol/L (7.35-7.45); ABG PO2 64.7 mmhg (80-100); ABG TCO2 42.1 mmhg (23-27)
[2024-11-19 13:34] LABS: ABG PCO2 53.9 mmhg (35.0-45.0); Source Right Brachial
[2024-11-19] MEDS: IPRATROPIUM/ALBUTEROL 3 ML NEB IH (14:02)
--- NOTE | 2024-11-19 17:54 | PC.NURSE ---
PT IS SITTING UP IN THE CHAIR. ALERT AND ORIENTED X4. EATING AND DRINKING WELL. AMBULATES TO THE BATHROOM WITH 1 ASSIST AND WALKER. LUNG SOUNDS DIMINISHED WITH SCATTERED WHEEZES. O2 SATURATION HAS MAINTAINED 93-96% ON 2 L NC. ROOM AIR SATURATION THIS MORNING WAS 78%. 3+ PITTING GENERALIZED EDEMA NOTED. DIURESING WELL. WILL CONTINUE TO MONITOR.
[2024-11-19] MEDS: MELATONIN 5MG TABLET 5 MG PO (20:18)
[2024-11-20] VITALS: BP 127/56; PULSE 70; PULSE 84; RESP 16; TEMP 37.1; O2SAT 91
[2024-11-20 04:00] VITALS: BP 105/57; PULSE 75; PULSE 80; RESP 18; TEMP 36.6; O2SAT 95; BMI 43.4
--- NOTE | 2024-11-20 05:22 | PC.NURSE ---
Pt is alert and oriented X4, Pt is on 2L NC, Pt has edema David [place] Ext of 3+, Pt is on a Cardiac diet. Pt has a Milligan for accurate I and O. No complainients or pain over night. ABRAHAM SOLIS RN
[2024-11-20 08:00] VITALS: BP 115/60; PULSE 80; PULSE 81; RESP 18; TEMP 36.8; O2SAT 97
[2024-11-20] MEDS: BUMETANIDE 10 MG in 0.9 % SODIUM CHLORIDE 60 ML IV ×2 (08:27→16:44)
[2024-11-20] MEDS: FAMOTIDINE 20MG TABLET 20 MG PO (08:57)
[2024-11-20] MEDS: APIXABAN 5MG TABLET 5 MG PO ×2 (08:57→20:03)
[2024-11-20] MEDS: SENNOSIDES 8.6MG/DOCUSATE 50MG TABLET 1 TAB PO (08:57)
--- NOTE | 2024-11-20 09:17 | P.PN_ITS ---
Subjective *Date: 11/20/24 *Time: 14:28 Interval history: No acute respiratory vents overnight. Pulmonology Exam Inpatient Vital signs and Labs for Last 24 Hours: Temp Pulse Resp BP Pulse Ox O2 Del Method O2 Flow Rate 98.3 F 81 18 115/60 97 Nasal Cannula 2 11/20/24 08:00 11/20/24 08:00 11/20/24 08:00 11/20/24 08:00 11/20/24 08:00 11/20/24 08:00 11/20/24 07:34 Laboratory Results - last 24 hr 11/19/24 05:33: Carbon Dioxide 42 H*, Anion Gap 6.4 11/19/24 13:08: Specimen Source Right brachial, O2 % 1.5lpm, ABG pH 7.49 H, ABG pCO2 53.9 H, ABG pO2 64.7 L, ABG HCO3 40.4 H, ABG Total CO2 42.1 H, ABG O2 Saturation 93, ABG Base Excess 17.1 H, Steve Test Not applicable Temp Pulse Resp BP Pulse Ox O2 Del Method O2 Flow Rate 98.4 F 76 17 132/77 96 Nasal Cannula 2 11/19/24 04:00 11/19/24 06:30 11/19/24 06:30 11/19/24 06:00 11/19/24 06:30 11/19/24 06:30 11/19/24 06:30 Laboratory Results - last 24 hr 11/18/24 15:52: WBC 11.4 H, RBC 3.66 L, Hgb 8.8 L, Hct 30.4 L, MCV 83.1, MCH 24.0 L, MCHC 28.9 L, RDW 26.7 H*, Plt Count 417, MPV 10.3, Neut % (Auto) 66.2, Lymph % (Auto) 12.2, [place] % (Auto) 13.6 H, Eos % (Auto) 6.6, Baso % (Auto) 1.0, Neut # (Auto) 7.6, Lymph # (Auto) 1.4, [place] # (Auto) 1.6 H, Eos # (Auto) 0.8 H, Baso # (Auto) 0.1, Total Counted 100, Neutrophils % (Manual) 67, Lymphocytes % (Manual) 14, Monocytes % (Manual) 13 H, Eosinophils % (Manual) 5 H, Basophils % (Manual) 1.0, Platelet Estimate Slight increase, Giant Platelets 1+, Polychromasia 1+, Hypochromasia 1+, Poikilocytosis 1+, Anisocytosis 1+, Microcytosis 1+, Macrocytosis 1+, Target Cells 1+, Tear Drop Cells 1+, Filiberto Cells 1+, Sodium 137, Potassium 3.3 L, Chloride 89 L, Carbon Dioxide 39 H, Anion Gap 12.3, BUN 18 H, Creatinine 1.00, Estimated Creat Clear 45, Estimated GFR 55 L, Est GFR ( Amer) 66, Glucose 109 H, Calcium 9.1, Magnesium 2.0, Total Bilirubin 0.9, AST 23, ALT 13, Alkaline Phosphatase 208 H, Troponin I 0.02, NT-Pro-B Natriuret Pep 3830 H, Total Protein 7.3, Albumin 3.7, Globulin 3.6 H, Albumin/Globulin Ratio 1.0 L 11/19/24 05:33: WBC 9.6, RBC 3.46 L, Hgb 8.3 L, Hct 28.6 L, MCV 82.7, MCH 24.0 L , MCHC 29.0 L, RDW 26.8 H*, Plt Count 386, MPV 10.4, Neut % (Auto) 63.9, Lymph % (Auto) 13.8, [place] % (Auto) 13.5 H, Eos % (Auto) 7.3, Baso % (Auto) 1.1, Neut # (Auto) 6.1, Lymph # (Auto) 1.3, [place] # (Auto) 1.3 H, Eos # (Auto) 0.7 H, Baso # (Auto) 0.1, Sodium 136, Potassium 3.4 L, Chloride 91 L, BUN 16, Creatinine 0.90, Estimated Creat Clear 45, Estimated GFR 62, Est GFR ( Amer) 75, Glucose 154 H D, Calcium 8.3 L, Magnesium 1.9, Total Bilirubin 0.7, AST 23, ALT 11 L, Alkaline Phosphatase 175 H, Total Protein 6.7, Albumin 3.3 L D, Globulin 3.4 H, Albumin/Globulin Ratio 1.0 L I & O for Labs for Last 24 Hours: Intake & Output 09/29/11/18/24 11/19/24 11/20/24 23:59 23:59 23:59 23:59 Intake Total 240 / 240 1060.500 / 1180.500 220 / 220 Output Total 1151 / 1601 4225 / 4625 2325 / 2325 Balance -911 / -1361 -3164.500 / -3444.500 -2105 / -2105 Weight 256 lb 2.834 oz 257 lb 15.053 oz 254 lb 1.6 oz Intake & Output 11/16/24 11/17/24 11/18/24 11/19/24 23:59 23:59 23:59 23:59 Intake Total 240 / 240 81.333 / 81.333 Output Total 1151 / 1601 1350 / 1350 Balance -911 / -1361 -1268.667 / -1268.667 Weight 256 lb 2.834 oz 257 lb 15.053 oz Constitutional: Present moderate distress Head: Present normocephalic and atraumatic ENT: Present normal exam, normal oropharynx and mucous membranes moist Neck: Present normal inspection and full ROM Respiratory: Present respiratory distress, diminished air movement and able to speak in complete sentences; Absent prolonged expiratory phase, rhonchi or wheezes Cardiac: Present S1/S2, Tachycardia and radial pulses present GI: Present soft and distention; Absent tenderness or guarding Rectal (female): Present deferred (female): Present deferred Skin: Present intact; Absent cyanosis or jaundice Neuro: Present alert, awake and oriented x 3 Extremities: Present normal inspection and edema; Absent clubbing or cyanosis Psychiatric: Present normal affect and cooperative Assessment and Plan *Assessment and plan (1) Pulmonary hypertension: Status: Chronic Category: Medical Code(s): I27.20 - Pulmonary hypertension, unspecified (2) Acute and chronic respiratory failure with hypoxia: Status: Acute Category: Medical Code(s): J96.21 - Acute and chronic respiratory failure with hypoxia Plan Ms. Flannery is a 69 year-old female no significant smoking history, obesity, high risk for sleep apnea recently had a diagnosis of pulmonary hypertension status post right heart cath showed pulmonary hypertension with increased PVR at 12 ureña which also showed to have elevated wedge pressure at 18 initiated on a combination of Tadanafil and Macicentan for her pulmonary arterial hypertension, since then having frequent hospital admissions for worsening respiratory distress hypertension dizziness and volume overload recently discharged from the hospital after volume optimization presented worsening respiratory distress and pulmonary was called for further evaluation and management. Patient CT abdomen findings are also consistent with cirrhosis. Child-Cruz score A. Chest x-ray no dense consolidative/airspace changes. Interval update: No No acute respiratory vents overnight. Daytime blood gas consistent with obesity hypoventilation syndrome. Cannot completely rule out concomitant sleep apnea given her morbid obesity. Continue to hold macicentan and Tadanafil given her recurrent admissions for volume overload hypotensive episodes. Continue to receive diuretics. Net negative volume status. Plan: Continue volume optimization and management for other comorbidities contributing to her type III PH. Plan for right heart cath before initiating the patient on likely tadanafil for her PAH Continue oxygen supplementation to maintain O2 saturation goal of 90% and above, needing 1 to 2 L nasal cannula Follow-up with GI as an outpatient basis for her abnormal CT finding consistent with cirrhosis. Patient is due to undergo sleep study as an outpatient basis. Will change in lab polysomnography testing. For now continue oxygen supplementation also at night to maintain O2 saturation goal of 90% and above She continue to receive Eliquis twice daily for her paroxysmal A-fib.
--- NOTE | 2024-11-20 10:02 | P.PN_ITS ---
Subjective Subjective Date: 11/20/24 Time: 10:02 Interval history: Diuresed a total of 6 L since admission. She is feeling better. Agreeable to right heart cath tomorrow. Pulmonary agreeable to hold Opsumit due to worsening edema. Exam Data for Last 24 hours Vital signs and Labs for Last 24 Hours: Temp Pulse Resp BP Pulse Ox O2 Del Method O2 Flow Rate 98.3 F 81 18 115/60 97 Nasal Cannula 2 11/20/24 08:00 11/20/24 08:00 11/20/24 08:00 11/20/24 08:00 11/20/24 08:00 11/20/24 08:00 11/20/24 07:34 Laboratory Results - last 24 hr 11/19/24 13:08: Specimen Source Right brachial, O2 % 1.5lpm, ABG pH 7.49 H, ABG pCO2 53.9 H, ABG pO2 64.7 L, ABG HCO3 40.4 H, ABG Total CO2 42.1 H, ABG O2 Saturation 93, ABG Base Excess 17.1 H, Steve Test Not applicable I & O for Last 24 hours: Intake & Output 11/17/24 11/18/24 11/19/24 11/20/24 23:59 23:59 23:59 23:59 Intake Total 240 / 240 1060.500 / 1180.500 660 / 660 Output Total 1151 / 1601 4225 / 4625 2325 / 2325 Balance -911 / -1361 -3164.500 / -3444.500 -1665 / -1665 Weight 256 lb 2.834 oz 257 lb 15.053 oz 254 lb 1.6 oz Constitutional Constitutional: no acute distress and cooperative *Routine HEENT Exam Eye: Present PERRL *Routine Respiratory Exam Respiratory: Present CTA bilaterally; Absent accessory muscle use, wheezes or crackles *Routine Cardiovascular Exam Cardiovascular: Present RRR, Normal S1 and Normal S2; Absent murmur, gallop or rubs *Routine Abdominal Exam Abdominal: Present soft; Absent tenderness *Routine Extremities Exam Extremities: Present pulses intact; Absent cyanosis or edema Comments: Edema improving *Routine Skin Exam Skin: Present intact; Absent erythema or wounds *Routine Neurological Exam Neurological: Present alert and oriented X3 Routine Psychiatric Exam Psychiatric: Present cooperative Progress Note: A&P Assessment and plan (1) Pulmonary hypertension: Status: Chronic (2) Acute and chronic respiratory failure with hypoxia: Status: Acute Assessment and Plan Assessment and Plan for All Diagnoses:: Acute on Chronic Right Heart Failure - severe primary PHtn, Severe RV Dilation, Severe TR - she is up 30lbs from dry weight this summer, always responds well to IV diuretics but thus far has had trouble continuing diuresis with oral meds post discharge resulting in numerous readmissions - recommend she stay on IV diuretics until she is back at dry weight then consider Cordella or Cardiomems outpatient for PAP monitoring and early intervention to avoid readmission - pt saw [facility] for RHC/LHC this summer. not a candidate for tri-clip. histo rically not tolerating PHtn meds due to hypotension - Plan: Continue IV diuresis of 1mg/hr until dry weight. Replete electrolytes as needed. Consider pre-discharge RHC for baseline PAP - 11/20: Patient has diuresed 6 L. Electrolytes stable, continue Bumex at 1 mg/hr. RHC tomorrow for PAP. Consider Cordella implant later. Hold Opsimet due to documented issues with worsening edema in some patients. Consider PDE5 resumption later. PAF - rate controlled here - cont Eliquis - historically has not required antiarrhthmics and BP usually low so not on AV blockers for now Morbid Obesity, BMI 44 - baseline weight 220 per pt/family - continue diuresis. CV Plan: Continue Bumex drip. RHC tomorrow. Would like to diurese her close to dry weight which is reportedly around 220lbs prior to discharge. Continue weaning O2. If diuresed over weekend she needs office f/u with us in 1 week. Ok to stay through weekend if still diuresing well.
[2024-11-20 11:08] LABS: Hematocrit 29.7 % (37.0-47.0); Hemoglobin 8.6 g/dL (12.2-16.2); Immature Granulocytes % 0.5 %; Mean Corpuscular HGB Conc 29.0 g/dL (31.8-35.4); Mean Corpuscular Hemoglobin 24.3 pg (27.0-31.2); Mean Corpuscular Volume 83.9 fl (81-99); Nucleated Red Blood Cells % 0 %; Platelet Count 438 K/mm3 (142-424); Red Blood Count 3.54 M/mm3 (4.20-5.40); Red Cell Distribution Width-SD 78.2 fL; White Blood Count 10.7 K/mm3 (4.8-10.8)
--- NOTE | 2024-11-20 11:21 | P.PN_ITS ---
Subjective *Date: 11/20/24 *Time: 11:42 Interval history: Still requiring 2 L oxygen though O2 sats are better at 97%. Having good urine output. -4 L in the past 24 hours. Down over 6 L since admission. Working with therapy on rounds. Denies chest pain, nausea, vomiting, shortness of breath. Legs appear to be showing some improvement in their swelling Medical Exam Vital signs and Labs for Last 24 Hours: Vital Signs Temp Pulse Pulse Resp BP Pulse Ox O2 Del Method 11/20/24 10:02 Nasal Cannula 11/20/24 08:00 80 11/20/24 08:00 98.3 F 81 18 115/60 97 Nasal Cannula 11/20/24 07:34 Nasal Cannula 11/20/24 07:34 Nasal Cannula 11/20/24 05:00 Nasal Cannula 11/20/24 04:00 80 11/20/24 04:00 97.9 F 75 18 105/57 L 95 Nasal Cannula 11/20/24 03:00 Nasal Cannula 11/20/24 01:00 Nasal Cannula 11/20/24 00:00 70 11/20/24 00:00 98.7 F 84 16 127/56 L 91 L Nasal Cannula 11/19/24 23:00 Nasal Cannula 11/19/24 21:00 Nasal Cannula 11/19/24 20:00 80 11/19/24 20:00 Nasal Cannula 11/19/24 20:00 98.9 F 85 16 105/54 L 100 Nasal Cannula 11/19/24 18:30 Nasal Cannula 11/19/24 17:00 Nasal Cannula 11/19/24 16:00 90 11/19/24 16:00 98.6 F 86 16 118/65 95 Nasal Cannula 11/19/24 15:00 Nasal Cannula 11/19/24 14:03 80 11/19/24 14:03 80 11/19/24 12:54 Nasal Cannula 11/19/24 12:00 80 11/19/24 11:48 98.5 F 73 18 119/56 L 97 Nasal Cannula O2 Flow Rate 11/20/24 10:02 2 11/20/24 08:00 11/20/24 08:00 11/20/24 07:34 2 11/20/24 07:34 2 11/20/24 05:00 2 11/20/24 04:00 11/20/24 04:00 2 11/20/24 03:00 2 11/20/24 01:00 2 11/20/24 00:00 11/20/24 00:00 2 11/19/24 23:00 2 11/19/24 21:00 2 11/19/24 20:00 11/19/24 20:00 2 11/19/24 20:00 2 11/19/24 18:30 2 11/19/24 17:00 2 11/19/24 16:00 11/19/24 16:00 2 11/19/24 15:00 2 11/19/24 14:03 11/19/24 14:03 11/19/24 12:54 2 11/19/24 12:00 11/19/24 11:48 2 Intake and Output 11/19/24 11/20/24 11/20/24 23:59 07:59 15:59 Intake Total 340 / 1180.500 220 / 660 440 / 660 Output Total 1350 / 4625 1350 / 2325 975 / 2325 Balance -1010 / -3444.500 -1130 / -1665 -535 / -1665 Intake: Intake, Oral Amount 240 / 900 120 / 560 440 / 560 Intake, Total IV Amount 100 / 280.500 100 / 100 Bumetanide 10 mg In 0.9 % 100 / 280.500 100 / 100 Sodium Chloride 60 ml @ 10 mls/ hr IV .Q10H [facility] Rx#:[id number] Output: Output, Urine Amount 1350 / 3725 1350 / 2325 975 / 2325 Other: Number of Unmeasured Voids 0 0 Weight 115.258 kg Patient Weight 11/20/24 23:59 Weight 115.258 kg Laboratory Results - last 24 hr 11/19/24 13:08: Specimen Source Right brachial, O2 % 1.5lpm, ABG pH 7.49 H, ABG pCO2 53.9 H, ABG pO2 64.7 L, ABG HCO3 40.4 H, ABG Total CO2 42.1 H, ABG O2 Saturation 93, ABG Base Excess 17.1 H, Steve Test Not applicable 11/20/24 10:59: WBC 10.7, RBC 3.54 L, Hgb 8.6 L, Hct 29.7 L, MCV 83.9, MCH 24.3 L, MCHC 29.0 L, RDW 26.3 H*, Plt Count 438 H, MPV 10.6 H, Neut % (Auto) 67.6, Lymph % (Auto) 11.3, [place] % (Auto) 14.3 H, Eos % (Auto) 5.0, Baso % (Auto) 1.3, Neut # (Auto) 7.2, Lymph # (Auto) 1.2, [place] # (Auto) 1.5 H, Eos # (Auto) 0.5 H, Baso # (Auto) 0.1 I & O for Labs for Last 24 Hours: Intake & Output 11/17/24 11/18/24 11/19/24 11/20/24 23:59 23:59 23:59 23:59 Intake Total 240 / 240 1060.500 / 1180.500 660 / 660 Output Total 1151 / 1601 4225 / 4625 2325 / 2325 Balance -911 / -1361 -3164.500 / -3444.500 -1665 / -1665 Weight 116.2 kg 117 kg 115.258 kg Constitutional: Present mild distress, obese, chronically ill appearing and cooperative Head: Present atraumatic and normocephalic ENT: Present normal exam Neck: Present normal inspection Respiratory: Present rhonchi, distant breath sounds and diminished air movement; Absent accessory muscle use, wheezes or crackles Cardiac: Present Reg Rate and Rhythm and Audible Murmur GI: Present soft and normal bowel sounds; Absent distention or tenderness Extremities: Present normal inspection, full ROM and edema (Bilateral stasis dermatitis; 3+ edema in lower extremity distal to knee, improving edema in thigh highs) Skin: Present intact and wounds; Absent erythema Neuro: Present Grossly Intact, alert, awake, oriented x 3 and moves all extremities Assessment and Plan *Assessment and plan (1) (HFpEF) heart failure with preserved ejection fraction: Status: Acute Qualifiers: Heart failure chronicity: acute on chronic Qualified Code(s): I50.33 - Acute on chronic diastolic (congestive) heart failure Category: Medical Code(s): I50.30 - Unspecified diastolic (congestive) heart failure (2) Cor pulmonale: Status: Acute Category: Medical Code(s): I27.81 - Cor pulmonale (chronic) (3) Primary pulmonary hypertension: Status: Chronic Category: Medical Code(s): I27.0 - Primary pulmonary hypertension (4) Hypertension: Status: Chronic Qualifiers: Hypertension type: primary hypertension Qualified Code(s): I10 - Essential (primary) hypertension Category: Medical Code(s): I10 - Essential (primary) hypertension (5) Asplenia: Status: Chronic Category: Medical Code(s): Q89.01 - Asplenia (congenital) (6) Severe tricuspid regurgitation: Status: Chronic Category: Medical Code(s): I07.1 - Rheumatic tricuspid insufficiency (7) Diabetes mellitus type 2 in obese: Status: Chronic Category: Medical Code(s): E11.69 - Type 2 diabetes mellitus with other specified complication; E66.9 - Obesity, unspecified (8) Obesity: Problem Comment: Class II Status: Chronic Qualifiers: Obesity type: due to excess calories Obesity classification: adult class 3 (BMI >= 40) Body mass index: BMI 40.0-44.9 Category: Medical Code(s): E66.9 - Obesity, unspecified (9) Atrial fibrillation: Status: Chronic Qualifiers: Atrial fibrillation type: longstanding persistent Qualified Code(s): I48.11 - Longstanding persistent atrial fibrillation Category: Medical Code(s): I48.91 - Unspecified atrial fibrillation Plan Rica Flannery is a 69-year-old female with a medical history significant for severe right heart failure/cor pulmonale from pulmonary hypertension, asplenia, paroxysmal A-fib, CAD, type 2 diabetes, anxiety/depression, GERD presents with dyspnea for follow-up with cardiology and pulmonology today. During her visit with cardiology, concern for patient's continued oxygen requirement and failure of adjustments to outpatient regimen. Discussed case with cardiology team, request admission for Bumex drip and aggressive diuresis. I agreed to admit to the stepdown unit for further inpatient care. Pulmonology and cardiology continue to assist with care. Showing improvement. Diuresing well. Downgraded to [facility]. Continues to work in patient management. Problems addressed as follows: # Pulmonary hypertension with cor pulmonale # Severe RV failure with cor pulmonale # Severe tricuspid regurgitation # Acute on chronic HFpEF #Medication side effect ? Patient has underlying pulmonary hypertension with concomitant cor pulmonale, possibly related to undiagnosed sleep apnea versus history of hypertension. - Reviewed right and left heart cath from [facility], Consistent with primary pulmonary hypertension. Right heart failure severe. Pulmonary artery pressures equal to systemic pressures. ? Discussed case with cardiology, recommend continuing diuresis. Will continue Bumex drip until we see a bump in kidney function. Will transition to oral Bumex prior to discharge -Planning to repeat right heart cath prior to resuming tadalafil/sildenafil - After discussion with pulmonology, agree with holding macitentan - Continue Bumex drip 1 mg/h. Continue [place] for strict output. -6 L so far. - Repeat CBC, CMP, magnesium ordered for the morning - Goal sats greater than 90%, currently on 1-2L. -White count remains stable at 10.7, hemoglobin 8.6. -. # Iron deficient anemia: Anemia with marginal improvement to 8.6, platelets 438. No active signs of bleeding. transfusion threshold hemoglobin less than 8, repeat CBC, CMP, magnesium ordered for the morning #History of asplenia: Monitor closely for infection. Cirrhosis: Diagnosed on imaging during a previous visit, needs follow-up with GI as an outpatient. #Physical deconditioning #Depression ? Patient's recently. Had gone to rehab for therapy. Was participating well with PT and OT. Will reconsult PT and OT while admitted. ? Mood stable, continue home duloxetine 60 mg daily, nortriptyline 25 mg daily. - Melatonin 5 mg nightly for sleep Chronic medical problems: #Paroxysmal A-fib: Currently rate controlled. Continue home Eliquis 5 mg twice daily. Hold home metoprolol due to hypotension. #CAD: Holding aspirin and statin DNR/DNI DVT prophylaxis: Eliquis Cardiac diet
[2024-11-20] MEDS: POLYETHYLENE GLYCOL 3350 17 GM PACKET PO (11:29)
[2024-11-20 11:32] LABS: Alanine Aminotransferase 12 U/L (12-78); Albumin Level 3.3 g/dl (3.5-5.0); Albumin/Globulin Ratio 1.0 (1.1-1.8); Alkaline Phosphatase 156 U/L (38-126); Aspartate Amino Transferase 25 U/L (14-36); Bilirubin,Total 0.8 mg/dl (0.2-1.3); Blood Urea Nitrogen 19 mg/dl (7-17); Calcium 8.4 mg/dl (8.4-10.2); Chloride 90 mmol/L (98-107); Creatinine Clearance Estimated 45 mL/min (50-200); Creatinine,Serum 0.90 mg/dl (0.52-1.04); Estimated Glomerular Filt Rate 62 ml/min (>60); GFR (African American) 75 ML/MIN (>60); Globulin 3.3 g/dL (1.3-3.2); Glucose 146 mg/dl (74-100); Magnesium 1.7 mg/dl (1.6-2.3); Potassium 3.4 mmoL/L (3.5-5.1); Sodium 137 mmol/L (136-145); Total Protein,Serum 6.6 g/dl (6.3-8.2)
[2024-11-20 11:45] LABS: Anion Gap 11.4 mEq/L (5-15); Carbon Dioxide 39 mmol/L (22.0-30.0)
[2024-11-20 12:00] VITALS: BP 105/54; PULSE 80; RESP 18; TEMP 36.8; O2SAT 96
[2024-11-20 15:02] VITALS: BMI 43.4
[2024-11-20 16:00] VITALS: BP 103/45; PULSE 80; PULSE 83; RESP 18; TEMP 36.7; O2SAT 94
--- NOTE | 2024-11-20 17:01 | PC.NURSE ---
VSS, patient remains on 2L NC, respiratory effort appears non labored, lower extremities edematous, significant output today, pt continued on bumex drip at 10ml/hr. cardiology discussed possible right heart cath tomorrow (11/21/2024), no orders to obtain consent have been received at this time.
[2024-11-20 20:00] VITALS: BP 121/51; PULSE 80; PULSE 85; RESP 18; TEMP 37.5; O2SAT 93
[2024-11-20] MEDS: MELATONIN 5MG TABLET 5 MG PO (20:03)
[2024-11-21] VITALS (13 sets, daily range): BP systolic 100–178; BP diastolic 41–72; PULSE 67–85; RESP 14–18; TEMP 36.5–36.9; O2SAT 91–97; BMI 43.6
[2024-11-21] MEDS: BUMETANIDE 10 MG in 0.9 % SODIUM CHLORIDE 60 ML IV ×3 (00:35→21:40)
--- NOTE | 2024-11-21 03:57 | PC.NURSE ---
Pt AOx4. Currently resting in bed with eyes closed. Respirations even and unlabored. Bed is low, locked, and call light is in reach.
[2024-11-21 06:06] LABS: Hematocrit 27.9 % (37.0-47.0); Hemoglobin 8.2 g/dL (12.2-16.2); Immature Granulocytes % 0.4 %; Mean Corpuscular HGB Conc 29.4 g/dL (31.8-35.4); Mean Corpuscular Hemoglobin 24.1 pg (27.0-31.2); Mean Corpuscular Volume 82.1 fl (81-99); Nucleated Red Blood Cells % 0 %; Platelet Count 468 K/mm3 (142-424); Red Blood Count 3.40 M/mm3 (4.20-5.40); Red Cell Distribution Width-SD 75.4 fL; White Blood Count 11.1 K/mm3 (4.8-10.8)
[2024-11-21 06:15] LABS: Albumin Level 3.1 g/dl (3.5-5.0); Chloride 85 mmol/L (98-107); Sodium 136 mmol/L (136-145)
[2024-11-21 06:18] LABS: Alanine Aminotransferase 10 U/L (12-78); Albumin/Globulin Ratio 0.8 (1.1-1.8); Alkaline Phosphatase 167 U/L (38-126); Aspartate Amino Transferase 24 U/L (14-36); Bilirubin,Total 0.4 mg/dl (0.2-1.3); Calcium 8.4 mg/dl (8.4-10.2); Globulin 3.7 g/dL (1.3-3.2); Glucose 156 mg/dl (74-100); Magnesium 1.7 mg/dl (1.6-2.3); Total Protein,Serum 6.8 g/dl (6.3-8.2)
[2024-11-21 06:23] LABS: Blood Urea Nitrogen 16 mg/dl (7-17); Creatinine Clearance Estimated 45 mL/min (50-200); Creatinine,Serum 0.90 mg/dl (0.52-1.04); Estimated Glomerular Filt Rate 62 ml/min (>60); GFR (African American) 75 ML/MIN (>60)
[2024-11-21 06:28] LABS: Total Cells Counted 58
[2024-11-21 06:48] LABS: Potassium 2.7 mmoL/L (3.5-5.1)
--- NOTE | 2024-11-21 08:02 | EXP.ACUTE.PN ---
Subjective *Date: 11/21/24 *Time: 09:26 Interval history: Weaned oxygen to 1 L on rounds. Has any pain or breath. Nausea. Tolerating p.o. intake. Having good diuresis. Down 9.2 L since admission. Planning for right heart cath today. Daughter at bedside. Medical Exam Vital signs and Labs for Last 24 Hours: Vital Signs Temp Pulse Pulse Pulse Resp BP Pulse Ox 11/21/24 06:55 11/21/24 05:00 11/21/24 04:00 70 11/21/24 04:00 98.5 F 78 18 178/66 H 97 11/21/24 03:00 11/21/24 01:00 11/21/24 00:00 80 11/21/24 00:00 98.1 F 83 16 102/61 L 95 11/20/24 23:00 11/20/24 21:00 11/20/24 20:00 11/20/24 20:00 80 11/20/24 20:00 99.5 F 85 18 121/51 L 93 L 11/20/24 18:28 11/20/24 16:28 11/20/24 16:00 80 11/20/24 16:00 98.1 F 83 18 103/45 L 94 L 11/20/24 14:37 11/20/24 13:00 11/20/24 12:00 80 11/20/24 12:00 98.3 F 80 18 105/54 L 96 11/20/24 10:02 O2 Del Method O2 Flow Rate 11/21/24 06:55 Nasal Cannula 2 11/21/24 05:00 Nasal Cannula 2 11/21/24 04:00 11/21/24 04:00 Nasal Cannula 2 11/21/24 03:00 Nasal Cannula 2 11/21/24 01:00 Nasal Cannula 2 11/21/24 00:00 11/21/24 00:00 Nasal Cannula 2 11/20/24 23:00 Nasal Cannula 2 11/20/24 21:00 Nasal Cannula 2 11/20/24 20:00 Nasal Cannula 2 11/20/24 20:00 11/20/24 20:00 Nasal Cannula 2 11/20/24 18:28 Nasal Cannula 2 11/20/24 16:28 Nasal Cannula 2 11/20/24 16:00 11/20/24 16:00 Nasal Cannula 2 11/20/24 14:37 Nasal Cannula 2 11/20/24 13:00 Room Air 11/20/24 12:00 11/20/24 12:00 Nasal Cannula 2 11/20/24 10:02 Nasal Cannula 2 Intake and Output 11/20/24 11/21/24 11/21/24 23:59 07:59 15:59 Intake Total 322.833 / 1282.833 378.5 / 378.5 Output Total 670 / 5070 1850 / 1850 Balance -347.167 / -3787.167 -1471.5 / -1471.5 Intake: Intake, Oral Amount 240 / 1100 300 / 300 Intake, Total IV Amount 82.833 / 182.833 78.5 / 78.5 Bumetanide 10 mg In 0.9 % 82.833 / 182.833 78.5 / 78.5 Sodium Chloride 60 ml @ 10 mls/ hr IV .Q10H [facility] Rx#:[id number] Output: Output, Urine Amount 670 / 5070 185 / 1850 Other: Number of Unmeasured Voids 0 Weight 115.984 kg Patient Weight 11/21/24 23:59 Weight 115.984 kg Laboratory Results - last 24 hr 11/20/24 10:59: WBC 10.7, RBC 3.54 L, Hgb 8.6 L, Hct 29.7 L, MCV 83.9, MCH 24.3 L, MCHC 29.0 L, RDW 26.3 H*, Plt Count 438 H, MPV 10.6 H, Neut % (Auto) 67.6, Lymph % (Auto) 11.3, [place] % (Auto) 14.3 H, Eos % (Auto) 5.0, Baso % (Auto) 1.3, Neut # (Auto) 7.2, Lymph # (Auto) 1.2, [place] # (Auto) 1.5 H, Eos # (Auto) 0.5 H, Baso # (Auto) 0.1, Sodium 137, Potassium 3.4 L, Chloride 90 L, Carbon Dioxide 39 H, Anion Gap 11.4, BUN 19 H, Creatinine 0.90, Estimated Creat Clear 45, Estimated GFR 62, Est GFR ( Amer) 75, Glucose 146 H, Calcium 8.4, Magnesium 1.7 D, Total Bilirubin 0.8, AST 25, ALT 12, Alkaline Phosphatase 156 H, Total Protein 6.6, Albumin 3.3 L, Globulin 3.3 H, Albumin/Globulin Ratio 1.0 L 11/21/24 05:37: WBC 11.1 H, RBC 3.40 L, Hgb 8.2 L, Hct 27.9 L, MCV 82.1, MCH 24.1 L, MCHC 29.4 L, RDW 25.9 H*, Plt Count 468 H, MPV 10.7 H, Neut % (Auto) 62.0, Lymph % (Auto) 13.4, [place] % (Auto) 16.6 H, Eos % (Auto) 6.6, Baso % (Auto) 1.0, Neut # (Auto) 6.9, Lymph # (Auto) 1.5, [place] # (Auto) 1.8 H, Eos # (Auto) 0.7 H, Baso # (Auto) 0.1, Total Counted 58, Band Neutrophils % 33 H, Atypical Lymphs % 9, Sodium 136, Potassium 2.7 L* D, Chloride 85 L, BUN 16, Creatinine 0.90, Estimated Creat Clear 45, Estimated GFR 62, Est GFR ( Amer) 75, Glucose 156 H, Calcium 8.4, Magnesium 1.7, Total Bilirubin 0.4, AST 24, ALT 10 L, Alkaline Phosphatase 167 H, Total Protein 6.8, Albumin 3.1 L, Globulin 3.7 H, Albumin/Globulin Ratio 0.8 L I & O for Labs for Last 24 Hours: Intake & Output 11/18/24 11/19/24 11/20/24 11/21/24 23:59 23:59 23:59 23:59 Intake Total 240 / 240 1060.500 / 1180.500 982.833 / 1282.833 378.5 / 378.5 Output Total 1151 / 1601 4225 / 4625 4670 / 5070 1850 / 1850 Balance -911 / -1361 -3164.500 / -3444.500 -3687.167 / -3787.167 -1471.5 / -1471.5 Weight 116.2 kg 117 kg 115.258 kg 115.984 kg Constitutional: Present no acute distress, obese, chronically ill appearing and cooperative Head: Present atraumatic and normocephalic ENT: Present normal exam Neck: Present normal inspection Respiratory: Present rhonchi, distant breath sounds and diminished air movement; Absent accessory muscle use, wheezes or crackles Cardiac: Present Reg Rate and Rhythm and Audible Murmur GI: Present soft and normal bowel sounds; Absent distention or tenderness Extremities: Present normal inspection, full ROM and edema (Bilateral stasis dermatitis; 2+ edema to knees, interval improvement ) Skin: Present intact and wounds; Absent erythema Neuro: Present Grossly Intact, alert, awake, oriented x 3 and moves all extremities Assessment and Plan *Assessment and plan (1) (HFpEF) heart failure with preserved ejection fraction: Status: Acute Qualifiers: Heart failure chronicity: acute on chronic Qualified Code(s): I50.33 - Acute on chronic diastolic (congestive) heart failure Category: Medical Code(s): I50.30 - Unspecified diastolic (congestive) heart failure (2) Cor pulmonale: Status: Acute Category: Medical Code(s): I27.81 - Cor pulmonale (chronic) (3) Hyponatremia: Status: Acute Category: Medical Code(s): E87.1 - Hypo-osmolality and hyponatremia (4) Primary pulmonary hypertension: Status: Chronic Category: Medical Code(s): I27.0 - Primary pulmonary hypertension (5) Hypertension: Status: Chronic Qualifiers: Hypertension type: primary hypertension Qualified Code(s): I10 - Essential (primary) hypertension Category: Medical Code(s): I10 - Essential (primary) hypertension (6) Asplenia: Status: Chronic Category: Medical Code(s): Q89.01 - Asplenia (congenital) (7) Severe tricuspid regurgitation: Status: Chronic Category: Medical Code(s): I07.1 - Rheumatic tricuspid insufficiency (8) Diabetes mellitus type 2 in obese: Status: Chronic Category: Medical Code(s): E11.69 - Type 2 diabetes mellitus with other specified complication; E66.9 - Obesity, unspecified (9) Obesity: Problem Comment: Class II Status: Chronic Qualifiers: Obesity type: due to excess calories Obesity classification: adult class 3 (BMI >= 40) Body mass index: BMI 40.0-44.9 Serious obesity comorbidity presence: with serious comorbidity Qualified Code(s): E66.813 - Obesity, class 3; Z68.41 - Body mass index [BMI] 40.0-44.9, adult Category: Medical Code(s): E66.9 - Obesity, unspecified (10) Atrial fibrillation: Status: Chronic Qualifiers: Atrial fibrillation type: longstanding persistent Qualified Code(s): I48.11 - Longstanding persistent atrial fibrillation Category: Medical Code(s): I48.91 - Unspecified atrial fibrillation (11) Cirrhosis of liver: Status: Chronic Qualifiers: Hepatic cirrhosis type: unspecified hepatic cirrhosis Ascites presence: unspecified Qualified Code(s): K74.60 - Unspecified cirrhosis of liver Category: Medical Code(s): K74.60 - Unspecified cirrhosis of liver Plan Rica Flannery is a 69-year-old female with a medical history significant for severe right heart failure/cor pulmonale from pulmonary hypertension, asplenia, paroxysmal A-fib, CAD, type 2 diabetes, anxiety/depression, GERD presents with dyspnea for follow-up with cardiology and pulmonology today. During her visit with cardiology, concern for patient's continued oxygen requirement and failure of adjustments to outpatient regimen. Discussed case with cardiology team, request admission for Bumex drip and aggressive diuresis. I agreed to admit to the stepdown unit for further inpatient care. Pulmonology and cardiology continue to assist with care. Showing improvement. Diuresing well. Down 9.2 L since admission. Will continue Bumex drip today. Planning on right heart cath. Problems addressed as follows: # Pulmonary hypertension with cor pulmonale # Severe RV failure with cor pulmonale # Severe tricuspid regurgitation # Acute on chronic HFpEF #Medication side effect Hypokalemia ? Patient has underlying pulmonary hypertension with concomitant cor pulmonale, possibly related to undiagnosed sleep apnea versus history of hypertension. - Reviewed right and left heart cath from [place], Consistent with primary pulmonary hypertension. Right heart failure severe. Pulmonary artery pressures equal to systemic pressures. ? Discussed case with cardiology, recommend continuing diuresis. Will continue Bumex drip until we see a bump in kidney function. Will transition to oral Bumex prior to discharge -Planning to repeat right heart cath and consider resuming tadalafil/sildenafil - After discussion with pulmonology, agree with holding macitentan - Continue Bumex drip 1 mg/h. Continue [place] for strict output. -9 L so far. - Repeat CBC, CMP, magnesium ordered for the morning - Goal sats greater than 90%, currently on 1L. - White count remains stable 11, hemoglobin 8.2. No signs of bleeding. - Discussed case with cardiology, planning on right heart cath today to further evaluate pulmonary pressures as she has been on Opsumit for the better part of a month - Monitoring electrolytes closely with diuresis. Potassium 2.7, magnesium 1.7. Replace per protocol. Kidney function stable with BUN 16, creatinine 0.9. # Iron deficient anemia: Anemia with marginal improvement to 8.6, platelets 438. No active signs of bleeding. transfusion threshold hemoglobin less than 8, repeat CBC, CMP, magnesium ordered for the morning #History of asplenia: Monitor closely for infection. Cirrhosis: Diagnosed on imaging during a previous visit, needs follow-up with GI as an outpatient. #Physical deconditioning #Depression ? Patient's recently. Had gone to rehab for therapy. Was participating well with PT and OT. Will reconsult PT and OT while admitted. ? Mood stable, continue home duloxetine 60 mg daily, nortriptyline 25 mg daily. - Melatonin 5 mg nightly for sleep Chronic medical problems: #Paroxysmal A-fib: Currently rate controlled. Continue home Eliquis 5 mg twice daily. Hold home metoprolol due to hypotension. #CAD: Holding aspirin and statin DNR/DNI DVT prophylaxis: Eliquis Cardiac diet
[2024-11-21 08:07] LABS: Anion Gap 6.7 mEq/L (5-15); Carbon Dioxide 47 mmol/L (22.0-30.0)
--- NOTE | 2024-11-21 09:00 | IR_ITS ---
APPROVED REPORT Patient Location: Inpatient PROCEDURES Right heart catheterization INDICATION Congestive heart failure, Pulmonary hypertension Informed consent was obtained prior to the procedure. COMPLICATIONS none Estimated Blood Loss: less than 10ml TECHNIQUE One percent lidocaine was used to anesthetize the right anterior aspect of the neck. A psych therapist needle was used to identify the right internal jugular vein. Following this a larger cannulation needle was used to cannulate the right internal jugular vein and a wire was passed into the vein. Prior to the 7 [place] sheath being inserted the wire was confirmed under fluoroscopic guidance to be in the inferior vena cava. A 7 [place] sheath was introduced and a [place]-John catheter was floated using hemodynamic waveforms in the pulmonary artery, right ventricle , and right atrium. Saturations were obtained in the pulmonary artery and the right atrium. At the end of the procedure the patient was transferred to the postop holding area in stable condition for sheath removal. ANGIOGRAPHIC RESULTS Right atrial pressure 18 mmHg Right ventricular pressure 95/15 mmHg Pulmonary artery pressure 92/38 mmHg Pulmonary occlusion pressure 18 mmHg Right atrial saturation 44% Pulmonary artery pressure 44% Aortic saturation 97% Hemoglobin 8.2 Cardiac output 4.6 L/min IMPRESSION Severe pulmonary hypertension as described above Moderately elevated LVEDP PLAN 1. Continue diuresis 2. Patient's pulmonary hypertension cannot be explained by group 2 3. Consider evaluation at the [facility] pulmonary hypertension clinic under the care of Dr. Richard Anderson Electronically signed by : Luiz Morgan MD 11/21/2024 12:24:39
[2024-11-21] MEDS: SENNOSIDES 8.6MG/DOCUSATE 50MG TABLET 1 TAB PO (09:04)
[2024-11-21] MEDS: POLYETHYLENE GLYCOL 3350 17 GM PACKET PO (09:04)
[2024-11-21] MEDS: APIXABAN 5MG TABLET 5 MG PO ×2 (09:05→20:28)
[2024-11-21] MEDS: POTASSIUM CHLORIDE 20MEQ TAB 40 MEQ PO ×2 (09:05→16:09)
[2024-11-21] MEDS: FAMOTIDINE 20MG TABLET 20 MG PO (09:05)
[2024-11-21] MEDS: MAGNESIUM SULFATE IN WATER 2 GM/50 ML PIGGYBACK IV ×2 (09:09→10:28)
--- NOTE | 2024-11-21 09:57 | EXP.PULM.PN ---
Subjective *Date: 11/21/24 *Time: 13:43 Interval history: No acute respiratory vents overnight. Patient denies any new respiratory complaints. Awaiting right heart cath. Pulmonology Exam Inpatient Vital signs and Labs for Last 24 Hours: Temp Pulse Resp BP Pulse Ox O2 Del Method O2 Flow Rate 98.4 F 69 14 115/61 94 L Nasal Cannula 2 11/21/24 08:00 11/21/24 08:00 11/21/24 08:00 11/21/24 08:00 11/21/24 08:00 11/21/24 08:00 11/21/24 08:00 Laboratory Results - last 24 hr 11/20/24 10:59: WBC 10.7, RBC 3.54 L, Hgb 8.6 L, Hct 29.7 L, MCV 83.9, MCH 24.3 L, MCHC 29.0 L, RDW 26.3 H*, Plt Count 438 H, MPV 10.6 H, Neut % (Auto) 67.6, Lymph % (Auto) 11.3, [place] % (Auto) 14.3 H, Eos % (Auto) 5.0, Baso % (Auto) 1.3, Neut # (Auto) 7.2, Lymph # (Auto) 1.2, [place] # (Auto) 1.5 H, Eos # (Auto) 0.5 H, Baso # (Auto) 0.1, Sodium 137, Potassium 3.4 L, Chloride 90 L, Carbon Dioxide 39 H, Anion Gap 11.4, BUN 19 H, Creatinine 0.90, Estimated Creat Clear 45, Estimated GFR 62, Est GFR ( Amer) 75, Glucose 146 H, Calcium 8.4, Magnesium 1.7 D, Total Bilirubin 0.8, AST 25, ALT 12, Alkaline Phosphatase 156 H, Total Protein 6.6, Albumin 3.3 L, Globulin 3.3 H, Albumin/Globulin Ratio 1.0 L 11/21/24 05:37: WBC 11.1 H, RBC 3.40 L, Hgb 8.2 L, Hct 27.9 L, MCV 82.1, MCH 24.1 L, MCHC 29.4 L, RDW 25.9 H*, Plt Count 468 H, MPV 10.7 H, Neut % (Auto) 62.0, Lymph % (Auto) 13.4, [place] % (Auto) 16.6 H, Eos % (Auto) 6.6, Baso % (Auto) 1.0, Neut # (Auto) 6.9, Lymph # (Auto) 1.5, [place] # (Auto) 1.8 H, Eos # (Auto) 0.7 H, Baso # (Auto) 0.1, Total Counted 58, Band Neutrophils % 33 H, Atypical Lymphs % 9, Sodium 136, Potassium 2.7 L* D, Chloride 85 L, Carbon Dioxide 47 H*, Anion Gap 6.7, BUN 16, Creatinine 0.90, Estimated Creat Clear 45, Estimated GFR 62, Est GFR ( Amer) 75, Glucose 156 H, Calcium 8.4, Magnesium 1.7, Total Bilirubin 0.4, AST 24, ALT 10 L, Alkaline Phosphatase 167 H, Total Protein 6.8, Albumin 3.1 L, Globulin 3.7 H, Albumin/Globulin Ratio 0.8 L Temp Pulse Resp BP Pulse Ox O2 Del Method O2 Flow Rate 98.4 F 76 17 132/77 96 Nasal Cannula 2 11/19/24 04:00 11/19/24 06:30 11/19/24 06:30 11/19/24 06:00 11/19/24 06:30 11/19/24 06:30 11/19/24 06:30 Laboratory Results - last 24 hr 11/18/24 15:52: WBC 11.4 H, RBC 3.66 L, Hgb 8.8 L, Hct 30.4 L, MCV 83.1, MCH 24.0 L, MCHC 28.9 L, RDW 26.7 H*, Plt Count 417, MPV 10.3, Neut % (Auto) 66.2, Lymph % (Auto) 12.2, [place] % (Auto) 13.6 H, Eos % (Auto) 6.6, Baso % (Auto) 1.0, Neut # (Auto) 7.6, Lymph # (Auto) 1.4, [place] # (Auto) 1.6 H, Eos # (Auto) 0.8 H, Baso # (Auto) 0.1, Total Counted 100, Neutrophils % (Manual) 67, Lymphocytes % (Manual) 14, Monocytes % (Manual) 13 H, Eosinophils % (Manual) 5 H, Basophils % (Manual) 1.0, Platelet Estimate Slight increase, Giant Platelets 1+, Polychromasia 1+, Hypochromasia 1+, Poikilocytosis 1+, Anisocytosis 1+, Microcytosis 1+, Macrocytosis 1+, Target Cells 1+, Tear Drop Cells 1+, [place] Cells 1+, Sodium 137, Potassium 3.3 L, Chloride 89 L, Carbon Dioxide 39 H, Anion Gap 12.3, BUN 18 H, Creatinine 1.00, Estimated Creat Clear 45, Estimated GFR 55 L, Est GFR ( Amer) 66, Glucose 109 H, Calcium 9.1, Magnesium 2.0, Total Bilirubin 0.9, AST 23, ALT 13, Alkaline Phosphatase 208 H, Troponin I 0.02, NT-Pro-B Natriuret Pep 3830 H, Total Protein 7.3, Albumin 3.7, Globulin 3.6 H, Albumin/Globulin Ratio 1.0 L 11/19/24 05:33: WBC 9.6, RBC 3.46 L, Hgb 8.3 L, Hct 28.6 L, MCV 82.7, MCH 24.0 L, MCHC 29.0 L, RDW 26.8 H*, Plt Count 386, MPV 10.4, Neut % (Auto) 63.9, Lymph % (Auto) 13.8, [place] % (Auto) 13.5 H, Eos % (Auto) 7.3, Baso % (Auto) 1.1, Neut # (Auto) 6.1, Lymph # (Auto) 1.3, [place] # (Auto) 1.3 H, Eos # (Auto) 0.7 H, Baso # (Auto) 0.1, Sodium 136, Potassium 3.4 L, Chloride 91 L, BUN 16, Creatinine 0.90, Estimated Creat Clear 45, Estimated GFR 62, Est GFR ( Amer) 75, Glucose 154 H D, Calcium 8.3 L, Magnesium 1.9, Total Bilirubin 0.7, AST 23, ALT 11 L, Alkaline Phosphatase 175 H, Total Protein 6.7, Albumin 3.3 L D, Globulin 3.4 H, Albumin/Globulin Ratio 1.0 L I & O for Labs for Last 24 Hours: Intake & Output 11/18/24 11/19/24 11/20/24 11/21/24 23:59 23:59 23:59 23:59 Intake Total 240 / 240 1060.500 / 1180.500 982.833 / 1282.833 378.5 / 378.5 Output Total 1151 / 1601 4225 / 4625 4670 / 5070 2550 / 2550 Balance -911 / -1361 -3164.500 / -3444.500 -3687.167 / -3787.167 -2171.5 / -2171.5 Weight 256 lb 2.834 oz 257 lb 15.053 oz 254 lb 1.6 oz 255 lb 11.2 oz Intake & Output 11/16/24 11/17/24 11/18/24 11/19/24 23:59 23:59 23:59 23:59 Intake Total 240 / 240 81.333 / 81.333 Output Total 1151 / 1601 1350 / 1350 Balance -911 / -1361 -1268.667 / -1268.667 Weight 256 lb 2.834 oz 257 lb 15.053 oz Constitutional: Present moderate distress Head: Present normocephalic and atraumatic ENT: Present normal exam, normal oropharynx and mucous membranes moist Neck: Present normal inspection and full ROM Respiratory: Present respiratory distress, diminished air movement and able to speak in complete sentences; Absent prolonged expiratory phase, rhonchi or wheezes Cardiac: Present S1/S2, Tachycardia and radial pulses present GI: Present soft and distention; Absent tenderness or guarding Rectal (female): Present deferred (female): Present deferred Skin: Present intact; Absent cyanosis or jaundice Neuro: Present alert, awake and oriented x 3 Extremities: Present normal inspection and edema; Absent clubbing or cyanosis Psychiatric: Present normal affect and cooperative Assessment and Plan *Assessment and plan (1) Pulmonary hypertension: Status: Chronic Category: Medical Code(s): I27.20 - Pulmonary hypertension, unspecified (2) Acute and chronic respiratory failure with hypoxia: Status: Acute Category: Medical Code(s): J96.21 - Acute and chronic respiratory failure with hypoxia Plan Ms. Flannery is a 69 year-old female no significant smoking history, obesity, high risk for sleep apnea recently had a diagnosis of pulmonary hypertension status post right heart cath showed pulmonary hypertension with increased PVR at 12 ureña which also showed to have elevated wedge pressure at 18 initiated on a combination of Tadanafil and Macicentan for her pulmonary arterial hypertension, since then having frequent hospital admissions for worsening respiratory distress hypertension dizziness and volume overload recently discharged from the hospital after volume optimization presented worsening respiratory distress and pulmonary was called for further evaluation and management. Patient CT abdomen findings are also consistent with cirrhosis. Child-Cruz score A. Chest x-ray no dense consolidative/airspace changes. Interval update: No No acute respiratory vents overnight. Daytime blood gas consistent with obesity hypoventilation syndrome. Cannot completely rule out concomitant sleep apnea given her morbid obesity. Continue to hold macicentan and Tadanafil given her recurrent admissions for volume overload hypotensive episodes. Continue to receive diuretics. Net negative volume status. Plan: Continue volume optimization and management for other comorbidities contributing to her type III PH. Plan for right heart cath before initiating the patient on likely tadanafil 20mg Once daily oral for her PAH Continue oxygen supplementation to maintain O2 saturation goal of 90% and above, needing 1 to 2 L nasal cannula Follow-up with GI as an outpatient basis for her abnormal CT finding consistent with cirrhosis. Patient is due to undergo sleep study as an outpatient basis. Will schedule lab polysomnography testing. For now continue oxygen supplementation also at night to maintain O2 saturation goal of 90% and above She continue to receive Eliquis twice daily for her paroxysmal A-fib.
[2024-11-21] MEDS: HEPARIN 1,000 UNITS/500ML NS (CATH LAB) 3000 UNIT IV (12:04)
[2024-11-21] MEDS: 0.9 % SODIUM CHLORIDE 500 ML 25 ML IV (12:04)
[2024-11-21] MEDS: LIDOCAINE 1% 10ML MDV 10 ML IJ (12:05)
[2024-11-21] MEDS: FENTANYL 100MCG/2ML VIAL 50 MCG IV (12:18)
[2024-11-21] MEDS: MIDAZOLAM HCL 1MG/ML 5ML VIAL 1 MG IV (12:19)
--- NOTE | 2024-11-21 12:30 | SUR.PHASEII ---
Report called to Goldy MERINO, patient taken to 2nd floor at this time
[2024-11-21 12:54] LABS: CATHL Arterial O2 SAT 44 % (90-100); CATHL Venous O2 SAT 44 % (75-80)
[2024-11-21] MEDS: MELATONIN 5MG TABLET 5 MG PO (20:28)
[2024-11-22] VITALS (8 sets, daily range): BP systolic 98–123; BP diastolic 47–61; PULSE 50–84; RESP 12–18; TEMP 36.6–37; O2SAT 92–97; BMI 41.1
[2024-11-22] MEDS: HYDROCODONE/APAP 5/325 MG TABLET 1 TAB PO (00:44)
--- NOTE | 2024-11-22 03:34 | PC.NURSE ---
Pt AOx4, pleasant. VSS. No acute changes this shift. Pt received one time dose of pain meds per provider. Pt is now resting in bed with eyes closed. 2L O2. Respirations even and unlabored. Bed low, locked, and call light in reach.
[2024-11-22 07:08] LABS: Hematocrit 29.2 % (37.0-47.0); Hemoglobin 8.5 g/dL (12.2-16.2); Immature Granulocytes % 0.5 %; Mean Corpuscular HGB Conc 29.1 g/dL (31.8-35.4); Mean Corpuscular Hemoglobin 24.1 pg (27.0-31.2); Mean Corpuscular Volume 83.0 fl (81-99); Nucleated Red Blood Cells % 0 %; Platelet Count 480 K/mm3 (142-424); Red Blood Count 3.52 M/mm3 (4.20-5.40); Red Cell Distribution Width-SD 77.0 fL; White Blood Count 10.4 K/mm3 (4.8-10.8)
[2024-11-22 07:23] LABS: Albumin Level 3.1 g/dl (3.5-5.0); Chloride 84 mmol/L (98-107); Potassium 3.1 mmoL/L (3.5-5.1); Sodium 135 mmol/L (136-145)
[2024-11-22 07:26] LABS: Alanine Aminotransferase 10 U/L (12-78); Albumin/Globulin Ratio 0.8 (1.1-1.8); Alkaline Phosphatase 154 U/L (38-126); Aspartate Amino Transferase 21 U/L (14-36); Bilirubin,Total 0.6 mg/dl (0.2-1.3); Blood Urea Nitrogen 18 mg/dl (7-17); Calcium 8.8 mg/dl (8.4-10.2); Creatinine Clearance Estimated 45 mL/min (50-200); Creatinine,Serum 1.00 mg/dl (0.52-1.04); Estimated Glomerular Filt Rate 55 ml/min (>60); GFR (African American) 66 ML/MIN (>60); Globulin 3.9 g/dL (1.3-3.2); Glucose 179 mg/dl (74-100); Total Protein,Serum 7.0 g/dl (6.3-8.2)
[2024-11-22 08:01] LABS: Anion Gap 7.1 mEq/L (5-15); Carbon Dioxide 47 mmol/L (22.0-30.0)
--- NOTE | 2024-11-22 08:06 | EXP.ACUTE.PN ---
Subjective *Date: 11/22/24 *Time: 09:35 Interval history: Sleeping initially on exam this morning. Stable on 2 L. Denies chest pain or shortness of breath. No nausea or vomiting. Diuresing well with Bumex drip. Continuing today. Medical Exam Vital signs and Labs for Last 24 Hours: Vital Signs Temp Pulse Pulse Resp BP Pulse Ox O2 Del Method 11/22/24 07:52 97.8 F 78 16 98/58 L 96 Nasal Cannula 11/22/24 06:33 Nasal Cannula 11/22/24 05:00 Nasal Cannula 11/22/24 04:00 98.0 F 69 14 106/49 L 94 L Nasal Cannula 11/22/24 04:00 70 11/22/24 03:00 Nasal Cannula 11/22/24 01:00 Nasal Cannula 11/22/24 00:00 70 11/22/24 00:00 97.9 F 84 12 112/47 L 92 L Nasal Cannula 11/21/24 23:00 Nasal Cannula 11/21/24 21:00 Nasal Cannula 11/21/24 20:00 80 11/21/24 20:00 Nasal Cannula 11/21/24 20:00 98.2 F 85 14 120/60 91 L Nasal Cannula 11/21/24 18:55 70 11/21/24 18:02 Nasal Cannula 11/21/24 17:00 Nasal Cannula 11/21/24 16:00 97.7 F 67 18 100/41 L 97 Nasal Cannula 11/21/24 15:35 71 18 112/58 L 95 Nasal Cannula 11/21/24 15:05 78 18 104/63 L 95 Nasal Cannula 11/21/24 15:00 Nasal Cannula 11/21/24 13:35 74 18 108/52 L 92 L Nasal Cannula 11/21/24 13:20 79 18 112/54 L 96 Nasal Cannula 11/21/24 13:05 73 18 120/72 95 Nasal Cannula 11/21/24 13:00 Nasal Cannula 11/21/24 12:50 83 18 118/68 95 Nasal Cannula 11/21/24 12:35 78 18 116/63 94 L Nasal Cannula 11/21/24 11:00 Nasal Cannula 11/21/24 09:00 Nasal Cannula O2 Flow Rate 11/22/24 07:52 2 11/22/24 06:33 2 11/22/24 05:00 2 11/22/24 04:00 2 11/22/24 04:00 11/22/24 03:00 2 11/22/24 01:00 2 11/22/24 00:00 11/22/24 00:00 2 11/21/24 23:00 2 11/21/24 21:00 2 11/21/24 20:00 11/21/24 20:00 2 11/21/24 20:00 2 11/21/24 18:55 11/21/24 18:02 2 11/21/24 17:00 2 11/21/24 16:00 1 11/21/24 15:35 2 11/21/24 15:05 2 11/21/24 15:00 2 11/21/24 13:35 2 11/21/24 13:20 2 11/21/24 13:05 2 11/21/24 13:00 2 11/21/24 12:50 2 11/21/24 12:35 2 11/21/24 11:00 2 11/21/24 09:00 2 Intake and Output 11/21/24 11/22/24 11/22/24 23:59 07:59 15:59 Intake Total 520 / 7751.269 8953 / 1000 Output Total 900 / 5700 1500 / 1500 Balance -380 / -4122.833 -500 / -500 Intake: Intake, Oral Amount 420 / 1200 1000 / 1000 Intake, Total IV Amount 100 / 377.167 Bumetanide 10 mg In 0.9 % 100 / 277.167 Sodium Chloride 60 ml @ 10 mls/ hr IV .Q10H COUNT INCLUDES [facility] Rx#:[id number] Output: Output, Urine Amount 900 / 5700 1500 / 1500 Other: Number of Unmeasured Voids 0 0 Weight 109.134 kg Patient Weight 11/22/24 23:59 Weight 109.134 kg Laboratory Results - last 24 hr 11/21/24 05:37: Carbon Dioxide 47 H*, Anion Gap 6.7 11/21/24 12:15: ABG O2 Sat (Measured) 44 L, POC VBG O2 Sat (Robinson) 44 L 11/22/24 06:55: WBC 10.4, RBC 3.52 L, Hgb 8.5 L, Hct 29.2 L, MCV 83.0, MCH 24.1 L, MCHC 29.1 L, RDW 25.8 H*, Plt Count 480 H, MPV 10.2, Neut % (Auto) 59.7, Lymph % (Auto) 15.8, Elbert % (Auto) 17.6 H, Eos % (Auto) 5.2, Baso % (Auto) 1.2, Neut # (Auto) 6.2, Lymph # (Auto) 1.6, Elbert # (Auto) 1.8 H, Eos # (Auto) 0.5 H, Baso # (Auto) 0.1, Sodium 135 L, Potassium 3.1 L, Chloride 84 L, Carbon Dioxide 47 H*, Anion Gap 7.1, BUN 18 H, Creatinine 1.00, Estimated Creat Clear 45, Estimated GFR 55 L, Est GFR ( Amer) 66, Glucose 179 H, Calcium 8.8, Total Bilirubin 0.6, AST 21, ALT 10 L, Alkaline Phosphatase 154 H, Total Protein 7.0, Albumin 3.1 L, Globulin 3.9 H, Albumin/Globulin Ratio 0.8 L I & O for Labs for Last 24 Hours: Intake & Output 11/19/24 11/20/24 11/21/24 11/22/24 23:59 23:59 23:59 23:59 Intake Total 1060.500 / 1180.500 982.833 / 2549.786 4738.167 / 0220.763 2629 / 1000 Output Total 4225 / 4625 4670 / 5070 4850 / 5700 1500 / 1500 Balance -3164.500 / -3444.500 -3687.167 / -3787.167 -3752.833 / -4122.833 -500 / -500 Weight 117 kg 115.258 kg 115.984 kg 109.134 kg Constitutional: Present no acute distress, obese, chronically ill appearing and cooperative Head: Present atraumatic and normocephalic ENT: Present normal exam Neck: Absent normal inspection Comment:: Bandage over right IJ/access for right heart cath from yesterday. No active bleeding or significant hematoma Respiratory: Present rhonchi, distant breath sounds and diminished air movement; Absent accessory muscle use, wheezes or crackles Cardiac: Present Reg Rate and Rhythm and Audible Murmur GI: Present soft and normal bowel sounds; Absent distention or tenderness Extremities: Present normal inspection, full ROM and edema (Bilateral stasis dermatitis; 1+ edema to knees, interval improvement ) Skin: Present intact and wounds; Absent erythema Neuro: Present Grossly Intact, alert, awake, oriented x 3 and moves all extremities Assessment and Plan *Assessment and plan (1) (HFpEF) heart failure with preserved ejection fraction: Status: Acute Qualifiers: Heart failure chronicity: acute on chronic Qualified Code(s): I50.33 - Acute on chronic diastolic (congestive) heart failure Category: Medical Code(s): I50.30 - Unspecified diastolic (congestive) heart failure (2) Cor pulmonale: Status: Acute Category: Medical Code(s): I27.81 - Cor pulmonale (chronic) (3) Hyponatremia: Status: Acute Category: Medical Code(s): E87.1 - Hypo-osmolality and hyponatremia (4) Primary pulmonary hypertension: Problem Comment: Type I pulmonary hypertension Status: Chronic Category: Medical Code(s): I27.0 - Primary pulmonary hypertension (5) Hypertension: Status: Chronic Qualifiers: Hypertension type: primary hypertension Qualified Code(s): I10 - Essential (primary) hypertension Category: Medical Code(s): I10 - Essential (primary) hypertension (6) Asplenia: Status: Chronic Category: Medical Code(s): Q89.01 - Asplenia (congenital) (7) Severe tricuspid regurgitation: Status: Chronic Category: Medical Code(s): I07.1 - Rheumatic tricuspid insufficiency (8) Diabetes mellitus type 2 in obese: Status: Chronic Category: Medical Code(s): E11.69 - Type 2 diabetes mellitus with other specified complication; E66.9 - Obesity, unspecified (9) Obesity: Problem Comment: Class II Status: Chronic Qualifiers: Body mass index: BMI 40.0-44.9 Obesity classification: adult class 3 (BMI >= 40) Obesity type: due to excess calories Serious obesity comorbidity presence: with serious comorbidity Qualified Code(s): E66.813 - Obesity, class 3; Z68.41 - Body mass index [BMI] 40.0-44.9, adult Category: Medical Code(s): E66.9 - Obesity, unspecified (10) Atrial fibrillation: Status: Chronic Qualifiers: Atrial fibrillation type: longstanding persistent Qualified Code(s): I48.11 - Longstanding persistent atrial fibrillation Category: Medical Code(s): I48.91 - Unspecified atrial fibrillation (11) Cirrhosis of liver: Status: Chronic Qualifiers: Ascites presence: unspecified Hepatic cirrhosis type: unspecified hepatic cirrhosis Qualified Code(s): K74.60 - Unspecified cirrhosis of liver Category: Medical Code(s): K74.60 - Unspecified cirrhosis of liver Plan Rica Flannery is a 69-year-old female with a medical history significant for severe right heart failure/cor pulmonale from pulmonary hypertension, asplenia, paroxysmal A-fib, CAD, type 2 diabetes, anxiety/depression, GERD presents with dyspnea for follow-up with cardiology and pulmonology today. During her visit with cardiology, concern for patient's continued oxygen requirement and failure of adjustments to outpatient regimen. Discussed case with cardiology team, request admission for Bumex drip and aggressive diuresis. I agreed to admit to the stepdown unit for further inpatient care. Pulmonology and cardiology continue to assist with care. Showing improvement. Diuresing well. Down 12 L since admission. Will continue Bumex drip today. Tolerated right heart cath. Problems addressed as follows: # Pulmonary hypertension with cor pulmonale # Severe RV failure with cor pulmonale # Severe tricuspid regurgitation # Acute on chronic HFpEF #Medication side effect Hypokalemia ? Patient has underlying pulmonary hypertension with concomitant cor pulmonale, possibly related to undiagnosed sleep apnea versus history of hypertension. - Reviewed right and left heart cath from [place], Consistent with primary pulmonary hypertension. Right heart failure severe. Pulmonary artery pressures equal to systemic pressures - Right heart cath performed yesterday at our facility. This shows severe pulmonary hypertension. Not classified as type II. Most consistent with type I pulmonary hypertension. - Will continue Bumex drip today. -3.5 L in the past 24 hours -12 L since admission. -Has component of contraction alkalosis with bicarb of 47. Will initiate acetazolamide x 3 doses 250 mg p.o. over the next 36 hours - Repeat CBC, CMP, magnesium ordered for morning. Potassium low at 3.1. Being replaced per protocol. - Holding macitentan. Will consider resuming tadalafil in the next 24 hours. - Goal sats greater than 90%, currently on 2L. - White count remains stable 10, hemoglobin 8.5. No signs of bleeding. # Iron deficient anemia: Anemia with marginal improvement to 8.5, platelets 480. No active signs of bleeding. transfusion threshold hemoglobin less than 8, repeat CBC, CMP, magnesium ordered for the morning #History of asplenia: Monitor closely for infection. Cirrhosis: Diagnosed on imaging during a previous visit, needs follow-up with GI as an outpatient. #Physical deconditioning #Depression ? Patient's recently. Had gone to rehab for therapy. Was participating well with PT and OT. Will reconsult PT and OT while admitted. ? Mood stable, continue home duloxetine 60 mg daily, nortriptyline 25 mg daily. - Melatonin 5 mg nightly for sleep Chronic medical problems: #Paroxysmal A-fib: Currently rate controlled. Continue home Eliquis 5 mg twice daily. Hold home metoprolol due to hypotension. #CAD: Holding aspirin and statin DNR/DNI DVT prophylaxis: Eliquis Cardiac diet
[2024-11-22] MEDS: SENNOSIDES 8.6MG/DOCUSATE 50MG TABLET 1 TAB PO (08:32)
[2024-11-22] MEDS: FAMOTIDINE 20MG TABLET 20 MG PO (08:32)
[2024-11-22] MEDS: APIXABAN 5MG TABLET 5 MG PO ×2 (08:33→19:59)
[2024-11-22 08:48] LABS: Magnesium 2.2 mg/dl (1.6-2.3)
[2024-11-22] MEDS: BUMETANIDE 10 MG in 0.9 % SODIUM CHLORIDE 60 ML IV ×2 (09:24→19:59)
[2024-11-22] MEDS: POTASSIUM CHLORIDE 20MEQ TAB 40 MEQ PO ×3 (09:25→17:10)
[2024-11-22] MEDS: POLYETHYLENE GLYCOL 3350 17 GM PACKET PO (09:25)
[2024-11-22 10:12] LABS: Hypochromasia 2+; Total Cells Counted 100
--- NOTE | 2024-11-22 16:58 | PC.NURSE ---
Aox 4, right neck dressing c/d/i, f/c in place, 02-2L NC, turn every two hours,22g l fa sl, 20g r fa sl, from [place].
[2024-11-22] MEDS: MELATONIN 5MG TABLET 5 MG PO (19:59)
[2024-11-23] VITALS (8 sets, daily range): BP systolic 89–137; BP diastolic 46–71; PULSE 70–96; RESP 14–20; TEMP 36.4–37; O2SAT 94–98; BMI 40.9
--- NOTE | 2024-11-23 02:08 | PC.NURSE ---
Pt AOx4. States that she is feeling much better. Still on bumex drip. Currently resting in bed with eyes closed. Respirations even and unlabored. Bed low, locked, and call light is in reach.
[2024-11-23 07:19] LABS: Hematocrit 30.7 % (37.0-47.0); Hemoglobin 8.6 g/dL (12.2-16.2); Immature Granulocytes % 0.3 %; Mean Corpuscular HGB Conc 28.0 g/dL (31.8-35.4); Mean Corpuscular Hemoglobin 23.4 pg (27.0-31.2); Mean Corpuscular Volume 83.7 fl (81-99); Nucleated Red Blood Cells % 0 %; Platelet Count 494 K/mm3 (142-424); Red Blood Count 3.67 M/mm3 (4.20-5.40); Red Cell Distribution Width-SD 76.1 fL; White Blood Count 11.5 K/mm3 (4.8-10.8)
[2024-11-23 07:35] LABS: Albumin Level 3.2 g/dl (3.5-5.0); Chloride 88 mmol/L (98-107)
[2024-11-23 07:36] LABS: Potassium 3.1 mmoL/L (3.5-5.1); Sodium 136 mmol/L (136-145)
[2024-11-23 07:38] LABS: Alanine Aminotransferase 10 U/L (12-78); Aspartate Amino Transferase 26 U/L (14-36); Blood Urea Nitrogen 21 mg/dl (7-17); Creatinine Clearance Estimated 74 mL/min (50-200); Creatinine,Serum 1.20 mg/dl (0.52-1.04); Estimated Glomerular Filt Rate 44 ml/min (>60); GFR (African American) 54 ML/MIN (>60)
[2024-11-23 07:39] LABS: Albumin/Globulin Ratio 0.8 (1.1-1.8); Alkaline Phosphatase 163 U/L (38-126); Bilirubin,Total 0.6 mg/dl (0.2-1.3); Calcium 9.0 mg/dl (8.4-10.2); Globulin 3.9 g/dL (1.3-3.2); Glucose 137 mg/dl (74-100); Total Protein,Serum 7.1 g/dl (6.3-8.2)
[2024-11-23 07:45] LABS: Anion Gap 8.1 mEq/L (5-15); Carbon Dioxide 43 mmol/L (22.0-30.0)
[2024-11-23] MEDS: FAMOTIDINE 20MG TABLET 20 MG PO (08:14)
[2024-11-23] MEDS: SENNOSIDES 8.6MG/DOCUSATE 50MG TABLET 1 TAB PO (08:14)
[2024-11-23] MEDS: APIXABAN 5MG TABLET 5 MG PO ×2 (08:14→20:01)
[2024-11-23] MEDS: POLYETHYLENE GLYCOL 3350 17 GM PACKET PO (08:15)
[2024-11-23 08:35] LABS: Magnesium 2.0 mg/dl (1.6-2.3)
--- NOTE | 2024-11-23 10:36 | EXP.ACUTE.PN ---
Subjective *Date: 11/23/24 *Time: 12:02 Interval history: Patient stable this morn. On 2 L on rounds, decreased to 1 L due to sats in the mid to high 90s. Edema showing improvement. Blood pressure acceptable this morning on rounds. Systolics 110s. Medical Exam Vital signs and Labs for Last 24 Hours: Vital Signs Temp Pulse Pulse Resp BP Pulse Ox O2 Del Method 11/23/24 09:00 Nasal Cannula 11/23/24 08:00 79 11/23/24 08:00 Nasal Cannula 11/23/24 08:00 98.6 F 80 20 110/71 97 Nasal Cannula 11/23/24 06:49 Nasal Cannula 11/23/24 05:00 Nasal Cannula 11/23/24 04:00 75 11/23/24 04:00 98.1 F 70 18 89/50 L 94 L Nasal Cannula 11/23/24 03:00 Nasal Cannula 11/23/24 01:00 Nasal Cannula 11/23/24 00:00 75 11/23/24 00:00 97.8 F 73 18 101/50 L 94 L Nasal Cannula 11/22/24 23:00 Nasal Cannula 11/22/24 21:00 Nasal Cannula 11/22/24 20:00 80 11/22/24 20:00 98.6 F 74 18 120/61 96 Nasal Cannula 11/22/24 20:00 Nasal Cannula 11/22/24 16:29 Nasal Cannula 11/22/24 16:00 98.5 F 50 L 18 116/57 L 96 Nasal Cannula 11/22/24 14:11 Nasal Cannula 11/22/24 12:10 Nasal Cannula 11/22/24 12:00 70 11/22/24 11:52 98.2 F 81 18 123/53 L 97 Nasal Cannula 11/22/24 11:00 Nasal Cannula O2 Flow Rate 11/23/24 09:00 2 11/23/24 08:00 11/23/24 08:00 2 11/23/24 08:00 2 11/23/24 06:49 2 11/23/24 05:00 2 11/23/24 04:00 11/23/24 04:00 2 11/23/24 03:00 2 11/23/24 01:00 2 11/23/24 00:00 11/23/24 00:00 2 11/22/24 23:00 2 11/22/24 21:00 2 11/22/24 20:00 11/22/24 20:00 2 11/22/24 20:00 2 11/22/24 16:29 2 11/22/24 16:00 2 11/22/24 14:11 2 11/22/24 12:10 2 11/22/24 12:00 11/22/24 11:52 2 11/22/24 11:00 2 Intake and Output 11/22/24 11/23/24 11/23/24 23:59 07:59 15:59 Intake Total 580 / 2220 1083.333 / 1203.333 120 / 1203.333 Output Total 1450 / 5500 4400 / 5000 600 / 5000 Balance -870 / -3280 -3316.667 / -3796.667 -480 / -3796.667 Intake: Intake, Oral Amount 480 / 2020 120 / 120 Intake, Total IV Amount 100 / 200 1083.333 / 1083.333 0.9 % Sodium Chloride 500 ml @ 1000 / 1000 25 mls/hr IV .Q25H [facility] Rx#: [id number] Bumetanide 10 mg In 0.9 % 100 / 200 83.333 / 83.333 Sodium Chloride 60 ml @ 10 mls/ hr IV .Q10H [facility] Rx#:[id number] Output: Output, Urine Amount 1450 / 5500 4400 / 5000 600 / 5000 Other: Number of Unmeasured Voids 0 Weight 108.862 kg Patient Weight 11/23/24 23:59 Weight 108.862 kg Laboratory Results - last 24 hr 11/23/24 06:20: WBC 11.5 H, RBC 3.67 L, Hgb 8.6 L, Hct 30.7 L, MCV 83.7, MCH 23.4 L, MCHC 28.0 L, RDW 25.9 H*, Plt Count 494 H, MPV 11.2 H, Neut % (Auto) 64.7, Lymph % (Auto) 13.3, Cotton % (Auto) 15.6 H, Eos % (Auto) 5.0, Baso % (Auto) 1.1, Neut # (Auto) 7.4, Lymph # (Auto) 1.5, Cotton # (Auto) 1.8 H, Eos # (Auto) 0.6 H, Baso # (Auto) 0.1, Sodium 136, Potassium 3.1 L, Chloride 88 L, Carbon Dioxide 43 H*, Anion Gap 8.1, BUN 21 H, Creatinine 1.20 H, Estimated Creat Clear 74, Estimated GFR 44 L, Est GFR ( Amer) 54 L, Glucose 137 H D, Calcium 9.0, Magnesium 2.0, Total Bilirubin 0.6, AST 26, ALT 10 L, Alkaline Phosphatase 163 H, Total Protein 7.1, Albumin 3.2 L, Globulin 3.9 H, Albumin/Globulin Ratio 0.8 L I & O for Labs for Last 24 Hours: Intake & Output 11/20/24 11/21/24 11/22/24 11/23/24 23:59 23:59 23:59 23:59 Intake Total 982.833 / 0573.280 8256.167 / 5786.377 2880 / 2220 1203.333 / 1203.333 Output Total 4670 / 5070 4850 / 5700 2950 / 5500 5000 / 5000 Balance -3687.167 / -3787.167 -3752.833 / -4122.833 -730 / -3280 -3796.667 / -3796.667 Weight 115.258 kg 115.984 kg 109.134 kg 108.862 kg Constitutional: Present no acute distress, obese, chronically ill appearing and cooperative Head: Present atraumatic and normocephalic ENT: Present normal exam Neck: Absent normal inspection Comment:: Bandage over right IJ/access for right heart cath from yesterday. No active bleeding or significant hematoma Respiratory: Present rhonchi, distant breath sounds and diminished air movement; Absent accessory muscle use, wheezes or crackles Cardiac: Present Reg Rate and Rhythm and Audible Murmur GI: Present soft and normal bowel sounds; Absent distention or tenderness Extremities: Present normal inspection, full ROM and edema (Bilateral stasis dermatitis; 1+ edema to knees, interval improvement ) Skin: Present intact and wounds; Absent erythema Neuro: Present Grossly Intact, alert, awake, oriented x 3 and moves all extremities Assessment and Plan *Assessment and plan (1) (HFpEF) heart failure with preserved ejection fraction: Status: Acute Qualifiers: Heart failure chronicity: acute on chronic Qualified Code(s): I50.33 - Acute on chronic diastolic (congestive) heart failure Category: Medical Code(s): I50.30 - Unspecified diastolic (congestive) heart failure (2) Cor pulmonale: Status: Acute Category: Medical Code(s): I27.81 - Cor pulmonale (chronic) (3) Hyponatremia: Status: Acute Category: Medical Code(s): E87.1 - Hypo-osmolality and hyponatremia (4) Primary pulmonary hypertension: Problem Comment: Type I pulmonary hypertension Status: Chronic Category: Medical Code(s): I27.0 - Primary pulmonary hypertension (5) Hypertension: Status: Chronic Qualifiers: Hypertension type: primary hypertension Qualified Code(s): I10 - Essential (primary) hypertension Category: Medical Code(s): I10 - Essential (primary) hypertension (6) Asplenia: Status: Chronic Category: Medical Code(s): Q89.01 - Asplenia (congenital) (7) Severe tricuspid regurgitation: Status: Chronic Category: Medical Code(s): I07.1 - Rheumatic tricuspid insufficiency (8) Diabetes mellitus type 2 in obese: Status: Chronic Category: Medical Code(s): E11.69 - Type 2 diabetes mellitus with other specified complication; E66.9 - Obesity, unspecified (9) Obesity: Problem Comment: Class II Status: Chronic Qualifiers: Body mass index: BMI 40.0-44.9 Obesity classification: adult class 3 (BMI >= 40) Obesity type: due to excess calories Serious obesity comorbidity presence: with serious comorbidity Qualified Code(s): E66.813 - Obesity, class 3; Z68.41 - Body mass index [BMI] 40.0-44.9, adult Category: Medical Code(s): E66.9 - Obesity, unspecified (10) Atrial fibrillation: Status: Chronic Qualifiers: Atrial fibrillation type: longstanding persistent Qualified Code(s): I48.11 - Longstanding persistent atrial fibrillation Category: Medical Code(s): I48.91 - Unspecified atrial fibrillation (11) Cirrhosis of liver: Status: Chronic Qualifiers: Ascites presence: unspecified Hepatic cirrhosis type: unspecified hepatic cirrhosis Qualified Code(s): K74.60 - Unspecified cirrhosis of liver Category: Medical Code(s): K74.60 - Unspecified cirrhosis of liver Plan Rica Flannery is a 69-year-old female with a medical history significant for severe right heart failure/cor pulmonale from pulmonary hypertension, asplenia, paroxysmal A-fib, CAD, type 2 diabetes, anxiety/depression, GERD presents with dyspnea for follow-up with cardiology and pulmonology today. During her visit with cardiology, concern for patient's continued oxygen requirement and failure of adjustments to outpatient regimen. Discussed case with cardiology team, request admission for Bumex drip and aggressive diuresis. I agreed to admit to the stepdown unit for further inpatient care. Pulmonology and cardiology continue to assist with care. Showing improvement. Diuresing well. Down 15 L since admission. Holding Bumex this morning. Reevaluate this afternoon. Will initiate tadalafil today and monitor for tolerance. Anticipate discharge in the next day or 2 if tolerating oral diuretics and pulmonary hypertension meds. Problems addressed as follows: # Pulmonary hypertension with cor pulmonale # Severe RV failure with cor pulmonale # Severe tricuspid regurgitation # Acute on chronic HFpEF #Medication side effect Hypokalemia ? Patient has underlying pulmonary hypertension with concomitant cor pulmonale, possibly related to undiagnosed sleep apnea versus history of hypertension. - Reviewed right and left heart cath from [place], Consistent with primary pulmonary hypertension. Right heart failure severe. Pulmonary artery pressures equal to systemic pressures - Right heart cath performed 11/21, This shows severe pulmonary hypertension. Not classified as type II. Most consistent with type I pulmonary hypertension. - Holding Bumex drip today. Good response. Reevaluate administration of Bumex later today if not resuming tomorrow. - Bicarb improving at 43. Will complete 3 doses of acetazolamide. - Initiate tadalafil for pulmonary hypertension 20 mg daily. Monitor for tolerance - Potassium 3.1, BUN 21, creatinine 1.2. Slight bump in creatinine acceptable and expected with diuresis. - Goal sats greater than 90%, currently on 1L # Iron deficient anemia: Hemoglobin is remained stable. No signs of bleeding. transfusion threshold hemoglobin less than 8, repeat CBC, CMP, magnesium ordered for the morning #History of asplenia: Monitor closely for infection. Cirrhosis: Diagnosed on imaging during a previous visit, needs follow-up with GI as an outpatient. #Physical deconditioning #Depression ? Patient's recently. Had gone to rehab for therapy. Was participating well with PT and OT. Will reconsult PT and OT while admitted. ? Mood stable, continue home duloxetine 60 mg daily, nortriptyline 25 mg daily. - Melatonin 5 mg nightly for sleep Chronic medical problems: #Paroxysmal A-fib: Currently rate controlled. Continue home Eliquis 5 mg twice daily. Hold home metoprolol due to hypotension. #CAD: Holding aspirin and statin DNR/DNI DVT prophylaxis: Eliquis Cardiac diet
[2024-11-23] MEDS: TADALAFIL 20 MG 20 EACH PO (12:06)
[2024-11-23 12:47] LABS: Acanthocytes 1+; Hypochromasia 2+; Total Cells Counted 100
[2024-11-23] MEDS: POTASSIUM CHLORIDE 20MEQ TAB 40 MEQ PO ×3 (15:18→22:56)
--- NOTE | 2024-11-23 17:49 | PC.NURSE ---
AOX4, 2LNC FOR O2 SUPPORT. ATTEMPTED TO WEAN O2 SUPPORT BUT PT WAS UNABLE TO TOLERATE. [place]AU CATH REMOVED AND PUREWICK PLACED.
[2024-11-23] MEDS: MELATONIN 5MG TABLET 5 MG PO (20:01)
[2024-11-24] VITALS (9 sets, daily range): BP systolic 92–158; BP diastolic 43–67; PULSE 68–90; RESP 12–18; TEMP 36.6–37.1; O2SAT 94–97; BMI 41.8
--- NOTE | 2024-11-24 02:34 | PC.NURSE ---
Pt AOx4, pleasant. Tolerating 2L nasal cannula. Denies pain or any additional needs. Received last potassium replacement PO per protocol. Currently resting in bed with eyes closed. Respirations even and unlabored. Bed is low, locked, and call light is in reach.
[2024-11-24 06:31] LABS: Hematocrit 29.3 % (37.0-47.0); Hemoglobin 8.3 g/dL (12.2-16.2); Immature Granulocytes % 0.3 %; Mean Corpuscular HGB Conc 28.3 g/dL (31.8-35.4); Mean Corpuscular Hemoglobin 23.7 pg (27.0-31.2); Mean Corpuscular Volume 83.7 fl (81-99); Nucleated Red Blood Cells % 0 %; Platelet Count 519 K/mm3 (142-424); Red Blood Count 3.50 M/mm3 (4.20-5.40); Red Cell Distribution Width-SD 76.4 fL; White Blood Count 11.5 K/mm3 (4.8-10.8)
[2024-11-24 06:40] LABS: Magnesium 2.2 mg/dl (1.6-2.3)
[2024-11-24] MEDS: SENNOSIDES 8.6MG/DOCUSATE 50MG TABLET 1 TAB PO (08:08)
[2024-11-24] MEDS: APIXABAN 5MG TABLET 5 MG PO ×2 (08:08→20:58)
[2024-11-24] MEDS: FAMOTIDINE 20MG TABLET 20 MG PO (08:08)
[2024-11-24] MEDS: POLYETHYLENE GLYCOL 3350 17 GM PACKET PO (08:09)
[2024-11-24 08:19] LABS: RBC Morphology Normal; Total Cells Counted 100
--- NOTE | 2024-11-24 09:26 | P.PN_ITS ---
Subjective *Date: 11/24/24 *Time: 12:11 Interval history: No acute respiratory vents overnight. Patient admits to worsening cough with clear productive phlegm. Will follow-up Pulmonology Exam Inpatient Vital signs and Labs for Last 24 Hours: Temp Pulse Resp BP Pulse Ox O2 Del Method O2 Flow Rate 97.9 F 70 18 92/43 L 96 Room Air 2 11/24/24 07:38 11/24/24 08:00 11/24/24 07:38 11/24/24 07:38 11/24/24 07:38 11/24/24 07:38 11/24/24 06:45 Laboratory Results - last 24 hr 11/23/24 06:20: Total Counted 100, Neutrophils % (Manual) 67, Lymphocytes % (Manual) 16, Monocytes % (Manual) 10 H, Eosinophils % (Manual) 7 H, Nucleated RBCs 2, Platelet Estimate Slight increase, RBC Morphology Not Reportable, Hypochromasia 2+, Acanthocytes (Spur) 1+ 11/24/24 05:45: WBC 11.5 H, RBC 3.50 L, Hgb 8.3 L, Hct 29.3 L, MCV 83.7, MCH 23.7 L, MCHC 28.3 L, RDW 25.4 H*, Plt Count 519 H, MPV 11.2 H, Neut % (Auto) 65.9, Lymph % (Auto) 12.7, [place] % (Auto) 14.3 H, Eos % (Auto) 5.6, Baso % (Auto) 1.2, Neut # (Auto) 7.6, Lymph # (Auto) 1.5, [place] # (Auto) 1.7 H, Eos # (Auto) 0.7 H, Baso # (Auto) 0.1, Total Counted 100, Neutrophils % (Manual) 71, Lymphocytes % (Manual) 15, Monocytes % (Manual) 10 H, Eosinophils % (Manual) 4 H , Platelet Estimate Slight increase, RBC Morphology Normal, Magnesium 2.2 Temp Pulse Resp BP Pulse Ox O2 Del Method O2 Flow Rate 98.4 F 76 17 132/77 96 Nasal Cannula 2 11/19/24 04:00 11/19/24 06:30 11/19/24 06:30 11/19/24 06:00 11/19/24 06:30 11/19/24 06:30 11/19/24 06:30 Laboratory Results - last 24 hr 11/18/24 15:52: WBC 11.4 H, RBC 3.66 L, Hgb 8.8 L, Hct 30.4 L, MCV 83.1, MCH 24.0 L, MCHC 28.9 L, RDW 26.7 H*, Plt Count 417, MPV 10.3, Neut % (Auto) 66.2, Lymph % (Auto) 12.2, [place] % (Auto) 13.6 H, Eos % (Auto) 6.6, Baso % (Auto) 1.0, Neut # (Auto) 7.6, Lymph # (Auto) 1.4, [place] # (Auto) 1.6 H, Eos # (Auto) 0.8 H, Baso # (Auto) 0.1, Total Counted 100, Neutrophils % (Manual) 67, Lymphocytes % (Manual) 14, Monocytes % (Manual) 13 H, Eosinophils % (Manual) 5 H, Basophils % (Manual) 1.0, Platelet Estimate Slight increase, Giant Platelets 1+, Polychromasia 1+, Hypochromasia 1+, Poikilocytosis 1+, Anisocytosis 1+, Microcytosis 1+, Macrocytosis 1+, Target Cells 1+, Tear Drop Cells 1+, Filiberto Cells 1+, Sodium 137, Potassium 3.3 L, Chloride 89 L, Carbon Dioxide 39 H, Anion Gap 12.3, BUN 18 H, Creatinine 1.00, Estimated Creat Clear 45, Estimated GFR 55 L, Est GFR ( Amer) 66, Glucose 109 H, Calcium 9.1, Magnesium 2.0, Total Bilirubin 0.9, AST 23, ALT 13, Alkaline Phosphatase 208 H, Troponin I 0.02, NT-Pro-B Natriuret Pep 3830 H, Total Protein 7.3, Albumin 3.7, Globulin 3.6 H, Albumin/Globulin Ratio 1.0 L 11/19/24 05:33: WBC 9.6, RBC 3.46 L, Hgb 8.3 L, Hct 28.6 L, MCV 82.7, MCH 24.0 L , MCHC 29.0 L, RDW 26.8 H*, Plt Count 386, MPV 10.4, Neut % (Auto) 63.9, Lymph % (Auto) 13.8, [place] % (Auto) 13.5 H, Eos % (Auto) 7.3, Baso % (Auto) 1.1, Neut # (Auto) 6.1, Lymph # (Auto) 1.3, [place] # (Auto) 1.3 H, Eos # (Auto) 0.7 H, Baso # (Auto) 0.1, Sodium 136, Potassium 3.4 L, Chloride 91 L, BUN 16, Creatinine 0.90, Estimated Creat Clear 45, Estimated GFR 62, Est GFR ( Amer) 75, Glucose 154 H D, Calcium 8.3 L, Magnesium 1.9, Total Bilirubin 0.7, AST 23, ALT 11 L, A lkaline Phosphatase 175 H, Total Protein 6.7, Albumin 3.3 L D, Globulin 3.4 H, Albumin/Globulin Ratio 1.0 L I & O for Labs for Last 24 Hours: Intake & Output 11/21/24 11/22/24 11/23/24 11/24/24 23:59 23:59 23:59 23:59 Intake Total 1097.167 / 5229.336 8677 / 2220 1953.333 / 1953.333 Output Total 4850 / 5700 2950 / 5500 5300 / 5700 1200 / 1200 Balance -3752.833 / -4122.833 -730 / -3280 -3346.667 / -3746.667 -1200 / -1200 Weight 255 lb 11.2 oz 240 lb 9.6 oz 240 lb 245 lb 3.2 oz Intake & Output 11/16/24 11/17/24 11/18/24 11/19/24 23:59 23:59 23:59 23:59 Intake Total 240 / 240 81.333 / 81.333 Output Total 1151 / 1601 1350 / 1350 Balance -911 / -1361 -1268.667 / -1268.667 Weight 256 lb 2.834 oz 257 lb 15.053 oz Constitutional: Present moderate distress Head: Present normocephalic and atraumatic ENT: Present normal exam, normal oropharynx and mucous membranes moist Neck: Present normal inspection and full ROM Respiratory: Present respiratory distress and able to speak in complete sentences; Absent prolonged expiratory phase, rhonchi, wheezes or diminished air movement Cardiac: Present S1/S2, Tachycardia and radial pulses present GI: Present soft and distention; Absent tenderness or guarding Rectal (female): Present deferred (female): Present deferred Skin: Present intact; Absent cyanosis or jaundice Neuro: Present alert, awake and oriented x 3 Extremities: Present normal inspection and edema; Absent clubbing or cyanosis Psychiatric: Present normal affect and cooperative Assessment and Plan *Assessment and plan (1) Pulmonary hypertension: Status: Chronic Category: Medical Code(s): I27.20 - Pulmonary hypertension, unspecified (2) Acute and chronic respiratory failure with hypoxia: Status: Acute Category: Medical Code(s): J96.21 - Acute and chronic respiratory failure with hypoxia Plan Ms. Flannery is a 69 year-old female no significant smoking history, obesity, high risk for sleep apnea recently had a diagnosis of pulmonary hypertension status post right heart cath showed pulmonary hypertension with increased PVR at 12 ureña which also showed to have elevated wedge pressure at 18 initiated on a combination of Tadanafil and Macicentan for her pulmonary arterial hypertension, since then having frequent hospital admissions for worsening respiratory distress hypertension dizziness and volume overload recently discharged from the hospital after volume optimization presented worsening respiratory distress and pulmonary was called for further evaluation and management. Patient CT abdomen findings are also consistent with cirrhosis. Child-Cruz score A. Chest x-ray no dense consolidative/airspace changes. Daytime blood gas consistent with obesity hypoventilation syndrome. Cannot completely rule out concomitant sleep apnea given her morbid obesity. Interval update: No No acute respiratory events overnight. Right heart cath 11/21/2024 PCWP at 18. PA at 92 x 38 with a mean of 56 mmHg, with PVR at 12 ureña. Continue to receive diuretics for volume optimization. Plan: Continue Tadanafil 20mg daily. Consider midodrine if if noted to have a hypotensive state especially in setting of her cirrhosis Continue volume optimization and management for other comorbidities contributing to her type III PH. Continue oxygen supplementation to maintain O2 saturation goal of 90% and above, needing 1 to 2 L nasal cannula Follow-up with GI as an outpatient basis for her abnormal CT finding consistent with cirrhosis. Patient is due to undergo sleep study as an outpatient basis. Will schedule lab polysomnography testing. For now continue oxygen supplementation also at night to maintain O2 saturation goal of 90% and above She continue to receive Eliquis twice daily for her paroxysmal A-fib.
[2024-11-24] MEDS: TADALAFIL 20 MG 20 EACH PO (13:15)
[2024-11-24 14:27] LABS: Adenovirus,PCR Not Detected (NotDetected); Chlamydophila Pneumoniae, PCR Not Detected (NotDetected); Coronavirus 19, PCR Not Detected (NotDetected); Coronovirus HKU1,PCR Not Detected (NotDetected); Influenza A, PCR Not Detected (NotDetected); Influenza AH1, 2009 Not Detected (NotDetected); Influenza AH1, PCR Not Detected (NotDetected); Influenza AH3,PCR Not Detected (NotDetected); Influenza B, PCR Not Detected (NotDetected); Mycoplasma Pneumoniae, PCR Not Detected (NotDetected); Parainfluenza 1, PCR Not Detected (NotDetected); Parainfluenza 2, PCR Not Detected (NotDetected); Parainfluenza 3, PCR Not Detected (NotDetected); Parainfluenza 4, PCR Not Detected (NotDetected)
--- NOTE | 2024-11-24 16:43 | EXP.PN ---
Subjective *Date: 11/24/24 *Time: 16:43 Interval history: Patient feels better today. Will continue with tadalafil, follow-up orthostatics and walk test. Consider midodrine if patient becomes hypotensive. Exam Data for Last 24 hours Vital signs and Labs for Last 24 Hours: Temp Pulse Resp BP Pulse Ox O2 Del Method O2 Flow Rate 98.2 F 82 18 112/57 L 95 Nasal Cannula 2 11/24/24 16:00 11/24/24 16:00 11/24/24 16:00 11/24/24 16:00 11/24/24 16:00 11/24/24 16:00 11/24/24 16:00 Laboratory Results - last 24 hr 11/24/24 05:45: WBC 11.5 H, RBC 3.50 L, Hgb 8.3 L, Hct 29.3 L, MCV 83.7, MCH 23.7 L, MCHC 28.3 L, RDW 25.4 H*, Plt Count 519 H, MPV 11.2 H, Neut % (Auto) 65.9, Lymph % (Auto) 12.7, [place] % (Auto) 14.3 H, Eos % (Auto) 5.6, Baso % (Auto) 1.2, Neut # (Auto) 7.6, Lymph # (Auto) 1.5, [place] # (Auto) 1.7 H, Eos # (Auto) 0.7 H, Baso # (Auto) 0.1, Total Counted 100, Neutrophils % (Manual) 71, Lymphocytes % (Manual) 15, Monocytes % (Manual) 10 H, Eosinophils % (Manual) 4 H, Platelet Estimate Slight increase, RBC Morphology Normal, Magnesium 2.2 I & O for Last 24 hours: Intake & Output 11/21/24 11/22/24 11/23/24 11/24/24 23:59 23:59 23:59 23:59 Intake Total 1097.167 / 8361.202 6440 / 2220 1953.333 / 1953.333 960 / 960 Output Total 4850 / 5700 2950 / 5500 5300 / 5700 1750 / 1750 Balance -3752.833 / -4122.833 -730 / -3280 -3346.667 / -3746.667 -790 / -790 Weight 115.984 kg 109.134 kg 108.862 kg 111.221 kg Constitutional Constitutional: no acute distress and cooperative *Routine HEENT Exam Eye: Present PERRL *Routine Respiratory Exam Respiratory: Present CTA bilaterally; Absent accessory muscle use, wheezes or crackles *Routine Cardiovascular Exam Cardiovascular: Present RRR, Normal S1 and Normal S2; Absent murmur, gallop or rubs *Routine Abdominal Exam Abdominal: Present soft; Absent tenderness *Routine Extremities Exam Extremities: Present pulses intact; Absent cyanosis or edema Comments: Edema improving *Routine Skin Exam Skin: Present intact; Absent erythema or wounds *Routine Neurological Exam Neurological: Present alert and oriented X3 Routine Psychiatric Exam Psychiatric: Present cooperative Assessment and Plan *Assessment and plan (1) (HFpEF) heart failure with preserved ejection fraction: Status: Acute Qualifiers: Heart failure chronicity: acute on chronic Qualified Code(s): I50.33 - Acute on chronic diastolic (congestive) heart failure Category: Medical Code(s): I50.30 - Unspecified diastolic (congestive) heart failure (2) Cor pulmonale: Status: Acute Category: Medical Code(s): I27.81 - Cor pulmonale (chronic) (3) Hyponatremia: Status: Acute Category: Medical Code(s): E87.1 - Hypo-osmolality and hyponatremia (4) Primary pulmonary hypertension: Problem Comment: Type I pulmonary hypertension Status: Chronic Category: Medical Code(s): I27.0 - Primary pulmonary hypertension (5) Hypertension: Status: Chronic Qualifiers: Hypertension type: primary hypertension Qualified Code(s): I10 - Essential (primary) hypertension Category: Medical Code(s): I10 - Essential (primary) hypertension (6) Asplenia: Status: Chronic Category: Medical Code(s): Q89.01 - Asplenia (congenital) (7) Severe tricuspid regurgitation: Status: Chronic Category: Medical Code(s): I07.1 - Rheumatic tricuspid insufficiency (8) Diabetes mellitus type 2 in obese: Status: Chronic Category: Medical Code(s): E11.69 - Type 2 diabetes mellitus with other specified complication; E66.9 - Obesity, unspecified (9) Obesity: Problem Comment: Class II Status: Chronic Qualifiers: Obesity type: due to excess calories Obesity classification: adult class 3 (BMI >= 40) Serious obesity comorbidity presence: with serious comorbidity Body mass index: BMI 40.0-44.9 Qualified Code(s): E66.813 - Obesity, class 3; Z68.41 - Body mass index [BMI] 40.0-44.9, adult Category: Medical Code(s): E66.9 - Obesity, unspecified (10) Atrial fibrillation: Status: Chronic Qualifiers: Atrial fibrillation type: longstanding persistent Qualified Code(s): I48.11 - Longstanding persistent atrial fibrillation Category: Medical Code(s): I48.91 - Unspecified atrial fibrillation (11) Cirrhosis of liver: Status: Chronic Qualifiers: Hepatic cirrhosis type: unspecified hepatic cirrhosis Ascites presence: unspecified Qualified Code(s): K74.60 - Unspecified cirrhosis of liver Category: Medical Code(s): K74.60 - Unspecified cirrhosis of liver Plan Rica Flannery is a 69-year-old female with a medical history significant for severe right heart failure/cor pulmonale from pulmonary hypertension, asplenia, paroxysmal A-fib, CAD, type 2 diabetes, anxiety/depression, GERD presents with dyspnea for follow-up with cardiology and pulmonology. Admitted for recurrent HFpEF exacerbation, and further optimization of pulmonary hypertension medications. #Pulmonary hypertension with cor pulmonale #Severe RV failure with cor pulmonale #Severe tricuspid regurgitation #Acute on chronic HFpEF #Medication side effect #Hypokalemia ? Patient has underlying pulmonary hypertension with concomitant cor pulmonale, possibly related to undiagnosed sleep apnea versus history of hypertension. ? RHC on 11/21/2024 at her facility consistent with severe pulmonary hypertension. Not classified as type II. Most consistent with type III pulmonary hypertension per pulmonology. ? Discussed with pulmonology on admission, recommended discontinue macitentan due to suspicion of a contributing to recurrent HFpEF exacerbations. ? Diuresed with Bumex drip during admission, net -16 L. Will hold on diuretics today due to soft pressures, reconsider tomorrow. ? Continue tadalafil 20 mg, systolics in the 90s this morning improved to 112/57 this afternoon. Will monitor blood pressures overnight, and after discussing with pulmonology, will consider starting midodrine if patient becomes hypotensive or symptomatic. ? Follow-up on orthostatic vitals, walk test today. ? Potassium 3.1, replete per protocol. - Currently on 2 L nasal cannula, wean as tolerated. # Iron deficient anemia: Hemoglobin has remained stable. No signs of bleeding. transfusion threshold hemoglobin less than 8, repeat CBC, CMP, magnesium ordered for the morning #History of asplenia: Monitor closely for infection. #Cirrhosis: Diagnosed on imaging during a previous visit, has been evaluated by GI and recommends advanced MRI in [place] to further evaluate cirrhotic like changes on CT. This is being set up. #Physical deconditioning #Depression ? Patient's recently. Had gone to rehab for therapy. Was participating well with PT and OT. Will reconsult PT and OT while admitted. ? Mood stable, continue home duloxetine 60 mg daily, nortriptyline 25 mg daily. - Melatonin 5 mg nightly for sleep Chronic medical problems: #Paroxysmal A-fib: Currently rate controlled. Continue home Eliquis 5 mg twice daily. Hold home metoprolol due to hypotension. #CAD: Holding aspirin and statin DNR/DNI DVT prophylaxis: Eliquis Cardiac diet
--- NOTE | 2024-11-24 18:50 | PC.NURSE ---
aox4, sat up to chair for most of shift and tolerated well. 2lnc for o2 support.
[2024-11-24] MEDS: MELATONIN 5MG TABLET 5 MG PO (20:58)
[2024-11-25] VITALS (9 sets, daily range): BP systolic 111–146; BP diastolic 43–76; PULSE 61–98; RESP 16–18; TEMP 36.4–36.9; O2SAT 94–100; BMI 42.4; BMI 40.1
--- NOTE | 2024-11-25 03:50 | PC.NURSE ---
Patient is alert and oriented x4. She was observed to be resting in bed with eyes closed, respirations even and unlabored on 2 L of oxygen via nasal cannula (continuing to require), and no apparent distress throughout the night. Oxygen saturations remain > 90%. Patient has not had any complaints of pain, difficulty with breathing, shortness of breath, nausea, dizziness, etc. this shift. States she feels fine. Diminished lung sounds, irregular heart rhythm, and active bowel sounds heard upon auscultation. On telemetry + continuous pulse ox. Loose, nonproductive cough reported. Unsure of when last bowel movement occurred (> 3 days, a while ago ). Abdomen is soft but slightly firm, large and rounded in appearance. A female purewick is in place for urination needs/to monitor urinary output (see I&O documentation). Urine appearance dark yellow and slightly cloudy. Swelling (+2) noted to bilateral lower extremities; legs are elevated. Extra pillows provided for cushioning and comfort. Repositioned per patient request/refusals made. Patient gets up and ambulates with assistance. Skin issues documented in biophysical for this shift. Scheduled medications were administered per MAR. On electrolyte replacement protocol. At this time, the patient is resting supine in bed without any new needs vocalized. Call light is within reach. Home medications locked in [facility].
[2024-11-25 06:19] LABS: Hematocrit 29.2 % (37.0-47.0); Hemoglobin 8.1 g/dL (12.2-16.2); Immature Granulocytes % 0.5 %; Mean Corpuscular HGB Conc 27.7 g/dL (31.8-35.4); Mean Corpuscular Hemoglobin 23.3 pg (27.0-31.2); Mean Corpuscular Volume 83.9 fl (81-99); Nucleated Red Blood Cells % 0 %; Platelet Count 478 K/mm3 (142-424); Red Blood Count 3.48 M/mm3 (4.20-5.40); Red Cell Distribution Width-SD 75.0 fL; White Blood Count 10.9 K/mm3 (4.8-10.8)
[2024-11-25 06:25] LABS: Albumin Level 3.1 g/dl (3.5-5.0); Chloride 92 mmol/L (98-107); Potassium 3.3 mmoL/L (3.5-5.1); Sodium 135 mmol/L (136-145)
[2024-11-25 06:28] LABS: Alanine Aminotransferase 10 U/L (12-78); Albumin/Globulin Ratio 0.8 (1.1-1.8); Alkaline Phosphatase 156 U/L (38-126); Anion Gap 9.3 mEq/L (5-15); Aspartate Amino Transferase 20 U/L (14-36); Bilirubin,Total 0.5 mg/dl (0.2-1.3); Blood Urea Nitrogen 24 mg/dl (7-17); Calcium 9.3 mg/dl (8.4-10.2); Carbon Dioxide 37 mmol/L (22.0-30.0); Creatinine Clearance Estimated 37 mL/min (50-200); Creatinine,Serum 1.20 mg/dl (0.52-1.04); Estimated Glomerular Filt Rate 44 ml/min (>60); GFR (African American) 54 ML/MIN (>60); Globulin 3.8 g/dL (1.3-3.2); Glucose 150 mg/dl (74-100); Total Protein,Serum 6.9 g/dl (6.3-8.2)
[2024-11-25 07:07] LABS: Magnesium 2.3 mg/dl (1.6-2.3)
[2024-11-25] MEDS: POTASSIUM CHLORIDE 20MEQ TAB 40 MEQ PO ×2 (09:23→12:56)
[2024-11-25] MEDS: BUMETANIDE 1 MG TABLET 2 MG PO (09:23)
[2024-11-25] MEDS: SENNOSIDES 8.6MG/DOCUSATE 50MG TABLET 1 TAB PO (09:25)
[2024-11-25] MEDS: FAMOTIDINE 20MG TABLET 20 MG PO (09:25)
[2024-11-25] MEDS: APIXABAN 5MG TABLET 5 MG PO ×2 (09:25→20:19)
[2024-11-25] MEDS: POLYETHYLENE GLYCOL 3350 17 GM PACKET PO (09:25)
[2024-11-25] MEDS: TADALAFIL 20 MG 20 EACH PO (09:25)
--- NOTE | 2024-11-25 09:45 | P.PN_ITS ---
Subjective *Date: 11/25/24 *Time: 11:02 Interval history: No acute respiratory events overnight. Patient denies any new respiratory complaints. Pulmonology Exam Inpatient Vital signs and Labs for Last 24 Hours: Temp Pulse Resp BP Pulse Ox O2 Del Method O2 Flow Rate 98.3 F 98 H 16 133/76 96 Nasal Cannula 2 11/25/24 07:37 11/25/24 08:52 11/25/24 07:37 11/25/24 08:52 11/25/24 07:37 11/25/24 07:37 11/25/24 07:37 Laboratory Results - last 24 hr 11/24/24 14:22: Chlamy pneumoniae PCR Not detected, Adenovirus (PCR) Not detected, B. pertussis DNA (PCR) Not detected, Coronavirus OC43 (PCR) Not detected, Coronavirus HKU1 (PCR) Not detected, Coronavirus 229E (PCR) Not detected, SARS-CoV-2 (PCR) Not detected, Coronavirus NL63 (PCR) Not detected, Human Metapneumovir PCR Not detected, Influenza A (H1) PCR Not detected, Influ A (H1N1/09) PCR Not detected, Influenza A (H3) PCR Not detected, Influenza Type A (PCR) Not detected, Influenza Type B (PCR) Not detected, M. pneumoniae (PCR) Not detected, Parainfluenza 1 (PCR) Not detected, Parainfluenza 2 (PCR) Not detected, Parainfluenza 3 (PCR) Not detected, Parainfluenza 4 (PCR) Not dete cted, RSV (PCR) Not detected, Entero/Rhino (PCR) Not detected 11/25/24 05:50: WBC 10.9 H, RBC 3.48 L, Hgb 8.1 L, Hct 29.2 L, MCV 83.9, MCH 23.3 L, MCHC 27.7 L, RDW 25.1 H*, Plt Count 478 H, MPV 10.4, Neut % (Auto) 66.5, Lymph % (Auto) 12.0, [place] % (Auto) 14.1 H, Eos % (Auto) 5.5, Baso % (Auto) 1.4, Neut # (Auto) 7.3, Lymph # (Auto) 1.3, [place] # (Auto) 1.5 H, Eos # (Auto) 0.6 H, Baso # (Auto) 0.2, Sodium 135 L, Potassium 3.3 L, Chloride 92 L, Carbon Dioxide 37 H, Anion Gap 9.3, BUN 24 H, Creatinine 1.20 H, Estimated Creat Clear 37, Estimated GFR 44 L, Est GFR ( Amer) 54 L, Glucose 150 H, Calcium 9.3, Magnesium 2.3, Total Bilirubin 0.5, AST 20, ALT 10 L, Alkaline Phosphatase 156 H , Total Protein 6.9, Albumin 3.1 L, Globulin 3.8 H, Albumin/Globulin Ratio 0.8 L Temp Pulse Resp BP Pulse Ox O2 Del Method O2 Flow Rate 98.4 F 76 17 132/77 96 Nasal Cannula 2 11/19/24 04:00 11/19/24 06:30 11/19/24 06:30 11/19/24 06:00 11/19/24 06:30 11/19/24 06:30 11/19/24 06:30 Laboratory Results - last 24 hr 11/18/24 15:52: WBC 11.4 H, RBC 3.66 L, Hgb 8.8 L, Hct 30.4 L, MCV 83.1, MCH 24.0 L, MCHC 28.9 L, RDW 26.7 H*, Plt Count 417, MPV 10.3, Neut % (Auto) 66.2, Lymph % (Auto) 12.2, [place] % (Auto) 13.6 H, Eos % (Auto) 6.6, Baso % (Auto) 1.0, Neut # (Auto) 7.6, Lymph # (Auto) 1.4, [place] # (Auto) 1.6 H, Eos # (Auto) 0.8 H, Baso # (Auto) 0.1, Total Counted 100, Neutrophils % (Manual) 67, Lymphocytes % (Manual) 14, Monocytes % (Manual) 13 H, Eosinophils % (Manual) 5 H, Basophils % (Manual) 1.0, Platelet Estimate Slight increase, Giant Platelets 1+, Polychromasia 1+, Hypochromasia 1+, Poikilocytosis 1+, Anisocytosis 1+, Microcytosis 1+, Macrocytosis 1+, Target Cells 1+, Tear Drop Cells 1+, [place] Cells 1+, Sodium 137, Potassium 3.3 L, Chloride 89 L, Carbon Dioxide 39 H, Anion Gap 12.3, BUN 18 H, Creatinine 1.00, Estimated Creat Clear 45, Estimated GFR 55 L, Est GFR ( Amer) 66, Glucose 109 H, Calcium 9.1, Magnesium 2.0, Total Bilirubin 0.9, AST 23, ALT 13, Alkaline Phosphatase 208 H, Troponin I 0.02, NT-Pro-B Natriuret Pep 3830 H, Total Protein 7.3, Albumin 3.7, Globulin 3.6 H, Albumin/Globulin Ratio 1.0 L 11/19/24 05:33: WBC 9.6, RBC 3.46 L, Hgb 8.3 L, Hct 28.6 L, MCV 82.7, MCH 24.0 L , MCHC 29.0 L, RDW 26.8 H*, Plt Count 386, MPV 10.4, Neut % (Auto) 63.9, Lymph % (Auto) 13.8, [place] % (Auto) 13.5 H, Eos % (Auto) 7.3, Baso % (Auto) 1.1, Neut # (Auto) 6.1, Lymph # (Auto) 1.3, [place] # (Auto) 1.3 H, Eos # (Auto) 0.7 H, Baso # (Auto) 0.1, Sodium 136, Potassium 3.4 L, Chloride 91 L, BUN 16, Creatinine 0.90, Estimated Creat Clear 45, Estimated GFR 62, Est GFR ( Amer) 75, Glucose 154 H D, Calcium 8.3 L, Magnesium 1.9, Total Bilirubin 0.7, AST 23, ALT 11 L, Alkaline Phosphatase 175 H, Total Protein 6.7, Albumin 3.3 L D, Globulin 3.4 H, Albumin/Globulin Ratio 1.0 L I & O for Labs for Last 24 Hours: Intake & Output 11/22/24 11/23/24 11/24/24 11/25/24 23:59 23:59 23:59 23:59 Intake Total 2220 / 2220 1953.333 / 4671.629 7078 / 1520 500 / 500 Output Total 2950 / 5500 5300 / 5700 1900 / 2125 225 / 225 Balance -730 / -3280 -3346.667 / -3746.667 -580 / -605 275 / 275 Weight 240 lb 9.6 oz 240 lb 245 lb 3.2 oz 248 lb 9 oz Intake & Output 11/16/24 11/17/24 11/18/24 11/19/24 23:59 23:59 23:59 23:59 Intake Total 240 / 240 81.333 / 81.333 Output Total 1151 / 1601 1350 / 1350 Balance -911 / -1361 -1268.667 / -1268.667 Weight 256 lb 2.834 oz 257 lb 15.053 oz Constitutional: Present moderate distress Head: Present normocephalic and atraumatic ENT: Present normal exam, normal oropharynx and mucous membranes moist Neck: Present normal inspection and full ROM Respiratory: Present respiratory distress and able to speak in complete sentences; Absent prolonged expiratory phase, rhonchi, wheezes or diminished air movement Cardiac: Present S1/S2, Tachycardia and radial pulses present GI: Present soft and distention; Absent tenderness or guarding Rectal (female): Present deferred (female): Present deferred Skin: Present intact; Absent cyanosis or jaundice Neuro: Present alert, awake and oriented x 3 Extremities: Present normal inspection and edema; Absent clubbing or cyanosis Psychiatric: Present normal affect and cooperative Assessment and Plan *Assessment and plan (1) Pulmonary hypertension: Status: Chronic Category: Medical Code(s): I27.20 - Pulmonary hypertension, unspecified (2) Acute and chronic respiratory failure with hypoxia: Status: Acute Category: Medical Code(s): J96.21 - Acute and chronic respiratory failure with hypoxia Plan Ms. Flannery is a 69 year-old female no significant smoking history, obesity, high risk for sleep apnea recently had a diagnosis of pulmonary hypertension status post right heart cath showed pulmonary hypertension with increased PVR at 12 ureña which also showed to have elevated wedge pressure at 18 initiated on a combination of Tadanafil and Macicentan for her pulmonary arterial hypertension, since then having frequent hospital admissions for worsening respiratory distress hypertension dizziness and volume overload recently discharged from the hospital after volume optimization presented worsening respiratory distress and pulmonary was called for further evaluation and management. Patient CT abdomen findings are also consistent with cirrhosis. Child-Cruz score A. Chest x-ray no dense consolidative/airspace changes. Daytime blood gas consistent with obesity hypoventilation syndrome. Cannot completely rule out concomitant sleep apnea given her morbid obesity. Right heart cath 11/21/2024 PCWP at 18. PA at 92 x 38 with a mean of 56 mmHg, with PVR at 12 ureña. Interval update: No No acute respiratory events overnight. Tolerating tadalafil 20 mg daily well with no evidence of hypotensive episodes. Continue to receive diuretics. Right heart cath from Sunday continue to show volume overload. Awaiting standing weights every day to determine if patient achieved her dry weight. Previous dry weight recorded at 220 pounds. Cardiology following. Plan: Continue Tadanafil 20mg daily. Tolerating well so far with no need for midodrine. Will hold off on initiating macitentan at this point of time given her PCWP being 18 on her RHC and evidence of volume overload. Continue volume optimization and management for other comorbidities contributing to her type III PH per cardiology. Continue oxygen supplementation to maintain O2 saturation goal of 90% and above, needing 1 to 2 L nasal cannula Follow-up with GI as an outpatient basis for her abnormal CT finding consistent with cirrhosis. Patient is due to undergo sleep study as an outpatient basis. Will schedule lab polysomnography testing. For now continue oxygen supplementation also at night to maintain O2 saturation goal of 90% and above She continue to receive Eliquis twice daily for her paroxysmal A-fib.
--- NOTE | 2024-11-25 11:33 | XR_ITS ---
FINAL REPORT TECHNIQUE: Single view chest CLINICAL HISTORY: HF, productive cough COMPARISON: 11/18/2024 FINDINGS: A single view of the chest was obtained. The heart and mediastinum are within normal limits. There is no significant change in left base opacity. Right base opacity has improved. No significant pleural effusion. There is no pneumothorax. IMPRESSION: Improved right base opacity with stable left base opacity. Reviewed, Interpreted and Dictated by Lisa Contreras MD Transcribed by Alexia Julian Authenticated and [facility]
[2024-11-25] MEDS: BUMETANIDE 1MG/4ML VIAL 2 MG IV ×2 (12:57→16:00)
--- NOTE | 2024-11-25 13:31 | P.PN_ITS ---
Subjective Subjective Date: 11/25/24 Time: 13:31 Principal diagnosis: Right heart failure/Pulm HTN Interval history: 69 yo WF in bedside chair with congested cough and still using supplemental oxygen. Asked to see her again this admission for diuretic recommendations in setting of right heart failure/Pulmonary HTN Patient has diuresed over 16 L this admission but still has edema in the legs and arms along with needing to use supplemental oxygen. Daughter is in the room and relates that the patient was walking without oxygen as recently as 2 months ago. Patient has been to and [facility] for evaluation for Tri clip procedure to help treat her right heart failure. Both times she felt like she was passed around and did not get any true answers. She was not approved for the Tri clip at [facility]. She recently underwent right heart catheterization this admission with results noted below: ANGIOGRAPHIC RESULTS Right atrial pressure 18 mmHg Right ventricular pressure 95/15 mmHg Pulmonary artery pressure 92/38 mmHg Pulmonary occlusion pressure 18 mmHg Right atrial saturation 44% Pulmonary artery pressure 44% Aortic saturation 97% Hemoglobin 8.2 Cardiac output 4.6 L/min IMPRESSION Severe pulmonary hypertension as described above Moderately elevated LVEDP PLAN 1. Continue diuresis 2. Patient's pulmonary hypertension cannot be explained by group 2 3. Consider evaluation at the [facility] pulmonary hypertension clinic under the care of Dr. Richard Anderson Electronically signed by : Luiz Morgan MD 11/21/2024 12:24:39 Exam Data for Last 24 hours Vital signs and Labs for Last 24 Hours: Temp Pulse Resp BP Pulse Ox O2 Del Method O2 Flow Rate 98.3 F 80 18 126/59 L 100 Nasal Cannula 1 11/25/24 11:34 11/25/24 12:00 11/25/24 11:34 11/25/24 11:34 11/25/24 11:34 11/25/24 11:34 11/25/24 11:34 Laboratory Results - last 24 hr 11/24/24 14:22: Chlamy pneumoniae PCR Not detected, Adenovirus (PCR) Not detected, B. pertussis DNA (PCR) Not detected, Coronavirus OC43 (PCR) Not detected, Coronavirus HKU1 (PCR) Not detected, Coronavirus 229E (PCR) Not detected, SARS-CoV-2 (PCR) Not detected, Coronavirus NL63 (PCR) Not detected, Human Metapneumovir PCR Not detected, Influenza A (H1) PCR Not detected, Influ A (H1N1/09) PCR Not detected, Influenza A (H3) PCR Not detected, Influenza Type A (PCR) Not detected, Influenza Type B (PCR) Not detected, M. pneumoniae (PCR) Not detected, Parainfluenza 1 (PCR) Not detected, Parainfluenza 2 (PCR) Not detected, Parainfluenza 3 (PCR) Not detected, Parainfluenza 4 (PCR) Not detected, RSV (PCR) Not detected, Entero/Rhino (PCR) Not detected 11/25/24 05:50: WBC 10.9 H, RBC 3.48 L, Hgb 8.1 L, Hct 29.2 L, MCV 83.9, MCH 23.3 L, MCHC 27.7 L, RDW 25.1 H*, Plt Count 478 H, MPV 10.4, Neut % (Auto) 66.5, Lymph % (Auto) 12.0, [place] % (Auto) 14.1 H, Eos % (Auto) 5.5, Baso % (Auto) 1.4, Neut # (Auto) 7.3, Lymph # (Auto) 1.3, [place] # (Auto) 1.5 H, Eos # (Auto) 0.6 H, Baso # (Auto) 0.2, Sodium 135 L, Potassium 3.3 L, Chloride 92 L, Carbon Dioxide 37 H, Anion Gap 9.3, BUN 24 H, Creatinine 1.20 H, Estimated Creat Clear 37, Estimated GFR 44 L, Est GFR ( Amer) 54 L, Glucose 150 H, Calcium 9.3, Magnesium 2.3, Total Bilirubin 0.5, AST 20, ALT 10 L, Alkaline Phosphatase 156 H , Total Protein 6.9, Albumin 3.1 L, Globulin 3.8 H, Albumin/Globulin Ratio 0.8 L I & O for Last 24 hours: Intake & Output 11/23/24 11/24/24 11/25/24 11/26/24 11:59 11:59 11:59 11:59 Intake Total 2323.333 / 2323.333 1350 / 1350 1220 / 1220 220 / 220 Output Total 6450 / 6450 1500 / 0 925 / 925 Balance -4126.667 / -4126.667 -150 / -700 295 / 295 220 / 220 Weight 240 lb 245 lb 3.2 oz 248 lb 9 oz 240 lb Constitutional Constitutional: no acute distress, chronically ill appearing and disheveled *Routine Respiratory Exam Respiratory: Present rhonchi and diminished air movement *Routine Cardiovascular Exam Cardiovascular: Present RRR and murmur; Absent gallop or rubs *Routine Extremities Exam Extremities: Present edema *Routine Neurological Exam Neurological: Present alert, oriented X3 and CN II-XII intact Progress Note: A&P Assessment and plan (1) Pulmonary hypertension: Status: Chronic (2) Acute and chronic respiratory failure with hypoxia: Status: Acute Assessment and Plan Assessment and Plan for All Diagnoses:: Acute on Chronic Right Heart Failure - severe primary PHtn, Severe RV Dilation, Severe TR - she is up 30lbs from dry weight this summer, always responds well to IV diuretics but thus far has had trouble continuing diuresis with oral meds post discharge resulting in numerous readmissions - recommend she stay on IV diuretics until she is back at dry weight - pt saw [facility] for RHC/LHC this summer. not a candidate for tri-clip. histor ically not tolerating PHtn meds due to hypotension - Patient has diuresed 16 L this admission. - Can Consider Cordella implant once she is out of the hospital for >30 days. - Holding Opsumit due to documented issues with worsening edema in some patients. - on Tadalafil PAF - rate controlled here - cont Eliquis - historically has not required antiarrhthmics and BP usually low so not on AV blockers for now Morbid Obesity, BMI 44 - baseline weight 220 per pt/family - continue diuresis. Continue IV bumex while monitoring for worsening renal status Previous dry wt of 220 may be unreachable simply by diuresis since patient has been largely sedentary related to hospitalizations and likely gained wt just by being sedentary. Recommendation is for referral to Dr. Richard Anderson at [facility] to evaluate for additional options for treatment.
[2024-11-25] MEDS: ACETAMINOPHEN 325MG TAB 650 MG PO (16:00)
--- NOTE | 2024-11-25 17:31 | PC.NURSE ---
Pt is A&Ox4. Vital signs stable tolerating baseline 2L NC. Potassium replaced per protocol. IV diuretics given with adequate urinary output. Pt has loose congested cough. Chest x-ray completed. Hospitalist notified that pt hasn't had a BM. Pt sat up in the chair all day. Pt has foam dressing to coccyx for prevention. Pt resting comfortably in chair with family at bedside with no further needs voiced at this time. Call light within reach.
[2024-11-25] MEDS: POLYETHYLENE GLYCOL 3350 17 GM PACKET 34 GM PO (18:07)
[2024-11-25] MEDS: BISACODYL 5MG TABLET 10 MG PO (18:07)
[2024-11-25] MEDS: MELATONIN 5MG TABLET 5 MG PO (20:19)
--- NOTE | 2024-11-25 22:43 | EXP.PN ---
Subjective *Date: 11/25/24 *Time: 22:43 Interval history: Patient states she feels about the same as yesterday, though slightly more symptomatic with more productive cough today. Discussed extensively with cardiology and pulmonology, will continue volume optimization. [employer] reaching out to [facility] for pulmonary hypertension clinic. Exam Data for Last 24 hours Vital signs and Labs for Last 24 Hours: Temp Pulse Resp BP Pulse Ox O2 Del Method O2 Flow Rate 98.5 F 83 16 136/60 95 Nasal Cannula 1 11/25/24 20:00 11/25/24 20:00 11/25/24 20:00 11/25/24 20:00 11/25/24 20:00 11/25/24 20:00 11/25/24 20:00 Laboratory Results - last 24 hr 11/25/24 05:50: WBC 10.9 H, RBC 3.48 L, Hgb 8.1 L, Hct 29.2 L, MCV 83.9, MCH 23.3 L, MCHC 27.7 L, RDW 25.1 H*, Plt Count 478 H, MPV 10.4, Neut % (Auto) 66.5, Lymph % (Auto) 12.0, [place] % (Auto) 14.1 H, Eos % (Auto) 5.5, Baso % (Auto) 1.4, Neut # (Auto) 7.3, Lymph # (Auto) 1.3, [place] # (Auto) 1.5 H, Eos # (Auto) 0.6 H, Baso # (Auto) 0.2, Sodium 135 L, Potassium 3.3 L, Chloride 92 L, Carbon Dioxide 37 H, Anion Gap 9.3, BUN 24 H, Creatinine 1.20 H, Estimated Creat Clear 37, Estimated GFR 44 L, Est GFR ( Amer) 54 L, Glucose 150 H, Calcium 9.3, Magnesium 2.3, Total Bilirubin 0.5, AST 20, ALT 10 L, Alkaline Phosphatase 156 H, Total Protein 6.9, Albumin 3.1 L, Globulin 3.8 H, Albumin/Globulin Ratio 0.8 L I & O for Last 24 hours: Intake & Output 11/22/24 11/23/24 11/24/24 11/25/24 23:59 23:59 23:59 23:59 Intake Total 2220 / 2220 1953.333 / 4327.281 5064 / 1520 1020 / 1020 Output Total 2950 / 5500 5300 / 5700 1900 / 2125 575 / 575 Balance -730 / -3280 -3346.667 / -3746.667 -580 / -605 445 / 445 Weight 109.134 kg 108.862 kg 111.221 kg 108.862 kg Constitutional Constitutional: no acute distress and cooperative *Routine HEENT Exam Eye: Present PERRL *Routine Respiratory Exam Respiratory: Present CTA bilaterally; Absent accessory muscle use, wheezes or crackles *Routine Cardiovascular Exam Cardiovascular: Present RRR, Normal S1 and Normal S2; Absent murmur, gallop or rubs *Routine Abdominal Exam Abdominal: Present soft; Absent tenderness *Routine Extremities Exam Extremities: Present edema and pulses intact; Absent cyanosis Comments: Bilateral lower extremity pitting edema 2+ *Routine Skin Exam Skin: Present intact; Absent erythema or wounds *Routine Neurological Exam Neurological: Present alert and oriented X3 Routine Psychiatric Exam Psychiatric: Present cooperative Assessment and Plan *Assessment and plan (1) (HFpEF) heart failure with preserved ejection fraction: Status: Acute Qualifiers: Heart failure chronicity: acute on chronic Qualified Code(s): I50.33 - Acute on chronic diastolic (congestive) heart failure Category: Medical Code(s): I50.30 - Unspecified diastolic (congestive) heart failure (2) Cor pulmonale: Status: Acute Category: Medical Code(s): I27.81 - Cor pulmonale (chronic) (3) Hyponatremia: Status: Acute Category: Medical Code(s): E87.1 - Hypo-osmolality and hyponatremia (4) Primary pulmonary hypertension: Problem Comment: Type I pulmonary hypertension Status: Chronic Category: Medical Code(s): I27.0 - Primary pulmonary hypertension (5) Hypertension: Status: Chronic Qualifiers: Hypertension type: primary hypertension Qualified Code(s): I10 - Essential (primary) hypertension Category: Medical Code(s): I10 - Essential (primary) hypertension (6) Asplenia: Status: Chronic Category: Medical Code(s): Q89.01 - Asplenia (congenital) (7) Severe tricuspid regurgitation: Status: Chronic Category: Medical Code(s): I07.1 - Rheumatic tricuspid insufficiency (8) Diabetes mellitus type 2 in obese: Status: Chronic Category: Medical Code(s): E11.69 - Type 2 diabetes mellitus with other specified complication; E66.9 - Obesity, unspecified (9) Obesity: Problem Comment: Class II Status: Chronic Qualifiers: Obesity type: due to excess calories Obesity classification: adult class 3 (BMI >= 40) Serious obesity comorbidity presence: with serious comorbidity Body mass index: BMI 40.0-44.9 Qualified Code(s): E66.813 - Obesity, class 3; Z68.41 - Body mass index [BMI] 40.0-44.9, adult Category: Medical Code(s): E66.9 - Obesity, unspecified (10) Atrial fibrillation: Status: Chronic Qualifiers: Atrial fibrillation type: longstanding persistent Qualified Code(s): I48.11 - Longstanding persistent atrial fibrillation Category: Medical Code(s): I48.91 - Unspecified atrial fibrillation (11) Cirrhosis of liver: Status: Chronic Qualifiers: Hepatic cirrhosis type: unspecified hepatic cirrhosis Ascites presence: unspecified Qualified Code(s): K74.60 - Unspecified cirrhosis of liver Category: Medical Code(s): K74.60 - Unspecified cirrhosis of liver Plan Rica Flannery is a 69-year-old female with a medical history significant for severe right heart failure/cor pulmonale from pulmonary hypertension, asplenia, paroxysmal A-fib, CAD, type 2 diabetes, anxiety/depression, GERD presents with dyspnea for follow-up with cardiology and pulmonology. Admitted for recurrent HFpEF exacerbation, and further optimization of pulmonary hypertension medications. #Pulmonary hypertension with cor pulmonale #Severe RV failure with cor pulmonale #Severe tricuspid regurgitation #Acute on chronic HFpEF #Medication side effect #Hypokalemia ? Patient has underlying pulmonary hypertension with concomitant cor pulmonale, possibly related to undiagnosed sleep apnea versus history of hypertension. ? RHC on 11/21/2024 at our facility consistent with severe pulmonary hypertension. Not classified as type II. Most consistent with type III pulmonary hypertension per pulmonology. ? Discussed with pulmonology on admission, recommended discontinue macitentan due to suspicion of a contributing to recurrent HFpEF exacerbations. ? Diuresed with Bumex drip during admission, net -16 L. ? Restarted Bumex 2 mg 3 times daily as patient slightly more symptomatic today, with productive cough and more fatigue. ? Continue tadalafil 20 mg. Will monitor blood pressures overnight, and after discussing with pulmonology, will consider starting midodrine if patient becomes hypotensive or symptomatic. ? Potassium 3.1, replete per protocol. - Currently on 2 L nasal cannula, wean as tolerated. ? Discussed extensively with cardiology and pulmonology, cardiology is reaching out to pulmonary hypertension clinic at [facility] for intensive pulmonary hypertension management. # Iron deficient anemia: Hemoglobin has remained stable. No signs of bleeding. transfusion threshold hemoglobin less than 8, repeat CBC, CMP, magnesium ordered for the morning #History of asplenia: Monitor closely for infection. #Cirrhosis: Diagnosed on imaging during a previous visit, has been evaluated by GI and recommends advanced MRI in [place] to further evaluate cirrhotic like changes on CT. This is being set up. #Physical deconditioning #Depression ? Patient's recently. Had gone to rehab for therapy. Was participating well with PT and OT. Will reconsult PT and OT while admitted. ? Mood stable, continue home duloxetine 60 mg daily, nortriptyline 25 mg daily. - Melatonin 5 mg nightly for sleep Chronic medical problems: #Paroxysmal A-fib: Currently rate controlled. Continue home Eliquis 5 mg twice daily. Hold home metoprolol due to hypotension. #CAD: Holding aspirin and statin DNR/DNI DVT prophylaxis: Eliquis Cardiac diet
[2024-11-26] VITALS (7 sets, daily range): BP systolic 102–144; BP diastolic 52–75; PULSE 70–81; RESP 16–18; TEMP 36.6–37.3; O2SAT 93–99; BMI 40.5
[2024-11-26] MEDS: BUMETANIDE 1MG/4ML VIAL 2 MG IV ×2 (00:49→10:01)
[2024-11-26 06:56] LABS: Hematocrit 28.6 % (37.0-47.0); Hemoglobin 8.3 g/dL (12.2-16.2); Immature Granulocytes % 0.5 %; Mean Corpuscular HGB Conc 29.0 g/dL (31.8-35.4); Mean Corpuscular Hemoglobin 24.2 pg (27.0-31.2); Mean Corpuscular Volume 83.4 fl (81-99); Nucleated Red Blood Cells % 0 %; Platelet Count 482 K/mm3 (142-424); Red Blood Count 3.43 M/mm3 (4.20-5.40); Red Cell Distribution Width-SD 74.4 fL; White Blood Count 8.8 K/mm3 (4.8-10.8)
[2024-11-26 06:59] LABS: Chloride 93 mmol/L (98-107); Sodium 137 mmol/L (136-145)
[2024-11-26 07:00] LABS: Albumin Level 3.2 g/dl (3.5-5.0); Potassium 3.5 mmoL/L (3.5-5.1)
[2024-11-26 07:02] LABS: Alanine Aminotransferase 10 U/L (12-78); Aspartate Amino Transferase 20 U/L (14-36)
[2024-11-26 07:03] LABS: Albumin/Globulin Ratio 0.8 (1.1-1.8); Alkaline Phosphatase 153 U/L (38-126); Anion Gap 10.5 mEq/L (5-15); Bilirubin,Total 0.5 mg/dl (0.2-1.3); Calcium 8.6 mg/dl (8.4-10.2); Carbon Dioxide 37 mmol/L (22.0-30.0); Globulin 3.8 g/dL (1.3-3.2); Glucose 113 mg/dl (74-100); Total Protein,Serum 7.0 g/dl (6.3-8.2)
[2024-11-26 08:33] LABS: Magnesium 2.1 mg/dl (1.6-2.3)
--- NOTE | 2024-11-26 09:17 | EXP.PULM.PN ---
Subjective *Date: 11/26/24 *Time: 12:19 Interval history: No acute respiratory events overnight. Cough improving. Pulmonology Exam Inpatient Vital signs and Labs for Last 24 Hours: Temp Pulse Resp BP Pulse Ox O2 Del Method O2 Flow Rate 98.5 F 76 18 102/75 L 93 L Nasal Cannula 2 11/26/24 07:46 11/26/24 07:46 11/26/24 07:46 11/26/24 07:46 11/26/24 07:46 11/26/24 07:46 11/26/24 07:46 Laboratory Results - last 24 hr 11/26/24 06:35: WBC 8.8, RBC 3.43 L, Hgb 8.3 L, Hct 28.6 L, MCV 83.4, MCH 24.2 L, MCHC 29.0 L, RDW 25.0 H, Plt Count 482 H, MPV 10.5 H, Neut % (Auto) 60.0, Lymph % (Auto) 14.7, [place] % (Auto) 14.5 H, Eos % (Auto) 8.8, Baso % (Auto) 1.5, Neut # (Auto) 5.3, Lymph # (Auto) 1.3, [place] # (Auto) 1.3 H, Eos # (Auto) 0.8 H, Baso # (Auto) 0.1, Sodium 137, Potassium 3.5, Chloride 93 L, Carbon Dioxide 37 H, Anion Gap 10.5, Glucose 113 H, Calcium 8.6, Total Bilirubin 0.5, AST 20, ALT 10 L, Alkaline Phosphatase 153 H, Total Protein 7.0, Albumin 3.2 L, Globulin 3.8 H, Albumin/Globulin Ratio 0.8 L Temp Pulse Resp BP Pulse Ox O2 Del Method O2 Flow Rate 98.4 F 76 17 132/77 96 Nasal Cannula 2 11/19/24 04:00 11/19/24 06:30 11/19/24 06:30 11/19/24 06:00 11/19/24 06:30 11/19/24 06:30 11/19/24 06:30 Laboratory Results - last 24 hr 11/18/24 15:52: WBC 11.4 H, RBC 3.66 L, Hgb 8.8 L, Hct 30.4 L, MCV 83.1, MCH 24.0 L, MCHC 28.9 L, RDW 26.7 H*, Plt Count 417, MPV 10.3, Neut % (Auto) 66.2, Lymph % (Auto) 12.2, [place] % (Auto) 13.6 H, Eos % (Auto) 6.6, Baso % (Auto) 1.0, Neut # (Auto) 7.6, Lymph # (Auto) 1.4, [place] # (Auto) 1.6 H, Eos # (Auto) 0.8 H, Baso # (Auto) 0.1, Total Counted 100, Neutrophils % (Manual) 67, Lymphocytes % (Manual) 14, Monocytes % (Manual) 13 H, Eosinophils % (Manual) 5 H, Basophils % (Manual) 1.0, Platelet Estimate Slight increase, Giant Platelets 1+, Polychromasia 1+, Hypochromasia 1+, Poikilocytosis 1+, Anisocytosis 1+, Microcytosis 1+, Macrocytosis 1+, Target Cells 1+, Tear Drop Cells 1+, Filiberto Cells 1+, Sodium 137, Potassium 3.3 L, Chloride 89 L, Carbon Dioxide 39 H, Anion Gap 12.3, BUN 18 H, Creatinine 1.00, Estimated Creat Clear 45, Estimated GFR 55 L, Est GFR ( Amer) 66, Glucose 109 H, Calcium 9.1, Magnesium 2.0, Total Bilirubin 0.9, AST 23, ALT 13, Alkaline Phosphatase 208 H, Troponin I 0.02, NT-Pro-B Natriuret Pep 3830 H, Total Protein 7.3, Albumin 3.7, Globulin 3.6 H, Albumin/Globulin Ratio 1.0 L 11/19/24 05:33: WBC 9.6, RBC 3.46 L, Hgb 8.3 L, Hct 28.6 L, MCV 82.7, MCH 24.0 L, MCHC 29.0 L, RDW 26.8 H*, Plt Count 386, MPV 10.4, Neut % (Auto) 63.9, Lymph % (Auto) 13.8, [place] % (Auto) 13.5 H, Eos % (Auto) 7.3, Baso % (Auto) 1.1, Neut # (Auto) 6.1, Lymph # (Auto) 1.3, [place] # (Auto) 1.3 H, Eos # (Auto) 0.7 H, Baso # (Auto) 0.1, Sodium 136, Potassium 3.4 L, Chloride 91 L, BUN 16, Creatinine 0.90, Estimated Creat Clear 45, Estimated GFR 62, Est GFR ( Amer) 75, Glucose 154 H D, Calcium 8.3 L, Magnesium 1.9, Total Bilirubin 0.7, AST 23, ALT 11 L, Alkaline Phosphatase 175 H, Total Protein 6.7, Albumin 3.3 L D, Globulin 3.4 H, Albumin/Globulin Ratio 1.0 L I & O for Labs for Last 24 Hours: Intake & Output 11/23/24 11/24/24 11/25/24 11/26/24 23:59 23:59 23:59 23:59 Intake Total 1953.333 / 8152.672 5150 / 1520 1020 / 1070 410 / 410 Output Total 5300 / 5700 1900 / 2125 575 / 575 200 / 200 Balance -3346.667 / -3746.667 -580 / -605 445 / 495 210 / 210 Weight 240 lb 245 lb 3.2 oz 240 lb 243 lb 1.6 oz Intake & Output 11/16/24 11/17/24 11/18/24 11/19/24 23:59 23:59 23:59 23:59 Intake Total 240 / 240 81.333 / 81.333 Output Total 1151 / 1601 1350 / 1350 Balance -911 / -1361 -1268.667 / -1268.667 Weight 256 lb 2.834 oz 257 lb 15.053 oz Constitutional: Present moderate distress Head: Present normocephalic and atraumatic ENT: Present normal exam, normal oropharynx and mucous membranes moist Neck: Present normal inspection and full ROM Respiratory: Present respiratory distress and able to speak in complete sentences; Absent prolonged expiratory phase, rhonchi, wheezes or diminished air movement Cardiac: Present S1/S2, Tachycardia and radial pulses present GI: Present soft and distention; Absent tenderness or guarding Rectal (female): Present deferred (female): Present deferred Skin: Present intact; Absent cyanosis or jaundice Neuro: Present alert, awake and oriented x 3 Extremities: Present normal inspection and edema; Absent clubbing or cyanosis Psychiatric: Present normal affect and cooperative Assessment and Plan *Assessment and plan (1) Pulmonary hypertension: Status: Chronic Category: Medical Code(s): I27.20 - Pulmonary hypertension, unspecified (2) Acute and chronic respiratory failure with hypoxia: Status: Acute Category: Medical Code(s): J96.21 - Acute and chronic respiratory failure with hypoxia Plan Ms. Flannery is a 69 year-old female no significant smoking history, obesity, high risk for sleep apnea recently had a diagnosis of pulmonary hypertension status post right heart cath showed pulmonary hypertension with increased PVR at 12 ureña which also showed to have elevated wedge pressure at 18 initiated on a combination of Tadanafil and Macicentan for her pulmonary arterial hypertension, since then having frequent hospital admissions for worsening respiratory distress hypertension dizziness and volume overload recently discharged from the hospital after volume optimization presented worsening respiratory distress and pulmonary was called for further evaluation and management. Patient CT abdomen findings are also consistent with cirrhosis. Child-Cruz score A. Chest x-ray no dense consolidative/airspace changes. Daytime blood gas consistent with obesity hypoventilation syndrome. Cannot completely rule out concomitant sleep apnea given her morbid obesity. Right heart cath 11/21/2024 PCWP at 18. PA at 92 x 38 with a mean of 56 mmHg, with PVR at 12 ureña. Interval update: No acute respiratory events overnight. Continued to needing 1 to 2 L nasal cannula to mentation. Denies any overt Continue to receive tadalafil 20 mg daily. Creatinine relatively stable at 1.20 prior. Repeat labs pending. Continue to diurese. Cardiology following. Continue to hold macitentan given concerning recurrent admissions for volume overload. Continue to receive tadalafil, tolerating well. Plan: Continue Tadanafil 20mg daily. Continue volume optimization and management for other comorbidities contributing to her type III PH per cardiology. Continue oxygen supplementation to maintain O2 saturation goal of 90% and above, needing 1 to 2 L nasal cannula Follow-up with GI as an outpatient basis for her abnormal CT finding consistent with cirrhosis. Patient is due to undergo sleep study as an outpatient basis. Will schedule lab polysomnography testing. For now continue oxygen supplementation also at night to maintain O2 saturation goal of 90% and above She continue to receive Eliquis twice daily for her paroxysmal A-fib.
[2024-11-26] MEDS: APIXABAN 5MG TABLET 5 MG PO ×2 (09:20→20:18)
[2024-11-26] MEDS: FAMOTIDINE 20MG TABLET 20 MG PO (09:21)
[2024-11-26] MEDS: TADALAFIL 20 MG 20 EACH PO (09:21)
[2024-11-26] MEDS: POTASSIUM CHLORIDE 20MEQ TAB 40 MEQ PO ×2 (09:21→12:30)
[2024-11-26] MEDS: SENNOSIDES 8.6MG/DOCUSATE 50MG TABLET 1 TAB PO (09:21)
[2024-11-26] MEDS: POLYETHYLENE GLYCOL 3350 17 GM PACKET PO (09:30)
--- NOTE | 2024-11-26 09:51 | P.PN_ITS ---
Subjective Subjective Date: 11/26/24 Time: 08:30 Principal diagnosis: Right heart failure/Pulm HTN Interval history: Patient denies chest pain. She continues to report sob and to require oxygen. Morning labs reviewed, creatinine is pending. UOP has decreased. Exam Data for Last 24 hours Vital signs and Labs for Last 24 Hours: Temp Pulse Resp BP Pulse Ox O2 Del Method O2 Flow Rate 98.5 F 70 18 102/75 L 93 L Nasal Cannula 2 11/26/24 07:46 11/26/24 08:00 11/26/24 07:46 11/26/24 07:46 11/26/24 07:46 11/26/24 07:46 11/26/24 07:46 Laboratory Results - last 24 hr 11/26/24 06:35: WBC 8.8, RBC 3.43 L, Hgb 8.3 L, Hct 28.6 L, MCV 83.4, MCH 24.2 L , MCHC 29.0 L, RDW 25.0 H, Plt Count 482 H, MPV 10.5 H, Neut % (Auto) 60.0, Lymph % (Auto) 14.7, [place] % (Auto) 14.5 H, Eos % (Auto) 8.8, Baso % (Auto) 1.5, Neut # (Auto) 5.3, Lymph # (Auto) 1.3, [place] # (Auto) 1.3 H, Eos # (Auto) 0.8 H, Baso # (Auto) 0.1, Sodium 137, Potassium 3.5, Chloride 93 L, Carbon Dioxide 37 H , Anion Gap 10.5, Glucose 113 H, Calcium 8.6, Total Bilirubin 0.5, AST 20, ALT 10 L, Alkaline Phosphatase 153 H, Total Protein 7.0, Albumin 3.2 L, Globulin 3.8 H, Albumin/Globulin Ratio 0.8 L 11/26/24 : Magnesium 2.1 I & O for Last 24 hours: Intake & Output 11/23/24 11/24/24 11/25/24 11/26/24 23:59 23:59 23:59 23:59 Intake Total 3.333 / 4613.030 3952 / 1520 1020 / 1070 410 / 410 Output Total 5300 / 5700 1900 / 2125 575 / 575 200 / 200 Balance -3346.667 / -3746.667 -580 / -605 445 / 495 210 / 210 Weight 240 lb 245 lb 3.2 oz 240 lb 243 lb 1.6 oz Constitutional Constitutional: no acute distress *Routine Respiratory Exam Respiratory: Present crackles and symmetric chest movement Comments: bilateral crackles at lung bases. *Routine Cardiovascular Exam Cardiovascular: Present RRR, Normal S1 and Normal S2 *Routine Abdominal Exam Abdominal: Present soft and normoactive bowel sounds; Absent tenderness *Routine Extremities Exam Extremities: Present full ROM and normal capillary refill; Absent edema *Routine Skin Exam Skin: Present intact, dry and warm Detailed Neck Exam: Thyroids Thyroid: Absent bruit Progress Note: A&P Assessment and plan (1) Pulmonary hypertension: Status: Chronic (2) Acute and chronic respiratory failure with hypoxia: Status: Acute Assessment and Plan Assessment and Plan for All Diagnoses:: Acute on Chronic Right Heart Failure - severe primary PHtn, Severe RV Dilation, Severe TR - she is up 30lbs from dry weight this summer, always responds well to IV diuretics but thus far has had trouble continuing diuresis with oral meds post discharge resulting in numerous readmissions - recommend she stay on IV diuretics until she is back at dry weight.-UOP has decreased since being off of Bumex drip. Crackles noted to lung bases. Will restart Bumex drip. - pt saw [facility] for RHC/LHC this summer. not a candidate for tri-clip. historically not tolerating PHtn meds due to hypotension - Patient has diuresed 16 L this admission. - Can Consider Cordella implant once she is out of the hospital for >30 days. - Holding Opsumit due to documented issues with worsening edema in some patients. - on Tadalafil PAF - rate controlled here - cont Eliquis - historically has not required antiarrhthmics and BP usually low so not on AV blockers for now Morbid Obesity, BMI 44 - baseline weight 220 per pt/family - continue diuresis. Cardiology consult 11/26/2024: UOP has decreased, creatinine remains stable at 1.2. Crackles noted to lung bases. Will restart patient on Bumex drip. Referral to Dr. Richard iSms at [facility] on outpatient basis. Previous dry wt of 220 may be unreachable simply by diuresis since patient has been largely sedentary related to hospitalizations and likely gained wt just by being sedentary. 1256 Update: Urine output has increased since starting Bumex drip. Will continue.
[2024-11-26] MEDS: BUMETANIDE 10 MG in 0.9 % SODIUM CHLORIDE 60 ML 5 MG IV (10:24)
[2024-11-26 12:11] LABS: Blood Urea Nitrogen 25 mg/dl (7-17); Creatinine Clearance Estimated 37 mL/min (50-200); Creatinine,Serum 1.20 mg/dl (0.52-1.04); Estimated Glomerular Filt Rate 44 ml/min (>60); GFR (African American) 54 ML/MIN (>60)
[2024-11-26] MEDS: MELATONIN 5MG TABLET 5 MG PO (20:18)
--- NOTE | 2024-11-26 22:21 | EXP.PN ---
Subjective *Date: 11/26/24 *Time: 22:21 Interval history: Patient started to feel better after starting Bumex drip. Less volume overloaded. Denies chest pain, shortness of breath. Exam Data for Last 24 hours Vital signs and Labs for Last 24 Hours: Temp Pulse Resp BP Pulse Ox O2 Del Method O2 Flow Rate 99.2 F 81 18 102/58 L 94 L Nasal Cannula 2 11/26/24 20:00 11/26/24 20:00 11/26/24 20:00 11/26/24 20:00 11/26/24 20:00 11/26/24 21:00 11/26/24 21:00 Laboratory Results - last 24 hr 11/26/24 06:35: WBC 8.8, RBC 3.43 L, Hgb 8.3 L, Hct 28.6 L, MCV 83.4, MCH 24.2 L, MCHC 29.0 L, RDW 25.0 H, Plt Count 482 H, MPV 10.5 H, Neut % (Auto) 60.0, Lymph % (Auto) 14.7, [place] % (Auto) 14.5 H, Eos % (Auto) 8.8, Baso % (Auto) 1.5, Neut # (Auto) 5.3, Lymph # (Auto) 1.3, [place] # (Auto) 1.3 H, Eos # (Auto) 0.8 H, Baso # (Auto) 0.1, Sodium 137, Potassium 3.5, Chloride 93 L, Carbon Dioxide 37 H, Anion Gap 10.5, BUN 25 H, Creatinine 1.20 H, Estimated Creat Clear 37, Estimated GFR 44 L, Est GFR ( Amer) 54 L, Glucose 113 H, Calcium 8.6, Total Bilirubin 0.5, AST 20, ALT 10 L, Alkaline Phosphatase 153 H, Total Protein 7.0, Albumin 3.2 L, Globulin 3.8 H, Albumin/Globulin Ratio 0.8 L 11/26/24 : Magnesium 2.1 I & O for Last 24 hours: Intake & Output 11/23/24 11/24/24 11/25/24 11/26/24 23:59 23:59 23:59 23:59 Intake Total 1952.333 / 3629.881 7727 / 1520 1020 / 1070 1040 / 1040 Output Total 5300 / 5700 1900 / 2125 575 / 575 3150 / 3150 Balance -3346.667 / -3746.667 -580 / -605 445 / 495 -2110 / -0 Weight 108.862 kg 111.221 kg 108.862 kg 110.268 kg Constitutional Constitutional: no acute distress and cooperative *Routine HEENT Exam Eye: Present PERRL *Routine Respiratory Exam Respiratory: Present CTA bilaterally; Absent accessory muscle use, wheezes or crackles *Routine Cardiovascular Exam Cardiovascular: Present RRR, Normal S1 and Normal S2; Absent murmur, gallop or rubs *Routine Abdominal Exam Abdominal: Present soft; Absent tenderness *Routine Extremities Exam Extremities: Present edema and pulses intact; Absent cyanosis Comments: Bilateral lower extremity pitting edema 1+ *Routine Skin Exam Skin: Present intact; Absent erythema or wounds *Routine Neurological Exam Neurological: Present alert and oriented X3 Routine Psychiatric Exam Psychiatric: Present cooperative Assessment and Plan *Assessment and plan (1) (HFpEF) heart failure with preserved ejection fraction: Status: Acute Qualifiers: Heart failure chronicity: acute on chronic Qualified Code(s): I50.33 - Acute on chronic diastolic (congestive) heart failure Category: Medical Code(s): I50.30 - Unspecified diastolic (congestive) heart failure (2) Cor pulmonale: Status: Acute Category: Medical Code(s): I27.81 - Cor pulmonale (chronic) (3) Hyponatremia: Status: Acute Category: Medical Code(s): E87.1 - Hypo-osmolality and hyponatremia (4) Primary pulmonary hypertension: Problem Comment: Type I pulmonary hypertension Status: Chronic Category: Medical Code(s): I27.0 - Primary pulmonary hypertension (5) Hypertension: Status: Chronic Qualifiers: Hypertension type: primary hypertension Qualified Code(s): I10 - Essential (primary) hypertension Category: Medical Code(s): I10 - Essential (primary) hypertension (6) Asplenia: Status: Chronic Category: Medical Code(s): Q89.01 - Asplenia (congenital) (7) Severe tricuspid regurgitation: Status: Chronic Category: Medical Code(s): I07.1 - Rheumatic tricuspid insufficiency (8) Diabetes mellitus type 2 in obese: Status: Chronic Category: Medical Code(s): E11.69 - Type 2 diabetes mellitus with other specified complication; E66.9 - Obesity, unspecified (9) Obesity: Problem Comment: Class II Status: Chronic Qualifiers: Obesity type: due to excess calories Obesity classification: adult class 3 (BMI >= 40) Serious obesity comorbidity presence: with serious comorbidity Body mass index: BMI 40.0-44.9 Qualified Code(s): E66.813 - Obesity, class 3; Z68.41 - Body mass index [BMI] 40.0-44.9, adult Category: Medical Code(s): E66.9 - Obesity, unspecified (10) Atrial fibrillation: Status: Chronic Qualifiers: Atrial fibrillation type: longstanding persistent Qualified Code(s): I48.11 - Longstanding persistent atrial fibrillation Category: Medical Code(s): I48.91 - Unspecified atrial fibrillation (11) Cirrhosis of liver: Status: Chronic Qualifiers: Hepatic cirrhosis type: unspecified hepatic cirrhosis Ascites presence: unspecified Qualified Code(s): K74.60 - Unspecified cirrhosis of liver Category: Medical Code(s): K74.60 - Unspecified cirrhosis of liver Plan Rica Flannery is a 69-year-old female with a medical history significant for severe right heart failure/cor pulmonale from pulmonary hypertension, asplenia, paroxysmal A-fib, CAD, type 2 diabetes, anxiety/depression, GERD presents with dyspnea for follow-up with cardiology and pulmonology. Admitted for recurrent HFpEF exacerbation, and further optimization of pulmonary hypertension medications. #Pulmonary hypertension with cor pulmonale #Severe RV failure with cor pulmonale #Severe tricuspid regurgitation #Acute on chronic HFpEF #Medication side effect ? Patient has underlying pulmonary hypertension with concomitant cor pulmonale, possibly related to undiagnosed sleep apnea versus history of hypertension. ? RHC on 11/21/2024 at our facility consistent with severe pulmonary hypertension. Not classified as type II. Most consistent with type III pulmonary hypertension per pulmonology. ? Discussed with pulmonology on admission, recommended discontinue macitentan due to suspicion of a contributing to recurrent HFpEF exacerbations. ? Diuresed with Bumex drip during admission, net -16 L. ? Scheduled Bumex ineffective yesterday, started Bumex drip today with good diuresis. Patient feels better, less volume overloaded. Continue overnight. ? Continue tadalafil 20 mg. Patient's blood pressures have been well-controlled, not hypotensive. - Currently on 2 L nasal cannula, wean as tolerated. ? Discussed extensively with cardiology and pulmonology, cardiology reached out to [facility] pulmonary hypertension clinic who recommended outpatient follow-up. # Iron deficient anemia: Hemoglobin has remained stable. No signs of bleeding. transfusion threshold hemoglobin less than 8, repeat CBC, CMP, magnesium ordered for the morning #History of asplenia: Monitor closely for infection. #Cirrhosis: Diagnosed on imaging during a previous visit, has been evaluated by GI and recommends advanced MRI in [place] to further evaluate cirrhotic like changes on CT. This is being set up. #Physical deconditioning #Depression ? Patient's recently. Had gone to rehab for therapy. Was participating well with PT and OT. Will reconsult PT and OT while admitted. ? Mood stable, continue home duloxetine 60 mg daily, nortriptyline 25 mg daily. - Melatonin 5 mg nightly for sleep Chronic medical problems: #Paroxysmal A-fib: Currently rate controlled. Continue home Eliquis 5 mg twice daily. Hold home metoprolol due to hypotension. #CAD: Holding aspirin and statin DNR/DNI DVT prophylaxis: Eliquis Cardiac diet
[2024-11-27] VITALS (8 sets, daily range): BP systolic 94–120; BP diastolic 51–61; PULSE 65–90; RESP 14–20; TEMP 37–37.4; O2SAT 94–97; BMI 41.4
[2024-11-27] MEDS: BUMETANIDE 10 MG in 0.9 % SODIUM CHLORIDE 60 ML 5 MG IV (05:45)
[2024-11-27 06:48] LABS: Alanine Aminotransferase 10 U/L (12-78); Albumin Level 3.2 g/dl (3.5-5.0); Albumin/Globulin Ratio 1.0 (1.1-1.8); Alkaline Phosphatase 148 U/L (38-126); Anion Gap 10.3 mEq/L (5-15); Aspartate Amino Transferase 22 U/L (14-36); Bilirubin,Total 0.7 mg/dl (0.2-1.3); Blood Urea Nitrogen 24 mg/dl (7-17); Calcium 8.3 mg/dl (8.4-10.2); Carbon Dioxide 36 mmol/L (22.0-30.0); Chloride 92 mmol/L (98-107); Creatinine Clearance Estimated 41 mL/min (50-200); Creatinine,Serum 1.10 mg/dl (0.52-1.04); Estimated Glomerular Filt Rate 49 ml/min (>60); GFR (African American) 59 ML/MIN (>60); Globulin 3.3 g/dL (1.3-3.2); Glucose 149 mg/dl (74-100); Potassium 3.3 mmoL/L (3.5-5.1); Sodium 135 mmol/L (136-145); Total Protein,Serum 6.5 g/dl (6.3-8.2)
[2024-11-27] MEDS: TADALAFIL 20 MG 20 EACH PO (08:50)
[2024-11-27] MEDS: SENNOSIDES 8.6MG/DOCUSATE 50MG TABLET 1 TAB PO (08:50)
[2024-11-27] MEDS: APIXABAN 5MG TABLET 5 MG PO ×2 (08:50→21:31)
[2024-11-27] MEDS: POLYETHYLENE GLYCOL 3350 17 GM PACKET PO (08:51)
[2024-11-27] MEDS: FAMOTIDINE 20MG TABLET 20 MG PO (08:51)
--- NOTE | 2024-11-27 10:19 | EXP.CARD.PN ---
Subjective Subjective Date: 11/27/24 Time: 10:19 Principal diagnosis: Right heart failure/Pulm HTN Interval history: 69-year-old white female in bed in no acute distress. Still with congestive cough but is looking stronger daily. Patient has now diuresed almost 19 L of fluid during this admission Exam Data for Last 24 hours Vital signs and Labs for Last 24 Hours: Temp Pulse Resp BP Pulse Ox O2 Del Method O2 Flow Rate 98.9 F 75 16 101/51 L 94 L Nasal Cannula 2.5 11/27/24 07:59 11/27/24 07:59 11/27/24 07:59 11/27/24 07:59 11/27/24 07:59 11/27/24 08:00 11/27/24 08:00 Laboratory Results - last 24 hr 11/26/24 06:35: BUN 25 H, Creatinine 1.20 H, Estimated Creat Clear 37, Estimated GFR 44 L, Est GFR ( Amer) 54 L 11/27/24 05:52: Sodium 135 L, Potassium 3.3 L, Chloride 92 L, Carbon Dioxide 36 H, Anion Gap 10.3, BUN 24 H, Creatinine 1.10 H, Estimated Creat Clear 41, Estimated GFR 49 L, Est GFR ( Amer) 59, Glucose 149 H D, Calcium 8.3 L, Total Bilirubin 0.7, AST 22, ALT 10 L, Alkaline Phosphatase 148 H, Total Protein 6.5, Albumin 3.2 L, Globulin 3.3 H, Albumin/Globulin Ratio 1.0 L I & O for Last 24 hours: Intake & Output 11/24/24 11/25/24 11/26/24 11/27/24 11:59 11:59 11:59 11:59 Intake Total 1350 / 1350 1220 / 1220 930 / 930 726.75 / 726.75 Output Total 1500 / 2050 925 / 925 1100 / 1700 3550 / 3550 Balance -150 / -700 295 / 295 -170 / -770 -2823.25 / -2823.25 Weight 245 lb 3.2 oz 248 lb 9 oz 243 lb 1.6 oz 248 lb 9.6 oz Constitutional Constitutional: no acute distress *Routine Respiratory Exam Respiratory: Present decreased breath sounds, rhonchi and crackles; Absent wheezes *Routine Cardiovascular Exam Cardiovascular: Present RRR and murmur; Absent gallop or rubs *Routine Extremities Exam Extremities: Present edema Progress Note: A&P Assessment and plan (1) (HFpEF) heart failure with preserved ejection fraction: Status: Acute (2) Cor pulmonale: Status: Acute (3) Hyponatremia: Status: Acute (4) Primary pulmonary hypertension: Problem details: Type I pulmonary hypertension Status: Chronic (5) Hypertension: Status: Chronic (6) Asplenia: Status: Chronic (7) Severe tricuspid regurgitation: Status: Chronic (8) Diabetes mellitus type 2 in obese: Status: Chronic (9) Obesity: Problem details: Class II Status: Chronic (10) Atrial fibrillation: Status: Chronic (11) Cirrhosis of liver: Status: Chronic (12) Pulmonary hypertension: Status: Chronic (13) Acute and chronic respiratory failure with hypoxia: Status: Acute Assessment and Plan Assessment and Plan for All Diagnoses:: Acute on Chronic Right Heart Failure - severe primary PHtn, Severe RV Dilation, Severe TR - she is up 30lbs from dry weight this summer, always responds well to IV diuretics but thus far has had trouble continuing diuresis with oral meds post discharge resulting in numerous readmissions - recommend she stay on IV diuretics until she is back at dry weight. - pt saw [facility] for RHC/LHC this summer. not a candidate for tri-clip. historically not tolerating PHtn meds due to hypotension - Patient has diuresed 18 L this admission. - Can Consider Cordella implant once she is out of the hospital for >30 days. - Holding Opsumit due to documented issues with worsening edema in some patients. - on Tadalafil PAF - rate controlled here - cont Eliquis - historically has not required anti-arrhthmics and BP usually low so not on AV blockers for now Morbid Obesity, BMI 44 - baseline weight 220 per pt/family - continue diuresis. Continue IV bumex Renal functions slightly better today Admission wt recorded as 257lb then down to 240lb and now back up to 248lb despite 19 liters of fluid diuresed. Not sure wts are accurate.
--- NOTE | 2024-11-27 12:18 | EXP.PULM.PN ---
Subjective *Date: 11/27/24 *Time: 12:18 Interval history: No acute respiratory vents overnight. Denies any new respiratory complaints. Continue to complain of cough. Pulmonology Exam Inpatient Vital signs and Labs for Last 24 Hours: Temp Pulse Resp BP Pulse Ox O2 Del Method O2 Flow Rate 98.9 F 75 16 101/51 L 94 L Nasal Cannula 2.5 11/27/24 07:59 11/27/24 07:59 11/27/24 07:59 11/27/24 07:59 11/27/24 07:59 11/27/24 09:00 11/27/24 09:00 Laboratory Results - last 24 hr 11/27/24 05:52: Sodium 135 L, Potassium 3.3 L, Chloride 92 L, Carbon Dioxide 36 H, Anion Gap 10.3, BUN 24 H, Creatinine 1.10 H, Estimated Creat Clear 41, Estimated GFR 49 L, Est GFR ( Amer) 59, Glucose 149 H D, Calcium 8.3 L, Total Bilirubin 0.7, AST 22, ALT 10 L, Alkaline Phosphatase 148 H, Total Protein 6.5, Albumin 3.2 L, Globulin 3.3 H, Albumin/Globulin Ratio 1.0 L Temp Pulse Resp BP Pulse Ox O2 Del Method O2 Flow Rate 98.4 F 76 17 132/77 96 Nasal Cannula 2 11/19/24 04:00 11/19/24 06:30 11/19/24 06:30 11/19/24 06:00 11/19/24 06:30 11/19/24 06:30 11/19/24 06:30 Laboratory Results - last 24 hr 11/18/24 15:52: WBC 11.4 H, RBC 3.66 L, Hgb 8.8 L, Hct 30.4 L, MCV 83.1, MCH 24.0 L, MCHC 28.9 L, RDW 26.7 H*, Plt Count 417, MPV 10.3, Neut % (Auto) 66.2, Lymph % (Auto) 12.2, [place] % (Auto) 13.6 H, Eos % (Auto) 6.6, Baso % (Auto) 1.0, Neut # (Auto) 7.6, Lymph # (Auto) 1.4, [place] # (Auto) 1.6 H, Eos # (Auto) 0.8 H, Baso # (Auto) 0.1, Total Counted 100, Neutrophils % (Manual) 67, Lymphocytes % (Manual) 14, Monocytes % (Manual) 13 H, Eosinophils % (Manual) 5 H, Basophils % (Manual) 1.0, Platelet Estimate Slight increase, Giant Platelets 1+, Polychromasia 1+, Hypochromasia 1+, Poikilocytosis 1+, Anisocytosis 1+, Microcytosis 1+, Macrocytosis 1+, Target Cells 1+, Tear Drop Cells 1+, Filiberto Cells 1+, Sodium 137, Potassium 3.3 L, Chloride 89 L, Carbon Dioxide 39 H, Anion Gap 12.3, BUN 18 H, Creatinine 1.00, Estimated Creat Clear 45, Estimated GFR 55 L, Est GFR ( Amer) 66, Glucose 109 H, Calcium 9.1, Magnesium 2.0, Total Bilirubin 0.9, AST 23, ALT 13, Alkaline Phosphatase 208 H, Troponin I 0.02, NT-Pro-B Natriuret Pep 3830 H, Total Protein 7.3, Albumin 3.7, Globulin 3.6 H, Albumin/Globulin Ratio 1.0 L 11/19/24 05:33: WBC 9.6, RBC 3.46 L, Hgb 8.3 L, Hct 28.6 L, MCV 82.7, MCH 24.0 L, MCHC 29.0 L, RDW 26.8 H*, Plt Count 386, MPV 10.4, Neut % (Auto) 63.9, Lymph % (Auto) 13.8, [place] % (Auto) 13.5 H, Eos % (Auto) 7.3, Baso % (Auto) 1.1, Neut # (Auto) 6.1, Lymph # (Auto) 1.3, [place] # (Auto) 1.3 H, Eos # (Auto) 0.7 H, Baso # (Auto) 0.1, Sodium 136, Potassium 3.4 L, Chloride 91 L, BUN 16, Creatinine 0.90, Estimated Creat Clear 45, Estimated GFR 62, Est GFR ( Amer) 75, Glucose 154 H D, Calcium 8.3 L, Magnesium 1.9, Total Bilirubin 0.7, AST 23, ALT 11 L, Alkaline Phosphatase 175 H, Total Protein 6.7, Albumin 3.3 L D, Globulin 3.4 H, Albumin/Globulin Ratio 1.0 L I & O for Labs for Last 24 Hours: Intake & Output 11/24/24 11/25/24 11/26/24 11/27/24 23:59 23:59 23:59 23:59 Intake Total 1320 / 1520 1020 / 1070 1040 / 1040 576.75 / 576.75 Output Total 1900 / 2125 575 / 575 3150 / 3500 1150 / 1150 Balance -580 / -605 445 / 495 -2110 / -2460 -573.25 / -573.25 Weight 245 lb 3.2 oz 240 lb 243 lb 1.6 oz 248 lb 9.6 oz Intake & Output 11/16/24 11/17/24 11/18/24 11/19/24 23:59 23:59 23:59 23:59 Intake Total 240 / 240 81.333 / 81.333 Output Total 1151 / 1601 1350 / 1350 Balance -911 / -1361 -1268.667 / -1268.667 Weight 256 lb 2.834 oz 257 lb 15.053 oz Constitutional: Present moderate distress Head: Present normocephalic and atraumatic ENT: Present normal exam, normal oropharynx and mucous membranes moist Neck: Present normal inspection and full ROM Respiratory: Present respiratory distress and able to speak in complete sentences; Absent prolonged expiratory phase, rhonchi, wheezes or diminished air movement Cardiac: Present S1/S2, Tachycardia and radial pulses present GI: Present soft and distention; Absent tenderness or guarding Rectal (female): Present deferred (female): Present deferred Skin: Present intact; Absent cyanosis or jaundice Neuro: Present alert, awake and oriented x 3 Extremities: Present normal inspection and edema; Absent clubbing or cyanosis Psychiatric: Present normal affect and cooperative Assessment and Plan *Assessment and plan (1) Pulmonary hypertension: Status: Chronic Category: Medical Code(s): I27.20 - Pulmonary hypertension, unspecified (2) Acute and chronic respiratory failure with hypoxia: Status: Acute Category: Medical Code(s): J96.21 - Acute and chronic respiratory failure with hypoxia Plan Ms. Flannery is a 69 year-old female no significant smoking history, obesity, high risk for sleep apnea recently had a diagnosis of pulmonary hypertension status post right heart cath showed pulmonary hypertension with increased PVR at 12 ureña which also showed to have elevated wedge pressure at 18 initiated on a combination of Tadanafil and Macicentan for her pulmonary arterial hypertension, since then having frequent hospital admissions for worsening respiratory distress hypertension dizziness and volume overload recently discharged from the hospital after volume optimization presented worsening respiratory distress and pulmonary was called for further evaluation and management. Patient CT abdomen findings are also consistent with cirrhosis. Child-Cruz score A. Chest x-ray no dense consolidative/airspace changes. Daytime blood gas consistent with obesity hypoventilation syndrome. Cannot completely rule out concomitant sleep apnea given her morbid obesity. Right heart cath 11/21/2024 PCWP at 18. PA at 92 x 38 with a mean of 56 mmHg, with PVR at 12 ureña. Continue to receive tadalafil 20 mg daily. Continue to hold macitentan given concerning recurrent admissions for volume overload. Continue to receive tadalafil, tolerating well. Interval update: No acute respiratory events overnight. Continued to needing 1 to 2 L nasal cannula to mentation. Continue to complain of cough nursing yellowish productive phlegm. Follow-up chest x-ray. Afebrile. Hemodynamically stable. No evidence of leukocytosis. Continue to receive diuretics with net negative volume status. Plan: Chest x-ray Continue Tadanafil 20mg daily. Continue volume optimization and management for other comorbidities contributing to her type III PH per cardiology. Continue oxygen supplementation to maintain O2 saturation goal of 90% and above, needing 1 to 2 L nasal cannula Follow-up with GI as an outpatient basis for her abnormal CT finding consistent with cirrhosis. Patient is due to undergo sleep study as an outpatient basis. Will schedule lab polysomnography testing. For now continue oxygen supplementation also at night to maintain O2 saturation goal of 90% and above She continue to receive Eliquis twice daily for her paroxysmal A-fib.
--- NOTE | 2024-11-27 12:19 | XR_ITS ---
FINAL REPORT CLINICAL HISTORY: PNM COMPARISON: 11/25/2024 FINDINGS: 1 VIEW CHEST There is cardiomegaly. The mediastinum is unremarkable. There is a left perihilar opacity. There is no pneumothorax. There is degenerative change of the right glenohumeral joint. The humeral head is subluxed inferiorly. IMPRESSION: Opacity as above likely secondary to pneumonia. Follow-up to complete resolution recommended. Reviewed, Interpreted and Dictated by lAlen Bear MD Transcribed by Carolina Momin Authenticated and . [facility]
[2024-11-27] MEDS: POTASSIUM CHLORIDE 20MEQ TAB 20 MEQ PO ×2 (14:03→21:31)
[2024-11-27] MEDS: CEFEPIME HCL 2 GM in 0.9 % SODIUM CHLORIDE 100 ML IV (17:33)
[2024-11-27] MEDS: DOXYCYCLINE HYCL 100 MG TABLET PO (17:37)
[2024-11-27] MEDS: ACETAMINOPHEN 325MG TAB 650 MG PO (17:38)
--- NOTE | 2024-11-27 18:36 | EXP.PN ---
Subjective *Date: 11/27/24 *Time: 18:36 Interval history: Patient feels a little weaker today, likely from pneumonia. Started cefepime, doxycycline. Continues to diurese very well, however renal function has not bumped yet to suggest patient is becoming closer to euvolemia. Continue diuresis. Exam Data for Last 24 hours Vital signs and Labs for Last 24 Hours: Temp Pulse Resp BP Pulse Ox O2 Del Method O2 Flow Rate 99.4 F 84 18 120/56 L 95 Nasal Cannula 2 11/27/24 16:00 11/27/24 16:00 11/27/24 16:00 11/27/24 16:00 11/27/24 16:00 11/27/24 18:31 11/27/24 18:31 Laboratory Results - last 24 hr 11/27/24 05:52: Sodium 135 L, Potassium 3.3 L, Chloride 92 L, Carbon Dioxide 36 H, Anion Gap 10.3, BUN 24 H, Creatinine 1.10 H, Estimated Creat Clear 41, Estimated GFR 49 L, Est GFR ( Amer) 59, Glucose 149 H D, Calcium 8.3 L, Total Bilirubin 0.7, AST 22, ALT 10 L, Alkaline Phosphatase 148 H, Total Protein 6.5, Albumin 3.2 L, Globulin 3.3 H, Albumin/Globulin Ratio 1.0 L I & O for Last 24 hours: Intake & Output 11/24/24 11/25/24 11/26/24 11/27/24 23:59 23:59 23:59 23:59 Intake Total 1320 / 1520 1020 / 1070 1040 / 1040 816.75 / 816.75 Output Total 1900 / 2125 575 / 575 3150 / 3500 2850 / 2850 Balance -580 / -605 445 / 495 -2110 / -2460 -2032.25 / - Weight 111.221 kg 108.862 kg 110.268 kg 112.763 kg Constitutional Constitutional: no acute distress and cooperative *Routine HEENT Exam Eye: Present PERRL *Routine Respiratory Exam Respiratory: Present CTA bilaterally; Absent accessory muscle use, wheezes or crackles *Routine Cardiovascular Exam Cardiovascular: Present RRR, Normal S1 and Normal S2; Absent murmur, gallop or rubs *Routine Abdominal Exam Abdominal: Present soft; Absent tenderness *Routine Extremities Exam Extremities: Present edema and pulses intact; Absent cyanosis Comments: Bilateral lower extremity pitting edema 1+ *Routine Skin Exam Skin: Present intact; Absent erythema or wounds *Routine Neurological Exam Neurological: Present alert and oriented X3 Routine Psychiatric Exam Psychiatric: Present cooperative Assessment and Plan *Assessment and plan (1) (HFpEF) heart failure with preserved ejection fraction: Status: Acute Qualifiers: Heart failure chronicity: acute on chronic Qualified Code(s): I50.33 - Acute on chronic diastolic (congestive) heart failure Category: Medical Code(s): I50.30 - Unspecified diastolic (congestive) heart failure (2) Cor pulmonale: Status: Acute Category: Medical Code(s): I27.81 - Cor pulmonale (chronic) (3) Hyponatremia: Status: Acute Category: Medical Code(s): E87.1 - Hypo-osmolality and hyponatremia (4) Primary pulmonary hypertension: Problem Comment: Type I pulmonary hypertension Status: Chronic Category: Medical Code(s): I27.0 - Primary pulmonary hypertension (5) Hypertension: Status: Chronic Qualifiers: Hypertension type: primary hypertension Qualified Code(s): I10 - Essential (primary) hypertension Category: Medical Code(s): I10 - Essential (primary) hypertension (6) Asplenia: Status: Chronic Category: Medical Code(s): Q89.01 - Asplenia (congenital) (7) Severe tricuspid regurgitation: Status: Chronic Category: Medical Code(s): I07.1 - Rheumatic tricuspid insufficiency (8) Diabetes mellitus type 2 in obese: Status: Chronic Category: Medical Code(s): E11.69 - Type 2 diabetes mellitus with other specified complication; E66.9 - Obesity, unspecified (9) Obesity: Problem Comment: Class II Status: Chronic Qualifiers: Obesity type: due to excess calories Obesity classification: adult class 3 (BMI >= 40) Serious obesity comorbidity presence: with serious comorbidity Body mass index: BMI 40.0-44.9 Qualified Code(s): E66.813 - Obesity, class 3; Z68.41 - Body mass index [BMI] 40.0-44.9, adult Category: Medical Code(s): E66.9 - Obesity, unspecified (10) Atrial fibrillation: Status: Chronic Qualifiers: Atrial fibrillation type: longstanding persistent Qualified Code(s): I48.11 - Longstanding persistent atrial fibrillation Category: Medical Code(s): I48.91 - Unspecified atrial fibrillation (11) Cirrhosis of liver: Status: Chronic Qualifiers: Hepatic cirrhosis type: unspecified hepatic cirrhosis Ascites presence: unspecified Qualified Code(s): K74.60 - Unspecified cirrhosis of liver Category: Medical Code(s): K74.60 - Unspecified cirrhosis of liver Plan Rica Flannery is a 69-year-old female with a medical history significant for severe right heart failure/cor pulmonale from pulmonary hypertension, asplenia, paroxysmal A-fib, CAD, type 2 diabetes, anxiety/depression, GERD presents with dyspnea for follow-up with cardiology and pulmonology. Admitted for recurrent HFpEF exacerbation, and further optimization of pulmonary hypertension medications. #Pulmonary hypertension with cor pulmonale #Severe RV failure with cor pulmonale #Severe tricuspid regurgitation #Acute on chronic HFpEF #Medication side effect ? Patient has underlying pulmonary hypertension with concomitant cor pulmonale, possibly related to undiagnosed sleep apnea versus history of hypertension. ? RHC on 11/21/2024 at our facility consistent with severe pulmonary hypertension. Not classified as type II. Most consistent with type III pulmonary hypertension per pulmonology. ? Discussed with pulmonology on admission, recommended discontinue macitentan due to suspicion of a contributing to recurrent HFpEF exacerbations. ? Diuresed with Bumex drip during admission, net -16 L then transition to scheduled Bumex but ineffective due to ongoing anasarca. ? Continue Bumex drip, diuresing well net -20 L. Creatinine improved to 1.1 today, waiting for creatinine to bump before transitioning to p.o. Bumex to ensure patient is becoming euvolemic. ? Continue tadalafil 20 mg. Patient's blood pressures have been well-controlled, not hypotensive. - Currently on 2 L nasal cannula, wean as tolerated. ? Discussed extensively with cardiology and pulmonology, cardiology reached out to [facility] pulmonary hypertension clinic who recommended outpatient follow-up. #Acute hypoxic respiratory failure #Suspected hospital-acquired pneumonia ? CXR on 11/27/2024 suggestive of left perihilar pneumonia, which would explain oxygen requirements and persistent cough. ? Started cefepime 2 g every 12 hours, doxycycline 100 mg twice daily. Patient is asplenic so we we will treat this aggressively. ? Follow-up sputum culture. ? Pending further pulmonology recommendations. # Iron deficient anemia: Hemoglobin has remained stable. No signs of bleeding. transfusion threshold hemoglobin less than 8, repeat CBC, CMP, magnesium ordered for the morning #History of asplenia: Monitor closely for infection. #Cirrhosis: Diagnosed on imaging during a previous visit, has been evaluated by GI and recommends advanced MRI in [place] to further evaluate cirrhotic like changes on CT. This is being set up. #Physical deconditioning #Depression ? Patient's recently. Had gone to rehab for therapy. Was participating well with PT and OT. Will reconsult PT and OT while admitted. ? Mood stable, continue home duloxetine 60 mg daily, nortriptyline 25 mg daily. - Melatonin 5 mg nightly for sleep Chronic medical problems: #Paroxysmal A-fib: Currently rate controlled. Continue home Eliquis 5 mg twice daily. Hold home metoprolol due to hypotension. #CAD: Holding aspirin and statin DNR/DNI DVT prophylaxis: Eliquis Cardiac diet
[2024-11-27] MEDS: SODIUM CHLORIDE 3% 15ML NEB 3 ML IH (20:28)
[2024-11-27] MEDS: MELATONIN 5MG TABLET 5 MG PO (21:31)
[2024-11-28] VITALS: BP 118/51; PULSE 65; PULSE 73; RESP 18; TEMP 36.8; O2SAT 94
[2024-11-28] MEDS: BUMETANIDE 10 MG in 0.9 % SODIUM CHLORIDE 60 ML 5 MG IV (02:22)
[2024-11-28 04:00] VITALS: BP 97/62; PULSE 64; PULSE 70; RESP 14; TEMP 36.6; O2SAT 97; BMI 41.1
[2024-11-28] MEDS: CEFEPIME HCL 2 GM in 0.9 % SODIUM CHLORIDE 100 ML IV (05:13)
[2024-11-28 06:26] LABS: Hematocrit 28.6 % (37.0-47.0); Hemoglobin 8.0 g/dL (12.2-16.2); Immature Granulocytes % 0.3 %; Mean Corpuscular HGB Conc 28.0 g/dL (31.8-35.4); Mean Corpuscular Hemoglobin 23.2 pg (27.0-31.2); Mean Corpuscular Volume 82.9 fl (81-99); Nucleated Red Blood Cells % 0 %; Platelet Count 478 K/mm3 (142-424); Red Blood Count 3.45 M/mm3 (4.20-5.40); Red Cell Distribution Width-SD 72.7 fL; White Blood Count 8.9 K/mm3 (4.8-10.8)
[2024-11-28 06:55] LABS: Alanine Aminotransferase 11 U/L (12-78); Albumin Level 3.3 g/dl (3.5-5.0); Albumin/Globulin Ratio 0.9 (1.1-1.8); Alkaline Phosphatase 151 U/L (38-126); Anion Gap 10.2 mEq/L (5-15); Aspartate Amino Transferase 20 U/L (14-36); Bilirubin,Total 0.8 mg/dl (0.2-1.3); Blood Urea Nitrogen 25 mg/dl (7-17); Calcium 8.7 mg/dl (8.4-10.2); Carbon Dioxide 39 mmol/L (22.0-30.0); Chloride 91 mmol/L (98-107); Creatinine Clearance Estimated 41 mL/min (50-200); Creatinine,Serum 1.10 mg/dl (0.52-1.04); Estimated Glomerular Filt Rate 49 ml/min (>60); GFR (African American) 59 ML/MIN (>60); Globulin 3.6 g/dL (1.3-3.2); Glucose 86 mg/dl (74-100); Potassium 3.2 mmoL/L (3.5-5.1); Sodium 137 mmol/L (136-145); Total Protein,Serum 6.9 g/dl (6.3-8.2)
--- NOTE | 2024-11-28 07:01 | PC.NURSE ---
Pt is A&OX4. No c/o pain or discomfort. Pt has a purwic on for accurate I and O's. Pt is on a bumex Drip. 2L of NC O2. Pt is on the electrolyte replacement Protocol. eliquis for VTE. Her skin is sorta Ashen and dusky looking at times. Call light is with in reach. Pt has rested most of the night. ABRAHAM SOLIS RN
--- NOTE | 2024-11-28 07:59 | P.PN_ITS ---
Subjective *Date: 11/28/24 *Time: 12:59 Interval history: No acute respiratory vents overnight. Stable oxygen requirements Pulmonology Exam Inpatient Vital signs and Labs for Last 24 Hours: Temp Pulse Resp BP Pulse Ox O2 Del Method O2 Flow Rate 98 F 64 14 97/62 L 97 Nasal Cannula 2 11/28/24 04:00 11/28/24 04:00 11/28/24 04:00 11/28/24 04:00 11/28/24 04:00 11/28/24 05:00 11/28/24 05:00 Laboratory Results - last 24 hr 11/28/24 05:59: WBC 8.9, RBC 3.45 L, Hgb 8.0 L, Hct 28.6 L, MCV 82.9, MCH 23.2 L , MCHC 28.0 L, RDW 24.4 H, Plt Count 478 H, MPV 10.7 H, Neut % (Auto) 57.4, Lymph % (Auto) 16.9, [place] % (Auto) 16.2 H, Eos % (Auto) 7.7, Baso % (Auto) 1.5, Neut # (Auto) 5.1, Lymph # (Auto) 1.5, [place] # (Auto) 1.4 H, Eos # (Auto) 0.7 H, Baso # (Auto) 0.1, Sodium 137, Potassium 3.2 L, Chloride 91 L, Carbon Dioxide 39 H, Anion Gap 10.2, BUN 25 H, Creatinine 1.10 H, Estimated Creat Clear 41, Estimated GFR 49 L, Est GFR ( Amer) 59, Glucose 86, Calcium 8.7, Total Bilirubin 0.8, AST 20, ALT 11 L, Alkaline Phosphatase 151 H, Total Protein 6.9, Albumin 3.3 L, Globulin 3.6 H, Albumin/Globulin Ratio 0.9 L Temp Pulse Resp BP Pulse Ox O2 Del Method O2 Flow Rate 98.4 F 76 17 132/77 96 Nasal Cannula 2 11/19/24 04:00 11/19/24 06:30 11/19/24 06:30 11/19/24 06:00 11/19/24 06:30 11/19/24 06:30 11/19/24 06:30 Laboratory Results - last 24 hr 11/18/24 15:52: WBC 11.4 H, RBC 3.66 L, Hgb 8.8 L, Hct 30.4 L, MCV 83.1, MCH 24.0 L, MCHC 28.9 L, RDW 26.7 H*, Plt Count 417, MPV 10.3, Neut % (Auto) 66.2, Lymph % (Auto) 12.2, [place] % (Auto) 13.6 H, Eos % (Auto) 6.6, Baso % (Auto) 1.0, Neut # (Auto) 7.6, Lymph # (Auto) 1.4, [place] # (Auto) 1.6 H, Eos # (Auto) 0.8 H, Baso # (Auto) 0.1, Total Counted 100, Neutrophils % (Manual) 67, Lymphocytes % (Manual) 14, Monocytes % (Manual) 13 H, Eosinophils % (Manual) 5 H, Basophils % (Manual) 1.0, Platelet Estimate Slight increase, Giant Platelets 1+, Polychromasia 1+, Hypochromasia 1+, Poikilocytosis 1+, Anisocytosis 1+, Microcytosis 1+, Macrocytosis 1+, Target Cells 1+, Tear Drop Cells 1+, [place] Cells 1+, Sodium 137, Potassium 3.3 L, Chloride 89 L, Carbon Dioxide 39 H, Anion Gap 12.3, BUN 18 H, Creatinine 1.00, Estimated Creat Clear 45, Estimated GFR 55 L, Est GFR ( Amer) 66, Glucose 109 H, Calcium 9.1, Magnesium 2.0, Total Bilirubin 0.9, AST 23, ALT 13, Alkaline Phosphatase 208 H, Troponin I 0.02, NT-Pro-B Natriuret Pep 3830 H, Total Protein 7.3, Albumin 3.7, Globulin 3.6 H, Albumin/Globulin Ratio 1.0 L 11/19/24 05:33: WBC 9.6, RBC 3.46 L, Hgb 8.3 L, Hct 28.6 L, MCV 82.7, MCH 24.0 L , MCHC 29.0 L, RDW 26.8 H*, Plt Count 386, MPV 10.4, Neut % (Auto) 63.9, Lymph % (Auto) 13.8, [place] % (Auto) 13.5 H, Eos % (Auto) 7.3, Baso % (Auto) 1.1, Neut # (Auto) 6.1, Lymph # (Auto) 1.3, [place] # (Auto) 1.3 H, Eos # (Auto) 0.7 H, Baso # (Auto) 0.1, Sodium 136, Potassium 3.4 L, Chloride 91 L, BUN 16, Creatinine 0.90, Estimated Creat Clear 45, Estimated GFR 62, Est GFR ( Amer) 75, Glucose 154 H D, Calcium 8.3 L, Magnesium 1.9, Total Bilirubin 0.7, AST 23, ALT 11 L, Alkaline Phosphatase 175 H, Total Protein 6.7, Albumin 3.3 L D, Globulin 3.4 H, Albumin/Globulin Ratio 1.0 L I & O for Labs for Last 24 Hours: Intake & Output 11/25/24 11/26/24 11/27/24 11/28/24 23:59 23:59 23:59 23:59 Intake Total 1020 / 1070 1040 / 1040 1156.75 / 1396.75 440 / 440 Output Total 575 / 575 3150 / 3500 3450 / 3900 1275 / 1275 Balance 445 / 495 -2110 / -2460 -2293.25 / -2503.25 -835 / -835 Weight 240 lb 243 lb 1.6 oz 248 lb 9.6 oz 247 lb 1.6 oz Intake & Output 11/16/24 11/17/24 11/18/24 11/19/24 23:59 23:59 23:59 23:59 Intake Total 240 / 240 81.333 / 81.333 Output Total 1151 / 1601 1350 / 1350 Balance -911 / -1361 -1268.667 / -1268.667 Weight 256 lb 2.834 oz 257 lb 15.053 oz Microbiology Reports for the Last 24 Hours: Microbiology 11/28/24 02:26 Sputum - Expectorated Sputum Gram Stain - Final Constitutional: Present moderate distress Head: Present normocephalic and atraumatic ENT: Present normal exam, normal oropharynx and mucous membranes moist Neck: Present normal inspection and full ROM Respiratory: Present respiratory distress and able to speak in complete sentences; Absent prolonged expiratory phase, rhonchi, wheezes or diminished air movement Cardiac: Present S1/S2, Tachycardia and radial pulses present GI: Present soft and distention; Absent tenderness or guarding Rectal (female): Present deferred (female): Present deferred Skin: Present intact; Absent cyanosis or jaundice Neuro: Present alert, awake and oriented x 3 Extremities: Present normal inspection and edema; Absent clubbing or cyanosis Psychiatric: Present normal affect and cooperative Assessment and Plan *Assessment and plan (1) Pulmonary hypertension: Status: Chronic Category: Medical Code(s): I27.20 - Pulmonary hypertension, unspecified (2) Acute and chronic respiratory failure with hypoxia: Status: Acute Category: Medical Code(s): J96.21 - Acute and chronic respiratory failure with hypoxia (3) Hilar lymphadenopathy: Status: Acute Category: Medical Code(s): R59.0 - Localized enlarged lymph nodes (4) Mediastinal lymphadenopathy: Status: Acute Category: Medical Code(s): R59.0 - Localized enlarged lymph nodes (5) Bronchomalacia: Status: Acute Category: Medical Code(s): J98.09 - Other diseases of bronchus, not elsewhere classified Plan Ms. Flannery is a 69 year-old female no significant smoking history, obesity, high risk for sleep apnea recently had a diagnosis of pulmonary hypertension status post right heart cath showed pulmonary hypertension with increased PVR at 12 ureña which also showed to have elevated wedge pressure at 18 initiated on a combination of Tadanafil and Macicentan for her pulmonary arterial hypertension, since then having frequent hospital admissions for worsening respiratory distress hypertension dizziness and volume overload recently discharged from the hospital after volume optimization presented worsening respiratory distress and pulmonary was called for further evaluation and management. Patient CT abdomen findings are also consistent with cirrhosis. Child-Cruz score A. Chest x-ray no dense consolidative/airspace changes. Daytime blood gas consistent with obesity hypoventilation syndrome. Cannot completely rule out concomitant sleep apnea given her morbid obesity. Right heart cath 11/21/2024 PCWP at 18. PA at 92 x 38 with a mean of 56 mmHg, with PVR at 12 ureña. Continue to receive tadalafil 20 mg daily. Continue to hold macitentan given concerning recurrent admissions for volume overload. Continue to receive tadalafil, tolerating well. Interval update: No acute respiratory vents overnight. Stable oxygen comments. Chest x-ray concerning for left hilar opacity. Afebrile. Hemodynamically stable. CT chest no dense consolidative airspace changes. Bilateral diffuse ground glass opacities. Continued show bilateral mediastinal and hilar lymphadenopathy, stable from her CT scan from October and July 2024. Likely reactive/secondary to volume overload however THE possibility of sarcoidosis as the Etiology of patient's pulmonary arterial hypertension cannot be completely ruled out at this point of time. Patient CT scan from October and November also concerning for bronchomalacia. Plan: Incentive spirometry and flutter valve No need for antibiotics from pulmonary standpoint Continue Tadanafil 20mg daily. Continue volume optimization and management for other comorbidities contributing to her type III PH per cardiology. Continue oxygen supplementation to maintain O2 saturation goal of 90% and above, needing 1 to 2 L nasal cannula Follow-up with GI as an outpatient basis for her abnormal CT finding consistent with cirrhosis. Patient is due to undergo sleep study as an outpatient basis. Will schedule lab polysomnography testing. For now continue oxygen supplementation also at night to maintain O2 saturation goal of 90% and above She continue to receive Eliquis twice daily for her paroxysmal A-fib.
[2024-11-28 08:00] VITALS: BP 104/70; PULSE 71; PULSE 72; RESP 16; TEMP 36.9; O2SAT 95
--- NOTE | 2024-11-28 08:01 | CT_ITS ---
FINAL REPORT TECHNIQUE: Thin section axial images were obtained from the lung apices through the upper abdomen without contrast. This study was performed with techniques to keep radiation doses as low as reasonably achievable (ALARA). Individualized dose reduction techniques using automated exposure control or adjustment of mA and/or kV according to the patient's size were employed. CLINICAL HISTORY: Hypoxia COMPARISON: CTA of the chest 11/05/2024 FINDINGS: There is a hypodense right thyroid nodule noted. No axillary adenopathy is present. There are multiple mildly enlarged mediastinal lymph nodes, slightly more prominent in number since the prior CTA of the chest. There is a 2 cm right paratracheal node, was previously 2 cm. Subcarinal adenopathy is stable. The heart is mildly enlarged, also stable in appearance. No pleural or pericardial effusion. The ground glass opacities noted on the prior CT have improved. Interlobular septal thickening is improved as well. There is bilateral lower lobe airspace disease, favor atelectasis. Limited, unenhanced evaluation of the upper abdomen is without acute abnormality. There is no acute osseous abnormality. IMPRESSION: 1. There is improvement in the ground glass opacities and interlobular septal thickening, favor improved pulmonary edema. 2. Nonspecific lymphadenopathy, favor reactive, consider follow-up 3 to 6 months if indicated. 3. The trachea and left mainstem bronchus appear unremarkable on the current examination. Reviewed, Interpreted and Dictated by Lisa Contreras MD Transcribed by Zoya Reyes Authenticated and [facility]
--- NOTE | 2024-11-28 08:04 | HMH.PHAAMS2 ---
- Antimicrobial Stewardship Review 48 hour timeout review Stewardship interventions: reviewed - no change Comments: ON CEFEPIME AND DOXYCYCLINE, EMPIRIC THERAPY, NO CULTURE RESULTS AT THIS TIME culture & sensitivity review Stewardship interventions: culture & sensitivity review, reviewed - no change Comments: ON CEFEPIME AND DOXYCYCLINE, EMPIRIC THERAPY, NO CULTURE RESULTS AT THIS TIME
[2024-11-28 09:04] LABS: Magnesium 1.8 mg/dl (1.6-2.3)
[2024-11-28 09:14] LABS: C-Reactive Protein 29.4 mg/L (0-4)
[2024-11-28 09:21] LABS: Procalcitonin 0.070 ng/mL (0.0-2.0)
[2024-11-28] MEDS: POTASSIUM CHLORIDE 20MEQ TAB 20 MEQ PO ×3 (09:28→20:10)
[2024-11-28] MEDS: FAMOTIDINE 20MG TABLET 20 MG PO (09:29)
[2024-11-28] MEDS: APIXABAN 5MG TABLET 5 MG PO ×2 (09:29→20:10)
[2024-11-28] MEDS: DOXYCYCLINE HYCL 100 MG TABLET PO ×2 (09:30→20:10)
[2024-11-28] MEDS: SENNOSIDES 8.6MG/DOCUSATE 50MG TABLET 1 TAB PO (09:40)
[2024-11-28] MEDS: TADALAFIL 20 MG 20 EACH PO (09:40)
[2024-11-28] MEDS: ACETAMINOPHEN 325MG TAB 650 MG PO ×2 (10:51→23:39)
--- NOTE | 2024-11-28 11:02 | EXP.CARD.PN ---
Subjective Subjective Date: 11/28/24 Time: 11:02 Principal diagnosis: Right heart failure/Pulm HTN Interval history: 69-year-old white female in bed appears to be breathing easier than yesterday. She continues to diurese well with less lower extremity edema. Patient still has significant abdominal girth. Patient has diuresed a total of 21 L thus far during her hospitalization. Hemoglobin has been stable around 8. BUN and creatinine remained stable at 25 and 1.1. Exam Data for Last 24 hours Vital signs and Labs for Last 24 Hours: Temp Pulse Resp BP Pulse Ox O2 Del Method O2 Flow Rate 98.4 F 71 16 104/70 L 95 Nasal Cannula 2 11/28/24 08:00 11/28/24 08:00 11/28/24 08:00 11/28/24 08:00 11/28/24 08:00 11/28/24 08:00 11/28/24 08:00 Laboratory Results - last 24 hr 11/28/24 05:59: WBC 8.9, RBC 3.45 L, Hgb 8.0 L, Hct 28.6 L, MCV 82.9, MCH 23.2 L, MCHC 28.0 L, RDW 24.4 H, Plt Count 478 H, MPV 10.7 H, Neut % (Auto) 57.4, Lymph % (Auto) 16.9, [place] % (Auto) 16.2 H, Eos % (Auto) 7.7, Baso % (Auto) 1.5, Neut # (Auto) 5.1, Lymph # (Auto) 1.5, [place] # (Auto) 1.4 H, Eos # (Auto) 0.7 H, Baso # (Auto) 0.1, Sodium 137, Potassium 3.2 L, Chloride 91 L, Carbon Dioxide 39 H, Anion Gap 10.2, BUN 25 H, Creatinine 1.10 H, Estimated Creat Clear 41, Estimated GFR 49 L, Est GFR ( Amer) 59, Glucose 86, Calcium 8.7, Magnesium 1.8 D, Total Bilirubin 0.8, AST 20, ALT 11 L, Alkaline Phosphatase 151 H, C-Reactive Protein 29.4 H, Total Protein 6.9, Albumin 3.3 L, Globulin 3.6 H, Albumin/Globulin Ratio 0.9 L, Procalcitonin 0.070 I & O for Last 24 hours: Intake & Output 11/25/24 11/26/24 11/27/24 11/28/24 11:59 11:59 11:59 11:59 Intake Total 1220 / 1220 930 / 930 1206.75 / 1206.75 1260 / 1260 Output Total 925 / 925 1100 / 1700 3550 / 4550 4375 / 4375 Balance 295 / 295 -170 / -770 -2343.25 / -3343.25 -3115 / -3115 Weight 248 lb 9 oz 243 lb 1.6 oz 248 lb 9.6 oz 247 lb 1.6 oz Microbiology Reports for the Last 24 Hours: Microbiology 11/28/24 02:26 Sputum - Expectorated Sputum Gram Stain - Final Constitutional Constitutional: no acute distress *Routine Respiratory Exam Respiratory: Present decreased breath sounds and crackles; Absent wheezes *Routine Cardiovascular Exam Cardiovascular: Present irregularly irregular *Routine Abdominal Exam Abdominal: Present obese *Routine Extremities Exam Extremities: Present edema Progress Note: A&P Assessment and plan (1) Pulmonary hypertension: Status: Chronic (2) Acute and chronic respiratory failure with hypoxia: Status: Acute (3) (HFpEF) heart failure with preserved ejection fraction: Status: Acute (4) Cor pulmonale: Status: Acute (5) Hyponatremia: Status: Acute (6) Primary pulmonary hypertension: Problem details: Type I pulmonary hypertension Status: Chronic (7) Hypertension: Status: Chronic (8) Asplenia: Status: Chronic (9) Severe tricuspid regurgitation: Status: Chronic (10) Diabetes mellitus type 2 in obese: Status: Chronic (11) Obesity: Problem details: Class II Status: Chronic (12) Atrial fibrillation: Status: Chronic (13) Cirrhosis of liver: Status: Chronic Assessment and Plan Assessment and Plan for All Diagnoses:: Acute on Chronic Right Heart Failure - severe primary PHtn, Severe RV Dilation, Severe TR - she is up 30lbs from dry weight this summer, always responds well to IV diuretics but thus far has had trouble continuing diuresis with oral meds post discharge resulting in numerous readmissions - recommend she stay on IV diuretics until she is back at dry weight. - pt saw [facility] for RHC/LHC this summer. not a candidate for tri-clip. historically not tolerating PHtn meds due to hypotension - Patient has diuresed 18 L this admission. - Can Consider Cordella implant once she is out of the hospital for >30 days. - Holding Opsumit due to documented issues with worsening edema in some patients. - on Tadalafil PAF - rate controlled here - cont Eliquis - historically has not required anti-arrhthmics and BP usually low so not on AV blockers for now Morbid Obesity, BMI 44 - baseline weight 220 per pt/family - continue diuresis. Continue IV bumex. Considered indwelling cath with home health giving IV diuretic but this is not possible if pt goes to [place]. Renal functions stable Admission wt recorded as 257lb then down to 240lb and now back up to 247lb despite 21 liters of fluid diuresed. Not sure wts are accurate.
[2024-11-28 12:00] VITALS: BP 104/56; PULSE 79; PULSE 84; RESP 16; TEMP 36.7; O2SAT 97
--- NOTE | 2024-11-28 15:02 | PC.NURSE ---
assumed care of pt at 1500 from ANGELIQUE MERIDA
[2024-11-28 16:00] VITALS: BP 99/54; PULSE 71; PULSE 80; RESP 18; TEMP 36.7; O2SAT 96
[2024-11-28 20:00] VITALS: BP 109/72; PULSE 75; PULSE 80; RESP 17; TEMP 36.8; O2SAT 96
[2024-11-28] MEDS: MELATONIN 5MG TABLET 5 MG PO (20:10)
--- NOTE | 2024-11-28 21:58 | P.PN_ITS ---
Subjective *Date: 11/28/24 *Time: 21:58 Interval history: Continues to diurese well on Bumex drip, pending creatinine bump to ensure euvolemic state. Exam Data for Last 24 hours Vital signs and Labs for Last 24 Hours: Temp Pulse Resp BP Pulse Ox O2 Del Method O2 Flow Rate 98.3 F 80 17 109/72 L 96 Nasal Cannula 2 11/28/24 20:00 11/28/24 20:00 11/28/24 20:00 11/28/24 20:00 11/28/24 20:00 11/28/24 21:00 11/28/24 21:00 Laboratory Results - last 24 hr 11/28/24 05:59: WBC 8.9, RBC 3.45 L, Hgb 8.0 L, Hct 28.6 L, MCV 82.9, MCH 23.2 L , MCHC 28.0 L, RDW 24.4 H, Plt Count 478 H, MPV 10.7 H, Neut % (Auto) 57.4, Lymph % (Auto) 16.9, [place] % (Auto) 16.2 H, Eos % (Auto) 7.7, Baso % (Auto) 1.5, Neut # (Auto) 5.1, Lymph # (Auto) 1.5, [place] # (Auto) 1.4 H, Eos # (Auto) 0.7 H, Baso # (Auto) 0.1, Sodium 137, Potassium 3.2 L, Chloride 91 L, Carbon Dioxide 39 H, Anion Gap 10.2, BUN 25 H, Creatinine 1.10 H, Estimated Creat Clear 41, Estimated GFR 49 L, Est GFR ( Amer) 59, Glucose 86, Calcium 8.7, Magnesium 1.8 D, Total Bilirubin 0.8, AST 20, ALT 11 L, Alkaline Phosphatase 151 H, C-Reactive Protein 29.4 H, Total Protein 6.9, Albumin 3.3 L, Globulin 3.6 H, Albumin/Globulin Ratio 0.9 L, Procalcitonin 0.070 I & O for Last 24 hours: Intake & Output 11/25/24 11/26/24 11/27/24 11/28/24 23:59 23:59 23:59 23:59 Intake Total 1020 / 1070 1040 / 1040 1156.75 / 1396.75 1466.833 / 1466.833 Output Total 575 / 575 3150 / 3500 3450 / 3900 2925 / 2925 Balance 445 / 495 -2110 / -2460 -2293.25 / -2503.25 -1458.167 / -1458.167 Weight 108.862 kg 110.268 kg 112.763 kg 112.083 kg Microbiology Reports for the Last 24 Hours: Microbiology 11/28/24 02:26 Sputum - Expectorated Sputum Gram Stain - Final Constitutional Constitutional: no acute distress and cooperative *Routine HEENT Exam Eye: Present PERRL *Routine Respiratory Exam Respiratory: Present CTA bilaterally; Absent accessory muscle use, wheezes or crackles *Routine Cardiovascular Exam Cardiovascular: Present RRR, Normal S1 and Normal S2; Absent murmur, gallop or rubs *Routine Abdominal Exam Abdominal: Present soft; Absent tenderness *Routine Extremities Exam Extremities: Present edema and pulses intact; Absent cyanosis Comments: Bilateral lower extremity pitting edema 1+ *Routine Skin Exam Skin: Present intact; Absent erythema or wounds *Routine Neurological Exam Neurological: Present alert and oriented X3 Routine Psychiatric Exam Psychiatric: Present cooperative Assessment and Plan *Assessment and plan (1) (HFpEF) heart failure with preserved ejection fraction: Status: Acute Qualifiers: Heart failure chronicity: acute on chronic Qualified Code(s): I50.33 - Acute on chronic diastolic (congestive) heart failure Category: Medical Code(s): I50.30 - Unspecified diastolic (congestive) heart failure (2) Cor pulmonale: Status: Acute Category: Medical Code(s): I27.81 - Cor pulmonale (chronic) (3) Hyponatremia: Status: Acute Category: Medical Code(s): E87.1 - Hypo-osmolality and hyponatremia (4) Primary pulmonary hypertension: Problem Comment: Type I pulmonary hypertension Status: Chronic Category: Medical Code(s): I27.0 - Primary pulmonary hypertension (5) Hypertension: Status: Chronic Qualifiers: Hypertension type: primary hypertension Qualified Code(s): I10 - Essential (primary) hypertension Category: Medical Code(s): I10 - Essential (primary) hypertension (6) Asplenia: Status: Chronic Category: Medical Code(s): Q89.01 - Asplenia (congenital) (7) Severe tricuspid regurgitation: Status: Chronic Category: Medical Code(s): I07.1 - Rheumatic tricuspid insufficiency (8) Diabetes mellitus type 2 in obese: Status: Chronic Category: Medical Code(s): E11.69 - Type 2 diabetes mellitus with other specified complication; E66.9 - Obesity, unspecified (9) Obesity: Problem Comment: Class II Status: Chronic Qualifiers: Obesity type: due to excess calories Obesity classification: adult class 3 (BMI >= 40) Serious obesity comorbidity presence: with serious comorbidity Body mass index: BMI 40.0-44.9 Qualified Code(s): E66.813 - Obesity, class 3; Z68.41 - Body mass index [BMI] 40.0-44.9, adult Category: Medical Code(s): E66.9 - Obesity, unspecified (10) Atrial fibrillation: Status: Chronic Qualifiers: Atrial fibrillation type: longstanding persistent Qualified Code(s): I48.11 - Longstanding persistent atrial fibrillation Category: Medical Code(s): I48.91 - Unspecified atrial fibrillation (11) Cirrhosis of liver: Status: Chronic Qualifiers: Hepatic cirrhosis type: unspecified hepatic cirrhosis Ascites presence: unspecified Qualified Code(s): K74.60 - Unspecified cirrhosis of liver Category: Medical Code(s): K74.60 - Unspecified cirrhosis of liver Plan Rica Flannery is a 69-year-old female with a medical history significant for severe right heart failure/cor pulmonale from pulmonary hypertension, asplenia, paroxysmal A-fib, CAD, type 2 diabetes, anxiety/depression, GERD presents with dyspnea for follow-up with cardiology and pulmonology. Admitted for recurrent HFpEF exacerbation, and further optimization of pulmonary hypertension medications. #Acute hypoxic respiratory failure #Pulmonary hypertension with cor pulmonale #Severe RV failure with cor pulmonale #Severe tricuspid regurgitation #Acute on chronic HFpEF #Medication side effect ? Patient has underlying pulmonary hypertension with concomitant cor pulmonale, possibly related to undiagnosed sleep apnea versus history of hypertension. ? RHC on 11/21/2024 at our facility consistent with severe pulmonary hypertension. Not classified as type II. Most consistent with type III pulmonary hypertension per pulmonology. ? Discussed with pulmonology on admission, recommended discontinue macitentan due to suspicion of a contributing to recurrent HFpEF exacerbations. ? Diuresed with Bumex drip during admission, net -16 L then transition to scheduled Bumex but ineffective due to ongoing anasarca. ? Continue Bumex drip, diuresing well net -22 L. Creatinine improved to 1.1 today, waiting for creatinine to bump before transitioning to p.o. Bumex to ensure patient is becoming euvolemic. ? Continue tadalafil 20 mg. Patient's blood pressures have been well- controlled, not hypotensive. ? CT chest today continues to reveal pulmonary edema. - Currently on 2 L nasal cannula, wean as tolerated. ? Discussed extensively with cardiology and pulmonology, cardiology reached out to [facility] pulmonary hypertension clinic who recommended outpatient follow-up. # Iron deficient anemia: Hemoglobin has remained stable. No signs of bleeding. transfusion threshold hemoglobin less than 8, repeat CBC, CMP, magnesium ordered for the morning #History of asplenia: Monitor closely for infection. #Cirrhosis: Diagnosed on imaging during a previous visit, has been evaluated by GI and recommends advanced MRI in [place] to further evaluate cirrhotic like changes on CT. This is being set up. #Physical deconditioning #Depression ? Patient's recently. Had gone to rehab for therapy. Was participating well with PT and OT. Will reconsult PT and OT while admitted. ? Mood stable, continue home duloxetine 60 mg daily, nortriptyline 25 mg daily. - Melatonin 5 mg nightly for sleep Chronic medical problems: #Paroxysmal A-fib: Currently rate controlled. Continue home Eliquis 5 mg twice daily. Hold home metoprolol due to hypotension. #CAD: Holding aspirin and statin DNR/DNI DVT prophylaxis: Eliquis Cardiac diet
[2024-11-29] VITALS (7 sets, daily range): BP systolic 91–142; BP diastolic 44–70; PULSE 65–85; RESP 14–18; TEMP 36.8–37.3; O2SAT 90–97; BMI 40.4
[2024-11-29] MEDS: BUMETANIDE 10 MG in 0.9 % SODIUM CHLORIDE 60 ML 7.5 MG IV (02:23)
--- NOTE | 2024-11-29 04:17 | PC.NURSE ---
Pt AOx4, pleasant. Tolerating 2L O2 (pt baseline). Received prn tylenol earlier in the shift per the APR for a headache. The pt is still being diuresed per the APR. Bumex drip running at the ordered rate. She is currently resting in bed with her eyes closed. Respirations even and unlabored. Bed is low, locked, and call light is in reach.
[2024-11-29 07:38] LABS: Hematocrit 28.6 % (37.0-47.0); Hemoglobin 8.5 g/dL (12.2-16.2); Immature Granulocytes % 0.3 %; Mean Corpuscular HGB Conc 29.7 g/dL (31.8-35.4); Mean Corpuscular Hemoglobin 24.5 pg (27.0-31.2); Mean Corpuscular Volume 82.4 fl (81-99); Nucleated Red Blood Cells % 0 %; Platelet Count 448 K/mm3 (142-424); Red Blood Count 3.47 M/mm3 (4.20-5.40); Red Cell Distribution Width-SD 71.8 fL; White Blood Count 9.8 K/mm3 (4.8-10.8)
[2024-11-29 07:55] LABS: Alanine Aminotransferase 10 U/L (12-78); Albumin Level 3.4 g/dl (3.5-5.0); Albumin/Globulin Ratio 0.9 (1.1-1.8); Alkaline Phosphatase 165 U/L (38-126); Aspartate Amino Transferase 21 U/L (14-36); Bilirubin,Total 0.7 mg/dl (0.2-1.3); Blood Urea Nitrogen 27 mg/dl (7-17); Calcium 8.8 mg/dl (8.4-10.2); Chloride 88 mmol/L (98-107); Creatinine Clearance Estimated 41 mL/min (50-200); Creatinine,Serum 1.10 mg/dl (0.52-1.04); Estimated Glomerular Filt Rate 49 ml/min (>60); GFR (African American) 59 ML/MIN (>60); Globulin 3.6 g/dL (1.3-3.2); Glucose 153 mg/dl (74-100); Potassium 3.1 mmoL/L (3.5-5.1); Sodium 136 mmol/L (136-145); Total Protein,Serum 7.0 g/dl (6.3-8.2)
[2024-11-29 07:56] LABS: Magnesium 1.7 mg/dl (1.6-2.3)
[2024-11-29 08:01] LABS: Anion Gap 12.1 mEq/L (5-15); Carbon Dioxide 39 mmol/L (22.0-30.0)
[2024-11-29] MEDS: POTASSIUM CHLORIDE 20MEQ TAB 20 MEQ PO ×3 (08:54→20:48)
[2024-11-29] MEDS: POLYETHYLENE GLYCOL 3350 17 GM PACKET PO (08:54)
[2024-11-29] MEDS: SENNOSIDES 8.6MG/DOCUSATE 50MG TABLET 1 TAB PO (08:54)
[2024-11-29] MEDS: TADALAFIL 20 MG 20 EACH PO (08:54)
[2024-11-29] MEDS: APIXABAN 5MG TABLET 5 MG PO ×2 (08:54→20:50)
[2024-11-29] MEDS: FAMOTIDINE 20MG TABLET 20 MG PO (08:54)
[2024-11-29] MEDS: DOXYCYCLINE HYCL 100 MG TABLET PO ×2 (08:54→20:50)
--- NOTE | 2024-11-29 08:57 | PC.NURSE ---
Addendum entered by Delilah Alexander RN 11/29/24 10:56: pt BP re-checked. see chart. per hospitalist, bumex gtt re-started at 0945 at ordered rate. Original Note: bumex gtt paused at this time per hospitalist due to hypotension
[2024-11-29 09:00] LABS: Anisocytosis 1+; Poikilocytosis 1+; RBC Morphology Normal; Target Cells 1+; Total Cells Counted 100
--- NOTE | 2024-11-29 15:08 | EXP.PN ---
Subjective *Date: 11/29/24 *Time: 15:08 Interval history: Patient states she is doing well, no chest pain, shortness of breath. No different than yesterday. Continues to have cough. It is odd that patient is diuresing this well and continues to be fluid overloaded. Upon further inquiry, patient states she has been drinking a lot of fluids. She was reeducated on fluid, salt restriction. Will move forward with strict fluid restriction, MERLIN's. Exam Data for Last 24 hours Vital signs and Labs for Last 24 Hours: Temp Pulse Resp BP Pulse Ox O2 Del Method O2 Flow Rate 98.5 F 70 18 101/48 L 97 Nasal Cannula 2 11/29/24 12:00 11/29/24 12:00 11/29/24 12:00 11/29/24 12:00 11/29/24 12:00 11/29/24 15:00 11/29/24 15:00 Laboratory Results - last 24 hr 11/29/24 06:51: WBC 9.8, RBC 3.47 L, Hgb 8.5 L, Hct 28.6 L, MCV 82.4, MCH 24.5 L, MCHC 29.7 L, RDW 24.0 H, Plt Count 448 H, MPV 10.8 H, Neut % (Auto) 59.4, Lymph % (Auto) 14.8, [place] % (Auto) 15.9 H, Eos % (Auto) 8.0, Baso % (Auto) 1.6, Neut # (Auto) 5.8, Lymph # (Auto) 1.5, [place] # (Auto) 1.6 H, Eos # (Auto) 0.8 H, Baso # (Auto) 0.2, Total Counted 100, Neutrophils % (Manual) 59, Lymphocytes % (Manual) 13, Monocytes % (Manual) 15 H, Eosinophils % (Manual) 10 H, Basophils % (Manual) 3.0 H, Platelet Estimate Slight increase, RBC Morphology Normal, Poikilocytosis 1+, Anisocytosis 1+, Target Cells 1+, Sodium 136, Potassium 3.1 L, Chloride 88 L, Carbon Dioxide 39 H, Anion Gap 12.1, BUN 27 H, Creatinine 1.10 H, Estimated Creat Clear 41, Estimated GFR 49 L, Est GFR ( Amer) 59, Glucose 153 H, Calcium 8.8, Magnesium 1.7, Total Bilirubin 0.7, AST 21, ALT 10 L, Alkaline Phosphatase 165 H, Total Protein 7.0, Albumin 3.4 L, Globulin 3.6 H, Albumin/Globulin Ratio 0.9 L I & O for Last 24 hours: Intake & Output 11/26/24 11/27/24 11/28/24 11/29/24 23:59 23:59 23:59 23:59 Intake Total 1040 / 1040 1156.75 / 1396.75 1500.000 / 1500.000 420 / 420 Output Total 3150 / 3500 3450 / 3900 3475 / 3475 1700 / 1700 Balance -2110 / -2460 -2293.25 / -2503.25 -1975.000 / -1975.000 -1280 / -1280 Weight 110.268 kg 112.763 kg 112.083 kg 110.223 kg Constitutional Constitutional: no acute distress and cooperative *Routine HEENT Exam Eye: Present PERRL *Routine Respiratory Exam Respiratory: Present CTA bilaterally; Absent accessory muscle use, wheezes or crackles *Routine Cardiovascular Exam Cardiovascular: Present RRR, Normal S1 and Normal S2; Absent murmur, gallop or rubs *Routine Abdominal Exam Abdominal: Present soft; Absent tenderness *Routine Extremities Exam Extremities: Present edema and pulses intact; Absent cyanosis Comments: Bilateral lower extremity pitting edema 1+ *Routine Skin Exam Skin: Present intact; Absent erythema or wounds *Routine Neurological Exam Neurological: Present alert and oriented X3 Routine Psychiatric Exam Psychiatric: Present cooperative Assessment and Plan *Assessment and plan (1) (HFpEF) heart failure with preserved ejection fraction: Status: Acute Qualifiers: Heart failure chronicity: acute on chronic Qualified Code(s): I50.33 - Acute on chronic diastolic (congestive) heart failure Category: Medical Code(s): I50.30 - Unspecified diastolic (congestive) heart failure (2) Cor pulmonale: Status: Acute Category: Medical Code(s): I27.81 - Cor pulmonale (chronic) (3) Hyponatremia: Status: Acute Category: Medical Code(s): E87.1 - Hypo-osmolality and hyponatremia (4) Primary pulmonary hypertension: Problem Comment: Type I pulmonary hypertension Status: Chronic Category: Medical Code(s): I27.0 - Primary pulmonary hypertension (5) Hypertension: Status: Chronic Qualifiers: Hypertension type: primary hypertension Qualified Code(s): I10 - Essential (primary) hypertension Category: Medical Code(s): I10 - Essential (primary) hypertension (6) Asplenia: Status: Chronic Category: Medical Code(s): Q89.01 - Asplenia (congenital) (7) Severe tricuspid regurgitation: Status: Chronic Category: Medical Code(s): I07.1 - Rheumatic tricuspid insufficiency (8) Diabetes mellitus type 2 in obese: Status: Chronic Category: Medical Code(s): E11.69 - Type 2 diabetes mellitus with other specified complication; E66.9 - Obesity, unspecified (9) Obesity: Problem Comment: Class II Status: Chronic Qualifiers: Obesity type: due to excess calories Obesity classification: adult class 3 (BMI >= 40) Serious obesity comorbidity presence: with serious comorbidity Body mass index: BMI 40.0-44.9 Qualified Code(s): E66.813 - Obesity, class 3; Z68.41 - Body mass index [BMI] 40.0-44.9, adult Category: Medical Code(s): E66.9 - Obesity, unspecified (10) Atrial fibrillation: Status: Chronic Qualifiers: Atrial fibrillation type: longstanding persistent Qualified Code(s): I48.11 - Longstanding persistent atrial fibrillation Category: Medical Code(s): I48.91 - Unspecified atrial fibrillation (11) Cirrhosis of liver: Status: Chronic Qualifiers: Hepatic cirrhosis type: unspecified hepatic cirrhosis Ascites presence: unspecified Qualified Code(s): K74.60 - Unspecified cirrhosis of liver Category: Medical Code(s): K74.60 - Unspecified cirrhosis of liver Plan Rica Flannery is a 69-year-old female with a medical history significant for severe right heart failure/cor pulmonale from pulmonary hypertension, asplenia, paroxysmal A-fib, CAD, type 2 diabetes, anxiety/depression, GERD presents with dyspnea for follow-up with cardiology and pulmonology. Admitted for recurrent HFpEF exacerbation, and further optimization of pulmonary hypertension medications. #Acute hypoxic respiratory failure #Pulmonary hypertension with cor pulmonale #Severe RV failure with cor pulmonale #Severe tricuspid regurgitation #Acute on chronic HFpEF #Medication side effect ? Patient has underlying pulmonary hypertension with concomitant cor pulmonale, possibly related to undiagnosed sleep apnea versus history of hypertension. ? RHC on 11/21/2024 at our facility consistent with severe pulmonary hypertension. Not classified as type II. Most consistent with type III pulmonary hypertension per pulmonology. ? Discussed with pulmonology on admission, recommended discontinue macitentan due to suspicion of a contributing to recurrent HFpEF exacerbations. ? Diuresed with Bumex drip during admission, net -16 L then transitioned to scheduled Bumex but ineffective due to ongoing anasarca. ? Continue Bumex drip, diuresing well net -23.3 L. Creatinine improved to 1.1 today, waiting for creatinine to bump before transitioning to p.o. Bumex to ensure patient is becoming euvolemic. ? It is odd that patient is diuresing this well and continues to be fluid overloaded. Upon further inquiry, patient states she has been drinking a lot of fluids. She was reeducated on fluid, salt restriction. Will move forward with strict fluid restriction, MERLIN's. ? Continue tadalafil 20 mg. Patient's blood pressures have been well-controlled, not hypotensive. ? CT chest on 11/28/2024 continues to reveal pulmonary edema. - Currently on 2 L nasal cannula, wean as tolerated. ? Discussed extensively with cardiology and pulmonology, cardiology reached out to [facility] pulmonary hypertension clinic who recommended outpatient follow-up. # Iron deficient anemia: Hemoglobin has remained stable. No signs of bleeding. transfusion threshold hemoglobin less than 8, repeat CBC, CMP, magnesium ordered for the morning #History of asplenia: Monitor closely for infection. #Cirrhosis: Diagnosed on imaging during a previous visit, has been evaluated by GI and recommends advanced MRI in [place] to further evaluate cirrhotic like changes on CT. This is being set up. #Physical deconditioning #Depression ? Patient's recently. Had gone to rehab for therapy. Was participating well with PT and OT. Will reconsult PT and OT while admitted. ? Mood stable, continue home duloxetine 60 mg daily, nortriptyline 25 mg daily. - Melatonin 5 mg nightly for sleep Chronic medical problems: #Paroxysmal A-fib: Currently rate controlled. Continue home Eliquis 5 mg twice daily. Hold home metoprolol due to hypotension. #CAD: Holding aspirin and statin DNR/DNI DVT prophylaxis: Eliquis Cardiac diet
[2024-11-29] MEDS: BUMETANIDE 10 MG in 0.9 % SODIUM CHLORIDE 60 ML IV (17:05)
--- NOTE | 2024-11-29 17:39 | PC.NURSE ---
Addendum entered by Delilah Alexander RN 11/29/24 17:45: Hospitalist notified of potassium and magnesium level. Hospitalist did not want these replaced by electrolyte protocol. Original Note: Pt is A&Ox4. Vital signs stable tolerating baseline of 2L NC. Bumex gtt infusing per MAR at 10mL/hr with adequate urinary output today. Strict I&O's. Pt on 1500mL fluid restriction. Pt educated on importance of following fluid restriction. Silicone dressing changed on coccyx for prevention. Pt offered Q2 turn and repositioning. Pt refused. Pt ambulated in the hallway this afternoon with a walker and stand-by assistance. Pt sitting up in the chair comfortably with no further needs voiced at this time. Call light within reach.
[2024-11-29] MEDS: MELATONIN 5MG TABLET 5 MG PO (20:49)
[2024-11-29] MEDS: ZOLPIDEM TARTRATE 5 MG TABLET PO (20:50)
[2024-11-29] MEDS: ACETAMINOPHEN 325MG TAB 650 MG PO (20:51)
[2024-11-29 22:19] LABS: Blood Urea Nitrogen 30 mg/dl (7-17); Calcium 8.8 mg/dl (8.4-10.2); Chloride 86 mmol/L (98-107); Creatinine Clearance Estimated 41 mL/min (50-200); Creatinine,Serum 1.10 mg/dl (0.52-1.04); Estimated Glomerular Filt Rate 49 ml/min (>60); GFR (African American) 59 ML/MIN (>60); Glucose 175 mg/dl (74-100); Potassium 3.4 mmoL/L (3.5-5.1); Sodium 134 mmol/L (136-145)
[2024-11-29 22:27] LABS: Anion Gap 12.4 mEq/L (5-15); Carbon Dioxide 39 mmol/L (22.0-30.0)
[2024-11-29] MEDS: ONDANSETRON 4MG/2ML VIAL 4 MG IV (22:35)
[2024-11-30] VITALS: BP 138/68; PULSE 70; PULSE 79; RESP 17; TEMP 36.8; O2SAT 93
[2024-11-30] MEDS: BUMETANIDE 10 MG in 0.9 % SODIUM CHLORIDE 60 ML IV ×4 (02:34→22:13)
[2024-11-30 04:00] VITALS: BP 142/63; PULSE 70; PULSE 71; RESP 16; TEMP 36.4; O2SAT 96; BMI 40.1
--- NOTE | 2024-11-30 05:06 | PC.NURSE ---
Pt. is alert and orientated x 4. Pt. is on 2 liters of oxygen per NC. Pt. has taken her oxygen off a couple of times and her O2 sats dropped to the high 70's. On 2 liters her O2 sats 92-93%. Pt. c/o headache overnight and was medicated with Tylenol per APR. Headache improved. Pt. also c/o nausea overnight and was Medicated with Zofran per the APR. Pt. continues to need diuresis and is on Bumex drip as ordered per APR. Pt. has slept well this shift. Pt. has a pure wick in place and is on strict I&O's. Personal items and call carmen in reach. Bed in low and locked position, safety measures in place.
[2024-11-30 06:43] LABS: Hematocrit 30.9 % (37.0-47.0); Hemoglobin 8.8 g/dL (12.2-16.2); Immature Granulocytes % 0.3 %; Mean Corpuscular HGB Conc 28.5 g/dL (31.8-35.4); Mean Corpuscular Hemoglobin 23.8 pg (27.0-31.2); Mean Corpuscular Volume 83.5 fl (81-99); Nucleated Red Blood Cells % 0 %; Platelet Count 441 K/mm3 (142-424); Red Blood Count 3.70 M/mm3 (4.20-5.40); Red Cell Distribution Width-SD 72.7 fL; White Blood Count 9.4 K/mm3 (4.8-10.8)
[2024-11-30 06:44] VITALS: BMI 39.9
[2024-11-30 06:47] LABS: Albumin Level 3.3 g/dl (3.5-5.0); Chloride 87 mmol/L (98-107); Sodium 137 mmol/L (136-145)
[2024-11-30 06:48] LABS: Potassium 3.4 mmoL/L (3.5-5.1)
[2024-11-30 06:50] LABS: Alanine Aminotransferase 12 U/L (12-78); Albumin/Globulin Ratio 0.8 (1.1-1.8); Alkaline Phosphatase 150 U/L (38-126); Aspartate Amino Transferase 23 U/L (14-36); Bilirubin,Total 0.5 mg/dl (0.2-1.3); Blood Urea Nitrogen 28 mg/dl (7-17); Creatinine Clearance Estimated 89 mL/min (50-200); Creatinine,Serum 1.00 mg/dl (0.52-1.04); Estimated Glomerular Filt Rate 55 ml/min (>60); GFR (African American) 66 ML/MIN (>60); Globulin 4.2 g/dL (1.3-3.2); Total Protein,Serum 7.5 g/dl (6.3-8.2)
[2024-11-30 06:51] LABS: Calcium 9.1 mg/dl (8.4-10.2); Glucose 137 mg/dl (74-100)
[2024-11-30 07:00] LABS: Anion Gap 8.4 mEq/L (5-15); Carbon Dioxide 45 mmol/L (22.0-30.0)
[2024-11-30 07:11] LABS: Magnesium 1.7 mg/dl (1.6-2.3)
--- NOTE | 2024-11-30 07:56 | EXP.PHA.PN ---
Subjective *Date: 11/30/24 *Time: 07:56 Medical Exam Vital signs and Labs for Last 24 Hours: Vital Signs Temp Pulse Pulse Resp BP Pulse Ox O2 Del Method 11/30/24 06:39 Nasal Cannula 11/30/24 05:00 Nasal Cannula 11/30/24 04:00 70 11/30/24 04:00 97.6 F 71 16 142/63 H 96 Nasal Cannula 11/30/24 03:00 Nasal Cannula 11/30/24 01:00 Nasal Cannula 11/30/24 00:00 70 11/30/24 00:00 98.3 F 79 17 138/68 93 L Nasal Cannula 11/29/24 23:00 Nasal Cannula 11/29/24 21:00 Nasal Cannula 11/29/24 20:00 80 11/29/24 20:00 16 92 L Nasal Cannula 11/29/24 20:00 99.0 F 85 16 142/70 H 92 L Nasal Cannula 11/29/24 18:43 Nasal Cannula 11/29/24 17:00 Nasal Cannula 11/29/24 16:00 80 11/29/24 16:00 99.1 F 79 16 103/57 L 94 L Nasal Cannula 11/29/24 15:00 Nasal Cannula 11/29/24 13:00 Nasal Cannula 11/29/24 12:00 80 11/29/24 12:00 98.5 F 70 18 101/48 L 97 Nasal Cannula 11/29/24 11:00 Nasal Cannula 11/29/24 09:34 136/64 11/29/24 09:00 Nasal Cannula 11/29/24 08:00 Nasal Cannula 11/29/24 08:00 80 11/29/24 08:00 98.2 F 70 14 91/44 L 90 L Nasal Cannula O2 Flow Rate 11/30/24 06:39 2 11/30/24 05:00 2 11/30/24 04:00 11/30/24 04:00 2 11/30/24 03:00 2 11/30/24 01:00 2 11/30/24 00:00 11/30/24 00:00 2 11/29/24 23:00 2 11/29/24 21:00 2 11/29/24 20:00 11/29/24 20:00 2 11/29/24 20:00 2 11/29/24 18:43 2 11/29/24 17:00 2 11/29/24 16:00 11/29/24 16:00 2 11/29/24 15:00 2 11/29/24 13:00 2 11/29/24 12:00 11/29/24 12:00 2 11/29/24 11:00 2 11/29/24 09:34 11/29/24 09:00 2 11/29/24 08:00 2 11/29/24 08:00 11/29/24 08:00 2 Intake and Output 11/29/24 11/29/24 11/30/24 15:59 23:59 07:59 Intake Total 540 / 1488 240 / 1488 839.833 / 839.833 Output Total 1300 / 2450 0 / 2450 1500 / 1500 Balance -760 / -962 240 / -962 -660.167 / -660.167 Intake: Intake, Oral Amount 540 / 1388 140 / 1388 708 / 708 Intake, Total IV Amount 100 / 100 131.833 / 131.833 Bumetanide 10 mg In 0.9 % 100 / 100 131.833 / 131.833 Sodium Chloride 60 ml @ 10 mls/ hr IV .Q10H [facility] Rx#:[id number] Output: Output, Urine Amount 1300 / 2450 0 / 2450 1500 / 1500 Other: Number of Unmeasured Voids 1 1 0 Weight 108.862 kg Patient Weight 11/30/24 23:59 Weight 108.862 kg Laboratory Results - last 24 hr 11/29/24 06:51: Total Counted 100, Neutrophils % (Manual) 59, Lymphocytes % (Manual) 13, Monocytes % (Manual) 15 H, Eosinophils % (Manual) 10 H, Basophils % (Manual) 3.0 H, Platelet Estimate Slight increase, RBC Morphology Normal, Poikilocytosis 1+, Anisocytosis 1+, Target Cells 1+, Sodium 136, Potassium 3.1 L, Chloride 88 L, Carbon Dioxide 39 H, Anion Gap 12.1, BUN 27 H, Creatinine 1.10 H, Estimated Creat Clear 41, Estimated GFR 49 L, Est GFR ( Amer) 59, Glucose 153 H, Calcium 8.8, Magnesium 1.7, Total Bilirubin 0.7, AST 21, ALT 10 L, Alkaline Phosphatase 165 H, Total Protein 7.0, Albumin 3.4 L, Globulin 3.6 H, Albumin/Globulin Ratio 0.9 L 11/29/24 21:58: Sodium 134 L, Potassium 3.4 L, Chloride 86 L, Carbon Dioxide 39 H, Anion Gap 12.4, BUN 30 H, Creatinine 1.10 H, Estimated Creat Clear 41, Estimated GFR 49 L, Est GFR ( Amer) 59, Glucose 175 H, Calcium 8.8 11/30/24 06:08: WBC 9.4, RBC 3.70 L, Hgb 8.8 L, Hct 30.9 L, MCV 83.5, MCH 23.8 L, MCHC 28.5 L, RDW 24.0 H, Plt Count 441 H, MPV 10.4, Neut % (Auto) 59.4, Lymph % (Auto) 19.1, [place] % (Auto) 13.7 H, Eos % (Auto) 5.8, Baso % (Auto) 1.7, Neut # (Auto) 5.6, Lymph # (Auto) 1.8, [place] # (Auto) 1.3 H, Eos # (Auto) 0.5 H, Baso # (Auto) 0.2, Sodium 137, Potassium 3.4 L, Chloride 87 L, Carbon Dioxide 45 H*, Anion Gap 8.4, BUN 28 H, Creatinine 1.00, Estimated Creat Clear 89, Estimated GFR 55 L, Est GFR ( Amer) 66, Glucose 137 H D, Calcium 9.1, Magnesium 1.7, Total Bilirubin 0.5, AST 23, ALT 12, Alkaline Phosphatase 150 H, Total Protein 7.5, Albumin 3.3 L, Globulin 4.2 H, Albumin/Globulin Ratio 0.8 L I & O for Labs for Last 24 Hours: Intake & Output 11/27/24 11/28/24 11/29/24 11/30/24 23:59 23:59 23:59 23:59 Intake Total 1156.75 / 1396.75 1500.000 / 1500.000 780 / 1488 839.833 / 839.833 Output Total 3450 / 3900 3475 / 3475 1700 / 2450 1500 / 1500 Balance -2293.25 / -2503.25 -1975.000 / -1975.000 -920 / -962 -660.167 / -660.167 Weight 112.763 kg 112.083 kg 110.223 kg 108.862 kg Microbiology Reports for the Last 24 Hours: Microbiology 11/28/24 02:26 Sputum - Expectorated Sputum Gram Stain - Final 11/28/24 02:26 Sputum - Expectorated Sputum Sputum Culture - Preliminary The patient's infection will respond to the chosen ABx?: Yes (SPUTUM PENDING, AFEBRILE OVER 24 HR) Is the patient receiving the right drug, dose, and route?: Yes Could a more targeted ABx be ordered?: No How long ABx needed (days)?: 5
[2024-11-30 08:00] VITALS: BP 132/66; PULSE 62; PULSE 80; RESP 18; TEMP 36.7; O2SAT 100
[2024-11-30] MEDS: APIXABAN 5MG TABLET 5 MG PO ×2 (08:58→20:22)
[2024-11-30] MEDS: POLYETHYLENE GLYCOL 3350 17 GM PACKET PO (08:58)
[2024-11-30] MEDS: SENNOSIDES 8.6MG/DOCUSATE 50MG TABLET 1 TAB PO (08:58)
[2024-11-30] MEDS: POTASSIUM CHLORIDE 20MEQ TAB 20 MEQ PO ×3 (08:58→20:22)
[2024-11-30] MEDS: FAMOTIDINE 20MG TABLET 20 MG PO (08:58)
[2024-11-30] MEDS: DOXYCYCLINE HYCL 100 MG TABLET PO ×2 (08:58→20:22)
[2024-11-30] MEDS: TADALAFIL 20 MG 20 EACH PO (08:58)
[2024-11-30 12:00] VITALS: BP 105/64; PULSE 70; PULSE 78; RESP 18; TEMP 36.6; O2SAT 96
--- NOTE | 2024-11-30 15:27 | P.PN_ITS ---
Subjective *Date: 11/30/24 *Time: 15:27 Interval history: Patient continues to diurese well, re-educated cafeteria on fluid restriction. Started metolazone to augment Bumex drip. Renal function improving, pending renal function to bump to ensure patient is becoming euvolemic and even on dry side before discharge. Exam Data for Last 24 hours Vital signs and Labs for Last 24 Hours: Temp Pulse Resp BP Pulse Ox O2 Del Method O2 Flow Rate 97.9 F 78 18 105/64 L 96 Nasal Cannula 2 11/30/24 12:00 11/30/24 12:00 11/30/24 12:00 11/30/24 12:00 11/30/24 12:00 11/30/24 13:00 11/30/24 13:00 Laboratory Results - last 24 hr 11/29/24 21:58: Sodium 134 L, Potassium 3.4 L, Chloride 86 L, Carbon Dioxide 39 H, Anion Gap 12.4, BUN 30 H, Creatinine 1.10 H, Estimated Creat Clear 41, Estimated GFR 49 L, Est GFR ( Amer) 59, Glucose 175 H, Calcium 8.8 11/30/24 06:08: WBC 9.4, RBC 3.70 L, Hgb 8.8 L, Hct 30.9 L, MCV 83.5, MCH 23.8 L , MCHC 28.5 L, RDW 24.0 H, Plt Count 441 H, MPV 10.4, Neut % (Auto) 59.4, Lymph % (Auto) 19.1, [place] % (Auto) 13.7 H, Eos % (Auto) 5.8, Baso % (Auto) 1.7, Neut # (Auto) 5.6, Lymph # (Auto) 1.8, [place] # (Auto) 1.3 H, Eos # (Auto) 0.5 H, Baso # (Auto) 0.2, Sodium 137, Potassium 3.4 L, Chloride 87 L, Carbon Dioxide 45 H*, Anion Gap 8.4, BUN 28 H, Creatinine 1.00, Estimated Creat Clear 89, Estimated GFR 55 L, Est GFR ( Amer) 66, Glucose 137 H D, Calcium 9.1, Magnesium 1.7, Total Bilirubin 0.5, AST 23, ALT 12, Alkaline Phosphatase 150 H, Total Protein 7.5, Albumin 3.3 L, Globulin 4.2 H, Albumin/Globulin Ratio 0.8 L I & O for Last 24 hours: Intake & Output 11/27/24 11/28/24 11/29/24 11/30/24 23:59 23:59 23:59 23:59 Intake Total 1156.75 / 1396.75 1500.000 / 1500.000 780 / 1488 1988.333 / 1988.333 Output Total 3450 / 3900 3475 / 3475 1700 / 2450 2850 / 2850 Balance -2293.25 / -2503.25 -1975.000 / -1975.000 -920 / -962 -861.667 / - 861.667 Weight 112.763 kg 112.083 kg 110.223 kg 108.862 kg Microbiology Reports for the Last 24 Hours: Microbiology 11/28/24 02:26 Sputum - Expectorated Sputum Gram Stain - Final 11/28/24 02:26 Sputum - Expectorated Sputum Sputum Culture - Preliminary Constitutional Constitutional: no acute distress and cooperative *Routine HEENT Exam Eye: Present PERRL *Routine Respiratory Exam Respiratory: Present CTA bilaterally; Absent accessory muscle use, wheezes or crackles *Routine Cardiovascular Exam Cardiovascular: Present RRR, Normal S1 and Normal S2; Absent murmur, gallop or rubs *Routine Abdominal Exam Abdominal: Present soft; Absent tenderness *Routine Extremities Exam Extremities: Present edema and pulses intact; Absent cyanosis Comments: Bilateral lower extremity pitting edema 1+ *Routine Skin Exam Skin: Present intact; Absent erythema or wounds *Routine Neurological Exam Neurological: Present alert and oriented X3 Routine Psychiatric Exam Psychiatric: Present cooperative Assessment and Plan *Assessment and plan (1) (HFpEF) heart failure with preserved ejection fraction: Status: Acute Qualifiers: Heart failure chronicity: acute on chronic Qualified Code(s): I50.33 - Acute on chronic diastolic (congestive) heart failure Category: Medical Code(s): I50.30 - Unspecified diastolic (congestive) heart failure (2) Cor pulmonale: Status: Acute Category: Medical Code(s): I27.81 - Cor pulmonale (chronic) (3) Hyponatremia: Status: Acute Category: Medical Code(s): E87.1 - Hypo-osmolality and hyponatremia (4) Primary pulmonary hypertension: Problem Comment: Type I pulmonary hypertension Status: Chronic Category: Medical Code(s): I27.0 - Primary pulmonary hypertension (5) Hypertension: Status: Chronic Qualifiers: Hypertension type: primary hypertension Qualified Code(s): I10 - Essential (primary) hypertension Category: Medical Code(s): I10 - Essential (primary) hypertension (6) Asplenia: Status: Chronic Category: Medical Code(s): Q89.01 - Asplenia (congenital) (7) Severe tricuspid regurgitation: Status: Chronic Category: Medical Code(s): I07.1 - Rheumatic tricuspid insufficiency (8) Diabetes mellitus type 2 in obese: Status: Chronic Category: Medical Code(s): E11.69 - Type 2 diabetes mellitus with other specified complication; E66.9 - Obesity, unspecified (9) Obesity: Problem Comment: Class II Status: Chronic Qualifiers: Obesity type: due to excess calories Obesity classification: adult class 3 (BMI >= 40) Serious obesity comorbidity presence: with serious comorbidity Body mass index: BMI 40.0-44.9 Qualified Code(s): E66.813 - Obesity, class 3; Z68.41 - Body mass index [BMI] 40.0-44.9, adult Category: Medical Code(s): E66.9 - Obesity, unspecified (10) Atrial fibrillation: Status: Chronic Qualifiers: Atrial fibrillation type: longstanding persistent Qualified Code(s): I48.11 - Longstanding persistent atrial fibrillation Category: Medical Code(s): I48.91 - Unspecified atrial fibrillation (11) Cirrhosis of liver: Status: Chronic Qualifiers: Hepatic cirrhosis type: unspecified hepatic cirrhosis Ascites presence: unspecified Qualified Code(s): K74.60 - Unspecified cirrhosis of liver Category: Medical Code(s): K74.60 - Unspecified cirrhosis of liver Plan Rica Flannery is a 69-year-old female with a medical history significant for severe right heart failure/cor pulmonale from pulmonary hypertension, asplenia, paroxysmal A-fib, CAD, type 2 diabetes, anxiety/depression, GERD presents with dyspnea for follow-up with cardiology and pulmonology. Admitted for recurrent HFpEF exacerbation, and further optimization of pulmonary hypertension medications. #Acute hypoxic respiratory failure #Pulmonary hypertension with cor pulmonale #Severe RV failure with cor pulmonale #Severe tricuspid regurgitation #Acute on chronic HFpEF #Medication side effect ? Patient has underlying pulmonary hypertension with concomitant cor pulmonale, possibly related to undiagnosed sleep apnea versus history of hypertension. ? RHC on 11/21/2024 at our facility consistent with severe pulmonary hypertension. Not classified as type II. Most consistent with type III pulmonary hypertension per pulmonology. ? Discussed with pulmonology on admission, recommended discontinue macitentan on admission due to suspicion of a contributing to recurrent HFpEF exacerbations. However, recurrent exacerbations likely multifactoral as patient has not fluid/salt restricted at home. ? Initially diuresed with Bumex drip during admission, net -16 L then transitioned to scheduled Bumex but ineffective due to ongoing significant anasarca. ? Continue Bumex drip at 1 mg/h, diuresing well net -23.8 L. Creatinine improved to 1.0 today indicating there is still volume/anasarca to diurese, waiting for creatinine to bump before transitioning to p.o. Bumex to ensure patient is becoming euvolemic and even on the dry side before discharge. ? Started metolazone 2.5 mg daily to augment diuresis, follow-up sodium levels and blood pressures. ? It is odd that patient is diuresing this well and continues to be fluid overloaded. Upon further inquiry, patient states she has been drinking a lot of fluids. She was reeducated on fluid, salt restriction. Reeducated staff, cafeteria on strict fluid restriction, MERLIN's. ? Continue tadalafil 20 mg. Patient's blood pressures have been well- controlled, not hypotensive. ? CT chest on 11/28/2024 continues to reveal pulmonary edema. - Currently on 2 L nasal cannula, wean as tolerated. ? Discussed extensively with cardiology and pulmonology, cardiology reached out to [facility] pulmonary hypertension clinic who recommended outpatient follow-up. # Iron deficient anemia: Hemoglobin has remained stable. No signs of bleeding. transfusion threshold hemoglobin less than 8, repeat CBC, CMP, magnesium ordered for the morning #History of asplenia: Monitor closely for infection. #Cirrhosis: Diagnosed on imaging during a previous visit, has been evaluated by GI and recommends advanced MRI in [place] to further evaluate cirrhotic like changes on CT. This is being set up. #Physical deconditioning #Depression ? Patient's recently. Had gone to rehab for therapy. Was participating well with PT and OT. Will reconsult PT and OT while admitted. ? Mood stable, continue home duloxetine 60 mg daily, nortriptyline 25 mg daily. - Melatonin 5 mg nightly for sleep Chronic medical problems: #Paroxysmal A-fib: Currently rate controlled. Continue home Eliquis 5 mg twice daily. Hold home metoprolol due to hypotension. #CAD: Holding aspirin and statin DNR/DNI DVT prophylaxis: Eliquis Cardiac diet
[2024-11-30 16:00] VITALS: BP 118/53; PULSE 79; PULSE 90; RESP 18; TEMP 36.7; O2SAT 99
--- NOTE | 2024-11-30 16:30 | PC.NURSE ---
Pt is A&Ox4. Vital signs stable tolerating baseline of 2L NC. Bumex gtt infusing per APR at 10mL/hr. Adequate urinary output. Strict I&O's. Pt educated again today on 1500mL fluid restriction. Pt receiving potassium replacement scheduled per APR. Silicone dressing in place on coccyx for prevention. Pt offered Q2 turns and repositioning. Pt5 refused. Pt sitting up in the chair with no further needs voiced at this time. Call light within reach.
[2024-11-30 20:00] VITALS: BP 127/66; PULSE 80; RESP 17; TEMP 36.8; O2SAT 94
[2024-11-30] MEDS: MELATONIN 5MG TABLET 5 MG PO (20:22)
[2024-11-30] MEDS: ACETAMINOPHEN 325MG TAB 650 MG PO (23:57)
[2024-11-30] MEDS: ZOLPIDEM TARTRATE 5 MG TABLET PO (23:57)
[2024-12-01] VITALS (7 sets, daily range): BP systolic 103–144; BP diastolic 59–80; PULSE 60–76; RESP 16–18; TEMP 36.7–37; O2SAT 93–98; BMI 38.7; BMI 38.3
--- NOTE | 2024-12-01 04:04 | PC.NURSE ---
Pt A&OX4 and has remained on 2L nasal cannula. Bumex gtt has remained infusing at 10ml/hr. She has remained on a 1500 ml fluid restriction. She did complain of a headache once and was medicated per MAR. She has remained afib on tele. No other complaints at this time, call light within reach.
[2024-12-01 06:48] LABS: Hematocrit 32.9 % (37.0-47.0); Hemoglobin 9.6 g/dL (12.2-16.2); Immature Granulocytes % 0.3 %; Mean Corpuscular HGB Conc 29.2 g/dL (31.8-35.4); Mean Corpuscular Hemoglobin 24.3 pg (27.0-31.2); Mean Corpuscular Volume 83.3 fl (81-99); Nucleated Red Blood Cells % 0 %; Platelet Count 462 K/mm3 (142-424); Red Blood Count 3.95 M/mm3 (4.20-5.40); Red Cell Distribution Width-SD 71.7 fL; White Blood Count 10.5 K/mm3 (4.8-10.8)
[2024-12-01 07:05] LABS: Albumin Level 3.6 g/dl (3.5-5.0); Chloride 81 mmol/L (98-107); Potassium 3.1 mmoL/L (3.5-5.1); Sodium 138 mmol/L (136-145)
[2024-12-01 07:08] LABS: Alanine Aminotransferase 12 U/L (12-78); Albumin/Globulin Ratio 0.8 (1.1-1.8); Alkaline Phosphatase 156 U/L (38-126); Aspartate Amino Transferase 30 U/L (14-36); Bilirubin,Total 0.6 mg/dl (0.2-1.3); Blood Urea Nitrogen 33 mg/dl (7-17); Calcium 9.6 mg/dl (8.4-10.2); Creatinine Clearance Estimated 77 mL/min (50-200); Creatinine,Serum 1.10 mg/dl (0.52-1.04); Estimated Glomerular Filt Rate 49 ml/min (>60); GFR (African American) 59 ML/MIN (>60); Globulin 4.4 g/dL (1.3-3.2); Glucose 133 mg/dl (74-100); Total Protein,Serum 8.0 g/dl (6.3-8.2)
[2024-12-01 07:30] LABS: Anion Gap 11.1 mEq/L (5-15); Carbon Dioxide 49 mmol/L (22.0-30.0)
[2024-12-01 07:40] LABS: Magnesium 1.7 mg/dl (1.6-2.3)
--- NOTE | 2024-12-01 09:18 | EXP.PULM.PN ---
Subjective *Date: 12/01/24 *Time: 11:57 Interval history: No acute respiratory events over the weekend. Patient denies any new respiratory complaints. Pulmonology Exam Inpatient Vital signs and Labs for Last 24 Hours: Temp Pulse Resp BP Pulse Ox O2 Del Method O2 Flow Rate 98.4 F 70 18 124/77 98 Nasal Cannula 2 12/01/24 07:51 12/01/24 08:00 12/01/24 07:51 12/01/24 07:51 12/01/24 07:51 12/01/24 07:51 12/01/24 07:51 Laboratory Results - last 24 hr 12/01/24 06:29: WBC 10.5, RBC 3.95 L, Hgb 9.6 L, Hct 32.9 L, MCV 83.3, MCH 24.3 L, MCHC 29.2 L, RDW 23.8 H, Plt Count 462 H, MPV 10.4, Neut % (Auto) 63.3, Lymph % (Auto) 15.4, [place] % (Auto) 12.9 H, Eos % (Auto) 6.6, Baso % (Auto) 1.5, Neut # (Auto) 6.7, Lymph # (Auto) 1.6, [place] # (Auto) 1.4 H, Eos # (Auto) 0.7 H, Baso # (Auto) 0.2, Sodium 138, Potassium 3.1 L, Chloride 81 L, Carbon Dioxide 49 H*, Anion Gap 11.1, BUN 33 H, Creatinine 1.10 H, Estimated Creat Clear 77, Estimated GFR 49 L, Est GFR ( Amer) 59, Glucose 133 H, Calcium 9.6, Magnesium 1.7, Total Bilirubin 0.6, AST 30 D, ALT 12, Alkaline Phosphatase 156 H, Total Protein 8.0, Albumin 3.6, Globulin 4.4 H, Albumin/Globulin Ratio 0.8 L Temp Pulse Resp BP Pulse Ox O2 Del Method O2 Flow Rate 98.4 F 76 17 132/77 96 Nasal Cannula 2 11/19/24 04:00 11/19/24 06:30 11/19/24 06:30 11/19/24 06:00 11/19/24 06:30 11/19/24 06:30 11/19/24 06:30 Laboratory Results - last 24 hr 11/18/24 15:52: WBC 11.4 H, RBC 3.66 L, Hgb 8.8 L, Hct 30.4 L, MCV 83.1, MCH 24.0 L, MCHC 28.9 L, RDW 26.7 H*, Plt Count 417, MPV 10.3, Neut % (Auto) 66.2, Lymph % (Auto) 12.2, [place] % (Auto) 13.6 H, Eos % (Auto) 6.6, Baso % (Auto) 1.0, Neut # (Auto) 7.6, Lymph # (Auto) 1.4, [place] # (Auto) 1.6 H, Eos # (Auto) 0.8 H, Baso # (Auto) 0.1, Total Counted 100, Neutrophils % (Manual) 67, Lymphocytes % (Manual) 14, Monocytes % (Manual) 13 H, Eosinophils % (Manual) 5 H, Basophils % (Manual) 1.0, Platelet Estimate Slight increase, Giant Platelets 1+, Polychromasia 1+, Hypochromasia 1+, Poikilocytosis 1+, Anisocytosis 1+, Microcytosis 1+, Macrocytosis 1+, Target Cells 1+, Tear Drop Cells 1+, [place] Cells 1+, Sodium 137, Potassium 3.3 L, Chloride 89 L, Carbon Dioxide 39 H, Anion Gap 12.3, BUN 18 H, Creatinine 1.00, Estimated Creat Clear 45, Estimated GFR 55 L, Est GFR ( Amer) 66, Glucose 109 H, Calcium 9.1, Magnesium 2.0, Total Bilirubin 0.9, AST 23, ALT 13, Alkaline Phosphatase 208 H, Troponin I 0.02, NT-Pro-B Natriuret Pep 3830 H, Total Protein 7.3, Albumin 3.7, Globulin 3.6 H, Albumin/Globulin Ratio 1.0 L 11/19/24 05:33: WBC 9.6, RBC 3.46 L, Hgb 8.3 L, Hct 28.6 L, MCV 82.7, MCH 24.0 L, MCHC 29.0 L, RDW 26.8 H*, Plt Count 386, MPV 10.4, Neut % (Auto) 63.9, Lymph % (Auto) 13.8, [place] % (Auto) 13.5 H, Eos % (Auto) 7.3, Baso % (Auto) 1.1, Neut # (Auto) 6.1, Lymph # (Auto) 1.3, [place] # (Auto) 1.3 H, Eos # (Auto) 0.7 H, Baso # (Auto) 0.1, Sodium 136, Potassium 3.4 L, Chloride 91 L, BUN 16, Creatinine 0.90, Estimated Creat Clear 45, Estimated GFR 62, Est GFR ( Amer) 75, Glucose 154 H D, Calcium 8.3 L, Magnesium 1.9, Total Bilirubin 0.7, AST 23, ALT 11 L, Alkaline Phosphatase 175 H, Total Protein 6.7, Albumin 3.3 L D, Globulin 3.4 H, Albumin/Globulin Ratio 1.0 L I & O for Labs for Last 24 Hours: Intake & Output 11/28/24 11/29/24 11/30/24 12/01/24 23:59 23:59 23:59 23:59 Intake Total 1500.000 / 1500.000 780 / 1488 2319.333 / 2319.333 420 / 420 Output Total 3475 / 3475 1700 / 2450 3500 / 4300 2450 / 2450 Balance -1975.000 / -1975.000 -920 / -962 -1180.667 / -1980.667 -2029 / -2029 Weight 247 lb 1.6 oz 243 lb 240 lb 230 lb Intake & Output 11/16/24 11/17/24 11/18/24 11/19/24 23:59 23:59 23:59 23:59 Intake Total 240 / 240 81.333 / 81.333 Output Total 1151 / 1601 1350 / 1350 Balance -911 / -1361 -1268.667 / -1268.667 Weight 256 lb 2.834 oz 257 lb 15.053 oz Microbiology Reports for the Last 24 Hours: Microbiology 11/28/24 02:26 Sputum - Expectorated Sputum Gram Stain - Final 11/28/24 02:26 Sputum - Expectorated Sputum Sputum Culture - Preliminary Constitutional: Present moderate distress Head: Present normocephalic and atraumatic ENT: Present normal exam, normal oropharynx and mucous membranes moist Neck: Present normal inspection and full ROM Respiratory: Present respiratory distress and able to speak in complete sentences; Absent prolonged expiratory phase, rhonchi, wheezes or diminished air movement Cardiac: Present S1/S2, Tachycardia and radial pulses present GI: Present soft and distention; Absent tenderness or guarding Rectal (female): Present deferred (female): Present deferred Skin: Present intact; Absent cyanosis or jaundice Neuro: Present alert, awake and oriented x 3 Extremities: Present normal inspection and edema; Absent clubbing or cyanosis Psychiatric: Present normal affect and cooperative Assessment and Plan *Assessment and plan (1) Pulmonary hypertension: Status: Chronic Category: Medical Code(s): I27.20 - Pulmonary hypertension, unspecified (2) Acute and chronic respiratory failure with hypoxia: Status: Acute Category: Medical Code(s): J96.21 - Acute and chronic respiratory failure with hypoxia (3) Hilar lymphadenopathy: Status: Acute Category: Medical Code(s): R59.0 - Localized enlarged lymph nodes (4) Mediastinal lymphadenopathy: Status: Acute Category: Medical Code(s): R59.0 - Localized enlarged lymph nodes (5) Bronchomalacia: Status: Acute Category: Medical Code(s): J98.09 - Other diseases of bronchus, not elsewhere classified Plan Ms. Flannery is a 69 year-old female no significant smoking history, obesity, high risk for sleep apnea recently had a diagnosis of pulmonary hypertension status post right heart cath showed pulmonary hypertension with increased PVR at 12 ureña which also showed to have elevated wedge pressure at 18 initiated on a combination of Tadanafil and Macicentan for her pulmonary arterial hypertension, since then having frequent hospital admissions for worsening respiratory distress hypertension dizziness and volume overload recently discharged from the hospital after volume optimization presented worsening respiratory distress and pulmonary was called for further evaluation and management. Patient CT abdomen findings are also consistent with cirrhosis. Child-Cruz score A. Chest x-ray no dense consolidative/airspace changes. Daytime blood gas consistent with obesity hypoventilation syndrome. Cannot completely rule out concomitant sleep apnea given her morbid obesity. Right heart cath 11/21/2024 PCWP at 18. PA at 92 x 38 with a mean of 56 mmHg, with PVR at 12 ureña. Continue to receive tadalafil 20 mg daily. Continue to hold macitentan given concerning recurrent admissions for volume overload. Continue to receive tadalafil, tolerating well. CT chest no dense consolidative airspace changes. Bilateral diffuse ground glass opacities. Continued show bilateral mediastinal and hilar lymphadenopathy, stable from her CT scan from October and July 2024. Likely reactive/secondary to volume overload however THE possibility of sarcoidosis as the Etiology of patient's pulmonary arterial hypertension cannot be completely ruled out at this point of time. Patient CT scan from October and November also concerning for bronchomalacia. Interval update: No acute respiratory events overnight. Continued to receive IV diuretics with negative volume status. Stable renal function. Sputum cultures no organisms seen. Prior sputum cultures grew Staph aureus Plan: Given good tolerance with current level 20, improved hemodynamics and volume status and no hypotensive episodes in the last 72 hours, will increase tadalafil from 20 to 40 mg daily Incentive spirometry and flutter valve No need for antibiotics from pulmonary standpoint Continue volume optimization and management for other comorbidities contributing to her type III PH per cardiology. Continue oxygen supplementation to maintain O2 saturation goal of 90% and above, needing 1 to 2 L nasal cannula Follow-up with GI as an outpatient basis for her abnormal CT finding consistent with cirrhosis. Patient is due to undergo sleep study as an outpatient basis. Will schedule lab polysomnography testing. For now continue oxygen supplementation also at night to maintain O2 saturation goal of 90% and above She continue to receive Eliquis twice daily for her paroxysmal A-fib.
[2024-12-01] MEDS: MAGNESIUM SULFATE IN WATER 2 GM/50 ML PIGGYBACK IV ×2 (09:33→10:39)
[2024-12-01] MEDS: POTASSIUM CHLORIDE 20MEQ TAB 40 MEQ PO ×3 (09:34→16:26)
[2024-12-01] MEDS: POTASSIUM CHLORIDE 20MEQ TAB 20 MEQ PO ×3 (09:34→20:39)
[2024-12-01] MEDS: TADALAFIL 20 MG 20 EACH PO (09:35)
[2024-12-01] MEDS: APIXABAN 5MG TABLET 5 MG PO ×2 (09:35→20:38)
[2024-12-01] MEDS: FAMOTIDINE 20MG TABLET 20 MG PO (09:35)
[2024-12-01] MEDS: POLYETHYLENE GLYCOL 3350 17 GM PACKET PO (09:36)
[2024-12-01] MEDS: DOXYCYCLINE HYCL 100 MG TABLET PO ×2 (09:36→20:38)
[2024-12-01] MEDS: SENNOSIDES 8.6MG/DOCUSATE 50MG TABLET 1 TAB PO (09:36)
[2024-12-01] MEDS: BUMETANIDE 10 MG in 0.9 % SODIUM CHLORIDE 60 ML IV (09:46)
--- NOTE | 2024-12-01 10:47 | EXP.CARD.PN ---
Subjective Subjective Date: 12/01/24 Time: 09:00 Principal diagnosis: Right heart failure/Pulm HTN Interval history: This is a 69 year old female who is currently being treated for pulmonary hypertension and right heart failure. She continues to diurese well. She has had significant improvement in her bilateral lower extremity edema. She states her shortness of breath has resolved. She denies any chest pain or pressure. She denies any fever, chills, nausea, vomiting, diarrhea. Exam Data for Last 24 hours Vital signs and Labs for Last 24 Hours: Temp Pulse Resp BP Pulse Ox O2 Del Method O2 Flow Rate 98.4 F 70 18 124/77 98 Nasal Cannula 2 12/01/24 07:51 12/01/24 08:00 12/01/24 07:51 12/01/24 07:51 12/01/24 07:51 12/01/24 09:00 12/01/24 09:00 Laboratory Results - last 24 hr 12/01/24 06:29: WBC 10.5, RBC 3.95 L, Hgb 9.6 L, Hct 32.9 L, MCV 83.3, MCH 24.3 L, MCHC 29.2 L, RDW 23.8 H, Plt Count 462 H, MPV 10.4, Neut % (Auto) 63.3, Lymph % (Auto) 15.4, Person % (Auto) 12.9 H, Eos % (Auto) 6.6, Baso % (Auto) 1.5, Neut # (Auto) 6.7, Lymph # (Auto) 1.6, Person # (Auto) 1.4 H, Eos # (Auto) 0.7 H, Baso # (Auto) 0.2, Sodium 138, Potassium 3.1 L, Chloride 81 L, Carbon Dioxide 49 H*, Anion Gap 11.1, BUN 33 H, Creatinine 1.10 H, Estimated Creat Clear 77, Estimated GFR 49 L, Est GFR ( Amer) 59, Glucose 133 H, Calcium 9.6, Magnesium 1.7, Total Bilirubin 0.6, AST 30 D, ALT 12, Alkaline Phosphatase 156 H, Total Protein 8.0, Albumin 3.6, Globulin 4.4 H, Albumin/Globulin Ratio 0.8 L I & O for Last 24 hours: Intake & Output 11/28/24 11/29/24 11/30/2413/25 23:59 23:59 23:59 23:59 Intake Total 1500.000 / 1500.000 780 / 1488 2319.333 / 2319.333 810 / 810 Output Total 3475 / 3475 1700 / 2450 3500 / 4300 3650 / 3650 Balance -1975.000 / -1975.000 -920 / -962 -1180.667 / -1980.667 -2840 / -2840 Weight 247 lb 1.6 oz 243 lb 240 lb 230 lb Microbiology Reports for the Last 24 Hours: Microbiology 11/28/24 02:26 Sputum - Expectorated Sputum Gram Stain - Final 11/28/24 02:26 Sputum - Expectorated Sputum Sputum Culture - Preliminary Constitutional Constitutional: no acute distress *Routine Respiratory Exam Respiratory: Present decreased breath sounds and crackles; Absent wheezes *Routine Cardiovascular Exam Cardiovascular: Present irregularly irregular *Routine Abdominal Exam Abdominal: Present obese *Routine Extremities Exam Extremities: Present edema Progress Note: A&P Assessment and plan (1) (HFpEF) heart failure with preserved ejection fraction: Status: Acute (2) Pulmonary hypertension: Status: Chronic (3) Atrial fibrillation: Status: Chronic (4) Acute and chronic respiratory failure with hypoxia: Status: Acute (5) Hilar lymphadenopathy: Status: Acute (6) Mediastinal lymphadenopathy: Status: Acute (7) Bronchomalacia: Status: Acute (8) Dyspnea on exertion: Status: Acute (9) HLD (hyperlipidemia): Status: Chronic (10) Diabetes mellitus type 2 in obese: Status: Chronic (11) MANSI (obstructive sleep apnea): Status: Acute (12) Hypokalemia: Status: Acute Assessment and Plan Assessment and Plan for All Diagnoses:: Plan: 1. The patient has been diuresed with IV Lasix. She remains on a Bumex drip this morning. She has had about any -26 L since being admitted for her acute on chronic HFpEF, pulmonary hypertension and acute on chronic right heart failure. She states that she is feeling so much better. Stop Bumex drip and start her on Bumex 2 mg IV twice daily for diuresis at this time so we can hopefully get her converted over to oral diuretics tomorrow. 2. Consider a Cordella implant when she is out of the hospital for greater than 30 days for her acute on chronic HFpEF and pulmonary hypertension. 3. Paroxysmal atrial fibrillation is now rate controlled. Will start her on low-dose metoprolol for rate control. 4. She is on Eliquis for anticoagulation. 5. Continue metolazone for diuresis as well. 6. The patient is morbidly obese. Weight loss is highly encouraged. 7. Her blood pressure is well-controlled. 8. Her LDL goal is less than 100. Will get a lipid panel. 9. The patient is hypokalemic. She is getting her potassium replaced. 10. Further recommendations will be made pending the patient's response to treatment. Thank you for the opportunity to help participate in the care of this patient. All recommendations and orders are per Dr. Carreno.
[2024-12-01] MEDS: MAGNESIUM CITRATE 296ML BOTTLE 296 ML PO (11:43)
[2024-12-01] MEDS: BUMETANIDE 1MG/4ML VIAL 2 MG IV ×2 (11:44→16:25)
[2024-12-01] MEDS: METOPROLOL SUCCINATE XL 25MG TABLET 12.5 MG PO (11:45)
--- NOTE | 2024-12-01 13:29 | EXP.ACUTE.PN ---
Subjective *Date: 12/01/24 *Time: 13:29 Interval history: Patient feeling well this morning. Stable on 2 L oxygen. No nausea or vomiting. Diuresing well. -2-1/2 L in the past 24 hours. Medical Exam Vital signs and Labs for Last 24 Hours: Vital Signs Temp Pulse Pulse Resp BP Pulse Ox O2 Del Method 12/01/24 12:00 98.5 F 76 18 130/80 98 Nasal Cannula 12/01/24 11:00 Nasal Cannula 12/01/24 09:00 Nasal Cannula 12/01/24 08:00 Nasal Cannula 12/01/24 08:00 70 12/01/24 07:51 98.4 F 75 18 124/77 98 Nasal Cannula 12/01/24 06:35 Nasal Cannula 12/01/24 05:00 Nasal Cannula 12/01/24 04:00 70 12/01/24 04:00 98.2 F 63 16 144/59 H 94 L Nasal Cannula 12/01/24 03:00 Nasal Cannula 12/01/24 01:00 Nasal Cannula 12/01/24 00:00 70 12/01/24 00:00 98.6 F 74 16 117/62 93 L Nasal Cannula 11/30/24 23:00 Nasal Cannula 11/30/24 20:46 Nasal Cannula 11/30/24 20:00 80 11/30/24 20:00 Nasal Cannula 11/30/24 20:00 98.3 F 80 17 127/66 94 L Nasal Cannula 11/30/24 18:42 Nasal Cannula 11/30/24 17:00 Room Air 11/30/24 16:00 90 11/30/24 16:00 98.0 F 79 18 118/53 L 99 Nasal Cannula 11/30/24 15:00 Nasal Cannula O2 Flow Rate 12/01/24 12:00 2 12/01/24 11:00 12/01/24 09:00 2 12/01/24 08:00 2 12/01/24 08:00 12/01/24 07:51 2 12/01/24 06:35 2 12/01/24 05:00 2 12/01/24 04:00 12/01/24 04:00 2 12/01/24 03:00 2 12/01/24 01:00 2 12/01/24 00:00 12/01/24 00:00 2 11/30/24 23:00 2 11/30/24 20:46 2 11/30/24 20:00 11/30/24 20:00 2 11/30/24 20:00 2 11/30/24 18:42 2 11/30/24 17:00 11/30/24 16:00 11/30/24 16:00 2 11/30/24 15:00 2 Intake and Output 11/30/24 12/01/24 12/01/24 23:59 07:59 15:59 Intake Total 331 / 2319.333 420 / 1080 660 / 1080 Output Total 650 / 4300 2450 / 4850 2400 / 4850 Balance -319 / -1980.667 -2030 / -3770 -1740 / -3770 Intake: Intake, Oral Amount 2027 420 / 930 510 / 930 Intake, Total IV Amount 91 / 291.333 150 / 150 Bumetanide 10 mg In 0.9 % 91 / 291.333 100 / 100 Sodium Chloride 60 ml @ 10 mls/ hr IV .Q10H KATHY Rx#:[id number] Magnesium Sulfate in Water 2 gm 50 / 50 In 50 ml @ 50 mls/hr IV Q1H KATHY Rx#:[id number] Output: Output, Urine Amount 650 / 4300 2450 / 4850 2400 / 4850 Other: Number of Unmeasured Voids 0 0 0 Weight 104.326 kg Patient Weight 12/01/24 23:59 Weight 104.326 kg Laboratory Results - last 24 hr 12/01/24 06:29: WBC 10.5, RBC 3.95 L, Hgb 9.6 L, Hct 32.9 L, MCV 83.3, MCH 24.3 L, MCHC 29.2 L, RDW 23.8 H, Plt Count 462 H, MPV 10.4, Neut % (Auto) 63.3, Lymph % (Auto) 15.4, [place] % (Auto) 12.9 H, Eos % (Auto) 6.6, Baso % (Auto) 1.5, Neut # (Auto) 6.7, Lymph # (Auto) 1.6, [place] # (Auto) 1.4 H, Eos # (Auto) 0.7 H, Baso # (Auto) 0.2, Sodium 138, Potassium 3.1 L, Chloride 81 L, Carbon Dioxide 49 H*, Anion Gap 11.1, BUN 33 H, Creatinine 1.10 H, Estimated Creat Clear 77, Estimated GFR 49 L, Est GFR ( Amer) 59, Glucose 133 H, Calcium 9.6, Magnesium 1.7, Total Bilirubin 0.6, AST 30 D, ALT 12, Alkaline Phosphatase 156 H, Total Protein 8.0, Albumin 3.6, Globulin 4.4 H, Albumin/Globulin Ratio 0.8 L I & O for Labs for Last 24 Hours: Intake & Output 11/28/24 11/29/24 11/30/24 12/01/24 23:59 23:59 23:59 23:59 Intake Total 1500.000 / 1500.000 780 / 1488 2319.333 / 2319.333 1080 / 1080 Output Total 3475 / 3475 1700 / 2450 3500 / 4300 4850 / 4850 Balance -1975.000 / -1975.000 -920 / -962 -1180.667 / -1980.667 -3770 / -3770 Weight 112.083 kg 110.223 kg 108.862 kg 104.326 kg Microbiology Reports for the Last 24 Hours: Microbiology 11/28/24 02:26 Sputum - Expectorated Sputum Gram Stain - Final 11/28/24 02:26 Sputum - Expectorated Sputum Sputum Culture - Preliminary Constitutional: Present no acute distress, obese, chronically ill appearing and cooperative Head: Present atraumatic and normocephalic ENT: Present normal exam Neck: Present normal inspection Respiratory: Present rhonchi, distant breath sounds and diminished air movement; Absent accessory muscle use, wheezes or crackles Cardiac: Present Reg Rate and Rhythm and Audible Murmur GI: Present soft and normal bowel sounds; Absent distention or tenderness Extremities: Present normal inspection and full ROM; Absent edema Skin: Present intact and wounds; Absent erythema Neuro: Present Grossly Intact, alert, awake, oriented x 3 and moves all extremities Assessment and Plan *Assessment and plan (1) (HFpEF) heart failure with preserved ejection fraction: Status: Acute Qualifiers: Heart failure chronicity: acute on chronic Qualified Code(s): I50.33 - Acute on chronic diastolic (congestive) heart failure Category: Medical Code(s): I50.30 - Unspecified diastolic (congestive) heart failure (2) Cor pulmonale: Status: Acute Category: Medical Code(s): I27.81 - Cor pulmonale (chronic) (3) Hyponatremia: Status: Acute Category: Medical Code(s): E87.1 - Hypo-osmolality and hyponatremia (4) Primary pulmonary hypertension: Problem Comment: Type I pulmonary hypertension Status: Chronic Category: Medical Code(s): I27.0 - Primary pulmonary hypertension (5) Hypertension: Status: Chronic Qualifiers: Hypertension type: primary hypertension Qualified Code(s): I10 - Essential (primary) hypertension Category: Medical Code(s): I10 - Essential (primary) hypertension (6) Asplenia: Status: Chronic Category: Medical Code(s): Q89.01 - Asplenia (congenital) (7) Severe tricuspid regurgitation: Status: Chronic Category: Medical Code(s): I07.1 - Rheumatic tricuspid insufficiency (8) Diabetes mellitus type 2 in obese: Status: Chronic Category: Medical Code(s): E11.69 - Type 2 diabetes mellitus with other specified complication; E66.9 - Obesity, unspecified (9) Obesity: Problem Comment: Class II Status: Chronic Qualifiers: Obesity type: due to excess calories Obesity classification: adult class 3 (BMI >= 40) Serious obesity comorbidity presence: with serious comorbidity Body mass index: BMI 40.0-44.9 Qualified Code(s): E66.813 - Obesity, class 3; Z68.41 - Body mass index [BMI] 40.0-44.9, adult Category: Medical Code(s): E66.9 - Obesity, unspecified (10) Atrial fibrillation: Status: Chronic Qualifiers: Atrial fibrillation type: longstanding persistent Qualified Code(s): I48.11 - Longstanding persistent atrial fibrillation Category: Medical Code(s): I48.91 - Unspecified atrial fibrillation (11) Cirrhosis of liver: Status: Chronic Qualifiers: Hepatic cirrhosis type: unspecified hepatic cirrhosis Ascites presence: unspecified Qualified Code(s): K74.60 - Unspecified cirrhosis of liver Category: Medical Code(s): K74.60 - Unspecified cirrhosis of liver Plan Rica Flannery is a 69-year-old female with a medical history significant for severe right heart failure/cor pulmonale from pulmonary hypertension, asplenia, paroxysmal A-fib, CAD, type 2 diabetes, anxiety/depression, GERD presents with dyspnea for follow-up with cardiology and pulmonology. Admitted for recurrent HFpEF exacerbation, and further optimization of pulmonary hypertension medications. Diuresing well. Discontinuing drip today. Transition to twice daily IV Bumex for 24 hours, if continues to be negative, will transition to oral tomorrow and plan for discharge on Sunday. Problems addressed as follows: #Acute hypoxic respiratory failure #Pulmonary hypertension with cor pulmonale #Severe RV failure with cor pulmonale #Severe tricuspid regurgitation #Acute on chronic HFpEF #Medication side effect ? Patient has underlying pulmonary hypertension with concomitant cor pulmonale, possibly related to undiagnosed sleep apnea versus history of hypertension. ? RHC on 11/21/2024 at our facility consistent with severe pulmonary hypertension. Not classified as type II. Most consistent with type III pulmonary hypertension per pulmonology. ? Discussed with pulmonology on admission, will increase tadalafil to 40 mg p.o. twice daily. - Discontinue Bumex drip. Transition to 2 mg IV twice daily. Will continue metolazone 2.5 mg daily and add 3 doses of acetazolamide due to contraction alkalosis. - Plan to transition to oral Bumex tomorrow if remains negative fluid status today. Negative over 25 L since admission. ? CT chest on 11/28/2024 continues to reveal pulmonary edema though improving - Currently on 2 L nasal cannula, wean as tolerated. ? Discussed extensively with cardiology and pulmonology, cardiology reached out to [facility] pulmonary hypertension clinic who recommended outpatient follow-up. Patient and family to discuss their preference for follow-up. # Iron deficient anemia: Hemoglobin 9.6. No signs of bleeding. Transfusion threshold hemoglobin less than 8, repeat CBC, CMP, magnesium ordered for the morning #History of asplenia: Monitor closely for infection. #Cirrhosis: Diagnosed on imaging during a previous visit, has been evaluated by GI and recommends advanced MRI in [place] to further evaluate cirrhotic like changes on CT. This is being set up. #Physical deconditioning #Depression ? Patient's recently. Had gone to rehab for therapy. Was participating well with PT and OT. Will reconsult PT and OT while admitted. ? Mood stable, continue home duloxetine 60 mg daily, nortriptyline 25 mg daily. - Melatonin 5 mg nightly for sleep Chronic medical problems: #Paroxysmal A-fib: Currently rate controlled. Continue home Eliquis 5 mg twice daily. Hold home metoprolol due to hypotension. #CAD: Holding aspirin and statin DNR/DNI DVT prophylaxis: Eliquis Cardiac diet
--- NOTE | 2024-12-01 13:55 | HMH.IPREAS ---
Rehab Re-assessment Rehab IP Re-assessment Start: 12/01/24 13:50 Freq: Status: Active Protocol: Document 12/01/24 13:51 PHOTANNER (Rec: 12/01/24 13:55 PHORONESIMO [id number]) E-signed By Abraham Mcdonough, PT Subjective Subjective Subjective 69-year-old female with a medical history significant for severe right heart failure/cor pulmonale from pulmonary hypertension, asplenia, paroxysmal A-fib, CAD , type 2 diabetes, anxiety/depression, GERD. Pt has been consistently treated by therapy services since her adm to [facility]. She continues to require oxygen via NC at all times at 2 L/min. Rehab IP PT Reassessment Eval Objective Appearance Patient Behavior Appropriate Patient Orientation Person,Place,Time Difficulty following none instructions Speech Pattern Clear Ambulation Patient Able to Yes Ambulate Ambulation Observation IP General Gait Wide Based Gait,Shuffling Step Pattern Observation Ambulation Distance 10 (feet) Ambulation Assistive Rolling Walker Device Ambulation Ability Contact Guard/Hand Hold Balance Ability to Arise Able, uses arms to help Sitting Balance Steady, safe Standing Balance Steady, wide stance Dynamic Sitting Good Balance Ability Dynamic Standing Fair Balance Ability Transfers Bed Transfer Ability Moderate x 1 (50% assist) Chair Transfer Minimal x 2 (25% assist) Ability Sit to Stand Bed Moderate x 1 (50% assist) Transfer Ability Sit to Stand Chair Moderate x 1 (50% assist) Transfer Ability Rehab IP PT Reassessment of problems, goals, plan Problems Date of Evaluation: 12/01/24 PT IP Problems Bed Mobility,Transfers,Gait,Self care Rehab Potential Rehab Potential Good Plan PT Intervention Plan Bed Mobility,Transfers,Gait,Self care,Therapeutic Exercise PT Plan Frequency Daily Duration LOS Discharge Goals Bed Transfer Ability Minimal x 1 (25% assist) Sit to Stand Chair Minimal x 1 (25% assist) Transfer Ability Ambulation Assistive Rolling Walker Device Ambulation Distance 30 (feet) Discharge Plan PT Discharge Plan Pt remains limited in her mobility by fatigue. Pt not safe to return home alone at this time d/t current mobility level. Pt most appropriate for return to rehab to address deficits and maximize safety with mobility. Pt would benefit from skilled acute care PT while at [facility]. G -code Required No IP Reassessment Inpatient Rehab No Reassessment Performed PHYSICIAN CERTIFICATION: I certify the specified therapy services for Rica Dahl are required, authorized, and reviewed every 30 days.
--- NOTE | 2024-12-01 18:08 | PC.NURSE ---
A/Ox4. remains on 2LNC. O2 dropped 86%-88% on 1LNC. bumex gtt stopped, 2mg BID IV push ordered. potassium given per electrolyte protocol and KATHY per MD. replaced magnesium. patient did not have a BM this shift. up to chair for most of the shift. IS at bedside, educated patient about IS use, patient demonstrated understanding. patient ambulated around room with SRNA this shift. no complaints at this time, family at bedside, call light within reach.
[2024-12-01] MEDS: MELATONIN 5MG TABLET 5 MG PO (20:38)
[2024-12-02] VITALS (7 sets, daily range): BP systolic 94–162; BP diastolic 52–81; PULSE 59–75; RESP 16–18; TEMP 36.5–37; O2SAT 96–100; BMI 38.3
--- NOTE | 2024-12-02 05:17 | PC.NURSE ---
no acute changes this shift. Pt remains on 2L NC. Pt has had multiple unmeasured voids d/t urine missing the hat in the toilet once, and incontinent voids in bed. Purewick in place at this time. Pt has had no complaints, has rested intermittently. VSS. call light in reach.
[2024-12-02 06:40] LABS: Hematocrit 31.5 % (37.0-47.0); Hemoglobin 9.1 g/dL (12.2-16.2); Immature Granulocytes % 0.4 %; Mean Corpuscular HGB Conc 28.9 g/dL (31.8-35.4); Mean Corpuscular Hemoglobin 24.1 pg (27.0-31.2); Mean Corpuscular Volume 83.6 fl (81-99); Nucleated Red Blood Cells % 0 %; Platelet Count 448 K/mm3 (142-424); Red Blood Count 3.77 M/mm3 (4.20-5.40); Red Cell Distribution Width-SD 71.5 fL; White Blood Count 10.9 K/mm3 (4.8-10.8)
[2024-12-02 07:00] LABS: Albumin Level 3.3 g/dl (3.5-5.0); Chloride 80 mmol/L (98-107); Sodium 134 mmol/L (136-145)
[2024-12-02 07:01] LABS: Potassium 3.3 mmoL/L (3.5-5.1)
[2024-12-02 07:03] LABS: Alanine Aminotransferase 10 U/L (12-78); Albumin/Globulin Ratio 0.8 (1.1-1.8); Alkaline Phosphatase 149 U/L (38-126); Aspartate Amino Transferase 23 U/L (14-36); Bilirubin,Total 0.5 mg/dl (0.2-1.3); Blood Urea Nitrogen 43 mg/dl (7-17); Creatinine Clearance Estimated 61 mL/min (50-200); Creatinine,Serum 1.40 mg/dl (0.52-1.04); Estimated Glomerular Filt Rate 37 ml/min (>60); GFR (African American) 45 ML/MIN (>60); Globulin 4.2 g/dL (1.3-3.2); Total Protein,Serum 7.5 g/dl (6.3-8.2)
[2024-12-02 07:04] LABS: Calcium 9.0 mg/dl (8.4-10.2); Glucose 138 mg/dl (74-100)
[2024-12-02 07:16] LABS: Anion Gap 9.3 mEq/L (5-15); Carbon Dioxide 48 mmol/L (22.0-30.0)
[2024-12-02 07:19] LABS: Magnesium 2.6 mg/dl (1.6-2.3)
[2024-12-02 07:38] LABS: Cholesterol 167 mg/dl (140-200); HDL Cholesterol 48 mg/dl (40-60); Triglycerides 62 mg/dl (30-150)
[2024-12-02] MEDS: POTASSIUM CHLORIDE 20MEQ TAB 20 MEQ PO ×3 (08:25→21:16)
[2024-12-02] MEDS: POLYETHYLENE GLYCOL 3350 17 GM PACKET PO (08:25)
[2024-12-02] MEDS: APIXABAN 5MG TABLET 5 MG PO ×2 (08:26→21:16)
[2024-12-02] MEDS: METOPROLOL SUCCINATE XL 25MG TABLET 12.5 MG PO (08:27)
[2024-12-02] MEDS: FAMOTIDINE 20MG TABLET 20 MG PO (08:27)
[2024-12-02] MEDS: SENNOSIDES 8.6MG/DOCUSATE 50MG TABLET 1 TAB PO (08:27)
[2024-12-02] MEDS: DOXYCYCLINE HYCL 100 MG TABLET PO (08:27)
[2024-12-02] MEDS: TADALAFIL 20 MG 40 EACH PO (08:29)
[2024-12-02] MEDS: BUMETANIDE 1 MG TABLET 2 MG PO ×2 (08:29→15:38)
--- NOTE | 2024-12-02 09:23 | P.PN_ITS ---
Subjective *Date: 12/02/24 *Time: 12:26 Interval history: No acute respiratory events overnight. Patient denies any new respiratory complaints. Cough improving. Pulmonology Exam Inpatient Vital signs and Labs for Last 24 Hours: Temp Pulse Resp BP Pulse Ox O2 Del Method O2 Flow Rate 98.6 F 71 16 96/61 L 96 Nasal Cannula 3 12/02/24 08:00 12/02/24 08:00 12/02/24 08:00 12/02/24 08:00 12/02/24 08:00 12/02/24 08:00 12/02/24 08:00 Laboratory Results - last 24 hr 12/02/24 05:50: WBC 10.9 H, RBC 3.77 L, Hgb 9.1 L, Hct 31.5 L, MCV 83.6, MCH 24.1 L, MCHC 28.9 L, RDW 23.7 H, Plt Count 448 H, MPV 10.9 H, Neut % (Auto) 65.0, Lymph % (Auto) 15.0, [place] % (Auto) 12.9 H, Eos % (Auto) 5.3, Baso % (Auto) 1.4, Neut # (Auto) 7.1, Lymph # (Auto) 1.6, [place] # (Auto) 1.4 H, Eos # (Auto) 0.6 H, Baso # (Auto) 0.2, Sodium 134 L, Potassium 3.3 L, Chloride 80 L, Carbon Dioxide 48 H*, Anion Gap 9.3, BUN 43 H D, Creatinine 1.40 H D, Estimated Creat Clear 61, Estimated GFR 37 L, Est GFR ( Amer) 45 L D, Glucose 138 H, Calcium 9.0, Magnesium 2.6 H D, Total Bilirubin 0.5, AST 23, ALT 10 L, Alkaline Phosphatase 149 H, Total Protein 7.5, Albumin 3.3 L, Globulin 4.2 H, Albumin/Globulin Ratio 0.8 L, Triglycerides 62, Cholesterol 167, LDL Cholesterol Direct 81.03 L, VLDL Cholesterol 12, HDL Cholesterol 48, Cholesterol/HDL Ratio 3.5 Temp Pulse Resp BP Pulse Ox O2 Del Method O2 Flow Rate 98.4 F 76 17 132/77 96 Nasal Cannula 2 11/19/24 04:00 11/19/24 06:30 11/19/24 06:30 11/19/24 06:00 11/19/24 06:30 11/19/24 06:30 11/19/24 06:30 Laboratory Results - last 24 hr 11/18/24 15:52: WBC 11.4 H, RBC 3.66 L, Hgb 8.8 L, Hct 30.4 L, MCV 83.1, MCH 24.0 L, MCHC 28.9 L, RDW 26.7 H*, Plt Count 417, MPV 10.3, Neut % (Auto) 66.2, Lymph % (Auto) 12.2, [place] % (Auto) 13.6 H, Eos % (Auto) 6.6, Baso % (Auto) 1.0, Neut # (Auto) 7.6, Lymph # (Auto) 1.4, [place] # (Auto) 1.6 H, Eos # (Auto) 0.8 H, Baso # (Auto) 0.1, Total Counted 100, Neutrophils % (Manual) 67, Lymphocytes % (Manual) 14, Monocytes % (Manual) 13 H, Eosinophils % (Manual) 5 H, Basophils % (Manual) 1.0, Platelet Estimate Slight increase, Giant Platelets 1+, Polychromasia 1+, Hypochromasia 1+, Poikilocytosis 1+, Anisocytosis 1+, Microcytosis 1+, Macrocytosis 1+, Target Cells 1+, Tear Drop Cells 1+, Filiberto Cells 1+, Sodium 137, Potassium 3.3 L, Chloride 89 L, Carbon Dioxide 39 H, Anion Gap 12.3, BUN 18 H, Creatinine 1.00, Estimated Creat Clear 45, Estimated GFR 55 L, Est GFR ( Amer) 66, Glucose 109 H, Calcium 9.1, Magnesium 2.0, Total Bilirubin 0.9, AST 23, ALT 13, Alkaline Phosphatase 208 H, Troponin I 0.02, NT-Pro-B Natriuret Pep 3830 H, Total Protein 7.3, Albumin 3.7, Globulin 3.6 H, Albumin/Globulin Ratio 1.0 L 11/19/24 05:33: WBC 9.6, RBC 3.46 L, Hgb 8.3 L, Hct 28.6 L, MCV 82.7, MCH 24.0 L , MCHC 29.0 L, RDW 26.8 H*, Plt Count 386, MPV 10.4, Neut % (Auto) 63.9, Lymph % (Auto) 13.8, [place] % (Auto) 13.5 H, Eos % (Auto) 7.3, Baso % (Auto) 1.1, Neut # (Auto) 6.1, Lymph # (Auto) 1.3, [place] # (Auto) 1.3 H, Eos # (Auto) 0.7 H, Baso # (Auto) 0.1, Sodium 136, Potassium 3.4 L, Chloride 91 L, BUN 16, Creatinine 0.90, Estimated Creat Clear 45, Estimated GFR 62, Est GFR ( Amer) 75, Glucose 154 H D, Calcium 8.3 L, Magnesium 1.9, Total Bilirubin 0.7, AST 23, ALT 11 L, Alkaline Phosphatase 175 H, Total Protein 6.7, Albumin 3.3 L D, Globulin 3.4 H, Albumin/Globulin Ratio 1.0 L I & O for Labs for Last 24 Hours: Intake & Output 11/29/24 11/30/24 12/01/24 12/02/24 23:59 23:59 23:59 23:59 Intake Total 780 / 1488 2319.333 / 2319.333 1697.833 / 1937.833 980 / 980 Output Total 1700 / 2450 3500 / 4300 5050 / 5050 300 / 300 Balance -920 / -962 -1180.667 / -1980.667 -3352.167 / -3112.167 680 / 680 Weight 243 lb 240 lb 230 lb 229 lb 15.991 oz Intake & Output 11/16/24 11/17/24 11/18/24 11/19/24 23:59 23:59 23:59 23:59 Intake Total 240 / 240 81.333 / 81.333 Output Total 1151 / 1601 1350 / 1350 Balance -911 / -1361 -1268.667 / -1268.667 Weight 256 lb 2.834 oz 257 lb 15.053 oz Microbiology Reports for the Last 24 Hours: Microbiology 11/28/24 02:26 Sputum - Expectorated Sputum Gram Stain - Final 11/28/24 02:26 Sputum - Expectorated Sputum Sputum Culture - Final Constitutional: Present moderate distress Head: Present normocephalic and atraumatic ENT: Present normal exam, normal oropharynx and mucous membranes moist Neck: Present normal inspection and full ROM Respiratory: Present respiratory distress and able to speak in complete sentences; Absent prolonged expiratory phase, rhonchi, wheezes or diminished air movement Cardiac: Present S1/S2, Tachycardia and radial pulses present GI: Present soft and distention; Absent tenderness or guarding Rectal (female): Present deferred (female): Present deferred Skin: Present intact; Absent cyanosis or jaundice Neuro: Present alert, awake and oriented x 3 Extremities: Present normal inspection and edema; Absent clubbing or cyanosis Psychiatric: Present normal affect and cooperative Assessment and Plan *Assessment and plan (1) Pulmonary hypertension: Status: Chronic Category: Medical Code(s): I27.20 - Pulmonary hypertension, unspecified (2) Acute and chronic respiratory failure with hypoxia: Status: Acute Category: Medical Code(s): J96.21 - Acute and chronic respiratory failure with hypoxia (3) Hilar lymphadenopathy: Status: Acute Category: Medical Code(s): R59.0 - Localized enlarged lymph nodes (4) Mediastinal lymphadenopathy: Status: Acute Category: Medical Code(s): R59.0 - Localized enlarged lymph nodes (5) Bronchomalacia: Status: Acute Category: Medical Code(s): J98.09 - Other diseases of bronchus, not elsewhere classified Plan Ms. Flannery is a 69 year-old female no significant smoking history, obesity, high risk for sleep apnea recently had a diagnosis of pulmonary hypertension status post right heart cath showed pulmonary hypertension with increased PVR at 12 escalona ds which also showed to have elevated wedge pressure at 18 initiated on a combination of Tadanafil and Macicentan for her pulmonary arterial hypertension, since then having frequent hospital admissions for worsening respiratory distress hypertension dizziness and volume overload recently discharged from the hospital after volume optimization presented worsening respiratory distress and pulmonary was called for further evaluation and management. Patient CT abdomen findings are also consistent with cirrhosis. Child-Cruz score A. Chest x-ray no dense consolidative/airspace changes. Daytime blood gas consistent with obesity hypoventilation syndrome. Cannot completely rule out concomitant sleep apnea given her morbid obesity. Right heart cath 11/21/2024 PCWP at 18. PA at 92 x 38 with a mean of 56 mmHg, with PVR at 12 ureña. Continue to receive tadalafil 20 mg daily. Continue to hold macitentan given concerning recurrent admissions for volume overload. Continue to receive tadalafil, tolerating well. CT chest no dense consolidative airspace changes. Bilateral diffuse ground glass opacities. Continued show bilateral mediastinal and hilar lymphadenopathy, stable from her CT scan from October and July 2024. Likely reactive/secondary to volume overload however THE possibility of sarcoidosis as the Etiology of patient's pulmonary arterial hypertension cannot be completely ruled out at this point of time. Patient CT scan from October and November also concerning for bronchomalacia. Interval update: No acute respiratory events overnight. Now on oral Bumex BID. Tadanafil dose increased to 40 mg on 12/01/2024. Tolerating well so far. Will closely monitor. Weight at 229 pounds this morning. Continue daily standing weights. Plan: Continue tadanafil 40 mg daily Incentive spirometry and flutter valve No need for antibiotics from pulmonary standpoint. Discontinue doxycycline. Continue volume optimization and management for other comorbidities contributing to her type III PH per cardiology. Continue oxygen supplementation to maintain O2 saturation goal of 90% and above, needing 1 to 2 L nasal cannula Follow-up with GI as an outpatient basis for her abnormal CT finding consistent with cirrhosis. Patient is due to undergo sleep study as an outpatient basis. Will schedule lab polysomnography testing. For now continue oxygen supp lementation also at night to maintain O2 saturation goal of 90% and above. Will evaluate for possible sleep apnea and bronchomalacia and need for noninvasive ventilatory therapy as an outpatient basis She continue to receive Eliquis twice daily for her paroxysmal A-fib.
--- NOTE | 2024-12-02 09:55 | EXP.CARD.PN ---
Subjective Subjective Date: 12/02/24 Time: 08:30 Principal diagnosis: Right heart failure/Pulm HTN Interval history: This is a 69-year-old white female who is being treated for right heart failure and pulmonary hypertension. She continues to be diuresed well. Her Bumex drip was stopped yesterday and she was switched over to intermittent IV Bumex. She did tolerate this well. She denies any chest pain or pressure today. She denies any shortness of breath. She states her edema has resolved. She denies any fever, chills, nausea, vomiting or diarrhea. She is lying flat when I walk in the room without any complaints of orthopnea. Exam Data for Last 24 hours Vital signs and Labs for Last 24 Hours: Temp Pulse Resp BP Pulse Ox O2 Del Method O2 Flow Rate 98.6 F 71 16 96/61 L 96 Nasal Cannula 3 12/02/24 08:00 12/02/24 08:00 12/02/24 08:00 12/02/24 08:00 12/02/24 08:00 12/02/24 08:00 12/02/24 08:00 Laboratory Results - last 24 hr 12/02/24 05:50: WBC 10.9 H, RBC 3.77 L, Hgb 9.1 L, Hct 31.5 L, MCV 83.6, MCH 24.1 L, MCHC 28.9 L, RDW 23.7 H, Plt Count 448 H, MPV 10.9 H, Neut % (Auto) 65.0, Lymph % (Auto) 15.0, [place] % (Auto) 12.9 H, Eos % (Auto) 5.3, Baso % (Auto) 1.4, Neut # (Auto) 7.1, Lymph # (Auto) 1.6, [place] # (Auto) 1.4 H, Eos # (Auto) 0.6 H, Baso # (Auto) 0.2, Sodium 134 L, Potassium 3.3 L, Chloride 80 L, Carbon Dioxide 48 H*, Anion Gap 9.3, BUN 43 H D, Creatinine 1.40 H D, Estimated Creat Clear 61, Estimated GFR 37 L, Est GFR ( Amer) 45 L D, Glucose 138 H, Calcium 9.0, Magnesium 2.6 H D, Total Bilirubin 0.5, AST 23, ALT 10 L, Alkaline Phosphatase 149 H, Total Protein 7.5, Albumin 3.3 L, Globulin 4.2 H, Albumin/Globulin Ratio 0.8 L, Triglycerides 62, Cholesterol 167, LDL Cholesterol Direct 81.03 L, VLDL Cholesterol 12, HDL Cholesterol 48, Cholesterol/HDL Ratio 3.5 I & O for Last 24 hours: Intake & Output 11/29/24 11/30/24 12/01/24 12/02/24 23:59 23:59 23:59 23:59 Intake Total 780 / 1488 2319.333 / 2319.333 1697.833 / 1937.833 980 / 980 Output Total 1700 / 2450 3500 / 4300 5050 / 5050 300 / 300 Balance -920 / -962 -1180.667 / -1980.667 -3352.167 / -3112.167 680 / 680 Weight 243 lb 240 lb 230 lb 229 lb 15.991 oz Microbiology Reports for the Last 24 Hours: Microbiology 11/28/24 02:26 Sputum - Expectorated Sputum Gram Stain - Final 11/28/24 02:26 Sputum - Expectorated Sputum Sputum Culture - Final Constitutional Constitutional: no acute distress and morbidly obese *Routine HEENT Exam Head: Present normocephalic Eye: Present EOMI ENT: Present mucous membranes moist *Routine Neck Exam Neck: Present supple and full ROM; Absent JVD *Routine Respiratory Exam Respiratory: Present decreased breath sounds; Absent wheezes or crackles *Routine Cardiovascular Exam Cardiovascular: Present Normal S1, Normal S2 and irregularly irregular *Routine Abdominal Exam Abdominal: Present soft, normoactive bowel sounds and obese; Absent tenderness *Routine Extremities Exam Extremities: Absent cyanosis, clubbing or edema *Routine Skin Exam Skin: Present intact and warm *Routine Neurological Exam Neurological: Present alert, oriented X3 and CN II-XII intact Routine Psychiatric Exam Psychiatric: Present normal affect Progress Note: A&P Assessment and plan (1) (HFpEF) heart failure with preserved ejection fraction: Status: Acute (2) Pulmonary hypertension: Status: Chronic (3) Acute and chronic respiratory failure with hypoxia: Status: Acute (4) Hilar lymphadenopathy: Status: Acute (5) Mediastinal lymphadenopathy: Status: Acute (6) Bronchomalacia: Status: Acute (7) Atrial fibrillation: Status: Chronic (8) Dyspnea on exertion: Status: Acute (9) HLD (hyperlipidemia): Status: Chronic (10) Diabetes mellitus type 2 in obese: Status: Chronic (11) MANSI (obstructive sleep apnea): Status: Acute (12) Hypokalemia: Status: Acute Assessment and Plan Assessment and Plan for All Diagnoses:: Plan: 1. The patient is being treated for pulmonary hypertension and right-sided heart failure. Her Bumex drip was stopped and she was started on Bumex 2 mg IV twice daily. She was in -3 L overnight again last night. She will be converted over to oral Bumex today. Continue oral metolazone as well for diuresis. 2. Consider a Cordella implant when she is out of the hospital for greater than 30 days for her acute on chronic HFpEF and pulmonary hypertension. 3. Paroxysmal atrial fibrillation is now rate controlled. Will start her on low-dose metoprolol for rate control. 4. She is on Eliquis for anticoagulation. 5. The patient is morbidly obese. Weight loss is highly encouraged. 6. The patient is now euvolemic. Will start her on Jardiance 10 mg daily for HFpEF. 7. Her blood pressure is well-controlled. 8. Her LDL goal is less than 100. Her LDL is 81. 9. The patient is hypokalemic. She is getting her potassium replaced. 10. No further recommendations at this time from a cardiac standpoint. Patient is stable for discharge home from a cardiac standpoint when she is medically ready for discharge. She will need to follow-up in cardiology clinic in 1 to 2 weeks on an outpatient basis. The patient can be discharged on the following cardiac medications: Eliquis 5 mg p.o. twice daily Bumex 2 mg p.o. twice daily Metolazone 2.5 mg daily Toprol 12.5 mg daily Jardiance 10 mg daily Thank you for the opportunity to help participate in the care of this patient. All recommendations and orders are per Dr. Carreno.
[2024-12-02] MEDS: EMPAGLIFLOZIN 10MG TABLET 10 MG PO (11:36)
--- NOTE | 2024-12-02 11:49 | EXP.ACUTE.PN ---
Subjective *Date: 12/02/24 *Time: 19:18 Interval history: Feeling better today. Afebrile. Good urine output. -3 L in past 24 hours. Transitioning to oral diuretics. Stable on 2 L. Denies chest pain or shortness of breath. States overall she feels well Medical Exam Vital signs and Labs for Last 24 Hours: Vital Signs Temp Pulse Pulse Resp BP Pulse Ox O2 Del Method 12/02/24 11:30 98.3 F 69 18 94/52 L 100 Nasal Cannula 12/02/24 08:00 70 12/02/24 08:00 98.6 F 71 16 96/61 L 96 Nasal Cannula 12/02/24 07:41 Nasal Cannula 12/02/24 07:00 Nasal Cannula 12/02/24 05:00 Nasal Cannula 12/02/24 04:00 98.3 F 59 L 18 106/53 L 97 Nasal Cannula 12/02/24 04:00 60 12/02/24 03:00 Nasal Cannula 12/02/24 01:00 Nasal Cannula 12/02/24 00:00 98.4 F 70 16 103/60 L 97 12/02/24 00:00 70 12/01/24 23:00 Nasal Cannula 12/01/24 21:00 Nasal Cannula 12/01/24 20:00 98.6 F 70 16 110/60 96 Nasal Cannula 12/01/24 20:00 70 12/01/24 20:00 Nasal Cannula 12/01/24 18:47 Nasal Cannula 12/01/24 17:00 Nasal Cannula 12/01/24 16:00 75 12/01/24 16:00 98.0 F 70 18 103/68 L 97 Nasal Cannula 12/01/24 15:00 Nasal Cannula 12/01/24 13:00 Nasal Cannula 12/01/24 12:00 60 12/01/24 12:00 98.5 F 76 18 130/80 98 Nasal Cannula O2 Flow Rate 12/02/24 11:30 3 12/02/24 08:00 12/02/24 08:00 3 12/02/24 07:41 2 12/02/24 07:00 2 12/02/24 05:00 2 12/02/24 04:00 3 12/02/24 04:00 12/02/24 03:00 2 12/02/24 01:00 2 12/02/24 00:00 3 12/02/24 00:00 12/01/24 23:00 2 12/01/24 21:00 2 12/01/24 20:00 2 12/01/24 20:00 12/01/24 20:00 2 12/01/24 18:47 2 12/01/24 17:00 2 12/01/24 16:00 12/01/24 16:00 2 12/01/24 15:00 2 12/01/24 13:00 12/01/24 12:00 12/01/24 12:00 2 Intake and Output 12/01/24 12/02/24 12/02/24 23:59 07:59 15:59 Intake Total 560 / 1937.833 480 / 980 500 / 980 Output Total 200 / 5050 0 / 550 550 / 550 Balance 360 / -3112.167 480 / 430 -50 / 430 Intake: Intake, Oral Amount 560 / 1730 480 / 980 500 / 980 Output: Output, Urine Amount 200 / 5050 0 / 550 550 / 550 Other: Number of Unmeasured Voids 1 1 0 Weight 104.326 kg Patient Weight 12/02/24 23:59 Weight 104.326 kg Laboratory Results - last 24 hr 12/02/24 05:50: WBC 10.9 H, RBC 3.77 L, Hgb 9.1 L, Hct 31.5 L, MCV 83.6, MCH 24.1 L, MCHC 28.9 L, RDW 23.7 H, Plt Count 448 H, MPV 10.9 H, Neut % (Auto) 65.0, Lymph % (Auto) 15.0, [place] % (Auto) 12.9 H, Eos % (Auto) 5.3, Baso % (Auto) 1.4, Neut # (Auto) 7.1, Lymph # (Auto) 1.6, [place] # (Auto) 1.4 H, Eos # (Auto) 0.6 H, Baso # (Auto) 0.2, Sodium 134 L, Potassium 3.3 L, Chloride 80 L, Carbon Dioxide 48 H*, Anion Gap 9.3, BUN 43 H D, Creatinine 1.40 H D, Estimated Creat Clear 61, Estimated GFR 37 L, Est GFR ( Amer) 45 L D, Glucose 138 H, Calcium 9.0, Magnesium 2.6 H D, Total Bilirubin 0.5, AST 23, ALT 10 L, Alkaline Phosphatase 149 H, Total Protein 7.5, Albumin 3.3 L, Globulin 4.2 H, Albumin/Globulin Ratio 0.8 L, Triglycerides 62, Cholesterol 167, LDL Cholesterol Direct 81.03 L, VLDL Cholesterol 12, HDL Cholesterol 48, Cholesterol/HDL Ratio 3.5 I & O for Labs for Last 24 Hours: Intake & Output 11/29/24 11/30/24 12/01/24 12/02/24 23:59 23:59 23:59 23:59 Intake Total 780 / 1488 2319.333 / 2319.333 1697.833 / 1937.833 980 / 980 Output Total 1700 / 2450 3500 / 4300 5050 / 5050 550 / 550 Balance -920 / -962 -1180.667 / -1980.667 -3352.167 / -3112.167 430 / 430 Weight 110.223 kg 108.862 kg 104.326 kg 104.326 kg Microbiology Reports for the Last 24 Hours: Microbiology 11/28/24 02:26 Sputum - Expectorated Sputum Gram Stain - Final 11/28/24 02:26 Sputum - Expectorated Sputum Sputum Culture - Final Constitutional: Present no acute distress, obese, chronically ill appearing and cooperative Head: Present atraumatic and normocephalic ENT: Present normal exam Neck: Present normal inspection Respiratory: Present rhonchi, distant breath sounds and diminished air movement; Absent accessory muscle use, wheezes or crackles Cardiac: Present Reg Rate and Rhythm and Audible Murmur GI: Present soft and normal bowel sounds; Absent distention or tenderness Extremities: Present normal inspection and full ROM; Absent edema Skin: Present intact and wounds; Absent erythema Neuro: Present Grossly Intact, alert, awake, oriented x 3 and moves all extremities Assessment and Plan *Assessment and plan (1) (HFpEF) heart failure with preserved ejection fraction: Status: Acute Qualifiers: Heart failure chronicity: acute on chronic Qualified Code(s): I50.33 - Acute on chronic diastolic (congestive) heart failure Category: Medical Code(s): I50.30 - Unspecified diastolic (congestive) heart failure (2) Cor pulmonale: Status: Acute Category: Medical Code(s): I27.81 - Cor pulmonale (chronic) (3) Hyponatremia: Status: Acute Category: Medical Code(s): E87.1 - Hypo-osmolality and hyponatremia (4) Primary pulmonary hypertension: Problem Comment: Type I pulmonary hypertension Status: Chronic Category: Medical Code(s): I27.0 - Primary pulmonary hypertension (5) Hypertension: Status: Chronic Qualifiers: Hypertension type: primary hypertension Qualified Code(s): I10 - Essential (primary) hypertension Category: Medical Code(s): I10 - Essential (primary) hypertension (6) Asplenia: Status: Chronic Category: Medical Code(s): Q89.01 - Asplenia (congenital) (7) Severe tricuspid regurgitation: Status: Chronic Category: Medical Code(s): I07.1 - Rheumatic tricuspid insufficiency (8) Diabetes mellitus type 2 in obese: Status: Chronic Category: Medical Code(s): E11.69 - Type 2 diabetes mellitus with other specified complication; E66.9 - Obesity, unspecified (9) Obesity: Problem Comment: Class II Status: Chronic Qualifiers: Body mass index: BMI 40.0-44.9 Obesity classification: adult class 3 (BMI >= 40) Obesity type: due to excess calories Serious obesity comorbidity presence: with serious comorbidity Qualified Code(s): E66.813 - Obesity, class 3; Z68.41 - Body mass index [BMI] 40.0-44.9, adult Category: Medical Code(s): E66.9 - Obesity, unspecified (10) Atrial fibrillation: Status: Chronic Qualifiers: Atrial fibrillation type: longstanding persistent Qualified Code(s): I48.11 - Longstanding persistent atrial fibrillation Category: Medical Code(s): I48.91 - Unspecified atrial fibrillation (11) Cirrhosis of liver: Status: Chronic Qualifiers: Ascites presence: unspecified Hepatic cirrhosis type: unspecified hepatic cirrhosis Qualified Code(s): K74.60 - Unspecified cirrhosis of liver Category: Medical Code(s): K74.60 - Unspecified cirrhosis of liver Plan Rica Flannery is a 69-year-old female with a medical history significant for severe right heart failure/cor pulmonale from pulmonary hypertension, asplenia, paroxysmal A-fib, CAD, type 2 diabetes, anxiety/depression, GERD presents with dyspnea for follow-up with cardiology and pulmonology. Admitted for recurrent HFpEF exacerbation, and further optimization of pulmonary hypertension medications. Diuresing well. Transition to oral Bumex today. Increasing tadalafil. If remains stable, anticipate discharge tomorrow. Problems addressed as follows: #Acute hypoxic respiratory failure #Pulmonary hypertension with cor pulmonale #Severe RV failure with cor pulmonale #Severe tricuspid regurgitation #Acute on chronic HFpEF #Medication side effect ? Patient has underlying pulmonary hypertension with concomitant cor pulmonale, possibly related to undiagnosed sleep apnea versus history of hypertension. ? RHC on 11/21/2024 at our facility consistent with severe pulmonary hypertension. Not classified as type II. Most consistent with type III pulmonary hypertension per pulmonology. ? Discussed with pulmonology, continue increased tadalafil 40 mg daily. - Continue Bumex transition to oral 2 mg p.o. twice daily. Continue metolazone 2.5 mg daily. Completing 3 doses of acetazolamide. - Negative over 27 L during admission -Bump in creatinine today to 1.4, BUN 43. Potassium 3.3 magnesium 2.6. Replacing per protocol. Bump in creatinine suggestive of patient being dry. ? CT chest on 11/28/2024 continues to reveal pulmonary edema though improving - Currently on 2 L nasal cannula, wean as tolerated. ? Discussed extensively with cardiology and pulmonology, cardiology reached out to [facility] pulmonary hypertension clinic who recommended outpatient follow-up. Patient and family to discuss their preference for follow-up. # Iron deficient anemia: Hemoglobin 9.1. White count 10.9. Repeat CBC, CMP, magnesium ordered for the morning. #History of asplenia: Monitor closely for infection. #Cirrhosis: Diagnosed on imaging during a previous visit, has been evaluated by GI and recommends advanced MRI in [place] to further evaluate cirrhotic like changes on CT. This is being set up. #Physical deconditioning #Depression ? Patient's recently. Had gone to rehab for therapy. Was participating well with PT and OT. Will reconsult PT and OT while admitted. ? Mood stable, continue home duloxetine 60 mg daily, nortriptyline 25 mg daily. - Melatonin 5 mg nightly for sleep Chronic medical problems: #Paroxysmal A-fib: Currently rate controlled. Continue home Eliquis 5 mg twice daily. Hold home metoprolol due to hypotension. #CAD: Holding aspirin and statin DNR/DNI DVT prophylaxis: Eliquis Cardiac diet
--- NOTE | 2024-12-02 16:25 | PC.NURSE ---
PT IS RESTING IN BED. ALERT AND ORIENTED X4. EATING AND DRINKING WELL. PT HAS BEEN RELUCTANT TO FOLLOWING THE 1500 ML FLUID RESTRICTION. PT TOLERATED SITTING UP IN THE CHAIR FOR SEVERAL HOURS THIS SHIFT. AMBULATED IN THE DONG WITH PHYSICAL THERAPY. O2 SATURATION HAS MAINTAINED 95-99% ON 2 L NC. LUNG SOUNDS DIMINISHED. ABDOMEN SOFT/NON TENDER WITH ACTIVE BOWEL SOUNDS. WILL CONTINUE TO MONITOR.
[2024-12-02] MEDS: MELATONIN 5MG TABLET 5 MG PO (21:16)
--- NOTE | 2024-12-02 23:41 | PC.NURSE ---
Patient had an incontinence episode while resting in bed; thus, a female purewick was placed at this time for bedtime use in order to monitor her urine output more closely. Patient stated that she did not know that [she] had peed but could tell that her linens were dampened. A full bed linen change was performed. Soiled absorbent pads weighed approximately 1 lb (450 grams); about 450 mL of urine was voided (1 mL = 1 gram).
[2024-12-03] VITALS: BP 124/53; PULSE 60; PULSE 67; RESP 17; TEMP 36.7; O2SAT 97
[2024-12-03 03:55] VITALS: BP 119/49; PULSE 60; RESP 18; TEMP 36.7; O2SAT 97; BMI 37.9
[2024-12-03 04:00] VITALS: PULSE 60
[2024-12-03 06:33] LABS: Hematocrit 32.4 % (37.0-47.0); Hemoglobin 9.2 g/dL (12.2-16.2); Immature Granulocytes % 0.4 %; Mean Corpuscular HGB Conc 28.4 g/dL (31.8-35.4); Mean Corpuscular Hemoglobin 23.4 pg (27.0-31.2); Mean Corpuscular Volume 82.2 fl (81-99); Nucleated Red Blood Cells % 0 %; Platelet Count 450 K/mm3 (142-424); Red Blood Count 3.94 M/mm3 (4.20-5.40); Red Cell Distribution Width-SD 67.7 fL; White Blood Count 12.0 K/mm3 (4.8-10.8)
[2024-12-03 06:49] LABS: Albumin Level 3.5 g/dl (3.5-5.0); Chloride 78 mmol/L (98-107); Sodium 134 mmol/L (136-145)
[2024-12-03 06:52] LABS: Alanine Aminotransferase 10 U/L (12-78); Albumin/Globulin Ratio 0.8 (1.1-1.8); Alkaline Phosphatase 153 U/L (38-126); Aspartate Amino Transferase 23 U/L (14-36); Bilirubin,Total 0.4 mg/dl (0.2-1.3); Blood Urea Nitrogen 47 mg/dl (7-17); Creatinine Clearance Estimated 60 mL/min (50-200); Creatinine,Serum 1.40 mg/dl (0.52-1.04); Estimated Glomerular Filt Rate 37 ml/min (>60); GFR (African American) 45 ML/MIN (>60); Globulin 4.2 g/dL (1.3-3.2); Total Protein,Serum 7.7 g/dl (6.3-8.2)
[2024-12-03 06:53] LABS: Calcium 9.0 mg/dl (8.4-10.2); Glucose 160 mg/dl (74-100)
[2024-12-03 06:56] LABS: Magnesium 2.4 mg/dl (1.6-2.3)
--- NOTE | 2024-12-03 07:33 | EXP.DC.SUM ---
General Admission date:: 11/18/24 Discharge date: 12/03/24 HPI HPI HPI: Mrs. Flannery is a 69-year-old female with a medical history significant for severe right heart failure/cor pulmonale from pulmonary hypertension, asplenia, paroxysmal A-fib, CAD, type 2 diabetes, anxiety/depression, GERD who presented from [facility] for routine follow-up with pulmonology and cardiology today. Complains of increased swelling in her legs, weight gain over the past 2 weeks, and worsening rhonchorous cough along with increased oxygen requirement (3 L). Patient was discharged from our hospital approximately 2 weeks ago after aggressive diuresis. Plan to continue diuretics and Opsumit for her pulmonary hypertension. Unfortunately had worsening edema and not responding as well as when she was admitted. On follow-up today, increased dyspnea in spite of having her diuretics doubled last week. Denies fever or vomiting. Denies chest pain. Has a little bit of a cough but nonproductive. Leg significantly more swollen and shiny on evaluation. Cardiology requested admission due to worsening volume overload. On evaluation in the unit, patient definitely appears more volume overloaded compared to previous discharge. Feels weak. Feels short of breath. Hospital Course Hospital Course Hospital Course: Rica Flannery is a 69-year-old female with a medical history significant for severe right heart failure/cor pulmonale from pulmonary hypertension, asplenia, paroxysmal A-fib, CAD, type 2 diabetes, anxiety/depression, GERD presents with dyspnea for follow-up with cardiology and pulmonology. Admitted for recurrent HFpEF exacerbation, and further optimization of pulmonary hypertension medications. Did well with aggressive diuresis. Initially on a drip, transition to IV and then oral. Tolerating for over 24 hours. Has had large bowel movement prior to discharge. Overall stable and optimized with what appears to be her dry weight. Continue tadalafil treatment for pulmonary hypertension. Stable discharge to rehab for further care. Problems addressed as follows: #Acute hypoxic respiratory failure #Pulmonary hypertension with cor pulmonale #Severe RV failure with cor pulmonale #Severe tricuspid regurgitation #Acute on chronic HFpEF #Medication side effect ? Patient has underlying pulmonary hypertension with concomitant cor pulmonale, possibly related to undiagnosed sleep apnea versus history of hypertension. RHC on 11/21/2024 at our facility consistent with severe pulmonary hypertension. Not classified as type II. Most consistent with type III pulmonary hypertension per pulmonology. Discussed with pulmonology, help me strain mission. Tadalafil was initiated and gradually increased from 20 to 40 mg daily. Tolerating well without hypotension. Please do not hold tadalafil when she returns to snf. Administer unless systolic blood pressure less than 80. - Plan to continue Bumex 2 mg p.o. twice daily, metolazone 2.5 mg daily. Supplementing with potassium 20 mEq twice daily with meals. Need to repeat CBC, CMP, magnesium in 3 days to monitor electrolytes and kidney function. -Patient is negative over 27 L since admission. Serial imaging during admission showed gradual improvement in her pulmonary edema. Remained stable on 2 L oxygen. Wean as tolerated. ? Discussed extensively with cardiology and pulmonology, cardiology reached out to [facility] pulmonary hypertension clinic who recommended outpatient follow-up. Patient and family to discuss their preference for follow-up. # Iron deficient anemia: Hemoglobin has remained stable in the low 9 range during admission. No signs of active bleeding. #History of asplenia: Monitor closely for infection. #Cirrhosis: Diagnosed on imaging during a previous visit, has been evaluated by GI and recommends advanced MRI in [place] to further evaluate cirrhotic like changes on CT. #Physical deconditioning #Depression ? Patient's recently. Had gone to rehab for therapy. Was participating well with PT and OT. Will reconsult PT and OT while admitted. Mood stable, continue home duloxetine 60 mg daily, nortriptyline 25 mg daily. Melatonin 5 mg nightly for sleep Chronic medical problems: #Paroxysmal A-fib: Currently rate controlled. Continue home Eliquis 5 mg twice daily. Hold home metoprolol due to hypotension. #CAD: Holding aspirin and statin Had significant constipation during admission. Treated with aggressive bowel regimen. Had large bowel movement on morning of discharge. Tolerating p.o. intake with no nausea or vomiting. Total time spent on discharge 40 minutes in counseling, documentation, chart review, and direct care with patient. Exam Data for Last 24 hours Vital signs and Labs for Last 24 Hours: Temp Pulse Resp BP Pulse Ox O2 Del Method O2 Flow Rate 98.1 F 60 18 119/49 L 97 Nasal Cannula 2 12/03/24 03:55 12/03/24 04:00 12/03/24 03:55 12/03/24 03:55 12/03/24 03:55 12/03/24 07:00 12/03/24 07:00 FiO2 28 12/01/24 19:03 Laboratory Results - last 24 hr 12/02/24 05:50: WBC 10.9 H, RBC 3.77 L, Hgb 9.1 L, Hct 31.5 L, MCV 83.6, MCH 24.1 L, MCHC 28.9 L, RDW 23.7 H, Plt Count 448 H, MPV 10.9 H, Neut % (Auto) 65.0, Lymph % (Auto) 15.0, [place] % (Auto) 12.9 H, Eos % (Auto) 5.3, Baso % (Auto) 1.4, Neut # (Auto) 7.1, Lymph # (Auto) 1.6, [place] # (Auto) 1.4 H, Eos # (Auto) 0.6 H, Baso # (Auto) 0.2, Triglycerides 62, Cholesterol 167, LDL Cholesterol Direct 81.03 L, VLDL Cholesterol 12, HDL Cholesterol 48, Cholesterol/HDL Ratio 3.5 12/03/24 06:00: WBC 12.0 H, RBC 3.94 L, Hgb 9.2 L, Hct 32.4 L, MCV 82.2, MCH 23.4 L, MCHC 28.4 L, RDW 23.0 H, Plt Count 450 H, MPV 10.7 H, Neut % (Auto) 65.4, Lymph % (Auto) 14.7, [place] % (Auto) 13.0 H, Eos % (Auto) 5.2, Baso % (Auto) 1.3, Neut # (Auto) 7.9 H, Lymph # (Auto) 1.8, [place] # (Auto) 1.6 H, Eos # (Auto) 0.6 H, Baso # (Auto) 0.2 I & O for Last 24 hours: Intake & Output 11/30/24 12/01/24 12/02/24 12/03/24 23:59 23:59 23:59 23:59 Intake Total 2319.333 / 2319.333 1697.833 / 6553.723 0308 / 2291 300 / 300 Output Total 3500 / 4300 5050 / 5050 1650 / 1650 450 / 450 Balance -1180.667 / -1980.667 -3352.167 / -3112.167 342 / 642 -150 / -150 Weight 108.862 kg 104.326 kg 104.326 kg 103.283 kg Microbiology Reports for the Last 24 Hours: Microbiology 11/28/24 02:26 Sputum - Expectorated Sputum Gram Stain - Final 11/28/24 02:26 Sputum - Expectorated Sputum Sputum Culture - Final Constitutional Constitutional: no acute distress, obese, chronically ill appearing and cooperative *Routine HEENT Exam Head: Present normocephalic Eye: Present EOMI and PERRL ENT: Present mucous membranes moist *Routine Neck Exam Neck: Present supple; Absent lymphadenopathy *Routine Respiratory Exam Respiratory: Present rhonchi and normal respiratory effort; Absent prolonged expiratory phase, wheezes or crackles *Routine Cardiovascular Exam Cardiovascular: Present RRR and murmur *Routine Abdominal Exam Abdominal: Present soft and normoactive bowel sounds; Absent tenderness *Routine Rectal Exam Patient deferred: visual exam *Routine Exam Patient deferred: external exam *Routine Extremities Exam Extremities: Absent cyanosis, clubbing or edema *Routine Skin Exam Skin: Present intact and warm; Absent rash *Routine Neurological Exam Neurological: Present alert, oriented X3 and moving all extremities; Absent altered mental status Results Data Completed and Pending Labs on day of discharge: Labs from last 24 hours 12/03/24 12/02/24 06:00 05:50 WBC 12.0 H 10.9 H RBC 3.94 L 3.77 L Hgb 9.2 L 9.1 L Hct 32.4 L 31.5 L MCV 82.2 83.6 MCH 23.4 L 24.1 L MCHC 28.4 L 28.9 L RDW 23.0 H 23.7 H Plt Count 450 H 448 H MPV 10.7 H 10.9 H Neut % (Auto) 65.4 65.0 Lymph % (Auto) 14.7 15.0 [place] % (Auto) 13.0 H 12.9 H Eos % (Auto) 5.2 5.3 Baso % (Auto) 1.3 1.4 Neut # (Auto) 7.9 H 7.1 Lymph # (Auto) 1.8 1.6 [place] # (Auto) 1.6 H 1.4 H Eos # (Auto) 0.6 H 0.6 H Baso # (Auto) 0.2 0.2 Triglycerides 62 Cholesterol 167 LDL Cholesterol Direct 81.03 L VLDL Cholesterol 12 HDL Cholesterol 48 Cholesterol/HDL Ratio 3.5 DS: Diagnosis Discharge Diagnosis (1) (HFpEF) heart failure with preserved ejection fraction: Status: Acute Code(s): I50.30 - Unspecified diastolic (congestive) heart failure Qualifiers: Heart failure chronicity: acute on chronic Qualified Code(s): I50.33 - Acute on chronic diastolic (congestive) heart failure (2) Cor pulmonale: Status: Acute Code(s): I27.81 - Cor pulmonale (chronic) (3) Hyponatremia: Status: Acute Code(s): E87.1 - Hypo-osmolality and hyponatremia (4) Primary pulmonary hypertension: Status: Chronic Code(s): I27.0 - Primary pulmonary hypertension Problem details: Type I pulmonary hypertension (5) Hypertension: Status: Chronic Code(s): I10 - Essential (primary) hypertension Qualifiers: Hypertension type: primary hypertension Qualified Code(s): I10 - Essential (primary) hypertension (6) Asplenia: Status: Chronic Code(s): Q89.01 - Asplenia (congenital) (7) Severe tricuspid regurgitation: Status: Chronic Code(s): I07.1 - Rheumatic tricuspid insufficiency (8) Diabetes mellitus type 2 in obese: Status: Chronic Code(s): E11.69 - Type 2 diabetes mellitus with other specified complication; E66.9 - Obesity, unspecified (9) Obesity: Status: Chronic Code(s): E66.9 - Obesity, unspecified Qualifiers: Body mass index: BMI 40.0-44.9 Obesity classification: adult class 3 (BMI >= 40) Obesity type: due to excess calories Serious obesity comorbidity presence: with serious comorbidity Qualified Code(s): E66.813 - Obesity, class 3; Z68.41 - Body mass index [BMI] 40.0-44.9, adult Problem details: Class II (10) Atrial fibrillation: Status: Chronic Code(s): I48.91 - Unspecified atrial fibrillation Qualifiers: Atrial fibrillation type: longstanding persistent Qualified Code(s): I48.11 - Longstanding persistent atrial fibrillation (11) Cirrhosis of liver: Status: Chronic Code(s): K74.60 - Unspecified cirrhosis of liver Qualifiers: Ascites presence: unspecified Hepatic cirrhosis type: unspecified hepatic cirrhosis Qualified Code(s): K74.60 - Unspecified cirrhosis of liver (12) Hypokalemia: Status: Acute Code(s): E87.6 - Hypokalemia (13) Mediastinal lymphadenopathy: Status: Acute Code(s): R59.0 - Localized enlarged lymph nodes Meds Home Medications and Allergies Home Medications ?Medication ?Instructions ?Recorded ?Confirmed ?Type acetaminophen 500 mg tablet 1,000 mg PO Q6H PRN Mild Pain 05/09/24 11/18/24 History (Tylenol Extra Strength) (Scale Score 1-4) zolpidem 5 mg tablet (Ambien) 5 mg PO HS PRN sleep #30 tabs 08/26/24 11/18/24 Rx nystatin 100,000 unit/gram topical 1 applic topical BID PRN 09/30/24 11/18/24 History powder Excoriation apixaban 5 mg tablet (Eliquis) 5 mg PO BID 10/17/24 11/18/24 History duloxetine 60 mg capsule,delayed 60 mg PO DAILY 10/17/24 11/18/24 History release famotidine 20 mg tablet 20 mg PO DAILY 10/17/24 11/18/24 History melatonin 5 mg tablet 5 mg PO HS 10/17/24 11/18/24 History nortriptyline 25 mg capsule 25 mg PO HS 10/17/24 11/18/24 History sennosides 8.6 mg-docusate sodium 1 tab PO DAILY 10/17/24 11/18/24 History 50 mg tablet (Senexon-S) ferrous sulfate 325 mg (65 mg 325 mg PO Q48H 10/18/24 11/18/24 History iron) tablet (Feosol) ipratropium 0.5 mg-albuterol 3 mg 1 ml inhalation Q6HP PRN soa 11/05/24 11/18/24 History (2.5 mg base)/3 mL nebulization soln ondansetron HCl 8 mg tablet 8 mg PO Q8HP PRN Nausea And 11/05/24 11/19/24 History Vomiting bumetanide 1 mg tablet 2 mg (2 x 1 mg) PO BID #60 tabs 11/12/24 11/18/24 Rx ascorbic acid (vitamin C) 500 mg 500 mg PO DAILY 11/18/24 11/18/24 History capsule empagliflozin 10 mg tablet 10 mg PO DAILY 30 days #30 tabs 12/03/24 Rx (Jardiance) metolazone 2.5 mg tablet 2.5 mg PO DAILY 30 days #30 tabs 12/03/24 Rx metoprolol succinate 25 mg 12.5 mg (1/2 x 25 mg) PO DAILY 30 12/03/24 Rx tablet,extended release 24 hr days #15 tabs polyethylene glycol 3350 17 gram 17 g PO DAILY 30 days #30 ea 12/03/24 11/18/24 Rx oral powder packet (HealthyLax) potassium chloride 20 mEq 20 meq PO BIDWMEAL 30 days #60 tabs 12/03/24 Rx tablet,extended release(part/cryst) (Klor-Con M) tadalafil 20 mg tablet (Cialis) 40 mg (2 x 20 mg) PO DAILY Primary 12/03/24 Rx pulmonary hypertension #60 tabs New Prescriptions to Start Prescriptions: empagliflozin [Jardiance] Brandon Oconnor metolazone Brandon Oconnor metoprolol succinate Brandon Oconnor potassium chloride [Klor-Con M20] Brandon Oconnor tadalafil [Cialis] Brandon Oconnor Allergies Allergy/AdvReac Type Severity Reaction Status Date / Time levofloxacin Allergy hives Verified 11/18/24 14:17 meperidine Allergy hives Verified 11/18/24 14:17 Discharge Plan Disposition Patient Disposition: Xfer SNF Condition: Fair Discharge Order Discharge Orders: Discharge Order (Routine); Ordered 12/03/24 Ordered By: Brandon Oconnor Follow up Plan Follow up with: Ryanne Whiting MD [Physician, Pulmonology] - 12/22/24 1:00 pm Theo Carreno MD [Staff Physician, Cardiology] - Enter time for follow up Prescriptions/Medication Reconciliation: New metolazone 2.5 mg Tablet 2.5 mg PO DAILY 30 Days Qty: 30 0RF metoprolol succinate 25 mg Tablet Extended Release 24 Hr 12.5 mg PO DAILY 30 Days Qty: 15 0RF Jardiance 10 mg Tablet 10 mg PO DAILY 30 Days Qty: 30 0RF tadalafil [Cialis] 20 mg tablet 40 mg PO DAILY Qty: 60 0RF potassium chloride [Klor-Con M20] 20 mEq Tablet,Er Particles/Crystals 20 meq PO BIDWMEAL 30 Days Qty: 60 0RF Continued nystatin 100,000 unit/gram powder 1 applic topical BID PRN (Reason: Excoriation) acetaminophen [Tylenol Extra Strength] 500 mg tablet 1,000 mg PO Q6H PRN (Reason: Mild Pain (Scale Score 1-4)) zolpidem [Ambien] 5 mg tablet 5 mg PO HS PRN (Reason: sleep) Qty: 30 0RF bumetanide 1 mg tablet 2 mg PO BID Qty: 60 0RF ascorbic acid (vitamin C) 500 mg capsule 500 mg PO DAILY ipratropium-albuterol 0.5 mg-3 mg(2.5 mg base)/3 mL Solution For Nebulization 1 ml INHALATION Q6HP PRN (Reason: soa) ondansetron HCl 8 mg tablet 8 mg PO Q8HP PRN (Reason: Nausea And Vomiting) Patient Comments: TAKE 1 TABLET BY MOUTH EVERY 8 (EIGHT) HOURS IF NEEDED FOR NAUSEA OR VOMITING FOR UP TO 30 DAYS. sennosides-docusate sodium [Senexon-S] 8.6-50 mg tablet 1 tab PO DAILY nortriptyline 25 mg capsule 25 mg PO HS famotidine 20 mg tablet 20 mg PO DAILY duloxetine 60 mg capsule,delayed release(DR/EC) 60 mg PO DAILY melatonin 5 mg tablet 5 mg PO HS Eliquis 5 mg tablet 5 mg PO BID ferrous sulfate [Feosol] 325 mg (65 mg iron) tablet 325 mg PO Q48H Changed polyethylene glycol 3350 [HealthyLax] 17 gram Powder In Packet 17 g PO DAILY 30 Days Qty: 30 0RF Discontinued Opsumit 10 mg tablet 10 mg PO DAILY 30 Days Qty: 30 0RF Rx Instructions: Hold only for systolic blood pressure less than 90 Problem Reconciliation Problems Reviewed?: Yes Patient Discharge Instructions ACTIVITY: Continue current activity DIET: continue same diet Patient Instructions: DI for Heart Failure, DI for Respiratory Failure, Catheter-Associated Urinary Tract Infection, Stop Light Heart Failure Print Language: Israeli Providers Primary Care Provider: Luiz Sage Admit Provider: Brandon Oconnor Attending Provider: Brandon Oconnor
[2024-12-03 07:42] LABS: Anion Gap 9.8 mEq/L (5-15); Carbon Dioxide 49 mmol/L (22.0-30.0)
[2024-12-03 07:43] LABS: Potassium 2.8 mmoL/L (3.5-5.1)
[2024-12-03 08:00] VITALS: BP 104/47; PULSE 60; RESP 18; TEMP 37; O2SAT 100
[2024-12-03 08:37] LABS: Total Cells Counted 100
[2024-12-03 08:39] LABS: Poikilocytosis 1+
[2024-12-03 08:40] LABS: Giant Platelets 1+
[2024-12-03] MEDS: MINERAL OIL ENEMA 133ML 133 ML RC (08:58)
[2024-12-03] MEDS: TADALAFIL 20 MG 40 EACH PO (09:11)
[2024-12-03] MEDS: EMPAGLIFLOZIN 10MG TABLET 10 MG PO (09:13)
[2024-12-03] MEDS: FAMOTIDINE 20MG TABLET 20 MG PO (09:13)
[2024-12-03] MEDS: SENNOSIDES 8.6MG/DOCUSATE 50MG TABLET 1 TAB PO (09:13)
[2024-12-03] MEDS: APIXABAN 5MG TABLET 5 MG PO (09:13)
[2024-12-03] MEDS: BUMETANIDE 1 MG TABLET 2 MG PO (09:16)
[2024-12-03] MEDS: POTASSIUM CHLORIDE 20MEQ TAB 20 MEQ PO (09:16)
[2024-12-03] MEDS: METOPROLOL SUCCINATE XL 25MG TABLET 12.5 MG PO (09:17)
[2024-12-03] MEDS: POLYETHYLENE GLYCOL 3350 17 GM PACKET PO (09:17)
[2024-12-03 12:00] VITALS: BP 106/57; PULSE 60; PULSE 71; RESP 18; TEMP 37; O2SAT 98
--- NOTE | 2024-12-03 12:14 | PC.NURSE ---
patient is up to the chair for lunch, standby assist with walker, remains on 2L nasal cannula, denies any shortness of breath or chest pain. Purewick was applied overnight due to frequency, 900ml urine emptied from cannister this morning.
[2024-12-03 13:00] LABS: Potassium 3.4 mmoL/L (3.5-5.1)
[2024-12-03 13:08] LABS: C-Reactive Protein 23.3 mg/L (0-4)
[2024-12-03 13:21] LABS: Procalcitonin 0.102 ng/mL (0.0-2.0)
--- NOTE | 2024-12-03 15:25 | PC.NURSE ---
patient's room air oxygen 71%
== END 2024-12-03 15:39 ==
LOC: ICU 11-19 05:52 → 2ND 11-19 07:44
PROVIDERS: Internal Medicine; Internal Medicine Pulmonary Disease; Nurse Practitioner Family; Student in an Organized Health Care Education/Training Program; Admitting Provider Internal Medicine Adolescent Medicine; PCP Internal Medicine; Visit Provider Internal Medicine Adolescent Medicine
PROC: 4A023N6 Measurement of Cardiac Sampling and Pressure, Right Heart, Percutaneous Approach (ICD-10-PCS; CPT 93451; principal; 2024-11-21 13:00)
DX: I11.0 Hypertensive heart disease with heart failure (principal); I50.33 Acute on chronic diastolic (congestive) heart failure; J96.21 Acute and chronic respiratory failure with hypoxia; J18.9 Pneumonia, unspecified organism; Z68.41 Body mass index [BMI] 40.0-44.9, adult; Q89.01 Asplenia (congenital); E87.1 Hypo-osmolality and hyponatremia; I48.11 Longstanding persistent atrial fibrillation; I07.1 Rheumatic tricuspid insufficiency; I27.81 Cor pulmonale (chronic); D50.9 Iron deficiency anemia, unspecified; I27.23 Pulmonary hypertension due to lung diseases and hypoxia; G47.30 Sleep apnea, unspecified; K74.60 Unspecified cirrhosis of liver; F32.A Depression, unspecified; I48.0 Paroxysmal atrial fibrillation; I25.10 Atherosclerotic heart disease of native coronary artery without angina pectoris; Z79.01 Long term (current) use of anticoagulants; E66.813 Obesity, class 3; E87.6 Hypokalemia; F41.9 Anxiety disorder, unspecified; E11.9 Type 2 diabetes mellitus without complications; K21.9 Gastro-esophageal reflux disease without esophagitis; I50.813 Acute on chronic right heart failure; K59.00 Constipation, unspecified; J98.09 Other diseases of bronchus, not elsewhere classified; Y95 Nosocomial condition; I95.9 Hypotension, unspecified; T46.995A Adverse effect of other agents primarily affecting the cardiovascular system, initial encounter; Z63.4 Disappearance and death of family member; Z66 Do not resuscitate
CPT/HCPCS: 0223U; 36415; 36600; 51702; 71045; 71250; 80048; 80053; 80061; 82803; 82810; 83735; 83880; 84132; 84145; 84484; 85007; 85025; 86140; 87070; 87205; 89220; 94640; 94761; 97110; 97116; 97162; 97165; 97530; 97535; 99152; C1894; J0692; J1200; J1644; J1939; J2003; J2250; J2405; J3010; J3475; J3480; J7040

== ENCOUNTER 2024-12-14 14:30 | Outpatient (CLI) | payer MEDICARE, BC, SELFPAY ==
--- OUTSIDE RECORDS SUMMARY | 2024-12-15 10:16 | XMS_ITS | Encounter Summary ---
Author Organization [facility] Address [address] [place] [address] Care Team Providers Care Cash Management Specialist Name Role Phone Maegan Bermeo MD Primary Care Provider [phone] Audra Wahl PASSENGER BRAKEMAN Unavailable Unavailab Jessa Jimenez PASSENGER BRAKEMAN Unavailable Unavailable Reason for Visit * Reason Comments Med Refill Encounter Details Date Type Department Care Team (Late st Contact Info) Description 10/11/2021 Refill Family and Community Medicine [address] [place] [address] Maegan Bermeo MD [address] [place] [address] Avitaminosis D Social History Tobacco [...] and sent to appropriate Health Dept. IPA Weight Tester: Nimco Simms 10/26/2021 10/26/2021 022 10:27 AM EDT COVID 19 (Confirmed) 11/11/2021 11/11/2021 022 5:23 AM EDT COVID-19 Rule-Out 05/16/2022 05/16/2022 05/16/2022 11:05 PM EDT Assessment Noted Time A fall risk assessment has been complete d for the patient 10/11/2021 11:31 AM EDT documented as of this encounter Care Teams Cash Management Specialist Relationship Specialty Start Date End Date Maegan Bermeo MD [facility] [place] [address] [address] PCP - General Family Medicine 09/15/21 Audra Wahl LPN VALUE-[place]ED [place] [address] TCM Nurse 09/27/21 10/27/21 Jessa Park LPN VALUE-[place]ED [place] [address] Registered Nurse 05/26/22 05/26/22 documented as of this encounter
--- OUTSIDE RECORDS SUMMARY | 2024-12-15 10:16 | XMS_ITS | Encounter Summary ---
Author Organization Healthcare Address [address] [place] [address] Care Team Providers Care Wind Turbine Machinist Name Role Phone Jan Castelan MD Primary Care Provider [phone] Benjie Quezada MD Primary Care Provider Tamika Loomis APRN Primary Care Provider [phone] Maegan Bermeo MD Primary Care Provider [phone] Audra Wahl LEAD SEWAGE PLANT OPERATOR Unavailable Unavailab Jessa Jimenez LEAD SEWAGE PLANT OPERATOR Unavailable Unavailable Reason for Visit * Reason Comments Med Refill Encounter Details Date Type Department Care Team (Late st Contact Info) Description 02/22/2021 Refill Family and Community Medicine [address] [place] [address] Jan Castelan MD [address] [place] [address] Uncontrolled type 2 diabetes mellitus with hyperglycemia ([facility]) Social History Tobacco Use Types Packs/Day Years [...] and sent to appropriate Health Dept. IPAC Motion Picture Scene Builder: Brandiedon Demi 10/26/2021 10/26/2021 022 10:27 AM EDT COVID 19 (Confirmed) 11/11/2021 11/11/2021 022 5:23 AM EDT COVID-19 Rule-Out 05/16/2022 05/16/2022 05/16/2022 11:05 PM EDT documented as of this encounter Care Teams Wind Turbine Machinist Relationship Specialty Start Date End Date Jan Castelan MD [address] [place] [address] PCP - General 07/02/20 08/07/21 [place] [address] [place] [address] [address] [place] [address] PCP - General Family Medicine 08/08/21 08/30/21 Tamika Loomis APRN [address] [place] [address] PCP - General Family Medicine 08/31/21 09/14/21 Maegan Bermeo MD [address] [place] [address] PCP - General Family Medicine 09/15/21 Audra Wahl LPN VALUE-[place]ED [place] [address] TCM Nurse 09/27/21 10/27/21 Jessa Park LPN VALUE-[place]ED [place] [address] Registered Nurse 05/26/22 05/26/22 documented as of this encounter
--- OUTSIDE RECORDS SUMMARY | 2024-12-15 10:16 | XMS_ITS | Clinical Summary ---
Author Organization [facility] Address [address] [place] [address] Care Team Providers Care Product Development Ecologist Name Role Phone Unavailable Primary Care Provider [...] Description 12/25/2024 2:00 PM EST Appointment [facility] Heart Failure [address] [place] [address] Medical Office Building [address] [place] [address] Richard Anderson MD [address] [place] [address] [address] [place], [place] [address] Health Maintenance Due Date Last Done Comments [...]
--- OUTSIDE RECORDS SUMMARY | 2024-12-15 10:16 | XMS_ITS | Encounter Summary ---
Author Organization Healthcare Address [address] [place] [address] Care Team Providers Care Lehr Loader Name Role Phone Maegan Bermeo MD Primary Care Provider [phone] Jessa Park LPN Unavailable Unavailable Reason for Visit * Reason Comments Med Refill Encounter Details Date Type Department Care Team (Late st Contact Info) Description 11/26/2021 Refill Family and Community Medicine [address] [place] [address] Benjie Quezada MD [address] [place] [address] Social History Tobacco Use Types [...] documented as of this encounter Care Teams Lehr Loader Relationship Specialty Start Date End Date Maegan Bermeo MD [address] [place] [address] PCP - General Family Medicine 09/15/21 Jessa Park LPN VALUE-[place] [place] [address] Registered Nurse 05/26/22 05/26/22 documented as of this encounter
--- OUTSIDE RECORDS SUMMARY | 2024-12-15 10:16 | XMS_ITS | Encounter Summary ---
Author Organization Healthcare Address [address] [place] [address] Care Team Providers Care Stitch Cleaner Name Role Phone Jan Castelan MD Primary Care Provider [phone] Benjie Quezada MD Primary Care Provider Tamika Loomis APRN Primary Care Provider [phone] Maegan Bermeo MD Primary Care Provider [phone] Audra Wahl ROTARY HELPER Unavailable Unavailab Jessa Jimenez ROTARY HELPER Unavailable Unavailable Reason for Visit * Reason Comments Med Refill Encounter Details Date Type Department Care Team (Late st Contact Info) Description 07/27/2020 Refill Family and Community Medicine [address] [place] [address] Jan Castelan MD [address] [place] [address] Social History Tobacco Use Types [...] and sent to appropriate Health Dept. IPAC Technical Consultant: Brandiedon Demi 10/26/2021 10/26/2021 022 10:27 AM EDT COVID 19 (Confirmed) 11/11/2021 11/11/2021 022 5:23 AM EDT COVID-19 Rule-Out 05/16/2022 05/16/2022 05/16/2022 11:05 PM EDT documented as of this encounter Care Teams Stitch Cleaner Relationship Specialty Start Date End Date Jan Castelan MD [address] [place] [address] PCP - General 07/02/20 08/07/21 Benjie Quezada MD [address] [place] [address] PCP - General Family Medicine 08/08/21 08/30/21 Tamika Loomis APRN [address] [place] [address] PCP - General Family Medicine 08/31/21 09/14/21 Maegan Bermeo MD [address] [place] [address] PCP - General Family Medicine 09/15/21 Audra Wahl LPN VALUE-[place] [address] TCM Nurse 09/27/21 10/27/21 Jessa Park LPN VALUE-[place]ED [place] [address] Registered Nurse 05/26/22 05/26/22 documented as of this encounter
--- OUTSIDE RECORDS SUMMARY | 2024-12-15 10:17 | XMS_ITS | Encounter Summary ---
Author Organization Healthcare Address [address] [place] [address] Care Team Providers Care Parachute Manufacturing Supervisor Name Role Phone Maegan Bermeo MD Primary Care Provider [phone] Encounter Details Date Type Department Care Team (Late st Contact Info) Description 07/10/2024 Orders Only External Location [address] [place] [address] Provider, External Social History Tobacco Use Types [...] drink first t ken in the morning (EYE-PHOTOGRAPHIC DOUBLE) to steady your nerves or to [...] as of this encounter Care Teams Parachute Manufacturing Supervisor Relationship Specialty Start Date End Date Maegan Bermeo MD [address] [place] [address] PCP - General Family Medicine 09/15/21 documented as of this encounter
--- OUTSIDE RECORDS SUMMARY | 2024-12-15 10:17 | XMS_ITS | Encounter Summary ---
Author Organization [facility] Address [address] [place] [address] Care Team Providers Care Fish Liver Sorter Name Role Phone Jan Castelan MD Primary Care Provider [phone] Benjie Quezada MD Primary Care Provider Tamika Loomis APRN Primary Care Provider [phone] Maegan Bermeo MD Primary Care Provider [phone] Audra Wahl SENIOR FIREWALL ENGINEER Unavailable Unavailab Jessa Jimenez SENIOR FIREWALL ENGINEER Unavailable Unavailable Reason for Visit * Reason Comments Med Refill Encounter Details Date Type Department Care Team (Late st Contact Info) Description 12/28/2020 Refill Family and Community Medicine [address] [place] [address] Jan Castelan MD [address] [place] [address] Social History Tobacco Use Types [...] Team aware. EVS notified. [facility] has verified patient has a COVID-19 positive result. A chart review has been completed, EPI PUI has been completed and sent to appropriate Health Dept. [facility] Inspector Rag Sorting: Nimco Demi 10/26/2021 10/26/2021 022 10:27 AM EDT COVID 19 (Confirmed) 11/11/2021 11/11/2021 022 5:23 AM EDT COVID-19 Rule-Out 05/16/2022 05/16/2022 05/16/2022 11:05 PM EDT documented as of this encounter Care Teams Fish Liver Sorter Relationship Specialty Start Date End Date Jan Castelan MD [address] [place] [address] PCP - General 07/02/20 08/07/21 Benjie Quezada MD [address] [facility] [address] [place] [address] PCP - General Family Medicine 08/08/21 08/30/21 Tamika Loomis APRN [address] [facility] [address] [place] [address] PCP - General Family Medicine 08/31/21 09/14/21 Maegan Bermeo MD [address] [place] [address] PCP - General Family Medicine 09/15/21 Audra Wahl LPN VALUE-BASED [place] [address] TCM Nurse 09/27/21 10/27/21 Jessa Park LPN VALUE-BASED [place] [address] Registered Nurse 05/26/22 05/26/22 documented as of this encounter
--- OUTSIDE RECORDS SUMMARY | 2024-12-15 10:18 | XMS_ITS | Encounter Summary ---
Author Organization Healthcare Address [address] [place] [address] Care Team Providers Care Stitcher Around Name Role Phone Tyler Castelan MD Primary Care Provider [phone] Benjie Quezada MD Primary Care Provider Tamika Loomis APRN Primary Care Provider [phone] Maegan Bermeo MD Primary Care Provider [phone] Audra Wahl PIANO CASE AND BENCH ASSEMBLER Unavailable Unavailab Jessa Jimenez PIANO CASE AND BENCH ASSEMBLER Unavailable Unavailable Encounter Details Date Type Department Care Team (Late st Contact Info) Description 06/28/2021 Outside Procedure External Location [address] [place] [phone] Tyler Castelan MD [address] [place] [address] Social History Tobacco Use Types [...] PM EDT Narrative 06/28/2021 4:35 [place] [address] Name: RICA FLANNERY Exam Date: 06/28/2021 : 1955 Age 65 Gender: F Physician: TYLER CASTELAN Facility: [facility] Facility HSV: Outpatient Exam: VENOUS DUPLEX [...] Thank you for referring RICA FLANNERY to [facility]. Legally authenticated by KWAME HARGROVE 2021-06-28 16:23:11 Procedure Note Provider, [facility] - 06/28/2021 [facility] [address] [place] [address] Name: RICA FLANNERY Exam Date: 06/28/2021 : 1955 Age 65 Gender: F Physician: TYLER CASTELAN Facility: [facility] Facility HSV: Outpatient Exam: VENOUS DUPLEX [...] Thank you for referring RICA FLANNERY to [facility]. Legally authenticated by KWAME HARGROVE 2021-06-28 [...] and sent to appropriate Health Dept. IPAC Press Reader: Nimco Simms 10/26/2021 10/26/2021 022 10:27 AM EDT COVID 19 (Confirmed) 11/11/2021 11/11/2021 022 5:23 AM EDT COVID-19 Rule-Out 05/16/2022 05/16/2022 05/16/2022 11:05 PM EDT Assessment Noted Time A fall risk assessment has been complete d for the patient 06/28/2021 10:46 AM EDT documented as of this encounter Care Teams Stitcher Around Relationship Specialty Start Date End Date Tyler Castelan MD [address] [place] [address] PCP - General 07/02/20 08/07/21 Benjie Quezada MD [address] [facility] [address] [place] [address] PCP - General Family Medicine 08/08/21 08/30/21 Tamika Loomis, BOILERMAKER SHIP [address] [place] [address] PCP - General Family Medicine 08/31/21 09/14/21 Maegan Bermeo MD [address] [place] [address] PCP - General Family Medicine 09/15/21 Audra Wahl LPN VALUE-[place] [place] [address] TCM Nurse 09/27/21 10/27/21 Jessa Park LPN VALUE-[place] [address] Registered Nurse 05/26/22 05/26/22 documented as of this encounter
--- OUTSIDE RECORDS SUMMARY | 2024-12-15 10:18 | XMS_ITS | Encounter Summary ---
Author Organization Healthcare Address [address] [place] [address] Care Team Providers Care Lump Room Supervisor Name Role Phone Maegan Bermeo MD Primary Care Provider [phone] Encounter Details Date Type Department Care Team (Late st Contact Info) Description 07/03/2024 Orders Only External Location [address] [place] [address] Provider, External Social History Tobacco Use Types [...] first t ken in the morning (EYE-AUTOMOTIVE QUALITY ENGINEER) to steady your nerves or to get [...] documented as of this encounter Care Teams Lump Room Supervisor Relationship Specialty Start Date End Date Maegan Bermeo MD [address] [place] [address] PCP - General Family Medicine 09/15/21 documented as of this encounter
--- OUTSIDE RECORDS SUMMARY | 2024-12-15 10:18 | XMS_ITS | Encounter Summary ---
Author Organization Healthcare Address [address] [place] [address] Care Team Providers Care Contact Person Name Role Phone Maegan Bermeo MD Primary Care Provider [phone] Encounter Details Date Type Department Care Team (Late st Contact Info) Description 07/08/2024 Orders Only External Location [address] [place] [phone] Provider, External Social History Tobacco Use Types [...] drink first t ken in the morning (EYE-STATISTICIAN) to steady your nerves or to get [...] documented as of this encounter Care Teams Contact Person Relationship Specialty Start Date End Date Maegan Bermeo MD [address] [place] [address] PCP - General Family Medicine 09/15/21 documented as of this encounter
--- OUTSIDE RECORDS SUMMARY | 2024-12-15 10:18 | XMS_ITS | Encounter Summary ---
Author Organization Healthcare Address [address] [place] [address] Care Team Providers Care Hot Mill Roller Name Role Phone Maegan Bermeo MD Primary Care Provider [phone] Encounter Details Date Type Department Care Team (Late st Contact Info) Description 03/11/2024 Orders Only External Location [address] [place] [phone] Provider, External Social History Tobacco Use Types [...] drink first t ken in the morning (EYE-ELECTRIC CELL TENDER) to steady your nerves or to [...] documented as of this encounter Care Teams Hot Mill Roller Relationship Specialty Start Date End Date Maegan Bermeo MD [address] [place] [address] PCP - General Family Medicine 09/15/21 documented as of this encounter
--- OUTSIDE RECORDS SUMMARY | 2024-12-15 10:19 | XMS_ITS | Clinical Summary ---
Author Organization [facility] Address [address] [place] [address] Care Team Providers Care Fittings Tightener Name Role Phone Maegan Bermeo MD Primary Care Provider [phone] Allergies Active Allergy Reactions Criticality Noted Date [...] is elevated above patient's baseline of around 9795-6117 -most recent echo obtained in October 2021 [...] but pain at time of arrival to [facility] PLAN: -pain control initially with [...] Description 09/15/2024 10:40 AM EDT Office Visit [facility] [address] 5th Floor [address] [place] [address] Raimundo Hatch, DESTINY Ulcer of [...] drink first t ken in the morning (EYE-DEBEAKER) to steady your nerves or to get [...] Additional history exists [facility]-Depression Screening 06/08/2023 06/07/2022 [id number] Vaccine ( season) 2024 01/05/2022, 01/07/2021, 06/11/2020, [...] Adults <6.0% Children and Adolescents <7.5% Source: [place] [employer]. Standards of medical care in diabetes,2017. Diabetes Care.2017:40 (suppl 1):S1-S135. HbA1c assay performed by an ion-exchange chromatography method that is certified traceable to the DCCT. us Maegan Bermeo MD LAB BLOOD ORDERABLES Final Re sult Performing Organization Address City/[facility] Co de Phone Number [facility] [address] [place] [address] * Hepatitis C Antibody - ED (09/24/2021 7:52 AM EDT) Hepatitis C Antibody Negative Negative 09/24/2021 9:51 AM EDT [facility] Blood Venous blood specimen / Unknown Venipuncture / Unknown 09/24/2021 7:52 AM EDT 09/24/2021 8:10 AM EDT us Farida Sharif MD LAB BLOOD ORDERABLES Final Res ult [facility] [address] [place] [address] * MAMMOGRAPHY EXTERNAL RESULTS (01/20/2019) Anatomical Region [...] Recently Relevant to Health Maintenance Insurance MEDICARE [facility] Advance Directives * DNR/DNI (Latest [...] Patient has decision-making capacity? Yes Care Teams Fittings Tightener Relationship Specialty Start Date End Date Maegan Bermeo MD [address] [place] [address] PCP - General Family Medicine 09/15/21
[2024-12-15 10:21] LABS: Potassium 3.1 mmoL/L (3.5-5.1); Sodium 126 mmol/L (136-145)
[2024-12-15 10:24] LABS: Blood Urea Nitrogen 66 mg/dl (7-17); Calcium 8.9 mg/dl (8.4-10.2); Creatinine,Serum 1.40 mg/dl (0.52-1.04); Estimated Glomerular Filt Rate 37 ml/min (>60); GFR (African American) 45 ML/MIN (>60); Glucose 291 mg/dl (74-100)
[2024-12-15 10:41] LABS: Anion Gap 10.1 mEq/L (5-15); Carbon Dioxide 47 mmol/L (22.0-30.0)
[2024-12-15 10:49] LABS: Chloride 72 mmol/L (98-107)
== END 2024-12-14 23:59 | disposition home or self-care (01) ==
LOC: LAB.DROPOF 12-15 10:09
PROVIDERS: PCP Internal Medicine Adolescent Medicine; Visit Provider Internal Medicine Adolescent Medicine
DX: I25.10 Atherosclerotic heart disease of native coronary artery without angina pectoris (principal)
CPT/HCPCS: 80048

== ENCOUNTER 2024-12-15 07:47 | Outpatient (CLI) | payer MEDICARE, BC, SELFPAY ==
--- OUTSIDE RECORDS SUMMARY | 2024-12-15 07:49 | XMS_ITS | Clinical Summary ---
Author Organization [facility] Address [address] [place] [address] Care Team Providers Care Rehabilitation Program Coordinator Name Role Phone Unavailable Primary Care Provider Unavailabl e Social History Tobacco Use Types Packs/Day Years Used Date Smoking Tobacco: Never Assessed Comments Unknown Sex and Gender Information Value Date Recorded Sex Assigned at Not on file Legal Sex Female 3:51 PM EDT Gender Identity Not on file Sexual Orientation Not on file Plan of Treatment Upcoming Encounters Date Type Department Care Team (Late st Contact Info) Description 12/25/2024 2:00 PM EST Appointment [facility] Heart Failure [address] [place] [address] Medical [address] [place] [address] Richard Anderson MD [address] [place] [address] [address] [place], [place] [id number] Health Maintenance Due Date Last Done Comments Cologuard 1955 Colonoscopy 1953 Colorectal Cancer Screening 1953 FIT 1953 Lipid Screening 08/20/1971 Tetanus Vaccination (Every 10 Years) 08/20/1971 Hepatitis C Virus (HCV) Screening 1974 Breast Cancer Screening 08/20/2003 Pneumococcal Vaccine: 50+ Years (1 of 1 - PCV) 004 Zoster-RZV(Shingrix) (1 of 2) 08/20/2003 Fall Risk Assessment 2018 Osteoporosis Screening 2018 Advance Care Planning 02/20/2024 Depression Screening 02/20/2024 COVID-19 Vaccine ( - season) 2024 Influenza Vaccination (#1) 2024 RSV Vaccines (1 - 1-dose 75+ series) 2028 Insurance [employer] MEDICARE
--- OUTSIDE RECORDS SUMMARY | 2024-12-15 07:49 | XMS_ITS | Encounter Summary ---
Author Organization Healthcare Address [address] [place] [address] Care Team Providers Care Parachute Folder Name Role Phone Jan Castelan MD Primary Care Provider [phone] Benjie Quezada MD Primary Care Provider Tamika Loomis APRN Primary Care Provider [phone] Maegan Bermeo MD Primary Care Provider [phone] Audra Wahl MEDICAL DATA ENTRY CLERK Unavailable Unavailab Jessa Jimenez MEDICAL DATA ENTRY CLERK Unavailable Unavailable Reason for Visit * Reason Comments Med Refill Encounter Details Date Type Department Care Team (Late st Contact Info) Description 07/27/2020 Refill [facility] [address] [place] [address] Jan Castelan MD [address] [place] [address] Social History Tobacco Use Types [...] and sent to appropriate Health Dept. IPAC Natural Gas Treating Unit Operator: Brandiedon Demi 10/26/2021 10/26/2021 022 10:27 AM EDT COVID 19 (Confirmed) 11/11/2021 11/11/2021 022 5:23 AM EDT COVID-19 Rule-Out 05/16/2022 05/16/2022 05/16/2022 11:05 PM EDT documented as of this encounter Care Teams Parachute Folder Relationship Specialty Start Date End Date Jan Castelan MD [address] [place] [id number] PCP - General 07/02/20 08/07/21 Benjie Quezada MD [address] [place] [address] PCP - General Family Medicine 08/08/21 08/30/21 Tamika Loomis APRN [address] [place] [address] PCP - General Family Medicine 08/31/21 09/14/21 Maegan Bermeo MD [address] [place] [address] PCP - General Family Medicine 09/15/21 Audra Wahl LPN [employer] [place] [address] TCM Nurse 09/27/21 10/27/21 Jessa Park LPN [employer] [address] Registered Nurse 05/26/22 05/26/22 documented as of this encounter
--- OUTSIDE RECORDS SUMMARY | 2024-12-15 07:49 | XMS_ITS | Encounter Summary ---
Author Organization [facility] Address [address] [place] [address] Care Team Providers Care Ink Maker Name Role Phone Maegan Bermeo MD Primary Care Provider [phone] Audra Wahl CAKE WRAPPER Unavailable Unavailab Jessa Jimenez CAKE WRAPPER Unavailable Unavailable Reason for Visit * Reason Comments Med Refill Encounter Details Date Type Department Care Team (Late st Contact Info) Description 10/11/2021 Refill [facility] Community Medicine [address] [place] [address] Maegan Bermeo MD [address] [place] [address] Avitaminosis D Social History Tobacco [...] asymptomatic, not immunocompromised. Team aware. EVS notified. [facility] has verified patient has a COVID-19 positive result. A chart review has been completed, EPI PUI has been completed and sent to appropriate Health Dept. IPA Monorail Charger Operator: Nimco Simms 10/26/2021 10/26/2021 022 10:27 AM EDT COVID 19 (Confirmed) 11/11/2021 11/11/2021 022 5:23 AM EDT COVID-19 Rule-Out 05/16/2022 05/16/2022 05/16/2022 11:05 PM EDT Assessment Noted Time A fall risk assessment has been complete d for the patient 10/11/2021 11:31 AM EDT documented as of this encounter Care Teams Ink Maker Relationship Specialty Start Date End Date Maegan Bermeo MD [facility] [place] [address] PCP - General Family Medicine 09/15/21 Audra Wahl LPN [employer] [place] [address] TCM Nurse 09/27/21 10/27/21 Jessa Park LPN [employer] [place] [address] Registered Nurse 05/26/22 05/26/22 documented as of this encounter
--- OUTSIDE RECORDS SUMMARY | 2024-12-15 07:50 | XMS_ITS | Encounter Summary ---
Author Organization Healthcare Address [address] [place] [address] Care Team Providers Care Weigher Bulker Name Role Phone Jan Castelan MD Primary Care Provider [phone] Benjie Quezada MD Primary Care Provider Tamika Loomis APRN Primary Care Provider [phone] Maegan Bermeo MD Primary Care Provider [phone] Audra Wahl BLADE FILER Unavailable Unavailab Jessa Jimenez BLADE FILER Unavailable Unavailable Reason for Visit * Reason Comments Med Refill Encounter Details Date Type Department Care Team (Late st Contact Info) Description 02/22/2021 Refill Family [facility] Community Medicine [address] [place] [address] Jan Castelan MD [address] [place] [address] Uncontrolled type 2 diabetes mellitus with hyperglycemia ([facility]) Social History Tobacco Use Types [...] and sent to appropriate Health Dept. IPAC Sanitation Inspector: Brandiedon Demi 10/26/2021 10/26/2021 022 10:27 AM EDT COVID 19 (Confirmed) 11/11/2021 11/11/2021 022 5:23 AM EDT COVID-19 Rule-Out 05/16/2022 05/16/2022 05/16/2022 11:05 PM EDT documented as of this encounter Care Teams Weigher Bulker Relationship Specialty Start Date End Date Jan Castelan MD [address] [place] [phone] PCP - General 07/02/20 08/07/21 [place] [address] [place] [address] [address] [place] [address] PCP - General Family Medicine 08/08/21 08/30/21 Tamika Loomis APRN [address] [place] [address] PCP - General Family Medicine 08/31/21 09/14/21 Maegan Bermeo MD [address] [place] [address] PCP - General Family Medicine 09/15/21 Audra Wahl LPN [employer] [place] [address] TCM Nurse 09/27/21 10/27/21 Jessa Park LPN [employer] [place] [place] [address] Registered Nurse 05/26/22 05/26/22 documented as of this encounter
--- OUTSIDE RECORDS SUMMARY | 2024-12-15 07:50 | XMS_ITS | Encounter Summary ---
Author Organization Healthcare Address [address] [place] [address] Care Team Providers Care Dial Brusher Name Role Phone Maegan Bermeo MD Primary Care Provider [phone] Encounter Details Date Type Department Care Team (Late st Contact Info) Description 03/11/2024 Orders Only External Location [address] [place] [phone] Provider, External Social History Tobacco Use Types [...] drink first t ken in the morning (EYE-HAND STITCHER) to steady your nerves or to get [...] documented as of this encounter Care Teams Dial Brusher Relationship Specialty Start Date End Date Maegan Bermeo MD [address] [place] [address] PCP - General Family Medicine 09/15/21 documented as of this encounter
--- OUTSIDE RECORDS SUMMARY | 2024-12-15 07:50 | XMS_ITS | Encounter Summary ---
Author Organization [facility] Address [address] [place] [address] Care Team Providers Care Diamond Wheel Molder Name Role Phone Jan Castelan MD Primary Care Provider [phone] Benjie Quezada MD Primary Care Provider Tamika Loomis APRN Primary Care Provider [phone] Maegan Bermeo MD Primary Care Provider [phone] Audra Wahl METER MAKER Unavailable Unavailab Jessa Jimenez METER MAKER Unavailable Unavailable Reason for Visit * Reason Comments Med Refill Encounter Details Date Type Department Care Team (Late st Contact Info) Description 12/28/2020 Refill Family and Community Medicine [address] [place] [address] Jan Castelan MD [address] [place] [address] Social History Tobacco Use Types [...] asymptomatic, not immunocompromised. Team aware. EVS notified. [facility] has verified patient has a COVID-19 positive result. A chart review has been completed, EPI PUI has been completed and sent to appropriate Health Dept. [facility] Agronomy Internship: Nimco Demi 10/26/2021 10/26/2021 022 10:27 AM EDT COVID 19 (Confirmed) 11/11/2021 11/11/2021 022 5:23 AM EDT COVID-19 Rule-Out 05/16/2022 05/16/2022 05/16/2022 11:05 PM EDT documented as of this encounter Care Teams Diamond Wheel Molder Relationship Specialty Start Date End Date Jan Castelan MD [address] [place] [address] PCP - General 07/02/20 08/07/21 Benjie Quezada MD [address] [facility] [address] [place] [address] PCP - General Family Medicine 08/08/21 08/30/21 Tamika Loomis APRN [address] [facility] [address] [place] [address] PCP - General Family Medicine 08/31/21 09/14/21 Maegan Bermeo MD [address] [place] [address] PCP - General Family Medicine 09/15/21 Audra Wahl LPN VALUE-BASED [place] [address] TCM Nurse 09/27/21 10/27/21 Jessa Park LPN VALUE-BASED [place] [address] Registered Nurse 05/26/22 05/26/22 documented as of this encounter
--- OUTSIDE RECORDS SUMMARY | 2024-12-15 07:50 | XMS_ITS | Encounter Summary ---
Author Organization Healthcare Address [address] [place] [address] Care Team Providers Care Youth Specialist Name Role Phone Maegan Bermeo MD Primary Care Provider [phone] Encounter Details Date Type Department Care Team (Late st Contact Info) Description 07/03/2024 Orders Only External Location [address] [place] [address] Provider, External Social History Tobacco Use Types [...] drink first t ken in the morning (EYE-SUSTAINABLE DESIGN COORDINATOR) to steady your nerves or to get [...] documented as of this encounter Care Teams Youth Specialist Relationship Specialty Start Date End Date Maegan Bermeo MD [address] [place] [address] PCP - General Family Medicine 09/15/21 documented as of this encounter
--- OUTSIDE RECORDS SUMMARY | 2024-12-15 07:50 | XMS_ITS | Encounter Summary ---
Author Organization Healthcare Address [address] [place] [address] Care Team Providers Care Certified Endoscopy Technician Name Role Phone Maegan Bermeo MD Primary Care Provider [phone] Encounter Details Date Type Department Care Team (Late st Contact Info) Description 07/10/2024 Orders Only External Location [address] [place] [phone] Provider, External Social History Tobacco Use Types [...] drink first t ken in the morning (EYE-BEATER TENDER) to steady your nerves or to get [...] documented as of this encounter Care Teams Certified Endoscopy Technician Relationship Specialty Start Date End Date Maegan Bermeo MD [address] [place] [address] PCP - General Family Medicine 09/15/21 documented as of this encounter
--- OUTSIDE RECORDS SUMMARY | 2024-12-15 07:50 | XMS_ITS | Encounter Summary ---
Author Organization Healthcare Address [address] [place] [address] Care Team Providers Care Manager Foreign Name Role Phone Maegan Bermeo MD Primary Care Provider [phone] Jessa Park LPN Unavailable Unavailable Reason for Visit * Reason Comments Med Refill Encounter Details Date Type Department Care Team (Late st Contact Info) Description 11/26/2021 Refill Family and Community Medicine [address] [place] [address] Benjie Quezada MD [address] [place] [address] Social History Tobacco Use Types [...] as of this encounter Care Teams Manager Foreign Relationship Specialty Start Date End Date Maegan Bermeo MD [address] [place] [address] PCP - General Family Medicine 09/15/21 Jessa Park LPN VALUE-BASED [place] [address] Registered Nurse 05/26/22 05/26/22 documented as of this encounter
--- OUTSIDE RECORDS SUMMARY | 2024-12-15 07:50 | XMS_ITS | Encounter Summary ---
Author Organization Healthcare Address [address] [place] [address] Care Team Providers Care Pick And Shovel Man Name Role Phone Tyler Castelan MD Primary Care Provider [phone] Benjie Quezada MD Primary Care Provider Tamika Loomis APRN Primary Care Provider [phone] Maegan Bermeo MD Primary Care Provider [phone] Audra Wahl TRUCK LOADER Unavailable Unavailab Jessa Jimenez TRUCK LOADER Unavailable Unavailable Encounter Details Date Type Department Care Team (Late st Contact Info) Description 06/28/2021 Outside Procedure External Location [address] [place] [address] Tyler Castelan MD [address] [place] [address] Social History Tobacco Use Types [...] PM EDT Narrative 06/28/2021 4:35 [place] [address] Name: RICA FLANNERY Exam Date: 06/28/2021 : 1955 Age 65 Gender: F Physician: TYLER CASTELAN Facility: [facility] Facility HSV: Outpatient Exam: VENOUS [...] Thank you for referring RICA FLANNERY to [facility]. Legally authenticated by KWAME HARGROVE 2021-06-28 16:23:11 Procedure Note Provider, [facility] - 06/28/2021 [facility] [address] [place] [address] Name: RICA FLANNERY Exam Date: 06/28/2021 : 1955 Age 65 Gender: F Physician: TYLER CASTELAN Facility: [facility] Facility HSV: Outpatient Exam: VENOUS [...] Thank you for referring RICA FLANNERY to [facility]. Legally authenticated by KWAME HARGROVE 2021-06-28 16:23:11 [...] and sent to appropriate Health Dept. IPAC Bag Filler Machine Operator: Nimco Simms 10/26/2021 10/26/2021 022 10:27 AM EDT COVID 19 (Confirmed) 11/11/2021 11/11/2021 022 5:23 AM EDT COVID-19 Rule-Out 05/16/2022 05/16/2022 05/16/2022 11:05 PM EDT Assessment Noted Time A fall risk assessment has been complete d for the patient 06/28/2021 10:46 AM EDT documented as of this encounter Care Teams Pick And Shovel Man Relationship Specialty Start Date End Date Tyler Castelan MD [address] [place] [address] PCP - General 07/02/20 08/07/21 Benjie Quezada MD [address] [facility] [address] [place] [address] PCP - General Family Medicine 08/08/21 08/30/21 Tamika Loomis, MAINTENANCE MECHANIC MILLWRIGHT [address] [place] [address] PCP - General Family Medicine 08/31/21 09/14/21 Maegan Bermeo MD [address] [place] [address] PCP - General Family Medicine 09/15/21 Audra Wahl LPN VALUE-BASED [place] [address] TCM Nurse 09/27/21 10/27/21 Jessa Park LPN VALUE-BASED [place] [address] Registered Nurse 05/26/22 05/26/22 documented as of this encounter
--- OUTSIDE RECORDS SUMMARY | 2024-12-15 07:50 | XMS_ITS | Clinical Summary ---
Author Organization [facility] Address [address] [place] [address] Care Team Providers Care Model Maker Scale Name Role Phone Maegan Bermeo MD Primary Care Provider [phone] Allergies Active Allergy Reactions Criticality Noted Date [...] is elevated above patient's baseline of around 1589-8271 -most recent echo obtained in October 2021 [...] but pain at time of arrival to [facility] PLAN: -pain control initially with [...] Description 09/15/2024 10:40 AM EDT Office Visit [facility] [address] [facility] 5th Floor [address] [place] [address] Raimundo Hatch, DESTINY Ulcer of toe of left foot, with fat layer exposed (CMS/HCC) (Primary Dx); Diabetic neuropathy with neurologic complication (CMS/HCC); Corns and callosities; Nail dystrophy 09/15/2024 Travel from Last 3 Months Immunizations Immunization [...] drink first t ken in the morning (EYE-ORTHODONTIC LABORATORY TECHNICIAN) to steady your nerves or to [...] Last Done Comments [facility]-Bone Density Scan 1955 [facility]-Medicare Annual Wellness (AWV) 1955 [facility]-/Child/Adol SDOH Screenings [...] Additional history exists [facility]-Depression Screening 06/08/2023 06/07/2022 [id number] Vaccine ( season) 2024 01/05/2022, 01/07/2021, 06/11/2020, [...] Adults <6.0% Children and Adolescents <7.5% Source: [place] [employer]. Standards of medical care in diabetes,2017. Diabetes Care.2017:40 (suppl 1):S1-S135. HbA1c assay performed by an ion-exchange chromatography method that is certified traceable to the DCCT. us Maegan Bermeo MD LAB BLOOD ORDERABLES Final Re sult Performing Organization Address City/[facility] Co de Phone Number [facility] [address] [place] [address] * Hepatitis C Antibody - ED (09/24/2021 7:52 AM EDT) Hepatitis C Antibody Negative Negative 09/24/2021 9:[address] [facility] Blood Venous blood specimen / Unknown Venipuncture / Unknown 09/24/2021 7:52 AM EDT 09/24/2021 8:10 AM EDT us Farida Sharif MD LAB BLOOD ORDERABLES Final Res ult [facility] [address] [place] [address] * MAMMOGRAPHY EXTERNAL RESULTS (01/20/2019) Anatomical Region [...] Recently Relevant to Health Maintenance Insurance MEDICARE [facility] Advance Directives * DNR/DNI (Latest Code Status [...] Patient has decision-making capacity? Yes Care Teams Model Maker Scale Relationship Specialty Start Date End Date Maegan Bermeo MD [address] [place] [address] PCP - General Family Medicine 09/15/21
--- OUTSIDE RECORDS SUMMARY | 2024-12-15 07:50 | XMS_ITS | Encounter Summary ---
Author Organization Healthcare Address [address] [place] [address] Care Team Providers Care Diagnostic Imaging Manager Name Role Phone Maegan Bermeo MD Primary Care Provider [phone] Encounter Details Date Type Department Care Team (Late st Contact Info) Description 07/08/2024 Orders Only External Location [address] [place] [address] Provider, External Social History Tobacco Use Types [...] drink first t ken in the morning (EYE-STUDENT FINANCE SPECIALIST) to steady your nerves or to [...] documented as of this encounter Care Teams Diagnostic Imaging Manager Relationship Specialty Start Date End Date Maegan Bermeo MD [address] [place] [address] PCP - General Family Medicine 09/15/21 documented as of this encounter
[2024-12-15] MEDS: ALBUTEROL 0.083% 2.5 MG/3 ML NEB IH (09:00)
[2024-12-15 19:16] LABS: Blood Urea Nitrogen 65 mg/dl (7-17); Calcium 9.3 mg/dl (8.4-10.2); Creatinine,Serum 1.50 mg/dl (0.52-1.04); Estimated Glomerular Filt Rate 34 ml/min (>60); GFR (African American) 41 ML/MIN (>60); Glucose 376 mg/dl (74-100); Sodium 127 mmol/L (136-145)
[2024-12-15 19:29] LABS: Anion Gap 18.0 mEq/L (5-15); Carbon Dioxide 40 mmol/L (22.0-30.0)
[2024-12-15 19:47] LABS: Chloride 72 mmol/L (98-107); Potassium 3.0 mmoL/L (3.5-5.1)
[2024-12-15 20:31] LABS: C-Reactive Protein 95.6 mg/L (0-4)
[2024-12-17 07:11] LABS: Antinuclear Antibodies (ANA) Negative (Negative)
[2024-12-18 12:12] LABS: I006-IgE Cockroach, German <0.10 kU/L (Class 0); T006-IgE Cedar, Mountain <0.10 kU/L (Class 0); T007-IgE Oak, White <0.10 kU/L (Class 0); T008-IgE Elm, American <0.10 kU/L (Class 0); T015-IgE Ash, White <0.10 kU/L (Class 0); T022-IgE Pecan, Hickory <0.10 kU/L (Class 0); W001-IgE Ragweed, Short <0.10 kU/L (Class 0); W011-IgE Thistle, Russian <0.10 kU/L (Class 0); W014-IgE Pigweed, Common <0.10 kU/L (Class 0)
== END 2024-12-15 23:59 | disposition home or self-care (01) ==
PROVIDERS: Internal Medicine; PCP Internal Medicine; Visit Provider Internal Medicine Pulmonary Disease
DX: J84.9 Interstitial pulmonary disease, unspecified (principal); J30.9 Allergic rhinitis, unspecified; I25.10 Atherosclerotic heart disease of native coronary artery without angina pectoris
CPT/HCPCS: 36415; 80048; 82164; 82785; 86003; 86140; 86200; 94060; 94618; 94726; 94729

== ENCOUNTER 2024-12-30 16:43 | Outpatient (CLI) | payer MEDICARE, BC, SELFPAY ==
--- OUTSIDE RECORDS SUMMARY | 2024-12-30 16:46 | XMS_ITS | Encounter Summary ---
Author Organization Healthcare Address [address] [place] [address] Care Team Providers Care Kiln Door Repairer Name Role Phone Jan Castelan MD Primary Care Provider [phone] Benjie Quezada MD Primary Care Provider Tamika Loomis APRN Primary Care Provider [phone] Maegan Bermeo MD Primary Care Provider [phone] Audra Wahl BOG WORKER Unavailable Unavailab Jessa Jimenez BOG WORKER Unavailable Unavailable Reason for Visit * Reason Comments Med Refill Encounter Details Date Type Department Care Team (Late st Contact Info) Description 07/27/2020 Refill Family and Community Medicine [address] [place] [address] Jan Castelan MD [address] [place] [address] Social History Tobacco Use Types [...] and sent to appropriate Health Dept. IPAC Dental Mechanic: Brandiedon Demi 10/26/2021 10/26/2021 022 10:27 AM EDT COVID 19 (Confirmed) 11/11/2021 11/11/2021 022 5:23 AM EDT COVID-19 Rule-Out 05/16/2022 05/16/2022 05/16/2022 11:05 PM EDT documented as of this encounter Care Teams Kiln Door Repairer Relationship Specialty Start Date End Date Jan Castelan MD [address] [place] [address] PCP - General 07/02/20 08/07/21 Benjie Quezada MD [address] [place] [address] PCP - General Family Medicine 08/08/21 08/30/21 Tamika Loomis APRN [address] [place] [address] PCP - General Family Medicine 08/31/21 09/14/21 Maegan Bermeo MD [address] [place] [address] PCP - General Family Medicine 09/15/21 Audra Wahl LPN VALUE-[employer]ED [place] [address] TCM Nurse 09/27/21 10/27/21 Jessa Park LPN VALUE[employer]ED [place] [address] Registered Nurse 05/26/22 05/26/22 documented as of this encounter
--- OUTSIDE RECORDS SUMMARY | 2024-12-30 16:46 | XMS_ITS | Encounter Summary ---
Author Organization Healthcare Address [address] [place] [address] Care Team Providers Care Curriculum Coach Name Role Phone Maegan Bermeo MD Primary Care Provider [phone] Jessa Park LPN Unavailable Unavailable Reason for Visit * Reason Comments Med Refill Encounter Details Date Type Department Care Team (Late st Contact Info) Description 11/26/2021 Refill Family and Community Medicine [address] [place] [address] Benjie Quezada MD [address] [place] [address] Social History Tobacco Use Types [...] documented as of this encounter Care Teams Curriculum Coach Relationship Specialty Start Date End Date Maegan Bermeo MD [address] [place] [address] PCP - General Family Medicine 09/15/21 Jessa Park LPN [employer] [address] Registered Nurse 05/26/22 05/26/22 documented as of this encounter
--- OUTSIDE RECORDS SUMMARY | 2024-12-30 16:46 | XMS_ITS | Encounter Summary ---
Author Organization [facility] Address [address] [place] [address] Care Team Providers Care Facility Maintenance Supervisor Name Role Phone Jan Castelan MD Primary Care Provider [phone] Benjie Quezada MD Primary Care Provider Tamika Loomis APRN Primary Care Provider [phone] Maegan Bermeo MD Primary Care Provider [phone] Audra Wahl MERCHANDISING EXECUTION MANAGER Unavailable Unavailab Jessa Jimenez MERCHANDISING EXECUTION MANAGER Unavailable Unavailable Reason for Visit * Reason Comments Med Refill Encounter Details Date Type Department Care Team (Late st Contact Info) Description 12/28/2020 Refill Family and Community Medicine [address] [place] [address] Jan Castelan MD [address] [place] [address] Social History Tobacco Use Types [...] asymptomatic, not immunocompromised. Team aware. EVS notified. [facility] has verified patient has a COVID-19 positive result. A chart review has been completed, EPI PUI has been completed and sent to appropriate Health Dept. [facility] Caustic Loader: Nimco Demi 10/26/2021 10/26/2021 022 10:27 AM EDT COVID 19 (Confirmed) 11/11/2021 11/11/2021 022 5:23 AM EDT COVID-19 Rule-Out 05/16/2022 05/16/2022 05/16/2022 11:05 PM EDT documented as of this encounter Care Teams Facility Maintenance Supervisor Relationship Specialty Start Date End Date Jan Castelan MD [address] [place] [address] PCP - General 07/02/20 08/07/21 Benjie Quezada MD [address] [facility] [address] [place] [address] PCP - General Family Medicine 08/08/21 08/30/21 Tamika Loomis APRN [address] [facility] [address] [place] [address] PCP - General Family Medicine 08/31/21 09/14/21 Maegan Bermeo MD [address] [place] [address] PCP - General Family Medicine 09/15/21 Audra Wahl LPN VALUE-BASED [place] [address] TCM Nurse 09/27/21 10/27/21 Jessa Park LPN VALUE-BASED [place] [address] Registered Nurse 05/26/22 05/26/22 documented as of this encounter
--- OUTSIDE RECORDS SUMMARY | 2024-12-30 16:46 | XMS_ITS | Encounter Summary ---
Author Organization Healthcare Address [address] [place] [address] Care Team Providers Care Property Manager Name Role Phone Jan Castelan MD Primary Care Provider [phone] Benjie Quezada MD Primary Care Provider Tamika Loomis APRN Primary Care Provider [phone] Maegan Bermeo MD Primary Care Provider [phone] Audra Wahl OXYGEN EQUIPMENT AIDE Unavailable Unavailab Jessa Jimenez OXYGEN EQUIPMENT AIDE Unavailable Unavailable Reason for Visit * Reason Comments Med Refill Encounter Details Date Type Department Care Team (Late st Contact Info) Description 02/22/2021 Refill Family and Community Medicine [address] [place] [address] Jan Castelan MD [address] [place] [address] Uncontrolled type 2 diabetes mellitus with hyperglycemia ([facility]) Social History Tobacco Use Types Packs/Day Years [...] sent to appropriate Health Dept. IPAC Senior Sql Server Dba: Brandiedon Demi 10/26/2021 10/26/2021 022 10:27 AM EDT COVID 19 (Confirmed) 11/11/2021 11/11/2021 022 5:23 AM EDT COVID-19 Rule-Out 05/16/2022 05/16/2022 05/16/2022 11:05 PM EDT documented as of this encounter Care Teams Property Manager Relationship Specialty Start Date End Date Jan Castelan MD [address] [place] [address] PCP - General 07/02/20 08/07/21 [place] [address] [place] [address] [address] [place] [address] PCP - General Family Medicine 08/08/21 08/30/21 Tamika Loomis APRN [address] [place] [address] PCP - General Family Medicine 08/31/21 09/14/21 Maegan Bermeo MD [address] [place] [address] PCP - General Family Medicine 09/15/21 Audra Wahl LPN [employer] [address] TCM Nurse 09/27/21 10/27/21 Jessa Park LPN [employer] [address] Registered Nurse 05/26/22 05/26/22 documented as of this encounter
--- OUTSIDE RECORDS SUMMARY | 2024-12-30 16:46 | XMS_ITS | Encounter Summary ---
Author Organization Healthcare Address [address] [place] [address] Care Team Providers Care Glove Printer Name Role Phone Maegan Bermeo MD Primary Care Provider [phone] Encounter Details Date Type Department Care Team (Late st Contact Info) Description 07/10/2024 Orders Only External Location [address] [place] [address] Provider, External Social History Tobacco Use Types [...] drink first t ken in the morning (EYE-COLORMAN) to steady your nerves or to get [...] documented as of this encounter Care Teams Glove Printer Relationship Specialty Start Date End Date Maegan Bermeo MD [address] [place] [address] PCP - General Family Medicine 09/15/21 documented as of this encounter
--- OUTSIDE RECORDS SUMMARY | 2024-12-30 16:46 | XMS_ITS | Encounter Summary ---
Author Organization [facility] Address [address] [place] [address] Care Team Providers Care C Python Developer Name Role Phone Maegan Bermeo MD Primary Care Provider Audra Wahl LINING SEWER Unavailable Unavailab Jessa Jimenez LINING SEWER Unavailable Unavailable Reason for Visit * Reason Comments Med Refill Encounter Details Date Type Department Care Team (Late st Contact Info) Description 10/11/2021 Refill Family and Community Medicine [address] [place] [address] Maegan Bermeo MD [address] [place] [address] Avitaminosis D Social History Tobacco [...] asymptomatic, not immunocompromised. Team aware. EVS notified. [facility] has verified patient has a COVID-19 positive result. A chart review has been completed, EPI PUI has been completed and sent to appropriate Health Dept. IPA Civil Transportation Engineer: Nimco Simms 10/26/2021 10/26/2021 022 10:27 AM EDT COVID 19 (Confirmed) 11/11/2021 11/11/2021 022 5:23 AM EDT COVID-19 Rule-Out 05/16/2022 05/16/2022 05/16/2022 11:05 PM EDT Assessment Noted Time A fall risk assessment has been complete d for the patient 10/11/2021 11:31 AM EDT documented as of this encounter Care Teams C Python Developer Relationship Specialty Start Date End Date Maegan Bermeo MD [facility] [place] [address] PCP - General Family Medicine 09/15/21 Audra Wahl LPN VALUE-[employer]ED [place] [address] TCM Nurse 09/27/21 10/27/21 Jessa Park LPN VALUE-[employer]ED [place] [address] Registered Nurse 05/26/22 05/26/22 documented as of this encounter
--- OUTSIDE RECORDS SUMMARY | 2024-12-30 16:47 | XMS_ITS | Encounter Summary ---
Author Organization Healthcare Address [address] [place] [address] Care Team Providers Care Etl Lead Name Role Phone Tyler Castelan MD Primary Care Provider [phone] Benjie Quezada MD Primary Care Provider Tamika Loomis APRN Primary Care Provider [phone] Maegan Bermeo MD Primary Care Provider [phone] Audra Wahl MANAGER SCHOOL Unavailable Unavailab Jessa Jimenez MANAGER SCHOOL Unavailable Unavailable Encounter Details Date Type Department Care Team (Late st Contact Info) Description 06/28/2021 Outside Procedure External Location [address] [place] [phone] Tyler Castelan MD [address] [place] [address] Social History Tobacco Use Types [...] PM EDT Narrative 06/28/2021 4:35 [place] [address] Name: RICA FLANNERY Exam Date: 06/28/2021 : 1955 Age 65 Gender: F Physician: TYLER CASTELAN Facility: [facility] Facility HSV: Outpatient Exam: VENOUS DUPLEX [...] Thank you for referring RICA FLANNERY to [facility]. Legally authenticated by KWAME HARGROVE 2021-06-28 16:23:11 Procedure Note Provider, [facility] - 06/28/2021 [facility] [address] [place] [address] Name: RICA FLANNERY Exam Date: 06/28/2021 : 1955 Age 65 Gender: F Physician: TYLER CASTELAN Facility: [facility] Facility HSV: Outpatient Exam: VENOUS DUPLEX [...] Thank you for referring RICA FLANNERY to [facility]. Legally authenticated by KWAME HARGROVE [...] and sent to appropriate Health Dept. IPAC Spout Liner: Nimco Simms 10/26/2021 10/26/2021 022 10:27 AM EDT COVID 19 (Confirmed) 11/11/2021 11/11/2021 022 5:23 AM EDT COVID-19 Rule-Out 05/16/2022 05/16/2022 05/16/2022 11:05 PM EDT Assessment Noted Time A fall risk assessment has been complete d for the patient 06/28/2021 10:46 AM EDT documented as of this encounter Care Teams Etl Lead Relationship Specialty Start Date End Date Tyler Castelan MD [address] [place] [address] PCP - General 07/02/20 08/07/21 Benjie Quezada MD [address] [facility] [address] [place] [address] PCP - General Family Medicine 08/08/21 08/30/21 Tamika Loomis, FLOATING OPERATOR [address] [place] [address] PCP - General Family Medicine 08/31/21 09/14/21 Maegan Bermeo MD [address] [place] [address] PCP - General Family Medicine 09/15/21 Audra Wahl LPN VALUE-[place]ED [place] [address] TCM Nurse 09/27/21 10/27/21 Jessa Park LPN VALUE-[place] [place] [address] Registered Nurse 05/26/22 05/26/22 documented as of this encounter
--- OUTSIDE RECORDS SUMMARY | 2024-12-30 16:47 | XMS_ITS | Encounter Summary ---
Author Organization Healthcare Address [address] [place] [address] Care Team Providers Care Coupon Clerk Name Role Phone Maegan Bermeo MD Primary Care Provider [phone] Encounter Details Date Type Department Care Team (Late st Contact Info) Description 07/03/2024 Orders Only External Location [address] [place] [phone] Provider, External Social History Tobacco Use Types [...] drink first t ken in the morning (EYE-RETORT UNLOADER) to steady your nerves or to get [...] documented as of this encounter Care Teams Coupon Clerk Relationship Specialty Start Date End Date Maegan Bermeo MD [address] [place] [address] PCP - General Family Medicine 09/15/21 documented as of this encounter
--- OUTSIDE RECORDS SUMMARY | 2024-12-30 16:47 | XMS_ITS | Clinical Summary ---
Author Organization [facility] Address [address] [place] [address] Care Team Providers Care Floorworker Lasting Name Role Phone Maegan Bermeo MD Primary Care Provider [phone] Allergies Active Allergy Reactions Criticality Noted Date [...] is elevated above patient's baseline of around 8454-0946 -most recent echo obtained in October 2021 [...] but pain at time of arrival to [facility] PLAN: -pain control initially with [...] drink first t ken in the morning (EYE-PONY TRIMMER) to steady your nerves or to get [...] Last Done Comments UK-Bone Density Scan 1955 UK-Medicare Annual Wellness (AWV) 1955 UK-Infant/Child/Adol SDOH Screenings 1955 Diabetes: Dental Exam 08/20/1963 [facility]- SDOH Screenings 08/20/1971 UK-Adult SDOH Screenings 08/20/1971 [facility]Y-DTaP,Tdap,and Td Vaccines (1 [...] Additional history exists [facility]-Depression Screening 06/08/2023 06/07/2022 [id number] Vaccine ( season) 2024 01/05/2022, 01/07/2021, 06/11/2020, [...] Adults <6.0% Children and Adolescents <7.5% Source: [place] [employer]. Standards of medical care in diabetes,2017. Diabetes Care.2017:40 (suppl 1):S1-S135. HbA1c assay performed by an ion-exchange chromatography method that is certified traceable to the DCCT. us Maegan Bermeo MD LAB BLOOD ORDERABLES Final Re sult Performing Organization Address City/[facility]/ZIP Co de Phone Number [facility] [address] [place] [address] * Hepatitis C Antibody - ED (09/24/2021 7:52 AM EDT) Hepatitis C Antibody Negative Negative 09/24/2021 9:51 AM EDT [facility] Blood Venous blood specimen / Unknown Venipuncture / Unknown 09/24/2021 7:52 AM EDT 09/24/2021 8:10 AM EDT us Farida Sharif MD LAB BLOOD ORDERABLES Final Res ult [facility] [address] [place] [address] * MAMMOGRAPHY EXTERNAL RESULTS (01/20/2019) Anatomical Region [...] to Health Maintenance Insurance MEDICARE [facility] Advance Directives * DNR/DNI (Latest Code [...] Patient has decision-making capacity? Yes Care Teams Floorworker Lasting Relationship Specialty Start Date End Date Maegan Bermeo MD [address] [place] [address] PCP - General Family Medicine 09/15/21
--- OUTSIDE RECORDS SUMMARY | 2024-12-30 16:47 | XMS_ITS | Encounter Summary ---
Author Organization Healthcare Address [address] [place] [address] Care Team Providers Care Small Piece Cutter Name Role Phone Maegan Bermeo MD Primary Care Provider [phone] Encounter Details Date Type Department Care Team (Late st Contact Info) Description 07/08/2024 Orders Only External Location [address] [place] [phone] Provider, External Social History Tobacco Use Types [...] drink first t ken in the morning (EYE-SKI PATROLLER) to steady your nerves or to get [...] documented as of this encounter Care Teams Small Piece Cutter Relationship Specialty Start Date End Date Maegan Bermeo MD [address] [place] [address] PCP - General Family Medicine 09/15/21 documented as of this encounter
--- OUTSIDE RECORDS SUMMARY | 2024-12-30 16:47 | XMS_ITS | Encounter Summary ---
Author Organization Healthcare Address [address] [place] [address] Care Team Providers Care Desktop Operator Name Role Phone Maegan Bermeo MD Primary Care Provider [phone] Encounter Details Date Type Department Care Team (Late st Contact Info) Description 03/11/2024 Orders Only External Location [address] [place] [phone] Provider, External Social History Tobacco Use Types [...] drink first t ken in the morning (EYE-LABORER EGG PRODUCING FARM) to steady your nerves or to get [...] documented as of this encounter Care Teams Desktop Operator Relationship Specialty Start Date End Date Maegan Bermeo MD [address] [place] [address] PCP - General Family Medicine 09/15/21 documented as of this encounter
[2024-12-30 17:35] LABS: Hematocrit 40.0 % (37.0-47.0); Hemoglobin 12.3 g/dL (12.2-16.2); Immature Granulocytes % 0.5 %; Mean Corpuscular HGB Conc 30.8 g/dL (31.8-35.4); Mean Corpuscular Hemoglobin 24.8 pg (27.0-31.2); Mean Corpuscular Volume 80.6 fl (81-99); Nucleated Red Blood Cells % 0 %; Platelet Count 623 K/mm3 (142-424); Red Blood Count 4.96 M/mm3 (4.20-5.40); Red Cell Distribution Width-SD 55.2 fL; White Blood Count 16.9 K/mm3 (4.8-10.8)
[2024-12-30 18:14] LABS: Total Cells Counted 100
[2024-12-30 18:15] LABS: Schistocytes 1+; Stomatocytes 1+; Target Cells 2+
[2024-12-30 18:16] LABS: Hypochromasia 2+
[2024-12-30 20:03] LABS: Blood Urea Nitrogen 39 mg/dl (7-17); Calcium 9.4 mg/dl (8.4-10.2); Creatinine,Serum 1.30 mg/dl (0.52-1.04); Estimated Glomerular Filt Rate 40 ml/min (>60); GFR (African American) 49 ML/MIN (>60); Glucose 350 mg/dl (74-100); Magnesium 1.7 mg/dl (1.6-2.3); Potassium 3.6 mmoL/L (3.5-5.1); Sodium 127 mmol/L (136-145)
[2024-12-30 22:15] LABS: Anion Gap 15.6 mEq/L (5-15); Carbon Dioxide > 40 mmol/L (22.0-30.0)
== END 2024-12-30 23:59 | disposition home or self-care (01) ==
LOC: LAB.DROPOF 16:45
PROVIDERS: Nurse Practitioner Family; PCP Internal Medicine; Visit Provider Internal Medicine Adolescent Medicine
DX: J15.212 Pneumonia due to Methicillin resistant Staphylococcus aureus (principal)
CPT/HCPCS: 80048; 83735; 85007; 85025

== ENCOUNTER 2024-12-31 00:50 | Outpatient (CLI) | payer MEDICARE, BC, SELFPAY ==
--- OUTSIDE RECORDS SUMMARY | 2024-12-31 00:53 | XMS_ITS | Encounter Summary ---
Author Organization Healthcare Address [address] [place] [address] Care Team Providers Care Dust Mill Operator Name Role Phone Jan Castelan MD Primary Care Provider [phone] Benjie Quezada MD Primary Care Provider Tamika Loomis APRN Primary Care Provider [phone] Maegan Bermeo MD Primary Care Provider [phone] Audra Wahl POEM WRITER Unavailable Unavailab Jessa Jimenez POEM WRITER Unavailable Unavailable Reason for Visit * Reason Comments Med Refill Encounter Details Date Type Department Care Team (Late st Contact Info) Description 02/22/2021 Refill Family and Community Medicine [address] [place] [address] Jan Castelan MD [address] [place] [address] Uncontrolled type 2 diabetes mellitus with hyperglycemia ([facility]) Social History Tobacco Use Types [...] and sent to appropriate Health Dept. IPAC Tandem Mill Roller: Brandiedon Demi 10/26/2021 10/26/2021 022 10:27 AM EDT COVID 19 (Confirmed) 11/11/2021 11/11/2021 022 5:23 AM EDT COVID-19 Rule-Out 05/16/2022 05/16/2022 05/16/2022 11:05 PM EDT documented as of this encounter Care Teams Dust Mill Operator Relationship Specialty Start Date End Date Jan Castelan MD [address] [place] [address] PCP - General 07/02/20 08/07/21 [place] [address] [place] [address] [address] [place] [address] PCP - General Family Medicine 08/08/21 08/30/21 Tamika Loomis APRN [address] [place] [address] PCP - General Family Medicine 08/31/21 09/14/21 Maegan Bermeo MD [address] [place] [address] PCP - General Family Medicine 09/15/21 Audra Wahl LPN VALUE-[employer] [place] [address] TCM Nurse 09/27/21 10/27/21 Jessa Park LPN VALUE-[employer] [address] Registered Nurse 05/26/22 05/26/22 documented as of this encounter
--- OUTSIDE RECORDS SUMMARY | 2024-12-31 00:53 | XMS_ITS | Encounter Summary ---
Author Organization Healthcare Address [address] [place] [address] Care Team Providers Care Insole Toe Snipping Machine Operator Name Role Phone Maegan Bermeo MD Primary Care Provider Encounter Details Date Type Department Care Team (Late st Contact Info) Description 07/10/2024 Orders Only External Location [address] [place] [id number] Provider, External Social History Tobacco Use Types [...] drink first t ken in the morning (EYE-ASSET PROTECTION AGENT) to steady your nerves or to get [...] documented as of this encounter Care Teams Insole Toe Snipping Machine Operator Relationship Specialty Start Date End Date Maegan Bermeo MD [address] [place] [address] PCP - General Family Medicine 09/15/21 documented as of this encounter
--- OUTSIDE RECORDS SUMMARY | 2024-12-31 00:53 | XMS_ITS | Encounter Summary ---
Author Organization [facility] Address [address] [place] [address] Care Team Providers Care Certified Activities Director Name Role Phone Maegan Bermeo MD Primary Care Provider [phone] Audra Wahl REVENUE STAMP CUTTER Unavailable Unavailab Jessa Jimenez REVENUE STAMP CUTTER Unavailable Unavailable Reason for Visit * Reason Comments Med Refill Encounter Details Date Type Department Care Team (Late st Contact Info) Description 10/11/2021 Refill Family and Community Medicine [address] [place] [address] Maegan Bermeo MD [address] [place] [address] Avitaminosis D Social History Tobacco [...] asymptomatic, not immunocompromised. Team aware. EVS notified. [facility] has verified patient has a COVID-19 positive result. A chart review has been completed, EPI PUI has been completed and sent to appropriate Health Dept. IPA Nursery Rn: Nimco Simms 10/26/2021 10/26/2021 022 10:27 AM EDT COVID 19 (Confirmed) 11/11/2021 11/11/2021 022 5:23 AM EDT COVID-19 Rule-Out 05/16/2022 05/16/2022 05/16/2022 11:05 PM EDT Assessment Noted Time A fall risk assessment has been complete d for the patient 10/11/2021 11:31 AM EDT documented as of this encounter Care Teams Certified Activities Director Relationship Specialty Start Date End Date Maegan Bermeo MD [facility] [place] [address] PCP - General Family Medicine 09/15/21 Audra Wahl LPN VALUE-[place]ED [place] [address] TCM Nurse 09/27/21 10/27/21 Jessa Park LPN VALUE-[place] [address] Registered Nurse 05/26/22 05/26/22 documented as of this encounter
--- OUTSIDE RECORDS SUMMARY | 2024-12-31 00:53 | XMS_ITS | Encounter Summary ---
Author Organization Healthcare Address [address] [place] [address] Care Team Providers Care Pump House Engineer Name Role Phone Maegan Bermeo MD Primary Care Provider Jessa Park LPN Unavailable Unavailable Reason for Visit * Reason Comments Med Refill Encounter Details Date Type Department Care Team (Late st Contact Info) Description 11/26/2021 Refill Family and Community Medicine [address] [place] [address] Benjie Quezada MD [address] [place] [address] Social History Tobacco Use Types [...] documented as of this encounter Care Teams Pump House Engineer Relationship Specialty Start Date End Date Maegan Bermeo MD [address] [place] [address] PCP - General Family Medicine 09/15/21 Jessa Park LPN VALUE-[place] [address] Registered Nurse 05/26/22 05/26/22 documented as of this encounter
--- OUTSIDE RECORDS SUMMARY | 2024-12-31 00:53 | XMS_ITS | Encounter Summary ---
Author Organization Healthcare Address [address] [place] [address] Care Team Providers Care Awning Assembler Name Role Phone Jan Castelan MD Primary Care Provider [phone] Benjie Quezada MD Primary Care Provider Tamika Loomis APRN Primary Care Provider [phone] Maegan Bermeo MD Primary Care Provider [phone] Audra Wahl DIRECTOR OF SALES MARKETING Unavailable Unavailab Jessa Jimenez DIRECTOR OF SALES MARKETING Unavailable Unavailable Reason for Visit * Reason Comments Med Refill Encounter Details Date Type Department Care Team (Late st Contact Info) Description 07/27/2020 Refill Family and Community Medicine [address] [place] [address] Jan Castelan MD [address] [place] [address] Social History Tobacco Use Types [...] and sent to appropriate Health Dept. IPAC Machine Tester: Brandiedon Demi 10/26/2021 10/26/2021 022 10:27 AM EDT COVID 19 (Confirmed) 11/11/2021 11/11/2021 022 5:23 AM EDT COVID-19 Rule-Out 05/16/2022 05/16/2022 05/16/2022 11:05 PM EDT documented as of this encounter Care Teams Awning Assembler Relationship Specialty Start Date End Date Jan Castelan MD [address] [place] [address] PCP - General 07/02/20 08/07/21 Benjie Quezada MD [address] [place] [address] PCP - General Family Medicine 08/08/21 08/30/21 Tamika Loomis APRN [address] [place] [address] PCP - General Family Medicine 08/31/21 09/14/21 Maegan Bermeo MD [address] [place] [address] PCP - General Family Medicine 09/15/21 Audra Wahl LPN VALUE-[place] [address] TCM Nurse 09/27/21 10/27/21 Jessa Park LPN VALUE[employer] [address] Registered Nurse 05/26/22 05/26/22 documented as of this encounter
--- OUTSIDE RECORDS SUMMARY | 2024-12-31 00:54 | XMS_ITS | Encounter Summary ---
Author Organization Healthcare Address [address] [place] [address] Care Team Providers Care Paper Reeler Name Role Phone Maegan Bermeo MD Primary Care Provider [phone] Encounter Details Date Type Department Care Team (Late st Contact Info) Description 07/03/2024 Orders Only External Location [address] [place] [address] Provider, External Social History Tobacco Use Types [...] drink first t ken in the morning (EYE-STOREKEEPER HELPER) to steady your nerves or to [...] documented as of this encounter Care Teams Paper Reeler Relationship Specialty Start Date End Date Maegan Bermeo MD [address] [place] [address] PCP - General Family Medicine 09/15/21 documented as of this encounter
--- OUTSIDE RECORDS SUMMARY | 2024-12-31 00:54 | XMS_ITS | Encounter Summary ---
Author Organization Healthcare Address [address] [place] [address] Care Team Providers Care Manager Internet Retails Sales Name Role Phone Maegan Bermeo MD Primary Care Provider [phone] Encounter Details Date Type Department Care Team (Late st Contact Info) Description 07/08/2024 Orders Only External Location [address] [place] [address] Provider, External Social History Tobacco Use Types [...] drink first t ken in the morning (EYE-SHEEP STICKER) to steady your nerves or to get [...] as of this encounter Care Teams Manager Internet Retails Sales Relationship Specialty Start Date End Date Maegan Bermeo MD [address] [place] [address] PCP - General Family Medicine 09/15/21 documented as of this encounter
--- OUTSIDE RECORDS SUMMARY | 2024-12-31 00:54 | XMS_ITS | Clinical Summary ---
Author Organization [facility] Address [address] [place] [address] Care Team Providers Care Straightening Press Operator Helper Name Role Phone Maegan Bermeo MD Primary Care Provider [phone] Allergies Active Allergy Reactions Criticality Noted Date [...] is elevated above patient's baseline of around 0834-6192 -most recent echo obtained in October 2021 [...] but pain at time of arrival to [facility] PLAN: -pain control initially with [...] drink first t ken in the morning (EYE-TANK CREWMEMBER) to steady your nerves or to get [...] Additional history exists [facility]-Depression Screening 06/08/2023 06/07/2022 [id number] Vaccine ( season) 2024 01/05/2022, 01/07/2021, 06/11/2020, [...] Adults <6.0% Children and Adolescents <7.5% Source: [place] [employer]. Standards of medical care in diabetes,2017. Diabetes Care.2017:40 (suppl 1):S1-S135. HbA1c assay performed by an ion-exchange chromatography method that is certified traceable to the DCCT. us Maegan Bermeo MD LAB BLOOD ORDERABLES Final Re sult Performing Organization Address City/[facility]/ZIP Co de Phone Number [facility] [address] [place] [address] * Hepatitis C Antibody - ED (09/24/2021 7:52 AM EDT) Hepatitis C Antibody Negative Negative 09/24/2021 9:51 AM EDT [facility] Blood Venous blood specimen / Unknown Venipuncture / Unknown 09/24/2021 7:52 AM EDT 09/24/2021 8:10 AM EDT us Farida Sharif MD LAB BLOOD ORDERABLES Final Res ult [facility] [address] [place] [address] * MAMMOGRAPHY EXTERNAL RESULTS (01/20/2019) Anatomical Region [...] Recently Relevant to Health Maintenance Insurance MEDICARE [facility] Advance Directives * DNR/DNI (Latest Code [...] Patient has decision-making capacity? Yes Care Teams Straightening Press Operator Helper Relationship Specialty Start Date End Date Maegan Bermeo MD [address] [place] [address] PCP - General Family Medicine 09/15/21
--- OUTSIDE RECORDS SUMMARY | 2024-12-31 00:54 | XMS_ITS | Encounter Summary ---
Author Organization Healthcare Address [address] [place] [address] Care Team Providers Care Airplane Woodworker Name Role Phone Tyler Castelan MD Primary Care Provider [phone] Benjie Quezada MD Primary Care Provider Tamika Loomis APRN Primary Care Provider [phone] Maegan Bermeo MD Primary Care Provider [phone] Audra Wahl REPRODUCER Unavailable Unavailab Jessa Jimenez REPRODUCER Unavailable Unavailable Encounter Details Date Type Department Care Team (Late st Contact Info) Description 06/28/2021 Outside Procedure External Location [address] [place] [phone] Tyler Castelan MD [address] [place] [address] Social History Tobacco Use Types [...] PM EDT Narrative 06/28/2021 4:35 [place] [address] Name: RICA FLANNERY Exam Date: 06/28/2021 : [...] Thank [facility]. Legally authenticated by KWAME HARGROVE 2021-06-28 16:23:11 Procedure Note Provider, [facility] - 06/28/2021 [facility] [address] [place] [address] Name: RICA FLANNERY Exam Date: 06/28/2021 : [...] Thank you for referring [facility] to [facility]. Legally authenticated by KWAME HARGROVE [...] and sent to appropriate Health Dept. IPAC Boilermaker Loftsman: Nimco Simms 10/26/2021 10/26/2021 022 10:27 AM EDT COVID 19 (Confirmed) 11/11/2021 11/11/2021 022 5:23 AM EDT COVID-19 Rule-Out 05/16/2022 05/16/2022 05/16/2022 11:05 PM EDT Assessment Noted Time A fall risk assessment has been complete d for the patient 06/28/2021 10:46 AM EDT documented as of this encounter Care Teams Airplane Woodworker Relationship Specialty Start Date End Date Tyler Castelan MD [address] [place] [address] PCP - General 07/02/20 08/07/21 Benjie Quezada MD [address] [facility] [address] [place] [address] PCP - General Family Medicine 08/08/21 08/30/21 Tamika Loomis, AXLE TURNER [address] [place] [address] PCP - General Family Medicine 08/31/21 09/14/21 Maegan Bermeo MD [address] [place] [address] PCP - General Family Medicine 09/15/21 Audra Wahl LPN VALUE-[employer]ED [place] [address] TCM Nurse 09/27/21 10/27/21 Jessa Park LPN VALUE-BASED [place] [address] Registered Nurse 05/26/22 05/26/22 documented as of this encounter
--- OUTSIDE RECORDS SUMMARY | 2024-12-31 00:54 | XMS_ITS | Encounter Summary ---
Author Organization [facility] Address [address] [place] [address] Care Team Providers Care Shaper Hand Name Role Phone Jan Castelan MD Primary Care Provider [phone] Benjie Quezada MD Primary Care Provider Tamika Loomis APRN Primary Care Provider [phone] Maegan Bermeo MD Primary Care Provider [phone] Audra Wahl REVERSAL PRINT INSPECTOR Unavailable Unavailab Jessa Jimenez REVERSAL PRINT INSPECTOR Unavailable Unavailable Reason for Visit * Reason Comments Med Refill Encounter Details Date Type Department Care Team (Late st Contact Info) Description 12/28/2020 Refill Family and Community Medicine [address] [place] [address] Jan Castelan MD [address] [place] [address] Social History Tobacco Use Types [...] not immunocompromised. Team aware. EVS notified. [facility] has verified patient has a COVID-19 positive result. A chart review has been completed, EPI PUI has been completed and sent to appropriate Health Dept. [facility] Curing Oven Tender: Nimco Demi 10/26/2021 10/26/2021 022 10:27 AM EDT COVID 19 (Confirmed) 11/11/2021 11/11/2021 022 5:23 AM EDT COVID-19 Rule-Out 05/16/2022 05/16/2022 05/16/2022 11:05 PM EDT documented as of this encounter Care Teams Shaper Hand Relationship Specialty Start Date End Date Jan Castelan MD [address] [place] [address] PCP - General 07/02/20 08/07/21 Benjie Quezada MD [address] [facility] [address] [place] [address] PCP - General Family Medicine 08/08/21 08/30/21 Tamika Loomis APRN [address] [facility] [address] [place] [address] PCP - General Family Medicine 08/31/21 09/14/21 Maegan Bermeo MD [address] [place] [address] PCP - General Family Medicine 09/15/21 Audra Wahl LPN VALUE-BASED [place] [address] TCM Nurse 09/27/21 10/27/21 Jessa Park LPN VALUE-BASED [place] [address] Registered Nurse 05/26/22 05/26/22 documented as of this encounter
--- OUTSIDE RECORDS SUMMARY | 2024-12-31 00:54 | XMS_ITS | Encounter Summary ---
Author Organization Healthcare Address [address] [place] [address] Care Team Providers Care Mechanotherapist Name Role Phone Maegan Bermeo MD Primary Care Provider [phone] Encounter Details Date Type Department Care Team (Late st Contact Info) Description 03/11/2024 Orders Only External Location [address] [place] [phone] Provider, External Social History Tobacco Use Types [...] drink first t ken in the morning (EYE-RADIO ANNOUNCER) to steady your nerves or to get [...] documented as of this encounter Care Teams Mechanotherapist Relationship Specialty Start Date End Date Maegan Bermeo MD [address] [place] [address] PCP - General Family Medicine 09/15/21 documented as of this encounter
[2024-12-31 01:55] LABS: Microscopic, Urine URINE MICROSCOPIC (MICROSCOPIC)
[2024-12-31 02:52] LABS: Bilirubin,Urine Negative (Negative); Color,Urine YELLOW (Yellow); Glucose,Urine (UA) 3+ (Negative); Ketones,Urine Negative (Negative); Leukocyte Esterase,Urine 1+ (Negative); PH,Urine 6.0 (5.0-8.5); Protein,Urine Negative (Negative); Specific Gravity, Urine 1.010 (1.005-1.030); Urobilinogen,Urine 0.2 EU/dl (0.2)
[2024-12-31 03:18] LABS: Bacteria,Urine 3+ /lpf
== END 2024-12-31 23:59 | disposition home or self-care (01) ==
LOC: LAB.DROPOF 00:52
PROVIDERS: Internal Medicine Adolescent Medicine; PCP Internal Medicine; Visit Provider Nurse Practitioner Family
DX: N39.0 Urinary tract infection, site not specified (principal)
CPT/HCPCS: 81001; 87086; 87088

== ENCOUNTER 2025-01-19 14:59 | Outpatient (CLI) | payer MEDICARE, BC, SELFPAY ==
--- OUTSIDE RECORDS SUMMARY | 2025-01-19 15:02 | XMS_ITS | Encounter Summary ---
Author Organization Healthcare Address [address] [place] [address] Care Team Providers Care Stove Cleaner Name Role Phone Jan Castelan MD Primary Care Provider [phone] Benjie Quezada MD Primary Care Provider Tamika Loomis APRN Primary Care Provider [phone] Maegan Bermeo MD Primary Care Provider [phone] Audra Wahl BLADE BONER Unavailable Unavailab Jessa Jimenez BLADE BONER Unavailable Unavailable Reason for Visit * Reason Comments Med Refill Encounter Details Date Type Department Care Team (Late st Contact Info) Description 07/27/2020 Refill Family and Community Medicine [address] [place] [address] aJn Castelan MD [address] [place] [address] Social History Tobacco Use Types [...] and sent to appropriate Health Dept. IPAC Glue Machine Operator: Brandiedon Demi 10/26/2021 10/26/2021 022 10:27 AM EDT COVID 19 (Confirmed) 11/11/2021 11/11/2021 022 5:23 AM EDT COVID-19 Rule-Out 05/16/2022 05/16/2022 05/16/2022 11:05 PM EDT documented as of this encounter Care Teams Stove Cleaner Relationship Specialty Start Date End Date Jan Castelan MD [address] [place] [address] PCP - General 07/02/20 08/07/21 Benjie Quezada MD [address] [place] [address] PCP - General Family Medicine 08/08/21 08/30/21 Tamika Looims APRN [address] [place] [address] PCP - General Family Medicine 08/31/21 09/14/21 Maegan Bermeo MD [address] [place] [address] PCP - General Family Medicine 09/15/21 Audra Wahl LPN VALUE[employer] [address] None TCM Nurse 09/27/21 10/27/21 Jessa Park LPN VALUE-BASED TRANSFORMATION PROGRAM [place] [id number] None Registered Nurse 05/26/22 05/26/22 documented as of this encounter
--- OUTSIDE RECORDS SUMMARY | 2025-01-19 15:02 | XMS_ITS | Encounter Summary ---
Author Organization Healthcare Address [address] [place] [address] Care Team Providers Care Inspector Final Assembly Electrical Name Role Phone Jan Castelan MD Primary Care Provider [phone] Benjie Quezada MD Primary Care Provider Tamika Loomis APRN Primary Care Provider [phone] Maegan Bermeo MD Primary Care Provider [phone] Audra Wahl CORE WINDING OPERATOR Unavailable Unavailab Jessa Jimenez CORE WINDING OPERATOR Unavailable Unavailable Reason for Visit * Reason Comments Med Refill Encounter Details Date Type Department Care Team (Late st Contact Info) Description 02/22/2021 Refill Family and Community Medicine [address] [place] [address] Jan Castelan MD [address] [place] [address] Uncontrolled type 2 diabetes mellitus with hyperglycemia ([facility]) Social History Tobacco Use Types Packs/Day [...] and sent to appropriate Health Dept. IPAC Shot Polisher And Inspector: Brandiedon Demi 10/26/2021 10/26/2021 022 10:27 AM EDT COVID 19 (Confirmed) 11/11/2021 11/11/2021 022 5:23 AM EDT COVID-19 Rule-Out 05/16/2022 05/16/2022 05/16/2022 11:05 PM EDT documented as of this encounter Care Teams Inspector Final Assembly Electrical Relationship Specialty Start Date End Date Jan Castelan MD [address] [place] [address] PCP - General 07/02/20 08/07/21 [place] [address] [place] [address] [address] [place] [address] PCP - General Family Medicine 08/08/21 08/30/21 Tamika Loomis APRN [address] [place] [address] PCP - General Family Medicine 08/31/21 09/14/21 Maegan Bermeo MD [address] [place] [address] PCP - General Family Medicine 09/15/21 Audra Wahl LPN VALUE-[place] [place] [address] None TCM Nurse 09/27/21 10/27/21 Jessa Park LPN VALUE-[place]ED [place] [address] None Registered Nurse 05/26/22 05/26/22 documented as of this encounter
--- OUTSIDE RECORDS SUMMARY | 2025-01-19 15:02 | XMS_ITS | Encounter Summary ---
Author Organization Healthcare Address [address] [place] [address] Care Team Providers Care Environmental Technician Name Role Phone Tyler Catselan MD Primary Care Provider [phone] Benjie Quezada MD Primary Care Provider Tamika Loomis APRN Primary Care Provider [phone] Maegan Bermeo MD Primary Care Provider [phone] Audra Wahl PET HOUSE SITTER Unavailable Unavailab Jessa Jimenez PET HOUSE SITTER Unavailable Unavailable Encounter Details Date Type Department Care Team (Late st Contact Info) Description 06/28/2021 Outside Procedure External Location [address] [place] [phone] Tyler Castelan MD [address] [place] [address] Social History Tobacco Use Types [...] PM EDT Narrative 06/28/2021 4:35 [place] [address] Name: RICA FLANNERY Exam Date: 06/28/2021 : [...] Thank you for referring RICA FLANNERY to [facility]. Legally authenticated by KWAME HARGROVE 2021-06-28 16:23:11 Procedure Note Provider, [facility] - 06/28/2021 [facility] [address] [place] [address] Name: RICA FLANNERY Exam Date: 06/28/2021 : [...] Thank you for referring RICA FLANNERY to [facility]. Legally authenticated by KWAME HARGROVE 2021-06-28 16:23:11 [...] and sent to appropriate Health Dept. IPAC Core Laying Machine Operator: Nimco Simms 10/26/2021 10/26/2021 022 10:27 AM EDT COVID 19 (Confirmed) 11/11/2021 11/11/2021 022 5:23 AM EDT COVID-19 Rule-Out 05/16/2022 05/16/2022 05/16/2022 11:05 PM EDT Assessment Noted Time A fall risk assessment has been complete d for the patient 06/28/2021 10:46 AM EDT documented as of this encounter Care Teams Environmental Technician Relationship Specialty Start Date End Date Tyler Castelan MD [address] [place] [address] PCP - General 07/02/20 08/07/21 Benjie Quezada MD [address] [facility] [address] [place] [address] PCP - General Family Medicine 08/08/21 08/30/21 Tamika Loomis, FIRE CONTROL ASSISTANT [address] [place] [address] PCP - General Family Medicine 08/31/21 09/14/21 Maegan Bermeo MD [address] [place] [address] PCP - General Family Medicine 09/15/21 Audra Wahl LPN VALUE[place] [address] None TCM Nurse 09/27/21 10/27/21 Jessa Park LPN VALUE[employer] [address] None Registered Nurse 05/26/22 05/26/22 documented as of this encounter
--- OUTSIDE RECORDS SUMMARY | 2025-01-19 15:02 | XMS_ITS | Encounter Summary ---
Author Organization [facility] Address [address] [place] [address] Care Team Providers Care Hydroelectric Station Chief Name Role Phone Maegan Bermeo MD Primary Care Provider [phone] Audra Wahl RERECORDING MIXER Unavailable Unavailab Jessa Jimenez RERECORDING MIXER Unavailable Unavailable Reason for Visit * Reason Comments Med Refill Encounter Details Date Type Department Care Team (Late st Contact Info) Description 10/11/2021 Refill Family and Community Medicine [address] [place] [address] Maegan Bermeo MD [address] [place] [address] Avitaminosis D Social History Tobacco [...] down, depressed, or hopeless Not at all 09/20 11:32 AM EDT Kassandra Duran Patient Health Questionnaire-2 Score 0 09/20 11:32 AM EDT Kassandra Duran * Calculated [...] asymptomatic, not immunocompromised. Team aware. EVS notified. [facility] has verified patient has a COVID-19 positive result. A chart review has been completed, EPI PUI has been completed and sent to appropriate Health Dept. [facility] Railways Assistant: Nimco Smims 10/26/2021 10/26/2021 022 10:27 AM EDT COVID 19 (Confirmed) 11/11/2021 11/11/2021 5:23 AM EDT COVID-19 Rule-Out 05/16/2022 05/16/2022 05/16/2022 11:05 PM EDT Assessment Noted Time A fall risk assessment has been complete d for the patient 10/11/2021 11:31 AM EDT documented as of this encounter Care Teams Hydroelectric Station Chief Relationship Specialty Start Date End Date Maegan Bermeo MD [address] [place] [address] PCP - General Family Medicine 09/15/21 Audra Wahl LPN VAL[employer] [address] None TCM Nurse 09/27/21 10/27/21 Jessa Park LPN [place] [address] None Registered Nurse 05/26/22 05/26/22 documented as of this encounter
--- OUTSIDE RECORDS SUMMARY | 2025-01-19 15:02 | XMS_ITS | Encounter Summary ---
Author Organization Healthcare Address [address] [place] [address] Care Team Providers Care Wind Instrument Repairer Name Role Phone Maegan Bermeo MD Primary Care Provider [phone] Jessa Park LPN Unavailable Unavailable Reason for Visit * Reason Comments Med Refill Encounter Details Date Type Department Care Team (Late st Contact Info) Description 11/26/2021 Refill Family and Community Medicine [address] [place] [address] Benjie Quezada MD [address] [place] [address] Social History Tobacco Use Types [...] as of this encounter Care Teams Wind Instrument Repairer Relationship Specialty Start Date End Date Maegan Bermeo MD [address] [place] [address] PCP - General Family Medicine 09/15/21 Jessa Park LPN VALUE-[place] [address] None Registered Nurse 05/26/22 05/26/22 documented as of this encounter
--- OUTSIDE RECORDS SUMMARY | 2025-01-19 15:02 | XMS_ITS | Encounter Summary ---
Author Organization Healthcare Address [address] [place] [address] Care Team Providers Care Forging Engineer Name Role Phone Maegan Bermeo MD Primary Care Provider [phone] Encounter Details Date Type Department Care Team (Late st Contact Info) Description 03/11/2024 Orders Only External Location [address] [place] [phone] Provider, External Social History Tobacco Use Types [...] drink first t ken in the morning (EYE-TILT TRAY DRIVER) to steady your nerves or to [...] documented as of this encounter Care Teams Forging Engineer Relationship Specialty Start Date End Date Maegan Bermeo MD [address] [place] [address] PCP - General Family Medicine 09/15/21 documented as of this encounter
--- OUTSIDE RECORDS SUMMARY | 2025-01-19 15:02 | XMS_ITS | Encounter Summary ---
Author Organization Healthcare Address [address] [place] [address] Care Team Providers Care Accredited Farm Manager Name Role Phone Maegan Bermeo MD Primary Care Provider [phone] Encounter Details Date Type Department Care Team (Late st Contact Info) Description 07/10/2024 Orders Only External Location [address] [place] [id number] Provider, External Social History Tobacco Use Types [...] drink first t ken in the morning (EYE-INFORMATION SECURITY CONSULTANT) to steady your nerves or to [...] documented as of this encounter Care Teams Accredited Farm Manager Relationship Specialty Start Date End Date Maegan Bermeo MD [address] [place] [address] PCP - General Family Medicine 09/15/21 documented as of this encounter
--- OUTSIDE RECORDS SUMMARY | 2025-01-19 15:02 | XMS_ITS | Clinical Summary ---
Author Organization [facility] Address [address] [place] [address] Care Team Providers Care News Camera Operator Name Role Phone Maegan Bermeo MD Primary Care Provider [phone] Allergies Active Allergy Reactions Criticality Noted Date [...] is elevated above patient's baseline of around 4261-4065 -most recent echo obtained in October 2021 [...] but pain at time of arrival to [facility] PLAN: -pain control initially with p.r.n. [...] drink first t ken in the morning (EYE-CARE TRAINER) to steady your nerves or to get [...] Additional history exists [facility]-Depression Screening 06/08/2023 06/07/2022 [id number] Vaccine ( season) 2024 01/05/2022, 01/07/2021, 06/11/2020, [...] Adults <6.0% Children and Adolescents <7.5% Source: [place] [employer]. Standards of medical care in diabetes,2017. Diabetes Care.2017:40 (suppl 1):S1-S135. HbA1c assay performed by an ion-exchange chromatography method that is certified traceable to the DCCT. us Maegan Bermeo MD LAB BLOOD ORDERABLES Final Re sult Performing Organization Address City/[facility]/ZIP Co de Phone Number [facility] [address] [place] [address] * Hepatitis C Antibody - ED (09/24/2021 7:52 AM EDT) Hepatitis C Antibody Negative Negative 09/24/2021 9:51 AM EDT [facility] Blood Venous blood specimen / Unknown Venipuncture / Unknown 09/24/2021 7:52 AM EDT 09/24/2021 8:10 AM EDT us Farida Sharif MD LAB BLOOD ORDERABLES Final Res ult [facility] [address] [place] [address] * MAMMOGRAPHY EXTERNAL RESULTS (01/20/2019) Anatomical Region [...] Patient has decision-making capacity? Yes Care Teams News Camera Operator Relationship Specialty Start Date End Date Maegan Bermeo MD [address] [place] [address] PCP - General Family Medicine 09/15/21
--- OUTSIDE RECORDS SUMMARY | 2025-01-19 15:02 | XMS_ITS | Encounter Summary ---
Author Organization Healthcare Address [address] [place] [address] Care Team Providers Care Manager Sound Name Role Phone Maegan Bermeo MD Primary Care Provider [phone] Encounter Details Date Type Department Care Team (Late st Contact Info) Description 07/08/2024 Orders Only External Location [address] [place] [phone] Provider, External Social History Tobacco Use Types [...] drink first t ken in the morning (EYE-REGISTERED DENTAL HYGIENIST) to steady your nerves or to get [...] as of this encounter Care Teams Manager Sound Relationship Specialty Start Date End Date Maegan Bermeo MD [address] [place] [address] PCP - General Family Medicine 09/15/21 documented as of this encounter
--- OUTSIDE RECORDS SUMMARY | 2025-01-19 15:02 | XMS_ITS | Encounter Summary ---
Author Organization Healthcare Address [address] [place] [address] Care Team Providers Care Blow Molding Machine Tender Name Role Phone Maegan Bermeo MD Primary Care Provider [phone] Encounter Details Date Type Department Care Team (Late st Contact Info) Description 07/03/2024 Orders Only External Location [address] [place] [phone] Provider, External Social History Tobacco Use Types [...] drink first t ken in the morning (EYE-PRECINCT POLICE CAPTAIN) to steady your nerves or to get [...] documented as of this encounter Care Teams Blow Molding Machine Tender Relationship Specialty Start Date End Date Maegan Bermeo MD [address] [place] [address] PCP - General Family Medicine 09/15/21 documented as of this encounter
--- OUTSIDE RECORDS SUMMARY | 2025-01-19 15:02 | XMS_ITS | Encounter Summary ---
Author Organization [facility] Address [address] [place] [address] Care Team Providers Care Deployment Technician Name Role Phone Jan Castelan MD Primary Care Provider [phone] Benjie Quezada MD Primary Care Provider Tamika Loomis APRN Primary Care Provider [phone] Maegan Bermeo MD Primary Care Provider [phone] Audra Wahl HOMICIDE SQUAD COMMANDING OFFICER Unavailable Unavailab Jessa Jimenez HOMICIDE SQUAD COMMANDING OFFICER Unavailable Unavailable Reason for Visit * Reason Comments Med Refill Encounter Details Date Type Department Care Team (Late st Contact Info) Description 12/28/2020 Refill Family and Community Medicine [address] [place] [address] Jan Castelan MD [address] [place] [address] Social History Tobacco Use Types [...] appropriate Health Dept. [facility] Integrated Circuit Ic Layout Designer: Nimco Demi 10/26/2021 10/26/2021 022 10:27 AM EDT COVID 19 (Confirmed) 11/11/2021 11/11/2021 022 5:23 AM EDT COVID-19 Rule-Out 05/16/2022 05/16/2022 05/16/2022 11:05 PM EDT documented as of this encounter Care Teams Deployment Technician Relationship Specialty Start Date End Date Jan Castelan MD [address] [place] [address] PCP - General 07/02/20 08/07/21 Benjie Quezada MD [address] [facility] [address] [place] [address] PCP - General Family Medicine 08/08/21 08/30/21 Tamika Loomis APRN [address] [facility] [address] [place] [address] PCP - General Family Medicine 08/31/21 09/14/21 Maegan Bermeo MD [address] [place] [address] PCP - General Family Medicine 09/15/21 Audra Wahl LPN [employer] [place] [address] None TCM Nurse 09/27/21 10/27/21 Jessa Park LPN [employer] [place] [address] None Registered Nurse 05/26/22 05/26/22 documented as of this encounter
--- NOTE | 2025-01-19 15:15 | CA_ITS ---
APPROVED REPORT EXAM: Comprehensive 2D, Doppler, and color-flow Echocardiogram Art Professor: Sunitha Garcia RT(R) Ht: 5 ft 4 in Wt: 213lbs BSA: 2.01 BP: 100/53 mmHg Indications: HFpEF, AFIB, DM, HTN, syncopal episodes Echo Enhancing Agent Indication: Endocardial border delineation Agent(s) / Amount(s) Used: Definity 2 cc 2D Dimensions EF AP4 80.70 % GL Strain -23.0 % M-Mode Dimensions RVDd 3.89 cm (0.9-2.6) LA Diam 4.04 cm (1.9-4.0) LVDd 4.56 cm (3.5-5.7) LVDs 3.40 cm (3.5-5.7) IVSd 1.12 cm (0.6-1.1) PWd 0.76 cm (0.6-1.1) EF (Teich) 50.30% FS 25.40% EDV (Teich) 95.40 mL ESV (Teich) 47.40 mL LV Diastology E Decel Time 203 (160-240 msec) E/A Ratio 2.4 Mitral Valve MV E Max Austen. 103.0 (40-130 cm/s) MV A Velocity 43.0 (40-130 cm/s) E/A Ratio 2.38 MV PHT 60.0 ms Left Ventricle The left ventricle is normal size. Left ventricular systolic function is normal. The left ventricular ejection fraction is within the normal range. There is increased left ventricular wall thickness. There is normal LV segmental wall motion. The left ventricular diastolic function is indeterminate. No left ventricle thrombus noted on this study. LVEF is 65% Right Ventricle The right ventricle is severely dilated. The right ventricular systolic function is moderately to severely reduced. Atria Left atrium is severely dilated. Right atrium is severely dilated. There is no color Doppler evidence of interatrial shunt. Aortic Valve The aortic valve is mildly thickened. There is no hemodynamically significant aortic valvular stenosis. Trace aortic regurgitation is present. Mitral Valve The mitral valve is mildly thickened. No evidence of mitral valve stenosis. Mild mitral regurgitation is present. Tricuspid Valve The tricuspid valve leaflets are thin and pliable. Mild to moderate tricuspid regurgitation. RVSP is 50 mmHg + RA pressure. Pulmonic Valve The pulmonary valve is grossly normal in structure. Mild pulmonic valve regurgitation is present. Great Vessels The aortic root is normal in size. IVC is not well visualized. Pericardium There is no pericardial effusion. Other Information Study Quality: Technically Difficult Conclusion Normal LV systolic function. Severe RV dilation with moderate to severe reduction in RV function. Biatrial dilation. Mild to moderate TR. Mild MR, mild PI. Elevated RVSP 50 mmHg + RA pressure. Electronically signed by : Ruth Carreno MD 01/19/2025 21:52:41
[2025-01-19] MEDS: DEFINITY US ECHO CONTRAST 2ML INJ 2 MG IV (16:10)
--- NOTE | 2025-01-19 16:18 | XR_ITS ---
FINAL REPORT CLINICAL HISTORY: sob states recently discharged from hospital COMPARISON: 11/28/2024 FINDINGS: 2 views of the chest were obtained . There is mild cardiomegaly and mild pulmonary vascular congestion. There is a right lower lobe opacity which could be atelectasis or pneumonia. There is a nodular density projecting over a lower thoracic vertebral body with no discrete nodule on recent CT, favor atelectasis. There is no pneumothorax. Stable, chronic lower thoracic compression fractures are noted. IMPRESSION: Right lower lobe opacity which could be atelectasis or pneumonia. Reviewed, Interpreted and Dictated by Lisa Contreras MD Transcribed by Alexia Julian Authenticated and [facility]
[2025-01-19 17:03] LABS: Hematocrit 40.5 % (37.0-47.0); Hemoglobin 12.3 g/dL (12.2-16.2); Immature Granulocytes % 0.6 %; Mean Corpuscular HGB Conc 30.4 g/dL (31.8-35.4); Mean Corpuscular Hemoglobin 24.9 pg (27.0-31.2); Mean Corpuscular Volume 82.2 fl (81-99); Nucleated Red Blood Cells % 0 %; Platelet Count 617 K/mm3 (142-424); Red Blood Count 4.93 M/mm3 (4.20-5.40); Red Cell Distribution Width-SD 55.4 fL; White Blood Count 14.0 K/mm3 (4.8-10.8)
[2025-01-19 17:55] LABS: Anion Gap 10.6 mEq/L (5-15); Blood Urea Nitrogen 21 mg/dl (7-17); Calcium 9.4 mg/dl (8.4-10.2); Carbon Dioxide 35 mmol/L (22.0-30.0); Chloride 85 mmol/L (98-107); Creatinine,Serum 1.10 mg/dl (0.52-1.04); Estimated Glomerular Filt Rate 49 ml/min (>60); GFR (African American) 59 ML/MIN (>60); Glucose 220 mg/dl (74-100); Potassium 3.6 mmoL/L (3.5-5.1); Sodium 127 mmol/L (136-145)
== END 2025-01-19 23:59 | disposition home or self-care (01) ==
LOC: RT 15:00
PROVIDERS: PCP Internal Medicine; Visit Provider Internal Medicine
DX: I08.8 Other rheumatic multiple valve diseases (principal); I11.0 Hypertensive heart disease with heart failure; I50.43 Acute on chronic combined systolic (congestive) and diastolic (congestive) heart failure; I25.10 Atherosclerotic heart disease of native coronary artery without angina pectoris; E78.2 Mixed hyperlipidemia; I42.9 Cardiomyopathy, unspecified; R91.8 Other nonspecific abnormal finding of lung field; I48.91 Unspecified atrial fibrillation; E11.9 Type 2 diabetes mellitus without complications; R55 Syncope and collapse
CPT/HCPCS: 36415; 71046; 80048; 85025; 93306; Q9957